=== PATIENT | male | born 1945 ===

== ENCOUNTER 2016-08-23 09:31 | Emergency (ER) | payer OTHER ==
[2016-08-23 09:39] VITALS: RESP 18; O2SAT 100
--- NOTE | 2016-08-23 10:08 | C.PDOC ---
History Of Present Illness Patient is a 71 y/o male, with PMHx of HTN, is accompanied by family to the ED for evaluation of left knee and leg pain for the last month. Patient reports uneasiness to walk on left side, he feels "knee is going to give out". Of note, patient walks with a cane. Additionally, patient reports intermittent dizziness for the past week, and states his BP was high in the "200s" when he checked. As per family, they recently moved here, and therefore, do not have a PMD yet, and was unable to fill patient's meds here. Patient ran out of his meds 2 months ago. Otherwise, patient denies headache, current dizziness, weakness, numbness, chest pain, palpitations, shortness of breath, abdominal pain, nausea, fever, chills, or any other associated symptoms at this time. Time Seen by Provider: 08/23/16 09:46 Chief Complaint (Nursing): Lower Extremity Problem/Injury History Per: Patient History/Exam Limitations: no limitations Onset/Duration Of Symptoms: Days (1 month) Current Symptoms Are (Timing): Still Present Recent travel outside of the [place]: No Additional History Per: Family Past Medical History Reviewed: Historical Data, Nursing Documentation, Vital Signs Vital Signs: Last Vital Signs Temp 98 F 08/23/16 11:43 Pulse 89 08/23/16 11:43 Resp 18 08/23/16 11:43 BP 158/80 H 08/23/16 11:43 Pulse Ox 100 08/23/16 11:43 - Medical History PMH: Atrial Fibrillation, HTN, Hyperlipidemia, Seizures Family History: States: Unknown Family Hx - Social History Hx Alcohol Use: No Hx Substance Use: No - Immunization History Hx Tetanus Toxoid Vaccination: No Hx Influenza Vaccination: No Hx Pneumococcal Vaccination: No Review Of Systems Except As Marked, All Systems Reviewed And Found Negative. Constitutional: Negative for: Fever, Chills Cardiovascular: Negative for: Chest Pain, Palpitations Respiratory: Negative for: Cough, Shortness of Breath Gastrointestinal: Negative for: Nausea, Vomiting, Abdominal Pain Musculoskeletal: Positive for: Leg Pain (left) Neurological: Positive for: Dizziness. Negative for: Weakness, Numbness, Headache Physical Exam - Physical Exam Appears: Non-toxic, No Acute Distress Skin: Normal Color, Warm, Dry Head: Atraumatic, Normacephalic Eye(s): bilateral: Normal Inspection, PERRL, EOMI Nose: Normal Oral Mucosa: Moist Neck: Normal ROM, Supple Chest: Symmetrical, No Deformity, No Tenderness Cardiovascular: Rhythm Regular, No Murmur Respiratory: Normal Breath Sounds, No Rales, No Rhonchi, No Wheezing Gastrointestinal/Abdominal: Soft, No Tenderness Extremity: Normal ROM (FROM to all extremities), No Tenderness (no left knee or leg tenderness), No Pedal Edema, No Calf Tenderness, Capillary Refill (< 2 sec.) , No Swelling Pulses: Left Dorsalis Pedis: Normal, Right Dorsalis Pedis: Normal Neurological/Psych: Oriented x3, Normal Speech, Normal Cognition, Normal Motor, Normal Sensation Gait: With Assistance ED Course And Treatment - Laboratory Results Result Diagrams: 08/23/16 10:43 08/23/16 10:43 Lab Interpretation: No Acute Changes ECG: Interpreted By Me, Viewed By Me (Dr Demarco) ECG Rhythm: Atrial Fibrillation, R BBB ECG Interpretation: No Acute Changes Interpretation Of ECG: Afib at 90 bpm with RBB and left anterior fascicular block. No old EKG available for comparison O2 Sat by Pulse Oximetry: 100 (on RA) Pulse Ox Interpretation: Normal - Other Rad Left knee X-Ray: Interpreted by Me, Viewed By Me Interpretation: no effusion, no fracture or other abnormality Progress Note: Labs, EKG, left knee x-ray ordered and reviewed. Labs reviewed showing hypokalemia and low phenytoin level. Patient further treated with KCL and phenytoin. All other labs WNL. EKG shows Afib, no priors available. Family reports he used to take warfarin now takes plavix. Patient reevalauted and is resting in no distress. He has no chest pain or SOB, no dizziness or other complaints. Patient is stable for discharge. Recommend analgesics for any leg pain. Family is requesting refill on all meds, Rx was given. Instruct patient and family important to follow up in the clinic. Disposition Counseled Patient/Family Regarding: Studies Performed, Diagnosis, Need For Followup, Rx Given - Disposition Referrals: [facility] at [facility] [Outside] Disposition: HOME/ ROUTINE Disposition Time: 11:19 Condition: STABLE Additional Instructions: Vaya a blakely mdico o la clnica en 2-5 barakat sin falta, para mas evaluacin. Dundarrach los medicamentos katy indicado. Volver a la kalie de emergencia en cualquier momento si los sntomas persisten o empeoran. Prescriptions: Losartan [Cozaar] 100 mg PO DAILY #30 tab Phenytoin, Extended [Dilantin Kapseals] 100 mg PO TID #60 cer Chlorthalidone [Hygroton] 25 mg PO DAILY #30 tab Atorvastatin [Lipitor] 20 mg PO DAILY #30 tab Metoprolol Tartrate [Lopressor] 25 mg PO DAILY #30 tab NIFEdipine ER [Nifedipine ER] 60 mg PO DAILY #30 ter Instructions: Medicine Refill (ED), Knee Pain (ED) Print Language: HEBREW - POA Present On Arrival: None - Clinical Impression Clinical Impression: Knee pain, left, Medicine refill - PA / RN CARDIOVASCULAR / Resident Statement MD/DO has reviewed & agrees with the documentation as recorded. - Scribe Statement The provider has reviewed the documentation as recorded by the Scribe Chacho Vines All medical record entries made by the Scribe were at my direction and personally dictated by me. I have reviewed the chart and agree that the record accurately reflects my personal performance of the history, physical exam, medical decision making, and the department course for this patient. I have also personally directed, reviewed, and agree with the discharge instructions and disposition.
[2016-08-23 10:51] LABS: RBC URINE 1 /hpf (0-3); URINE BILIRUBIN NEGATIVE (NEGATIVE); URINE BLOOD NEGATIVE (NEGATIVE); URINE COLOR Yellow (YELLOW); URINE GLUCOSE (UA) NORMAL (Normal); URINE KETONE NEGATIVE (NEGATIVE); URINE LEUKOCYTE ESTERASE NEG Leu/uL (Negative); URINE PROTEIN NEGATIVE (NEGATIVE); URINE UROBILINOGEN NORMAL mg/dL (0.2-1.0); WBC URINE < 1 /hpf (0-5)
[2016-08-23 10:53] LABS: BASO % 0.5 % (0.0-2.0); EOS # 0.1 K/uL (0.0-0.7); EOS % 1.6 % (0.0-4.0); LYMPH # 0.9 K/uL (1.0-4.3); LYMPH % 20.3 % (20.0-40.0); MEAN CELL VOLUME 78.8 fL (80.0-94.0); MEAN CORPUSCULAR HEMOGLOBIN 26.3 pg (27.0-31.0); MEAN CORPUSCULAR HGB CONC 33.4 g/dL (33.0-37.0); MEAN PLATELET VOLUME 8.9 fL (7.2-11.7); MONO # 0.4 K/uL (0.0-0.8); MONO % 9.7 % (0.0-10.0); NRBC % 0.1 % (0.0-2.0); RED CELL DISTRIBUTION WIDTH 14.3 % (11.5-14.5); WHITE BLOOD COUNT 4.6 K/uL (4.8-10.8)
[2016-08-23 10:58] LABS: CHLORIDE 99 mmol/L (98-107); INR 1.2; SODIUM 140 mmol/L (132-148)
[2016-08-23 10:59] LABS: POTASSIUM 3.1 mmol/L (3.6-5.2)
[2016-08-23 11:01] LABS: ALB/GLOB RATIO 1.3 (1.0-2.1); ALKALINE PHOSPHATASE 68 U/L (38-126); ALT/SGPT 27 U/L (21-72); AST/SGOT 28 U/L (17-59); BILIRUBIN,TOTAL 0.3 mg/dL (0.2-1.3); BLOOD UREA NITROGEN 15 mg/dL (9-20); CARBON DIOXIDE 26 mmol/L (22-30); GFR AFRICAN-AMERICAN > 60; GLUCOSE,RANDOM 61 mg/dL (75-110); TOTAL PROTEIN 6.7 g/dL (6.3-8.3)
[2016-08-23 11:02] LABS: CALCIUM 8.5 mg/dl (8.6-10.4)
[2016-08-23] MEDS ORDERED: Potassium Chloride 20 mEq ER Tab PO STA (11:03)
[2016-08-23] MEDS ORDERED: Potassium Chloride 20 mEq/15 ml LIQ UD ONE (11:34)
[2016-08-23 11:45] VITALS: BP 158/80; PULSE 89; TEMP 98
--- NOTE | 2016-08-23 15:33 | RAD ---
PROCEDURE: Left knee dated 08/23/2016 HISTORY: pain for 1 month COMPARISON: No prior study available for comparison TECHNIQUE: Three views of the left knee performed. FINDINGS: No evidence of acute displaced fracture nor dislocation. Osseous structures appear intact. Joint space preserved. Suspect trace joint effusion. IMPRESSION: No evidence of acute displaced fracture nor dislocation.
--- NOTE | 2016-08-24 22:20 | CARD ---
APPROVED REPORT EKG Measurement Heart [id number] <Conclusion> Atrial fibrillation Right bundle branch block Left anterior fascicular block Bifascicular block Voltage criteria for left ventricular hypertrophy Cannot rule out Inferior infarct, age undetermined T wave abnormality, consider lateral ischemia Abnormal ECG
== END 2016-08-23 11:46 | disposition home or self-care (01) ==
LOC: C.ER 09:31
DX: M25.562 Pain in left knee (principal); Z76.0 Encounter for issue of repeat prescription; E87.6 Hypokalemia

== ENCOUNTER 2016-10-07 10:03 | Emergency (ER) | payer OTHER ==
[2016-10-07 10:12] VITALS: TEMP 98.1
--- NOTE | 2016-10-07 10:30 | C.PDOC ---
History Of Present Illness A 71 year old male presents to the emergency room requesting medication (Plavix , Dilantin, & Losartan) refills again. [place] and ran out of medication a few days ago. Patient has not made an arrangement to see a physician yet, prompting this ER visit. Patient denies any active complaints at this time. Time Seen by Provider: 10/07/16 10:26 Chief Complaint (Nursing): Med Refill History Per: Patient History/Exam Limitations: no limitations Onset/Duration Of Symptoms: Unknown Current Symptoms Are (Timing): Gone Severity: None Recent travel outside of the [place]: No Past Medical History Reviewed: Historical Data, Nursing Documentation, Vital Signs Vital Signs: Last Vital Signs Temp 98.1 F 10/07/16 10:10 Pulse 72 10/07/16 11:14 Resp 18 10/07/16 11:14 BP 165/75 H 10/07/16 11:14 Pulse Ox 97 10/07/16 11:46 - Medical History PMH: Atrial Fibrillation, HTN, Hyperlipidemia, Seizures Family History: States: Unknown Family Hx - Social History Hx Alcohol Use: No Hx Substance Use: No - Immunization History Hx Tetanus Toxoid Vaccination: No Hx Influenza Vaccination: No Hx Pneumococcal Vaccination: No Review Of Systems Except As Marked, All Systems Reviewed And Found Negative. Physical Exam - Physical Exam Appears: Well, Non-toxic, No Acute Distress Skin: Normal Color, Warm, Dry, No Rash Neurological/Psych: Oriented x3, Normal Speech, Normal Cognition Gait: Steady ED Course And Treatment O2 Sat by Pulse Oximetry: 97 Progress Note: Patient given prescription for medications requested. Patient was seen by a patient field sales representative who facilitated the patient's first clinic appointment for ongoing Rx renewals. Disposition - Disposition Disposition: HOME/ ROUTINE Disposition Time: 10:53 Condition: GOOD Additional Instructions: Make an apt at the clinic for med refills Prescriptions: Clopidogrel [Plavix] 1 tab PO DAILY #30 tab Losartan Potassium 1 tab PO DAILY #30 tablet Phenytoin, Extended [Dilantin Kapseals] 1 cap PO TID #90 cer Forms: Gen Discharge Inst Stateless - Clinical Impression Clinical Impression: Medicine refill - Scribe Statement The provider has reviewed the documentation as recorded by the Scribe James Oates All medical record entries made by the Scribray were at my direction and personally dictated by me. I have reviewed the chart and agree that the record accurately reflects my personal performance of the history, physical exam, medical decision making, and the department course for this patient. I have also personally directed, reviewed, and agree with the discharge instructions and disposition.
[2016-10-07 11:15] VITALS: BP 165/75; PULSE 72; RESP 18
[2016-10-07 11:43] VITALS: O2SAT 97
== END 2016-10-07 11:16 | disposition home or self-care (01) ==
LOC: C.ER 10:03
DX: Z76.0 Encounter for issue of repeat prescription (principal)

== ENCOUNTER 2017-02-04 09:32 | Inpatient (IN) | payer MEDICAID, OTHER ==
[2017-02-04 10:37] LABS: RBC URINE 6 /hpf (0-3); URINE BILIRUBIN NEGATIVE (NEGATIVE); URINE COLOR Yellow (YELLOW); URINE GLUCOSE (UA) 1+ mg/dL (Normal); URINE KETONE NEGATIVE (NEGATIVE); URINE LEUKOCYTE ESTERASE NEG Leu/uL (Negative); URINE PROTEIN 2+ mg/dL (NEGATIVE); URINE UROBILINOGEN NORMAL mg/dL (0.2-1.0); WBC URINE 1 /hpf (0-5)
[2017-02-04 10:38] LABS: CHLORIDE 102 mmol/L (98-107); POTASSIUM 3.6 mmol/L (3.6-5.2); SODIUM 138 mmol/L (132-148)
[2017-02-04 10:40] LABS: BILIRUBIN,TOTAL 0.5 mg/dL (0.2-1.3); GFR AFRICAN-AMERICAN > 60; URINE BLOOD 1+ (NEGATIVE)
[2017-02-04 10:41] LABS: ALKALINE PHOSPHATASE 93 U/L (38-126); ALT/SGPT 68 U/L (21-72); AST/SGOT 68 U/L (17-59); BLOOD UREA NITROGEN 18 mg/dL (9-20); CALCIUM 8.3 mg/dl (8.6-10.4); CARBON DIOXIDE 21 mmol/L (22-30); GLUCOSE,RANDOM 160 mg/dL (75-110); TOTAL PROTEIN 6.5 g/dL (6.3-8.3)
[2017-02-04 10:51] LABS: BASO % 0.2 % (0.0-2.0); EOS % 0.4 % (0.0-4.0); HEMATOCRIT 43.7 % (35.0-51.0); LYMPH # 0.7 K/uL (1.0-4.3); LYMPH % 8.6 % (20.0-40.0); MEAN CELL VOLUME 78.3 fL (80.0-94.0); MEAN CORPUSCULAR HGB CONC 33.2 g/dL (33.0-37.0); MEAN PLATELET VOLUME 8.4 fL (7.2-11.7); MONO # 1.3 K/uL (0.0-0.8); PLATELET COUNT 155 K/uL (130-400); RED CELL DISTRIBUTION WIDTH 17.4 % (11.5-14.5); WHITE BLOOD COUNT 8.5 K/uL (4.8-10.8)
[2017-02-04 11:12] LABS: NEUTROPHIL 65 % (50-75); TOTAL CELLS COUNTED 100
[2017-02-04] MEDS ORDERED: Sodium Chloride 0.9% 1,000 ML IV ONE (12:09)
--- NOTE | 2017-02-04 12:44 | C.PDOC ---
History Of Present Illness 71 year old male presents to the ED with complaints of bodyaches, generalized weakness, decrease in appetite, and bilateral leg pain (left>right) for approximately five days. He denies chest pain, shortness of breath, abdominal pain, nausea, vomiting, diarrhea, or dysuria. Patent has not tried any pain medication at home. Time Seen by Provider: 02/04/17 09:54 Chief Complaint (Nursing): Lower Extremity Problem/Injury History Per: Patient History/Exam Limitations: no limitations Onset/Duration Of Symptoms: Days Current Symptoms Are (Timing): Still Present Severity: Moderate Past Medical History Reviewed: Historical Data, Nursing Documentation, Vital Signs Vital Signs: Last Vital Signs Temp 98.4 F 02/06/17 04:00 Pulse 94 H 02/06/17 11:51 Resp 13 02/06/17 11:51 BP 136/80 02/06/17 11:51 Pulse Ox 100 02/06/17 18:08 - Medical History PMH: Atrial Fibrillation, HTN, Hyperlipidemia, Seizures Family History: States: No Known Family Hx - Social History Hx Alcohol Use: No Hx Substance Use: No - Immunization History Hx Tetanus Toxoid Vaccination: No Hx Influenza Vaccination: No Hx Pneumococcal Vaccination: No Review Of Systems Except As Marked, All Systems Reviewed And Found Negative. Constitutional: Positive for: Weakness (generalized), Other ( body aches and decreased appetite). Negative for: Fever, Chills Cardiovascular: Negative for: Chest Pain, Palpitations Respiratory: Negative for: Cough, Shortness of Breath Gastrointestinal: Negative for: Nausea, Vomiting, Abdominal Pain Genitourinary: Negative for: Dysuria Musculoskeletal: Positive for: Leg Pain (bilateral leg pain, left greater than the right.) Skin: Negative for: Rash Physical Exam - Physical Exam Appears: Well, Non-toxic, No Acute Distress Skin: Warm, Dry Head: Normacephalic Eye(s): bilateral: Normal Inspection Oral Mucosa: Moist Neck: Supple Cardiovascular: Rhythm Regular Respiratory: Normal Breath Sounds, No Rales, No Rhonchi, No Wheezing Gastrointestinal/Abdominal: Normal Exam, Bowel Sounds, Soft, No Tenderness Extremity: Normal ROM, Calf Tenderness (bilateral calf tenderness L>R), Capillary Refill (< 2 sec all digits ), No Deformity, No Swelling, Other (no erythema ) Pulses: Left Dorsalis Pedis: Normal, Right Dorsalis Pedis: Normal Neurological/Psych: Oriented x3, Normal Motor, Normal Sensation ED Course And Treatment - Laboratory Results Result Diagrams: 02/06/17 05:36 02/06/17 05:36 ECG: Interpreted By Me, Viewed By Me (atrial fibrillation 94 bpm, left axis deviation, RBBB, LVH, no acute ST changes) ECG Interpretation: Abnormal O2 Sat by Pulse Oximetry: 100 (room air ) Pulse Ox Interpretation: Normal Progress Note: Blood work, venous doppler ordered and reviewed. Patient given IV NS bolus, IV toradol. As per instrumentation and control technician, Venous Doppler showed no DVT of the bilateral lower extremities and an incidental finding of left popliteal artery is occluded. Patient has pedal pulses B/L, will hold off on anticoagulation at this point until vascular consult/recommendation. - Physician Consult Information Physician Contacted: Alexandra Skinner Outcome Of Conversation: Discussed patient with Dr. Skinner, agrees with admission for elevated ck, rhabdomyolysis, occluded left popliteal artery. Dr. Kaur consulted. Disposition - Disposition Disposition: HOSPITALIZED Disposition Time: 12:46 Condition: STABLE - Clinical Impression Clinical Impression: Popliteal artery occlusion, left, Elevated CK, Rhabdomyolysis - Scribe Statement The provider has reviewed the documentation as recorded by the Scribe Jasmina Wall All medical record entries made by the Scribe were at my direction and personally dictated by me. I have reviewed the chart and agree that the record accurately reflects my personal performance of the history, physical exam, medical decision making, and the department course for this patient. I have also personally directed, reviewed, and agree with the discharge instructions and disposition. Decision To Admit - Pt Status Changed To: Hospital Disposition Of: Inpatient - Admit Certification Admit to Inpatient:: After my assessment, the patient will require hospitalization for at least two midnights. This is because of the severity of symptoms shown, intensity of services needed, and/or the medical risk in this patient being treated as an outpatient. - InPatient: Physician Admission Certification: I certify that this patient requires 2 or more midnights of care for the following reason:: see notes - . Bed Request Type: Regular Admitting Physician: Alexandra Skinner Patient Diagnosis: Popliteal artery occlusion, left, Elevated CK, Rhabdomyolysis
[2017-02-04 13:06] LABS: INR 1.3
[2017-02-04] MEDS ORDERED: Heparin25000 units/250ml 1/2NS 25,000 UNITS/250 ML BAG IV PRN ×2 (15:16→20:59)
--- NOTE | 2017-02-04 16:27 | CP.PCM.HP ---
<Luci FloydDaniel - Last Filed: 02/04/17 17:21> History of Present Illness - History of Present Illness History of Present Illness: HPI: Patient is a 71 year old male with a PMHx of atrial fibrillation, HTN, strokes and epilepsy who presents with left leg pain for 1 day. Pain started in his left calf and radiates up to his thigh. Ambulating makes the pain worse. Patient said he was in tears due to the pain. Patient describes the pain as a "cramping". Patient uses a cane to walk. Patient is not a reliable historian but mentioned that he lives with his daughter and she told him to come to the ER after a possible fall. Patient explains that he has had hypertension for a long time and used to measure his blood pressure at home but does not recently. He says his pressure has been up to 200 systolic in the past. Patient says his last seizure was one year ago. Patient denies headache, dizziness, lightheadedness, cough, abdominal pain, nausea, vomiting, recent illness, or recent travel. As per daughter Pura Arshad ([phone]): Patient has had pain since Thursday on the right leg radiating down. Patient tried taking tylenol, motrin and using warm compresses with no relief. Patient had no appetite Thursday and subjective fevers. Thursday night the pain was so bad that the daughter decided to bring him to the hospital. 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 Patient was on coumadin/ warfarin in the past but was stopped for unknown reason in 2013. PMD: [facility] PMHx: Atrial fibrillation, HTN, Epilepsy, strokes x 10 PSHx: possible Cardiac cath in 1998, patient does not remember the results FHx: Mother had COPD and from pneumonia, Father had SD at 60 years old Social: Denies tobacco and drug use. Patient used to drink socially. Patient lives at home with his and daughter. 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, says he breathed in a lot of smoke during his time working Home Meds: (as per clinic record) Chlorthalidone: 25 mg daily Cozaar: 100 mg daily Dilantin: 100 mg TID Nifedipine: 60 mg daily Lipitor: 20 mg daily Metoprolol tartrate: 25 mg BID Plavix: 75 mg daily Present on Admission - Present on Admission Any Indicators Present on Admission: No History of DVT/PE: No History of Uncontrolled Diabetes: No Urinary Catheter: No Decubitus Ulcer Present: No Review of Systems - Constitutional Constitutional: absent: Fever, Headache, Night Sweats - EENT Eyes: absent: Change in Vision, Diplopia Ears: absent: Decreased Hearing Nose/Mouth/Throat: absent: Nasal Congestion, Sore Throat - Cardiovascular Cardiovascular: Claudication. absent: Chest Pain, Diaphoresis, Leg Edema, Palpitations - Respiratory Respiratory: Cough. absent: Wheezing - Gastrointestinal Gastrointestinal: Diarrhea. absent: Abdominal Pain, Constipation Additional comments: Diarrhea occasionally after milk products - Genitourinary Genitourinary: absent: Difficulty Urinating, Dysuria, Hematuria - Musculoskeletal Musculoskeletal: Muscle Cramps, Myalgias - Integumentary Integumentary: Change in Pigmentation Additional comments: skin color changes on legs bilaterally - Neurological Neurological: absent: Dizziness, Headaches, Lack of Coordination - Endocrine Endocrine: absent: Fatigue, Palpitations Past Patient History - Infectious Disease Hx of Infectious Diseases: None - Past Social History Smoking Status: Never Smoked - CARDIAC Hx Atrial Fibrillation: Yes Hx Hypertension: Yes - NEUROLOGICAL Hx Seizures: Yes - PSYCHIATRIC Hx Substance Use: No - SURGICAL HISTORY Hx Surgeries: Yes Hx Cardiac Catheterization: Yes Meds Allergies/Adverse Reactions: Allergies Allergy/AdvReac Type Severity Reaction Status Date / Time No Known Allergies Allergy Verified 10/07/16 10:15 Physical Exam - Constitutional Appears: Non-toxic, No Acute Distress - Head Exam Head Exam: ATRAUMATIC, NORMAL INSPECTION, NORMOCEPHALIC - Eye Exam Eye Exam: EOMI, Normal appearance - ENT Exam ENT Exam: Mucous Membranes Moist - Neck Exam Neck exam: Positive for: Full Rom. Negative for: Lymphadenopathy - Respiratory Exam Respiratory Exam: Clear to Auscultation Bilateral, NORMAL BREATHING PATTERN. absent: Rales, Rhonchi, Wheezes, Respiratory Distress, Stridor - Cardiovascular Exam Cardiovascular Exam: REGULAR RHYTHM, RRR. absent: Gallop, Rubs, Systolic Murmur - GI/Abdominal Exam GI & Abdominal Exam: Normal Bowel Sounds, Soft. absent: Distended, Firm, Guarding, Tenderness - Extremities Exam Extremities exam: Positive for: calf tenderness, full ROM, tenderness. Negative for: pedal pulses present Additional comments: b/l feet cold to touch - Neurological Exam Neurological exam: Alert, Oriented x3 - Psychiatric Exam Psychiatric exam: Normal Affect, Normal Mood - Skin Skin Exam: Intact, Petechiae Results - Vital Signs Recent Vital Signs: Last Vital Signs Temp 97.8 F 02/04/17 14:59 Pulse 88 02/04/17 15:01 Resp 22 02/04/17 14:59 BP 150/80 02/04/17 14:59 Pulse Ox 99 02/04/17 13:19 - Labs Result Diagrams: 02/04/17 10:47 02/04/17 10:20 Labs: Laboratory Results - last 24 hr 02/04/17 02/04/17 12:52 12:52 PT 14.6 H INR 1.3 APTT 27 Phenytoin 3.6 L Assessment & Plan - Assessment and Plan (Free Text) Assessment: 1. B/L lower extremity pain venous doppler: no DVT, incidental finding of left popliteal artery occluded Vascular surgery, Dr. Kaur consulted, help appreciated CT b/l lower extremities as per Dr. Kaur 2. Uncontrolled HTN Hydralazine 10 mg IVP in ED Troponin:.0900 CK-MB :9.99 Creatinine Kinase: 2158 continue Chlorthalidone 25 mg daily continue Cozaar 100mg daily continue Nifedipine 60 mg daily f/u pro BNP f/u CK-MB f/u lipid profile f/u HgA1c f/u 2nd troponin 3. History of Afib continue Metoprolol Tartrate 25 mg BID cardiology consulted, Dr. Brown, help appreciated Echo on : LVEF- 59% 4. History of Seizure Disorder Continue home medication Dilantin [address] head w/o contrast due to possible fall seizure precautions 5. Prophylactic Measures Pepcid 20mg daily Start Heparin Drip after CT head comes back negative <Alexandra Skinner V - Last Filed: 02/04/17 21:27> Results - Vital Signs Recent Vital Signs: Last Vital Signs Temp 97.8 F 02/04/17 16:00 Pulse 108 H 02/04/17 16:00 Resp 20 02/04/17 16:00 BP 161/83 H 02/04/17 16:00 Pulse Ox 97 02/04/17 16:00 - Labs Result Diagrams: 02/04/17 10:47 08/30/17 10:20 Labs: Laboratory Results - last 24 hr 02/04/17 02/04/17 02/04/17 12:52 12:52 17:11 PT 14.6 H INR 1.3 APTT 27 CK-MB (Mass) 11.1 H Troponin I 0.1190 NT-Pro-B Natriuret Pep 1720 H Phenytoin 3.6 L Attending/Attestation - Attestation I have personally seen and examined this patient.: Yes I have fully participated in the care of the patient.: Yes I have reviewed all pertinent clinical information: Yes Notes (Text): Patient seen, examined and case discussed with day-time resident. Patient is primarily Bulgarian speaking reporting right leg pain and left leg pain which are bothering him. Unclear initially if patient fell at home. Patient does not know his history at time of initial exam. I spoke with his daughter Pura at around 4:30PM to further clarify his history and what brought him in the hospital; since Thursday patient reports prominent leg pains which interfere with ambulation. Family had attempted Tylenol/Motrin for pain relief but did not improve. Daughter had tried warm compresses over the right leg but did not improve. By Thursday, patient did not have much of appetite and daughter reports he had a fever at home. Daughter attributed the fever to the patient's leg and thought it was infected. Last night, she reports the pain was so bad that the patient was moaning in pain that she had to bring him to the hospital. Patient lives with daughter and in apartment, patient did not fall. Patient has hx of arrhythmia per daughter that at one point required Coumadin. She reports patient used to go get INR checks but Coumadin was stopped, but not by doctor in 2013. Patient has hx of multiple strokes, per daughter, 10; last stroke about 2 years ago, resulting in left sided paralysis/weakness per the daughter and patient suffered blindness for 3 months and improved with prescription glasses. Patient also had history of seizures, last seizure about 2 years ago. When I asked about aspirin use, patient's daughter denied patient taking aspirin but no allergy to aspirin. Patient's medication including: Plavix, Dilantin, Lipitor and some medications for blood pressure, which she reports he took today prior coming to hospital today. Patient's clinic EMR reviewed to get further history since patient initially poor historian. Assessment/Plan 1. B/L lower extremity pain * Etiology to consider: peripheral arterial disease; possible rhabdomyolysis * venous doppler: no DVT, incidental finding of left popliteal artery occluded * Vascular surgery, Dr. Kaur consulted, help appreciated * I discussed with vascular suite regarding results of arterial dopplers showing clotting in bilateral legs. Spoke with Dr. Kaur recommend CT of lower extremity (circulation) to further imaging patient's circulation. Discussed with Dr. Kaur later this evening regards results of f/u CT and had spoken with the family including daughter, patient will require surgical intervention (given clotting legs) for OR tomorrow. 2. Uncontrolled HTN * Cardiology consult: Dr. Brown * Likely influenced by pain; hx of hypertension; takes Metoprolol at home?. Per clinic EMR patient is also on Chlorthalidone 25mg daily, Cozaar 100mg PO daily, and Nifedipine 60mg Po daily 3. History of Atrial Fibrillation * cardiology consulted, Dr. Brown, help appreciated * continue Metoprolol Tartrate 25 mg BID * Echo on : LVEF- 59% * Ordered for repeat echocardiogram; patient denies chest pain, denies palpitations; Patient is not on anticoagulation for hx of atrial fibrillation * CHADS: 4: high risk of thromboembolic event; 8.5% risk of event per year if no coumadin * HASBLED: 2 (stroke; age; blood pressure is uncontrolled day but suspect due to pain after conversation with the daughter) * ordered for hgba1c, probnp 4. History of Seizure Disorder * Continue home medication Dilantin 100 mg TID * CT head w/o contrast due to questionable fall-->patient completed CT head * CT Head: no evidence of acute intracranial hemorrhage. Large foci of encephalomalcia in brain suggestive of old infarction. Largest encephalomalacia seen at the right temporal parietal frontal love. Moderate aatrophy and moderate to extensive white mater changes suggestive of chronic microvascular ischemic disease * seizure precautions 5. History of multiple strokes * CT Head: no evidence of acute intracranial hemorrhage. Large foci of encephalomalcia in brain suggestive of old infarction. Largest encephalomalacia seen at the right temporal parietal frontal love. Moderate aatrophy and moderate to extensive white mater changes suggestive of chronic microvascular ischemic disease * Patient per home meds: on statin (lipitor), plavix, and anti-hypertensives * Has residual left side weakness since last stroke 2 years ago where his vision was affected and improved with prescription glasses * Order for a1c, lipid panel, hypercoaguable workup 6. Prophylactic Measures * Pepcid 20mg daily for GI ppx * Start Heparin Drip for anticoagulation given patient has risk of stroke given his atrial fibrillation and patient has acutely clotted peripheral vasculture b/ l; Patient to be scheduled for OR tomorrow per vascular surgery. Patient cannot have thrombolysis given both lower extremities are affected per vascular surgery. * Awaiting official reports
--- NOTE | 2017-02-04 16:39 | CP.PCM.CON ---
History of Present Illness - History of Present Illness History of Present Illness: Patient is a 71 year old male with medical history of atrial fibrillation, HTN, presents to the ED with complaints of bilateral leg pain, right greater than leg , for 4 days. He reports nothing makes it better or worse. Patient currently has pain in his right calf. He denies having leg pains prior to this episode. In the ED, venous duplex was ordered and showed no DVTs and an incidental finding of an occluded left popliteal artery. Patient currently denies chest pain, abdominal pain, difficulty breathing, n/v/d/c, and headaches. PMHx: (as per previous medical records) atrial fibrillation, HTN, hypercholesterolemia, seizures SurgHx: cardiac catheterization, 1998 FamHx: Father- [place] SocHx: denies tobacco, alcohol, and drug use. Allergies: NKDA Medications: "takes medication for heart" does not know what his medications are for, gives them to him daily. Medication as per EMR: Lipitor, Hygroton, Plavix, Cozaar, Metoprolol tartrate, Nifedipine, Phenytoin, Warfarin Review of Systems - Constitutional Constitutional: absent: Fever, Headache - Cardiovascular Cardiovascular: absent: Chest Pain, Dyspnea - Respiratory Respiratory: Dyspnea on Exertion. absent: Dyspnea - Gastrointestinal Gastrointestinal: absent: Abdominal Pain, Constipation, Diarrhea, Nausea - Musculoskeletal Additional comments: leg pain, Right > left; right calf pain - Neurological Neurological: absent: Dizziness, Headaches Past Patient History - Infectious Disease Hx of Infectious Diseases: None - Past Social History Smoking Status: Never Smoked - CARDIAC Hx Atrial Fibrillation: Yes Hx Hypertension: Yes - NEUROLOGICAL Hx Seizures: Yes - PSYCHIATRIC Hx Substance Use: No - SURGICAL HISTORY Hx Surgeries: Yes Hx Cardiac Catheterization: Yes Meds Allergies/Adverse Reactions: Allergies Allergy/AdvReac Type Severity Reaction Status Date / Time No Known Allergies Allergy Verified 10/07/16 10:15 - Medications Medications: Current Medications Chlorthalidone (Hygroton) 25 mg PO DAILY EBONY Famotidine (Pepcid) 20 mg PO DAILY EBONY Losartan Potassium (Cozaar) 100 mg PO DAILY [facility] Metoprolol Tartrate (Lopressor) 25 mg PO DAILY [facility] Nifedipine (Procardia Xl) 60 mg PO DAILY EBONY Phenytoin Sodium (Dilantin) 100 mg PO TID EBONY Physical Exam - Head Exam Head Exam: ATRAUMATIC, NORMAL INSPECTION - Eye Exam Eye Exam: EOMI, Normal appearance - ENT Exam ENT Exam: Mucous Membranes Moist - Respiratory Exam Respiratory Exam: Decreased Breath Sounds, Clear to Auscultation Bilateral. absent: Rales, Rhonchi, Wheezes - Cardiovascular Exam Cardiovascular Exam: Irregular Rhythm, +S1, +S2. absent: REGULAR RHYTHM - GI/Abdominal Exam GI & Abdominal Exam: Normal Bowel Sounds. absent: Soft, Tenderness - Extremities Exam Extremities exam: Positive for: calf tenderness (right calf), pedal edema, pedal pulses present (diminished posterior tibialis and dorsalis pedis) - Neurological Exam Neurological exam: Alert, Oriented x3 - Psychiatric Exam Psychiatric exam: Normal Affect, Normal Mood - Skin Skin Exam: Dry, Intact, Normal Color, Warm Results - Vital Signs Recent Vital Signs: Last Vital Signs Temp 97.8 F 02/04/17 14:59 Pulse 88 02/04/17 15:01 Resp 22 02/04/17 14:59 BP 150/80 02/04/17 14:59 Pulse Ox 99 02/04/17 13:19 - Labs Result Diagrams: 02/04/17 10:47 02/04/17 10:20 Labs: Laboratory Results - last 24 hr 02/04/17 02/04/17 12:52 12:52 PT 14.6 H INR 1.3 APTT 27 Phenytoin 3.6 L Assessment & Plan - Assessment and Plan (Free Text) Assessment: 71 year old male with past medical history of afib, htn, is consulted for incidental finding of left occluded popliteal artery. - Venous duplex: No DVTs bilaterally; incidental finding of left occluded popliteal artery - f/u arterial duplex - f/u arterial PVR/SEG - f/u CTA of lower extremities - Continue medical management as per hospitalist team.
[2017-02-04] MEDS ORDERED: Iodixanol 320 mg/ml 150 ml Bottle IV ONE (16:58)
--- NOTE | 2017-02-04 17:49 | CT ---
PROCEDURE: CT HEAD WITHOUT CONTRAST. HISTORY: hx seizure, possible fall today COMPARISON: None available. TECHNIQUE: Axial computed tomography images were obtained through the head/brain without intravenous contrast. Radiation dose: Total exam DLP = 981.84 mGy-cm. This CT exam was performed using one or more of the following dose reduction techniques: Automated exposure control, adjustment of the mA and/or kV according to patient size, and/or use of iterative reconstruction technique. FINDINGS: HEMORRHAGE: No evidence of acute intracranial hemorrhage intracranial collection mass effect or midline shift. BRAIN: Large encephalomalacia at the left temporal frontal parietal lobe suggestive of old right MCA territory infarct. Focal encephalomalacia also noted at the left posterior parietal occipital lobe suggestive of old infarct. Moderate atrophy and extensive white matter changes suggestive of chronic microvascular ischemic disease. Small encephalomalacia is also noted at the right cerebellum suggestive of old infarction. VENTRICLES: The ventricles are dilated likely due to central atrophy. CALVARIUM: Unremarkable. PARANASAL SINUSES: Unremarkable as visualized. No significant inflammatory changes. MASTOID AIR CELLS: Unremarkable as visualized. No inflammatory changes. OTHER FINDINGS: None. IMPRESSION: No evidence of acute intracranial hemorrhage. Large foci of encephalomalacia in the brain suggestive of old infarction. The largest encephalomalacia seen at the right temporal parietal frontal lobe. Moderate atrophy and moderate to extensive white matter changes suggestive of chronic microvascular ischemic disease.
[2017-02-04 17:53] LABS: TROPONIN I 0.119 ng/mL (0.00-0.120)
--- NOTE | 2017-02-04 19:14 | CP.PCM.CON ---
History of Present Illness - History of Present Illness History of Present Illness: Consultatoin requested for evaluation of afib and HTN ( uncontrolled ) HPI: 71 year old male with past medical history significant for hypertension diabetes mellitus atrial fibrillation multiple recurrent TIA/CVA brought in by her daughter for complaints of right lower extremity pain and discomfort for the last 4 days. According to the daughter he had sustained a CVA with residual left-sided weakness and blindness for 3 months in 2009 he was also admitted to [place] for an episode of seizure and fall. He was apparently on anticoagulation back in 2013 at patient time he was also diagnosed with endocarditis and was maintained on IV antibiotics for 3 weeks. He now presents with bilateral lower extremity pain numbness and cold feet. He underwent a CTA showing CVA or bilateral infrageniculate disease. Dr. Kaur from vascular surgery is evaluating him to proceed to the operating room for possible thrombectomies. As per the ACC AHA guidelines he has very limited activity at baseline and will be scheduled for major vascular surgery for which she falls into high risk. He does have EKG changes with lateral wall T-wave inversions suggestive of ischemic heart disease. According to the daughter for the last 3 months his activity has been severely limited and specially in the last week since the onset of these symptoms he has been severely compromised in his inability to walk. Review of Systems - Review of Systems All systems: reviewed and no additional remarkable complaints except - Constitutional Constitutional: As Per HPI - EENT Eyes: As Per HPI Ears: As Per HPI Nose/Mouth/Throat: As Per HPI - Cardiovascular Cardiovascular: As Per HPI - Respiratory Respiratory: As Per HPI - Gastrointestinal Gastrointestinal: As Per HPI - Genitourinary Genitourinary: As Per HPI - Reproductive: Male Reproductive:Male: As Per HPI - Musculoskeletal Musculoskeletal: As Per HPI - Integumentary Integumentary: As Per HPI - Neurological Neurological: As Per HPI - Psychiatric Psychiatric: As Per HPI - Endocrine Endocrine: As Per HPI - Hematologic/Lymphatic Hematologic: As Per HPI Past Patient History - Infectious Disease Hx of Infectious Diseases: None - Past Medical History & Family History Past Medical History?: Yes Pertinent Family History: +ve for HTN and CVA - Past Social History Smoking Status: Never Smoked - CARDIAC Hx Atrial Fibrillation: Yes Hx Hypertension: Yes - PULMONARY Hx Respiratory Disorders: No - NEUROLOGICAL Hx Seizures: Yes - HEENT Hx HEENT Problems: Yes 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) - RENAL Hx Chronic Kidney Disease: No - ENDOCRINE/METABOLIC Hx Endocrine Disorders: No - HEMATOLOGICAL/ONCOLOGICAL Hx Blood Disorders: No - INTEGUMENTARY Hx Dermatological Problems: No - MUSCULOSKELETAL/RHEUMATOLOGICAL Hx Musculoskeletal Disorders: No Hx Falls: No - GASTROINTESTINAL Hx Gastrointestinal Disorders: No - GENITOURINARY/GYNECOLOGICAL Hx Genitourinary Disorders: No - PSYCHIATRIC Hx Substance Use: No - SURGICAL HISTORY Hx Surgeries: Yes Hx Cardiac Catheterization: Yes - ANESTHESIA Hx Anesthesia: Yes Hx Anesthesia Reactions: No Meds Allergies/Adverse Reactions: Allergies Allergy/AdvReac Type Severity Reaction Status Date / Time No Known Allergies Allergy Verified 10/07/16 10:15 - Medications Medications: Current Medications Chlorthalidone (Hygroton) 25 mg PO DAILY EBONY Famotidine (Pepcid) 20 mg PO DAILY EBONY Losartan Potassium (Cozaar) 100 mg PO DAILY [facility] Metoprolol Tartrate (Lopressor) 25 mg PO DAILY EBONY Nifedipine (Procardia Xl) 60 mg PO DAILY EBONY Phenytoin Sodium (Dilantin) 100 mg PO TID [facility] Last Admin: 02/04/17 17:54 Dose: 100 mg Pneumococcal Polyvalent Vaccine (Pneumovax 23 Vaccine) 0.5 ml IM .ONCE ONE Stop: 02/06/17 10:01 Physical Exam - Constitutional Appears: Well - Head Exam Head Exam: ATRAUMATIC, NORMAL INSPECTION, NORMOCEPHALIC - Eye Exam Eye Exam: EOMI, Normal appearance, PERRL Pupil Exam: NORMAL ACCOMODATION, PERRL - ENT Exam ENT Exam: Mucous Membranes Moist, Normal Exam - Neck Exam Neck exam: Positive for: Normal Inspection - Respiratory Exam Respiratory Exam: Clear to Auscultation Bilateral, NORMAL BREATHING PATTERN - Cardiovascular Exam Cardiovascular Exam: Irregular Rhythm, +S1, +S2, Systolic Murmur - GI/Abdominal Exam GI & Abdominal Exam: Normal Bowel Sounds, Soft. absent: Tenderness - Extremities Exam Extremities exam: Positive for: normal inspection, tenderness Additional comments: absent pulses, cool to touch - Back Exam Back exam: NORMAL INSPECTION - Neurological Exam Neurological exam: Alert, CN II-XII Intact, Oriented x3, Reflexes Normal - Psychiatric Exam Psychiatric exam: Flat Affect, Normal Mood - Skin Skin Exam: Dry, Intact, Mottled, Petechiae, Warm Results - Vital Signs Recent Vital Signs: Last Vital Signs Temp 97.8 F 02/04/17 16:00 Pulse 108 H 02/04/17 16:00 Resp 20 02/04/17 16:00 BP 161/83 H 02/04/17 16:00 Pulse Ox 97 02/04/17 16:00 - Labs Result Diagrams: 02/04/17 10:47 02/04/17 10:20 Labs: Laboratory Results - last 24 hr 02/04/17 02/04/17 02/04/17 12:52 12:52 17:11 PT 14.6 H INR 1.3 APTT 27 CK-MB (Mass) 11.1 H Troponin I 0.1190 NT-Pro-B Natriuret Pep 1720 H Phenytoin 3.6 L Assessment & Plan (1) Atrial fibrillation Assessment and Plan: Increased dose of metoprolol to 50 mg by mouth twice a day Keep patient on IV heparin drip and transitioned to by mouth Coumadin after surgery repeat transthoracic echocardiogram Status: Acute (2) HTN (hypertension), malignant Assessment and Plan: Continue chlorthalidone and losartan increase metoprolol to 50 mg by mouth twice a day continue nifedipine Status: Acute (3) Preop cardiovascular exam Assessment and Plan: As per ACC AHA guidelines he is at high risk for perioperative cardiovascular event secondary to severely limited functional activity and dynamic EKG changes. Status: Acute (4) Critical lower limb ischemia Assessment and Plan: Initiate patient on IV heparin and IV nitroglycerin drip plan for surgical intervention per Dr. Kaur Status: Acute
[2017-02-04] MEDS ORDERED: HYDROmorphone 1 mg/ml ISec IVP PRN (21:35)
--- NOTE | 2017-02-04 21:40 | CT ---
EXAM: CT Angiography Abdomen and Pelvis With Runoff to the Lower Extremities With Intravenous Contrast EXAM DATE/TIME: Exam ordered 02/04/2017 4:05 PM CLINICAL HISTORY: 71 years old, male; Condition or disease; Arterial embolism and thrombosis; Lower extremity; Additional info: Arterial occlusion in b/l lower extremities TECHNIQUE: Axial computed tomographic angiography images of the abdomen, pelvis and lower extremities with intravenous contrast using CT angiography protocol. All CT scans at this facility use one or more dose reduction techniques, viz.: automated exposure control; ma/kV adjustment per patient size (including targeted exams where dose is matched to indication; i.e. head); or iterative reconstruction technique. MIP reconstructed images were created and reviewed. Coronal and sagittal reformatted images were created and reviewed. CONTRAST: 150 mL of VISIPAQUE 320 administered intravenously. COMPARISON: No relevant prior studies available. FINDINGS: Lower thorax: Discoid atelectasis/scar is noted in the dependent portion of both lung bases. . There is a small hiatal hernia. VASCULATURE: Aorta: No acute findings. No abdominal aortic aneurysm. No dissection. Celiac trunk and mesenteric arteries: No acute findings. No occlusion or significant stenosis. Renal arteries: There are 2 left renal arteries. No occlusion or significant stenosis. Right iliac arteries: No acute findings. No occlusion or significant stenosis. Right femoral/popliteal arteries: There is occlusion noted of the right common femoral artery. There is occlusion of the superficial femoral artery and the popliteal artery.. The Arteries are densely calcified. Right calf/foot arteries: The trifurcation is occluded but there is reconstitution of flow in the peroneal artery via collaterals. There appears to be flow in the peroneal artery which continues to the level of the ankle. Left iliac arteries: No acute findings. No occlusion or significant stenosis. Left femoral/popliteal arteries: On the left there is atherosclerotic disease noted of the superficial femoral artery with occlusion noted at the level of the distal superficial femoral artery and popliteal artery. Left calf/foot arteries: There is a reconstitution of the tibioperoneal trunk and anterior tibial artery via collaterals below the trifurcation. The anterior tibial artery occludes in mid calf. The peroneal becomes threadlike and occludes intermittently moving distally towards the foot. There is runoff to the foot via the posterior tibial artery. ABDOMEN: Liver: 2 low density lesions are noted in the lateral segment of the left lobe of the liver measuring 1.3 CM and 0.5 CM respectively maximum diameter. It too small to characterize fully due to their small size. Gallbladder and bile ducts: Unremarkable. No calcified stones. No ductal dilation. Pancreas: Unremarkable. No ductal dilation. No mass. Spleen: Unremarkable. No splenomegaly. Adrenals: Unremarkable. No mass. Kidneys and ureters: There multiple areas of cortical thinning in the right kidney reflection of previous infection/infarction. Stomach and bowel: There is a focally abnormal loop of small bowel noted in the mid abdomen. The wall of the affected loop is mildly thickened and there are modesta-enteric inflammatory changes noted. Distally there are mildly distended small bowel loops.. Appendix: No findings to suggest acute appendicitis. PELVIS: Bladder: Unremarkable. No mass. Reproductive: Unremarkable as visualized. ABDOMEN, PELVIS and LOWER EXTREMITIES: Intraperitoneal space: Unremarkable. No significant fluid collection. No free air. Bones/joints: Degenerative changes are seen in the lumbar spine. . No dislocation. Soft tissues: Unremarkable. Lymph nodes: Unremarkable. No enlarged lymph nodes. IMPRESSION: 1. Occlusion of the right common femoral artery, superficial femoral artery, popliteal artery and popliteal trifurcation 2. Reconstitution of the right peroneal via collaterals with runoff to the foot. 3. Occlusion of the left distal superficial femoral artery and popliteal artery. Reconstitution of the left tibial peroneal trunk and anterior tibial artery via collaterals below the trifurcation. 4. Multifocal short segment disease within the anterior tibial artery and peroneal. There is one vessel runoff to the foot via the posterior tibial artery. 5. 2 low density lesions within the liver not fully characterized due to small size. 6. Focal areas of cortical atrophy in the right kidney reflecting previous infection/infarction. 7.. Focally abnormal loop of small bowel noted within the mid abdomen. The affected loop demonstrates mild wall thickening and perienteric inflammatory change. Differential diagnostic considerations include enteritis, ischemia. No focal mass is seen.
[2017-02-05] MEDS ORDERED: Heparin25000 units/250ml 1/2NS 25,000 UNITS/250 ML BAG IV PRN (01:35)
[2017-02-05] MEDS ORDERED: Nitroglycerin 50mg in D5W 50 MG/250 ML BOTTLE IV SCH (01:45)
[2017-02-05] MEDS ORDERED: Nitroglycerin 2% Ointment Foilpak UD TOP STA (02:16)
[2017-02-05 04:30] LABS: INR 1.2
[2017-02-05] MEDS: Heparin25000 units/250ml 1/2NS 25,000 UNITS/250 ML BAG IV PRN ×2 (04:58→14:01)
[2017-02-05] MEDS: Nitroglycerin 2% Ointment Foilpak UD TOP SCH ×3 (06:00→18:05)
--- NOTE | 2017-02-05 07:16 | CP.PCM.PN ---
Subjective - Date & Time of Evaluation Date of Evaluation: 02/05/17 Time of Evaluation: 07:14 - Subjective Subjective: plan to OR today on IV heparin drip for possible thromboembolism Objective - Vital Signs/Intake and Output Vital Signs (last 24 hours): Temp Pulse Resp BP Pulse Ox 98.7 F 96 H 20 144/81 97 02/05/17 06:00 02/05/17 06:00 02/05/17 06:00 02/05/17 06:00 02/05/17 06:00 Intake and Output: 02/05/17 02/05/17 06:59 18:59 Intake Total 440.2 Output Total 400 Balance 40.2 - Medications Medications: Current Medications Chlorthalidone (Hygroton) 25 mg PO DAILY [facility] Famotidine (Pepcid) 20 mg PO DAILY [facility] Hydromorphone HCl (Dilaudid) 1 mg IVP Q3H PRN PRN Reason: Pain, moderate (4-7) Last Admin: 02/04/17 21:53 Dose: 1 mg Heparin Sodium/Sodium Chloride (Heparin 58130 Units/250ml 1/2 Normal Saline) 25 ,000 units in 250 mls @ 12.701 mls/hr IV .[id number] PRN; Protocol; 14 UNITS/KG/HR PRN Reason: PROTOCOL Last Admin: 02/05/17 04:58 Dose: 14 units/kg/hr, 12.701 mls/hr Losartan Potassium (Cozaar) 100 mg PO DAILY [facility] Metoprolol Tartrate (Lopressor) 50 mg PO BIDBS [facility] Last Admin: 02/05/17 02:30 Dose: 50 mg Nifedipine (Procardia Xl) 60 mg PO DAILY [facility] Nitroglycerin (Nitro-Bid 2% Oint) 1 ea TOP Q6 [facility] Last Admin: 02/05/17 06:00 Dose: 1 ea Phenytoin Sodium (Dilantin) 100 mg PO TID [facility] Last Admin: 02/04/17 17:54 Dose: 100 mg Pneumococcal Polyvalent Vaccine (Pneumovax 23 Vaccine) 0.5 ml IM .ONCE ONE Stop: 02/06/17 10:01 - Labs Labs: PT 14.0 SECONDS (9.7-12.2) H 02/05/17 04:19 INR 1.2 02/05/17 04:19 APTT 39 SECONDS (21-34) H D 02/05/17 04:19 - Constitutional Appears: Well - Head Exam Head Exam: ATRAUMATIC, NORMAL INSPECTION, NORMOCEPHALIC - Eye Exam Eye Exam: EOMI, Normal appearance, PERRL Pupil Exam: NORMAL ACCOMODATION, PERRL - ENT Exam ENT Exam: Mucous Membranes Moist, Normal Exam - Neck Exam Neck Exam: Full ROM, Normal Inspection. absent: Lymphadenopathy - Respiratory Exam Respiratory Exam: Clear to Ausculation Bilateral, NORMAL BREATHING PATTERN - Cardiovascular Exam Cardiovascular Exam: Irregular Rhythm, RRR, +S1, +S2, Murmur - GI/Abdominal Exam GI & Abdominal Exam: Soft, Normal Bowel Sounds. absent: Tenderness - Extremities Exam Extremities Exam: Full ROM, Normal Capillary Refill, Normal Inspection, Tenderness. absent: Joint Swelling, Pedal Edema - Back Exam Back Exam: NORMAL INSPECTION - Neurological Exam Neurological Exam: Alert, Awake, CN II-XII Intact, Oriented x3 - Psychiatric Exam Psychiatric exam: Normal Affect, Normal Mood - Skin Skin Exam: Dry, Intact, Petechiae, Rash, Warm Assessment and Plan (1) Atrial fibrillation Assessment & Plan: rate controlled On metoprolol - dose increased on IV heparin Status: Acute (2) HTN (hypertension), malignant Assessment & Plan: BP stable cont with chlorthalidone, losaratan, nifedipine and metoprolol Status: Acute (3) Preop cardiovascular exam Assessment & Plan: pt high risk for perioperative cardiac event plan to OR today for thrombectomy Status: Acute (4) Critical lower limb ischemia Assessment & Plan: OR today with Status: Acute
[2017-02-05 08:00] LABS: BASO % 0.2 % (0.0-2.0); EOS # 0.1 K/uL (0.0-0.7); EOS % 1.5 % (0.0-4.0); HEMATOCRIT 41.5 % (35.0-51.0); LYMPH % 14.7 % (20.0-40.0); MEAN CELL VOLUME 78.2 fL (80.0-94.0); MEAN CORPUSCULAR HEMOGLOBIN 26.8 pg (27.0-31.0); MEAN CORPUSCULAR HGB CONC 34.2 g/dL (33.0-37.0); MEAN PLATELET VOLUME 8.7 fL (7.2-11.7); MONO % 14.8 % (0.0-10.0); RED CELL DISTRIBUTION WIDTH 17.4 % (11.5-14.5)
[2017-02-05 08:02] LABS: CHLORIDE 101 mmol/L (98-107)
[2017-02-05 08:03] LABS: SODIUM 138 mmol/L (132-148)
[2017-02-05 08:05] LABS: CHOLESTEROL 109 mg/dL (0-199)
[2017-02-05 08:06] LABS: ALB/GLOB RATIO 0.9 (1.0-2.1); ALKALINE PHOSPHATASE 89 U/L (38-126); ALT/SGPT 72 U/L (21-72); AST/SGOT 91 U/L (17-59); BILIRUBIN,TOTAL 0.5 mg/dL (0.2-1.3); BLOOD UREA NITROGEN 18 mg/dL (9-20); CARBON DIOXIDE 25 mmol/L (22-30); GFR AFRICAN-AMERICAN > 60; GLUCOSE,RANDOM 97 mg/dL (75-110)
[2017-02-05 08:07] LABS: CALCIUM 8.2 mg/dl (8.6-10.4); MAGNESIUM 2.4 mg/dL (1.6-2.3); PHOSPHOROUS 3.5 mg/dL (2.5-4.5)
[2017-02-05] MEDS: Sodium Chloride 0.9% 1,000 ML IV SCH ×2 (09:15→16:38)
--- NOTE | 2017-02-05 09:28 | CP.PCM.PN ---
<Eloisa Crowe - Last Filed: 02/05/17 18:36> Subjective - Date & Time of Evaluation Date of Evaluation: 02/05/17 Time of Evaluation: 09:25 - Subjective Subjective: Pt seen and examined at bedside with daughter at bedside to help with translation. Patient feeling much better today. Patient still having b/l leg pain more so on the right than the left. Patient says this has improved since yesterday. There was a question of fall before arrival to the hospital but pt says he has not had a seizure or fall since last year and this was confirmed with the daughter. Patient says he occasionally has diarrhea but only when he drinks milk. Patient denies CP/SOB/palpitations/AP/N/V/D/C/F/C. Objective - Vital Signs/Intake and Output Vital Signs (last 24 hours): Temp Pulse Resp BP Pulse Ox 97.8 F 68 20 141/76 96 02/05/17 08:00 02/05/17 08:00 02/05/17 08:00 02/05/17 08:00 02/05/17 08:00 Intake and Output: 02/05/17 02/05/17 06:59 18:59 Intake Total 440.2 Output Total 400 Balance 40.2 - Medications Medications: Current Medications Chlorthalidone (Hygroton) 25 mg PO DAILY [facility] Famotidine (Pepcid) 20 mg PO DAILY [facility] Hydromorphone HCl (Dilaudid) 1 mg IVP Q3H PRN PRN Reason: Pain, moderate (4-7) Last Admin: 02/04/17 21:53 Dose: 1 mg Heparin Sodium/Sodium Chloride (Heparin 81791 Units/250ml 1/2 Normal Saline) 25 ,000 units in 250 mls @ 12.701 mls/hr IV .[id number] PRN; Protocol; 14 UNITS/KG/HR PRN Reason: PROTOCOL Last Admin: 02/05/17 04:58 Dose: 14 units/kg/hr, 12.701 mls/hr Sodium Chloride (Sodium Chloride 0.9%) 1,000 mls @ 100 mls/hr IV .Q10H [facility] Losartan Potassium (Cozaar) 100 mg PO DAILY [facility] Metoprolol Tartrate (Lopressor) 50 mg PO BIDBS [facility] Last Admin: 02/05/17 02:30 Dose: 50 mg Nifedipine (Procardia Xl) 60 mg PO DAILY [facility] Nitroglycerin (Nitro-Bid 2% Oint) 1 ea TOP Q6 [facility] Last Admin: 02/05/17 06:00 Dose: 1 ea Phenytoin Sodium (Dilantin) 100 mg PO TID [facility] Last Admin: 02/04/17 17:54 Dose: 100 mg Pneumococcal Polyvalent Vaccine (Pneumovax 23 Vaccine) 0.5 ml IM .ONCE ONE Stop: 02/06/17 10:01 - Labs Labs: 02/05/17 07:35 02/05/17 07:35 PT 14.0 SECONDS (9.7-12.2) H 02/05/17 04:19 INR 1.2 02/05/17 04:19 APTT 39 SECONDS (21-34) H D 02/05/17 04:19 - Constitutional Appears: Non-toxic, No Acute Distress - Head Exam Head Exam: ATRAUMATIC - Eye Exam Eye Exam: EOMI - ENT Exam ENT Exam: Mucous Membranes Dry (NPO for Surgery today) - Respiratory Exam Respiratory Exam: Clear to Ausculation Bilateral, NORMAL BREATHING PATTERN - Cardiovascular Exam Cardiovascular Exam: REGULAR RHYTHM, +S1, +S2 - GI/Abdominal Exam GI & Abdominal Exam: Soft, Normal Bowel Sounds. absent: Distended, Tenderness - Extremities Exam Extremities Exam: Calf Tenderness. absent: Pedal Edema Additional comments: Cold LEs more so on the left than the right. Pedal pulses unable to be palpated b/l. - Neurological Exam Neurological Exam: Alert, Awake - Psychiatric Exam Psychiatric exam: Normal Affect, Normal Mood - Skin Skin Exam: Dry, Intact Assessment and Plan - Assessment and Plan (Free Text) Assessment: B/L lower extremity pain * venous doppler: no DVT, incidental finding of left popliteal artery occluded * Vascular surgery, Dr. Kaur consulte * Arterial dopplers showing clotting in bilateral legs. * Dr. Kaur recommend CT of lower extremity to further image patient's circulation. Patient required surgical intervention (given clotting legs) and went to OR 02/05. Uncontrolled HTN * Cardiology consult: Dr. Brown * Likely influenced by pain; hx of hypertension; takes Metoprolol at home?. Per clinic EMR patient is also on Chlorthalidone 25mg daily, Cozaar 100mg PO daily, and Nifedipine 60mg Po daily History of Atrial Fibrillation * cardiology consulted, Dr. Brown, help appreciated * continue Metoprolol Tartrate 25 mg BID * Echo on : LVEF- 59% * Ordered for repeat echocardiogram; patient denies chest pain, denies palpitations; Patient is not on anticoagulation for hx of atrial fibrillation * CHADS: 4: high risk of thromboembolic event; 8.5% risk of event per year if no coumadin * HASBLED: 2 (stroke; age; blood pressure is uncontrolled day but suspect due to pain after conversation with the daughter) * ordered for hgba1c, probnp History of Seizure Disorder * Continue home medication Dilantin 100 mg TID * CT Head: no evidence of acute intracranial hemorrhage. Large foci of encephalomalcia in brain suggestive of old infarction. Largest encephalomalacia seen at the right temporal parietal frontal love. Moderate atrophy and moderate to extensive white mater changes suggestive of chronic microvascular ischemic disease * seizure precautions History of multiple strokes * CT Head: no evidence of acute intracranial hemorrhage. Large foci of encephalomalcia in brain suggestive of old infarction. Largest encephalomalacia seen at the right temporal parietal frontal love. Moderate aatrophy and moderate to extensive white mater changes suggestive of chronic microvascular ischemic disease * Patient per home meds: on statin (lipitor), plavix, and anti-hypertensives * Has residual left side weakness since last stroke 2 years ago where his vision was affected and improved with prescription glasses * Order for a1c, lipid panel, hypercoaguable workup Prophylactic Measures * Pepcid 20mg daily for GI ppx * Start Heparin Drip for anticoagulation given patient has risk of stroke given his atrial fibrillation and patient has acutely clotted peripheral vasculture b/ l; Patient to be scheduled for OR tomorrow per vascular surgery. Patient cannot have thrombolysis given both lower extremities are affected per vascular surgery. * Awaiting official reports <Alexandra Skinner V - Last Filed: 02/07/17 08:18> Objective - Vital Signs/Intake and Output Vital Signs (last 24 hours): Temp Pulse Resp BP Pulse Ox 98.4 F 88 20 125/74 97 02/07/17 08:09 02/07/17 08:09 02/07/17 08:09 02/07/17 08:09 02/07/17 08:09 Intake and Output: 02/07/17 02/07/17 06:59 18:59 Intake Total 527 Output Total 1150 Balance -623 - Medications Medications: Current Medications Chlorthalidone (Hygroton) 25 mg PO DAILY [facility] Last Admin: 02/06/17 09:10 Dose: 25 mg Diltiazem HCl (Cardizem Cd) 180 mg PO DAILY [facility] Last Admin: 02/06/17 15:07 Dose: 180 mg Famotidine (Pepcid) 20 mg PO DAILY [facility] Last Admin: 02/06/17 09:10 Dose: 20 mg Hydromorphone HCl (Dilaudid) 0.5 mg IVP Q3H PRN PRN Reason: Pain, moderate (4-7) Last Admin: 02/06/17 02:41 Dose: 0.5 mg Sodium Chloride (Sodium Chloride 0.9%) 1,000 mls @ 100 mls/hr IV .Q10H [facility] Last Admin: 02/07/17 02:06 Dose: 100 mls/hr Heparin Sodium/Sodium Chloride (Heparin 50703 Units/250ml 1/2 Normal Saline) 25 ,000 units in 250 mls @ 14.515 mls/hr IV .[id number] PRN; Protocol; 16 UNITS/KG/HR PRN Reason: PROTOCOL Last Admin: 02/06/17 20:19 Dose: 16 units/kg/hr, 14.515 mls/hr Losartan Potassium (Cozaar) 100 mg PO DAILY [facility] Last Admin: 02/06/17 15:35 Dose: 100 mg Nifedipine (Procardia Xl) 60 mg PO DAILY [facility] Last Admin: 02/06/17 15:10 Dose: 60 mg Nitroglycerin (Nitro-Bid 2% Oint) 1 ea TOP Q6H PRN PRN Reason: Systolic Blood Pressure >180 Ondansetron HCl (Zofran Inj) 4 mg IVP Q6 PRN PRN Reason: Nausea/Vomiting Phenytoin Sodium (Dilantin) 100 mg PO TID [facility] Last Admin: 02/06/17 17:41 Dose: 100 mg Rosuvastatin Calcium (Crestor) 5 mg PO HS [facility] Last Admin: 02/06/17 22:19 Dose: 5 mg Simethicone (Mylicon Chew Tab) 80 mg PO QID [facility] - Labs Labs: 02/07/17 06:22 02/07/17 06:22 PT 13.8 SECONDS (9.7-12.2) H 02/07/17 02:41 INR 1.2 02/07/17 02:41 APTT 52 SECONDS (21-34) H D 02/07/17 02:41 Attending/Attestation - Attestation I have personally seen and examined this patient.: Yes I have fully participated in the care of the patient.: Yes I have reviewed all pertinent clinical information, including history, physical exam and plan: Yes Notes (Text): This is late computer entry for 02/05/17. Patient seen, examined, and case discussed with day-time resident, cardiology, and vascular surgery. Patient went to OR today for thrombectomy for right lower extremity. Per cardiology, patient is high risk for procedure. Patient seen post-operative in Bed 1 ICU. Discussed with vascular surgery, extensive clot removed from right lower extremity. Patient has co-comittant peripheral vascular disease which is chronic. Patient to continue Heparin drip. Patient was also placed on Cardizem drip for blood pressure control. Pending hypercoagability workup; but likely thromboembolism secondary to atrial fibrillation. 1. Peripheral Arterial Disease, Severe Critical Limb Ischemia * Vascular surgery, Dr. Kaur consulted, help appreciated * Cardiology, Dr. Brown, help appreciated * Venous doppler: no DVT, incidental finding of left popliteal artery occluded * Abdominal Angiography (02/04/17): occlusion of the right common femoral artery , superficial femoral artery, popliteal artery, and popliteal trifurcation. Reconstitution of the right peroneal via collaterals with runoff to the foot. Occlusion of the left distal superficial femoral artery and popliteral artery. Reconstitution of the left tibial peroneal trunk and anterior tibial artery via collaterals below the trifurcation. Multifocal short segment disease within the anterior tibial artery and peroneal. 2 low density lesions within the liver not fully characterized due to small size. Focal areas of cortical atrophy in the right kdiney reflecting previous infection/infarction. Focall abnormal loop of small bowel noted within the mid abdomen. Affected loop demonstrates mild wall thickening and perienteric inflammatory change. * 02/05 Operation: b/l femoral artery thrombectomy w/angiogram-->thrombus removed from right lower extremity * Patient is on heparin drip. 2. Malignant Hypertension * Cardiology consult: Dr. Brown, help appreciated * Patient is on Cardizem Drip in addition to PO medications below. Medications: * Chlorthalidone 25mg daily * Cozaar 100mg PO daily * Procardia XL 60mg PO daily * Nitro-Bid 2% ointment topical Q6HR PRN; The floor overnight unable to do Tridil drip. * Metoprolol 50mg PO BID 3. History of Atrial Fibrillation * Cardiology consulted, Dr. Brown, help appreciated * Echo on 11/13/16: LVEF- 59% * Awaiting repeat echocardiogram post-operative. * CHADS: 4: high risk of thromboembolic event; 8.5% risk of event per year if no coumadin * HASBLED: 2 (stroke; age; blood pressure is uncontrolled day but suspect due to pain after conversation with the daughter) * Heparin Drip * [id number] 5.5 4. History of Seizure Disorder * Continue home medication Dilantin 100 mg TID * CT head w/o contrast due to questionable fall-->patient did not have fall per daughter * CT Head: no evidence of acute intracranial hemorrhage. Large foci of encephalomalcia in brain suggestive of old infarction. Largest encephalomalacia seen at the right temporal parietal frontal love. Moderate aatrophy and moderate to extensive white mater changes suggestive of chronic microvascular ischemic disease * seizure precautions 5. History of multiple strokes * CT Head: no evidence of acute intracranial hemorrhage. Large foci of encephalomalcia in brain suggestive of old infarction. Largest encephalomalacia seen at the right temporal parietal frontal love. Moderate aatrophy and moderate to extensive white mater changes suggestive of chronic microvascular ischemic disease * Patient per home meds: on statin (lipitor), plavix, and anti-hypertensives * Has residual left side weakness since last stroke 2 years ago where his vision was affected and improved with prescription glasses * A1c: 5.5, Lipid Panel: HDL: 30, LDL:69 T Cholestrol:109 * Statin held on admission for consideration for statin induced myopathy prior to doppler results * Pending hypercoaguable workup; likely due to atrial fibrillation * Crestor 5mg POqHS 6. Prophylactic Measures * Pepcid 20mg daily for GI ppx * On Heparin Drip
[2017-02-05] MEDS ORDERED: Lidocaine 1% Inj (20ml) ONE (09:59)
[2017-02-05] MEDS ORDERED: Iodixanol 320 MG/ML 200 ML BOTTLE IV ONE (09:59)
[2017-02-05] MEDS ORDERED: Propofol 10 mg/ml Inj (20 ML) ONE (10:18)
[2017-02-05] MEDS ORDERED: Rocuronium 10 mg/ml (5 ml) ONE ×2 (10:18→12:41)
[2017-02-05] MEDS ORDERED: Nitroglycerin 50mg in D5W 0 MG/0 ML BOTTLE IV ONE (10:22)
[2017-02-05] MEDS ORDERED: Etomidate 20 mg/10ml Inj IV ONE (10:22)
[2017-02-05] MEDS ORDERED: HEPARIN-NS 5,000 UNITS/500 ML 5,000 UNIT/500 ML BAG IV ONE (10:33)
[2017-02-05] MEDS ORDERED: Esmolol 100 mg/10ml Inj IV ONE (10:36)
[2017-02-05] MEDS ORDERED: Lactated Ringer's 1,000 ML IV ONE ×3 (10:40→15:40)
[2017-02-05] MEDS: NIFEdipine 60 mg ER Tab PO SCH (10:50)
[2017-02-05] MEDS ORDERED: Midazolam 2 MG/2 ML VIAL ONE (10:56)
[2017-02-05] MEDS ORDERED: Sodium Chloride 0.9% 500 ML IV ONE ×3 (11:00→12:13)
[2017-02-05] MEDS ORDERED: ceFAZolin 1 gm FROZEN Premix 0 GM/0 ML ML IVPB ONE (11:14)
--- NOTE | 2017-02-05 11:42 | RAD ---
HISTORY: hx a fib, htn COMPARISON: No prior. TECHNIQUE: Chest PA and lateral FINDINGS: LUNGS: There is no acute infiltrate or pleural effusion identified. The costophrenic sulci are sharp. The hemidiaphragms appear somewhat flattened on the lateral view within increased anteroposterior chest diameter which could reflect an element of COPD. Clinically correlate. PLEURA: No significant pleural effusion identified. No pneumothorax apparent. CARDIOVASCULAR: Normal. OSSEOUS STRUCTURES: No significant abnormalities. VISUALIZED UPPER ABDOMEN: Normal. OTHER FINDINGS: None. IMPRESSION: Questionable COPD. No acute infiltrate or pleural effusion identified.
[2017-02-05] MEDS ORDERED: ceFAZolin IV 1 gm in Dextrose 2 GM/100 ML BAG IVPB ONE (11:46)
[2017-02-05] MEDS ORDERED: Neostigmine Methylsulfate 3mg/3ml Syringe IV ONE ×2 (13:00→13:31)
[2017-02-05] MEDS ORDERED: HYDROmorphone 0.5 mg/0.5 ml ISec IVP PRN (13:43)
--- NOTE | 2017-02-05 13:52 | PCM.SURG1 ---
Surgeon's Initial Post Op Note - Surgeon's Notes Surgeon: Dr. Kaur Chief [facility] Division: Dr. Weller PGY-2 Type of Anesthesia: General Endo Pre-Operative Diagnosis: Severe PAD Operative Findings: Left popliteal artery stenosis. Right SFA/profunda artery thrombus Post-Operative Diagnosis: see operative report Operation Performed: B/l femoral artery thrombectomy w/ angiogram Specimen/Specimens Removed: thrombus Estimated Blood Loss: EBL {In ML}: 250 Blood Products Given: N/A Drains Used: No Drains Post-Op Condition: Good Date of Surgery/Procedure: 02/05/17 Time of Surgery/Procedure: 13:52
[2017-02-05] MEDS ORDERED: Nitroglycerin 2% Ointment Foilpak UD TOP PRN (13:54)
--- NOTE | 2017-02-05 21:59 | CARD ---
APPROVED REPORT EKG Measurement Heart [id number] <Conclusion> Atrial fibrillation Left axis deviation Right bundle branch block Voltage criteria for left ventricular hypertrophy Possible Inferior infarct, age undetermined T wave abnormality, consider lateral ischemia Abnormal ECG
[2017-02-05] MEDS: HYDROmorphone 0.5 mg/0.5 ml ISec IVP PRN (23:08)
[2017-02-06] MEDS: Nitroglycerin 2% Ointment Foilpak UD TOP SCH ×3 (00:28→12:32)
[2017-02-06] MEDS: HYDROmorphone 0.5 mg/0.5 ml ISec IVP PRN (02:41)
[2017-02-06] MEDS: Sodium Chloride 0.9% 1,000 ML IV SCH ×3 (04:15→14:32)
[2017-02-06 05:43] LABS: BASO % 0.4 % (0.0-2.0); EOS # 0.1 K/uL (0.0-0.7); EOS % 0.8 % (0.0-4.0); HEMATOCRIT 35.6 % (35.0-51.0); LYMPH # 0.7 K/uL (1.0-4.3); MEAN CELL VOLUME 78.6 fL (80.0-94.0); MEAN CORPUSCULAR HEMOGLOBIN 26.2 pg (27.0-31.0); MEAN CORPUSCULAR HGB CONC 33.4 g/dL (33.0-37.0); MONO # 1.2 K/uL (0.0-0.8); MONO % 16.2 % (0.0-10.0); RED CELL DISTRIBUTION WIDTH 17.4 % (11.5-14.5); WHITE BLOOD COUNT 7.4 K/uL (4.8-10.8)
[2017-02-06 05:59] LABS: INR 1.3
[2017-02-06 06:07] LABS: CHLORIDE 104 mmol/L (98-107); POTASSIUM 4.1 mmol/L (3.6-5.2); SODIUM 138 mmol/L (132-148)
[2017-02-06 06:09] LABS: ALB/GLOB RATIO 0.8 (1.0-2.1); AST/SGOT 97 U/L (17-59); BILIRUBIN,TOTAL 0.4 mg/dL (0.2-1.3); CARBON DIOXIDE 22 mmol/L (22-30); GFR AFRICAN-AMERICAN > 60; TOTAL PROTEIN 5.3 g/dL (6.3-8.3)
[2017-02-06 06:10] LABS: ALKALINE PHOSPHATASE 72 U/L (38-126); ALT/SGPT 64 U/L (21-72); BLOOD UREA NITROGEN 17 mg/dL (9-20); CALCIUM 7.4 mg/dl (8.6-10.4); GLUCOSE,RANDOM 94 mg/dL (75-110); MAGNESIUM 2.1 mg/dL (1.6-2.3); PHOSPHOROUS 3.6 mg/dL (2.5-4.5)
--- NOTE | 2017-02-06 06:59 | CP.PCM.CON ---
History of Present Illness - History of Present Illness History of Present Illness: 71 m being observed in ICU post thrombectomy for acute ischemic leg on the right lower leg, patient had angiography, and exploration b/l. Patient presented with c/o pain in right leg for 4-5 days gradually worsening, inability to walk. W/u with abdominal/ext CTA showed b/l severe atherosclerotic disease, and obstructing clot in proximal femoral art. EBL about 250ml. No swelling or bleeding at groin. Post procedure right feet DP and PT only felt with doppler, on left not obtained with doppler due to severe atherosclerotic disease. PMD: [facility] PMHx: Atrial fibrillation, HTN, Epilepsy, strokes x 10 PSHx: possible Cardiac cath in 1998, patient does not remember the results FHx: Mother had COPD and from pneumonia, Father had NV at 60 years old Social: Denies tobacco and drug use. Patient used to drink socially. Patient lives at home with his and daughter. 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, says he breathed in a lot of smoke during his time working Review of Systems - Review of Systems All systems: reviewed and no additional remarkable complaints except (HPI) Past Patient History - Infectious Disease Hx of Infectious Diseases: None - Past Medical History & Family History Past Medical History?: Yes - Past Social History Smoking Status: Never Smoked Alcohol: None Home Situation {Lives}: With Family Domestic Violence: Negative - CARDIAC Hx Atrial Fibrillation: Yes Hx Hypertension: Yes - PULMONARY Hx Respiratory Disorders: No - NEUROLOGICAL Hx Seizures: Yes - HEENT Hx HEENT Problems: Yes 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) - RENAL Hx Chronic Kidney Disease: No - ENDOCRINE/METABOLIC Hx Endocrine Disorders: No - HEMATOLOGICAL/ONCOLOGICAL Hx Blood Disorders: No - INTEGUMENTARY Hx Dermatological Problems: No - MUSCULOSKELETAL/RHEUMATOLOGICAL Hx Musculoskeletal Disorders: No Hx Falls: No - GASTROINTESTINAL Hx Gastrointestinal Disorders: No - GENITOURINARY/GYNECOLOGICAL Hx Genitourinary Disorders: No - PSYCHIATRIC Hx Substance Use: No - SURGICAL HISTORY Hx Surgeries: Yes Hx Cardiac Catheterization: Yes - ANESTHESIA Hx Anesthesia: Yes Hx Anesthesia Reactions: No Meds Allergies/Adverse Reactions: Allergies Allergy/AdvReac Type Severity Reaction Status Date / Time No Known Allergies Allergy Verified 10/07/16 10:15 - Medications Medications: Current Medications Chlorthalidone (Hygroton) 25 mg PO DAILY [facility] Last Admin: 02/05/17 22:39 Dose: Not Given Famotidine (Pepcid) 20 mg PO DAILY [facility] Last Admin: 02/05/17 18:05 Dose: 20 mg Hydromorphone HCl (Dilaudid) 0.5 mg IVP Q3H PRN PRN Reason: Pain, moderate (4-7) Last Admin: 02/05/17 23:08 Dose: 0.5 mg Heparin Sodium/Sodium Chloride (Heparin 00378 Units/250ml 1/2 Normal Saline) 25 ,000 units in 250 mls @ 12.701 mls/hr IV .[id number] PRN; Protocol; 14 UNITS/KG/HR PRN Reason: PROTOCOL Last Titration: 02/05/17 16:44 Dose: 13.99 units/kg/hr, 12.7 mls/hr Sodium Chloride (Sodium Chloride 0.9%) 1,000 mls @ 100 mls/hr IV .Q10H [facility] Last Admin: 02/05/17 16:38 Dose: 100 mls/hr Diltiazem HCl 125 mg/ Sodium (Chloride) 125 mls @ 5 mls/hr IV .Q24H [facility]; 5 MG/ HR PRN Reason: Protocol Last Admin: 02/05/17 22:37 Dose: Not Given Losartan Potassium (Cozaar) 100 mg PO DAILY [facility] Last Admin: 02/05/17 09:56 Dose: Not Given Metoprolol Tartrate (Lopressor) 50 mg PO BIDBS [facility] Last Admin: 02/05/17 16:49 Dose: 50 mg Nifedipine (Procardia Xl) 60 mg PO DAILY [facility] Last Admin: 02/05/17 10:50 Dose: Not Given Nitroglycerin (Nitro-Bid 2% Oint) 1 ea TOP Q6 [facility] Last Admin: 02/06/17 00:28 Dose: 1 ea Nitroglycerin (Nitro-Bid 2% Oint) 1 ea TOP Q6H PRN PRN Reason: Systolic Blood Pressure >180 Ondansetron HCl (Zofran Inj) 4 mg IVP Q6 PRN PRN Reason: Nausea/Vomiting Phenytoin Sodium (Dilantin) 100 mg PO TID [facility] Last Admin: 02/05/17 18:06 Dose: 100 mg Pneumococcal Polyvalent Vaccine (Pneumovax 23 Vaccine) 0.5 ml IM .ONCE ONE Stop: 02/06/17 10:01 Physical Exam - Additional Findings Additional findings: * HEENT ZACH * Neck Supple * Chest Clear * CVS irregular, no gallop or rub * PA soft NT b/s present * Ext b/l groin dressing no swelling, oozing, right dp and pt observed with doppler, on left not felt with doppler * Skin normal turgor * OUTSOLE MOLDER awake oriented Results - Vital Signs Recent Vital Signs: Last Vital Signs Temp 98.0 F 02/05/17 21:00 Pulse 112 H 02/06/17 00:51 Resp 20 02/06/17 00:51 BP 149/89 02/06/17 00:51 Pulse Ox 100 02/06/17 00:51 - Labs Result Diagrams: 02/06/17 05:36 02/06/17 05:36 Labs: Laboratory Results - last 24 hr 02/05/17 02/05/17 02/05/17 04:19 07:35 07:35 WBC RBC Hgb Hct MCV MCH MCHC RDW Plt Count MPV Neut % (Auto) Lymph % (Auto) Calhoun % (Auto) Eos % (Auto) Baso % (Auto) Neut # Lymph # Calhoun # Eos # Baso # PT 14.0 H INR 1.2 APTT 39 H D Sodium 138 Potassium 4.0 Chloride 101 Carbon Dioxide 25 Anion Gap 16 BUN 18 Creatinine 1.2 Est GFR ( Amer) > 60 Est GFR (Non-Af Amer) 60 POC Glucose (mg/dL) Random Glucose 97 Hemoglobin A1c 5.5 Calcium 8.2 L Phosphorus 3.5 Magnesium 2.4 H Total Bilirubin 0.5 AST 91 H D ALT 72 Alkaline Phosphatase 89 Total Protein 6.0 L Albumin 2.9 L Globulin 3.1 Albumin/Globulin Ratio 0.9 L Triglycerides 67 Cholesterol 109 LDL Cholesterol Direct 69 HDL Cholesterol 30 Blood Type Blood Type Confirm Antibody Screen 02/05/17 02/05/17 02/05/17 07:35 08:01 10:06 WBC 7.0 RBC 5.30 Hgb 14.2 Hct 41.5 MCV 78.2 L MCH 26.8 L MCHC 34.2 RDW 17.4 H Plt Count 187 MPV 8.7 Neut % (Auto) 68.8 Lymph % (Auto) 14.7 L Calhoun % (Auto) 14.8 H Eos % (Auto) 1.5 Baso % (Auto) 0.2 Neut # 4.8 Lymph # 1.0 Calhoun # 1.0 H Eos # 0.1 Baso # 0.0 PT INR APTT 55 H D Sodium Potassium Chloride Carbon Dioxide Anion Gap BUN Creatinine Est GFR ( Amer) Est GFR (Non-Af Amer) POC Glucose (mg/dL) 77 Random Glucose Hemoglobin A1c Calcium Phosphorus Magnesium Total Bilirubin AST ALT Alkaline Phosphatase Total Protein Albumin Globulin Albumin/Globulin Ratio Triglycerides Cholesterol LDL Cholesterol Direct HDL Cholesterol Blood Type Blood Type Confirm Antibody Screen 02/05/17 02/05/17 02/05/17 11:11 16:52 21:09 WBC RBC Hgb Hct MCV MCH MCHC RDW Plt Count MPV Neut % (Auto) Lymph % (Auto) Calhoun % (Auto) Eos % (Auto) Baso % (Auto) Neut # Lymph # Calhoun # Eos # Baso # PT INR APTT Sodium Potassium Chloride Carbon Dioxide Anion Gap BUN Creatinine Est GFR ( Amer) Est GFR (Non-Af Amer) POC Glucose (mg/dL) 89 217 H Random Glucose Hemoglobin A1c Calcium Phosphorus Magnesium Total Bilirubin AST ALT Alkaline Phosphatase Total Protein Albumin Globulin Albumin/Globulin Ratio Triglycerides Cholesterol LDL Cholesterol Direct HDL Cholesterol Blood Type O POSITIVE Blood Type Confirm O POSITIVE Antibody Screen Negative Assessment & Plan - Assessment and Plan (Free Text) Assessment: * S/P b/l leg angiography with thrombecotomy on right, only doppler pulses on right, not on left * Afib controlled rhythm, with multiple CVA not on anticoagulation * Uncontrolled htn * Severe atherosclerosis Plan: * Therapeutic anticoagulation on lovenox * Afib rate control * Monitor BP, continue home meds * Monitor hgb * Monitor in ICU overnight unless complication. * GI prophylaxis
--- NOTE | 2017-02-06 08:45 | CP.PCM.PN ---
Subjective - Date & Time of Evaluation Date of Evaluation: 02/06/17 Time of Evaluation: 08:35 - Subjective Subjective: Patient was seen and examined at bedside. Patient reports his right leg pain has improved s/p operation. He states he tried using the incentive spirometer, but didn't know how to use it properly. 12-point ROS otherwise negative. Objective - Vital Signs/Intake and Output Vital Signs (last 24 hours): Temp Pulse Resp BP Pulse Ox 98.4 F 117 H 13 161/94 H 83 L 02/06/17 04:00 02/06/17 07:00 02/06/17 07:00 02/06/17 06:51 02/06/17 07:00 Intake and Output: 02/06/17 02/06/17 06:59 18:59 Intake Total 2452.4 267.7 Output Total 1025 150 Balance 1427.4 117.7 - Medications Medications: Current Medications Chlorthalidone (Hygroton) 25 mg PO DAILY [facility] Last Admin: 02/05/17 22:39 Dose: Not Given Famotidine (Pepcid) 20 mg PO DAILY [facility] Last Admin: 02/05/17 18:05 Dose: 20 mg Hydromorphone HCl (Dilaudid) 0.5 mg IVP Q3H PRN PRN Reason: Pain, moderate (4-7) Last Admin: 02/06/17 02:41 Dose: 0.5 mg Heparin Sodium/Sodium Chloride (Heparin 30721 Units/250ml 1/2 Normal Saline) 25 ,000 units in 250 mls @ 12.701 mls/hr IV .[id number] PRN; Protocol; 14 UNITS/KG/HR PRN Reason: PROTOCOL Last Titration: 02/05/17 16:44 Dose: 13.99 units/kg/hr, 12.7 mls/hr Sodium Chloride (Sodium Chloride 0.9%) 1,000 mls @ 100 mls/hr IV .Q10H [facility] Last Admin: 02/06/17 04:15 Dose: 100 mls/hr Diltiazem HCl 125 mg/ Sodium (Chloride) 125 mls @ 5 mls/hr IV .Q24H [facility]; 5 MG/ HR PRN Reason: Protocol Last Admin: 02/06/17 02:52 Dose: 5 mg/hr, 5 mls/hr Losartan Potassium (Cozaar) 100 mg PO DAILY [facility] Last Admin: 02/05/17 09:56 Dose: Not Given Metoprolol Tartrate (Lopressor) 50 mg PO BIDBS [facility] Last Admin: 02/06/17 07:36 Dose: 50 mg Nifedipine (Procardia Xl) 60 mg PO DAILY [facility] Last Admin: 02/05/17 10:50 Dose: Not Given Nitroglycerin (Nitro-Bid 2% Oint) 1 ea TOP Q6 [facility] Last Admin: 02/06/17 05:10 Dose: 1 ea Nitroglycerin (Nitro-Bid 2% Oint) 1 ea TOP Q6H PRN PRN Reason: Systolic Blood Pressure >180 Ondansetron HCl (Zofran Inj) 4 mg IVP Q6 PRN PRN Reason: Nausea/Vomiting Phenytoin Sodium (Dilantin) 100 mg PO TID [facility] Last Admin: 02/05/17 18:06 Dose: 100 mg Pneumococcal Polyvalent Vaccine (Pneumovax 23 Vaccine) 0.5 ml IM .ONCE ONE Stop: 02/06/17 10:01 - Labs Labs: 02/06/17 05:36 02/06/17 05:36 PT 14.2 SECONDS (9.7-12.2) H 02/06/17 05:36 INR 1.3 02/06/17 05:36 APTT 44 SECONDS (21-34) H D 02/06/17 05:36 - Constitutional Appears: Non-toxic, No Acute Distress - Head Exam Head Exam: ATRAUMATIC, NORMAL INSPECTION - Eye Exam Eye Exam: EOMI - ENT Exam ENT Exam: Mucous Membranes Moist - Respiratory Exam Respiratory Exam: NORMAL BREATHING PATTERN. absent: Respiratory Distress - Cardiovascular Exam Cardiovascular Exam: Tachycardia, +S1, +S2 - GI/Abdominal Exam GI & Abdominal Exam: Soft. 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 - Extremities Exam Additional comments: No pedal pulses present with doppler b/l. No pedal pulses felt on palpation b/l. LE warm to touch b/l. - Neurological Exam Neurological Exam: Alert, Awake - Psychiatric Exam Psychiatric exam: Normal Affect, Normal Mood - Skin Skin Exam: Intact, Normal Color, Warm Assessment and Plan - Assessment and Plan (Free Text) Assessment: 71 year old male POD#1 s/p b/l femoral artery angioplasty and thrombectomy on the right. - Continue pain management - Monitor BP - Continue vascular checks - Encourage IS use and ambulation - PT ordered
[2017-02-06] MEDS: NIFEdipine 60 mg ER Tab PO SCH ×2 (09:10→15:10)
[2017-02-06] MEDS ORDERED: Pneumococcal 23-Valent Vaccine IM ONE (10:00)
[2017-02-06] MEDS ORDERED: diltiaZEM 180 mg/24 Hours CD Cap PO SCH (14:00)
--- NOTE | 2017-02-06 14:32 | CP.PCM.PN ---
Subjective - Date & Time of Evaluation Date of Evaluation: 02/06/17 Time of Evaluation: 14:15 - Subjective Subjective: Medical Attending Note: Patient seen and examined. Patient reports little bit pain over the right leg. Patient denies headache, denies chest pain, denies cough, denies abdominal pain , denies nausea, denies vomitting, reports had a bowel movement. Objective - Vital Signs/Intake and Output Vital Signs (last 24 hours): Temp Pulse Resp BP Pulse Ox 98.4 F 94 H 13 136/80 99 02/06/17 04:00 02/06/17 11:51 02/06/17 11:51 02/06/17 11:51 02/06/17 11:51 Intake and Output: 02/06/17 02/06/17 06:59 18:59 Intake Total 2452.4 1203.5 Output Total 1025 950 Balance 1427.4 253.5 - Medications Medications: Current Medications Chlorthalidone (Hygroton) 25 mg PO DAILY [facility] Last Admin: 02/06/17 09:10 Dose: 25 mg Diltiazem HCl (Cardizem Cd) 180 mg PO DAILY [facility] Famotidine (Pepcid) 20 mg PO DAILY [facility] Last Admin: 02/06/17 09:10 Dose: 20 mg Hydromorphone HCl (Dilaudid) 0.5 mg IVP Q3H PRN PRN Reason: Pain, moderate (4-7) Last Admin: 02/06/17 02:41 Dose: 0.5 mg Heparin Sodium/Sodium Chloride (Heparin 18028 Units/250ml 1/2 Normal Saline) 25 ,000 units in 250 mls @ 12.701 mls/hr IV .[id number] PRN; Protocol; 14 UNITS/KG/HR PRN Reason: PROTOCOL Last Titration: 02/05/17 16:44 Dose: 13.99 units/kg/hr, 12.7 mls/hr Sodium Chloride (Sodium Chloride 0.9%) 1,000 mls @ 100 mls/hr IV .Q10H [facility] Last Admin: 02/06/17 04:15 Dose: 100 mls/hr Losartan Potassium (Cozaar) 100 mg PO DAILY [facility] Last Admin: 02/06/17 09:10 Dose: 100 mg Metoprolol Tartrate (Lopressor) 50 mg PO BIDBS [facility] Last Admin: 02/06/17 07:36 Dose: 50 mg Nifedipine (Procardia Xl) 60 mg PO DAILY [facility] Last Admin: 02/06/17 09:10 Dose: 60 mg Nitroglycerin (Nitro-Bid 2% Oint) 1 ea TOP Q6 [facility] Last Admin: 02/06/17 12:32 Dose: 1 ea Nitroglycerin (Nitro-Bid 2% Oint) 1 ea TOP Q6H PRN PRN Reason: Systolic Blood Pressure >180 Ondansetron HCl (Zofran Inj) 4 mg IVP Q6 PRN PRN Reason: Nausea/Vomiting Phenytoin Sodium (Dilantin) 100 mg PO TID [facility] Last Admin: 02/06/17 14:02 Dose: 100 mg - Labs Labs: 02/06/17 05:36 02/06/17 05:36 PT 14.2 SECONDS (9.7-12.2) H 02/06/17 05:36 INR 1.3 02/06/17 05:36 APTT 44 SECONDS (21-34) H D 02/06/17 05:36 - Constitutional Appears: Non-toxic, Older Than Stated Age, Chronically Ill - Head Exam Head Exam: NORMAL INSPECTION - Eye Exam Eye Exam: EOMI - ENT Exam ENT Exam: Mucous Membranes Dry - Respiratory Exam Respiratory Exam: Clear to Ausculation Bilateral, NORMAL BREATHING PATTERN - Cardiovascular Exam Cardiovascular Exam: Irregular Rhythm, +S1, +S2 - GI/Abdominal Exam GI & Abdominal Exam: Soft, Normal Bowel Sounds Additional comments: nontender, no guarding, no rebound, +distension - Extremities Exam Additional comments: Difficult to appreciate any DP or PT pulses over both lower extremities Temperature better compared to on admission pain on palpation over the right lowe extremity - Neurological Exam Neurological Exam: Alert, Awake, CN II-XII Intact, Oriented x3 Neuro motor strength exam: Left Upper Extremity: 4, Right Upper Extremity: 5, Left Lower Extremity: 4, Right Lower Extremity: 5 Assessment and Plan - Assessment and Plan (Free Text) Assessment: Assessment/Plan 1. Peripheral Arterial Disease, Severe Critical Limb Ischemia * Vascular surgery, Dr. Kaur consulted, help appreciated * Cardiology, Dr. Brown, help appreciated * Venous doppler: no DVT, incidental finding of left popliteal artery occluded * Abdominal Angiography (02/04/17): occlusion of the right common femoral artery , superficial femoral artery, popliteal artery, and popliteal trifurcation. Reconstitution of the right peroneal via collaterals with runoff to the foot. Occlusion of the left distal superficial femoral artery and popliteral artery. Reconstitution of the left tibial peroneal trunk and anterior tibial artery via collaterals below the trifurcation. Multifocal short segment disease within the anterior tibial artery and peroneal. 2 low density lesions within the liver not fully characterized due to small size. Focal areas of cortical atrophy in the right kdiney reflecting previous infection/infarction. Focall abnormal loop of small bowel noted within the mid abdomen. Affected loop demonstrates mild wall thickening and perienteric inflammatory change. * 02/05 Operation: b/l femoral artery thrombectomy w/angiogram-->thrombus removed * Unable to appreciate pulses by dopplers * Patient is on heparin drip. * Vascular surgery cleared for patient to be on Coumadin. Patient started on Coumadin tonight 02/06/17 2. Malignant Hypertension * Cardiology consult: Dr. Brown, help appreciated * Patient is on Cardizem Drip-=->converted to PO Cardizem CD 180mg 1x/day Medications: * Chlorthalidone 25mg daily * Cozaar 100mg PO daily * Procardia XL 60mg PO daily * Nitro-Bid 2% ointment topical Q6HR PRN * Metoprolol 50mg PO BID-->will discontinue since patient to Cardizem CD today * start Cardizem CD 180mg PO daily * will have holding parameters on medications 3. History of Atrial Fibrillation * Cardiology consulted, Dr. Brown, help appreciated * Echo on 11/13/16: LVEF- 59% * Awaiting repeat echocardiogram * CHADS: 4: high risk of thromboembolic event; 8.5% risk of event per year if no coumadin * HASBLED: 2 (stroke; age; blood pressure is uncontrolled day but suspect due to pain after conversation with the daughter) * Heparin Drip-->to start Coumadin today, monitor INR * [id number] 5.5 4. History of Seizure Disorder * Continue home medication Dilantin 100 mg TID * CT head w/o contrast due to questionable fall-->patient did not have fall per daughter * CT Head: no evidence of acute intracranial hemorrhage. Large foci of encephalomalcia in brain suggestive of old infarction. Largest encephalomalacia seen at the right temporal parietal frontal love. Moderate aatrophy and moderate to extensive white mater changes suggestive of chronic microvascular ischemic disease * seizure precautions 5. History of multiple strokes * CT Head: no evidence of acute intracranial hemorrhage. Large foci of encephalomalcia in brain suggestive of old infarction. Largest encephalomalacia seen at the right temporal parietal frontal love. Moderate aatrophy and moderate to extensive white mater changes suggestive of chronic microvascular ischemic disease * Patient per home meds: on statin (lipitor), plavix, and anti-hypertensives * Has residual left side weakness since last stroke 2 years ago where his vision was affected and improved with prescription glasses * A1c: 5.5, Lipid Panel: HDL: 30, LDL:69 T Cholestrol:109 * Pending hypercoaguable workup; likely due to atrial fibrillation * Crestor 5mg POqHS 6. Prophylactic Measures * Pepcid 20mg daily for GI ppx * Start Heparin Drip bridge to Coumadin * PT eval * OOB
--- NOTE | 2017-02-06 15:01 | VASCLAB ---
PROCEDURE: Lower Extremity Venous Duplex Exam. HISTORY: B/L CALF PAIN, R>L, R/O DVT PRIORS: None. TECHNIQUE: Bilateral common femoral, femoral, popliteal and posterior tibial, peroneal and great saphenous veins were evaluated. Flow was assessed with color Doppler, compressibility, assessment of phasic flow and augmentation response. Report prepared by GALINA Carr FINDINGS: RIGHT: 1. Common Femoral Vein: 1.1. Compressibility - Fully compressible: Thrombus - None : Flow - Phasic: Augmentation -Normal: Reflux - None. 2. Femoral Vein: 2.1. Compressibility - Fully compressible: Thrombus - None : Flow - Phasic: Augmentation -Normal: Reflux - None. 3. Popliteal Vein: 3.1. Compressibility - Fully compressible: Thrombus - None : Flow - Phasic: Augmentation -Normal: Reflux - None. 4. Posterior Tibial Vein: 4.1. Compressibility - Fully compressible: Thrombus - None: Flow - Phasic: Augmentation -Normal: Reflux - None. 5. Peroneal Vein: 5.1. Compressibility - Fully compressible: Thrombus - None: Flow - Phasic: Augmentation -Normal: Reflux - None. 6. Great Saphenous Vein: 6.1. Compressibility - Fully compressible: Thrombus - None: Flow - Phasic: Augmentation - Normal: Reflux - None. LEFT: 1. Common Femoral Vein: 1.1. Compressibility - Fully compressible: Thrombus - None: Flow - Phasic: Augmentation -Normal: Reflux - None. 2. Femoral Vein: 2.1. Compressibility - Fully compressible: Thrombus - None: Flow - Phasic: Augmentation -Normal: Reflux - None. 3. Popliteal Vein: 3.1. Compressibility - Fully compressible: Thrombus - None : Flow - Phasic: Augmentation -Normal: Reflux - None. 4. Posterior Tibial Vein: 4.1. Compressibility - Fully compressible: Thrombus - None: Flow - Phasic: Augmentation -Normal: Reflux - None. 5. Peroneal Vein: 5.1. Compressibility - Fully compressible: Thrombus - None: Flow - Phasic: Augmentation -Normal: Reflux - None. 6. Great Saphenous Vein: 6.1. Compressibility - Fully compressible: Thrombus - None: Flow - Phasic: Augmentation - Normal: Reflux - None. OTHER FINDINGS: Incidental finding: Occluded left popliteal artery. Findings were provided to Segundo Freedman scribe at 11:24 a.m. IMPRESSION: Right: No evidence of deep or superficial vein thrombosis of the right lower extremity. Normal valve function noted of the right side. Left: No evidence of deep or superficial vein thrombosis of the left lower extremity. Normal valve function noted of the left side.
--- NOTE | 2017-02-06 15:03 | VASCLAB ---
STUDY DESCRIPTION: HISTORY: LEFT POPLITEAL ARTERY OCCLUSION PRIORS: None. TECHNIQUE: Pulse volume recording waveforms and segmental pressures of bilateral lower extremities at multiple levels were obtained. Ankle Brachial Indices (ABIs) were calculated. Report prepared by FRANCISCO Jose, RVT RIGHT LOWER EXTREMITY: * Brachial artery: Pressure - 187 mmHg. * High thigh: Pressure - mmHg: Ratio - : PVR waveform - Reduced * Low thigh: Pressure - mmHg: Ratio - PVR waveform: None * Calf: Pressure - mmHg: Ratio - PVR waveform: None * Posterior tibial Artery: Pressure - mmHg: Ratio - PVR waveform: None * Dorsalis pedis Artery: Pressure - mmHg: Ratio - PVR waveform: None * Great toe: Pressure - mmHg: Ratio - PVR waveform: Ankle brachial index (ELIER): LEFT LOWER EXTREMITY: * Brachial artery: Pressure - 176 mmHg. * High thigh: Pressure - mmHg: Ratio - : PVR waveform - Reduced * Low thigh: Pressure - mmHg: Ratio - PVR waveform: Reduced * Calf: Pressure - mmHg: Ratio - PVR waveform: None * Posterior tibial Artery: Pressure - mmHg: Ratio - PVR waveform: None * Dorsalis pedis Artery: Pressure - mmHg: Ratio - PVR waveform: None * Great toe: Pressure - mmHg: Ratio - PVR waveform: Ankle brachial index (ELIER): OTHER FINDINGS: Dr. Skinner notified about the findings. IMPRESSION: This exam reveals undetectable perfusion of both lower extremities, noted at the superficial femoral, popliteal and tibial artery levels.
[2017-02-06] MEDS: diltiaZEM 180 mg/24 Hours CD Cap PO SCH (15:07)
--- NOTE | 2017-02-06 15:08 | VASCLAB ---
PROCEDURE: HISTORY: PAD COMPARISON: None available. TECHNIQUE: Grayscale and duplex Doppler evaluation of the bilateral common femoral, femoral, profunda femoral, popliteal, posterior tibial, anterior tibial and dorsalis pedis arteries was performed. Report prepared by FRANCISCO Jose, RVT FINDINGS: RIGHT LOWER EXTREMITY: * Common Femoral Artery: Peak Systolic Velocity - 53: Doppler Waveform: Triphasic: Plaque description - Homogeneous * Profunda Femoral Artery: Peak Systolic Velocity - 284: Doppler Waveform: Biphasic.: Plaque description - Homogeneous * Femoral Artery o Proximal Segment: Peak Systolic Velocity - 0: Doppler Waveform: Absent: Plaque description - Homogeneous o Middle Segment: Peak Systolic Velocity - 0: Doppler Waveform: Absent: Plaque description - Homogeneous o Distal Segment: Peak Systolic Velocity - 0: Doppler Waveform: Absent: Plaque description - Homogeneous * Popliteal Artery o Proximal Segment: Peak Systolic Velocity - 0: Doppler Waveform: Absent: Plaque description - Homogeneous o Middle Segment: Peak Systolic Velocity - 0: Doppler Waveform: Absent: Plaque description - Homogeneous o Distal Segment: Peak Systolic Velocity - 0: Doppler Waveform: Absent: Plaque description - Calcific * Posterior Tibial Artery: Peak Systolic Velocity - 0: Doppler Waveform: Absent: Plaque description - Calcific * Anterior Tibial Artery: Peak Systolic Velocity - 0: Doppler Waveform: Absent: Plaque description - Calcific * Dorsalis Pedis Artery: Peak Systolic Velocity - 0: Doppler Waveform: Absent: Plaque description - Calcific LEFT LOWER EXTREMITY: * Common Femoral Artery: Peak Systolic Velocity - 94: Doppler Waveform: Triphasic: Plaque description - Homogeneous * Profunda Femoral Artery: Peak Systolic Velocity - 106: Doppler Waveform: Biphasic: Plaque description - Homogeneous * Femoral Artery o Proximal Segment: Peak Systolic Velocity - 79: Doppler Waveform: Monophasic: Plaque description - Homogeneous o Middle Segment: Peak Systolic Velocity - 45: Doppler Waveform: Monophasic: Plaque description - Homogeneous o Distal Segment: Peak Systolic Velocity - 0: Doppler Waveform: Absent: Plaque description - Homogeneous * Popliteal Artery o Proximal Segment: Peak Systolic Velocity - 0: Doppler Waveform: Absent: Plaque description - Homogeneous o Middle Segment: Peak Systolic Velocity - 0: Doppler Waveform: Absent: Plaque description - Homogeneous o Distal Segment: Peak Systolic Velocity - 0: Doppler Waveform: Absent: Plaque description - Calcific * Posterior Tibial Artery: Peak Systolic Velocity - 0: Doppler Waveform: Absent: Plaque description - Calcific * Anterior Tibial Artery: Peak Systolic Velocity - 0: Doppler Waveform: Absent: Plaque description - Calcific * Dorsalis Pedis Artery: Peak Systolic Velocity - 0: Doppler Waveform: Absent: Plaque description - Calcific OTHER FINDINGS: Dr. Skinner notified about the findings. IMPRESSION: RIGHT: Occlusion of the right superficial femoral, popliteal, anterior tibial, posterior tibial and dorsalis pedis arteries. 30-49% stenosis of the right proximal profunda femoral artery. LEFT: Occlusion of the left distal superficial femoral, popliteal, anterior tibial, posterior tibial and dorsalis pedis arteries.
[2017-02-06] MEDS: Heparin25000 units/250ml 1/2NS 25,000 UNITS/250 ML BAG IV PRN (16:27)
--- NOTE | 2017-02-06 17:18 | RAD ---
PROCEDURE: Intraoperative fluoroscopy HISTORY: ISCHEMIA BOTH LEG COMPARISON: Not available TECHNIQUE: Intraoperative fluoroscopy was provided for bilateral lower extremity arteriography. Total time of fluoroscopy was 192.6 seconds. FINDINGS: Multiple fluoroscopic spot films are submitted and are on file for review. IMPRESSION: Fluoroscopy provided.
[2017-02-06] MEDS ORDERED: Simethicone 40 mg/0.6 ml Liquid (30 ml) PO SCH (18:00)
[2017-02-06] MEDS ORDERED: Heparin25000 units/250ml 1/2NS 25,000 UNITS/250 ML BAG IV PRN (20:15)
--- NOTE | 2017-02-07 01:40 | OP ---
PROCEDURE DATE: 02/05/2017 PREOPERATIVE DIAGNOSIS: Bilateral leg ischemia, possible bilateral emboli. PROCEDURE: Femoral embolectomy via groin incision, right and left with intraoperative angiograms. SURGEON: Dr. Kaur. COLOR SPECIALIST: Dr. Weller. ANESTHESIA ADMINISTERED BY: Dr. Osborne and Dr. Anthony. DESCRIPTION OF PROCEDURE: Patient is a 71-year-old man with a history of atrial fibrillation, off anticoagulation with also a history of multiple strokes in the past. Presented with history of severe leg pain, right worse than the left. Preoperative imaging showed that there was thrombosis, ? possible embolus in the right severe disease below the knee. It was difficult to say how much of this was chronic and how much of this was acute. Overall careful history from the patient appeared that he went from the right leg and a visible thrombus was an relatively acute event over the past few days while distally he had severe peripheral vascular disease. OPERATIVE FINDINGS: 1. Completion angiography failed to reveal evidence of any named vessels below the knee on both sides, nonetheless we removed approximately 25 cm long clot from the right common femoral and superficial femoral artery, with brisk restitution flow into the leg. Proximally we made multiple negative passes without retrieving any clot. 2. left side no clot was retrieved INDICATION: This is a 71-year-old man with a history extensive peripheral vascular disease who presented with increasing right leg pain. At that time, he underwent emergency bilateral exploration with retrieval of a great deal of clot from the right side, the common femoral, superficial femoral and on the left side, no clot. After closing the groins without these patches, we closed the wounds carefully in the groin and terminated the procedure. BLOOD LOSS: 250 plus mL. OPERATION CARRIED OUT: Bilateral femoral embolectomy by groin incision and angiography. Desmond Kaur Jr., MD [facility]
[2017-02-07] MEDS: Sodium Chloride 0.9% 1,000 ML IV SCH ×4 (02:05→21:36)
[2017-02-07 02:53] LABS: INR 1.2
[2017-02-07 06:31] LABS: BASO % 0.4 % (0.0-2.0); EOS # 0.1 K/uL (0.0-0.7); EOS % 1.2 % (0.0-4.0); HEMATOCRIT 35.9 % (35.0-51.0); LYMPH % 10.8 % (20.0-40.0); MEAN CELL VOLUME 78.4 fL (80.0-94.0); MEAN CORPUSCULAR HEMOGLOBIN 26.6 pg (27.0-31.0); MEAN CORPUSCULAR HGB CONC 33.9 g/dL (33.0-37.0); MEAN PLATELET VOLUME 8.7 fL (7.2-11.7); MONO % 10.6 % (0.0-10.0); NRBC % 0.1 % (0.0-2.0); RED CELL DISTRIBUTION WIDTH 16.9 % (11.5-14.5); WHITE BLOOD COUNT 9.5 K/uL (4.8-10.8)
[2017-02-07 07:06] LABS: ALB/GLOB RATIO 1.1 (1.0-2.1); ALKALINE PHOSPHATASE 74 U/L (38-126); ALT/SGPT 66 U/L (21-72); AST/SGOT 108 U/L (17-59); BILIRUBIN,TOTAL 0.3 mg/dL (0.2-1.3); BLOOD UREA NITROGEN 15 mg/dL (9-20); CALCIUM 7.9 mg/dl (8.6-10.4); CARBON DIOXIDE 21 mmol/L (22-30); CHLORIDE 102 mmol/L (98-107); GFR AFRICAN-AMERICAN > 60; GLUCOSE,RANDOM 99 mg/dL (75-110); POTASSIUM 3.7 mmol/L (3.6-5.2); SODIUM 134 mmol/L (132-148)
[2017-02-07] MEDS: NIFEdipine 60 mg ER Tab PO SCH (09:43)
[2017-02-07] MEDS: Simethicone 80 mg Chewtab PO SCH ×4 (09:44→21:53)
[2017-02-07] MEDS: diltiaZEM 180 mg/24 Hours CD Cap PO SCH (09:44)
--- NOTE | 2017-02-07 11:45 | CP.PCM.PN ---
Subjective - Date & Time of Evaluation Date of Evaluation: 02/07/17 Time of Evaluation: 06:30 - Subjective Subjective: Vascular Surgery- Dr. Kaur Pt S&E at bedside this AM. Is confused to time during encounter. Pt states pain in leg is significantly better. Dressing C/D/I Objective - Vital Signs/Intake and Output Vital Signs (last 24 hours): Temp Pulse Resp BP Pulse Ox 98.4 F 88 20 125/74 97 02/07/17 08:09 02/07/17 08:09 02/07/17 08:09 02/07/17 08:09 02/07/17 08:09 Intake and Output: 02/07/17 02/07/17 06:59 18:59 Intake Total 527 Output Total 1150 Balance -623 - Medications Medications: Current Medications Chlorthalidone (Hygroton) 25 mg PO DAILY [facility] Last Admin: 02/06/17 09:10 Dose: 25 mg Diltiazem HCl (Cardizem Cd) 180 mg PO DAILY [facility] Last Admin: 02/07/17 09:44 Dose: 180 mg Famotidine (Pepcid) 20 mg PO DAILY [facility] Last Admin: 02/07/17 09:44 Dose: 20 mg Hydromorphone HCl (Dilaudid) 0.5 mg IVP Q3H PRN PRN Reason: Pain, moderate (4-7) Last Admin: 02/06/17 02:41 Dose: 0.5 mg Sodium Chloride (Sodium Chloride 0.9%) 1,000 mls @ 100 mls/hr IV .Q10H [facility] Last Admin: 02/07/17 02:06 Dose: 100 mls/hr Heparin Sodium/Sodium Chloride (Heparin 58511 Units/250ml 1/2 Normal Saline) 25 ,000 units in 250 mls @ 14.515 mls/hr IV .[id number] PRN; Protocol; 16 UNITS/KG/HR PRN Reason: PROTOCOL Last Admin: 02/06/17 20:19 Dose: 16 units/kg/hr, 14.515 mls/hr Losartan Potassium (Cozaar) 100 mg PO DAILY [facility] Last Admin: 02/07/17 09:44 Dose: 100 mg Nifedipine (Procardia Xl) 60 mg PO DAILY [facility] Last Admin: 02/07/17 09:43 Dose: 60 mg Nitroglycerin (Nitro-Bid 2% Oint) 1 ea TOP Q6H PRN PRN Reason: Systolic Blood Pressure >180 Ondansetron HCl (Zofran Inj) 4 mg IVP Q6 PRN PRN Reason: Nausea/Vomiting Phenytoin Sodium (Dilantin) 100 mg PO TID [facility] Last Admin: 02/07/17 09:44 Dose: 100 mg Rosuvastatin Calcium (Crestor) 5 mg PO HS [facility] Last Admin: 02/06/17 22:19 Dose: 5 mg Simethicone (Mylicon Chew Tab) 80 mg PO QID [facility] Last Admin: 02/07/17 09:44 Dose: 80 mg - Labs Labs: 02/07/17 06:22 02/07/17 06:22 PT 13.8 SECONDS (9.7-12.2) H 02/07/17 02:41 INR 1.2 02/07/17 02:41 APTT 41 SECONDS (21-34) H D 02/07/17 11:05 - Constitutional Appears: No Acute Distress - Eye Exam Eye Exam: EOMI - ENT Exam ENT Exam: Mucous Membranes Moist - Respiratory Exam Respiratory Exam: NORMAL BREATHING PATTERN. absent: Accessory Muscle Use, Rales , Rhonchi - Cardiovascular Exam Cardiovascular Exam: +S1, +S2 Additional comments: non palpable non-dopplerable distal R LE pulses - GI/Abdominal Exam GI & Abdominal Exam: Soft, Normal Bowel Sounds. absent: Distended, Tenderness Additional comments: 71M s/p b/l femoral artery angioplasty and R [employer] thrombectomy POD # 2. - Continue pain management - Monitor BP - Continue vascular checks - Encourage IS use and ambulation - further recs per Dr. Vincent Issa PGY1 - Neurological Exam Neurological Exam: Alert, Awake, Oriented x3 - Psychiatric Exam Psychiatric exam: Normal Affect - Skin Skin Exam: Normal Color
--- NOTE | 2017-02-07 11:46 | CARD ---
APPROVED REPORT EXAM: Two-dimensional and M-mode echocardiogram with Doppler and color Doppler. Other Information Quality : Technically DifficultRhythm : Atrial Fibrillation RISK FACTORS Hypertension 2D DIMENSIONS IVSd1.6 (0.7-1.1cm)LVDd4.8 (3.9-5.9cm) LVOT Diameter2.3 (1.8-2.4cm)PWd1.3 (0.7-1.1cm) LVEF (%)60.0 (>50%) M-Mode DIMENSIONS Left Atrium (MM)3.99 (2.5-4.0cm)Aortic Root4.06 (2.2-3.7cm) Aortic Cusp Exc.2.40 (1.5-2.0cm) Aortic Valve AoV Peak Diavyxzw856.4cm/sAoV VTI37.2cmAO Peak GR.26mmHg LVOT Peak Smmzpdgw929.9cm/sLVOT VTI20.12cmAO Mean GR.15mmHg CANELO (VMAX)2.16kw4NFA (VTI)2.22cm2 Mitral Valve E/A ratio0.0 TDI E/Lateral E'0.0E/Medial E'0.0 Tricuspid Valve TR Peak Mzllivhg269gn/sTR Peak Gr.77ioBqHAAW41awHi LEFT VENTRICLE The left ventricle is normal size. There is mild concentric left ventricular hypertrophy. Left ventricle systolic function is normal. The Ejection Fraction is 55-60%. There is normal LV segmental wall motion. The left ventricular diastolic function is normal. No left ventricle thrombus noted on this study. RIGHT VENTRICLE The right ventricle is normal size. The right ventricular systolic function is normal. ATRIA The left atrium size is normal. The right atrium size is normal. AORTIC VALVE The aortic valve is moderately sclerotic. The aortic valve is trileaflet. There is moderate aortic regurgitation. There is no aortic valvular stenosis. There is no aortic valvular vegetation. TRICUSPID VALVE The tricuspid valve is normal in structure. There is trace to mild tricuspid regurgitation. Right ventricular systolic pressure is estimated at less than 30 mmHg. There is no pulmonary hypertension. There is no tricuspid valve prolapse or vegetation. There is no tricuspid valve stenosis. PULMONIC VALVE The pulmonic valve is not well visualized. GREAT VESSELS There is mild aortic root dilatation. The ascending aorta is Mildly dilated. The IVC is normal in size and collapses >50% with inspiration. PERICARDIAL EFFUSION There is no pericardial effusion. There is no pleural effusion. <Conclusion> Technically difficult study. There is mild concentric left ventricular hypertrophy. Left ventricle systolic function is normal. The Ejection Fraction is 55-60%. The left ventricular diastolic function is normal. The right ventricle is normal size. The right ventricular systolic function is normal. The left atrium size is normal. The right atrium size is normal. There is moderate aortic regurgitation. There is trace to mild tricuspid regurgitation. The aortic root and ascending aorta are mildly dilated.
[2017-02-07] MEDS: Heparin25000 units/250ml 1/2NS 25,000 UNITS/250 ML BAG IV PRN (13:10)
--- NOTE | 2017-02-07 15:57 | CP.PCM.PN ---
Subjective - Date & Time of Evaluation Date of Evaluation: 02/07/17 Time of Evaluation: 14:10 - Subjective Subjective: Medical Attending Note Patient seen, examined and case discussed with medicine day-time resident. Assistance with language translation, Elda, patient's nurse at bedside. Patient is awake, alert, oriented X3. patient is aware he in the hospital and awaiting his who is coming in later today. Patient reports he has had bowel movement and is urinating. Patient denies chest pain, denies palpitations, denies headache. Explained to the patient he has peripheral vascular disease, and extensive clot was removed from the right leg lower extremity. patient also understands will be on blood thinner for the rest of his life unless otherwise. Objective - Vital Signs/Intake and Output Vital Signs (last 24 hours): Temp Pulse Resp BP Pulse Ox 98.4 F 88 20 125/74 97 02/07/17 08:09 02/07/17 08:09 02/07/17 08:09 02/07/17 08:09 02/07/17 08:09 Intake and Output: 02/07/17 02/07/17 06:59 18:59 Intake Total 527 Output Total 1150 Balance -623 - Medications Medications: Current Medications Chlorthalidone (Hygroton) 25 mg PO DAILY [facility] Last Admin: 02/07/17 14:55 Dose: 25 mg Diltiazem HCl (Cardizem Cd) 180 mg PO DAILY [facility] Last Admin: 02/07/17 09:44 Dose: 180 mg Famotidine (Pepcid) 20 mg PO DAILY [facility] Last Admin: 02/07/17 09:44 Dose: 20 mg Hydromorphone HCl (Dilaudid) 0.5 mg IVP Q3H PRN PRN Reason: Pain, moderate (4-7) Last Admin: 02/06/17 02:41 Dose: 0.5 mg Sodium Chloride (Sodium Chloride 0.9%) 1,000 mls @ 100 mls/hr IV .Q10H [facility] Last Admin: 02/07/17 02:06 Dose: 100 mls/hr Heparin Sodium/Sodium Chloride (Heparin 48352 Units/250ml 1/2 Normal Saline) 25 ,000 units in 250 mls @ 16.329 mls/hr IV .[id number] PRN; Protocol; 18 UNITS/KG/HR PRN Reason: PROTOCOL Last Admin: 02/07/17 13:10 Dose: 18 units/kg/hr, 16.329 mls/hr Losartan Potassium (Cozaar) 100 mg PO DAILY [facility] Last Admin: 02/07/17 09:44 Dose: 100 mg Nifedipine (Procardia Xl) 60 mg PO DAILY [facility] Last Admin: 02/07/17 09:43 Dose: 60 mg Nitroglycerin (Nitro-Bid 2% Oint) 1 ea TOP Q6H PRN PRN Reason: Systolic Blood Pressure >180 Ondansetron HCl (Zofran Inj) 4 mg IVP Q6 PRN PRN Reason: Nausea/Vomiting Phenytoin Sodium (Dilantin) 100 mg PO TID [facility] Last Admin: 02/07/17 13:09 Dose: 100 mg Rosuvastatin Calcium (Crestor) 5 mg PO HS [facility] Last Admin: 02/06/17 22:19 Dose: 5 mg Simethicone (Mylicon Chew Tab) 80 mg PO QID [facility] Last Admin: 02/07/17 13:09 Dose: 80 mg - Labs Labs: 02/07/17 06:22 02/07/17 06:22 PT 13.8 SECONDS (9.7-12.2) H 02/07/17 02:41 INR 1.2 02/07/17 02:41 APTT 41 SECONDS (21-34) H D 02/07/17 11:05 - Constitutional Appears: Non-toxic, No Acute Distress - Head Exam Head Exam: NORMAL INSPECTION - Eye Exam Eye Exam: EOMI - ENT Exam ENT Exam: Mucous Membranes Moist - Respiratory Exam Respiratory Exam: Clear to Ausculation Bilateral, NORMAL BREATHING PATTERN. absent: Rales, Rhonchi, Wheezes - Cardiovascular Exam Cardiovascular Exam: Irregular Rhythm, +S1, +S2 - GI/Abdominal Exam GI & Abdominal Exam: Soft, Normal Bowel Sounds. absent: Distended (improved; less gasey), Firm, Guarding, Rigid, Tenderness, Rebound - Extremities Exam Extremities Exam: Pedal Edema (trace), Tenderness (right lower extremity) Additional comments: difficult to palpate any appreciate pulses leg appears warm - Neurological Exam Neurological Exam: Alert, Awake, Oriented x3 - Skin Skin Exam: Dry, Intact, Normal Color, Warm Assessment and Plan - Assessment and Plan (Free Text) Assessment: Assessment/Plan 1. Peripheral Arterial Disease, Severe Critical Limb Ischemia * Vascular surgery, Dr. Kaur consulted, help appreciated * Cardiology, Dr. Brown, help appreciated * Venous doppler: no DVT, incidental finding of left popliteal artery occluded * Abdominal Angiography (02/04/17): occlusion of the right common femoral artery , superficial femoral artery, popliteal artery, and popliteal trifurcation. Reconstitution of the right peroneal via collaterals with runoff to the foot. Occlusion of the left distal superficial femoral artery and popliteral artery. Reconstitution of the left tibial peroneal trunk and anterior tibial artery via collaterals below the trifurcation. Multifocal short segment disease within the anterior tibial artery and peroneal. 2 low density lesions within the liver not fully characterized due to small size. Focal areas of cortical atrophy in the right kdiney reflecting previous infection/infarction. Focall abnormal loop of small bowel noted within the mid abdomen. Affected loop demonstrates mild wall thickening and perienteric inflammatory change. * 02/05 Operation: b/l femoral artery thrombectomy w/angiogram-->thrombus removed * Unable to appreciate pulses by dopplers. Leg feels warm * Vascular surgery cleared for patient to be on Coumadin. * Heparin drip to be bridged to Coumadin. F/u INR; Patient to be given Coumadin 5mg PO tonight. 2. Malignant Hypertension * Cardiology consult: Dr. Brown, help appreciated * Patient was on Cardizem Drip-=->converted to PO Cardizem CD 180mg 1x/day * Blood pressure controlled on current regimen as below: Medications: * Chlorthalidone 25mg daily * Cozaar 100mg PO daily * Procardia XL 60mg PO daily * Cardizem CD 180mg PO daily * will have holding parameters on medications 3. History of Atrial Fibrillation * Cardiology consulted, Dr. Brown, help appreciated * Echo on 11/13/16: LVEF- 59% * Echocardiogram (completed post-operative): mild concentric left ventricular hypertrophy. Left ventricle systolic function is inormal. EF: 55-60%. left ventricular diastolic function is normal. Right ventricle is normal size. Right ventricular systolic function is normal. Left atrium size is normal. Right atrial size is normal. Moderate aortic regurgitation. Trace to mild tricuspid regurgitation. Aortic root and ascending aorta are mildly dilated * CHADS: 4: high risk of thromboembolic event; 8.5% risk of event per year if no coumadin * HASBLED: 2 (stroke; age; blood pressure is uncontrolled day but suspect due to pain after conversation with the daughter) * Heparin Drip-->to start Coumadin today, monitor INR * [id number] 5.5 4. History of Seizure Disorder * Continue home medication Dilantin 100 mg TID * CT head w/o contrast due to questionable fall-->patient did not have fall per daughter * CT Head: no evidence of acute intracranial hemorrhage. Large foci of encephalomalcia in brain suggestive of old infarction. Largest encephalomalacia seen at the right temporal parietal frontal love. Moderate aatrophy and moderate to extensive white mater changes suggestive of chronic microvascular ischemic disease * seizure precautions 5. History of multiple strokes * CT Head: no evidence of acute intracranial hemorrhage. Large foci of encephalomalcia in brain suggestive of old infarction. Largest encephalomalacia seen at the right temporal parietal frontal love. Moderate aatrophy and moderate to extensive white mater changes suggestive of chronic microvascular ischemic disease * Patient per home meds: on statin (lipitor), plavix, and anti-hypertensives * Has residual left side weakness since last stroke 2 years ago where his vision was affected and improved with prescription glasses * A1c: 5.5, Lipid Panel: HDL: 30, LDL:69 T Cholestrol:109 * Pending hypercoaguable workup; likely due to atrial fibrillation * Crestor 5mg POqHS * Will need to restart Plavix (after patient is bridged for stroke prophylaxis) 6. Prophylactic Measures * Pepcid 20mg daily for GI ppx * Start Heparin Drip bridge to Coumadin; f/u INR * PT eval * OOB * NS 100cc/hr per surgery
--- NOTE | 2017-02-07 20:26 | CP.PCM.PN ---
Subjective - Date & Time of Evaluation Date of Evaluation: 02/06/17 Time of Evaluation: 22:35 - Subjective Subjective: s/p thrombectomy poor infragenicular flow afib with VVR Objective - Vital Signs/Intake and Output Vital Signs (last 24 hours): Temp Pulse Resp BP Pulse Ox 98 F 92 H 20 125/68 98 02/07/17 15:00 02/07/17 15:00 02/07/17 15:00 02/07/17 15:00 02/07/17 15:00 - Medications Medications: Current Medications Chlorthalidone (Hygroton) 25 mg PO DAILY [facility] Last Admin: 02/07/17 14:55 Dose: 25 mg Diltiazem HCl (Cardizem Cd) 180 mg PO DAILY [facility] Last Admin: 02/07/17 09:44 Dose: 180 mg Famotidine (Pepcid) 20 mg PO DAILY [facility] Last Admin: 02/07/17 09:44 Dose: 20 mg Hydralazine HCl (Apresoline) 10 mg IVP Q6H PRN PRN Reason: Systolic Blood Pressure Hydromorphone HCl (Dilaudid) 0.5 mg IVP Q3H PRN PRN Reason: Pain, moderate (4-7) Last Admin: 02/06/17 02:41 Dose: 0.5 mg Sodium Chloride (Sodium Chloride 0.9%) 1,000 mls @ 100 mls/hr IV .Q10H [facility] Last Admin: 02/07/17 02:06 Dose: 100 mls/hr Heparin Sodium/Sodium Chloride (Heparin 81287 Units/250ml 1/2 Normal Saline) 25 ,000 units in 250 mls @ 16.329 mls/hr IV .[id number] PRN; Protocol; 18 UNITS/KG/HR PRN Reason: PROTOCOL Last Admin: 02/07/17 13:10 Dose: 18 units/kg/hr, 16.329 mls/hr Losartan Potassium (Cozaar) 100 mg PO DAILY [facility] Last Admin: 02/07/17 09:44 Dose: 100 mg Nifedipine (Procardia Xl) 60 mg PO DAILY [facility] Last Admin: 02/07/17 09:43 Dose: 60 mg Ondansetron HCl (Zofran Inj) 4 mg IVP Q6 PRN PRN Reason: Nausea/Vomiting Phenytoin Sodium (Dilantin) 100 mg PO TID [facility] Last Admin: 02/07/17 18:05 Dose: 100 mg Rosuvastatin Calcium (Crestor) 5 mg PO HS [facility] Last Admin: 02/06/17 22:19 Dose: 5 mg Simethicone (Mylicon Chew Tab) 80 mg PO QID [facility] Last Admin: 02/07/17 18:05 Dose: 80 mg - Labs Labs: 02/07/17 06:22 02/07/17 06:22 PT 13.8 SECONDS (9.7-12.2) H 02/07/17 02:41 INR 1.2 02/07/17 02:41 APTT 57 SECONDS (21-34) H D 02/07/17 19:55 - Constitutional Appears: Well - Head Exam Head Exam: ATRAUMATIC, NORMAL INSPECTION, NORMOCEPHALIC - Eye Exam Eye Exam: EOMI, Normal appearance, PERRL Pupil Exam: NORMAL ACCOMODATION, PERRL - ENT Exam ENT Exam: Mucous Membranes Moist, Normal Exam - Neck Exam Neck Exam: Full ROM, Normal Inspection. absent: Lymphadenopathy - Respiratory Exam Respiratory Exam: Clear to Ausculation Bilateral, NORMAL BREATHING PATTERN - Cardiovascular Exam Cardiovascular Exam: Irregular Rhythm, +S1, +S2, Murmur - GI/Abdominal Exam GI & Abdominal Exam: Soft, Normal Bowel Sounds. absent: Tenderness - Extremities Exam Extremities Exam: Full ROM, Normal Capillary Refill, Normal Inspection. absent : Joint Swelling, Pedal Edema - Back Exam Back Exam: NORMAL INSPECTION - Neurological Exam Neurological Exam: Alert, Awake, CN II-XII Intact, Oriented x3 - Psychiatric Exam Psychiatric exam: Normal Affect, Normal Mood - Skin Skin Exam: Dry, Intact, Normal Color, Warm Assessment and Plan (1) Atrial fibrillation Assessment & Plan: with VVR will adjust meds based on BP response on cardizem and heparin , will switch to OAC Status: Acute (2) HTN (hypertension), malignant Assessment & Plan: cont current meds Status: Acute (3) Preop cardiovascular exam Status: Acute (4) Critical lower limb ischemia Status: Acute
[2017-02-07] MEDS: HYDROmorphone 0.5 mg/0.5 ml ISec IVP PRN (21:53)
[2017-02-07] MEDS ORDERED: Oxycodone/Acetaminophen 5/325 mg Tab PO PRN (22:26)
[2017-02-08] MEDS: Heparin25000 units/250ml 1/2NS 25,000 UNITS/250 ML BAG IV PRN (04:52)
[2017-02-08 07:27] LABS: BASO % 0.3 % (0.0-2.0); EOS # 0.1 K/uL (0.0-0.7); EOS % 0.9 % (0.0-4.0); HEMATOCRIT 37.6 % (35.0-51.0); LYMPH % 8.4 % (20.0-40.0); MEAN CELL VOLUME 78.5 fL (80.0-94.0); MEAN CORPUSCULAR HEMOGLOBIN 26.2 pg (27.0-31.0); MEAN CORPUSCULAR HGB CONC 33.3 g/dL (33.0-37.0); MEAN PLATELET VOLUME 8.6 fL (7.2-11.7); MONO # 0.8 K/uL (0.0-0.8); MONO % 7.1 % (0.0-10.0); NRBC % 0.1 % (0.0-2.0); PLATELET COUNT 292 K/uL (130-400); RED CELL DISTRIBUTION WIDTH 16.7 % (11.5-14.5); WHITE BLOOD COUNT 11.7 K/uL (4.8-10.8)
[2017-02-08 07:36] LABS: ALKALINE PHOSPHATASE 88 U/L (38-126); ALT/SGPT 80 U/L (21-72); AST/SGOT 126 U/L (17-59); BILIRUBIN,TOTAL 0.4 mg/dL (0.2-1.3); BLOOD UREA NITROGEN 15 mg/dL (9-20); CALCIUM 8.4 mg/dl (8.6-10.4); CARBON DIOXIDE 22 mmol/L (22-30); CHLORIDE 100 mmol/L (98-107); GFR AFRICAN-AMERICAN > 60; GLUCOSE,RANDOM 95 mg/dL (75-110); POTASSIUM 3.6 mmol/L (3.6-5.2); SODIUM 134 mmol/L (132-148); TOTAL PROTEIN 5.8 g/dL (6.3-8.3)
[2017-02-08 07:37] LABS: INR 1.3
--- NOTE | 2017-02-08 08:55 | CP.PCM.PN ---
Subjective - Date & Time of Evaluation Date of Evaluation: 02/08/17 Time of Evaluation: 08:54 - Subjective Subjective: Vasc Sx: Dr Kaur Pt S&E. NAEO. Resting comfortably. Remains in house for coumadin bridging. Remains oriented today Objective - Vital Signs/Intake and Output Vital Signs (last 24 hours): Temp Pulse Resp BP Pulse Ox 98.0 F 98 H 20 142/85 96 02/08/17 08:44 02/08/17 08:44 02/08/17 08:44 02/08/17 08:44 02/08/17 08:44 Intake and Output: 02/08/17 02/08/17 06:59 18:59 Intake Total 1150 Output Total 300 Balance 850 - Medications Medications: Current Medications Chlorthalidone (Hygroton) 25 mg PO DAILY [facility] Last Admin: 02/07/17 14:55 Dose: 25 mg Diltiazem HCl (Cardizem Cd) 180 mg PO DAILY [facility] Last Admin: 02/07/17 09:44 Dose: 180 mg Enoxaparin Sodium (Lovenox) 90 mg SC Q12 [facility] Famotidine (Pepcid) 20 mg PO DAILY [facility] Last Admin: 02/07/17 09:44 Dose: 20 mg Hydralazine HCl (Apresoline) 10 mg IVP Q6H PRN PRN Reason: Systolic Blood Pressure Hydromorphone HCl (Dilaudid) 0.5 mg IVP Q3H PRN PRN Reason: Pain, severe (8-10) Losartan Potassium (Cozaar) 100 mg PO DAILY [facility] Last Admin: 02/07/17 09:44 Dose: 100 mg Ondansetron HCl (Zofran Inj) 4 mg IVP Q6 PRN PRN Reason: Nausea/Vomiting Oxycodone/Acetaminophen (Percocet 5/325 Mg Tab) 2 tab PO Q4H PRN PRN Reason: Pain, moderate (4-7) Stop: 02/10/17 22:27 Phenytoin Sodium (Dilantin) 100 mg PO TID [facility] Last Admin: 02/07/17 18:05 Dose: 100 mg Rosuvastatin Calcium (Crestor) 5 mg PO HS [facility] Last Admin: 02/07/17 21:53 Dose: 5 mg Simethicone (Mylicon Chew Tab) 80 mg PO QID [facility] Last Admin: 02/07/17 21:53 Dose: 80 mg - Labs Labs: 02/08/17 07:15 02/08/17 07:15 PT 14.8 SECONDS (9.7-12.2) H 02/08/17 07:15 INR 1.3 02/08/17 07:15 APTT 60 SECONDS (21-34) H D 02/08/17 07:15 - Constitutional Appears: Non-toxic, No Acute Distress - Respiratory Exam Respiratory Exam: absent: Respiratory Distress - Extremities Exam Additional comments: dressing c/d/i - Neurological Exam Neurological Exam: Alert, Awake, Oriented x3 - Psychiatric Exam Psychiatric exam: Normal Affect, Normal Mood Assessment and Plan - Assessment and Plan (Free Text) Assessment: 71M s/p b/l femoral artery angioplasty and R [employer] thrombectomy POD # 3 -Pt clear for D/C once INR therapeutic d/w Dr Vincent Bryson, PGY3
[2017-02-08] MEDS: diltiaZEM 180 mg/24 Hours CD Cap PO SCH (09:34)
[2017-02-08] MEDS: Enoxaparin 100 mg Syringe SC SCH ×2 (09:34→21:49)
[2017-02-08] MEDS: Simethicone 80 mg Chewtab PO SCH ×4 (09:34→21:48)
[2017-02-08 09:58] LABS: NEUTROPHIL 79 % (50-75); REACTIVE LYMPHOCYTES 1 % (0-0); TOTAL CELLS COUNTED 100
--- NOTE | 2017-02-08 11:08 | CP.PCM.PN ---
Subjective - Date & Time of Evaluation Date of Evaluation: 02/08/17 Time of Evaluation: 11:07 - Subjective Subjective: no better nor worse Objective - Vital Signs/Intake and Output Vital Signs (last 24 hours): Temp Pulse Resp BP Pulse Ox 98.0 F 98 H 20 142/85 96 02/08/17 08:44 02/08/17 08:44 02/08/17 08:44 02/08/17 08:44 02/08/17 08:44 Intake and Output: 02/08/17 02/08/17 06:59 18:59 Intake Total 1150 Output Total 300 Balance 850 - Medications Medications: Current Medications Chlorthalidone (Hygroton) 25 mg PO DAILY [facility] Last Admin: 02/08/17 09:34 Dose: 25 mg Diltiazem HCl (Cardizem Cd) 180 mg PO DAILY [facility] Last Admin: 02/08/17 09:34 Dose: 180 mg Enoxaparin Sodium (Lovenox) 90 mg SC Q12 [facility] Last Admin: 02/08/17 09:34 Dose: 90 mg Famotidine (Pepcid) 20 mg PO DAILY [facility] Last Admin: 02/08/17 09:34 Dose: 20 mg Hydralazine HCl (Apresoline) 10 mg IVP Q6H PRN PRN Reason: Systolic Blood Pressure Hydromorphone HCl (Dilaudid) 0.5 mg IVP Q3H PRN PRN Reason: Pain, severe (8-10) Losartan Potassium (Cozaar) 100 mg PO DAILY [facility] Last Admin: 02/08/17 09:34 Dose: 100 mg Ondansetron HCl (Zofran Inj) 4 mg IVP Q6 PRN PRN Reason: Nausea/Vomiting Oxycodone/Acetaminophen (Percocet 5/325 Mg Tab) 2 tab PO Q4H PRN PRN Reason: Pain, moderate (4-7) Stop: 02/10/17 22:27 Phenytoin Sodium (Dilantin) 100 mg PO TID [facility] Last Admin: 02/08/17 09:34 Dose: 100 mg Rosuvastatin Calcium (Crestor) 5 mg PO HS [facility] Last Admin: 02/07/17 21:53 Dose: 5 mg Simethicone (Mylicon Chew Tab) 80 mg PO QID [facility] Last Admin: 02/08/17 09:34 Dose: 80 mg - Labs Labs: 02/08/17 07:15 02/08/17 07:15 PT 14.8 SECONDS (9.7-12.2) H 02/08/17 07:15 INR 1.3 02/08/17 07:15 APTT 60 SECONDS (21-34) H D 02/08/17 07:15
--- NOTE | 2017-02-08 13:47 | CP.PCM.PN ---
Subjective - Date & Time of Evaluation Date of Evaluation: 02/08/17 Time of Evaluation: 11:25 - Subjective Subjective: Medical Attending Note: Patient seen, examined and case discussed with day-time resident. Patient seen with assistance in translation by both nurse, Elda and patient's daughter, Pura who came in shortly afterwards. Patient reports he is feeling good. Reports right leg pain. Patient is having regular bowel movements and urinating fine. Patient denies fever, denies chills, denies chest pain, denies cough, denies abdominal pain, denies nausea, denies constipation, reports right lower extremity leg pain at bedside. Explained with daughter assisting in translation, patient will need low salt diet to help with hypertension, compliance on anti-hypertensives, and anticoagulation (Coumadin) because the arrhtyhmia he has high risk for stroke, and given his recurrent stroke history, he will need to use Coumadin unless he has rectal bleeding, stool turns black or has a hemorrhagic stroke all of which he is advised he will need to be evaluated by a doctor immediately in those situations. Objective - Vital Signs/Intake and Output Vital Signs (last 24 hours): Temp Pulse Resp BP Pulse Ox 98.0 F 98 H 20 142/85 96 02/08/17 08:44 02/08/17 08:44 02/08/17 08:44 02/08/17 08:44 02/08/17 08:44 Intake and Output: 02/08/17 02/08/17 06:59 18:59 Intake Total 1150 Output Total 300 Balance 850 - Medications Medications: Current Medications Chlorthalidone (Hygroton) 25 mg PO DAILY [facility] Last Admin: 02/08/17 09:34 Dose: 25 mg Diltiazem HCl (Cardizem Cd) 180 mg PO DAILY [facility] Last Admin: 02/08/17 09:34 Dose: 180 mg Enoxaparin Sodium (Lovenox) 90 mg SC Q12 [facility] Last Admin: 02/08/17 09:34 Dose: 90 mg Famotidine (Pepcid) 20 mg PO DAILY [facility] Last Admin: 02/08/17 09:34 Dose: 20 mg Hydralazine HCl (Apresoline) 10 mg IVP Q6H PRN PRN Reason: Systolic Blood Pressure Hydromorphone HCl (Dilaudid) 0.5 mg IVP Q3H PRN PRN Reason: Pain, severe (8-10) Losartan Potassium (Cozaar) 100 mg PO DAILY [facility] Last Admin: 02/08/17 09:34 Dose: 100 mg Ondansetron HCl (Zofran Inj) 4 mg IVP Q6 PRN PRN Reason: Nausea/Vomiting Oxycodone/Acetaminophen (Percocet 5/325 Mg Tab) 2 tab PO Q4H PRN PRN Reason: Pain, moderate (4-7) Stop: 02/10/17 22:27 Phenytoin Sodium (Dilantin) 100 mg PO TID [facility] Last Admin: 02/08/17 13:29 Dose: 100 mg Rosuvastatin Calcium (Crestor) 5 mg PO HS [facility] Last Admin: 02/07/17 21:53 Dose: 5 mg Simethicone (Mylicon Chew Tab) 80 mg PO QID [facility] Last Admin: 02/08/17 13:26 Dose: 80 mg - Labs Labs: 02/08/17 07:15 02/08/17 07:15 PT 14.8 SECONDS (9.7-12.2) H 02/08/17 07:15 INR 1.3 02/08/17 07:15 APTT 60 SECONDS (21-34) H D 02/08/17 07:15 - Constitutional Appears: Non-toxic, No Acute Distress - Head Exam Head Exam: NORMAL INSPECTION - Eye Exam Eye Exam: EOMI - ENT Exam ENT Exam: Mucous Membranes Moist - Respiratory Exam Respiratory Exam: Clear to Ausculation Bilateral, NORMAL BREATHING PATTERN. absent: Rales, Rhonchi, Wheezes, Respiratory Distress - Cardiovascular Exam Cardiovascular Exam: Irregular Rhythm, +S1, +S2 - GI/Abdominal Exam GI & Abdominal Exam: Soft, Normal Bowel Sounds. absent: Distended, Firm, Guarding, Rigid, Tenderness, Rebound - Extremities Exam Extremities Exam: Pedal Edema Additional comments: difficult to palpable DP pulses warm foot - Back Exam Back Exam: absent: rash noted - Neurological Exam Neurological Exam: Alert, Awake, Oriented x3 Neuro motor strength exam: Left Upper Extremity: 4 (between 4/5), Right Upper Extremity: 5, Left Lower Extremity: 5, Right Lower Extremity: 5 - Skin Skin Exam: Dry, Normal Color, Warm Assessment and Plan - Assessment and Plan (Free Text) Assessment: 1. Peripheral Arterial Disease, Severe Critical Limb Ischemia * Vascular surgery, Dr. Kaur consulted, help appreciated * Cardiology, Dr. Brown, help appreciated * Venous doppler: no DVT, incidental finding of left popliteal artery occluded * Abdominal Angiography (02/04/17): occlusion of the right common femoral artery , superficial femoral artery, popliteal artery, and popliteal trifurcation. Reconstitution of the right peroneal via collaterals with runoff to the foot. Occlusion of the left distal superficial femoral artery and popliteral artery. Reconstitution of the left tibial peroneal trunk and anterior tibial artery via collaterals below the trifurcation. Multifocal short segment disease within the anterior tibial artery and peroneal. 2 low density lesions within the liver not fully characterized due to small size. Focal areas of cortical atrophy in the right kdiney reflecting previous infection/infarction. Focall abnormal loop of small bowel noted within the mid abdomen. Affected loop demonstrates mild wall thickening and perienteric inflammatory change. * 02/05 Operation: b/l femoral artery thrombectomy w/angiogram-->thrombus removed * Unable to appreciate pulses by dopplers. Leg feels warm * Vascular surgery cleared for patient to be on Coumadin. * Switched to therapuetic Lovenox bridge to Coumadin; ordered for Coumadin 5mg PO tonight-->f/u INR 2. Malignant Hypertension * Cardiology consult: Dr. Brown, help appreciated * Patient was on Cardizem Drip-=->converted to PO Cardizem CD 180mg 1x/day * Blood pressure controlled on current regimen as below: Medications: * Chlorthalidone 25mg daily * Cozaar 100mg PO daily * Cardizem CD 180mg PO daily--->will monitor blood pressure-->may need additional Cardizem today and increase CD dose of Cardizem * D/C Procardia in hopes to maximizing anti-hypertensives * Hydralazine 10mg IV Q6 H PRN SBP>160 * will have holding parameters on medications 3. History of Atrial Fibrillation * Cardiology consulted, Dr. Brown, help appreciated * Echo on 11/13/16: LVEF- 59% * Echocardiogram (completed post-operative): mild concentric left ventricular hypertrophy. Left ventricle systolic function is inormal. EF: 55-60%. left ventricular diastolic function is normal. Right ventricle is normal size. Right ventricular systolic function is normal. Left atrium size is normal. Right atrial size is normal. Moderate aortic regurgitation. Trace to mild tricuspid regurgitation. Aortic root and ascending aorta are mildly dilated * CHADS: 4: high risk of thromboembolic event; 8.5% risk of event per year if no coumadin * HASBLED: 2 (stroke; age; blood pressure is uncontrolled day but suspect due to pain after conversation with the daughter) * Theraputetic Lovenox bridge start Coumadin today, monitor INR * Bosn8aD 5.5 4. History of Seizure Disorder * Continue home medication Dilantin 100 mg TID * CT head w/o contrast due to questionable fall-->patient did not have fall per daughter * CT Head: no evidence of acute intracranial hemorrhage. Large foci of encephalomalcia in brain suggestive of old infarction. Largest encephalomalacia seen at the right temporal parietal frontal love. Moderate aatrophy and moderate to extensive white mater changes suggestive of chronic microvascular ischemic disease * seizure precautions 5. History of multiple strokes * CT Head: no evidence of acute intracranial hemorrhage. Large foci of encephalomalcia in brain suggestive of old infarction. Largest encephalomalacia seen at the right temporal parietal frontal love. 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 Prophylactic Measures * Pepcid 20mg daily for GI ppx * Therapuetic Lovenox bridge to Coumadin * PT eval: recommended for subacute rehab * OT eval: pending * OOB * Daughter: Pura Arshad ([phone]) Disposition: Patient is currently being bridge to therapuetic Lovenox to Coumadin. Patient cannot afford NOAC which is expensive. Awaiting patient to be at goal INR 2-3. Patient has hx of atrial fibrillation, not previously anti- coagulation, with hx of ten CVAs. Patient will need to be established in the clinic and will need follow-up for INR levels for atrial fibrillation. Per discussion with daughter, Pura, patient lives on the second floor. Patient will need to evaluated by physcial and occupational therapy. The daughter is also requesting for nursing services for her dad and reports she is willing to pay out of pocket for the nursing services.
[2017-02-08] MEDS: HYDROmorphone 0.5 mg/0.5 ml ISec IVP PRN (21:48)
--- NOTE | 2017-02-09 06:47 | CP.PCM.PN ---
Subjective - Date & Time of Evaluation Date of Evaluation: 02/09/17 Time of Evaluation: 06:46 - Subjective Subjective: Vasc Sx: Dr Kaur Pt S&E. NAEO. Resting comfortably. Pulses not palpable but reports less pain in foot. Being bridged to Coumadin. Yesterday INR 1.3 Objective - Vital Signs/Intake and Output Vital Signs (last 24 hours): Temp Pulse Resp BP Pulse Ox 98.5 F 118 H 20 146/78 97 02/09/17 04:18 02/09/17 04:18 02/09/17 04:18 02/09/17 04:18 02/08/17 23:20 Intake and Output: 02/08/17 02/09/17 18:59 06:59 Output Total 350 Balance -350 - Medications Medications: Current Medications Chlorthalidone (Hygroton) 25 mg PO DAILY [facility] Last Admin: 02/08/17 09:34 Dose: 25 mg Diltiazem HCl (Cardizem Cd) 180 mg PO DAILY [facility] Last Admin: 02/08/17 09:34 Dose: 180 mg Enoxaparin Sodium (Lovenox) 90 mg SC Q12 [facility] Last Admin: 02/08/17 21:49 Dose: 90 mg Famotidine (Pepcid) 20 mg PO DAILY [facility] Last Admin: 02/08/17 09:34 Dose: 20 mg Hydralazine HCl (Apresoline) 10 mg IVP Q6H PRN PRN Reason: Systolic Blood Pressure Hydromorphone HCl (Dilaudid) 0.5 mg IVP Q3H PRN PRN Reason: Pain, severe (8-10) Last Admin: 02/08/17 21:48 Dose: 0.5 mg Losartan Potassium (Cozaar) 100 mg PO DAILY [facility] Last Admin: 02/08/17 09:34 Dose: 100 mg Ondansetron HCl (Zofran Inj) 4 mg IVP Q6 PRN PRN Reason: Nausea/Vomiting Oxycodone/Acetaminophen (Percocet 5/325 Mg Tab) 2 tab PO Q4H PRN PRN Reason: Pain, moderate (4-7) Stop: 02/10/17 22:27 Phenytoin Sodium (Dilantin) 100 mg PO TID [facility] Last Admin: 02/08/17 18:35 Dose: 100 mg Rosuvastatin Calcium (Crestor) 5 mg PO HS [facility] Last Admin: 02/08/17 21:48 Dose: 5 mg Simethicone (Mylicon Chew Tab) 80 mg PO QID [facility] Last Admin: 02/08/17 21:48 Dose: 80 mg - Labs Labs: 02/08/17 07:15 02/08/17 07:15 PT 14.8 SECONDS (9.7-12.2) H 02/08/17 07:15 INR 1.3 02/08/17 07:15 APTT 60 SECONDS (21-34) H D 02/08/17 07:15 - Constitutional Appears: Non-toxic, No Acute Distress - Respiratory Exam Respiratory Exam: absent: Accessory Muscle Use, Respiratory Distress - GI/Abdominal Exam GI & Abdominal Exam: Soft. absent: Distended, Tenderness - Extremities Exam Additional comments: RLE bandage C/D/I Assessment and Plan - Assessment and Plan (Free Text) Assessment: 71M POD#4 s/p Right [employer]ANT thrombectomy Plan: clear for d/c once INR therapeutic d/w Dr Vincent Bryson, PGY3
[2017-02-09 07:30] LABS: BASO % 0.2 % (0.0-2.0); EOS # 0.1 K/uL (0.0-0.7); EOS % 0.9 % (0.0-4.0); HEMATOCRIT 39.3 % (35.0-51.0); INR 1.7; LYMPH # 0.9 K/uL (1.0-4.3); LYMPH % 7.9 % (20.0-40.0); MEAN CELL VOLUME 79.1 fL (80.0-94.0); MEAN CORPUSCULAR HEMOGLOBIN 26.3 pg (27.0-31.0); MEAN CORPUSCULAR HGB CONC 33.2 g/dL (33.0-37.0); MEAN PLATELET VOLUME 8.6 fL (7.2-11.7); MONO # 0.9 K/uL (0.0-0.8); MONO % 7.9 % (0.0-10.0); NRBC % 0.2 % (0.0-2.0); PLATELET COUNT 356 K/uL (130-400); RED CELL DISTRIBUTION WIDTH 16.9 % (11.5-14.5); WHITE BLOOD COUNT 11.9 K/uL (4.8-10.8)
[2017-02-09 07:39] LABS: ALB/GLOB RATIO 0.9 (1.0-2.1); ALKALINE PHOSPHATASE 100 U/L (38-126); ALT/SGPT 89 U/L (21-72); AST/SGOT 131 U/L (17-59); BILIRUBIN,TOTAL 0.4 mg/dL (0.2-1.3); BLOOD UREA NITROGEN 15 mg/dL (9-20); CALCIUM 8.6 mg/dl (8.6-10.4); CARBON DIOXIDE 27 mmol/L (22-30); CHLORIDE 97 mmol/L (98-107); GFR AFRICAN-AMERICAN > 60; GLUCOSE,RANDOM 102 mg/dL (75-110); POTASSIUM 3.7 mmol/L (3.6-5.2); SODIUM 137 mmol/L (132-148); TOTAL PROTEIN 6.2 g/dL (6.3-8.3)
[2017-02-09] MEDS: diltiaZEM 180 mg/24 Hours CD Cap PO SCH ×2 (08:38→10:00)
[2017-02-09 08:59] LABS: NEUTROPHIL 88 % (50-75); TOTAL CELLS COUNTED 100
[2017-02-09] MEDS: Enoxaparin 100 mg Syringe SC SCH ×2 (10:01→21:28)
[2017-02-09] MEDS: Simethicone 80 mg Chewtab PO SCH ×4 (10:01→21:28)
--- NOTE | 2017-02-09 10:09 | CP.PCM.PN ---
<Luci Floyd - Last Filed: 02/09/17 14:41> Subjective - Date & Time of Evaluation Date of Evaluation: 02/09/17 Time of Evaluation: 08:00 - Subjective Subjective: PGY1- Medicine Note- Dr. Vines's Service Patient seen and examined at bedside and in no acute distress. Patient denies any acute complaints today including no shortness of breath, chest pain, abdominal pain, n/v, d/c. Objective - Vital Signs/Intake and Output Vital Signs (last 24 hours): Temp Pulse Resp BP Pulse Ox 98.1 F 76 20 164/92 H 97 02/09/17 09:06 02/09/17 10:00 02/09/17 09:06 02/09/17 10:00 02/09/17 09:06 Intake and Output: 02/09/17 02/09/17 06:59 18:59 Output Total 350 Balance -350 - Medications Medications: Current Medications Chlorthalidone (Hygroton) 25 mg PO DAILY [facility] Last Admin: 02/09/17 10:01 Dose: 25 mg Diltiazem HCl (Cardizem Cd) 180 mg PO DAILY [facility] Last Admin: 02/09/17 10:00 Dose: Not Given Enoxaparin Sodium (Lovenox) 90 mg SC Q12 [facility] Last Admin: 02/09/17 10:01 Dose: 90 mg Famotidine (Pepcid) 20 mg PO DAILY [facility] Last Admin: 02/09/17 10:01 Dose: 20 mg Hydralazine HCl (Apresoline) 10 mg IVP Q6H PRN PRN Reason: Systolic Blood Pressure Hydromorphone HCl (Dilaudid) 0.5 mg IVP Q3H PRN PRN Reason: Pain, severe (8-10) Last Admin: 02/08/17 21:48 Dose: 0.5 mg Losartan Potassium (Cozaar) 100 mg PO DAILY [facility] Last Admin: 02/09/17 10:01 Dose: 100 mg Ondansetron HCl (Zofran Inj) 4 mg IVP Q6 PRN PRN Reason: Nausea/Vomiting Oxycodone/Acetaminophen (Percocet 5/325 Mg Tab) 2 tab PO Q4H PRN PRN Reason: Pain, moderate (4-7) Stop: 02/10/17 22:27 Phenytoin Sodium (Dilantin) 100 mg PO TID [facility] Last Admin: 02/09/17 10:01 Dose: 100 mg Rosuvastatin Calcium (Crestor) 5 mg PO HS [facility] Last Admin: 02/08/17 21:48 Dose: 5 mg Simethicone (Mylicon Chew Tab) 80 mg PO QID [facility] Last Admin: 02/09/17 10:01 Dose: 80 mg - Labs Labs: 02/09/17 07:17 02/09/17 07:17 PT 18.9 SECONDS (9.7-12.2) H 02/09/17 07:17 INR 1.7 02/09/17 07:17 APTT 60 SECONDS (21-34) H D 02/08/17 07:15 - Constitutional Appears: Non-toxic, No Acute Distress - Head Exam Head Exam: ATRAUMATIC, NORMAL INSPECTION, NORMOCEPHALIC - Eye Exam Eye Exam: EOMI, Normal appearance - ENT Exam ENT Exam: Mucous Membranes Moist - Neck Exam Neck Exam: Full ROM. absent: Lymphadenopathy - Respiratory Exam Respiratory Exam: Clear to Ausculation Bilateral, NORMAL BREATHING PATTERN - Cardiovascular Exam Cardiovascular Exam: Irregular Rhythm. absent: Murmur - GI/Abdominal Exam GI & Abdominal Exam: Soft, Normal Bowel Sounds. absent: Tenderness - Extremities Exam Extremities Exam: Pedal Edema - Neurological Exam Neurological Exam: Alert, Awake - Psychiatric Exam Psychiatric exam: Normal Affect, Normal Mood - Skin Skin Exam: Intact, Normal Color, Warm Assessment and Plan - Assessment and Plan (Free Text) Assessment: 1. Peripheral Arterial Disease, Severe Critical Limb Ischemia * 02/05: b/l femoral artery thrombectomy w/angiogram-->thrombus removed * Vascular surgery, Dr. Kaur consulted, help appreciated * Cardiology, Dr. Brown, help appreciated * Venous doppler: no DVT, incidental finding of left popliteal artery occluded * Abdominal Angiography (02/04/17): occlusion of the right common femoral artery , superficial femoral artery, popliteal artery, and popliteal trifurcation. Reconstitution of the right peroneal via collaterals with runoff to the foot. Occlusion of the left distal superficial femoral artery and popliteral artery. Reconstitution of the left tibial peroneal trunk and anterior tibial artery via collaterals below the trifurcation. Multifocal short segment disease within the anterior tibial artery and peroneal. 2 low density lesions within the liver not fully characterized due to small size. Focal areas of cortical atrophy in the right kdiney reflecting previous infection/infarction. Focall abnormal loop of small bowel noted within the mid abdomen. Affected loop demonstrates mild wall thickening and perienteric inflammatory change. * Unable to appreciate pulses by dopplers. Leg feels warm * Vascular surgery cleared for patient to be on Coumadin. * Switched to therapuetic Lovenox bridge to Coumadin; ordered for Coumadin 5mg PO tonight-->f/u INR * INR on 02/09:1.7 2. Malignant Hypertension * Cardiology consult: Dr. Brown, help appreciated * Patient was on Cardizem Drip-=->converted to PO Cardizem CD 180mg 1x/day, inceased to 240 mg daily on 02/09 * Blood pressure controlled on current regimen as below: Medications: * Chlorthalidone 25mg daily * Cozaar 100mg PO daily * Cardizem CD increased to 240 mg daily (from 180 mg on 02/09) * Hydralazine 10mg IV Q6 H PRN SBP>160 3. History of Atrial Fibrillation * Cardiology consulted, Dr. Brown, help appreciated * Echo on 11/13/16: LVEF- 59% * Echocardiogram (completed post-operative): mild concentric left ventricular hypertrophy. Left ventricle systolic function is inormal. EF: 55-60%. left ventricular diastolic function is normal. Right ventricle is normal size. Right ventricular systolic function is normal. Left atrium size is normal. Right atrial size is normal. Moderate aortic regurgitation. Trace to mild tricuspid regurgitation. Aortic root and ascending aorta are mildly dilated * CHADS: 4: high risk of thromboembolic event; 8.5% risk of event per year if no coumadin * HASBLED: 2 (stroke; age; blood pressure is uncontrolled day but suspect due to pain after conversation with the daughter) * Theraputetic Lovenox bridge started Coumadin on 02/06 , monitor INR * Nuil7pF 5.5 4. History of Seizure Disorder * Continue home medication Dilantin 100 mg TID * CT head w/o contrast due to questionable fall-->patient did not have fall per daughter * CT Head: no evidence of acute intracranial hemorrhage. Large foci of encephalomalcia in brain suggestive of old infarction. Largest encephalomalacia seen at the right temporal parietal frontal love. Moderate atrophy and moderate to extensive white mater changes suggestive of chronic microvascular ischemic disease * seizure precautions 5. History of multiple strokes * CT Head: no evidence of acute intracranial hemorrhage. Large foci of encephalomalcia in brain suggestive of old infarction. Largest encephalomalacia seen at the right temporal parietal frontal love. 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 Prophylactic Measures * Pepcid 20mg daily for GI ppx * Therapuetic Lovenox bridge to Coumadin * PT eval: recommended for subacute rehab * OT eval: pending * OOB * Daughter: Pura Arshad ([phone]) Disposition: Patient is currently being bridge to therapuetic Lovenox to Coumadin. Patient cannot afford NOAC which is expensive. Awaiting patient to be at goal INR 2-3. Patient has hx of atrial fibrillation, not previously anti- coagulation, with hx of ten CVAs. Patient will need to be established in the clinic and will need follow-up for INR levels for atrial fibrillation. Per discussion with daughter, Pura, patient lives on the second floor. Patient will need to evaluated by physcial and occupational therapy. The daughter is also requesting for nursing services for her dad and reports she is willing to pay out of pocket for the nursing services. <Unruly Vines - Last Filed: 02/09/17 15:17> Objective - Vital Signs/Intake and Output Vital Signs (last 24 hours): Temp Pulse Resp BP Pulse Ox 98.1 F 96 H 20 164/81 H 98 02/09/17 09:06 02/09/17 14:16 02/09/17 11:38 02/09/17 14:16 02/09/17 11:38 Intake and Output: 02/09/17 02/09/17 06:59 18:59 Output Total 350 Balance -350 - Medications Medications: Current Medications Chlorthalidone (Hygroton) 25 mg PO DAILY [facility] Last Admin: 02/09/17 10:01 Dose: 25 mg Diltiazem HCl (Cardizem Cd) 240 mg PO DAILY [facility] Enoxaparin Sodium (Lovenox) 90 mg SC Q12 [facility] Last Admin: 02/09/17 10:01 Dose: 90 mg Famotidine (Pepcid) 20 mg PO DAILY [facility] Last Admin: 02/09/17 10:01 Dose: 20 mg Hydralazine HCl (Apresoline) 10 mg IVP Q6H PRN PRN Reason: Systolic Blood Pressure Hydromorphone HCl (Dilaudid) 0.5 mg IVP Q3H PRN PRN Reason: Pain, severe (8-10) Last Admin: 02/09/17 14:17 Dose: 0.5 mg Losartan Potassium (Cozaar) 100 mg PO DAILY [facility] Last Admin: 02/09/17 10:01 Dose: 100 mg Ondansetron HCl (Zofran Inj) 4 mg IVP Q6 PRN PRN Reason: Nausea/Vomiting Oxycodone/Acetaminophen (Percocet 5/325 Mg Tab) 2 tab PO Q4H PRN PRN Reason: Pain, moderate (4-7) Stop: 02/10/17 22:27 Phenytoin Sodium (Dilantin) 100 mg PO TID [facility] Last Admin: 02/09/17 14:17 Dose: 100 mg Rosuvastatin Calcium (Crestor) 5 mg PO HS [facility] Last Admin: 02/08/17 21:48 Dose: 5 mg Simethicone (Mylicon Chew Tab) 80 mg PO QID [facility] Last Admin: 02/09/17 14:17 Dose: 80 mg Warfarin Sodium (Coumadin) 5 mg PO 1800 ONE Stop: 02/09/17 18:01 - Labs Labs: 02/09/17 07:17 02/09/17 07:17 PT 18.9 SECONDS (9.7-12.2) H 02/09/17 07:17 INR 1.7 02/09/17 07:17 APTT 60 SECONDS (21-34) H D 02/08/17 07:15 Attending/Attestation - Attestation I have personally seen and examined this patient.: Yes I have fully participated in the care of the patient.: Yes I have reviewed all pertinent clinical information, including history, physical exam and plan: Yes Notes (Text): 02/09/17 15:08 Hospitalist Progress Note Patient was seen and examined at 11:30 AM 02/09/17. 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 Currently upon FULL ROS: I have just had a bowel movement and need help getting cleaned up Right Foot foot pain that is minimal and comes and goes NO other complaints upon FULL ROS Exam: General: Awake and Alert, NAD HEENT: NCA, EOMI, PERRLA, NO lymphadenopathy, NO thyromegaly, NO pharyngeal erythema/exudate Cardio: NS1 and NS2, NO M/R/G Respiratory: CTA B/L, NO R/R/W GI: BSx4, Soft, Central Obesity therefore Liver and Spleen could not be adequately palpated, NO guarding/rebound tenderness Ext: Bilateral Pulses UE and LE are strong and equal, Capillary Refill is 2 seconds, NO edema Neuro: CN II through XII are grossly intact Assessments: 1). PAD: Coumadin 5 mg PO x 1 dose tonight, INR is 1.7, F/U INR 02/09/17 2). Malignant HTN: Chlorthalidone, Cozaar, Hydralazine PRN, and Cardizem CD increased to 240 mg (heart rate in the 120s during the night of 02/08/17 on Telemetry) 3). Hx Atrial Fibrillation 4). Hx Seizure Disorder: F/U Dilantin level 02/10/17 5). Hx Multiple CVAs: Crestor 6). Elevated LFTs: could be secondary to the Dilantin. Monitor 7). Prophylaxis: Pepcid, Dilaudid, Zofran, Percocet, Simethicone Medicine Team will speak with Licensed Investment Sales Assistant/Ruby On Rails Web Developer on 02/10/17 concerning setting up Home Visiting Nurse (Daughter is willing to pay out of pocket). Patient will also need to be seen by PT prior to discharge (he lives on the second floor). Unruly Vines D.O.
[2017-02-09] MEDS: HYDROmorphone 0.5 mg/0.5 ml ISec IVP PRN (14:17)
[2017-02-10 07:40] LABS: BASO % 0.2 % (0.0-2.0); EOS # 0.1 K/uL (0.0-0.7); EOS % 0.7 % (0.0-4.0); HEMATOCRIT 37.7 % (35.0-51.0); LYMPH % 7.4 % (20.0-40.0); MEAN CELL VOLUME 77.5 fL (80.0-94.0); MEAN CORPUSCULAR HEMOGLOBIN 26.3 pg (27.0-31.0); MEAN CORPUSCULAR HGB CONC 33.9 g/dL (33.0-37.0); MEAN PLATELET VOLUME 8.3 fL (7.2-11.7); MONO % 7.3 % (0.0-10.0); PLATELET COUNT 386 K/uL (130-400); RED CELL DISTRIBUTION WIDTH 16.7 % (11.5-14.5); WHITE BLOOD COUNT 13.8 K/uL (4.8-10.8)
[2017-02-10 07:42] LABS: INR 1.7
--- NOTE | 2017-02-10 07:56 | CP.PCM.PN ---
<Eloisa Crowe - Last Filed: 02/10/17 12:59> Subjective - Date & Time of Evaluation Date of Evaluation: 02/10/17 Time of Evaluation: 07:54 - Subjective Subjective: Patient seen and examined at bedside and in no acute distress. Patient denies any acute complaints today including no shortness of breath, chest pain, abdominal pain, n/v, d/c. Pt is still having some RLE pain. Pt HR ranging between 110-125 today. Pt also having cough productive of white sputum per nursing. Objective - Vital Signs/Intake and Output Vital Signs (last 24 hours): Temp Pulse Resp BP Pulse Ox 97.6 F 90 20 133/82 98 02/10/17 04:00 02/10/17 04:00 02/10/17 04:00 02/10/17 04:00 02/10/17 04:00 Intake and Output: 02/10/17 02/10/17 06:59 18:59 Output Total 300 Balance -300 - Medications Medications: Current Medications Chlorthalidone (Hygroton) 25 mg PO DAILY [facility] Last Admin: 02/09/17 10:01 Dose: 25 mg Diltiazem HCl (Cardizem Cd) 240 mg PO DAILY [facility] Enoxaparin Sodium (Lovenox) 90 mg SC Q12 [facility] Last Admin: 02/09/17 21:28 Dose: 90 mg Famotidine (Pepcid) 20 mg PO DAILY [facility] Last Admin: 02/09/17 10:01 Dose: 20 mg Hydralazine HCl (Apresoline) 10 mg IVP Q6H PRN PRN Reason: Systolic Blood Pressure Hydromorphone HCl (Dilaudid) 0.5 mg IVP Q3H PRN PRN Reason: Pain, severe (8-10) Last Admin: 02/09/17 14:17 Dose: 0.5 mg Losartan Potassium (Cozaar) 100 mg PO DAILY [facility] Last Admin: 02/09/17 10:01 Dose: 100 mg Ondansetron HCl (Zofran Inj) 4 mg IVP Q6 PRN PRN Reason: Nausea/Vomiting Oxycodone/Acetaminophen (Percocet 5/325 Mg Tab) 2 tab PO Q4H PRN PRN Reason: Pain, moderate (4-7) Stop: 02/10/17 22:27 Phenytoin Sodium (Dilantin) 100 mg PO TID [facility] Last Admin: 02/09/17 17:27 Dose: 100 mg Rosuvastatin Calcium (Crestor) 5 mg PO HS [facility] Last Admin: 02/09/17 21:28 Dose: 5 mg Simethicone (Mylicon Chew Tab) 80 mg PO QID [facility] Last Admin: 02/09/17 21:28 Dose: 80 mg - Labs Labs: 02/10/17 07:24 02/09/17 07:17 PT 19.1 SECONDS (9.7-12.2) H 02/10/17 07:24 INR 1.7 02/10/17 07:24 APTT 31 SECONDS (21-34) D 02/10/17 07:24 - Constitutional Appears: Non-toxic, No Acute Distress - Head Exam Head Exam: NORMAL INSPECTION - Eye Exam Eye Exam: EOMI - ENT Exam ENT Exam: Mucous Membranes Moist - Respiratory Exam Respiratory Exam: Clear to Ausculation Bilateral, NORMAL BREATHING PATTERN - Cardiovascular Exam Cardiovascular Exam: Tachycardia, Irregular Rhythm, +S1, +S2. absent: Bradycardia - GI/Abdominal Exam GI & Abdominal Exam: Soft, Normal Bowel Sounds. absent: Distended, Tenderness - Extremities Exam Extremities Exam: Pedal Edema, Tenderness (RLE medial thigh) Additional comments: Bandage on RLE c/d/i. No erythema or swelling of RLE. - Neurological Exam Neurological Exam: Alert, Awake - Psychiatric Exam Psychiatric exam: Normal Affect, Normal Mood - Skin Skin Exam: Dry, Intact, Warm Assessment and Plan - Assessment and Plan (Free Text) Assessment: Peripheral Arterial Disease, Severe Critical Limb Ischemia * 02/05: b/l femoral artery thrombectomy w/angiogram-->thrombus removed * Vascular surgery, Dr. Kaur consulted, help appreciated * Cardiology, Dr. Brown, help appreciated * Venous doppler: no DVT, incidental finding of left popliteal artery occluded * Abdominal Angiography (02/04/17): occlusion of the right common femoral artery , superficial femoral artery, popliteal artery, and popliteal trifurcation. Reconstitution of the right peroneal via collaterals with runoff to the foot. Occlusion of the left distal superficial femoral artery and popliteral artery. Reconstitution of the left tibial peroneal trunk and anterior tibial artery via collaterals below the trifurcation. Multifocal short segment disease within the anterior tibial artery and peroneal. 2 low density lesions within the liver not fully characterized due to small size. Focal areas of cortical atrophy in the right kdiney reflecting previous infection/infarction. Focall abnormal loop of small bowel noted within the mid abdomen. Affected loop demonstrates mild wall thickening and perienteric inflammatory change. * Unable to appreciate pulses by dopplers. Leg feels warm * Vascular surgery cleared for patient to be on Coumadin. * Switched to therapuetic Lovenox bridge to Coumadin; ordered for Coumadin 5mg PO tonight-->f/u INR * INR on 02/10: 1.7 Malignant Hypertension * Cardiology consult: Dr. Brown, help appreciated * Patient was on Cardizem Drip-=->converted to PO Cardizem CD 180mg 1x/day, inceased to 240 mg daily on 02/09 * Blood pressure controlled on current regimen as below: Medications: * Chlorthalidone 25mg daily * Cozaar 100mg PO daily * Cardizem CD increased to 240 mg daily (from 180 mg on 02/09) * Hydralazine 10mg IV Q6 H PRN SBP>160 History of Atrial Fibrillation * Cardiology consulted, Dr. Brown * Increased metoprolol to 50 mg PO BID * Echo on 11/13/16: LVEF- 59% * Echocardiogram (completed post-operative): mild concentric left ventricular hypertrophy. Left ventricle systolic function is inormal. EF: 55-60%. left ventricular diastolic function is normal. Right ventricle is normal size. Right ventricular systolic function is normal. Left atrium size is normal. Right atrial size is normal. Moderate aortic regurgitation. Trace to mild tricuspid regurgitation. Aortic root and ascending aorta are mildly dilated * CHADS: 4: high risk of thromboembolic event; 8.5% risk of event per year if no coumadin * HASBLED: 2 (stroke; age; blood pressure is uncontrolled day but suspect due to pain after conversation with the daughter) * Theraputetic Lovenox bridge started Coumadin on 02/06 , monitor INR * Fdfg9tD 5.5 * 02/10 HR ranging between 110-125 * Extra dose of cardizem given at 1320 * Cardizem increased to 360 mg for 02/11 * f/u BC and UC History of Seizure Disorder * Continue home medication Dilantin 100 mg TID * Phenytoin level = 3.4 * Neuro consult ([facility]) - recs appreciated for possible med switch * CT head w/o contrast due to questionable fall-->patient did not have fall per daughter * CT Head: no evidence of acute intracranial hemorrhage. Large foci of encephalomalcia in brain suggestive of old infarction. Largest encephalomalacia seen at the right temporal parietal frontal love. Moderate atrophy and moderate to extensive white mater changes suggestive of chronic microvascular ischemic disease * seizure precautions Elevated LFTs * AST 139 * ALT 105 History of multiple strokes * CT Head: no evidence of acute intracranial hemorrhage. Large foci of encephalomalcia in brain suggestive of old infarction. Largest encephalomalacia seen at the right temporal parietal frontal love. Moderate aatrophy and moderate to extensive white mater changes suggestive of chronic microvascular ischemic disease * Patient per home meds: on statin (lipitor), plavix, and anti-hypertensives * Has residual left side weakness since last stroke 2 years ago where his vision was affected and improved with prescription glasses * A1c: 5.5, Lipid Panel: HDL: 30, LDL:69 T Cholestrol:109 * Pending hypercoaguable workup; likely due to atrial fibrillation * Crestor 5mg POqHS * Will need to restart Plavix (after patient is bridged for stroke prophylaxis) for stroke prophylaxis Prophylactic Measures * Pepcid 20mg daily for GI ppx * Therapuetic Lovenox bridge to Coumadin * PT eval: recommended for subacute rehab * OT eval: pending * OOB * Daughter: Pura Arshad ([phone]) Disposition: Patient is currently being bridge to therapuetic Lovenox to Coumadin. Patient cannot afford NOAC which is expensive. Awaiting patient to be at goal INR 2-3. Patient has hx of atrial fibrillation, not previously anti- coagulation, with hx of ten CVAs. Patient will need to be established in the clinic and will need follow-up for INR levels for atrial fibrillation. Per discussion with daughter, Pura, patient lives on the second floor. Patient will need to evaluated by physcial and occupational therapy. The daughter is also requesting for nursing services for her dad and reports she is willing to pay out of pocket for the nursing services. <Unruly Vines - Last Filed: 02/10/17 17:30> Objective - Vital Signs/Intake and Output Vital Signs (last 24 hours): Temp Pulse Resp BP Pulse Ox 97.6 F 84 20 132/73 98 02/10/17 15:00 02/10/17 16:38 02/10/17 15:00 02/10/17 15:00 02/10/17 15:00 Intake and Output: 02/10/17 02/10/17 06:59 18:59 Intake Total 500 Output Total 300 Balance -300 500 - Medications Medications: Current Medications Chlorthalidone (Hygroton) 25 mg PO DAILY [facility] Last Admin: 02/10/17 09:24 Dose: 25 mg Diltiazem HCl (Cardizem Cd) 360 mg PO DAILY [facility] Enoxaparin Sodium (Lovenox) 90 mg SC Q12 [facility] Last Admin: 02/10/17 09:23 Dose: 90 mg Famotidine (Pepcid) 20 mg PO DAILY [facility] Last Admin: 02/10/17 09:24 Dose: 20 mg Hydralazine HCl (Apresoline) 10 mg IVP Q6H PRN PRN Reason: Systolic Blood Pressure Hydromorphone HCl (Dilaudid) 0.5 mg IVP Q3H PRN PRN Reason: Pain, severe (8-10) Last Admin: 02/10/17 13:44 Dose: 0.5 mg Losartan Potassium (Cozaar) 100 mg PO DAILY [facility] Last Admin: 02/10/17 09:23 Dose: 100 mg Metoprolol Tartrate (Lopressor) 50 mg PO Q12 [facility] Last Admin: 02/10/17 11:49 Dose: 50 mg Ondansetron HCl (Zofran Inj) 4 mg IVP Q6 PRN PRN Reason: Nausea/Vomiting Oxycodone/Acetaminophen (Percocet 5/325 Mg Tab) 1 tab PO Q6H PRN PRN Reason: Pain, moderate (4-7) Stop: 02/13/17 14:36 Last Admin: 02/10/17 16:35 Dose: 1 tab Phenytoin Sodium (Dilantin) 100 mg PO TID [facility] Last Admin: 02/10/17 13:37 Dose: 100 mg Simethicone (Mylicon Chew Tab) 80 mg PO QID [facility] Last Admin: 02/10/17 13:37 Dose: 80 mg Warfarin Sodium (Coumadin) 5 mg PO 1800 [facility] Stop: 02/10/17 18:01 - Labs Labs: 02/10/17 07:24 09/05/17 07:24 PT 19.1 SECONDS (9.7-12.2) H 02/10/17 07:24 INR 1.7 02/10/17 07:24 APTT 31 SECONDS (21-34) D 02/10/17 07:24 Attending/Attestation - Attestation I have personally seen and examined this patient.: Yes I have fully participated in the care of the patient.: Yes I have reviewed all pertinent clinical information, including history, physical exam and plan: Yes Notes (Text): 02/10/17 17:23 Hospitalist Progress Note Patient was seen and examined at 10:45 AM 02/10/17. 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 Currently upon FULL ROS: Right Foot foot pain that is minimal and comes and goes NO other complaints upon FULL ROS Exam: General: Awake and Alert, NAD HEENT: NCA, EOMI, PERRLA, NO lymphadenopathy, NO thyromegaly, NO pharyngeal erythema/exudate Cardio: NS1 and NS2, NO M/R/G Respiratory: CTA B/L, NO R/R/W GI: BSx4, Soft, Central Obesity therefore Liver and Spleen could not be adequately palpated, NO guarding/rebound tenderness Ext: Bilateral Pulses UE and LE are strong and equal, Capillary Refill is 2 seconds, NO edema Neuro: CN II through XII are grossly intact Assessments: 1). PAD: Coumadin 5 mg PO x 1 dose tonight, INR is 1.7, F/U INR 02/10/17. He is therapeutic Lovenox. 2). Malignant HTN: Chlorthalidone, Cozaar, Hydralazine PRN, and Cardizem CD increased to 360 mg (heart rate in the 120s during the night of 02/09/17 on Telemetry). I spoke with Interior Surface Insulation Worker Dr. Brown and he has also added Metoprolol [address] Angiogram of the Abdomen/Pelvis 02/04/17 did NOT show any evidence of Renal Artery Stenosis 3). Hx Atrial Fibrillation: Coumadin 5 mg PO x 1 dose tonight, INR is 1.7, F/ U INR 02/10/17 and he is on therapeutic Lovenox. Currently not rate controlled: Cardizem CD increased to 360 mg PO 1x/day and Metoprolol 50 mg PO Q12h has been added 4). Hx Seizure Disorder: F/U Dilantin level 02/10/17 5). Hx Multiple CVAs: Crestor is being held considering the elevated LFTs and that his Lipid Profile is currently WNL 6). Elevated LFTs: could be secondary to the Dilantin and the Crestor. The Crestor is being held. Medicine Team has ordered a Neurology Evaluation by Dr. Alondra Hogan to see if the Dilantin can be changed over to Keppra 7). Elevated WBC: there is NO fever and NO shift. F/U Blood and Urine Cultures ordered 02/10/17 8). Prophylaxis: Pepcid, Dilaudid, Zofran, Percocet, Simethicone Spoke with Job Recruiter Jermaine on 02/10/17 concerning setting up Home Visiting Nurse through [facility] and Daughter is willing to pay out of pocket. Patient will also need to be seen by PT prior to discharge (he lives on the second floor ). Unruly Vines D.O.
[2017-02-10 08:06] LABS: CHLORIDE 99 mmol/L (98-107); SODIUM 137 mmol/L (132-148)
[2017-02-10 08:07] LABS: POTASSIUM 3.8 mmol/L (3.6-5.2)
[2017-02-10 08:08] LABS: GFR AFRICAN-AMERICAN > 60
[2017-02-10 08:09] LABS: ALB/GLOB RATIO 0.9 (1.0-2.1); ALKALINE PHOSPHATASE 94 U/L (38-126); ALT/SGPT 105 U/L (21-72); AST/SGOT 139 U/L (17-59); BILIRUBIN,TOTAL 0.5 mg/dL (0.2-1.3); BLOOD UREA NITROGEN 20 mg/dL (9-20); CARBON DIOXIDE 24 mmol/L (22-30); GLUCOSE,RANDOM 97 mg/dL (75-110); TOTAL PROTEIN 6.1 g/dL (6.3-8.3)
[2017-02-10 08:10] LABS: CALCIUM 8.2 mg/dl (8.6-10.4)
[2017-02-10] MEDS: diltiaZEM 240 mg/24 Hours CD Cap PO SCH ×2 (08:23→09:01)
[2017-02-10 09:01] LABS: EOSINOPHIL 1 % (0-4); NEUTROPHIL 89 % (50-75); TOTAL CELLS COUNTED 100
[2017-02-10] MEDS: Enoxaparin 100 mg Syringe SC SCH ×2 (09:23→21:01)
[2017-02-10] MEDS: HYDROmorphone 0.5 mg/0.5 ml ISec IVP PRN ×3 (09:24→21:00)
[2017-02-10] MEDS: Simethicone 80 mg Chewtab PO SCH ×4 (09:24→21:00)
[2017-02-10] MEDS ORDERED: diltiaZEM 120 mg/24 Hours CD Cap PO ONE (10:30)
--- NOTE | 2017-02-10 10:39 | CP.PCM.PN ---
Subjective - Date & Time of Evaluation Date of Evaluation: 02/10/17 Time of Evaluation: 10:36 - Subjective Subjective: Vascular surgery - Dr. Kaur Pt S&E. ETHAN. Pt has mild discomfort at the incisions, otherwise no complaints. He states the pain in his R leg is somewhat improved. No F/C, SOb/ Cp. Objective - Vital Signs/Intake and Output Vital Signs (last 24 hours): Temp Pulse Resp BP Pulse Ox 98.7 F 123 H 20 142/93 H 100 02/10/17 07:25 02/10/17 09:22 02/10/17 07:25 02/10/17 09:22 02/10/17 07:25 Intake and Output: 02/10/17 02/10/17 06:59 18:59 Output Total 300 Balance -300 - Medications Medications: Current Medications Chlorthalidone (Hygroton) 25 mg PO DAILY [facility] Last Admin: 02/10/17 09:24 Dose: 25 mg Diltiazem HCl (Cardizem Cd) 360 mg PO DAILY [facility] Enoxaparin Sodium (Lovenox) 90 mg SC Q12 [facility] Last Admin: 02/10/17 09:23 Dose: 90 mg Famotidine (Pepcid) 20 mg PO DAILY [facility] Last Admin: 02/10/17 09:24 Dose: 20 mg Hydralazine HCl (Apresoline) 10 mg IVP Q6H PRN PRN Reason: Systolic Blood Pressure Hydromorphone HCl (Dilaudid) 0.5 mg IVP Q3H PRN PRN Reason: Pain, severe (8-10) Last Admin: 02/10/17 09:24 Dose: 0.5 mg Losartan Potassium (Cozaar) 100 mg PO DAILY [facility] Last Admin: 02/10/17 09:23 Dose: 100 mg Ondansetron HCl (Zofran Inj) 4 mg IVP Q6 PRN PRN Reason: Nausea/Vomiting Oxycodone/Acetaminophen (Percocet 5/325 Mg Tab) 2 tab PO Q4H PRN PRN Reason: Pain, moderate (4-7) Stop: 02/10/17 22:27 Phenytoin Sodium (Dilantin) 100 mg PO TID [facility] Last Admin: 02/10/17 09:23 Dose: 100 mg Rosuvastatin Calcium (Crestor) 5 mg PO HS [facility] Last Admin: 02/09/17 21:28 Dose: 5 mg Simethicone (Mylicon Chew Tab) 80 mg PO QID [facility] Last Admin: 02/10/17 09:24 Dose: 80 mg - Labs Labs: 02/10/17 07:24 02/10/17 07:24 PT 19.1 SECONDS (9.7-12.2) H 02/10/17 07:24 INR 1.7 02/10/17 07:24 APTT 31 SECONDS (21-34) D 02/10/17 07:24 - Constitutional Appears: No Acute Distress - Head Exam Head Exam: ATRAUMATIC, NORMAL INSPECTION, NORMOCEPHALIC - Eye Exam Eye Exam: EOMI, Normal appearance, PERRL Pupil Exam: NORMAL ACCOMODATION, PERRL - Respiratory Exam Respiratory Exam: NORMAL BREATHING PATTERN. 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 Kaur in office in [address] Vincent Pickens PGY3
--- NOTE | 2017-02-10 11:08 | CP.PCM.PN ---
Subjective - Date & Time of Evaluation Date of Evaluation: 02/10/17 Time of Evaluation: 11:08 - Subjective Subjective: HR uncontrolled afib with VVR Objective - Vital Signs/Intake and Output Vital Signs (last 24 hours): Temp Pulse Resp BP Pulse Ox 98.7 F 118 H 20 146/95 H 100 02/10/17 07:25 02/10/17 10:59 02/10/17 07:25 02/10/17 10:59 02/10/17 07:25 Intake and Output: 02/10/17 02/10/17 06:59 18:59 Output Total 300 Balance -300 - Medications Medications: Current Medications Chlorthalidone (Hygroton) 25 mg PO DAILY [facility] Last Admin: 02/10/17 09:24 Dose: 25 mg Diltiazem HCl (Cardizem Cd) 360 mg PO DAILY [facility] Enoxaparin Sodium (Lovenox) 90 mg SC Q12 [facility] Last Admin: 02/10/17 09:23 Dose: 90 mg Famotidine (Pepcid) 20 mg PO DAILY [facility] Last Admin: 02/10/17 09:24 Dose: 20 mg Hydralazine HCl (Apresoline) 10 mg IVP Q6H PRN PRN Reason: Systolic Blood Pressure Hydromorphone HCl (Dilaudid) 0.5 mg IVP Q3H PRN PRN Reason: Pain, severe (8-10) Last Admin: 02/10/17 09:24 Dose: 0.5 mg Losartan Potassium (Cozaar) 100 mg PO DAILY [facility] Last Admin: 02/10/17 09:23 Dose: 100 mg Ondansetron HCl (Zofran Inj) 4 mg IVP Q6 PRN PRN Reason: Nausea/Vomiting Oxycodone/Acetaminophen (Percocet 5/325 Mg Tab) 2 tab PO Q4H PRN PRN Reason: Pain, moderate (4-7) Stop: 02/10/17 22:27 Phenytoin Sodium (Dilantin) 100 mg PO TID [facility] Last Admin: 02/10/17 09:23 Dose: 100 mg Rosuvastatin Calcium (Crestor) 5 mg PO HS [facility] Last Admin: 02/09/17 21:28 Dose: 5 mg Simethicone (Mylicon Chew Tab) 80 mg PO QID [facility] Last Admin: 09/05/17 09:24 Dose: 80 mg Warfarin Sodium (Coumadin) 5 mg PO 1800 [facility] Stop: 02/10/17 18:01 - Labs Labs: 02/10/17 07:24 02/10/17 07:24 PT 19.1 SECONDS (9.7-12.2) H 02/10/17 07:24 INR 1.7 02/10/17 07:24 APTT 31 SECONDS (21-34) D 02/10/17 07:24 - Constitutional Appears: Well - Head Exam Head Exam: ATRAUMATIC, NORMAL INSPECTION, NORMOCEPHALIC - Eye Exam Eye Exam: EOMI, Normal appearance, PERRL Pupil Exam: NORMAL ACCOMODATION, PERRL - ENT Exam ENT Exam: Mucous Membranes Moist, Normal Exam - Neck Exam Neck Exam: Full ROM, Normal Inspection. absent: Lymphadenopathy - Respiratory Exam Respiratory Exam: Clear to Ausculation Bilateral, NORMAL BREATHING PATTERN - Cardiovascular Exam Cardiovascular Exam: Irregular Rhythm, +S1, +S2, Murmur - GI/Abdominal Exam GI & Abdominal Exam: Soft, Normal Bowel Sounds. absent: Tenderness - Extremities Exam Extremities Exam: Full ROM, Normal Capillary Refill, Normal Inspection. absent : Joint Swelling, Pedal Edema - Back Exam Back Exam: NORMAL INSPECTION - Neurological Exam Neurological Exam: Alert, Awake, CN II-XII Intact, Oriented x3 - Psychiatric Exam Psychiatric exam: Normal Affect, Normal Mood - Skin Skin Exam: Dry, Intact, Normal Color, Warm Assessment and Plan (1) Atrial fibrillation Assessment & Plan: Increase cardizem to 360mg po daily add metoprolol 50mg po bid lovenox/coumadin bridge - target INR 2.5-3.5 Status: Acute (2) HTN (hypertension), malignant Assessment & Plan: uncontrolled, resistant on 4 BP meds will titrate meds for rate control to target BP Status: Acute (3) Preop cardiovascular exam Status: Acute (4) Critical lower limb ischemia Status: Acute
[2017-02-10] MEDS ORDERED: Oxycodone/Acetaminophen 5/325 mg Tab PO PRN (14:35)
--- NOTE | 2017-02-11 01:49 | CON ---
DATE: NEUROLOGY CONSULTATION REASON FOR CONSULTATION: Change in antiepileptic medications. HISTORY OF PRESENT ILLNESS: The patient is a 71-year-old male with history of seizures. The consultation is called to see if Dilantin can be switched to some other medication as the patient's LFTs are elevated. The patient has history of seizures for longtime. His last seizures are about 2 years ago, did not had any further seizure. The seizures are all generalized. The patient has been taking Dilantin regularly according to the patient. The patient admitted to the hospital with peripheral artery disease. REVIEW OF SYSTEMS: Denies any headache, dizziness, chest pain, shortness of breath, abdominal pain, constipation, diarrhea, dysuria, cough, sputum production. PAST MEDICAL HISTORY: Includes atrial fibrillation, hypertension, epilepsy and stroke. MEDICATIONS: Includes Lipitor, metoprolol, Losartan, Plavix and Dilantin 100 mg t.i.d. ALLERGIES: NO KNOWN DRUG ALLERGIES. SOCIAL HISTORY: Denies smoking, alcohol or illicit drugs. FAMILY HISTORY: Reviewed and noncontributory. PHYSICAL EXAMINATION: GENERAL: The patient is an elderly male lying on the bed, in no acute distress. VITAL SIGNS: Blood pressure 132/73, heart rate is 84 per minute, breathing at the rate of 16, temperature is 97.6 degree Fahrenheit. HEENT: Head normocephalic and atraumatic. NECK: Supple. There are no carotid bruits. LUNGS: Clear to auscultation bilaterally. HEART: S1 and S2, audible. No murmurs. ABDOMEN: Soft and nontender. Bowel sounds present. NEUROLOGIC: MENTAL STATUS EXAM: Awake, alert and oriented to year, place and person. Speech fluent. Follows all simple commands. Cranial nerve exam: Pupils are 2 mm bilaterally reactive to light. Visual barcenas are full. Extraocular movements are intact. There is no facial asymmetry. He is moving all four extremities. Power appears to be 4/5. Reflexes 1+ and symmetrical, baseline is downgoing bilaterally. Cerebellar examination: [id number] shows dysmetria. Gait is deferred at the moment. LABORATORY DATA: Reviewed shows WBC 13.8, hemoglobin of 12.8, hematocrit of 37.7 and platelets of 386. INR is 1.7. Sodium is 137, potassium 3.8, chloride 99, carbon dioxide content 24, BUN of 20, creatinine of 1.1 and glucose of 97. His phenytoin level is 3.4. IMPRESSION: 1. Seizure disorder. 2. Elevated liver function test. RECOMMENDATIONS: 1. At present, the patient did not had any seizure for almost 2 years and he has been on Dilantin. Although, his Dilantin level is low. He is not having any recurrent seizures. As his liver function test is abnormal, we will consider switching his Dilantin to Keppra 500 mg twice a day. 2. Follow neurology on an as needed basis. Thank you for the opportunity to participate in the care of this patient. Robel Hogan MD
[2017-02-11 06:33] LABS: BASO # 0.1 K/uL (0.0-0.2); BASO % 0.4 % (0.0-2.0); EOS # 0.1 K/uL (0.0-0.7); EOS % 0.8 % (0.0-4.0); HEMATOCRIT 37.8 % (35.0-51.0); LYMPH # 1.2 K/uL (1.0-4.3); LYMPH % 9.1 % (20.0-40.0); MEAN CELL VOLUME 78.3 fL (80.0-94.0); MEAN CORPUSCULAR HEMOGLOBIN 26.6 pg (27.0-31.0); MEAN PLATELET VOLUME 8.3 fL (7.2-11.7); MONO # 0.7 K/uL (0.0-0.8); MONO % 5.3 % (0.0-10.0); NRBC % 0.1 % (0.0-2.0); PLATELET COUNT 428 K/uL (130-400); RED CELL DISTRIBUTION WIDTH 16.9 % (11.5-14.5); WHITE BLOOD COUNT 13.7 K/uL (4.8-10.8)
[2017-02-11 06:41] LABS: INR 1.7
[2017-02-11 07:50] LABS: CHLORIDE 97 mmol/L (98-107); SODIUM 133 mmol/L (132-148)
[2017-02-11 07:51] LABS: POTASSIUM 3.9 mmol/L (3.6-5.2)
[2017-02-11 07:52] LABS: GFR AFRICAN-AMERICAN > 60
[2017-02-11 07:53] LABS: ALKALINE PHOSPHATASE 89 U/L (38-126); ALT/SGPT 117 U/L (21-72); AST/SGOT 131 U/L (17-59); BILIRUBIN,TOTAL 0.4 mg/dL (0.2-1.3); BLOOD UREA NITROGEN 23 mg/dL (9-20); CALCIUM 7.9 mg/dl (8.6-10.4); CARBON DIOXIDE 25 mmol/L (22-30); GLUCOSE,RANDOM 93 mg/dL (75-110); TOTAL PROTEIN 6.2 g/dL (6.3-8.3)
[2017-02-11 07:54] LABS: MAGNESIUM 2.1 mg/dL (1.6-2.3)
--- NOTE | 2017-02-11 08:02 | CP.PCM.PN ---
<Eloisa Crowe - Last Filed: 02/11/17 16:52> Subjective - Date & Time of Evaluation Date of Evaluation: 02/11/17 Time of Evaluation: 07:59 - Subjective Subjective: Patient seen and examined at bedside and in no acute distress. Patient denies any new complaints today including no shortness of breath, chest pain, abdominal pain, n/v, d/c. Pt is still having some b/l LE pain. Pt HR in the 120s early this morning but currently ragning from 90-105. Pt still having cough productive of white sputum. Objective - Vital Signs/Intake and Output Vital Signs (last 24 hours): Temp Pulse Resp BP Pulse Ox 99.3 F 76 20 125/80 95 02/11/17 04:32 02/11/17 04:32 02/11/17 04:32 02/11/17 04:32 02/11/17 04:32 Intake and Output: 02/11/17 02/11/17 06:59 18:59 Output Total 400 Balance -400 - Medications Medications: Current Medications Chlorthalidone (Hygroton) 25 mg PO DAILY [facility] Last Admin: 02/10/17 09:24 Dose: 25 mg Diltiazem HCl (Cardizem Cd) 360 mg PO DAILY [facility] Enoxaparin Sodium (Lovenox) 90 mg SC Q12 [facility] Last Admin: 02/10/17 21:01 Dose: 90 mg Famotidine (Pepcid) 20 mg PO DAILY [facility] Last Admin: 02/10/17 09:24 Dose: 20 mg Hydralazine HCl (Apresoline) 10 mg IVP Q6H PRN PRN Reason: Systolic Blood Pressure Hydromorphone HCl (Dilaudid) 0.5 mg IVP Q3H PRN PRN Reason: Pain, severe (8-10) Last Admin: 02/10/17 21:00 Dose: 0.5 mg Levetiracetam (Keppra) 500 mg PO BID [facility] Last Admin: 02/10/17 21:00 Dose: 500 mg Losartan Potassium (Cozaar) 100 mg PO DAILY [facility] Last Admin: 02/10/17 09:23 Dose: 100 mg Metoprolol Tartrate (Lopressor) 50 mg PO Q12 [facility] Last Admin: 02/10/17 21:00 Dose: 50 mg Ondansetron HCl (Zofran Inj) 4 mg IVP Q6 PRN PRN Reason: Nausea/Vomiting Oxycodone/Acetaminophen (Percocet 5/325 Mg Tab) 1 tab PO Q6H PRN PRN Reason: Pain, moderate (4-7) Stop: 02/13/17 14:36 Last Admin: 02/10/17 16:35 Dose: 1 tab Simethicone (Mylicon Chew Tab) 80 mg PO QID [facility] Last Admin: 02/10/17 21:00 Dose: 80 mg - Labs Labs: 02/11/17 06:20 02/11/17 06:20 PT 20.0 SECONDS (9.7-12.2) H 02/11/17 06:20 INR 1.7 02/11/17 06:20 APTT 33 SECONDS (21-34) 02/11/17 06:20 - Constitutional Appears: Non-toxic, No Acute Distress - Head Exam Head Exam: NORMAL INSPECTION - Eye Exam Eye Exam: EOMI - ENT Exam ENT Exam: Mucous Membranes Moist - Respiratory Exam Respiratory Exam: Clear to Ausculation Bilateral, NORMAL BREATHING PATTERN - Cardiovascular Exam Cardiovascular Exam: Tachycardia, Irregular Rhythm, +S1, +S2 - GI/Abdominal Exam GI & Abdominal Exam: Soft, Normal Bowel Sounds. absent: Distended, Tenderness - Extremities Exam Extremities Exam: Pedal Edema, Tenderness (to light touch in b/l lower legs ) Additional comments: B/L LE cold to the touch - Neurological Exam Neurological Exam: Alert, Awake - Psychiatric Exam Psychiatric exam: Normal Affect, Normal Mood - Skin Skin Exam: Dry, Intact, Normal Color Assessment and Plan - Assessment and Plan (Free Text) Assessment: Peripheral Arterial Disease, Severe Critical Limb Ischemia * 02/05: b/l femoral artery thrombectomy w/angiogram-->thrombus removed * Vascular surgery, Dr. Kaur consulted, help appreciated * Cardiology, Dr. Brown, help appreciated * Venous doppler: no DVT, incidental finding of left popliteal artery occluded * Abdominal Angiography (02/04/17): occlusion of the right common femoral artery , superficial femoral artery, popliteal artery, and popliteal trifurcation. Reconstitution of the right peroneal via collaterals with runoff to the foot. Occlusion of the left distal superficial femoral artery and popliteral artery. Reconstitution of the left tibial peroneal trunk and anterior tibial artery via collaterals below the trifurcation. Multifocal short segment disease within the anterior tibial artery and peroneal. 2 low density lesions within the liver not fully characterized due to small size. Focal areas of cortical atrophy in the right kdiney reflecting previous infection/infarction. Focall abnormal loop of small bowel noted within the mid abdomen. Affected loop demonstrates mild wall thickening and perienteric inflammatory change. * Unable to appreciate pulses by dopplers. Leg feels warm * Vascular surgery cleared for patient to be on Coumadin. * Switched to therapuetic Lovenox bridge to Coumadin; ordered for Coumadin 7.5 mg PO tonight-->f/u INR * INR on 02/11: 1.7 Malignant Hypertension * Cardiology consult: Dr. Brown added metoprolol to regimen as discussed below * Patient was on Cardizem Drip-=->converted to PO Cardizem CD 180mg 1x/day, inceased to 240 mg daily on 02/09 * Blood pressure controlled on current regimen as below: Medications: * Chlorthalidone 25mg daily * Cozaar 100mg PO daily * Cardizem CD increased to 360 mg daily (from 240 mg on 02/11) * Hydralazine 10mg IV Q6 H PRN SBP>160 * Metoprolol 50 mg PO q12 (added 02/10) History of Atrial Fibrillation * Cardiology consulted, Dr. Brown * Increased metoprolol to 50 mg PO BID * Echo on 11/13/16: LVEF- 59% * Echocardiogram (completed post-operative): mild concentric left ventricular hypertrophy. Left ventricle systolic function is inormal. EF: 55-60%. left ventricular diastolic function is normal. Right ventricle is normal size. Right ventricular systolic function is normal. Left atrium size is normal. Right atrial size is normal. Moderate aortic regurgitation. Trace to mild tricuspid regurgitation. Aortic root and ascending aorta are mildly dilated * CHADS: 4: high risk of thromboembolic event; 8.5% risk of event per year if no coumadin * HASBLED: 2 (stroke; age; blood pressure is uncontrolled day but suspect due to pain after conversation with the daughter) * Theraputetic Lovenox bridge started Coumadin on 02/06 , monitor INR * Bchz2aI 5.5 * 02/10 HR ranging between 110-125 * Extra dose of cardizem given at 1320 * Cardizem increased to 360 mg for 02/11 * f/u BC and UC * Run of V Tach 02/11 - EKG ordered and unchanged from prior History of Seizure Disorder * Continue home medication Dilantin 100 mg TID * Phenytoin level = 3.4 * Neuro consult ([facility]) - recs appreciated for possible med switch * CT head w/o contrast due to questionable fall-->patient did not have fall per daughter * CT Head: no evidence of acute intracranial hemorrhage. Large foci of encephalomalcia in brain suggestive of old infarction. Largest encephalomalacia seen at the right temporal parietal frontal love. Moderate atrophy and moderate to extensive white mater changes suggestive of chronic microvascular ischemic disease * seizure precautions Elevated LFTs * AST 131 (02/11) * ALT 117 (02/11) * Neuro consult (Dr. Hogan): may consider Keppra 500 mg BID instead of Phenytoin History of multiple strokes * CT Head: no evidence of acute intracranial hemorrhage. Large foci of encephalomalcia in brain suggestive of old infarction. Largest encephalomalacia seen at the right temporal parietal frontal love. Moderate aatrophy and moderate to extensive white mater changes suggestive of chronic microvascular ischemic disease * Patient per home meds: on statin (lipitor), plavix, and anti-hypertensives * Has residual left side weakness since last stroke 2 years ago where his vision was affected and improved with prescription glasses * A1c: 5.5, Lipid Panel: HDL: 30, LDL:69 T Cholestrol:109 * Pending hypercoaguable workup; likely due to atrial fibrillation * Crestor 5mg POqHS * Will need to restart Plavix (after patient is bridged for stroke prophylaxis) for stroke prophylaxis Prophylactic Measures * Pepcid 20mg daily for GI ppx * Therapuetic Lovenox bridge to Coumadin * PT eval: recommended for subacute rehab * OT eval: pending * OOB * Daughter: Pura Arshad ([phone]) Disposition: Patient is currently being bridge to therapuetic Lovenox to Coumadin. Patient cannot afford NOAC which is expensive. Awaiting patient to be at goal INR 2-3. Patient has hx of atrial fibrillation, not previously anti- coagulation, with hx of ten CVAs. Patient will need to be established in the clinic and will need follow-up for INR levels for atrial fibrillation. Per discussion with daughter, Pura, patient lives on the second floor. Patient will need to evaluated by physcial and occupational therapy. The daughter is also requesting for nursing services for her dad and reports she is willing to pay out of pocket for the nursing services. Pt will also need f/u LFTs in 4 weeks and can restart statin once normal. <Unruly Vines - Last Filed: 02/11/17 17:11> Objective - Vital Signs/Intake and Output Vital Signs (last 24 hours): Temp Pulse Resp BP Pulse Ox 98.7 F 93 H 18 120/68 95 02/11/17 07:23 02/11/17 14:15 02/11/17 07:23 02/11/17 14:15 02/11/17 07:23 Intake and Output: 02/11/17 02/11/17 06:59 18:59 Intake Total 400 Output Total 400 300 Balance -400 100 - Medications Medications: Current Medications Chlorthalidone (Hygroton) 25 mg PO DAILY [facility] Last Admin: 02/11/17 09:39 Dose: 25 mg Diltiazem HCl (Cardizem Cd) 360 mg PO DAILY [facility] Last Admin: 02/11/17 09:40 Dose: 360 mg Enoxaparin Sodium (Lovenox) 90 mg SC Q12 [facility] Famotidine (Pepcid) 20 mg PO DAILY [facility] Last Admin: 02/11/17 09:40 Dose: 20 mg Hydralazine HCl (Apresoline) 10 mg IVP Q6H PRN PRN Reason: Systolic Blood Pressure Hydromorphone HCl (Dilaudid) 0.5 mg IVP Q3H PRN PRN Reason: Pain, severe (8-10) Last Admin: 02/11/17 14:21 Dose: 0.5 mg Levetiracetam (Keppra) 500 mg PO BID [facility] Last Admin: 02/11/17 09:40 Dose: 500 mg Losartan Potassium (Cozaar) 100 mg PO DAILY [facility] Last Admin: 02/11/17 09:40 Dose: 100 mg Metoprolol Tartrate (Lopressor) 50 mg PO Q12 [facility] Last Admin: 02/11/17 09:39 Dose: 50 mg Ondansetron HCl (Zofran Inj) 4 mg IVP Q6 PRN PRN Reason: Nausea/Vomiting Oxycodone/Acetaminophen (Percocet 5/325 Mg Tab) 1 tab PO Q6H PRN PRN Reason: Pain, moderate (4-7) Stop: 02/13/17 14:36 Last Admin: 02/10/17 16:35 Dose: 1 tab Simethicone (Mylicon Chew Tab) 80 mg PO QID [facility] Last Admin: 02/11/17 14:16 Dose: 80 mg Warfarin Sodium (Coumadin) 7.5 mg PO 1800 [facility] Stop: 02/11/17 18:01 - Labs Labs: 02/11/17 06:20 02/11/17 06:20 PT 20.0 SECONDS (9.7-12.2) H 02/11/17 06:20 INR 1.7 02/11/17 06:20 APTT 33 SECONDS (21-34) 02/11/17 06:20 Attending/Attestation - Attestation I have personally seen and examined this patient.: Yes I have fully participated in the care of the patient.: Yes I have reviewed all pertinent clinical information, including history, physical exam and plan: Yes Notes (Text): 02/11/17 17:04 Hospitalist Progress Note Patient was seen and examined at 1:50 PM 02/11/17. 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 Currently upon FULL ROS: Right Foot foot pain that is minimal and comes and goes NO other complaints upon FULL ROS Exam: General: Awake and Alert, NAD HEENT: NCA, EOMI, PERRLA, NO lymphadenopathy, NO thyromegaly, NO pharyngeal erythema/exudate Cardio: NS1 and NS2, NO M/R/G Respiratory: CTA B/L, NO R/R/W GI: BSx4, Soft, Central Obesity therefore Liver and Spleen could not be adequately palpated, NO guarding/rebound tenderness Ext: Bilateral Pulses UE and LE are strong and equal, Capillary Refill is 2 seconds, NO edema Neuro: CN II through XII are grossly intact Assessments: 1). PAD: Coumadin 7.5 mg PO x 1 dose tonight, INR is 1.7, F/U INR 02/11/17. He is on therapeutic Lovenox. 2). Malignant HTN: Chlorthalidone, Cozaar, Hydralazine PRN, and Cardizem CD increased to 360 mg (heart rate in the 120s during the night of 02/09/17 on Telemetry). I spoke with Master Electrician Dr. Brown 02/10/17 and he has also added Metoprolol [address] Angiogram of the Abdomen/Pelvis 02/04/17 did NOT show any evidence of Renal Artery Stenosis 3). Hx Atrial Fibrillation: Coumadin 5 mg PO x 1 dose tonight, INR is 1.7, F/ U INR 02/10/17 and he is on therapeutic Lovenox. Cardizem CD increased to 360 mg PO 1x/day and Metoprolol 50 mg PO Q12h was added on 02/10/17. His blood pressure and heart rate are better controlled 02/11/17 4). Hx Seizure Disorder: as his LFTs are elevated, Neurology Consult was ordered with Dr. Onesimo Hogan to see if patient could be switched over to Keppra. Dr. Hogan has placed patient on Keppra 500 mg PO 2x/day 5). Hx Multiple CVAs: Crestor is being held considering the elevated LFTs and that his Lipid Profile is currently WNL. His Lipid profile and LFTs will need to be monitored by his PMD upon discharge 6). Elevated LFTs: could be secondary to the Dilantin and the Crestor. The Crestor is being held and the Dilantin switched over to Keppra. The LFTs will need to be monitored by his PMD upon discharge. 7). Elevated WBC: there is NO fever and NO shift. Blood and Urine Culture are negative to date. 8). Prophylaxis: Pepcid, Dilaudid, Zofran, Percocet, Simethicone Spoke with Card Grader Mistyjohnson on 02/10/17 concerning setting up Home Visiting Nurse through [facility] and Daughter is willing to pay out of pocket. Unruly Vines D.O.
[2017-02-11 09:03] LABS: EOSINOPHIL 1 % (0-4); NEUTROPHIL 89 % (50-75); TOTAL CELLS COUNTED 100
[2017-02-11 09:05] LABS: GIANT PLATELETS PRESENT
[2017-02-11] MEDS: Enoxaparin 100 mg Syringe SC SCH ×2 (09:39→21:22)
[2017-02-11] MEDS: diltiaZEM 180 mg/24 Hours CD Cap PO SCH (09:40)
[2017-02-11] MEDS: Simethicone 80 mg Chewtab PO SCH ×4 (09:40→21:23)
[2017-02-11] MEDS: HYDROmorphone 0.5 mg/0.5 ml ISec IVP PRN (14:21)
--- NOTE | 2017-02-11 23:12 | CP.PCM.PN ---
Subjective - Date & Time of Evaluation Date of Evaluation: 02/11/17 Time of Evaluation: 14:30 - Subjective Subjective: mild leg discomfort HR high in am Objective - Vital Signs/Intake and Output Vital Signs (last 24 hours): Temp Pulse Resp BP Pulse Ox 99.6 F 88 20 124/77 99 02/11/17 15:00 02/11/17 17:04 02/11/17 15:00 02/11/17 15:00 02/11/17 15:00 Intake and Output: 02/11/17 02/12/17 18:59 06:59 Intake Total 400 Output Total 300 Balance 100 - Medications Medications: Current Medications Chlorthalidone (Hygroton) 25 mg PO DAILY [facility] Last Admin: 02/11/17 09:39 Dose: 25 mg Diltiazem HCl (Cardizem Cd) 360 mg PO DAILY [facility] Last Admin: 02/11/17 09:40 Dose: 360 mg Enoxaparin Sodium (Lovenox) 90 mg SC Q12 [facility] Last Admin: 02/11/17 21:22 Dose: 90 mg Famotidine (Pepcid) 20 mg PO DAILY [facility] Last Admin: 02/11/17 09:40 Dose: 20 mg Hydralazine HCl (Apresoline) 10 mg IVP Q6H PRN PRN Reason: Systolic Blood Pressure Levetiracetam (Keppra) 500 mg PO BID [facility] Last Admin: 02/11/17 18:01 Dose: 500 mg Losartan Potassium (Cozaar) 100 mg PO DAILY [facility] Last Admin: 02/11/17 09:40 Dose: 100 mg Metoprolol Tartrate (Lopressor) 50 mg PO Q12 [facility] Last Admin: 02/11/17 21:22 Dose: 50 mg Ondansetron HCl (Zofran Inj) 4 mg IVP Q6 PRN PRN Reason: Nausea/Vomiting Oxycodone/Acetaminophen (Percocet 5/325 Mg Tab) 1 tab PO Q6H PRN PRN Reason: Pain, moderate (4-7) Stop: 02/13/17 14:36 Last Admin: 02/10/17 16:35 Dose: 1 tab Simethicone (Mylicon Chew Tab) 80 mg PO QID [facility] Last Admin: 02/11/17 21:23 Dose: Not Given - Labs Labs: 02/11/17 06:20 02/11/17 06:20 PT 20.0 SECONDS (9.7-12.2) H 02/11/17 06:20 INR 1.7 02/11/17 06:20 APTT 33 SECONDS (21-34) 02/11/17 06:20 - Constitutional Appears: Well - Head Exam Head Exam: ATRAUMATIC, NORMAL INSPECTION, NORMOCEPHALIC - Eye Exam Eye Exam: EOMI, Normal appearance, PERRL Pupil Exam: NORMAL ACCOMODATION, PERRL - ENT Exam ENT Exam: Mucous Membranes Moist, Normal Exam - Neck Exam Neck Exam: Full ROM, Normal Inspection. absent: Lymphadenopathy - Respiratory Exam Respiratory Exam: Clear to Ausculation Bilateral, NORMAL BREATHING PATTERN - Cardiovascular Exam Cardiovascular Exam: Irregular Rhythm, +S1, +S2, Murmur - GI/Abdominal Exam GI & Abdominal Exam: Soft, Normal Bowel Sounds. absent: Tenderness - Extremities Exam Extremities Exam: Full ROM, Normal Capillary Refill, Normal Inspection. absent : Joint Swelling, Pedal Edema - Back Exam Back Exam: NORMAL INSPECTION - Neurological Exam Neurological Exam: Alert, Awake, CN II-XII Intact, Oriented x3 - Psychiatric Exam Psychiatric exam: Normal Affect, Normal Mood - Skin Skin Exam: Dry, Intact, Normal Color, Warm Assessment and Plan (1) Atrial fibrillation Assessment & Plan: increase metoprolol to 100mg bid cont cardizem cont lovenox/coumadin bridge with target INR 2.5-3.5 Status: Acute (2) HTN (hypertension), malignant Assessment & Plan: cont current meds Status: Acute (3) Preop cardiovascular exam Status: Acute (4) Critical lower limb ischemia Status: Acute
[2017-02-12 07:41] LABS: BASO % 0.3 % (0.0-2.0); EOS % 0.3 % (0.0-4.0); HEMATOCRIT 36.4 % (35.0-51.0); LYMPH % 7.4 % (20.0-40.0); MEAN CELL VOLUME 77.9 fL (80.0-94.0); MEAN CORPUSCULAR HEMOGLOBIN 27.1 pg (27.0-31.0); MEAN CORPUSCULAR HGB CONC 34.8 g/dL (33.0-37.0); MEAN PLATELET VOLUME 8.4 fL (7.2-11.7); MONO # 0.8 K/uL (0.0-0.8); MONO % 5.6 % (0.0-10.0); PLATELET COUNT 439 K/uL (130-400); RED CELL DISTRIBUTION WIDTH 16.6 % (11.5-14.5); WHITE BLOOD COUNT 13.9 K/uL (4.8-10.8)
[2017-02-12 07:57] LABS: INR 1.9
[2017-02-12 08:05] LABS: ALB/GLOB RATIO 0.8 (1.0-2.1); ALKALINE PHOSPHATASE 98 U/L (38-126); ALT/SGPT 123 U/L (21-72); AST/SGOT 137 U/L (17-59); BILIRUBIN,TOTAL 0.3 mg/dL (0.2-1.3); BLOOD UREA NITROGEN 27 mg/dL (9-20); CALCIUM 8.1 mg/dl (8.6-10.4); CARBON DIOXIDE 26 mmol/L (22-30); CHLORIDE 96 mmol/L (98-107); GFR AFRICAN-AMERICAN > 60; GLUCOSE,RANDOM 103 mg/dL (75-110); POTASSIUM 3.9 mmol/L (3.6-5.2); SODIUM 134 mmol/L (132-148); TOTAL PROTEIN 6.2 g/dL (6.3-8.3)
[2017-02-12] MEDS ORDERED: HYDROmorphone 0.5 mg/0.5 ml ISec IVP PRN (10:06)
[2017-02-12 10:18] LABS: NEUTROPHIL 85 % (50-75); TOTAL CELLS COUNTED 100
[2017-02-12] MEDS: Simethicone 80 mg Chewtab PO SCH ×4 (10:38→21:45)
[2017-02-12] MEDS: Enoxaparin 100 mg Syringe SC SCH ×2 (10:38→21:45)
[2017-02-12] MEDS: diltiaZEM 180 mg/24 Hours CD Cap PO SCH (10:38)
[2017-02-12] MEDS: HYDROmorphone 0.5 mg/0.5 ml ISec IVP PRN ×2 (10:39→21:45)
--- NOTE | 2017-02-12 17:12 | CP.PCM.PN ---
Subjective - Date & Time of Evaluation Date of Evaluation: 02/12/17 Time of Evaluation: 10:30 - Subjective Subjective: Hospitalist Progress Note Patient was seen and examined at 10:30 AM 02/12/17. 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 Currently upon FULL ROS: Patient complaining of significant pain in both lower legs that is 10/10 NO other complaints upon FULL ROS Exam: General: Awake and Alert, NAD HEENT: NCA, EOMI, PERRLA, NO lymphadenopathy, NO thyromegaly, NO pharyngeal erythema/exudate Cardio: NS1 and NS2, NO M/R/G Respiratory: CTA B/L, NO R/R/W GI: BSx4, Soft, Central Obesity therefore Liver and Spleen could not be adequately palpated, NO guarding/rebound tenderness Ext: Bilateral Pulses UE and LE are strong and equal, Capillary Refill is 2 seconds, NO edema, There was an area of hyeremia in the Anterior Left Lower Leg , both legs were extremely sensitive to light touch, there is NO discoloration of the toes however they are cooler to touch today. Neuro: CN II through XII are grossly intact Assessments: 1). PAD: Coumadin 7.5 mg PO x 1 dose tonight, INR is 1.9, F/U INR 02/12/17. I spoke with [employer] Installer Dr. Brown and the goal INR is 2.5. He is on therapeutic Lovenox. Extensive conversation with Daughter Pura [phone] who was at the bedside. Both Dr. Brown and Dr. Kaur along with myself explained that at this point the best option was to control the patient's pain as further surgical intervention (Femoral Bypass) was not an option as the distal arteries in the bilateral legs could not support this procedure. The subject of the possibility of amputation in the future was also discussed. The plan for now is to control patient's pain and get the INR therapeutic to at least 2.5 and then discharge patient to home. Pura expressed understanding. 2). Malignant HTN: Chlorthalidone, Cozaar, Hydralazine PRN, and Cardizem CD 360 mg 1x/day. G[employer] Navigation Installer Dr. Brown 02/12/17 and he has increased Metoprolol to [address] Angiogram of the Abdomen/Pelvis 02/04/17 did NOT show any evidence of Renal Artery Stenosis 3). Hx Atrial Fibrillation: Coumadin 7.5 mg PO x 1 dose tonight, INR is 1.9, F /U INR 02/12/17. I spoke with [employer] Navigation Installer Dr. Brown and the goal INR is 2.5. He is on therapeutic Lovenox. Cardizem CD 360 mg PO 1x/day and Metoprolol 100 mg PO Q12H. His blood pressure is better under control. 4). Hx Seizure Disorder: as his LFTs are elevated, Neurology Consult was ordered with Dr. Onesimo Hogan to see if patient could be switched over to Keppra. Dr. Hogan has placed patient on Keppra 500 mg PO 2x/day 5). Hx Multiple CVAs: Crestor is being held considering the elevated LFTs and that his Lipid Profile is currently WNL. His Lipid profile and LFTs will need to be monitored by his PMD upon discharge 6). Elevated LFTs: could be secondary to the Dilantin and the Crestor. The Crestor is being held and the Dilantin switched over to Keppra. The LFTs will need to be monitored by his PMD upon discharge. 7). Elevated WBC: there is NO fever and NO shift. Blood and Urine Culture are negative to date. 8). Prophylaxis: Pepcid, Dilaudid, Zofran, Percocet, Simethicone Objective - Vital Signs/Intake and Output Vital Signs (last 24 hours): Temp Pulse Resp BP Pulse Ox 98.1 F 93 H 20 128/80 98 02/12/17 16:39 02/12/17 16:39 02/12/17 16:39 02/12/17 16:39 02/12/17 16:39 Intake and Output: 02/12/17 02/12/17 06:59 18:59 Intake Total 300 Output Total 900 Balance -900 300 - Medications Medications: Current Medications Chlorthalidone (Hygroton) 25 mg PO DAILY [facility] Last Admin: 02/12/17 10:37 Dose: 25 mg Diltiazem HCl (Cardizem Cd) 360 mg PO DAILY [facility] Last Admin: 02/12/17 10:38 Dose: 360 mg Enoxaparin Sodium (Lovenox) 90 mg SC Q12 [facility] Last Admin: 02/12/17 10:38 Dose: 90 mg Famotidine (Pepcid) 20 mg PO DAILY [facility] Last Admin: 02/12/17 10:37 Dose: 20 mg Hydralazine HCl (Apresoline) 10 mg IVP Q6H PRN PRN Reason: Systolic Blood Pressure Hydromorphone HCl (Dilaudid) 0.5 mg IVP Q6H PRN PRN Reason: Pain, severe (8-10) Last Admin: 02/12/17 10:39 Dose: 0.5 mg Levetiracetam (Keppra) 500 mg PO BID [facility] Last Admin: 02/12/17 10:37 Dose: 500 mg Losartan Potassium (Cozaar) 100 mg PO DAILY [facility] Last Admin: 02/12/17 10:37 Dose: 100 mg Metoprolol Tartrate (Lopressor) 100 mg PO Q12 [facility] Last Admin: 02/12/17 10:37 Dose: 100 mg Ondansetron HCl (Zofran Inj) 4 mg IVP Q6 PRN PRN Reason: Nausea/Vomiting Oxycodone/Acetaminophen (Percocet 5/325 Mg Tab) 1 tab PO Q6H PRN PRN Reason: Pain, moderate (4-7) Stop: 02/13/17 14:36 Last Admin: 02/10/17 16:35 Dose: 1 tab Simethicone (Mylicon Chew Tab) 80 mg PO QID [facility] Last Admin: 02/12/17 13:43 Dose: 80 mg Warfarin Sodium (Coumadin) 7.5 mg PO 1800 [facility] Stop: 02/12/17 18:01 - Labs Labs: 02/12/17 07:36 02/12/17 07:36 PT 21.3 SECONDS (9.7-12.2) H 02/12/17 07:36 INR 1.9 02/12/17 07:36 APTT 35 SECONDS (21-34) H 02/12/17 07:36
--- NOTE | 2017-02-12 17:13 | CARD ---
APPROVED REPORT EKG Measurement Heart [id number] <Conclusion> Atrial fibrillation Left axis deviation Right bundle branch block Voltage criteria for left ventricular hypertrophy Inferior infarct, age undetermined T wave abnormality, consider lateral ischemia Abnormal ECG
--- NOTE | 2017-02-13 06:31 | CP.PCM.PN ---
Subjective - Date & Time of Evaluation Date of Evaluation: 02/12/17 Time of Evaluation: 14:00 - Subjective Subjective: c/o bilateral leg discomfort reactive hyperemia noted with cool extremties Objective - Vital Signs/Intake and Output Vital Signs (last 24 hours): Temp Pulse Resp BP Pulse Ox 98.0 F 88 20 117/71 98 02/13/17 04:37 02/13/17 04:37 02/13/17 04:37 02/13/17 04:37 02/13/17 04:37 Intake and Output: 02/12/17 02/13/17 18:59 06:59 Intake Total 300 Output Total 1200 Balance 300 -1200 - Medications Medications: Current Medications Chlorthalidone (Hygroton) 25 mg PO DAILY [facility] Last Admin: 02/12/17 10:37 Dose: 25 mg Diltiazem HCl (Cardizem Cd) 360 mg PO DAILY [facility] Last Admin: 02/12/17 10:38 Dose: 360 mg Enoxaparin Sodium (Lovenox) 90 mg SC Q12 [facility] Last Admin: 02/12/17 21:45 Dose: 90 mg Famotidine (Pepcid) 20 mg PO DAILY [facility] Last Admin: 02/12/17 10:37 Dose: 20 mg Hydralazine HCl (Apresoline) 10 mg IVP Q6H PRN PRN Reason: Systolic Blood Pressure Hydromorphone HCl (Dilaudid) 0.5 mg IVP Q6H PRN PRN Reason: Pain, severe (8-10) Last Admin: 02/12/17 21:45 Dose: 0.5 mg Levetiracetam (Keppra) 500 mg PO BID [facility] Last Admin: 02/12/17 18:07 Dose: 500 mg Losartan Potassium (Cozaar) 100 mg PO DAILY [facility] Last Admin: 02/12/17 10:37 Dose: 100 mg Metoprolol Tartrate (Lopressor) 100 mg PO Q12 [facility] Last Admin: 02/12/17 21:45 Dose: 100 mg Ondansetron HCl (Zofran Inj) 4 mg IVP Q6 PRN PRN Reason: Nausea/Vomiting Oxycodone/Acetaminophen (Percocet 5/325 Mg Tab) 1 tab PO Q6H PRN PRN Reason: Pain, moderate (4-7) Stop: 02/13/17 14:36 Last Admin: 02/10/17 16:35 Dose: 1 tab Simethicone (Mylicon Chew Tab) 80 mg PO QID [facility] Last Admin: 02/12/17 21:45 Dose: 80 mg - Labs Labs: 02/12/17 07:36 02/12/17 07:36 PT 21.3 SECONDS (9.7-12.2) H 02/12/17 07:36 INR 1.9 02/12/17 07:36 APTT 35 SECONDS (21-34) H 02/12/17 07:36 - Constitutional Appears: Well, In Acute Distress - Head Exam Head Exam: ATRAUMATIC, NORMAL INSPECTION, NORMOCEPHALIC - Eye Exam Eye Exam: EOMI, Normal appearance, PERRL Pupil Exam: NORMAL ACCOMODATION, PERRL - ENT Exam ENT Exam: Mucous Membranes Moist, Normal Exam - Neck Exam Neck Exam: Full ROM, Normal Inspection. absent: Lymphadenopathy - Respiratory Exam Respiratory Exam: Clear to Ausculation Bilateral, NORMAL BREATHING PATTERN - Cardiovascular Exam Cardiovascular Exam: Irregular Rhythm, +S1, +S2, Murmur - GI/Abdominal Exam GI & Abdominal Exam: Soft, Normal Bowel Sounds. absent: Tenderness - Extremities Exam Extremities Exam: Full ROM, Normal Capillary Refill, Normal Inspection, Tenderness. absent: Joint Swelling, Pedal Edema - Back Exam Back Exam: NORMAL INSPECTION - Neurological Exam Neurological Exam: Alert, Awake, CN II-XII Intact, Oriented x3 - Psychiatric Exam Psychiatric exam: Normal Affect, Normal Mood - Skin Skin Exam: Dry, Intact, Normal Color, Warm Assessment and Plan (1) Atrial fibrillation Assessment & Plan: fluctuant with pain level but overall better controlled on BB and CCB on OAC with coumadin target INR 2.5 Status: Acute (2) HTN (hypertension), malignant Assessment & Plan: BP stable cont current meds Status: Acute (3) Preop cardiovascular exam Status: Acute (4) Critical lower limb ischemia Assessment & Plan: s/p thrombectomy bilateral LE cool to touch and tender vascular sx following Status: Acute
[2017-02-13 07:19] LABS: BASO % 0.3 % (0.0-2.0); EOS # 0.1 K/uL (0.0-0.7); EOS % 0.4 % (0.0-4.0); HEMATOCRIT 37.2 % (35.0-51.0); LYMPH % 7.4 % (20.0-40.0); MEAN CELL VOLUME 79.1 fL (80.0-94.0); MEAN CORPUSCULAR HEMOGLOBIN 26.5 pg (27.0-31.0); MEAN CORPUSCULAR HGB CONC 33.5 g/dL (33.0-37.0); MEAN PLATELET VOLUME 8.4 fL (7.2-11.7); MONO # 0.8 K/uL (0.0-0.8); MONO % 6.3 % (0.0-10.0); PLATELET COUNT 444 K/uL (130-400); RED CELL DISTRIBUTION WIDTH 16.6 % (11.5-14.5); WHITE BLOOD COUNT 12.8 K/uL (4.8-10.8)
[2017-02-13 07:30] LABS: CHLORIDE 99 mmol/L (98-107)
[2017-02-13 07:31] LABS: POTASSIUM 4.1 mmol/L (3.6-5.2); SODIUM 133 mmol/L (132-148)
[2017-02-13 07:34] LABS: ALB/GLOB RATIO 0.9 (1.0-2.1); ALKALINE PHOSPHATASE 99 U/L (38-126); ALT/SGPT 134 U/L (21-72); AST/SGOT 145 U/L (17-59); BILIRUBIN,TOTAL 0.5 mg/dL (0.2-1.3); BLOOD UREA NITROGEN 28 mg/dL (9-20); CARBON DIOXIDE 23 mmol/L (22-30); GFR AFRICAN-AMERICAN > 60; GLUCOSE,RANDOM 97 mg/dL (75-110); TOTAL PROTEIN 6.4 g/dL (6.3-8.3)
[2017-02-13 07:37] LABS: INR 1.8
[2017-02-13 09:06] LABS: NEUTROPHIL 87 % (50-75); TOTAL CELLS COUNTED 100
[2017-02-13] MEDS: Enoxaparin 100 mg Syringe SC SCH ×2 (10:46→21:39)
[2017-02-13] MEDS: diltiaZEM 180 mg/24 Hours CD Cap PO SCH (10:48)
[2017-02-13] MEDS: Simethicone 80 mg Chewtab PO SCH ×4 (10:48→21:40)
[2017-02-13] MEDS: HYDROmorphone 0.5 mg/0.5 ml ISec IVP PRN (10:51)
--- NOTE | 2017-02-13 12:55 | CP.PCM.PN ---
<Edgar Rojas - Last Filed: 02/13/17 14:42> Subjective - Date & Time of Evaluation Date of Evaluation: 02/13/17 Time of Evaluation: 12:53 - Subjective Subjective: PGY1 Note for Dr. Vines HPI: Patient seen and examined at bedside. Complaining of pain in his L. Leg. Besides that has no complaints at this time. Looks comfortable laying in bed. Patient seems confused. Told me he had no children at first but then told us his daughter would visit him in the hospital. Denies N/V/D/C/CP/SOB Objective - Vital Signs/Intake and Output Vital Signs (last 24 hours): Temp Pulse Resp BP Pulse Ox 98.8 F 72 20 138/80 100 02/13/17 07:00 02/13/17 10:48 02/13/17 07:00 02/13/17 10:48 02/13/17 07:00 Intake and Output: 02/13/17 02/13/17 06:59 18:59 Output Total 1200 Balance -1200 - Medications Medications: Current Medications Chlorthalidone (Hygroton) 25 mg PO DAILY [facility] Last Admin: 02/13/17 10:48 Dose: 25 mg Diltiazem HCl (Cardizem Cd) 360 mg PO DAILY [facility] Last Admin: 02/13/17 10:48 Dose: 360 mg Enoxaparin Sodium (Lovenox) 90 mg SC Q12 [facility] Last Admin: 02/13/17 10:46 Dose: 90 mg Famotidine (Pepcid) 20 mg PO DAILY [facility] Last Admin: 02/13/17 10:48 Dose: 20 mg Hydralazine HCl (Apresoline) 10 mg IVP Q6H PRN PRN Reason: Systolic Blood Pressure Hydromorphone HCl (Dilaudid) 0.5 mg IVP Q6H PRN PRN Reason: Pain, severe (8-10) Last Admin: 02/13/17 10:51 Dose: 0.5 mg Levetiracetam (Keppra) 500 mg PO BID [facility] Last Admin: 02/13/17 10:48 Dose: 500 mg Losartan Potassium (Cozaar) 100 mg PO DAILY [facility] Last Admin: 02/13/17 10:48 Dose: 100 mg Metoprolol Tartrate (Lopressor) 100 mg PO Q12 [facility] Last Admin: 02/13/17 10:48 Dose: 100 mg Ondansetron HCl (Zofran Inj) 4 mg IVP Q6 PRN PRN Reason: Nausea/Vomiting Oxycodone/Acetaminophen (Percocet 5/325 Mg Tab) 1 tab PO Q6H PRN PRN Reason: Pain, moderate (4-7) Stop: 02/13/17 14:36 Last Admin: 02/10/17 16:35 Dose: 1 tab Simethicone (Mylicon Chew Tab) 80 mg PO QID [facility] Last Admin: 02/13/17 10:48 Dose: 80 mg - Labs Labs: 02/13/17 07:09 02/13/17 07:09 PT 20.1 SECONDS (9.7-12.2) H 02/13/17 07:09 INR 1.8 02/13/17 07:09 APTT 32 SECONDS (21-34) 02/13/17 07:09 - Constitutional Appears: Well, Non-toxic, No Acute Distress - Head Exam Head Exam: ATRAUMATIC, NORMAL INSPECTION, NORMOCEPHALIC - Eye Exam Eye Exam: EOMI - ENT Exam ENT Exam: Mucous Membranes Moist - Respiratory Exam Respiratory Exam: Clear to Ausculation Bilateral, NORMAL BREATHING PATTERN - Cardiovascular Exam Cardiovascular Exam: REGULAR RHYTHM - GI/Abdominal Exam GI & Abdominal Exam: Soft, Normal Bowel Sounds. absent: Distended, Tenderness - Extremities Exam Additional comments: legs are cool, pulses are audible by doppler - Neurological Exam Neurological Exam: Alert, Awake - Psychiatric Exam Psychiatric exam: Normal Affect - Skin Skin Exam: Dry, Intact, Normal Color, Warm Assessment and Plan - Assessment and Plan (Free Text) Assessment: PAD * Coumadin 7.5 mg PO x 1 dose * INR is 1.8 * Goal INR is 2.5. * Therapeutic Lovenox. Malignant HTN * Cards ([facility]) * Chlorthalidone, Cozaar, Hydralazine PRN * Cardizem CD 360 mg 1x/day. * Metoprolol to 100 mg PO Q12H * CT Angiogram of the Abdomen/Pelvis 02/04/17 did NOT show any evidence of Renal Artery Stenosis Hx Atrial Fibrillation * Coumadin 7.5 mg PO x 1 dose tonight * INR is 1.8 * goal INR is 2.5 * therapeutic Lovenox * Cardizem CD 360 mg PO 1x/day * Metoprolol 100 mg PO Q12H Hx Seizure Disorder * Neurology (Onesimo Hogan) * Keppra 500 mg PO 2x/day Hx Multiple CVAs * Crestor is being held considering the elevated LFTs Elevated LFTs * secondary to the Dilantin and Crestor - Held Elevated WBC * Blood and Urine Culture 02/10/17 are negative to date. Prophylaxis * Pepcid, Dilaudid, Zofran, Percocet, Simethicone <Unruly Vnies - Last Filed: 02/13/17 18:53> Objective - Vital Signs/Intake and Output Vital Signs (last 24 hours): Temp Pulse Resp BP Pulse Ox 98.1 F 78 20 120/65 96 02/13/17 16:00 02/13/17 16:00 02/13/17 16:00 02/13/17 16:00 02/13/17 16:00 Intake and Output: 02/13/17 02/13/17 06:59 18:59 Intake Total 500 Output Total 1200 400 Balance -1200 100 - Medications Medications: Current Medications Chlorthalidone (Hygroton) 25 mg PO DAILY [facility] Last Admin: 02/13/17 10:48 Dose: 25 mg Diltiazem HCl (Cardizem Cd) 360 mg PO DAILY [facility] Last Admin: 02/13/17 10:48 Dose: 360 mg Enoxaparin Sodium (Lovenox) 90 mg SC Q12 [facility] Last Admin: 02/13/17 10:46 Dose: 90 mg Famotidine (Pepcid) 20 mg PO DAILY [facility] Last Admin: 02/13/17 10:48 Dose: 20 mg Hydralazine HCl (Apresoline) 10 mg IVP Q6H PRN PRN Reason: Systolic Blood Pressure Hydromorphone HCl (Dilaudid) 0.5 mg IVP Q6H PRN PRN Reason: Pain, severe (8-10) Last Admin: 02/13/17 10:51 Dose: 0.5 mg Levetiracetam (Keppra) 500 mg PO BID [facility] Last Admin: 02/13/17 17:54 Dose: 500 mg Losartan Potassium (Cozaar) 100 mg PO DAILY [facility] Last Admin: 02/13/17 10:48 Dose: 100 mg Metoprolol Tartrate (Lopressor) 100 mg PO Q12 [facility] Last Admin: 02/13/17 10:48 Dose: 100 mg Ondansetron HCl (Zofran Inj) 4 mg IVP Q6 PRN PRN Reason: Nausea/Vomiting Simethicone (Mylicon Chew Tab) 80 mg PO QID [facility] Last Admin: 02/13/17 17:54 Dose: 80 mg - Labs Labs: 02/13/17 07:09 02/13/17 07:09 PT 20.1 SECONDS (9.7-12.2) H 02/13/17 07:09 INR 1.8 02/13/17 07:09 APTT 32 SECONDS (21-34) 02/13/17 07:09 Attending/Attestation - Attestation I have personally seen and examined this patient.: Yes I have fully participated in the care of the patient.: Yes I have reviewed all pertinent clinical information, including history, physical exam and plan: Yes Notes (Text): 02/13/17 18:40 Hospitalist Progress Note Patient was seen and examined at 2:00 PM 02/13/17. 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 Currently upon FULL ROS: Patient complaining of significant pain in both lower legs that is 10/10 NO other complaints upon FULL ROS Exam: General: Awake and Alert, NAD HEENT: NCA, EOMI, PERRLA, NO lymphadenopathy, NO thyromegaly, NO pharyngeal erythema/exudate Cardio: NS1 and NS2, NO M/R/G Respiratory: CTA B/L, NO R/R/W GI: BSx4, Soft, Central Obesity therefore Liver and Spleen could not be adequately palpated, NO guarding/rebound tenderness Ext: Bilateral Pulses UE and LE are strong and equal, Capillary Refill is 2 seconds, NO edema, There was an area of hyeremia in the Anterior Left Lower Leg , both legs were extremely sensitive to light touch, there is NO discoloration of the toes however they are cooler to touch today. Neuro: CN II through XII are grossly intact Assessments: 1). PAD: Coumadin 7.5 mg PO x 1 dose tonight, INR is 1.8, F/U INR 02/13/17. I spoke with Data Center Architect Dr. Brown and the goal INR is 2.5. He is on therapeutic Lovenox. Extensive conversation with Daughter Pura [phone] on 02/12/17. Both Dr. Brown and Dr. Kaur along with myself explained that at this point the best option was to control the patient's pain as further surgical intervention ( Femoral Bypass) was not an option as the distal arteries in the bilateral legs could not support this procedure. The subject of the possibility of amputation in the future was also discussed. The plan for now is to control patient's pain and get the INR therapeutic to at least 2.5 and then discharge patient to home. Pura expressed understanding. 2). Malignant HTN: Chlorthalidone, Cozaar, Hydralazine PRN, and Cardizem CD 360 mg 1x/day. Data Center Architect Dr. Brown 02/12/17 and he has increased Metoprolol to [address] Angiogram of the Abdomen/Pelvis 02/04/17 did NOT show any evidence of Renal Artery Stenosis 3). Hx Atrial Fibrillation: Coumadin 7.5 mg PO x 1 dose tonight, INR is 1.8, F /U INR 02/13/17. I spoke with Data Center Architect Dr. Brown and the goal INR is 2.5. He is on therapeutic Lovenox. Cardizem CD 360 mg PO 1x/day and Metoprolol 100 mg PO Q12H. His blood pressure is better under control. 4). Hx Seizure Disorder: as his LFTs are elevated, Neurology Consult was ordered with Dr. Onesimo Hogan to see if patient could be switched over to Keppra. Dr. Hogan has placed patient on Keppra 500 mg PO 2x/day 5). Hx Multiple CVAs: Crestor is being held considering the elevated LFTs and that his Lipid Profile is currently WNL. His Lipid profile and LFTs will need to be monitored by his PMD upon discharge 6). Elevated LFTs: could be secondary to the Dilantin and the Crestor. The Crestor is being held and the Dilantin switched over to Keppra. The LFTs will need to be monitored by his PMD upon discharge. 7). Elevated WBC: there is NO fever and NO shift. Blood and Urine Culture are negative to date. 8). Prophylaxis: Pepcid, Dilaudid, Zofran, Percocet, Simethicone Unruly Vines D.O.
--- NOTE | 2017-02-13 17:51 | CP.PCM.PN ---
Subjective - Date & Time of Evaluation Date of Evaluation: 02/13/17 Time of Evaluation: 17:47 - Subjective Subjective: HR controlled on bb and ccb INR 1.8 pain improving Objective - Vital Signs/Intake and Output Vital Signs (last 24 hours): Temp Pulse Resp BP Pulse Ox 98.1 F 78 20 120/65 96 02/13/17 16:00 02/13/17 16:00 02/13/17 16:00 02/13/17 16:00 02/13/17 16:00 Intake and Output: 02/13/17 02/13/17 06:59 18:59 Intake Total 500 Output Total 1200 400 Balance -1200 100 - Medications Medications: Current Medications Chlorthalidone (Hygroton) 25 mg PO DAILY [facility] Last Admin: 02/13/17 10:48 Dose: 25 mg Diltiazem HCl (Cardizem Cd) 360 mg PO DAILY [facility] Last Admin: 02/13/17 10:48 Dose: 360 mg Enoxaparin Sodium (Lovenox) 90 mg SC Q12 [facility] Last Admin: 02/13/17 10:46 Dose: 90 mg Famotidine (Pepcid) 20 mg PO DAILY [facility] Last Admin: 02/13/17 10:48 Dose: 20 mg Hydralazine HCl (Apresoline) 10 mg IVP Q6H PRN PRN Reason: Systolic Blood Pressure Hydromorphone HCl (Dilaudid) 0.5 mg IVP Q6H PRN PRN Reason: Pain, severe (8-10) Last Admin: 02/13/17 10:51 Dose: 0.5 mg Levetiracetam (Keppra) 500 mg PO BID [facility] Last Admin: 02/13/17 10:48 Dose: 500 mg Losartan Potassium (Cozaar) 100 mg PO DAILY [facility] Last Admin: 02/13/17 10:48 Dose: 100 mg Metoprolol Tartrate (Lopressor) 100 mg PO Q12 [facility] Last Admin: 02/13/17 10:48 Dose: 100 mg Ondansetron HCl (Zofran Inj) 4 mg IVP Q6 PRN PRN Reason: Nausea/Vomiting Simethicone (Mylicon Chew Tab) 80 mg PO QID [facility] Last Admin: 02/13/17 14:48 Dose: 80 mg Warfarin Sodium (Coumadin) 7.5 mg PO 1800 [facility] Stop: 02/13/17 18:01 - Labs Labs: 02/13/17 07:09 02/13/17 07:09 PT 20.1 SECONDS (9.7-12.2) H 02/13/17 07:09 INR 1.8 02/13/17 07:09 APTT 32 SECONDS (21-34) 02/13/17 07:09 - Constitutional Appears: Well - Head Exam Head Exam: ATRAUMATIC, NORMAL INSPECTION, NORMOCEPHALIC - Eye Exam Eye Exam: EOMI, Normal appearance, PERRL Pupil Exam: NORMAL ACCOMODATION, PERRL - ENT Exam ENT Exam: Mucous Membranes Moist, Normal Exam - Neck Exam Neck Exam: Full ROM, Normal Inspection. absent: Lymphadenopathy - Respiratory Exam Respiratory Exam: Clear to Ausculation Bilateral, NORMAL BREATHING PATTERN - Cardiovascular Exam Cardiovascular Exam: REGULAR RHYTHM, +S1, +S2, Murmur - GI/Abdominal Exam GI & Abdominal Exam: Soft, Normal Bowel Sounds. absent: Tenderness - Extremities Exam Extremities Exam: Full ROM, Normal Capillary Refill, Normal Inspection. absent : Joint Swelling, Pedal Edema - Neurological Exam Neurological Exam: Alert, Awake, CN II-XII Intact, Oriented x3 - Psychiatric Exam Psychiatric exam: Normal Affect, Normal Mood - Skin Skin Exam: Dry, Intact, Normal Color, Warm Assessment and Plan (1) Atrial fibrillation Assessment & Plan: rate controlled with bb and ccb on coumadin target INR 2.5 Status: Acute (2) HTN (hypertension), malignant Assessment & Plan: bp stable mild fluctutions due to pain Status: Acute (3) Critical lower limb ischemia Assessment & Plan: s/p thrombectomy following on coumadin Status: Acute
[2017-02-14 07:03] LABS: BASO % 0.1 % (0.0-2.0); EOS % 0.2 % (0.0-4.0); HEMATOCRIT 35.8 % (35.0-51.0); LYMPH % 6.8 % (20.0-40.0); MEAN CELL VOLUME 77.8 fL (80.0-94.0); MEAN CORPUSCULAR HEMOGLOBIN 26.2 pg (27.0-31.0); MEAN CORPUSCULAR HGB CONC 33.7 g/dL (33.0-37.0); MEAN PLATELET VOLUME 7.9 fL (7.2-11.7); MONO % 6.8 % (0.0-10.0); PLATELET COUNT 488 K/uL (130-400); RED CELL DISTRIBUTION WIDTH 16.7 % (11.5-14.5); WHITE BLOOD COUNT 14.6 K/uL (4.8-10.8)
[2017-02-14 07:06] LABS: INR 2.3
[2017-02-14 07:35] LABS: ALB/GLOB RATIO 0.8 (1.0-2.1); ALKALINE PHOSPHATASE 108 U/L (38-126); ALT/SGPT 141 U/L (21-72); AST/SGOT 139 U/L (17-59); BILIRUBIN,TOTAL 0.5 mg/dL (0.2-1.3); BLOOD UREA NITROGEN 27 mg/dL (9-20); CALCIUM 8.3 mg/dl (8.6-10.4); CARBON DIOXIDE 27 mmol/L (22-30); CHLORIDE 96 mmol/L (98-107); GFR AFRICAN-AMERICAN > 60; GLUCOSE,RANDOM 99 mg/dL (75-110); POTASSIUM 4.4 mmol/L (3.6-5.2); SODIUM 135 mmol/L (132-148); TOTAL PROTEIN 6.4 g/dL (6.3-8.3)
[2017-02-14 09:01] LABS: NEUTROPHIL 85 % (50-75); TOTAL CELLS COUNTED 100
[2017-02-14 09:02] LABS: LARGE PLATELETS PRESENT
--- NOTE | 2017-02-14 09:13 | CP.PCM.PN ---
Subjective - Date & Time of Evaluation Date of Evaluation: 02/14/17 Time of Evaluation: 09:00 - Subjective Subjective: Hospitalist Progress Note Patient was seen and examined at 9:00 AM 02/14/17. Admitted on 02/04/17 for evaluation of severe left calf pain. He underwent bilateral femoral artery thrombectomy on 02/05/17. Currently upon FULL ROS: Patient complaining of significant pain in both lower legs that is 10/10 if he tries to move it or if the lower legs/feet are palpated NO other complaints upon FULL ROS Exam: General: Awake and Alert, NAD HEENT: NCA, EOMI, PERRLA, NO lymphadenopathy, NO thyromegaly, NO pharyngeal erythema/exudate Cardio: NS1 and NS2, NO M/R/G Respiratory: CTA B/L, NO R/R/W GI: BSx4, Soft, Central Obesity therefore Liver and Spleen could not be adequately palpated, NO guarding/rebound tenderness Ext: Bilateral Pulses UE and LE are strong and equal, Capillary Refill is 2 seconds, NO edema, There was an area of hyeremia in the Anterior Left Lower Leg , both legs were extremely sensitive to light touch, there is NO discoloration of the toes however they are cooler to touch today. Neuro: CN II through XII are grossly intact Assessments: 1). PAD: Coumadin 7.5 mg PO x 1 dose tonight, INR is 2.3, F/U INR 02/14/17. I spoke with Scenic Designer Dr. Brown and the goal INR is 2.5. He is on therapeutic Lovenox. Extensive conversation with Daughter Pura [phone] on 02/12/17. Both Dr. Brown and Dr. Kaur along with myself explained that at this point the best option was to control the patient's pain as further surgical intervention ( Femoral Bypass) was not an option as the distal arteries in the bilateral legs could not support this procedure. The subject of the possibility of amputation in the future was also discussed. The plan for now is to control patient's pain and get the INR therapeutic to at least 2.5 and then discharge patient to home. Pura expressed understanding. 2). Malignant HTN: Chlorthalidone, Cozaar, Hydralazine PRN, and Cardizem CD 360 mg 1x/day. Scenic Designer Dr. Brown 02/12/17 and he has increased Metoprolol to [address] Angiogram of the Abdomen/Pelvis 02/04/17 did NOT show any evidence of Renal Artery Stenosis 3). Hx Atrial Fibrillation: Coumadin 7.5 mg PO x 1 dose tonight, INR is 2.3, F /U INR 02/13/17. I spoke with Scenic Designer Dr. Brown and the goal INR is 2.5. He is on therapeutic Lovenox. Cardizem CD 360 mg PO 1x/day and Metoprolol 100 mg PO Q12H. His blood pressure is better under control. 4). Hx Seizure Disorder: as his LFTs are elevated, Neurology Consult was ordered with Dr. Onesimo Hogan to see if patient could be switched over to Keppra. Dr. Hogan has placed patient on Keppra 500 mg PO 2x/day 5). Hx Multiple CVAs: Crestor is being held considering the elevated LFTs and that his Lipid Profile is currently WNL. His Lipid profile and LFTs will need to be monitored by his PMD upon discharge 6). Elevated LFTs: could be secondary to the Dilantin and the Crestor. The Crestor is being held and the Dilantin switched over to Keppra. The LFTs will need to be monitored by his PMD upon discharge. LFT elevation is currently stable 7). Elevated WBC: there is NO fever and NO shift. Blood and Urine Culture are negative to date. 8). Prophylaxis: Pepcid, Dilaudid, Zofran, Percocet, Simethicone Sonography Technician Leilani has already set up Home Visiting Nurse through [facility] for 6 visits (they will then determine if more is needed afterwards) which Daughter Pura will be paying out of pocket ($150 to $200 a visit). When INR is therapeutic (2.5), then patient can be discharged. Transportation voucher will need to be completed by Nurse. Unruly Vines D.O. Objective - Vital Signs/Intake and Output Vital Signs (last 24 hours): Temp Pulse Resp BP Pulse Ox 98.0 F 95 H 20 118/79 98 02/14/17 09:02 02/14/17 09:02 02/14/17 09:02 02/14/17 09:02 02/14/17 09:02 Intake and Output: 02/14/17 02/14/17 06:59 18:59 Intake Total 800 Output Total 600 Balance 200 - Medications Medications: Current Medications Chlorthalidone (Hygroton) 25 mg PO DAILY [facility] Last Admin: 02/13/17 10:48 Dose: 25 mg Diltiazem HCl (Cardizem Cd) 360 mg PO DAILY [facility] Last Admin: 02/13/17 10:48 Dose: 360 mg Enoxaparin Sodium (Lovenox) 90 mg SC Q12 [facility] Last Admin: 02/13/17 21:39 Dose: 90 mg Famotidine (Pepcid) 20 mg PO DAILY [facility] Last Admin: 02/13/17 10:48 Dose: 20 mg Hydralazine HCl (Apresoline) 10 mg IVP Q6H PRN PRN Reason: Systolic Blood Pressure Hydromorphone HCl (Dilaudid) 0.5 mg IVP Q6H PRN PRN Reason: Pain, severe (8-10) Last Admin: 02/13/17 10:51 Dose: 0.5 mg Levetiracetam (Keppra) 500 mg PO BID [facility] Last Admin: 02/13/17 17:54 Dose: 500 mg Losartan Potassium (Cozaar) 100 mg PO DAILY [facility] Last Admin: 02/13/17 10:48 Dose: 100 mg Metoprolol Tartrate (Lopressor) 100 mg PO Q12 [facility] Last Admin: 02/13/17 21:40 Dose: 100 mg Ondansetron HCl (Zofran Inj) 4 mg IVP Q6 PRN PRN Reason: Nausea/Vomiting Simethicone (Mylicon Chew Tab) 80 mg PO QID [facility] Last Admin: 02/13/17 21:40 Dose: 80 mg - Labs Labs: 02/14/17 06:55 02/14/17 06:55 PT 26.3 SECONDS (9.7-12.2) H D 02/14/17 06:55 INR 2.3 D 02/14/17 06:55 APTT 32 SECONDS (21-34) 02/13/17 07:09
[2017-02-14] MEDS: Simethicone 80 mg Chewtab PO SCH ×4 (10:05→22:41)
[2017-02-14] MEDS: diltiaZEM 180 mg/24 Hours CD Cap PO SCH (10:05)
[2017-02-14] MEDS: Enoxaparin 100 mg Syringe SC SCH ×2 (10:08→22:43)
[2017-02-14] MEDS: HYDROmorphone 0.5 mg/0.5 ml ISec IVP PRN (10:10)
[2017-02-15] MEDS: HYDROmorphone 0.5 mg/0.5 ml ISec IVP PRN ×2 (00:47→11:06)
[2017-02-15 08:15] LABS: BASO # 0.1 K/uL (0.0-0.2); BASO % 0.4 % (0.0-2.0); EOS % 0.3 % (0.0-4.0); HEMATOCRIT 35.2 % (35.0-51.0); LYMPH % 7.4 % (20.0-40.0); MEAN CELL VOLUME 77.7 fL (80.0-94.0); MEAN CORPUSCULAR HEMOGLOBIN 26.4 pg (27.0-31.0); MONO # 0.9 K/uL (0.0-0.8); MONO % 6.1 % (0.0-10.0); PLATELET COUNT 513 K/uL (130-400); RED CELL DISTRIBUTION WIDTH 16.1 % (11.5-14.5); WHITE BLOOD COUNT 14.2 K/uL (4.8-10.8)
[2017-02-15 08:23] LABS: INR 2.2
[2017-02-15 08:24] LABS: CHLORIDE 96 mmol/L (98-107); POTASSIUM 4.1 mmol/L (3.6-5.2); SODIUM 128 mmol/L (132-148)
[2017-02-15 08:26] LABS: BILIRUBIN,TOTAL 0.4 mg/dL (0.2-1.3); GFR AFRICAN-AMERICAN > 60
[2017-02-15 08:27] LABS: ALB/GLOB RATIO 0.9 (1.0-2.1); ALKALINE PHOSPHATASE 100 U/L (38-126); ALT/SGPT 145 U/L (21-72); AST/SGOT 118 U/L (17-59); BLOOD UREA NITROGEN 24 mg/dL (9-20); CALCIUM 8.2 mg/dl (8.6-10.4); CARBON DIOXIDE 23 mmol/L (22-30); GLUCOSE,RANDOM 104 mg/dL (75-110); PHOSPHOROUS 3.3 mg/dL (2.5-4.5); TOTAL PROTEIN 6.1 g/dL (6.3-8.3)
[2017-02-15 08:28] LABS: MAGNESIUM 2.4 mg/dL (1.6-2.3)
--- NOTE | 2017-02-15 08:37 | CP.PCM.PN ---
Subjective - Date & Time of Evaluation Date of Evaluation: 02/15/17 Time of Evaluation: 08:25 - Subjective Subjective: Hospitalist Progress Note Patient was seen and examined at 8:25 AM 02/15/17. Admitted on 02/04/17 for evaluation of severe left calf pain. He underwent bilateral femoral artery thrombectomy on 02/05/17. Currently upon FULL ROS: Patient complaining of significant pain in both lower legs that is 10/10 if he tries to move it or if the lower legs/feet are palpated NO other complaints upon FULL ROS Exam: General: Awake and Alert, NAD HEENT: NCA, EOMI, PERRLA, NO lymphadenopathy, NO thyromegaly, NO pharyngeal erythema/exudate Cardio: NS1 and NS2, NO M/R/G Respiratory: CTA B/L, NO R/R/W GI: BSx4, Soft, Central Obesity therefore Liver and Spleen could not be adequately palpated, NO guarding/rebound tenderness Ext: Bilateral Pulses UE and are strong and equal, Bilateral LE pulses are equal but weaker compared to the UE pulses, Capillary Refill is 2 seconds, NO edema, There was an area of hyperemia in the Anterior Left Lower Leg, both legs were extremely sensitive to light touch, there is NO discoloration of the toes however they are cooler to touch. Neuro: CN II through XII are grossly intact Groin: Right Groin Surgical Site with intact mehran and no dehiscence, no bleeding. Assessments: 1). PAD: Coumadin 7.5 mg PO x 1 dose tonight, INR is 2.2, F/U INR 02/16/17. I spoke with Naphthalene Operator Helper Dr. Brown and the goal INR is 2.5. He is on therapeutic Lovenox. Extensive conversation with Daughter Pura [phone] on 02/12/17. Both Dr. Brown and Dr. Kaur along with myself explained that at this point the best option was to control the patient's pain as further surgical intervention ( Femoral Bypass) was not an option as the distal arteries in the bilateral legs could not support this procedure. The subject of the possibility of amputation in the future was also discussed. The plan for now is to control patient's pain and get the INR therapeutic to at least 2.5 and then discharge patient to home. Pura expressed understanding. 2). Malignant HTN: Chlorthalidone, Cozaar, Hydralazine PRN, and Cardizem CD 360 mg 1x/day. Naphthalene Operator Helper Dr. Brown 02/12/17 and he has increased Metoprolol to [address] Angiogram of the Abdomen/Pelvis 02/04/17 did NOT show any evidence of Renal Artery Stenosis 3). Hx Atrial Fibrillation: Coumadin 7.5 mg PO x 1 dose tonight, INR is 2.2, F /U INR 02/15/17. I spoke with Naphthalene Operator Helper Dr. Brown and the goal INR is 2.5. He is on therapeutic Lovenox. Cardizem CD 360 mg PO 1x/day and Metoprolol 100 mg PO Q12H. His blood pressure is better under control. 4). Hx Seizure Disorder: as his LFTs are elevated, Neurology Consult was ordered with Dr. Onesimo Hogan to see if patient could be switched over to Keppra. Dr. Hogan has placed patient on Keppra 500 mg PO 2x/day 5). Hx Multiple CVAs: Crestor is being held considering the elevated LFTs and that his Lipid Profile is currently WNL. His Lipid profile and LFTs will need to be monitored by his PMD upon discharge 6). Elevated LFTs: could be secondary to the Dilantin and the Crestor. The Crestor is being held and the Dilantin switched over to Keppra. The LFTs will need to be monitored by his PMD upon discharge. LFT elevation is currently stable 7). Elevated WBC: there is NO fever and NO shift. Blood and Urine Culture are negative to date. 8). Prophylaxis: Pepcid, Dilaudid, Zofran, Percocet, Simethicone Thrasher Feeder Leilani has already set up Home Visiting Nurse through [facility] for 6 visits (they will then determine if more is needed afterwards) which Daughter Pura will be paying out of pocket ($150 to $200 a visit). When INR is therapeutic (2.5), then patient can be discharged. Transportation voucher will need to be completed by Nurse. Unruly Vines D.O. Objective - Vital Signs/Intake and Output Vital Signs (last 24 hours): Temp Pulse Resp BP Pulse Ox 97.9 F 63 20 124/70 100 09/09/17 23:25 02/14/17 23:25 02/14/17 23:25 02/14/17 23:25 02/14/17 23:25 - Medications Medications: Current Medications Chlorthalidone (Hygroton) 25 mg PO DAILY [facility] Last Admin: 02/14/17 10:05 Dose: 25 mg Diltiazem HCl (Cardizem Cd) 360 mg PO DAILY [facility] Last Admin: 02/14/17 10:05 Dose: 360 mg Enoxaparin Sodium (Lovenox) 90 mg SC Q12 [facility] Last Admin: 02/14/17 22:43 Dose: 90 mg Famotidine (Pepcid) 20 mg PO DAILY [facility] Last Admin: 02/14/17 10:05 Dose: 20 mg Hydralazine HCl (Apresoline) 10 mg IVP Q6H PRN PRN Reason: Systolic Blood Pressure Hydromorphone HCl (Dilaudid) 0.5 mg IVP Q6H PRN PRN Reason: Pain, severe (8-10) Last Admin: 02/15/17 00:47 Dose: 0.5 mg Levetiracetam (Keppra) 500 mg PO BID [facility] Last Admin: 02/14/17 18:11 Dose: 500 mg Losartan Potassium (Cozaar) 100 mg PO DAILY [facility] Last Admin: 02/14/17 10:05 Dose: 100 mg Metoprolol Tartrate (Lopressor) 100 mg PO Q12 [facility] Last Admin: 02/14/17 22:41 Dose: 100 mg Ondansetron HCl (Zofran Inj) 4 mg IVP Q6 PRN PRN Reason: Nausea/Vomiting Simethicone (Mylicon Chew Tab) 80 mg PO QID [facility] Last Admin: 02/14/17 22:41 Dose: 80 mg - Labs Labs: 02/15/17 08:10 02/15/17 08:10 PT 25.8 SECONDS (9.7-12.2) H 02/15/17 08:10 INR 2.2 02/15/17 08:10 APTT 33 SECONDS (21-34) 02/15/17 08:10
[2017-02-15 09:33] LABS: NEUTROPHIL 86 % (50-75); TOTAL CELLS COUNTED 100
[2017-02-15 09:35] LABS: LARGE PLATELETS PRESENT
[2017-02-15] MEDS: Enoxaparin 100 mg Syringe SC SCH ×2 (10:58→21:40)
[2017-02-15] MEDS: diltiaZEM 180 mg/24 Hours CD Cap PO SCH (10:59)
[2017-02-15] MEDS: Simethicone 80 mg Chewtab PO SCH ×4 (10:59→21:41)
[2017-02-16 08:23] LABS: BASO # 0.1 K/uL (0.0-0.2); BASO % 0.6 % (0.0-2.0); EOS # 0.1 K/uL (0.0-0.7); EOS % 0.4 % (0.0-4.0); HEMATOCRIT 34.7 % (35.0-51.0); LYMPH # 0.9 K/uL (1.0-4.3); LYMPH % 7.2 % (20.0-40.0); MEAN CELL VOLUME 78.8 fL (80.0-94.0); MEAN CORPUSCULAR HEMOGLOBIN 25.9 pg (27.0-31.0); MEAN CORPUSCULAR HGB CONC 32.9 g/dL (33.0-37.0); MEAN PLATELET VOLUME 8.2 fL (7.2-11.7); MONO # 0.9 K/uL (0.0-0.8); MONO % 6.8 % (0.0-10.0); PLATELET COUNT 498 K/uL (130-400); RED CELL DISTRIBUTION WIDTH 16.4 % (11.5-14.5); WHITE BLOOD COUNT 12.8 K/uL (4.8-10.8)
[2017-02-16 08:35] LABS: INR 2.2
[2017-02-16 08:39] LABS: ALB/GLOB RATIO 0.9 (1.0-2.1); ALKALINE PHOSPHATASE 95 U/L (38-126); ALT/SGPT 157 U/L (21-72); AST/SGOT 117 U/L (17-59); BILIRUBIN,TOTAL 0.4 mg/dL (0.2-1.3); BLOOD UREA NITROGEN 23 mg/dL (9-20); CALCIUM 8.3 mg/dl (8.6-10.4); CARBON DIOXIDE 26 mmol/L (22-30); CHLORIDE 95 mmol/L (98-107); GFR AFRICAN-AMERICAN > 60; GLUCOSE,RANDOM 95 mg/dL (75-110); MAGNESIUM 2.5 mg/dL (1.6-2.3); PHOSPHOROUS 3.6 mg/dL (2.5-4.5); SODIUM 133 mmol/L (132-148); TOTAL PROTEIN 6.4 g/dL (6.3-8.3)
[2017-02-16 09:07] LABS: NEUTROPHIL 86 % (50-75); TOTAL CELLS COUNTED 100
[2017-02-16] MEDS: diltiaZEM 180 mg/24 Hours CD Cap PO SCH (09:45)
[2017-02-16] MEDS: Simethicone 80 mg Chewtab PO SCH ×3 (09:46→21:49)
[2017-02-16] MEDS: Enoxaparin 100 mg Syringe SC SCH ×2 (09:52→21:56)
--- NOTE | 2017-02-16 09:59 | CP.PCM.PN ---
<Alexandra Skinner V - Last Filed: 02/16/17 18:05> Objective - Vital Signs/Intake and Output Vital Signs (last 24 hours): Temp Pulse Resp BP Pulse Ox 99.6 F 76 18 110/65 96 02/16/17 16:00 02/16/17 16:00 02/16/17 16:00 02/16/17 16:00 02/16/17 16:00 Intake and Output: 02/16/17 02/16/17 06:59 18:59 Intake Total 500 Balance 500 - Medications Medications: Current Medications Chlorthalidone (Hygroton) 25 mg PO DAILY [facility] Last Admin: 02/16/17 09:46 Dose: 25 mg Diltiazem HCl (Cardizem Cd) 360 mg PO DAILY [facility] Last Admin: 02/16/17 09:45 Dose: 360 mg Enoxaparin Sodium (Lovenox) 90 mg SC Q12 [facility] Last Admin: 02/16/17 09:52 Dose: 90 mg Famotidine (Pepcid) 20 mg PO DAILY [facility] Last Admin: 02/16/17 09:46 Dose: 20 mg Hydralazine HCl (Apresoline) 10 mg IVP Q6H PRN PRN Reason: Systolic Blood Pressure Hydromorphone HCl (Dilaudid) 0.5 mg IVP Q6H PRN PRN Reason: Pain, severe (8-10) Last Admin: 02/16/17 11:40 Dose: 0.5 mg Levetiracetam (Keppra) 500 mg PO BID [facility] Last Admin: 02/16/17 09:46 Dose: 500 mg Losartan Potassium (Cozaar) 100 mg PO DAILY [facility] Last Admin: 02/16/17 09:45 Dose: 100 mg Metoprolol Tartrate (Lopressor) 100 mg PO Q12 [facility] Last Admin: 02/16/17 09:46 Dose: 100 mg Ondansetron HCl (Zofran Inj) 4 mg IVP Q6 PRN PRN Reason: Nausea/Vomiting Simethicone (Mylicon Chew Tab) 80 mg PO QID [facility] Last Admin: 02/16/17 14:47 Dose: 80 mg - Labs Labs: 02/16/17 08:19 02/16/17 08:19 PT 26.3 SECONDS (9.7-12.2) H 02/16/17 08:19 INR 2.2 02/16/17 08:19 APTT 36 SECONDS (21-34) H 02/16/17 08:19 Attending/Attestation - Attestation I have personally seen and examined this patient.: Yes I have fully participated in the care of the patient.: Yes I have reviewed all pertinent clinical information, including history, physical exam and plan: Yes Notes (Text): Patient seen, examined and case discussed with day-time resident. Patient seen this morning during rounds. Patient recognizes me at bedside. Patient denies acute complaints except for leg pain. Patient's INR is subtherapeutic at 2.2; Will given dose of Coumadin 7.5mg PO X1 tonight and ensure diet is low in leafy greens. Patient's blood pressure is controlled. Assessment/Plan 1). PAD: Coumadin 7.5 mg PO x 1 dose tonight, INR is 2.2, F/U INR: 2.2 I spoke with Burning Plant Operator Dr. Brown and the goal INR is 2.5. He is on therapeutic Lovenox. My colleague Dr. Milton Vines had extensive conversation with Daughter Pura [phone] on 02/12/17. Both Dr. Brown and Dr. Kaur along with him explained that at this point the best option was to control the patient's pain as further surgical intervention (Femoral Bypass) was not an option as the distal arteries in the bilateral legs could not support this procedure. The subject of the possibility of amputation in the future was also discussed. The plan for now is to control patient's pain and get the INR therapeutic to at least 2.5 and then discharge patient to home. Pura expressed understanding. 2). Malignant HTN: Chlorthalidone 25mg PO daily, Cozaar 100mg PO daily, Hydralazine PRN, Cardizem CD 360 mg 1x/day, Metoprolol 100mg PO Q bid. Burning Plant Operator Dr. Brown 02/12/17 and he has increased Metoprolol to [address] Angiogram of the Abdomen/Pelvis 02/04/17 did NOT show any evidence of Renal Artery Stenosis 3). Hx Atrial Fibrillation: Coumadin 7.5 mg PO x 1 dose tonight, INR is 2.2, F /U INR 02/17/17. I spoke with Burning Plant Operator Dr. Brown and the goal INR is 2.5. He is on therapeutic Lovenox. Cardizem CD 360 mg PO 1x/day and Metoprolol 100 mg PO Q12H. His blood pressure is better under control. 4). Hx Seizure Disorder: as his LFTs are elevated, Neurology Consult was ordered with Dr. Onesimo Hogan to see if patient could be switched over to Keppra. Dr. Hogan has placed patient on Keppra 500 mg PO 2x/day 5). Hx Multiple CVAs: Crestor is being held considering the elevated LFTs and that his Lipid Profile is currently WNL. His Lipid profile and LFTs will need to be monitored by his PMD upon discharge 6). Elevated LFTs: could be secondary to the Dilantin and the Crestor. The Crestor is being held and the Dilantin switched over to Keppra. The LFTs will need to be monitored by his PMD upon discharge. LFT elevation is currently stable. Ordered for hepatitis panel. 7). Elevated WBC: there is NO fever and NO shift. Blood and Urine Culture are negative to date and final. White down trending. Afebrile. 8). Prophylaxis: Pepcid, Dilaudid, Zofran, Percocet, Simethicone Disposition: * Draw Fire Operator Leialni has already set up Home Visiting Nurse through [facility] for 6 visits (they will then determine if more is needed afterwards) which Daughter Pura will be paying out of pocket ($150 to $200 a visit). * Pending therapeutic INR prior to discharge. Patient will need to follow-up in the [facility] ([phone]) for INR check on to adjust Coumadin. * When INR is therapeutic (2.5), then patient can be discharged. Transportation voucher will need to be completed by Nurse. <Eloisa Crowe - Last Filed: 02/16/17 18:56> Subjective - Date & Time of Evaluation Date of Evaluation: 02/16/17 Time of Evaluation: 09:59 - Subjective Subjective: Patient S&E at bedside. Patient complaining of significant pain in both lower legs that is 10/10 if he tries to move it or if the lower legs/feet are palpated even with light touch. Pt denies CP/SOB, AP/N/V/D/C, F/C. Objective - Vital Signs/Intake and Output Vital Signs (last 24 hours): Temp Pulse Resp BP Pulse Ox 99.2 F 92 H 18 134/86 99 02/16/17 07:25 02/16/17 09:43 02/16/17 07:25 02/16/17 09:43 02/16/17 07:25 - Medications Medications: Current Medications Chlorthalidone (Hygroton) 25 mg PO DAILY [facility] Last Admin: 02/16/17 09:46 Dose: 25 mg Diltiazem HCl (Cardizem Cd) 360 mg PO DAILY [facility] Last Admin: 02/16/17 09:45 Dose: 360 mg Enoxaparin Sodium (Lovenox) 90 mg SC Q12 [facility] Last Admin: 02/16/17 09:52 Dose: 90 mg Famotidine (Pepcid) 20 mg PO DAILY [facility] Last Admin: 02/16/17 09:46 Dose: 20 mg Hydralazine HCl (Apresoline) 10 mg IVP Q6H PRN PRN Reason: Systolic Blood Pressure Hydromorphone HCl (Dilaudid) 0.5 mg IVP Q6H PRN PRN Reason: Pain, severe (8-10) Last Admin: 02/15/17 11:06 Dose: 0.5 mg Levetiracetam (Keppra) 500 mg PO BID [facility] Last Admin: 02/16/17 09:46 Dose: 500 mg Losartan Potassium (Cozaar) 100 mg PO DAILY [facility] Last Admin: 02/16/17 09:45 Dose: 100 mg Metoprolol Tartrate (Lopressor) 100 mg PO Q12 [facility] Last Admin: 02/16/17 09:46 Dose: 100 mg Ondansetron HCl (Zofran Inj) 4 mg IVP Q6 PRN PRN Reason: Nausea/Vomiting Simethicone (Mylicon Chew Tab) 80 mg PO QID [facility] Last Admin: 02/16/17 09:46 Dose: 80 mg - Labs Labs: 02/16/17 08:19 02/16/17 08:19 PT 26.3 SECONDS (9.7-12.2) H 02/16/17 08:19 INR 2.2 02/16/17 08:19 APTT 36 SECONDS (21-34) H 02/16/17 08:19 - Constitutional Appears: Non-toxic, No Acute Distress - Head Exam Head Exam: ATRAUMATIC, NORMAL INSPECTION, NORMOCEPHALIC - Eye Exam Eye Exam: EOMI - ENT Exam ENT Exam: Mucous Membranes Moist - Respiratory Exam Respiratory Exam: Clear to Ausculation Bilateral, NORMAL BREATHING PATTERN - Cardiovascular Exam Cardiovascular Exam: REGULAR RHYTHM, +S1, +S2 - GI/Abdominal Exam GI & Abdominal Exam: Soft, Normal Bowel Sounds. absent: Distended, Tenderness - Extremities Exam Extremities Exam: absent: Pedal Edema Additional comments: LEs cool to the touch. LEs exquisitely tender to slight touch b/l. No discoloration of toes noted. - Neurological Exam Neurological Exam: Alert, Awake - Psychiatric Exam Psychiatric exam: Normal Affect, Normal Mood - Skin Skin Exam: Dry, Intact, Normal Color Assessment and Plan - Assessment and Plan (Free Text) Assessment: 1). PAD: Coumadin 7.5 mg PO x 1 dose tonight, INR is 2.3, F/U INR 02/17/17. Goal INR is 2.5 as per Burning Plant Operator Dr. Brown. He is on therapeutic Lovenox. Daughter Pura [phone] is aware that further surgical intervention ( Femoral Bypass) was not an option as the distal arteries in the bilateral legs could not support this procedure and there is possibility of amputation in the future. The plan for now is to control patient's pain and get the INR therapeutic to at least 2.5 and then discharge patient to home. Instructed to decrease amount of green leafy veggies and vitamin K containing foods. 2). Malignant HTN: Chlorthalidone, Cozaar, Hydralazine PRN, and Cardizem CD 360 mg 1x/day. Burning Plant Operator Dr. Brown 02/12/17 and he has increased Metoprolol to [address] Angiogram of the Abdomen/Pelvis 02/04/17 did NOT show any evidence of Renal Artery Stenosis 3). Hx Atrial Fibrillation: Coumadin 7.5 mg PO x 1 dose tonight, INR is 2.3, F /U INR 02/13/17. I spoke with Burning Plant Operator Dr. Brown and the goal INR is 2.5. He is on therapeutic Lovenox. Cardizem CD 360 mg PO 1x/day and Metoprolol 100 mg PO Q12H. His blood pressure is better under control. 4). Hx Seizure Disorder: as his LFTs are elevated, Neurology Consult was ordered with Dr. Onesimo Hogan to see if patient could be switched over to Keppra. Dr. Hogan has placed patient on Keppra 500 mg PO 2x/day 5). Hx Multiple CVAs: Crestor is being held considering the elevated LFTs and that his Lipid Profile is currently WNL. His Lipid profile and LFTs will need to be monitored by his PMD upon discharge 6). Elevated LFTs: could be secondary to the Dilantin and the Crestor. The Crestor is being held and the Dilantin switched over to Keppra. The LFTs will need to be monitored by his PMD upon discharge. LFT elevation is currently stable 7). Elevated WBC: there is NO fever and NO shift. Blood and Urine Culture are negative to date. 8). Prophylaxis: Pepcid, Dilaudid, Zofran, Percocet, Simethicone Draw Fire Operator Leilani has already set up Home Visiting Nurse through [facility] for 6 visits (they will then determine if more is needed afterwards) which Daughter Pura will be paying out of pocket ($150 to $200 a visit). When INR is therapeutic (2.5), then patient can be discharged. Transportation voucher will need to be completed by Nurse.
[2017-02-16] MEDS: HYDROmorphone 0.5 mg/0.5 ml ISec IVP PRN ×2 (11:40→21:55)
[2017-02-17 06:56] LABS: BASO # 0.1 K/uL (0.0-0.2); BASO % 0.6 % (0.0-2.0); EOS % 0.4 % (0.0-4.0); HEMATOCRIT 33.6 % (35.0-51.0); LYMPH % 7.9 % (20.0-40.0); MEAN CELL VOLUME 78.2 fL (80.0-94.0); MEAN CORPUSCULAR HEMOGLOBIN 26.3 pg (27.0-31.0); MEAN CORPUSCULAR HGB CONC 33.7 g/dL (33.0-37.0); MEAN PLATELET VOLUME 8.1 fL (7.2-11.7); MONO # 0.8 K/uL (0.0-0.8); MONO % 6.3 % (0.0-10.0); PLATELET COUNT 524 K/uL (130-400); RED CELL DISTRIBUTION WIDTH 16.5 % (11.5-14.5); WHITE BLOOD COUNT 13.2 K/uL (4.8-10.8)
[2017-02-17 07:01] LABS: INR 2.2
[2017-02-17 07:31] LABS: CHLORIDE 98 mmol/L (98-107)
[2017-02-17 07:32] LABS: POTASSIUM 3.8 mmol/L (3.6-5.2); SODIUM 133 mmol/L (132-148)
[2017-02-17 07:34] LABS: ALB/GLOB RATIO 0.9 (1.0-2.1); ALKALINE PHOSPHATASE 99 U/L (38-126); ALT/SGPT 163 U/L (21-72); AST/SGOT 104 U/L (17-59); BILIRUBIN,TOTAL 0.5 mg/dL (0.2-1.3); BLOOD UREA NITROGEN 26 mg/dL (9-20); CARBON DIOXIDE 24 mmol/L (22-30); GFR AFRICAN-AMERICAN > 60; GLUCOSE,RANDOM 91 mg/dL (75-110); TOTAL PROTEIN 6.6 g/dL (6.3-8.3)
[2017-02-17 07:35] LABS: CALCIUM 8.1 mg/dl (8.6-10.4); MAGNESIUM 2.3 mg/dL (1.6-2.3); PHOSPHOROUS 3.9 mg/dL (2.5-4.5)
--- NOTE | 2017-02-17 07:54 | CP.PCM.PN ---
<Eloisa Crowe - Last Filed: 02/17/17 16:18> Subjective - Date & Time of Evaluation Date of Evaluation: 02/17/17 Time of Evaluation: 07:51 - Subjective Subjective: Pt seen and examined at bedside. resting comfortably in bed with no new complaints at this time. Patient still having significant pain in both lower legs when palpated even with light touch. Patient had a run of V Tach (5 beats) this morning at 7:46 per nursing. Pt denies CP/SOB, AP/N/V/D/C, F/C. Objective - Vital Signs/Intake and Output Vital Signs (last 24 hours): Temp Pulse Resp BP Pulse Ox 98.4 F 87 20 152/52 H 97 02/17/17 04:00 02/17/17 04:00 02/17/17 04:00 02/17/17 04:00 02/17/17 04:00 Intake and Output: 02/17/17 02/17/17 06:59 18:59 Output Total 100 Balance -100 - Medications Medications: Current Medications Chlorthalidone (Hygroton) 25 mg PO DAILY [facility] Last Admin: 02/16/17 09:46 Dose: 25 mg Diltiazem HCl (Cardizem Cd) 360 mg PO DAILY [facility] Last Admin: 02/16/17 09:45 Dose: 360 mg Enoxaparin Sodium (Lovenox) 90 mg SC Q12 [facility] Last Admin: 02/16/17 21:56 Dose: 90 mg Famotidine (Pepcid) 20 mg PO DAILY [facility] Last Admin: 02/16/17 09:46 Dose: 20 mg Hydralazine HCl (Apresoline) 10 mg IVP Q6H PRN PRN Reason: Systolic Blood Pressure Hydromorphone HCl (Dilaudid) 0.5 mg IVP Q6H PRN PRN Reason: Pain, severe (8-10) Last Admin: 02/16/17 21:55 Dose: 0.5 mg Levetiracetam (Keppra) 500 mg PO BID [facility] Last Admin: 02/16/17 19:41 Dose: 500 mg Losartan Potassium (Cozaar) 100 mg PO DAILY [facility] Last Admin: 02/16/17 09:45 Dose: 100 mg Metoprolol Tartrate (Lopressor) 100 mg PO Q12 [facility] Last Admin: 02/16/17 21:55 Dose: 100 mg Ondansetron HCl (Zofran Inj) 4 mg IVP Q6 PRN PRN Reason: Nausea/Vomiting Warfarin Sodium (Coumadin) 7.5 mg PO 1800 EBONY Stop: 02/17/17 18:01 - Labs Labs: 02/17/17 06:48 02/17/17 06:48 PT 25.9 SECONDS (9.7-12.2) H 02/17/17 04:00 INR 2.2 02/17/17 04:00 APTT 36 SECONDS (21-34) H 02/16/17 08:19 - Constitutional Appears: Non-toxic, No Acute Distress - Head Exam Head Exam: NORMAL INSPECTION - Eye Exam Eye Exam: EOMI - ENT Exam ENT Exam: Mucous Membranes Moist - Respiratory Exam Respiratory Exam: Clear to Ausculation Bilateral, NORMAL BREATHING PATTERN - Cardiovascular Exam Cardiovascular Exam: Irregular Rhythm, +S1, +S2. absent: Tachycardia, Murmur - GI/Abdominal Exam GI & Abdominal Exam: Soft, Normal Bowel Sounds. absent: Distended, Tenderness - Extremities Exam Extremities Exam: Tenderness Additional comments: LEs cool to the touch. LEs exquisitely tender to slight touch b/l. No discoloration of toes noted. - Neurological Exam Neurological Exam: Alert, Awake - Psychiatric Exam Psychiatric exam: Normal Affect, Normal Mood - Skin Skin Exam: Dry, Intact, Normal Color Assessment and Plan - Assessment and Plan (Free Text) Assessment: 1). PAD: Coumadin 7.5 mg PO x 1 dose tonight, INR is 2.3, F/U INR 02/17/17. Goal INR is 2.5 [address] B [address] Brown. He is on therapeutic Lovenox. Daughter Pura [phone] is aware that further surgical intervention ( Femoral Bypass) was not an option as the distal arteries in the bilateral legs could not support this procedure and there is possibility of amputation in the future. The plan for now is to control patient's pain and get the INR therapeutic to at least 2.5 and then discharge patient to home. Instructed to decrease amount of green leafy veggies and vitamin K containing foods. 02/17: patient had a run of V Tach (5 beats) at 7:46 am. I spoke with Dr. Brown regarding this and he suggested replacing postassium. 20 of K dur was given and will be reassessed tomorrow. Repeat EKG was ordered. We will continue to monitor patient overnight. 2). Malignant HTN: Chlorthalidone, Cozaar, Hydralazine PRN, and Cardizem CD 360 mg 1x/day. Emt B Dr. Brown 02/12/17 and he has increased Metoprolol to [address] Angiogram of the Abdomen/Pelvis 02/04/17 did NOT show any evidence of Renal Artery Stenosis 3). Hx Atrial Fibrillation: Coumadin 7.5 mg PO x 1 dose tonight, INR is 2.3, F /U INR 02/13/17. I spoke with Emt B Dr. Brown and the goal INR is 2.5. He is on therapeutic Lovenox. Cardizem CD 360 mg PO 1x/day and Metoprolol 100 mg PO Q12H. His blood pressure is better under control. 4). Hx Seizure Disorder: as his LFTs are elevated, Neurology Consult was ordered with Dr. Onesimo Hogan to see if patient could be switched over to Keppra. Dr. Hogan has placed patient on Keppra 500 mg PO 2x/day 5). Hx Multiple CVAs: Crestor is being held considering the elevated LFTs and that his Lipid Profile is currently WNL. His Lipid profile and LFTs will need to be monitored by his PMD upon discharge 6). Elevated LFTs: could be secondary to the Dilantin and the Crestor. The Crestor is being held and the Dilantin switched over to Keppra. The LFTs will need to be monitored by his PMD upon discharge. LFT elevation is currently stable 7). Elevated WBC: there is NO fever and NO shift. Blood and Urine Culture are negative to date. 8). Prophylaxis: Pepcid, Dilaudid, Zofran, Percocet, Simethicone Product Introduction Manager Leilani has already set up Home Visiting Nurse through [facility] for 6 visits (they will then determine if more is needed afterwards) which Daughter Pura will be paying out of pocket ($150 to $200 a visit). When INR is therapeutic (2.5), then patient can be discharged. Patient will need to follow-up in the [facility] ([phone]) for INR check on to adjust Coumadin. Transportation voucher will need to be completed by Nurse. <Alexandra Skinner V - Last Filed: 02/17/17 22:53> Objective - Vital Signs/Intake and Output Vital Signs (last 24 hours): Temp Pulse Resp BP Pulse Ox 98.7 F 75 20 112/77 99 02/17/17 15:00 02/17/17 16:00 02/17/17 15:00 02/17/17 15:00 02/17/17 15:00 Intake and Output: 02/17/17 02/18/17 18:59 06:59 Intake Total 400 Balance 400 - Medications Medications: Current Medications Chlorthalidone (Hygroton) 25 mg PO DAILY [facility] Last Admin: 02/17/17 10:21 Dose: 25 mg Diltiazem HCl (Cardizem Cd) 360 mg PO DAILY [facility] Last Admin: 02/17/17 10:21 Dose: 360 mg Enoxaparin Sodium (Lovenox) 90 mg SC Q12 [facility] Last Admin: 02/17/17 21:42 Dose: 90 mg Famotidine (Pepcid) 20 mg PO DAILY [facility] Last Admin: 02/17/17 10:21 Dose: 20 mg Hydralazine HCl (Apresoline) 10 mg IVP Q6H PRN PRN Reason: Systolic Blood Pressure Hydromorphone HCl (Dilaudid) 0.5 mg IVP Q6H PRN PRN Reason: Pain, severe (8-10) Last Admin: 02/16/17 21:55 Dose: 0.5 mg Levetiracetam (Keppra) 500 mg PO BID [facility] Last Admin: 02/17/17 18:42 Dose: 500 mg Losartan Potassium (Cozaar) 100 mg PO DAILY [facility] Last Admin: 02/17/17 10:21 Dose: 100 mg Metoprolol Tartrate (Lopressor) 100 mg PO Q12 [facility] Last Admin: 02/17/17 21:41 Dose: 100 mg Ondansetron HCl (Zofran Inj) 4 mg IVP Q6 PRN PRN Reason: Nausea/Vomiting - Labs Labs: 02/17/17 06:48 02/17/17 06:48 PT 25.9 SECONDS (9.7-12.2) H 02/17/17 04:00 INR 2.2 02/17/17 04:00 APTT 36 SECONDS (21-34) H 02/16/17 08:19 Attending/Attestation - Attestation I have personally seen and examined this patient.: Yes I have fully participated in the care of the patient.: Yes I have reviewed all pertinent clinical information, including history, physical exam and plan: Yes Notes (Text): Patient seen, examined and case discussed with day-time resident this afternoon. Discussed with resident and patient's nurse Diana, patient noted to have 5 beats of V-tach on the monitor. Patient asymptomatic per nurse. This appeared comparable to similar instance over the weekend; reviewed with nurse at bedside. Resident spoke with top flavor attendant on the case, will optimize K+ (4.0 range). Patient is awaiting therapeutic INR: 2.2; will given Coumadin 7.5mg PO tonight. Patient seen during rounds, at times forgetful, requesting for medication to sleep and advised it is too early (2pm) to get sleep medication and given his LFTs, will not give sleep aid. Hepatitis panel is negative. Abdominal US ordered r/o other causes to liver. Assessment/Plan 1). PAD: Coumadin 7.5 mg PO x 1 dose tonight, INR is 2.2, F/U INR: 2.[address] Brown on the case help appreciated Vascular surgery Dr Kaur on the case help appreciated and the goal INR is 2.5-3.5. He is on therapeutic Lovenox while being bridged. My colleague Dr. Milton Vines had extensive conversation with Daughter Pura on 02/12/17. Both Dr. Brown and Dr. Kaur along with him explained that at this point the best option was to control the patient's pain as further surgical intervention (Femoral Bypass) was not an option as the distal arteries in the bilateral legs could not support this procedure. The subject of the possibility of amputation in the future was also discussed. The plan for now is to control patient's pain and get the INR therapeutic to at least 2.5 and then discharge patient to home. Pura expressed understanding. 2). Malignant HTN: Chlorthalidone 25mg PO daily, Cozaar 100mg PO daily, Hydralazine PRN, Cardizem CD 360 mg 1x/day, Metoprolol 100mg PO Q bid. Emt B Dr. Brown 02/12/17 and he has increased Metoprolol to [address] Angiogram of the Abdomen/Pelvis 02/04/17 did NOT show any evidence of Renal Artery Stenosis 3). Hx Atrial Fibrillation: Coumadin 7.5 mg PO x 1 dose tonight, INR is 2.2, F /U INR 02/18/17. I spoke with Emt B Dr. Brown and the goal INR is 2.5. He is on therapeutic Lovenox. Cardizem CD 360 mg PO 1x/day and Metoprolol 100 mg PO Q12H. His blood pressure is better under control. 4). Hx Seizure Disorder: as his LFTs are elevated, Neurology Consult was ordered with Dr. Onesimo Hogan to see if patient could be switched over to Keppra. Dr. Hogan has placed patient on Keppra 500 mg PO 2x/day 5). Hx Multiple CVAs: Crestor is being held considering the elevated LFTs and that his Lipid Profile is currently WNL. His Lipid profile and LFTs will need to be monitored by his PMD upon discharge 6). Elevated LFTs: could be secondary to the Dilantin and the Crestor. The Crestor is being held and the Dilantin switched over to Keppra. The LFTs will need to be monitored by his PMD upon discharge. LFT elevation is currently stable. Ordered for hepatitis panel which is negative. Ordered for Abdominal US for tomorrow. 7). Elevated WBC: there is NO fever and NO shift. Blood and Urine Culture are negative to date and final. White count is mildly elevated. Afebrile. 8). Prophylaxis: Pepcid, Dilaudid, Zofran, Lovenox bridge to Coumadin Disposition: * Product Introduction Manager Leilani has already set up Home Visiting Nurse through [facility] for 6 visits (they will then determine if more is needed afterwards) which Daughter Pura will be paying out of pocket ($150 to $200 a visit). * Pending therapeutic INR prior to discharge. Patient will need to follow-up in the [facility] ([phone]) for INR check on to adjust Coumadin. * When INR is therapeutic (2.5), then patient can be discharged. Transportation voucher will need to be completed by Nurse.
[2017-02-17 09:07] LABS: BASOPHIL 1 % (0-2); EOSINOPHIL 1 % (0-4); NEUTROPHIL 85 % (50-75); TOTAL CELLS COUNTED 100
[2017-02-17] MEDS: diltiaZEM 180 mg/24 Hours CD Cap PO SCH (10:21)
[2017-02-17] MEDS: Enoxaparin 100 mg Syringe SC SCH ×2 (12:20→21:42)
[2017-02-17] MEDS ORDERED: Potassium Chloride 20 mEq ER Tab PO ONE (16:00)
--- NOTE | 2017-02-18 07:13 | CP.PCM.PN ---
Subjective - Date & Time of Evaluation Date of Evaluation: 02/18/17 Time of Evaluation: 07:08 Objective - Vital Signs/Intake and Output Vital Signs (last 24 hours): Temp Pulse Resp BP Pulse Ox 98.2 F 83 20 131/71 98 02/18/17 04:00 02/18/17 04:00 02/18/17 04:00 02/18/17 04:00 02/18/17 04:00 Intake and Output: 02/18/17 02/18/17 06:59 18:59 Output Total 2150 Balance -2150 - Medications Medications: Current Medications Chlorthalidone (Hygroton) 25 mg PO DAILY [facility] Last Admin: 02/17/17 10:21 Dose: 25 mg Diltiazem HCl (Cardizem Cd) 360 mg PO DAILY [facility] Last Admin: 02/17/17 10:21 Dose: 360 mg Enoxaparin Sodium (Lovenox) 90 mg SC Q12 [facility] Last Admin: 02/17/17 21:42 Dose: 90 mg Famotidine (Pepcid) 20 mg PO DAILY [facility] Last Admin: 02/17/17 10:21 Dose: 20 mg Hydralazine HCl (Apresoline) 10 mg IVP Q6H PRN PRN Reason: Systolic Blood Pressure Hydromorphone HCl (Dilaudid) 0.5 mg IVP Q6H PRN PRN Reason: Pain, severe (8-10) Last Admin: 02/16/17 21:55 Dose: 0.5 mg Levetiracetam (Keppra) 500 mg PO BID [facility] Last Admin: 02/17/17 18:42 Dose: 500 mg Losartan Potassium (Cozaar) 100 mg PO DAILY [facility] Last Admin: 02/17/17 10:21 Dose: 100 mg Metoprolol Tartrate (Lopressor) 100 mg PO Q12 [facility] Last Admin: 02/17/17 21:41 Dose: 100 mg Ondansetron HCl (Zofran Inj) 4 mg IVP Q6 PRN PRN Reason: Nausea/Vomiting - Labs Labs: 02/17/17 06:48 02/17/17 06:48 PT 25.9 SECONDS (9.7-12.2) H 02/17/17 04:00 INR 2.2 02/17/17 04:00 APTT 36 SECONDS (21-34) H 02/16/17 08:19 Assessment and Plan - Assessment and Plan (Free Text) Assessment: 1). PAD: Coumadin 7.5 mg PO x 1 dose tonight, INR is 2.3, F/U INR 02/17/17. Goal INR is 2.[address] Brown. He is on therapeutic Lovenox. Daughter Pura [phone] is aware that further surgical intervention ( Femoral Bypass) was not an option as the distal arteries in the bilateral legs could not support this procedure and there is possibility of amputation in the future. The plan for now is to control patient's pain and get the INR therapeutic to at least 2.5 and then discharge patient to home. Instructed to decrease amount of green leafy veggies and vitamin K containing foods. 2). Malignant HTN: Chlorthalidone, Cozaar, Hydralazine PRN, and Cardizem CD 360 mg 1x/day. Pallet Sorter Dr. Brown 02/12/17 and he has increased Metoprolol to [address] Angiogram of the Abdomen/Pelvis 02/04/17 did NOT show any evidence of Renal Artery Stenosis 3). Hx Atrial Fibrillation: Coumadin 7.5 mg PO x 1 dose tonight, INR is 2.3, F /U INR 02/13/17. I spoke with Pallet Sorter Dr. Brown and the goal INR is 2.5. He is on therapeutic Lovenox. Cardizem CD 360 mg PO 1x/day and Metoprolol 100 mg PO Q12H. His blood pressure is better under control. 02/17: patient had a run of V Tach (5 beats) at 7:46 am. I spoke with Dr. Brown regarding this and he suggested replacing postassium. 20 of K dur was given and will be reassessed tomorrow. Repeat EKG was ordered. We will continue to monitor patient overnight. 02/18: 4). Hx Seizure Disorder: as his LFTs are elevated, Neurology Consult was ordered with Dr. Onesimo Hogan to see if patient could be switched over to Keppra. Dr. Hogan has placed patient on Keppra 500 mg PO 2x/day 5). Hx Multiple CVAs: Crestor is being held considering the elevated LFTs and that his Lipid Profile is currently WNL. His Lipid profile and LFTs will need to be monitored by his PMD upon discharge 6). Elevated LFTs: could be secondary to the Dilantin and the Crestor. The Crestor is being held and the Dilantin switched over to Keppra. The LFTs will need to be monitored by his PMD upon discharge. LFT elevation is currently stable 02/17: Hep panel negative 02/18: Abd US: 7). Elevated WBC: there is NO fever and NO shift. Blood and Urine Culture are negative to date. 8). Prophylaxis: Pepcid, Dilaudid, Zofran, Percocet, Simethicone Organic Gardening Teacher Leilani has already set up Home Visiting Nurse through [facility] for 6 visits (they will then determine if more is needed afterwards) which Daughter Pura will be paying out of pocket ($150 to $200 a visit). When INR is therapeutic (2.5), then patient can be discharged. Patient will need to follow-up in the [facility] ([phone]) for INR check on to adjust Coumadin. Transportation voucher will need to be completed by Nurse.
[2017-02-18 07:34] LABS: BASO # 0.1 K/uL (0.0-0.2); BASO % 0.9 % (0.0-2.0); EOS % 0.2 % (0.0-4.0); HEMATOCRIT 34.8 % (35.0-51.0); LYMPH # 1.1 K/uL (1.0-4.3); LYMPH % 9.7 % (20.0-40.0); MEAN CORPUSCULAR HEMOGLOBIN 26.6 pg (27.0-31.0); MEAN CORPUSCULAR HGB CONC 34.1 g/dL (33.0-37.0); MEAN PLATELET VOLUME 8.1 fL (7.2-11.7); MONO # 0.8 K/uL (0.0-0.8); MONO % 6.9 % (0.0-10.0); NRBC % 0.1 % (0.0-2.0); PLATELET COUNT 526 K/uL (130-400); RED CELL DISTRIBUTION WIDTH 16.3 % (11.5-14.5); WHITE BLOOD COUNT 11.7 K/uL (4.8-10.8)
[2017-02-18 08:24] LABS: CHLORIDE 101 mmol/L (98-107); POTASSIUM 4.2 mmol/L (3.6-5.2); SODIUM 134 mmol/L (132-148)
[2017-02-18 08:26] LABS: ALB/GLOB RATIO 0.9 (1.0-2.1); ALKALINE PHOSPHATASE 128 U/L (38-126); AST/SGOT 92 U/L (17-59); BILIRUBIN,TOTAL 0.5 mg/dL (0.2-1.3); CARBON DIOXIDE 23 mmol/L (22-30); GFR AFRICAN-AMERICAN > 60; TOTAL PROTEIN 6.5 g/dL (6.3-8.3)
[2017-02-18 08:27] LABS: ALT/SGPT 142 U/L (21-72); BLOOD UREA NITROGEN 23 mg/dL (9-20); CALCIUM 8.4 mg/dl (8.6-10.4); GLUCOSE,RANDOM 98 mg/dL (75-110); MAGNESIUM 2.2 mg/dL (1.6-2.3); PHOSPHOROUS 3.5 mg/dL (2.5-4.5)
[2017-02-18 08:58] LABS: NEUTROPHIL 82 % (50-75); TOTAL CELLS COUNTED 100
[2017-02-18 08:59] LABS: LARGE PLATELETS PRESENT
[2017-02-18 10:31] LABS: INR 2.4
--- NOTE | 2017-02-18 10:36 | US ---
HISTORY: elevated LFTs COMPARISON: Abdomen and pelvis CT exam 02/04/2017. TECHNIQUE: Sonographic evaluation of the abdomen. FINDINGS: LIVER: Measures 15.8 cm. There is a small granuloma identified in the right lobe liver seen in prior CT angio of the abdomen pelvis from 02/04/2017, measuring 1.3 cm. Remainder of the hepatic parenchyma is otherwise unremarkable. No apparent intrahepatic bile duct dilatation. GALLBLADDER: Small echogenic foci are seen at the anterior wall gallbladder with dirty shadowing posteriorly and somewhat triangular fashion suggestive of adenomyosis. COMMON BILE DUCT: Measures 3.9 mm. No stones. No dilatation. PANCREAS: Unremarkable as visualized. No mass. No ductal dilatation. RIGHT KIDNEY: Measures 10.4cm. Poor corticomedullary differentiation. No calculus, mass, or hydronephrosis. LEFT KIDNEY: Measures 10.3cm. Poor corticomedullary differentiation. No calculus, mass, or hydronephrosis. SPLEEN: Normal in size and contour. Small hypoechoic focus is appreciated at the central spleen which is nonspecific but could reflect a benign hemangioma. Other etiologies are possible. Consider repeat abdomen CT with oral and intravenous contrast. AORTA: No aneurysmal dilatation. IVC: Unremarkable. OTHER FINDINGS: None. IMPRESSION: 1. Likely adenomyosis at the gallbladder. 2. No evidence to suggest biliary tree dilatation. 3. Hepatic granuloma right lobe liver. 4. Potential intrinsic medical renal disease given poor corticomedullary differentiation of both kidneys parenchyma. 5. Nonspecific small hypoechoic focus at the spleen measuring 3.8 x 3.0 cm potentially reflecting a benign hemangioma though other etiologies are possible. Follow-up CT with contrast is advised for better characterization.
[2017-02-18] MEDS: Enoxaparin 100 mg Syringe SC SCH (10:50)
[2017-02-18] MEDS: HYDROmorphone 0.5 mg/0.5 ml ISec IVP PRN (10:50)
[2017-02-18] MEDS: diltiaZEM 180 mg/24 Hours CD Cap PO SCH (10:50)
--- NOTE | 2017-02-18 13:22 | CARD ---
APPROVED REPORT EKG Measurement Heart [id number] <Conclusion> Atrial fibrillation with premature ventricular or aberrantly conducted complexes Right bundle branch block Left anterior fascicular block Bifascicular block Moderate voltage criteria for LVH, may be normal variant Cannot rule out Inferior infarct (masked by fascicular block?), age undetermined T wave abnormality, consider lateral ischemia Abnormal ECG
--- NOTE | 2017-02-18 19:04 | CP.PCM.PN ---
<Eloisa Crowe - Last Filed: 02/18/17 18:59> Subjective - Date & Time of Evaluation Date of Evaluation: 02/18/17 Time of Evaluation: 19:00 - Subjective Subjective: Pt seen and examined at bedside. resting comfortably in bed with no new complaints at this time. Patient still having significant pain in both lower legs when palpated even with light touch. Pt denies CP/SOB, AP/N/V/D/C, F/C. Objective - Vital Signs/Intake and Output Vital Signs (last 24 hours): Temp Pulse Resp BP Pulse Ox 98.5 F 82 20 144/63 99 02/18/17 15:00 02/18/17 16:30 02/18/17 15:00 02/18/17 15:00 02/18/17 15:00 Intake and Output: 02/18/17 02/19/17 18:59 06:59 Intake Total 400 Balance 400 - Medications Medications: Current Medications Chlorthalidone (Hygroton) 25 mg PO DAILY [facility] Last Admin: 02/18/17 10:50 Dose: 25 mg Diltiazem HCl (Cardizem Cd) 360 mg PO DAILY [facility] Last Admin: 02/18/17 10:50 Dose: 360 mg Famotidine (Pepcid) 20 mg PO DAILY [facility] Last Admin: 02/18/17 10:50 Dose: 20 mg Hydralazine HCl (Apresoline) 10 mg IVP Q6H PRN PRN Reason: Systolic Blood Pressure Hydromorphone HCl (Dilaudid) 0.5 mg IVP Q6H PRN PRN Reason: Pain, severe (8-10) Last Admin: 02/18/17 10:50 Dose: 0.5 mg Levetiracetam (Keppra) 500 mg PO BID [facility] Last Admin: 02/18/17 18:45 Dose: 500 mg Losartan Potassium (Cozaar) 100 mg PO DAILY [facility] Last Admin: 02/18/17 10:50 Dose: 100 mg Metoprolol Tartrate (Lopressor) 100 mg PO Q12 [facility] Last Admin: 02/18/17 10:50 Dose: 100 mg Ondansetron HCl (Zofran Inj) 4 mg IVP Q6 PRN PRN Reason: Nausea/Vomiting - Labs Labs: 02/18/17 07:26 02/18/17 07:26 PT 27.9 SECONDS (9.7-12.2) H 02/18/17 10:06 INR 2.4 02/18/17 10:06 APTT 36 SECONDS (21-34) H 02/16/17 08:19 - Constitutional Appears: Non-toxic, No Acute Distress - Head Exam Head Exam: NORMAL INSPECTION - Eye Exam Eye Exam: EOMI - ENT Exam ENT Exam: Mucous Membranes Moist - Respiratory Exam Respiratory Exam: Clear to Ausculation Bilateral, NORMAL BREATHING PATTERN - Cardiovascular Exam Cardiovascular Exam: Irregular Rhythm, +S1, +S2. absent: Tachycardia - GI/Abdominal Exam GI & Abdominal Exam: Soft, Normal Bowel Sounds. absent: Tenderness - Extremities Exam Extremities Exam: Tenderness (B/L LEs) Additional comments: 4cm x 3mc blister of left lower extremity on the wallace - Neurological Exam Neurological Exam: Alert, Awake - Psychiatric Exam Psychiatric exam: Normal Affect, Normal Mood - Skin Skin Exam: Dry, Intact, Warm Assessment and Plan - Assessment and Plan (Free Text) Assessment: 1). PAD: Coumadin 7.5 mg PO x 1 dose tonight, INR is 2.3, F/U INR 02/17/17. Goal INR is 2.5 as per Weapons Electrical Engineering Officer Dr. Brown. He is on therapeutic Lovenox. Daughter Pura [phone] is aware that further surgical intervention ( Femoral Bypass) was not an option as the distal arteries in the bilateral legs could not support this procedure and there is possibility of amputation in the future. The plan for now is to control patient's pain and get the INR therapeutic to at least 2.5 and then discharge patient to home. Instructed to decrease amount of green leafy veggies and vitamin K containing foods. 02/17: patient had a run of V Tach (5 beats) at 7:46 am. I spoke with Dr. Brown regarding this and he suggested replacing postassium. 20 of K dur was given and will be reassessed tomorrow. Repeat EKG was ordered. We will continue to monitor patient overnight. 2). Malignant HTN: Chlorthalidone, Cozaar, Hydralazine PRN, and Cardizem CD 360 mg 1x/day. Weapons Electrical Engineering Officer Dr. Brown 02/12/17 and he has increased Metoprolol to [address] Angiogram of the Abdomen/Pelvis 02/04/17 did NOT show any evidence of Renal Artery Stenosis 3). Hx Atrial Fibrillation: Coumadin 7.5 mg PO x 1 dose tonight, INR is 2.3, F /U INR 02/13/17. I spoke with Weapons Electrical Engineering Officer Dr. Brown and the goal INR is 2.5. He is on therapeutic Lovenox. Cardizem CD 360 mg PO 1x/day and Metoprolol 100 mg PO Q12H. His blood pressure is better under control. 4). Hx Seizure Disorder: as his LFTs are elevated, Neurology Consult was ordered with Dr. Onesimo Hogan to see if patient could be switched over to Keppra. Dr. Hogan has placed patient on Keppra 500 mg PO 2x/day 5). Hx Multiple CVAs: Crestor is being held considering the elevated LFTs and that his Lipid Profile is currently WNL. His Lipid profile and LFTs will need to be monitored by his PMD upon discharge 6). Elevated LFTs: could be secondary to the Dilantin and the Crestor. The Crestor is being held and the Dilantin switched over to Keppra. The LFTs will need to be monitored by his PMD upon discharge. LFT elevation is currently stable 7). Elevated WBC: there is NO fever and NO shift. Blood and Urine Culture are negative to date. 8). Prophylaxis: Pepcid, Dilaudid, Zofran, Percocet, Simethicone International Tax Manager Leilani has already set up Home Visiting Nurse through [facility] for 6 visits (they will then determine if more is needed afterwards) which Daughter Pura will be paying out of pocket ($150 to $200 a visit). When INR is therapeutic (2.5), then patient can be discharged. Patient will need to follow-up in the [facility] ([phone]) for INR check on to adjust Coumadin. Transportation voucher will need to be completed by Nurse. Disposition: Patient ready for discharge, however patient's family did not feel comfortable with the patient leaving 2/2 his leg pain. Paliative care consult arranged for Goals of care discussion. Patient will likely be discharged tomorrow (02/19). <Alexandra Skinner V - Last Filed: 02/18/17 22:23> Objective - Vital Signs/Intake and Output Vital Signs (last 24 hours): Temp Pulse Resp BP Pulse Ox 98.5 F 82 20 144/63 99 02/18/17 15:00 02/18/17 16:30 02/18/17 15:00 02/18/17 15:00 02/18/17 15:00 Intake and Output: 02/18/17 02/19/17 18:59 06:59 Intake Total 400 Balance 400 - Medications Medications: Current Medications Chlorthalidone (Hygroton) 25 mg PO DAILY [facility] Last Admin: 02/18/17 10:50 Dose: 25 mg Diltiazem HCl (Cardizem Cd) 360 mg PO DAILY [facility] Last Admin: 02/18/17 10:50 Dose: 360 mg Famotidine (Pepcid) 20 mg PO DAILY [facility] Last Admin: 02/18/17 10:50 Dose: 20 mg Hydralazine HCl (Apresoline) 10 mg IVP Q6H PRN PRN Reason: Systolic Blood Pressure Hydromorphone HCl (Dilaudid) 0.5 mg IVP Q6H PRN PRN Reason: Pain, severe (8-10) Last Admin: 02/18/17 10:50 Dose: 0.5 mg Levetiracetam (Keppra) 500 mg PO BID [facility] Last Admin: 02/18/17 18:45 Dose: 500 mg Losartan Potassium (Cozaar) 100 mg PO DAILY [facility] Last Admin: 02/18/17 10:50 Dose: 100 mg Metoprolol Tartrate (Lopressor) 100 mg PO Q12 [facility] Last Admin: 02/18/17 21:12 Dose: 100 mg Ondansetron HCl (Zofran Inj) 4 mg IVP Q6 PRN PRN Reason: Nausea/Vomiting - Labs Labs: 02/18/17 07:26 02/18/17 07:26 PT 27.9 SECONDS (9.7-12.2) H 02/18/17 10:06 INR 2.4 02/18/17 10:06 APTT 36 SECONDS (21-34) H 02/16/17 08:19 Attending/Attestation - Attestation I have personally seen and examined this patient.: Yes I have fully participated in the care of the patient.: Yes I have reviewed all pertinent clinical information, including history, physical exam and plan: Yes Notes (Text): Patient seen, examined and case discussed with day-time resident this morning with at bedside. Patient denies acute complaints. Patient has unopened blister over left lower extremity, mild ecchymoses in light of lovenox to Coumadin bridge to anticoagulate given atrial fibrillation makes him a high risk for further stroke. Patient was medically stable for discharge today. The resident had setup patient 's outpatient followup INR check and clinic appointment for the [facility] for discharge planning. However, later in the afternoon, discussed with nursing staff, patient's is shouting at nursing staff, yelling on the phone, yelling at myself that her cannot go home because he cannot walk, he does not have insurance, he lives on the third floor, and she feels afraid for him to go home. I spoke with patient's daughter Pura who is Armenian speaking over the phone, but she too had echoed her mom's fears while I had attempted to over go over patient's medical problems and how they have stabilized and controlled. I reviewed physical therapy notes who is seeing the patient and working with him in light of pain in their therapy sessions. Prior to this conversation today, patient's daughter had spoken with case management and understood will need outpatient physical therapy and out of pocket expenses for visiting home nurse. Patient has applied for red care. Case management willing to see if they can get authroization for ambuellete to help patient to their 3rd floor apartment when discharged from the hospital. Patient's daughter was also explained previously regarding patient's leg condition on 02/12/17 including possibility of amputation and focus pain control by both my colleague and vascular surgery. Discussed with case management, nursing rubber tire and tubes supervisor, and patient's primary care nurse, Malu, will consult palliative care regarding goals of care in light of patient peripheral vascular disease. Medically patient/patient's daughter has been explained to the extent of severity but I do not think family understand what that means regarding the future for this patient. In terms of patient's medications we have to attempted to keep his medications affordable upon discharge. Coumadin the best option and most affordable for the patient. I even communicate with the vascular surgeon to explain and the family can call him any time. Patient is to follow-up with the clinic, will need routine INR checks to optimize his Coumadin levels, and f/u cardiology and vascular surgery. Assessment/Plan 1). PAD: Coumadin 7.5 mg PO x 1 dose tonight, INR is 2.4, Weapons Electrical Engineering Officer Dr. Brown on the case help appreciated Vascular surgery Dr Kaur on the case help appreciated and the goal INR is 2.5-3.5. D/C therapeutic Lovenox My colleague Dr. Milton Vines had extensive conversation with Daughter Pura on 02/12/17. Both Dr. Brown and Dr. Kaur along with him explained that at this point the best option was to control the patient's pain as further surgical intervention (Femoral Bypass) was not an option as the distal arteries in the bilateral legs could not support this procedure. The subject of the possibility of amputation in the future was also discussed. The plan for now is to control patient's pain and get the INR therapeutic to at least 2.5 and then discharge patient to home. Pura expressed understanding. 2). Malignant HTN: Chlorthalidone 25mg PO daily, Cozaar 100mg PO daily, Hydralazine PRN, Cardizem CD 360 mg 1x/day, Metoprolol 100mg PO Q bid. Weapons Electrical Engineering Officer Dr. Brown 02/12/17 and he has increased Metoprolol to [address] Angiogram of the Abdomen/Pelvis 02/04/17 did NOT show any evidence of Renal Artery Stenosis 3). Hx Atrial Fibrillation: Coumadin 7.5 mg PO x 1 dose tonight, INR is 2.2, F /U INR 02/18/17. I spoke with Weapons Electrical Engineering Officer Dr. Brown and the goal INR is 2.5. He is on therapeutic Lovenox. Cardizem CD 360 mg PO 1x/day and Metoprolol 100 mg PO Q12H. His blood pressure is better under control. 4). Hx Seizure Disorder: as his LFTs are elevated but downtrending, Neurology Consult was ordered with Dr. Onesimo Hogan to see if patient could be switched over to Keppra. Dr. Hogan has placed patient on Keppra 500 mg PO 2x/day 5). Hx Multiple CVAs: Crestor is being held considering the elevated LFTs and that his Lipid Profile is currently WNL. His Lipid profile and LFTs will need to be monitored by his PMD upon discharge 6). Elevated LFTs: could be secondary to the Dilantin and the Crestor. The Crestor is being held and the Dilantin switched over to Keppra. The LFTs will need to be monitored by his PMD upon discharge. LFT elevation is currently stable. Ordered for hepatitis panel which is negative. Abdominal US: shows adenomyosis of gallblader and other findings; will need outpatient follow-up with GI. 7). Elevated WBC: there is NO fever and NO shift. Blood and Urine Culture are negative to date and final. White count is mildly elevated. Afebrile. 8). Prophylaxis: Pepcid, Dilaudid, Zofran, Coumadin Disposition: * International Tax Manager Leilani has already set up Home Visiting Nurse (they will then determine if more is needed afterwards) which Daughter Pura will be paying out of pocket ($150 to $200 a visit) prior to events noted above. This was clearly explained to the daughter prior to events noted above. * Therapeutic INR today, will maintain for tomorrow. Patient will need to follow -up in the [facility] ([phone]) for INR check to adjust the Coumadin and f/u with physician-->resident secured appointments for the patient to accomplish thsi. * The INR was therapeutic; the patient could have discharged which was today; however patient's family expressing fear with what will they do with the patient when he gets home. * We have tried the best of our ability to help this family given lack of insurance status in terms of visiting nursing options, outpatient physical therapy, and attempting to keep his medications affordable and family made aware of out patient/out of pocket costs during hospitalization. * Will consult palliative care to do a goals of care by the family. They have been explained that the severity of peripheral vascular disease and understand in the future amputation is an option. They also understand will need pain control. Patient is a high cardiac risk and would need to be followed by carry out clerk and shelf stocker for further workup as outpatient.
[2017-02-19 07:31] LABS: INR 2.8
[2017-02-19 07:35] LABS: BASO % 0.4 % (0.0-2.0); EOS % 0.1 % (0.0-4.0); LYMPH # 0.7 K/uL (1.0-4.3); LYMPH % 6.8 % (20.0-40.0); MEAN CELL VOLUME 78.2 fL (80.0-94.0); MEAN CORPUSCULAR HGB CONC 34.5 g/dL (33.0-37.0); MEAN PLATELET VOLUME 8.3 fL (7.2-11.7); MONO # 0.6 K/uL (0.0-0.8); MONO % 5.1 % (0.0-10.0); PLATELET COUNT 502 K/uL (130-400); RED CELL DISTRIBUTION WIDTH 15.6 % (11.5-14.5); WHITE BLOOD COUNT 10.9 K/uL (4.8-10.8)
[2017-02-19 07:38] LABS: CHLORIDE 99 mmol/L (98-107); POTASSIUM 3.8 mmol/L (3.6-5.2); SODIUM 131 mmol/L (132-148)
[2017-02-19 07:40] LABS: AST/SGOT 78 U/L (17-59); BILIRUBIN,TOTAL 0.5 mg/dL (0.2-1.3); CARBON DIOXIDE 22 mmol/L (22-30); GFR AFRICAN-AMERICAN > 60
[2017-02-19 07:41] LABS: ALB/GLOB RATIO 0.9 (1.0-2.1); ALKALINE PHOSPHATASE 103 U/L (38-126); ALT/SGPT 131 U/L (21-72); BLOOD UREA NITROGEN 25 mg/dL (9-20); GLUCOSE,RANDOM 135 mg/dL (75-110); TOTAL PROTEIN 6.8 g/dL (6.3-8.3)
[2017-02-19 07:42] LABS: CALCIUM 8.5 mg/dl (8.6-10.4); MAGNESIUM 2.1 mg/dL (1.6-2.3); PHOSPHOROUS 3.7 mg/dL (2.5-4.5)
[2017-02-19 09:09] LABS: BASOPHIL 1 % (0-2); NEUTROPHIL 86 % (50-75); TOTAL CELLS COUNTED 100
[2017-02-19] MEDS: HYDROmorphone 0.5 mg/0.5 ml ISec IVP PRN (10:16)
[2017-02-19] MEDS: diltiaZEM 180 mg/24 Hours CD Cap PO SCH (10:16)
--- NOTE | 2017-02-19 13:18 | CP.PCM.PN ---
Subjective - Date & Time of Evaluation Date of Evaluation: 02/19/17 Time of Evaluation: 13:13 - Subjective Subjective: still c/o b/l LE extremity discomfort INR therapeutic telemetry tachycardic with NSVT noted Objective - Vital Signs/Intake and Output Vital Signs (last 24 hours): Temp Pulse Resp BP Pulse Ox 97.3 F L 70 20 117/71 96 02/19/17 08:59 02/19/17 12:00 02/19/17 08:59 02/19/17 09:59 02/19/17 08:59 - Medications Medications: Current Medications Chlorthalidone (Hygroton) 25 mg PO DAILY [facility] Last Admin: 02/19/17 10:16 Dose: 25 mg Diltiazem HCl (Cardizem Cd) 360 mg PO DAILY [facility] Last Admin: 02/19/17 10:16 Dose: 360 mg Famotidine (Pepcid) 20 mg PO DAILY [facility] Last Admin: 02/19/17 10:16 Dose: 20 mg Hydralazine HCl (Apresoline) 10 mg IVP Q6H PRN PRN Reason: Systolic Blood Pressure Levetiracetam (Keppra) 500 mg PO BID [facility] Last Admin: 02/19/17 10:16 Dose: 500 mg Losartan Potassium (Cozaar) 100 mg PO DAILY [facility] Last Admin: 02/19/17 10:16 Dose: 100 mg Metoprolol Tartrate (Lopressor) 100 mg PO Q12 [facility] Last Admin: 02/19/17 10:16 Dose: 100 mg Ondansetron HCl (Zofran Inj) 4 mg IVP Q6 PRN PRN Reason: Nausea/Vomiting Oxycodone HCl (Oxycodone Immediate Release Tab) 5 mg PO Q6 PRN PRN Reason: Pain, severe (8-10) Warfarin Sodium (Coumadin) 5 mg PO 1800 [facility] Stop: 02/19/17 18:01 - Labs Labs: 02/19/17 07:18 02/19/17 07:18 PT 33.2 SECONDS (9.7-12.2) H* D 02/19/17 07:18 INR 2.8 02/19/17 07:18 APTT 36 SECONDS (21-34) H 02/16/17 08:19 - Constitutional Appears: Well, Non-toxic, In Acute Distress - Head Exam Head Exam: ATRAUMATIC, NORMAL INSPECTION, NORMOCEPHALIC - Eye Exam Eye Exam: EOMI, Normal appearance, PERRL Pupil Exam: NORMAL ACCOMODATION, PERRL - ENT Exam ENT Exam: Mucous Membranes Moist, Normal Exam - Neck Exam Neck Exam: Full ROM, Normal Inspection. absent: Lymphadenopathy - Respiratory Exam Respiratory Exam: Clear to Ausculation Bilateral, NORMAL BREATHING PATTERN - Cardiovascular Exam Cardiovascular Exam: Irregular Rhythm, +S1, +S2, Murmur - GI/Abdominal Exam GI & Abdominal Exam: Soft, Normal Bowel Sounds. absent: Tenderness - Extremities Exam Extremities Exam: Full ROM, Normal Capillary Refill, Normal Inspection. absent : Joint Swelling, Pedal Edema - Back Exam Back Exam: NORMAL INSPECTION - Neurological Exam Neurological Exam: Alert, Awake, CN II-XII Intact, Oriented x3 - Psychiatric Exam Psychiatric exam: Normal Affect, Normal Mood - Skin Skin Exam: Dry, Intact, Normal Color, Warm Assessment and Plan (1) Atrial fibrillation Assessment & Plan: HR variable on BB and CCB add amiodarone 400mg po bid x 7 days and then switch to 200mg po bid cont OAC INR therapeutic Status: Acute (2) HTN (hypertension), malignant Assessment & Plan: BP stable cont current meds Status: Acute (3) Critical lower limb ischemia Assessment & Plan: on OAC poor distal flow vascular sx ( ) following Status: Acute
--- NOTE | 2017-02-19 13:19 | CP.PCM.CON ---
History of Present Illness - History of Present Illness History of Present Illness: palliative consult Requested by Susanne CORADO Reason; Goals of care discussion Patient is a71 yo male admitted from home with B/L LEs pain X 5 days. Patient has not tried any pain meds at home. The arterial Doppler of LEs was significant for right and left femoral artery occlusion. Patient underwent Thrombectomy with angiogram by Doctor Josesito Barker. patient continued to have pain of LEs managed by Dilaudid IV. Patient's condition improved to the best possible level given all complex medical Hx and duration of symptoms. Home discharge was planned for yesterday when patient's daughter and radha concern about lack of support at home and insisted on discharge to [facility]. lack of insurance was discussed with patient's daughter and since day 1 of admission, according to case management report. Daughter and agreed to pay out of pocket all needed expenses for home care. Now, the daughter and changed their minds and are trying to get medical coverage for this patient prior to discharge. According to the daughter the Medicaid and Medicare applications were submitted on 02/05/2017. I was called to discuss goals of care with family and direct them during the discharge process. PMH: seizures, malignant HTN, A Fib, multiple CVA, severe PVD, Soc. Hx: , lives at home, unemployed, has been in [place] 5 years, it is not clear if documented Fam > Hx: father from CVA Review of Systems - Constitutional Constitutional: Malaise, Weakness - EENT Eyes: Change in Vision Ears: absent: As Per HPI, Decreased Hearing, Ear Discharge, Ear Pain, Tinnitus, Abnormal Hearing, Disequilibrium, Dizziness, Other Nose/Mouth/Throat: absent: As Per HPI, Epistaxis, Nasal Congestion, Nasal Discharge, Nasal Obstruction, Nasal Trauma, Nose Pain, Post Nasal Drip, Sinus Pain, Sinus Pressure, Bleeding Gums, Change in Voice, Dental Pain, Dry Mouth, Dysphagia, Halitosis, Hoarsness, Lip Swelling, Mouth Lesions, Mouth Pain, Odynophagia, Sore Throat, Throat Swelling, Tongue Swelling, Facial Pain, Neck Pain, Neck Mass, Other - Cardiovascular Cardiovascular: Irregular Heart Rhythm, Leg Edema - Respiratory Respiratory: absent: As Per HPI, Cough, Dyspnea, Hemoptysis, Dyspnea on Exertion , Wheezing, Snoring, Stridor, Pain on Inspiration, Chest Congestion, Excessive Mucous Production, Change in Mucous Color, Pain with Coughing, Other - Gastrointestinal Gastrointestinal: absent: As Per HPI, Abdominal Pain, Belching, Bloating, Change in Bowel Habits, Change in Stool Character, Coffee Ground Emesis, Constipation, Cramping, Diarrhea, Dyspepsia, Dysphagia, Early Satiety, Excessive Flatus, Fecal Incontinence, Heartburn, Hematemesis, Hematochezia, Loose Stools, Melena, Nausea, Odynophagia, Temesmus, Vomiting, Other - Genitourinary Genitourinary: absent: As Per HPI, Change in Urinary Stream, Difficulty Urinating, Dysuria, Flank Pain, Hematuria, Pyuria, Nocturia, Urinary Incontinence, Urinary Frequency, Urinary Hesitance, Urinary Urgency, Voiding Freq/Small Amts, Freq UTI, Hx Renal/Bladder Calculi, Hx /Renal Surgery, Bladder Distension, Other - Musculoskeletal Musculoskeletal: Muscle Weakness, Radiating Pain into Limb - Integumentary Integumentary: Swelling, Unusual Bruising - Neurological Neurological: Disequilibrium, Focal Weakness - Psychiatric Psychiatric: Anxiety - Endocrine Endocrine: absent: As Per HPI, Change in Body Appearance, Change in Libido, Cold Intolorance, Deepening of Voice, Excessive Sweating, Fatigue, Flushing, Heat Intolorance, Increase in Ring/Shoe/Hat Size, Palpitations, Polydipsia, Polyphagia, Polyuria, Other - Hematologic/Lymphatic Hematologic: Easy Bleeding 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) - RENAL Hx Chronic Kidney Disease: No - ENDOCRINE/METABOLIC Hx Endocrine Disorders: No - HEMATOLOGICAL/ONCOLOGICAL Hx Blood Disorders: No - INTEGUMENTARY Hx Dermatological Problems: No - MUSCULOSKELETAL/RHEUMATOLOGICAL Hx Musculoskeletal Disorders: No Hx Falls: No - GASTROINTESTINAL Hx Gastrointestinal Disorders: No - GENITOURINARY/GYNECOLOGICAL Hx Genitourinary Disorders: No - PSYCHIATRIC Hx Substance Use: No - SURGICAL HISTORY Hx Surgeries: Yes Hx Cardiac Catheterization: Yes - ANESTHESIA Hx Anesthesia: Yes Hx Anesthesia Reactions: No Meds Home Medications: Home Medication List Medication Instructions Recorded Confirmed Type Chlorthalidone [Hygroton] 25 mg PO DAILY tab 02/18/17 Rx Metoprolol Tartrate [Lopressor] 100 mg PO Q12 #60 tab 02/18/17 Rx Warfarin [Coumadin] 5 mg PO DAILY #30 tab 02/18/17 Rx diltiaZEM CD [Cardizem CD] 360 mg PO DAILY #30 cap 02/18/17 Rx levETIRAcetam [Keppra] 500 mg PO BID #60 tab 02/18/17 Rx Allergies/Adverse Reactions: Allergies Allergy/AdvReac Type Severity Reaction Status Date / Time No Known Allergies Allergy Verified 10/07/16 10:15 - Medications Medications: Current Medications Chlorthalidone (Hygroton) 25 mg PO DAILY [facility] Last Admin: 02/19/17 10:16 Dose: 25 mg Diltiazem HCl (Cardizem Cd) 360 mg PO DAILY [facility] Last Admin: 02/19/17 10:16 Dose: 360 mg Famotidine (Pepcid) 20 mg PO DAILY [facility] Last Admin: 02/19/17 10:16 Dose: 20 mg Hydralazine HCl (Apresoline) 10 mg IVP Q6H PRN PRN Reason: Systolic Blood Pressure Levetiracetam (Keppra) 500 mg PO BID [facility] Last Admin: 02/19/17 10:16 Dose: 500 mg Losartan Potassium (Cozaar) 100 mg PO DAILY [facility] Last Admin: 02/19/17 10:16 Dose: 100 mg Metoprolol Tartrate (Lopressor) 100 mg PO Q12 [facility] Last Admin: 02/19/17 10:16 Dose: 100 mg Ondansetron HCl (Zofran Inj) 4 mg IVP Q6 PRN PRN Reason: Nausea/Vomiting Oxycodone HCl (Oxycodone Immediate Release Tab) 5 mg PO Q6 PRN PRN Reason: Pain, severe (8-10) Warfarin Sodium (Coumadin) 5 mg PO 1800 [facility] Stop: 02/19/17 18:01 Physical Exam - Constitutional Appears: Chronically Ill - Head Exam Head Exam: ATRAUMATIC, NORMAL INSPECTION - Eye Exam Eye Exam: EOMI, Normal appearance Pupil Exam: NORMAL ACCOMODATION, PERRL - ENT Exam ENT Exam: Mucous Membranes Moist, Normal Exam - Neck Exam Neck exam: Positive for: Normal Inspection - Respiratory Exam Respiratory Exam: Decreased Breath Sounds, Clear to Auscultation Bilateral, NORMAL BREATHING PATTERN - Cardiovascular Exam Cardiovascular Exam: Tachycardia, Irregular Rhythm - GI/Abdominal Exam GI & Abdominal Exam: Normal Bowel Sounds, Soft - Rectal Exam Rectal Exam: Deferred - Exam Exam: NORMAL INSPECTION - Extremities Exam Extremities exam: Positive for: pedal edema, pedal pulses present Additional comments: Complains of severe pain upon slight touch - Back Exam Back exam: NORMAL INSPECTION - Neurological Exam Neurological exam: Alert - Psychiatric Exam Psychiatric exam: Flat Affect - Skin Skin Exam: Dry, Normal Color, Warm Results - Vital Signs Recent Vital Signs: Last Vital Signs Temp 97.3 F L 02/19/17 08:59 Pulse 100 H 02/19/17 09:59 Resp 20 02/19/17 08:59 BP 117/71 02/19/17 09:59 Pulse Ox 96 02/19/17 08:59 - Labs Result Diagrams: 02/19/17 07:18 02/19/17 07:18 Labs: Laboratory Results - last 24 hr 02/18/17 02/18/17 02/19/17 17:02 21:42 06:26 WBC RBC Hgb Hct MCV MCH MCHC RDW Plt Count MPV Neut % (Auto) Lymph % (Auto) Sabine % (Auto) Eos % (Auto) Baso % (Auto) Neut # Lymph # Sabine # Eos # Baso # Neutrophils % (Manual) Band Neutrophils % Lymphocytes % (Manual) Monocytes % (Manual) Basophils % (Manual) Platelet Estimate Ovalocytes PT INR Sodium Potassium Chloride Carbon Dioxide Anion Gap BUN Creatinine Est GFR ( Amer) Est GFR (Non-Af Amer) POC Glucose (mg/dL) 122 H 123 H 153 H Random Glucose Calcium Phosphorus Magnesium Total Bilirubin AST ALT Alkaline Phosphatase Total Protein Albumin Globulin Albumin/Globulin Ratio 02/19/17 02/19/17 02/19/17 07:18 07:18 07:18 WBC 10.9 H RBC 4.48 Hgb 12.1 Hct 35.0 MCV 78.2 L MCH 27.0 MCHC 34.5 RDW 15.6 H Plt Count 502 H MPV 8.3 Neut % (Auto) 87.6 H Lymph % (Auto) 6.8 L Sabine % (Auto) 5.1 Eos % (Auto) 0.1 Baso % (Auto) 0.4 Neut # 9.6 H Lymph # 0.7 L Sabine # 0.6 Eos # 0.0 Baso # 0.0 Neutrophils % (Manual) 86 H Band Neutrophils % 2 Lymphocytes % (Manual) 6 L Monocytes % (Manual) 5 Basophils % (Manual) 1 Platelet Estimate Increased H Ovalocytes Slight PT 33.2 H* D INR 2.8 Sodium 131 L Potassium 3.8 Chloride 99 Carbon Dioxide 22 Anion Gap 14 BUN 25 H Creatinine 1.2 Est GFR ( Amer) > 60 Est GFR (Non-Af Amer) 60 POC Glucose (mg/dL) Random Glucose 135 H Calcium 8.5 L Phosphorus 3.7 Magnesium 2.1 Total Bilirubin 0.5 AST 78 H ALT 131 H Alkaline Phosphatase 103 Total Protein 6.8 Albumin 3.1 L Globulin 3.6 Albumin/Globulin Ratio 0.9 L Assessment & Plan - Assessment and Plan (Free Text) Assessment: Palliative consult Code status Full Code, no advance directive on chart I reviewed medical records, all diagnostic studies, examined and interviewed patient in the bed. Patient is alert and awake, mostly Turkish speaking. patient was able to answer only simple questions and mostly was suggesting to a pain of LEs.Patient is in no in acute distress . Skin is intact with petechiae to LEs. Patient is on daily Coumadin, INR 2.9. Pedal pulses are palpable, toes mobile and warm to touch. Patient favors bending his legs at knee level. When asked to stretch out both legs, patient reacted in pain, unable to quantity it. Patient is also unable to walk due to pain and needs a lot of assistance with care and repositioning. BP 127/75, HR99, O2Sat 96 % RA, afebrile. WBC down to 10.9 from 140. Liver functions elevated. Dilantin changed to Kepra PO. Daughter Pura and Stephania at bed side. The daughter spoke for patient. Her concern is that due to lack of support at home she does not feel it was safe for father to return home. Daughter prefers her father goes to [facility], but lack of insurance is the problem. She claims the application to Medicaid and Medicare was submitted while ago, and she is convinced that all expenses for her father' s care would be covered. The lack of insurance was discussed as potential issue for further care, since the admission ,and employment evaluator/case manager worked hard to accommodate family with lowest possible [place] for [facility] services, as daughter agreed with all along. Now the plan resumed new directions.Doctor Susanne and Teresa from case management had attended the meeting in part, trying to assist with existing concerns. We agreed that patient remains at the hospital until daughter reaches out to SS office and tries to complete the status of health coverage application. Debora , the employment evaluator/case manager was to assist with it as well. Impression * This is chronically ill man with acute pain post angiogram and thrombectomy of LEs * Severe pain of LEs preventing patient from ambulation * Requires max assistance with ADLs * Family states lack of support at home * There is health insurance issue preventing patient from going to [facility] where family would want him to go Suggestion * Pain management * SS to fallow up on status of Medicaid application * Family meeting to fallow up on health coverage status and further goals of care. * I will try to further discuss with family the need of accepting some responsibilities in patient's care; this is chronically ill man whose care should be continued on outpatient basis Thank you very much for consulting Palliative Care
--- NOTE | 2017-02-19 17:21 | CP.PCM.PN ---
<Eloisa Crowe - Last Filed: 02/19/17 17:17> Subjective - Date & Time of Evaluation Date of Evaluation: 02/19/17 Time of Evaluation: 17:17 - Subjective Subjective: Patinet seen and examined at bedside. Patient doing well with no new complaints at this time. Patient still having leg pain. Denies F/C/CP/SOB/AP/N/V/D. Objective - Vital Signs/Intake and Output Vital Signs (last 24 hours): Temp Pulse Resp BP Pulse Ox 97.3 F L 75 20 119/74 96 02/19/17 08:59 02/19/17 14:43 02/19/17 08:59 02/19/17 14:43 02/19/17 08:59 Intake and Output: 02/19/17 02/19/17 06:59 18:59 Intake Total 400 Output Total 500 Balance -100 - Medications Medications: Current Medications Chlorthalidone (Hygroton) 25 mg PO DAILY COUNTS INCLUDE 234 BEDS AT THE [facility] Last Admin: 02/19/17 10:16 Dose: 25 mg Diltiazem HCl (Cardizem Cd) 360 mg PO DAILY COUNTS INCLUDE 234 BEDS AT THE [facility] Last Admin: 02/19/17 10:16 Dose: 360 mg Famotidine (Pepcid) 20 mg PO DAILY COUNTS INCLUDE 234 BEDS AT THE [facility] Last Admin: 02/19/17 10:16 Dose: 20 mg Hydralazine HCl (Apresoline) 10 mg IVP Q6H PRN PRN Reason: Systolic Blood Pressure Levetiracetam (Keppra) 500 mg PO BID COUNTS INCLUDE 234 BEDS AT THE [facility] Last Admin: 02/19/17 10:16 Dose: 500 mg Losartan Potassium (Cozaar) 100 mg PO DAILY COUNTS INCLUDE 234 BEDS AT THE [facility] Last Admin: 02/19/17 10:16 Dose: 100 mg Metoprolol Tartrate (Lopressor) 100 mg PO Q12 COUNTS INCLUDE 234 BEDS AT THE [facility] Last Admin: 02/19/17 10:16 Dose: 100 mg Ondansetron HCl (Zofran Inj) 4 mg IVP Q6 PRN PRN Reason: Nausea/Vomiting Oxycodone HCl (Oxycodone Immediate Release Tab) 5 mg PO Q6 PRN PRN Reason: Pain, severe (8-10) Warfarin Sodium (Coumadin) 5 mg PO 1800 COUNTS INCLUDE 234 BEDS AT THE [facility] Stop: 02/19/17 18:01 - Labs Labs: 02/19/17 07:18 02/19/17 07:18 PT 33.2 SECONDS (9.7-12.2) H* D 02/19/17 07:18 INR 2.8 02/19/17 07:18 APTT 36 SECONDS (21-34) H 02/16/17 08:19 - Constitutional Appears: Non-toxic, No Acute Distress - Head Exam Head Exam: NORMAL INSPECTION - Eye Exam Eye Exam: EOMI - ENT Exam ENT Exam: Mucous Membranes Moist - Respiratory Exam Respiratory Exam: Clear to Ausculation Bilateral, NORMAL BREATHING PATTERN - Cardiovascular Exam Cardiovascular Exam: Irregular Rhythm, +S1, +S2. absent: Tachycardia - GI/Abdominal Exam GI & Abdominal Exam: Soft, Normal Bowel Sounds. absent: Tenderness - Extremities Exam Extremities Exam: Tenderness Additional comments: 4cm x 3mc blister of left lower extremity on the wallace. Bandage to right groin C/ D/I. - Neurological Exam Neurological Exam: Alert, Awake - Psychiatric Exam Psychiatric exam: Normal Affect, Normal Mood - Skin Skin Exam: Dry, Intact, Warm Assessment and Plan - Assessment and Plan (Free Text) Assessment: 1). PAD: Coumadin 7.5 mg PO x 1 dose tonight, INR is 2.3, F/U INR 02/17/17. Goal INR is 2.[address] Brown. He is on therapeutic Lovenox. Daughter Pura [phone] is aware that further surgical intervention ( Femoral Bypass) was not an option as the distal arteries in the bilateral legs could not support this procedure and there is possibility of amputation in the future. The plan for now is to control patient's pain and get the INR therapeutic to at least 2.5 and then discharge patient to home. Instructed to decrease amount of green leafy veggies and vitamin K containing foods. Patient' s is still unhappy with patient leaving as the insurance arrangement is what she thought it was. 02/17: patient had a run of V Tach (5 beats) at 7:46 am. I spoke with Dr. Brown regarding this and he suggested replacing postassium. 20 of K dur was given and will be reassessed tomorrow. Repeat EKG was ordered. We will continue to monitor patient overnight. 2). Malignant HTN: Chlorthalidone, Cozaar, Hydralazine PRN, and Cardizem CD 360 mg 1x/day. Job Spotter Dr. Brown 02/12/17 and he has increased Metoprolol to [address] Angiogram of the Abdomen/Pelvis 02/04/17 did NOT show any evidence of Renal Artery Stenosis 3). Hx Atrial Fibrillation: Coumadin 7.5 mg PO x 1 dose tonight, INR is 2.3, F /U INR 02/13/17. I spoke with Job Spotter Dr. Brown and the goal INR is 2.5. He is on therapeutic Lovenox. Cardizem CD 360 mg PO 1x/day and Metoprolol 100 mg PO Q12H. His blood pressure is better under control. 4). Hx Seizure Disorder: as his LFTs are elevated, Neurology Consult was ordered with Dr. Onesimo Hogan to see if patient could be switched over to Keppra. Dr. Hogan has placed patient on Keppra 500 mg PO 2x/day 5). Hx Multiple CVAs: Crestor is being held considering the elevated LFTs and that his Lipid Profile is currently WNL. His Lipid profile and LFTs will need to be monitored by his PMD upon discharge 6). Elevated LFTs: could be secondary to the Dilantin and the Crestor. The Crestor is being held and the Dilantin switched over to Keppra. The LFTs will need to be monitored by his PMD upon discharge. LFT elevation is currently stable 7). Elevated WBC: there is NO fever and NO shift. Blood and Urine Culture are negative to date. 8). Prophylaxis: Pepcid, Dilaudid, Zofran, Percocet, Simethicone [employer] has already set up Home Visiting Nurse through [facility] for 6 visits (they will then determine if more is needed afterwards) which Daughter Pura will be paying out of pocket ($150 to $200 a visit). When INR is therapeutic (2.5), then patient can be discharged. Patient will need to follow-up in the [facility] ([phone]) for INR check on to adjust Coumadin. Transportation voucher will need to be completed by Nurse. Disposition: Patient ready for discharge, however patient's family did not feel comfortable with the patient leaving 2/2 his leg pain and problems with insurance. Patient will likely be discharged tomorrow (9/15). <Alexandra Skinner V - Last Filed: 02/19/17 23:46> Objective - Vital Signs/Intake and Output Vital Signs (last 24 hours): Temp Pulse Resp BP Pulse Ox 98 F 80 20 124/72 98 02/19/17 22:12 02/19/17 22:12 02/19/17 22:12 02/19/17 22:12 02/19/17 22:12 Intake and Output: 02/19/17 02/20/17 18:59 06:59 Intake Total 400 Output Total 500 Balance -100 - Medications Medications: Current Medications Chlorthalidone (Hygroton) 25 mg PO DAILY COUNTS INCLUDE 234 BEDS AT THE [facility] Last Admin: 02/19/17 10:16 Dose: 25 mg Diltiazem HCl (Cardizem Cd) 360 mg PO DAILY COUNTS INCLUDE 234 BEDS AT THE [facility] Last Admin: 02/19/17 10:16 Dose: 360 mg Famotidine (Pepcid) 20 mg PO DAILY COUNTS INCLUDE 234 BEDS AT THE [facility] Last Admin: 02/19/17 10:16 Dose: 20 mg Hydralazine HCl (Apresoline) 10 mg IVP Q6H PRN PRN Reason: Systolic Blood Pressure Levetiracetam (Keppra) 500 mg PO BID COUNTS INCLUDE 234 BEDS AT THE [facility] Last Admin: 02/19/17 18:51 Dose: 500 mg Losartan Potassium (Cozaar) 100 mg PO DAILY COUNTS INCLUDE 234 BEDS AT THE [facility] Last Admin: 02/19/17 10:16 Dose: 100 mg Metoprolol Tartrate (Lopressor) 100 mg PO Q12 COUNTS INCLUDE 234 BEDS AT THE [facility] Last Admin: 02/19/17 22:15 Dose: 100 mg Ondansetron HCl (Zofran Inj) 4 mg IVP Q6 PRN PRN Reason: Nausea/Vomiting Oxycodone HCl (Oxycodone Immediate Release Tab) 5 mg PO Q6 PRN PRN Reason: Pain, severe (8-10) - Labs Labs: 02/19/17 07:18 02/19/17 07:18 PT 33.2 SECONDS (9.7-12.2) H* D 02/19/17 07:18 INR 2.8 02/19/17 07:18 APTT 36 SECONDS (21-34) H 02/16/17 08:19 Attending/Attestation - Attestation I have personally seen and examined this patient.: Yes I have fully participated in the care of the patient.: Yes I have reviewed all pertinent clinical information, including history, physical exam and plan: Yes Notes (Text): Patient seen, examined and case discussed with day-time resident this morning with and patient's daughter at bedside. Patient denies acute complaints except for leg pain. Patient has unopened blister over left lower extremity, mild ecchymoses in light of lovenox to Coumadin bridge to anticoagulate given atrial fibrillation makes him a high risk for further stroke. I explained to the daughter regarding patient's blood pressure is controlled with medication, patient's arrhytmia is controlled with medication to slow the rate and on blood thinner but his particular arrthymia has high risk of him of stroke, which patient has suffered ten of them. Explained patient's on therapeutic dose of Coumadin which can cause slight bruising which is expected. Daughter translated this back the patient's at bedside. Daughter reports she took off today and will try to deal with patient's insurance through his 's plan. She was also spoken with the head of case management regarding discharge planning as well. Daughter was express understanding regarding patient's poor circulation and remarked that he is high risk for amputation which she is also aware. Patient started on small dose of Oxycodone 5mg PO Q 6 PRN pain given he cannot go home on IV dilaudid. Daughter reporting she needs some type of letter; was directed to go to social security to provide the necessary paper work regarding what she exactly needs to assist with father's insurance. Patient's reported to daughter that patient was bleeding from his old surgical site. I looked at the dressing today it is not soaked through nor any signs of blood. I asked the surgical residents to please check the surgical site and discuss with the family. Appreciate assistance from palliative care and case management. Per cardiology, patient started on Amiodarone given NSVT on the monitor today. Will attempt discharge planning again and see what paperwork will needed from our end to assist with the patient. However, it is also NECESSARY that patient follow up with outpatient doctor regular, vascular and cardiology, and routine INR checks because blood levels need to be therapeutic-->which was also expressed to the daughter, and patient. Assessment/Plan 1). PAD: Coumadin 5 mg PO x 1 dose tonight, INR is 2.8, Job Spotter Dr. Brown on the case help appreciated Vascular surgery Dr Kaur on the case help appreciated and the goal INR is 2.5-3.5. My colleague Dr. Milton Vines had extensive conversation with Daughter Pura [phone] on 02/12/17. Both Dr. Brown and Dr. Kaur along with him explained that at this point the best option was to control the patient's pain as further surgical intervention (Femoral Bypass) was not an option as the distal arteries in the bilateral legs could not support this procedure. The subject of the possibility of amputation in the future was also discussed. The plan for now is to control patient's pain and get the INR therapeutic to at least 2.5 and then discharge patient to home. Pura expressed understanding. 2). Malignant HTN: Chlorthalidone 25mg PO daily, Cozaar 100mg PO daily, Hydralazine PRN, Cardizem CD 360 mg 1x/day, Metoprolol 100mg PO Q bid. Job Spotter Dr. Brown 02/12/17 and he has increased Metoprolol to [address] Angiogram of the Abdomen/Pelvis 02/04/17 did NOT show any evidence of Renal Artery Stenosis 3). Hx Atrial Fibrillation: Coumadin 5 mg PO x 1 dose tonight, INR is 2.8, F/ U INR 02/19/17. I spoke with Job Spotter Dr. Brown and the goal INR is 2.5. Cardizem CD 360 mg PO 1x/day and Metoprolol 100 mg PO Q12H. His blood pressure is better under control. Patient started on anti-arrhythmic given NSVT on the monitor per cardiology. 4). Hx Seizure Disorder: as his LFTs are elevated but downtrending, Neurology Consult was ordered with Dr. Onesimo Hogan to see if patient could be switched over to Keppra. Dr. Hogan has placed patient on Keppra 500 mg PO 2x/day 5). Hx Multiple CVAs: Crestor is being held considering the elevated LFTs and that his Lipid Profile is currently WNL. His Lipid profile and LFTs will need to be monitored by his PMD upon discharge. 6). Elevated LFTs: could be secondary to the Dilantin and the Crestor. The Crestor is being held and the Dilantin switched over to Keppra. The LFTs will need to be monitored by his PMD upon discharge. LFT elevation is currently stable. Ordered for hepatitis panel which is negative. Abdominal US: shows adenomyosis of gallblader and other findings; will need outpatient follow-up with GI. 7). Elevated WBC: there is NO fever and NO shift. Blood and Urine Culture are negative to date and final. White count is mildly elevated. Afebrile. 8). Prophylaxis: Pepcid, Dilaudid, Zofran, Coumadin Disposition: * [employer] has already set up Home Visiting Nurse (they will then determine if more is needed afterwards) which Daughter Pura will be paying out of pocket ($150 to $200 a visit) prior to events noted above. This was clearly explained to the daughter prior to events noted above. * Therapeutic INR today, will maintain for tomorrow. Patient will need to follow -up in the [facility] ([phone]) for INR check to adjust the Coumadin and f/u with physician-->resident secured appointments for the patient to accomplish this. * The INR was therapeutic; the patient could have discharged yesterday, however patient's family expressing fear with what will they do with the patient when he gets home. * We have tried the best of our ability to help this family given lack of insurance status in terms of visiting nursing options, outpatient physical therapy, and attempting to keep his medications affordable and family made aware of out patient/out of pocket costs during hospitalization. * Will consult palliative care to do a goals of care by the family. They have been explained that the severity of peripheral vascular disease and understand in the future amputation is an option. They also understand will need pain control. Patient is a high cardiac risk and would need to be followed by graphic artist for further workup as outpatient. * Pain management with PO medications * Patient to follow-up with social work/case management/palliative care.
[2017-02-20 03:53] LABS: BASO % 0.3 % (0.0-2.0); EOS % 0.4 % (0.0-4.0); HEMATOCRIT 34.7 % (35.0-51.0); LYMPH % 9.3 % (20.0-40.0); MEAN CELL VOLUME 77.9 fL (80.0-94.0); MEAN CORPUSCULAR HEMOGLOBIN 27.2 pg (27.0-31.0); MEAN CORPUSCULAR HGB CONC 34.9 g/dL (33.0-37.0); MEAN PLATELET VOLUME 7.3 fL (7.2-11.7); MONO # 0.7 K/uL (0.0-0.8); MONO % 6.3 % (0.0-10.0); NRBC % 0.1 % (0.0-2.0); PLATELET COUNT 489 K/uL (130-400); WHITE BLOOD COUNT 10.5 K/uL (4.8-10.8)
[2017-02-20 03:59] LABS: CHLORIDE 95 mmol/L (98-107); INR 3.2
[2017-02-20 04:00] LABS: SODIUM 128 mmol/L (132-148)
[2017-02-20 04:02] LABS: ALB/GLOB RATIO 0.9 (1.0-2.1); ALKALINE PHOSPHATASE 96 U/L (38-126); AST/SGOT 75 U/L (17-59); BILIRUBIN,TOTAL 0.4 mg/dL (0.2-1.3); CARBON DIOXIDE 23 mmol/L (22-30); GFR AFRICAN-AMERICAN > 60; TOTAL PROTEIN 6.3 g/dL (6.3-8.3)
[2017-02-20 04:03] LABS: ALT/SGPT 116 U/L (21-72); BLOOD UREA NITROGEN 25 mg/dL (9-20); CALCIUM 8.5 mg/dl (8.6-10.4); GLUCOSE,RANDOM 102 mg/dL (75-110); MAGNESIUM 2.2 mg/dL (1.6-2.3)
[2017-02-20 04:05] LABS: POTASSIUM 4.1 mmol/L (3.6-5.2)
[2017-02-20 04:48] LABS: NEUTROPHIL 88 % (50-75); TOTAL CELLS COUNTED 100
[2017-02-20] MEDS: diltiaZEM 180 mg/24 Hours CD Cap PO SCH (10:43)
--- NOTE | 2017-02-20 15:55 | CP.PCM.PN ---
<Eloisa Crowe - Last Filed: 02/20/17 15:52> Subjective - Date & Time of Evaluation Date of Evaluation: 02/20/17 Time of Evaluation: 15:52 - Subjective Subjective: Patinet seen and examined at bedside. Patient doing well with no new complaints at this time. Patient still having leg pain but says it is getting better. Denies F/C/CP/SOB/AP/N/V/D. Objective - Vital Signs/Intake and Output Vital Signs (last 24 hours): Temp Pulse Resp BP Pulse Ox 97.9 F 81 20 134/70 99 02/20/17 09:14 02/20/17 12:00 02/20/17 09:14 02/20/17 10:43 02/20/17 09:14 Intake and Output: 02/20/17 02/20/17 06:59 18:59 Intake Total 580 400 Output Total 700 500 Balance -120 -100 - Medications Medications: Current Medications Chlorthalidone (Hygroton) 25 mg PO DAILY [facility] Last Admin: 02/20/17 10:43 Dose: 25 mg Diltiazem HCl (Cardizem Cd) 360 mg PO DAILY [facility] Last Admin: 02/20/17 10:43 Dose: 360 mg Famotidine (Pepcid) 20 mg PO DAILY [facility] Last Admin: 02/20/17 10:42 Dose: 20 mg Hydralazine HCl (Apresoline) 10 mg IVP Q6H PRN PRN Reason: Systolic Blood Pressure Levetiracetam (Keppra) 500 mg PO BID [facility] Last Admin: 02/20/17 10:42 Dose: 500 mg Losartan Potassium (Cozaar) 100 mg PO DAILY [facility] Last Admin: 02/20/17 10:42 Dose: 100 mg Metoprolol Tartrate (Lopressor) 100 mg PO Q12 [facility] Last Admin: 02/20/17 10:42 Dose: 100 mg Ondansetron HCl (Zofran Inj) 4 mg IVP Q6 PRN PRN Reason: Nausea/Vomiting Oxycodone HCl (Oxycodone Immediate Release Tab) 5 mg PO Q6 PRN PRN Reason: Pain, severe (8-10) - Labs Labs: 02/20/17 03:50 02/20/17 03:50 PT 37.7 SECONDS (9.7-12.2) H* 02/20/17 03:50 INR 3.2 02/20/17 03:50 APTT 36 SECONDS (21-34) H 02/16/17 08:19 - Constitutional Appears: Non-toxic, No Acute Distress - Head Exam Head Exam: NORMAL INSPECTION - Eye Exam Eye Exam: EOMI - ENT Exam ENT Exam: Mucous Membranes Moist - Respiratory Exam Respiratory Exam: Clear to Ausculation Bilateral, NORMAL BREATHING PATTERN - Cardiovascular Exam Cardiovascular Exam: Irregular Rhythm, +S1, +S2. absent: Tachycardia - GI/Abdominal Exam GI & Abdominal Exam: Soft, Normal Bowel Sounds. absent: Tenderness - Extremities Exam Extremities Exam: Tenderness. absent: Pedal Edema Additional comments: 4cm x 3mc blister of left lower extremity on the wallace. Bandage to right groin C/ D/I. - Neurological Exam Neurological Exam: Alert, Awake - Psychiatric Exam Psychiatric exam: Normal Affect, Normal Mood - Skin Skin Exam: Dry, Intact, Warm Assessment and Plan - Assessment and Plan (Free Text) Assessment: 1). PAD: Hold coumadin dose tonight, INR is 3.2, F/U INR. Goal INR is 2.5 as per Super[employer] Dr. Brown. He is on therapeutic Lovenox. Daughter Pura [phone] is aware that further surgical intervention ( Femoral Bypass) was not an option as the distal arteries in the bilateral legs could not support this procedure and there is possibility of amputation in the future. The plan for now is to control patient's pain and get the INR therapeutic to at least 2.5 and then discharge patient to home. 02/17: patient had a run of V Tach (5 beats) at 7:46 am. I spoke with Dr. Brown regarding this and he suggested replacing postassium. 20 of K dur was given and will be reassessed tomorrow. Repeat EKG was ordered. We will continue to monitor patient overnight. 2). Malignant HTN: Chlorthalidone, Cozaar, Hydralazine PRN, and Cardizem CD 360 mg 1x/day. [employer] Dr. Brown 02/12/17 and he has increased Metoprolol to [address] Angiogram of the Abdomen/Pelvis 02/04/17 did NOT show any evidence of Renal Artery Stenosis 3). Hx Atrial Fibrillation: Coumadin 7.5 mg PO x 1 dose tonight, INR is 2.3, F /U INR 02/13/17. I spoke with Supervisor [employer] Dr. Brown and the goal INR is 2.5. He is on therapeutic Lovenox. Cardizem CD 360 mg PO 1x/day and Metoprolol 100 mg PO Q12H. His blood pressure is better under control. 4). Hx Seizure Disorder: as his LFTs are elevated, Neurology Consult was ordered with Dr. Onesimo Hogan to see if patient could be switched over to Keppra. Dr. Hogan has placed patient on Keppra 500 mg PO 2x/day 5). Hx Multiple CVAs: Crestor is being held considering the elevated LFTs and that his Lipid Profile is currently WNL. His Lipid profile and LFTs will need to be monitored by his PMD upon discharge 6). Elevated LFTs: could be secondary to the Dilantin and the Crestor. The Crestor is being held and the Dilantin switched over to Keppra. The LFTs will need to be monitored by his PMD upon discharge. LFT elevation is currently stable 7). Elevated WBC: there is NO fever and NO shift. Blood and Urine Culture are negative to date. 8). Prophylaxis: Pepcid, Dilaudid, Zofran, Percocet, Simethicone Health Director Leilani has already set up Home Visiting Nurse through [facility] for 6 visits (they will then determine if more is needed afterwards) which Daughter Pura will be paying out of pocket ($150 to $200 a visit). When INR is therapeutic (2.5), then patient can be discharged. Patient will need to follow-up in the [facility] ([phone]) for INR check on to adjust Coumadin. Transportation voucher will need to be completed by Nurse. Disposition: * Health Director Leilani has already set up Home Visiting Nurse (they will then determine if more is needed afterwards) which Daughter Pura will be paying out of pocket ($150 to $200 a visit) prior to events noted above. This was clearly explained to the daughter prior to events noted above. * INR today 3.2, will maintain for tomorrow. Patient will need to follow-up in the [facility] ([phone]) for INR check to adjust the Coumadin and f/u with physician--> secured appointments for the patient to accomplish this. * The patient could have discharged yesterday, however patient's family expressing fear with what will they do with the patient when he gets home. * We have tried the best of our ability to help this family given lack of insurance status in terms of visiting nursing options, outpatient physical therapy, and attempting to keep his medications affordable and family made aware of out patient/out of pocket costs during hospitalization. * Family has been explained that the severity of peripheral vascular disease and understand in the future amputation is an option. They also understand will need pain control. Patient is a high cardiac risk and would need to be followed by roof mechanic for further workup as outpatient. * Pain management with PO medications * Patient to follow-up with social work/case management/palliative care. <Alexandra Skinner V - Last Filed: 02/21/17 14:21> Objective - Vital Signs/Intake and Output Vital Signs (last 24 hours): Temp Pulse Resp BP Pulse Ox 98 F 86 20 127/81 98 02/21/17 11:52 02/21/17 11:52 02/21/17 11:52 02/21/17 11:52 02/21/17 11:52 Intake and Output: 02/21/17 02/21/17 06:59 18:59 Intake Total 840 Output Total 600 Balance 240 - Medications Medications: Current Medications Chlorthalidone (Hygroton) 25 mg PO DAILY [facility] Last Admin: 02/21/17 09:42 Dose: 25 mg Diltiazem HCl (Cardizem Cd) 360 mg PO DAILY [facility] Last Admin: 02/21/17 09:42 Dose: 360 mg Famotidine (Pepcid) 20 mg PO DAILY [facility] Last Admin: 02/21/17 09:42 Dose: 20 mg Hydralazine HCl (Apresoline) 10 mg IVP Q6H PRN PRN Reason: Systolic Blood Pressure Sodium Chloride (Sodium Chloride 0.9%) 1,000 mls @ 50 mls/hr IV .Q20H [facility] Last Admin: 02/21/17 13:58 Dose: Not Given Levetiracetam (Keppra) 500 mg PO BID [facility] Last Admin: 02/21/17 09:42 Dose: 500 mg Losartan Potassium (Cozaar) 100 mg PO DAILY [facility] Last Admin: 02/21/17 09:42 Dose: 100 mg Metoprolol Tartrate (Lopressor) 100 mg PO Q12 [facility] Last Admin: 02/21/17 09:42 Dose: 100 mg Ondansetron HCl (Zofran Inj) 4 mg IVP Q6 PRN PRN Reason: Nausea/Vomiting Oxycodone HCl (Oxycodone Immediate Release Tab) 5 mg PO Q6 PRN PRN Reason: Pain, severe (8-10) Last Admin: 02/21/17 11:53 Dose: 5 mg Warfarin Sodium (Coumadin) 5 mg PO 1800 [facility] Stop: 02/21/17 18:01 - Labs Labs: 02/21/17 08:34 02/21/17 08:34 PT 30.4 SECONDS (9.7-12.2) H* D 02/21/17 12:19 INR 2.6 D 02/21/17 12:19 APTT 31 SECONDS (21-34) 02/21/17 12:19 Attending/Attestation - Attestation I have personally seen and examined this patient.: Yes I have fully participated in the care of the patient.: Yes I have reviewed all pertinent clinical information, including history, physical exam and plan: Yes Notes (Text): This is late computer entry for 02/20/17. Patient seen, examined and case discussed with day-time resident this morning. Patient denies acute complaints except for leg pain. Patient has unopened blister over left lower extremity, mild ecchymoses. Patient has therapuetic INR on Coumadin. Patient is receiving pain medication. Social security filled for the patient to attempt to get social security and copy of the filled paperwork is in the chart. Have discussed with case management and social work it is unlikely patient will get social security in a timely manner to receive rehab option that patient desires. Family has been instructed since day one that they would need to pay out of pocket expenses in terms of nursing and PT sessions. Family is afraid to take him home and afraid he will fall and will not take him. Case management is aware. Patient has elevated CPK, started on gentle IV hydration to prevent rhabdomyolosis. Noted in prior conversations, daughter was express understanding regarding patient's poor circulation and remarked that he is high risk for amputation which she is also aware (02/19). Patient started on small dose of Oxycodone 5mg PO Q 6 PRN pain given he cannot go home on IV dilaudid. Appreciate assistance from palliative care and case management. Assessment/Plan 1). PAD: Held dose of Coumadin since INR is 3.2, Supervisor [employer] Dr. Brown on the case help appreciated Vascular surgery Dr Kaur on the case help appreciated and the goal INR is 2.5-3.5. My colleague Dr. Milton Vines had extensive conversation with Daughter Pura on 02/12/17. Both Dr. Brown and Dr. Kaur along with him explained that at this point the best option was to control the patient's pain as further surgical intervention (Femoral Bypass) was not an option as the distal arteries in the bilateral legs could not support this procedure. The subject of the possibility of amputation in the future was also discussed. The plan for now is to control patient's pain and get the INR therapeutic to at least 2.5 and then discharge patient to home. Pura expressed understanding. This conversation was had again on 02/19/17 with the daughter, Pura by myself who translated to patient's who is resistant to taking the patient home. Family understands that patient may need amputation in the future and he is high risk for procedure. 2). Malignant HTN: Chlorthalidone 25mg PO daily, Cozaar 100mg PO daily, Hydralazine PRN, Cardizem CD 360 mg 1x/day, Metoprolol 100mg PO Q bid. Supervisor [employer] Dr. Brown 02/12/[address] Angiogram of the Abdomen/Pelvis did NOT show any evidence of Renal Artery Stenosis. Blood pressure is controlled 3). Hx Atrial Fibrillation: Held Coumadin tonight since INR is 3.2 Will follow- up INR tomorrow. Patient is rate controlled on Cardizem CD 360 mg PO 1x/day and Metoprolol 100 mg PO Q12H. l. Patient started on anti-arrhythmic given NSVT, Amiodarone and is controlled. 4). Hx Seizure Disorder: as his LFTs are elevated but downtrending, Neurology Consult was ordered with Dr. Onesimo Hogan to see if patient could be switched over to Keppra. Dr. Hogan has placed patient on Keppra 500 mg PO 2x/day 5). Hx Multiple CVAs: Crestor is being held considering the elevated LFTs and that his Lipid Profile is currently WNL. His Lipid profile and LFTs will need to be monitored by his PMD upon discharge. 6). Elevated LFTs: could be secondary to the Dilantin and the Crestor. The Crestor is being held and the Dilantin switched over to Keppra. The LFTs will need to be monitored by his PMD upon discharge. LFT elevation is currently stable. Ordered for hepatitis panel which is negative. Abdominal US: shows adenomyosis of gallbladder and other findings; will need outpatient follow-up with GI. 7). Elevated WBC: there is NO fever and NO shift. Blood and Urine Culture are negative to date and final. White count is mildly elevated. Afebrile. 8). Prophylaxis: Pepcid, Dilaudid, Zofran, Coumadin Disposition: * Health Director Leilani has already set up Home Visiting Nurse (they will then determine if more is needed afterwards) which Daughter Pura will be paying out of pocket ($150 to $200 a visit). This was clearly explained to the daughter last week. However, when patient was set to be discharge on 02/19-->patient's and daughter were upset and reported they felt afraid to take the patient home and refused to take patient home. Case management is aware. Palliative care on board. Attempt to try to get insurance for the patient which daughter is to bring form to social security form to this morning at 02/20 at 11am. Copy of the form is filled and placed in patient's chart. * Patient will need to follow-up in the [facility] ([phone] ) for INR check to adjust the Coumadin and f/u with physician-->resident secured appointments for the patient to accomplish this. * The INR is therapeutic; however patient's family expressing fear with what will they do with the patient when he gets home and refuse to take him home. We have tried the best of our ability to help this family given lack of insurance status in terms of visiting nursing options, outpatient physical therapy, and attempting to keep his medications affordable and family made aware of out patient/out of pocket costs throughout hospitalization. Daughter is attempting to get insurance for patient for rehab option as last minute option. * Family has been explained that the severity of peripheral vascular disease and understand in the future amputation is an option. They also understand will need pain control. Patient is a high cardiac risk and would need to be followed by roof mechanic for further workup as outpatient. * Pain management with PO medications * Patient to follow-up with case management and palliative care * Elevated CPK-->started on gentle IV hydration
[2017-02-20] MEDS: Sodium Chloride 0.9% 1,000 ML IV SCH (18:16)
--- NOTE | 2017-02-20 20:36 | CP.PCM.PN ---
Subjective - Date & Time of Evaluation Date of Evaluation: 02/20/17 Time of Evaluation: 14:00 - Subjective Subjective: still c/o discomfort and pain the both feet Objective - Vital Signs/Intake and Output Vital Signs (last 24 hours): Temp Pulse Resp BP Pulse Ox 98.0 F 79 20 114/67 99 02/20/17 15:00 02/20/17 20:11 02/20/17 15:00 02/20/17 15:00 02/20/17 15:00 Intake and Output: 02/20/17 02/21/17 18:59 06:59 Intake Total 400 Output Total 500 Balance -100 - Medications Medications: Current Medications Chlorthalidone (Hygroton) [address] [facility] Last Admin: 02/20/17 10:43 Dose: 25 mg Diltiazem HCl (Cardizem Cd) [address] [facility] Last Admin: 02/20/17 10:43 Dose: 360 mg Famotidine (Pepcid) [address] [facility] Last Admin: 02/20/17 10:42 Dose: 20 mg Hydralazine HCl (Apresoline) 10 mg IVP Q6H PRN PRN Reason: Systolic Blood Pressure Sodium Chloride (Sodium Chloride 0.9%) 1,000 mls @ 50 mls/hr IV .Q20H [facility] Last Admin: 02/20/17 18:16 Dose: 50 mls/hr Levetiracetam (Keppra) [address] [facility] Last Admin: 02/20/17 17:04 Dose: 500 mg Losartan Potassium (Cozaar) [address] [facility] Last Admin: 02/20/17 10:42 Dose: 100 mg Metoprolol Tartrate (Lopressor) [address] [facility] Last Admin: 02/20/17 10:42 Dose: 100 mg Ondansetron HCl (Zofran Inj) 4 mg IVP Q6 PRN PRN Reason: Nausea/Vomiting Oxycodone HCl (Oxycodone Immediate Release Tab) 5 mg PO Q6 PRN PRN Reason: Pain, severe (8-10) - Labs Labs: 02/20/17 03:50 02/20/17 03:50 PT 37.7 SECONDS (9.7-12.2) H* 02/20/17 03:50 INR 3.2 02/20/17 03:50 APTT 36 SECONDS (21-34) H 02/16/17 08:19 - Constitutional Appears: Well, Unkempt - Head Exam Head Exam: ATRAUMATIC, NORMAL INSPECTION, NORMOCEPHALIC - Eye Exam Eye Exam: EOMI, Normal appearance, PERRL Pupil Exam: NORMAL ACCOMODATION, PERRL - ENT Exam ENT Exam: Mucous Membranes Moist, Normal Exam - Neck Exam Neck Exam: Full ROM, Normal Inspection. absent: Lymphadenopathy - Respiratory Exam Respiratory Exam: Clear to Ausculation Bilateral, Rales, NORMAL BREATHING PATTERN - Cardiovascular Exam Cardiovascular Exam: REGULAR RHYTHM, +S1, +S2, Murmur - GI/Abdominal Exam GI & Abdominal Exam: Soft, Normal Bowel Sounds. absent: Tenderness - Extremities Exam Extremities Exam: Full ROM, Normal Capillary Refill, Normal Inspection. absent : Joint Swelling, Pedal Edema - Neurological Exam Neurological Exam: Alert, Awake, CN II-XII Intact, Oriented x3 - Psychiatric Exam Psychiatric exam: Normal Affect, Normal Mood - Skin Skin Exam: Dry, Intact, Normal Color, Warm Assessment and Plan (1) Atrial fibrillation Assessment & Plan: rate controlled with addition of amiodarone on BB and CCB on OAC INR therapeutic Status: Acute (2) HTN (hypertension), malignant Assessment & Plan: bp stable cont current meds Status: Acute (3) Critical lower limb ischemia Assessment & Plan: cool extremities possible amputation bka in the future overall poor prognosis vascular surgery following Status: Acute
[2017-02-21 03:15] LABS: RBC URINE 1 /hpf (0-3); URINE BACTERIA MANY (<OCC); URINE BILIRUBIN NEGATIVE (NEGATIVE); URINE BLOOD 1+ (NEGATIVE); URINE COLOR Yellow (YELLOW); URINE GLUCOSE (UA) NORMAL (Normal); URINE KETONE NEGATIVE (NEGATIVE); URINE LEUKOCYTE ESTERASE NEG Leu/uL (Negative); URINE PROTEIN NEGATIVE (NEGATIVE); URINE UROBILINOGEN NORMAL mg/dL (0.2-1.0); WBC URINE 8 /hpf (0-5)
[2017-02-21 08:54] LABS: CHLORIDE 98 mmol/L (98-107); POTASSIUM 3.6 mmol/L (3.6-5.2); SODIUM 134 mmol/L (132-148)
[2017-02-21 08:55] LABS: BASO % 0.4 % (0.0-2.0); EOS % 0.3 % (0.0-4.0); HEMATOCRIT 35.2 % (35.0-51.0); LYMPH % 10.5 % (20.0-40.0); MEAN CELL VOLUME 78.4 fL (80.0-94.0); MEAN CORPUSCULAR HEMOGLOBIN 26.9 pg (27.0-31.0); MEAN CORPUSCULAR HGB CONC 34.3 g/dL (33.0-37.0); MEAN PLATELET VOLUME 8.1 fL (7.2-11.7); MONO # 0.6 K/uL (0.0-0.8); MONO % 6.5 % (0.0-10.0); RED CELL DISTRIBUTION WIDTH 15.6 % (11.5-14.5); WHITE BLOOD COUNT 9.9 K/uL (4.8-10.8)
[2017-02-21 08:56] LABS: ALB/GLOB RATIO 0.8 (1.0-2.1); ALKALINE PHOSPHATASE 106 U/L (38-126); AST/SGOT 84 U/L (17-59); BILIRUBIN,TOTAL 0.5 mg/dL (0.2-1.3); BLOOD UREA NITROGEN 26 mg/dL (9-20); CARBON DIOXIDE 25 mmol/L (22-30); GFR AFRICAN-AMERICAN > 60; TOTAL PROTEIN 6.7 g/dL (6.3-8.3)
[2017-02-21 08:57] LABS: ALT/SGPT 130 U/L (21-72); CALCIUM 8.2 mg/dl (8.6-10.4); GLUCOSE,RANDOM 90 mg/dL (75-110)
[2017-02-21] MEDS: diltiaZEM 180 mg/24 Hours CD Cap PO SCH (09:42)
[2017-02-21] MEDS: oxyCODONE 5 mg Immediate Release Tab PO PRN ×2 (11:53→18:21)
[2017-02-21] MEDS: Sodium Chloride 0.9% 1,000 ML IV SCH ×2 (11:58→13:58)
[2017-02-21 12:32] LABS: INR 2.6
--- NOTE | 2017-02-21 14:22 | CP.PCM.PN ---
<Hilario Cruz - Last Filed: 02/21/17 14:23> Subjective - Date & Time of Evaluation Date of Evaluation: 02/21/17 Time of Evaluation: 14:20 - Subjective Subjective: Progress note. Attending: Dr. Skinner Pt seen and examined at bedside. No acute distress. No events overnight. No more v tach overnight. Denies fevers, chills, vomiting, diarrhea, cp. Trending LFTs and CPK. INR 2.6 today. Objective - Vital Signs/Intake and Output Vital Signs (last 24 hours): Temp Pulse Resp BP Pulse Ox 98 F 74 20 127/81 98 02/21/17 11:52 02/21/17 13:15 02/21/17 11:52 02/21/17 11:52 02/21/17 11:52 Intake and Output: 02/21/17 02/21/17 06:59 18:59 Intake Total 840 Output Total 600 Balance 240 - Medications Medications: Current Medications Chlorthalidone (Hygroton) 25 mg PO DAILY [facility] Last Admin: 02/21/17 09:42 Dose: 25 mg Diltiazem HCl (Cardizem Cd) 360 mg PO DAILY [facility] Last Admin: 02/21/17 09:42 Dose: 360 mg Famotidine (Pepcid) 20 mg PO DAILY [facility] Last Admin: 02/21/17 09:42 Dose: 20 mg Hydralazine HCl (Apresoline) 10 mg IVP Q6H PRN PRN Reason: Systolic Blood Pressure Sodium Chloride (Sodium Chloride 0.9%) 1,000 mls @ 50 mls/hr IV .Q20H [facility] Last Admin: 02/21/17 13:58 Dose: Not Given Levetiracetam (Keppra) 500 mg PO BID [facility] Last Admin: 02/21/17 09:42 Dose: 500 mg Losartan Potassium (Cozaar) 100 mg PO DAILY [facility] Last Admin: 02/21/17 09:42 Dose: 100 mg Metoprolol Tartrate (Lopressor) 100 mg PO Q12 [facility] Last Admin: 02/21/17 09:42 Dose: 100 mg Ondansetron HCl (Zofran Inj) 4 mg IVP Q6 PRN PRN Reason: Nausea/Vomiting Oxycodone HCl (Oxycodone Immediate Release Tab) 5 mg PO Q6 PRN PRN Reason: Pain, severe (8-10) Last Admin: 02/21/17 11:53 Dose: 5 mg Warfarin Sodium (Coumadin) 5 mg PO 1800 EBONY Stop: 02/21/17 18:01 - Labs Labs: 02/21/17 08:34 02/21/17 08:34 PT 30.4 SECONDS (9.7-12.2) H* D 02/21/17 12:19 INR 2.6 D 02/21/17 12:19 APTT 31 SECONDS (21-34) 02/21/17 12:19 - Constitutional Appears: Non-toxic, No Acute Distress - Head Exam Head Exam: ATRAUMATIC, NORMAL INSPECTION, NORMOCEPHALIC - Eye Exam Eye Exam: EOMI - ENT Exam ENT Exam: Mucous Membranes Moist - Neck Exam Neck Exam: Full ROM, Normal Inspection - Respiratory Exam Respiratory Exam: NORMAL BREATHING PATTERN. absent: Respiratory Distress - Cardiovascular Exam Cardiovascular Exam: Irregular Rhythm, +S1, +S2 - GI/Abdominal Exam GI & Abdominal Exam: Soft, Normal Bowel Sounds. absent: Tenderness - Extremities Exam Extremities Exam: absent: Normal Inspection Additional comments: Bandage to right groin - Neurological Exam Neurological Exam: Alert, Awake - Psychiatric Exam Psychiatric exam: Normal Affect, Normal Mood - Skin Skin Exam: Dry, Intact, Normal Color, Warm Assessment and Plan - Assessment and Plan (Free Text) Assessment: 1). PAD: F/U INR. Goal INR is 2.[address] Brown. warfarin to be given tonight. Daughter Pura [phone] is aware that further surgical intervention ( Femoral Bypass) was not an option as the distal arteries in the bilateral legs could not support this procedure and there is possibility of amputation in the future. The plan for now is to control patient's pain and get the INR therapeutic to at least 2.5 and then discharge patient to home. 02/17: patient had a run of V Tach (5 beats) at 7:[address] Brown regarding this and he suggested replacing postassium. 20 of K dur was given and will be reassessed tomorrow. Repeat EKG was ordered. We will continue to monitor patient overnight. 2). Malignant HTN: Chlorthalidone, Cozaar, Hydralazine PRN, and Cardizem CD 360 mg 1x/day. Elevators Inspector Dr. Brown 02/12/17 and he has increased Metoprolol to [address] Angiogram of the Abdomen/Pelvis 02/04/17 did NOT show any evidence of Renal Artery Stenosis 3). Hx Atrial Fibrillation: INR 2.6 today, warfarin to be given tonight, check INR tomorrow, also on cardizem 4). Hx Seizure Disorder: as his LFTs are elevated, Neurology Consult was ordered with Dr. Onesimo Hogan to see if patient could be switched over to Keppra. Dr. Hogan has placed patient on Keppra 500 mg PO 2x/day 5). Hx Multiple CVAs: Crestor is being held considering the elevated LFTs and that his Lipid Profile is currently WNL. His Lipid profile and LFTs will need to be monitored by his PMD upon discharge 6). Elevated LFTs: could be secondary to the Dilantin and the Crestor. The Crestor is being held and the Dilantin switched over to Keppra. The LFTs will need to be monitored by his PMD upon discharge. LFT elevation is currently stable. We will continue to trend the LFTs 7). Elevated WBC: there is NO fever and NO shift. Blood and Urine Culture are negative to date. 8). Prophylaxis: Pepcid, zofran, oxycodone PRN [employer] has already set up Home Visiting Nurse through [facility] for 6 visits (they will then determine if more is needed afterwards) which Daughter Pura will be paying out of pocket ($150 to $200 a visit). When INR is therapeutic (2.5), then patient can be discharged. Patient will need to follow-up in the [facility] ([phone]) for INR check on to adjust Coumadin. Transportation voucher will need to be completed by Nurse. Disposition: * [facility] [employer] has already set up Home Visiting Nurse (they will then determine if more is needed afterwards) which Daughter Pura will be paying out of pocket ($150 to $200 a visit) prior to events noted above. This was clearly explained to the daughter prior to events noted above. * Patient will need to follow-up in the [facility] ([phone] ) for INR check to adjust the Coumadin and f/u with physician--> secured appointments for the patient to accomplish this. * The patient could have discharged yesterday, however patient's family expressing fear with what will they do with the patient when he gets home. * We have tried the best of our ability to help this family given lack of insurance status in terms of visiting nursing options, outpatient physical therapy, and attempting to keep his medications affordable and family made aware of out patient/out of pocket costs during hospitalization. * Family has been explained that the severity of peripheral vascular disease and understand in the future amputation is an option. They also understand will need pain control. Patient is a high cardiac risk and would need to be followed by pattern shop supervisor for further workup as outpatient. * Pain management with PO medications * Patient to follow-up with social work/case management/palliative care. <Alexandra Skinner V - Last Filed: 02/22/17 08:09> Objective - Vital Signs/Intake and Output Vital Signs (last 24 hours): Temp Pulse Resp BP Pulse Ox 98.1 F 68 20 129/69 99 02/21/17 23:30 02/22/17 01:00 02/21/17 23:30 02/21/17 23:30 02/21/17 23:30 - Medications Medications: Current Medications Chlorthalidone (Hygroton) 25 mg PO DAILY [facility] Last Admin: 02/21/17 09:42 Dose: 25 mg Diltiazem HCl (Cardizem Cd) 360 mg PO DAILY [facility] Last Admin: 02/21/17 09:42 Dose: 360 mg Famotidine (Pepcid) 20 mg PO DAILY [facility] Last Admin: 02/21/17 09:42 Dose: 20 mg Hydralazine HCl (Apresoline) 10 mg IVP Q6H PRN PRN Reason: Systolic Blood Pressure Sodium Chloride (Sodium Chloride 0.9%) 1,000 mls @ 50 mls/hr IV .Q20H [facility] Last Admin: 02/21/17 13:58 Dose: Not Given Levetiracetam (Keppra) 500 mg PO BID [facility] Last Admin: 02/21/17 18:17 Dose: 500 mg Losartan Potassium (Cozaar) 100 mg PO DAILY [facility] Last Admin: 02/21/17 09:42 Dose: 100 mg Metoprolol Tartrate (Lopressor) 100 mg PO Q12 [facility] Last Admin: 02/21/17 21:15 Dose: 100 mg Ondansetron HCl (Zofran Inj) 4 mg IVP Q6 PRN PRN Reason: Nausea/Vomiting Oxycodone HCl (Oxycodone Immediate Release Tab) 5 mg PO Q6 PRN PRN Reason: Pain, severe (8-10) Last Admin: 02/21/17 18:21 Dose: 5 mg - Labs Labs: 02/21/17 08:34 02/21/17 08:34 PT 30.4 SECONDS (9.7-12.2) H* D 02/21/17 12:19 INR 2.6 D 02/21/17 12:19 APTT 31 SECONDS (21-34) 02/21/17 12:19 Attending/Attestation - Attestation I have personally seen and examined this patient.: Yes I have fully participated in the care of the patient.: Yes I have reviewed all pertinent clinical information, including history, physical exam and plan: Yes Notes (Text): Please disregard resident's note and refer to attending note for the same date thank you.
--- NOTE | 2017-02-21 14:25 | CP.PCM.PN ---
Subjective - Date & Time of Evaluation Date of Evaluation: 02/21/17 Time of Evaluation: 11:45 - Subjective Subjective: Medical Attending Note Patient seen, examined, and case discussed with day time resident. Patient's niece, Salma present with patient's 's sister at bedside. Patient denies acute complaints except for leg pain. Patient reports he is moving his bowels and urinating. Patient denies headache, denies chest pain, denies chills, denies palpitations, denies abdominal pain, denies nausea, denies vomitting, denies constipation, reports muscle aches. Objective - Vital Signs/Intake and Output Vital Signs (last 24 hours): Temp Pulse Resp BP Pulse Ox 98 F 74 20 127/81 98 02/21/17 11:52 02/21/17 13:15 02/21/17 11:52 02/21/17 11:52 02/21/17 11:52 Intake and Output: 02/21/17 02/21/17 06:59 18:59 Intake Total 840 Output Total 600 Balance 240 - Medications Medications: Current Medications Chlorthalidone (Hygroton) 25 mg PO DAILY [facility] Last Admin: 02/21/17 09:42 Dose: 25 mg Diltiazem HCl (Cardizem Cd) 360 mg PO DAILY [facility] Last Admin: 02/21/17 09:42 Dose: 360 mg Famotidine (Pepcid) 20 mg PO DAILY [facility] Last Admin: 02/21/17 09:42 Dose: 20 mg Hydralazine HCl (Apresoline) 10 mg IVP Q6H PRN PRN Reason: Systolic Blood Pressure Sodium Chloride (Sodium Chloride 0.9%) 1,000 mls @ 50 mls/hr IV .Q20H [facility] Last Admin: 02/21/17 13:58 Dose: Not Given Levetiracetam (Keppra) 500 mg PO BID [facility] Last Admin: 02/21/17 09:42 Dose: 500 mg Losartan Potassium (Cozaar) 100 mg PO DAILY [facility] Last Admin: 02/21/17 09:42 Dose: 100 mg Metoprolol Tartrate (Lopressor) 100 mg PO Q12 [facility] Last Admin: 02/21/17 09:42 Dose: 100 mg Ondansetron HCl (Zofran Inj) 4 mg IVP Q6 PRN PRN Reason: Nausea/Vomiting Oxycodone HCl (Oxycodone Immediate Release Tab) 5 mg PO Q6 PRN PRN Reason: Pain, severe (8-10) Last Admin: 02/21/17 11:53 Dose: 5 mg Warfarin Sodium (Coumadin) 5 mg PO 1800 EBONY Stop: 02/21/17 18:01 - Labs Labs: 02/21/17 08:34 02/21/17 08:34 PT 30.4 SECONDS (9.7-12.2) H* D 02/21/17 12:19 INR 2.6 D 02/21/17 12:19 APTT 31 SECONDS (21-34) 02/21/17 12:19 - Constitutional Appears: Non-toxic, No Acute Distress, Older Than Stated Age - Head Exam Head Exam: NORMAL INSPECTION - Eye Exam Eye Exam: EOMI - ENT Exam ENT Exam: Mucous Membranes Moist - Respiratory Exam Respiratory Exam: Clear to Ausculation Bilateral, NORMAL BREATHING PATTERN. absent: Rales, Rhonchi, Wheezes - Cardiovascular Exam Cardiovascular Exam: REGULAR RHYTHM, +S1, +S2. absent: JVD - GI/Abdominal Exam GI & Abdominal Exam: Soft, Normal Bowel Sounds. absent: Distended, Firm, Guarding, Rigid, Tenderness, Rebound - Extremities Exam Extremities Exam: Joint Swelling, Pedal Edema, Tenderness Additional comments: non-pitting edema bilateral lower extremities tender to palpation, tense calf muscle over right lower extremity ecchymoses noted (patient is on coumadin) nonopened blister on left lower extremity unable to appreciate discernable pulses. Prevalon boots b/l - Back Exam Back Exam: absent: CVA tenderness (L), CVA tenderness (R) - Neurological Exam Neurological Exam: Alert, Awake, Oriented x3 - Psychiatric Exam Psychiatric exam: Normal Affect, Normal Mood - Skin Skin Exam: Dry, Intact Additional comments: unopen blister over left lower extremity ecchymoses noted on left lower extremity Assessment and Plan - Assessment and Plan (Free Text) Assessment: Assessment/Plan 1). PAD: Patient's INR is 2.6, Ordered for Coumadin 5mg PO tonight. Monitor INR. Manager Alliance Dr. Brown on the case help appreciated Vascular surgery Dr Kaur on the case help appreciated and the goal INR is 2.5-3.5. My colleague Dr. Milton Vines had extensive conversation with Daughter Pura [phone] on 02/12/17. Both Dr. Brown and Dr. Kaur along with him explained that at this point the best option was to control the patient's pain as further surgical intervention (Femoral Bypass) was not an option as the distal arteries in the bilateral legs could not support this procedure. The subject of the possibility of amputation in the future was also discussed. The plan for now is to control patient's pain and get the INR therapeutic to at least 2.5 and then discharge patient to home. Pura expressed understanding. This conversation was had again on 02/19/17 with the daughter, Pura by myself who translated to patient's who is resistant to taking the patient home. Family understands that patient may need amputation in the future and he is high risk for procedure. 2). Malignant HTN-->controlled Chlorthalidone 25mg PO daily, Cozaar 100mg PO daily Hydralazine 10mg IV Q 6hour PRN Give above 160 SBP Cardizem CD 360 mg 1x/day Metoprolol 100mg PO Q bid. Manager Alliance Dr. Brown 02/12/[address] Angiogram of the Abdomen/Pelvis 02/04/17 did NOT show any evidence of Renal Artery Stenosis 3). Hx Atrial Fibrillation: INR: 2.6, Ordered for Coumadin 5mg PO tonight, f/u INR tomorrow. Cardizem CD 360 mg PO 1x/day and Metoprolol 100 mg PO Q12H Will clarify amiodarone with cardiology. No events overnight. 4). Hx Seizure Disorder: as his LFTs are elevated. Neurology Consult was ordered with Dr. Onesimo Hogan to see if patient could be switched over to Keppra. Dr. Hogan has placed patient on Keppra 500 mg PO 2x/day 5). Hx Multiple CVAs: Crestor is being held considering the elevated LFTs and that his Lipid Profile is currently WNL. His Lipid profile and LFTs will need to be monitored by his PMD upon discharge. 6). Elevated LFTs: could be secondary to the Dilantin and the Crestor. The Crestor is being held and the Dilantin switched over to Keppra. The LFTs will need to be monitored by his PMD upon discharge. LFT elevation is currently stable. Ordered for hepatitis panel which is negative. Abdominal US: shows adenomyosis of gallbladder and other findings; will need outpatient follow-up with GI. 7). Elevated WBC: there is NO fever and NO shift. Blood and Urine Culture are negative to date and final. White count is mildly elevated. Afebrile. 8) Elevated CPK: Gentle IV hydration. Nephrology consult r/o rhabdo 8). Prophylaxis: Pepcid, Dilaudid, Zofran, Coumadin Disposition: * [employer] [facility] has already set up Home Visiting Nurse (they will then determine if more is needed afterwards) which Daughter Pura will be paying out of pocket ($150 to $200 a visit). This was clearly explained to the daughter last week. However, when patient was set to be discharge on 02/19-->patient's and daughter were upset and reported they felt afraid to take the patient home and refused to take patient home. Case management is aware. Palliative care on board. Attempt to try to get insurance for the patient which daughter is to bring form to social security form to this morning at 02/20 at 11am. Copy of the form is filled and placed in patient's chart. * Patient will need to follow-up in the [facility] ([phone] ) for INR check to adjust the Coumadin and f/u with physician-->resident secured appointments for the patient to accomplish this. * The INR is therapeutic; however patient's family expressing fear with what will they do with the patient when he gets home and refuse to take him home. We have tried the best of our ability to help this family given lack of insurance status in terms of visiting nursing options, outpatient physical therapy, and attempting to keep his medications affordable and family made aware of out patient/out of pocket costs throughout hospitalization. Daughter is attempting to get insurance for patient for rehab option as last minute option. * Family has been explained that the severity of peripheral vascular disease and understand in the future amputation is an option. They also understand will need pain control. Patient is a high cardiac risk and would need to be followed by port warden for further workup as outpatient. * Pain management with PO medications * Patient to follow-up with case management and palliative care * Pastoral care consult * Elevated CPK-->started on gentle IV hydration
--- NOTE | 2017-02-21 23:53 | CP.PCM.CON ---
History of Present Illness - History of Present Illness History of Present Illness: 71 yo M w/ pmh of htn, afib, CKD, s/p CVA, epilepsy, initially presented with L leg pain that had been going on since about 1 month; patient was found to have severe PAD on imaging and subsequently underwent bilateral femoral artery thrombectomy; however, patient has continued to have bilateral lower leg pain; patient found to have CK levels consistently elevated since early admission, nephrology being consulted for possible rhabdomyolysis; Patient still reporting severe lower leg pain; has not been able to walk during this admission due to this pain; not on statin since early part of admission; Otherwise is urinating well; eating well; denies any other areas of pain; Review of Systems - Constitutional Constitutional: absent: Anorexia - EENT Eyes: absent: Change in Vision Nose/Mouth/Throat: absent: Nasal Discharge - Cardiovascular Cardiovascular: Rapid Heart Rate - Respiratory Respiratory: absent: Dyspnea - Gastrointestinal Gastrointestinal: absent: Nausea, Vomiting - Genitourinary Genitourinary: absent: Difficulty Urinating, Dysuria - Musculoskeletal Musculoskeletal: absent: Arthralgias, Back Pain - Integumentary Integumentary: absent: Pruritus - Neurological Neurological: absent: Sensory Deficit - Psychiatric Psychiatric: absent: Abnormal Sleep Pattern Past Patient History - Infectious Disease Hx of Infectious Diseases: None - Past Medical History & Family History Past Medical History?: Yes Pertinent Family History: Father - of heart attack [place] - of pneumonia; - Past Social History Smoking Status: Never Smoked Alcohol: None Home Situation {Lives}: With Family Domestic Violence: Negative - CARDIAC Hx Cardiac Disorders: Yes (A-fib) Hx Hypertension: Yes - PULMONARY Hx Respiratory Disorders: No - NEUROLOGICAL Hx Seizures: Yes - HEENT Hx HEENT Problems: Yes 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) - RENAL Hx Chronic Kidney Disease: No - ENDOCRINE/METABOLIC Hx Endocrine Disorders: No - HEMATOLOGICAL/ONCOLOGICAL Hx Blood Disorders: No - INTEGUMENTARY Hx Dermatological Problems: No - MUSCULOSKELETAL/RHEUMATOLOGICAL Hx Musculoskeletal Disorders: No Hx Falls: No - GASTROINTESTINAL Hx Gastrointestinal Disorders: No - GENITOURINARY/GYNECOLOGICAL Hx Genitourinary Disorders: No - PSYCHIATRIC Hx Substance Use: No - SURGICAL HISTORY Hx Surgeries: Yes Hx Cardiac Catheterization: Yes - ANESTHESIA Hx Anesthesia: Yes Hx Anesthesia Reactions: No Meds Home Medications: Home Medication List Medication Instructions Recorded Confirmed Type Chlorthalidone [Hygroton] 25 mg PO DAILY tab 02/18/17 Rx Metoprolol Tartrate [Lopressor] 100 mg PO Q12 #60 tab 02/18/17 Rx diltiaZEM CD [Cardizem CD] 360 mg PO DAILY #30 cap 02/18/17 Rx levETIRAcetam [Keppra] 500 mg PO BID #60 tab 02/18/17 Rx Warfarin [Coumadin] 5 mg PO 1800 #5 tab 02/20/17 Rx oxyCODONE [oxyCODONE Immediate 5 mg PO Q6 PRN #20 tab 02/20/17 Rx Release Tab] Allergies/Adverse Reactions: Allergies Allergy/AdvReac Type Severity Reaction Status Date / Time No Known Allergies Allergy Verified 10/07/16 10:15 - Medications Medications: Current Medications Chlorthalidone (Hygroton) 25 mg PO DAILY [facility] Last Admin: 02/21/17 09:42 Dose: 25 mg Diltiazem HCl (Cardizem Cd) 360 mg PO DAILY [facility] Last Admin: 02/21/17 09:42 Dose: 360 mg Famotidine (Pepcid) 20 mg PO DAILY [facility] Last Admin: 02/21/17 09:42 Dose: 20 mg Hydralazine HCl (Apresoline) 10 mg IVP Q6H PRN PRN Reason: Systolic Blood Pressure Sodium Chloride (Sodium Chloride 0.9%) 1,000 mls @ 50 mls/hr IV .Q20H [facility] Last Admin: 02/21/17 13:58 Dose: Not Given Levetiracetam (Keppra) 500 mg PO BID [facility] Last Admin: 02/21/17 18:17 Dose: 500 mg Losartan Potassium (Cozaar) 100 mg PO DAILY [facility] Last Admin: 02/21/17 09:42 Dose: 100 mg Metoprolol Tartrate (Lopressor) 100 mg PO Q12 [facility] Last Admin: 02/21/17 21:15 Dose: 100 mg Ondansetron HCl (Zofran Inj) 4 mg IVP Q6 PRN PRN Reason: Nausea/Vomiting Oxycodone HCl (Oxycodone Immediate Release Tab) 5 mg PO Q6 PRN PRN Reason: Pain, severe (8-10) Last Admin: 02/21/17 18:21 Dose: 5 mg Physical Exam - Constitutional Appears: Non-toxic, No Acute Distress - Head Exam Head Exam: NORMAL INSPECTION - Eye Exam Eye Exam: Normal appearance. absent: Scleral icterus - ENT Exam ENT Exam: Mucous Membranes Moist - Neck Exam Neck exam: Negative for: Lymphadenopathy - Respiratory Exam Respiratory Exam: Clear to Auscultation Bilateral, NORMAL BREATHING PATTERN. absent: Rales, Rhonchi, Wheezes, Respiratory Distress - Cardiovascular Exam Cardiovascular Exam: +S1, +S2 - GI/Abdominal Exam GI & Abdominal Exam: Soft. absent: Tenderness - Exam Exam: absent: Bladder Distension - Extremities Exam Additional comments: Bilateral lower leg tenderness; L lower leg with area of tenseness; - Neurological Exam Neurological exam: Alert - Psychiatric Exam Psychiatric exam: Normal Affect, Normal Mood - Skin Skin Exam: Normal Color, Warm Results - Vital Signs Recent Vital Signs: Last Vital Signs Temp 97.4 F L 02/21/17 16:00 Pulse 63 02/21/17 16:48 Resp 20 02/21/17 16:00 BP 136/72 02/21/17 16:00 Pulse Ox 96 02/21/17 16:00 - Labs Result Diagrams: 02/21/17 08:34 02/21/17 08:34 Labs: Laboratory Results - last 24 hr 02/21/17 02/21/17 02/21/17 03:07 06:20 08:34 WBC 9.9 RBC 4.49 Hgb 12.1 Hct 35.2 MCV 78.4 L MCH 26.9 L MCHC 34.3 RDW 15.6 H Plt Count 498 H MPV 8.1 Neut % (Auto) 82.3 H Lymph % (Auto) 10.5 L [place] % (Auto) 6.5 Eos % (Auto) 0.3 Baso % (Auto) 0.4 Neut # 8.1 H Lymph # 1.0 [place] # 0.6 Eos # 0.0 Baso # 0.0 PT INR APTT Sodium Potassium Chloride Carbon Dioxide Anion Gap BUN Creatinine Est GFR ( Amer) Est GFR (Non-Af Amer) POC Glucose (mg/dL) 100 Random Glucose Calcium Total Bilirubin AST ALT Alkaline Phosphatase Total Creatine Kinase Total Protein Albumin Globulin Albumin/Globulin Ratio Urine Color Yellow Urine Clarity Clear Urine pH 6.0 Ur Specific [place] 1.012 Urine Protein Negative Urine Glucose (UA) Normal Urine Ketones Negative Urine Blood 1+ H Urine Nitrate Negative Urine Bilirubin Negative Urine Urobilinogen Normal Ur Leukocyte Esterase Neg Urine WBC (Auto) 8 H Urine RBC (Auto) 1 Urine Bacteria Many H Ur Random Creatinine Urine Microalbumin 02/21/17 02/21/17 02/21/17 08:34 12:14 12:19 WBC RBC Hgb Hct MCV MCH MCHC RDW Plt Count MPV Neut % (Auto) Lymph % (Auto) [place] % (Auto) Eos % (Auto) Baso % (Auto) Neut # Lymph # [place] # Eos # Baso # PT 30.4 H* D INR 2.6 D APTT 31 Sodium 134 Potassium 3.6 Chloride 98 Carbon Dioxide 25 Anion Gap 14 BUN 26 H Creatinine 1.2 Est GFR ( Amer) > 60 Est GFR (Non-Af Amer) 60 POC Glucose (mg/dL) 157 H Random Glucose 90 Calcium 8.2 L Total Bilirubin 0.5 AST 84 H ALT 130 H Alkaline Phosphatase 106 Total Creatine Kinase 2216 H Total Protein 6.7 Albumin 3.0 L Globulin 3.6 Albumin/Globulin Ratio 0.8 L Urine Color Urine Clarity Urine pH Ur Specific [place] Urine Protein Urine Glucose (UA) Urine Ketones Urine Blood Urine Nitrate Urine Bilirubin Urine Urobilinogen Ur Leukocyte Esterase Urine WBC (Auto) Urine RBC (Auto) Urine Bacteria Ur Random Creatinine Urine Microalbumin 02/21/17 02/21/17 02/21/17 16:26 20:56 22:59 WBC RBC Hgb Hct MCV MCH MCHC RDW Plt Count MPV Neut % (Auto) Lymph % (Auto) [place] % (Auto) Eos % (Auto) Baso % (Auto) Neut # Lymph # [place] # Eos # Baso # PT INR APTT Sodium Potassium Chloride Carbon Dioxide Anion Gap BUN Creatinine Est GFR ( Amer) Est GFR (Non-Af Amer) POC Glucose (mg/dL) 130 H 129 H Random Glucose Calcium Total Bilirubin AST ALT Alkaline Phosphatase Total Creatine Kinase Total Protein Albumin Globulin Albumin/Globulin Ratio Urine Color Urine Clarity Urine pH Ur Specific [place] Urine Protein Urine Glucose (UA) Urine Ketones Urine Blood Urine Nitrate Urine Bilirubin Urine Urobilinogen Ur Leukocyte Esterase Urine WBC (Auto) Urine RBC (Auto) Urine Bacteria Ur Random Creatinine Urine Microalbumin 16.4 02/21/17 22:59 WBC RBC Hgb Hct MCV MCH MCHC RDW Plt Count MPV Neut % (Auto) Lymph % (Auto) [place] % (Auto) Eos % (Auto) Baso % (Auto) Neut # Lymph # [place] # Eos # Baso # PT INR APTT Sodium Potassium Chloride Carbon Dioxide Anion Gap BUN Creatinine Est GFR ( Amer) Est GFR (Non-Af Amer) POC Glucose (mg/dL) Random Glucose Calcium Total Bilirubin AST ALT Alkaline Phosphatase Total Creatine Kinase Total Protein Albumin Globulin Albumin/Globulin Ratio Urine Color Urine Clarity Urine pH Ur Specific [place] Urine Protein Urine Glucose (UA) Urine Ketones Urine Blood Urine Nitrate Urine Bilirubin Urine Urobilinogen Ur Leukocyte Esterase Urine WBC (Auto) Urine RBC (Auto) Urine Bacteria Ur Random Creatinine 51.3 Urine Microalbumin - Imaging and Cardiology US - abdomen Status: Image reviewed by me Additional comment: Kidneys with cortical echogenicity relatively preserved; Assessment & Plan (1) Elevated CK Assessment and Plan: Etiology unclear; no inciting med identified; possibility of myalgia/myositis due to an unknown condition; alternatively, patient's severe PAD may be causing some degree of muscle necrosis; no proximal muscle weakness identified; Otherwise, relatively low degree of CK elevation, should not result in any renal injury; -closely monitor meds that may further increase CK level -agree with IVF, should encourage patient to avoid dehydration -checking TSH and 25-OH vit D level (although these were both unremarkable 3 months ago) Status: Acute (2) HTN (hypertension) Assessment and Plan: BP controlled on 4 agents including a diuretic (metoprolol, cardizem, losartan and chlorthalidone); continue same; should check nhoemi/renin level to look for secondary cause of htn; Status: Chronic (3) CKD (chronic kidney disease) Assessment and Plan: Mild CKD with no significant albuminuria; serum creatinine relatively stable; -checking bladder US for post-void residual volume measurement for evidence of reflux nephropathy; Status: Chronic
[2017-02-22 09:42] LABS: BASO % 0.3 % (0.0-2.0); EOS % 0.4 % (0.0-4.0); HEMATOCRIT 35.5 % (35.0-51.0); LYMPH # 0.9 K/uL (1.0-4.3); LYMPH % 10.6 % (20.0-40.0); MEAN CELL VOLUME 78.1 fL (80.0-94.0); MEAN CORPUSCULAR HEMOGLOBIN 26.9 pg (27.0-31.0); MEAN CORPUSCULAR HGB CONC 34.5 g/dL (33.0-37.0); MEAN PLATELET VOLUME 7.6 fL (7.2-11.7); MONO # 0.5 K/uL (0.0-0.8); MONO % 6.3 % (0.0-10.0); RED CELL DISTRIBUTION WIDTH 15.6 % (11.5-14.5); WHITE BLOOD COUNT 8.5 K/uL (4.8-10.8)
[2017-02-22 10:00] LABS: CHLORIDE 99 mmol/L (98-107); POTASSIUM 3.7 mmol/L (3.6-5.2); SODIUM 133 mmol/L (132-148)
[2017-02-22 10:02] LABS: BILIRUBIN,TOTAL 0.5 mg/dL (0.2-1.3); GFR AFRICAN-AMERICAN > 60
[2017-02-22 10:03] LABS: ALB/GLOB RATIO 0.8 (1.0-2.1); ALKALINE PHOSPHATASE 106 U/L (38-126); ALT/SGPT 120 U/L (21-72); AST/SGOT 73 U/L (17-59); BLOOD UREA NITROGEN 21 mg/dL (9-20); CALCIUM 8.3 mg/dl (8.6-10.4); CARBON DIOXIDE 23 mmol/L (22-30); GLUCOSE,RANDOM 97 mg/dL (75-110); TOTAL PROTEIN 6.7 g/dL (6.3-8.3)
[2017-02-22] MEDS: diltiaZEM 180 mg/24 Hours CD Cap PO SCH (10:04)
--- NOTE | 2017-02-22 10:25 | CARD ---
APPROVED REPORT EKG Measurement Heart [id number] <Conclusion> Atrial fibrillation Left axis deviation Right bundle branch block Voltage criteria for left ventricular hypertrophy T wave abnormality, consider lateral ischemia Abnormal ECG
[2017-02-22 10:31] LABS: THYROID STIMULATING HORMONE 1.43 mIU/L (0.46-4.68)
--- NOTE | 2017-02-22 12:39 | CP.PCM.PN ---
<Alexandra Skinner V - Last Filed: 02/22/17 12:51> Objective - Vital Signs/Intake and Output Vital Signs (last 24 hours): Temp Pulse Resp BP Pulse Ox 97.7 F 86 20 147/74 96 02/22/17 09:35 02/22/17 09:35 02/22/17 09:35 02/22/17 09:35 02/22/17 09:35 - Medications Medications: Current Medications Amiodarone HCl (Cordarone) 400 mg PO BID [facility] Stop: 03/01/17 18:01 Chlorthalidone (Hygroton) 25 mg PO DAILY [facility] Last Admin: 02/22/17 10:04 Dose: 25 mg Diltiazem HCl (Cardizem Cd) 360 mg PO DAILY [facility] Last Admin: 02/22/17 10:04 Dose: 360 mg Famotidine (Pepcid) 20 mg PO DAILY [facility] Last Admin: 02/22/17 10:04 Dose: 20 mg Hydralazine HCl (Apresoline) 10 mg IVP Q6H PRN PRN Reason: Systolic Blood Pressure Sodium Chloride (Sodium Chloride 0.9%) 1,000 mls @ 50 mls/hr IV .Q20H [facility] Last Admin: 02/21/17 13:58 Dose: Not Given Levetiracetam (Keppra) 500 mg PO BID [facility] Last Admin: 02/22/17 10:04 Dose: 500 mg Losartan Potassium (Cozaar) 100 mg PO DAILY [facility] Last Admin: 02/22/17 10:04 Dose: 100 mg Metoprolol Tartrate (Lopressor) 100 mg PO Q12 [facility] Last Admin: 02/22/17 10:04 Dose: 100 mg Ondansetron HCl (Zofran Inj) 4 mg IVP Q6 PRN PRN Reason: Nausea/Vomiting Oxycodone HCl (Oxycodone Immediate Release Tab) 5 mg PO Q6 PRN PRN Reason: Pain, severe (8-10) Last Admin: 02/21/17 18:21 Dose: 5 mg Warfarin Sodium (Coumadin) 7.5 mg PO 1800 [facility] Stop: 02/22/17 18:01 - Labs Labs: 02/22/17 09:37 02/22/17 09:37 PT 23.8 SECONDS (9.7-12.2) H D 02/22/17 09:37 INR 2.0 D 02/22/17 09:37 APTT 31 SECONDS (21-34) 02/21/17 12:19 Attending/Attestation - Attestation I have personally seen and examined this patient.: Yes I have fully participated in the care of the patient.: Yes I have reviewed all pertinent clinical information, including history, physical exam and plan: Yes Notes (Text): Patient seen, examined, and case discussed with day-time resident. Patient seen during rounds. patient reports pain over right lower extremity. Denies other acute complaints. Discussed with nephrology, unlikely patient has rhabdomyolosis, c/w gentle IV hydration; recommend for bladder scan. Amiodarone taper builted in the the [employer]; advised by cardiology from note from 02/19/17-->amiodarone 400mg PO bid X 7days, and then Amiodarone 200mg PO bid there after. INR dropped to 2.0. patient to be given Coumadin 7.5mg PO tonight. No family at bedside. Assessment/Plan 1). severe PAD: Patient's INR is 2.6, Ordered for Coumadin 5mg PO tonight. Monitor INR. Fire[employer] Dr. Brown on the case help appreciated Vascular surgery Dr Kaur on the case help appreciated and the goal INR is 2.5-3.5. s/p 02/05/17 Femoral embolectomy via groin incision, right and left with intraoperative angiograms-->bilateral femoral embolectomy by groin incision and angiography-->clot removed by the right lower extremity; no clot from the left. My colleague Dr. Milton Vines had extensive conversation with Daughter Pura on 02/12/17. Both Dr. Brown and Dr. Kaur along with him explained that at this point the best option was to control the patient's pain as further surgical intervention (Femoral Bypass) was not an option as the distal arteries in the bilateral legs could not support this procedure. The subject of the possibility of amputation in the future was also discussed. The plan for now is to control patient's pain and get the INR therapeutic to at least 2.5 and then discharge patient to home. Pura expressed understanding. This conversation was had again on 02/19/17 with the daughter, Pura by myself who translated to patient's who is resistant to taking the patient home. Family understands that patient may need amputation in the future and he is high risk for procedure. PRN: Oxycodone 5mg PO 6 PRN severe pain 2). Malignant HTN-->controlled Chlorthalidone 25mg PO daily, Cozaar 100mg PO daily Hydralazine 10mg IV Q 6hour PRN Give above 160 SBP Cardizem CD 360 mg 1x/day Metoprolol 100mg PO Q bid. Fire[employer] Dr. Brown 02/12/[address] Angiogram of the Abdomen/Pelvis 02/04/17 did NOT show any evidence of Renal Artery Stenosis 3). Hx Atrial Fibrillation: INR: 2.0, Ordered for Coumadin 7.5mg PO tonight, f/u INR tomorrow Cardizem CD 360 mg PO 1x/day and Metoprolol 100 mg PO Q12H Amiodarone 400mg PO BID X 7days, Amiodarone 200mg PO BID thereafter 4). Hx Seizure Disorder: as his LFTs are elevated. Neurology Consult was ordered with Dr. Onesimo Hogan to see if patient could be switched over to Keppra. Dr. Hogan has placed patient on Keppra 500 mg PO 2x/day 5). Hx Multiple CVAs: Crestor is being held considering the elevated LFTs and that his Lipid Profile is currently WNL. His Lipid profile and LFTs will need to be monitored by his PMD upon discharge. 6). Elevated LFTs: could be secondary to the Dilantin and the Crestor. The Crestor is being held and the Dilantin switched over to Keppra. The LFTs will need to be monitored by his PMD upon discharge. LFT elevation is currently stable. Ordered for hepatitis panel which is negative. Abdominal US: shows adenomyosis of gallbladder and other findings; will need outpatient follow-up with GI. 7). Elevated WBC: there is NO fever and NO shift. Blood and Urine Culture are negative to date and final. White count is mildly elevated. Afebrile. 8) Elevated CPK: Gentle IV hydration. Nephrology consult r/o rhabdo 8). Prophylaxis: Pepcid, Dilaudid, Zofran, Coumadin Disposition: * [employer] has already set up Home Visiting Nurse (they will then determine if more is needed afterwards) which Daughter Pura will be paying out of pocket ($150 to $200 a visit). This was clearly explained to the daughter last week. However, when patient was set to be discharge on 02/19-->patient's and daughter were upset and reported they felt afraid to take the patient home and refused to take patient home. Case management is aware. Palliative care on board. Attempt to try to get insurance for the patient which daughter is to bring form to social security form to this morning at 02/20 at 11am. Copy of the form is filled and placed in patient's chart. * Patient will need to follow-up in the [facility] ([phone] ) for INR check to adjust the Coumadin and f/u with physician-->resident secured appointments for the patient to accomplish this. * The INR is therapeutic; however patient's family expressing fear with what will they do with the patient when he gets home and refuse to take him home. We have tried the best of our ability to help this family given lack of insurance status in terms of visiting nursing options, outpatient physical therapy, and attempting to keep his medications affordable and family made aware of out patient/out of pocket costs throughout hospitalization. Daughter is attempting to get insurance for patient for rehab option as last minute option. * Family has been explained that the severity of peripheral vascular disease and understand in the future amputation is an option. They also understand will need pain control. Patient is a high cardiac risk and would need to be followed by merchandise for resale purchasing agent for further workup as outpatient. * Pain management with PO medications * Patient to follow-up with case management and palliative care * Pastoral care consult * Elevated CPK-->started on gentle IV hydration <Hilario Cruz - Last Filed: 02/22/17 13:43> Subjective - Date & Time of Evaluation Date of Evaluation: 02/22/17 Time of Evaluation: 12:35 - Subjective Subjective: Progress note. Attending: Dr. Skinner. Pt seen and examined at bedside. No acute distress. No events overnight. INR 2.0 today, will resume warfarin at a dose of 7.5 mg. Nephro following for rhabo. No fevers, chills, vomiting, diarrhea, cp, sob. Objective - Vital Signs/Intake and Output Vital Signs (last 24 hours): Temp Pulse Resp BP Pulse Ox 97.7 F 86 20 147/74 96 02/22/17 09:35 02/22/17 09:35 02/22/17 09:35 02/22/17 09:35 02/22/17 09:35 - Medications Medications: Current Medications Chlorthalidone (Hygroton) 25 mg PO DAILY [facility] Last Admin: 02/22/17 10:04 Dose: 25 mg Diltiazem HCl (Cardizem Cd) 360 mg PO DAILY [facility] Last Admin: 02/22/17 10:04 Dose: 360 mg Famotidine (Pepcid) 20 mg PO DAILY [facility] Last Admin: 02/22/17 10:04 Dose: 20 mg Hydralazine HCl (Apresoline) 10 mg IVP Q6H PRN PRN Reason: Systolic Blood Pressure Sodium Chloride (Sodium Chloride 0.9%) 1,000 mls @ 50 mls/hr IV .Q20H [facility] Last Admin: 02/21/17 13:58 Dose: Not Given Levetiracetam (Keppra) 500 mg PO BID [facility] Last Admin: 02/22/17 10:04 Dose: 500 mg Losartan Potassium (Cozaar) 100 mg PO DAILY [facility] Last Admin: 02/22/17 10:04 Dose: 100 mg Metoprolol Tartrate (Lopressor) 100 mg PO Q12 [facility] Last Admin: 02/22/17 10:04 Dose: 100 mg Ondansetron HCl (Zofran Inj) 4 mg IVP Q6 PRN PRN Reason: Nausea/Vomiting Oxycodone HCl (Oxycodone Immediate Release Tab) 5 mg PO Q6 PRN PRN Reason: Pain, severe (8-10) Last Admin: 02/21/17 18:21 Dose: 5 mg Warfarin Sodium (Coumadin) 7.5 mg PO 1800 [facility] Stop: 02/22/17 18:01 - Labs Labs: 02/22/17 09:37 02/22/17 09:37 PT 23.8 SECONDS (9.7-12.2) H D 02/22/17 09:37 INR 2.0 D 02/22/17 09:37 APTT 31 SECONDS (21-34) 02/21/17 12:19 - Constitutional Appears: Non-toxic, No Acute Distress - Head Exam Head Exam: ATRAUMATIC, NORMAL INSPECTION, NORMOCEPHALIC - Eye Exam Eye Exam: EOMI - ENT Exam ENT Exam: Mucous Membranes Moist - Neck Exam Neck Exam: Full ROM, Normal Inspection - Respiratory Exam Respiratory Exam: NORMAL BREATHING PATTERN. absent: Respiratory Distress - Cardiovascular Exam Cardiovascular Exam: Irregular Rhythm, +S1, +S2 - GI/Abdominal Exam GI & Abdominal Exam: Soft, Normal Bowel Sounds. absent: Tenderness - Extremities Exam Extremities Exam: Full ROM, Normal Inspection - Back Exam Back Exam: NORMAL INSPECTION - Neurological Exam Neurological Exam: Alert, Awake, Oriented x3 - Psychiatric Exam Psychiatric exam: Normal Affect, Normal Mood - Skin Skin Exam: Dry, Intact, Normal Color, Warm Assessment and Plan - Assessment and Plan (Free Text) Assessment: 1. 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 Increased CK -nephrology consulted. recs appreciated -CPK trending down. -continue NS 50 cc/hr 3. Hx of HTN -continue chlorthalidone 25 mg po daily -continue hydralazine 10 IV q 6 prn -continue lopressor 100 q 12 hrs -continue losartan 100 mg daily 4. hx of CKD -avoid nephrotoxic agents -nephrology consulted. recs appreciated. 5. hx of atrial fibrillation -continue dilitiazem 300 daily -continue lopressor 100 q12 -will add amiodarone 400 po bid -inr 2.0 tonight -warfarin 7.5 mg po tonight -cardiology consulted. recs appreciated. 6. hx of CVA -continue to monitor 7. hx of epilepsy -continue keppra 500 BID 8. transaminitis -downtrending -continue to monitor 9. GI/DVT ppx -cont pepcid -continue zofran Dispo: pt is [facility]. awaiting placement discussed with Dr. Skinner.
[2017-02-23] MEDS: Sodium Chloride 0.9% 1,000 ML IV SCH (05:16)
[2017-02-23 06:43] LABS: BASO % 0.2 % (0.0-2.0); EOS % 0.5 % (0.0-4.0); HEMATOCRIT 32.8 % (35.0-51.0); LYMPH # 1.2 K/uL (1.0-4.3); MEAN CELL VOLUME 78.3 fL (80.0-94.0); MEAN CORPUSCULAR HEMOGLOBIN 26.9 pg (27.0-31.0); MEAN CORPUSCULAR HGB CONC 34.4 g/dL (33.0-37.0); MEAN PLATELET VOLUME 7.3 fL (7.2-11.7); MONO # 0.6 K/uL (0.0-0.8); MONO % 6.9 % (0.0-10.0); RED CELL DISTRIBUTION WIDTH 15.9 % (11.5-14.5); WHITE BLOOD COUNT 9.3 K/uL (4.8-10.8)
[2017-02-23 06:47] LABS: INR 2.3
[2017-02-23 07:39] LABS: ALB/GLOB RATIO 0.8 (1.0-2.1); ALKALINE PHOSPHATASE 103 U/L (38-126); ALT/SGPT 120 U/L (21-72); AST/SGOT 77 U/L (17-59); BILIRUBIN,TOTAL 0.3 mg/dL (0.2-1.3); BLOOD UREA NITROGEN 20 mg/dL (9-20); CALCIUM 8.5 mg/dl (8.6-10.4); CARBON DIOXIDE 28 mmol/L (22-30); CHLORIDE 97 mmol/L (98-107); GFR AFRICAN-AMERICAN > 60; GLUCOSE,RANDOM 99 mg/dL (75-110); POTASSIUM 4.4 mmol/L (3.6-5.2); SODIUM 134 mmol/L (132-148); TOTAL PROTEIN 6.2 g/dL (6.3-8.3)
[2017-02-23] MEDS: diltiaZEM 180 mg/24 Hours CD Cap PO SCH (10:55)
--- NOTE | 2017-02-23 12:21 | US ---
PROCEDURE: Ultrasound of the Bladder HISTORY: Please assess post-void residual volume COMPARISON: None available. TECHNIQUE: Sonographic evaluation of the bladder was performed. FINDINGS: Unremarkable without wall thickening or intraluminal debris. No calculus or gross mass lesion. No free fluid in pelvis. Prostate gland is enlarged 4.7 greatest dimension Prevoid Volume: 622 cc with a postvoid residual of 375 cc or 60 percent. IMPRESSION: 60 percent postvoid residual from 622 cc prevoid volume. Normal urinary bladder mural thickness without nodularity septation or urolithiasis associated. Mildly enlarged prostate gland.
--- NOTE | 2017-02-23 13:40 | CP.PCM.PN ---
<Eloisa Crowe - Last Filed: 02/23/17 18:46> Subjective - Date & Time of Evaluation Date of Evaluation: 02/23/17 Time of Evaluation: 13:39 - Subjective Subjective: Patient seen and examined at bedside. Patient resting comfortably in bed. Patient still complaining of tenderness in the LEs b/l. Patient denies any complaints at this time. Pt denies F/C, CP/SOB, AP/N/V/D/C. Objective - Vital Signs/Intake and Output Vital Signs (last 24 hours): Temp Pulse Resp BP Pulse Ox 99.2 F 106 H 20 129/68 97 02/23/17 09:30 02/23/17 10:54 02/23/17 09:30 02/23/17 10:54 02/23/17 09:30 Intake and Output: 02/23/17 02/23/17 06:59 18:59 Intake Total 400 Output Total 300 Balance 100 - Medications Medications: Current Medications Amiodarone HCl (Cordarone) 400 mg PO BID [facility] Stop: 03/01/17 18:01 Last Admin: 02/23/17 10:55 Dose: 400 mg Amiodarone HCl (Cordarone) 200 mg PO BID [facility] Chlorthalidone (Hygroton) 25 mg PO DAILY [facility] Last Admin: 02/23/17 10:55 Dose: 25 mg Diltiazem HCl (Cardizem Cd) 360 mg PO DAILY [facility] Last Admin: 02/23/17 10:55 Dose: 360 mg Famotidine (Pepcid) 20 mg PO DAILY [facility] Last Admin: 02/23/17 10:55 Dose: 20 mg Hydralazine HCl (Apresoline) 10 mg IVP Q6H PRN PRN Reason: Systolic Blood Pressure Sodium Chloride (Sodium Chloride 0.9%) 1,000 mls @ 50 mls/hr IV .Q20H [facility] Last Admin: 02/23/17 05:16 Dose: Not Given Levetiracetam (Keppra) 500 mg PO BID [facility] Last Admin: 02/23/17 10:55 Dose: 500 mg Losartan Potassium (Cozaar) 100 mg PO DAILY [facility] Last Admin: 02/23/17 10:55 Dose: 100 mg Metoprolol Tartrate (Lopressor) 100 mg PO Q12 [facility] Last Admin: 02/23/17 10:55 Dose: 100 mg Ondansetron HCl (Zofran Inj) 4 mg IVP Q6 PRN PRN Reason: Nausea/Vomiting Oxycodone HCl (Oxycodone Immediate Release Tab) 5 mg PO Q6 PRN PRN Reason: Pain, severe (8-10) Last Admin: 02/21/17 18:21 Dose: 5 mg Warfarin Sodium (Coumadin) 5 mg PO 1800 [facility] Stop: 02/23/17 18:01 - Labs Labs: 02/23/17 06:29 02/23/17 06:29 PT 26.4 SECONDS (9.7-12.2) H 02/23/17 06:29 INR 2.3 02/23/17 06:29 APTT 31 SECONDS (21-34) 02/21/17 12:19 - Constitutional Appears: Non-toxic, No Acute Distress - Head Exam Head Exam: NORMAL INSPECTION - Eye Exam Eye Exam: EOMI - ENT Exam ENT Exam: Mucous Membranes Moist - Respiratory Exam Respiratory Exam: Clear to Ausculation Bilateral, NORMAL BREATHING PATTERN - Cardiovascular Exam Cardiovascular Exam: Irregular Rhythm, +S1, +S2. absent: Bradycardia, Tachycardia - GI/Abdominal Exam GI & Abdominal Exam: Soft, Normal Bowel Sounds. absent: Distended, Tenderness - Extremities Exam Extremities Exam: Tenderness (b/l to minimal palpation ) - Neurological Exam Neurological Exam: Alert, Awake - Psychiatric Exam Psychiatric exam: Normal Affect, Normal Mood - Skin Skin Exam: Dry, Intact, Warm Additional comments: LEs cool to touch with some warmth b/l Assessment and Plan - Assessment and Plan (Free Text) Assessment: 1). PAD: Hold coumadin dose tonight, INR is 3.2, F/U INR. Goal INR is 2.[address] Brown. He is on therapeutic Lovenox. Daughter Pura [phone] is aware that further surgical intervention ( Femoral Bypass) was not an option as the distal arteries in the bilateral legs could not support this procedure and there is possibility of amputation in the future. The plan for now is to control patient's pain and get the INR therapeutic to at least 2.5 and then discharge patient to home. 02/17: patient had a run of V Tach (5 beats) at 7:46 am. I spoke with Dr. Brown regarding this and he suggested replacing postassium. 20 of K dur was given and will be reassessed tomorrow. Repeat EKG was ordered. We will continue to monitor patient overnight. 2). Malignant HTN: Chlorthalidone, Cozaar, Hydralazine PRN, and Cardizem CD 360 mg 1x/day. Market Editor Dr. Brown 02/12/17 and he has increased Metoprolol to [address] Angiogram of the Abdomen/Pelvis 02/04/17 did NOT show any evidence of Renal Artery Stenosis 3). Hx Atrial Fibrillation: Coumadin 7.5 mg PO x 1 dose tonight, INR is 2.3, F /U INR 02/13/17. I spoke with Market Editor Dr. Brown and the goal INR is 2.5. He is on therapeutic Lovenox. Cardizem CD 360 mg PO 1x/day and Metoprolol 100 mg PO Q12H. His blood pressure is better under control. 4). Hx Seizure Disorder: as his LFTs are elevated, Neurology Consult was ordered with Dr. Onesimo Hogan to see if patient could be switched over to Keppra. Dr. Hogan has placed patient on Keppra 500 mg PO 2x/day 5). Hx Multiple CVAs: Crestor is being held considering the elevated LFTs and that his Lipid Profile is currently WNL. His Lipid profile and LFTs will need to be monitored by his PMD upon discharge 6). Elevated LFTs: could be secondary to the Dilantin and the Crestor. The Crestor is being held and the Dilantin switched over to Keppra. The LFTs will need to be monitored by his PMD upon discharge. LFT elevation is currently stable 7). Elevated WBC: there is NO fever and NO shift. Blood and Urine Culture are negative to date. 8). Prophylaxis: Pepcid, Dilaudid, Zofran, Percocet, Simethicone Pharmacy Student Leilani has already set up Home Visiting Nurse through [facility] for 6 visits (they will then determine if more is needed afterwards) which Daughter Pura will be paying out of pocket ($150 to $200 a visit). When INR is therapeutic (2.5), then patient can be discharged. Patient will need to follow-up in the [place] ([phone]) for INR check on to adjust Coumadin. Transportation voucher will need to be completed by Nurse. Disposition: * Awaiting insurance - forms were filled out and put in chart Thursday (02/20) * Pharmacy Student Leilani has already set up Home Visiting Nurse (they will then determine if more is needed afterwards) which Daughter Pura will be paying out of pocket ($150 to $200 a visit) prior to events noted above. This was clearly explained to the daughter prior to events noted above. * INR today 2.3, will maintain for tomorrow with Coumadin 5 mg. Patient will need to follow-up in the [place] ([phone]) for INR check to adjust the Coumadin and f/u with physician--> secured appointments for the patient to accomplish this. * Patient's family expressing fear with what will they do with the patient when he gets home. * We have tried the best of our ability to help this family given lack of insurance status in terms of visiting nursing options, outpatient physical therapy, and attempting to keep his medications affordable and family made aware of out patient/out of pocket costs during hospitalization. * Family has been explained that the severity of peripheral vascular disease and understand in the future amputation is an option. They also understand will need pain control. Patient is a high cardiac risk and would need to be followed by store administrative assistant for further workup as outpatient. * Pain management with PO medications (oxycodone 5 mg Q6 PRN) * Will continue to communicate with social work/case management/palliative care. <Alexandra Skinner V - Last Filed: 02/24/17 11:31> Objective - Vital Signs/Intake and Output Vital Signs (last 24 hours): Temp Pulse Resp BP Pulse Ox 98.6 F 105 H 18 152/78 H 99 02/24/17 07:35 02/24/17 10:52 02/24/17 07:35 02/24/17 10:52 02/24/17 07:35 Intake and Output: 02/24/17 02/24/17 06:59 18:59 Intake Total 650 Balance 650 - Medications Medications: Current Medications Amiodarone HCl (Cordarone) 400 mg PO BID [facility] Stop: 03/01/17 18:01 Last Admin: 02/24/17 10:53 Dose: 400 mg Amiodarone HCl (Cordarone) 200 mg PO BID [facility] Chlorthalidone (Hygroton) 25 mg PO DAILY [facility] Last Admin: 02/24/17 10:53 Dose: 25 mg Diltiazem HCl (Cardizem Cd) 360 mg PO DAILY [facility] Last Admin: 02/24/17 10:53 Dose: 360 mg Famotidine (Pepcid) 20 mg PO DAILY [facility] Last Admin: 02/24/17 10:53 Dose: 20 mg Finasteride (Proscar) 5 mg PO DAILY [facility] Last Admin: 02/24/17 10:54 Dose: 5 mg Hydralazine HCl (Apresoline) 10 mg IVP Q6H PRN PRN Reason: Systolic Blood Pressure Sodium Chloride (Sodium Chloride 0.9%) 1,000 mls @ 50 mls/hr IV .Q20H [facility] Last Admin: 02/24/17 10:56 Dose: 50 mls/hr Levetiracetam (Keppra) 500 mg PO BID [facility] Last Admin: 02/24/17 10:53 Dose: 500 mg Losartan Potassium (Cozaar) 100 mg PO DAILY [facility] Last Admin: 02/24/17 10:54 Dose: 100 mg Metoprolol Tartrate (Lopressor) 100 mg PO Q12 [facility] Last Admin: 02/24/17 10:54 Dose: 100 mg Ondansetron HCl (Zofran Inj) 4 mg IVP Q6 PRN PRN Reason: Nausea/Vomiting Oxycodone HCl (Oxycodone Immediate Release Tab) 5 mg PO Q6 PRN PRN Reason: Pain, severe (8-10) Last Admin: 02/24/17 10:54 Dose: 5 mg Tamsulosin HCl (Flomax) 0.4 mg PO DAILY [facility] Last Admin: 02/24/17 10:54 Dose: 0.4 mg - Labs Labs: 02/23/17 06:29 02/23/17 06:29 PT 29.5 SECONDS (9.7-12.2) H* 02/24/17 07:48 INR 2.5 02/24/17 07:48 APTT 31 SECONDS (21-34) 02/21/17 12:19 Attending/Attestation - Attestation I have personally seen and examined this patient.: Yes I have fully participated in the care of the patient.: Yes I have reviewed all pertinent clinical information, including history, physical exam and plan: Yes Notes (Text): This is late computer entry for 02/23/17. Patient seen, examined, and case discussed with day-time resident. Patient seen during rounds. patient reports pain over right lower extremity. Denies other acute complaints. Physical therapy reconsulted given Discussed with nephrology, unlikely patient has rhabdomyolosis, c/w gentle IV hydration; recommend for bladder scan. Patient has enlarged prostate and high post-void residual. Nephrology has started patient on Flomax and Finasteride to help with urinary retention Amiodarone taper builted in the the [facility]; advised by cardiology from note from 02/19/17-->amiodarone 400mg PO bid X 7days, and then Amiodarone 200mg PO bid there after. INR improved to 2.3. Ordered for given Coumadin 5mg PO tonight. No family at bedside. Assessment/Plan 1). severe PAD: Patient's INR is 2.3, Ordered for Coumadin 5mg PO tonight. Monitor INR. Market Editor Dr. Brown on the case help appreciated Vascular surgery Dr Kaur on the case help appreciated and the goal INR is 2.5-3.5. s/p 02/05/17 Femoral embolectomy via groin incision, right and left with intraoperative angiograms-->bilateral femoral embolectomy by groin incision and angiography-->clot removed by the right lower extremity; no clot from the left. My colleague Dr. Milton Vines had extensive conversation with Daughter Pura on 02/12/17. Both Dr. Brown and Dr. Kaur along with him explained that at this point the best option was to control the patient's pain as further surgical intervention (Femoral Bypass) was not an option as the distal arteries in the bilateral legs could not support this procedure. The subject of the possibility of amputation in the future was also discussed. The plan for now is to control patient's pain and get the INR therapeutic to at least 2.5 and then discharge patient to home. Pura expressed understanding. This conversation was had again on 02/19/17 with the daughter, Pura by myself who translated to patient's who is resistant to taking the patient home. Family understands that patient may need amputation in the future and he is high risk for procedure. PRN: Oxycodone 5mg PO 6 PRN severe pain Physical therapy reconsulted since starting narcotic pain medication last week 2). Malignant HTN-->controlled Chlorthalidone 25mg PO daily, Cozaar 100mg PO daily Hydralazine 10mg IV Q 6hour PRN Give above 160 SBP Cardizem CD 360 mg 1x/day Metoprolol 100mg PO Q bid. Market Editor Dr. Brown 02/12/[address] Angiogram of the Abdomen/Pelvis 02/04/17 did NOT show any evidence of Renal Artery Stenosis 3). Hx Atrial Fibrillation: INR: 2.3, Ordered for Coumadin 5mg PO tonight, off therapeutic Lovenox, f/u INR tomorrow Cardizem CD 360 mg PO 1x/day and Metoprolol 100 mg PO Q12H start to Amiodarone 400mg PO BID X 7days, Amiodarone 200mg PO BID thereafter 4). Hx Seizure Disorder: as his LFTs are elevated. Neurology Consult was ordered with Dr. Onesimo Hogan to see if patient could be switched over to Keppra. Dr. Hogan has placed patient on Keppra 500 mg PO 2x/day 5). Hx Multiple CVAs: Crestor is being held considering the elevated LFTs and that his Lipid Profile is currently WNL. His Lipid profile and LFTs will need to be monitored by his PMD upon discharge. 6). Elevated LFTs: could be secondary to the Dilantin and the Crestor. The Crestor is being held and the Dilantin switched over to Keppra. The LFTs will need to be monitored by his PMD upon discharge. LFT elevation is currently stable. Ordered for hepatitis panel which is negative. Abdominal US: shows adenomyosis of gallbladder and other findings; will need outpatient follow-up with GI. 7). Elevated WBC: there is NO fever and NO shift. Blood and Urine Culture are negative to date and final. White count is mildly elevated. Afebrile. 8) Elevated CPK: Gentle IV hydration. Nephrology consult not rhabdo; likely due to severe perpherial artery disease 9) Enlarged prostate, Urinary Retention. Renal US: high postvoid residual and enlarged prostate. Nephrology started on Flomax 0.4mg PO daily and Proscar 5mg PO daily 10). Prophylaxis: Pepcid, Dilaudid, Zofran, Coumadin Disposition: * Pharmacy Student Leilani has already set up Home Visiting Nurse (they will then determine if more is needed afterwards) which Daughter Pura will be paying out of pocket ($150 to $200 a visit). This was clearly explained to the daughter last week. However, when patient was set to be discharge on 02/19-->patient's and daughter were upset and reported they felt afraid to take the patient home and refused to take patient home. Case management is aware. Palliative care on board. Attempt to try to get insurance for the patient which daughter is to bring form to social security form on 02/20. Copy of the form is filled and placed in patient's chart. * Patient will need to follow-up in the [place] ([phone] ) for INR check to adjust the Coumadin and f/u with physician-->resident secured appointments for the patient to accomplish this. * The INR is therapeutic; however patient's family expressing fear with what will they do with the patient when he gets home and refuse to take him home. We have tried the best of our ability to help this family given lack of insurance status in terms of visiting nursing options, outpatient physical therapy, and attempting to keep his medications affordable and family made aware of out patient/out of pocket costs throughout hospitalization. Daughter is attempting to get insurance for patient for rehab option as last minute option. * Family has been explained that the severity of peripheral vascular disease and understand in the future amputation is an option. They also understand will need pain control. Patient is a high cardiac risk and would need to be followed by store administrative assistant for further workup as outpatient. * Pain management with PO medications-->reconsult PT eval * Patient to follow-up with case management and palliative care * Pastoral care consult * Elevated CPK-->started on gentle IV hydration * Patient medically stable to discharge. Discharge delayed per social stressors.
[2017-02-24] MEDS: Sodium Chloride 0.9% 1,000 ML IV SCH ×3 (00:45→21:21)
[2017-02-24 08:11] LABS: INR 2.5
--- NOTE | 2017-02-24 10:42 | CP.PCM.PN ---
<Eloisa Crowe - Last Filed: 02/24/17 17:39> Subjective - Date & Time of Evaluation Date of Evaluation: 02/24/17 Time of Evaluation: 10:38 - Subjective Subjective: Patient seen and examined at bedside. Patient resting comfortably in bed. Patient still complaining of tenderness in the LEs b/l. Patient denies any complaints at this time. Pt denies F/C, CP/SOB, AP/N/V/D/C. Objective - Vital Signs/Intake and Output Vital Signs (last 24 hours): Temp Pulse Resp BP Pulse Ox 98.6 F 89 18 128/68 99 02/24/17 07:35 02/24/17 07:35 02/24/17 07:35 02/24/17 07:35 02/24/17 07:35 Intake and Output: 02/24/17 02/24/17 06:59 18:59 Intake Total 650 Balance 650 - Medications Medications: Current Medications Amiodarone HCl (Cordarone) 400 mg PO BID [facility] Stop: 03/01/17 18:01 Last Admin: 02/23/17 18:00 Dose: 400 mg Amiodarone HCl (Cordarone) 200 mg PO BID [facility] Chlorthalidone (Hygroton) 25 mg PO DAILY [facility] Last Admin: 02/23/17 10:55 Dose: 25 mg Diltiazem HCl (Cardizem Cd) 360 mg PO DAILY [facility] Last Admin: 02/23/17 10:55 Dose: 360 mg Famotidine (Pepcid) 20 mg PO DAILY [facility] Last Admin: 02/23/17 10:55 Dose: 20 mg Finasteride (Proscar) 5 mg PO DAILY [facility] Hydralazine HCl (Apresoline) 10 mg IVP Q6H PRN PRN Reason: Systolic Blood Pressure Sodium Chloride (Sodium Chloride 0.9%) 1,000 mls @ 50 mls/hr IV .Q20H [facility] Last Admin: 02/24/17 00:45 Dose: Not Given Levetiracetam (Keppra) 500 mg PO BID [facility] Last Admin: 02/23/17 23:02 Dose: 500 mg Losartan Potassium (Cozaar) 100 mg PO DAILY [facility] Last Admin: 02/23/17 10:55 Dose: 100 mg Metoprolol Tartrate (Lopressor) 100 mg PO Q12 [facility] Last Admin: 02/23/17 23:02 Dose: 100 mg Ondansetron HCl (Zofran Inj) 4 mg IVP Q6 PRN PRN Reason: Nausea/Vomiting Oxycodone HCl (Oxycodone Immediate Release Tab) 5 mg PO Q6 PRN PRN Reason: Pain, severe (8-10) Last Admin: 02/21/17 18:21 Dose: 5 mg Tamsulosin HCl (Flomax) 0.4 mg PO DAILY [facility] - Labs Labs: 02/23/17 06:29 02/23/17 06:29 PT 29.5 SECONDS (9.7-12.2) H* 02/24/17 07:48 INR 2.5 02/24/17 07:48 APTT 31 SECONDS (21-34) 02/21/17 12:19 - Constitutional Appears: Non-toxic, No Acute Distress - Head Exam Head Exam: NORMAL INSPECTION - Eye Exam Eye Exam: EOMI - ENT Exam ENT Exam: Mucous Membranes Moist - Respiratory Exam Respiratory Exam: Clear to Ausculation Bilateral, NORMAL BREATHING PATTERN - Cardiovascular Exam Cardiovascular Exam: Irregular Rhythm, +S1, +S2. absent: Bradycardia, Tachycardia - GI/Abdominal Exam GI & Abdominal Exam: Soft, Normal Bowel Sounds. absent: Distended, Tenderness - Extremities Exam Extremities Exam: Tenderness (severe to light palpation ) Additional comments: Pedal pulses unable to be palpated. - Neurological Exam Neurological Exam: Alert, Awake - Psychiatric Exam Psychiatric exam: Normal Affect, Normal Mood - Skin Skin Exam: Dry, Warm (LEs have slightly decreased warmth ) Additional comments: blister of left anterior LE on wallace as before, has not ruptured and does not appear to be infected. second ruptured bullae on LLE above malleolus Assessment and Plan - Assessment and Plan (Free Text) Assessment: 1). PAD: Coumadin 7.5 tonight, INR is 2.5, F/U INR. Goal INR is 2.[address]er [address] Brown. He is on therapeutic Lovenox. Daughter Pura [phone] is aware that further surgical intervention ( Femoral Bypass) was not an option as the distal arteries in the bilateral legs could not support this procedure and there is possibility of amputation in the future. The plan for now is to control patient's pain and get the INR therapeutic to at least 2.5 and then discharge patient to home. 02/17: patient had a run of V Tach (5 beats) at 7:46 am. I spoke with Dr. Brown regarding this and he suggested replacing postassium. 20 of K dur was given and will be reassessed tomorrow. Repeat EKG was ordered. We will continue to monitor patient overnight. 02/24: f/u CPK for possible rhabdomyolysis, Bacitracin ointment for ruptured bullae of LLE. 2). Malignant HTN: Chlorthalidone, Cozaar, Hydralazine PRN, and Cardizem CD 360 mg 1x/day. [facility]zzly Worker Dr. Brown 02/12/17 and he has increased Metoprolol to [address] Angiogram of the Abdomen/Pelvis 02/04/17 did NOT show any evidence of Renal Artery Stenosis 3). Hx Atrial Fibrillation: Coumadin 7.5 mg PO x 1 dose tonight, INR is 2.3, F /U INR 02/13/17. I spoke with Grizzly Worker Dr. Brown and the goal INR is 2.5. He is on therapeutic Lovenox. Cardizem CD 360 mg PO 1x/day and Metoprolol 100 mg PO Q12H. His blood pressure is better under control. 4). Hx Seizure Disorder: as his LFTs are elevated, Neurology Consult was ordered with Dr. Onesimo Hogan to see if patient could be switched over to Keppra. Dr. Hogan has placed patient on Keppra 500 mg PO 2x/day 5). Hx Multiple CVAs: Crestor is being held considering the elevated LFTs and that his Lipid Profile is currently WNL. His Lipid profile and LFTs will need to be monitored by his PMD upon discharge 6). Elevated LFTs: could be secondary to the Dilantin and the Crestor. The Crestor is being held and the Dilantin switched over to Keppra. The LFTs will need to be monitored by his PMD upon discharge. LFT elevation is currently stable 7). Elevated WBC: there is NO fever and NO shift. Blood and Urine Culture are negative to date. 8). Prophylaxis: Pepcid, Dilaudid, Zofran, Percocet, Simethicone Public Improvement Inspector Leilani has already set up Home Visiting Nurse through [facility] for 6 visits (they will then determine if more is needed afterwards) which Daughter Pura will be paying out of pocket ($150 to $200 a visit). When INR is therapeutic (2.5), then patient can be discharged. Patient will need to follow-up in the [facility] ([phone]) for INR check on to adjust Coumadin. Transportation voucher will need to be completed by Nurse. Disposition: * Awaiting insurance - forms were filled out and put in chart Thursday (02/20) * Public Improvement Inspector Leilani has already set up Home Visiting Nurse (they will then determine if more is needed afterwards) which Daughter Pura will be paying out of pocket ($150 to $200 a visit) prior to events noted above. This was clearly explained to the daughter prior to events noted above. * INR today 2.3, will maintain for tomorrow with Coumadin 5 mg. Patient will need to follow-up in the [facility] ([phone]) for INR check to adjust the Coumadin and f/u with physician--> secured appointments for the patient to accomplish this. * Patient's family expressing fear with what will they do with the patient when he gets home. * We have tried the best of our ability to help this family given lack of insurance status in terms of visiting nursing options, outpatient physical therapy, and attempting to keep his medications affordable and family made aware of out patient/out of pocket costs during hospitalization. * Family has been explained that the severity of peripheral vascular disease and understand in the future amputation is an option. They also understand will need pain control. Patient is a high cardiac risk and would need to be followed by park interpretive specialist for further workup as outpatient. * Pain management with PO medications (oxycodone 5 mg Q6 PRN) * Will continue to communicate with social work/case management/palliative care. * Patient will need outpatient follow up for repeat CT of abdomen and pelvis in 3 07/10 abnormal abdominal US findings. <Unruly Vines - Last Filed: 02/24/17 18:55> Objective - Vital Signs/Intake and Output Vital Signs (last 24 hours): Temp Pulse Resp BP Pulse Ox 98.0 F 79 20 102/54 L 97 02/24/17 15:05 02/24/17 16:32 02/24/17 15:05 02/24/17 15:05 02/24/17 15:05 Intake and Output: 02/24/17 02/24/17 06:59 18:59 Intake Total 650 1150 Output Total 450 Balance 650 700 - Medications Medications: Current Medications Amiodarone HCl (Cordarone) 400 mg PO BID [facility] Stop: 03/01/17 18:01 Last Admin: 02/24/17 18:28 Dose: 400 mg Amiodarone HCl (Cordarone) 200 mg PO BID [facility] Bacitracin (Bacitracin) 1 ea TOP BID [facility] Last Admin: 02/24/17 18:28 Dose: 1 ea Chlorthalidone (Hygroton) 25 mg PO DAILY [facility] Last Admin: 02/24/17 10:53 Dose: 25 mg Diltiazem HCl (Cardizem Cd) 360 mg PO DAILY [facility] Last Admin: 02/24/17 10:53 Dose: 360 mg Famotidine (Pepcid) 20 mg PO DAILY [facility] Last Admin: 02/24/17 10:53 Dose: 20 mg Finasteride (Proscar) 5 mg PO DAILY [facility] Last Admin: 02/24/17 10:54 Dose: 5 mg Hydralazine HCl (Apresoline) 10 mg IVP Q6H PRN PRN Reason: Systolic Blood Pressure Sodium Chloride (Sodium Chloride 0.9%) 1,000 mls @ 50 mls/hr IV .Q20H [facility] Last Admin: 02/24/17 10:56 Dose: 50 mls/hr Levetiracetam (Keppra) 500 mg PO BID [facility] Last Admin: 02/24/17 18:28 Dose: 500 mg Losartan Potassium (Cozaar) 100 mg PO DAILY [facility] Last Admin: 02/24/17 10:54 Dose: 100 mg Metoprolol Tartrate (Lopressor) 100 mg PO Q12 [facility] Last Admin: 02/24/17 10:54 Dose: 100 mg Ondansetron HCl (Zofran Inj) 4 mg IVP Q6 PRN PRN Reason: Nausea/Vomiting Oxycodone HCl (Oxycodone Immediate Release Tab) 5 mg PO Q6 PRN PRN Reason: Pain, severe (8-10) Last Admin: 02/24/17 10:54 Dose: 5 mg Tamsulosin HCl (Flomax) 0.4 mg PO DAILY [facility] Last Admin: 02/24/17 10:54 Dose: 0.4 mg - Labs Labs: 02/24/17 14:08 02/24/17 14:08 PT 29.5 SECONDS (9.7-12.2) H* 02/24/17 07:48 INR 2.5 02/24/17 07:48 APTT 31 SECONDS (21-34) 02/21/17 12:19 Attending/Attestation - Attestation I have personally seen and examined this patient.: Yes I have fully participated in the care of the patient.: Yes I have reviewed all pertinent clinical information, including history, physical exam and plan: Yes Notes (Text): 02/24/17 18:48 Patient was seen and examined at 11:15 AM Exam, Assessment and Plan were thoroughly gone over with the resident Please also note on exam: Bilateral groin surgical site (s/p femoral thrombectomies): no signs of cellulitis, no wound dehiscence, no exudate Bilateral lower legs dark small bullae I spoke with Vascular Dr. Kaur and he would like to keep in the surgical mehran for now. I spoke with Public Improvement Inspector Caridad: patient will be in-patient until his Medicaid application is approved and once it is, then he will be eligible for [facility]. Daughter Pura explains that she and her Mom will be dropping required paperwork at Medicaid office later today and if there is a delay in approval she states that she will be requesting assistance from [facility] I again explained to both Daughter Pura and of patient that rehab will not cure the patient's PAD and that the rehab may help him get stronger. However , the likelyhood that he would need amputations of both legs was very high. Daughter Pura stated that she was going to get a second opinion from a Vascular Holistic Physician that she found on the internet. Unruly Vines D.O.
[2017-02-24] MEDS: diltiaZEM 180 mg/24 Hours CD Cap PO SCH (10:53)
[2017-02-24] MEDS: oxyCODONE 5 mg Immediate Release Tab PO PRN ×2 (10:54→21:25)
[2017-02-24] MEDS: Bacitracin 500 Units/gm Oint Foilpak UD TOP SCH ×2 (12:30→18:28)
[2017-02-24 14:15] LABS: BASO % 0.2 % (0.0-2.0); EOS % 0.4 % (0.0-4.0); HEMATOCRIT 32.9 % (35.0-51.0); LYMPH # 0.9 K/uL (1.0-4.3); LYMPH % 10.3 % (20.0-40.0); MEAN CELL VOLUME 77.8 fL (80.0-94.0); MEAN CORPUSCULAR HEMOGLOBIN 26.8 pg (27.0-31.0); MEAN CORPUSCULAR HGB CONC 34.4 g/dL (33.0-37.0); MEAN PLATELET VOLUME 7.4 fL (7.2-11.7); MONO # 0.5 K/uL (0.0-0.8); MONO % 6.1 % (0.0-10.0); RED CELL DISTRIBUTION WIDTH 15.8 % (11.5-14.5); WHITE BLOOD COUNT 8.9 K/uL (4.8-10.8)
[2017-02-24 14:34] LABS: CHLORIDE 101 mmol/L (98-107)
[2017-02-24 14:35] LABS: SODIUM 132 mmol/L (132-148)
[2017-02-24 14:36] LABS: POTASSIUM 3.7 mmol/L (3.6-5.2)
[2017-02-24 14:38] LABS: ALB/GLOB RATIO 0.8 (1.0-2.1); ALKALINE PHOSPHATASE 98 U/L (38-126); ALT/SGPT 114 U/L (21-72); AST/SGOT 68 U/L (17-59); BILIRUBIN,TOTAL 0.4 mg/dL (0.2-1.3); BLOOD UREA NITROGEN 20 mg/dL (9-20); CARBON DIOXIDE 21 mmol/L (22-30); GFR AFRICAN-AMERICAN > 60; GLUCOSE,RANDOM 125 mg/dL (75-110); TOTAL PROTEIN 6.2 g/dL (6.3-8.3)
[2017-02-24 14:39] LABS: CALCIUM 7.8 mg/dl (8.6-10.4); MAGNESIUM 1.8 mg/dL (1.6-2.3); PHOSPHOROUS 3.1 mg/dL (2.5-4.5)
--- NOTE | 2017-02-24 14:51 | CP.PCM.PN ---
<Umer Turk - Last Filed: 02/24/17 16:46> Subjective - Date & Time of Evaluation Date of Evaluation: 02/24/17 Time of Evaluation: 14:47 - Subjective Subjective: PGY-[address] Dias's Nephrology Service: Pt seen and examined at bedside. Patient found lying in bed, in no acute distress. He c/o of bilateral pain in his lower extremities, that is "the same as yesterday." He denies additional site of muscular/joint pain. He reports increased urination today, but denies dysuria. Objective - Vital Signs/Intake and Output Vital Signs (last 24 hours): Temp Pulse Resp BP Pulse Ox 98.6 F 105 H 18 152/78 H 99 02/24/17 07:35 02/24/17 10:52 02/24/17 07:35 02/24/17 10:52 02/24/17 07:35 Intake and Output: 02/24/17 02/24/17 06:59 18:59 Intake Total 650 Balance 650 - Medications Medications: Current Medications Amiodarone HCl (Cordarone) 400 mg PO BID [facility] Stop: 03/01/17 18:01 Last Admin: 02/24/17 10:53 Dose: 400 mg Amiodarone HCl (Cordarone) 200 mg PO BID [facility] Bacitracin (Bacitracin) 1 ea TOP BID [facility] Last Admin: 02/24/17 12:30 Dose: 1 ea Chlorthalidone (Hygroton) 25 mg PO DAILY [facility] Last Admin: 02/24/17 10:53 Dose: 25 mg Diltiazem HCl (Cardizem Cd) 360 mg PO DAILY [facility] Last Admin: 02/24/17 10:53 Dose: 360 mg Famotidine (Pepcid) 20 mg PO DAILY [facility] Last Admin: 02/24/17 10:53 Dose: 20 mg Finasteride (Proscar) 5 mg PO DAILY [facility] Last Admin: 02/24/17 10:54 Dose: 5 mg Hydralazine HCl (Apresoline) 10 mg IVP Q6H PRN PRN Reason: Systolic Blood Pressure Sodium Chloride (Sodium Chloride 0.9%) 1,000 mls @ 50 mls/hr IV .Q20H [facility] Last Admin: 02/24/17 10:56 Dose: 50 mls/hr Levetiracetam (Keppra) 500 mg PO BID [facility] Last Admin: 02/24/17 10:53 Dose: 500 mg Losartan Potassium (Cozaar) 100 mg PO DAILY [facility] Last Admin: 02/24/17 10:54 Dose: 100 mg Metoprolol Tartrate (Lopressor) 100 mg PO Q12 [facility] Last Admin: 02/24/17 10:54 Dose: 100 mg Ondansetron HCl (Zofran Inj) 4 mg IVP Q6 PRN PRN Reason: Nausea/Vomiting Oxycodone HCl (Oxycodone Immediate Release Tab) 5 mg PO Q6 PRN PRN Reason: Pain, severe (8-10) Last Admin: 02/24/17 10:54 Dose: 5 mg Tamsulosin HCl (Flomax) 0.4 mg PO DAILY [facility] Last Admin: 02/24/17 10:54 Dose: 0.4 mg Warfarin Sodium (Coumadin) 7.5 mg PO 1800 [facility] Stop: 02/24/17 18:01 - Labs Labs: 02/24/17 14:08 02/24/17 14:08 PT 29.5 SECONDS (9.7-12.2) H* 02/24/17 07:48 INR 2.5 02/24/17 07:48 APTT 31 SECONDS (21-34) 02/21/17 12:19 - Additional Findings Additional findings: - Constitutional Appears: Non-toxic, No Acute Distress - Head Exam Head Exam: NORMAL INSPECTION - Eye Exam Eye Exam: Normal appearance. absent: Scleral icterus - ENT Exam ENT Exam: Mucous Membranes Moist - Neck Exam Neck exam: Negative for: Lymphadenopathy - Respiratory Exam Respiratory Exam: Clear to Auscultation Bilateral, NORMAL BREATHING PATTERN. absent: Rales, Rhonchi, Wheezes, Respiratory Distress - Cardiovascular Exam Cardiovascular Exam: +S1, +S2 - GI/Abdominal Exam GI & Abdominal Exam: Soft. absent: Tenderness - Exam Exam: absent: Bladder Distension - Extremities Exam Additional comments: Bilateral lower leg tenderness to palpation Chronic venous skin changes decreased DP/PT pulses bilaterally - Neurological Exam Neurological exam: Alert, Oriented - Psychiatric Exam Psychiatric exam: Normal Affect, Normal Mood - Skin Skin Exam: Normal Color, Warm Assessment and Plan - Assessment and Plan (Free Text) Plan: (1) Elevated CK Assessment and Plan: Etiology unclear; no inciting med identified; possibility of myalgia/myositis due to an unknown condition; alternatively, patient's severe PAD may be causing some degree of muscle necrosis; Otherwise, relatively low degree of CK elevation, should not result in any renal injury; -closely monitor meds that may further increase CK level -agree with IVF, should encourage patient to avoid dehydration -TSH/Free T4: WNL - 25-OH vit D level: 25 Status: Acute (2) HTN (hypertension) Assessment and Plan: BP controlled on 4 agents including a diuretic -metoprolol 100mg PO Q12H -cardizem 360 mg PO Daily -losartan 100mg PO daily -chlorthalidone 25mg PO Daily should check nohemi/renin level to look for secondary cause of htn NS @ 50cc/hr Status: Chronic (3) CKD (chronic kidney disease) Assessment and Plan: Mild CKD with no significant albuminuria -BUN/Cr 20/1.2, stable from admission -US Bladder: 60 % post-residual from 622 cc prevoid volume. Normal urinary bladder mural thickness w/o nodularity septation or urolithiasis associated. Mildly enlarged prostate gland. (see full report) Status: Chronic Discussed with Umer An PGY-1 <Luis Dias - Last Filed: 02/25/17 09:17> Objective - Vital Signs/Intake and Output Vital Signs (last 24 hours): Temp Pulse Resp BP Pulse Ox 98.0 F 96 H 20 105/67 96 02/25/17 08:55 02/25/17 08:55 02/25/17 08:55 02/25/17 08:55 02/25/17 08:55 Intake and Output: 02/25/17 02/25/17 06:59 18:59 Intake Total 400 Balance 400 - Medications Medications: Current Medications Amiodarone HCl (Cordarone) 400 mg PO BID [facility] Stop: 03/01/17 18:01 Last Admin: 02/24/17 18:28 Dose: 400 mg Amiodarone HCl (Cordarone) 200 mg PO BID [facility] Bacitracin (Bacitracin) 1 ea TOP BID [facility] Last Admin: 02/24/17 18:28 Dose: 1 ea Chlorthalidone (Hygroton) 25 mg PO DAILY [facility] Last Admin: 02/24/17 10:53 Dose: 25 mg Diltiazem HCl (Cardizem Cd) 360 mg PO DAILY [facility] Last Admin: 02/24/17 10:53 Dose: 360 mg Famotidine (Pepcid) 20 mg PO DAILY [facility] Last Admin: 02/24/17 10:53 Dose: 20 mg Finasteride (Proscar) 5 mg PO DAILY [facility] Last Admin: 02/24/17 10:54 Dose: 5 mg Hydralazine HCl (Apresoline) 10 mg IVP Q6H PRN PRN Reason: Systolic Blood Pressure Sodium Chloride (Sodium Chloride 0.9%) 1,000 mls @ 50 mls/hr IV .Q20H [facility] Last Admin: 02/25/17 06:07 Dose: 50 mls/hr Levetiracetam (Keppra) 500 mg PO BID [facility] Last Admin: 02/24/17 18:28 Dose: 500 mg Losartan Potassium (Cozaar) 100 mg PO DAILY [facility] Last Admin: 02/24/17 10:54 Dose: 100 mg Metoprolol Tartrate (Lopressor) 100 mg PO Q12 [facility] Last Admin: 02/24/17 21:20 Dose: 100 mg Ondansetron HCl (Zofran Inj) 4 mg IVP Q6 PRN PRN Reason: Nausea/Vomiting Oxycodone HCl (Oxycodone Immediate Release Tab) 5 mg PO Q6 PRN PRN Reason: Pain, severe (8-10) Last Admin: 02/24/17 21:25 Dose: 5 mg Tamsulosin HCl (Flomax) 0.4 mg PO DAILY [facility] Last Admin: 02/24/17 10:54 Dose: 0.4 mg Warfarin Sodium (Coumadin) 5 mg PO 1800 [facility] Stop: 02/25/17 18:01 - Labs Labs: 02/25/17 06:55 02/25/17 06:55 PT 33.8 SECONDS (9.7-12.2) H* 02/25/17 06:55 INR 2.9 02/25/17 06:55 APTT 31 SECONDS (21-34) 02/21/17 12:19 Assessment and Plan (1) Elevated CK Status: Acute (2) HTN (hypertension) Status: Chronic (3) CKD (chronic kidney disease) Status: Chronic Attending/Attestation - Attestation I have personally seen and examined this patient.: Yes I have fully participated in the care of the patient.: Yes I have reviewed all pertinent clinical information, including history, physical exam and plan: Yes Notes (Text): Patient seen and examined; I agree with the resident's note as above with the following additions/edits: Patient admitted with severe PAD affecting bilateral LE, not amenable to any intervention; nephrology following for CKD; Started on flomax and finasteride for marked post-void residual volume on bladder US, may be causing reflux nephropathy; HTN controlled; continue current meds; Continue gentle IVF for mildly elevated CK (improving);
--- NOTE | 2017-02-24 15:07 | CARD ---
APPROVED REPORT EKG Measurement Heart [id number] <Conclusion> Atrial fibrillation Right bundle branch block Left anterior fascicular block Bifascicular block Moderate voltage criteria for LVH, may be normal variant T wave abnormality, consider lateral ischemia Abnormal ECG
--- NOTE | 2017-02-24 19:13 | CP.PCM.PN ---
Subjective - Date & Time of Evaluation Date of Evaluation: 02/23/17 Time of Evaluation: 16:00 - Subjective Subjective: still has bilateral feet discomfort episode of NSVT noted Objective - Vital Signs/Intake and Output Vital Signs (last 24 hours): Temp Pulse Resp BP Pulse Ox 98.0 F 79 20 102/54 L 97 02/24/17 15:05 02/24/17 16:32 02/24/17 15:05 02/24/17 15:05 02/24/17 15:05 Intake and Output: 02/24/17 02/25/17 18:59 06:59 Intake Total 1150 Output Total 450 Balance 700 - Medications Medications: Current Medications Amiodarone HCl (Cordarone) 400 mg PO BID [facility] Stop: 03/01/17 18:01 Last Admin: 02/24/17 18:28 Dose: 400 mg Amiodarone HCl (Cordarone) 200 mg PO BID [facility] Bacitracin (Bacitracin) 1 ea TOP BID [facility] Last Admin: 02/24/17 18:28 Dose: 1 ea Chlorthalidone (Hygroton) 25 mg PO DAILY [facility] Last Admin: 02/24/17 10:53 Dose: 25 mg Diltiazem HCl (Cardizem Cd) 360 mg PO DAILY [facility] Last Admin: 02/24/17 10:53 Dose: 360 mg Famotidine (Pepcid) 20 mg PO DAILY [facility] Last Admin: 02/24/17 10:53 Dose: 20 mg Finasteride (Proscar) 5 mg PO DAILY [facility] Last Admin: 02/24/17 10:54 Dose: 5 mg Hydralazine HCl (Apresoline) 10 mg IVP Q6H PRN PRN Reason: Systolic Blood Pressure Sodium Chloride (Sodium Chloride 0.9%) 1,000 mls @ 50 mls/hr IV .Q20H [facility] Last Admin: 02/24/17 10:56 Dose: 50 mls/hr Levetiracetam (Keppra) 500 mg PO BID [facility] Last Admin: 02/24/17 18:28 Dose: 500 mg Losartan Potassium (Cozaar) 100 mg PO DAILY [facility] Last Admin: 02/24/17 10:54 Dose: 100 mg Metoprolol Tartrate (Lopressor) 100 mg PO Q12 [facility] Last Admin: 02/24/17 10:54 Dose: 100 mg Ondansetron HCl (Zofran Inj) 4 mg IVP Q6 PRN PRN Reason: Nausea/Vomiting Oxycodone HCl (Oxycodone Immediate Release Tab) 5 mg PO Q6 PRN PRN Reason: Pain, severe (8-10) Last Admin: 02/24/17 10:54 Dose: 5 mg Tamsulosin HCl (Flomax) 0.4 mg PO DAILY [facility] Last Admin: 02/24/17 10:54 Dose: 0.4 mg - Labs Labs: 02/24/17 14:08 02/24/17 14:08 PT 29.5 SECONDS (9.7-12.2) H* 02/24/17 07:48 INR 2.5 02/24/17 07:48 APTT 31 SECONDS (21-34) 02/21/17 12:19 - Constitutional Appears: Well - Head Exam Head Exam: ATRAUMATIC, NORMAL INSPECTION, NORMOCEPHALIC - Eye Exam Eye Exam: EOMI, Normal appearance, PERRL Pupil Exam: NORMAL ACCOMODATION, PERRL - ENT Exam ENT Exam: Mucous Membranes Moist, Normal Exam - Neck Exam Neck Exam: Full ROM, Normal Inspection. absent: Lymphadenopathy - Respiratory Exam Respiratory Exam: Clear to Ausculation Bilateral, NORMAL BREATHING PATTERN - Cardiovascular Exam Cardiovascular Exam: Irregular Rhythm, +S1, +S2, Murmur - GI/Abdominal Exam GI & Abdominal Exam: Soft, Normal Bowel Sounds. absent: Tenderness - Extremities Exam Extremities Exam: Full ROM, Normal Capillary Refill, Normal Inspection. absent : Joint Swelling, Pedal Edema - Back Exam Back Exam: NORMAL INSPECTION - Neurological Exam Neurological Exam: Alert, Awake, CN II-XII Intact, Oriented x3 - Psychiatric Exam Psychiatric exam: Normal Affect, Normal Mood - Skin Skin Exam: Dry, Intact, Normal Color, Warm Assessment and Plan (1) NSVT (nonsustained ventricular tachycardia) Assessment & Plan: monitor lytes will titrate BB up if recurrent episodes Status: Acute (2) Atrial fibrillation Assessment & Plan: rate controlled on amio, bb, ccb on OAC with therapeutic INR Status: Acute (3) HTN (hypertension), malignant Assessment & Plan: bp stable Status: Acute (4) Critical lower limb ischemia Status: Acute
--- NOTE | 2017-02-24 19:14 | CP.PCM.PN ---
Subjective - Date & Time of Evaluation Date of Evaluation: 02/24/17 Time of Evaluation: 19:14 - Subjective Subjective: c/o feet discomfort rhythm stable Objective - Vital Signs/Intake and Output Vital Signs (last 24 hours): Temp Pulse Resp BP Pulse Ox 98.0 F 79 20 102/54 L 97 02/24/17 15:05 02/24/17 16:32 02/24/17 15:05 02/24/17 15:05 02/24/17 15:05 Intake and Output: 02/24/17 02/25/17 18:59 06:59 Intake Total 1150 Output Total 450 Balance 700 - Medications Medications: Current Medications Amiodarone HCl (Cordarone) 400 mg PO BID [facility] Stop: 03/01/17 18:01 Last Admin: 02/24/17 18:28 Dose: 400 mg Amiodarone HCl (Cordarone) 200 mg PO BID [facility] Bacitracin (Bacitracin) 1 ea TOP BID [facility] Last Admin: 02/24/17 18:28 Dose: 1 ea Chlorthalidone (Hygroton) 25 mg PO DAILY [facility] Last Admin: 02/24/17 10:53 Dose: 25 mg Diltiazem HCl (Cardizem Cd) 360 mg PO DAILY [facility] Last Admin: 02/24/17 10:53 Dose: 360 mg Famotidine (Pepcid) 20 mg PO DAILY [facility] Last Admin: 02/24/17 10:53 Dose: 20 mg Finasteride (Proscar) 5 mg PO DAILY [facility] Last Admin: 02/24/17 10:54 Dose: 5 mg Hydralazine HCl (Apresoline) 10 mg IVP Q6H PRN PRN Reason: Systolic Blood Pressure Sodium Chloride (Sodium Chloride 0.9%) 1,000 mls @ 50 mls/hr IV .Q20H [facility] Last Admin: 02/24/17 10:56 Dose: 50 mls/hr Levetiracetam (Keppra) 500 mg PO BID [facility] Last Admin: 02/24/17 18:28 Dose: 500 mg Losartan Potassium (Cozaar) 100 mg PO DAILY [facility] Last Admin: 02/24/17 10:54 Dose: 100 mg Metoprolol Tartrate (Lopressor) 100 mg PO Q12 [facility] Last Admin: 02/24/17 10:54 Dose: 100 mg Ondansetron HCl (Zofran Inj) 4 mg IVP Q6 PRN PRN Reason: Nausea/Vomiting Oxycodone HCl (Oxycodone Immediate Release Tab) 5 mg PO Q6 PRN PRN Reason: Pain, severe (8-10) Last Admin: 02/24/17 10:54 Dose: 5 mg Tamsulosin HCl (Flomax) 0.4 mg PO DAILY [facility] Last Admin: 02/24/17 10:54 Dose: 0.4 mg - Labs Labs: 02/24/17 14:08 02/24/17 14:08 PT 29.5 SECONDS (9.7-12.2) H* 02/24/17 07:48 INR 2.5 02/24/17 07:48 APTT 31 SECONDS (21-34) 02/21/17 12:19 - Constitutional Appears: Well - Head Exam Head Exam: ATRAUMATIC, NORMAL INSPECTION, NORMOCEPHALIC - Eye Exam Eye Exam: EOMI, Normal appearance, PERRL Pupil Exam: NORMAL ACCOMODATION, PERRL - ENT Exam ENT Exam: Mucous Membranes Moist, Normal Exam - Neck Exam Neck Exam: Full ROM, Normal Inspection. absent: Lymphadenopathy - Respiratory Exam Respiratory Exam: Clear to Ausculation Bilateral, NORMAL BREATHING PATTERN - Cardiovascular Exam Cardiovascular Exam: Irregular Rhythm, +S1, +S2, Murmur - GI/Abdominal Exam GI & Abdominal Exam: Soft, Normal Bowel Sounds. absent: Tenderness - Extremities Exam Extremities Exam: Full ROM, Pedal Edema. absent: Joint Swelling Additional comments: cold feet - Back Exam Back Exam: NORMAL INSPECTION - Neurological Exam Neurological Exam: Alert, Awake, CN II-XII Intact, Oriented x3 - Psychiatric Exam Psychiatric exam: Normal Affect, Normal Mood - Skin Skin Exam: Dry, Intact, Normal Color, Warm Assessment and Plan (1) NSVT (nonsustained ventricular tachycardia) Assessment & Plan: rhythm stable on amiodarone monitor lytes K/Mg Status: Acute (2) Atrial fibrillation Assessment & Plan: rate controlled on BB, CCB and amiodarone cont OAC Status: Acute (3) HTN (hypertension), malignant Assessment & Plan: bp stable cont current meds for now Status: Acute (4) Critical lower limb ischemia Assessment & Plan: poor prognosis vascular surgery on board Status: Acute
[2017-02-25] MEDS: Sodium Chloride 0.9% 1,000 ML IV SCH (06:07)
--- NOTE | 2017-02-25 07:04 | CP.PCM.PN ---
<Eloisa Crowe - Last Filed: 02/25/17 18:25> Subjective - Date & Time of Evaluation Date of Evaluation: 02/25/17 Time of Evaluation: 07:04 - Subjective Subjective: Patient seen and examined at bedside. Patient resting comfortably in bed and sleeping. Patient still complaining of tenderness in the LEs b/l. Patient denies any complaints at this time. Pt denies F/C, CP/SOB, AP/N/V/D/C. Objective - Vital Signs/Intake and Output Vital Signs (last 24 hours): Temp Pulse Resp BP Pulse Ox 97.9 F 82 20 120/74 97 02/25/17 04:25 02/25/17 04:25 02/25/17 04:25 02/25/17 04:25 02/24/17 23:30 Intake and Output: 02/25/17 02/25/17 06:59 18:59 Intake Total 400 Balance 400 - Medications Medications: Current Medications Amiodarone HCl (Cordarone) 400 mg PO BID [facility] Stop: 03/01/17 18:01 Last Admin: 02/24/17 18:28 Dose: 400 mg Amiodarone HCl (Cordarone) 200 mg PO BID [facility] Bacitracin (Bacitracin) 1 ea TOP BID [facility] Last Admin: 02/24/17 18:28 Dose: 1 ea Chlorthalidone (Hygroton) 25 mg PO DAILY [facility] Last Admin: 02/24/17 10:53 Dose: 25 mg Diltiazem HCl (Cardizem Cd) 360 mg PO DAILY [facility] Last Admin: 02/24/17 10:53 Dose: 360 mg Famotidine (Pepcid) 20 mg PO DAILY [facility] Last Admin: 02/24/17 10:53 Dose: 20 mg Finasteride (Proscar) 5 mg PO DAILY [facility] Last Admin: 02/24/17 10:54 Dose: 5 mg Hydralazine HCl (Apresoline) 10 mg IVP Q6H PRN PRN Reason: Systolic Blood Pressure Sodium Chloride (Sodium Chloride 0.9%) 1,000 mls @ 50 mls/hr IV .Q20H [facility] Last Admin: 02/25/17 06:07 Dose: 50 mls/hr Levetiracetam (Keppra) 500 mg PO BID [facility] Last Admin: 02/24/17 18:28 Dose: 500 mg Losartan Potassium (Cozaar) 100 mg PO DAILY [facility] Last Admin: 02/24/17 10:54 Dose: 100 mg Metoprolol Tartrate (Lopressor) 100 mg PO Q12 [facility] Last Admin: 02/24/17 21:20 Dose: 100 mg Ondansetron HCl (Zofran Inj) 4 mg IVP Q6 PRN PRN Reason: Nausea/Vomiting Oxycodone HCl (Oxycodone Immediate Release Tab) 5 mg PO Q6 PRN PRN Reason: Pain, severe (8-10) Last Admin: 02/24/17 21:25 Dose: 5 mg Tamsulosin HCl (Flomax) 0.4 mg PO DAILY [facility] Last Admin: 02/24/17 10:54 Dose: 0.4 mg - Labs Labs: 02/24/17 14:08 02/24/17 14:08 PT 29.5 SECONDS (9.7-12.2) H* 02/24/17 07:48 INR 2.5 02/24/17 07:48 APTT 31 SECONDS (21-34) 02/21/17 12:19 - Constitutional Appears: Non-toxic, No Acute Distress - Head Exam Head Exam: NORMAL INSPECTION - Eye Exam Eye Exam: EOMI - ENT Exam ENT Exam: Mucous Membranes Moist - Respiratory Exam Respiratory Exam: Clear to Ausculation Bilateral, NORMAL BREATHING PATTERN - Cardiovascular Exam Cardiovascular Exam: Irregular Rhythm, +S1, +S2. absent: Bradycardia, Tachycardia - GI/Abdominal Exam GI & Abdominal Exam: Soft, Normal Bowel Sounds. absent: Tenderness - Extremities Exam Extremities Exam: Tenderness (b/l with light palpation ) Additional comments: Pedal pulses unable to be palpated Bullae of left anterior LE on wallace as before, has not ruptured and does not appear to be infected. second ruptured bullae on LLE above malleolus - Psychiatric Exam Psychiatric exam: Normal Affect, Normal Mood - Skin Skin Exam: Dry, Normal Color, Warm (LEs with slightly decreased warmth ) Assessment and Plan - Assessment and Plan (Free Text) Assessment: 1). PAD: Coumadin 5 tonight, INR is 2.9, F/U INR. Goal INR is 2.5 as per Digital Advertising Specialist Dr. Brown. He is on therapeutic Lovenox. Dr. Kaur would like to keep the mehran for now. Daughter Pura [phone] is aware that further surgical intervention ( Femoral Bypass) was not an option as the distal arteries in the bilateral legs could not support this procedure and there is possibility of amputation in the future. The plan for now is to control patient's pain and get the INR therapeutic to at least 2.5 and then discharge patient to home. 02/17: patient had a run of V Tach (5 beats) at 7:46 am. I spoke with Dr. Brown regarding this and he suggested replacing postassium. 20 of K dur was given and will be reassessed tomorrow. Repeat EKG was ordered. We will continue to monitor patient overnight. 02/24: elevated CPK, possible rhabdomyolysis, started gentle hydration. Bacitracin ointment and wound care consult for ruptured bullae of LLE. 2). Malignant HTN: Chlorthalidone, Cozaar, Hydralazine PRN, and Cardizem CD 360 mg 1x/day. Digital Advertising Specialist Dr. Brown 02/12/17 and he has increased Metoprolol to [address] Angiogram of the Abdomen/Pelvis 02/04/17 did NOT show any evidence of Renal Artery Stenosis 3). Hx Atrial Fibrillation: Coumadin 7.5 mg PO x 1 dose tonight, INR is 2.3, F /U INR 02/13/17. I spoke with Digital Advertising Specialist Dr. Brown and the goal INR is 2.5. He is on therapeutic Lovenox. Cardizem CD 360 mg PO 1x/day and Metoprolol 100 mg PO Q12H. His blood pressure is better under control. 4). Hx Seizure Disorder: as his LFTs are elevated, Neurology Consult was ordered with Dr. Onesimo Hogan to see if patient could be switched over to Keppra. Dr. Hogan has placed patient on Keppra 500 mg PO 2x/day 5). Hx Multiple CVAs: Crestor is being held considering the elevated LFTs and that his Lipid Profile is currently WNL. His Lipid profile and LFTs will need to be monitored by his PMD upon discharge 6). Elevated LFTs: could be secondary to the Dilantin and the Crestor. The Crestor is being held and the Dilantin switched over to Keppra. The LFTs will need to be monitored by his PMD upon discharge. LFT elevation is currently stable 7). Elevated WBC: there is NO fever and NO shift. Blood and Urine Culture are negative to date. 8.) Splenic hemangioma: as seen on US, will need follow up CT in 3 months. 9.) BPH 10.) Prophylaxis: Pepcid, Dilaudid, Zofran, Percocet, Simethicone Embossing Unit Operator Leilani has already set up Home Visiting Nurse through [facility] for 6 visits (they will then determine if more is needed afterwards) which Daughter Pura will be paying out of pocket ($150 to $200 a visit). When INR is therapeutic (2.5), then patient can be discharged. Patient will need to follow-up in the [facility] ([phone]) for INR check on to adjust Coumadin. Transportation voucher will need to be completed by Nurse. Disposition: * Awaiting insurance - forms were filled out and put in chart Thursday (02/20) * Embossing Unit Operator Leilani has already set up Home Visiting Nurse (they will then determine if more is needed afterwards) which Daughter Pura will be paying out of pocket ($150 to $200 a visit) prior to events noted above. This was clearly explained to the daughter prior to events noted above. * INR today 2.3, will maintain for tomorrow with Coumadin 5 mg. Patient will need to follow-up in the [facility] ([phone]) for INR check to adjust the Coumadin and f/u with physician--> secured appointments for the patient to accomplish this. * Patient's family expressing fear with what will they do with the patient when he gets home. * We have tried the best of our ability to help this family given lack of insurance status in terms of visiting nursing options, outpatient physical therapy, and attempting to keep his medications affordable and family made aware of out patient/out of pocket costs during hospitalization. * Family has been explained that the severity of peripheral vascular disease and understand in the future amputation is an option. They also understand will need pain control. Patient is a high cardiac risk and would need to be followed by cloth dyeing range tender for further workup as outpatient. * Pain management with PO medications (oxycodone 5 mg Q6 PRN) * Will continue to communicate with social work/case management/palliative care. * Patient will need outpatient follow up for repeat CT of abdomen and pelvis in 3 mon 07/10 abnormal abdominal US findings. <Unruly Vines - Last Filed: 02/25/17 20:03> Objective - Vital Signs/Intake and Output Vital Signs (last 24 hours): Temp Pulse Resp BP Pulse Ox 98.1 F 105 H 20 108/66 99 02/25/17 15:15 02/25/17 17:00 02/25/17 15:15 02/25/17 15:15 02/25/17 15:15 Intake and Output: 02/25/17 02/26/17 18:59 06:59 Intake Total 800 Balance 800 - Medications Medications: Current Medications Amiodarone HCl (Cordarone) 400 mg PO BID [facility] Stop: 03/01/17 18:01 Last Admin: 02/25/17 17:43 Dose: 400 mg Amiodarone HCl (Cordarone) 200 mg PO BID [facility] Bacitracin (Bacitracin) 1 ea TOP BID [facility] Last Admin: 02/25/17 17:43 Dose: 1 ea Chlorthalidone (Hygroton) 25 mg PO DAILY [facility] Last Admin: 02/25/17 10:52 Dose: 25 mg Diltiazem HCl (Cardizem Cd) 360 mg PO DAILY [facility] Last Admin: 02/25/17 10:52 Dose: 360 mg Famotidine (Pepcid) 20 mg PO DAILY [facility] Last Admin: 02/25/17 10:52 Dose: 20 mg Finasteride (Proscar) 5 mg PO DAILY [facility] Last Admin: 02/25/17 10:54 Dose: 5 mg Hydralazine HCl (Apresoline) 10 mg IVP Q6H PRN PRN Reason: Systolic Blood Pressure Sodium Chloride (Sodium Chloride 0.9%) 1,000 mls @ 50 mls/hr IV .Q20H [facility] Last Admin: 02/25/17 06:07 Dose: 50 mls/hr Levetiracetam (Keppra) 500 mg PO BID [facility] Last Admin: 02/25/17 17:43 Dose: 500 mg Losartan Potassium (Cozaar) 100 mg PO DAILY [facility] Last Admin: 02/25/17 10:54 Dose: 100 mg Metoprolol Tartrate (Lopressor) 100 mg PO Q12 [facility] Last Admin: 02/25/17 10:53 Dose: 100 mg Ondansetron HCl (Zofran Inj) 4 mg IVP Q6 PRN PRN Reason: Nausea/Vomiting Oxycodone HCl (Oxycodone Immediate Release Tab) 5 mg PO Q6 PRN PRN Reason: Pain, severe (8-10) Last Admin: 02/25/17 10:53 Dose: 5 mg Tamsulosin HCl (Flomax) 0.4 mg PO DAILY [facility] Last Admin: 02/25/17 10:53 Dose: 0.4 mg - Labs Labs: 02/25/17 06:55 02/25/17 06:55 PT 33.8 SECONDS (9.7-12.2) H* 02/25/17 06:55 INR 2.9 02/25/17 06:55 APTT 31 SECONDS (21-34) 02/21/17 12:19 Attending/Attestation - Attestation I have personally seen and examined this patient.: Yes I have fully participated in the care of the patient.: Yes I have reviewed all pertinent clinical information, including history, physical exam and plan: Yes Notes (Text): 02/25/17 20:02 Patient was seen and examined at 1:30 PM Exam, Assessment and Plan were thoroughly gone over with the resident. Awaiting Medicaid approval for transfer to [facility]. Unruly Vines D.O.
[2017-02-25 07:24] LABS: BASO % 0.2 % (0.0-2.0); EOS % 0.1 % (0.0-4.0); HEMATOCRIT 33.3 % (35.0-51.0); INR 2.9; LYMPH # 1.1 K/uL (1.0-4.3); LYMPH % 13.8 % (20.0-40.0); MEAN CELL VOLUME 78.4 fL (80.0-94.0); MEAN CORPUSCULAR HEMOGLOBIN 26.8 pg (27.0-31.0); MEAN CORPUSCULAR HGB CONC 34.1 g/dL (33.0-37.0); MONO # 0.5 K/uL (0.0-0.8); MONO % 6.5 % (0.0-10.0); RED CELL DISTRIBUTION WIDTH 15.6 % (11.5-14.5); WHITE BLOOD COUNT 8.2 K/uL (4.8-10.8)
[2017-02-25 07:33] LABS: CHLORIDE 99 mmol/L (98-107)
[2017-02-25 07:34] LABS: POTASSIUM 3.3 mmol/L (3.6-5.2); SODIUM 133 mmol/L (132-148)
[2017-02-25 07:36] LABS: ALB/GLOB RATIO 0.8 (1.0-2.1); ALKALINE PHOSPHATASE 106 U/L (38-126); ALT/SGPT 114 U/L (21-72); AST/SGOT 68 U/L (17-59); BILIRUBIN,TOTAL 0.5 mg/dL (0.2-1.3); BLOOD UREA NITROGEN 20 mg/dL (9-20); CARBON DIOXIDE 26 mmol/L (22-30); GFR AFRICAN-AMERICAN > 60; TOTAL PROTEIN 6.4 g/dL (6.3-8.3)
[2017-02-25 07:37] LABS: GLUCOSE,RANDOM 95 mg/dL (75-110); MAGNESIUM 1.9 mg/dL (1.6-2.3)
[2017-02-25] MEDS: diltiaZEM 180 mg/24 Hours CD Cap PO SCH (10:52)
[2017-02-25] MEDS: oxyCODONE 5 mg Immediate Release Tab PO PRN ×2 (10:53→21:03)
[2017-02-25] MEDS: Bacitracin 500 Units/gm Oint Foilpak UD TOP SCH ×2 (10:54→17:43)
[2017-02-25] MEDS ORDERED: Potassium Chloride 20 mEq ER Tab PO ONE (12:15)
--- NOTE | 2017-02-25 22:44 | CP.PCM.PN ---
Subjective - Date & Time of Evaluation Date of Evaluation: 02/25/17 Time of Evaluation: 14:40 - Subjective Subjective: status quo b/l LE discomfort vesicular eruptions noted HR stable BP stable Objective - Vital Signs/Intake and Output Vital Signs (last 24 hours): Temp Pulse Resp BP Pulse Ox 98.1 F 105 H 20 108/66 99 02/25/17 15:15 02/25/17 17:00 02/25/17 15:15 02/25/17 15:15 02/25/17 15:15 Intake and Output: 02/25/17 02/26/17 18:59 06:59 Intake Total 800 400 Balance 800 400 - Medications Medications: Current Medications Amiodarone HCl (Cordarone) 400 mg PO BID [facility] Stop: 03/01/17 18:01 Last Admin: 02/25/17 17:43 Dose: 400 mg Amiodarone HCl (Cordarone) 200 mg PO BID [facility] Bacitracin (Bacitracin) 1 ea TOP BID [facility] Last Admin: 02/25/17 17:43 Dose: 1 ea Chlorthalidone (Hygroton) 25 mg PO DAILY [facility] Last Admin: 02/25/17 10:52 Dose: 25 mg Diltiazem HCl (Cardizem Cd) 360 mg PO DAILY [facility] Last Admin: 02/25/17 10:52 Dose: 360 mg Famotidine (Pepcid) 20 mg PO DAILY [facility] Last Admin: 02/25/17 10:52 Dose: 20 mg Finasteride (Proscar) 5 mg PO DAILY [facility] Last Admin: 02/25/17 10:54 Dose: 5 mg Hydralazine HCl (Apresoline) 10 mg IVP Q6H PRN PRN Reason: Systolic Blood Pressure Sodium Chloride (Sodium Chloride 0.9%) 1,000 mls @ 50 mls/hr IV .Q20H [facility] Last Admin: 02/25/17 06:07 Dose: 50 mls/hr Levetiracetam (Keppra) 500 mg PO BID [facility] Last Admin: 02/25/17 17:43 Dose: 500 mg Losartan Potassium (Cozaar) 100 mg PO DAILY [facility] Last Admin: 02/25/17 10:54 Dose: 100 mg Metoprolol Tartrate (Lopressor) 100 mg PO Q12 [facility] Last Admin: 02/25/17 21:00 Dose: 100 mg Ondansetron HCl (Zofran Inj) 4 mg IVP Q6 PRN PRN Reason: Nausea/Vomiting Oxycodone HCl (Oxycodone Immediate Release Tab) 5 mg PO Q6 PRN PRN Reason: Pain, severe (8-10) Last Admin: 02/25/17 21:03 Dose: 5 mg Tamsulosin HCl (Flomax) 0.4 mg PO DAILY [facility] Last Admin: 02/25/17 10:53 Dose: 0.4 mg - Labs Labs: 02/25/17 06:55 02/25/17 06:55 PT 33.8 SECONDS (9.7-12.2) H* 02/25/17 06:55 INR 2.9 02/25/17 06:55 APTT 31 SECONDS (21-34) 02/21/17 12:19 - Constitutional Appears: Well, No Acute Distress - Head Exam Head Exam: ATRAUMATIC, NORMAL INSPECTION, NORMOCEPHALIC - Eye Exam Eye Exam: EOMI, Normal appearance, PERRL Pupil Exam: NORMAL ACCOMODATION, PERRL - ENT Exam ENT Exam: Mucous Membranes Moist, Normal Exam - Neck Exam Neck Exam: Full ROM, Normal Inspection. absent: Lymphadenopathy - Respiratory Exam Respiratory Exam: Clear to Ausculation Bilateral, NORMAL BREATHING PATTERN - Cardiovascular Exam Cardiovascular Exam: REGULAR RHYTHM, +S1, +S2, Murmur - GI/Abdominal Exam GI & Abdominal Exam: Soft, Normal Bowel Sounds. absent: Tenderness - Extremities Exam Extremities Exam: Full ROM, Normal Capillary Refill, Normal Inspection. absent : Joint Swelling, Pedal Edema - Back Exam Back Exam: NORMAL INSPECTION - Neurological Exam Neurological Exam: Alert, Awake, CN II-XII Intact, Oriented x3 - Psychiatric Exam Psychiatric exam: Normal Affect, Normal Mood - Skin Skin Exam: Dry, Intact, Normal Color, Warm Assessment and Plan (1) NSVT (nonsustained ventricular tachycardia) Assessment & Plan: stable on BB, amiodarone telemetry monitoring Status: Acute (2) Atrial fibrillation Assessment & Plan: rate controlled on bb, ccb INR 2.9 - coumadin Status: Acute (3) HTN (hypertension), malignant Assessment & Plan: BP stable cont current meds Status: Acute (4) Critical lower limb ischemia Assessment & Plan: poor prognosis vascular following Status: Acute
[2017-02-26 06:26] LABS: BASO % 0.3 % (0.0-2.0); EOS % 0.2 % (0.0-4.0); HEMATOCRIT 32.4 % (35.0-51.0); LYMPH # 1.2 K/uL (1.0-4.3); LYMPH % 14.2 % (20.0-40.0); MEAN CELL VOLUME 78.6 fL (80.0-94.0); MEAN CORPUSCULAR HEMOGLOBIN 26.9 pg (27.0-31.0); MEAN CORPUSCULAR HGB CONC 34.2 g/dL (33.0-37.0); MEAN PLATELET VOLUME 7.4 fL (7.2-11.7); MONO # 0.5 K/uL (0.0-0.8); MONO % 5.8 % (0.0-10.0); RED CELL DISTRIBUTION WIDTH 15.3 % (11.5-14.5); WHITE BLOOD COUNT 8.4 K/uL (4.8-10.8)
[2017-02-26 06:33] LABS: INR 3.2
[2017-02-26 06:42] LABS: ALB/GLOB RATIO 0.8 (1.0-2.1); ALKALINE PHOSPHATASE 108 U/L (38-126); ALT/SGPT 104 U/L (21-72); AST/SGOT 67 U/L (17-59); BILIRUBIN,TOTAL 0.4 mg/dL (0.2-1.3); BLOOD UREA NITROGEN 18 mg/dL (9-20); CALCIUM 8.5 mg/dl (8.6-10.4); CARBON DIOXIDE 27 mmol/L (22-30); CHLORIDE 96 mmol/L (98-107); GFR AFRICAN-AMERICAN > 60; GLUCOSE,RANDOM 96 mg/dL (75-110); MAGNESIUM 1.9 mg/dL (1.6-2.3); PHOSPHOROUS 3.3 mg/dL (2.5-4.5); POTASSIUM 3.9 mmol/L (3.6-5.2); SODIUM 133 mmol/L (132-148); TOTAL PROTEIN 6.1 g/dL (6.3-8.3)
--- NOTE | 2017-02-26 09:03 | CP.PCM.PN ---
<Umer Turk - Last Filed: 02/26/17 22:08> Subjective - Date & Time of Evaluation Date of Evaluation: 02/26/17 Time of Evaluation: 08:56 - Subjective Subjective: PGY-[address] Dias's Nephrology service: Pt seen and examined at bedside. Pt found sleeping comfortably in bed. He reports pain/numbness in his bilateral legs, which is worse on the right today. He reports increased urination today, but denies dysuria. Objective - Vital Signs/Intake and Output Vital Signs (last 24 hours): Temp Pulse Resp BP Pulse Ox 98.1 F 96 H 20 137/82 100 02/26/17 08:39 02/26/17 08:39 02/26/17 08:39 02/26/17 08:39 02/26/17 08:39 Intake and Output: 02/26/17 02/26/17 06:59 18:59 Intake Total 800 Balance 800 - Medications Medications: Current Medications Amiodarone HCl (Cordarone) 400 mg PO BID [facility] Stop: 03/01/17 18:01 Last Admin: 02/25/17 17:43 Dose: 400 mg Amiodarone HCl (Cordarone) 200 mg PO BID [facility] Bacitracin (Bacitracin) 1 ea TOP BID [facility] Last Admin: 02/25/17 17:43 Dose: 1 ea Chlorthalidone (Hygroton) 25 mg PO DAILY [facility] Last Admin: 02/25/17 10:52 Dose: 25 mg Diltiazem HCl (Cardizem Cd) 360 mg PO DAILY [facility] Last Admin: 02/25/17 10:52 Dose: 360 mg Famotidine (Pepcid) 20 mg PO DAILY [facility] Last Admin: 02/25/17 10:52 Dose: 20 mg Finasteride (Proscar) 5 mg PO DAILY [facility] Last Admin: 02/25/17 10:54 Dose: 5 mg Hydralazine HCl (Apresoline) 10 mg IVP Q6H PRN PRN Reason: Systolic Blood Pressure Sodium Chloride (Sodium Chloride 0.9%) 1,000 mls @ 50 mls/hr IV .Q20H [facility] Last Admin: 02/25/17 06:07 Dose: 50 mls/hr Levetiracetam (Keppra) 500 mg PO BID [facility] Last Admin: 02/25/17 17:43 Dose: 500 mg Losartan Potassium (Cozaar) 100 mg PO DAILY [facility] Last Admin: 02/25/17 10:54 Dose: 100 mg Metoprolol Tartrate (Lopressor) 100 mg PO Q12 [facility] Last Admin: 02/25/17 21:00 Dose: 100 mg Ondansetron HCl (Zofran Inj) 4 mg IVP Q6 PRN PRN Reason: Nausea/Vomiting Oxycodone HCl (Oxycodone Immediate Release Tab) 5 mg PO Q6 PRN PRN Reason: Pain, severe (8-10) Last Admin: 02/25/17 21:03 Dose: 5 mg Tamsulosin HCl (Flomax) 0.4 mg PO DAILY [facility] Last Admin: 02/25/17 10:53 Dose: 0.4 mg - Labs Labs: 02/26/17 06:15 02/26/17 06:15 PT 37.2 SECONDS (9.7-12.2) H* 02/26/17 06:15 INR 3.2 02/26/17 06:15 APTT 31 SECONDS (21-34) 02/21/17 12:19 - Additional Findings Additional findings: - Constitutional Appears: Non-toxic, No Acute Distress - Head Exam Head Exam: NORMAL INSPECTION - Eye Exam Eye Exam: Normal appearance. absent: Scleral icterus - ENT Exam ENT Exam: Mucous Membranes Moist - Neck Exam Neck exam: Negative for: Lymphadenopathy - Respiratory Exam Respiratory Exam: Clear to Auscultation Bilateral, NORMAL BREATHING PATTERN. absent: Rales, Rhonchi, Wheezes, Respiratory Distress - Cardiovascular Exam Cardiovascular Exam: +S1, +S2 - GI/Abdominal Exam GI & Abdominal Exam: Soft. absent: Tenderness - Exam Exam: absent: Bladder Distension - Extremities Exam Additional comments: Bilateral lower leg tenderness to palpation Chronic venous skin changes -tender bullae noted on left ankle/wallace decreased DP/PT pulses bilaterally Left LE cooler to touch than right - Neurological Exam Neurological exam: Alert, Oriented - Psychiatric Exam Psychiatric exam: Normal Affect, Normal Mood - Skin Skin Exam: Normal Color, Warm Assessment and Plan - Assessment and Plan (Free Text) Plan: (1) Elevated CK Assessment and Plan: Etiology unclear; no inciting med identified; possibility of myalgia/myositis due to an unknown condition; alternatively, patient's severe PAD may be causing some degree of muscle necrosis; Otherwise, relatively low degree of CK elevation, should not result in any renal injury; -agree with IVF, should encourage patient to avoid dehydration -TSH/Free T4: WNL Status: Acute (2) HTN (hypertension) Assessment and Plan: Well controlled BP controlled on 4 agents including a diuretic -metoprolol 100mg PO Q12H -cardizem 360 mg PO Daily -losartan 100mg PO daily -chlorthalidone 25mg PO Daily should check nohemi/renin level to look for secondary cause of htn NS @ 50cc/hr Status: Chronic (3) CKD (chronic kidney disease) Assessment and Plan: Mild CKD with no significant albuminuria -BUN/Cr 20/1.2, stable from admission -US Bladder: 60 % post-residual from 622 cc prevoid volume. Normal urinary bladder mural thickness w/o nodularity septation or urolithiasis associated. Mildly enlarged prostate gland. (see full report) -f/u urine total protein, creatinine, microalbumin Status: Chronic (4) Benign Prostatic Hypertrophy Flomax 0.4mg PO daily Finasteride 5mg PO Daily Discussed with Dr. Dias, Umer Turk PGY-1 <Luis Dias - Last Filed: 03/30/17 09:04> Objective - Vital Signs/Intake and Output Vital Signs (last 24 hours): Temp Pulse Resp BP Pulse Ox 98.0 F 64 20 152/73 H 98 03/30/17 07:54 03/30/17 07:54 03/30/17 07:54 03/30/17 07:54 03/30/17 07:54 Intake and Output: 03/30/17 03/30/17 06:59 18:59 Intake Total 0 Balance 0 - Medications Medications: Current Medications Amiodarone HCl (Cordarone) 200 mg PO BID [facility] Last Admin: 03/29/17 17:14 Dose: 200 mg Aspirin (Aspirin Chewable) 81 mg PO DAILY [facility] Last Admin: 03/29/17 09:30 Dose: 81 mg Diltiazem HCl (Cardizem Cd) 360 mg PO DAILY [facility] Last Admin: 03/29/17 09:31 Dose: 360 mg Docusate Sodium (Colace) 100 mg PO BID [facility] Last Admin: 03/29/17 17:14 Dose: 100 mg Famotidine (Pepcid) 20 mg PO DAILY [facility] Last Admin: 10/22/17 09:32 Dose: 20 mg Finasteride (Proscar) 5 mg PO DAILY [facility] Last Admin: 03/29/17 09:32 Dose: 5 mg Gabapentin (Neurontin) 300 mg PO TID [facility] Last Admin: 03/29/17 17:14 Dose: 300 mg Lactobacillus Acidophilus (Bacid Acidophilus) 1 cap PO BID [facility] Stop: 04/14/17 18:00 Last Admin: 03/29/17 17:14 Dose: 1 cap Levetiracetam (Keppra) 500 mg PO BID [facility] Last Admin: 03/29/17 17:14 Dose: 500 mg Losartan Potassium (Cozaar) 25 mg PO DAILY [facility] Last Admin: 03/29/17 10:00 Dose: 25 mg Morphine Sulfate (Morphine) 2 mg IVP Q4 PRN PRN Reason: Pain, severe (8-10) Last Admin: 03/29/17 13:49 Dose: 2 mg Ondansetron HCl (Zofran Inj) 4 mg IVP Q6 PRN PRN Reason: Nausea/Vomiting Promethazine HCl/Codeine (Phenergan/Codeine Oral Syrup) 5 ml PO Q4 PRN PRN Reason: Cough Rosuvastatin Calcium (Crestor) 5 mg PO HS [facility] Last Admin: 03/29/17 21:55 Dose: 5 mg Tamsulosin HCl (Flomax) 0.4 mg PO DAILY [facility] Last Admin: 03/29/17 09:32 Dose: 0.4 mg - Labs Labs: 03/30/17 08:20 03/27/17 11:19 PT 33.9 SECONDS (9.7-12.2) H* D 03/30/17 08:20 INR 2.9 D 03/30/17 08:20 APTT 33 SECONDS (21-34) 03/30/17 08:20 Assessment and Plan (1) Elevated CK Status: Acute (2) HTN (hypertension) Status: Chronic (3) CKD (chronic kidney disease) Status: Chronic Attending/Attestation - Attestation I have personally seen and examined this patient.: Yes I have fully participated in the care of the patient.: Yes I have reviewed all pertinent clinical information, including history, physical exam and plan: Yes
--- NOTE | 2017-02-26 09:45 | CARD ---
APPROVED REPORT EKG Measurement Heart [id number] <Conclusion> Atrial flutter Right bundle branch block Left anterior fascicular block Bifascicular block Voltage criteria for left ventricular hypertrophy Cannot rule out Inferior infarct, age undetermined T wave abnormality, consider lateral ischemia Abnormal ECG
[2017-02-26] MEDS: oxyCODONE 5 mg Immediate Release Tab PO PRN ×2 (10:34→21:33)
[2017-02-26] MEDS: Bacitracin 500 Units/gm Oint Foilpak UD TOP SCH ×2 (10:34→23:36)
[2017-02-26] MEDS: diltiaZEM 180 mg/24 Hours CD Cap PO SCH (10:34)
--- NOTE | 2017-02-26 11:53 | CP.PCM.PN ---
<Eloisa Crowe - Last Filed: 02/26/17 18:49> Subjective - Date & Time of Evaluation Date of Evaluation: 02/26/17 Time of Evaluation: 11:50 - Subjective Subjective: Patient seen and examined at bedside. Patient doing well at this time. Patient still having leg pain b/l but is otherwise feeling good. Patient denies chest pain, SOB, fever, chills, abdominal pain, nausea, vomiting, diarrhea, constipation. Objective - Vital Signs/Intake and Output Vital Signs (last 24 hours): Temp Pulse Resp BP Pulse Ox 98.1 F 95 H 20 125/70 100 02/26/17 08:39 02/26/17 10:33 02/26/17 08:39 02/26/17 10:33 02/26/17 08:39 Intake and Output: 02/26/17 02/26/17 06:59 18:59 Intake Total 800 Balance 800 - Medications Medications: Current Medications Amiodarone HCl (Cordarone) 400 mg PO BID [facility] Stop: 03/01/17 18:01 Last Admin: 02/26/17 10:34 Dose: 400 mg Amiodarone HCl (Cordarone) 200 mg PO BID [facility] Bacitracin (Bacitracin) 1 ea TOP BID [facility] Last Admin: 02/26/17 10:34 Dose: 1 ea Chlorthalidone (Hygroton) 25 mg PO DAILY [facility] Last Admin: 02/26/17 10:34 Dose: 25 mg Diltiazem HCl (Cardizem Cd) 360 mg PO DAILY [facility] Last Admin: 02/26/17 10:34 Dose: 360 mg Famotidine (Pepcid) 20 mg PO DAILY [facility] Last Admin: 02/26/17 10:34 Dose: 20 mg Finasteride (Proscar) 5 mg PO DAILY [facility] Last Admin: 02/26/17 10:34 Dose: 5 mg Hydralazine HCl (Apresoline) 10 mg IVP Q6H PRN PRN Reason: Systolic Blood Pressure Levetiracetam (Keppra) 500 mg PO BID [facility] Last Admin: 02/26/17 10:34 Dose: 500 mg Losartan Potassium (Cozaar) 100 mg PO DAILY [facility] Last Admin: 02/26/17 10:34 Dose: 100 mg Metoprolol Tartrate (Lopressor) 100 mg PO Q12 [facility] Last Admin: 02/26/17 10:34 Dose: 100 mg Ondansetron HCl (Zofran Inj) 4 mg IVP Q6 PRN PRN Reason: Nausea/Vomiting Oxycodone HCl (Oxycodone Immediate Release Tab) 5 mg PO Q6 PRN PRN Reason: Pain, severe (8-10) Last Admin: 02/26/17 10:34 Dose: 5 mg Tamsulosin HCl (Flomax) 0.4 mg PO DAILY [facility] Last Admin: 02/26/17 10:34 Dose: 0.4 mg - Labs Labs: 02/26/17 06:15 02/26/17 06:15 PT 37.2 SECONDS (9.7-12.2) H* 02/26/17 06:15 INR 3.2 02/26/17 06:15 APTT 31 SECONDS (21-34) 02/21/17 12:19 - Constitutional Appears: Non-toxic, No Acute Distress - Head Exam Head Exam: NORMAL INSPECTION - Eye Exam Eye Exam: EOMI, Normal appearance - ENT Exam ENT Exam: Mucous Membranes Moist - Respiratory Exam Respiratory Exam: Clear to Ausculation Bilateral, NORMAL BREATHING PATTERN. absent: Accessory Muscle Use, Rales, Rhonchi, Wheezes, Respiratory Distress - Cardiovascular Exam Cardiovascular Exam: Irregular Rhythm, +S1, +S2. absent: Bradycardia, Tachycardia, Murmur - GI/Abdominal Exam GI & Abdominal Exam: Soft, Normal Bowel Sounds. absent: Distended, Tenderness - Extremities Exam Extremities Exam: Tenderness (b/l LE). absent: Pedal Edema Additional comments: Large open bullae over right wallace and smaller open bullae over right lateral leg just proximal to the lateral malleolus. Red base and without drainage. Smaller intact bullae over left lateral wallace above open bullae. Surgical wound dehiscence of right groin. - Neurological Exam Neurological Exam: Alert, Awake - Psychiatric Exam Psychiatric exam: Normal Affect, Normal Mood - Skin Skin Exam: Dry, Warm Additional comments: scattered purpura and ecchymosis over lower extremities. As stated above, there is a large open bullae over right wallace and smaller open bullae over right lateral leg just proximal to the lateral malleolus. Red base and without drainage. Smaller intact bullae over left lateral wallace above open bullae. Surgical wound dehiscence of right groin. Assessment and Plan - Assessment and Plan (Free Text) Assessment: 1). PAD: Hold Coumadin tonight, INR is .3.2, F/U INR. Goal INR is 2.5 as per [employer] Dr. Brown. He is on therapeutic Lovenox. Dr. Kaur would like to keep the mehran for now. Daughter Pura [phone] is aware that further surgical intervention ( Femoral Bypass) was not an option as the distal arteries in the bilateral legs could not support this procedure and there is possibility of amputation in the future. The plan for now is to control patient's pain and get the INR therapeutic to at least 2.5 and then discharge patient to home. 02/17: patient had a run of V Tach (5 beats) at 7:46 am. I spoke with Dr. Brown regarding this and he suggested replacing postassium. 20 of K dur was given and will be reassessed tomorrow. Repeat EKG was ordered. We will continue to monitor patient overnight. 02/24: elevated CPK, possible rhabdomyolysis 2/2 immobility, started gentle hydration with NS @50/hr. Bacitracin ointment and wound care consult for ruptured bullae of LLE. 02/26: Xeroform to wounds on LEs 2). Malignant HTN: Chlorthalidone, Cozaar, Hydralazine PRN, and Cardizem CD 360 mg 1x/day. [employer] Dr. Brown 02/12/17 and he has increased Metoprolol to [address] Angiogram of the Abdomen/Pelvis 02/04/17 did NOT show any evidence of Renal Artery Stenosis. 3). Hx Atrial Fibrillation: Coumadin and INR followup as stated above. [employer] (Dr. Brown) says the goal INR is 2.5. Cardizem CD 360 mg PO 1x/day and Metoprolol 100 mg PO Q12H. His blood pressure is better under control. 4). Hx Seizure Disorder: as his LFTs are elevated, Neurology Consult was ordered with Dr. Onesimo Hogan to see if patient could be switched over to Keppra. Dr. Hogan has placed patient on Keppra 500 mg PO 2x/day 5). Hx Multiple CVAs: Crestor is being held considering the elevated LFTs and that his Lipid Profile is currently WNL. His Lipid profile and LFTs will need to be monitored by his PMD upon discharge 6). Elevated LFTs: could be secondary to the Dilantin and the Crestor. The Crestor is being held and the Dilantin switched over to Keppra. The LFTs will need to be monitored by his PMD upon discharge. LFT elevation is currently stable 7). Elevated WBC: there is NO fever and NO shift. Blood and Urine Culture are negative to date. 8.) Splenic hemangioma: as seen on US, will need follow up CT in 3 months. 9.) BPH: proscar 5 mg PO QD and flomax 0.4 mg QD 10.) Anemia of chronic disease: stable Prophylaxis: Pepcid, Dilaudid, Zofran, Percocet, Simethicone Senior Computer Specialist Leilani has already set up Home Visiting Nurse through [facility] for 6 visits (they will then determine if more is needed afterwards) which Daughter Pura will be paying out of pocket ($150 to $200 a visit). When INR is therapeutic (2.5), then patient can be discharged. Patient will need to follow-up in the [facility] ([phone]) for INR check on to adjust Coumadin. Transportation voucher will need to be completed by Nurse. Disposition: * Awaiting insurance - forms were filled out and put in chart Thursday (02/20) * Senior Computer Specialist Leilani has already set up Home Visiting Nurse (they will then determine if more is needed afterwards) which Daughter Pura will be paying out of pocket ($150 to $200 a visit) prior to events noted above. This was clearly explained to the daughter prior to events noted above. * INR today 2.3, will maintain for tomorrow with Coumadin 5 mg. Patient will need to follow-up in the [facility] ([phone]) for INR check to adjust the Coumadin and f/u with physician--> secured appointments for the patient to accomplish this. * Patient's family expressing fear with what will they do with the patient when he gets home. * We have tried the best of our ability to help this family given lack of insurance status in terms of visiting nursing options, outpatient physical therapy, and attempting to keep his medications affordable and family made aware of out patient/out of pocket costs during hospitalization. * Family has been explained that the severity of peripheral vascular disease and understand in the future amputation is an option. They also understand will need pain control. Patient is a high cardiac risk and would need to be followed by hose mender for further workup as outpatient. * Pain management with PO medications (oxycodone 5 mg Q6 PRN) * Will continue to communicate with social work/case management/palliative care. * Patient will need outpatient follow up for repeat CT of abdomen and pelvis in 3 mon 07/10 abnormal abdominal US findings. <Unruly Vines - Last Filed: 02/26/17 19:25> Objective - Vital Signs/Intake and Output Vital Signs (last 24 hours): Temp Pulse Resp BP Pulse Ox 97.7 F 75 16 106/61 98 02/26/17 16:00 02/26/17 16:00 02/26/17 16:00 02/26/17 16:00 02/26/17 16:00 Intake and Output: 02/26/17 02/27/17 18:59 06:59 Intake Total 800 Balance 800 - Medications Medications: Current Medications Amiodarone HCl (Cordarone) 400 mg PO BID [facility] Stop: 03/01/17 18:01 Last Admin: 02/26/17 18:24 Dose: 400 mg Amiodarone HCl (Cordarone) 200 mg PO BID [facility] Bacitracin (Bacitracin) 1 ea TOP BID [facility] Last Admin: 02/26/17 10:34 Dose: 1 ea Chlorthalidone (Hygroton) 25 mg PO DAILY [facility] Last Admin: 02/26/17 10:34 Dose: 25 mg Diltiazem HCl (Cardizem Cd) 360 mg PO DAILY [facility] Last Admin: 02/26/17 10:34 Dose: 360 mg Famotidine (Pepcid) 20 mg PO DAILY [facility] Last Admin: 02/26/17 10:34 Dose: 20 mg Finasteride (Proscar) 5 mg PO DAILY [facility] Last Admin: 02/26/17 10:34 Dose: 5 mg Hydralazine HCl (Apresoline) 10 mg IVP Q6H PRN PRN Reason: Systolic Blood Pressure Levetiracetam (Keppra) 500 mg PO BID [facility] Last Admin: 02/26/17 18:24 Dose: 500 mg Losartan Potassium (Cozaar) 100 mg PO DAILY [facility] Last Admin: 02/26/17 10:34 Dose: 100 mg Metoprolol Tartrate (Lopressor) 100 mg PO Q12 [facility] Last Admin: 02/26/17 10:34 Dose: 100 mg Ondansetron HCl (Zofran Inj) 4 mg IVP Q6 PRN PRN Reason: Nausea/Vomiting Oxycodone HCl (Oxycodone Immediate Release Tab) 5 mg PO Q6 PRN PRN Reason: Pain, severe (8-10) Last Admin: 02/26/17 10:34 Dose: 5 mg Tamsulosin HCl (Flomax) 0.4 mg PO DAILY [facility] Last Admin: 02/26/17 10:34 Dose: 0.4 mg - Labs Labs: 02/26/17 06:15 02/26/17 06:15 PT 37.2 SECONDS (9.7-12.2) H* 02/26/17 06:15 INR 3.2 02/26/17 06:15 APTT 31 SECONDS (21-34) 02/21/17 12:19 Attending/Attestation - Attestation I have personally seen and examined this patient.: Yes I have fully participated in the care of the patient.: Yes I have reviewed all pertinent clinical information, including history, physical exam and plan: Yes Notes (Text): 02/26/17 19:19 Patient was seen and examined at 8:45 AM 02/26/17 Exam, Assessment and Plan were thoroughly gone over with the resident. I spoke with Vascular Surgeon Dr. Kaur concerning the possible dehiscence of the Right Inguinal Surgical Site and Dr. Kaur evaluation revealed that the surgical site was ok. I also sought Dr. Kaur's opinion concerning the bilateral lower leg bullae and the sloughing of the bullae. This is likely secondary to the severe PAD. I spoke with Wound Care Nurse Choco Eisenberg, who I asked to evaluate the bullae and he has ordered Xeroform Dressing 1x/day to the Right and Left Lateral bullae that have sloughed off. I spoke with PT Meme. The patient is not able to participate in PT due to the severe pain in his legs when he bears weight secondary to the PAD. Because of this he is bed laying most of his time here. This is likely the cause of the continued rise in CPK. Continue NS at 50 ml per hour. Holding Coumadin tonight as INR is 3.2 Unruly J. Vines, D.O.
[2017-02-27 08:11] LABS: BASO % 0.5 % (0.0-2.0); EOS % 0.2 % (0.0-4.0); HEMATOCRIT 32.3 % (35.0-51.0); LYMPH # 1.2 K/uL (1.0-4.3); LYMPH % 14.6 % (20.0-40.0); MEAN CELL VOLUME 78.4 fL (80.0-94.0); MEAN CORPUSCULAR HEMOGLOBIN 26.9 pg (27.0-31.0); MEAN CORPUSCULAR HGB CONC 34.3 g/dL (33.0-37.0); MEAN PLATELET VOLUME 7.6 fL (7.2-11.7); MONO # 0.5 K/uL (0.0-0.8); MONO % 5.9 % (0.0-10.0); RED CELL DISTRIBUTION WIDTH 15.4 % (11.5-14.5); WHITE BLOOD COUNT 8.6 K/uL (4.8-10.8)
[2017-02-27 08:18] LABS: INR 2.4
[2017-02-27 08:20] LABS: CHLORIDE 96 mmol/L (98-107)
[2017-02-27 08:21] LABS: POTASSIUM 3.3 mmol/L (3.6-5.2); SODIUM 134 mmol/L (132-148)
[2017-02-27 08:23] LABS: ALB/GLOB RATIO 0.8 (1.0-2.1); AST/SGOT 61 U/L (17-59); BILIRUBIN,TOTAL 0.4 mg/dL (0.2-1.3); CARBON DIOXIDE 27 mmol/L (22-30); GFR AFRICAN-AMERICAN > 60; TOTAL PROTEIN 6.1 g/dL (6.3-8.3)
[2017-02-27 08:24] LABS: ALKALINE PHOSPHATASE 107 U/L (38-126); ALT/SGPT 96 U/L (21-72); BLOOD UREA NITROGEN 16 mg/dL (9-20); CALCIUM 8.3 mg/dl (8.6-10.4); GLUCOSE,RANDOM 84 mg/dL (75-110); MAGNESIUM 1.8 mg/dL (1.6-2.3)
[2017-02-27] MEDS: diltiaZEM 180 mg/24 Hours CD Cap PO SCH (09:54)
[2017-02-27] MEDS ORDERED: Potassium Chloride 20 mEq ER Tab PO ONE (10:00)
--- NOTE | 2017-02-27 10:30 | CP.PCM.PN ---
<Eloisa Crowe - Last Filed: 02/27/17 15:59> Subjective - Date & Time of Evaluation Date of Evaluation: 02/27/17 Time of Evaluation: 10:30 - Subjective Subjective: Patient seen and examined at bedside. Patient doing well at this time with no new complaints. Patient still having leg pain b/l but is otherwise feeling good. He appears to be somewhat confused as described by the translator and interpreter. Patient is asking for his prostate to be examined saying "no one has ever checked it before", however the patient has a known history of BPH and has had a prostate exam in the past. Patient denies chest pain, SOB, fever, chills, abdominal pain, nausea, vomiting, diarrhea, constipation. Objective - Vital Signs/Intake and Output Vital Signs (last 24 hours): Temp Pulse Resp BP Pulse Ox 98.7 F 91 H 20 137/73 96 02/27/17 08:13 02/27/17 09:50 02/27/17 08:13 02/27/17 09:50 02/27/17 08:13 Intake and Output: 02/27/17 02/27/17 06:59 18:59 Intake Total 400 Balance 400 - Medications Medications: Current Medications Amiodarone HCl (Cordarone) 400 mg PO BID [facility] Stop: 03/01/17 18:01 Last Admin: 02/27/17 09:54 Dose: 400 mg Amiodarone HCl (Cordarone) 200 mg PO BID [facility] Chlorthalidone (Hygroton) 25 mg PO DAILY [facility] Last Admin: 02/27/17 09:55 Dose: 25 mg Diltiazem HCl (Cardizem Cd) 360 mg PO DAILY [facility] Last Admin: 02/27/17 09:54 Dose: 360 mg Famotidine (Pepcid) 20 mg PO DAILY [facility] Last Admin: 02/27/17 09:55 Dose: 20 mg Finasteride (Proscar) 5 mg PO DAILY [facility] Last Admin: 02/27/17 09:59 Dose: 5 mg Hydralazine HCl (Apresoline) 10 mg IVP Q6H PRN PRN Reason: Systolic Blood Pressure Sodium Chloride (Sodium Chloride 0.9%) 1,000 mls @ 50 mls/hr IV .Q20H [facility] Levetiracetam (Keppra) 500 mg PO BID [facility] Last Admin: 02/27/17 09:54 Dose: 500 mg Losartan Potassium (Cozaar) 100 mg PO DAILY [facility] Last Admin: 02/27/17 09:54 Dose: 100 mg Metoprolol Tartrate (Lopressor) 100 mg PO Q12 [facility] Last Admin: 02/27/17 09:54 Dose: 100 mg Ondansetron HCl (Zofran Inj) 4 mg IVP Q6 PRN PRN Reason: Nausea/Vomiting Oxycodone HCl (Oxycodone Immediate Release Tab) 5 mg PO Q6 PRN PRN Reason: Pain, severe (8-10) Last Admin: 02/26/17 21:33 Dose: 5 mg Tamsulosin HCl (Flomax) 0.4 mg PO DAILY [facility] Last Admin: 02/27/17 09:55 Dose: 0.4 mg Warfarin Sodium (Coumadin) 5 mg PO 1800 [facility] Stop: 02/27/17 18:01 - Labs Labs: 02/27/17 08:00 02/27/17 08:00 PT 28.6 SECONDS (9.7-12.2) H D 02/27/17 08:00 INR 2.4 D 02/27/17 08:00 APTT 29 SECONDS (21-34) 02/27/17 08:00 - Additional Findings Additional findings: - Constitutional Appears: Non-toxic, No Acute Distress - Head Exam Head Exam: NORMAL INSPECTION - Eye Exam Eye Exam: EOMI, Normal appearance - ENT Exam ENT Exam: Mucous Membranes Moist - Respiratory Exam Respiratory Exam: Clear to Ausculation Bilateral, NORMAL BREATHING PATTERN. absent: Accessory Muscle Use, Rales, Rhonchi, Wheezes, Respiratory Distress - Cardiovascular Exam Cardiovascular Exam: Irregular Rhythm, +S1, +S2. absent: Bradycardia, Tachycardia, Murmur - GI/Abdominal Exam GI & Abdominal Exam: Soft, Normal Bowel Sounds. absent: Distended, Tenderness - Extremities Exam Extremities Exam: Tenderness (b/l LE). absent: Pedal Edema Additional comments: Large open bullae over right wallace and smaller open bullae over right lateral leg just proximal to the lateral malleolus. Red base and without drainage. Smaller intact bullae over left lateral wallace above open bullae. These are covered with xeroform and wrapped with dressings that appear to be C/D/I. Surgical wound dehiscence of right groin with mehran in place. - Neurological Exam Neurological Exam: Alert, Awake - Psychiatric Exam Psychiatric exam: Normal Affect, Normal Mood - Skin Skin Exam: Dry, Warm Additional comments: Scattered purpura and ecchymosis over lower extremities. As stated above, there is a large open bullae over right wallace and smaller open bullae over right lateral leg just proximal to the lateral malleolus. Red base and without drainage. Smaller intact bullae over left lateral wallace above open bullae. These are covered with xeroform and wrapped with dressings that appear to be C/D/I. Surgical wound dehiscence of right groin with mehran in place. Assessment and Plan - Assessment and Plan (Free Text) Assessment: 1). PAD: Coumadin 5 tonight, INR is 2.4, F/U INR. Goal INR is 2.[address]ainer [address] Brown. He is on therapeutic Lovenox. Dr. Kaur would like to keep the mehran for now. Daughter Pura [phone] is aware that further surgical intervention ( Femoral Bypass) was not an option as the distal arteries in the bilateral legs could not support this procedure and there is possibility of amputation in the future. The plan for now is to control patient's pain and get the INR therapeutic to at least 2.5 and then discharge patient to home. 02/17: patient had a run of V Tach (5 beats) at 7:46 am. I spoke with Dr. Brown regarding this and he suggested replacing postassium. 20 of K dur was given and will be reassessed tomorrow. Repeat EKG was ordered. We will continue to monitor patient overnight. 02/24: elevated CPK, possible rhabdomyolysis 2/2 immobility, started gentle hydration with NS @50/hr. Bacitracin ointment and wound care consult for ruptured bullae of LLE. 02/26: Xeroform and dressings to wounds on LEs 2). Malignant HTN: Chlorthalidone, Cozaar, Hydralazine PRN, and Cardizem CD 360 mg 1x/day. Cable Maintainer Dr. Brown 02/12/17 and he has increased Metoprolol to [address] Angiogram of the Abdomen/Pelvis 02/04/17 did NOT show any evidence of Renal Artery Stenosis. 3). Hx Atrial Fibrillation: Coumadin and INR followup as stated above. Cable Maintainer (Dr. Brown) says the goal INR is 2.5. Cardizem CD 360 mg PO 1x/day and Metoprolol 100 mg PO Q12H. His blood pressure is better under control. 4). Hx Seizure Disorder: as his LFTs are elevated, Neurology Consult was ordered with Dr. Onesimo Hogan to see if patient could be switched over to Keppra. Dr. Hogan has placed patient on Keppra 500 mg PO 2x/day 5). Hx Multiple CVAs: Crestor is being held considering the elevated LFTs and that his Lipid Profile is currently WNL. His Lipid profile and LFTs will need to be monitored by his PMD upon discharge 6). Elevated LFTs: could be secondary to the Dilantin and the Crestor. The Crestor is being held and the Dilantin switched over to Keppra. The LFTs will need to be monitored by his PMD upon discharge. LFT elevation is currently stable 7). Elevated WBC: there is NO fever and NO shift. Blood and Urine Culture are negative to date. 8.) Splenic hemangioma: as seen on US, will need follow up CT in 3 months. 9.) BPH: proscar 5 mg PO QD and flomax 0.4 mg QD 10.) Anemia of chronic disease: stable Prophylaxis: Pepcid, Dilaudid, Zofran, Percocet, Simethicone Dining Services Manager Leilani has already set up Home Visiting Nurse through [facility] for 6 visits (they will then determine if more is needed afterwards) which Daughter Pura will be paying out of pocket ($150 to $200 a visit). When INR is therapeutic (2.5), then patient can be discharged. Patient will need to follow-up in the [facility] ([phone]) for INR check on to adjust Coumadin. Transportation voucher will need to be completed by Nurse. Disposition: * Awaiting insurance - forms were filled out and put in chart Thursday (02/20) * Dining Services Manager Leilani has already set up Home Visiting Nurse (they will then determine if more is needed afterwards) which Daughter Pura will be paying out of pocket ($150 to $200 a visit) prior to events noted above. This was clearly explained to the daughter prior to events noted above. * INR today 2.3, will maintain for tomorrow with Coumadin 5 mg. Patient will need to follow-up in the [facility] ([phone]) for INR check to adjust the Coumadin and f/u with physician--> secured appointments for the patient to accomplish this. * Patient's family expressing fear with what will they do with the patient when he gets home. * We have tried the best of our ability to help this family given lack of insurance status in terms of visiting nursing options, outpatient physical therapy, and attempting to keep his medications affordable and family made aware of out patient/out of pocket costs during hospitalization. * Family has been explained that the severity of peripheral vascular disease and understand in the future amputation is an option. They also understand will need pain control. Patient is a high cardiac risk and would need to be followed by hazardous materials tanker driver for further workup as outpatient. * Pain management with PO medications (oxycodone 5 mg Q6 PRN) * Will continue to communicate with social work/case management/palliative care. * Patient will need outpatient follow up for repeat CT of abdomen and pelvis in 3 07/10 abnormal abdominal US findings. <Unruly Vines - Last Filed: 02/27/17 19:24> Objective - Vital Signs/Intake and Output Vital Signs (last 24 hours): Temp Pulse Resp BP Pulse Ox 98.3 F 64 20 103/52 L 100 02/27/17 15:04 02/27/17 15:04 02/27/17 15:04 02/27/17 15:04 02/27/17 15:04 Intake and Output: 02/27/17 02/28/17 18:59 06:59 Intake Total 800 Balance 800 - Medications Medications: Current Medications Amiodarone HCl (Cordarone) 400 mg PO BID [facility] Stop: 03/01/17 18:01 Last Admin: 02/27/17 17:13 Dose: 400 mg Amiodarone HCl (Cordarone) 200 mg PO BID [facility] Chlorthalidone (Hygroton) 25 mg PO DAILY [facility] Last Admin: 02/27/17 09:55 Dose: 25 mg Diltiazem HCl (Cardizem Cd) 360 mg PO DAILY [facility] Last Admin: 02/27/17 09:54 Dose: 360 mg Famotidine (Pepcid) 20 mg PO DAILY [facility] Last Admin: 02/27/17 09:55 Dose: 20 mg Finasteride (Proscar) 5 mg PO DAILY [facility] Last Admin: 02/27/17 09:59 Dose: 5 mg Hydralazine HCl (Apresoline) 10 mg IVP Q6H PRN PRN Reason: Systolic Blood Pressure Sodium Chloride (Sodium Chloride 0.9%) 1,000 mls @ 50 mls/hr IV .Q20H [facility] Last Admin: 02/27/17 17:18 Dose: Not Given Levetiracetam (Keppra) 500 mg PO BID [facility] Last Admin: 02/27/17 17:13 Dose: 500 mg Losartan Potassium (Cozaar) 100 mg PO DAILY [facility] Last Admin: 02/27/17 09:54 Dose: 100 mg Metoprolol Tartrate (Lopressor) 100 mg PO Q12 [facility] Last Admin: 02/27/17 09:54 Dose: 100 mg Ondansetron HCl (Zofran Inj) 4 mg IVP Q6 PRN PRN Reason: Nausea/Vomiting Oxycodone HCl (Oxycodone Immediate Release Tab) 5 mg PO Q6 PRN PRN Reason: Pain, severe (8-10) Last Admin: 02/26/17 21:33 Dose: 5 mg Tamsulosin HCl (Flomax) 0.4 mg PO DAILY [facility] Last Admin: 02/27/17 09:55 Dose: 0.4 mg - Labs Labs: 02/27/17 08:00 02/27/17 08:00 PT 28.6 SECONDS (9.7-12.2) H D 02/27/17 08:00 INR 2.4 D 02/27/17 08:00 APTT 29 SECONDS (21-34) 02/27/17 08:00 Attending/Attestation - Attestation I have personally seen and examined this patient.: Yes I have fully participated in the care of the patient.: Yes I have reviewed all pertinent clinical information, including history, physical exam and plan: Yes Notes (Text): 02/27/17 19:23 Patient was seen and examined at 9:15 AM 02/27/17. Exam, Assessment and Plan were thoroughly gone over with the resident. Unruly Vines D.O.
--- NOTE | 2017-02-27 11:08 | CP.PCM.PN ---
Subjective - Date & Time of Evaluation Date of Evaluation: 02/27/17 Time of Evaluation: 17:00 - Subjective Subjective: HR controlled wound care dsg on b/l LE Objective - Vital Signs/Intake and Output Vital Signs (last 24 hours): Temp Pulse Resp BP Pulse Ox 98.7 F 91 H 20 137/73 96 02/27/17 08:13 02/27/17 09:50 02/27/17 08:13 02/27/17 09:50 02/27/17 08:13 Intake and Output: 02/27/17 02/27/17 06:59 18:59 Intake Total 400 Balance 400 - Medications Medications: Current Medications Amiodarone HCl (Cordarone) 400 mg PO BID [facility] Stop: 03/01/17 18:01 Last Admin: 02/27/17 09:54 Dose: 400 mg Amiodarone HCl (Cordarone) 200 mg PO BID [facility] Chlorthalidone (Hygroton) 25 mg PO DAILY [facility] Last Admin: 02/27/17 09:55 Dose: 25 mg Diltiazem HCl (Cardizem Cd) 360 mg PO DAILY [facility] Last Admin: 02/27/17 09:54 Dose: 360 mg Famotidine (Pepcid) 20 mg PO DAILY [facility] Last Admin: 02/27/17 09:55 Dose: 20 mg Finasteride (Proscar) 5 mg PO DAILY [facility] Last Admin: 02/27/17 09:59 Dose: 5 mg Hydralazine HCl (Apresoline) 10 mg IVP Q6H PRN PRN Reason: Systolic Blood Pressure Sodium Chloride (Sodium Chloride 0.9%) 1,000 mls @ 50 mls/hr IV .Q20H [facility] Levetiracetam (Keppra) 500 mg PO BID [facility] Last Admin: 02/27/17 09:54 Dose: 500 mg Losartan Potassium (Cozaar) 100 mg PO DAILY [facility] Last Admin: 02/27/17 09:54 Dose: 100 mg Metoprolol Tartrate (Lopressor) 100 mg PO Q12 [facility] Last Admin: 02/27/17 09:54 Dose: 100 mg Ondansetron HCl (Zofran Inj) 4 mg IVP Q6 PRN PRN Reason: Nausea/Vomiting Oxycodone HCl (Oxycodone Immediate Release Tab) 5 mg PO Q6 PRN PRN Reason: Pain, severe (8-10) Last Admin: 02/26/17 21:33 Dose: 5 mg Tamsulosin HCl (Flomax) 0.4 mg PO DAILY [facility] Last Admin: 02/27/17 09:55 Dose: 0.4 mg Warfarin Sodium (Coumadin) 5 mg PO 1800 [facility] Stop: 02/27/17 18:01 - Labs Labs: 02/27/17 08:00 02/27/17 08:00 PT 28.6 SECONDS (9.7-12.2) H D 02/27/17 08:00 INR 2.4 D 02/27/17 08:00 APTT 29 SECONDS (21-34) 02/27/17 08:00 - Constitutional Appears: Well - Head Exam Head Exam: ATRAUMATIC, NORMAL INSPECTION, NORMOCEPHALIC - Eye Exam Eye Exam: EOMI, Normal appearance, PERRL Pupil Exam: NORMAL ACCOMODATION, PERRL - ENT Exam ENT Exam: Mucous Membranes Moist, Normal Exam - Neck Exam Neck Exam: Full ROM, Normal Inspection. absent: Lymphadenopathy - Respiratory Exam Respiratory Exam: Clear to Ausculation Bilateral, NORMAL BREATHING PATTERN - Cardiovascular Exam Cardiovascular Exam: REGULAR RHYTHM, +S1, +S2, Murmur - GI/Abdominal Exam GI & Abdominal Exam: Soft, Normal Bowel Sounds. absent: Tenderness - Extremities Exam Extremities Exam: Full ROM, Normal Capillary Refill, Normal Inspection. absent : Joint Swelling, Pedal Edema - Neurological Exam Neurological Exam: Alert, Awake, CN II-XII Intact, Oriented x3 - Psychiatric Exam Psychiatric exam: Normal Affect, Normal Mood - Skin Skin Exam: Dry, Intact, Normal Color, Warm Assessment and Plan (1) NSVT (nonsustained ventricular tachycardia) Assessment & Plan: stable Status: Acute (2) Atrial fibrillation Assessment & Plan: cont with bb, ccb cont with coumadin cont with amiodarone Status: Acute (3) HTN (hypertension), malignant Assessment & Plan: cont with current meds Status: Acute (4) Critical lower limb ischemia Status: Acute
--- NOTE | 2017-02-27 11:08 | CP.PCM.PN ---
Subjective - Date & Time of Evaluation Date of Evaluation: 02/26/17 Time of Evaluation: 15:00 - Subjective Subjective: still c/o LE discomfort new vesiclular eruption noted BP well controlled HR controlled Objective - Vital Signs/Intake and Output Vital Signs (last 24 hours): Temp Pulse Resp BP Pulse Ox 98.7 F 91 H 20 137/73 96 02/27/17 08:13 02/27/17 09:50 02/27/17 08:13 02/27/17 09:50 02/27/17 08:13 Intake and Output: 02/27/17 02/27/17 06:59 18:59 Intake Total 400 Balance 400 - Medications Medications: Current Medications Amiodarone HCl (Cordarone) 400 mg PO BID [facility] Stop: 03/01/17 18:01 Last Admin: 02/27/17 09:54 Dose: 400 mg Amiodarone HCl (Cordarone) 200 mg PO BID [facility] Chlorthalidone (Hygroton) 25 mg PO DAILY [facility] Last Admin: 02/27/17 09:55 Dose: 25 mg Diltiazem HCl (Cardizem Cd) 360 mg PO DAILY [facility] Last Admin: 02/27/17 09:54 Dose: 360 mg Famotidine (Pepcid) 20 mg PO DAILY [facility] Last Admin: 02/27/17 09:55 Dose: 20 mg Finasteride (Proscar) 5 mg PO DAILY [facility] Last Admin: 02/27/17 09:59 Dose: 5 mg Hydralazine HCl (Apresoline) 10 mg IVP Q6H PRN PRN Reason: Systolic Blood Pressure Sodium Chloride (Sodium Chloride 0.9%) 1,000 mls @ 50 mls/hr IV .Q20H [facility] Levetiracetam (Keppra) 500 mg PO BID [facility] Last Admin: 02/27/17 09:54 Dose: 500 mg Losartan Potassium (Cozaar) 100 mg PO DAILY [facility] Last Admin: 02/27/17 09:54 Dose: 100 mg Metoprolol Tartrate (Lopressor) 100 mg PO Q12 [facility] Last Admin: 02/27/17 09:54 Dose: 100 mg Ondansetron HCl (Zofran Inj) 4 mg IVP Q6 PRN PRN Reason: Nausea/Vomiting Oxycodone HCl (Oxycodone Immediate Release Tab) 5 mg PO Q6 PRN PRN Reason: Pain, severe (8-10) Last Admin: 02/26/17 21:33 Dose: 5 mg Tamsulosin HCl (Flomax) 0.4 mg PO DAILY [facility] Last Admin: 02/27/17 09:55 Dose: 0.4 mg Warfarin Sodium (Coumadin) 5 mg PO 1800 [facility] Stop: 02/27/17 18:01 - Labs Labs: 02/27/17 08:00 02/27/17 08:00 PT 28.6 SECONDS (9.7-12.2) H D 02/27/17 08:00 INR 2.4 D 02/27/17 08:00 APTT 29 SECONDS (21-34) 02/27/17 08:00 - Constitutional Appears: Well - Head Exam Head Exam: ATRAUMATIC, NORMAL INSPECTION, NORMOCEPHALIC - Eye Exam Eye Exam: EOMI, Normal appearance, PERRL Pupil Exam: NORMAL ACCOMODATION, PERRL - ENT Exam ENT Exam: Mucous Membranes Moist, Normal Exam - Neck Exam Neck Exam: Full ROM, Normal Inspection. absent: Lymphadenopathy - Respiratory Exam Respiratory Exam: Clear to Ausculation Bilateral, NORMAL BREATHING PATTERN - Cardiovascular Exam Cardiovascular Exam: Irregular Rhythm, +S1, +S2, Murmur - GI/Abdominal Exam GI & Abdominal Exam: Soft, Normal Bowel Sounds. absent: Tenderness - Extremities Exam Extremities Exam: Full ROM, Normal Capillary Refill, Pedal Edema, Tenderness. absent: Joint Swelling - Neurological Exam Neurological Exam: Alert, Awake, CN II-XII Intact, Oriented x3 - Psychiatric Exam Psychiatric exam: Flat Affect, Normal Mood - Skin Skin Exam: Dry, Intact, Normal Color, Petechiae, Vesicles, Warm Assessment and Plan (1) NSVT (nonsustained ventricular tachycardia) Assessment & Plan: stable Status: Acute (2) Atrial fibrillation Assessment & Plan: on bb, ccb amiodarone on OAC with coumadin INR therapeutic Status: Acute (3) HTN (hypertension), malignant Assessment & Plan: BP stable Status: Acute (4) Critical lower limb ischemia Assessment & Plan: poor prognosis Status: Acute
[2017-02-27] MEDS: Sodium Chloride 0.9% 1,000 ML IV SCH ×2 (17:17→17:18)
[2017-02-28 06:22] LABS: BASO % 0.1 % (0.0-2.0); EOS % 0.3 % (0.0-4.0); HEMATOCRIT 30.2 % (35.0-51.0); LYMPH # 1.5 K/uL (1.0-4.3); LYMPH % 12.9 % (20.0-40.0); MEAN CELL VOLUME 77.5 fL (80.0-94.0); MEAN CORPUSCULAR HGB CONC 34.8 g/dL (33.0-37.0); MEAN PLATELET VOLUME 7.2 fL (7.2-11.7); MONO # 0.5 K/uL (0.0-0.8); MONO % 4.6 % (0.0-10.0); RED CELL DISTRIBUTION WIDTH 15.4 % (11.5-14.5); WHITE BLOOD COUNT 11.4 K/uL (4.8-10.8)
[2017-02-28 06:23] LABS: INR 2.4
[2017-02-28 06:38] LABS: ALB/GLOB RATIO 0.8 (1.0-2.1); ALKALINE PHOSPHATASE 109 U/L (38-126); ALT/SGPT 94 U/L (21-72); AST/SGOT 55 U/L (17-59); BILIRUBIN,TOTAL 0.4 mg/dL (0.2-1.3); BLOOD UREA NITROGEN 17 mg/dL (9-20); CALCIUM 8.2 mg/dl (8.6-10.4); CARBON DIOXIDE 25 mmol/L (22-30); CHLORIDE 96 mmol/L (98-107); GFR AFRICAN-AMERICAN > 60; GLUCOSE,RANDOM 97 mg/dL (75-110); MAGNESIUM 1.7 mg/dL (1.6-2.3); PHOSPHOROUS 3.4 mg/dL (2.5-4.5); POTASSIUM 3.7 mmol/L (3.6-5.2); SODIUM 128 mmol/L (132-148); TOTAL PROTEIN 5.8 g/dL (6.3-8.3)
--- NOTE | 2017-02-28 09:00 | CP.PCM.PN ---
<Edgar Rojas - Last Filed: 02/28/17 08:57> Subjective - Date & Time of Evaluation Date of Evaluation: 02/28/17 Time of Evaluation: 08:57 - Subjective Subjective: PGY1 Note for Dr. Vines HPI: Patient jose luis nd examined at bedside. Doing well with no complaints at this time. States his legs are sore where the dressings are. No chest pain, SOB , N/V/D. Tolerating diet. Being fed by CP at bedside. Objective - Vital Signs/Intake and Output Vital Signs (last 24 hours): Temp Pulse Resp BP Pulse Ox 97.9 F 73 20 124/70 98 02/28/17 07:00 02/28/17 08:00 02/28/17 07:00 02/28/17 07:00 02/28/17 07:00 Intake and Output: 02/28/17 02/28/17 06:59 18:59 Intake Total 700 Balance 700 - Medications Medications: Current Medications Amiodarone HCl (Cordarone) 400 mg PO BID [facility] Stop: 03/01/17 18:01 Last Admin: 02/27/17 17:13 Dose: 400 mg Amiodarone HCl (Cordarone) 200 mg PO BID [facility] Chlorthalidone (Hygroton) 25 mg PO DAILY [facility] Last Admin: 02/27/17 09:55 Dose: 25 mg Diltiazem HCl (Cardizem Cd) 360 mg PO DAILY [facility] Last Admin: 02/27/17 09:54 Dose: 360 mg Famotidine (Pepcid) 20 mg PO DAILY [facility] Last Admin: 02/27/17 09:55 Dose: 20 mg Finasteride (Proscar) 5 mg PO DAILY [facility] Last Admin: 02/27/17 09:59 Dose: 5 mg Hydralazine HCl (Apresoline) 10 mg IVP Q6H PRN PRN Reason: Systolic Blood Pressure Sodium Chloride (Sodium Chloride 0.9%) 1,000 mls @ 50 mls/hr IV .Q20H [facility] Last Admin: 02/27/17 17:18 Dose: Not Given Levetiracetam (Keppra) 500 mg PO BID [facility] Last Admin: 02/27/17 17:13 Dose: 500 mg Losartan Potassium (Cozaar) 100 mg PO DAILY [facility] Last Admin: 02/27/17 09:54 Dose: 100 mg Metoprolol Tartrate (Lopressor) 100 mg PO Q12 [facility] Last Admin: 02/27/17 22:02 Dose: 100 mg Ondansetron HCl (Zofran Inj) 4 mg IVP Q6 PRN PRN Reason: Nausea/Vomiting Oxycodone HCl (Oxycodone Immediate Release Tab) 5 mg PO Q6 PRN PRN Reason: Pain, severe (8-10) Last Admin: 02/26/17 21:33 Dose: 5 mg Tamsulosin HCl (Flomax) 0.4 mg PO DAILY [facility] Last Admin: 02/27/17 09:55 Dose: 0.4 mg - Labs Labs: 02/28/17 06:10 02/28/17 06:10 PT 28.3 SECONDS (9.7-12.2) H 02/28/17 06:10 INR 2.4 02/28/17 06:10 APTT 29 SECONDS (21-34) 02/27/17 08:00 - Constitutional Appears: Chronically Ill - Head Exam Head Exam: ATRAUMATIC, NORMAL INSPECTION, NORMOCEPHALIC - Eye Exam Eye Exam: EOMI Pupil Exam: NORMAL ACCOMODATION - ENT Exam ENT Exam: Mucous Membranes Moist - Neck Exam Neck Exam: Full ROM - Respiratory Exam Respiratory Exam: Clear to Ausculation Bilateral, NORMAL BREATHING PATTERN - Cardiovascular Exam Cardiovascular Exam: REGULAR RHYTHM - GI/Abdominal Exam GI & Abdominal Exam: Soft, Normal Bowel Sounds. absent: Distended, Tenderness - Extremities Exam Extremities Exam: Full ROM, Tenderness (bilateral wounds, Dressing C/D/I) - Neurological Exam Neurological Exam: Altered, Awake - Psychiatric Exam Psychiatric exam: Normal Affect, Normal Mood - Skin Skin Exam: Dry, Intact, Normal Color, Warm Assessment and Plan - Assessment and Plan (Free Text) Assessment: 1). PAD: Coumadin 5 tonight, INR is 2.4, F/U INR. Goal INR is 2.5 as [address] Hoop Maker Dr. Brown. He is on therapeutic Lovenox. Dr. Kaur would like to keep the mehran for now. Daughter Pura [phone] is aware that further surgical intervention ( Femoral Bypass) was not an option as the distal arteries in the bilateral legs could not support this procedure and there is possibility of amputation in the future. The plan for now is to control patient's pain and get the INR therapeutic to at least 2.5 and then discharge patient to home. 02/17: patient had a run of V Tach (5 beats) at 7:46 am. I spoke with Dr. Brown regarding this and he suggested replacing postassium. 20 of K dur was given and will be reassessed tomorrow. Repeat EKG was ordered. We will continue to monitor patient overnight. 02/24: elevated CPK, possible rhabdomyolysis 2/2 immobility, started gentle hydration with NS @50/hr. Bacitracin ointment and wound care consult for ruptured bullae of LLE. 02/26: Xeroform and dressings to wounds on LEs 2). Malignant HTN: Chlorthalidone, Cozaar, Hydralazine PRN, and Cardizem CD 360 mg 1x/day. Machine Hoop Maker Dr. Brown 02/12/17 and he has increased Metoprolol to [address] Angiogram of the Abdomen/Pelvis 02/04/17 did NOT show any evidence of Renal Artery Stenosis. 3). Hx Atrial Fibrillation: Coumadin and INR followup as stated above. Machine Hoop Maker (Dr. Brown) says the goal INR is 2.5. Cardizem CD 360 mg PO 1x/day and Metoprolol 100 mg PO Q12H. His blood pressure is better under control. 4). Hx Seizure Disorder: as his LFTs are elevated, Neurology Consult was ordered with Dr. Onesimo Hogan to see if patient could be switched over to Keppra. Dr. Hogan has placed patient on Keppra 500 mg PO 2x/day 5). Hx Multiple CVAs: Crestor is being held considering the elevated LFTs and that his Lipid Profile is currently WNL. His Lipid profile and LFTs will need to be monitored by his PMD upon discharge 6). Elevated LFTs: could be secondary to the Dilantin and the Crestor. The Crestor is being held and the Dilantin switched over to Keppra. The LFTs will need to be monitored by his PMD upon discharge. LFT elevation is currently stable 7). Elevated WBC: there is NO fever and NO shift. Blood and Urine Culture are negative to date. 8.) Splenic hemangioma: as seen on US, will need follow up CT in 3 months. 9.) BPH: proscar 5 mg PO QD and flomax 0.4 mg QD 10.) Anemia of chronic disease: stable Prophylaxis: Pepcid, Dilaudid, Zofran, Percocet, Simethicone Needle Straightener Leilani has already set up Home Visiting Nurse through [facility] for 6 visits (they will then determine if more is needed afterwards) which Daughter Pura will be paying out of pocket ($150 to $200 a visit). When INR is therapeutic (2.5), then patient can be discharged. Patient will need to follow-up in the [facility] ([phone]) for INR check on to adjust Coumadin. Transportation voucher will need to be completed by Nurse. Disposition: * Awaiting insurance - forms were filled out and put in chart Thursday (02/20) * Needle Straightener Leilani has already set up Home Visiting Nurse (they will then determine if more is needed afterwards) which Daughter Pura will be paying out of pocket ($150 to $200 a visit) prior to events noted above. This was clearly explained to the daughter prior to events noted above. * INR today 2.3, will maintain for tomorrow with Coumadin 5 mg. Patient will need to follow-up in the [facility] ([phone]) for INR check to adjust the Coumadin and f/u with physician--> secured appointments for the patient to accomplish this. * Patient's family expressing fear with what will they do with the patient when he gets home. * We have tried the best of our ability to help this family given lack of insurance status in terms of visiting nursing options, outpatient physical therapy, and attempting to keep his medications affordable and family made aware of out patient/out of pocket costs during hospitalization. * Family has been explained that the severity of peripheral vascular disease and understand in the future amputation is an option. They also understand will need pain control. Patient is a high cardiac risk and would need to be followed by candle wrapping machine operator for further workup as outpatient. * Pain management with PO medications (oxycodone 5 mg Q6 PRN) * Will continue to communicate with social work/case management/palliative care. * Patient will need outpatient follow up for repeat CT of abdomen and pelvis in 3 mon 2/ abnormal abdominal US findings. <Unruly Vines - Last Filed: 02/28/17 19:19> Objective - Vital Signs/Intake and Output Vital Signs (last 24 hours): Temp Pulse Resp BP Pulse Ox 98.1 F 69 20 116/66 96 02/28/17 16:00 02/28/17 16:00 02/28/17 16:00 02/28/17 16:00 02/28/17 16:00 Intake and Output: 02/28/17 03/01/17 18:59 06:59 Intake Total 800 Balance 800 - Medications Medications: Current Medications Amiodarone HCl (Cordarone) 400 mg PO BID [facility] Stop: 03/01/17 18:01 Last Admin: 02/28/17 17:42 Dose: 400 mg Amiodarone HCl (Cordarone) 200 mg PO BID [facility] Chlorthalidone (Hygroton) 25 mg PO DAILY [facility] Last Admin: 02/28/17 09:40 Dose: 25 mg Diltiazem HCl (Cardizem Cd) 360 mg PO DAILY [facility] Last Admin: 02/28/17 09:40 Dose: 360 mg Famotidine (Pepcid) 20 mg PO DAILY [facility] Last Admin: 02/28/17 09:40 Dose: 20 mg Finasteride (Proscar) 5 mg PO DAILY [facility] Last Admin: 02/28/17 09:40 Dose: 5 mg Hydralazine HCl (Apresoline) 10 mg IVP Q6H PRN PRN Reason: Systolic Blood Pressure Sodium Chloride (Sodium Chloride 0.9%) 1,000 mls @ 50 mls/hr IV .Q20H [facility] Last Admin: 02/28/17 14:51 Dose: 50 mls/hr Levetiracetam (Keppra) 500 mg PO BID [facility] Last Admin: 02/28/17 17:42 Dose: 500 mg Losartan Potassium (Cozaar) 100 mg PO DAILY [facility] Last Admin: 02/28/17 09:40 Dose: 100 mg Metoprolol Tartrate (Lopressor) 100 mg PO Q12 [facility] Last Admin: 02/28/17 09:40 Dose: 100 mg Ondansetron HCl (Zofran Inj) 4 mg IVP Q6 PRN PRN Reason: Nausea/Vomiting Oxycodone HCl (Oxycodone Immediate Release Tab) 5 mg PO Q6 PRN PRN Reason: Pain, severe (8-10) Last Admin: 02/26/17 21:33 Dose: 5 mg Tamsulosin HCl (Flomax) 0.4 mg PO DAILY [facility] Last Admin: 02/28/17 09:40 Dose: 0.4 mg Trazodone HCl (Desyrel) 50 mg PO HS PRN PRN Reason: Sleep - Labs Labs: 02/28/17 06:10 02/28/17 06:10 PT 28.3 SECONDS (9.7-12.2) H 02/28/17 06:10 INR 2.4 02/28/17 06:10 APTT 29 SECONDS (21-34) 02/27/17 08:00 Attending/Attestation - Attestation I have personally seen and examined this patient.: Yes I have fully participated in the care of the patient.: Yes I have reviewed all pertinent clinical information, including history, physical exam and plan: Yes Notes (Text): 02/28/17 19:14 Patient was seen and examined at 1:45 PM 02/28/17. Exam, assessment and plan were thoroughly gone over with the resident. Extensive conversation (with assistance of Nurse Huertas who helped to translate) again with patient's who was at the bedside. Explained to her that I felt that the patient's legs were getting worse considering the bilateral bullae with sloughing of the skin, the cool to the touch skin of the toes and feet, slightly black discoloration of the left heal. Explained again what Vascular Surgeon Vincent had explained to Daughter that there was no area suitable for bypassing in the legs and that the next step would be amputation of both lower legs. Awaiting Medicaid to be approved. Paperwork has been completed by family. Once approved then SAR. Unruly Vines D.O.
[2017-02-28] MEDS: diltiaZEM 180 mg/24 Hours CD Cap PO SCH (09:40)
[2017-02-28] MEDS: Sodium Chloride 0.9% 1,000 ML IV SCH (14:51)
--- NOTE | 2017-03-01 00:11 | CP.PCM.PN ---
<Edgar Rojas - Last Filed: 03/01/17 00:09> Subjective - Date & Time of Evaluation Date of Evaluation: 03/01/17 Time of Evaluation: 00:09 - Subjective Subjective: PGY1 Note for Dr. Vines HPI: Patient seen and examined at bedside. History is difficult due to baseline confusion. Patient is tapping on his belly that is clearly distended. Denies chest pain or SOB. Objective - Vital Signs/Intake and Output Vital Signs (last 24 hours): Temp Pulse Resp BP Pulse Ox 98.1 F 69 20 116/66 96 02/28/17 16:00 02/28/17 16:00 02/28/17 16:00 02/28/17 16:00 02/28/17 16:00 Intake and Output: 02/28/17 03/01/17 18:59 06:59 Intake Total 800 Balance 800 - Medications Medications: Current Medications Amiodarone HCl (Cordarone) 400 mg PO BID [facility] Stop: 03/01/17 18:01 Last Admin: 02/28/17 17:42 Dose: 400 mg Amiodarone HCl (Cordarone) 200 mg PO BID [facility] Chlorthalidone (Hygroton) 25 mg PO DAILY [facility] Last Admin: 02/28/17 09:40 Dose: 25 mg Diltiazem HCl (Cardizem Cd) 360 mg PO DAILY [facility] Last Admin: 02/28/17 09:40 Dose: 360 mg Famotidine (Pepcid) 20 mg PO DAILY [facility] Last Admin: 02/28/17 09:40 Dose: 20 mg Finasteride (Proscar) 5 mg PO DAILY [facility] Last Admin: 02/28/17 09:40 Dose: 5 mg Hydralazine HCl (Apresoline) 10 mg IVP Q6H PRN PRN Reason: Systolic Blood Pressure Sodium Chloride (Sodium Chloride 0.9%) 1,000 mls @ 50 mls/hr IV .Q20H [facility] Last Admin: 02/28/17 14:51 Dose: 50 mls/hr Levetiracetam (Keppra) 500 mg PO BID [facility] Last Admin: 02/28/17 17:42 Dose: 500 mg Losartan Potassium (Cozaar) 100 mg PO DAILY [facility] Last Admin: 02/28/17 09:40 Dose: 100 mg Metoprolol Tartrate (Lopressor) 100 mg PO Q12 [facility] Last Admin: 02/28/17 21:40 Dose: 100 mg Ondansetron HCl (Zofran Inj) 4 mg IVP Q6 PRN PRN Reason: Nausea/Vomiting Oxycodone HCl (Oxycodone Immediate Release Tab) 5 mg PO Q6 PRN PRN Reason: Pain, severe (8-10) Last Admin: 02/26/17 21:33 Dose: 5 mg Tamsulosin HCl (Flomax) 0.4 mg PO DAILY [facility] Last Admin: 02/28/17 09:40 Dose: 0.4 mg Trazodone HCl (Desyrel) 50 mg PO HS PRN PRN Reason: Sleep - Labs Labs: 02/28/17 06:10 02/28/17 06:10 PT 28.3 SECONDS (9.7-12.2) H 02/28/17 06:10 INR 2.4 02/28/17 06:10 APTT 29 SECONDS (21-34) 02/27/17 08:00 - Constitutional Appears: Well, Non-toxic, No Acute Distress, Confused - Head Exam Head Exam: ATRAUMATIC, NORMAL INSPECTION, NORMOCEPHALIC - Eye Exam Eye Exam: EOMI Pupil Exam: NORMAL ACCOMODATION - ENT Exam ENT Exam: Mucous Membranes Moist - Respiratory Exam Respiratory Exam: Clear to Ausculation Bilateral - Cardiovascular Exam Cardiovascular Exam: REGULAR RHYTHM - GI/Abdominal Exam GI & Abdominal Exam: Distended, Soft, Normal Bowel Sounds. absent: Tenderness - Extremities Exam Extremities Exam: absent: Joint Swelling, Tenderness Additional comments: b/l dressing C/D/I - Back Exam Back Exam: absent: CVA tenderness (L), CVA tenderness (R) - Neurological Exam Neurological Exam: Alert, Awake - Psychiatric Exam Psychiatric exam: Normal Affect - Skin Skin Exam: Dry, Intact, Normal Color, Warm Assessment and Plan - Assessment and Plan (Free Text) Assessment: Patient had Abdominal distension, F/U abdominal films 1). PAD: Coumadin 5 tonight, INR is 2.4, F/U INR. Goal INR is 2.[address] Brown. He is on therapeutic Lovenox. Dr. Kaur would like to keep the mehran for now. Daughter Pura [phone] is aware that further surgical intervention ( Femoral Bypass) was not an option as the distal arteries in the bilateral legs could not support this procedure and there is possibility of amputation in the future. The plan for now is to control patient's pain and get the INR therapeutic to at least 2.5 and then discharge patient to home. 02/17: patient had a run of V Tach (5 beats) at 7:46 am. I spoke with Dr. Brown regarding this and he suggested replacing postassium. 20 of K dur was given and will be reassessed tomorrow. Repeat EKG was ordered. We will continue to monitor patient overnight. 02/24: elevated CPK, possible rhabdomyolysis 2/2 immobility, started gentle hydration with NS @50/hr. Bacitracin ointment and wound care consult for ruptured bullae of LLE. 02/26: Xeroform and dressings to wounds on LEs 2). Malignant HTN: Chlorthalidone, Cozaar, Hydralazine PRN, and Cardizem CD 360 mg 1x/day. Loan Representative Dr. Brown 02/12/17 and he has increased Metoprolol to [address] Angiogram of the Abdomen/Pelvis 02/04/17 did NOT show any evidence of Renal Artery Stenosis. 3). Hx Atrial Fibrillation: Coumadin and INR followup as stated above. Loan Representative (Dr. Brown) says the goal INR is 2.5. Cardizem CD 360 mg PO 1x/day and Metoprolol 100 mg PO Q12H. His blood pressure is better under control. 4). Hx Seizure Disorder: as his LFTs are elevated, Neurology Consult was ordered with Dr. Onesimo Hogan to see if patient could be switched over to Keppra. Dr. Hogan has placed patient on Keppra 500 mg PO 2x/day 5). Hx Multiple CVAs: Crestor is being held considering the elevated LFTs and that his Lipid Profile is currently WNL. His Lipid profile and LFTs will need to be monitored by his PMD upon discharge 6). Elevated LFTs: could be secondary to the Dilantin and the Crestor. The Crestor is being held and the Dilantin switched over to Keppra. The LFTs will need to be monitored by his PMD upon discharge. LFT elevation is currently stable 7). Elevated WBC: there is NO fever and NO shift. Blood and Urine Culture are negative to date. 8.) Splenic hemangioma: as seen on US, will need follow up CT in 3 months. 9.) BPH: proscar 5 mg PO QD and flomax 0.4 mg QD 10.) Anemia of chronic disease: stable Prophylaxis: Pepcid, Dilaudid, Zofran, Percocet, Simethicone Tobacco Classer Leilani has already set up Home Visiting Nurse through [facility] for 6 visits (they will then determine if more is needed afterwards) which Daughter Pura will be paying out of pocket ($150 to $200 a visit). When INR is therapeutic (2.5), then patient can be discharged. Patient will need to follow-up in the [facility] ([phone]) for INR check on to adjust Coumadin. Transportation voucher will need to be completed by Nurse. Disposition: * Awaiting insurance - forms were filled out and put in chart Thursday (02/20) * Tobacco Classer Leilani has already set up Home Visiting Nurse (they will then determine if more is needed afterwards) which Daughter Pura will be paying out of pocket ($150 to $200 a visit) prior to events noted above. This was clearly explained to the daughter prior to events noted above. * INR today 2.3, will maintain for tomorrow with Coumadin 5 mg. Patient will need to follow-up in the [facility] ([phone]) for INR check to adjust the Coumadin and f/u with physician--> secured appointments for the patient to accomplish this. * Patient's family expressing fear with what will they do with the patient when he gets home. * We have tried the best of our ability to help this family given lack of insurance status in terms of visiting nursing options, outpatient physical therapy, and attempting to keep his medications affordable and family made aware of out patient/out of pocket costs during hospitalization. * Family has been explained that the severity of peripheral vascular disease and understand in the future amputation is an option. They also understand will need pain control. Patient is a high cardiac risk and would need to be followed by meter repair shop supervisor for further workup as outpatient. * Pain management with PO medications (oxycodone 5 mg Q6 PRN) * Will continue to communicate with social work/case management/palliative care. * Patient will need outpatient follow up for repeat CT of abdomen and pelvis in 3 mon 07/10 abnormal abdominal US findings. <Unruly Vines - Last Filed: 03/01/17 19:53> Objective - Vital Signs/Intake and Output Vital Signs (last 24 hours): Temp Pulse Resp BP Pulse Ox 100.3 F H 67 20 144/67 96 03/01/17 18:00 03/01/17 16:21 03/01/17 16:21 03/01/17 16:21 03/01/17 16:21 - Medications Medications: Current Medications Amiodarone HCl (Cordarone) 200 mg PO BID [facility] Chlorthalidone (Hygroton) 25 mg PO DAILY [facility] Last Admin: 03/01/17 09:27 Dose: 25 mg Diltiazem HCl (Cardizem Cd) 360 mg PO DAILY [facility] Last Admin: 03/01/17 09:22 Dose: 360 mg Famotidine (Pepcid) 20 mg PO DAILY [facility] Last Admin: 03/01/17 09:22 Dose: 20 mg Finasteride (Proscar) 5 mg PO DAILY [facility] Last Admin: 03/01/17 09:22 Dose: 5 mg Hydralazine HCl (Apresoline) 10 mg IVP Q6H PRN PRN Reason: Systolic Blood Pressure Sodium Chloride (Sodium Chloride 0.9%) 1,000 mls @ 50 mls/hr IV .Q20H [facility] Last Admin: 03/01/17 09:23 Dose: 50 mls/hr Levetiracetam (Keppra) 500 mg PO BID [facility] Last Admin: 03/01/17 17:35 Dose: 500 mg Losartan Potassium (Cozaar) 100 mg PO DAILY [facility] Last Admin: 03/01/17 09:23 Dose: 100 mg Metoprolol Tartrate (Lopressor) 100 mg PO Q12 [facility] Last Admin: 03/01/17 09:23 Dose: 100 mg Ondansetron HCl (Zofran Inj) 4 mg IVP Q6 PRN PRN Reason: Nausea/Vomiting Oxycodone HCl (Oxycodone Immediate Release Tab) 5 mg PO Q6 PRN PRN Reason: Pain, severe (8-10) Last Admin: 02/26/17 21:33 Dose: 5 mg Tamsulosin HCl (Flomax) 0.4 mg PO DAILY [facility] Last Admin: 03/01/17 09:27 Dose: 0.4 mg Trazodone HCl (Desyrel) 50 mg PO HS PRN PRN Reason: Sleep - Labs Labs: 03/01/17 08:09 03/01/17 08:09 PT 29.1 SECONDS (9.7-12.2) H 03/01/17 08:09 INR 2.5 03/01/17 08:09 APTT 29 SECONDS (21-34) 02/27/17 08:00 Attending/Attestation - Attestation I have personally seen and examined this patient.: Yes I have fully participated in the care of the patient.: Yes I have reviewed all pertinent clinical information, including history, physical exam and plan: Yes Notes (Text): 03/01/17 19:50 Patient was seen and examined at 8:45 AM 03/01/17. Exam, assessment and plan were thoroughly gone over with the resident. The following was the conversation that I had with the patient's on 02/28/17 : Extensive conversation (with assistance of Nurse Huertas who helped to translate ) again with patient's who was at the bedside. Explained to her that I felt that the patient's legs were getting worse considering the bilateral bullae with sloughing of the skin, the cool to the touch skin of the toes and feet, slightly black discoloration of the left heal. Explained again what Vascular Surgeon Vincent had explained to Daughter that there was no area suitable for bypassing in the legs and that the next step would be amputation of both lower legs. I had the same conversation with the patient's Daughter Pura who had called to speak with patient. I explained to Pura that her father's feet and legs were likely becoming necrotic and that this would eventually lead to sepsis which would likely lead to . She expressed understanding and stated that she would be back from [place] later this week. I spoke with Dr. Kaur and explained my conversations with both the patient' s and daughter. Awaiting Medicaid to be approved. Paperwork has been completed by family. Once approved then SAR. Unruly Vines D.O.
[2017-03-01 08:26] LABS: BASO % 0.1 % (0.0-2.0); EOS % 0.1 % (0.0-4.0); HEMATOCRIT 30.7 % (35.0-51.0); INR 2.5; LYMPH # 1.1 K/uL (1.0-4.3); LYMPH % 11.5 % (20.0-40.0); MEAN CELL VOLUME 77.5 fL (80.0-94.0); MEAN CORPUSCULAR HGB CONC 34.8 g/dL (33.0-37.0); MEAN PLATELET VOLUME 7.3 fL (7.2-11.7); MONO # 0.6 K/uL (0.0-0.8); MONO % 6.1 % (0.0-10.0); WHITE BLOOD COUNT 9.7 K/uL (4.8-10.8)
[2017-03-01 08:48] LABS: CHLORIDE 95 mmol/L (98-107)
[2017-03-01 08:49] LABS: SODIUM 131 mmol/L (132-148)
--- NOTE | 2017-03-01 08:49 | RAD ---
Abdomen single frontal view History: Abdominal distention. Comparison: None available. Findings: Limited study as a portion of the right taniya abdomen is excluded. Surgical clips project over the pelvis. Moderate fecal retention in the colon. Distended/dilated loops of small bowel seen in the mid abdomen. Degenerative changes in the spine and shoulders. Impression: Nonspecific bowel gas pattern with distended/dilated loops of small bowel in the mid abdomen which may represent an ileus and/or partial obstruction. Moderate fecal retention throughout remainder of the colon.
[2017-03-01 08:52] LABS: ALB/GLOB RATIO 0.7 (1.0-2.1); ALKALINE PHOSPHATASE 107 U/L (38-126); ALT/SGPT 84 U/L (21-72); AST/SGOT 54 U/L (17-59); BILIRUBIN,TOTAL 0.4 mg/dL (0.2-1.3); BLOOD UREA NITROGEN 17 mg/dL (9-20); CARBON DIOXIDE 26 mmol/L (22-30); GFR AFRICAN-AMERICAN > 60; GLUCOSE,RANDOM 85 mg/dL (75-110); PHOSPHOROUS 3.4 mg/dL (2.5-4.5)
[2017-03-01 08:53] LABS: CALCIUM 8.3 mg/dl (8.6-10.4); MAGNESIUM 1.6 mg/dL (1.6-2.3)
[2017-03-01] MEDS: diltiaZEM 180 mg/24 Hours CD Cap PO SCH (09:22)
[2017-03-01] MEDS: Sodium Chloride 0.9% 1,000 ML IV SCH (09:23)
[2017-03-02 07:49] LABS: BASO % 0.2 % (0.0-2.0); HEMATOCRIT 28.5 % (35.0-51.0); LYMPH # 1.2 K/uL (1.0-4.3); MEAN CELL VOLUME 77.4 fL (80.0-94.0); MEAN CORPUSCULAR HEMOGLOBIN 26.3 pg (27.0-31.0); MEAN CORPUSCULAR HGB CONC 33.9 g/dL (33.0-37.0); MONO # 0.7 K/uL (0.0-0.8); MONO % 5.4 % (0.0-10.0); PLATELET COUNT 328 K/uL (130-400); RED CELL DISTRIBUTION WIDTH 15.3 % (11.5-14.5); WHITE BLOOD COUNT 13.4 K/uL (4.8-10.8)
[2017-03-02 07:53] LABS: INR 2.9
[2017-03-02 07:58] LABS: CHLORIDE 96 mmol/L (98-107)
[2017-03-02 07:59] LABS: POTASSIUM 3.1 mmol/L (3.6-5.2); SODIUM 131 mmol/L (132-148)
[2017-03-02 08:01] LABS: AST/SGOT 46 U/L (17-59); BILIRUBIN,TOTAL 0.5 mg/dL (0.2-1.3); BLOOD UREA NITROGEN 26 mg/dL (9-20); CARBON DIOXIDE 20 mmol/L (22-30); GFR AFRICAN-AMERICAN > 60; TOTAL PROTEIN 5.6 g/dL (6.3-8.3)
[2017-03-02 08:02] LABS: ALKALINE PHOSPHATASE 96 U/L (38-126); ALT/SGPT 71 U/L (21-72); CALCIUM 7.8 mg/dl (8.6-10.4); GLUCOSE,RANDOM 81 mg/dL (75-110); MAGNESIUM 1.7 mg/dL (1.6-2.3); PHOSPHOROUS 3.8 mg/dL (2.5-4.5)
[2017-03-02 08:04] LABS: ALB/GLOB RATIO 0.8 (1.0-2.1)
[2017-03-02 08:29] LABS: NEUTROPHIL 87 % (50-75); TOTAL CELLS COUNTED 100
--- NOTE | 2017-03-02 08:46 | CP.PCM.PN ---
Subjective - Date & Time of Evaluation Date of Evaluation: 03/02/17 Time of Evaluation: 08:46 - Subjective Subjective: pt confused in restraints HR stable Objective - Vital Signs/Intake and Output Vital Signs (last 24 hours): Temp Pulse Resp BP Pulse Ox 98.5 F 83 20 110/61 94 L 03/02/17 08:44 03/02/17 08:44 03/02/17 08:44 03/02/17 08:44 03/02/17 08:44 - Medications Medications: Current Medications Amiodarone HCl (Cordarone) 200 mg PO BID [facility] Chlorthalidone (Hygroton) 25 mg PO DAILY [facility] Last Admin: 03/01/17 09:27 Dose: 25 mg Diltiazem HCl (Cardizem Cd) 360 mg PO DAILY [facility] Last Admin: 03/01/17 09:22 Dose: 360 mg Famotidine (Pepcid) 20 mg PO DAILY [facility] Last Admin: 03/01/17 09:22 Dose: 20 mg Finasteride (Proscar) 5 mg PO DAILY [facility] Last Admin: 03/01/17 09:22 Dose: 5 mg Hydralazine HCl (Apresoline) 10 mg IVP Q6H PRN PRN Reason: Systolic Blood Pressure Sodium Chloride (Sodium Chloride 0.9%) 1,000 mls @ 50 mls/hr IV .Q20H [facility] Last Admin: 03/01/17 09:23 Dose: 50 mls/hr Levetiracetam (Keppra) 500 mg PO BID [facility] Last Admin: 03/01/17 17:35 Dose: 500 mg Losartan Potassium (Cozaar) 100 mg PO DAILY [facility] Last Admin: 03/01/17 09:23 Dose: 100 mg Metoprolol Tartrate (Lopressor) 100 mg PO Q12 [facility] Last Admin: 03/01/17 21:58 Dose: 100 mg Ondansetron HCl (Zofran Inj) 4 mg IVP Q6 PRN PRN Reason: Nausea/Vomiting Oxycodone HCl (Oxycodone Immediate Release Tab) 5 mg PO Q6 PRN PRN Reason: Pain, severe (8-10) Last Admin: 02/26/17 21:33 Dose: 5 mg Tamsulosin HCl (Flomax) 0.4 mg PO DAILY [facility] Last Admin: 03/01/17 09:27 Dose: 0.4 mg Trazodone HCl (Desyrel) 50 mg PO HS PRN PRN Reason: Sleep Last Admin: 03/01/17 21:58 Dose: 50 mg - Labs Labs: 03/02/17 07:42 03/02/17 07:42 PT 35.0 SECONDS (9.7-12.2) H* D 03/02/17 07:42 INR 2.9 03/02/17 07:42 APTT 29 SECONDS (21-34) 02/27/17 08:00 - Constitutional Appears: Well - Head Exam Head Exam: ATRAUMATIC, NORMAL INSPECTION, NORMOCEPHALIC - Eye Exam Eye Exam: EOMI, Normal appearance, PERRL Pupil Exam: NORMAL ACCOMODATION, PERRL - ENT Exam ENT Exam: Mucous Membranes Moist, Normal Exam - Neck Exam Neck Exam: Full ROM, Normal Inspection. absent: Lymphadenopathy - Respiratory Exam Respiratory Exam: Clear to Ausculation Bilateral, NORMAL BREATHING PATTERN - Cardiovascular Exam Cardiovascular Exam: Irregular Rhythm, +S1, +S2, Murmur - GI/Abdominal Exam GI & Abdominal Exam: Soft, Normal Bowel Sounds. absent: Tenderness - Extremities Exam Extremities Exam: Full ROM, Normal Capillary Refill, Normal Inspection. absent : Joint Swelling, Pedal Edema - Back Exam Back Exam: NORMAL INSPECTION - Neurological Exam Neurological Exam: Alert, Awake, CN II-XII Intact, Oriented x3 - Psychiatric Exam Psychiatric exam: Flat Affect - Skin Skin Exam: Dry, Intact, Normal Color, Vesicles, Warm Assessment and Plan (1) NSVT (nonsustained ventricular tachycardia) Assessment & Plan: stable no more episodes noted on amiodarone Status: Acute (2) Atrial fibrillation Assessment & Plan: HR controlled on BB and CCB cont coumadin and amiodarone Status: Acute (3) HTN (hypertension), malignant Assessment & Plan: cont current meds Status: Acute (4) Critical lower limb ischemia Assessment & Plan: poor prognosis vascular sx following Status: Acute
--- NOTE | 2017-03-02 08:57 | VASCLAB ---
PROCEDURE: Right Lower Extremity Venous Duplex Exam. HISTORY: + calf tenderness PRIORS: None. TECHNIQUE: Right common femoral, femoral, popliteal and posterior tibial, peroneal and great saphenous veins were evaluated. Flow was assessed with color Doppler, compressibility, assessment of phasic flow and augmentation response. Report prepared by FRANCISCO Jose, RVT FINDINGS: RIGHT: 1. Common Femoral Vein: 1.1. Compressibility - Fully compressible: Thrombus - None: Flow - Phasic: Augmentation -Normal: Reflux - None. 2. Femoral Vein: 2.1. Compressibility - Fully compressible: Thrombus - None: Flow - Phasic: Augmentation -Normal: Reflux - None. 3. Popliteal Vein: 3.1. Compressibility - Fully compressible: Thrombus - None: Flow - Phasic: Augmentation -Normal: Reflux - None. 4. Posterior Tibial Vein: 4.1. Compressibility - Fully compressible: Thrombus - None: Flow - Phasic: Augmentation -Normal: Reflux - None. 5. Peroneal Vein: 5.1. Compressibility - Fully compressible: Thrombus - None: Flow - Phasic: Augmentation -Normal: Reflux - None. 6. Great Saphenous Vein: 6.1. Compressibility - Partial: Thrombus -Chronic: Flow - Reduced : Augmentation - Reduced: Reflux - None. OTHER FINDINGS: VIRAL Ortiz notified about the findings. 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 No evidence of deep vein thrombosis of the right lower extremity with excellent venous flow. Normal valve function noted of the right side. Normal venous flow noted in the left common femoral vein.
[2017-03-02] MEDS ORDERED: Potassium Chloride 20 mEq ER Tab PO ONE (09:26)
--- NOTE | 2017-03-02 09:40 | CP.PCM.PN ---
Addendum entered and electronically signed by Radha Garcia DO 03/02/17 15:53: per nursing staff, patient has bullae on anterior tibial wounds. Wound care nursing on board to take care of wounds wound culture ordered coumadin, changed to 1mg for tonight, not held Physical exam: bilateral leg with peripheral vascular disease delayed capillary refill pitting edema of the left foot 2+ faintly palpable pulses of left foot. Addendum entered and electronically signed by Radha Garcia DO 03/02/17 15:47: Patient had a temperature overnight of 100.3, tylenol was administered per Night resident Original Note: <Radha Garcia - Last Filed: 03/02/17 15:44> Subjective - Date & Time of Evaluation Date of Evaluation: 03/02/17 Time of Evaluation: 09:37 - Subjective Subjective: Internal Medicine Progress note for Dr. Skinner Patient seen and examined at bedside. Patient states his leg hurts all of the time, but he feels better overall. Patient denies Fever, Chills, nausea, vomiting. chest pain, SOB Objective - Vital Signs/Intake and Output Vital Signs (last 24 hours): Temp Pulse Resp BP Pulse Ox 98.5 F 83 20 110/61 94 L 03/02/17 08:44 03/02/17 08:44 03/02/17 08:44 03/02/17 08:44 03/02/17 08:44 - Medications Medications: Current Medications Amiodarone HCl (Cordarone) 200 mg PO BID [facility] Chlorthalidone (Hygroton) 25 mg PO DAILY [facility] Last Admin: 03/01/17 09:27 Dose: 25 mg Diltiazem HCl (Cardizem Cd) 360 mg PO DAILY [facility] Last Admin: 03/01/17 09:22 Dose: 360 mg Famotidine (Pepcid) 20 mg PO DAILY [facility] Last Admin: 03/01/17 09:22 Dose: 20 mg Finasteride (Proscar) 5 mg PO DAILY [facility] Last Admin: 03/01/17 09:22 Dose: 5 mg Hydralazine HCl (Apresoline) 10 mg IVP Q6H PRN PRN Reason: Systolic Blood Pressure Sodium Chloride (Sodium Chloride 0.9%) 1,000 mls @ 50 mls/hr IV .Q20H [facility] Last Admin: 03/01/17 09:23 Dose: 50 mls/hr Levetiracetam (Keppra) 500 mg PO BID [facility] Last Admin: 03/01/17 17:35 Dose: 500 mg Losartan Potassium (Cozaar) 100 mg PO DAILY [facility] Last Admin: 03/01/17 09:23 Dose: 100 mg Metoprolol Tartrate (Lopressor) 100 mg PO Q12 [facility] Last Admin: 03/01/17 21:58 Dose: 100 mg Ondansetron HCl (Zofran Inj) 4 mg IVP Q6 PRN PRN Reason: Nausea/Vomiting Oxycodone HCl (Oxycodone Immediate Release Tab) 5 mg PO Q6 PRN PRN Reason: Pain, severe (8-10) Last Admin: 02/26/17 21:33 Dose: 5 mg Tamsulosin HCl (Flomax) 0.4 mg PO DAILY [facility] Last Admin: 03/01/17 09:27 Dose: 0.4 mg Trazodone HCl (Desyrel) 50 mg PO HS PRN PRN Reason: Sleep Last Admin: 03/01/17 21:58 Dose: 50 mg - Labs Labs: 03/02/17 07:42 03/02/17 07:42 PT 35.0 SECONDS (9.7-12.2) H* D 03/02/17 07:42 INR 2.9 03/02/17 07:42 APTT 29 SECONDS (21-34) 02/27/17 08:00 Assessment and Plan - Assessment and Plan (Free Text) Assessment: 1). PAD: INR 2.9 today, repeat INR 3.4 @ 13:59, coumadin held Goal INR is 2.5 per Cardiology Consult: Dr. Brown therapeutic Lovenox Surgery Consult: Dr. Kaur would like to keep the meharn for now. Daughter Pura [phone] is aware that further surgical intervention ( Femoral Bypass) was not an option as the distal arteries in the bilateral legs could not support this procedure and there is possibility of amputation in the future. The plan for now is to control patient's pain and get the INR therapeutic to at least 2.5 and then discharge patient to home. 02/17: patient had a run of V Tach (5 beats) at 7:46 am. I spoke with Dr. Brown regarding this and he suggested replacing postassium. 20 of K dur was given and will be reassessed tomorrow. Repeat EKG was ordered. We will continue to monitor patient overnight. 02/24: elevated CPK, possible rhabdomyolysis 2/2 immobility, started gentle hydration with NS @50/hr. Bacitracin ointment and wound care consult for ruptured bullae of LLE. 02/26: Xeroform and dressings to wounds on LEs 2). Malignant HTN: Chlorthalidone, Cozaar, Hydralazine PRN, and Cardizem CD 360 mg 1x/day 02/12/17 and he has increased Metoprolol to 100 mg PO Q12H by Cardiology 02/04: CT Angiogram of the Abdomen/Pelvis no evidence of Renal Artery Stenosis. 3). Hx Atrial Fibrillation Coumadin and INR Cardizem CD 360 mg PO 1x/day and Metoprolol 100 mg PO Q12H 4). Hx Seizure Disorder Neurology Consult: Dr. Onesimo Hogan for elevated LFTs, switch to Keppra Keppra 500 mg PO 2x/day 5). Hx Multiple CVAs Crestor held d/t LFTs Lipid Profile currently WNL Lipid profile and LFTs will need to be monitored by his PMD upon discharge 6). Elevated LFTs: could be secondary to the Dilantin and the Crestor, both held. f/u LFTs will need to be monitored by his PMD upon discharge LFT elevation is currently stable 7). Elevated WBC 02/10 Blood Cx Negative 02/10 Urine Cx Negative Ordered Blood cx, straight cath UA, straight cath Urine cx, CXR 8.) Splenic hemangioma Abdominal US f/u CT in 3 months. 9.) BPH Proscar 5 mg PO QD and flomax 0.4 mg QD 10.) Anemia of chronic disease: stable Prophylaxis: Pepcid, Dilaudid, Zofran, Percocet, Simethicone Application Architect Manager Leilani: Home Visiting Nurse through [facility] for 6 visits ( they will then determine if more is needed afterwards). Daughter Pura will be paying out of pocket ($150 to $200 a visit). When INR is therapeutic (2.5), then patient can be discharged. Patient will need to follow-up in the [facility] ([phone]) for INR check on to adjust Coumadin. Transportation voucher will need to be completed by Nurse. Disposition: * Awaiting insurance - forms were filled out and put in chart Thursday (02/20) * Application Architect Manager Leilani has already set up Home Visiting Nurse (they will then determine if more is needed afterwards) which Daughter Pura will be paying out of pocket ($150 to $200 a visit) prior to events noted above. This was clearly explained to the daughter prior to events noted above. * INR today 2.3, will maintain for tomorrow with Coumadin 5 mg. Patient will need to follow-up in the [facility] ([phone]) for INR check to adjust the Coumadin and f/u with physician--> secured appointments for the patient to accomplish this. * Patient's family expressing fear with what will they do with the patient when he gets home. * We have tried the best of our ability to help this family given lack of insurance status in terms of visiting nursing options, outpatient physical therapy, and attempting to keep his medications affordable and family made aware of out patient/out of pocket costs during hospitalization. * Family has been explained that the severity of peripheral vascular disease and understand in the future amputation is an option. They also understand will need pain control. Patient is a high cardiac risk and would need to be followed by tool crib clerk for further workup as outpatient. * Pain management with PO medications (oxycodone 5 mg Q6 PRN) * Will continue to communicate with social work/case management/palliative care. * Patient will need outpatient follow up for repeat CT of abdomen and pelvis in 3 mon 07/10 abnormal abdominal US findings. <Alexandra Skinner V - Last Filed: 03/16/17 19:31> Objective - Vital Signs/Intake and Output Vital Signs (last 24 hours): Temp Pulse Resp BP Pulse Ox 98.1 F 54 L 20 94/58 L 98 03/16/17 15:15 03/16/17 17:12 03/16/17 15:15 03/16/17 17:12 03/16/17 16:07 Intake and Output: 03/16/17 03/17/17 18:59 06:59 Intake Total 700 Output Total 600 Balance 100 - Medications Medications: Current Medications Amiodarone HCl (Cordarone) 200 mg PO BID [facility] Last Admin: 03/16/17 18:31 Dose: Not Given Aspirin (Aspirin Chewable) 81 mg PO DAILY [facility] Last Admin: 03/16/17 09:07 Dose: 81 mg Diltiazem HCl (Cardizem Cd) 360 mg PO DAILY [facility] Last Admin: 03/16/17 09:08 Dose: 360 mg Docusate Sodium (Colace) 100 mg PO BID [facility] Last Admin: 03/16/17 18:29 Dose: 100 mg Famotidine (Pepcid) 20 mg PO DAILY [facility] Last Admin: 03/16/17 09:11 Dose: 20 mg Finasteride (Proscar) 5 mg PO DAILY [facility] Last Admin: 03/16/17 09:11 Dose: 5 mg Gabapentin (Neurontin) 300 mg PO TID [facility] Last Admin: 03/16/17 18:30 Dose: 300 mg Lactobacillus Acidophilus (Bacid Acidophilus) 1 cap PO BID [facility] Stop: 04/14/17 18:00 Last Admin: 03/16/17 18:28 Dose: 1 cap Levetiracetam (Keppra) 500 mg PO BID [facility] Last Admin: 03/16/17 18:29 Dose: 500 mg Losartan Potassium (Cozaar) 25 mg PO DAILY [facility] Last Admin: 03/16/17 09:09 Dose: 25 mg Metoprolol Tartrate (Lopressor) 100 mg PO Q12 [facility] Last Admin: 03/16/17 09:10 Dose: 100 mg Morphine Sulfate (Morphine) 2 mg IVP Q4 PRN PRN Reason: Pain, severe (8-10) Last Admin: 03/16/17 10:16 Dose: 2 mg Ondansetron HCl (Zofran Inj) 4 mg IVP Q6 PRN PRN Reason: Nausea/Vomiting Tamsulosin HCl (Flomax) 0.4 mg PO DAILY [facility] Last Admin: 03/16/17 09:09 Dose: 0.4 mg - Labs Labs: 03/16/17 11:23 03/16/17 11:23 PT 26.3 SECONDS (9.7-12.2) H 03/16/17 06:53 INR 2.3 03/16/17 06:53 APTT 28 SECONDS (21-34) D 03/09/17 11:30 Attending/Attestation - Attestation I have personally seen and examined this patient.: Yes I have fully participated in the care of the patient.: Yes I have reviewed all pertinent clinical information, including history, physical exam and plan: Yes Notes (Text): This is late computer entry for 03/02/17. Patient seen, examined and case discussed with day-time resident. Patient spiked a fever overnight. Ordered for wound, blood and urine culture. Patient ordered for Coumadin 1mg PO tonight; f/u INR. Will need to monitor leg wounds currently covered in dressing. Assessment/Plan 1). severe PAD: * Printing Bindery Assistant Dr. Brown on the case help appreciated * Vascular surgery Dr Kaur on the case help appreciated * s/p 02/05/17 Femoral embolectomy via groin incision, right and left with intraoperative angiograms-->bilateral femoral embolectomy by groin incision and angiography-->clot removed by the right lower extremity; no clot from the left. * My colleague Dr. Milton Vines had extensive conversation with Daughter Pura on 02/12/17. Both Dr. Brown and Dr. Kaur along with him explained that at this point the best option was to control the patient's pain as further surgical intervention (Femoral Bypass) was not an option as the distal arteries in the bilateral legs could not support this procedure. The subject of the possibility of amputation in the future was also discussed. The plan for now is to control patient's pain and get the INR therapeutic to at least 2.5 and then discharge patient to home. Pura expressed understanding. * This conversation was had again on 02/19/17 with the daughter, Pura by myself who translated to patient's who is resistant to taking the patient home. Family understands that patient may need amputation in the future and he is high risk for procedure * My colleague has also spoken with on 02/28 and daughter over the weekend on 03/01 given the worsening condition of his legs 2). Malignant HTN Chlorthalidone 25mg PO daily, Cozaar 100mg PO daily Hydralazine 10mg IV Q 6hour PRN Give above 160 SBP Cardizem CD 360 mg 1x/day Metoprolol 100mg PO Q bid. Printing Bindery Assistant Dr. Brown 02/12/[address] Angiogram of the Abdomen/Pelvis 02/04/17 did NOT show any evidence of Renal Artery Stenosis 3). Hx Atrial Fibrillation: INR: 3.4--->to be reversed for b/l amputations tomorrow given sepsis picture. Discussed with cardiology, patient going for procedure in light of sepsis Cardizem CD 360 mg PO 1x/day and Metoprolol 100 mg PO Q12H start to Amiodarone 400mg PO BID X 7days, Amiodarone 200mg PO BID thereafter 4). Hx Seizure Disorder: as his LFTs are elevated. Neurology Consult was ordered with Dr. Onesimo Hogan to see if patient could be switched over to Keppra. Dr. Hogan has placed patient on Keppra 500 mg PO 2x/day 5). Hx Multiple CVAs: Crestor is being held considering the elevated LFTs and that his Lipid Profile is currently WNL. His Lipid profile and LFTs will need to be monitored by his PMD upon discharge. 6). Elevated LFTs: could be secondary to the Dilantin and the Crestor. The Crestor is being held and the Dilantin switched over to Keppra. The LFTs will need to be monitored by his PMD upon discharge. LFT elevation is currently stable. Ordered for hepatitis panel which is negative. Abdominal US: shows adenomyosis of gallbladder and other findings; will need outpatient follow-up with GI. 7). Elevated WBC: there is fever on 03/02/17 ordered for blood, wound, urine 8) Elevated CPK: Gentle IV hydration. Nephrology consult not rhabdo; likely due to severe perpherial artery disease 9) Enlarged prostate, Urinary Retention. Renal US: high postvoid residual and enlarged prostate. Nephrology started on Flomax 0.4mg PO daily and Proscar 5mg PO daily 10). Prophylaxis: Pepcid, Dilaudid, Zofran, Coumadin 1mg PO tonight Disposition: * Patient ordered for repeat blood, urine and leg cultures in light of fever spike.
[2017-03-02] MEDS: Sodium Chloride 0.9% 1,000 ML IV SCH (10:06)
[2017-03-02] MEDS: diltiaZEM 180 mg/24 Hours CD Cap PO SCH (10:57)
[2017-03-02 14:18] LABS: INR 3.4
--- NOTE | 2017-03-02 16:52 | CP.PCM.PN ---
Subjective - Date & Time of Evaluation Date of Evaluation: 03/02/17 Time of Evaluation: 10:00 - Subjective Subjective: Kolby Pearce DO PGY1 - Cardiology Progress Note for Dr. Brown Patient seen and examined at bedside. Patient has h/o of dementia and now appears somewhat confused, has glove restraints on because he is reportedly pulling lines out. He is awake, alert, obeying simple commands. Denies any CP, SOB, palpitations, CARREON. Continues to have b/l leg pain, but feels better overall. Patient seen, discussed, and reviewed with attending Objective - Vital Signs/Intake and Output Vital Signs (last 24 hours): Temp Pulse Resp BP Pulse Ox 98.5 F 83 20 110/61 94 L 03/02/17 08:44 03/02/17 08:44 03/02/17 08:44 03/02/17 08:44 03/02/17 08:44 Intake and Output: 03/02/17 03/02/17 06:59 18:59 Intake Total 350 Balance 350 - Medications Medications: Current Medications Amiodarone HCl (Cordarone) 200 mg PO BID [facility] Chlorthalidone (Hygroton) 25 mg PO DAILY [facility] Last Admin: 03/02/17 10:57 Dose: 25 mg Diltiazem HCl (Cardizem Cd) 360 mg PO DAILY [facility] Last Admin: 03/02/17 10:57 Dose: 360 mg Famotidine (Pepcid) 20 mg PO DAILY [facility] Last Admin: 03/02/17 10:57 Dose: 20 mg Finasteride (Proscar) 5 mg PO DAILY [facility] Last Admin: 03/02/17 10:57 Dose: 5 mg Hydralazine HCl (Apresoline) 10 mg IVP Q6H PRN PRN Reason: Systolic Blood Pressure Sodium Chloride (Sodium Chloride 0.9%) 1,000 mls @ 50 mls/hr IV .Q20H [facility] Last Admin: 03/02/17 10:06 Dose: Not Given Levetiracetam (Keppra) 500 mg PO BID [facility] Last Admin: 03/02/17 10:57 Dose: 500 mg Losartan Potassium (Cozaar) 100 mg PO DAILY [facility] Last Admin: 03/02/17 10:57 Dose: 100 mg Metoprolol Tartrate (Lopressor) 100 mg PO Q12 [facility] Last Admin: 03/02/17 10:57 Dose: 100 mg Ondansetron HCl (Zofran Inj) 4 mg IVP Q6 PRN PRN Reason: Nausea/Vomiting Oxycodone HCl (Oxycodone Immediate Release Tab) 5 mg PO Q6 PRN PRN Reason: Pain, severe (8-10) Last Admin: 02/26/17 21:33 Dose: 5 mg Tamsulosin HCl (Flomax) 0.4 mg PO DAILY [facility] Last Admin: 03/02/17 10:57 Dose: 0.4 mg Trazodone HCl (Desyrel) 50 mg PO HS PRN PRN Reason: Sleep Last Admin: 03/01/17 21:58 Dose: 50 mg Warfarin Sodium (Coumadin) 1 mg PO 1800 [facility] Stop: 03/02/17 18:01 - Labs Labs: 03/02/17 07:42 03/02/17 07:42 PT 39.4 SECONDS (9.7-12.2) H* 03/02/17 13:51 INR 3.4 03/02/17 13:51 APTT 29 SECONDS (21-34) 02/27/17 08:00 - Constitutional Appears: Non-toxic, No Acute Distress, Confused, Chronically Ill - Head Exam Head Exam: ATRAUMATIC, NORMOCEPHALIC - Eye Exam Eye Exam: EOMI, Normal appearance - ENT Exam ENT Exam: Mucous Membranes Moist - Neck Exam Neck Exam: Full ROM - Respiratory Exam Respiratory Exam: Clear to Ausculation Bilateral, NORMAL BREATHING PATTERN - Cardiovascular Exam Cardiovascular Exam: RRR, +S1, +S2 - GI/Abdominal Exam GI & Abdominal Exam: Soft. absent: Tenderness - Extremities Exam Additional comments: b/l 1-2+ nonpitting edema, cold skin, b/l wound care dressings in place - Neurological Exam Neurological Exam: Alert, Awake - Psychiatric Exam Psychiatric exam: Normal Affect, Normal Mood - Skin Skin Exam: Dry, Intact Assessment and Plan (1) NSVT (nonsustained ventricular tachycardia) Assessment & Plan: HR currently stable, with no events of VTach recorded on monitor in past 24 hrs Continue amiodarone Status: Acute (2) Atrial fibrillation Assessment & Plan: Rate controlled Continue CCB, BB Currently anticoagulated on coumadin 5mg daily, INR goal 2.5, currently supratherapeutic Reduce dose of coumadin and continue to monitor INR daily Status: Acute (3) Critical lower limb ischemia Assessment & Plan: Patient has history of PAD and initially presented with b/l lower limb ischemia L>R, now s/p thrombectomy Anticoagulated on coumadin, as above Wound care following Status: Acute (4) HTN (hypertension), malignant Assessment & Plan: BP currently stable Continue PO chlorthalidone, PO losartan, PO cardizem, PO metroprolol Continue PRN IV hydralazine, has not required it in over a week Status: Acute
[2017-03-02 20:48] LABS: RBC URINE < 1 /hpf (0-3); URINE BILIRUBIN NEGATIVE (NEGATIVE); URINE BLOOD 1+ (NEGATIVE); URINE COLOR Yellow (YELLOW); URINE GLUCOSE (UA) NORMAL (Normal); URINE KETONE NEGATIVE (NEGATIVE); URINE LEUKOCYTE ESTERASE NEG Leu/uL (Negative); URINE PROTEIN NEGATIVE (NEGATIVE); WBC URINE 2 /hpf (0-5)
--- NOTE | 2017-03-03 06:24 | CP.PCM.PN ---
<Radha Garcia - Last Filed: 03/03/17 12:03> Subjective - Date & Time of Evaluation Date of Evaluation: 03/03/17 Time of Evaluation: 06:23 - Subjective Subjective: Internal Medicine note for Dr. Skinner Patient seen and examined at bedside. Patient states he's feeling better, but has not been able to sleep. Patient has tremors and denies fevers. Nurse Diana states patient seems confused. Patient admits to pain in his feet and legs. Objective - Vital Signs/Intake and Output Vital Signs (last 24 hours): Temp Pulse Resp BP Pulse Ox 99.5 F 109 H 20 111/64 95 03/02/17 23:20 03/03/17 04:14 03/02/17 23:20 03/02/17 23:20 03/02/17 23:20 Intake and Output: 03/02/17 03/03/17 18:59 06:59 Intake Total 350 620 Balance 350 620 - Medications Medications: Current Medications Amiodarone HCl (Cordarone) 200 mg PO BID [facility] Last Admin: 03/02/17 19:00 Dose: 200 mg Chlorthalidone (Hygroton) 25 mg PO DAILY [facility] Last Admin: 03/02/17 10:57 Dose: 25 mg Diltiazem HCl (Cardizem Cd) 360 mg PO DAILY [facility] Last Admin: 03/02/17 10:57 Dose: 360 mg Famotidine (Pepcid) 20 mg PO DAILY [facility] Last Admin: 03/02/17 10:57 Dose: 20 mg Finasteride (Proscar) 5 mg PO DAILY [facility] Last Admin: 03/02/17 10:57 Dose: 5 mg Hydralazine HCl (Apresoline) 10 mg IVP Q6H PRN PRN Reason: Systolic Blood Pressure Levetiracetam (Keppra) 500 mg PO BID [facility] Last Admin: 03/02/17 19:00 Dose: 500 mg Losartan Potassium (Cozaar) 100 mg PO DAILY [facility] Last Admin: 03/02/17 10:57 Dose: 100 mg Metoprolol Tartrate (Lopressor) 100 mg PO Q12 [facility] Last Admin: 03/02/17 23:00 Dose: 100 mg Ondansetron HCl (Zofran Inj) 4 mg IVP Q6 PRN PRN Reason: Nausea/Vomiting Oxycodone HCl (Oxycodone Immediate Release Tab) 5 mg PO Q6 PRN PRN Reason: Pain, severe (8-10) Last Admin: 02/26/17 21:33 Dose: 5 mg Tamsulosin HCl (Flomax) 0.4 mg PO DAILY [facility] Last Admin: 03/02/17 10:57 Dose: 0.4 mg Trazodone HCl (Desyrel) 50 mg PO HS PRN PRN Reason: Sleep Last Admin: 03/01/17 21:58 Dose: 50 mg - Labs Labs: 03/02/17 07:42 03/02/17 07:42 PT 39.4 SECONDS (9.7-12.2) H* 03/02/17 13:51 INR 3.4 03/02/17 13:51 APTT 29 SECONDS (21-34) 02/27/17 08:00 - Constitutional Appears: Non-toxic, No Acute Distress - Head Exam Head Exam: NORMAL INSPECTION - Eye Exam Eye Exam: EOMI, Normal appearance - ENT Exam ENT Exam: Mucous Membranes Moist - Neck Exam Neck Exam: Full ROM - Respiratory Exam Respiratory Exam: NORMAL BREATHING PATTERN. absent: Accessory Muscle Use, Respiratory Distress - Cardiovascular Exam Cardiovascular Exam: Tachycardia, +S1, +S2 - GI/Abdominal Exam GI & Abdominal Exam: Soft, Normal Bowel Sounds. absent: Tenderness - Extremities Exam Extremities Exam: Tenderness. absent: Normal Inspection Additional comments: left anterior tibia and dorsal foot skin excoriation right anterior tibial skin excoriation. - Back Exam Additional comments: could not assess. patient is in a lot of pain. - Neurological Exam Neurological Exam: Awake. absent: Alert - Psychiatric Exam Psychiatric exam: Normal Affect, Normal Mood - Skin Skin Exam: Dry, Intact, Normal Color, Warm - Additional Findings Additional findings: Physical exam: bilateral leg with peripheral vascular disease delayed capillary refill pitting edema of the left foot 2+ faintly palpable pulses of left foot. Assessment and Plan - Assessment and Plan (Free Text) Assessment: 1). PAD: INR 2.9 today, repeat INR 3.4 @ 13:59, coumadin held Goal INR is 2.5 per Cardiology Consult: Dr. Brown therapeutic Lovenox Surgery Consult: Dr. Kaur would like to keep the mehran for now. Daughter Pura [phone] is aware that further surgical intervention ( Femoral Bypass) was not an option as the distal arteries in the bilateral legs could not support this procedure and there is possibility of amputation in the future. The plan for now is to control patient's pain and get the INR therapeutic to at least 2.5 and then discharge patient to home. 02/17: patient had a run of V Tach (5 beats) at 7:46 am. I spoke with Dr. Brown regarding this and he suggested replacing postassium. 20 of K dur was given and will be reassessed tomorrow. Repeat EKG was ordered. We will continue to monitor patient overnight. 02/24: elevated CPK, possible rhabdomyolysis 2/2 immobility, started gentle hydration with NS @50/hr. Bacitracin ointment and wound care consult for ruptured bullae of LLE. 02/26: Xeroform and dressings to wounds on LEs 2). Malignant HTN: Chlorthalidone, Cozaar, Hydralazine PRN, and Cardizem CD 360 mg 1x/day 02/12/17 and he has increased Metoprolol to 100 mg PO Q12H by Cardiology 02/04: CT Angiogram of the Abdomen/Pelvis no evidence of Renal Artery Stenosis. 3). Hx Atrial Fibrillation Coumadin and INR Cardizem CD 360 mg PO 1x/day and Metoprolol 100 mg PO Q12H 4). Hx Seizure Disorder Neurology Consult: Dr. Onesimo Hogan for elevated LFTs, switch to Keppra Keppra 500 mg PO 2x/day 5). Hx Multiple CVAs Crestor held d/t LFTs Lipid Profile currently WNL Lipid profile and LFTs will need to be monitored by his PMD upon discharge 6). Elevated LFTs: could be secondary to the Dilantin and the Crestor, both held. f/u LFTs will need to be monitored by his PMD upon discharge LFT elevation is currently stable 7). Elevated WBC 02/10 Blood Cx Negative 02/10 Urine Cx Negative Ordered Blood cx, straight cath UA, straight cath Urine cx, CXR c diff toxin, fecal leukocytes, stool culture. per nursing staff, patient has bullae on anterior tibial wounds. Wound care nursing on board to take care of wounds, nursing daily dressing changes IV vanco and zosyn coumadin, changed to 1mg for tonight, not held 8.) Splenic hemangioma Abdominal US f/u CT in 3 months. 9.) BPH Proscar 5 mg PO QD and flomax 0.4 mg QD 10.) Anemia of chronic disease: stable Prophylaxis: Pepcid, Dilaudid, Zofran, Percocet, Simethicone [employer]: Home Visiting Nurse through [facility] for 6 visits ( they will then determine if more is needed afterwards). Daughter Pura will be paying out of pocket ($150 to $200 a visit). When INR is therapeutic (2.5), then patient can be discharged. Patient will need to follow-up in the [facility] ([phone]) for INR check on to adjust Coumadin. Transportation voucher will need to be completed by Nurse. Disposition: * Awaiting insurance - forms were filled out and put in chart Thursday (02/20) * [employer] has already set up Home Visiting Nurse (they will then determine if more is needed afterwards) which Daughter Pura will be paying out of pocket ($150 to $200 a visit) prior to events noted above. This was clearly explained to the daughter prior to events noted above. * INR today 2.3, will maintain for tomorrow with Coumadin 5 mg. Patient will need to follow-up in the [facility] ([phone]) for INR check to adjust the Coumadin and f/u with physician--> secured appointments for the patient to accomplish this. * Patient's family expressing fear with what will they do with the patient when he gets home. * We have tried the best of our ability to help this family given lack of insurance status in terms of visiting nursing options, outpatient physical therapy, and attempting to keep his medications affordable and family made aware of out patient/out of pocket costs during hospitalization. * Family has been explained that the severity of peripheral vascular disease and understand in the future amputation is an option. They also understand will need pain control. Patient is a high cardiac risk and would need to be followed by lime mixer tender for further workup as outpatient. * Pain management with PO medications (oxycodone 5 mg Q6 PRN) * Will continue to communicate with social work/case management/palliative care. * Patient will need outpatient follow up for repeat CT of abdomen and pelvis in 3 mon 2/ abnormal abdominal US findings. <Alexandra Skinner V - Last Filed: 03/03/17 23:34> Objective - Vital Signs/Intake and Output Vital Signs (last 24 hours): Temp Pulse Resp BP Pulse Ox 100.6 F H 82 18 109/63 100 03/03/17 15:00 03/03/17 15:00 03/03/17 15:00 03/03/17 15:00 03/03/17 15:00 Intake and Output: 03/03/17 03/04/17 18:59 06:59 Intake Total 1600 Output Total 900 Balance 700 - Medications Medications: Current Medications Amiodarone HCl (Cordarone) 200 mg PO BID [facility] Last Admin: 03/03/17 19:24 Dose: 200 mg Chlorthalidone (Hygroton) 25 mg PO DAILY [facility] Last Admin: 03/03/17 09:54 Dose: 25 mg Diltiazem HCl (Cardizem Cd) 360 mg PO DAILY [facility] Last Admin: 03/03/17 09:55 Dose: 360 mg Famotidine (Pepcid) 20 mg PO DAILY [facility] Last Admin: 03/03/17 09:54 Dose: 20 mg Finasteride (Proscar) 5 mg PO DAILY [facility] Last Admin: 03/03/17 09:55 Dose: 5 mg Hydralazine HCl (Apresoline) 10 mg IVP Q6H PRN PRN Reason: Systolic Blood Pressure Piperacillin Sod/Tazobactam (Sod 3.375 gm/ Sodium Chloride) 100 mls @ 200 mls/ hr IVPB Q6H [facility] Last Admin: 03/03/17 18:18 Dose: 200 mls/hr Vancomycin/Sodium Chloride (Vancocin) 1 gm in 200 mls @ 166.7 mls/hr IVPB Q24H [facility] Stop: 03/08/17 14:01 Last Admin: 03/03/17 15:00 Dose: 166.7 mls/hr Sodium Chloride (Sodium Chloride 0.9%) 1,000 mls @ 100 mls/hr IV .Q10H [facility] Last Admin: 03/03/17 15:00 Dose: 100 mls/hr Levetiracetam (Keppra) 500 mg PO BID [facility] Last Admin: 03/03/17 19:28 Dose: 500 mg Losartan Potassium (Cozaar) 100 mg PO DAILY [facility] Last Admin: 03/03/17 11:17 Dose: 100 mg Metoprolol Tartrate (Lopressor) 100 mg PO Q12 [facility] Last Admin: 03/03/17 09:54 Dose: 100 mg Ondansetron HCl (Zofran Inj) 4 mg IVP Q6 PRN PRN Reason: Nausea/Vomiting Potassium Chloride (K-Dur 20 Meq Er Tab) 20 meq PO DAILY [facility] Last Admin: 03/03/17 09:54 Dose: 20 meq Tamsulosin HCl (Flomax) 0.4 mg PO DAILY [facility] Last Admin: 03/03/17 09:55 Dose: 0.4 mg - Labs Labs: 03/03/17 14:19 03/03/17 14:19 PT 40.6 SECONDS (9.7-12.2) H* 03/03/17 07:26 INR 3.4 03/03/17 07:26 APTT 29 SECONDS (21-34) 02/27/17 08:00 Attending/Attestation - Attestation I have personally seen and examined this patient.: Yes I have fully participated in the care of the patient.: Yes I have reviewed all pertinent clinical information, including history, physical exam and plan: Yes Notes (Text): Patient seen, examined, and case discussed with day-time resident-->multiple times during the day. * Patient seen this morning around 10:10AM with day time resident-->patient noted with tremors, nurse concern given patient appeared lethargic. Accompanied with cardiovascular surgical tech, Celio, Resident PGY-1 Eng, and myself we looked at the wounds over the bilateral anterior aspects of both skins-->patient has areas where it appears the skin is sloughing off, mild ecchymoses (patient is on therapuetic dose of Coumadin), but appears worse than previously noted. Patient's feet are cool to too touch. Patient screaming when we are checking his dressing. Patient initially on telemetry 128s' Afib RVR; had been given PO Lopressor that was due and f/u EKG 105 Afib RVR. * Patient's blood culture 03/02 positive for gram kenna and wound cultures from both legs: gram negative kenna and gram positive cocci * Patient's increased leukocytosis in light of positive blood culture--> infectious disease consult (Dr. Sarkar) recommended for empiric IV abc (Zosyn and Vancomycin) * Code sepsis called in afternoon when VBG w shock resulted-->criteria: leukocytosis, tachycardia, lactate: 2.2, source of infections multiple positive blood cultures and unhealing necrotic b/l lower extremities-->patient received 2nd Iv Abx: Vancomycin at code sepsis; repeated blood work and f/u vbg w lactate 3 hours per code sepsis; patient given 1 Liter fluid bolus and maintainence IV fluid * Discussed with patient's , Stephania Arshad with patient's nephew, 33 year old male regarding; patient's condition in regards to his legs are getting worse , given there is infection and patient appears more tired, possible amputation is needed sooner; patient's daughter not available Pura Arshad in [place] without internet per * Discussed with patient's again with Cielo, Clinical Partner, atka namibian speaker--> understands the legs will likely need amputations given risk of infection; vascular surgery will speak with Pura Arshad, daughter regarding surgery-->plan b/l amputations tomorrow; will coordinate using "whats ap" messaging service * At this time, given need for surgery, INR to be reversed-->per surgery ordered for Vitamin K and FFP-->f/u INR * CT head was ordered r/o bleed-->patient is therapuetic on Coumadin with prior hx of 10 cva-->no acute bleed on repeat CT; Asked night resident to ask radiology to compare ct head from 02/04 in regards to low density mentioned in report * Discussed with cardiology, in light of events above, patient is high risk for procedure. Plan per vascular surgery for b/l amputations tomorrow. Patient is now septic; suspecting from bacteremia and unhealing leg wounds. Assessment/Plan 1) Sepsis * Code sepsis 03/03 * criteria: leukocytosis, tachycardia, lactate: 2.2, source of infections multiple positive blood cultures and unhealing necrotic b/l lower extremities and mental status change * Given Zosyn and Vancomcyin * Given 1 Liter NS bolus * Repeat Blood work ordered * Repeat VBG w shock ordered 3 hours later * ID on board * Repeat blood cultures ordered * Chest xray from yesterday does not show infiltrate * Patient's blood culture 03/02 positive for gram kenna and wound cultures from both legs: gram negative kenna and gram positive cocci * Patient's increased leukocytosis in light of positive blood culture--> infectious disease consult (Dr. Sarkar) recommended for empiric IV abc (Zosyn and Vancomycin) * Surgery-->plan for b/l amputations tomorrow 03/04 * Will need to reverse INR prior to OR-->vitamin K and surgery has ordered for FFP * CT head ordered r/o bleed-->no acute hemorrhage 2). severe PAD: * Patient's INR is 3.4. Will need to reverse in light of emergent procedure given sepsis and worsening condition of b/l lower extremities * Grading Clerk Dr. Brown on the case help appreciated * Vascular surgery Dr Kaur on the case help appreciated-->assessed with resident at bedside this morning; skin is sloughing off the lower extremities * plan for b/l amputations tomorrow-->surgery attempt to call daughter * s/p 02/05/17 Femoral embolectomy via groin incision, right and left with intraoperative angiograms-->bilateral femoral embolectomy by groin incision and angiography-->clot removed by the right lower extremity; no clot from the left. * My colleague Dr. Milton Vines had extensive conversation with Daughter Pura [phone] on 02/12/17. Both Dr. Brown and Dr. Kaur along with him explained that at this point the best option was to control the patient's pain as further surgical intervention (Femoral Bypass) was not an option as the distal arteries in the bilateral legs could not support this procedure. The subject of the possibility of amputation in the future was also discussed. The plan for now is to control patient's pain and get the INR therapeutic to at least 2.5 and then discharge patient to home. Pura expressed understanding. * This conversation was had again on 02/19/17 with the daughter, Pura by myself who translated to patient's who is resistant to taking the patient home. Family understands that patient may need amputation in the future and he is high risk for procedure * My colleague has also spoken with on 02/28 and daughter over the weekend on 03/01 given the worsening condition of his legs * I spoke with patient's today given there is increased sloughing off over both lower extremities. Held narcotic medication given patient is lethargic 2). Malignant HTN Chlorthalidone 25mg PO daily, Cozaar 100mg PO daily Hydralazine 10mg IV Q 6hour PRN Give above 160 SBP Cardizem CD 360 mg 1x/day Metoprolol 100mg PO Q bid. Grading Clerk Dr. Brown 02/12/[address] Angiogram of the Abdomen/Pelvis 02/04/17 did NOT show any evidence of Renal Artery Stenosis 3). Hx Atrial Fibrillation: INR: 3.4--->to be reversed for b/l amputations tomorrow given sepsis picture. Discussed with cardiology, patient going for procedure in light of sepsis Cardizem CD 360 mg PO 1x/day and Metoprolol 100 mg PO Q12H start to Amiodarone 400mg PO BID X 7days, Amiodarone 200mg PO BID thereafter 4). Hx Seizure Disorder: as his LFTs are elevated. Neurology Consult was ordered with Dr. Onesimo Hogan to see if patient could be switched over to Keppra. Dr. Hogan has placed patient on Keppra 500 mg PO 2x/day 5). Hx Multiple CVAs: Crestor is being held considering the elevated LFTs and that his Lipid Profile is currently WNL. His Lipid profile and LFTs will need to be monitored by his PMD upon discharge. 6). Elevated LFTs: could be secondary to the Dilantin and the Crestor. The Crestor is being held and the Dilantin switched over to Keppra. The LFTs will need to be monitored by his PMD upon discharge. LFT elevation is currently stable. Ordered for hepatitis panel which is negative. Abdominal US: shows adenomyosis of gallbladder and other findings; will need outpatient follow-up with GI. 7). Elevated WBC: there is fever on 03/02/17 ordered for blood, wound, and chest xray; white count had increased 13; prior cultures were negative 8) Elevated CPK: Gentle IV hydration. Nephrology consult not rhabdo; likely due to severe perpherial artery disease 9) Enlarged prostate, Urinary Retention. Renal US: high postvoid residual and enlarged prostate. Nephrology started on Flomax 0.4mg PO daily and Proscar 5mg PO daily 10). Prophylaxis: Pepcid, held Dilaudid, Zofran, held Coumadin Disposition: * Patient is not medically stable. Patient meets sepsis criteria and legs are worsening in appearance-->surgery planning for b/l amputations for tomorrow. * Code sepsis called today.
[2017-03-03 07:34] LABS: BASO % 0.1 % (0.0-2.0); HEMATOCRIT 30.3 % (35.0-51.0); LYMPH # 0.6 K/uL (1.0-4.3); LYMPH % 4.8 % (20.0-40.0); MEAN CELL VOLUME 76.8 fL (80.0-94.0); MEAN CORPUSCULAR HEMOGLOBIN 26.4 pg (27.0-31.0); MEAN CORPUSCULAR HGB CONC 34.3 g/dL (33.0-37.0); MEAN PLATELET VOLUME 7.1 fL (7.2-11.7); MONO # 0.7 K/uL (0.0-0.8); MONO % 5.2 % (0.0-10.0); PLATELET COUNT 353 K/uL (130-400); RED CELL DISTRIBUTION WIDTH 15.1 % (11.5-14.5)
[2017-03-03 07:35] LABS: INR 3.4
[2017-03-03 07:49] LABS: CHLORIDE 100 mmol/L (98-107); POTASSIUM 3.2 mmol/L (3.6-5.2); SODIUM 134 mmol/L (132-148)
[2017-03-03 07:51] LABS: ALB/GLOB RATIO 0.8 (1.0-2.1); ALKALINE PHOSPHATASE 119 U/L (38-126); AST/SGOT 62 U/L (17-59); BILIRUBIN,TOTAL 0.7 mg/dL (0.2-1.3); BLOOD UREA NITROGEN 19 mg/dL (9-20); CARBON DIOXIDE 22 mmol/L (22-30); GFR AFRICAN-AMERICAN > 60; TOTAL PROTEIN 5.9 g/dL (6.3-8.3)
[2017-03-03 07:52] LABS: ALT/SGPT 85 U/L (21-72); GLUCOSE,RANDOM 116 mg/dL (75-110); MAGNESIUM 1.8 mg/dL (1.6-2.3); PHOSPHOROUS 2.5 mg/dL (2.5-4.5)
[2017-03-03] MEDS: Potassium Chloride 20 mEq ER Tab PO SCH (09:54)
[2017-03-03] MEDS: diltiaZEM 180 mg/24 Hours CD Cap PO SCH (09:55)
[2017-03-03 10:16] LABS: NEUTROPHIL 91 % (50-75); TOTAL CELLS COUNTED 100
[2017-03-03 10:17] LABS: LARGE PLATELETS PRESENT
--- NOTE | 2017-03-03 10:35 | CP.PCM.PN ---
Subjective - Date & Time of Evaluation Date of Evaluation: 03/03/17 Time of Evaluation: 10:35 - Subjective Subjective: pt not feeling well had episodes of chills, code sepsis activated plan for b/l BKA Objective - Vital Signs/Intake and Output Vital Signs (last 24 hours): Temp Pulse Resp BP Pulse Ox 99.2 F 116 H 20 112/70 98 03/03/17 09:52 03/03/17 09:52 03/03/17 09:52 03/03/17 09:52 03/03/17 09:52 Intake and Output: 03/03/17 03/03/17 06:59 18:59 Intake Total 770 Balance 770 - Medications Medications: Current Medications Amiodarone HCl (Cordarone) 200 mg PO BID [facility] Last Admin: 03/03/17 09:54 Dose: 200 mg Chlorthalidone (Hygroton) 25 mg PO DAILY [facility] Last Admin: 03/03/17 09:54 Dose: 25 mg Diltiazem HCl (Cardizem Cd) 360 mg PO DAILY [facility] Last Admin: 03/03/17 09:55 Dose: 360 mg Famotidine (Pepcid) 20 mg PO DAILY [facility] Last Admin: 03/03/17 09:54 Dose: 20 mg Finasteride (Proscar) 5 mg PO DAILY [facility] Last Admin: 03/03/17 09:55 Dose: 5 mg Hydralazine HCl (Apresoline) 10 mg IVP Q6H PRN PRN Reason: Systolic Blood Pressure Potassium Chloride (Potassium Chloride 20 Meq/100 Ml) 20 meq in 100 mls @ 50 mls/hr IVPB ONCE ONE Stop: 03/03/17 11:37 Levetiracetam (Keppra) 500 mg PO BID [facility] Last Admin: 03/03/17 09:54 Dose: 500 mg Losartan Potassium (Cozaar) 100 mg PO DAILY [facility] Last Admin: 03/02/17 10:57 Dose: 100 mg Metoprolol Tartrate (Lopressor) 100 mg PO Q12 [facility] Last Admin: 03/03/17 09:54 Dose: 100 mg Ondansetron HCl (Zofran Inj) 4 mg IVP Q6 PRN PRN Reason: Nausea/Vomiting Oxycodone HCl (Oxycodone Immediate Release Tab) 5 mg PO Q6 PRN PRN Reason: Pain, severe (8-10) Last Admin: 02/26/17 21:33 Dose: 5 mg Potassium Chloride (K-Dur 20 Meq Er Tab) 20 meq PO DAILY [facility] Last Admin: 03/03/17 09:54 Dose: 20 meq Tamsulosin HCl (Flomax) 0.4 mg PO DAILY [facility] Last Admin: 03/03/17 09:55 Dose: 0.4 mg Trazodone HCl (Desyrel) 50 mg PO HS PRN PRN Reason: Sleep Last Admin: 03/01/17 21:58 Dose: 50 mg - Labs Labs: 03/03/17 07:26 03/03/17 07:26 PT 40.6 SECONDS (9.7-12.2) H* 03/03/17 07:26 INR 3.4 03/03/17 07:26 APTT 29 SECONDS (21-34) 02/27/17 08:00 - Constitutional Appears: Toxic, Confused - Head Exam Head Exam: ATRAUMATIC, NORMAL INSPECTION, NORMOCEPHALIC - Eye Exam Eye Exam: EOMI, Normal appearance, PERRL Pupil Exam: NORMAL ACCOMODATION, PERRL - ENT Exam ENT Exam: Mucous Membranes Moist, Normal Exam - Neck Exam Neck Exam: Full ROM, Normal Inspection. absent: Lymphadenopathy - Respiratory Exam Respiratory Exam: Clear to Ausculation Bilateral, Rales, NORMAL BREATHING PATTERN - Cardiovascular Exam Cardiovascular Exam: Irregular Rhythm, +S1, +S2. absent: Murmur - GI/Abdominal Exam GI & Abdominal Exam: Soft, Normal Bowel Sounds. absent: Tenderness - Extremities Exam Extremities Exam: Full ROM, Normal Capillary Refill, Normal Inspection. absent : Joint Swelling, Pedal Edema - Back Exam Back Exam: NORMAL INSPECTION - Neurological Exam Neurological Exam: Altered, Awake, CN II-XII Intact, Oriented x3 - Psychiatric Exam Psychiatric exam: Flat Affect - Skin Skin Exam: Dry, Intact, Normal Color, Pallor, Rash, Vesicles Assessment and Plan (1) NSVT (nonsustained ventricular tachycardia) Status: Acute (2) Atrial fibrillation Status: Acute (3) HTN (hypertension), malignant Status: Acute (4) Critical lower limb ischemia Status: Acute
[2017-03-03 11:15] LABS: VENOUS BLOOD GAS BASE EXCESS 1.6 mmol/L (0.0-2.0); VENOUS BLOOD GAS PCO2 33 mmHg (40-60); VENOUS BLOOD PH 7.48 (7.32-7.43)
[2017-03-03] MEDS: Piperacillin/Tazobact 3.375 GM in Sodium Chloride 100 ML IVPB SCH ×3 (11:42→23:10)
[2017-03-03 11:50] LABS: ALB/GLOB RATIO 0.8 (1.0-2.1); ALKALINE PHOSPHATASE 120 U/L (38-126); ALT/SGPT 89 U/L (21-72); AST/SGOT 74 U/L (17-59); BILIRUBIN,TOTAL 0.6 mg/dL (0.2-1.3); BLOOD UREA NITROGEN 19 mg/dL (9-20); CALCIUM 8.2 mg/dl (8.6-10.4); CARBON DIOXIDE 21 mmol/L (22-30); CHLORIDE 100 mmol/L (98-107); GFR AFRICAN-AMERICAN > 60; GLUCOSE,RANDOM 108 mg/dL (75-110); MAGNESIUM 1.9 mg/dL (1.6-2.3); PHOSPHOROUS 2.4 mg/dL (2.5-4.5); POTASSIUM 3.3 mmol/L (3.6-5.2); SODIUM 132 mmol/L (132-148); TOTAL PROTEIN 5.8 g/dL (6.3-8.3)
--- NOTE | 2017-03-03 13:23 | RAD ---
HISTORY: r/o sepsis COMPARISON: 02/04/2017 FINDINGS: LUNGS: No active pulmonary disease. PLEURA: No significant pleural effusion identified, no pneumothorax apparent. CARDIOVASCULAR: Cardiomegaly OSSEOUS STRUCTURES: Thoracic spondylosis VISUALIZED UPPER ABDOMEN: Normal. OTHER FINDINGS: None. IMPRESSION: No active pulmonary disease. Cardiomegaly
[2017-03-03] MEDS ORDERED: Sodium Chloride 0.9% 1,000 ML IV ONE (13:51)
[2017-03-03 13:57] LABS: RBC URINE 83 /hpf (0-3); URINE BACTERIA RARE (<OCC); URINE BILIRUBIN NEGATIVE (NEGATIVE); URINE BLOOD 3+ (NEGATIVE); URINE COLOR Amber (YELLOW); URINE GLUCOSE (UA) NORMAL (Normal); URINE KETONE NEGATIVE (NEGATIVE); URINE LEUKOCYTE ESTERASE TRACE Leu/uL (Negative); URINE PROTEIN 1+ mg/dL (NEGATIVE); WBC URINE 7 /hpf (0-5)
[2017-03-03 14:12] LABS: VENOUS BLOOD GAS BASE EXCESS 1.1 mmol/L (0.0-2.0); VENOUS BLOOD GAS PCO2 30 mmHg (40-60)
[2017-03-03 14:23] LABS: BASO % 0.1 % (0.0-2.0); HEMATOCRIT 29.7 % (35.0-51.0); LYMPH # 0.8 K/uL (1.0-4.3); LYMPH % 5.1 % (20.0-40.0); MEAN CORPUSCULAR HGB CONC 33.7 g/dL (33.0-37.0); MEAN PLATELET VOLUME 7.2 fL (7.2-11.7); MONO # 0.8 K/uL (0.0-0.8); MONO % 5.2 % (0.0-10.0); PLATELET COUNT 324 K/uL (130-400); RED CELL DISTRIBUTION WIDTH 15.1 % (11.5-14.5); WHITE BLOOD COUNT 15.8 K/uL (4.8-10.8)
[2017-03-03 14:33] LABS: CHLORIDE 100 mmol/L (98-107); SODIUM 134 mmol/L (132-148)
[2017-03-03 14:34] LABS: POTASSIUM 3.9 mmol/L (3.6-5.2)
[2017-03-03 14:35] LABS: GFR AFRICAN-AMERICAN > 60
[2017-03-03 14:36] LABS: ALB/GLOB RATIO 0.7 (1.0-2.1); ALKALINE PHOSPHATASE 117 U/L (38-126); ALT/SGPT 91 U/L (21-72); AST/SGOT 88 U/L (17-59); BILIRUBIN,TOTAL 0.8 mg/dL (0.2-1.3); BLOOD UREA NITROGEN 21 mg/dL (9-20); CARBON DIOXIDE 22 mmol/L (22-30); GLUCOSE,RANDOM 119 mg/dL (75-110); PHOSPHOROUS 2.9 mg/dL (2.5-4.5); TOTAL PROTEIN 5.7 g/dL (6.3-8.3)
[2017-03-03 14:37] LABS: CALCIUM 7.6 mg/dl (8.6-10.4); MAGNESIUM 1.9 mg/dL (1.6-2.3)
[2017-03-03 14:55] LABS: NEUTROPHIL 90 % (50-75); REACTIVE LYMPHOCYTES 1 % (0-0); TOTAL CELLS COUNTED 100
[2017-03-03] MEDS: Sodium Chloride 0.9% 1,000 ML IV SCH (15:00)
[2017-03-03] MEDS: Vancomycin 1 gm/NS 200 ml 1 GM/200 ML BAG IVPB SCH (15:00)
[2017-03-03 15:15] LABS: ABG ALLEN TEST POS; ARTERIAL BLOOD HGB O2 SAT 96.3 % (95.0-98.0); CARBOXYHEMOGLOBIN 1.7 % (0.5-1.5); DRAW SITE RRA; HHB 0.5 % (0.0-5.0); METHEMOGLOBIN 1.6 % (0.0-3.0)
[2017-03-03] MEDS ORDERED: Phytonadione 1 mg/0.5 ml Inj (Neonatal) IM ONE (15:21)
[2017-03-03 15:32] LABS: ERYTHROCYTE SEDIMENTATION RATE 88 mm/hr (0-15)
[2017-03-03 17:16] LABS: VENOUS BLOOD GAS BASE EXCESS -0.3 mmol/L (0.0-2.0); VENOUS BLOOD GAS PCO2 30 mmHg (40-60); VENOUS BLOOD PH 7.48 (7.32-7.43)
--- NOTE | 2017-03-03 18:33 | PCM.SEPTIC ---
<Radha Garcia - Last Filed: 03/03/17 18:31> Sepsis Progress Note - Reassessment Type Date of Evaluation: 03/03/17 Time of Evaluation: 17:31 Reassessment Type: Non-invasive reassessment - Non Invasive Reassessment Were the most recent vital sign reviewed: Yes Vital Sign (Latest): Temp Pulse Resp BP Pulse Ox 100.6 F H 82 18 109/63 100 03/03/17 15:00 03/03/17 15:00 03/03/17 15:00 03/03/17 15:00 03/03/17 15:00 Cardiovascular: No: Bradycardia Respiratory: Yes: Normal Breath Sounds. No: Accessory Muscle Use Capillary Refill: Delayed Pulses: Normal Radial, Absent Dorsalis Pedis, Absent Posterior Tibialis Skin: Warm, Dry, Other (patient has anterior tibial wounds with skin excoriations) - Invasive Reassessment (complete 2 of 4) Was a Central Venous Pressure Measurement obtained within 6 Hours after the presentation of septic shock: No Was a passive leg raise performed or was a fluid challenge performed within 6 hrs of the initial fluid bolus: No Passive Leg Raise Result: Not Applicable Assessment & Plan - Assessment and Plan (Free Text) Assessment: urine 1+ protein RBC 83 in urine ABG: lactate 1.0 2.2 on VBG at time of code sepsis Patient mentation is better, continue to monitor for signs of altered mental status. tremors are still present temperature 100.6 orally 109/63 blood pressure [id number] 100% on ventimask FiO2 50% Radha Garcia DO PGY1 - Date & Time Date: 03/03/17 Time: 17:30 <Alexandra Skinner V - Last Filed: 03/03/17 23:37> Sepsis Progress Note - Non Invasive Reassessment Vital Sign (Latest): Temp Pulse Resp BP Pulse Ox 100.6 F H 82 18 109/63 100 03/03/17 15:00 03/03/17 15:00 03/03/17 15:00 03/03/17 15:00 03/03/17 15:00 Respiratory: Yes: Accessory Muscle Use Attending/Attestation - Attestation I have personally seen and examined this patient.: Yes I have fully participated in the care of the patient.: Yes I have reviewed all pertinent clinical information, including history, physical exam and plan: Yes Notes (Text): * Patient seen this morning around 10:10AM with day time resident-->patient noted with tremors, nurse concern given patient appeared lethargic. Accompanied with certified residential medication aide, Celio, Resident PGY-1 Eng, and myself we looked at the wounds over the bilateral anterior aspects of both skins-->patient has areas where it appears the skin is sloughing off, mild ecchymoses (patient is on therapuetic dose of Coumadin), but appears worse than previously noted. Patient's feet are cool to too touch. Patient screaming when we are checking his dressing. Patient initially on telemetry 128s' Afib RVR; had been given PO Lopressor that was due and f/u EKG 105 Afib RVR. * Patient's blood culture 03/02 positive for gram kenna and wound cultures from both legs: gram negative kenna and gram positive cocci * Patient's increased leukocytosis in light of positive blood culture--> infectious disease consult (Dr. Sarkar) recommended for empiric IV abc (Zosyn and Vancomycin) * Code sepsis called in afternoon when VBG w shock resulted-->criteria: leukocytosis, tachycardia, lactate: 2.2, source of infections multiple positive blood cultures and unhealing necrotic b/l lower extremities-->patient received 2nd Iv Abx: Vancomycin at code sepsis; repeated blood work and f/u vbg w lactate 3 hours per code sepsis; patient given 1 Liter fluid bolus and maintainence IV fluid * held off tylenol in light mild transaminits; recommended patient hypothermic blanket to help reduce fever
[2017-03-03] MEDS ORDERED: Phytonadione 1 mg/0.5 ml Inj (Neonatal) SC ONE (20:15)
--- NOTE | 2017-03-03 21:16 | CT ---
EXAM: CT Head Without Intravenous Contrast EXAM DATE/TIME: Exam ordered 03/03/2017 2:38 PM CLINICAL HISTORY: 71 years old, male; Signs and symptoms; Altered mental status/memory loss; Confusion or disorientation; Additional info: AMS - R/O hemorrhage due to anticoag TECHNIQUE: Axial computed tomography images of the head/brain without intravenous contrast. All CT scans at this facility use one or more dose reduction techniques, viz.: automated exposure control; ma/kV adjustment per patient size (including targeted exams where dose is matched to indication; i.e. head); or iterative reconstruction technique. Coronal and sagittal reformatted images were created and reviewed. COMPARISON: No relevant prior studies available. FINDINGS: Brain: 2 low density areas are noted within the right cerebellar hemisphere measuring 1.2 and 1.4 respectively in transverse diameter. There is cystic encephalomalacia in the right posterior parietal lobe, the right frontotemporal region and the left posterior parieto-occipital lobe Low density is noted within the periventricular white matter extending into the sanchez radiata and centrum semiovale bilaterally. 11 cm area of low density is noted in the left centrum semiovale. There is mild generalized cortical atrophy. No hemorrhage. No edema. Ventricles: Unremarkable. No ventriculomegaly. Bones/joints: Unremarkable. No acute fracture. Soft tissues: Unremarkable. Sinuses: Unremarkable as visualized. No acute sinusitis. Mastoid air cells: Unremarkable as visualized. No mastoid effusion. IMPRESSION: 1. No acute hemorrhage 2. 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 3. Two focal infarcts in the right cerebellar hemisphere. 4. Moderate chronic microvascular ischemic change in the deep white matter. 5. Mild generalized cortical atrophy
--- NOTE | 2017-03-03 22:18 | CP.PCM.PN ---
<CHRISSY PEARCE - Last Filed: 03/03/17 22:13> Subjective - Date & Time of Evaluation Date of Evaluation: 03/03/17 Time of Evaluation: 14:20 - Subjective Subjective: Chrissy Pearce DO PGY1 - Cardiology Progress Note for Dr. Brown Patient seen and examined at bedside. Patient has h/o of dementia and now appears somewhat confused, no longer requiring restraints though. He is awake, alert, obeying simple commands. Denies any CP, SOB, palpitations, CARREON. Continues to have b/l leg pain. Code sepsis called today reflexively, though management unchanged. Patient is for b/l AKA tomorrow Patient seen, discussed, and reviewed with attending Objective - Vital Signs/Intake and Output Vital Signs (last 24 hours): Temp Pulse Resp BP Pulse Ox 100.6 F H 82 18 109/63 100 03/03/17 15:00 03/03/17 15:00 03/03/17 15:00 03/03/17 15:00 03/03/17 15:00 Intake and Output: 03/03/17 03/04/17 18:59 06:59 Intake Total 1600 Output Total 900 Balance 700 - Medications Medications: Current Medications Amiodarone HCl (Cordarone) 200 mg PO BID [facility] Last Admin: 03/03/17 19:24 Dose: 200 mg Chlorthalidone (Hygroton) 25 mg PO DAILY [facility] Last Admin: 03/03/17 09:54 Dose: 25 mg Diltiazem HCl (Cardizem Cd) 360 mg PO DAILY [facility] Last Admin: 03/03/17 09:55 Dose: 360 mg Famotidine (Pepcid) 20 mg PO DAILY [facility] Last Admin: 03/03/17 09:54 Dose: 20 mg Finasteride (Proscar) 5 mg PO DAILY [facility] Last Admin: 03/03/17 09:55 Dose: 5 mg Hydralazine HCl (Apresoline) 10 mg IVP Q6H PRN PRN Reason: Systolic Blood Pressure Piperacillin Sod/Tazobactam (Sod 3.375 gm/ Sodium Chloride) 100 mls @ 200 mls/ hr IVPB Q6H [facility] Last Admin: 03/03/17 18:18 Dose: 200 mls/hr Vancomycin/Sodium Chloride (Vancocin) 1 gm in 200 mls @ 166.7 mls/hr IVPB Q24H [facility] Stop: 03/08/17 14:01 Last Admin: 03/03/17 15:00 Dose: 166.7 mls/hr Sodium Chloride (Sodium Chloride 0.9%) 1,000 mls @ 100 mls/hr IV .Q10H [facility] Last Admin: 03/03/17 15:00 Dose: 100 mls/hr Levetiracetam (Keppra) 500 mg PO BID [facility] Last Admin: 03/03/17 19:28 Dose: 500 mg Losartan Potassium (Cozaar) 100 mg PO DAILY [facility] Last Admin: 03/03/17 11:17 Dose: 100 mg Metoprolol Tartrate (Lopressor) 100 mg PO Q12 [facility] Last Admin: 03/03/17 09:54 Dose: 100 mg Ondansetron HCl (Zofran Inj) 4 mg IVP Q6 PRN PRN Reason: Nausea/Vomiting Potassium Chloride (K-Dur 20 Meq Er Tab) 20 meq PO DAILY [facility] Last Admin: 03/03/17 09:54 Dose: 20 meq Tamsulosin HCl (Flomax) 0.4 mg PO DAILY [facility] Last Admin: 03/03/17 09:55 Dose: 0.4 mg Trazodone HCl (Desyrel) 50 mg PO HS PRN PRN Reason: Sleep Last Admin: 03/01/17 21:58 Dose: 50 mg - Labs Labs: 03/03/17 14:19 03/03/17 14:19 PT 40.6 SECONDS (9.7-12.2) H* 03/03/17 07:26 INR 3.4 03/03/17 07:26 APTT 29 SECONDS (21-34) 02/27/17 08:00 - Constitutional Appears: Non-toxic, No Acute Distress, Confused, Chronically Ill - Head Exam Head Exam: ATRAUMATIC, NORMOCEPHALIC - Eye Exam Eye Exam: EOMI, Normal appearance - ENT Exam ENT Exam: Mucous Membranes Moist - Neck Exam Neck Exam: Full ROM - Respiratory Exam Respiratory Exam: Clear to Ausculation Bilateral, Respiratory Distress - Cardiovascular Exam Cardiovascular Exam: RRR, +S1, +S2 - GI/Abdominal Exam GI & Abdominal Exam: Soft. absent: Tenderness - Extremities Exam Additional comments: b/l 1-2+ nonpitting edema, cold skin, b/l wound care dressings in place - Neurological Exam Neurological Exam: Alert, Awake. absent: Oriented x3 - Skin Skin Exam: Dry, Intact Additional comments: ...except as noted in extremities exam Assessment and Plan (1) NSVT (nonsustained ventricular tachycardia) Assessment & Plan: HR currently stable, with no events of VTach recorded on monitor in past 24 hrs Continue amiodarone Status: Acute (2) Atrial fibrillation Assessment & Plan: Patient reportedly had an episode of afib RVR, and received Lopressor 5mg IV which abated it, but on review of facilities assistant recordings, event appears more likely to have been artifact, misinterpreted as RVR Rate controlled Continue CCB, BB Currently anticoagulated on coumadin 5mg daily, INR goal 2.5, currently supratherapeutic; Received 1 dose of vit K per primary team, in preparation for surgery tomorrow. Reduce dose of coumadin and continue to monitor INR daily Status: Acute (3) Critical lower limb ischemia Assessment & Plan: Patient has history of PAD and initially presented with b/l lower limb ischemia L>R, now s/p thrombectomy Anticoagulated on coumadin, as above Wound care following B/L LE remain cold, poorly perfused Patient is for b/l AKA tomorrow Status: Acute (4) HTN (hypertension), malignant Assessment & Plan: BP currently stable Continue PO chlorthalidone, PO losartan, PO cardizem, PO metroprolol Continue PRN IV hydralazine, has not required it in over a week Status: Acute <Luis Brown - Last Filed: 03/05/17 00:25> Objective - Vital Signs/Intake and Output Vital Signs (last 24 hours): Temp Pulse Resp BP Pulse Ox 98.2 F 81 14 122/64 100 03/04/17 23:30 03/04/17 23:30 03/04/17 23:30 03/04/17 23:30 03/04/17 23:30 Intake and Output: 03/04/17 03/05/17 18:59 06:59 Intake Total 1400 325 Balance 1400 325 - Medications Medications: Current Medications Amiodarone HCl (Cordarone) 200 mg PO BID [facility] Last Admin: 03/04/17 11:55 Dose: 200 mg Chlorthalidone (Hygroton) 25 mg PO DAILY [facility] Last Admin: 09/27/17 11:55 Dose: 25 mg Diltiazem HCl (Cardizem Cd) 360 mg PO DAILY [facility] Last Admin: 03/04/17 11:55 Dose: 360 mg Famotidine (Pepcid) 20 mg PO DAILY [facility] Last Admin: 03/04/17 11:54 Dose: 20 mg Finasteride (Proscar) 5 mg PO DAILY [facility] Last Admin: 03/04/17 11:55 Dose: 5 mg Hydralazine HCl (Apresoline) 10 mg IVP Q6H PRN PRN Reason: Systolic Blood Pressure Hydromorphone HCl (Dilaudid) 1 mg IVP Q4H PRN PRN Reason: Pain, severe (8-10) Piperacillin Sod/Tazobactam (Sod 3.375 gm/ Sodium Chloride) 100 mls @ 200 mls/ hr IVPB Q6H [facility] Last Admin: 03/04/17 22:45 Dose: 100 mls Vancomycin/Sodium Chloride (Vancocin) 1 gm in 200 mls @ 166.7 mls/hr IVPB Q24H [facility] Stop: 03/08/17 14:01 Last Admin: 03/04/17 14:32 Dose: 166.7 mls/hr Sodium Chloride (Sodium Chloride 0.9%) 1,000 mls @ 100 mls/hr IV .Q10H [facility] Last Admin: 03/04/17 11:59 Dose: Not Given Ketorolac Tromethamine (Toradol) 30 mg IVP Q6 PRN PRN Reason: Pain, moderate (4-7) Levetiracetam (Keppra) 500 mg PO BID [facility] Last Admin: 03/04/17 11:55 Dose: 500 mg Losartan Potassium (Cozaar) 100 mg PO DAILY [facility] Last Admin: 03/04/17 11:55 Dose: 100 mg Metoprolol Tartrate (Lopressor) 100 mg PO Q12 [facility] Last Admin: 03/04/17 11:54 Dose: 100 mg Morphine Sulfate (Morphine) 1 mg IVP Q10M PRN PRN Reason: Pain, severe (8-10) Stop: 03/05/17 00:41 Ondansetron HCl (Zofran Inj) 4 mg IVP Q6 PRN PRN Reason: Nausea/Vomiting Ondansetron HCl (Zofran Inj) 4 mg IVP ONCE PRN PRN Reason: Nausea/Vomiting Stop: 03/05/17 00:41 Oxycodone/Acetaminophen (Percocet 5/325 Mg Tab) 2 tab PO Q4H PRN PRN Reason: Pain, Mild (1-3) Stop: 03/07/17 22:36 Potassium Chloride (K-Dur 20 Meq Er Tab) 20 meq PO DAILY [facility] Last Admin: 03/04/17 11:59 Dose: Not Given Tamsulosin HCl (Flomax) 0.4 mg PO DAILY [facility] Last Admin: 03/04/17 11:55 Dose: 0.4 mg - Labs Labs: 03/04/17 11:14 03/04/17 11:14 PT 22.5 SECONDS (9.7-12.2) H D 03/04/17 16:21 INR 2.0 D 03/04/17 16:21 APTT 29 SECONDS (21-34) 02/27/17 08:00 Assessment and Plan (1) NSVT (nonsustained ventricular tachycardia) Status: Acute (2) Atrial fibrillation Status: Acute (3) HTN (hypertension), malignant Status: Acute (4) Critical lower limb ischemia Status: Acute Attending/Attestation - Attestation I have personally seen and examined this patient.: Yes I have fully participated in the care of the patient.: Yes I have reviewed all pertinent clinical information, including history, physical exam and plan: Yes
[2017-03-04] MEDS: Sodium Chloride 0.9% 1,000 ML IV SCH ×2 (00:42→11:59)
[2017-03-04] MEDS: Piperacillin/Tazobact 3.375 GM in Sodium Chloride 100 ML IVPB SCH ×3 (04:01→22:45)
--- NOTE | 2017-03-04 07:15 | CP.PCM.PN ---
<Radha Garcia - Last Filed: 03/04/17 14:21> Subjective - Date & Time of Evaluation Date of Evaluation: 03/04/17 Time of Evaluation: 07:14 - Subjective Subjective: Internal Medicine Progress note for Dr. Skinner Patient seen and examined at bedside. Tmax 101.1 overnight. Patient's current temperature is 99.7. Patient is to go to the OR today for bilateral AKA. Patient was given Vitamin K and surgery team has ordered blood products for the procedure. INR 2.9 today. Patient will have FFPs administered today. OPERATOR MAINTAINER was called today for no response to painful stimuli. Patient is still on Ventimask FiO2 50%. Patient is doing better Objective - Vital Signs/Intake and Output Vital Signs (last 24 hours): Temp Pulse Resp BP Pulse Ox 99.7 F H 72 20 142/65 100 03/04/17 04:12 03/04/17 04:12 03/04/17 04:12 03/04/17 04:12 03/04/17 04:12 Intake and Output: 03/04/17 03/04/17 06:59 18:59 Intake Total 1050 Balance 1050 - Medications Medications: Current Medications Amiodarone HCl (Cordarone) 200 mg PO BID [facility] Last Admin: 03/03/17 19:24 Dose: 200 mg Chlorthalidone (Hygroton) 25 mg PO DAILY [facility] Last Admin: 03/03/17 09:54 Dose: 25 mg Diltiazem HCl (Cardizem Cd) 360 mg PO DAILY [facility] Last Admin: 03/03/17 09:55 Dose: 360 mg Famotidine (Pepcid) 20 mg PO DAILY [facility] Last Admin: 03/03/17 09:54 Dose: 20 mg Finasteride (Proscar) 5 mg PO DAILY [facility] Last Admin: 03/03/17 09:55 Dose: 5 mg Hydralazine HCl (Apresoline) 10 mg IVP Q6H PRN PRN Reason: Systolic Blood Pressure Piperacillin Sod/Tazobactam (Sod 3.375 gm/ Sodium Chloride) 100 mls @ 200 mls/ hr IVPB Q6H [facility] Last Admin: 03/04/17 04:01 Dose: 200 mls/hr Vancomycin/Sodium Chloride (Vancocin) 1 gm in 200 mls @ 166.7 mls/hr IVPB Q24H [facility] Stop: 03/08/17 14:01 Last Admin: 03/03/17 15:00 Dose: 166.7 mls/hr Sodium Chloride (Sodium Chloride 0.9%) 1,000 mls @ 100 mls/hr IV .Q10H [facility] Last Admin: 03/04/17 00:42 Dose: Not Given Levetiracetam (Keppra) 500 mg PO BID [facility] Last Admin: 03/03/17 19:28 Dose: 500 mg Losartan Potassium (Cozaar) 100 mg PO DAILY [facility] Last Admin: 03/03/17 11:17 Dose: 100 mg Metoprolol Tartrate (Lopressor) 100 mg PO Q12 [facility] Last Admin: 03/03/17 23:08 Dose: 100 mg Ondansetron HCl (Zofran Inj) 4 mg IVP Q6 PRN PRN Reason: Nausea/Vomiting Potassium Chloride (K-Dur 20 Meq Er Tab) 20 meq PO DAILY [facility] Last Admin: 03/03/17 09:54 Dose: 20 meq Tamsulosin HCl (Flomax) 0.4 mg PO DAILY [facility] Last Admin: 03/03/17 09:55 Dose: 0.4 mg - Labs Labs: 03/03/17 14:19 03/03/17 14:19 PT 40.6 SECONDS (9.7-12.2) H* 03/03/17 07:26 INR 3.4 03/03/17 07:26 APTT 29 SECONDS (21-34) 02/27/17 08:00 - Constitutional Appears: Non-toxic, No Acute Distress - Head Exam Head Exam: NORMAL INSPECTION - Eye Exam Eye Exam: EOMI, Normal appearance - Neck Exam Neck Exam: Full ROM - Respiratory Exam Respiratory Exam: Clear to Ausculation Bilateral, NORMAL BREATHING PATTERN. absent: Accessory Muscle Use, Respiratory Distress - Cardiovascular Exam Cardiovascular Exam: REGULAR RHYTHM, +S1, +S2. absent: Bradycardia, Tachycardia - GI/Abdominal Exam GI & Abdominal Exam: Soft. absent: Tenderness - Extremities Exam Extremities Exam: Tenderness Additional comments: bilateral leg wounds, wrapped in dressing. bilateral foot edema cool to touch - Neurological Exam Neurological Exam: Alert, Awake, Oriented x3 - Psychiatric Exam Psychiatric exam: Normal Affect, Normal Mood - Skin Skin Exam: Dry, Normal Color Assessment and Plan - Assessment and Plan (Free Text) Assessment: 1) Sepsis * Code sepsis 03/03 * criteria: leukocytosis, tachycardia, lactate: 2.2, source of infections multiple positive blood cultures and unhealing necrotic b/l lower extremities and mental status change * Given Zosyn and Vancomcyin * Given 1 Liter NS bolus * Repeat Blood work ordered * Repeat VBG w shock ordered 3 hours later * ID on board * Repeat blood cultures ordered * Chest xray from yesterday does not show infiltrate * Patient's blood culture 03/02 positive for gram kenna and wound cultures from both legs: gram negative kenna and gram positive cocci * Patient's increased leukocytosis in light of positive blood culture * ID Consult Dr. Sarkar recommended IV Vancomycin and Zosyn * Surgery-->plan for b/l amputations tomorrow 03/04 * Will need to reverse INR prior to OR-->vitamin K and surgery has ordered for FFP, INR scheduled for 16:00 * CT head ordered r/o bleed-->no acute hemorrhage * Vitals Q4H 2). severe PAD: * Patient's INR is 2.9. 5 units FFP ordered for transfusion * [employer] Consult Dr. Brown * Vascular surgery Dr Kaur * skin excoriations of Bilateral lower extremities * plan for b/l amputations tomorrow, phone consent by Dr. Kaur and daughter * s/p 02/05/17 Femoral embolectomy via groin incision, right and left with intraoperative angiograms-->bilateral femoral embolectomy by groin incision and angiography-->clot removed by the right lower extremity; no clot from the left. * Dr. Milton Vines had extensive conversation with Daughter Pura on 02/12/17. Best option was to control the patient's pain as further surgical intervention (Femoral Bypass) was not an option as the distal arteries in the bilateral legs could not support this procedure. Consider amputation in the future. * 02/19 conversation with daughter, Pura who translated to patient's who is resistant to taking the patient home. Family understands that patient may need amputation in the future and he is high risk for procedure * My colleague has also spoken with on 02/28 and daughter over the weekend on 03/01 given the worsening condition of his legs * 03/04 I spoke with patient's today given there is increased sloughing off over both lower extremities. Held narcotic medication given patient is lethargic 2). Malignant HTN Chlorthalidone 25mg PO daily, Cozaar 100mg PO daily Hydralazine 10mg IV Q 6hour PRN Give above 160 SBP Cardizem CD 360 mg 1x/day Metoprolol 100mg PO Q bid. [employer] Dr. Brown 02/12/[address] Angiogram of the Abdomen/Pelvis 02/04/17 did NOT show any evidence of Renal Artery Stenosis 3). Hx Atrial Fibrillation: INR 2.9, to be reversed for bilateral AKA given sepsis picture. Discussed with cardiology, patient going for procedure in light of sepsis Cardizem CD 360 mg PO 1x/day and Metoprolol 100 mg PO Q12H start to Amiodarone 400mg PO BID X 7days, Amiodarone 200mg PO BID thereafter 4). Hx Seizure Disorder: as his LFTs are elevated. Neurology Consult was ordered with Dr. Onesimo Hogan to see if patient could be switched over to Keppra. Dr. Hogan has placed patient on Keppra 500 mg PO 2x/day 5). Hx Multiple CVAs: Crestor is being held considering the elevated LFTs and that his Lipid Profile is currently WNL. His Lipid profile and LFTs will need to be monitored by his PMD upon discharge. 6). Elevated LFTs: could be secondary to the Dilantin and the Crestor. The Crestor is being held and the Dilantin switched over to Keppra. The LFTs will need to be monitored by his PMD upon discharge. LFT elevation is currently stable. Ordered for hepatitis panel which is negative. Abdominal US: shows adenomyosis of gallbladder and other findings; will need outpatient follow-up with GI. 7). Elevated WBC: there is fever on 03/02/17 ordered for blood, wound, and chest xray; white count had increased 13; prior cultures were negative 8) Elevated CPK: Gentle IV hydration. Nephrology consult not rhabdo; likely due to severe perpherial artery disease 9) Enlarged prostate, Urinary Retention. Renal US: high postvoid residual and enlarged prostate. Nephrology started on Flomax 0.4mg PO daily and Proscar 5mg PO daily 10). Prophylaxis: Pepcid, held Dilaudid, Zofran, held Coumadin Disposition: * Bilateral AKA scheduled for today * OPERATOR MAINTAINER was called today for no response to painful stimuli * patient is doing better, f/u INR after FFP transfusion. OR in the afternoon per surgery team <Alexandra Skinner V - Last Filed: 03/16/17 19:38> Objective - Vital Signs/Intake and Output Vital Signs (last 24 hours): Temp Pulse Resp BP Pulse Ox 98.2 F 81 14 97/53 L 97 03/04/17 23:30 03/05/17 02:00 03/05/17 02:00 03/05/17 01:32 03/05/17 02:00 Intake and Output: 03/05/17 03/05/17 06:59 18:59 Intake Total 625 Balance 625 - Medications Medications: Current Medications Amiodarone HCl (Cordarone) 200 mg PO BID [facility] Last Admin: 03/04/17 11:55 Dose: 200 mg Chlorthalidone (Hygroton) 25 mg PO DAILY [facility] Last Admin: 03/04/17 11:55 Dose: 25 mg Diltiazem HCl (Cardizem Cd) 360 mg PO DAILY [facility] Last Admin: 03/04/17 11:55 Dose: 360 mg Famotidine (Pepcid) 20 mg PO DAILY [facility] Last Admin: 03/04/17 11:54 Dose: 20 mg Finasteride (Proscar) 5 mg PO DAILY [facility] Last Admin: 03/04/17 11:55 Dose: 5 mg Hydralazine HCl (Apresoline) 10 mg IVP Q6H PRN PRN Reason: Systolic Blood Pressure Hydromorphone HCl (Dilaudid) 1 mg IVP Q4H PRN PRN Reason: Pain, severe (8-10) Last Admin: 03/05/17 06:10 Dose: 1 mg Piperacillin Sod/Tazobactam (Sod 3.375 gm/ Sodium Chloride) 100 mls @ 200 mls/ hr IVPB Q6H [facility] Last Admin: 03/05/17 04:50 Dose: 200 mls/hr Vancomycin/Sodium Chloride (Vancocin) 1 gm in 200 mls @ 166.7 mls/hr IVPB Q24H [facility] Stop: 03/08/17 14:01 Last Admin: 03/04/17 14:32 Dose: 166.7 mls/hr Sodium Chloride (Sodium Chloride 0.9%) 1,000 mls @ 100 mls/hr IV .Q10H [facility] Last Admin: 03/05/17 06:51 Dose: Not Given Ketorolac Tromethamine (Toradol) 30 mg IVP Q6 PRN PRN Reason: Pain, moderate (4-7) Levetiracetam (Keppra) 500 mg PO BID [facility] Last Admin: 03/04/17 11:55 Dose: 500 mg Losartan Potassium (Cozaar) 100 mg PO DAILY [facility] Last Admin: 03/04/17 11:55 Dose: 100 mg Metoprolol Tartrate (Lopressor) 100 mg PO Q12 [facility] Last Admin: 03/04/17 11:54 Dose: 100 mg Ondansetron HCl (Zofran Inj) 4 mg IVP Q6 PRN PRN Reason: Nausea/Vomiting Oxycodone/Acetaminophen (Percocet 5/325 Mg Tab) 2 tab PO Q4H PRN PRN Reason: Pain, Mild (1-3) Stop: 03/07/17 22:36 Potassium Chloride (K-Dur 20 Meq Er Tab) 20 meq PO DAILY [facility] Last Admin: 03/04/17 11:59 Dose: Not Given Tamsulosin HCl (Flomax) 0.4 mg PO DAILY [facility] Last Admin: 03/04/17 11:55 Dose: 0.4 mg - Labs Labs: 03/05/17 06:32 03/05/17 06:32 PT 19.6 SECONDS (9.7-12.2) H 03/05/17 06:32 INR 1.7 03/05/17 06:32 APTT 29 SECONDS (21-34) 02/27/17 08:00 Attending/Attestation - Attestation I have personally seen and examined this patient.: Yes I have fully participated in the care of the patient.: Yes I have reviewed all pertinent clinical information, including history, physical exam and plan: Yes Notes (Text): This is late computer entry for 03/04/17. Patient seen, examined, and case discussed with day-time resident-->multiple times during the day. * Patient seen this morning at OPERATOR MAINTAINER for "unresponsiveness" which when he was awoken by touching his legs. He was responsive, awake, alert, vitals were stable. Patient's INR 2.9; received total 3 FFPs and Vitamin K prior to going to OR. Patient's INR: 2.0 after receiving 2 FFP and Vitamin K. Patient seen post -OR in ICU Bed 8 and spoke with briefly post OR. * Patient's white count uptrending likely secondary to necrotic b/l lower extremities. Patient went to the OR b/l AKA in the evening. Patient tolerated procedure per discussion with surgery resident, Naty, PGY-1. Spoke with throughout during the day. Patient initially evaluated by ICU in the morning, but not ICU candidate per discussion with Dr. Michael. Patient status post OR was transferred to the ICU. * Will need to follow-up with infectious disease when wound and blood cultures finalized to see if antibiotic therapy needs to be amended. * CT Head (03/03): no acute hemorrhage, focal infarcts, encephalomalcia (but not compared to 02/04/17) per review of report-->will follow-up with radiology regarding comparison. Assessment/Plan 1) Sepsis * Code sepsis 03/03 * criteria: leukocytosis, tachycardia, lactate: 2.2, source of infections multiple positive blood cultures and unhealing necrotic b/l lower extremities and mental status change * Given Zosyn and Vancomcyin at code sepsis * Given 1 Liter NS bolus at code sepsis * ID on board * Repeat blood cultures (03/03) * Chest xray from yesterday does not show infiltrate * Patient's blood culture 03/02 positive for gram kenna and wound cultures from both legs: gram negative kenna and gram positive cocci * Patient's increased leukocytosis in light of positive blood culture--> infectious disease consult (Dr. Sarkar) recommended for empiric IV abc (Zosyn and Vancomycin) * Surgery-->plan for b/l amputation today 03/04 * Given FFP and Vitamin K to reverse INR prior to OR * CT head (03/03) no acute hemorrhage, focal infarcts, encephalomalcia (but not compared to 02/04/17) per review of report-->will follow-up with radiology regarding comparison. * 2). severe PAD: * [employer] Dr. Brown on the case help appreciated * Vascular surgery Dr Kaur on the case help appreciated-->assessed with resident at bedside this morning; skin is sloughing off the lower extremities * plan for b/l amputations tomorrow-->surgery attempt to call daughter * s/p 02/05/17 Femoral embolectomy via groin incision, right and left with intraoperative angiograms-->bilateral femoral embolectomy by groin incision and angiography-->clot removed by the right lower extremity; no clot from the left. * My colleague Dr. Milton Vines had extensive conversation with Daughter Pura on 02/12/17. Both Dr. Brown and Dr. Kaur along with him explained that at this point the best option was to control the patient's pain as further surgical intervention (Femoral Bypass) was not an option as the distal arteries in the bilateral legs could not support this procedure. The subject of the possibility of amputation in the future was also discussed. The plan for now is to control patient's pain and get the INR therapeutic to at least 2.5 and then discharge patient to home. Pura expressed understanding. * This conversation was had again on 02/19/17 with the daughter, Pura by myself who translated to patient's who is resistant to taking the patient home. Family understands that patient may need amputation in the future and he is high risk for procedure * My colleague has also spoken with on 02/28 and daughter over the weekend on 03/01 given the worsening condition of his legs * I spoke with patient's 03/03 given there is increased sloughing off over both lower extremities. Held narcotic medication given patient is lethargic * Given FFP and Vitamin K to reverse INR prior to OR (INR: 2.9-->2.0) 3). Malignant HTN Chlorthalidone 25mg PO daily, Cozaar 100mg PO daily Hydralazine 10mg IV Q 6hour PRN Give above 160 SBP Cardizem CD 360 mg 1x/day Metoprolol 100mg PO Q bid. [employer] Dr. Brown 02/12/[address] Angiogram of the Abdomen/Pelvis 02/04/17 did NOT show any evidence of Renal Artery Stenosis 4). Hx Atrial Fibrillation: INR: 3.9-->2.0 reversed for b/l amputations prior to OR Discussed with cardiology, patient going for procedure in light of sepsis Cardizem CD 360 mg PO 1x/day and Metoprolol 100 mg PO Q12H start to Amiodarone 400mg PO BID X 7days, Amiodarone 200mg PO BID thereafter 5). Hx Seizure Disorder: as his LFTs are elevated. Neurology Consult was ordered with Dr. Onesimo Hogan to see if patient could be switched over to Keppra. Dr. Hogan has placed patient on Keppra 500 mg PO 2x/day 6). Hx Multiple CVAs: Crestor is being held considering the elevated LFTs and that his Lipid Profile is currently WNL. His Lipid profile and LFTs will need to be monitored by his PMD upon discharge. 7). Elevated LFTs: could be secondary to the Dilantin and the Crestor. The Crestor is being held and the Dilantin switched over to Keppra. The LFTs will need to be monitored by his PMD upon discharge. LFT elevation is currently stable. Ordered for hepatitis panel which is negative. Abdominal US: shows adenomyosis of gallbladder and other findings; will need outpatient follow-up with GI. 8). Elevated WBC: there is fever on 03/02/17 ordered for blood, wound, and chest xray; white count had increased 13; prior cultures were negative; increasing; went to OR today for necrotic leg wounds 9) Elevated CPK: Gentle IV hydration. Nephrology consult not rhabdo; likely due to severe perpherial artery disease 10) Enlarged prostate, Urinary Retention. Renal US: high postvoid residual and enlarged prostate. Nephrology started on Flomax 0.4mg PO daily and Proscar 5mg PO daily 11). Prophylaxis: Pepcid, held Dilaudid, Zofran, held Coumadin Disposition: * Patient meets sepsis criteria and legs are worsening in appearance-->surgery planning for b/l amputations for today. INR reversed prior to OR.
[2017-03-04 07:42] LABS: INR 2.9
--- NOTE | 2017-03-04 07:51 | PCM.RRT ---
<Rafael Jack - Last Filed: 03/04/17 07:49> BOAT REPAIRER Nurses Assessment - Situation Date: 03/04/17 Time BOAT REPAIRER was called: 07:37 BOAT REPAIRER Responder Arrival Time:: 07:37 BOAT REPAIRER Location:: Med/Surg BOAT REPAIRER Reason for Call: Change in Mental Status, Looks Sicker BOAT REPAIRER Called By: Physician (rafael jack, DO PGY1) - IV IV Inserted during BOAT REPAIRER?: No New IV Insertion Tolerance: Excellent - Respiratory Received Nebulizer Treatments: No Was the Patient Ventilated with Bag/Mask 100% O2?: No (patient is already on Venti mask 50%) Secretions Suctioned?: No Was the Patient Intubated?: No Was the Patient Placed on a Ventilator?: No - Ventilator Settings SAO2 %: 98 - Diagnostic Test Ordered EKG: No Chest X-Ray: Yes (wheezing) CT Scan: No CPR started during BOAT REPAIRER?: No - Vital Signs Vital Signs: 122/64 80 bpm 99.3F - Recommendations 5) BOAT REPAIRER Level of Care Recommendations: Remain in current setting Notifications: Attending Physician I.Reason for BOAT REPAIRER - A) Acute Change in Patient: (Select all that apply): Acute change in mental status Subjective: Patient found unresponsive to painful stimuli. BOAT REPAIRER was called at 0737, patient responded to movement of right lower extremity. Patient was able to orient back to baseline. - Neurological Status (Select all that apply): Confused, Lethargic - Respiratory Oxygen Delivery Method: Venturi Mask @% - Respiratory Exam Respiratory Exam: Accessory Muscle Use, Wheezes. absent: NORMAL BREATHING PATTERN - Cardiovascular Exam Cardiovascular Exam: +S1, +S2. absent: Bradycardia, Tachycardia - Neurological Exam Neurological Exam: absent: Oriented x3 - Extremities Exam Extremities Exam: Tenderness. absent: Pedal Edema Additional comments: Lower extremities have wounds Plan - Assessment of Findings&Treatment Plan f/u CXR monitor vitals <Alexandra Skinner V - Last Filed: 03/05/17 07:22> BOAT REPAIRER Nurses Assessment - Vital Signs Vital Signs: Rapid Response Vital Sign Blood Pressure 122/64 Pulse Rate 80 Respiratory Rate 16 Temperature 99.3 F Oxygen Saturation 95 Attending/Attestation - Attestation I have personally seen and examined this patient.: Yes I have fully participated in the care of the patient.: Yes I have reviewed all pertinent clinical information, including history, physical exam and plan: Yes Notes (Text): This is late computer entry for 03/04/17. Brief Hospitalist Note: Responded to BOAT REPAIRER, for "unresponsiveness". Patient awoken when legs were touched. Vitals were stable.
[2017-03-04 07:56] LABS: PHOSPHOROUS 4.4 mg/dL (2.5-4.5)
[2017-03-04] MEDS ORDERED: Phytonadione 10 mg/ml Inj (Adult) SC ONE (09:00)
--- NOTE | 2017-03-04 09:43 | RAD ---
PROCEDURE: Radiographs of the bilateral Tibiae and Fibula. HISTORY: leg wound, concern for osteomyelitis COMPARISON: None available. TECHNIQUE: Frontal and lateral views obtained. FINDINGS: BONES: RIGHT TIBIA: No fracture or destructive lesion. LEFT TIBIA: No fracture or destructive lesion. JOINT SPACES: RIGHT TIBIA: Normal. LEFT TIBIA: Normal. SOFT TISSUES: RIGHT TIBIA: Soft tissue calcifications seen. LEFT TIBIA: Normal. OTHER FINDINGS: None. IMPRESSION: No evidence of acute pathology at the bilateral tibia and fibula. Soft tissue calcifications suggestive of calcified vessels and diffuse atherosclerotic disease.
[2017-03-04 11:32] LABS: BASO % 0.1 % (0.0-2.0); HEMATOCRIT 30.9 % (35.0-51.0); LYMPH % 4.8 % (20.0-40.0); MEAN CELL VOLUME 78.6 fL (80.0-94.0); MEAN CORPUSCULAR HEMOGLOBIN 26.3 pg (27.0-31.0); MEAN CORPUSCULAR HGB CONC 33.4 g/dL (33.0-37.0); MONO % 4.9 % (0.0-10.0); PLATELET COUNT 281 K/uL (130-400); RED CELL DISTRIBUTION WIDTH 15.3 % (11.5-14.5); WHITE BLOOD COUNT 20.9 K/uL (4.8-10.8)
[2017-03-04 11:36] LABS: CHLORIDE 103 mmol/L (98-107); POTASSIUM 3.6 mmol/L (3.6-5.2); SODIUM 139 mmol/L (132-148)
[2017-03-04 11:38] LABS: GFR AFRICAN-AMERICAN > 60
[2017-03-04 11:39] LABS: ALB/GLOB RATIO 0.8 (1.0-2.1); ALKALINE PHOSPHATASE 132 U/L (38-126); ALT/SGPT 100 U/L (21-72); AST/SGOT 101 U/L (17-59); BILIRUBIN,TOTAL 0.8 mg/dL (0.2-1.3); BLOOD UREA NITROGEN 24 mg/dL (9-20); CALCIUM 7.7 mg/dl (8.6-10.4); CARBON DIOXIDE 20 mmol/L (22-30); GLUCOSE,RANDOM 91 mg/dL (75-110)
[2017-03-04 11:40] LABS: MAGNESIUM 2.2 mg/dL (1.6-2.3)
[2017-03-04] MEDS: diltiaZEM 180 mg/24 Hours CD Cap PO SCH (11:55)
[2017-03-04] MEDS: Potassium Chloride 20 mEq ER Tab PO SCH (11:59)
--- NOTE | 2017-03-04 12:11 | RAD ---
HISTORY: JACK OF ALL TRADES, wheezing COMPARISON: Comparison is made to 03/03/2017 FINDINGS: LUNGS: No active pulmonary disease. PLEURA: No significant pleural effusion identified, no pneumothorax apparent. CARDIOVASCULAR: Normal. OSSEOUS STRUCTURES: No significant abnormalities. VISUALIZED UPPER ABDOMEN: Normal. OTHER FINDINGS: None. IMPRESSION: No active disease.
[2017-03-04 12:14] LABS: NEUTROPHIL 92 % (50-75); TOTAL CELLS COUNTED 100
[2017-03-04] MEDS: Vancomycin 1 gm/NS 200 ml 1 GM/200 ML BAG IVPB SCH (14:32)
--- NOTE | 2017-03-04 15:02 | CP.PCM.CON ---
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) - RENAL Hx Chronic Kidney Disease: No - ENDOCRINE/METABOLIC Hx Endocrine Disorders: No - HEMATOLOGICAL/ONCOLOGICAL Hx Blood Disorders: No - INTEGUMENTARY Hx Dermatological Problems: No - MUSCULOSKELETAL/RHEUMATOLOGICAL Hx Musculoskeletal Disorders: No Hx Falls: No - GASTROINTESTINAL Hx Gastrointestinal Disorders: No - GENITOURINARY/GYNECOLOGICAL Hx Genitourinary Disorders: No - PSYCHIATRIC Hx Substance Use: No - SURGICAL HISTORY Hx Surgeries: Yes Hx Cardiac Catheterization: Yes - ANESTHESIA Hx Anesthesia: Yes Hx Anesthesia Reactions: No Meds Home Medications: Home Medication List Medication Instructions Recorded Confirmed Type Chlorthalidone [Hygroton] 25 mg PO DAILY tab 02/18/17 Rx Metoprolol Tartrate [Lopressor] 100 mg PO Q12 #60 tab 02/18/17 Rx diltiaZEM CD [Cardizem CD] 360 mg PO DAILY #30 cap 02/18/17 Rx levETIRAcetam [Keppra] 500 mg PO BID #60 tab 02/18/17 Rx Warfarin [Coumadin] 5 mg PO 1800 #5 tab 02/20/17 Rx oxyCODONE [oxyCODONE Immediate 5 mg PO Q6 PRN #20 tab 02/20/17 Rx Release Tab] Allergies/Adverse Reactions: Allergies Allergy/AdvReac Type Severity Reaction Status Date / Time banana Allergy SWELLING Verified 02/27/17 15:42 pineapple Allergy SWELLING Verified 02/27/17 15:42 - Medications Medications: Current Medications Amiodarone HCl (Cordarone) 200 mg PO BID [facility] Last Admin: 03/04/17 11:55 Dose: 200 mg Chlorthalidone (Hygroton) 25 mg PO DAILY [facility] Last Admin: 03/04/17 11:55 Dose: 25 mg Diltiazem HCl (Cardizem Cd) 360 mg PO DAILY [facility] Last Admin: 03/04/17 11:55 Dose: 360 mg Famotidine (Pepcid) 20 mg PO DAILY [facility] Last Admin: 03/04/17 11:54 Dose: 20 mg Finasteride (Proscar) 5 mg PO DAILY [facility] Last Admin: 03/04/17 11:55 Dose: 5 mg Hydralazine HCl (Apresoline) 10 mg IVP Q6H PRN PRN Reason: Systolic Blood Pressure Piperacillin Sod/Tazobactam (Sod 3.375 gm/ Sodium Chloride) 100 mls @ 200 mls/ hr IVPB Q6H [facility] Last Admin: 03/04/17 11:45 Dose: 200 mls/hr Vancomycin/Sodium Chloride (Vancocin) 1 gm in 200 mls @ 166.7 mls/hr IVPB Q24H [facility] Stop: 03/08/17 14:01 Last Admin: 03/04/17 14:32 Dose: 166.7 mls/hr Sodium Chloride (Sodium Chloride 0.9%) 1,000 mls @ 100 mls/hr IV .Q10H [facility] Last Admin: 03/04/17 11:59 Dose: Not Given Levetiracetam (Keppra) 500 mg PO BID [facility] Last Admin: 03/04/17 11:55 Dose: 500 mg Losartan Potassium (Cozaar) 100 mg PO DAILY [facility] Last Admin: 03/04/17 11:55 Dose: 100 mg Metoprolol Tartrate (Lopressor) 100 mg PO Q12 [facility] Last Admin: 03/04/17 11:54 Dose: 100 mg Ondansetron HCl (Zofran Inj) 4 mg IVP Q6 PRN PRN Reason: Nausea/Vomiting Potassium Chloride (K-Dur 20 Meq Er Tab) 20 meq PO DAILY [facility] Last Admin: 03/04/17 11:59 Dose: Not Given Tamsulosin HCl (Flomax) 0.4 mg PO DAILY [facility] Last Admin: 03/04/17 11:55 Dose: 0.4 mg Results - Vital Signs Recent Vital Signs: Last Vital Signs Temp 97.9 F 03/04/17 12:10 Pulse 84 03/04/17 12:10 Resp 20 03/04/17 12:10 BP 136/84 03/04/17 12:10 Pulse Ox 100 03/04/17 08:45 - Labs Result Diagrams: 03/04/17 11:14 03/04/17 11:14 Labs: Laboratory Results - last 24 hr 03/03/17 03/03/17 03/03/17 12:00 12:00 14:19 WBC RBC Hgb Hct MCV MCH MCHC RDW Plt Count MPV Neut % (Auto) Lymph % (Auto) [place] % (Auto) Eos % (Auto) Baso % (Auto) Neut # Lymph # [place] # Eos # Baso # Neutrophils % (Manual) Band Neutrophils % Lymphocytes % (Manual) Monocytes % (Manual) Platelet Estimate Hypochromasia (manual) Poikilocytosis (manual Anisocytosis (manual) Tear Drop Cells Ovalocytes ESR 88 H PT INR Puncture Site pCO2 pO2 HCO3 ABG pH ABG Total CO2 ABG O2 Saturation ABG Base Excess ABG Hemoglobin ABG Carboxyhemoglobin POC ABG HHb (Measured) ABG Methemoglobin Adryan Test VBG pH VBG pCO2 VBG HCO3 VBG Total CO2 VBG O2 Sat (Calc) VBG Base Excess VBG Potassium A-a O2 Difference Respiratory Index Hgb O2 Saturation Sodium Chloride Glucose Lactate Liter Flow FiO2 Potassium Carbon Dioxide Anion Gap BUN Creatinine Est GFR ( Amer) Est GFR (Non-Af Amer) POC Glucose (mg/dL) Random Glucose Calcium Phosphorus Magnesium Total Bilirubin AST ALT Alkaline Phosphatase Total Protein Albumin Globulin Albumin/Globulin Ratio Procalcitonin Venous Blood Potassium Stool Leukocytes, Qual Negative C. difficile Ag & Toxin Negative Blood Type Antibody Screen Antibody Identification 03/03/17 03/03/17 03/03/17 15:12 16:29 17:14 WBC RBC Hgb Hct MCV MCH MCHC RDW Plt Count MPV Neut % (Auto) Lymph % (Auto) [place] % (Auto) Eos % (Auto) Baso % (Auto) Neut # Lymph # [place] # Eos # Baso # Neutrophils % (Manual) Band Neutrophils % Lymphocytes % (Manual) Monocytes % (Manual) Platelet Estimate Hypochromasia (manual) Poikilocytosis (manual Anisocytosis (manual) Tear Drop Cells Ovalocytes ESR PT INR Puncture Site Rra pCO2 24 L pO2 145 H 86 H HCO3 22.3 ABG pH 7.50 H ABG Total CO2 19.4 L ABG O2 Saturation 99.5 H ABG Base Excess -3.4 L ABG Hemoglobin 9.7 L ABG Carboxyhemoglobin 1.7 H POC ABG HHb (Measured) 0.5 ABG Methemoglobin 1.6 Adryan Test Pos VBG pH 7.48 H VBG pCO2 30 L VBG HCO3 24.7 VBG Total CO2 23.2 VBG O2 Sat (Calc) 98.5 H VBG Base Excess -0.3 L VBG Potassium 3.5 L A-a O2 Difference 18.0 Respiratory Index 0.1 Hgb O2 Saturation 96.3 Sodium 133.0 Chloride 108.0 H Glucose 117 H Lactate 1.0 Liter Flow 2.0 FiO2 27.0 Potassium Carbon Dioxide Anion Gap BUN Creatinine Est GFR ( Amer) Est GFR (Non-Af Amer) POC Glucose (mg/dL) 185 H Random Glucose Calcium Phosphorus Magnesium Total Bilirubin AST ALT Alkaline Phosphatase Total Protein Albumin Globulin Albumin/Globulin Ratio Procalcitonin Venous Blood Potassium 3.5 L Stool Leukocytes, Qual C. difficile Ag & Toxin Blood Type Antibody Screen Antibody Identification 03/03/17 03/03/17 03/04/17 17:19 21:13 06:39 WBC RBC Hgb Hct MCV MCH MCHC RDW Plt Count MPV Neut % (Auto) Lymph % (Auto) [place] % (Auto) Eos % (Auto) Baso % (Auto) Neut # Lymph # [place] # Eos # Baso # Neutrophils % (Manual) Band Neutrophils % Lymphocytes % (Manual) Monocytes % (Manual) Platelet Estimate Hypochromasia (manual) Poikilocytosis (manual Anisocytosis (manual) Tear Drop Cells Ovalocytes ESR PT INR Puncture Site pCO2 pO2 HCO3 ABG pH ABG Total CO2 ABG O2 Saturation ABG Base Excess ABG Hemoglobin ABG Carboxyhemoglobin POC ABG HHb (Measured) ABG Methemoglobin Adryan Test VBG pH VBG pCO2 VBG HCO3 VBG Total CO2 VBG O2 Sat (Calc) VBG Base Excess VBG Potassium A-a O2 Difference Respiratory Index Hgb O2 Saturation Sodium Chloride Glucose Lactate Liter Flow FiO2 Potassium Carbon Dioxide Anion Gap BUN Creatinine Est GFR ( Amer) Est GFR (Non-Af Amer) POC Glucose (mg/dL) 125 H 102 Random Glucose Calcium Phosphorus Magnesium Total Bilirubin AST ALT Alkaline Phosphatase Total Protein Albumin Globulin Albumin/Globulin Ratio Procalcitonin 0.47 Venous Blood Potassium Stool Leukocytes, Qual C. difficile Ag & Toxin Blood Type Antibody Screen Antibody Identification 03/04/17 03/04/17 03/04/17 07:07 07:12 07:33 WBC RBC Hgb Hct MCV MCH MCHC RDW Plt Count MPV Neut % (Auto) Lymph % (Auto) [place] % (Auto) Eos % (Auto) Baso % (Auto) Neut # Lymph # [place] # Eos # Baso # Neutrophils % (Manual) Band Neutrophils % Lymphocytes % (Manual) Monocytes % (Manual) Platelet Estimate Hypochromasia (manual) Poikilocytosis (manual Anisocytosis (manual) Tear Drop Cells Ovalocytes ESR PT 33.4 H* D INR 2.9 D Puncture Site pCO2 pO2 HCO3 ABG pH ABG Total CO2 ABG O2 Saturation ABG Base Excess ABG Hemoglobin ABG Carboxyhemoglobin POC ABG HHb (Measured) ABG Methemoglobin Adryan Test VBG pH VBG pCO2 VBG HCO3 VBG Total CO2 VBG O2 Sat (Calc) VBG Base Excess VBG Potassium A-a O2 Difference Respiratory Index Hgb O2 Saturation Sodium Chloride Glucose Lactate Liter Flow FiO2 Potassium Carbon Dioxide Anion Gap BUN Creatinine Est GFR ( Amer) Est GFR (Non-Af Amer) POC Glucose (mg/dL) Random Glucose Calcium Phosphorus 4.4 Magnesium 2.0 Total Bilirubin AST ALT Alkaline Phosphatase Total Protein Albumin Globulin Albumin/Globulin Ratio Procalcitonin Venous Blood Potassium Stool Leukocytes, Qual C. difficile Ag & Toxin Blood Type O POSITIVE Antibody Screen Positive Antibody Identification Non Specific Antibody 03/04/17 03/04/17 03/04/17 11:14 11:14 12:26 WBC 20.9 H RBC 3.92 L Hgb 10.3 L Hct 30.9 L MCV 78.6 L MCH 26.3 L MCHC 33.4 RDW 15.3 H Plt Count 281 MPV 8.0 Neut % (Auto) 90.2 H Lymph % (Auto) 4.8 L [place] % (Auto) 4.9 Eos % (Auto) 0.0 Baso % (Auto) 0.1 Neut # 18.9 H Lymph # 1.0 [place] # 1.0 H Eos # 0.0 Baso # 0.0 Neutrophils % (Manual) 92 H Band Neutrophils % 2 Lymphocytes % (Manual) 3 L Monocytes % (Manual) 3 Platelet Estimate Normal Hypochromasia (manual) Slight Poikilocytosis (manual Slight Anisocytosis (manual) Slight Tear Drop Cells Slight Ovalocytes Slight ESR PT INR Puncture Site pCO2 pO2 HCO3 ABG pH ABG Total CO2 ABG O2 Saturation ABG Base Excess ABG Hemoglobin ABG Carboxyhemoglobin POC ABG HHb (Measured) ABG Methemoglobin Adryan Test VBG pH VBG pCO2 VBG HCO3 VBG Total CO2 VBG O2 Sat (Calc) VBG Base Excess VBG Potassium A-a O2 Difference Respiratory Index Hgb O2 Saturation Sodium 139 Chloride 103 Glucose Lactate Liter Flow FiO2 Potassium 3.6 Carbon Dioxide 20 L Anion Gap 20 BUN 24 H Creatinine 1.3 Est GFR ( Amer) > 60 Est GFR (Non-Af Amer) 55 POC Glucose (mg/dL) 123 H Random Glucose 91 Calcium 7.7 L Phosphorus Magnesium 2.2 Total Bilirubin 0.8 AST 101 H ALT 100 H Alkaline Phosphatase 132 H Total Protein 6.0 L Albumin 2.7 L Globulin 3.4 Albumin/Globulin Ratio 0.8 L Procalcitonin Venous Blood Potassium Stool Leukocytes, Qual C. difficile Ag & Toxin Blood Type Antibody Screen Antibody Identification
--- NOTE | 2017-03-04 15:46 | CP.PCM.PN ---
<CHRISSY PEARCE - Last Filed: 03/04/17 15:41> Subjective - Date & Time of Evaluation Date of Evaluation: 03/04/17 Time of Evaluation: 09:00 - Subjective Subjective: Chrissy Pearce DO PGY1 - Cardiology Progress Note for Dr. Brown Patient seen and examined at bedside. Patient was breathing slightly better on exam today, was receiving breathing treatment on ventimast. He is sleepy and lethargic, but responding to verbal stimuli. Denies any CP, but ROS limited by mental status Continues to have b/l leg pain. Patient is for b/l AKA today, coumadin held, Vit K given, and FFP ordered in anticipation for procedure Patient seen, discussed, and reviewed with attending Objective - Vital Signs/Intake and Output Vital Signs (last 24 hours): Temp Pulse Resp BP Pulse Ox 97.9 F 84 20 136/84 100 03/04/17 12:10 03/04/17 12:10 03/04/17 12:10 03/04/17 12:10 03/04/17 08:45 Intake and Output: 03/04/17 03/04/17 06:59 18:59 Intake Total 1850 Balance 1850 - Medications Medications: Current Medications Amiodarone HCl (Cordarone) 200 mg PO BID [facility] Last Admin: 03/04/17 11:55 Dose: 200 mg Chlorthalidone (Hygroton) 25 mg PO DAILY [facility] Last Admin: 03/04/17 11:55 Dose: 25 mg Diltiazem HCl (Cardizem Cd) 360 mg PO DAILY [facility] Last Admin: 03/04/17 11:55 Dose: 360 mg Famotidine (Pepcid) 20 mg PO DAILY [facility] Last Admin: 03/04/17 11:54 Dose: 20 mg Finasteride (Proscar) 5 mg PO DAILY [facility] Last Admin: 03/04/17 11:55 Dose: 5 mg Hydralazine HCl (Apresoline) 10 mg IVP Q6H PRN PRN Reason: Systolic Blood Pressure Piperacillin Sod/Tazobactam (Sod 3.375 gm/ Sodium Chloride) 100 mls @ 200 mls/ hr IVPB Q6H [facility] Last Admin: 03/04/17 11:45 Dose: 200 mls/hr Vancomycin/Sodium Chloride (Vancocin) 1 gm in 200 mls @ 166.7 mls/hr IVPB Q24H [facility] Stop: 03/08/17 14:01 Last Admin: 03/04/17 14:32 Dose: 166.7 mls/hr Sodium Chloride (Sodium Chloride 0.9%) 1,000 mls @ 100 mls/hr IV .Q10H [facility] Last Admin: 03/04/17 11:59 Dose: Not Given Levetiracetam (Keppra) 500 mg PO BID [facility] Last Admin: 03/04/17 11:55 Dose: 500 mg Losartan Potassium (Cozaar) 100 mg PO DAILY [facility] Last Admin: 03/04/17 11:55 Dose: 100 mg Metoprolol Tartrate (Lopressor) 100 mg PO Q12 [facility] Last Admin: 03/04/17 11:54 Dose: 100 mg Ondansetron HCl (Zofran Inj) 4 mg IVP Q6 PRN PRN Reason: Nausea/Vomiting Potassium Chloride (K-Dur 20 Meq Er Tab) 20 meq PO DAILY [facility] Last Admin: 03/04/17 11:59 Dose: Not Given Tamsulosin HCl (Flomax) 0.4 mg PO DAILY [facility] Last Admin: 03/04/17 11:55 Dose: 0.4 mg - Labs Labs: 03/04/17 11:14 03/04/17 11:14 PT 33.4 SECONDS (9.7-12.2) H* D 03/04/17 07:33 INR 2.9 D 03/04/17 07:33 APTT 29 SECONDS (21-34) 02/27/17 08:00 - Constitutional Appears: Toxic, No Acute Distress, Confused, Chronically Ill - Head Exam Head Exam: ATRAUMATIC, NORMOCEPHALIC - Eye Exam Eye Exam: EOMI, Normal appearance - Neck Exam Neck Exam: Normal Inspection - Respiratory Exam Respiratory Exam: Clear to Ausculation Bilateral. absent: Rales, Rhonchi, Wheezes - Cardiovascular Exam Cardiovascular Exam: RRR, +S1, +S2 - GI/Abdominal Exam GI & Abdominal Exam: Soft. absent: Tenderness - Extremities Exam Additional comments: b/l 1-2+ nonpitting edema, cold skin, b/l wound care dressings in place - Neurological Exam Additional comments: Lethargic, responds to verbal stimuli, but not answering questions appropriately - Skin Skin Exam: Dry, Intact, Normal Color Assessment and Plan (1) NSVT (nonsustained ventricular tachycardia) Assessment & Plan: HR currently stable, with no events of VTach recorded on monitor in past 24 hrs Continue amiodarone Status: Acute (2) Atrial fibrillation Assessment & Plan: Rate controlled Continue CCB, BB Currently anticoagulated on coumadin 5mg daily, INR goal 2.5; was supratherapeutic yesterday, but 2.4 today; Coumadin held, received 1 dose of vit K per primary team yesterday, and FFP ordered by surgery, in preparation for surgery today. Resume coumadin after surgery per their recs Status: Acute (3) Critical lower limb ischemia Assessment & Plan: Patient has history of PAD and initially presented with b/l lower limb ischemia L>R, now s/p thrombectomy Anticoagulated on coumadin, as above; now held pending surgery Wound care following B/L LE remain cold, poorly perfused Patient is for b/l AKA today Status: Acute (4) HTN (hypertension), malignant Assessment & Plan: BP currently stable Continue PO chlorthalidone, PO losartan, PO cardizem, PO metroprolol Continue PRN IV hydralazine, has not required it in over a week Status: Acute <Luis Brown - Last Filed: 03/05/17 00:26> Objective - Vital Signs/Intake and Output Vital Signs (last 24 hours): Temp Pulse Resp BP Pulse Ox 98.2 F 81 14 122/64 100 03/04/17 23:30 03/04/17 23:30 03/04/17 23:30 03/04/17 23:30 03/04/17 23:30 Intake and Output: 03/04/17 03/05/17 18:59 06:59 Intake Total 1400 325 Balance 1400 325 - Medications Medications: Current Medications Amiodarone HCl (Cordarone) 200 mg PO BID [facility] Last Admin: 03/04/17 11:55 Dose: 200 mg Chlorthalidone (Hygroton) 25 mg PO DAILY [facility] Last Admin: 03/04/17 11:55 Dose: 25 mg Diltiazem HCl (Cardizem Cd) 360 mg PO DAILY [facility] Last Admin: 03/04/17 11:55 Dose: 360 mg Famotidine (Pepcid) 20 mg PO DAILY [facility] Last Admin: 03/04/17 11:54 Dose: 20 mg Finasteride (Proscar) 5 mg PO DAILY [facility] Last Admin: 03/04/17 11:55 Dose: 5 mg Hydralazine HCl (Apresoline) 10 mg IVP Q6H PRN PRN Reason: Systolic Blood Pressure Hydromorphone HCl (Dilaudid) 1 mg IVP Q4H PRN PRN Reason: Pain, severe (8-10) Piperacillin Sod/Tazobactam (Sod 3.375 gm/ Sodium Chloride) 100 mls @ 200 mls/ hr IVPB Q6H [facility] Last Admin: 03/04/17 22:45 Dose: 100 mls Vancomycin/Sodium Chloride (Vancocin) 1 gm in 200 mls @ 166.7 mls/hr IVPB Q24H [facility] Stop: 03/08/17 14:01 Last Admin: 03/04/17 14:32 Dose: 166.7 mls/hr Sodium Chloride (Sodium Chloride 0.9%) 1,000 mls @ 100 mls/hr IV .Q10H [facility] Last Admin: 03/04/17 11:59 Dose: Not Given Ketorolac Tromethamine (Toradol) 30 mg IVP Q6 PRN PRN Reason: Pain, moderate (4-7) Levetiracetam (Keppra) 500 mg PO BID [facility] Last Admin: 03/04/17 11:55 Dose: 500 mg Losartan Potassium (Cozaar) 100 mg PO DAILY [facility] Last Admin: 03/04/17 11:55 Dose: 100 mg Metoprolol Tartrate (Lopressor) 100 mg PO Q12 [facility] Last Admin: 03/04/17 11:54 Dose: 100 mg Morphine Sulfate (Morphine) 1 mg IVP Q10M PRN PRN Reason: Pain, severe (8-10) Stop: 03/05/17 00:41 Ondansetron HCl (Zofran Inj) 4 mg IVP Q6 PRN PRN Reason: Nausea/Vomiting Ondansetron HCl (Zofran Inj) 4 mg IVP ONCE PRN PRN Reason: Nausea/Vomiting Stop: 03/05/17 00:41 Oxycodone/Acetaminophen (Percocet 5/325 Mg Tab) 2 tab PO Q4H PRN PRN Reason: Pain, Mild (1-3) Stop: 03/07/17 22:36 Potassium Chloride (K-Dur 20 Meq Er Tab) 20 meq PO DAILY [facility] Last Admin: 03/04/17 11:59 Dose: Not Given Tamsulosin HCl (Flomax) 0.4 mg PO DAILY [facility] Last Admin: 03/04/17 11:55 Dose: 0.4 mg - Labs Labs: 03/04/17 11:14 03/04/17 11:14 PT 22.5 SECONDS (9.7-12.2) H D 03/04/17 16:21 INR 2.0 D 03/04/17 16:21 APTT 29 SECONDS (21-34) 02/27/17 08:00 Assessment and Plan (1) NSVT (nonsustained ventricular tachycardia) Status: Acute (2) Atrial fibrillation Status: Acute (3) HTN (hypertension), malignant Status: Acute (4) Critical lower limb ischemia Status: Acute Attending/Attestation - Attestation I have personally seen and examined this patient.: Yes I have fully participated in the care of the patient.: Yes I have reviewed all pertinent clinical information, including history, physical exam and plan: Yes Notes (Text): 03/05/17 00:25 plan for b/l BKA coumadin held , vitamin K and FFP given high risk for perioperative cardiac event but surgery necessary cont periop BB
--- NOTE | 2017-03-04 16:36 | CP.PCM.CON ---
History of Present Illness - History of Present Illness History of Present Illness: 71 yo male with severe PVD became septic going to OR cultures sent for bilat WILLI Review of Systems - Review of Systems All systems: reviewed and no additional remarkable complaints except 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) - RENAL Hx Chronic Kidney Disease: No - ENDOCRINE/METABOLIC Hx Endocrine Disorders: No - HEMATOLOGICAL/ONCOLOGICAL Hx Blood Disorders: No - INTEGUMENTARY Hx Dermatological Problems: No - MUSCULOSKELETAL/RHEUMATOLOGICAL Hx Musculoskeletal Disorders: No Hx Falls: No - GASTROINTESTINAL Hx Gastrointestinal Disorders: No - GENITOURINARY/GYNECOLOGICAL Hx Genitourinary Disorders: No - PSYCHIATRIC Hx Substance Use: No - SURGICAL HISTORY Hx Surgeries: Yes Hx Cardiac Catheterization: Yes - ANESTHESIA Hx Anesthesia: Yes Hx Anesthesia Reactions: No Meds Home Medications: Home Medication List Medication Instructions Recorded Confirmed Type Chlorthalidone [Hygroton] 25 mg PO DAILY tab 02/18/17 Rx Metoprolol Tartrate [Lopressor] 100 mg PO Q12 #60 tab 02/18/17 Rx diltiaZEM CD [Cardizem CD] 360 mg PO DAILY #30 cap 02/18/17 Rx levETIRAcetam [Keppra] 500 mg PO BID #60 tab 02/18/17 Rx Warfarin [Coumadin] 5 mg PO 1800 #5 tab 02/20/17 Rx oxyCODONE [oxyCODONE Immediate 5 mg PO Q6 PRN #20 tab 02/20/17 Rx Release Tab] Allergies/Adverse Reactions: Allergies Allergy/AdvReac Type Severity Reaction Status Date / Time banana Allergy SWELLING Verified 02/27/17 15:42 pineapple Allergy SWELLING Verified 02/27/17 15:42 - Medications Medications: Current Medications Amiodarone HCl (Cordarone) 200 mg PO BID [facility] Last Admin: 03/04/17 11:55 Dose: 200 mg Chlorthalidone (Hygroton) 25 mg PO DAILY [facility] Last Admin: 03/04/17 11:55 Dose: 25 mg Diltiazem HCl (Cardizem Cd) 360 mg PO DAILY [facility] Last Admin: 03/04/17 11:55 Dose: 360 mg Famotidine (Pepcid) 20 mg PO DAILY [facility] Last Admin: 03/04/17 11:54 Dose: 20 mg Finasteride (Proscar) 5 mg PO DAILY [facility] Last Admin: 03/04/17 11:55 Dose: 5 mg Hydralazine HCl (Apresoline) 10 mg IVP Q6H PRN PRN Reason: Systolic Blood Pressure Piperacillin Sod/Tazobactam (Sod 3.375 gm/ Sodium Chloride) 100 mls @ 200 mls/ hr IVPB Q6H [facility] Last Admin: 03/04/17 11:45 Dose: 200 mls/hr Vancomycin/Sodium Chloride (Vancocin) 1 gm in 200 mls @ 166.7 mls/hr IVPB Q24H [facility] Stop: 03/08/17 14:01 Last Admin: 03/04/17 14:32 Dose: 166.7 mls/hr Sodium Chloride (Sodium Chloride 0.9%) 1,000 mls @ 100 mls/hr IV .Q10H [facility] Last Admin: 03/04/17 11:59 Dose: Not Given Levetiracetam (Keppra) 500 mg PO BID [facility] Last Admin: 03/04/17 11:55 Dose: 500 mg Losartan Potassium (Cozaar) 100 mg PO DAILY [facility] Last Admin: 03/04/17 11:55 Dose: 100 mg Metoprolol Tartrate (Lopressor) 100 mg PO Q12 [facility] Last Admin: 03/04/17 11:54 Dose: 100 mg Ondansetron HCl (Zofran Inj) 4 mg IVP Q6 PRN PRN Reason: Nausea/Vomiting Potassium Chloride (K-Dur 20 Meq Er Tab) 20 meq PO DAILY [facility] Last Admin: 03/04/17 11:59 Dose: Not Given Tamsulosin HCl (Flomax) 0.4 mg PO DAILY [facility] Last Admin: 03/04/17 11:55 Dose: 0.4 mg Physical Exam - Constitutional Appears: Confused, Chronically Ill - Head Exam Head Exam: ATRAUMATIC, NORMOCEPHALIC - Eye Exam Eye Exam: PERRL. absent: Scleral icterus - ENT Exam ENT Exam: Mucous Membranes Dry - Neck Exam Neck exam: Negative for: Lymphadenopathy - Respiratory Exam Respiratory Exam: Decreased Breath Sounds - Cardiovascular Exam Cardiovascular Exam: REGULAR RHYTHM - GI/Abdominal Exam GI & Abdominal Exam: Diminished Bowel Sounds - Rectal Exam Rectal Exam: Deferred - Exam Exam: NORMAL INSPECTION - Extremities Exam Extremities exam: Positive for: calf tenderness, tenderness. Negative for: pedal pulses present - Back Exam Back exam: absent: CVA tenderness (L), CVA tenderness (R) - Neurological Exam Neurological exam: Alert, CN II-XII Intact - Psychiatric Exam Psychiatric exam: Normal Mood - Skin Skin Exam: Dry Results - Vital Signs Recent Vital Signs: Last Vital Signs Temp 97.9 F 03/04/17 12:10 Pulse 81 03/04/17 12:30 Resp 20 03/04/17 12:10 BP 136/84 03/04/17 12:10 Pulse Ox 100 03/04/17 08:45 - Labs Result Diagrams: 03/04/17 11:14 03/04/17 11:14 Labs: Laboratory Results - last 24 hr 03/03/17 03/03/17 03/03/17 12:00 12:00 16:29 WBC RBC Hgb Hct MCV MCH MCHC RDW Plt Count MPV Neut % (Auto) Lymph % (Auto) [place] % (Auto) Eos % (Auto) Baso % (Auto) Neut # Lymph # [place] # Eos # Baso # Neutrophils % (Manual) Band Neutrophils % Lymphocytes % (Manual) Monocytes % (Manual) Platelet Estimate Hypochromasia (manual) Poikilocytosis (manual Anisocytosis (manual) Tear Drop Cells Ovalocytes PT INR pO2 VBG pH VBG pCO2 VBG HCO3 VBG Total CO2 VBG O2 Sat (Calc) VBG Base Excess VBG Potassium Sodium Chloride Glucose Lactate Potassium Carbon Dioxide Anion Gap BUN Creatinine Est GFR ( Amer) Est GFR (Non-Af Amer) POC Glucose (mg/dL) 185 H Random Glucose Calcium Phosphorus Magnesium Total Bilirubin AST ALT Alkaline Phosphatase Total Protein Albumin Globulin Albumin/Globulin Ratio Procalcitonin Venous Blood Potassium Stool Leukocytes, Qual Negative C. difficile Ag & Toxin Negative Blood Type Antibody Screen Antibody Identification 03/03/17 03/03/17 03/03/17 17:14 17:19 21:13 WBC RBC Hgb Hct MCV MCH MCHC RDW Plt Count MPV Neut % (Auto) Lymph % (Auto) [place] % (Auto) Eos % (Auto) Baso % (Auto) Neut # Lymph # [place] # Eos # Baso # Neutrophils % (Manual) Band Neutrophils % Lymphocytes % (Manual) Monocytes % (Manual) Platelet Estimate Hypochromasia (manual) Poikilocytosis (manual Anisocytosis (manual) Tear Drop Cells Ovalocytes PT INR pO2 86 H VBG pH 7.48 H VBG pCO2 30 L VBG HCO3 24.7 VBG Total CO2 23.2 VBG O2 Sat (Calc) 98.5 H VBG Base Excess -0.3 L VBG Potassium 3.5 L Sodium 133.0 Chloride 108.0 H Glucose 117 H Lactate 1.0 Potassium Carbon Dioxide Anion Gap BUN Creatinine Est GFR ( Amer) Est GFR (Non-Af Amer) POC Glucose (mg/dL) 125 H Random Glucose Calcium Phosphorus Magnesium Total Bilirubin AST ALT Alkaline Phosphatase Total Protein Albumin Globulin Albumin/Globulin Ratio Procalcitonin 0.47 Venous Blood Potassium 3.5 L Stool Leukocytes, Qual C. difficile Ag & Toxin Blood Type Antibody Screen Antibody Identification 03/04/17 03/04/17 03/04/17 06:39 07:07 07:12 WBC RBC Hgb Hct MCV MCH MCHC RDW Plt Count MPV Neut % (Auto) Lymph % (Auto) [place] % (Auto) Eos % (Auto) Baso % (Auto) Neut # Lymph # [place] # Eos # Baso # Neutrophils % (Manual) Band Neutrophils % Lymphocytes % (Manual) Monocytes % (Manual) Platelet Estimate Hypochromasia (manual) Poikilocytosis (manual Anisocytosis (manual) Tear Drop Cells Ovalocytes PT INR pO2 VBG pH VBG pCO2 VBG HCO3 VBG Total CO2 VBG O2 Sat (Calc) VBG Base Excess VBG Potassium Sodium Chloride Glucose Lactate Potassium Carbon Dioxide Anion Gap BUN Creatinine Est GFR ( Amer) Est GFR (Non-Af Amer) POC Glucose (mg/dL) 102 Random Glucose Calcium Phosphorus 4.4 Magnesium 2.0 Total Bilirubin AST ALT Alkaline Phosphatase Total Protein Albumin Globulin Albumin/Globulin Ratio Procalcitonin Venous Blood Potassium Stool Leukocytes, Qual C. difficile Ag & Toxin Blood Type O POSITIVE Antibody Screen Positive Antibody Identification Non Specific Antibody 03/04/17 03/04/17 03/04/17 07:33 11:14 11:14 WBC 20.9 H RBC 3.92 L Hgb 10.3 L Hct 30.9 L MCV 78.6 L MCH 26.3 L MCHC 33.4 RDW 15.3 H Plt Count 281 MPV 8.0 Neut % (Auto) 90.2 H Lymph % (Auto) 4.8 L [place] % (Auto) 4.9 Eos % (Auto) 0.0 Baso % (Auto) 0.1 Neut # 18.9 H Lymph # 1.0 [place] # 1.0 H Eos # 0.0 Baso # 0.0 Neutrophils % (Manual) 92 H Band Neutrophils % 2 Lymphocytes % (Manual) 3 L Monocytes % (Manual) 3 Platelet Estimate Normal Hypochromasia (manual) Slight Poikilocytosis (manual Slight Anisocytosis (manual) Slight Tear Drop Cells Slight Ovalocytes Slight PT 33.4 H* D INR 2.9 D pO2 VBG pH VBG pCO2 VBG HCO3 VBG Total CO2 VBG O2 Sat (Calc) VBG Base Excess VBG Potassium Sodium 139 Chloride 103 Glucose Lactate Potassium 3.6 Carbon Dioxide 20 L Anion Gap 20 BUN 24 H Creatinine 1.3 Est GFR ( Amer) > 60 Est GFR (Non-Af Amer) 55 POC Glucose (mg/dL) Random Glucose 91 Calcium 7.7 L Phosphorus Magnesium 2.2 Total Bilirubin 0.8 AST 101 H ALT 100 H Alkaline Phosphatase 132 H Total Protein 6.0 L Albumin 2.7 L Globulin 3.4 Albumin/Globulin Ratio 0.8 L Procalcitonin Venous Blood Potassium Stool Leukocytes, Qual C. difficile Ag & Toxin Blood Type Antibody Screen Antibody Identification 03/04/17 12:26 WBC RBC Hgb Hct MCV MCH MCHC RDW Plt Count MPV Neut % (Auto) Lymph % (Auto) [place] % (Auto) Eos % (Auto) Baso % (Auto) Neut # Lymph # [place] # Eos # Baso # Neutrophils % (Manual) Band Neutrophils % Lymphocytes % (Manual) Monocytes % (Manual) Platelet Estimate Hypochromasia (manual) Poikilocytosis (manual Anisocytosis (manual) Tear Drop Cells Ovalocytes PT INR pO2 VBG pH VBG pCO2 VBG HCO3 VBG Total CO2 VBG O2 Sat (Calc) VBG Base Excess VBG Potassium Sodium Chloride Glucose Lactate Potassium Carbon Dioxide Anion Gap BUN Creatinine Est GFR ( Amer) Est GFR (Non-Af Amer) POC Glucose (mg/dL) 123 H Random Glucose Calcium Phosphorus Magnesium Total Bilirubin AST ALT Alkaline Phosphatase Total Protein Albumin Globulin Albumin/Globulin Ratio Procalcitonin Venous Blood Potassium Stool Leukocytes, Qual C. difficile Ag & Toxin Blood Type Antibody Screen Antibody Identification Assessment & Plan (1) Critical lower limb ischemia Status: Acute - Assessment and Plan (Free Text) Assessment: cont iv antibiotics
[2017-03-04] MEDS ORDERED: Propofol 10 mg/ml Inj (20 ML) ONE (19:52)
[2017-03-04] MEDS ORDERED: Etomidate 20 mg/10ml Inj IV ONE (20:33)
[2017-03-04] MEDS ORDERED: Lactated Ringer's 1,000 ML IV ONE ×2 (20:35)
[2017-03-04] MEDS ORDERED: Sodium Chloride 0.9% 500 ML IV ONE ×2 (20:35)
[2017-03-04] MEDS ORDERED: Rocuronium 10 mg/ml (5 ml) ONE (21:15)
[2017-03-04] MEDS ORDERED: HYDROmorphone 1 mg/ml ISec IVP PRN (22:33)
[2017-03-04] MEDS ORDERED: Oxycodone/Acetaminophen 5/325 mg Tab PO PRN (22:35)
--- NOTE | 2017-03-04 22:38 | PCM.SURG1 ---
Surgeon's Initial Post Op Note - Surgeon's Notes Surgeon: Dr. Medel Waiter/Waitress Third Class: Amara Long PGY2, Naty PGY1 Type of Anesthesia: General Endo Pre-Operative Diagnosis: b/l limb ischemia Operative Findings: limb ischemia Post-Operative Diagnosis: Same Operation Performed: b/l AKA Specimen/Specimens Removed: b/l lower limbs Estimated Blood Loss: EBL {In ML}: 400 Blood Products Given: PRBC Drains Used: No Drains Post-Op Condition: Good Date of Surgery/Procedure: 03/04/17 Time of Surgery/Procedure: 22:38
--- NOTE | 2017-03-05 03:51 | OP ---
PROCEDURE DATE: 03/04/2017 PREOPERATIVE DIAGNOSIS: Gangrene of both feet, sepsis. PROCEDURE CARRIED OUT: Bilateral above-knee amputation. SURGEON: Desmond Kaur Jr., MD PARBOILER: Dr. Velasquez and . INDICATIONS: The patient is an older man with history of strokes, atrial fibrillation, had an embolic event to the right leg and had ischemia of both legs. Progressively, this has failed to improve. He has developed gangrene of the feet and now requires amputation. Intraoperative imaging in his previous admission did not reveal any named vessels in the foot and to which a bypass could have been done. After completion of the operation, which had a blood loss of approximately 400 mL, the wounds were closed with Monocryl and Vicryl sutures, and the skin was closed with skin clips. Standard above-knee amputation with a fish-mouth flap was carried out on both sides. Both superficial femoral arteries were occluded. Desmond Kaur Jr., MD
[2017-03-05] MEDS: Piperacillin/Tazobact 3.375 GM in Sodium Chloride 100 ML IVPB SCH ×4 (04:50→22:02)
[2017-03-05 06:44] LABS: BASO % 0.1 % (0.0-2.0); EOS % 0.1 % (0.0-4.0); HEMATOCRIT 28.9 % (35.0-51.0); LYMPH # 1.4 K/uL (1.0-4.3); LYMPH % 11.2 % (20.0-40.0); MEAN CELL VOLUME 79.3 fL (80.0-94.0); MEAN CORPUSCULAR HEMOGLOBIN 26.9 pg (27.0-31.0); MEAN CORPUSCULAR HGB CONC 33.9 g/dL (33.0-37.0); MEAN PLATELET VOLUME 7.3 fL (7.2-11.7); MONO # 0.4 K/uL (0.0-0.8); MONO % 3.6 % (0.0-10.0); RED CELL DISTRIBUTION WIDTH 15.8 % (11.5-14.5); WHITE BLOOD COUNT 12.3 K/uL (4.8-10.8)
[2017-03-05 06:47] LABS: INR 1.7
[2017-03-05] MEDS: Sodium Chloride 0.9% 1,000 ML IV SCH ×2 (06:51→21:38)
[2017-03-05 07:01] LABS: ALB/GLOB RATIO 0.9 (1.0-2.1); ALKALINE PHOSPHATASE 94 U/L (38-126); ALT/SGPT 77 U/L (21-72); AST/SGOT 58 U/L (17-59); BILIRUBIN,TOTAL 0.9 mg/dL (0.2-1.3); BLOOD UREA NITROGEN 21 mg/dL (9-20); CARBON DIOXIDE 23 mmol/L (22-30); CHLORIDE 106 mmol/L (98-107); GFR AFRICAN-AMERICAN > 60; GLUCOSE,RANDOM 97 mg/dL (75-110); MAGNESIUM 2.2 mg/dL (1.6-2.3); PHOSPHOROUS 3.4 mg/dL (2.5-4.5); POTASSIUM 3.2 mmol/L (3.6-5.2); SODIUM 142 mmol/L (132-148); TOTAL PROTEIN 5.6 g/dL (6.3-8.3)
[2017-03-05] MEDS ORDERED: Potassium Chloride 20 mEq ER Tab PO ONE (09:15)
--- NOTE | 2017-03-05 09:43 | CP.PCM.PN ---
Subjective - Date & Time of Evaluation Date of Evaluation: 03/05/17 Time of Evaluation: 09:30 - Subjective Subjective: Medical Attending Note: Patient seen, examined at bedside. Patient's family not present. Patient worried and wants to know where his is. I explained to the patient he had emergent surgery for bilateral AKAs. Patient reports pain upon bilateral more right AKA compared to the left. Patient denies headache, denies chest pain, denies palpitations, denies shortness of breathe, denies abdominal pain, but exquisite pain by attempting to move the blanket over the right AKA. Objective - Vital Signs/Intake and Output Vital Signs (last 24 hours): Temp Pulse Resp BP Pulse Ox 98.6 F 94 H 19 126/67 100 03/05/17 04:00 03/05/17 07:32 03/05/17 07:32 03/05/17 07:32 03/05/17 07:32 Intake and Output: 03/05/17 03/05/17 06:59 18:59 Intake Total 1025 100 Balance 1025 100 - Medications Medications: Current Medications Amiodarone HCl (Cordarone) 200 mg PO BID [facility] Last Admin: 03/04/17 11:55 Dose: 200 mg Chlorthalidone (Hygroton) 25 mg PO DAILY [facility] Last Admin: 03/04/17 11:55 Dose: 25 mg Diltiazem HCl (Cardizem Cd) 360 mg PO DAILY [facility] Last Admin: 03/04/17 11:55 Dose: 360 mg Famotidine (Pepcid) 20 mg PO DAILY [facility] Last Admin: 03/04/17 11:54 Dose: 20 mg Finasteride (Proscar) 5 mg PO DAILY [facility] Last Admin: 03/04/17 11:55 Dose: 5 mg Hydralazine HCl (Apresoline) 10 mg IVP Q6H PRN PRN Reason: Systolic Blood Pressure Hydromorphone HCl (Dilaudid) 1 mg IVP Q4H PRN PRN Reason: Pain, severe (8-10) Last Admin: 03/05/17 06:10 Dose: 1 mg Piperacillin Sod/Tazobactam (Sod 3.375 gm/ Sodium Chloride) 100 mls @ 200 mls/ hr IVPB Q6H [facility] Last Admin: 03/05/17 04:50 Dose: 200 mls/hr Vancomycin/Sodium Chloride (Vancocin) 1 gm in 200 mls @ 166.7 mls/hr IVPB Q24H [facility] Stop: 03/08/17 14:01 Last Admin: 03/04/17 14:32 Dose: 166.7 mls/hr Sodium Chloride (Sodium Chloride 0.9%) 1,000 mls @ 100 mls/hr IV .Q10H [facility] Last Admin: 03/05/17 06:51 Dose: Not Given Ketorolac Tromethamine (Toradol) 30 mg IVP Q6 PRN PRN Reason: Pain, moderate (4-7) Levetiracetam (Keppra) 500 mg PO BID [facility] Last Admin: 03/04/17 11:55 Dose: 500 mg Losartan Potassium (Cozaar) 100 mg PO DAILY [facility] Last Admin: 03/04/17 11:55 Dose: 100 mg Metoprolol Tartrate (Lopressor) 100 mg PO Q12 [facility] Last Admin: 03/04/17 11:54 Dose: 100 mg Ondansetron HCl (Zofran Inj) 4 mg IVP Q6 PRN PRN Reason: Nausea/Vomiting Oxycodone/Acetaminophen (Percocet 5/325 Mg Tab) 2 tab PO Q4H PRN PRN Reason: Pain, Mild (1-3) Stop: 03/07/17 22:36 Potassium Chloride (K-Dur 20 Meq Er Tab) 20 meq PO DAILY [facility] Last Admin: 03/04/17 11:59 Dose: Not Given Tamsulosin HCl (Flomax) 0.4 mg PO DAILY [facility] Last Admin: 03/04/17 11:55 Dose: 0.4 mg - Labs Labs: 03/05/17 06:32 03/05/17 06:32 PT 19.6 SECONDS (9.7-12.2) H 03/05/17 06:32 INR 1.7 03/05/17 06:32 APTT 29 SECONDS (21-34) 02/27/17 08:00 - Constitutional Appears: Non-toxic, No Acute Distress - Head Exam Head Exam: NORMAL INSPECTION - Eye Exam Eye Exam: EOMI - ENT Exam ENT Exam: Mucous Membranes Dry - Respiratory Exam Respiratory Exam: NORMAL BREATHING PATTERN. absent: Rhonchi, Wheezes - Cardiovascular Exam Cardiovascular Exam: Irregular Rhythm, +S1, +S2 - GI/Abdominal Exam GI & Abdominal Exam: Soft, Normal Bowel Sounds. absent: Distended, Firm, Guarding, Rigid, Tenderness, Rebound - Extremities Exam Additional comments: b/l AKAs clean/dry/intact (with covering) - Back Exam Back Exam: absent: CVA tenderness (L), CVA tenderness (R) - Neurological Exam Neurological Exam: Alert, Awake, Oriented x3 - Psychiatric Exam Psychiatric exam: Normal Affect, Normal Mood - Skin Skin Exam: Dry, Normal Color, Warm Attending/Attestation - Attestation I have personally seen and examined this patient.: Yes I have fully participated in the care of the patient.: Yes I have reviewed all pertinent clinical information, including history, physical exam and plan: Yes Notes (Text): Assessment/Plan 1) Sepsis * Infectious Disease (Dr. Sarkar) on the case-->help appreciated * Will need to f/u with ID regarding Abx coverage for Serratia * Vascular surgery (Dr. Kaur) on the case--->help appreciated * Code sepsis 03/03 * 03/04: C/w IV abx; Patient awaiting surgery with Dr. Kaur later today; Reverse INR with FFP X3 units prior to OR * 03/05: White count improved. * IV abx: Zosyn 3.375 IVQ 6H (active since 03/03/17), Vancomycin 1gram IVPB Q 24H (active since 03/03/17) * s/p b/l AKA 03/04 * Cultures: * Urine Culture (03/03/17): Enterococcus Faecalis-->sensitive to Vancomycin and PCN * Blood cultures (03/03/17): No growth after 24 hours X2 * Urine culture (03/02/17): gram positive cocci * Blood culture (03/02/17): Bacillus species * Blood Culture (03/02/17): no growth after 48 hours * Leg Right and Left (03/02/17): Serratia Marcescens and Enterococcus Faecalis 2). Severe PAD; Critical Limb Ischemia s/p b/l AKA POD 1 * Vascular surgery (Dr. Kaur) on the case-->help appreciated * Will need to f/u surgery to determine when anticoagulation can be restarted * Cardiology (Dr. Brown) on the case-->help appreciated * Will need to f/u anticoagulation with surgery * Family has been routinely updated regarding the progression and necrosis of the legs; and ultimately decided on 03/03/17 for surgery * s/p 02/05/17 Femoral embolectomy via groin incision, right and left with intraoperative angiograms-->bilateral femoral embolectomy by groin incision and angiography-->clot removed by the right lower extremity; no clot from the left. * s/p 03/04/17 b/l AKA 3). Malignant Hypertension * Sheriff Dr. Brown 02/12/17 on board-->help appreciated * Blood pressure controlled * Chlorthalidone 25mg PO daily * Cozaar 100mg PO daily * Hydralazine 10mg IV Q 6hour PRN Give above 160 SBP * Cardizem CD 360 mg 1x/day * Metoprolol 100mg PO Q bid. * CT Angiogram of the Abdomen/Pelvis 02/04/17 did NOT show any evidence of Renal Artery Stenosis 4). Hx Atrial Fibrillation * Cardiology (Dr. Brown) on the case-->help appreciated * Will f/u with surgery to determine to when to restart anticoagulation * INR was reversed with 3 units of FFP and vitamin K prior to patient going for emergent surgery 03/04/17 * Cardizem CD 360 mg PO 1x/day * Metoprolol 100 mg PO Q12H * Amiodarone 200mg PO BID thereafter 5). Hx Seizure Disorder: * Neurology Consult was ordered with Dr. Onesimo Hogan to see if patient could be switched over to Keppra. * Dr. Hogan has placed patient on Keppra 500 mg PO 2x/day * Patient's prior CT scans showing encephalomacia given history of multiple strokes in the past 6). Hx Multiple CVAs: * Downtrending * Crestor is being held considering the elevated LFTs and that his Lipid Profile is currently WNL. * His Lipid profile and LFTs will need to be monitored by his PMD upon discharge. 7). Elevated LFTs: * Abdominal US: shows adenomyosis of gallbladder and other findings; will need outpatient follow-up with GI. * Downtrending 8) Enlarged prostate, Urinary Retention. * Renal US: high postvoid residual and enlarged prostate. Nephrology started on Flomax 0.4mg PO daily and Proscar 5mg PO daily * Will need to monitor urinary output 9). Prophylaxis: * Pepcid 20mg PO daily * Zofran 4mg IVP Q 6H PRN nausea * Will need to f/u with surgery regarding when to restart anticoagulation for atrial fibrillation
--- NOTE | 2017-03-05 09:52 | CP.PCM.PN ---
<CHRISSY PEARCE - Last Filed: 03/05/17 10:55> Subjective - Date & Time of Evaluation Date of Evaluation: 03/05/17 Time of Evaluation: 08:00 - Subjective Subjective: Chrissy Pearce DO PGY1 - Cardiology Progress Note for Dr. Brown Patient seen and examined at bedside. Patient is s/p b/l AKA POD 1. He is much more awake and alert today, asking to speak to his . He denies any CP, SOB, palpitations, dizziness, CARREON. He has some pain at both stumps, R>L. Objective - Vital Signs/Intake and Output Vital Signs (last 24 hours): Temp Pulse Resp BP Pulse Ox 98.6 F 94 H 19 126/67 100 03/05/17 04:00 03/05/17 07:32 03/05/17 07:32 03/05/17 07:32 03/05/17 07:32 Intake and Output: 03/05/17 03/05/17 06:59 18:59 Intake Total 1025 100 Balance 1025 100 - Medications Medications: Current Medications Amiodarone HCl (Cordarone) 200 mg PO BID [facility] Last Admin: 03/04/17 11:55 Dose: 200 mg Chlorthalidone (Hygroton) 25 mg PO DAILY [facility] Last Admin: 03/04/17 11:55 Dose: 25 mg Diltiazem HCl (Cardizem Cd) 360 mg PO DAILY [facility] Last Admin: 03/04/17 11:55 Dose: 360 mg Famotidine (Pepcid) 20 mg PO DAILY [facility] Last Admin: 03/04/17 11:54 Dose: 20 mg Finasteride (Proscar) 5 mg PO DAILY [facility] Last Admin: 03/04/17 11:55 Dose: 5 mg Hydralazine HCl (Apresoline) 10 mg IVP Q6H PRN PRN Reason: Systolic Blood Pressure Hydromorphone HCl (Dilaudid) 1 mg IVP Q4H PRN PRN Reason: Pain, severe (8-10) Last Admin: 03/05/17 06:10 Dose: 1 mg Piperacillin Sod/Tazobactam (Sod 3.375 gm/ Sodium Chloride) 100 mls @ 200 mls/ hr IVPB Q6H [facility] Last Admin: 03/05/17 04:50 Dose: 200 mls/hr Vancomycin/Sodium Chloride (Vancocin) 1 gm in 200 mls @ 166.7 mls/hr IVPB Q24H [facility] Stop: 03/08/17 14:01 Last Admin: 03/04/17 14:32 Dose: 166.7 mls/hr Sodium Chloride (Sodium Chloride 0.9%) 1,000 mls @ 100 mls/hr IV .Q10H [facility] Last Admin: 03/05/17 06:51 Dose: Not Given Ketorolac Tromethamine (Toradol) 30 mg IVP Q6 PRN PRN Reason: Pain, moderate (4-7) Levetiracetam (Keppra) 500 mg PO BID [facility] Last Admin: 03/04/17 11:55 Dose: 500 mg Losartan Potassium (Cozaar) 100 mg PO DAILY [facility] Last Admin: 03/04/17 11:55 Dose: 100 mg Metoprolol Tartrate (Lopressor) 100 mg PO Q12 [facility] Last Admin: 03/04/17 11:54 Dose: 100 mg Ondansetron HCl (Zofran Inj) 4 mg IVP Q6 PRN PRN Reason: Nausea/Vomiting Oxycodone/Acetaminophen (Percocet 5/325 Mg Tab) 2 tab PO Q4H PRN PRN Reason: Pain, Mild (1-3) Stop: 03/07/17 22:36 Potassium Chloride (K-Dur 20 Meq Er Tab) 20 meq PO DAILY [facility] Last Admin: 03/04/17 11:59 Dose: Not Given Tamsulosin HCl (Flomax) 0.4 mg PO DAILY [facility] Last Admin: 03/04/17 11:55 Dose: 0.4 mg - Labs Labs: 03/05/17 06:32 03/05/17 06:32 PT 19.6 SECONDS (9.7-12.2) H 03/05/17 06:32 INR 1.7 03/05/17 06:32 APTT 29 SECONDS (21-34) 02/27/17 08:00 - Constitutional Appears: Non-toxic, No Acute Distress - Head Exam Head Exam: ATRAUMATIC, NORMOCEPHALIC - Eye Exam Eye Exam: EOMI, Normal appearance - ENT Exam ENT Exam: Mucous Membranes Moist - Neck Exam Neck Exam: Normal Inspection - Respiratory Exam Respiratory Exam: Clear to Ausculation Bilateral. absent: Rales, Rhonchi, Wheezes - Cardiovascular Exam Cardiovascular Exam: RRR, +S1, +S2. absent: Tachycardia - GI/Abdominal Exam GI & Abdominal Exam: Soft. absent: Tenderness - Extremities Exam Additional comments: b/l AKA, mild tenderness left stump, extreme tenderness R stump; did not even tolerate us moving the blanket to examine - Neurological Exam Neurological Exam: Alert, Awake - Psychiatric Exam Psychiatric exam: Normal Affect, Normal Mood - Skin Skin Exam: Dry, Intact Assessment and Plan (1) NSVT (nonsustained ventricular tachycardia) Assessment & Plan: HR currently stable, with no events of VTach recorded on monitor in past 24 hrs Continue amiodarone Status: Acute (2) Atrial fibrillation Assessment & Plan: Rate controlled Continue CCB, BB Previously anticoagulated on coumadin 5mg daily, INR goal 2.5; was supratherapeutic 3 days ago, but now subtherapeutic at 1.7; Coumadin was held preoperative and was given vitamin K and FFP in anticipation of the surgery Pending surgical recommendations to resume coumadin Status: Acute (3) Critical lower limb ischemia Assessment & Plan: Patient is POD 1 s/p b/l AKA Patient has history of PAD and initially presented with b/l lower limb ischemia L>R, s/p thrombectomy Anticoagulated on coumadin, as above; now held perioperatively Wound care following Status: Acute (4) HTN (hypertension), malignant Assessment & Plan: BP currently stable, though low compared to his baseline after the surgery Stop chlothalidone; hold PRN hydralazine Decrease losartan dose Continue PO losartan, PO cardizem, PO metroprolol Continue to monitor BP and titrate as needed Status: Acute <Luis Brown - Last Filed: 03/05/17 19:04> Objective - Vital Signs/Intake and Output Vital Signs (last 24 hours): Temp Pulse Resp BP Pulse Ox 98.9 F 64 14 100/67 97 03/05/17 16:00 03/05/17 18:00 03/05/17 18:00 03/05/17 17:31 03/05/17 18:00 Intake and Output: 03/05/17 03/06/17 18:59 06:59 Intake Total 800 Balance 800 - Medications Medications: Current Medications Amiodarone HCl (Cordarone) 200 mg PO BID [facility] Last Admin: 03/05/17 17:58 Dose: 200 mg Diltiazem HCl (Cardizem Cd) 360 mg PO DAILY [facility] Last Admin: 03/05/17 10:18 Dose: 360 mg Famotidine (Pepcid) 20 mg PO DAILY [facility] Last Admin: 03/05/17 10:17 Dose: 20 mg Finasteride (Proscar) 5 mg PO DAILY [facility] Last Admin: 03/05/17 10:17 Dose: 5 mg Hydralazine HCl (Apresoline) 10 mg IVP Q6H PRN PRN Reason: Systolic Blood Pressure Hydromorphone HCl (Dilaudid) 1 mg IVP Q3 PRN PRN Reason: Pain, severe (8-10) Last Admin: 03/05/17 15:47 Dose: 1 mg Piperacillin Sod/Tazobactam (Sod 3.375 gm/ Sodium Chloride) 100 mls @ 200 mls/ hr IVPB Q6H [facility] Last Admin: 03/05/17 15:53 Dose: 200 mls/hr Vancomycin/Sodium Chloride (Vancocin) 1 gm in 200 mls @ 166.7 mls/hr IVPB Q24H [facility] Stop: 03/08/17 14:01 Last Admin: 03/05/17 13:51 Dose: 166.7 mls/hr Sodium Chloride (Sodium Chloride 0.9%) 1,000 mls @ 100 mls/hr IV .Q10H [facility] Last Admin: 03/05/17 06:51 Dose: Not Given Heparin Sodium/Sodium Chloride (Heparin 54375 Units/250ml 1/2 Normal Saline) 25 ,000 units in 250 mls @ 10.886 mls/hr IV .[id number] PRN; Protocol; 12 UNITS/KG/HR PRN Reason: PROTOCOL Last Admin: 03/05/17 16:53 Dose: 12 units/kg/hr, 10.886 mls/hr Levetiracetam (Keppra) 500 mg PO BID [facility] Last Admin: 03/05/17 17:59 Dose: 500 mg Losartan Potassium (Cozaar) 25 mg PO DAILY [facility] Metoprolol Tartrate (Lopressor) 100 mg PO Q12 [facility] Last Admin: 03/05/17 10:24 Dose: 100 mg Ondansetron HCl (Zofran Inj) 4 mg IVP Q6 PRN PRN Reason: Nausea/Vomiting Oxycodone/Acetaminophen (Percocet 5/325 Mg Tab) 2 tab PO Q6 [facility] Stop: 03/08/17 12:01 Last Admin: 03/05/17 13:00 Dose: 2 tab Potassium Chloride (K-Dur 20 Meq Er Tab) 20 meq PO DAILY [facility] Last Admin: 03/05/17 10:19 Dose: 20 meq Tamsulosin HCl (Flomax) 0.4 mg PO DAILY [facility] Last Admin: 03/05/17 10:18 Dose: 0.4 mg - Labs Labs: 03/05/17 06:32 03/05/17 06:32 PT 19.6 SECONDS (9.7-12.2) H 03/05/17 06:32 INR 1.7 03/05/17 06:32 APTT 29 SECONDS (21-34) 02/27/17 08:00 Assessment and Plan (1) NSVT (nonsustained ventricular tachycardia) Status: Acute (2) Atrial fibrillation Status: Acute (3) HTN (hypertension), malignant Status: Acute (4) Critical lower limb ischemia Status: Acute Attending/Attestation - Attestation I have personally seen and examined this patient.: Yes I have fully participated in the care of the patient.: Yes I have reviewed all pertinent clinical information, including history, physical exam and plan: Yes Notes (Text): 03/05/17 19:04 Post bilateral AKA mildly delerious HR and BP stable resume coumadin dosing
[2017-03-05] MEDS: diltiaZEM 180 mg/24 Hours CD Cap PO SCH (10:18)
[2017-03-05] MEDS: Potassium Chloride 20 mEq ER Tab PO SCH (10:19)
--- NOTE | 2017-03-05 11:20 | CP.PCM.PN ---
Subjective - Date & Time of Evaluation Date of Evaluation: 03/05/17 Time of Evaluation: 11:20 - Subjective Subjective: Vascular Surgery Progress Note for Dr. Kaur Patient seen and examined at bedside. Patient is s/p bilateral aka POD #1. Patient is lying in bed complaining of pain in his legs. He is tolerating diet. No fever/chills, cp, sob, abd pain, n/v/d. Objective - Vital Signs/Intake and Output Vital Signs (last 24 hours): Temp Pulse Resp BP Pulse Ox 98.6 F 94 H 19 126/67 100 03/05/17 04:00 03/05/17 07:32 03/05/17 07:32 03/05/17 07:32 03/05/17 07:32 Intake and Output: 03/05/17 03/05/17 06:59 18:59 Intake Total 1025 100 Balance 1025 100 - Medications Medications: Current Medications Amiodarone HCl (Cordarone) 200 mg PO BID [facility] Last Admin: 03/05/17 10:24 Dose: 200 mg Diltiazem HCl (Cardizem Cd) 360 mg PO DAILY [facility] Last Admin: 03/05/17 10:18 Dose: 360 mg Famotidine (Pepcid) 20 mg PO DAILY [facility] Last Admin: 03/05/17 10:17 Dose: 20 mg Finasteride (Proscar) 5 mg PO DAILY [facility] Last Admin: 03/05/17 10:17 Dose: 5 mg Hydralazine HCl (Apresoline) 10 mg IVP Q6H PRN PRN Reason: Systolic Blood Pressure Hydromorphone HCl (Dilaudid) 1 mg IVP Q3 PRN PRN Reason: Pain, severe (8-10) Piperacillin Sod/Tazobactam (Sod 3.375 gm/ Sodium Chloride) 100 mls @ 200 mls/ hr IVPB Q6H [facility] Last Admin: 03/05/17 04:50 Dose: 200 mls/hr Vancomycin/Sodium Chloride (Vancocin) 1 gm in 200 mls @ 166.7 mls/hr IVPB Q24H [facility] Stop: 03/08/17 14:01 Last Admin: 03/04/17 14:32 Dose: 166.7 mls/hr Sodium Chloride (Sodium Chloride 0.9%) 1,000 mls @ 100 mls/hr IV .Q10H [facility] Last Admin: 03/05/17 06:51 Dose: Not Given Levetiracetam (Keppra) 500 mg PO BID [facility] Last Admin: 03/05/17 10:24 Dose: 500 mg Losartan Potassium (Cozaar) 25 mg PO DAILY [facility] Metoprolol Tartrate (Lopressor) 100 mg PO Q12 [facility] Last Admin: 03/05/17 10:24 Dose: 100 mg Ondansetron HCl (Zofran Inj) 4 mg IVP Q6 PRN PRN Reason: Nausea/Vomiting Oxycodone/Acetaminophen (Percocet 5/325 Mg Tab) 2 tab PO Q6 [facility] Stop: 03/08/17 12:01 Potassium Chloride (K-Dur 20 Meq Er Tab) 20 meq PO DAILY [facility] Last Admin: 03/05/17 10:19 Dose: 20 meq Tamsulosin HCl (Flomax) 0.4 mg PO DAILY [facility] Last Admin: 03/05/17 10:18 Dose: 0.4 mg - Labs Labs: 03/05/17 06:32 03/05/17 06:32 PT 19.6 SECONDS (9.7-12.2) H 03/05/17 06:32 INR 1.7 03/05/17 06:32 APTT 29 SECONDS (21-34) 02/27/17 08:00 - Constitutional Appears: No Acute Distress, Chronically Ill - Head Exam Head Exam: ATRAUMATIC, NORMOCEPHALIC - Eye Exam Eye Exam: Normal appearance - Respiratory Exam Respiratory Exam: NORMAL BREATHING PATTERN - Cardiovascular Exam Cardiovascular Exam: REGULAR RHYTHM - GI/Abdominal Exam GI & Abdominal Exam: Soft. absent: Tenderness - Extremities Exam Extremities Exam: Tenderness Additional comments: s/p bilateral aka - Neurological Exam Neurological Exam: Alert, Awake - Skin Skin Exam: Dry, Intact, Warm Assessment and Plan - Assessment and Plan (Free Text) Plan: 71 M with bacteremia is s/p bilateral aka POD #1 -Restart anticoagulation -Continue IV ABX -Urine cx (03/03) + E faecalis and Blood cx (03/02) +Bacillus -Pain control -Continue Management as per primary -Will RUBY Alfonso PGY1
[2017-03-05] MEDS: Oxycodone/Acetaminophen 5/325 mg Tab PO SCH ×3 (13:00→23:12)
[2017-03-05] MEDS: Vancomycin 1 gm/NS 200 ml 1 GM/200 ML BAG IVPB SCH (13:51)
[2017-03-05] MEDS: HYDROmorphone 0.5 mg/0.5 ml ISec IVP PRN (15:47)
[2017-03-05] MEDS: Heparin25000 units/250ml 1/2NS 25,000 UNITS/250 ML BAG IV PRN (16:53)
--- NOTE | 2017-03-05 17:59 | CP.CCUPN ---
<Haris Bruce E - Last Filed: 03/05/17 18:17> CCU Subjective - Physician Review Subjective (Free Text): Patient was seen and examined at bedside. Patient complains of b/l leg pain, which is appropriate as patient is s/p bilateral aka POD #1. Patient is tolerating diet and denies fever, chills, nausea, vomiting, chest pain and sob CCU Objective - Vital Signs / Intake & Output Vital Signs (Last 4 hours): Vital Signs Temp Pulse Resp BP Pulse Ox 03/05/17 16:00 98.9 F 81 16 97 03/05/17 15:32 79 22 112/67 100 03/05/17 15:00 87 25 H 99 03/05/17 14:31 84 25 H 126/73 99 03/05/17 14:00 82 16 100 Intake and Output (Last 8hrs): Intake & Output 03/05/17 03/05/17 03/05/17 06:59 14:59 22:59 Intake Total 700 600 200 Balance 700 600 200 Intake: Intake, IV Amount 700 600 200 Left Hand 2 700 600 200 Other: # Voids Urine, Voided 0 0 # Bowel Movements 0 0 - Physical Exam Head: Negative for: Atraumatic, Normocephalic Extroacular Muscles: Positive for: EOMI Mouth: Positive for: Moist Mucous Membranes Respiratory/Chest: Positive for: Decreased Breath Sounds Cardiovascular: Positive for: Muffled Abdomen: Positive for: Distention, Normal Bowel Sounds. Negative for: Tenderness Upper Extremity: Positive for: Edema Lower Extremity: Positive for: Other (s/p B/L AKA ) Neurological: Positive for: GCS=15 Skin: Positive for: Warm, Normal Color Psychiatric: Positive for: Alert - Medications Active Medications: Active Medications Generic Name Dose Route Start Last Admin Trade Name Freq PRN Reason Stop Dose Admin Amiodarone HCl 200 mg 03/02/17 18:00 03/05/17 10:24 Cordarone PO 200 mg BID EBONY Administration Diltiazem HCl 360 mg 02/11/17 10:00 03/05/17 10:18 Cardizem Cd PO 360 mg DAILY EBONY Administration Famotidine 20 mg 02/05/17 10:00 03/05/17 10:17 Pepcid PO 20 mg DAILY EBONY Administration Finasteride 5 mg 02/24/17 10:00 03/05/17 10:17 Proscar PO 5 mg DAILY EBONY Administration Hydralazine HCl 10 mg 02/07/17 18:07 Apresoline IVP Q6H PRN Systolic Blood Pressure Hydromorphone HCl 1 mg 03/05/17 11:09 03/05/17 15:47 Dilaudid IVP 1 mg Q3 PRN Administration Pain, severe (8-10) Piperacillin Sod/Tazobactam 100 mls @ 200 mls/hr 03/03/17 10:45 03/05/17 15: 53 Sod 3.375 gm/ Sodium Chloride IVPB 200 mls/hr Q6H EBONY Administration Vancomycin/Sodium Chloride 1 gm in 200 mls @ 166.7 mls/hr 03/03/17 14:00 13:51 Vancocin IVPB 03/08/17 14:01 166.7 mls/hr Q24H EBONY Administration Sodium Chloride 1,000 mls @ 100 mls/hr 03/03/17 14:00 03/05/17 06:51 Sodium Chloride 0.9% IV Not Given .Q10H EBONY Heparin Sodium/Sodium Chloride 25,000 units in 250 mls @ 10.886 mls/hr 16:02 03/05/17 16:53 Heparin 53948 Units/250ml 1/2 Normal Saline IV 12 units/kg/hr .[id number] PRN 10.886 mls/hr PROTOCOL Administration Protocol 12 UNITS/KG/HR Levetiracetam 500 mg 02/10/17 19:15 03/05/17 10:24 Keppra PO 500 mg BID EBONY Administration Losartan Potassium 25 mg 03/05/17 10:23 Cozaar PO DAILY EBONY Metoprolol Tartrate 100 mg 02/12/17 10:00 03/05/17 10:24 Lopressor PO 100 mg Q12 EBONY Administration Ondansetron HCl 4 mg 02/05/17 14:15 Zofran Inj IVP Q6 PRN Nausea/Vomiting Oxycodone/Acetaminophen 2 tab 03/05/17 12:00 03/05/17 13:00 Percocet 5/325 Mg Tab PO 03/08/17 12:01 2 tab Q6 EBONY Administration Potassium Chloride 20 meq 03/03/17 10:00 03/05/17 10:19 K-Dur 20 Meq Er Tab PO 20 meq DAILY EBONY Administration Tamsulosin HCl 0.4 mg 02/24/17 10:00 03/05/17 10:18 Flomax PO 0.4 mg DAILY EBONY Administration Warfarin Sodium 5 mg 03/05/17 18:00 Coumadin PO 03/05/17 18:01 1800 EBONY - Patient Studies Lab Studies: Microbiology Studies 03/02/17 14:00 Blood Culture - Preliminary Blood NO GROWTH AFTER 3 DAYS 03/03/17 12:00 Stool Culture - Final Stool NO SALMONELLA, SHIGELLA OR CAMPYLOBACTER ISOLATED. 03/03/17 11:00 Blood Culture - Preliminary Blood NO GROWTH AFTER 48 HOURS 03/03/17 11:15 Blood Culture - Preliminary Blood NO GROWTH AFTER 48 HOURS 03/02/17 20:58 Urine Culture - Final Urine,Catheterized Enterococcus Faecalis 03/03/17 Unknown Urine Culture - Final Urine,Catheterized Enterococcus Faecalis Lab Studies 03/05/17 03/05/17 03/05/17 Range/Units 11:44 08:21 06:32 WBC (4.8-10.8) K/uL RBC (4.40-5.90) Mil/uL Hgb (12.0-18.0) g/dL Hct (35.0-51.0) % MCV (80.0-94.0) fL MCH (27.0-31.0) pg MCHC (33.0-37.0) g/dL RDW (11.5-14.5) % Plt Count (130-400) K/uL MPV (7.2-11.7) fL Neut % (Auto) (50.0-75.0) % Lymph % (Auto) (20.0-40.0) % [place] % (Auto) (0.0-10.0) % Eos % (Auto) (0.0-4.0) % Baso % (Auto) (0.0-2.0) % Neut # (1.8-7.0) K/uL Lymph # (1.0-4.3) K/uL [place] # (0.0-0.8) K/uL Eos # (0.0-0.7) K/uL Baso # (0.0-0.2) K/uL PT 19.6 H (9.7-12.2) SECONDS INR 1.7 Sodium (132-148) mmol/L Potassium (3.6-5.2) mmol/L Chloride (98-107) mmol/L Carbon Dioxide (22-30) mmol/L Anion Gap (10-20) BUN (9-20) mg/dL Creatinine (0.8-1.5) MG/DL Est GFR ( Amer) Est GFR (Non-Af Amer) POC Glucose (mg/dL) 133 H 110 (65-110) mg/dL Random Glucose (75-110) mg/dL Calcium (8.6-10.4) mg/dl Phosphorus (2.5-4.5) mg/dL Magnesium (1.6-2.3) mg/dL Total Bilirubin (0.2-1.3) mg/dL AST (17-59) U/L ALT (21-72) U/L Alkaline Phosphatase (38-126) U/L Total Protein (6.3-8.3) g/dL Albumin (3.5-5.0) g/dL Globulin (2.2-3.9) gm/dL Albumin/Globulin Ratio (1.0-2.1) Blood Type Antibody Screen Antibody Identification 03/05/17 03/05/17 03/04/17 Range/Units 06:32 06:32 07:07 WBC 12.3 H (4.8-10.8) K/uL RBC 3.65 L (4.40-5.90) Mil/uL Hgb 9.8 L (12.0-18.0) g/dL Hct 28.9 L (35.0-51.0) % MCV 79.3 L (80.0-94.0) fL MCH 26.9 L (27.0-31.0) pg MCHC 33.9 (33.0-37.0) g/dL RDW 15.8 H (11.5-14.5) % Plt Count 279 (130-400) K/uL MPV 7.3 (7.2-11.7) fL Neut % (Auto) 85.0 H (50.0-75.0) % Lymph % (Auto) 11.2 L (20.0-40.0) % [place] % (Auto) 3.6 (0.0-10.0) % Eos % (Auto) 0.1 (0.0-4.0) % Baso % (Auto) 0.1 (0.0-2.0) % Neut # 10.4 H (1.8-7.0) K/uL Lymph # 1.4 (1.0-4.3) K/uL [place] # 0.4 (0.0-0.8) K/uL Eos # 0.0 (0.0-0.7) K/uL Baso # 0.0 (0.0-0.2) K/uL PT (9.7-12.2) SECONDS INR Sodium 142 (132-148) mmol/L Potassium 3.2 L (3.6-5.2) mmol/L Chloride 106 (98-107) mmol/L Carbon Dioxide 23 (22-30) mmol/L Anion Gap 16 (10-20) BUN 21 H (9-20) mg/dL Creatinine 1.1 (0.8-1.5) MG/DL Est GFR ( Amer) > 60 Est GFR (Non-Af Amer) > 60 POC Glucose (mg/dL) (65-110) mg/dL Random Glucose 97 (75-110) mg/dL Calcium 8.0 L (8.6-10.4) mg/dl Phosphorus 3.4 (2.5-4.5) mg/dL Magnesium 2.2 (1.6-2.3) mg/dL Total Bilirubin 0.9 (0.2-1.3) mg/dL AST 58 (17-59) U/L ALT 77 H D (21-72) U/L Alkaline Phosphatase 94 (38-126) U/L Total Protein 5.6 L (6.3-8.3) g/dL Albumin 2.6 L (3.5-5.0) g/dL Globulin 3.0 (2.2-3.9) gm/dL Albumin/Globulin Ratio 0.9 L (1.0-2.1) Blood Type O POSITIVE Antibody Screen Positive Antibody Identification Non Specific Antibody Laboratory Results - last 24 hr 03/04/17 03/05/17 03/05/17 07:07 06:32 06:32 WBC 12.3 H RBC 3.65 L Hgb 9.8 L Hct 28.9 L MCV 79.3 L MCH 26.9 L MCHC 33.9 RDW 15.8 H Plt Count 279 MPV 7.3 Neut % (Auto) 85.0 H Lymph % (Auto) 11.2 L [place] % (Auto) 3.6 Eos % (Auto) 0.1 Baso % (Auto) 0.1 Neut # 10.4 H Lymph # 1.4 [place] # 0.4 Eos # 0.0 Baso # 0.0 PT INR Sodium 142 Potassium 3.2 L Chloride 106 Carbon Dioxide 23 Anion Gap 16 BUN 21 H Creatinine 1.1 Est GFR ( Amer) > 60 Est GFR (Non-Af Amer) > 60 POC Glucose (mg/dL) Random Glucose 97 Calcium 8.0 L Phosphorus 3.4 Magnesium 2.2 Total Bilirubin 0.9 AST 58 ALT 77 H D Alkaline Phosphatase 94 Total Protein 5.6 L Albumin 2.6 L Globulin 3.0 Albumin/Globulin Ratio 0.9 L Blood Type O POSITIVE Antibody Screen Positive Antibody Identification Non Specific Antibody 03/05/17 03/05/17 03/05/17 06:32 08:21 11:44 WBC RBC Hgb Hct MCV MCH MCHC RDW Plt Count MPV Neut % (Auto) Lymph % (Auto) [place] % (Auto) Eos % (Auto) Baso % (Auto) Neut # Lymph # [place] # Eos # Baso # PT 19.6 H INR 1.7 Sodium Potassium Chloride Carbon Dioxide Anion Gap BUN Creatinine Est GFR ( Amer) Est GFR (Non-Af Amer) POC Glucose (mg/dL) 110 133 H Random Glucose Calcium Phosphorus Magnesium Total Bilirubin AST ALT Alkaline Phosphatase Total Protein Albumin Globulin Albumin/Globulin Ratio Blood Type Antibody Screen Antibody Identification Fingerstick Blood Sugar Results: 123 Review of Systems - Constitutional Constitutional: absent: Fever, Chills - EENT Ears: absent: Dizziness - Cardiovascular Cardiovascular: absent: Chest Pain, Chest Pain at Rest, Dyspnea - Respiratory Respiratory: absent: Dyspnea - Gastrointestinal Gastrointestinal: absent: Abdominal Pain, Diarrhea - Psychiatric Psychiatric: absent: Change in Appetite Critical Care Progress Note - Nutrition Nutrition: Nutrition Category Date Time Status Heart Healthy Diet [DIET] Diets 03/04/17 Dinner Active Assessment/Plan - Assessment and Plan (Free Text) Assessment: 71 M with bacteremia and severe PAD is s/p bilateral above the knee amputation POD #1 Plan: Neuro: Hx of seizure Dr. Hogan on board * Keppra 500mg PO BID Cardio: Hx of atrial fibrillation and HTN * Amiodarone 200mg PO BID and Cardizem 360mg PO daily * Cozaar 25mg PO daily and Hydralazine 10mg IVP Q6H PRN * Lopressor 100mg po q12h : History of BPH, urinary retention * Tamsulosin 0.4mg PO daily * Finastride 5mg PO daily ID: Code sepsis Blood culture (03/02/17): Bacillus species and repeat BC (03/03/17): No growth and urine culture (03/03/17): Entero. Faecalis * Zosyn 3.375gm IVPB Q6H ( Started on 03/03/17) * Vanco 1gm IV q24H ( Started on 03/03/17) Vascular : Hx of PAD S/p bilateral above the knee amputation Pain control: dilaudid 1mg IVP Q3 PRN and percocet 2 tabs PO q6h Prophylaxis: DVT: Heparin 25,000 units drip, SCDs contraindication GI: Pepcid 20mg PO daily <Nitesh Lynn - Last Filed: 03/05/17 18:56> CCU Objective - Vital Signs / Intake & Output Vital Signs (Last 4 hours): Vital Signs Temp Pulse Resp BP Pulse Ox 03/05/17 18:00 64 14 97 03/05/17 17:31 80 17 100/67 98 03/05/17 17:00 80 14 98 03/05/17 16:31 88 20 122/67 97 03/05/17 16:00 98.9 F 81 16 97 03/05/17 15:32 79 22 112/67 100 03/05/17 15:00 87 25 H 99 Intake and Output (Last 8hrs): Intake & Output 03/05/17 03/05/17 03/05/17 06:59 14:59 22:59 Intake Total 700 600 200 Balance 700 600 200 Intake: Intake, IV Amount 700 600 200 Left Hand 2 700 600 200 Other: # Voids Urine, Voided 0 0 # Bowel Movements 0 0 - Medications Active Medications: Active Medications Generic Name Dose Route Start Last Admin Trade Name Freq PRN Reason Stop Dose Admin Amiodarone HCl 200 mg 03/02/17 18:00 03/05/17 17:58 Cordarone PO 200 mg BID EBONY Administration Diltiazem HCl 360 mg 02/11/17 10:00 03/05/17 10:18 Cardizem Cd PO 360 mg DAILY EBONY Administration Famotidine 20 mg 02/05/17 10:00 03/05/17 10:17 Pepcid PO 20 mg DAILY EBONY Administration Finasteride 5 mg 02/24/17 10:00 03/05/17 10:17 Proscar PO 5 mg DAILY EBONY Administration Hydralazine HCl 10 mg 02/07/17 18:07 Apresoline IVP Q6H PRN Systolic Blood Pressure Hydromorphone HCl 1 mg 03/05/17 11:09 03/05/17 15:47 Dilaudid IVP 1 mg Q3 PRN Administration Pain, severe (8-10) Piperacillin Sod/Tazobactam 100 mls @ 200 mls/hr 03/03/17 10:45 03/05/17 15: 53 Sod 3.375 gm/ Sodium Chloride IVPB 200 mls/hr Q6H EBONY Administration Vancomycin/Sodium Chloride 1 gm in 200 mls @ 166.7 mls/hr 03/03/17 14:00 13:51 Vancocin IVPB 03/08/17 14:01 166.7 mls/hr Q24H EBONY Administration Sodium Chloride 1,000 mls @ 100 mls/hr 03/03/17 14:00 03/05/17 06:51 Sodium Chloride 0.9% IV Not Given .Q10H EBONY Heparin Sodium/Sodium Chloride 25,000 units in 250 mls @ 10.886 mls/hr 16:02 03/05/17 16:53 Heparin 77784 Units/250ml 1/2 Normal Saline IV 12 units/kg/hr .[id number] PRN 10.886 mls/hr PROTOCOL Administration Protocol 12 UNITS/KG/HR Levetiracetam 500 mg 02/10/17 19:15 03/05/17 17:59 Keppra PO 500 mg BID EBONY Administration Losartan Potassium 25 mg 03/05/17 10:23 Cozaar PO DAILY EBONY Metoprolol Tartrate 100 mg 02/12/17 10:00 03/05/17 10:24 Lopressor PO 100 mg Q12 EBONY Administration Ondansetron HCl 4 mg 02/05/17 14:15 Zofran Inj IVP Q6 PRN Nausea/Vomiting Oxycodone/Acetaminophen 2 tab 03/05/17 12:00 03/05/17 13:00 Percocet 5/325 Mg Tab PO 03/08/17 12:01 2 tab Q6 EBONY Administration Potassium Chloride 20 meq 03/03/17 10:00 03/05/17 10:19 K-Dur 20 Meq Er Tab PO 20 meq DAILY EBONY Administration Tamsulosin HCl 0.4 mg 02/24/17 10:00 03/05/17 10:18 Flomax PO 0.4 mg DAILY EBONY Administration - Patient Studies Lab Studies: Microbiology Studies 03/02/17 14:00 Blood Culture - Preliminary Blood NO GROWTH AFTER 3 DAYS 03/03/17 12:00 Stool Culture - Final Stool NO SALMONELLA, SHIGELLA OR CAMPYLOBACTER ISOLATED. 03/03/17 11:00 Blood Culture - Preliminary Blood NO GROWTH AFTER 48 HOURS 03/03/17 11:15 Blood Culture - Preliminary Blood NO GROWTH AFTER 48 HOURS 03/02/17 20:58 Urine Culture - Final Urine,Catheterized Enterococcus Faecalis 03/03/17 Unknown Urine Culture - Final Urine,Catheterized Enterococcus Faecalis Lab Studies 03/05/17 03/05/17 03/05/17 Range/Units 11:44 08:21 06:32 WBC (4.8-10.8) K/uL RBC (4.40-5.90) Mil/uL Hgb (12.0-18.0) g/dL Hct (35.0-51.0) % MCV (80.0-94.0) fL MCH (27.0-31.0) pg MCHC (33.0-37.0) g/dL RDW (11.5-14.5) % Plt Count (130-400) K/uL MPV (7.2-11.7) fL Neut % (Auto) (50.0-75.0) % Lymph % (Auto) (20.0-40.0) % [place] % (Auto) (0.0-10.0) % Eos % (Auto) (0.0-4.0) % Baso % (Auto) (0.0-2.0) % Neut # (1.8-7.0) K/uL Lymph # (1.0-4.3) K/uL [place] # (0.0-0.8) K/uL Eos # (0.0-0.7) K/uL Baso # (0.0-0.2) K/uL PT 19.6 H (9.7-12.2) SECONDS INR 1.7 Sodium (132-148) mmol/L Potassium (3.6-5.2) mmol/L Chloride (98-107) mmol/L Carbon Dioxide (22-30) mmol/L Anion Gap (10-20) BUN (9-20) mg/dL Creatinine (0.8-1.5) MG/DL Est GFR ( Amer) Est GFR (Non-Af Amer) POC Glucose (mg/dL) 133 H 110 (65-110) mg/dL Random Glucose (75-110) mg/dL Calcium (8.6-10.4) mg/dl Phosphorus (2.5-4.5) mg/dL Magnesium (1.6-2.3) mg/dL Total Bilirubin (0.2-1.3) mg/dL AST (17-59) U/L ALT (21-72) U/L Alkaline Phosphatase (38-126) U/L Total Protein (6.3-8.3) g/dL Albumin (3.5-5.0) g/dL Globulin (2.2-3.9) gm/dL Albumin/Globulin Ratio (1.0-2.1) Blood Type Antibody Screen Antibody Identification 03/05/17 03/05/17 03/04/17 Range/Units 06:32 06:32 07:07 WBC 12.3 H (4.8-10.8) K/uL RBC 3.65 L (4.40-5.90) Mil/uL Hgb 9.8 L (12.0-18.0) g/dL Hct 28.9 L (35.0-51.0) % MCV 79.3 L (80.0-94.0) fL MCH 26.9 L (27.0-31.0) pg MCHC 33.9 (33.0-37.0) g/dL RDW 15.8 H (11.5-14.5) % Plt Count 279 (130-400) K/uL MPV 7.3 (7.2-11.7) fL Neut % (Auto) 85.0 H (50.0-75.0) % Lymph % (Auto) 11.2 L (20.0-40.0) % [place] % (Auto) 3.6 (0.0-10.0) % Eos % (Auto) 0.1 (0.0-4.0) % Baso % (Auto) 0.1 (0.0-2.0) % Neut # 10.4 H (1.8-7.0) K/uL Lymph # 1.4 (1.0-4.3) K/uL [place] # 0.4 (0.0-0.8) K/uL Eos # 0.0 (0.0-0.7) K/uL Baso # 0.0 (0.0-0.2) K/uL PT (9.7-12.2) SECONDS INR Sodium 142 (132-148) mmol/L Potassium 3.2 L (3.6-5.2) mmol/L Chloride 106 (98-107) mmol/L Carbon Dioxide 23 (22-30) mmol/L Anion Gap 16 (10-20) BUN 21 H (9-20) mg/dL Creatinine 1.1 (0.8-1.5) MG/DL Est GFR ( Amer) > 60 Est GFR (Non-Af Amer) > 60 POC Glucose (mg/dL) (65-110) mg/dL Random Glucose 97 (75-110) mg/dL Calcium 8.0 L (8.6-10.4) mg/dl Phosphorus 3.4 (2.5-4.5) mg/dL Magnesium 2.2 (1.6-2.3) mg/dL Total Bilirubin 0.9 (0.2-1.3) mg/dL AST 58 (17-59) U/L ALT 77 H D (21-72) U/L Alkaline Phosphatase 94 (38-126) U/L Total Protein 5.6 L (6.3-8.3) g/dL Albumin 2.6 L (3.5-5.0) g/dL Globulin 3.0 (2.2-3.9) gm/dL Albumin/Globulin Ratio 0.9 L (1.0-2.1) Blood Type O POSITIVE Antibody Screen Positive Antibody Identification Non Specific Antibody Laboratory Results - last 24 hr 03/04/17 03/05/17 03/05/17 07:07 06:32 06:32 WBC 12.3 H RBC 3.65 L Hgb 9.8 L Hct 28.9 L MCV 79.3 L MCH 26.9 L MCHC 33.9 RDW 15.8 H Plt Count 279 MPV 7.3 Neut % (Auto) 85.0 H Lymph % (Auto) 11.2 L [place] % (Auto) 3.6 Eos % (Auto) 0.1 Baso % (Auto) 0.1 Neut # 10.4 H Lymph # 1.4 [place] # 0.4 Eos # 0.0 Baso # 0.0 PT INR Sodium 142 Potassium 3.2 L Chloride 106 Carbon Dioxide 23 Anion Gap 16 BUN 21 H Creatinine 1.1 Est GFR ( Amer) > 60 Est GFR (Non-Af Amer) > 60 POC Glucose (mg/dL) Random Glucose 97 Calcium 8.0 L Phosphorus 3.4 Magnesium 2.2 Total Bilirubin 0.9 AST 58 ALT 77 H D Alkaline Phosphatase 94 Total Protein 5.6 L Albumin 2.6 L Globulin 3.0 Albumin/Globulin Ratio 0.9 L Blood Type O POSITIVE Antibody Screen Positive Antibody Identification Non Specific Antibody 03/05/17 03/05/17 03/05/17 06:32 08:21 11:44 WBC RBC Hgb Hct MCV MCH MCHC RDW Plt Count MPV Neut % (Auto) Lymph % (Auto) [place] % (Auto) Eos % (Auto) Baso % (Auto) Neut # Lymph # [place] # Eos # Baso # PT 19.6 H INR 1.7 Sodium Potassium Chloride Carbon Dioxide Anion Gap BUN Creatinine Est GFR ( Amer) Est GFR (Non-Af Amer) POC Glucose (mg/dL) 110 133 H Random Glucose Calcium Phosphorus Magnesium Total Bilirubin AST ALT Alkaline Phosphatase Total Protein Albumin Globulin Albumin/Globulin Ratio Blood Type Antibody Screen Antibody Identification Critical Care Progress Note - Nutrition Nutrition: Nutrition Category Date Time Status Heart Healthy Diet [DIET] Diets 03/04/17 Dinner Active Attending/Attestation - Attestation I have personally seen and examined this patient.: Yes I have fully participated in the care of the patient.: Yes I have reviewed all pertinent clinical information: Yes Notes (Text): 03/05/17 18:54 I have seen and examined the patient. Medical records, lab studies, and imaging were reviewed by me and a management plan was formulated on multidisciplinary rounds with resident Dr. Bruce. I agree with their above documented assessment and plan. Patient is s/p bilateral AKA. pain well controlled now. Bridging patient with heparin drip, while restarting on coumadin. Critical Care Time 35 minutes. Multi-disciplinary rounds were performed with house staff, nursing, speech therapy, respiratory therapy, pharmacy and nutrition with integrated input from the primary team/attending and other consulting services. The documented time is cumulative and includes review of patient data/exams/labs/chart review and examination of the patient on rounds and throughout the day; time is exclusive of any procedures or teaching time. 03/05/17 18:55
--- NOTE | 2017-03-05 18:56 | CP.PCM.PN ---
Subjective - Date & Time of Evaluation Date of Evaluation: 03/05/17 Time of Evaluation: 10:00 - Subjective Subjective: S/P EMERGENT SURGERY CULTURES NOTED Objective - Vital Signs/Intake and Output Vital Signs (last 24 hours): Temp Pulse Resp BP Pulse Ox 98.9 F 64 14 100/67 97 03/05/17 16:00 03/05/17 18:00 03/05/17 18:00 03/05/17 17:31 03/05/17 18:00 Intake and Output: 03/05/17 03/05/17 06:59 18:59 Intake Total 1025 800 Balance 1025 800 - Medications Medications: Current Medications Amiodarone HCl (Cordarone) 200 mg PO BID [facility] Last Admin: 03/05/17 17:58 Dose: 200 mg Diltiazem HCl (Cardizem Cd) 360 mg PO DAILY [facility] Last Admin: 03/05/17 10:18 Dose: 360 mg Famotidine (Pepcid) 20 mg PO DAILY [facility] Last Admin: 03/05/17 10:17 Dose: 20 mg Finasteride (Proscar) 5 mg PO DAILY [facility] Last Admin: 03/05/17 10:17 Dose: 5 mg Hydralazine HCl (Apresoline) 10 mg IVP Q6H PRN PRN Reason: Systolic Blood Pressure Hydromorphone HCl (Dilaudid) 1 mg IVP Q3 PRN PRN Reason: Pain, severe (8-10) Last Admin: 03/05/17 15:47 Dose: 1 mg Piperacillin Sod/Tazobactam (Sod 3.375 gm/ Sodium Chloride) 100 mls @ 200 mls/ hr IVPB Q6H [facility] Last Admin: 03/05/17 15:53 Dose: 200 mls/hr Vancomycin/Sodium Chloride (Vancocin) 1 gm in 200 mls @ 166.7 mls/hr IVPB Q24H [facility] Stop: 03/08/17 14:01 Last Admin: 03/05/17 13:51 Dose: 166.7 mls/hr Sodium Chloride (Sodium Chloride 0.9%) 1,000 mls @ 100 mls/hr IV .Q10H [facility] Last Admin: 03/05/17 06:51 Dose: Not Given Heparin Sodium/Sodium Chloride (Heparin 77862 Units/250ml 1/2 Normal Saline) 25 ,000 units in 250 mls @ 10.886 mls/hr IV .[id number] PRN; Protocol; 12 UNITS/KG/HR PRN Reason: PROTOCOL Last Admin: 03/05/17 16:53 Dose: 12 units/kg/hr, 10.886 mls/hr Levetiracetam (Keppra) 500 mg PO BID [facility] Last Admin: 03/05/17 17:59 Dose: 500 mg Losartan Potassium (Cozaar) 25 mg PO DAILY [facility] Metoprolol Tartrate (Lopressor) 100 mg PO Q12 [facility] Last Admin: 03/05/17 10:24 Dose: 100 mg Ondansetron HCl (Zofran Inj) 4 mg IVP Q6 PRN PRN Reason: Nausea/Vomiting Oxycodone/Acetaminophen (Percocet 5/325 Mg Tab) 2 tab PO Q6 [facility] Stop: 03/08/17 12:01 Last Admin: 03/05/17 13:00 Dose: 2 tab Potassium Chloride (K-Dur 20 Meq Er Tab) 20 meq PO DAILY [facility] Last Admin: 03/05/17 10:19 Dose: 20 meq Tamsulosin HCl (Flomax) 0.4 mg PO DAILY [facility] Last Admin: 03/05/17 10:18 Dose: 0.4 mg - Labs Labs: 03/05/17 06:32 03/05/17 06:32 PT 19.6 SECONDS (9.7-12.2) H 03/05/17 06:32 INR 1.7 03/05/17 06:32 APTT 29 SECONDS (21-34) 02/27/17 08:00 - Constitutional Appears: Non-toxic, Chronically Ill - Head Exam Head Exam: NORMOCEPHALIC - Eye Exam Eye Exam: PERRL - ENT Exam ENT Exam: Mucous Membranes Dry - Neck Exam Neck Exam: absent: Lymphadenopathy - Respiratory Exam Respiratory Exam: Decreased Breath Sounds, Clear to Ausculation Bilateral - Cardiovascular Exam Cardiovascular Exam: REGULAR RHYTHM, +S1, +S2 - GI/Abdominal Exam GI & Abdominal Exam: Distended Assessment and Plan (1) Critical lower limb ischemia Status: Acute - Assessment and Plan (Free Text) Assessment: CONT IV ANTIBIOTICS / WOUND CARE
[2017-03-06] MEDS: Sodium Chloride 0.9% 1,000 ML IV SCH ×2 (02:21→13:04)
[2017-03-06] MEDS: Piperacillin/Tazobact 3.375 GM in Sodium Chloride 100 ML IVPB SCH ×2 (04:50→11:13)
[2017-03-06] MEDS: HYDROmorphone 0.5 mg/0.5 ml ISec IVP PRN ×2 (04:55→08:01)
[2017-03-06 06:17] LABS: BASO % 0.3 % (0.0-2.0); EOS % 0.2 % (0.0-4.0); HEMATOCRIT 27.6 % (35.0-51.0); LYMPH % 16.1 % (20.0-40.0); MEAN CELL VOLUME 81.2 fL (80.0-94.0); MEAN CORPUSCULAR HEMOGLOBIN 27.4 pg (27.0-31.0); MEAN CORPUSCULAR HGB CONC 33.7 g/dL (33.0-37.0); MONO # 0.5 K/uL (0.0-0.8); MONO % 4.2 % (0.0-10.0); RED CELL DISTRIBUTION WIDTH 16.2 % (11.5-14.5); WHITE BLOOD COUNT 12.2 K/uL (4.8-10.8)
[2017-03-06] MEDS: Oxycodone/Acetaminophen 5/325 mg Tab PO SCH ×3 (06:17→18:13)
[2017-03-06 06:34] LABS: CHLORIDE 107 mmol/L (98-107)
[2017-03-06 06:35] LABS: POTASSIUM 3.6 mmol/L (3.6-5.2); SODIUM 139 mmol/L (132-148)
[2017-03-06 06:37] LABS: ALB/GLOB RATIO 0.8 (1.0-2.1); AST/SGOT 66 U/L (17-59); BILIRUBIN,TOTAL 0.8 mg/dL (0.2-1.3); CARBON DIOXIDE 21 mmol/L (22-30); GFR AFRICAN-AMERICAN > 60; TOTAL PROTEIN 5.6 g/dL (6.3-8.3)
[2017-03-06 06:38] LABS: ALKALINE PHOSPHATASE 82 U/L (38-126); ALT/SGPT 64 U/L (21-72); BLOOD UREA NITROGEN 25 mg/dL (9-20); CALCIUM 7.6 mg/dl (8.6-10.4); GLUCOSE,RANDOM 71 mg/dL (75-110); MAGNESIUM 2.2 mg/dL (1.6-2.3); PHOSPHOROUS 3.5 mg/dL (2.5-4.5)
--- NOTE | 2017-03-06 07:57 | CP.PCM.PN ---
Subjective - Date & Time of Evaluation Date of Evaluation: 03/06/17 Time of Evaluation: 07:00 - Subjective Subjective: Vascular Surgery Progress Note for Dr. Kaur Patient seen and examined at bedside. Patient is s/p bilateral aka POD #2. Patient is lying in bed complaining of pain in his legs. He is tolerating diet. No fever/chills, cp, sob, abd pain, n/v/d. Objective - Vital Signs/Intake and Output Vital Signs (last 24 hours): Temp Pulse Resp BP Pulse Ox 97.9 F 82 12 125/74 100 03/06/17 04:00 03/06/17 07:00 03/06/17 07:00 03/06/17 06:31 03/06/17 07:00 Intake and Output: 03/06/17 03/06/17 06:59 18:59 Intake Total 1597.20 174.4 Output Total 400 Balance 1197.20 174.4 - Medications Medications: Current Medications Amiodarone HCl (Cordarone) 200 mg PO BID [facility] Last Admin: 03/05/17 17:58 Dose: 200 mg Diltiazem HCl (Cardizem Cd) 360 mg PO DAILY [facility] Last Admin: 03/05/17 10:18 Dose: 360 mg Famotidine (Pepcid) 20 mg PO DAILY [facility] Last Admin: 03/05/17 10:17 Dose: 20 mg Finasteride (Proscar) 5 mg PO DAILY [facility] Last Admin: 03/05/17 10:17 Dose: 5 mg Hydralazine HCl (Apresoline) 10 mg IVP Q6H PRN PRN Reason: Systolic Blood Pressure Hydromorphone HCl (Dilaudid) 1 mg IVP Q3 PRN PRN Reason: Pain, severe (8-10) Last Admin: 03/06/17 04:55 Dose: 1 mg Piperacillin Sod/Tazobactam (Sod 3.375 gm/ Sodium Chloride) 100 mls @ 200 mls/ hr IVPB Q6H [facility] Last Admin: 03/06/17 04:50 Dose: 200 mls/hr Vancomycin/Sodium Chloride (Vancocin) 1 gm in 200 mls @ 166.7 mls/hr IVPB Q24H [facility] Stop: 03/08/17 14:01 Last Admin: 03/05/17 13:51 Dose: 166.7 mls/hr Sodium Chloride (Sodium Chloride 0.9%) 1,000 mls @ 100 mls/hr IV .Q10H [facility] Last Admin: 03/06/17 02:21 Dose: 100 mls/hr Heparin Sodium/Sodium Chloride (Heparin 66133 Units/250ml 1/2 Normal Saline) 25 ,000 units in 250 mls @ 10.886 mls/hr IV .[id number] PRN; Protocol; 12 UNITS/KG/HR PRN Reason: PROTOCOL Last Titration: 03/06/17 01:38 Dose: 14 units/kg/hr, 12.701 mls/hr Levetiracetam (Keppra) 500 mg PO BID [facility] Last Admin: 03/05/17 17:59 Dose: 500 mg Losartan Potassium (Cozaar) 25 mg PO DAILY [facility] Metoprolol Tartrate (Lopressor) 100 mg PO Q12 [facility] Last Admin: 03/05/17 23:15 Dose: Not Given Ondansetron HCl (Zofran Inj) 4 mg IVP Q6 PRN PRN Reason: Nausea/Vomiting Oxycodone/Acetaminophen (Percocet 5/325 Mg Tab) 2 tab PO Q6 [facility] Stop: 03/08/17 12:01 Last Admin: 03/06/17 06:17 Dose: 2 tab Potassium Chloride (K-Dur 20 Meq Er Tab) 20 meq PO DAILY [facility] Last Admin: 03/05/17 10:19 Dose: 20 meq Tamsulosin HCl (Flomax) 0.4 mg PO DAILY [facility] Last Admin: 03/05/17 10:18 Dose: 0.4 mg - Labs Labs: 03/06/17 06:11 03/06/17 06:22 PT 19.6 SECONDS (9.7-12.2) H 03/05/17 06:32 INR 1.7 03/05/17 06:32 APTT 32 SECONDS (21-34) 03/05/17 23:54 - Constitutional Appears: Non-toxic, No Acute Distress, Chronically Ill - Head Exam Head Exam: ATRAUMATIC, NORMAL INSPECTION, NORMOCEPHALIC - Eye Exam Eye Exam: EOMI, Normal appearance - ENT Exam ENT Exam: Mucous Membranes Moist - Respiratory Exam Respiratory Exam: NORMAL BREATHING PATTERN. absent: Accessory Muscle Use, Respiratory Distress - Cardiovascular Exam Cardiovascular Exam: REGULAR RHYTHM - GI/Abdominal Exam GI & Abdominal Exam: Soft. absent: Tenderness - Extremities Exam Extremities Exam: Tenderness Additional comments: s/p b/l AKA - Neurological Exam Neurological Exam: Alert, Awake - Skin Skin Exam: Normal Color, Warm Assessment and Plan - Assessment and Plan (Free Text) Assessment: 71 M with bacteremia is s/p bilateral aka POD #2 Plan: -Heparin drip -Continue IV ABX -Urine cx (03/03) + E faecalis and Blood cx (03/02) +Bacillus -Pain control -Continue Management as per primary Will D/W Dr. Kaur
[2017-03-06 08:54] LABS: INR 1.6
[2017-03-06] MEDS: Potassium Chloride 20 mEq ER Tab PO SCH (09:40)
[2017-03-06] MEDS: diltiaZEM 180 mg/24 Hours CD Cap PO SCH (09:44)
--- NOTE | 2017-03-06 12:29 | CP.PCM.PN ---
<CHRISSY PEARCE - Last Filed: 03/06/17 12:26> Subjective - Date & Time of Evaluation Date of Evaluation: 03/06/17 Time of Evaluation: 07:45 - Subjective Subjective: Chrissy Pearce DO PGY1 - Cardiology Progress Note for Dr. Brown Patient seen and examined at bedside. Patient is s/p b/l AKA POD 2. Patient is awake and alert, responding to questions appropriately, though mildly delirious. He denies any CP, SOB, palpitations, dizziness, CARRE[place]. He continues to have some pain at both stumps, R>L. Objective - Vital Signs/Intake and Output Vital Signs (last 24 hours): Temp Pulse Resp BP Pulse Ox 97.9 F 82 12 125/74 100 03/06/17 04:00 03/06/17 07:00 03/06/17 07:00 03/06/17 06:31 03/06/17 07:00 Intake and Output: 03/06/17 03/06/17 06:59 18:59 Intake Total 1597.20 174.4 Output Total 400 Balance 1197.20 174.4 - Medications Medications: Current Medications Amiodarone HCl (Cordarone) 200 mg PO BID [facility] Last Admin: 03/06/17 09:40 Dose: 200 mg Diltiazem HCl (Cardizem Cd) 360 mg PO DAILY [facility] Last Admin: 03/06/17 09:44 Dose: 360 mg Famotidine (Pepcid) 20 mg PO DAILY [facility] Last Admin: 03/06/17 09:41 Dose: 20 mg Finasteride (Proscar) 5 mg PO DAILY [facility] Last Admin: 03/06/17 09:40 Dose: 5 mg Hydralazine HCl (Apresoline) 10 mg IVP Q6H PRN PRN Reason: Systolic Blood Pressure Hydromorphone HCl (Dilaudid) 1 mg IVP Q3 PRN PRN Reason: Pain, severe (8-10) Last Admin: 03/06/17 08:01 Dose: 1 mg Piperacillin Sod/Tazobactam (Sod 3.375 gm/ Sodium Chloride) 100 mls @ 200 mls/ hr IVPB Q6H [facility] Last Admin: 03/06/17 11:13 Dose: 200 mls/hr Vancomycin/Sodium Chloride (Vancocin) 1 gm in 200 mls @ 166.7 mls/hr IVPB Q24H [facility] Stop: 03/08/17 14:01 Last Admin: 03/05/17 13:51 Dose: 166.7 mls/hr Sodium Chloride (Sodium Chloride 0.9%) 1,000 mls @ 100 mls/hr IV .Q10H [facility] Last Admin: 03/06/17 02:21 Dose: 100 mls/hr Heparin Sodium/Sodium Chloride (Heparin 57807 Units/250ml 1/2 Normal Saline) 25 ,000 units in 250 mls @ 10.886 mls/hr IV .[id number] PRN; Protocol; 12 UNITS/KG/HR PRN Reason: PROTOCOL Last Titration: 03/06/17 01:38 Dose: 14 units/kg/hr, 12.701 mls/hr Levetiracetam (Keppra) 500 mg PO BID [facility] Last Admin: 03/06/17 09:40 Dose: 500 mg Losartan Potassium (Cozaar) 25 mg PO DAILY [facility] Last Admin: 03/06/17 09:41 Dose: 25 mg Metoprolol Tartrate (Lopressor) 100 mg PO Q12 [facility] Last Admin: 03/06/17 09:44 Dose: 100 mg Ondansetron HCl (Zofran Inj) 4 mg IVP Q6 PRN PRN Reason: Nausea/Vomiting Oxycodone/Acetaminophen (Percocet 5/325 Mg Tab) 2 tab PO Q6 [facility] Stop: 03/08/17 12:01 Last Admin: 03/06/17 06:17 Dose: 2 tab Potassium Chloride (K-Dur 20 Meq Er Tab) 20 meq PO DAILY [facility] Last Admin: 03/06/17 09:40 Dose: 20 meq Tamsulosin HCl (Flomax) 0.4 mg PO DAILY [facility] Last Admin: 03/06/17 09:40 Dose: 0.4 mg Warfarin Sodium (Coumadin) 5 mg PO DAILY [facility] - Labs Labs: 03/06/17 06:11 03/06/17 06:22 PT 19.1 SECONDS (9.7-12.2) H 03/06/17 08:40 INR 1.6 03/06/17 08:40 APTT 49 SECONDS (21-34) H D 03/06/17 08:40 - Constitutional Appears: Non-toxic, No Acute Distress, Confused, Chronically Ill - Head Exam Head Exam: ATRAUMATIC, NORMOCEPHALIC - Eye Exam Eye Exam: EOMI, Normal appearance - ENT Exam ENT Exam: Mucous Membranes Moist - Neck Exam Neck Exam: Full ROM, Normal Inspection - Respiratory Exam Respiratory Exam: Clear to Ausculation Bilateral. absent: Rales, Rhonchi, Wheezes - Cardiovascular Exam Cardiovascular Exam: RRR, +S1, +S2 - GI/Abdominal Exam GI & Abdominal Exam: Soft. absent: Tenderness - Extremities Exam Additional comments: b/l AKA, mild tenderness left stump, extreme tenderness R stump; patient actively gaurding right stump, keeping it elevated off bed - Neurological Exam Neurological Exam: Alert, Awake Assessment and Plan (1) NSVT (nonsustained ventricular tachycardia) Assessment & Plan: HR currently stable, with no events of VTach recorded on monitor in past 24 hrs Continue amiodarone, BB Status: Acute (2) Atrial fibrillation Assessment & Plan: Rate controlled Continue CCB, BB Previously anticoagulated on coumadin 5mg daily, INR goal 2.5; was supratherapeutic 3 days ago, but now subtherapeutic at 1.6; Coumadin was held preoperative and was given vitamin K and FFP in anticipation of the surgery After discussing with surgery, resumed coumadin yesterday, 5mg daily Heparin GTT for bridging until therapeutic on coumadin Status: Acute (3) Critical lower limb ischemia Assessment & Plan: Patient is POD 2 s/p b/l AKA Patient has history of PAD and initially presented with b/l lower limb ischemia L>R, s/p thrombectomy Anticoagulated on coumadin, as above; bridging with heparin Wound care following Status: Acute (4) HTN (hypertension), malignant Assessment & Plan: BP remains stable after medication changes yesterday Continue PO losartan, PO cardizem, PO metroprolol Continue to monitor BP and titrate as needed Status: Acute <Luis Brown - Last Filed: 03/06/17 15:45> Objective - Vital Signs/Intake and Output Vital Signs (last 24 hours): Temp Pulse Resp BP Pulse Ox 97.9 F 82 12 126/72 100 03/06/17 04:00 03/06/17 07:00 03/06/17 07:00 03/06/17 14:20 03/06/17 07:00 Intake and Output: 03/06/17 03/06/17 06:59 18:59 Intake Total 1597.20 348.2 Output Total 400 Balance 1197.20 348.2 - Medications Medications: Current Medications Amiodarone HCl (Cordarone) 200 mg PO BID [facility] Last Admin: 03/06/17 09:40 Dose: 200 mg Diltiazem HCl (Cardizem Cd) 360 mg PO DAILY [facility] Last Admin: 03/06/17 09:44 Dose: 360 mg Docusate Sodium (Colace) 100 mg PO BID [facility] Famotidine (Pepcid) 20 mg PO DAILY [facility] Last Admin: 03/06/17 09:41 Dose: 20 mg Finasteride (Proscar) 5 mg PO DAILY [facility] Last Admin: 03/06/17 09:40 Dose: 5 mg Hydromorphone HCl (Dilaudid) 1 mg IVP Q3 PRN PRN Reason: Pain, severe (8-10) Last Admin: 03/06/17 08:01 Dose: 1 mg Sodium Chloride (Sodium Chloride 0.9%) 1,000 mls @ 100 mls/hr IV .Q10H [facility] Last Admin: 03/06/17 13:04 Dose: 100 mls/hr Heparin Sodium/Sodium Chloride (Heparin 71957 Units/250ml 1/2 Normal Saline) 25 ,000 units in 250 mls @ 10.886 mls/hr IV .[id number] PRN; Protocol; 12 UNITS/KG/HR PRN Reason: PROTOCOL Last Admin: 03/06/17 13:06 Dose: 16 units/kg/hr, 14.515 mls/hr Ampicillin 2 gm/ Sodium (Chloride) 100 mls @ 50 mls/hr IVPB Q6H [facility] Last Admin: 03/06/17 14:13 Dose: 50 mls/hr Ceftriaxone Sodium 1 gm/ (Sodium Chloride) 100 mls @ 100 mls/hr IVPB DAILY@ 1500 [facility] Last Admin: 03/06/17 14:13 Dose: 100 mls/hr Levetiracetam (Keppra) 500 mg PO BID [facility] Last Admin: 03/06/17 09:40 Dose: 500 mg Losartan Potassium (Cozaar) 25 mg PO DAILY [facility] Last Admin: 03/06/17 09:41 Dose: 25 mg Metoprolol Tartrate (Lopressor) 100 mg PO Q12 [facility] Last Admin: 03/06/17 09:44 Dose: 100 mg Ondansetron HCl (Zofran Inj) 4 mg IVP Q6 PRN PRN Reason: Nausea/Vomiting Oxycodone/Acetaminophen (Percocet 5/325 Mg Tab) 2 tab PO Q6 [facility] Stop: 03/08/17 12:01 Last Admin: 03/06/17 12:59 Dose: 2 tab Saccharomyces Boulardii (Florastor) 250 mg PO BID [facility] Tamsulosin HCl (Flomax) 0.4 mg PO DAILY [facility] Last Admin: 03/06/17 09:40 Dose: 0.4 mg Warfarin Sodium (Coumadin) 5 mg PO 1800 [facility] Stop: 03/06/17 18:01 - Labs Labs: 03/06/17 06:11 03/06/17 06:22 PT 18.7 SECONDS (9.7-12.2) H 03/06/17 14:20 INR 1.6 03/06/17 14:20 APTT 54 SECONDS (21-34) H D 03/06/17 14:20 Assessment and Plan (1) NSVT (nonsustained ventricular tachycardia) Status: Acute (2) Atrial fibrillation Status: Acute (3) HTN (hypertension), malignant Status: Acute (4) Critical lower limb ischemia Status: Acute Attending/Attestation - Attestation I have personally seen and examined this patient.: Yes I have fully participated in the care of the patient.: Yes I have reviewed all pertinent clinical information, including history, physical exam and plan: Yes Notes (Text): 03/06/17 15:44 BP running low normal chlorthalidone was dced and losartan was decreased will dc losartan cont metoprolol and cardizem for now Heparin bridge to coumadin until INR therapeutic
--- NOTE | 2017-03-06 12:55 | CP.PCM.PN ---
Subjective - Date & Time of Evaluation Date of Evaluation: 03/06/17 Time of Evaluation: 09:00 - Subjective Subjective: lethargic/ arousable nad iv rx in progress Objective - Vital Signs/Intake and Output Vital Signs (last 24 hours): Temp Pulse Resp BP Pulse Ox 97.9 F 82 12 125/74 100 03/06/17 04:00 03/06/17 07:00 03/06/17 07:00 03/06/17 06:31 03/06/17 07:00 Intake and Output: 03/06/17 03/06/17 06:59 18:59 Intake Total 1597.20 174.4 Output Total 400 Balance 1197.20 174.4 - Medications Medications: Current Medications Amiodarone HCl (Cordarone) 200 mg PO BID [facility] Last Admin: 03/06/17 09:40 Dose: 200 mg Diltiazem HCl (Cardizem Cd) 360 mg PO DAILY [facility] Last Admin: 03/06/17 09:44 Dose: 360 mg Famotidine (Pepcid) 20 mg PO DAILY [facility] Last Admin: 03/06/17 09:41 Dose: 20 mg Finasteride (Proscar) 5 mg PO DAILY [facility] Last Admin: 03/06/17 09:40 Dose: 5 mg Hydralazine HCl (Apresoline) 10 mg IVP Q6H PRN PRN Reason: Systolic Blood Pressure Hydromorphone HCl (Dilaudid) 1 mg IVP Q3 PRN PRN Reason: Pain, severe (8-10) Last Admin: 03/06/17 08:01 Dose: 1 mg Piperacillin Sod/Tazobactam (Sod 3.375 gm/ Sodium Chloride) 100 mls @ 200 mls/ hr IVPB Q6H [facility] Last Admin: 03/06/17 11:13 Dose: 200 mls/hr Vancomycin/Sodium Chloride (Vancocin) 1 gm in 200 mls @ 166.7 mls/hr IVPB Q24H [facility] Stop: 03/08/17 14:01 Last Admin: 03/05/17 13:51 Dose: 166.7 mls/hr Sodium Chloride (Sodium Chloride 0.9%) 1,000 mls @ 100 mls/hr IV .Q10H [facility] Last Admin: 03/06/17 02:21 Dose: 100 mls/hr Heparin Sodium/Sodium Chloride (Heparin 17878 Units/250ml 1/2 Normal Saline) 25 ,000 units in 250 mls @ 10.886 mls/hr IV .[id number] PRN; Protocol; 12 UNITS/KG/HR PRN Reason: PROTOCOL Last Titration: 03/06/17 01:38 Dose: 14 units/kg/hr, 12.701 mls/hr Levetiracetam (Keppra) 500 mg PO BID [facility] Last Admin: 03/06/17 09:40 Dose: 500 mg Losartan Potassium (Cozaar) 25 mg PO DAILY [facility] Last Admin: 03/06/17 09:41 Dose: 25 mg Metoprolol Tartrate (Lopressor) 100 mg PO Q12 [facility] Last Admin: 03/06/17 09:44 Dose: 100 mg Ondansetron HCl (Zofran Inj) 4 mg IVP Q6 PRN PRN Reason: Nausea/Vomiting Oxycodone/Acetaminophen (Percocet 5/325 Mg Tab) 2 tab PO Q6 [facility] Stop: 03/08/17 12:01 Last Admin: 03/06/17 06:17 Dose: 2 tab Potassium Chloride (K-Dur 20 Meq Er Tab) 20 meq PO DAILY [facility] Last Admin: 03/06/17 09:40 Dose: 20 meq Tamsulosin HCl (Flomax) 0.4 mg PO DAILY [facility] Last Admin: 03/06/17 09:40 Dose: 0.4 mg Warfarin Sodium (Coumadin) 5 mg PO 1800 [facility] Stop: 03/06/17 18:01 - Labs Labs: 03/06/17 06:11 03/06/17 06:22 PT 19.1 SECONDS (9.7-12.2) H 03/06/17 08:40 INR 1.6 03/06/17 08:40 APTT 49 SECONDS (21-34) H D 03/06/17 08:40 - Constitutional Appears: Non-toxic, Chronically Ill - Head Exam Head Exam: NORMOCEPHALIC - Eye Exam Eye Exam: PERRL - ENT Exam ENT Exam: Mucous Membranes Dry - Neck Exam Neck Exam: absent: Lymphadenopathy - Respiratory Exam Respiratory Exam: Decreased Breath Sounds - Cardiovascular Exam Cardiovascular Exam: REGULAR RHYTHM - GI/Abdominal Exam GI & Abdominal Exam: Distended, Soft - Rectal Exam Rectal Exam: Deferred - Exam Exam: NORMAL INSPECTION - Extremities Exam Extremities Exam: absent: Pedal Edema Additional comments: s/p bilat amp - Back Exam Back Exam: absent: CVA tenderness (L), CVA tenderness (R) - Neurological Exam Neurological Exam: Alert, Awake, Oriented x3 - Psychiatric Exam Psychiatric exam: Depressed - Skin Skin Exam: Dry Assessment and Plan (1) Critical lower limb ischemia Status: Acute
[2017-03-06] MEDS: Heparin25000 units/250ml 1/2NS 25,000 UNITS/250 ML BAG IV PRN (13:06)
--- NOTE | 2017-03-06 13:38 | CP.PCM.PN ---
Subjective - Date & Time of Evaluation Date of Evaluation: 03/06/17 Time of Evaluation: 13:35 - Subjective Subjective: Medical Attending Note: Patient seen, examined, and case discussed with ICU. Patient is stable for transfer. Patient is awake, alert, oriented X2. Patient denies chest pain, denies palpitations, denies cough, denies abdominal pain. Patient has not had a bowel movement. Patient has [place] catherter but when nurse checked scan urinary retention about 400ml. Patient is asking for his , explained to the patient she was here last night but he had received dilaudid earlier. Objective - Vital Signs/Intake and Output Vital Signs (last 24 hours): Temp Pulse Resp BP Pulse Ox 97.9 F 82 12 125/74 100 03/06/17 04:00 03/06/17 07:00 03/06/17 07:00 03/06/17 06:31 03/06/17 07:00 Intake and Output: 03/06/17 03/06/17 06:59 18:59 Intake Total 1597.20 348.2 Output Total 400 Balance 1197.20 348.2 - Medications Medications: Current Medications Amiodarone HCl (Cordarone) 200 mg PO BID [facility] Last Admin: 03/06/17 09:40 Dose: 200 mg Diltiazem HCl (Cardizem Cd) 360 mg PO DAILY [facility] Last Admin: 03/06/17 09:44 Dose: 360 mg Famotidine (Pepcid) 20 mg PO DAILY [facility] Last Admin: 03/06/17 09:41 Dose: 20 mg Finasteride (Proscar) 5 mg PO DAILY [facility] Last Admin: 03/06/17 09:40 Dose: 5 mg Hydralazine HCl (Apresoline) 10 mg IVP Q6H PRN PRN Reason: Systolic Blood Pressure Hydromorphone HCl (Dilaudid) 1 mg IVP Q3 PRN PRN Reason: Pain, severe (8-10) Last Admin: 03/06/17 08:01 Dose: 1 mg Sodium Chloride (Sodium Chloride 0.9%) 1,000 mls @ 100 mls/hr IV .Q10H [facility] Last Admin: 03/06/17 13:04 Dose: 100 mls/hr Heparin Sodium/Sodium Chloride (Heparin 51629 Units/250ml 1/2 Normal Saline) 25 ,000 units in 250 mls @ 10.886 mls/hr IV .[id number] PRN; Protocol; 12 UNITS/KG/HR PRN Reason: PROTOCOL Last Admin: 03/06/17 13:06 Dose: 16 units/kg/hr, 14.515 mls/hr Ampicillin 2 gm/ Sodium (Chloride) 100 mls @ 50 mls/hr IVPB Q6H [facility] Ceftriaxone Sodium 1 gm/ (Sodium Chloride) 100 mls @ 100 mls/hr IVPB DAILY@ 1500 [facility] Levetiracetam (Keppra) 500 mg PO BID [facility] Last Admin: 03/06/17 09:40 Dose: 500 mg Losartan Potassium (Cozaar) 25 mg PO DAILY [facility] Last Admin: 03/06/17 09:41 Dose: 25 mg Metoprolol Tartrate (Lopressor) 100 mg PO Q12 [facility] Last Admin: 03/06/17 09:44 Dose: 100 mg Ondansetron HCl (Zofran Inj) 4 mg IVP Q6 PRN PRN Reason: Nausea/Vomiting Oxycodone/Acetaminophen (Percocet 5/325 Mg Tab) 2 tab PO Q6 [facility] Stop: 03/08/17 12:01 Last Admin: 03/06/17 12:59 Dose: 2 tab Potassium Chloride (K-Dur 20 Meq Er Tab) 20 meq PO DAILY [facility] Last Admin: 03/06/17 09:40 Dose: 20 meq Tamsulosin HCl (Flomax) 0.4 mg PO DAILY [facility] Last Admin: 03/06/17 09:40 Dose: 0.4 mg Warfarin Sodium (Coumadin) 5 mg PO 1800 [facility] Stop: 03/06/17 18:01 - Labs Labs: 03/06/17 06:11 03/06/17 06:22 PT 19.1 SECONDS (9.7-12.2) H 03/06/17 08:40 INR 1.6 03/06/17 08:40 APTT 49 SECONDS (21-34) H D 03/06/17 08:40 - Constitutional Appears: Non-toxic, No Acute Distress - Head Exam Head Exam: NORMAL INSPECTION - Eye Exam Eye Exam: EOMI - ENT Exam ENT Exam: Mucous Membranes Moist - Respiratory Exam Respiratory Exam: Clear to Ausculation Bilateral, NORMAL BREATHING PATTERN. absent: Rales, Rhonchi, Wheezes - Cardiovascular Exam Cardiovascular Exam: Irregular Rhythm, +S1, +S2 - GI/Abdominal Exam GI & Abdominal Exam: Distended, Soft, Normal Bowel Sounds. absent: Guarding, Rigid, Tenderness, Rebound - Extremities Exam Additional comments: b/l AKAs With coverings over both AKAs patient is very sensitive lifts both stumps will not allow us to look at the surgical site from earlier the admission - Neurological Exam Neurological Exam: Alert, Awake - Psychiatric Exam Psychiatric exam: Normal Affect, Normal Mood - Skin Skin Exam: Dry, Normal Color, Warm Assessment and Plan - Assessment and Plan (Free Text) Assessment: Assessment/Plan 1) Sepsis * Infectious Disease (Dr. Sarkar) on the case-->help appreciated * Vascular surgery (Dr. Kaur) on the case--->help appreciated * Code sepsis 03/03 * 03/04: C/w IV abx; Patient awaiting surgery with Dr. Kaur later today; Reverse INR with FFP X3 units prior to OR * 03/05: White count improved. * 03/06: White count stable. patient started on 2 new IV abx * IV abx: Zosyn 3.375 IVQ 6H (active since 03/03-), Vancomycin 1gram IVPB Q 24H (active since 03/03-) * Start Ampicillin 2mgram IVPB Q 6 (active since 03/06/17) and Rocephin 1 gram IVPB daily (active since 03/06/17) * s/p b/l AKA 03/04 * Cultures: * Urine Culture (03/03/17): Enterococcus Faecalis-->sensitive to Vancomycin and PCN * Blood cultures (03/03/17): No growth after 24 hours X2 * Urine culture (03/02/17): Enterococcus Faecalis * Blood culture (03/02/17): Bacillus species * Blood Culture (03/02/17): no growth after 3 days * Leg Right and Left (03/02/17): Serratia Marcescens and Enterococcus Faecalis * Blood cultures (03/07): pending 2). Severe PAD; Critical Limb Ischemia s/p b/l AKA POD 2 * Vascular surgery (Dr. Kaur) on the case-->help appreciated * Patient may restart Coumadin * pain: oxycodone/tylenol 2 tab PO Q 6H prn * Dilaudid mg IVP Q 3 PRN pain * Cardiology (Dr. Brown) on the case-->help appreciated * Family has been routinely updated regarding the progression and necrosis of the legs; and ultimately decided on 03/03/17 for surgery * s/p 02/05/17 Femoral embolectomy via groin incision, right and left with intraoperative angiograms-->bilateral femoral embolectomy by groin incision and angiography-->clot removed by the right lower extremity; no clot from the left. * s/p 03/04/17 b/l AKA * Patient started on Heparin drip-->Bridge to Coumadin * F/u INR 3). Malignant Hypertension * [employer] Dr. Brown 02/12/17 on board-->help appreciated * Blood pressure controlled * Chlorthalidone 25mg PO daily * Cozaar 100mg PO daily * Cardizem CD 360 mg 1x/day * Metoprolol 100mg PO Q bid * CT Angiogram of the Abdomen/Pelvis 02/04/17 did NOT show any evidence of Renal Artery Stenosis 4). Hx Atrial Fibrillation * Cardiology (Dr. Brown) on the case-->help appreciated * INR was reversed with 3 units of FFP and vitamin K prior to patient going for emergent surgery 03/04/17 * Start Heparin drip bridge to Coumadin * f/u INR * Cardizem CD 360 mg PO 1x/day * Metoprolol 100 mg PO Q12H * Amiodarone 200mg PO BID 5). Hx Seizure Disorder: * Neurology Consult was ordered with Dr. Onesimo Hogan to see if patient could be switched over to Keppra. * Dr. Hogan has placed patient on Keppra 500 mg PO 2x/day * Patient's prior CT scans showing encephalomacia given history of multiple strokes in the past 6). Hx Multiple CVAs: * Downtrending * Crestor is being held considering the elevated LFTs and that his Lipid Profile is currently WNL. * His Lipid profile and LFTs will need to be monitored by his PMD upon discharge. 7). Elevated LFTs: * Abdominal US: shows adenomyosis of gallbladder and other findings; will need outpatient follow-up with GI. * Downtrending 8) Enlarged prostate, Urinary Retention. * Renal US: high postvoid residual and enlarged prostate. Nephrology started on Flomax 0.4mg PO daily and Proscar 5mg PO daily * 03/05: has urinary retention today; advised patient to straight cath; Lasix 20mg IV X1 * Will need to monitor urinary output 9). Prophylaxis: * Pepcid 20mg PO daily * Zofran 4mg IVP Q 6H PRN nausea * Heparin drip-->Coumadin; f/u INR * NS 100cc.hr * Colace 100mg PO BID * Florastor 250mg PO BID
[2017-03-06 14:33] LABS: INR 1.6
[2017-03-06] MEDS: Saccharomyces Boulardi 250 mg Cap PO SCH (18:14)
[2017-03-07] MEDS: Oxycodone/Acetaminophen 5/325 mg Tab PO SCH ×3 (00:20→14:07)
[2017-03-07] MEDS: Sodium Chloride 0.9% 1,000 ML IV SCH ×4 (05:12→21:40)
[2017-03-07 06:53] LABS: INR 1.8
[2017-03-07 06:54] LABS: BASO % 0.2 % (0.0-2.0); EOS # 0.1 K/uL (0.0-0.7); EOS % 0.8 % (0.0-4.0); HEMATOCRIT 27.5 % (35.0-51.0); LYMPH # 2.6 K/uL (1.0-4.3); LYMPH % 27.4 % (20.0-40.0); MEAN CELL VOLUME 82.6 fL (80.0-94.0); MEAN CORPUSCULAR HEMOGLOBIN 28.2 pg (27.0-31.0); MEAN CORPUSCULAR HGB CONC 34.2 g/dL (33.0-37.0); MEAN PLATELET VOLUME 7.7 fL (7.2-11.7); MONO # 0.4 K/uL (0.0-0.8); MONO % 4.3 % (0.0-10.0); NRBC % 0.1 % (0.0-2.0); RED CELL DISTRIBUTION WIDTH 16.3 % (11.5-14.5); WHITE BLOOD COUNT 9.4 K/uL (4.8-10.8)
[2017-03-07 07:03] LABS: CHLORIDE 104 mmol/L (98-107)
[2017-03-07 07:04] LABS: POTASSIUM 3.5 mmol/L (3.6-5.2); SODIUM 140 mmol/L (132-148)
[2017-03-07 07:06] LABS: ALB/GLOB RATIO 0.8 (1.0-2.1); AST/SGOT 47 U/L (17-59); BILIRUBIN,TOTAL 0.6 mg/dL (0.2-1.3); BLOOD UREA NITROGEN 24 mg/dL (9-20); CARBON DIOXIDE 22 mmol/L (22-30); GFR AFRICAN-AMERICAN > 60; MAGNESIUM 2.1 mg/dL (1.6-2.3); PHOSPHOROUS 2.9 mg/dL (2.5-4.5)
[2017-03-07 07:07] LABS: ALKALINE PHOSPHATASE 86 U/L (38-126); ALT/SGPT 64 U/L (21-72); CALCIUM 7.8 mg/dl (8.6-10.4); GLUCOSE,RANDOM 87 mg/dL (75-110)
[2017-03-07] MEDS: Heparin25000 units/250ml 1/2NS 25,000 UNITS/250 ML BAG IV PRN (07:12)
--- NOTE | 2017-03-07 07:33 | CP.PCM.PN ---
Subjective - Date & Time of Evaluation Date of Evaluation: 03/07/17 Time of Evaluation: 07:23 - Subjective Subjective: Vasx Sx: Dr Kaur Pt S&E. ETHAN. Resting in ICU. Complains of pain at b/l AKA sites. Otherwise no complaints. Denies n/v/f/c/sob Objective - Vital Signs/Intake and Output Vital Signs (last 24 hours): Temp Pulse Resp BP Pulse Ox 98.5 F 63 14 127/73 97 03/07/17 00:00 03/07/17 03:00 03/07/17 03:00 03/07/17 02:32 03/07/17 03:00 Intake and Output: 03/07/17 03/07/17 06:59 18:59 Intake Total 1279.6 Output Total 200 Balance 1079.6 - Medications Medications: Current Medications Amiodarone HCl (Cordarone) 200 mg PO BID [facility] Last Admin: 03/06/17 18:14 Dose: 200 mg Diltiazem HCl (Cardizem Cd) 360 mg PO DAILY [facility] Last Admin: 03/06/17 09:44 Dose: 360 mg Docusate Sodium (Colace) 100 mg PO BID [facility] Last Admin: 03/06/17 18:14 Dose: 100 mg Famotidine (Pepcid) 20 mg PO DAILY [facility] Last Admin: 03/06/17 09:41 Dose: 20 mg Finasteride (Proscar) 5 mg PO DAILY [facility] Last Admin: 03/06/17 09:40 Dose: 5 mg Hydromorphone HCl (Dilaudid) 1 mg IVP Q3 PRN PRN Reason: Pain, severe (8-10) Last Admin: 03/06/17 08:01 Dose: 1 mg Sodium Chloride (Sodium Chloride 0.9%) 1,000 mls @ 100 mls/hr IV .Q10H [facility] Last Admin: 03/07/17 05:13 Dose: 100 mls/hr Heparin Sodium/Sodium Chloride (Heparin 62188 Units/250ml 1/2 Normal Saline) 25 ,000 units in 250 mls @ 10.886 mls/hr IV .[id number] PRN; Protocol; 12 UNITS/KG/HR PRN Reason: PROTOCOL Last Admin: 03/07/17 07:12 Dose: 16 units/kg/hr, 14.515 mls/hr Ampicillin 2 gm/ Sodium (Chloride) 100 mls @ 50 mls/hr IVPB Q6H [facility] Last Admin: 03/07/17 06:42 Dose: 50 mls/hr Ceftriaxone Sodium 1 gm/ (Sodium Chloride) 100 mls @ 100 mls/hr IVPB DAILY@ 1500 [facility] Last Admin: 03/06/17 14:13 Dose: 100 mls/hr Levetiracetam (Keppra) 500 mg PO BID [facility] Last Admin: 03/06/17 18:14 Dose: 500 mg Losartan Potassium (Cozaar) 25 mg PO DAILY [facility] Last Admin: 03/06/17 09:41 Dose: 25 mg Metoprolol Tartrate (Lopressor) 100 mg PO Q12 [facility] Last Admin: 03/06/17 22:38 Dose: 100 mg Ondansetron HCl (Zofran Inj) 4 mg IVP Q6 PRN PRN Reason: Nausea/Vomiting Oxycodone/Acetaminophen (Percocet 5/325 Mg Tab) 2 tab PO Q6 [facility] Stop: 03/08/17 12:01 Last Admin: 03/07/17 06:44 Dose: 2 tab Saccharomyces Boulardii (Florastor) 250 mg PO BID [facility] Last Admin: 03/06/17 18:14 Dose: 250 mg Tamsulosin HCl (Flomax) 0.4 mg PO DAILY [facility] Last Admin: 03/06/17 09:40 Dose: 0.4 mg - Labs Labs: 03/07/17 06:43 03/07/17 06:43 PT 20.2 SECONDS (9.7-12.2) H 03/07/17 06:43 INR 1.8 03/07/17 06:43 APTT 54 SECONDS (21-34) H D 03/06/17 14:20 - Constitutional Appears: Non-toxic, No Acute Distress - Respiratory Exam Respiratory Exam: absent: Accessory Muscle Use, Respiratory Distress - Cardiovascular Exam Cardiovascular Exam: absent: Tachycardia - Extremities Exam Additional comments: b/l AKA dressings c/d/i, extremely TTP - Neurological Exam Neurological Exam: Alert, Awake Assessment and Plan - Assessment and Plan (Free Text) Assessment: 71 M s/p bilateral AKA POD #3 Plan: -Heparin drip - bridging to coumadin -Continue IV ABX -Pain control -Continue Management as per primary Will D/W Dr. Vincent Bryson, PGY3
--- NOTE | 2017-03-07 09:15 | CP.PCM.PN ---
Objective - Vital Signs/Intake and Output Vital Signs (last 24 hours): Temp Pulse Resp BP Pulse Ox 98 F 86 13 142/80 100 03/07/17 08:00 03/07/17 08:00 03/07/17 08:00 03/07/17 08:00 03/07/17 08:00 Intake and Output: 03/07/17 03/07/17 06:59 18:59 Intake Total 1622.8 Output Total 200 Balance 1422.8 - Medications Medications: Current Medications Amiodarone HCl (Cordarone) 200 mg PO BID [facility] Last Admin: 03/06/17 18:14 Dose: 200 mg Diltiazem HCl (Cardizem Cd) 360 mg PO DAILY [facility] Last Admin: 03/06/17 09:44 Dose: 360 mg Docusate Sodium (Colace) 100 mg PO BID [facility] Last Admin: 03/06/17 18:14 Dose: 100 mg Famotidine (Pepcid) 20 mg PO DAILY [facility] Last Admin: 03/06/17 09:41 Dose: 20 mg Finasteride (Proscar) 5 mg PO DAILY [facility] Last Admin: 03/06/17 09:40 Dose: 5 mg Hydromorphone HCl (Dilaudid) 1 mg IVP Q3 PRN PRN Reason: Pain, severe (8-10) Last Admin: 03/06/17 08:01 Dose: 1 mg Sodium Chloride (Sodium Chloride 0.9%) 1,000 mls @ 100 mls/hr IV .Q10H [facility] Last Admin: 03/07/17 05:13 Dose: 100 mls/hr Heparin Sodium/Sodium Chloride (Heparin 17836 Units/250ml 1/2 Normal Saline) 25 ,000 units in 250 mls @ 10.886 mls/hr IV .[id number] PRN; Protocol; 12 UNITS/KG/HR PRN Reason: PROTOCOL Last Admin: 03/07/17 07:12 Dose: 16 units/kg/hr, 14.515 mls/hr Ampicillin 2 gm/ Sodium (Chloride) 100 mls @ 50 mls/hr IVPB Q6H [facility] Last Admin: 03/07/17 06:42 Dose: 50 mls/hr Ceftriaxone Sodium 1 gm/ (Sodium Chloride) 100 mls @ 100 mls/hr IVPB DAILY@ 1500 [facility] Last Admin: 03/06/17 14:13 Dose: 100 mls/hr Levetiracetam (Keppra) 500 mg PO BID [facility] Last Admin: 03/06/17 18:14 Dose: 500 mg Losartan Potassium (Cozaar) 25 mg PO DAILY [facility] Last Admin: 03/06/17 09:41 Dose: 25 mg Metoprolol Tartrate (Lopressor) 100 mg PO Q12 [facility] Last Admin: 03/06/17 22:38 Dose: 100 mg Ondansetron HCl (Zofran Inj) 4 mg IVP Q6 PRN PRN Reason: Nausea/Vomiting Oxycodone/Acetaminophen (Percocet 5/325 Mg Tab) 2 tab PO Q6 [facility] Stop: 03/08/17 12:01 Last Admin: 03/07/17 06:44 Dose: 2 tab Saccharomyces Boulardii (Florastor) 250 mg PO BID [facility] Last Admin: 03/06/17 18:14 Dose: 250 mg Tamsulosin HCl (Flomax) 0.4 mg PO DAILY [facility] Last Admin: 03/06/17 09:40 Dose: 0.4 mg - Labs Labs: 03/07/17 06:43 03/07/17 06:43 PT 20.2 SECONDS (9.7-12.2) H 03/07/17 06:43 INR 1.8 03/07/17 06:43 APTT 54 SECONDS (21-34) H D 03/06/17 14:20
[2017-03-07] MEDS ORDERED: Potassium Chloride 20 mEq ER Tab PO ONE (10:00)
[2017-03-07] MEDS: Saccharomyces Boulardi 250 mg Cap PO SCH (10:03)
[2017-03-07] MEDS: diltiaZEM 180 mg/24 Hours CD Cap PO SCH (11:18)
--- NOTE | 2017-03-07 13:45 | CP.PCM.PN ---
<Alexandra Skinner V - Last Filed: 03/07/17 14:54> Objective - Vital Signs/Intake and Output Vital Signs (last 24 hours): Temp Pulse Resp BP Pulse Ox 98 F 86 13 142/80 100 03/07/17 08:00 03/07/17 08:00 03/07/17 08:00 03/07/17 08:00 03/07/17 08:00 Intake and Output: 03/07/17 03/07/17 06:59 18:59 Intake Total 1622.8 Output Total 200 Balance 1422.8 - Medications Medications: Current Medications Amiodarone HCl (Cordarone) 200 mg PO BID [facility] Last Admin: 03/07/17 10:02 Dose: 200 mg Diltiazem HCl (Cardizem Cd) 360 mg PO DAILY [facility] Last Admin: 03/07/17 11:18 Dose: 360 mg Docusate Sodium (Colace) 100 mg PO BID [facility] Last Admin: 03/07/17 09:56 Dose: Not Given Famotidine (Pepcid) 20 mg PO DAILY [facility] Last Admin: 03/07/17 10:02 Dose: 20 mg Finasteride (Proscar) 5 mg PO DAILY [facility] Last Admin: 03/07/17 10:02 Dose: 5 mg Hydromorphone HCl (Dilaudid) 1 mg IVP Q3 PRN PRN Reason: Pain, severe (8-10) Last Admin: 03/06/17 08:01 Dose: 1 mg Sodium Chloride (Sodium Chloride 0.9%) 1,000 mls @ 100 mls/hr IV .Q10H [facility] Last Admin: 03/07/17 12:22 Dose: Not Given Heparin Sodium/Sodium Chloride (Heparin 27114 Units/250ml 1/2 Normal Saline) 25 ,000 units in 250 mls @ 10.886 mls/hr IV .[id number] PRN; Protocol; 12 UNITS/KG/HR PRN Reason: PROTOCOL Last Admin: 03/07/17 07:12 Dose: 16 units/kg/hr, 14.515 mls/hr Ampicillin 2 gm/ Sodium (Chloride) 100 mls @ 50 mls/hr IVPB Q6H [facility] Last Admin: 03/07/17 14:24 Dose: 50 mls/hr Ceftriaxone Sodium 1 gm/ (Sodium Chloride) 100 mls @ 100 mls/hr IVPB DAILY@ 1500 [facility] Last Admin: 03/07/17 14:25 Dose: 100 mls/hr Levetiracetam (Keppra) 500 mg PO BID [facility] Last Admin: 03/07/17 10:03 Dose: 500 mg Losartan Potassium (Cozaar) 25 mg PO DAILY [facility] Last Admin: 03/07/17 10:04 Dose: 25 mg Metoprolol Tartrate (Lopressor) 100 mg PO Q12 [facility] Last Admin: 03/07/17 10:04 Dose: 100 mg Ondansetron HCl (Zofran Inj) 4 mg IVP Q6 PRN PRN Reason: Nausea/Vomiting Oxycodone/Acetaminophen (Percocet 5/325 Mg Tab) 2 tab PO Q6 [facility] Stop: 03/08/17 12:01 Last Admin: 03/07/17 14:07 Dose: Not Given Saccharomyces Boulardii (Florastor) 250 mg PO BID [facility] Last Admin: 03/07/17 10:03 Dose: 250 mg Tamsulosin HCl (Flomax) 0.4 mg PO DAILY [facility] Last Admin: 03/07/17 10:03 Dose: 0.4 mg - Labs Labs: 03/07/17 06:43 03/07/17 06:43 PT 20.2 SECONDS (9.7-12.2) H 03/07/17 06:43 INR 1.8 03/07/17 06:43 APTT 54 SECONDS (21-34) H D 03/06/17 14:20 Attending/Attestation - Attestation I have personally seen and examined this patient.: Yes I have fully participated in the care of the patient.: Yes I have reviewed all pertinent clinical information, including history, physical exam and plan: Yes Notes (Text): Patient seen, examined, and case discussed with day-time resident. Patient seen at bedside about 2:55PM. Patient reports he is feeling better. Patient reports pain over right AKA site. Patient seen by physical therapist prior but won't allow him to work with him much. Afebrile. white count has normal. Patient is on heparin drip being bridge to Coumadin. Patient's INR is 1.8. Will give Coumadin 5mg PO once. F/u INR. Patient is currently on IV abx for wound cultures and blood culture. 1) Sepsis * Infectious Disease (Dr. Sarkar) on the case-->help appreciated * Vascular surgery (Dr. Kaur) on the case--->help appreciated * Code sepsis 03/03 * 03/04: C/w IV abx; Patient awaiting surgery with Dr. Kaur later today; Reverse INR with FFP X3 units prior to OR * 03/05: White count improved. * 03/06: White count stable. patient started on 2 new IV abx * IV abx: Zosyn 3.375 IVQ 6H (active since 03/03-), Vancomycin 1gram IVPB Q 24H (active since 03/03-) * Start Ampicillin 2mgram IVPB Q 6 (active since 03/06/17) and Rocephin 1 gram IVPB daily (active since 03/06/17) * s/p b/l AKA 03/04 * Cultures: * Urine Culture (03/03/17): Enterococcus Faecalis-->sensitive to Vancomycin and PCN * Blood cultures (03/03/17): No growth after 4 days X2 * Urine culture (03/02/17): Enterococcus Faecalis * Blood culture (03/02/17): Bacillus species * Blood Culture (03/02/17): no growth after 5 days * Leg Right and Left (03/02/17): Serratia Marcescens and Enterococcus Faecalis * Blood cultures (03/07): pending 2). 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 Kaur) on the case-->help appreciated * Patient may restart Coumadin * pain: oxycodone/tylenol 2 tab PO Q 6H prn * Dilaudid mg IVP Q 3 PRN pain * Cardiology (Dr. Brown) on the case-->help appreciated * Family has been routinely updated regarding the progression and necrosis of the legs; and ultimately decided on 03/03/17 for surgery * s/p 02/05/17 Femoral embolectomy via groin incision, right and left with intraoperative angiograms-->bilateral femoral embolectomy by groin incision and angiography-->clot removed by the right lower extremity; no clot from the left. * s/p 03/04/17 b/l AKA * Patient started on Heparin drip-->Bridge to Coumadin * F/u INR * Patient has mild surgical deshcience from 02/05/17 surgery-->mehran removed, and sutures-->Discussed with dr Kaur 03/07 3). Malignant Hypertension * Furnace Clerk Dr. Brown 02/12/17 on board-->help appreciated * Cozaar 25mg PO daily * Cardizem CD 360 mg 1x/day * Metoprolol 100mg PO Q bid * CT Angiogram of the Abdomen/Pelvis 02/04/17 did NOT show any evidence of Renal Artery Stenosis 4). Hx Atrial Fibrillation * Cardiology (Dr. Brown) on the case-->help appreciated * INR was reversed with 3 units of FFP and vitamin K prior to patient going for emergent surgery 03/04/17 * Start Heparin drip bridge to Coumadin * f/u INR * Cardizem CD 360 mg PO 1x/day * Metoprolol 100 mg PO Q12H * Amiodarone 200mg PO BID 5). Hx Seizure Disorder: * Neurology Consult was ordered with Dr. Onesimo Hogan to see if patient could be switched over to Keppra. * Dr. Hogan has placed patient on Keppra 500 mg PO 2x/day * Patient's prior CT scans showing encephalomacia given history of multiple strokes in the past 6). Hx Multiple CVAs * On Heparin drip being bridged to Coumadin * f/u INR * On seizure prophylaxis * On statin, aspirin, blood pressure to control 7). Elevated LFTs:-->normalized * Crestor is being held considering the elevated LFTs and that his Lipid Profile is currently WNL. * His Lipid profile and LFTs will need to be monitored by his PMD upon discharge. * Abdominal US: shows adenomyosis of gallbladder and other findings; will need outpatient follow-up with GI. * Downtrending 8) Enlarged prostate, Urinary Retention. * Renal US: high postvoid residual and enlarged prostate. Nephrology started on Flomax 0.4mg PO daily and Proscar 5mg PO daily * 03/05: has urinary retention today; advised patient to straight cath; Lasix 20mg IV X1 * Will need to monitor urinary output 9). Prophylaxis: * Pepcid 20mg PO daily * Zofran 4mg IVP Q 6H PRN nausea * Heparin drip-->Coumadin; f/u INR * NS 100cc.hr * Colace 100mg PO BID * Florastor 250mg PO BID * PT/OT eval * f.u case management-->will need rehabilitation <Palak Espinosa - Last Filed: 03/07/17 15:31> Subjective - Date & Time of Evaluation Date of Evaluation: 03/07/17 Time of Evaluation: 11:00 - Subjective Subjective: Medicine Note for Dr. Skinner Patient was seen and examined at bedside. Patient reports pain over B/L BKA sites. Denied fever, chills, headache, chest pain, abdominal pain, n/v/d/c, or urinary symptoms. Objective - Vital Signs/Intake and Output Vital Signs (last 24 hours): Temp Pulse Resp BP Pulse Ox 98 F 86 13 142/80 100 03/07/17 08:00 03/07/17 08:00 03/07/17 08:00 03/07/17 08:00 03/07/17 08:00 Intake and Output: 03/07/17 03/07/17 06:59 18:59 Intake Total 1622.8 Output Total 200 Balance 1422.8 - Medications Medications: Current Medications Amiodarone HCl (Cordarone) 200 mg PO BID [facility] Last Admin: 03/07/17 10:02 Dose: 200 mg Diltiazem HCl (Cardizem Cd) 360 mg PO DAILY [facility] Last Admin: 03/07/17 11:18 Dose: 360 mg Docusate Sodium (Colace) 100 mg PO BID [facility] Last Admin: 03/07/17 09:56 Dose: Not Given Famotidine (Pepcid) 20 mg PO DAILY [facility] Last Admin: 03/07/17 10:02 Dose: 20 mg Finasteride (Proscar) 5 mg PO DAILY [facility] Last Admin: 03/07/17 10:02 Dose: 5 mg Hydromorphone HCl (Dilaudid) 1 mg IVP Q3 PRN PRN Reason: Pain, severe (8-10) Last Admin: 03/06/17 08:01 Dose: 1 mg Sodium Chloride (Sodium Chloride 0.9%) 1,000 mls @ 100 mls/hr IV .Q10H [facility] Last Admin: 03/07/17 12:22 Dose: Not Given Heparin Sodium/Sodium Chloride (Heparin 33431 Units/250ml 1/2 Normal Saline) 25 ,000 units in 250 mls @ 10.886 mls/hr IV .[id number] PRN; Protocol; 12 UNITS/KG/HR PRN Reason: PROTOCOL Last Admin: 03/07/17 07:12 Dose: 16 units/kg/hr, 14.515 mls/hr Ampicillin 2 gm/ Sodium (Chloride) 100 mls @ 50 mls/hr IVPB Q6H [facility] Last Admin: 03/07/17 06:42 Dose: 50 mls/hr Ceftriaxone Sodium 1 gm/ (Sodium Chloride) 100 mls @ 100 mls/hr IVPB DAILY@ 1500 [facility] Last Admin: 03/06/17 14:13 Dose: 100 mls/hr Levetiracetam (Keppra) 500 mg PO BID [facility] Last Admin: 03/07/17 10:03 Dose: 500 mg Losartan Potassium (Cozaar) 25 mg PO DAILY [facility] Last Admin: 03/07/17 10:04 Dose: 25 mg Metoprolol Tartrate (Lopressor) 100 mg PO Q12 [facility] Last Admin: 03/07/17 10:04 Dose: 100 mg Ondansetron HCl (Zofran Inj) 4 mg IVP Q6 PRN PRN Reason: Nausea/Vomiting Oxycodone/Acetaminophen (Percocet 5/325 Mg Tab) 2 tab PO Q6 [facility] Stop: 03/08/17 12:01 Last Admin: 03/07/17 06:44 Dose: 2 tab Saccharomyces Boulardii (Florastor) 250 mg PO BID [facility] Last Admin: 03/07/17 10:03 Dose: 250 mg Tamsulosin HCl (Flomax) 0.4 mg PO DAILY [facility] Last Admin: 03/07/17 10:03 Dose: 0.4 mg - Labs Labs: 03/07/17 06:43 03/07/17 06:43 PT 20.2 SECONDS (9.7-12.2) H 03/07/17 06:43 INR 1.8 03/07/17 06:43 APTT 54 SECONDS (21-34) H D 03/06/17 14:20 - Additional Findings Additional findings: - Constitutional Appears: Non-toxic, No Acute Distress - Head Exam Head Exam: NORMAL INSPECTION - Eye Exam Eye Exam: EOMI - ENT Exam ENT Exam: Mucous Membranes Moist - Respiratory Exam Respiratory Exam: Clear to Ausculation Bilateral, NORMAL BREATHING PATTERN. absent: Rales, Rhonchi, Wheezes - Cardiovascular Exam Cardiovascular Exam: Irregular Rhythm, +S1, +S2 - GI/Abdominal Exam GI & Abdominal Exam: Distended, Soft, Normal Bowel Sounds. absent: Guarding, Rigid, Tenderness, Rebound - Extremities Exam Additional comments: b/l AKAs With coverings over both AKAs patient is very sensitive lifts both stumps will not allow us to look at the surgical site from earlier the admission - Neurological Exam Neurological Exam: Alert, Awake - Psychiatric Exam Psychiatric exam: Normal Affect, Normal Mood - Skin Skin Exam: Dry, Normal Color, Warm Assessment and Plan - Assessment and Plan (Free Text) Plan: 1) Sepsis * Infectious Disease (Dr. Sarkar) on the case-->help appreciated * Vascular surgery (Dr. Kaur) on the case--->help appreciated * Code sepsis 03/03 * 03/04: C/w IV abx; Patient awaiting surgery with Dr. Kaur later today; Reverse INR with FFP X3 units prior to OR * 03/05: White count improved. * 03/06: White count stable. patient started on 2 new IV abx * IV abx: Zosyn 3.375 IVQ 6H (active since 03/03-), Vancomycin 1gram IVPB Q 24H (active since 03/03-) * Start Ampicillin 2mgram IVPB Q 6 (active since 03/06/17) and Rocephin 1 gram IVPB daily (active since 03/06/17) * s/p b/l AKA 03/04 * Cultures: * Urine Culture (03/03/17): Enterococcus Faecalis-->sensitive to Vancomycin and PCN * Blood cultures (03/03/17): No growth after 24 hours X2 * Urine culture (03/02/17): Enterococcus Faecalis * Blood culture (03/02/17): Bacillus species * Blood Culture (03/02/17): no growth after 3 days * Leg Right and Left (03/02/17): Serratia Marcescens and Enterococcus Faecalis * Blood cultures (03/07): pending 2). Severe PAD; Critical Limb Ischemia s/p b/l AKA POD 2 * Vascular surgery (Dr. Kaur) on the case-->help appreciated * Patient may restart Coumadin * pain: oxycodone/tylenol 2 tab PO Q 6H prn * Dilaudid mg IVP Q 3 PRN pain * Cardiology (Dr. Brown) on the case-->help appreciated * Family has been routinely updated regarding the progression and necrosis of the legs; and ultimately decided on 03/03/17 for surgery * s/p 02/05/17 Femoral embolectomy via groin incision, right and left with intraoperative angiograms-->bilateral femoral embolectomy by groin incision and angiography-->clot removed by the right lower extremity; no clot from the left. * s/p 03/04/17 b/l AKA * Patient started on Heparin drip-->Bridge to Coumadin * F/u INR 3). Malignant Hypertension * Furnace Clerk Dr. Brown 02/12/17 on board-->help appreciated * Blood pressure controlled * Chlorthalidone 25mg PO daily * Cozaar 100mg PO daily * Cardizem CD 360 mg 1x/day * Metoprolol 100mg PO Q bid * CT Angiogram of the Abdomen/Pelvis 02/04/17 did NOT show any evidence of Renal Artery Stenosis 4). Hx Atrial Fibrillation * Cardiology (Dr. Brown) on the case-->help appreciated * INR was reversed with 3 units of FFP and vitamin K prior to patient going for emergent surgery 03/04/17 * Start Heparin drip bridge to Coumadin * f/u INR * Cardizem CD 360 mg PO 1x/day * Metoprolol 100 mg PO Q12H * Amiodarone 200mg PO BID 5). Hx Seizure Disorder: * Neurology Consult was ordered with Dr. Onesimo Hogan to see if patient could be switched over to Keppra. * Dr. Hogan has placed patient on Keppra 500 mg PO 2x/day * Patient's prior CT scans showing encephalomacia given history of multiple strokes in the past 6). Hx Multiple CVAs: * Downtrending * Crestor is being held considering the elevated LFTs and that his Lipid Profile is currently WNL. * His Lipid profile and LFTs will need to be monitored by his PMD upon discharge. 7). Elevated LFTs: * Abdominal US: shows adenomyosis of gallbladder and other findings; will need outpatient follow-up with GI. * Downtrending 8) Enlarged prostate, Urinary Retention. * Renal US: high postvoid residual and enlarged prostate. Nephrology started on Flomax 0.4mg PO daily and Proscar 5mg PO daily * 03/05: has urinary retention today; advised patient to straight cath; Lasix 20mg IV X1 * Will need to monitor urinary output 9). Prophylaxis: * Pepcid 20mg PO daily * Zofran 4mg IVP Q 6H PRN nausea * Heparin drip-->Coumadin; f/u INR * NS 100cc.hr * Colace 100mg PO BID * Florastor 250mg PO BID DW Francisca Deras DO, PGY-1
[2017-03-07] MEDS: Lactobacillus Acidophilus 500 MU Cap PO SCH (19:04)
[2017-03-07] MEDS: Oxycodone/Acetaminophen 5/325 mg Tab PO PRN (21:36)
[2017-03-08] MEDS: Sodium Chloride 0.9% 1,000 ML IV SCH ×3 (00:44→15:00)
[2017-03-08] MEDS: Heparin25000 units/250ml 1/2NS 25,000 UNITS/250 ML BAG IV PRN (01:46)
[2017-03-08] MEDS: HYDROmorphone 0.5 mg/0.5 ml ISec IVP PRN ×3 (05:55→18:26)
[2017-03-08 08:27] LABS: CHLORIDE 101 mmol/L (98-107)
[2017-03-08 08:28] LABS: POTASSIUM 3.8 mmol/L (3.6-5.2); SODIUM 136 mmol/L (132-148)
[2017-03-08 08:30] LABS: ALB/GLOB RATIO 0.8 (1.0-2.1); ALKALINE PHOSPHATASE 96 U/L (38-126); ALT/SGPT 52 U/L (21-72); AST/SGOT 49 U/L (17-59); BILIRUBIN,TOTAL 0.6 mg/dL (0.2-1.3); BLOOD UREA NITROGEN 12 mg/dL (9-20); CARBON DIOXIDE 23 mmol/L (22-30); GFR AFRICAN-AMERICAN > 60; GLUCOSE,RANDOM 91 mg/dL (75-110)
[2017-03-08 08:31] LABS: MAGNESIUM 1.7 mg/dL (1.6-2.3)
--- NOTE | 2017-03-08 09:07 | CP.PCM.PN ---
Subjective - Date & Time of Evaluation Date of Evaluation: 03/08/17 Time of Evaluation: 09:00 - Subjective Subjective: Medical Attending Note: Patient seen, examined. Patient is awaiting transfer to telemetry bed. Per nursing, patient did have bowel movement this morning. Patient denies headache, denies chills, denies chest pain, reports he is breathing good, would like to eat something. patient has pain over the AKA sites b/l. Per nursing patient's dressing was changed this morning by surgery. Objective - Vital Signs/Intake and Output Vital Signs (last 24 hours): Temp Pulse Resp BP Pulse Ox 98.5 F 78 19 151/70 H 98 03/08/17 04:00 03/08/17 04:00 03/08/17 04:00 03/08/17 00:00 03/08/17 04:00 Intake and Output: 03/08/17 03/08/17 06:59 18:59 Intake Total 1558.4 Output Total 2600 Balance -1041.6 - Medications Medications: Current Medications Amiodarone HCl (Cordarone) 200 mg PO BID [facility] Last Admin: 03/07/17 17:30 Dose: 200 mg Diltiazem HCl (Cardizem Cd) 360 mg PO DAILY [facility] Last Admin: 03/07/17 11:18 Dose: 360 mg Docusate Sodium (Colace) 100 mg PO BID [facility] Last Admin: 03/07/17 17:19 Dose: Not Given Famotidine (Pepcid) 20 mg PO DAILY [facility] Last Admin: 03/07/17 10:02 Dose: 20 mg Finasteride (Proscar) 5 mg PO DAILY [facility] Last Admin: 03/07/17 10:02 Dose: 5 mg Hydromorphone HCl (Dilaudid) 1 mg IVP Q3 PRN PRN Reason: Pain, severe (8-10) Last Admin: 03/08/17 05:55 Dose: 1 mg Sodium Chloride (Sodium Chloride 0.9%) 1,000 mls @ 100 mls/hr IV .Q10H [facility] Last Admin: 03/08/17 04:00 Dose: Not Given Heparin Sodium/Sodium Chloride (Heparin 10122 Units/250ml 1/2 Normal Saline) 25 ,000 units in 250 mls @ 10.886 mls/hr IV .[id number] PRN; Protocol; 12 UNITS/KG/HR PRN Reason: PROTOCOL Last Admin: 03/08/17 01:46 Dose: 16 units/kg/hr, 14.515 mls/hr Ampicillin 2 gm/ Sodium (Chloride) 100 mls @ 50 mls/hr IVPB Q6H [facility] Last Admin: 03/08/17 07:00 Dose: 50 mls/hr Ceftriaxone Sodium 1 gm/ (Sodium Chloride) 100 mls @ 100 mls/hr IVPB DAILY@ 1500 [facility] Last Admin: 03/07/17 14:25 Dose: 100 mls/hr Lactobacillus Acidophilus (Bacid Acidophilus) 1 cap PO BID [facility] Last Admin: 03/07/17 19:04 Dose: 1 cap Levetiracetam (Keppra) 500 mg PO BID [facility] Last Admin: 03/07/17 17:31 Dose: 500 mg Losartan Potassium (Cozaar) 25 mg PO DAILY [facility] Last Admin: 03/07/17 10:04 Dose: 25 mg Metoprolol Tartrate (Lopressor) 100 mg PO Q12 [facility] Last Admin: 03/07/17 22:00 Dose: 100 mg Ondansetron HCl (Zofran Inj) 4 mg IVP Q6 PRN PRN Reason: Nausea/Vomiting Oxycodone/Acetaminophen (Percocet 5/325 Mg Tab) 2 tab PO Q6 PRN PRN Reason: Pain, moderate (4-7) Stop: 03/08/17 12:01 Last Admin: 03/07/17 21:36 Dose: 2 tab Tamsulosin HCl (Flomax) 0.4 mg PO DAILY [facility] Last Admin: 03/07/17 10:03 Dose: 0.4 mg - Labs Labs: 03/07/17 06:43 03/08/17 07:38 PT 20.2 SECONDS (9.7-12.2) H 03/07/17 06:43 INR 1.8 03/07/17 06:43 APTT 57 SECONDS (21-34) H D 03/08/17 07:38 - Constitutional Appears: Non-toxic, No Acute Distress - Head Exam Head Exam: NORMAL INSPECTION - Eye Exam Eye Exam: EOMI - ENT Exam ENT Exam: Mucous Membranes Moist - Respiratory Exam Respiratory Exam: Clear to Ausculation Bilateral, NORMAL BREATHING PATTERN. absent: Rales, Rhonchi, Wheezes, Respiratory Distress - Cardiovascular Exam Cardiovascular Exam: REGULAR RHYTHM, +S1, +S2 - GI/Abdominal Exam GI & Abdominal Exam: Soft, Normal Bowel Sounds. absent: Distended, Firm, Guarding, Rigid, Tenderness, Rebound - Extremities Exam Additional comments: b/l AKA dressing b/l - Back Exam Back Exam: absent: CVA tenderness (L), CVA tenderness (R) - Neurological Exam Neurological Exam: Alert, Awake, Oriented x3 - Psychiatric Exam Psychiatric exam: Normal Affect, Normal Mood - Skin Skin Exam: Dry, Normal Color, Warm Assessment and Plan - Assessment and Plan (Free Text) Assessment: 1) Sepsis * Infectious Disease (Dr. Sarkar) on the case-->help appreciated * Vascular surgery (Dr. Kaur) on the case--->help appreciated * Code sepsis 03/03 * 03/04: C/w IV abx; Patient awaiting surgery with Dr. Kaur later today; Reverse INR with FFP X3 units prior to OR * 03/05: White count improved. * 03/06: White count stable. patient started on 2 new IV abx * IV abx: Zosyn 3.375 IVQ 6H (active since 03/03-), Vancomycin 1gram IVPB Q 24H (active since 03/03-) * Start Ampicillin 2mgram IVPB Q 6 (active since 03/06/17) and Rocephin 1 gram IVPB daily (active since 03/06/17) * s/p b/l AKA 03/04 * Cultures: * Urine Culture (03/03/17): Enterococcus Faecalis-->sensitive to Vancomycin and PCN * Blood cultures (03/03/17): No growth after 4 days X2 * Urine culture (03/02/17): Enterococcus Faecalis * Blood culture (03/02/17): Bacillus species * Blood Culture (03/02/17): no growth after 5 days * Leg Right and Left (03/02/17): Serratia Marcescens and Enterococcus Faecalis * Blood cultures (03/07): no growth after 24 hours 2). 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 Kaur) on the case-->help appreciated * Patient may restart Coumadin * pain: oxycodone/tylenol 2 tab PO Q 6H prn * Dilaudid mg IVP Q 3 PRN pain * Cardiology (Dr. Brown) on the case-->help appreciated * Family has been routinely updated regarding the progression and necrosis of the legs; and ultimately decided on 03/03/17 for surgery * s/p 02/05/17 Femoral embolectomy via groin incision, right and left with intraoperative angiograms-->bilateral femoral embolectomy by groin incision and angiography-->clot removed by the right lower extremity; no clot from the left. * s/p 03/04/17 b/l AKA * Patient started on Heparin drip-->Bridge to Coumadin * F/u INR * Patient has mild surgical deshcience from 02/05/17 surgery-->mehran removed, and sutures-->Discussed with dr Kaur 03/07 3). Malignant Hypertension * Hand Washer Dr. Brown 02/12/17 on board-->help appreciated * Cozaar 25mg PO daily * Cardizem CD 360 mg 1x/day * Metoprolol 100mg PO Q bid * CT Angiogram of the Abdomen/Pelvis 02/04/17 did NOT show any evidence of Renal Artery Stenosis 4). Hx Atrial Fibrillation * Cardiology (Dr. Brown) on the case-->help appreciated * INR was reversed with 3 units of FFP and vitamin K prior to patient going for emergent surgery 03/04/17 * Start Heparin drip bridge to Coumadin * f/u INR * Cardizem CD 360 mg PO 1x/day * Metoprolol 100 mg PO Q12H * Amiodarone 200mg PO BID 5). Hx Seizure Disorder: * Neurology Consult was ordered with Dr. Onesimo Hogan to see if patient could be switched over to Keppra. * Dr. Hogan has placed patient on Keppra 500 mg PO 2x/day * Patient's prior CT scans showing encephalomacia given history of multiple strokes in the past 6). Hx Multiple CVAs * On Heparin drip being bridged to Coumadin * f/u INR * On seizure prophylaxis * On statin, aspirin, blood pressure to control 7). Elevated LFTs:-->normalized * Crestor is being held considering the elevated LFTs and that his Lipid Profile is currently WNL. * His Lipid profile and LFTs will need to be monitored by his PMD upon discharge. * Abdominal US: shows adenomyosis of gallbladder and other findings; will need outpatient follow-up with GI. * Downtrending 8) Enlarged prostate, Urinary Retention. * Renal US: high postvoid residual and enlarged prostate. Nephrology started on Flomax 0.4mg PO daily and Proscar 5mg PO daily * 03/05: has urinary retention today; advised patient to straight cath; Lasix 20mg IV X1 * Will need to monitor urinary output 9). Prophylaxis: * Pepcid 20mg PO daily * Zofran 4mg IVP Q 6H PRN nausea * Heparin drip-->Coumadin; f/u INR * NS 100cc.hr * Colace 100mg PO BID * Florastor 250mg PO BID * PT/OT eval * f.u case management-->will need rehabilitation
[2017-03-08] MEDS: diltiaZEM 180 mg/24 Hours CD Cap PO SCH (10:45)
[2017-03-08] MEDS: Oxycodone/Acetaminophen 5/325 mg Tab PO PRN (11:11)
[2017-03-08] MEDS: Lactobacillus Acidophilus 500 MU Cap PO SCH ×2 (11:12→18:19)
--- NOTE | 2017-03-08 13:31 | CP.PCM.PN ---
Subjective - Date & Time of Evaluation Date of Evaluation: 03/08/17 Time of Evaluation: 08:40 - Subjective Subjective: Vascular Surgery Pt S&E, NAEO. Pt c/o pain at amputation sites. dressings pulled out of place. + BM Objective - Vital Signs/Intake and Output Vital Signs (last 24 hours): Temp Pulse Resp BP Pulse Ox 99 F 80 15 135/75 100 03/08/17 08:00 03/08/17 08:00 03/08/17 08:00 03/08/17 08:00 03/08/17 08:00 Intake and Output: 03/08/17 03/08/17 06:59 18:59 Intake Total 1558.4 Output Total 2600 Balance -1041.6 - Medications Medications: Current Medications Amiodarone HCl (Cordarone) 200 mg PO BID [facility] Last Admin: 03/08/17 11:10 Dose: 200 mg Diltiazem HCl (Cardizem Cd) 360 mg PO DAILY [facility] Last Admin: 03/08/17 10:45 Dose: 360 mg Docusate Sodium (Colace) 100 mg PO BID [facility] Last Admin: 03/08/17 11:12 Dose: 100 mg Famotidine (Pepcid) 20 mg PO DAILY [facility] Last Admin: 03/08/17 11:09 Dose: 20 mg Finasteride (Proscar) 5 mg PO DAILY [facility] Last Admin: 03/08/17 11:12 Dose: 5 mg Hydromorphone HCl (Dilaudid) 1 mg IVP Q3 PRN PRN Reason: Pain, severe (8-10) Last Admin: 03/08/17 11:43 Dose: 1 mg Sodium Chloride (Sodium Chloride 0.9%) 1,000 mls @ 100 mls/hr IV .Q10H [facility] Last Admin: 03/08/17 04:00 Dose: Not Given Heparin Sodium/Sodium Chloride (Heparin 84686 Units/250ml 1/2 Normal Saline) 25 ,000 units in 250 mls @ 10.886 mls/hr IV .[id number] PRN; Protocol; 12 UNITS/KG/HR PRN Reason: PROTOCOL Last Admin: 03/08/17 01:46 Dose: 16 units/kg/hr, 14.515 mls/hr Ampicillin 2 gm/ Sodium (Chloride) 100 mls @ 50 mls/hr IVPB Q6H [facility] Last Admin: 03/08/17 07:00 Dose: 50 mls/hr Ceftriaxone Sodium 1 gm/ (Sodium Chloride) 100 mls @ 100 mls/hr IVPB DAILY@ 1500 [facility] Last Admin: 03/07/17 14:25 Dose: 100 mls/hr Lactobacillus Acidophilus (Bacid Acidophilus) 1 cap PO BID [facility] Last Admin: 03/08/17 11:12 Dose: 1 cap Levetiracetam (Keppra) 500 mg PO BID [facility] Last Admin: 03/08/17 11:12 Dose: 500 mg Losartan Potassium (Cozaar) 25 mg PO DAILY [facility] Last Admin: 03/08/17 11:12 Dose: 25 mg Metoprolol Tartrate (Lopressor) 100 mg PO Q12 [facility] Last Admin: 03/08/17 11:12 Dose: 100 mg Ondansetron HCl (Zofran Inj) 4 mg IVP Q6 PRN PRN Reason: Nausea/Vomiting Tamsulosin HCl (Flomax) 0.4 mg PO DAILY [facility] Last Admin: 03/08/17 11:13 Dose: 0.4 mg - Labs Labs: 03/07/17 06:43 03/08/17 07:38 PT 20.2 SECONDS (9.7-12.2) H 03/07/17 06:43 INR 1.8 03/07/17 06:43 APTT 57 SECONDS (21-34) H D 03/08/17 07:38 - Constitutional Appears: Non-toxic, No Acute Distress - Head Exam Head Exam: ATRAUMATIC, NORMOCEPHALIC - Eye Exam Eye Exam: EOMI. absent: Scleral icterus - Respiratory Exam Respiratory Exam: NORMAL BREATHING PATTERN. absent: Respiratory Distress - GI/Abdominal Exam GI & Abdominal Exam: Soft. absent: Distended, Tenderness - Extremities Exam Additional comments: B/L AKA, dressings out of place, Incisions healing well - Neurological Exam Neurological Exam: Alert, Awake - Skin Skin Exam: Dry, Warm Assessment and Plan - Assessment and Plan (Free Text) Assessment: 71 M s/p bilateral AKA POD#4 Plan: -Bridging to coumadin -Continue IV ABX -Pain control -Dressings changed this AM since they were out of place. D/W Dr. Vincent Douglas PGY4
--- NOTE | 2017-03-08 14:35 | CP.PCM.PN ---
Subjective - Date & Time of Evaluation Date of Evaluation: 03/08/17 Time of Evaluation: 08:00 - Subjective Subjective: B/L AKA, dressings out of place, Incisions healing well Objective - Vital Signs/Intake and Output Vital Signs (last 24 hours): Temp Pulse Resp BP Pulse Ox 98 F 80 15 135/75 100 03/08/17 12:00 03/08/17 08:00 03/08/17 08:00 03/08/17 08:00 03/08/17 08:00 Intake and Output: 03/08/17 03/08/17 06:59 18:59 Intake Total 1558.4 229 Output Total 2600 400 Balance -1041.6 -171 - Medications Medications: Current Medications Amiodarone HCl (Cordarone) 200 mg PO BID [facility] Last Admin: 03/08/17 11:10 Dose: 200 mg Diltiazem HCl (Cardizem Cd) 360 mg PO DAILY [facility] Last Admin: 03/08/17 10:45 Dose: 360 mg Docusate Sodium (Colace) 100 mg PO BID [facility] Last Admin: 03/08/17 11:12 Dose: 100 mg Famotidine (Pepcid) 20 mg PO DAILY [facility] Last Admin: 03/08/17 11:09 Dose: 20 mg Finasteride (Proscar) 5 mg PO DAILY [facility] Last Admin: 03/08/17 11:12 Dose: 5 mg Hydromorphone HCl (Dilaudid) 1 mg IVP Q3 PRN PRN Reason: Pain, severe (8-10) Last Admin: 03/08/17 11:43 Dose: 1 mg Sodium Chloride (Sodium Chloride 0.9%) 1,000 mls @ 100 mls/hr IV .Q10H [facility] Last Admin: 03/08/17 04:00 Dose: Not Given Heparin Sodium/Sodium Chloride (Heparin 95555 Units/250ml 1/2 Normal Saline) 25 ,000 units in 250 mls @ 10.886 mls/hr IV .[id number] PRN; Protocol; 12 UNITS/KG/HR PRN Reason: PROTOCOL Last Admin: 03/08/17 01:46 Dose: 16 units/kg/hr, 14.515 mls/hr Ampicillin 2 gm/ Sodium (Chloride) 100 mls @ 50 mls/hr IVPB Q6H [facility] Last Admin: 03/08/17 14:00 Dose: 50 mls/hr Ceftriaxone Sodium 1 gm/ (Sodium Chloride) 100 mls @ 100 mls/hr IVPB DAILY@ 1500 [facility] Last Admin: 03/07/17 14:25 Dose: 100 mls/hr Lactobacillus Acidophilus (Bacid Acidophilus) 1 cap PO BID [facility] Last Admin: 03/08/17 11:12 Dose: 1 cap Levetiracetam (Keppra) 500 mg PO BID [facility] Last Admin: 03/08/17 11:12 Dose: 500 mg Losartan Potassium (Cozaar) 25 mg PO DAILY [facility] Last Admin: 03/08/17 11:12 Dose: 25 mg Metoprolol Tartrate (Lopressor) 100 mg PO Q12 [facility] Last Admin: 03/08/17 11:12 Dose: 100 mg Ondansetron HCl (Zofran Inj) 4 mg IVP Q6 PRN PRN Reason: Nausea/Vomiting Tamsulosin HCl (Flomax) 0.4 mg PO DAILY [facility] Last Admin: 03/08/17 11:13 Dose: 0.4 mg - Labs Labs: 03/07/17 06:43 03/08/17 07:38 PT 20.2 SECONDS (9.7-12.2) H 03/07/17 06:43 INR 1.8 03/07/17 06:43 APTT 57 SECONDS (21-34) H D 03/08/17 07:38 - Constitutional Appears: Non-toxic, Chronically Ill - Head Exam Head Exam: NORMOCEPHALIC - Eye Exam Eye Exam: PERRL - ENT Exam ENT Exam: Mucous Membranes Dry, Normal External Ear Exam - Neck Exam Neck Exam: absent: Lymphadenopathy - Respiratory Exam Respiratory Exam: Decreased Breath Sounds, Clear to Ausculation Bilateral - Cardiovascular Exam Cardiovascular Exam: REGULAR RHYTHM, +S1, +S2 - GI/Abdominal Exam GI & Abdominal Exam: Distended. absent: Tenderness - Rectal Exam Rectal Exam: Deferred - Exam Exam: NORMAL INSPECTION - Extremities Exam Extremities Exam: absent: Pedal Edema - Back Exam Back Exam: absent: CVA tenderness (L), CVA tenderness (R) - Neurological Exam Neurological Exam: Alert, Awake, Oriented x3 - Psychiatric Exam Psychiatric exam: Depressed - Skin Skin Exam: Dry Additional comments: B/L AKA, dressings out of place, Incisions healing well Assessment and Plan (1) Critical lower limb ischemia Status: Acute - Assessment and Plan (Free Text) Assessment: cont iv antibiotics for 7 days post op
[2017-03-08 16:52] LABS: INR 1.9
[2017-03-09] MEDS: HYDROmorphone 0.5 mg/0.5 ml ISec IVP PRN ×2 (01:46→10:00)
--- NOTE | 2017-03-09 08:14 | CP.PCM.PN ---
Subjective - Date & Time of Evaluation Date of Evaluation: 03/09/17 Time of Evaluation: 07:00 - Subjective Subjective: Vascular Surgery Dr. Kaur Pt S&E @bedside. Pt Armenian-speaking, altered @baseline. pain controlled. Objective - Vital Signs/Intake and Output Vital Signs (last 24 hours): Temp Pulse Resp BP Pulse Ox 98.9 F 100 H 20 139/77 98 03/09/17 02:20 03/09/17 02:20 03/09/17 02:20 03/09/17 02:20 03/09/17 02:20 Intake and Output: 03/09/17 03/09/17 06:59 18:59 Intake Total 1386 Output Total 500 Balance 886 - Medications Medications: Current Medications Amiodarone HCl (Cordarone) 200 mg PO BID [facility] Last Admin: 03/08/17 18:19 Dose: 200 mg Diltiazem HCl (Cardizem Cd) 360 mg PO DAILY [facility] Last Admin: 03/08/17 10:45 Dose: 360 mg Docusate Sodium (Colace) 100 mg PO BID [facility] Last Admin: 03/08/17 18:19 Dose: 100 mg Famotidine (Pepcid) 20 mg PO DAILY [facility] Last Admin: 03/08/17 11:09 Dose: 20 mg Finasteride (Proscar) 5 mg PO DAILY [facility] Last Admin: 03/08/17 11:12 Dose: 5 mg Hydromorphone HCl (Dilaudid) 1 mg IVP Q3 PRN PRN Reason: Pain, severe (8-10) Last Admin: 03/09/17 01:46 Dose: 1 mg Ampicillin 2 gm/ Sodium (Chloride) 100 mls @ 50 mls/hr IVPB Q6H [facility] Last Admin: 03/09/17 06:00 Dose: 50 mls/hr Ceftriaxone Sodium 1 gm/ (Sodium Chloride) 100 mls @ 100 mls/hr IVPB DAILY@ 1500 [facility] Last Admin: 03/08/17 18:46 Dose: 100 mls/hr Lactobacillus Acidophilus (Bacid Acidophilus) 1 cap PO BID [facility] Last Admin: 03/08/17 18:19 Dose: 1 cap Levetiracetam (Keppra) 500 mg PO BID [facility] Last Admin: 03/08/17 18:19 Dose: 500 mg Losartan Potassium (Cozaar) 25 mg PO DAILY [facility] Last Admin: 03/08/17 11:12 Dose: 25 mg Metoprolol Tartrate (Lopressor) 100 mg PO Q12 [facility] Last Admin: 03/08/17 21:58 Dose: Not Given Ondansetron HCl (Zofran Inj) 4 mg IVP Q6 PRN PRN Reason: Nausea/Vomiting Tamsulosin HCl (Flomax) 0.4 mg PO DAILY [facility] Last Admin: 03/08/17 11:13 Dose: 0.4 mg - Labs Labs: 03/07/17 06:43 03/08/17 07:38 PT 22.2 SECONDS (9.7-12.2) H 03/08/17 16:41 INR 1.9 03/08/17 16:41 APTT 57 SECONDS (21-34) H D 03/08/17 07:38 - Constitutional Appears: Non-toxic, No Acute Distress - Head Exam Head Exam: NORMAL INSPECTION - Eye Exam Eye Exam: Normal appearance - ENT Exam ENT Exam: Mucous Membranes Moist - Respiratory Exam Respiratory Exam: NORMAL BREATHING PATTERN. absent: Accessory Muscle Use, Respiratory Distress - GI/Abdominal Exam GI & Abdominal Exam: Soft. absent: Distended, Tenderness - Extremities Exam Additional comments: B/L AKA, dressings c/d/i - Neurological Exam Neurological Exam: Alert, Awake - Psychiatric Exam Psychiatric exam: Agitated - Skin Skin Exam: Dry, Normal Color, Warm Assessment and Plan - Assessment and Plan (Free Text) Assessment: 71 y/o M POD#5 s/p B/L AKA - bridge to coumadin - monitor PTT/INR - cont Abx per ID - cont pain management Pt seen and discussed w/ Dr. Vincent Olvera DO PGY2
[2017-03-09] MEDS ORDERED: Heparin25000 units/250ml 1/2NS 25,000 UNITS/250 ML BAG IV PRN (08:24)
--- NOTE | 2017-03-09 08:56 | CP.PCM.PN ---
<Palak Espinosa - Last Filed: 03/09/17 15:48> Subjective - Date & Time of Evaluation Date of Evaluation: 03/09/17 Time of Evaluation: 08:00 - Subjective Subjective: Medicine Note for Dr. Yara Vines Patient was seen and examined at bedside. Patient is not oriented to person, place, or time. Spoke with Daughter at bedside. He is unaware of his B/L AKA. ROS unattainable. Objective - Vital Signs/Intake and Output Vital Signs (last 24 hours): Temp Pulse Resp BP Pulse Ox 98.3 F 99 H 20 138/84 96 03/09/17 08:43 03/09/17 08:43 03/09/17 08:43 03/09/17 08:43 03/09/17 08:43 Intake and Output: 03/09/17 03/09/17 06:59 18:59 Intake Total 1386 Output Total 500 Balance 886 - Medications Medications: Current Medications Amiodarone HCl (Cordarone) 200 mg PO BID [facility] Last Admin: 03/08/17 18:19 Dose: 200 mg Diltiazem HCl (Cardizem Cd) 360 mg PO DAILY [facility] Last Admin: 03/08/17 10:45 Dose: 360 mg Docusate Sodium (Colace) 100 mg PO BID [facility] Last Admin: 03/08/17 18:19 Dose: 100 mg Famotidine (Pepcid) 20 mg PO DAILY [facility] Last Admin: 03/08/17 11:09 Dose: 20 mg Finasteride (Proscar) 5 mg PO DAILY [facility] Last Admin: 03/08/17 11:12 Dose: 5 mg Hydromorphone HCl (Dilaudid) 1 mg IVP Q3 PRN PRN Reason: Pain, severe (8-10) Last Admin: 03/09/17 01:46 Dose: 1 mg Ampicillin 2 gm/ Sodium (Chloride) 100 mls @ 50 mls/hr IVPB Q6H [facility] Last Admin: 03/09/17 06:00 Dose: 50 mls/hr Ceftriaxone Sodium 1 gm/ (Sodium Chloride) 100 mls @ 100 mls/hr IVPB DAILY@ 1500 [facility] Last Admin: 03/08/17 18:46 Dose: 100 mls/hr Heparin Sodium/Sodium Chloride (Heparin 23636 Units/250ml 1/2 Normal Saline) 25 ,000 units in 250 mls @ 9.199 mls/hr IV .Q24H PRN; Protocol; 12 UNITS/KG/HR PRN Reason: PROTOCOL Lactobacillus Acidophilus (Bacid Acidophilus) 1 cap PO BID [facility] Last Admin: 03/08/17 18:19 Dose: 1 cap Levetiracetam (Keppra) 500 mg PO BID [facility] Last Admin: 03/08/17 18:19 Dose: 500 mg Losartan Potassium (Cozaar) 25 mg PO DAILY [facility] Last Admin: 03/08/17 11:12 Dose: 25 mg Metoprolol Tartrate (Lopressor) 100 mg PO Q12 [facility] Last Admin: 03/08/17 21:58 Dose: Not Given Ondansetron HCl (Zofran Inj) 4 mg IVP Q6 PRN PRN Reason: Nausea/Vomiting Tamsulosin HCl (Flomax) 0.4 mg PO DAILY [facility] Last Admin: 03/08/17 11:13 Dose: 0.4 mg Warfarin Sodium (Coumadin) 5 mg PO 1800 [facility] Stop: 03/09/17 18:01 - Labs Labs: 03/07/17 06:43 03/08/17 07:38 PT 22.2 SECONDS (9.7-12.2) H 03/08/17 16:41 INR 1.9 03/08/17 16:41 APTT 57 SECONDS (21-34) H D 03/08/17 07:38 - Additional Findings Additional findings: - Constitutional Appears: Non-toxic, No Acute Distress - Head Exam Head Exam: NORMAL INSPECTION - Eye Exam Eye Exam: EOMI - ENT Exam ENT Exam: Mucous Membranes Moist - Respiratory Exam Respiratory Exam: Clear to Ausculation Bilateral, NORMAL BREATHING PATTERN. absent: Rales, Rhonchi, Wheezes, Respiratory Distress - Cardiovascular Exam Cardiovascular Exam: REGULAR RHYTHM, +S1, +S2 - GI/Abdominal Exam GI & Abdominal Exam: Soft, Normal Bowel Sounds. 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 Kaur) on the case-->help appreciated * Patient may restart Coumadin * pain: oxycodone/tylenol 2 tab PO Q 6H prn * Dilaudid mg IVP Q 3 PRN pain * Cardiology (Dr. Brown) on the case-->help appreciated * Family has been routinely updated regarding the progression and necrosis of the legs; and ultimately decided on 03/03/17 for surgery * s/p 02/05/17 Femoral embolectomy via groin incision, right and left with intraoperative angiograms-->bilateral femoral embolectomy by groin incision and angiography-->clot removed by the right lower extremity; no clot from the left. * s/p 03/04/17 b/l AKA * Bridged to Coumadin target INR 2.5 ( this goal was prior to B/L AKA) * INR: 1.9 today * Continue to monitor INR with goal between 2-3 * Patient has mild surgical deshcience from 02/05/17 surgery--> mehran removed, and sutures--> Discussed with Dr Kaur 03/07 Hx Atrial Fibrillation * Cardiology (Dr. Brown) on the case-->help appreciated * INR was reversed with 3 units of FFP and vitamin K prior to patient going for emergent surgery 03/04/17 * Currently on Coumadin 5mg PO QHS - MONITOR INR * Cardizem CD 360 mg PO 1x/day * Metoprolol 100 mg PO Q12H * Amiodarone 200mg PO BID Hx Seizure Disorder * Neurology Consult was ordered with Dr. Onesimo Hogan to see if patient could be switched over to Keppra. * Dr. Hogan has placed patient on Keppra 500 mg PO 2x/day * Patient's prior CT scans showing encephalomacia given history of multiple strokes in the past Hx Multiple CVAs * On Heparin drip being bridged to Coumadin * On seizure prophylaxis * On statin, aspirin, blood pressure to control Enlarged prostate, Urinary Retention * Renal US: high postvoid residual and enlarged prostate. Nephrology started on Flomax 0.4mg PO daily and Proscar 5mg PO daily * 03/05: has urinary retention today; advised patient to straight cath; Lasix 20mg IV X1 * Will need to monitor urinary output Sepsis --> --> resolved * Infectious Disease (Dr. Sarkar) on the case-->help appreciated * Vascular surgery (Dr. Kaur) on the case--->help appreciated * Code sepsis 03/03 * 03/04: C/w IV abx; Patient awaiting surgery with Dr. Kaur later today; Reverse INR with FFP X3 units prior to OR * 03/05: White count improved. * 03/06: White count stable. patient started on 2 new IV abx * IV abx: Zosyn 3.375 IVQ 6H (active since 03/03-), Vancomycin 1gram IVPB Q 24H (active since 03/03-) * Start Ampicillin 2mgram IVPB Q 6 (active since 03/06/17) and Rocephin 1 gram IVPB daily (active since 03/06/17) ---> monitor LFTs * s/p b/l AKA 03/04 * Cultures: * Urine Culture (03/03/17): Enterococcus Faecalis-->sensitive to Vancomycin and PCN * Blood cultures (03/03/17): No growth after 4 days X2 * Urine culture (03/02/17): Enterococcus Faecalis * Blood culture (03/02/17): Bacillus species * Blood Culture (03/02/17): no growth after 5 days * Leg Right and Left (03/02/17): Serratia Marcescens and Enterococcus Faecalis * Blood cultures (03/07): no growth after 24 hours Malignant Hypertension --> resolved * Body Rolling Machine Tender Dr. Brown 02/12/17 on board-->help appreciated * ASA 81mg PO daily * Cozaar 25mg PO daily * Cardizem CD 360 mg 1x/day * Metoprolol 100mg PO Q bid * CT Angiogram of the Abdomen/Pelvis 02/04/17 did NOT show any evidence of Renal Artery Stenosis Elevated LFTs-->normalized * Crestor is being held considering the elevated LFTs and that his Lipid Profile is currently WNL. * His Lipid profile and LFTs will need to be monitored by his PMD upon discharge. * Abdominal US: shows adenomyosis of gallbladder and other findings; will need outpatient follow-up with GI. * Downtrending Prophylaxis * Pepcid 20mg PO daily * Zofran 4mg IVP Q 6H PRN nausea * Heparin drip-->Coumadin; f/u INR * NS 100cc.hr * Colace 100mg PO BID * Florastor 250mg PO BID * PT/OT eval - TRENT - pending retrieval of insurance DW Francisca Parra DO PGY-1 <Unruly Vines - Last Filed: 03/09/17 19:10> Objective - Vital Signs/Intake and Output Vital Signs (last 24 hours): Temp Pulse Resp BP Pulse Ox 98.3 F 68 20 132/76 97 03/09/17 15:20 03/09/17 15:20 03/09/17 15:20 03/09/17 15:20 03/09/17 15:20 Intake and Output: 03/09/17 03/10/17 18:59 06:59 Intake Total 1430 Balance 1430 - Medications Medications: Current Medications Amiodarone HCl (Cordarone) 200 mg PO BID [facility] Last Admin: 03/09/17 18:27 Dose: 200 mg Aspirin (Aspirin Chewable) 81 mg PO DAILY [facility] Diltiazem HCl (Cardizem Cd) 360 mg PO DAILY [facility] Last Admin: 03/09/17 09:51 Dose: 360 mg Docusate Sodium (Colace) 100 mg PO BID [facility] Last Admin: 03/09/17 18:27 Dose: 100 mg Famotidine (Pepcid) 20 mg PO DAILY [facility] Last Admin: 03/09/17 09:52 Dose: 20 mg Finasteride (Proscar) 5 mg PO DAILY [facility] Last Admin: 03/09/17 09:52 Dose: 5 mg Ampicillin 2 gm/ Sodium (Chloride) 100 mls @ 50 mls/hr IVPB Q6H [facility] Last Admin: 03/09/17 18:46 Dose: 50 mls/hr Ceftriaxone Sodium 1 gm/ (Sodium Chloride) 100 mls @ 100 mls/hr IVPB DAILY@ 1500 [facility] Last Admin: 03/09/17 15:07 Dose: 100 mls/hr Lactobacillus Acidophilus (Bacid Acidophilus) 1 cap PO BID [facility] Last Admin: 03/09/17 18:43 Dose: 1 cap Levetiracetam (Keppra) 500 mg PO BID [facility] Last Admin: 03/09/17 18:27 Dose: 500 mg Losartan Potassium (Cozaar) 25 mg PO DAILY [facility] Last Admin: 03/09/17 09:52 Dose: 25 mg Metoprolol Tartrate (Lopressor) 100 mg PO Q12 [facility] Last Admin: 03/09/17 09:52 Dose: 100 mg Ondansetron HCl (Zofran Inj) 4 mg IVP Q6 PRN PRN Reason: Nausea/Vomiting Tamsulosin HCl (Flomax) 0.4 mg PO DAILY [facility] Last Admin: 03/09/17 09:52 Dose: 0.4 mg - Labs Labs: 03/09/17 11:30 03/09/17 11:30 PT 25.4 SECONDS (9.7-12.2) H 03/09/17 11:30 INR 2.2 03/09/17 11:30 APTT 28 SECONDS (21-34) D 03/09/17 11:30 Attending/Attestation - Attestation I have personally seen and examined this patient.: Yes I have fully participated in the care of the patient.: Yes I have reviewed all pertinent clinical information, including history, physical exam and plan: Yes Notes (Text): 03/09/17 19:04 Patient was seen and examined shortly after resident 03/09/17 Exam, assessment and plan were gone over with the resident. Also on EXAM: Bilateral Groin surgical site (from bilateral thrombectomies): mehran removed by Vascular Surgery and placed sutures. NO wound dehiscence Bilateral AKA surgical site: surgical mehran are in place, NO wound dehiscence Skin: no sacral ulcers and no ulcers noted on any of the indigo prominences Also on Assessment and Plan: Hx Multiple CVAs: ASA restarted, holding statin secondary to history of elevated LFTs Hx Elevated LFTs: secondary to Dilantin (which was changed to Keppra) ? secondary to Statin (which is being held) ? secondary to Rocephin which he is currently on (along with ampicillin) for treatment of left leg wound + culture and urine culture + 03/02/17 and 03/03/17 and Blood Culture + 03/02/17. Please note that INR is 2.2 today. Coumadin 5 mg PO x 1 dose tonight. Heparin Drip was discontinued F/U repeat Urine Culture 03/09/17
--- NOTE | 2017-03-09 09:49 | CP.PCM.PN ---
<CHRISSY PEARCE - Last Filed: 03/09/17 15:44> Subjective - Date & Time of Evaluation Date of Evaluation: 03/09/17 Time of Evaluation: 09:00 - Subjective Subjective: Chrissy Pearce DO PGY1 - Cardiology Progress Note for Dr. Brown Patient seen and examined at bedside. Patient is s/p b/l AKA POD 5. Patient is awake and alert, responding to questions appropriately, though has AMS; altered at baseline. Daughter was at bedside, acting as commercial helicopter pilot, and all questions were answered to her satisfaction. He denies any CP, SOB, palpitations, dizziness, CARREON. He denies pain at rest in his legs, but does have tenderness at both stumps, R>L. Objective - Vital Signs/Intake and Output Vital Signs (last 24 hours): Temp Pulse Resp BP Pulse Ox 98.3 F 99 H 20 138/84 96 03/09/17 08:43 03/09/17 08:43 03/09/17 08:43 03/09/17 08:43 03/09/17 08:43 Intake and Output: 03/09/17 03/09/17 06:59 18:59 Intake Total 1386 Output Total 500 Balance 886 - Medications Medications: Current Medications Amiodarone HCl (Cordarone) 200 mg PO BID [facility] Last Admin: 03/08/17 18:19 Dose: 200 mg Diltiazem HCl (Cardizem Cd) 360 mg PO DAILY [facility] Last Admin: 03/08/17 10:45 Dose: 360 mg Docusate Sodium (Colace) 100 mg PO BID [facility] Last Admin: 03/08/17 18:19 Dose: 100 mg Famotidine (Pepcid) 20 mg PO DAILY [facility] Last Admin: 03/08/17 11:09 Dose: 20 mg Finasteride (Proscar) 5 mg PO DAILY [facility] Last Admin: 03/08/17 11:12 Dose: 5 mg Hydromorphone HCl (Dilaudid) 1 mg IVP Q3 PRN PRN Reason: Pain, severe (8-10) Last Admin: 03/09/17 01:46 Dose: 1 mg Ampicillin 2 gm/ Sodium (Chloride) 100 mls @ 50 mls/hr IVPB Q6H [facility] Last Admin: 03/09/17 06:00 Dose: 50 mls/hr Ceftriaxone Sodium 1 gm/ (Sodium Chloride) 100 mls @ 100 mls/hr IVPB DAILY@ 1500 [facility] Last Admin: 03/08/17 18:46 Dose: 100 mls/hr Heparin Sodium/Sodium Chloride (Heparin 98122 Units/250ml 1/2 Normal Saline) 25 ,000 units in 250 mls @ 9.199 mls/hr IV .Q24H PRN; Protocol; 12 UNITS/KG/HR PRN Reason: PROTOCOL Lactobacillus Acidophilus (Bacid Acidophilus) 1 cap PO BID [facility] Last Admin: 03/08/17 18:19 Dose: 1 cap Levetiracetam (Keppra) 500 mg PO BID [facility] Last Admin: 03/08/17 18:19 Dose: 500 mg Losartan Potassium (Cozaar) 25 mg PO DAILY [facility] Last Admin: 03/08/17 11:12 Dose: 25 mg Metoprolol Tartrate (Lopressor) 100 mg PO Q12 [facility] Last Admin: 03/08/17 21:58 Dose: Not Given Ondansetron HCl (Zofran Inj) 4 mg IVP Q6 PRN PRN Reason: Nausea/Vomiting Tamsulosin HCl (Flomax) 0.4 mg PO DAILY [facility] Last Admin: 03/08/17 11:13 Dose: 0.4 mg Warfarin Sodium (Coumadin) 5 mg PO 1800 [facility] Stop: 03/09/17 18:01 - Labs Labs: 03/07/17 06:43 03/08/17 07:38 PT 22.2 SECONDS (9.7-12.2) H 03/08/17 16:41 INR 1.9 03/08/17 16:41 APTT 57 SECONDS (21-34) H D 03/08/17 07:38 - Constitutional Appears: Non-toxic, No Acute Distress, Confused, Chronically Ill - Head Exam Head Exam: ATRAUMATIC, NORMOCEPHALIC - Eye Exam Eye Exam: EOMI, Normal appearance - ENT Exam ENT Exam: Mucous Membranes Moist - Neck Exam Neck Exam: Full ROM, Normal Inspection - Respiratory Exam Respiratory Exam: Clear to Ausculation Bilateral. absent: Rales, Rhonchi, Wheezes - Cardiovascular Exam Cardiovascular Exam: Irregular Rhythm, +S1, +S2 - GI/Abdominal Exam GI & Abdominal Exam: Soft. absent: Tenderness - Extremities Exam Additional comments: b/l AKA, mild tenderness left stump, severe tenderness R stump; patient no longer actively gaurding right stump as in prior exams - Neurological Exam Neurological Exam: Alert, Awake Additional comments: Oriented x1 - Psychiatric Exam Psychiatric exam: Normal Affect, Normal Mood - Skin Skin Exam: Dry, Intact Assessment and Plan (1) NSVT (nonsustained ventricular tachycardia) Assessment & Plan: HR currently stable, with no events of VTach recorded on monitor in past 24 hrs Continue amiodarone, BB Status: Acute (2) Atrial fibrillation Assessment & Plan: Rate controlled Continue CCB, BB Previously anticoagulated on coumadin 5mg daily, INR goal 2.5; was supratherapeutic preoperatively, but now subtherapeutic at 1.9 (yesterday - INR today ordered, pending); Coumadin was held preoperative and was given vitamin K and FFP in anticipation of the surgery Continue coumadin 5mg daily; Daily PT/INR Heparin GTT for bridging until therapeutic on coumadin Status: Acute (3) Critical lower limb ischemia Assessment & Plan: Patient is POD 5 s/p b/l AKA Patient has history of PAD and initially presented with b/l lower limb ischemia L>R, s/p thrombectomy Anticoagulated on coumadin, as above; bridging with heparin Wound care following Status: Acute (4) HTN (hypertension), malignant Assessment & Plan: BP remains stable after medication changes Off chlorthalidone and PO losartan Continue PO cardizem, PO metroprolol Continue to monitor BP and titrate as needed Status: Acute <Luis Brown - Last Filed: 04/09/17 14:56> Objective - Vital Signs/Intake and Output Vital Signs (last 24 hours): Temp Pulse Resp BP Pulse Ox 98.5 F 60 20 150/68 97 04/09/17 08:00 04/09/17 08:00 04/09/17 08:00 04/09/17 08:00 04/09/17 08:00 Intake and Output: 04/09/17 04/09/17 06:59 18:59 Intake Total 240 Output Total 300 800 Balance -60 -800 - Medications Medications: Current Medications Amiodarone HCl (Cordarone) 200 mg PO BID [facility] Last Admin: 04/09/17 09:34 Dose: 200 mg Aspirin (Ecotrin) 81 mg PO DAILY [facility] Last Admin: 04/09/17 09:34 Dose: 81 mg Bacitracin (Bacitracin) 0 gm TOP DAILY [facility] Last Admin: 04/09/17 09:46 Dose: 1 applic Diltiazem HCl (Cardizem Cd) 360 mg PO DAILY [facility] Last Admin: 04/09/17 09:35 Dose: 360 mg Docusate Sodium (Colace) 100 mg PO BID [facility] Last Admin: 04/09/17 09:34 Dose: 100 mg Famotidine (Pepcid) 20 mg PO DAILY [facility] Last Admin: 04/09/17 09:43 Dose: 20 mg Finasteride (Proscar) 5 mg PO DAILY [facility] Last Admin: 04/09/17 09:34 Dose: 5 mg Gabapentin (Neurontin) 300 mg PO TID [facility] Last Admin: 04/09/17 09:34 Dose: 300 mg Lactobacillus Acidophilus (Bacid Acidophilus) 1 cap PO BID [facility] Stop: 04/14/17 18:00 Last Admin: 04/09/17 09:35 Dose: 1 cap Levetiracetam (Keppra) 500 mg PO BID [facility] Last Admin: 04/09/17 09:34 Dose: 500 mg Losartan Potassium (Cozaar) 25 mg PO DAILY [facility] Last Admin: 04/09/17 09:34 Dose: 25 mg Rosuvastatin Calcium (Crestor) 5 mg PO HS [facility] Last Admin: 04/08/17 21:29 Dose: 5 mg Tamsulosin HCl (Flomax) 0.4 mg PO DAILY [facility] Last Admin: 04/09/17 09:34 Dose: 0.4 mg Vitamin A (Vitamin A & D Oint Ud Foilpak) 1 ea TOP BID [facility] Last Admin: 04/09/17 09:35 Dose: 1 ea Warfarin Sodium (Coumadin) 3 mg PO 1800 [facility] Stop: 04/09/17 18:01 - Labs Labs: 04/09/17 08:21 04/09/17 08:21 PT 28.6 SECONDS (9.7-12.2) H D 04/09/17 13:56 INR 2.4 D 04/09/17 13:56 APTT 38 SECONDS (21-34) H D 04/07/17 07:08 Assessment and Plan (1) NSVT (nonsustained ventricular tachycardia) Status: Acute (2) Atrial fibrillation Status: Acute (3) HTN (hypertension), malignant Status: Acute (4) Critical lower limb ischemia Status: Acute Attending/Attestation - Attestation I have personally seen and examined this patient.: Yes I have fully participated in the care of the patient.: Yes I have reviewed all pertinent clinical information, including history, physical exam and plan: Yes
[2017-03-09] MEDS: diltiaZEM 180 mg/24 Hours CD Cap PO SCH (09:51)
[2017-03-09] MEDS: Lactobacillus Acidophilus 500 MU Cap PO SCH ×2 (09:51→18:43)
[2017-03-09 11:51] LABS: INR 2.2
[2017-03-09 11:59] LABS: BASO % 0.2 % (0.0-2.0); EOS % 0.4 % (0.0-4.0); HEMATOCRIT 29.4 % (35.0-51.0); LYMPH # 0.9 K/uL (1.0-4.3); LYMPH % 14.3 % (20.0-40.0); MEAN CELL VOLUME 80.9 fL (80.0-94.0); MEAN CORPUSCULAR HEMOGLOBIN 27.2 pg (27.0-31.0); MEAN CORPUSCULAR HGB CONC 33.7 g/dL (33.0-37.0); MEAN PLATELET VOLUME 7.7 fL (7.2-11.7); MONO # 0.3 K/uL (0.0-0.8); MONO % 4.3 % (0.0-10.0); NRBC % 0.1 % (0.0-2.0); RED CELL DISTRIBUTION WIDTH 15.9 % (11.5-14.5); WHITE BLOOD COUNT 6.5 K/uL (4.8-10.8)
[2017-03-09 12:01] LABS: CHLORIDE 98 mmol/L (98-107); SODIUM 135 mmol/L (132-148)
[2017-03-09 12:02] LABS: POTASSIUM 3.5 mmol/L (3.6-5.2)
[2017-03-09 12:03] LABS: GFR AFRICAN-AMERICAN > 60
[2017-03-09 12:04] LABS: ALB/GLOB RATIO 0.8 (1.0-2.1); ALKALINE PHOSPHATASE 91 U/L (38-126); ALT/SGPT 87 U/L (21-72); AST/SGOT 66 U/L (17-59); BILIRUBIN,TOTAL 0.5 mg/dL (0.2-1.3); BLOOD UREA NITROGEN 10 mg/dL (9-20); CARBON DIOXIDE 26 mmol/L (22-30); GLUCOSE,RANDOM 111 mg/dL (75-110); TOTAL PROTEIN 5.8 g/dL (6.3-8.3)
[2017-03-09] MEDS ORDERED: Potassium Chloride 20 mEq/15 ml LIQ UD PO ONE (13:30)
--- NOTE | 2017-03-10 07:55 | CP.PCM.PN ---
<LobitoPalak lawrence - Last Filed: 03/10/17 13:38> Subjective - Date & Time of Evaluation Date of Evaluation: 03/10/17 Time of Evaluation: 07:00 - Subjective Subjective: Medicine Note for Dr. Yara Vines Patient was seen and examined at bedside. Patient is not oriented to person, place, or time. Spoke with Daughter at bedside. He is unaware of his B/L AKA. ROS unattainable. Objective - Vital Signs/Intake and Output Vital Signs (last 24 hours): Temp Pulse Resp BP Pulse Ox 97.8 F 80 20 149/83 94 L 03/10/17 00:00 03/10/17 00:00 03/10/17 00:00 03/10/17 00:00 03/10/17 00:00 Intake and Output: 03/10/17 03/10/17 06:59 18:59 Intake Total 850 Balance 850 - Medications Medications: Current Medications Amiodarone HCl (Cordarone) 200 mg PO BID [facility] Last Admin: 03/09/17 18:27 Dose: 200 mg Aspirin (Aspirin Chewable) 81 mg PO DAILY [facility] Diltiazem HCl (Cardizem Cd) 360 mg PO DAILY [facility] Last Admin: 03/09/17 09:51 Dose: 360 mg Docusate Sodium (Colace) 100 mg PO BID [facility] Last Admin: 03/09/17 18:27 Dose: 100 mg Famotidine (Pepcid) 20 mg PO DAILY [facility] Last Admin: 03/09/17 09:52 Dose: 20 mg Finasteride (Proscar) 5 mg PO DAILY [facility] Last Admin: 03/09/17 09:52 Dose: 5 mg Ampicillin 2 gm/ Sodium (Chloride) 100 mls @ 50 mls/hr IVPB Q6H [facility] Last Admin: 03/10/17 06:00 Dose: 50 mls/hr Ceftriaxone Sodium 1 gm/ (Sodium Chloride) 100 mls @ 100 mls/hr IVPB DAILY@ 1500 [facility] Last Admin: 03/09/17 15:07 Dose: 100 mls/hr Lactobacillus Acidophilus (Bacid Acidophilus) 1 cap PO BID [facility] Last Admin: 03/09/17 18:43 Dose: 1 cap Levetiracetam (Keppra) 500 mg PO BID [facility] Last Admin: 03/09/17 18:27 Dose: 500 mg Losartan Potassium (Cozaar) 25 mg PO DAILY [facility] Last Admin: 03/09/17 09:52 Dose: 25 mg Metoprolol Tartrate (Lopressor) 100 mg PO Q12 [facility] Last Admin: 03/09/17 21:44 Dose: 100 mg Ondansetron HCl (Zofran Inj) 4 mg IVP Q6 PRN PRN Reason: Nausea/Vomiting Tamsulosin HCl (Flomax) 0.4 mg PO DAILY [facility] Last Admin: 03/09/17 09:52 Dose: 0.4 mg Warfarin Sodium (Coumadin) 5 mg PO 1800 [facility] Stop: 03/10/17 18:01 - Labs Labs: 03/09/17 11:30 03/09/17 11:30 PT 25.4 SECONDS (9.7-12.2) H 03/09/17 11:30 INR 2.2 03/09/17 11:30 APTT 28 SECONDS (21-34) D 03/09/17 11:30 - Additional Findings Additional findings: - Constitutional Appears: Non-toxic, No Acute Distress - Head Exam Head Exam: NORMAL INSPECTION - Eye Exam Eye Exam: EOMI - ENT Exam ENT Exam: Mucous Membranes Moist - Respiratory Exam Respiratory Exam: Clear to Ausculation Bilateral, NORMAL BREATHING PATTERN. absent: Rales, Rhonchi, Wheezes, Respiratory Distress - Cardiovascular Exam Cardiovascular Exam: REGULAR RHYTHM, +S1, +S2 - GI/Abdominal Exam GI & Abdominal Exam: Soft, Normal Bowel Sounds. 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 Kaur) on the case-->help appreciated * Patient may restart Coumadin * pain: oxycodone/tylenol 2 tab PO Q 6H prn * Dilaudid mg IVP Q 3 PRN pain * Cardiology (Dr. Brown) on the case-->help appreciated * Family has been routinely updated regarding the progression and necrosis of the legs; and ultimately decided on 03/03/17 for surgery * s/p 02/05/17 Femoral embolectomy via groin incision, right and left with intraoperative angiograms-->bilateral femoral embolectomy by groin incision and angiography-->clot removed by the right lower extremity; no clot from the left. * s/p b/l AKA 03/04 * Pain medications: Morphine, percocet PRN * Bridged to Coumadin target INR 2.5 ( this goal was prior to B/L AKA) * INR: 2.2 yesterday, today INR is: 2.6 * Continue to monitor INR with goal between 2-3 * Patient has mild surgical deshcience from 02/05/17 surgery--> mehran removed, and sutures--> Discussed with Dr Kaur 03/07 * Cultures: * Leg Right and Left (03/02/17): Serratia Marcescens and Enterococcus Faecalis * Blood cultures (03/07): no growth after 24 hours * Start Ampicillin 2mgram IVPB Q 6 (active since 03/06/17) and Rocephin 1 gram IVPB daily (active since 03/06/17) ---> monitor LFTs Hx Atrial Fibrillation * Cardiology (Dr. Brown) on the case-->help appreciated * INR was reversed with 3 units of FFP and vitamin K prior to patient going for emergent surgery 03/04/17 * Currently on Coumadin 5mg PO QHS - MONITOR INR * Cardizem CD 360 mg PO 1x/day * Metoprolol 100 mg PO Q12H * Amiodarone 200mg PO BID Hx Seizure Disorder * Neurology Consult was ordered with Dr. Onesimo Hogan to see if patient could be switched over to Keppra. * Dr. Hogan has placed patient on Keppra 500 mg PO 2x/day * Patient's prior CT scans showing encephalomacia given history of multiple strokes in the past Hx Multiple CVAs * On Heparin drip being bridged to Coumadin * On seizure prophylaxis * On statin, aspirin, blood pressure to control Enlarged prostate, Urinary Retention * Renal US: high postvoid residual and enlarged prostate. Nephrology started on Flomax 0.4mg PO daily and Proscar 5mg PO daily * 03/05: has urinary retention today; advised patient to straight cath; Lasix 20mg IV X1 * Will need to monitor urinary output Sepsis --> --> resolved * Infectious Disease (Dr. Sarkar) on the case-->help appreciated * Vascular surgery (Dr. Kaur) on the case--->help appreciated * Code sepsis 03/03 * 03/04: C/w IV abx; Patient awaiting surgery with Dr. Kaur later today; Reverse INR with FFP X3 units prior to OR * 03/05: White count improved. * 03/06: White count stable. patient started on 2 new IV abx * IV abx: Zosyn 3.375 IVQ 6H (active since 03/03-), Vancomycin 1gram IVPB Q 24H (active since 03/03-) * Start Ampicillin 2mgram IVPB Q 6 (active since 03/06/17) and Rocephin 1 gram IVPB daily (active since 03/06/17) ---> monitor LFTs * Cultures: * Urine Culture (03/03/17): Enterococcus Faecalis-->sensitive to Vancomycin and PCN * Blood cultures (03/03/17): No growth after 4 days X2 * Urine culture (03/02/17): Enterococcus Faecalis * Blood culture (03/02/17): Bacillus species * Blood Culture (03/02/17): no growth after 5 days * Leg Right and Left (03/02/17): Serratia Marcescens and Enterococcus Faecalis * Blood cultures (03/07): no growth after 24 hours Malignant Hypertension --> resolved * Fleet Maintenance Manager Dr. Brown 02/12/17 on board-->help appreciated * ASA 81mg PO daily * Cozaar 25mg PO daily * Cardizem CD 360 mg 1x/day * Metoprolol 100mg PO Q bid * CT Angiogram of the Abdomen/Pelvis 02/04/17 did NOT show any evidence of Renal Artery Stenosis Elevated LFTs-->normalized * Crestor is being held considering the elevated LFTs and that his Lipid Profile is currently WNL. * His Lipid profile and LFTs will need to be monitored by his PMD upon discharge. * Abdominal US: shows adenomyosis of gallbladder and other findings; will need outpatient follow-up with GI. * Downtrending Prophylaxis * Pepcid 20mg PO daily * Zofran 4mg IVP Q 6H PRN nausea * Heparin drip-->Coumadin; f/u INR * NS 100cc.hr * Colace 100mg PO BID * Florastor 250mg PO BID * PT/OT eval - TRENT - pending retrieval of insurance DW Francisca Parra DO PGY-1 <Unruly Vines - Last Filed: 03/10/17 19:00> Objective - Vital Signs/Intake and Output Vital Signs (last 24 hours): Temp Pulse Resp BP Pulse Ox 97.7 F 54 L 20 108/61 99 03/10/17 15:00 03/10/17 15:00 03/10/17 15:00 03/10/17 15:00 03/10/17 15:00 Intake and Output: 03/10/17 03/10/17 06:59 18:59 Intake Total 850 700 Balance 850 700 - Medications Medications: Current Medications Amiodarone HCl (Cordarone) 200 mg PO BID [facility] Last Admin: 03/10/17 17:41 Dose: 200 mg Aspirin (Aspirin Chewable) 81 mg PO DAILY [facility] Last Admin: 03/10/17 09:47 Dose: 81 mg Diltiazem HCl (Cardizem Cd) 360 mg PO DAILY [facility] Last Admin: 03/10/17 09:47 Dose: 360 mg Docusate Sodium (Colace) 100 mg PO BID [facility] Last Admin: 03/10/17 17:41 Dose: 100 mg Famotidine (Pepcid) 20 mg PO DAILY [facility] Last Admin: 03/10/17 09:48 Dose: 20 mg Finasteride (Proscar) 5 mg PO DAILY [facility] Last Admin: 03/10/17 09:48 Dose: 5 mg Gabapentin (Neurontin) 100 mg PO TID [facility] Last Admin: 03/10/17 17:42 Dose: 100 mg Ampicillin 2 gm/ Sodium (Chloride) 100 mls @ 50 mls/hr IVPB Q6H [facility] Last Admin: 03/10/17 12:37 Dose: 50 mls/hr Ceftriaxone Sodium 1 gm/ (Sodium Chloride) 100 mls @ 100 mls/hr IVPB DAILY@ 1500 [facility] Last Admin: 03/10/17 14:48 Dose: 100 mls/hr Lactobacillus Acidophilus (Bacid Acidophilus) 1 cap PO BID [facility] Last Admin: 03/10/17 09:47 Dose: 1 cap Levetiracetam (Keppra) 500 mg PO BID [facility] Last Admin: 03/10/17 17:45 Dose: 500 mg Losartan Potassium (Cozaar) 25 mg PO DAILY [facility] Last Admin: 03/10/17 09:48 Dose: 25 mg Metoprolol Tartrate (Lopressor) 100 mg PO Q12 [facility] Last Admin: 03/10/17 09:48 Dose: 100 mg Morphine Sulfate (Morphine) 2 mg IVP Q4 PRN PRN Reason: Pain, severe (8-10) Last Admin: 03/10/17 09:49 Dose: 2 mg Ondansetron HCl (Zofran Inj) 4 mg IVP Q6 PRN PRN Reason: Nausea/Vomiting Oxycodone/Acetaminophen (Percocet 5/325 Mg Tab) 2 tab PO Q6H PRN PRN Reason: Pain, moderate (4-7) Stop: 03/13/17 09:07 Tamsulosin HCl (Flomax) 0.4 mg PO DAILY [facility] Last Admin: 03/10/17 09:48 Dose: 0.4 mg - Labs Labs: 03/10/17 08:27 03/10/17 08:27 PT 29.8 SECONDS (9.7-12.2) H* 03/10/17 08:27 INR 2.6 03/10/17 08:27 APTT 28 SECONDS (21-34) D 03/09/17 11:30 Attending/Attestation - Attestation I have personally seen and examined this patient.: Yes I have fully participated in the care of the patient.: Yes I have reviewed all pertinent clinical information, including history, physical exam and plan: Yes Notes (Text): 03/10/17 18:52 Patient was seen and examined at 1:30 PM 03/11/17. Exam, assessment and plan were gone over with the resident. Also on EXAM: Bilateral Groin surgical site (from bilateral thrombectomies): mehran removed by Vascular Surgery and placed sutures. NO wound dehiscence Bilateral AKA surgical site: surgical mehran are in place, NO wound dehiscence Skin: no sacral ulcers and no ulcers noted on any of the indigo prominences Also on Assessment and Plan: Hx Multiple CVAs: ASA restarted, holding statin secondary to history of elevated LFTs Hx Elevated LFTs: secondary to Dilantin (which was changed to Keppra) ? secondary to Statin (which is being held) ? secondary to Rocephin which he is currently on (along with ampicillin) for treatment of left leg wound + culture and urine culture + 03/02/17 and 03/03/17 and Blood Culture + 03/02/17. Consider discontinuing both Ampicillin and Rocephin and changing this over to Ciprofloxacin as the Cipro will cover both the Serratia and Enteroccus found on the Left Leg Wound Culture and the Enteroccus found in the Urine Culture. Repeat Urine Culture ordered for 03/09/17 was never collected. Nursing Order placed today to straight catheterize the patient. INR at 2.6 today. Coumadin 5 mg PO x 1 dose for this evening. Awaiting Medicaid coverage for transfer to [facility]. Unruly Vines D.O.
[2017-03-10 08:37] LABS: INR 2.6
[2017-03-10 08:45] LABS: BASO % 0.2 % (0.0-2.0); EOS % 0.5 % (0.0-4.0); LYMPH # 1.3 K/uL (1.0-4.3); LYMPH % 16.3 % (20.0-40.0); MEAN CORPUSCULAR HGB CONC 34.2 g/dL (33.0-37.0); MONO # 0.4 K/uL (0.0-0.8); MONO % 4.6 % (0.0-10.0); RED CELL DISTRIBUTION WIDTH 16.2 % (11.5-14.5); WHITE BLOOD COUNT 7.7 K/uL (4.8-10.8)
[2017-03-10 08:50] LABS: CHLORIDE 99 mmol/L (98-107); POTASSIUM 3.6 mmol/L (3.6-5.2); SODIUM 136 mmol/L (132-148)
[2017-03-10 08:52] LABS: GFR AFRICAN-AMERICAN > 60
[2017-03-10 08:53] LABS: ALB/GLOB RATIO 0.6 (1.0-2.1); ALKALINE PHOSPHATASE 103 U/L (38-126); ALT/SGPT 104 U/L (21-72); AST/SGOT 76 U/L (17-59); BILIRUBIN,TOTAL 0.5 mg/dL (0.2-1.3); BLOOD UREA NITROGEN 11 mg/dL (9-20); CALCIUM 8.7 mg/dl (8.6-10.4); CARBON DIOXIDE 27 mmol/L (22-30); GLUCOSE,RANDOM 89 mg/dL (75-110); TOTAL PROTEIN 6.9 g/dL (6.3-8.3)
[2017-03-10] MEDS ORDERED: Oxycodone/Acetaminophen 5/325 mg Tab PO PRN (09:06)
--- NOTE | 2017-03-10 09:24 | CP.PCM.PN ---
Subjective - Date & Time of Evaluation Date of Evaluation: 03/10/17 Time of Evaluation: 07:00 - Subjective Subjective: Vascular Surgery Dr. Kaur Pt S&E @bedside. ETHAN. Pt altered at baseline, incomprehensible. tolerating diet. Objective - Vital Signs/Intake and Output Vital Signs (last 24 hours): Temp Pulse Resp BP Pulse Ox 98.3 F 76 20 145/79 95 03/10/17 07:51 03/10/17 07:51 03/10/17 07:51 03/10/17 07:51 03/10/17 07:51 Intake and Output: 03/10/17 03/10/17 06:59 18:59 Intake Total 850 Balance 850 - Medications Medications: Current Medications Amiodarone HCl (Cordarone) 200 mg PO BID [facility] Last Admin: 03/09/17 18:27 Dose: 200 mg Aspirin (Aspirin Chewable) 81 mg PO DAILY [facility] Diltiazem HCl (Cardizem Cd) 360 mg PO DAILY [facility] Last Admin: 03/09/17 09:51 Dose: 360 mg Docusate Sodium (Colace) 100 mg PO BID [facility] Last Admin: 03/09/17 18:27 Dose: 100 mg Famotidine (Pepcid) 20 mg PO DAILY [facility] Last Admin: 03/09/17 09:52 Dose: 20 mg Finasteride (Proscar) 5 mg PO DAILY [facility] Last Admin: 03/09/17 09:52 Dose: 5 mg Ampicillin 2 gm/ Sodium (Chloride) 100 mls @ 50 mls/hr IVPB Q6H [facility] Last Admin: 03/10/17 06:00 Dose: 50 mls/hr Ceftriaxone Sodium 1 gm/ (Sodium Chloride) 100 mls @ 100 mls/hr IVPB DAILY@ 1500 [facility] Last Admin: 03/09/17 15:07 Dose: 100 mls/hr Lactobacillus Acidophilus (Bacid Acidophilus) 1 cap PO BID [facility] Last Admin: 03/09/17 18:43 Dose: 1 cap Levetiracetam (Keppra) 500 mg PO BID [facility] Last Admin: 03/09/17 18:27 Dose: 500 mg Losartan Potassium (Cozaar) 25 mg PO DAILY [facility] Last Admin: 03/09/17 09:52 Dose: 25 mg Metoprolol Tartrate (Lopressor) 100 mg PO Q12 [facility] Last Admin: 03/09/17 21:44 Dose: 100 mg Morphine Sulfate (Morphine) 2 mg IVP Q4 PRN PRN Reason: Pain, severe (8-10) Ondansetron HCl (Zofran Inj) 4 mg IVP Q6 PRN PRN Reason: Nausea/Vomiting Oxycodone/Acetaminophen (Percocet 5/325 Mg Tab) 2 tab PO Q6H PRN PRN Reason: Pain, moderate (4-7) Stop: 03/13/17 09:07 Tamsulosin HCl (Flomax) 0.4 mg PO DAILY [facility] Last Admin: 03/09/17 09:52 Dose: 0.4 mg Warfarin Sodium (Coumadin) 5 mg PO 1800 [facility] Stop: 03/10/17 18:01 - Labs Labs: 03/10/17 08:27 03/10/17 08:27 PT 29.8 SECONDS (9.7-12.2) H* 03/10/17 08:27 INR 2.6 03/10/17 08:27 APTT 28 SECONDS (21-34) D 03/09/17 11:30 - Constitutional Appears: Non-toxic, No Acute Distress - Head Exam Head Exam: NORMAL INSPECTION - Eye Exam Eye Exam: Normal appearance - ENT Exam ENT Exam: Mucous Membranes Moist - Respiratory Exam Respiratory Exam: NORMAL BREATHING PATTERN. absent: Accessory Muscle Use, Respiratory Distress - GI/Abdominal Exam GI & Abdominal Exam: Soft. absent: Distended - Extremities Exam Additional comments: B/L AKA. dressings in place pt refusing examination - combative - Neurological Exam Neurological Exam: Alert, Altered, Awake - Psychiatric Exam Psychiatric exam: Agitated - Skin Skin Exam: Dry, Normal Color, Warm Assessment and Plan - Assessment and Plan (Free Text) Assessment: 71 y/o M POD#6 s/p B/L AKA - cont pain management - bridge to coumadin per primary - monitor PTT/INR - cont Abx per ID - will continue to follow peripherally Pt discussed w/ Dr. Vincent Olvera DO PGY2
[2017-03-10] MEDS: Lactobacillus Acidophilus 500 MU Cap PO SCH ×2 (09:47→18:00)
[2017-03-10] MEDS: diltiaZEM 180 mg/24 Hours CD Cap PO SCH (09:47)
--- NOTE | 2017-03-10 13:02 | CP.PCM.PN ---
<CHRISSY PEARCE - Last Filed: 03/10/17 12:59> Subjective - Date & Time of Evaluation Date of Evaluation: 03/10/17 Time of Evaluation: 07:15 - Subjective Subjective: Chrissy Pearce DO PGY1 - Cardiology Progress Note for Dr. Brown Patient seen and examined at bedside. Patient is s/p b/l AKA. Patient is awake and alert, responding to questions appropriately, though has AMS; altered at baseline. Daughter was again at bedside, acting as research phlebotomist, and all questions were again answered to her satisfaction. He denies any CP, SOB, palpitations, dizziness, CARREON. He denies pain at rest in his legs, but does have tenderness at both stumps, R>L. Patient is fearful, and does not understand all the people who come to see him, and in particular, doesn't understand what is happening when the phlobotomists come for daily labs. Daughter was able to explain what is happening, and the necessity of the tests. Objective - Vital Signs/Intake and Output Vital Signs (last 24 hours): Temp Pulse Resp BP Pulse Ox 98.3 F 76 20 145/79 95 03/10/17 07:51 03/10/17 07:51 03/10/17 07:51 03/10/17 07:51 03/10/17 07:51 Intake and Output: 03/10/17 03/10/17 06:59 18:59 Intake Total 850 Balance 850 - Medications Medications: Current Medications Amiodarone HCl (Cordarone) 200 mg PO BID [facility] Last Admin: 03/10/17 09:48 Dose: 200 mg Aspirin (Aspirin Chewable) 81 mg PO DAILY [facility] Last Admin: 03/10/17 09:47 Dose: 81 mg Diltiazem HCl (Cardizem Cd) 360 mg PO DAILY [facility] Last Admin: 03/10/17 09:47 Dose: 360 mg Docusate Sodium (Colace) 100 mg PO BID [facility] Last Admin: 03/10/17 09:47 Dose: 100 mg Famotidine (Pepcid) 20 mg PO DAILY [facility] Last Admin: 03/10/17 09:48 Dose: 20 mg Finasteride (Proscar) 5 mg PO DAILY [facility] Last Admin: 03/10/17 09:48 Dose: 5 mg Ampicillin 2 gm/ Sodium (Chloride) 100 mls @ 50 mls/hr IVPB Q6H [facility] Last Admin: 03/10/17 12:37 Dose: 50 mls/hr Ceftriaxone Sodium 1 gm/ (Sodium Chloride) 100 mls @ 100 mls/hr IVPB DAILY@ 1500 [facility] Last Admin: 03/09/17 15:07 Dose: 100 mls/hr Lactobacillus Acidophilus (Bacid Acidophilus) 1 cap PO BID [facility] Last Admin: 03/10/17 09:47 Dose: 1 cap Levetiracetam (Keppra) 500 mg PO BID [facility] Last Admin: 03/10/17 09:48 Dose: 500 mg Losartan Potassium (Cozaar) 25 mg PO DAILY [facility] Last Admin: 03/10/17 09:48 Dose: 25 mg Metoprolol Tartrate (Lopressor) 100 mg PO Q12 [facility] Last Admin: 03/10/17 09:48 Dose: 100 mg Morphine Sulfate (Morphine) 2 mg IVP Q4 PRN PRN Reason: Pain, severe (8-10) Last Admin: 03/10/17 09:49 Dose: 2 mg Ondansetron HCl (Zofran Inj) 4 mg IVP Q6 PRN PRN Reason: Nausea/Vomiting Oxycodone/Acetaminophen (Percocet 5/325 Mg Tab) 2 tab PO Q6H PRN PRN Reason: Pain, moderate (4-7) Stop: 03/13/17 09:07 Tamsulosin HCl (Flomax) 0.4 mg PO DAILY [facility] Last Admin: 03/10/17 09:48 Dose: 0.4 mg Warfarin Sodium (Coumadin) 5 mg PO 1800 [facility] Stop: 03/10/17 18:01 - Labs Labs: 03/10/17 08:27 03/10/17 08:27 PT 29.8 SECONDS (9.7-12.2) H* 03/10/17 08:27 INR 2.6 03/10/17 08:27 APTT 28 SECONDS (21-34) D 03/09/17 11:30 - Constitutional Appears: Non-toxic, No Acute Distress, Confused, Chronically Ill - Head Exam Head Exam: ATRAUMATIC, NORMOCEPHALIC - Eye Exam Eye Exam: EOMI, Normal appearance - ENT Exam ENT Exam: Mucous Membranes Moist - Neck Exam Neck Exam: Full ROM, Normal Inspection - Respiratory Exam Respiratory Exam: Clear to Ausculation Bilateral. absent: Rales, Rhonchi, Wheezes - Cardiovascular Exam Cardiovascular Exam: RRR, +S1, +S2 - GI/Abdominal Exam GI & Abdominal Exam: Soft. absent: Tenderness - Extremities Exam Additional comments: b/l AKA, mild tenderness left stump, severe tenderness R stump; patient no longer actively gaurding right stump as in prior exams - Neurological Exam Neurological Exam: Alert, Awake Additional comments: Oriented x1 - Psychiatric Exam Psychiatric exam: Anxious, Normal Affect - Skin Skin Exam: Dry, Intact Assessment and Plan (1) NSVT (nonsustained ventricular tachycardia) Assessment & Plan: HR currently stable, with no tachycardia noted in past 24 hours Continue amiodarone, BB Status: Acute (2) Atrial fibrillation Assessment & Plan: Rate controlled Continue CCB, BB Previously anticoagulated on coumadin 5mg daily, INR goal 2.5; was supratherapeutic preoperatively; Coumadin was held preoperative and was given vitamin K and FFP in anticipation of the surgery Now therapeutic on coumadin (INR 2.6); d/c heparin GTT Continue coumadin 5mg daily; Daily PT/INR Status: Acute (3) Critical lower limb ischemia Assessment & Plan: Patient is s/p b/l AKA Patient has history of PAD and initially presented with b/l lower limb ischemia L>R, s/p thrombectomy Anticoagulated on coumadin, as above Wound care following Status: Acute (4) HTN (hypertension), malignant Assessment & Plan: BP currently stable Continue PO cardizem, PO metroprolol Continue to monitor BP and titrate as needed Status: Acute <Luis Brown - Last Filed: 04/09/17 14:57> Objective - Vital Signs/Intake and Output Vital Signs (last 24 hours): Temp Pulse Resp BP Pulse Ox 98.5 F 60 20 150/68 97 04/09/17 08:00 04/09/17 08:00 04/09/17 08:00 04/09/17 08:00 04/09/17 08:00 Intake and Output: 04/09/17 04/09/17 06:59 18:59 Intake Total 240 Output Total 300 800 Balance -60 -800 - Medications Medications: Current Medications Amiodarone HCl (Cordarone) 200 mg PO BID [facility] Last Admin: 04/09/17 09:34 Dose: 200 mg Aspirin (Ecotrin) 81 mg PO DAILY [facility] Last Admin: 04/09/17 09:34 Dose: 81 mg Bacitracin (Bacitracin) 0 gm TOP DAILY [facility] Last Admin: 04/09/17 09:46 Dose: 1 applic Diltiazem HCl (Cardizem Cd) 360 mg PO DAILY [facility] Last Admin: 04/09/17 09:35 Dose: 360 mg Docusate Sodium (Colace) 100 mg PO BID [facility] Last Admin: 04/09/17 09:34 Dose: 100 mg Famotidine (Pepcid) 20 mg PO DAILY [facility] Last Admin: 04/09/17 09:43 Dose: 20 mg Finasteride (Proscar) 5 mg PO DAILY [facility] Last Admin: 04/09/17 09:34 Dose: 5 mg Gabapentin (Neurontin) 300 mg PO TID [facility] Last Admin: 04/09/17 09:34 Dose: 300 mg Lactobacillus Acidophilus (Bacid Acidophilus) 1 cap PO BID [facility] Stop: 04/14/17 18:00 Last Admin: 04/09/17 09:35 Dose: 1 cap Levetiracetam (Keppra) 500 mg PO BID [facility] Last Admin: 04/09/17 09:34 Dose: 500 mg Losartan Potassium (Cozaar) 25 mg PO DAILY [facility] Last Admin: 04/09/17 09:34 Dose: 25 mg Rosuvastatin Calcium (Crestor) 5 mg PO HS [facility] Last Admin: 04/08/17 21:29 Dose: 5 mg Tamsulosin HCl (Flomax) 0.4 mg PO DAILY [facility] Last Admin: 04/09/17 09:34 Dose: 0.4 mg Vitamin A (Vitamin A & D Oint Ud Foilpak) 1 ea TOP BID [facility] Last Admin: 04/09/17 09:35 Dose: 1 ea Warfarin Sodium (Coumadin) 3 mg PO 1800 [facility] Stop: 04/09/17 18:01 - Labs Labs: 04/09/17 08:21 04/09/17 08:21 PT 28.6 SECONDS (9.7-12.2) H D 04/09/17 13:56 INR 2.4 D 04/09/17 13:56 APTT 38 SECONDS (21-34) H D 04/07/17 07:08 Assessment and Plan (1) NSVT (nonsustained ventricular tachycardia) Status: Acute (2) Atrial fibrillation Status: Acute (3) HTN (hypertension), malignant Status: Acute (4) Critical lower limb ischemia Status: Acute Attending/Attestation - Attestation I have personally seen and examined this patient.: Yes I have fully participated in the care of the patient.: Yes I have reviewed all pertinent clinical information, including history, physical exam and plan: Yes
--- NOTE | 2017-03-10 13:20 | CARD ---
APPROVED REPORT EKG Measurement Heart [id number] <Conclusion> Atrial fibrillation with rapid ventricular response Right bundle branch block Left anterior fascicular block Bifascicular block Voltage criteria for left ventricular hypertrophy T wave abnormality, consider lateral ischemia Abnormal ECG
--- NOTE | 2017-03-11 07:25 | CP.PCM.PN ---
Addendum entered and electronically signed by Palak Espinosa DO 03/11/17 08:26 : Changes in ABX: Due to the elevated LFTs, both ampicillin and rocephin are DC. Amipillin lowers the seizure threshold and considering this patient has a history of seizures, currently on keppra, this abx will be DC. After speaking with ID, patient will be switched to Cipro 400mg IVP Q12H which covers the enterococcous that grew both in the wound culture and urine culture. Continue to monitor LFTs, INR. Original Note: <Palak Espinosa - Last Filed: 03/11/17 08:07> Subjective - Date & Time of Evaluation Date of Evaluation: 03/11/17 Time of Evaluation: 06:00 - Subjective Subjective: Medicine Note for Dr. Yara Vines Patient was seen and examined at bedside. Patient denies any complaints. Denied fever, chills, headache, SOB, chest pain, abdominal pain, n/v/d/c, or urinary symptoms. Objective - Vital Signs/Intake and Output Vital Signs (last 24 hours): Temp Pulse Resp BP Pulse Ox 97.3 F L 67 20 138/57 L 100 03/11/17 00:00 03/11/17 00:00 03/11/17 00:00 03/11/17 00:00 03/11/17 00:00 Intake and Output: 03/11/17 03/11/17 06:59 18:59 Intake Total 680 Balance 680 - Medications Medications: Current Medications Amiodarone HCl (Cordarone) 200 mg PO BID [facility] Last Admin: 03/10/17 17:41 Dose: 200 mg Aspirin (Aspirin Chewable) 81 mg PO DAILY [facility] Last Admin: 03/10/17 09:47 Dose: 81 mg Diltiazem HCl (Cardizem Cd) 360 mg PO DAILY [facility] Last Admin: 03/10/17 09:47 Dose: 360 mg Docusate Sodium (Colace) 100 mg PO BID [facility] Last Admin: 03/10/17 17:41 Dose: 100 mg Famotidine (Pepcid) 20 mg PO DAILY [facility] Last Admin: 03/10/17 09:48 Dose: 20 mg Finasteride (Proscar) 5 mg PO DAILY [facility] Last Admin: 03/10/17 09:48 Dose: 5 mg Gabapentin (Neurontin) 100 mg PO TID [facility] Last Admin: 03/10/17 17:42 Dose: 100 mg Ampicillin 2 gm/ Sodium (Chloride) 100 mls @ 50 mls/hr IVPB Q6H [facility] Last Admin: 03/11/17 06:00 Dose: 50 mls/hr Ceftriaxone Sodium 1 gm/ (Sodium Chloride) 100 mls @ 100 mls/hr IVPB DAILY@ 1500 [facility] Last Admin: 03/10/17 14:48 Dose: 100 mls/hr Lactobacillus Acidophilus (Bacid Acidophilus) 1 cap PO BID [facility] Last Admin: 03/10/17 18:00 Dose: 1 cap Levetiracetam (Keppra) 500 mg PO BID [facility] Last Admin: 03/10/17 17:45 Dose: 500 mg Losartan Potassium (Cozaar) 25 mg PO DAILY [facility] Last Admin: 03/10/17 09:48 Dose: 25 mg Metoprolol Tartrate (Lopressor) 100 mg PO Q12 [facility] Last Admin: 03/10/17 21:30 Dose: 100 mg Morphine Sulfate (Morphine) 2 mg IVP Q4 PRN PRN Reason: Pain, severe (8-10) Last Admin: 03/11/17 00:21 Dose: 2 mg Ondansetron HCl (Zofran Inj) 4 mg IVP Q6 PRN PRN Reason: Nausea/Vomiting Oxycodone/Acetaminophen (Percocet 5/325 Mg Tab) 2 tab PO Q6H PRN PRN Reason: Pain, moderate (4-7) Stop: 03/13/17 09:07 Tamsulosin HCl (Flomax) 0.4 mg PO DAILY [facility] Last Admin: 03/10/17 09:48 Dose: 0.4 mg - Labs Labs: 03/10/17 08:27 03/10/17 08:27 PT 29.8 SECONDS (9.7-12.2) H* 03/10/17 08:27 INR 2.6 03/10/17 08:27 APTT 28 SECONDS (21-34) D 03/09/17 11:30 - Constitutional Appears: No Acute Distress - Head Exam Head Exam: NORMAL INSPECTION, NORMOCEPHALIC - Eye Exam Eye Exam: EOMI, Normal appearance, PERRL Pupil Exam: NORMAL ACCOMODATION - ENT Exam ENT Exam: Mucous Membranes Moist, Normal Exam - Respiratory Exam Respiratory Exam: Clear to Ausculation Bilateral, NORMAL BREATHING PATTERN. absent: Decreased Breath Sounds, Wheezes - Cardiovascular Exam Cardiovascular Exam: REGULAR RHYTHM, RRR, +S1, +S2 - GI/Abdominal Exam GI & Abdominal Exam: Soft, Normal Bowel Sounds. absent: Distended, Tenderness Additional comments: Bilateral Groin surgical site (from bilateral thrombectomies): mehran removed by Vascular Surgery and placed sutures. 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 Kaur) on the case-->help appreciated * Patient may restart Coumadin * pain: oxycodone/tylenol 2 tab PO Q 6H prn * Dilaudid mg IVP Q 3 PRN pain * Cardiology (Dr. Brown) on the case-->help appreciated * Family has been routinely updated regarding the progression and necrosis of the legs; and ultimately decided on 03/03/17 for surgery * s/p 02/05/17 Femoral embolectomy via groin incision, right and left with intraoperative angiograms-->bilateral femoral embolectomy by groin incision and angiography-->clot removed by the right lower extremity; no clot from the left. * S/P B/L AKA (03/04/17) * Pain medications: Morphine, percocet PRN * Bridged to Coumadin target INR 2.5 ( this goal was prior to B/L AKA) * INR: 2.6 yesterday, today INR is: 3.0. Coumadin will be held tonight, resume coumadin 3mg PO QHS night. * Continue to monitor INR with goal between 2-3 * Patient has mild surgical deshcience from 02/05/17 surgery--> mehran removed, and sutures--> Discussed with Dr Kaur 03/07 * Cultures: * Leg Right and Left (03/02/17): Serratia Marcescens and Enterococcus Faecalis * Blood cultures (03/07): no growth after 24 hours * Start Ampicillin 2mgram IVPB Q 6 (active since 03/06/17) and Rocephin 1 gram IVPB daily (active since 03/06/17) ---> monitor LFTs Transaminitis * Secondary to Dilantin (which was changed to Keppra) ? secondary to Statin ( which is being held) ? secondary to Rocephin which he is currently on (along with ampicillin) for treatment of left leg wound + culture 03/02/17 and urine culture + 03/02/17 and 03/03/17 and Blood Culture + 03/02/17. * Crestor is being held considering the elevated LFTs and that his Lipid Profile is currently WNL. * Abdominal US: shows adenomyosis of gallbladder and other findings; will need outpatient follow-up with GI. * His Lipid profile and LFTs will need to be monitored by his PMD upon discharge. * Will touch base with Dr. Sarkar about possible ABX change, possibly Cipro to cover findings on both BC and UC Sepsis --> --> resolved * Infectious Disease (Dr. Sarkar) on the case-->help appreciated * Vascular surgery (Dr. Kaur) on the case--->help appreciated * Code sepsis 03/03 * 03/04: C/w IV abx; Patient awaiting surgery with Dr. Kaur later today; Reverse INR with FFP X3 units prior to OR * 03/05: White count improved. * 03/06: White count stable. patient started on 2 new IV abx * IV abx: Zosyn 3.375 IVQ 6H (active since 03/03-), Vancomycin 1gram IVPB Q 24H (active since 03/03-) * Start Ampicillin 2gram IVPB Q 6 (active since 03/06/17) and Rocephin 1 gram IVPB daily (active since 03/06/17) ---> monitor LFTs * Cultures: * Urine Culture (03/03/17): Enterococcus Faecalis-->sensitive to Vancomycin and PCN * Blood cultures (03/03/17): No growth after 4 days X2 * Urine culture (03/02/17): Enterococcus Faecalis * Blood culture (03/02/17): Bacillus species * Blood Culture (03/02/17): no growth after 5 days * Leg Right and Left (03/02/17): Serratia Marcescens and Enterococcus Faecalis * Blood cultures (03/07): no growth after 24 hours * F/U repeat UC - patient will need to be straight cath Hx Atrial Fibrillation * Cardiology (Dr. Brown) on the case-->help appreciated * INR was reversed with 3 units of FFP and vitamin K prior to patient going for emergent surgery 03/04/17 * Currently on Coumadin 5mg PO QHS * Cardizem CD 360 mg PO 1x/day * Metoprolol 100 mg PO Q12H * Amiodarone 200mg PO BID Hx Seizure Disorder * Neurology Consult was ordered with Dr. Onesimo Hogan to see if patient could be switched over to Keppra. * Dr. Hogan has placed patient on Keppra 500 mg PO 2x/day * Patient's prior CT scans showing encephalomacia given history of multiple strokes in the past Hx Multiple CVAs * On Heparin drip being bridged to Coumadin * On seizure prophylaxis * On statin, aspirin, blood pressure to control - statin is placed on hold 2/2 transaminitis Enlarged prostate, Urinary Retention * Renal US: high postvoid residual and enlarged prostate. Nephrology started on Flomax 0.4mg PO daily and Proscar 5mg PO daily * 03/05: has urinary retention today; advised patient to straight cath; Lasix 20mg IV X1 * Will need to monitor urinary output Malignant Hypertension --> resolved * Baker Chef Dr. Brown 02/12/17 on board-->help appreciated * ASA 81mg PO daily * Cozaar 25mg PO daily * Cardizem CD 360 mg 1x/day * Metoprolol 100mg PO Q bid * CT Angiogram of the Abdomen/Pelvis 02/04/17 did NOT show any evidence of Renal Artery Stenosis Prophylaxis * Pepcid 20mg PO daily * Zofran 4mg IVP Q 6H PRN nausea * Heparin drip-->Coumadin; f/u INR * NS 100cc.hr * Colace 100mg PO BID * Florastor 250mg PO BID * PT/OT eval - TRENT - pending retrieval of insurance DW Francisca Parra DO PGY-1 <Unruly Vines - Last Filed: 03/11/17 18:24> Objective - Vital Signs/Intake and Output Vital Signs (last 24 hours): Temp Pulse Resp BP Pulse Ox 97.5 F L 64 20 103/65 98 03/11/17 15:00 03/11/17 15:00 03/11/17 15:00 03/11/17 15:00 03/11/17 15:00 Intake and Output: 03/11/17 03/11/17 06:59 18:59 Intake Total 680 800 Output Total 1400 Balance 680 -600 - Medications Medications: Current Medications Amiodarone HCl (Cordarone) 200 mg PO BID [facility] Last Admin: 03/11/17 17:46 Dose: 200 mg Aspirin (Aspirin Chewable) 81 mg PO DAILY [facility] Last Admin: 03/11/17 10:34 Dose: 81 mg Diltiazem HCl (Cardizem Cd) 360 mg PO DAILY [facility] Last Admin: 03/11/17 10:34 Dose: 360 mg Docusate Sodium (Colace) 100 mg PO BID [facility] Last Admin: 03/11/17 17:44 Dose: 100 mg Famotidine (Pepcid) 20 mg PO DAILY [facility] Last Admin: 03/11/17 10:41 Dose: 20 mg Finasteride (Proscar) 5 mg PO DAILY [facility] Last Admin: 03/11/17 10:36 Dose: 5 mg Gabapentin (Neurontin) 100 mg PO TID [facility] Last Admin: 03/11/17 17:45 Dose: 100 mg Ciprofloxacin (Cipro 400mg/200ml Dsw) 400 mg in 200 mls @ 133 mls/hr IVPB Q12H [facility] Last Admin: 03/11/17 08:39 Dose: 133 mls/hr Lactobacillus Acidophilus (Bacid Acidophilus) 1 cap PO BID [facility] Last Admin: 03/11/17 17:44 Dose: 1 cap Levetiracetam (Keppra) 500 mg PO BID [facility] Last Admin: 03/11/17 17:44 Dose: 500 mg Losartan Potassium (Cozaar) 25 mg PO DAILY [facility] Last Admin: 03/11/17 10:35 Dose: 25 mg Metoprolol Tartrate (Lopressor) 100 mg PO Q12 [facility] Last Admin: 03/11/17 10:36 Dose: 100 mg Morphine Sulfate (Morphine) 2 mg IVP Q4 PRN PRN Reason: Pain, severe (8-10) Last Admin: 03/11/17 10:45 Dose: 2 mg Ondansetron HCl (Zofran Inj) 4 mg IVP Q6 PRN PRN Reason: Nausea/Vomiting Oxycodone/Acetaminophen (Percocet 5/325 Mg Tab) 2 tab PO Q6H PRN PRN Reason: Pain, moderate (4-7) Stop: 03/13/17 09:07 Tamsulosin HCl (Flomax) 0.4 mg PO DAILY [facility] Last Admin: 03/11/17 10:35 Dose: 0.4 mg - Labs Labs: 03/11/17 07:34 03/11/17 07:34 PT 35.1 SECONDS (9.7-12.2) H* D 03/11/17 07:34 INR 3.0 03/11/17 07:34 APTT 28 SECONDS (21-34) D 03/09/17 11:30 Attending/Attestation - Attestation I have personally seen and examined this patient.: Yes I have fully participated in the care of the patient.: Yes I have reviewed all pertinent clinical information, including history, physical exam and plan: Yes Notes (Text): 03/11/17 18:12 Patient was seen and examined shortly after resident 03/11/17. Exam, assessment and plan were gone over with the resident. INR to day is 3.0. Confirmed with Baker Chef Dr. Brown that he still wants INR between 2.5 and 3.5. Coumadin 3 mg PO x 1 dose was ordered for tonight. F/U repeat Urine Culture Catheterized I spoke with patient Daughter Pura who was present at the time of my exam and she would like patient to go to [facility] when Medicaid is approved. I will speak with [employer]. Awaiting Medicaid coverage for transfer to [facility]. 03/11/17 18:14
[2017-03-11 07:43] LABS: BASO % 0.2 % (0.0-2.0); EOS # 0.1 K/uL (0.0-0.7); EOS % 1.2 % (0.0-4.0); HEMATOCRIT 31.8 % (35.0-51.0); LYMPH # 1.6 K/uL (1.0-4.3); LYMPH % 21.9 % (20.0-40.0); MEAN CELL VOLUME 79.1 fL (80.0-94.0); MEAN CORPUSCULAR HEMOGLOBIN 27.4 pg (27.0-31.0); MEAN CORPUSCULAR HGB CONC 34.6 g/dL (33.0-37.0); MEAN PLATELET VOLUME 8.1 fL (7.2-11.7); MONO # 0.4 K/uL (0.0-0.8); MONO % 4.9 % (0.0-10.0); RED CELL DISTRIBUTION WIDTH 16.3 % (11.5-14.5); WHITE BLOOD COUNT 7.5 K/uL (4.8-10.8)
[2017-03-11 08:08] LABS: CHLORIDE 101 mmol/L (98-107); SODIUM 136 mmol/L (132-148)
[2017-03-11 08:11] LABS: ALB/GLOB RATIO 0.7 (1.0-2.1); ALKALINE PHOSPHATASE 92 U/L (38-126); ALT/SGPT 95 U/L (21-72); AST/SGOT 61 U/L (17-59); BILIRUBIN,TOTAL 0.4 mg/dL (0.2-1.3); BLOOD UREA NITROGEN 14 mg/dL (9-20); CARBON DIOXIDE 26 mmol/L (22-30); GFR AFRICAN-AMERICAN > 60; TOTAL PROTEIN 6.6 g/dL (6.3-8.3)
[2017-03-11 08:12] LABS: GLUCOSE,RANDOM 83 mg/dL (75-110)
[2017-03-11 08:13] LABS: CALCIUM 8.5 mg/dl (8.6-10.4)
[2017-03-11] MEDS: Ciprofloxacin 400mg/200ml D5W 400 MG/200 ML BAG IVPB SCH ×2 (08:39→20:41)
[2017-03-11] MEDS: Lactobacillus Acidophilus 500 MU Cap PO SCH ×2 (10:34→17:44)
[2017-03-11] MEDS: diltiaZEM 180 mg/24 Hours CD Cap PO SCH (10:34)
--- NOTE | 2017-03-11 17:16 | CP.PCM.PN ---
<CHRISSY PEARCE - Last Filed: 03/11/17 17:13> Subjective - Date & Time of Evaluation Date of Evaluation: 03/11/17 Time of Evaluation: 11:30 - Subjective Subjective: Chrissy Pearce DO PGY1 - Cardiology Progress Note for Dr. Brown Patient seen and examined at bedside. Patient is s/p b/l AKA. Patient is awake and alert, responding to questions appropriately, though has AMS; altered at baseline. He denies any CP, SOB, palpitations, dizziness, CARREON. He denies pain at rest in his legs, but does have tenderness at both stumps, R>L. Patient has a much more pleasant demeanor today, appears less anxious. Objective - Vital Signs/Intake and Output Vital Signs (last 24 hours): Temp Pulse Resp BP Pulse Ox 97.5 F L 64 20 103/65 98 03/11/17 15:00 03/11/17 15:00 03/11/17 15:00 03/11/17 15:00 03/11/17 15:00 Intake and Output: 03/11/17 03/11/17 06:59 18:59 Intake Total 680 800 Output Total 1400 Balance 680 -600 - Medications Medications: Current Medications Amiodarone HCl (Cordarone) 200 mg PO BID [facility] Last Admin: 03/11/17 10:35 Dose: 200 mg Aspirin (Aspirin Chewable) 81 mg PO DAILY [facility] Last Admin: 03/11/17 10:34 Dose: 81 mg Diltiazem HCl (Cardizem Cd) 360 mg PO DAILY [facility] Last Admin: 03/11/17 10:34 Dose: 360 mg Docusate Sodium (Colace) 100 mg PO BID [facility] Last Admin: 03/11/17 10:35 Dose: 100 mg Famotidine (Pepcid) 20 mg PO DAILY [facility] Last Admin: 03/11/17 10:41 Dose: 20 mg Finasteride (Proscar) 5 mg PO DAILY [facility] Last Admin: 03/11/17 10:36 Dose: 5 mg Gabapentin (Neurontin) 100 mg PO TID [facility] Last Admin: 03/11/17 10:36 Dose: 100 mg Ciprofloxacin (Cipro 400mg/200ml Dsw) 400 mg in 200 mls @ 133 mls/hr IVPB Q12H [facility] Last Admin: 03/11/17 08:39 Dose: 133 mls/hr Lactobacillus Acidophilus (Bacid Acidophilus) 1 cap PO BID [facility] Last Admin: 03/11/17 10:34 Dose: 1 cap Levetiracetam (Keppra) 500 mg PO BID [facility] Last Admin: 03/11/17 10:36 Dose: 500 mg Losartan Potassium (Cozaar) 25 mg PO DAILY [facility] Last Admin: 03/11/17 10:35 Dose: 25 mg Metoprolol Tartrate (Lopressor) 100 mg PO Q12 [facility] Last Admin: 03/11/17 10:36 Dose: 100 mg Morphine Sulfate (Morphine) 2 mg IVP Q4 PRN PRN Reason: Pain, severe (8-10) Last Admin: 03/11/17 10:45 Dose: 2 mg Ondansetron HCl (Zofran Inj) 4 mg IVP Q6 PRN PRN Reason: Nausea/Vomiting Oxycodone/Acetaminophen (Percocet 5/325 Mg Tab) 2 tab PO Q6H PRN PRN Reason: Pain, moderate (4-7) Stop: 03/13/17 09:07 Tamsulosin HCl (Flomax) 0.4 mg PO DAILY [facility] Last Admin: 03/11/17 10:35 Dose: 0.4 mg Warfarin Sodium (Coumadin) 3 mg PO 1800 [facility] Stop: 03/11/17 18:01 - Labs Labs: 03/11/17 07:34 03/11/17 07:34 PT 35.1 SECONDS (9.7-12.2) H* D 03/11/17 07:34 INR 3.0 03/11/17 07:34 APTT 28 SECONDS (21-34) D 03/09/17 11:30 - Constitutional Appears: Non-toxic, No Acute Distress, Confused - Head Exam Head Exam: ATRAUMATIC, NORMOCEPHALIC - Eye Exam Eye Exam: EOMI, Normal appearance - ENT Exam ENT Exam: Mucous Membranes Moist - Neck Exam Neck Exam: Full ROM, Normal Inspection - Respiratory Exam Respiratory Exam: Clear to Ausculation Bilateral. absent: Rales, Rhonchi, Wheezes - Cardiovascular Exam Cardiovascular Exam: RRR, +S1, +S2 - GI/Abdominal Exam GI & Abdominal Exam: Soft. absent: Tenderness - Extremities Exam Additional comments: s/p b/l AKA. Stump wounds CDI. No dressings. - Neurological Exam Neurological Exam: Alert, Awake - Psychiatric Exam Psychiatric exam: Normal Affect, Normal Mood - Skin Skin Exam: Dry, Intact Assessment and Plan (1) NSVT (nonsustained ventricular tachycardia) Assessment & Plan: HR currently stable, with no tachycardia noted in past 24 hours Continue amiodarone, BB Status: Acute (2) Atrial fibrillation Assessment & Plan: Rate controlled Continue CCB, BB Currently therapeutic on coumadin 5mg daily; INR 3.0 today Decrease coumadin to 3.5mg for today; Daily PT/INR Status: Acute (3) Critical lower limb ischemia Assessment & Plan: Patient is s/p b/l AKA Patient has history of PAD and initially presented with b/l lower limb ischemia L>R, s/p thrombectomy Anticoagulated on coumadin, as above Wound care following Status: Acute (4) HTN (hypertension), malignant Assessment & Plan: BP currently stable Continue PO cardizem, PO metroprolol Continue to monitor BP and titrate as needed Status: Acute <Luis Brown - Last Filed: 04/09/17 14:57> Objective - Vital Signs/Intake and Output Vital Signs (last 24 hours): Temp Pulse Resp BP Pulse Ox 98.5 F 60 20 150/68 97 04/09/17 08:00 04/09/17 08:00 04/09/17 08:00 04/09/17 08:00 04/09/17 08:00 Intake and Output: 04/09/17 04/09/17 06:59 18:59 Intake Total 240 Output Total 300 800 Balance -60 -800 - Medications Medications: Current Medications Amiodarone HCl (Cordarone) 200 mg PO BID [facility] Last Admin: 04/09/17 09:34 Dose: 200 mg Aspirin (Ecotrin) 81 mg PO DAILY [facility] Last Admin: 04/09/17 09:34 Dose: 81 mg Bacitracin (Bacitracin) 0 gm TOP DAILY [facility] Last Admin: 04/09/17 09:46 Dose: 1 applic Diltiazem HCl (Cardizem Cd) 360 mg PO DAILY [facility] Last Admin: 04/09/17 09:35 Dose: 360 mg Docusate Sodium (Colace) 100 mg PO BID [facility] Last Admin: 04/09/17 09:34 Dose: 100 mg Famotidine (Pepcid) 20 mg PO DAILY [facility] Last Admin: 04/09/17 09:43 Dose: 20 mg Finasteride (Proscar) 5 mg PO DAILY [facility] Last Admin: 04/09/17 09:34 Dose: 5 mg Gabapentin (Neurontin) 300 mg PO TID [facility] Last Admin: 04/09/17 09:34 Dose: 300 mg Lactobacillus Acidophilus (Bacid Acidophilus) 1 cap PO BID [facility] Stop: 04/14/17 18:00 Last Admin: 04/09/17 09:35 Dose: 1 cap Levetiracetam (Keppra) 500 mg PO BID [facility] Last Admin: 04/09/17 09:34 Dose: 500 mg Losartan Potassium (Cozaar) 25 mg PO DAILY [facility] Last Admin: 04/09/17 09:34 Dose: 25 mg Rosuvastatin Calcium (Crestor) 5 mg PO HS [facility] Last Admin: 04/08/17 21:29 Dose: 5 mg Tamsulosin HCl (Flomax) 0.4 mg PO DAILY [facility] Last Admin: 04/09/17 09:34 Dose: 0.4 mg Vitamin A (Vitamin A & D Oint Ud Foilpak) 1 ea TOP BID [facility] Last Admin: 04/09/17 09:35 Dose: 1 ea Warfarin Sodium (Coumadin) 3 mg PO 1800 [facility] Stop: 04/09/17 18:01 - Labs Labs: 04/09/17 08:21 04/09/17 08:21 PT 28.6 SECONDS (9.7-12.2) H D 04/09/17 13:56 INR 2.4 D 04/09/17 13:56 APTT 38 SECONDS (21-34) H D 04/07/17 07:08 Assessment and Plan (1) NSVT (nonsustained ventricular tachycardia) Status: Acute (2) Atrial fibrillation Status: Acute (3) HTN (hypertension), malignant Status: Acute (4) Critical lower limb ischemia Status: Acute Attending/Attestation - Attestation I have personally seen and examined this patient.: Yes I have fully participated in the care of the patient.: Yes I have reviewed all pertinent clinical information, including history, physical exam and plan: Yes
--- NOTE | 2017-03-12 07:20 | CP.PCM.PN ---
<LobitohowardPalak - Last Filed: 03/12/17 07:13> Subjective - Date & Time of Evaluation Date of Evaluation: 03/12/17 Time of Evaluation: 07:00 - Subjective Subjective: Medicine Note for Dr. Yara Vines Patient was seen and examined at bedside. Patient denies any complaints. Denied fever, chills, headache, SOB, chest pain, abdominal pain, n/v/d/c, or urinary symptoms. Objective - Vital Signs/Intake and Output Vital Signs (last 24 hours): Temp Pulse Resp BP Pulse Ox 98.6 F 60 20 104/57 L 98 03/12/17 00:00 03/12/17 00:00 03/12/17 00:00 03/12/17 00:00 03/12/17 00:00 Intake and Output: 03/12/17 03/12/17 06:59 18:59 Intake Total 600 200 Output Total 750 Balance -150 200 - Medications Medications: Current Medications Amiodarone HCl (Cordarone) 200 mg PO BID [facility] Last Admin: 03/11/17 17:46 Dose: 200 mg Aspirin (Aspirin Chewable) 81 mg PO DAILY [facility] Last Admin: 03/11/17 10:34 Dose: 81 mg Diltiazem HCl (Cardizem Cd) 360 mg PO DAILY [facility] Last Admin: 03/11/17 10:34 Dose: 360 mg Docusate Sodium (Colace) 100 mg PO BID [facility] Last Admin: 03/11/17 17:44 Dose: 100 mg Famotidine (Pepcid) 20 mg PO DAILY [facility] Last Admin: 03/11/17 10:41 Dose: 20 mg Finasteride (Proscar) 5 mg PO DAILY [facility] Last Admin: 03/11/17 10:36 Dose: 5 mg Gabapentin (Neurontin) 100 mg PO TID [facility] Last Admin: 03/11/17 17:45 Dose: 100 mg Ciprofloxacin (Cipro 400mg/200ml Dsw) 400 mg in 200 mls @ 133 mls/hr IVPB Q12H [facility] Last Admin: 03/11/17 20:41 Dose: 133 mls/hr Lactobacillus Acidophilus (Bacid Acidophilus) 1 cap PO BID [facility] Last Admin: 03/11/17 17:44 Dose: 1 cap Levetiracetam (Keppra) 500 mg PO BID [facility] Last Admin: 03/11/17 17:44 Dose: 500 mg Losartan Potassium (Cozaar) 25 mg PO DAILY [facility] Last Admin: 03/11/17 10:35 Dose: 25 mg Metoprolol Tartrate (Lopressor) 100 mg PO Q12 [facility] Last Admin: 03/11/17 21:30 Dose: 100 mg Morphine Sulfate (Morphine) 2 mg IVP Q4 PRN PRN Reason: Pain, severe (8-10) Last Admin: 03/11/17 10:45 Dose: 2 mg Ondansetron HCl (Zofran Inj) 4 mg IVP Q6 PRN PRN Reason: Nausea/Vomiting Oxycodone/Acetaminophen (Percocet 5/325 Mg Tab) 2 tab PO Q6H PRN PRN Reason: Pain, moderate (4-7) Stop: 03/13/17 09:07 Last Admin: 03/11/17 21:40 Dose: 2 tab Tamsulosin HCl (Flomax) 0.4 mg PO DAILY [facility] Last Admin: 03/11/17 10:35 Dose: 0.4 mg - Labs Labs: 03/11/17 07:34 03/11/17 07:34 PT 35.1 SECONDS (9.7-12.2) H* D 03/11/17 07:34 INR 3.0 03/11/17 07:34 APTT 28 SECONDS (21-34) D 03/09/17 11:30 - Additional Findings Additional findings: - Constitutional Appears: No Acute Distress - Head Exam Head Exam: NORMAL INSPECTION, NORMOCEPHALIC - Eye Exam Eye Exam: EOMI, Normal appearance, PERRL Pupil Exam: NORMAL ACCOMODATION - ENT Exam ENT Exam: Mucous Membranes Moist, Normal Exam - Respiratory Exam Respiratory Exam: Clear to Ausculation Bilateral, NORMAL BREATHING PATTERN. absent: Decreased Breath Sounds, Wheezes - Cardiovascular Exam Cardiovascular Exam: REGULAR RHYTHM, RRR, +S1, +S2 - GI/Abdominal Exam GI & Abdominal Exam: Soft, Normal Bowel Sounds. absent: Distended, Tenderness Additional comments: Bilateral Groin surgical site (from bilateral thrombectomies): mehran removed by Vascular Surgery and placed sutures. 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 Kaur) on the case-->help appreciated * Patient may restart Coumadin * pain: oxycodone/tylenol 2 tab PO Q 6H prn * Dilaudid mg IVP Q 3 PRN pain * Cardiology (Dr. Brown) on the case--> help appreciated * Family has been routinely updated regarding the progression and necrosis of the legs; and ultimately decided on 03/03/17 for surgery * s/p 02/05/17 Femoral embolectomy via groin incision, right and left with intraoperative angiograms-->bilateral femoral embolectomy by groin incision and angiography-->clot removed by the right lower extremity; no clot from the left. * S/P B/L AKA (03/04/17) * Pain medications: Morphine, percocet PRN * Bridged to Coumadin target INR 2.5- 3.5 * Coumadin 3mg PO QHS * Patient has mild surgical deshcience from 02/05/17 surgery--> mehran removed, and sutures--> Discussed with Dr Kaur 03/07 * Cultures: * Leg Right and Left (03/02/17): Serratia Marcescens and Enterococcus Faecalis * Blood cultures (03/07): no growth after 24 hours * Ampicillin 2gram IVPB Q 6 (active since 03/06/17) and Rocephin 1 gram IVPB daily (active since 03/06/17) ---> both DC on 03/11/17 and switched to Cipro. Due to the elevated LFTs, both ampicillin and rocephin are DC. Amipillin lowers the seizure threshold and considering this patient has a history of seizures, currently on keppra, this abx will be DC. * Started on Cipro 400mg IVP Q12H (03/11/17) Transaminitis * Secondary to Dilantin (which was changed to Keppra) ? secondary to Statin ( which is being held) ? secondary to Rocephin which he is currently on (along with ampicillin) for treatment of left leg wound + culture 03/02/17 and urine culture + 03/02/17 and 03/03/17 and Blood Culture + 03/02/17. * Crestor is being held considering the elevated LFTs and that his Lipid Profile is currently WNL. * Abdominal US: shows adenomyosis of gallbladder and other findings; will need outpatient follow-up with GI. * His Lipid profile and LFTs will need to be monitored by his PMD upon discharge. * Continuing to downtrend now that Crestor, Ampicillin and Rocephin were DC Sepsis --> --> resolved * Infectious Disease (Dr. Sarkar) on the case-->help appreciated * Vascular surgery (Dr. Kaur) on the case--->help appreciated * Code sepsis 03/03 * 03/04: C/w IV abx; Patient awaiting surgery with Dr. Kaur later today; Reverse INR with FFP X3 units prior to OR * SEPSIS RESOLVED * Started on Cipro 400mg IVP Q12H (03/11/17) * Cultures: * Urine Culture (03/03/17): Enterococcus Faecalis-->sensitive to Vancomycin and PCN * Blood cultures (03/03/17): No growth after 4 days X2 * Urine culture (03/02/17): Enterococcus Faecalis * Blood culture (03/02/17): Bacillus species * Blood Culture (03/02/17): no growth after 5 days * Leg Right and Left (03/02/17): Serratia Marcescens and Enterococcus Faecalis * Blood cultures (03/07): no growth after 24 hours * F/U repeat UC - patient will need to be straight cath Hx Atrial Fibrillation * Cardiology (Dr. Brown) on the case-->help appreciated * INR was reversed with 3 units of FFP and vitamin K prior to patient going for emergent surgery 03/04/17 * Currently on Coumadin 5mg PO QHS * Cardizem CD 360 mg PO 1x/day * Metoprolol 100 mg PO Q12H * Amiodarone 200mg PO BID Hx Seizure Disorder * Neurology Consult was ordered with Dr. Onesimo Hogan to see if patient could be switched over to Keppra. * Dr. Hogan has placed patient on Keppra 500 mg PO 2x/day * Patient's prior CT scans showing encephalomacia given history of multiple strokes in the past Hx Multiple CVAs * On Heparin drip being bridged to Coumadin * On seizure prophylaxis * On statin, aspirin, blood pressure to control - statin is placed on hold 2/2 transaminitis Enlarged prostate, Urinary Retention * Renal US: high postvoid residual and enlarged prostate. Nephrology started on Flomax 0.4mg PO daily and Proscar 5mg PO daily * 03/05: has urinary retention today; advised patient to straight cath; Lasix 20mg IV X1 * Will need to monitor urinary output Malignant Hypertension --> resolved * Log Buyer Dr. Brown 02/12/17 on board-->help appreciated * ASA 81mg PO daily * Cozaar 25mg PO daily * Cardizem CD 360 mg 1x/day * Metoprolol 100mg PO Q bid * CT Angiogram of the Abdomen/Pelvis 02/04/17 did NOT show any evidence of Renal Artery Stenosis Prophylaxis * Pepcid 20mg PO daily * Zofran 4mg IVP Q 6H PRN nausea * Heparin drip-->Coumadin; f/u INR * NS 100cc.hr * Colace 100mg PO BID * Florastor 250mg PO BID * PT/OT eval - [facility] - Daughter Pura would like patient to go to [facility] when Medicaid is approved. Awaiting Medicaid coverage for transfer to [facility]. Disposition: Daughter Pura would like patient to go to [facility] when Medicaid is approved. Awaiting Medicaid coverage for transfer to [facility]. Francisca Pimentel Dr. DO PGY-1 <Unruly Vines - Last Filed: 03/12/17 16:28> Objective - Vital Signs/Intake and Output Vital Signs (last 24 hours): Temp Pulse Resp BP Pulse Ox 97.8 F 67 20 112/68 100 03/12/17 15:00 03/12/17 15:00 03/12/17 15:00 03/12/17 15:00 03/12/17 15:00 Intake and Output: 03/12/17 03/12/17 06:59 18:59 Intake Total 600 1000 Output Total 750 Balance -150 1000 - Medications Medications: Current Medications Amiodarone HCl (Cordarone) 200 mg PO BID [facility] Last Admin: 03/12/17 10:17 Dose: 200 mg Aspirin (Aspirin Chewable) 81 mg PO DAILY [facility] Last Admin: 03/12/17 10:13 Dose: 81 mg Diltiazem HCl (Cardizem Cd) 360 mg PO DAILY [facility] Last Admin: 03/12/17 10:14 Dose: Not Given Docusate Sodium (Colace) 100 mg PO BID [facility] Last Admin: 03/12/17 10:15 Dose: 100 mg Famotidine (Pepcid) 20 mg PO DAILY [facility] Last Admin: 03/12/17 10:14 Dose: 20 mg Finasteride (Proscar) 5 mg PO DAILY [facility] Last Admin: 03/12/17 10:14 Dose: 5 mg Gabapentin (Neurontin) 200 mg PO TID [facility] Ciprofloxacin (Cipro 400mg/200ml Dsw) 400 mg in 200 mls @ 133 mls/hr IVPB Q12H [facility] Last Admin: 03/12/17 08:24 Dose: 133 mls/hr Lactobacillus Acidophilus (Bacid Acidophilus) 1 cap PO BID [facility] Last Admin: 03/12/17 10:14 Dose: 1 cap Levetiracetam (Keppra) 500 mg PO BID [facility] Last Admin: 03/12/17 10:14 Dose: 500 mg Losartan Potassium (Cozaar) 25 mg PO DAILY [facility] Last Admin: 03/12/17 10:14 Dose: 25 mg Metoprolol Tartrate (Lopressor) 100 mg PO Q12 [facility] Last Admin: 03/12/17 10:16 Dose: 100 mg Morphine Sulfate (Morphine) 2 mg IVP Q4 PRN PRN Reason: Pain, severe (8-10) Last Admin: 03/12/17 11:09 Dose: 2 mg Ondansetron HCl (Zofran Inj) 4 mg IVP Q6 PRN PRN Reason: Nausea/Vomiting Oxycodone/Acetaminophen (Percocet 5/325 Mg Tab) 2 tab PO Q6H PRN PRN Reason: Pain, moderate (4-7) Stop: 03/13/17 09:07 Last Admin: 03/11/17 21:40 Dose: 2 tab Tamsulosin HCl (Flomax) 0.4 mg PO DAILY [facility] Last Admin: 03/12/17 10:15 Dose: 0.4 mg - Labs Labs: 03/12/17 07:10 03/12/17 07:10 PT 41.9 SECONDS (9.7-12.2) H* D 03/12/17 07:10 INR 3.6 03/12/17 07:10 APTT 28 SECONDS (21-34) D 03/09/17 11:30 Attending/Attestation - Attestation I have personally seen and examined this patient.: Yes I have fully participated in the care of the patient.: Yes I have reviewed all pertinent clinical information, including history, physical exam and plan: Yes Notes (Text): 03/12/17 16:24 Patient was seen and examined at 11:45 AM 03/12/17. Exam, assessment and plan were thoroughly gone over with the resident. INR at 3.6 today and Coumadin was held for tonight. Will give 2.5 mg on evening 03/13/17. Unruly Vines D.O.
[2017-03-12 07:31] LABS: BASO % 0.2 % (0.0-2.0); EOS # 0.1 K/uL (0.0-0.7); EOS % 1.1 % (0.0-4.0); INR 3.6; LYMPH # 1.7 K/uL (1.0-4.3); LYMPH % 22.4 % (20.0-40.0); MEAN CORPUSCULAR HEMOGLOBIN 27.3 pg (27.0-31.0); MEAN CORPUSCULAR HGB CONC 34.1 g/dL (33.0-37.0); MEAN PLATELET VOLUME 8.2 fL (7.2-11.7); MONO # 0.5 K/uL (0.0-0.8); MONO % 6.1 % (0.0-10.0); NRBC % 0.2 % (0.0-2.0); RED CELL DISTRIBUTION WIDTH 16.8 % (11.5-14.5); WHITE BLOOD COUNT 7.4 K/uL (4.8-10.8)
[2017-03-12 08:12] LABS: CHLORIDE 98 mmol/L (98-107); POTASSIUM 3.9 mmol/L (3.6-5.2); SODIUM 131 mmol/L (132-148)
[2017-03-12 08:14] LABS: ALB/GLOB RATIO 0.7 (1.0-2.1); AST/SGOT 44 U/L (17-59); BILIRUBIN,TOTAL 0.4 mg/dL (0.2-1.3); BLOOD UREA NITROGEN 20 mg/dL (9-20); CARBON DIOXIDE 26 mmol/L (22-30); GFR AFRICAN-AMERICAN > 60; TOTAL PROTEIN 5.9 g/dL (6.3-8.3)
[2017-03-12 08:15] LABS: ALKALINE PHOSPHATASE 81 U/L (38-126); ALT/SGPT 74 U/L (21-72); CALCIUM 7.9 mg/dl (8.6-10.4); GLUCOSE,RANDOM 81 mg/dL (75-110)
[2017-03-12] MEDS: Ciprofloxacin 400mg/200ml D5W 400 MG/200 ML BAG IVPB SCH ×2 (08:24→19:57)
[2017-03-12] MEDS: diltiaZEM 180 mg/24 Hours CD Cap PO SCH (10:14)
[2017-03-12] MEDS: Lactobacillus Acidophilus 500 MU Cap PO SCH ×2 (10:14→17:50)
--- NOTE | 2017-03-12 11:45 | CP.PCM.PN ---
<CHRISSY PEARCE - Last Filed: 03/12/17 12:28> Subjective - Date & Time of Evaluation Date of Evaluation: 03/12/17 Time of Evaluation: 07:30 - Subjective Subjective: Chrissy Pearce DO PGY1 - Cardiology Progress Note for Dr. Brown Patient seen and examined at bedside. Patient is s/p b/l AKA. Patient is awake and alert, responding to questions appropriately. He denies any CP, SOB, palpitations. Appears comfortable. Objective - Vital Signs/Intake and Output Vital Signs (last 24 hours): Temp Pulse Resp BP Pulse Ox 98.4 F 67 20 116/68 97 03/12/17 07:32 03/12/17 10:15 03/12/17 10:15 03/12/17 10:15 03/12/17 07:32 Intake and Output: 03/12/17 03/12/17 06:59 18:59 Intake Total 600 200 Output Total 750 Balance -150 200 - Medications Medications: Current Medications Amiodarone HCl (Cordarone) 200 mg PO BID [facility] Last Admin: 03/12/17 10:17 Dose: 200 mg Aspirin (Aspirin Chewable) 81 mg PO DAILY [facility] Last Admin: 03/12/17 10:13 Dose: 81 mg Diltiazem HCl (Cardizem Cd) 360 mg PO DAILY [facility] Last Admin: 03/12/17 10:14 Dose: Not Given Docusate Sodium (Colace) 100 mg PO BID [facility] Last Admin: 03/12/17 10:15 Dose: 100 mg Famotidine (Pepcid) 20 mg PO DAILY [facility] Last Admin: 03/12/17 10:14 Dose: 20 mg Finasteride (Proscar) 5 mg PO DAILY [facility] Last Admin: 03/12/17 10:14 Dose: 5 mg Gabapentin (Neurontin) 100 mg PO TID [facility] Last Admin: 03/12/17 10:12 Dose: 100 mg Ciprofloxacin (Cipro 400mg/200ml Dsw) 400 mg in 200 mls @ 133 mls/hr IVPB Q12H [facility] Last Admin: 03/12/17 08:24 Dose: 133 mls/hr Lactobacillus Acidophilus (Bacid Acidophilus) 1 cap PO BID [facility] Last Admin: 03/12/17 10:14 Dose: 1 cap Levetiracetam (Keppra) 500 mg PO BID [facility] Last Admin: 03/12/17 10:14 Dose: 500 mg Losartan Potassium (Cozaar) 25 mg PO DAILY [facility] Last Admin: 03/12/17 10:14 Dose: 25 mg Metoprolol Tartrate (Lopressor) 100 mg PO Q12 [facility] Last Admin: 03/12/17 10:16 Dose: 100 mg Morphine Sulfate (Morphine) 2 mg IVP Q4 PRN PRN Reason: Pain, severe (8-10) Last Admin: 03/12/17 11:09 Dose: 2 mg Ondansetron HCl (Zofran Inj) 4 mg IVP Q6 PRN PRN Reason: Nausea/Vomiting Oxycodone/Acetaminophen (Percocet 5/325 Mg Tab) 2 tab PO Q6H PRN PRN Reason: Pain, moderate (4-7) Stop: 03/13/17 09:07 Last Admin: 03/11/17 21:40 Dose: 2 tab Tamsulosin HCl (Flomax) 0.4 mg PO DAILY [facility] Last Admin: 03/12/17 10:15 Dose: 0.4 mg - Labs Labs: 03/12/17 07:10 03/12/17 07:10 PT 41.9 SECONDS (9.7-12.2) H* D 03/12/17 07:10 INR 3.6 03/12/17 07:10 APTT 28 SECONDS (21-34) D 03/09/17 11:30 - Constitutional Appears: Non-toxic, No Acute Distress - Head Exam Head Exam: ATRAUMATIC, NORMOCEPHALIC - Eye Exam Eye Exam: EOMI, Normal appearance - ENT Exam ENT Exam: Mucous Membranes Moist - Neck Exam Neck Exam: Full ROM, Normal Inspection - Respiratory Exam Respiratory Exam: Clear to Ausculation Bilateral. absent: Rales, Rhonchi, Wheezes - Cardiovascular Exam Cardiovascular Exam: RRR, +S1, +S2 - GI/Abdominal Exam GI & Abdominal Exam: Soft. absent: Tenderness - Extremities Exam Additional comments: s/p b/l AKA - Neurological Exam Neurological Exam: Alert, Awake - Psychiatric Exam Psychiatric exam: Normal Affect, Normal Mood - Skin Skin Exam: Dry, Intact Assessment and Plan (1) NSVT (nonsustained ventricular tachycardia) Assessment & Plan: HR currently stable, with no tachycardia noted in past 24 hours Continue amiodarone, BB Status: Acute (2) Atrial fibrillation Assessment & Plan: Rate controlled Continue CCB, BB Currently slightly supratherapeutic on coumadin, received 3.5 mg yesterday; INR 3.6 today (Goal 2.5-3.5) Decrease coumadin to 3mg for today; Daily PT/INR Status: Acute (3) Critical lower limb ischemia Assessment & Plan: Patient is s/p b/l AKA Patient has history of PAD and initially presented with b/l lower limb ischemia L>R, s/p thrombectomy Anticoagulated on coumadin, as above Wound care following Status: Acute (4) HTN (hypertension), malignant Assessment & Plan: BP currently stable Continue PO cardizem, PO metroprolol Continue to monitor BP and titrate as needed Status: Acute - Assessment and Plan (Free Text) Plan: All cardiac issues addressed, and remain stable on current regimen Will sign off on this patient. If clinical status changes, please reconsult <Luis Brown - Last Filed: 04/09/17 14:57> Objective - Vital Signs/Intake and Output Vital Signs (last 24 hours): Temp Pulse Resp BP Pulse Ox 98.5 F 60 20 150/68 97 04/09/17 08:00 04/09/17 08:00 04/09/17 08:00 04/09/17 08:00 04/09/17 08:00 Intake and Output: 04/09/17 04/09/17 06:59 18:59 Intake Total 240 Output Total 300 800 Balance -60 -800 - Medications Medications: Current Medications Amiodarone HCl (Cordarone) 200 mg PO BID [facility] Last Admin: 04/09/17 09:34 Dose: 200 mg Aspirin (Ecotrin) 81 mg PO DAILY [facility] Last Admin: 04/09/17 09:34 Dose: 81 mg Bacitracin (Bacitracin) 0 gm TOP DAILY [facility] Last Admin: 04/09/17 09:46 Dose: 1 applic Diltiazem HCl (Cardizem Cd) 360 mg PO DAILY [facility] Last Admin: 04/09/17 09:35 Dose: 360 mg Docusate Sodium (Colace) 100 mg PO BID [facility] Last Admin: 04/09/17 09:34 Dose: 100 mg Famotidine (Pepcid) 20 mg PO DAILY [facility] Last Admin: 04/09/17 09:43 Dose: 20 mg Finasteride (Proscar) 5 mg PO DAILY [facility] Last Admin: 04/09/17 09:34 Dose: 5 mg Gabapentin (Neurontin) 300 mg PO TID [facility] Last Admin: 04/09/17 09:34 Dose: 300 mg Lactobacillus Acidophilus (Bacid Acidophilus) 1 cap PO BID [facility] Stop: 04/14/17 18:00 Last Admin: 04/09/17 09:35 Dose: 1 cap Levetiracetam (Keppra) 500 mg PO BID [facility] Last Admin: 04/09/17 09:34 Dose: 500 mg Losartan Potassium (Cozaar) 25 mg PO DAILY [facility] Last Admin: 04/09/17 09:34 Dose: 25 mg Rosuvastatin Calcium (Crestor) 5 mg PO HS [facility] Last Admin: 04/08/17 21:29 Dose: 5 mg Tamsulosin HCl (Flomax) 0.4 mg PO DAILY [facility] Last Admin: 04/09/17 09:34 Dose: 0.4 mg Vitamin A (Vitamin A & D Oint Ud Foilpak) 1 ea TOP BID [facility] Last Admin: 04/09/17 09:35 Dose: 1 ea Warfarin Sodium (Coumadin) 3 mg PO 1800 [facility] Stop: 04/09/17 18:01 - Labs Labs: 04/09/17 08:21 04/09/17 08:21 PT 28.6 SECONDS (9.7-12.2) H D 04/09/17 13:56 INR 2.4 D 04/09/17 13:56 APTT 38 SECONDS (21-34) H D 04/07/17 07:08 Assessment and Plan (1) NSVT (nonsustained ventricular tachycardia) Status: Acute (2) Atrial fibrillation Status: Acute (3) HTN (hypertension), malignant Status: Acute (4) Critical lower limb ischemia Status: Acute Attending/Attestation - Attestation I have personally seen and examined this patient.: Yes I have fully participated in the care of the patient.: Yes I have reviewed all pertinent clinical information, including history, physical exam and plan: Yes
--- NOTE | 2017-03-13 07:21 | CP.PCM.PN ---
<Gunnar Espinosaa - Last Filed: 03/13/17 09:09> Subjective - Date & Time of Evaluation Date of Evaluation: 03/13/17 Time of Evaluation: 07:00 - Subjective Subjective: Medicine Note for Dr. Yara Vines Patient was seen and examined at bedside. Patient reports he is in pain. Denied fever, chills, headache, SOB, chest pain, abdominal pain, n/v/d/c, or urinary symptoms. Objective - Vital Signs/Intake and Output Vital Signs (last 24 hours): Temp Pulse Resp BP Pulse Ox 98.4 F 66 20 110/71 98 03/13/17 00:00 03/13/17 00:00 03/13/17 00:00 03/13/17 00:00 03/13/17 00:00 Intake and Output: 03/13/17 03/13/17 06:59 18:59 Intake Total 600 Balance 600 - Medications Medications: Current Medications Amiodarone HCl (Cordarone) 200 mg PO BID [facility] Last Admin: 03/12/17 17:50 Dose: 200 mg Aspirin (Aspirin Chewable) 81 mg PO DAILY [facility] Last Admin: 03/12/17 10:13 Dose: 81 mg Diltiazem HCl (Cardizem Cd) 360 mg PO DAILY [facility] Last Admin: 03/12/17 10:14 Dose: Not Given Docusate Sodium (Colace) 100 mg PO BID [facility] Last Admin: 03/12/17 17:50 Dose: 100 mg Famotidine (Pepcid) 20 mg PO DAILY [facility] Last Admin: 03/12/17 10:14 Dose: 20 mg Finasteride (Proscar) 5 mg PO DAILY [facility] Last Admin: 03/12/17 10:14 Dose: 5 mg Gabapentin (Neurontin) 200 mg PO TID [facility] Last Admin: 03/12/17 17:50 Dose: 200 mg Ciprofloxacin (Cipro 400mg/200ml Dsw) 400 mg in 200 mls @ 133 mls/hr IVPB Q12H [facility] Last Admin: 03/12/17 19:57 Dose: 133 mls/hr Lactobacillus Acidophilus (Bacid Acidophilus) 1 cap PO BID [facility] Last Admin: 03/12/17 17:50 Dose: 1 cap Levetiracetam (Keppra) 500 mg PO BID [facility] Last Admin: 03/12/17 17:50 Dose: 500 mg Losartan Potassium (Cozaar) 25 mg PO DAILY [facility] Last Admin: 03/12/17 10:14 Dose: 25 mg Metoprolol Tartrate (Lopressor) 100 mg PO Q12 [facility] Last Admin: 03/12/17 21:23 Dose: Not Given Morphine Sulfate (Morphine) 2 mg IVP Q4 PRN PRN Reason: Pain, severe (8-10) Last Admin: 03/12/17 11:09 Dose: 2 mg Ondansetron HCl (Zofran Inj) 4 mg IVP Q6 PRN PRN Reason: Nausea/Vomiting Oxycodone/Acetaminophen (Percocet 5/325 Mg Tab) 2 tab PO Q6H PRN PRN Reason: Pain, moderate (4-7) Stop: 03/13/17 09:07 Last Admin: 03/11/17 21:40 Dose: 2 tab Tamsulosin HCl (Flomax) 0.4 mg PO DAILY [facility] Last Admin: 03/12/17 10:15 Dose: 0.4 mg - Labs Labs: 03/12/17 07:10 03/12/17 07:10 PT 41.9 SECONDS (9.7-12.2) H* D 03/12/17 07:10 INR 3.6 03/12/17 07:10 APTT 28 SECONDS (21-34) D 03/09/17 11:30 - Additional Findings Additional findings: - Constitutional Appears: No Acute Distress - Head Exam Head Exam: NORMAL INSPECTION, NORMOCEPHALIC - Eye Exam Eye Exam: EOMI, Normal appearance, PERRL Pupil Exam: NORMAL ACCOMODATION - ENT Exam ENT Exam: Mucous Membranes Moist, Normal Exam - Respiratory Exam Respiratory Exam: Clear to Ausculation Bilateral, NORMAL BREATHING PATTERN. absent: Decreased Breath Sounds, Wheezes - Cardiovascular Exam Cardiovascular Exam: REGULAR RHYTHM, RRR, +S1, +S2 - GI/Abdominal Exam GI & Abdominal Exam: Soft, Normal Bowel Sounds. absent: Distended, Tenderness Additional comments: Bilateral Groin surgical site (from bilateral thrombectomies): mehran removed by Vascular Surgery and placed sutures. 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 Kaur) on the case-->help appreciated * Patient may restart Coumadin * pain: oxycodone/tylenol 2 tab PO Q 6H prn * Dilaudid mg IVP Q 3 PRN pain * Cardiology (Dr. Brown) on the case--> help appreciated * Family has been routinely updated regarding the progression and necrosis of the legs; and ultimately decided on 03/03/17 for surgery * s/p 02/05/17 Femoral embolectomy via groin incision, right and left with intraoperative angiograms-->bilateral femoral embolectomy by groin incision and angiography-->clot removed by the right lower extremity; no clot from the left. * S/P B/L AKA (03/04/17) * Pain medications: Morphine, percocet PRN * Bridged to Coumadin target INR 2.5- 3.5 * Coumadin was held last night due to INR of 3.6, today INR is 2.8, COUMADIN 2.5mg PO QHS will be given tonight * Patient has mild surgical deshcience from 02/05/17 surgery--> mehran removed, and sutures--> Discussed with Dr Kaur 03/07 * Cultures: * Leg Right and Left (03/02/17): Serratia Marcescens and Enterococcus Faecalis * Blood cultures (03/07): no growth after 24 hours * Ampicillin 2gram IVPB Q 6 (active since 03/06/17) and Rocephin 1 gram IVPB daily (active since 03/06/17) ---> both DC on 03/11/17 and switched to Cipro. Due to the elevated LFTs, both ampicillin and rocephin are DC. Amipillin lowers the seizure threshold and considering this patient has a history of seizures, currently on keppra, this abx will be DC. * Started on Cipro 400mg IVP Q12H (03/11/17), as per ID recommended total course for ?? days. Last dose will be tonight 03/13/17 * Gabapentin 200mg PO TID, goal of 300mg PO TID for his neuropathy Transaminitis * Secondary to Dilantin (which was changed to Keppra) ? secondary to Statin ( which is being held) ? secondary to Rocephin which he is currently on (along with ampicillin) for treatment of left leg wound + culture 03/02/17 and urine culture + 03/02/17 and 03/03/17 and Blood Culture + 03/02/17. * Crestor is being held considering the elevated LFTs and that his Lipid Profile is currently WNL. * Abdominal US: shows adenomyosis of gallbladder and other findings; will need outpatient follow-up with GI. * His Lipid profile and LFTs will need to be monitored by his PMD upon discharge. * Continuing to downtrend now that Crestor, Ampicillin and Rocephin were DC Sepsis --> --> resolved * Infectious Disease (Dr. Sarkar) on the case-->help appreciated * Vascular surgery (Dr. Kaur) on the case--->help appreciated * Code sepsis 03/03 * 03/04: C/w IV abx; Patient awaiting surgery with Dr. Kaur later today; Reverse INR with FFP X3 units prior to OR * SEPSIS RESOLVED * Started on Cipro 400mg IVP Q12H (03/11/17) * Cultures: * Urine Culture (03/03/17): Enterococcus Faecalis-->sensitive to Vancomycin and PCN * Blood cultures (03/03/17): No growth after 4 days X2 * Urine culture (03/02/17): Enterococcus Faecalis * Blood culture (03/02/17): Bacillus species * Blood Culture (03/02/17): no growth after 5 days * Leg Right and Left (03/02/17): Serratia Marcescens and Enterococcus Faecalis * Blood cultures (03/07): no growth after 24 hours * Repeat UC - no growth Hx Atrial Fibrillation * Cardiology (Dr. Brown) on the case-->help appreciated * INR was reversed with 3 units of FFP and vitamin K prior to patient going for emergent surgery 03/04/17 * Currently on Coumadin 5mg PO QHS * Cardizem CD 360 mg PO 1x/day * Metoprolol 100 mg PO Q12H * Amiodarone 200mg PO BID Hx Seizure Disorder * Neurology Consult was ordered with Dr. Onesimo Hogan to see if patient could be switched over to Keppra. * Dr. Hogan has placed patient on Keppra 500 mg PO 2x/day * Patient's prior CT scans showing encephalomacia given history of multiple strokes in the past Hx Multiple CVAs * On Heparin drip being bridged to Coumadin * On seizure prophylaxis * On statin, aspirin, blood pressure to control - statin is placed on hold 2/2 transaminitis Enlarged prostate, Urinary Retention * Renal US: high postvoid residual and enlarged prostate. Nephrology started on Flomax 0.4mg PO daily and Proscar 5mg PO daily * 03/05: has urinary retention today; advised patient to straight cath; Lasix 20mg IV X1 * Will need to monitor urinary output Malignant Hypertension --> resolved * [employer] Dr. Brown 02/12/17 on board-->help appreciated * ASA 81mg PO daily * Cozaar 25mg PO daily * Cardizem CD 360 mg 1x/day * Metoprolol 100mg PO Q bid * CT Angiogram of the Abdomen/Pelvis 02/04/17 did NOT show any evidence of Renal Artery Stenosis Prophylaxis * Pepcid 20mg PO daily * Zofran 4mg IVP Q 6H PRN nausea * Heparin drip-->Coumadin; f/u INR * NS 100cc.hr * Colace 100mg PO BID * Florastor 250mg PO BID * PT/OT eval - [facility] - [facility]. Awaiting Medicaid coverage for transfer to [facility]. Disposition: [facility] would [facility] Medicaid is approved. Awaiting Medicaid coverage for transfer to [facility]. Francisca Pimentel Dr. DO PGY-1 <Unruly Vines - Last Filed: 03/13/17 17:08> Objective - Vital Signs/Intake and Output Vital Signs (last 24 hours): Temp Pulse Resp BP Pulse Ox 98.1 F 66 20 102/60 96 03/13/17 16:19 03/13/17 16:19 03/13/17 16:19 03/13/17 16:19 03/13/17 16:19 Intake and Output: 03/13/17 03/13/17 06:59 18:59 Intake Total 600 860 Balance 600 860 - Medications Medications: Current Medications Amiodarone HCl (Cordarone) 200 mg PO BID [facility] Last Admin: 03/13/17 09:53 Dose: 200 mg Aspirin (Aspirin Chewable) 81 mg PO DAILY [facility] Last Admin: 03/13/17 09:53 Dose: 81 mg Diltiazem HCl (Cardizem Cd) 360 mg PO DAILY [facility] Last Admin: 03/13/17 09:54 Dose: 360 mg Docusate Sodium (Colace) 100 mg PO BID [facility] Last Admin: 03/13/17 09:53 Dose: 100 mg Famotidine (Pepcid) 20 mg PO DAILY [facility] Last Admin: 03/13/17 09:53 Dose: 20 mg Finasteride (Proscar) 5 mg PO DAILY [facility] Last Admin: 03/13/17 09:54 Dose: 5 mg Gabapentin (Neurontin) 200 mg PO TID [facility] Last Admin: 03/13/17 13:53 Dose: 200 mg Ciprofloxacin (Cipro 400mg/200ml Dsw) 400 mg in 200 mls @ 133 mls/hr IVPB Q12H [facility] Stop: 03/13/17 23:00 Last Admin: 03/13/17 08:13 Dose: 133 mls/hr Lactobacillus Acidophilus (Bacid Acidophilus) 1 cap PO BID [facility] Last Admin: 03/13/17 09:54 Dose: 1 cap Levetiracetam (Keppra) 500 mg PO BID [facility] Last Admin: 03/13/17 09:53 Dose: 500 mg Losartan Potassium (Cozaar) 25 mg PO DAILY [facility] Last Admin: 03/13/17 09:54 Dose: 25 mg Metoprolol Tartrate (Lopressor) 100 mg PO Q12 [facility] Last Admin: 03/13/17 09:53 Dose: 100 mg Morphine Sulfate (Morphine) 2 mg IVP Q4 PRN PRN Reason: Pain, severe (8-10) Last Admin: 03/13/17 09:58 Dose: 2 mg Ondansetron HCl (Zofran Inj) 4 mg IVP Q6 PRN PRN Reason: Nausea/Vomiting Oxycodone/Acetaminophen (Percocet 5/325 Mg Tab) 2 tab PO Q6H PRN PRN Reason: Pain, moderate (4-7) Stop: 03/16/17 08:45 Tamsulosin HCl (Flomax) 0.4 mg PO DAILY [facility] Last Admin: 03/13/17 09:53 Dose: 0.4 mg Warfarin Sodium (Coumadin) 2.5 mg PO 1800 [facility] Stop: 03/13/17 18:01 - Labs Labs: 03/13/17 11:29 03/13/17 11:29 PT 32.5 SECONDS (9.7-12.2) H* D 03/13/17 07:01 INR 2.8 D 03/13/17 07:01 APTT 28 SECONDS (21-34) D 03/09/17 11:30 Attending/Attestation - Attestation I have personally seen and examined this patient.: Yes I have fully participated in the care of the patient.: Yes I have reviewed all pertinent clinical information, including history, physical exam and plan: Yes Notes (Text): 03/13/17 17:06 Patient was seen and examined at 8 AM 03/13/17. Exam, assessment and plan were thoroughly gone over with the resident. INR is 2.8. Coumadin 2.5 mg PO x 1 dose tonight. Unruly Vines D.O.
[2017-03-13 07:29] LABS: INR 2.8
[2017-03-13] MEDS: Ciprofloxacin 400mg/200ml D5W 400 MG/200 ML BAG IVPB SCH ×2 (08:13→21:00)
[2017-03-13] MEDS ORDERED: Oxycodone/Acetaminophen 5/325 mg Tab PO PRN (08:44)
[2017-03-13] MEDS: diltiaZEM 180 mg/24 Hours CD Cap PO SCH (09:54)
[2017-03-13] MEDS: Lactobacillus Acidophilus 500 MU Cap PO SCH ×2 (09:54→18:21)
[2017-03-13 11:37] LABS: BASO % 0.2 % (0.0-2.0); EOS % 0.5 % (0.0-4.0); HEMATOCRIT 31.8 % (35.0-51.0); LYMPH # 1.4 K/uL (1.0-4.3); LYMPH % 19.4 % (20.0-40.0); MEAN CELL VOLUME 79.7 fL (80.0-94.0); MEAN CORPUSCULAR HEMOGLOBIN 27.1 pg (27.0-31.0); MEAN CORPUSCULAR HGB CONC 34.1 g/dL (33.0-37.0); MEAN PLATELET VOLUME 8.1 fL (7.2-11.7); MONO # 0.4 K/uL (0.0-0.8); MONO % 5.4 % (0.0-10.0); RED CELL DISTRIBUTION WIDTH 17.2 % (11.5-14.5); WHITE BLOOD COUNT 7.4 K/uL (4.8-10.8)
[2017-03-13 12:01] LABS: CHLORIDE 100 mmol/L (98-107); SODIUM 132 mmol/L (132-148)
[2017-03-13 12:03] LABS: AST/SGOT 31 U/L (17-59); BILIRUBIN,TOTAL 0.4 mg/dL (0.2-1.3); CARBON DIOXIDE 24 mmol/L (22-30); GFR AFRICAN-AMERICAN > 60
[2017-03-13 12:04] LABS: ALB/GLOB RATIO 0.8 (1.0-2.1); ALKALINE PHOSPHATASE 82 U/L (38-126); ALT/SGPT 69 U/L (21-72); BLOOD UREA NITROGEN 17 mg/dL (9-20); CALCIUM 8.1 mg/dl (8.6-10.4); GLUCOSE,RANDOM 86 mg/dL (75-110); PHOSPHOROUS 3.1 mg/dL (2.5-4.5)
[2017-03-13 12:05] LABS: MAGNESIUM 1.9 mg/dL (1.6-2.3)
--- NOTE | 2017-03-13 18:09 | CP.PCM.PN ---
Subjective - Date & Time of Evaluation Date of Evaluation: 03/13/17 Time of Evaluation: 08:00 - Subjective Subjective: events noted wounds healing discussed on rounds Objective - Vital Signs/Intake and Output Vital Signs (last 24 hours): Temp Pulse Resp BP Pulse Ox 98.1 F 66 20 102/60 96 03/13/17 16:19 03/13/17 16:19 03/13/17 16:19 03/13/17 16:19 03/13/17 16:19 Intake and Output: 03/13/17 03/13/17 06:59 18:59 Intake Total 600 860 Balance 600 860 - Medications Medications: Current Medications Amiodarone HCl (Cordarone) 200 mg PO BID [facility] Last Admin: 03/13/17 09:53 Dose: 200 mg Aspirin (Aspirin Chewable) 81 mg PO DAILY [facility] Last Admin: 03/13/17 09:53 Dose: 81 mg Diltiazem HCl (Cardizem Cd) 360 mg PO DAILY [facility] Last Admin: 03/13/17 09:54 Dose: 360 mg Docusate Sodium (Colace) 100 mg PO BID [facility] Last Admin: 03/13/17 09:53 Dose: 100 mg Famotidine (Pepcid) 20 mg PO DAILY [facility] Last Admin: 03/13/17 09:53 Dose: 20 mg Finasteride (Proscar) 5 mg PO DAILY [facility] Last Admin: 03/13/17 09:54 Dose: 5 mg Gabapentin (Neurontin) 200 mg PO TID [facility] Last Admin: 03/13/17 13:53 Dose: 200 mg Ciprofloxacin (Cipro 400mg/200ml Dsw) 400 mg in 200 mls @ 133 mls/hr IVPB Q12H [facility] Stop: 03/13/17 23:00 Last Admin: 03/13/17 08:13 Dose: 133 mls/hr Lactobacillus Acidophilus (Bacid Acidophilus) 1 cap PO BID [facility] Last Admin: 03/13/17 09:54 Dose: 1 cap Levetiracetam (Keppra) 500 mg PO BID [facility] Last Admin: 03/13/17 09:53 Dose: 500 mg Losartan Potassium (Cozaar) 25 mg PO DAILY [facility] Last Admin: 03/13/17 09:54 Dose: 25 mg Metoprolol Tartrate (Lopressor) 100 mg PO Q12 [facility] Last Admin: 03/13/17 09:53 Dose: 100 mg Morphine Sulfate (Morphine) 2 mg IVP Q4 PRN PRN Reason: Pain, severe (8-10) Last Admin: 03/13/17 09:58 Dose: 2 mg Ondansetron HCl (Zofran Inj) 4 mg IVP Q6 PRN PRN Reason: Nausea/Vomiting Oxycodone/Acetaminophen (Percocet 5/325 Mg Tab) 2 tab PO Q6H PRN PRN Reason: Pain, moderate (4-7) Stop: 03/16/17 08:45 Tamsulosin HCl (Flomax) 0.4 mg PO DAILY [facility] Last Admin: 03/13/17 09:53 Dose: 0.4 mg - Labs Labs: 03/13/17 11:29 03/13/17 11:29 PT 32.5 SECONDS (9.7-12.2) H* D 03/13/17 07:01 INR 2.8 D 03/13/17 07:01 APTT 28 SECONDS (21-34) D 03/09/17 11:30 - Constitutional Appears: Non-toxic, Chronically Ill - Head Exam Head Exam: NORMOCEPHALIC - Eye Exam Eye Exam: PERRL. absent: Scleral icterus - ENT Exam ENT Exam: Mucous Membranes Dry - Neck Exam Neck Exam: absent: Lymphadenopathy - Respiratory Exam Respiratory Exam: Decreased Breath Sounds - Cardiovascular Exam Cardiovascular Exam: REGULAR RHYTHM - GI/Abdominal Exam GI & Abdominal Exam: Distended - Rectal Exam Rectal Exam: Deferred Assessment and Plan (1) Critical lower limb ischemia Status: Acute - Assessment and Plan (Free Text) Assessment: ok to d/c antibiotics cont wound care
[2017-03-14 06:41] LABS: INR 2.1
[2017-03-14] MEDS: Lactobacillus Acidophilus 500 MU Cap PO SCH ×2 (09:18→17:58)
[2017-03-14] MEDS: diltiaZEM 180 mg/24 Hours CD Cap PO SCH (09:19)
--- NOTE | 2017-03-14 11:15 | CP.PCM.PN ---
Subjective - Date & Time of Evaluation Date of Evaluation: 03/14/17 Time of Evaluation: 11:00 - Subjective Subjective: Hospitalist Progress Note Patient was seen and examined at 11:00 AM 02/12/17. 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 He underwent bilateral thrombectomy on 02/05/17. The status of his bilateral lower legs worsened subsequently ( formation of bullae and sloughing of skin and these extremities cool to the touch and intense pain with minor palpation). Cultures from the bilateral lower legs revealed Serratia marcescens and Enterococcus faecalis. Blood Culture was positive for Bacillus species and Urine Cultures positive for Enterococcus faecalis. Because of the likelihood of sepsis, family decided on amputation. 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 Family has completed Medicaid Application and awaiting approval for [facility] placement. Currently upon FULL ROS: Patient states that he gets a dry cough every now and then NO other complaints upon FULL ROS Exam: General: Awake and Alert, NAD HEENT: NCA, EOMI, PERRLA, NO lymphadenopathy, NO thyromegaly, NO pharyngeal erythema/exudate Cardio: NS1 and NS2, NO M/R/G Respiratory: CTA B/L, NO R/R/W GI: BSx4, Soft, Central Obesity therefore Liver and Spleen could not be adequately palpated, NO guarding/rebound tenderness Ext: Bilateral Pulses UE are strong and equal, Capillary Refill is 2 seconds in the bilateral UE Bilateral AKA surgical site: surgical neo are in place, NO wound dehiscence Skin: no sacral ulcers and no ulcers noted on any of the indigo prominences, Bilateral Groin surgical site (from bilateral thrombectomies): neo removed by Vascular Surgery and placed sutures that will be removed by them in 3 weeks from today. NO wound dehiscence Neuro: CN II through XII are grossly intact Assessments and Plan: 1). PAD S/P Bilateral AKA 03/04/17 Coumadin 4 mg PO x 1 dose tonight 03/14/17 as INR is 2.1 Goal INR is 2.5 to 3.[address] Brown Neo to Surgical Site to removed when Ok with Vascular Surgery Dr. Kaur Morphine 1 mg IV Q4H PRN Moderate Pain Morphine 2 mg IV Q4H PRN Severe Pain Gabapentin 200 mg PO 3x/day Medicine Team please make sure to keep in touch with Vascular Surgery concerning removal of sutures from the bilateral groin area in 3 weeks 2). Hx Malignant HTN Metoprolol 100 mg PO Q12H Cardizem 360 mg PO 1x/day Cozaar 25 mg PO 1x/day 3). Hx Sepsis * Urine Culture (03/03/17): Enterococcus Faecalis-->sensitive to Vancomycin and PCN * Blood cultures (03/03/17): No growth at 5 days * Urine culture (03/02/17): Enterococcus Faecalis * Blood culture (03/02/17): Bacillus species * Blood Culture (03/02/17): no growth after 5 days * Leg Right and Left (03/02/17): Serratia Marcescens and Enterococcus Faecalis * Repeat Blood Culture (03/07): Negative at 5 days * Repeat Urine Culture (04/06): NO growth Patient was treated with Ampicillin and Rocephin through 03/11/17. He was switched to Ciprofloxicin on 03/11/17 and this was discontinued by ID on 03/13/17. 4). Hx Atrial Fibrillation Amiodarone 200 mg PO 2x/day Metoprolol 100 mg PO Q12H Cardizem 360 mg PO 1x/day 5). Hx Seizure Disorder Because of Elevated LFTs his Dilantin was discontinued and Neurology Dr. Onesimo Hogan started him on Keppra 500 mg PO 2x/day 6). Hx Multiple CVAs Crestor is being held considering the elevated LFTs and that his Lipid Profile is currently WNL. Repeat Lipid Panel in 1 month to see where we are with this. ASA 81 mg PO 1x/day Keep the blood pressure under control 7). Hx Elevated LFTs Could have been secondary to the Dilantin and the Crestor. The Crestor is being held and the Dilantin was switched over to Keppra. The LFTs have normalized as of 03/14/17 8). Hx Elevated WBC Normalized Likely secondary to the Sepsis as mentioned above NO fevers Vitals are stable 9). Hx Enlarged Prostate and Urinary Retention Proscar 5 mg PO 1x/day Flomax 0.4 mg PO 1x/day 10). Anemia Likely Secondary to Chronic Disease HgB/Hct are stable 11). Prophylaxis Colace 100 mg PO 2x/day Pepcid 20 mg PO 1x/day Bacid 1 cap PO 2x/day with STOP on 04/14/17 Zofran 4 mg IV Q6H PRN N/V DVT Prophylaxis: he is on coumadin Daughter Pura would like patient to go to [facility] for [facility] once Medicaid is approved. She will also have to follow up with [facility] concerning possible prosthesis for the lower legs. Unruly Vines D.O. Objective - Vital Signs/Intake and Output Vital Signs (last 24 hours): Temp Pulse Resp BP Pulse Ox 98.3 F 66 20 128/69 98 03/14/17 08:05 03/14/17 08:05 03/14/17 08:05 03/14/17 08:05 03/14/17 08:05 Intake and Output: 03/14/17 03/14/17 06:59 18:59 Intake Total 650 Output Total 300 Balance 350 - Medications Medications: Current Medications Amiodarone HCl (Cordarone) 200 mg PO BID [facility] Last Admin: 03/14/17 09:19 Dose: 200 mg Aspirin (Aspirin Chewable) 81 mg PO DAILY [facility] Last Admin: 03/14/17 09:18 Dose: 81 mg Diltiazem HCl (Cardizem Cd) 360 mg PO DAILY [facility] Last Admin: 03/14/17 09:19 Dose: 360 mg Docusate Sodium (Colace) 100 mg PO BID [facility] Last Admin: 03/14/17 09:19 Dose: 100 mg Famotidine (Pepcid) 20 mg PO DAILY [facility] Last Admin: 03/14/17 09:21 Dose: 20 mg Finasteride (Proscar) 5 mg PO DAILY [facility] Last Admin: 03/14/17 09:21 Dose: 5 mg Gabapentin (Neurontin) 200 mg PO TID [facility] Last Admin: 03/14/17 09:20 Dose: 200 mg Lactobacillus Acidophilus (Bacid Acidophilus) 1 cap PO BID [facility] Last Admin: 03/14/17 09:18 Dose: 1 cap Levetiracetam (Keppra) 500 mg PO BID [facility] Last Admin: 03/14/17 09:20 Dose: 500 mg Losartan Potassium (Cozaar) 25 mg PO DAILY [facility] Last Admin: 03/14/17 09:19 Dose: 25 mg Metoprolol Tartrate (Lopressor) 100 mg PO Q12 [facility] Last Admin: 03/14/17 09:20 Dose: 100 mg Morphine Sulfate (Morphine) 2 mg IVP Q4 PRN PRN Reason: Pain, severe (8-10) Last Admin: 03/14/17 09:42 Dose: 2 mg Ondansetron HCl (Zofran Inj) 4 mg IVP Q6 PRN PRN Reason: Nausea/Vomiting Oxycodone/Acetaminophen (Percocet 5/325 Mg Tab) 2 tab PO Q6H PRN PRN Reason: Pain, moderate (4-7) Stop: 03/16/17 08:45 Tamsulosin HCl (Flomax) 0.4 mg PO DAILY [facility] Last Admin: 03/14/17 09:20 Dose: 0.4 mg Warfarin Sodium (Coumadin) 4 mg PO 1800 [facility] Stop: 03/14/17 18:01 - Labs Labs: 03/13/17 11:29 03/13/17 11:29 PT 24.0 SECONDS (9.7-12.2) H D 03/14/17 06:25 INR 2.1 D 03/14/17 06:25 APTT 28 SECONDS (21-34) D 03/09/17 11:30
[2017-03-15 07:14] LABS: INR 1.9
--- NOTE | 2017-03-15 08:53 | CP.PCM.PN ---
Subjective - Date & Time of Evaluation Date of Evaluation: 03/15/17 Time of Evaluation: 08:40 - Subjective Subjective: Hospitalist Progress Note Patient was seen and examined at 8:40 AM 03/15/17. 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 He underwent bilateral thrombectomy on 02/05/17. The status of his bilateral lower legs worsened subsequently ( formation of bullae and sloughing of skin and these extremities cool to the touch and intense pain with minor palpation). Cultures from the bilateral lower legs revealed Serratia marcescens and Enterococcus faecalis. Blood Culture was positive for Bacillus species and Urine Cultures positive for Enterococcus faecalis. Because of the likelihood of sepsis, family decided on amputation. 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 Family has completed Medicaid Application and awaiting approval for [facility] placement. Currently upon FULL ROS: Patient states that he gets a dry cough every now and then NO other complaints upon FULL ROS Exam: General: Awake and Alert, NAD HEENT: NCA, EOMI, PERRLA, NO lymphadenopathy, NO thyromegaly, NO pharyngeal erythema/exudate Cardio: NS1 and NS2, NO M/R/G Respiratory: CTA B/L, NO R/R/W GI: BSx4, Soft, Central Obesity therefore Liver and Spleen could not be adequately palpated, NO guarding/rebound tenderness Ext: Bilateral Pulses UE are strong and equal, Capillary Refill is 2 seconds in the bilateral UE Bilateral AKA surgical site: surgical neo are in place, NO wound dehiscence Skin: no sacral ulcers and no ulcers noted on any of the indigo prominences, Bilateral Groin surgical site (from bilateral thrombectomies): neo removed by Vascular Surgery and placed sutures that will be removed by them in 3 weeks from today. NO wound dehiscence Neuro: CN II through XII are grossly intact Assessments and Plan: 1). PAD S/P Bilateral AKA 03/04/17 Coumadin 5 mg PO x 1 dose tonight 03/15/17 as INR is 1.9 Goal INR is 2.5 to 3.[address] Brown Neo to Surgical Site to removed when Ok with Vascular Surgery Dr. Kaur Morphine 1 mg IV Q4H PRN Moderate Pain Morphine 2 mg IV Q4H PRN Severe Pain Gabapentin 200 mg PO 3x/day Medicine Team please make sure to keep in touch with Vascular Surgery concerning removal of sutures from the bilateral groin area in 3 weeks 2). Hx Malignant HTN B/P running on the low end, continue to monitor. Patient is asymptomatic Metoprolol 100 mg PO Q12H Cardizem 360 mg PO 1x/day Cozaar 25 mg PO 1x/day 3). Hx Sepsis * Urine Culture (03/03/17): Enterococcus Faecalis-->sensitive to Vancomycin and PCN * Blood cultures (03/03/17): No growth at 5 days * Urine culture (03/02/17): Enterococcus Faecalis * Blood culture (03/02/17): Bacillus species * Blood Culture (03/02/17): no growth after 5 days * Leg Right and Left (03/02/17): Serratia Marcescens and Enterococcus Faecalis * Repeat Blood Culture (03/07): Negative at 5 days * Repeat Urine Culture (04/06): NO growth Patient was treated with Ampicillin and Rocephin through 03/11/17. He was switched to Ciprofloxicin on 03/11/17 and this was discontinued by ID on 03/13/17. 4). Hx Atrial Fibrillation Amiodarone 200 mg PO 2x/day Metoprolol 100 mg PO Q12H Cardizem 360 mg PO 1x/day 5). Hx Seizure Disorder Because of Elevated LFTs his Dilantin was discontinued and Neurology Dr. Onesimo Hogan started him on Keppra 500 mg PO 2x/day 6). Hx Multiple CVAs Crestor is being held considering the elevated LFTs and that his Lipid Profile is currently WNL. Repeat Lipid Panel in 1 month to see where we are with this. ASA 81 mg PO 1x/day Keep the blood pressure under control 7). Hx Elevated LFTs Could have been secondary to the Dilantin and the Crestor. The Crestor is being held and the Dilantin was switched over to Keppra. The LFTs have normalized as of 03/14/17 8). Hx Elevated WBC Normalized Likely secondary to the Sepsis as mentioned above NO fevers Vitals are stable 9). Hx Enlarged Prostate and Urinary Retention Proscar 5 mg PO 1x/day Flomax 0.4 mg PO 1x/day 10). Anemia Likely Secondary to Chronic Disease HgB/Hct are stable 11). Prophylaxis Colace 100 mg PO 2x/day Pepcid 20 mg PO 1x/day Bacid 1 cap PO 2x/day with STOP on 04/14/17 Zofran 4 mg IV Q6H PRN N/V DVT Prophylaxis: he is on coumadin Daughter Pura would like patient to go to [facility] for [facility] once Medicaid is approved. She will also have to follow up with [facility] concerning possible prosthesis for the lower legs. Unruly Vines D.O. Objective - Vital Signs/Intake and Output Vital Signs (last 24 hours): Temp Pulse Resp BP Pulse Ox 98.4 F 52 L 20 94/53 L 97 03/15/17 00:24 03/15/17 00:24 03/15/17 00:24 03/15/17 00:24 03/15/17 00:24 Intake and Output: 03/15/17 03/15/17 06:59 18:59 Intake Total 480 Balance 480 - Medications Medications: Current Medications Amiodarone HCl (Cordarone) 200 mg PO BID [facility] Last Admin: 03/14/17 18:09 Dose: 200 mg Aspirin (Aspirin Chewable) 81 mg PO DAILY [facility] Last Admin: 03/14/17 09:18 Dose: 81 mg Diltiazem HCl (Cardizem Cd) 360 mg PO DAILY [facility] Last Admin: 03/14/17 09:19 Dose: 360 mg Docusate Sodium (Colace) 100 mg PO BID [facility] Last Admin: 03/14/17 17:58 Dose: 100 mg Famotidine (Pepcid) 20 mg PO DAILY [facility] Last Admin: 03/14/17 09:21 Dose: 20 mg Finasteride (Proscar) 5 mg PO DAILY [facility] Last Admin: 03/14/17 09:21 Dose: 5 mg Gabapentin (Neurontin) 200 mg PO TID [facility] Last Admin: 03/14/17 17:58 Dose: 200 mg Lactobacillus Acidophilus (Bacid Acidophilus) 1 cap PO BID [facility] Stop: 04/14/17 18:00 Last Admin: 03/14/17 17:58 Dose: 1 cap Levetiracetam (Keppra) 500 mg PO BID [facility] Last Admin: 03/14/17 17:59 Dose: 500 mg Losartan Potassium (Cozaar) 25 mg PO DAILY [facility] Last Admin: 03/14/17 09:19 Dose: 25 mg Metoprolol Tartrate (Lopressor) 100 mg PO Q12 [facility] Last Admin: 03/14/17 22:16 Dose: Not Given Morphine Sulfate (Morphine) 2 mg IVP Q4 PRN PRN Reason: Pain, severe (8-10) Last Admin: 03/15/17 05:30 Dose: 2 mg Morphine Sulfate (Morphine) 1 mg IVP Q4 PRN PRN Reason: Pain, moderate (4-7) Ondansetron HCl (Zofran Inj) 4 mg IVP Q6 PRN PRN Reason: Nausea/Vomiting Oxycodone/Acetaminophen (Percocet 5/325 Mg Tab) 2 tab PO Q6H PRN PRN Reason: Pain, moderate (4-7) Stop: 03/16/17 08:45 Tamsulosin HCl (Flomax) 0.4 mg PO DAILY [facility] Last Admin: 03/14/17 09:20 Dose: 0.4 mg - Labs Labs: 03/13/17 11:29 03/13/17 11:29 PT 22.1 SECONDS (9.7-12.2) H 03/15/17 07:01 INR 1.9 03/15/17 07:01 APTT 28 SECONDS (21-34) D 03/09/17 11:30
[2017-03-15] MEDS: diltiaZEM 180 mg/24 Hours CD Cap PO SCH (09:28)
[2017-03-15] MEDS: Lactobacillus Acidophilus 500 MU Cap PO SCH ×2 (09:28→17:49)
[2017-03-16 07:08] LABS: INR 2.3
--- NOTE | 2017-03-16 07:42 | CP.PCM.PN ---
<Gunnar Espinosaa - Last Filed: 03/16/17 07:33> Subjective - Date & Time of Evaluation Date of Evaluation: 03/16/17 Time of Evaluation: 07:00 - Subjective Subjective: Medicine Note for Dr. Skinner Patient was seen and examined at bedside. Patient reports he is in pain. Denied fever, chills, headache, SOB, chest pain, abdominal pain, n/v/d/c, or urinary symptoms. Objective - Vital Signs/Intake and Output Vital Signs (last 24 hours): Temp Pulse Resp BP Pulse Ox 98.2 F 62 20 106/62 99 03/16/17 00:00 03/16/17 00:00 03/16/17 00:00 03/16/17 00:00 03/16/17 00:00 Intake and Output: 03/16/17 03/16/17 06:59 18:59 Intake Total 300 Balance 300 - Medications Medications: Current Medications Amiodarone HCl (Cordarone) 200 mg PO BID [facility] Last Admin: 03/15/17 18:00 Dose: Not Given Aspirin (Aspirin Chewable) 81 mg PO DAILY [facility] Last Admin: 03/15/17 09:28 Dose: 81 mg Diltiazem HCl (Cardizem Cd) 360 mg PO DAILY [facility] Last Admin: 03/15/17 09:28 Dose: 360 mg Docusate Sodium (Colace) 100 mg PO BID [facility] Last Admin: 03/15/17 17:50 Dose: 100 mg Famotidine (Pepcid) 20 mg PO DAILY [facility] Last Admin: 03/15/17 09:30 Dose: 20 mg Finasteride (Proscar) 5 mg PO DAILY [facility] Last Admin: 03/15/17 09:30 Dose: 5 mg Gabapentin (Neurontin) 300 mg PO TID [facility] Lactobacillus Acidophilus (Bacid Acidophilus) 1 cap PO BID [facility] Stop: 04/14/17 18:00 Last Admin: 03/15/17 17:49 Dose: 1 cap Levetiracetam (Keppra) 500 mg PO BID [facility] Last Admin: 03/15/17 17:50 Dose: 500 mg Losartan Potassium (Cozaar) 25 mg PO DAILY [facility] Last Admin: 03/15/17 09:29 Dose: 25 mg Metoprolol Tartrate (Lopressor) 100 mg PO Q12 [facility] Last Admin: 03/15/17 21:09 Dose: 100 mg Morphine Sulfate (Morphine) 2 mg IVP Q4 PRN PRN Reason: Pain, severe (8-10) Last Admin: 03/15/17 22:26 Dose: 2 mg Morphine Sulfate (Morphine) 1 mg IVP Q4 PRN PRN Reason: Pain, moderate (4-7) Ondansetron HCl (Zofran Inj) 4 mg IVP Q6 PRN PRN Reason: Nausea/Vomiting Oxycodone/Acetaminophen (Percocet 5/325 Mg Tab) 2 tab PO Q6H PRN PRN Reason: Pain, moderate (4-7) Stop: 03/16/17 08:45 Tamsulosin HCl (Flomax) 0.4 mg PO DAILY [facility] Last Admin: 03/15/17 09:29 Dose: 0.4 mg - Labs Labs: 03/13/17 11:29 03/13/17 11:29 PT 26.3 SECONDS (9.7-12.2) H 03/16/17 06:53 INR 2.3 03/16/17 06:53 APTT 28 SECONDS (21-34) D 03/09/17 11:30 - Additional Findings Additional findings: - Constitutional Appears: No Acute Distress - Head Exam Head Exam: NORMAL INSPECTION, NORMOCEPHALIC - Eye Exam Eye Exam: EOMI, Normal appearance, PERRL Pupil Exam: NORMAL ACCOMODATION - ENT Exam ENT Exam: Mucous Membranes Moist, Normal Exam - Respiratory Exam Respiratory Exam: Clear to Ausculation Bilateral, NORMAL BREATHING PATTERN. absent: Decreased Breath Sounds, Wheezes - Cardiovascular Exam Cardiovascular Exam: REGULAR RHYTHM, RRR, +S1, +S2 - GI/Abdominal Exam GI & Abdominal Exam: Soft, Normal Bowel Sounds. absent: Distended, Tenderness Additional comments: Bilateral Groin surgical site (from bilateral thrombectomies): neo removed by Vascular Surgery and placed sutures. 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 He underwent bilateral thrombectomy on 02/05/17. The status of his bilateral lower legs worsened subsequently ( formation of bullae and sloughing of skin and these extremities cool to the touch and intense pain with minor palpation). Cultures from the bilateral lower legs revealed Serratia marcescens and Enterococcus faecalis. Blood Culture was positive for Bacillus species and Urine Cultures positive for Enterococcus faecalis. Because of the likelihood of sepsis, family decided on amputation. 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 Family has completed Medicaid Application and awaiting approval for [facility] placement. Plan: Severe PAD; Critical Limb Ischemia s/p b/l AKA on 03/04/17 * Vascular surgery (Dr. Kaur) on the case-->help appreciated * Patient may restart Coumadin * pain: oxycodone/tylenol 2 tab PO Q 6H prn * Dilaudid mg IVP Q 3 PRN pain * Cardiology (Dr. Brown) on the case--> help appreciated * Family has been routinely updated regarding the progression and necrosis of the legs; and ultimately decided on 03/03/17 for surgery * s/p 02/05/17 Femoral embolectomy via groin incision, right and left with intraoperative angiograms--> bilateral femoral embolectomy by groin incision and angiography-->clot removed by the right lower extremity; no clot from the left. * S/P B/L AKA (03/04/17) * Pain medications: Morphine, percocet PRN * Bridged to Coumadin target INR 2.5- 3.5 * INR 2.3 today we will continue Coumadin 5mg PO QHS * Patient has mild surgical deshcience from 02/05/17 surgery--> neo removed, and sutures--> Discussed with Dr Kaur 03/07 * Cultures: * Leg Right and Left (03/02/17): Serratia Marcescens and Enterococcus Faecalis * Blood cultures (03/07): no growth after 24 hours * Ampicillin 2gram IVPB Q 6 (active since 03/06/17) and Rocephin 1 gram IVPB daily (active since 03/06/17) ---> both DC on 03/11/17 and switched to Cipro. Due to the elevated LFTs, both ampicillin and rocephin are DC. Amipillin lowers the seizure threshold and considering this patient has a history of seizures, currently on keppra, this abx will be DC. * Started on Cipro 400mg IVP Q12H (03/11/17), as per ID recommended Last dose was on 03/13/17. * Gabapentin 200mg PO TID, goal of 300mg PO TID for his neuropathy Transaminitis * Secondary to Dilantin (which was changed to Keppra) ? secondary to Statin ( which is being held) ? secondary to Rocephin which he is currently on (along with ampicillin) for treatment of left leg wound + culture 03/02/17 and urine culture + 03/02/17 and 03/03/17 and Blood Culture + 03/02/17. * Crestor is being held considering the elevated LFTs and that his Lipid Profile is currently WNL. * Abdominal US: shows adenomyosis of gallbladder and other findings; will need outpatient follow-up with GI. * His Lipid profile and LFTs will need to be monitored by his PMD upon discharge. * Continuing to downtrend now that Crestor, Ampicillin and Rocephin were DC Hx Atrial Fibrillation * Cardiology (Dr. Brown) on the case-->help appreciated * INR was reversed with 3 units of FFP and vitamin K prior to patient going for emergent surgery 03/04/17 * Currently on Coumadin 5mg PO QHS * Cardizem CD 360 mg PO 1x/day * Metoprolol 100 mg PO Q12H * Amiodarone 200mg PO BID Hx Seizure Disorder * Neurology Consult was ordered with Dr. Onesimo Hogan to see if patient could be switched over to Keppra. * Dr. Hogan has placed patient on Keppra 500 mg PO 2x/day * Patient's prior CT scans showing encephalomacia given history of multiple strokes in the past Hx Multiple CVAs * On Heparin drip being bridged to Coumadin * On seizure prophylaxis * On statin, aspirin, blood pressure to control - statin is placed on hold 2/2 transaminitis Enlarged prostate, Urinary Retention * Renal US: high postvoid residual and enlarged prostate. Nephrology started on Flomax 0.4mg PO daily and Proscar 5mg PO daily * 03/05: has urinary retention today; advised patient to straight cath; Lasix 20mg IV X1 * Will need to monitor urinary output Anemia Likely Secondary to Chronic Disease HgB/Hct are stable Sepsis --> --> resolved * Infectious Disease (Dr. Sarkar) on the case-->help appreciated * Vascular surgery (Dr. Kaur) on the case--->help appreciated * Code sepsis 03/03 * 03/04: C/w IV abx; Patient awaiting surgery with Dr. Kaur later today; Reverse INR with FFP X3 units prior to OR * SEPSIS RESOLVED * Started on Cipro 400mg IVP Q12H (03/11/17) * Cultures: * Urine Culture (03/03/17): Enterococcus Faecalis-->sensitive to Vancomycin and PCN * Blood cultures (03/03/17): No growth after 4 days X2 * Urine culture (03/02/17): Enterococcus Faecalis * Blood culture (03/02/17): Bacillus species * Blood Culture (03/02/17): no growth after 5 days * Leg Right and Left (03/02/17): Serratia Marcescens and Enterococcus Faecalis * Blood cultures (03/07): no growth after 24 hours * Repeat UC - no growth Malignant Hypertension --> resolved * [employer] Dr. Brown 02/12/17 on board-->help appreciated * ASA 81mg PO daily * Cozaar 25mg PO daily * Cardizem CD 360 mg 1x/day * Metoprolol 100mg PO Q bid * CT Angiogram of the Abdomen/Pelvis 02/04/17 did NOT show any evidence of Renal Artery Stenosis Prophylaxis * Pepcid 20mg PO daily * Zofran 4mg IVP Q 6H PRN nausea * Heparin drip-->Coumadin; f/u INR * NS 100cc.hr * Colace 100mg PO BID * Florastor 250mg PO BID * PT/OT eval - [facility] - Daughter Pura would like patient to go to [facility] when Medicaid is approved. Awaiting Medicaid coverage for transfer to [facility]. Disposition: Daughter Pura would like patient to go to [facility] when Medicaid is approved. Awaiting Medicaid coverage for transfer to [facility]. She will also have to follow up with [facility] concerning possible prosthesis for the lower legs. DW Francisca Deras DO PGY-1 <Alexandra Skinner V - Last Filed: 03/16/17 18:04> Objective - Vital Signs/Intake and Output Vital Signs (last 24 hours): Temp Pulse Resp BP Pulse Ox 97.5 F L 63 20 124/73 98 03/16/17 09:00 03/16/17 09:00 03/16/17 09:00 03/16/17 09:00 03/16/17 09:00 Intake and Output: 03/16/17 03/16/17 06:59 18:59 Intake Total 300 700 Output Total 600 Balance 300 100 - Medications Medications: Current Medications Amiodarone HCl (Cordarone) 200 mg PO BID [facility] Last Admin: 03/16/17 09:09 Dose: 200 mg Aspirin (Aspirin Chewable) 81 mg PO DAILY [facility] Last Admin: 03/16/17 09:07 Dose: 81 mg Diltiazem HCl (Cardizem Cd) 360 mg PO DAILY [facility] Last Admin: 03/16/17 09:08 Dose: 360 mg Docusate Sodium (Colace) 100 mg PO BID [facility] Last Admin: 03/16/17 09:08 Dose: 100 mg Famotidine (Pepcid) 20 mg PO DAILY [facility] Last Admin: 03/16/17 09:11 Dose: 20 mg Finasteride (Proscar) 5 mg PO DAILY [facility] Last Admin: 03/16/17 09:11 Dose: 5 mg Gabapentin (Neurontin) 300 mg PO TID [facility] Last Admin: 03/16/17 13:48 Dose: 300 mg Lactobacillus Acidophilus (Bacid Acidophilus) 1 cap PO BID [facility] Stop: 04/14/17 18:00 Last Admin: 03/16/17 09:07 Dose: 1 cap Levetiracetam (Keppra) 500 mg PO BID [facility] Last Admin: 03/16/17 09:10 Dose: 500 mg Losartan Potassium (Cozaar) 25 mg PO DAILY [facility] Last Admin: 03/16/17 09:09 Dose: 25 mg Metoprolol Tartrate (Lopressor) 100 mg PO Q12 [facility] Last Admin: 03/16/17 09:10 Dose: 100 mg Morphine Sulfate (Morphine) 2 mg IVP Q4 PRN PRN Reason: Pain, severe (8-10) Last Admin: 03/16/17 10:16 Dose: 2 mg Morphine Sulfate (Morphine) 1 mg IVP Q4 PRN PRN Reason: Pain, moderate (4-7) Last Admin: 03/16/17 13:55 Dose: 1 mg Ondansetron HCl (Zofran Inj) 4 mg IVP Q6 PRN PRN Reason: Nausea/Vomiting Tamsulosin HCl (Flomax) 0.4 mg PO DAILY [facility] Last Admin: 03/16/17 09:09 Dose: 0.4 mg Warfarin Sodium (Coumadin) 5 mg PO 1800 [facility] Stop: 03/16/17 18:01 - Labs Labs: 03/16/17 11:23 03/16/17 11:23 PT 26.3 SECONDS (9.7-12.2) H 03/16/17 06:53 INR 2.3 03/16/17 06:53 APTT 28 SECONDS (21-34) D 03/09/17 11:30 Attending/Attestation - Attestation I have personally seen and examined this patient.: Yes I have fully participated in the care of the patient.: Yes I have reviewed all pertinent clinical information, including history, physical exam and plan: Yes Notes (Text): patient seen, examined, and case discussed with day-time resident. Patient seen this afternoon. No family at bedside. Patient denies acute complaints. Patient's b/l AKA: clean/dry/intact; [place] present in both stumps Patient's INR at 2.3, to be given coumadin tonight, f/u INR in AM. Assessment/ Plan 1). PAD S/P Bilateral AKA 03/04/17 * Vascular Surgery (Dr. Kaur) on the case help appreciated * Cardiology (Dr. Brown) on the case help appreciated * Coumadin 5 mg PO x 1 dose tonight, INR: 2.3 * Goal INR is 2.5 to 3.[address] Brown * Neo to Surgical Site to removed when Ok with Vascular Surgery Dr. Kaur * Morphine 2 mg IV Q4H PRN Severe Pain * Gabapentin 300 mg PO 3x/day 2). Hx Malignant HTN * B/P running on the low end, continue to monitor. Patient is asymptomatic * Metoprolol 100 mg PO Q12H * Cardizem 360 mg PO 1x/day * Cozaar 25 mg PO 1x/day 3). Hx Sepsis * Secondary to gangrenous bilateral legs, +blood culture * Urine Culture (03/03/17): Enterococcus Faecalis-->sensitive to Vancomycin and PCN * Blood cultures (03/03/17): No growth at 5 days * Urine culture (03/02/17): Enterococcus Faecalis * Blood culture (03/02/17): Bacillus species * Blood Culture (03/02/17): no growth after 5 days * Leg Right and Left (03/02/17): Serratia Marcescens and Enterococcus Faecalis * Repeat Blood Culture (03/07): Negative at 5 days * Repeat Urine Culture (04/06): NO growth * Patient was treated with Ampicillin and Rocephin through 03/11/17. He was switched to Ciprofloxicin on 03/11/17 and this was discontinued by ID on 03/13/17. 4). Hx Atrial Fibrillation * Amiodarone 200 mg PO 2x/day * Metoprolol 100 mg PO Q12H * Cardizem 360 mg PO 1x/day * Coumadin 5 mg PO x 1 dose tonight, INR: 2.3 5). Hx Seizure Disorder * Because of Elevated LFTs his Dilantin was discontinued and Neurology Dr. Onesimo Hogan started him on Keppra 500 mg PO 2x/day 6). Hx Multiple CVAs * Crestor is being held considering the elevated LFTs and that his Lipid Profile is currently WNL. * Repeat Lipid Panel in 1 month to see where we are with this. * ASA 81 mg PO 1x/day * Keep the blood pressure under control 7). Hx Elevated LFTs * Could have been secondary to the Dilantin and the Crestor. The Crestor is being held and the Dilantin was switched over to Keppra. * The LFTs have normalized as of 03/14/17 8). Hx Elevated WBC * Normalized * Likely secondary to the Sepsis as mentioned above * NO fevers * Vitals are stable 9). Hx Enlarged Prostate and Urinary Retention * Proscar 5 mg PO 1x/day * Flomax 0.4 mg PO 1x/day 10). Anemia Likely Secondary to Chronic Disease * HgB/Hct are stable 11). Prophylaxis * Colace 100 mg PO 2x/day * Pepcid 20 mg PO 1x/day * Bacid 1 cap PO 2x/day with STOP on 04/14/17 * Zofran 4 mg IV Q6H PRN N/V * DVT Prophylaxis: he is on coumadin Disposition: Patient is pending [employer] approval. Daughter requests for [facility] for [facility].
[2017-03-16] MEDS: Lactobacillus Acidophilus 500 MU Cap PO SCH ×2 (09:07→18:28)
[2017-03-16] MEDS: diltiaZEM 180 mg/24 Hours CD Cap PO SCH (09:08)
[2017-03-16 11:32] LABS: BASO % 0.4 % (0.0-2.0); EOS % 0.6 % (0.0-4.0); HEMATOCRIT 32.7 % (35.0-51.0); LYMPH # 1.6 K/uL (1.0-4.3); LYMPH % 24.6 % (20.0-40.0); MEAN CELL VOLUME 80.9 fL (80.0-94.0); MEAN CORPUSCULAR HEMOGLOBIN 27.4 pg (27.0-31.0); MEAN CORPUSCULAR HGB CONC 33.9 g/dL (33.0-37.0); MEAN PLATELET VOLUME 7.6 fL (7.2-11.7); MONO # 0.2 K/uL (0.0-0.8); MONO % 3.5 % (0.0-10.0); NRBC % 0.1 % (0.0-2.0); WHITE BLOOD COUNT 6.6 K/uL (4.8-10.8)
[2017-03-16 11:47] LABS: CHLORIDE 102 mmol/L (98-107)
[2017-03-16 11:48] LABS: POTASSIUM 3.8 mmol/L (3.6-5.2); SODIUM 133 mmol/L (132-148)
[2017-03-16 11:50] LABS: ALB/GLOB RATIO 0.7 (1.0-2.1); ALKALINE PHOSPHATASE 84 U/L (38-126); AST/SGOT 21 U/L (17-59); BILIRUBIN,TOTAL 0.3 mg/dL (0.2-1.3); CARBON DIOXIDE 22 mmol/L (22-30); GFR AFRICAN-AMERICAN > 60; TOTAL PROTEIN 6.2 g/dL (6.3-8.3)
[2017-03-16 11:51] LABS: ALT/SGPT 49 U/L (21-72); BLOOD UREA NITROGEN 18 mg/dL (9-20); CALCIUM 8.3 mg/dl (8.6-10.4); GLUCOSE,RANDOM 126 mg/dL (75-110); MAGNESIUM 1.9 mg/dL (1.6-2.3); PHOSPHOROUS 3.3 mg/dL (2.5-4.5)
[2017-03-16] MEDS ORDERED: Sodium Chloride 0.9% 1,000 ML IV ONE (22:16)
[2017-03-17 06:36] LABS: INR 2.8
[2017-03-17] MEDS: Lactobacillus Acidophilus 500 MU Cap PO SCH ×2 (10:04→17:25)
[2017-03-17] MEDS: diltiaZEM 180 mg/24 Hours CD Cap PO SCH (10:04)
--- NOTE | 2017-03-17 14:40 | CP.PCM.PN ---
<Palak Espinosa - Last Filed: 03/17/17 14:36> Subjective - Date & Time of Evaluation Date of Evaluation: 03/17/17 Time of Evaluation: 09:00 - Subjective Subjective: Medicine Note for Dr. Skinner Patient was seen and examined at bedside. Patient reports he is in pain. Denied fever, chills, headache, SOB, chest pain, abdominal pain, n/v/d/c, or urinary symptoms. Objective - Vital Signs/Intake and Output Vital Signs (last 24 hours): Temp Pulse Resp BP Pulse Ox 98.5 F 78 20 123/72 97 03/17/17 08:00 03/17/17 08:00 03/17/17 08:00 03/17/17 08:00 03/17/17 08:00 Intake and Output: 03/17/17 03/17/17 06:59 18:59 Intake Total 1200 Output Total 200 400 Balance 1000 -400 - Medications Medications: Current Medications Amiodarone HCl (Cordarone) 200 mg PO BID [facility] Last Admin: 03/17/17 09:59 Dose: 200 mg Aspirin (Aspirin Chewable) 81 mg PO DAILY [facility] Last Admin: 03/17/17 09:58 Dose: 81 mg Diltiazem HCl (Cardizem Cd) 360 mg PO DAILY [facility] Last Admin: 03/17/17 10:04 Dose: 360 mg Docusate Sodium (Colace) 100 mg PO BID [facility] Last Admin: 03/17/17 09:58 Dose: 100 mg Famotidine (Pepcid) 20 mg PO DAILY [facility] Last Admin: 03/17/17 09:59 Dose: 20 mg Finasteride (Proscar) 5 mg PO DAILY [facility] Last Admin: 03/17/17 10:04 Dose: 5 mg Gabapentin (Neurontin) 300 mg PO TID [facility] Last Admin: 03/17/17 14:01 Dose: 300 mg Lactobacillus Acidophilus (Bacid Acidophilus) 1 cap PO BID [facility] Stop: 04/14/17 18:00 Last Admin: 03/17/17 10:04 Dose: 1 cap Levetiracetam (Keppra) 500 mg PO BID [facility] Last Admin: 03/17/17 09:59 Dose: 500 mg Losartan Potassium (Cozaar) 25 mg PO DAILY [facility] Last Admin: 03/17/17 09:59 Dose: 25 mg Metoprolol Tartrate (Lopressor) 100 mg PO Q12 [facility] Last Admin: 03/17/17 09:59 Dose: 100 mg Morphine Sulfate (Morphine) 2 mg IVP Q4 PRN PRN Reason: Pain, severe (8-10) Last Admin: 03/16/17 10:16 Dose: 2 mg Ondansetron HCl (Zofran Inj) 4 mg IVP Q6 PRN PRN Reason: Nausea/Vomiting Tamsulosin HCl (Flomax) 0.4 mg PO DAILY [facility] Last Admin: 03/17/17 09:58 Dose: 0.4 mg Warfarin Sodium (Coumadin) 5 mg PO 1800 [facility] Stop: 03/17/17 18:01 - Labs Labs: 03/16/17 11:23 03/16/17 11:23 PT 33.0 SECONDS (9.7-12.2) H* D 03/17/17 06:25 INR 2.8 D 03/17/17 06:25 APTT 28 SECONDS (21-34) D 03/09/17 11:30 - Additional Findings Additional findings: - Constitutional Appears: No Acute Distress - Head Exam Head Exam: NORMAL INSPECTION, NORMOCEPHALIC - Eye Exam Eye Exam: EOMI, Normal appearance, PERRL Pupil Exam: NORMAL ACCOMODATION - ENT Exam ENT Exam: Mucous Membranes Moist, Normal Exam - Respiratory Exam Respiratory Exam: Clear to Ausculation Bilateral, NORMAL BREATHING PATTERN. absent: Decreased Breath Sounds, Wheezes - Cardiovascular Exam Cardiovascular Exam: REGULAR RHYTHM, RRR, +S1, +S2 - GI/Abdominal Exam GI & Abdominal Exam: Soft, Normal Bowel Sounds. absent: Distended, Tenderness Additional comments: Bilateral Groin surgical site (from bilateral thrombectomies): neo removed by Vascular Surgery and placed sutures. 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 He underwent bilateral thrombectomy on 02/05/17. The status of his bilateral lower legs worsened subsequently ( formation of bullae and sloughing of skin and these extremities cool to the touch and intense pain with minor palpation). Cultures from the bilateral lower legs revealed Serratia marcescens and Enterococcus faecalis. Blood Culture was positive for Bacillus species and Urine Cultures positive for Enterococcus faecalis. Because of the likelihood of sepsis, family decided on amputation. 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 Family has completed Medicaid Application and awaiting approval for [facility] placement. Plan: Severe PAD; Critical Limb Ischemia Vascular surgery (Dr. Kaur) on the case-->help appreciated * Patient may restart Coumadin * pain: oxycodone/tylenol 2 tab PO Q 6H prn * Dilaudid mg IVP Q 3 PRN pain * Cardiology (Dr. Brown) on the case--> help appreciated * Family has been routinely updated regarding the progression and necrosis of the legs; and ultimately decided on 03/03/17 for surgery * s/p 02/05/17 Femoral embolectomy via groin incision, right and left with intraoperative angiograms--> bilateral femoral embolectomy by groin incision and angiography-->clot removed by the right lower extremity; no clot from the left. S/P B/L AKA (03/04/17) * Patient has mild surgical deshcience from 02/05/17 surgery--> neo removed, and sutures--> Discussed with Dr Kaur 03/07 * Bridged to Coumadin target INR 2.5- 3.5 * INR 2.3 today we will continue Coumadin 5mg PO QHS * Gabapentin 300mg PO TID for his neuropathy * Pain medications: Morphine, percocet PRN Anemia Likely Secondary to Chronic Disease HgB/Hct are stable Enlarged prostate, Urinary Retention * Renal US: high postvoid residual and enlarged prostate. Nephrology started on Flomax 0.4mg PO daily and Proscar 5mg PO daily * 03/05: has urinary retention today; advised patient to straight cath; Lasix 20mg IV X1 * Will need to monitor urinary output Hx Atrial Fibrillation * Cardiology (Dr. Brown) on the case-->help appreciated * INR was reversed with 3 units of FFP and vitamin K prior to patient going for emergent surgery 03/04/17 * Currently on Coumadin 5mg PO QHS * Cardizem CD 360 mg PO 1x/day * Metoprolol 100 mg PO Q12H * Amiodarone 200mg PO BID Hx Seizure Disorder * Neurology Consult was ordered with Dr. Onesimo Hogan to see if patient could be switched over to Keppra. * Dr. Hogan has placed patient on Keppra 500 mg PO 2x/day * Patient's prior CT scans showing encephalomacia given history of multiple strokes in the past Hx Multiple CVAs * On Heparin drip being bridged to Coumadin * On seizure prophylaxis * On statin, aspirin, blood pressure to control - statin is placed on hold 2/2 transaminitis Hx of Sepsis during this Admission --> resolved * Infectious Disease (Dr. Sarkar) on the case-->help appreciated * Vascular surgery (Dr. Kaur) on the case--->help appreciated * Code sepsis 03/03 * 03/04: C/w IV abx; Patient awaiting surgery with Dr. Kaur later today; Reverse INR with FFP X3 units prior to OR * Started on Cipro 400mg IVP Q12H (03/11/17) * Cultures: * Leg Right and Left (03/02/17): Serratia Marcescens and Enterococcus Faecalis * Ampicillin 2gram IVPB Q 6 (active since 03/06/17) and Rocephin 1 gram IVPB daily (active since 03/06/17) ---> both DC on 03/11/17 and switched to Cipro. Due to the elevated LFTs, both ampicillin and rocephin are DC. Amipillin lowers the seizure threshold and considering this patient has a history of seizures, currently on keppra, this abx will be DC. * Started on Cipro 400mg IVP Q12H (03/11/17), as per ID recommended Last dose was on 03/13/17. * Blood cultures (03/07): no growth after 24 hours * Repeat UC 03/10/17 - no growth Malignant Hypertension --> resolved * Straightening Machine Operator Dr. Brown 02/12/17 on board-->help appreciated * ASA 81mg PO daily * Cozaar 25mg PO daily * Cardizem CD 360 mg 1x/day * Metoprolol 100mg PO Q bid * CT Angiogram of the Abdomen/Pelvis 02/04/17 did NOT show any evidence of Renal Artery Stenosis Prophylaxis * Pepcid 20mg PO daily * Zofran 4mg IVP Q 6H PRN nausea * Heparin drip--> Coumadin; f/u INR * Colace 100mg PO BID * Florastor 250mg PO BID * PT/OT eval Disposition: Daughter Pura would like patient to go to [facility] when Medicaid is approved. Awaiting Medicaid coverage for transfer to [facility]. She will also have to follow up with [facility] concerning possible prosthesis for the lower legs. DW Francisca Deras DO PGY-1 <Alexandra Skinner V - Last Filed: 03/18/17 01:12> Objective - Vital Signs/Intake and Output Vital Signs (last 24 hours): Temp Pulse Resp BP Pulse Ox 97 F L 72 20 131/71 97 03/17/17 15:00 03/17/17 21:45 03/17/17 15:00 03/17/17 21:45 03/17/17 16:17 Intake and Output: 03/17/17 03/18/17 18:59 06:59 Intake Total 480 1200 Output Total 400 Balance 80 1200 - Medications Medications: Current Medications Amiodarone HCl (Cordarone) 200 mg PO BID [facility] Last Admin: 03/17/17 17:27 Dose: Not Given Aspirin (Aspirin Chewable) 81 mg PO DAILY [facility] Last Admin: 03/17/17 09:58 Dose: 81 mg Diltiazem HCl (Cardizem Cd) 360 mg PO DAILY [facility] Last Admin: 03/17/17 10:04 Dose: 360 mg Docusate Sodium (Colace) 100 mg PO BID [facility] Last Admin: 03/17/17 17:24 Dose: 100 mg Famotidine (Pepcid) 20 mg PO DAILY [facility] Last Admin: 03/17/17 09:59 Dose: 20 mg Finasteride (Proscar) 5 mg PO DAILY [facility] Last Admin: 03/17/17 10:04 Dose: 5 mg Gabapentin (Neurontin) 300 mg PO TID [facility] Last Admin: 03/17/17 17:24 Dose: 300 mg Lactobacillus Acidophilus (Bacid Acidophilus) 1 cap PO BID [facility] Stop: 04/14/17 18:00 Last Admin: 03/17/17 17:25 Dose: 1 cap Levetiracetam (Keppra) 500 mg PO BID [facility] Last Admin: 03/17/17 17:25 Dose: 500 mg Losartan Potassium (Cozaar) 25 mg PO DAILY [facility] Last Admin: 03/17/17 09:59 Dose: 25 mg Morphine Sulfate (Morphine) 2 mg IVP Q4 PRN PRN Reason: Pain, severe (8-10) Last Admin: 03/16/17 10:16 Dose: 2 mg Ondansetron HCl (Zofran Inj) 4 mg IVP Q6 PRN PRN Reason: Nausea/Vomiting Tamsulosin HCl (Flomax) 0.4 mg PO DAILY [facility] Last Admin: 03/17/17 09:58 Dose: 0.4 mg - Labs Labs: 03/16/17 11:23 03/16/17 11:23 PT 33.0 SECONDS (9.7-12.2) H* D 03/17/17 06:25 INR 2.8 D 03/17/17 06:25 APTT 28 SECONDS (21-34) D 03/09/17 11:30 Attending/Attestation - Attestation I have personally seen and examined this patient.: Yes I have fully participated in the care of the patient.: Yes I have reviewed all pertinent clinical information, including history, physical exam and plan: Yes Notes (Text): This is late computer entry for 03/17/2017 patient seen, examined, and case discussed with day-time resident. Patient seen this afternoon. Patient's at bedside. Patient denies acute complaints. Patient's b/l AKA: clean/dry/intact; Neo present in both stumps Patient's INR at 2.8, to be given coumadin tonight, f/u INR in AM. In the afternoon, patient's blood pressure noted to hypotensive; asymptomatic; given fluid bolus; and held Lopressor 100mg PO Q12. Will need to monitor blood pressure Assessment/ Plan 1). PAD S/P Bilateral AKA 03/04/17 * Vascular Surgery (Dr. Kaur) on the case help appreciated * Cardiology (Dr. Brown) on the case help appreciated * Coumadin tonight, INR: 2.8 * Goal INR is 2.5 to 3.[address] Brown * Neo to Surgical Site to removed when Ok with Vascular Surgery Dr. Kaur * Morphine 2 mg IV Q4H PRN Severe Pain * Gabapentin 300 mg PO 3x/day 2). Hx Malignant HTN * B/P running on the low end, continue to monitor. Patient is asymptomatic * Held Metoprolol 100 mg PO Q12H in light of hypotension; given fluid bolus on 03/17 * Cardizem 360 mg PO 1x/day * Cozaar 25 mg PO 1x/day 3). Hx Sepsis * Secondary to gangrenous bilateral legs, +blood culture code sepsis called on * Urine Culture (03/03/17): Enterococcus Faecalis-->sensitive to Vancomycin and PCN * Blood cultures (03/03/17): No growth at 5 days * Urine culture (03/02/17): Enterococcus Faecalis * Blood culture (03/02/17): Bacillus species * Blood Culture (03/02/17): no growth after 5 days * Leg Right and Left (03/02/17): Serratia Marcescens and Enterococcus Faecalis * Repeat Blood Culture (03/07): Negative at 5 days * Repeat Urine Culture (04/06): NO growth * Patient was treated with Ampicillin and Rocephin through 03/11/17. He was switched to Ciprofloxicin on 03/11/17 and this was discontinued by ID on 03/13/17. 4). Hx Atrial Fibrillation * Amiodarone 200 mg PO 2x/day * held Metoprolol 100 mg PO Q12H secondary to hypotension * Cardizem 360 mg PO 1x/day * Coumadin 5 mg PO x 1 dose tonight, INR: 2.8 5). Hx Seizure Disorder * Because of Elevated LFTs his Dilantin was discontinued and Neurology Dr. Onesimo Hogan started him on Keppra 500 mg PO 2x/day 6). Hx Multiple CVAs * Crestor is being held considering the elevated LFTs and that his Lipid Profile is currently WNL. * Repeat Lipid Panel in 1 month to see where we are with this. * ASA 81 mg PO 1x/day * Keep the blood pressure under control 7). Hx Elevated LFTs * Could have been secondary to the Dilantin and the Crestor. The Crestor is being held and the Dilantin was switched over to Keppra. * The LFTs have normalized as of 03/14/17 8). Hx Elevated WBC * Normalized * Likely secondary to the Sepsis as mentioned above * NO fevers * Vitals are stable 9). Hx Enlarged Prostate and Urinary Retention * Proscar 5 mg PO 1x/day * Flomax 0.4 mg PO 1x/day 10). Anemia Likely Secondary to Chronic Disease * HgB/Hct are stable 11). Prophylaxis * Colace 100 mg PO 2x/day * Pepcid 20 mg PO 1x/day * Bacid 1 cap PO 2x/day with STOP on 04/14/17 * Zofran 4 mg IV Q6H PRN N/V * DVT Prophylaxis: he is on coumadin Disposition: Patient is pending [employer] approval. Daughter requests for [facility] for [facility].
[2017-03-17] MEDS ORDERED: Sodium Chloride 0.9% 1,000 ML IV ONE ×2 (18:10→18:12)
--- NOTE | 2017-03-18 06:11 | CP.PCM.PN ---
<Palak Espinosa - Last Filed: 03/18/17 11:44> Subjective - Date & Time of Evaluation Date of Evaluation: 03/18/17 Time of Evaluation: 09:00 - Subjective Subjective: Medicine Note for Dr. Skinner Patient was seen and examined at bedside. No acute complaints. Denied fever, chills, headache, SOB, chest pain, abdominal pain, n/v/d/c, or urinary symptoms. Objective - Vital Signs/Intake and Output Vital Signs (last 24 hours): Temp Pulse Resp BP Pulse Ox 98.6 F 64 20 111/65 100 03/18/17 00:00 03/18/17 00:00 03/18/17 00:00 03/18/17 00:00 03/18/17 00:00 Intake and Output: 03/17/17 03/18/17 18:59 06:59 Intake Total 480 1200 Output Total 400 Balance 80 1200 - Medications Medications: Current Medications Amiodarone HCl (Cordarone) 200 mg PO BID [facility] Last Admin: 03/17/17 17:27 Dose: Not Given Aspirin (Aspirin Chewable) 81 mg PO DAILY [facility] Last Admin: 03/17/17 09:58 Dose: 81 mg Diltiazem HCl (Cardizem Cd) 360 mg PO DAILY [facility] Last Admin: 03/17/17 10:04 Dose: 360 mg Docusate Sodium (Colace) 100 mg PO BID [facility] Last Admin: 03/17/17 17:24 Dose: 100 mg Famotidine (Pepcid) 20 mg PO DAILY [facility] Last Admin: 03/17/17 09:59 Dose: 20 mg Finasteride (Proscar) 5 mg PO DAILY [facility] Last Admin: 03/17/17 10:04 Dose: 5 mg Gabapentin (Neurontin) 300 mg PO TID [facility] Last Admin: 03/17/17 17:24 Dose: 300 mg Lactobacillus Acidophilus (Bacid Acidophilus) 1 cap PO BID [facility] Stop: 04/14/17 18:00 Last Admin: 03/17/17 17:25 Dose: 1 cap Levetiracetam (Keppra) 500 mg PO BID [facility] Last Admin: 03/17/17 17:25 Dose: 500 mg Losartan Potassium (Cozaar) 25 mg PO DAILY [facility] Last Admin: 03/17/17 09:59 Dose: 25 mg Morphine Sulfate (Morphine) 2 mg IVP Q4 PRN PRN Reason: Pain, severe (8-10) Last Admin: 03/16/17 10:16 Dose: 2 mg Ondansetron HCl (Zofran Inj) 4 mg IVP Q6 PRN PRN Reason: Nausea/Vomiting Tamsulosin HCl (Flomax) 0.4 mg PO DAILY [facility] Last Admin: 03/17/17 09:58 Dose: 0.4 mg - Labs Labs: 03/16/17 11:23 03/16/17 11:23 PT 33.0 SECONDS (9.7-12.2) H* D 03/17/17 06:25 INR 2.8 D 03/17/17 06:25 APTT 28 SECONDS (21-34) D 03/09/17 11:30 - Additional Findings Additional findings: - Constitutional Appears: No Acute Distress - Head Exam Head Exam: NORMAL INSPECTION, NORMOCEPHALIC - Eye Exam Eye Exam: EOMI, Normal appearance, PERRL Pupil Exam: NORMAL ACCOMODATION - ENT Exam ENT Exam: Mucous Membranes Moist, Normal Exam - Respiratory Exam Respiratory Exam: Clear to Ausculation Bilateral, NORMAL BREATHING PATTERN. absent: Decreased Breath Sounds, Wheezes - Cardiovascular Exam Cardiovascular Exam: REGULAR RHYTHM, RRR, +S1, +S2 - GI/Abdominal Exam GI & Abdominal Exam: Soft, Normal Bowel Sounds. absent: Distended, Tenderness Additional comments: Bilateral Groin surgical site (from bilateral thrombectomies): neo removed by Vascular Surgery and placed sutures. 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 He underwent bilateral thrombectomy on 02/05/17. The status of his bilateral lower legs worsened subsequently ( formation of bullae and sloughing of skin and these extremities cool to the touch and intense pain with minor palpation). Cultures from the bilateral lower legs revealed Serratia marcescens and Enterococcus faecalis. Blood Culture was positive for Bacillus species and Urine Cultures positive for Enterococcus faecalis. Because of the likelihood of sepsis, family decided on amputation. 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 Family has completed Medicaid Application and awaiting approval for [facility] placement. Plan: Severe PAD; Critical Limb Ischemia Vascular surgery (Dr. Kaur) on the case-->help appreciated * Patient may restart Coumadin * pain: oxycodone/tylenol 2 tab PO Q 6H prn * Dilaudid mg IVP Q 3 PRN pain * Cardiology (Dr. Brown) on the case--> help appreciated * Family has been routinely updated regarding the progression and necrosis of the legs; and ultimately decided on 03/03/17 for surgery * s/p 02/05/17 Femoral embolectomy via groin incision, right and left with intraoperative angiograms--> bilateral femoral embolectomy by groin incision and angiography-->clot removed by the right lower extremity; no clot from the left. S/P B/L AKA (03/04/17) * Patient has mild surgical deshcience from 02/05/17 surgery--> neo removed, and sutures--> Discussed with Dr Kaur 03/07 * Bridged to Coumadin target INR 2.5- 3.5 * INR 3.6 today we will continue Coumadin 2 mg PO QHS * Gabapentin 300mg PO TID for his neuropathy * Pain medications: Morphine, percocet PRN Anemia Likely Secondary to Chronic Disease HgB/Hct are stable Enlarged prostate, Urinary Retention * Renal US: high postvoid residual and enlarged prostate. Nephrology started on Flomax 0.4mg PO daily and Proscar 5mg PO daily * 03/05: has urinary retention today; advised patient to straight cath; Lasix 20mg IV X1 * Will need to monitor urinary output Hx Atrial Fibrillation * Cardiology (Dr. Brown) on the case-->help appreciated * INR was reversed with 3 units of FFP and vitamin K prior to patient going for emergent surgery 03/04/17 * Currently on Coumadin 5mg PO QHS * Cardizem CD 360 mg PO 1x/day * Metoprolol 100 mg PO Q12H * Amiodarone 200mg PO BID Hx Seizure Disorder * Neurology Consult was ordered with Dr. Onesimo Hogan to see if patient could be switched over to Keppra. * Dr. Hogan has placed patient on Keppra 500 mg PO 2x/day * Patient's prior CT scans showing encephalomacia given history of multiple strokes in the past Hx Multiple CVAs * On Heparin drip being bridged to Coumadin * On seizure prophylaxis * On statin, aspirin, blood pressure to control - statin is placed on hold 2/2 transaminitis Hx of Sepsis during this Admission --> resolved * Infectious Disease (Dr. Sarkar) on the case-->help appreciated * Vascular surgery (Dr. Kaur) on the case--->help appreciated * Code sepsis 03/03 * 03/04: C/w IV abx; Patient awaiting surgery with Dr. Kaur later today; Reverse INR with FFP X3 units prior to OR * Started on Cipro 400mg IVP Q12H (03/11/17) * Cultures: * Leg Right and Left (03/02/17): Serratia Marcescens and Enterococcus Faecalis * Ampicillin 2gram IVPB Q 6 (active since 03/06/17) and Rocephin 1 gram IVPB daily (active since 03/06/17) ---> both DC on 03/11/17 and switched to Cipro. Due to the elevated LFTs, both ampicillin and rocephin are DC. Amipillin lowers the seizure threshold and considering this patient has a history of seizures, currently on keppra, this abx will be DC. * Started on Cipro 400mg IVP Q12H (03/11/17), as per ID recommended Last dose was on 03/13/17. * Blood cultures (03/07): no growth after 24 hours * Repeat UC 03/10/17 - no growth Malignant Hypertension --> resolved * Application Support Analyst Dr. Brown 02/12/17 on board-->help appreciated * ASA 81mg PO daily * Cozaar 25mg PO daily * Cardizem CD 360 mg 1x/day * Metoprolol 100mg PO Q12 - currently being held due to an episode of hypotension * CT Angiogram of the Abdomen/Pelvis 02/04/17 did NOT show any evidence of Renal Artery Stenosis Prophylaxis * Pepcid 20mg PO daily * Zofran 4mg IVP Q 6H PRN nausea * Heparin drip--> Coumadin; f/u INR * Colace 100mg PO BID * Florastor 250mg PO BID * PT/OT eval Disposition: Daughter Pura would like patient to go to [facility] when Medicaid is approved. Awaiting Medicaid coverage for transfer to [facility]. She will also have to follow up with [facility] concerning possible prosthesis for the lower legs. DW Francisca Deras DO PGY-1 <Alexandra Skinner V - Last Filed: 03/18/17 17:58> Objective - Vital Signs/Intake and Output Vital Signs (last 24 hours): Temp Pulse Resp BP Pulse Ox 97.7 F 59 L 20 98/59 L 96 03/18/17 15:00 03/18/17 15:00 03/18/17 15:00 03/18/17 15:00 03/18/17 15:00 Intake and Output: 03/18/17 03/18/17 06:59 18:59 Intake Total 2150 240 Output Total 300 Balance 1850 240 - Medications Medications: Current Medications Amiodarone HCl (Cordarone) 200 mg PO BID [facility] Last Admin: 03/18/17 17:31 Dose: Not Given Aspirin (Aspirin Chewable) 81 mg PO DAILY [facility] Last Admin: 03/18/17 09:29 Dose: 81 mg Diltiazem HCl (Cardizem Cd) 360 mg PO DAILY [facility] Last Admin: 03/18/17 09:30 Dose: 360 mg Docusate Sodium (Colace) 100 mg PO BID [facility] Last Admin: 03/18/17 17:30 Dose: 100 mg Famotidine (Pepcid) 20 mg PO DAILY [facility] Last Admin: 03/18/17 09:29 Dose: 20 mg Finasteride (Proscar) 5 mg PO DAILY [facility] Last Admin: 03/18/17 09:30 Dose: 5 mg Gabapentin (Neurontin) 300 mg PO TID [facility] Last Admin: 03/18/17 17:29 Dose: 300 mg Lactobacillus Acidophilus (Bacid Acidophilus) 1 cap PO BID [facility] Stop: 04/14/17 18:00 Last Admin: 03/18/17 17:30 Dose: 1 cap Levetiracetam (Keppra) 500 mg PO BID [facility] Last Admin: 03/18/17 17:29 Dose: 500 mg Losartan Potassium (Cozaar) 25 mg PO DAILY [facility] Last Admin: 03/18/17 09:29 Dose: 25 mg Morphine Sulfate (Morphine) 2 mg IVP Q4 PRN PRN Reason: Pain, severe (8-10) Last Admin: 03/16/17 10:16 Dose: 2 mg Ondansetron HCl (Zofran Inj) 4 mg IVP Q6 PRN PRN Reason: Nausea/Vomiting Tamsulosin HCl (Flomax) 0.4 mg PO DAILY [facility] Last Admin: 03/18/17 09:29 Dose: 0.4 mg Warfarin Sodium (Coumadin) 2 mg PO DAILY@1800 ONE Stop: 03/18/17 18:01 Last Admin: 03/18/17 17:31 Dose: 2 mg - Labs Labs: 03/18/17 11:11 03/18/17 11:11 PT 41.9 SECONDS (9.7-12.2) H* D 03/18/17 06:19 INR 3.6 03/18/17 06:19 APTT 28 SECONDS (21-34) D 03/09/17 11:30 Attending/Attestation - Attestation I have personally seen and examined this patient.: Yes I have fully participated in the care of the patient.: Yes I have reviewed all pertinent clinical information, including history, physical exam and plan: Yes Notes (Text): Patient seen, examined, and case discussed with day-time resident. Patient seen this afternoon. Patient's at bedside. Patient tolerating diet at bedside. Patient denies acute complaints. Patient's b/l AKA: clean/dry/intact; Neo present in both stumps Patient's INR at 3.86, to be given coumadin 1mg tonight, f/u INR in AM. Patient's blood pressure remains stable off beta ester, will continue to monitor blood pressure. Will need to follow-up with social and case management in regards to patient's medicaid status. Assessment/ Plan 1). PAD S/P Bilateral AKA 03/04/17 * Vascular Surgery (Dr. Kaur) on the case help appreciated * Cardiology (Dr. Brown) on the case help appreciated * Coumadin tonight, INR: 3.6 * Goal INR is 2.5 to 3.[address] rBown * Neo to Surgical Site to removed when Ok with Vascular Surgery Dr. Kaur * Morphine 2 mg IV Q4H PRN Severe Pain * Gabapentin 300 mg PO 3x/day 2). Hx Malignant HTN * B/P running on the low end, continue to monitor. Patient is asymptomatic * Held Metoprolol 100 mg PO Q12H in light of hypotension on 03/17; given fluid bolus on 03/17 * Cardizem 360 mg PO 1x/day * Cozaar 25 mg PO 1x/day 3). Hx Sepsis * Secondary to gangrenous bilateral legs, +blood culture code sepsis called on * Urine Culture (03/03/17): Enterococcus Faecalis-->sensitive to Vancomycin and PCN * Blood cultures (03/03/17): No growth at 5 days * Urine culture (03/02/17): Enterococcus Faecalis * Blood culture (03/02/17): Bacillus species * Blood Culture (03/02/17): no growth after 5 days * Leg Right and Left (03/02/17): Serratia Marcescens and Enterococcus Faecalis * Repeat Blood Culture (03/07): Negative at 5 days * Repeat Urine Culture (04/06): NO growth * Patient was treated with Ampicillin and Rocephin through 03/11/17. He was switched to Ciprofloxicin on 03/11/17 and this was discontinued by ID on 03/13/17. 4). Hx Atrial Fibrillation * Amiodarone 200 mg PO 2x/day * held Metoprolol 100 mg PO Q12H secondary to hypotension * Cardizem 360 mg PO 1x/day * Coumadin 5 mg PO x 1 dose tonight, INR: 2.8 5). Hx Seizure Disorder * Because of Elevated LFTs his Dilantin was discontinued and Neurology Dr. Onesimo Hogan started him on Keppra 500 mg PO 2x/day 6). Hx Multiple CVAs * Crestor is being held considering the elevated LFTs and that his Lipid Profile is currently WNL. * Repeat Lipid Panel in 1 month to see where we are with this. * ASA 81 mg PO 1x/day * Keep the blood pressure under control 7). Hx Elevated LFTs * Could have been secondary to the Dilantin and the Crestor. The Crestor is being held and the Dilantin was switched over to Keppra. * The LFTs have normalized as of 03/14/17 8). Hx Elevated WBC * Normalized * Likely secondary to the Sepsis as mentioned above * NO fevers * Vitals are stable 9). Hx Enlarged Prostate and Urinary Retention * Proscar 5 mg PO 1x/day * Flomax 0.4 mg PO 1x/day 10). Anemia Likely Secondary to Chronic Disease * HgB/Hct are stable 11). Prophylaxis * Colace 100 mg PO 2x/day * Pepcid 20 mg PO 1x/day * Bacid 1 cap PO 2x/day with STOP on 04/14/17 * Zofran 4 mg IV Q6H PRN N/V * DVT Prophylaxis: he is on coumadin Disposition: Patient is pending [employer] approval. Daughter requests for [facility] for [facility].
[2017-03-18 06:46] LABS: INR 3.6
[2017-03-18] MEDS: Lactobacillus Acidophilus 500 MU Cap PO SCH ×2 (09:30→17:30)
[2017-03-18] MEDS: diltiaZEM 180 mg/24 Hours CD Cap PO SCH (09:30)
[2017-03-18 11:21] LABS: BASO % 0.4 % (0.0-2.0); EOS % 0.7 % (0.0-4.0); HEMATOCRIT 32.9 % (35.0-51.0); LYMPH # 2.1 K/uL (1.0-4.3); LYMPH % 31.8 % (20.0-40.0); MEAN CELL VOLUME 81.7 fL (80.0-94.0); MEAN CORPUSCULAR HEMOGLOBIN 27.5 pg (27.0-31.0); MEAN CORPUSCULAR HGB CONC 33.7 g/dL (33.0-37.0); MEAN PLATELET VOLUME 7.3 fL (7.2-11.7); MONO # 0.3 K/uL (0.0-0.8); MONO % 5.2 % (0.0-10.0); RED CELL DISTRIBUTION WIDTH 17.8 % (11.5-14.5); WHITE BLOOD COUNT 6.5 K/uL (4.8-10.8)
[2017-03-18 11:32] LABS: CHLORIDE 101 mmol/L (98-107)
[2017-03-18 11:33] LABS: SODIUM 135 mmol/L (132-148)
[2017-03-18 11:35] LABS: AST/SGOT 23 U/L (17-59); BILIRUBIN,TOTAL 0.4 mg/dL (0.2-1.3); CARBON DIOXIDE 25 mmol/L (22-30); GFR AFRICAN-AMERICAN > 60
[2017-03-18 11:36] LABS: ALB/GLOB RATIO 0.8 (1.0-2.1); ALKALINE PHOSPHATASE 103 U/L (38-126); ALT/SGPT 39 U/L (21-72); BLOOD UREA NITROGEN 18 mg/dL (9-20); CALCIUM 8.2 mg/dl (8.6-10.4); GLUCOSE,RANDOM 76 mg/dL (75-110); MAGNESIUM 1.9 mg/dL (1.6-2.3); PHOSPHOROUS 3.1 mg/dL (2.5-4.5); TOTAL PROTEIN 6.2 g/dL (6.3-8.3)
[2017-03-19 06:39] LABS: INR 3.4
[2017-03-19] MEDS: Lactobacillus Acidophilus 500 MU Cap PO SCH ×2 (10:51→18:50)
[2017-03-19] MEDS: diltiaZEM 180 mg/24 Hours CD Cap PO SCH (10:53)
--- NOTE | 2017-03-19 12:48 | CP.PCM.PN ---
<Radha Garcia - Last Filed: 03/19/17 17:23> Subjective - Date & Time of Evaluation Date of Evaluation: 03/19/17 Time of Evaluation: 12:47 - Subjective Subjective: Internal Medicine Progress note Patient states he is feeling better and his lower extremity limb pain. Patient tolerating diet well. Patient had soft stool. Patient denies, fever, chills, nausea, vomiting. Patient requests for physical therapy. Objective - Vital Signs/Intake and Output Vital Signs (last 24 hours): Temp Pulse Resp BP Pulse Ox 98.1 F 74 20 138/74 100 03/19/17 07:49 03/19/17 07:49 03/19/17 07:49 03/19/17 07:49 03/19/17 07:49 Intake and Output: 03/19/17 03/19/17 06:59 18:59 Intake Total 600 Balance 600 - Medications Medications: Current Medications Amiodarone HCl (Cordarone) 200 mg PO BID [facility] Last Admin: 03/19/17 10:52 Dose: 200 mg Aspirin (Aspirin Chewable) 81 mg PO DAILY [facility] Last Admin: 03/19/17 10:51 Dose: 81 mg Diltiazem HCl (Cardizem Cd) 360 mg PO DAILY [facility] Last Admin: 03/19/17 10:53 Dose: 360 mg Docusate Sodium (Colace) 100 mg PO BID [facility] Last Admin: 03/19/17 10:53 Dose: Not Given Famotidine (Pepcid) 20 mg PO DAILY [facility] Last Admin: 03/19/17 10:51 Dose: 20 mg Finasteride (Proscar) 5 mg PO DAILY [facility] Last Admin: 03/19/17 10:50 Dose: 5 mg Gabapentin (Neurontin) 300 mg PO TID [facility] Last Admin: 03/19/17 10:50 Dose: 300 mg Lactobacillus Acidophilus (Bacid Acidophilus) 1 cap PO BID [facility] Stop: 04/14/17 18:00 Last Admin: 03/19/17 10:51 Dose: 1 cap Levetiracetam (Keppra) 500 mg PO BID [facility] Last Admin: 03/19/17 10:52 Dose: 500 mg Losartan Potassium (Cozaar) 25 mg PO DAILY [facility] Last Admin: 03/19/17 10:50 Dose: 25 mg Morphine Sulfate (Morphine) 2 mg IVP Q4 PRN PRN Reason: Pain, severe (8-10) Last Admin: 03/16/17 10:16 Dose: 2 mg Ondansetron HCl (Zofran Inj) 4 mg IVP Q6 PRN PRN Reason: Nausea/Vomiting Tamsulosin HCl (Flomax) 0.4 mg PO DAILY [facility] Last Admin: 03/19/17 10:51 Dose: 0.4 mg - Labs Labs: 03/18/17 11:11 03/18/17 11:11 PT 40.3 SECONDS (9.7-12.2) H* 03/19/17 06:23 INR 3.4 03/19/17 06:23 APTT 28 SECONDS (21-34) D 03/09/17 11:30 Assessment and Plan - Assessment and Plan (Free Text) Assessment: Admitted on 02/04/17 for evaluation of severe left calf pain and 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 He underwent bilateral thrombectomy on 02/05/17. The status of his bilateral lower legs worsened subsequently ( formation of bullae and sloughing of skin and these extremities cool to the touch and intense pain with minor palpation). Cultures from the bilateral lower legs revealed Serratia marcescens and Enterococcus faecalis. Blood Culture was positive for Bacillus species and Urine Cultures positive for Enterococcus faecalis. Because of the likelihood of sepsis, family decided on amputation. 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 Family has completed Medicaid Application and awaiting approval for [facility] placement. Plan: Severe PAD; Critical Limb Ischemia Vascular surgery (Dr. Kaur) on the case-->help appreciated * Patient may restart Coumadin * pain: oxycodone/tylenol 2 tab PO Q 6H prn * Dilaudid mg IVP Q 3 PRN pain * Cardiology (Dr. Brown) on the case--> help appreciated * Family has been routinely updated regarding the progression and necrosis of the legs; and ultimately decided on 03/03/17 for surgery * s/p 02/05/17 Femoral embolectomy via groin incision, right and left with intraoperative angiograms--> bilateral femoral embolectomy by groin incision and angiography-->clot removed by the right lower extremity; no clot from the left. S/P B/L AKA (03/04/17) * Patient has mild surgical deshcience from 02/05/17 surgery--> neo removed, and sutures--> Discussed with Dr Kaur 03/07 * Bridged to Coumadin target INR 2.5- 3.5 * INR 3.4 today we will continue Coumadin 2 mg PO QHS * Gabapentin 300mg PO TID for his neuropathy * Pain medications: Morphine, percocet PRN Anemia Likely Secondary to Chronic Disease HgB/Hct are stable Enlarged prostate, Urinary Retention * Renal US: high postvoid residual and enlarged prostate. Nephrology started on Flomax 0.4mg PO daily and Proscar 5mg PO daily * 03/05: has urinary retention today; advised patient to straight cath; Lasix 20mg IV X1 * Will need to monitor urinary output Hx Atrial Fibrillation * Cardiology (Dr. Brown) on the case-->help appreciated * INR was reversed with 3 units of FFP and vitamin K prior to patient going for emergent surgery 03/04/17 * Currently on Coumadin 5mg PO QHS * Cardizem CD 360 mg PO 1x/day * Metoprolol 100 mg PO Q12H * Amiodarone 200mg PO BID Hx Seizure Disorder * Neurology Consult was ordered with Dr. Onesimo Hogan to see if patient could be switched over to Keppra. * Dr. Hogan has placed patient on Keppra 500 mg PO 2x/day * Patient's prior CT scans showing encephalomacia given history of multiple strokes in the past Hx Multiple CVAs * On Heparin drip being bridged to Coumadin * On seizure prophylaxis * On statin, aspirin, blood pressure to control - statin is placed on hold 2/2 transaminitis Hx of Sepsis during this Admission --> resolved * Infectious Disease (Dr. Sarkar) on the case-->help appreciated * Vascular surgery (Dr. Kaur) on the case--->help appreciated * Code sepsis 03/03 * 03/04: C/w IV abx; Patient awaiting surgery with Dr. Kaur later today; Reverse INR with FFP X3 units prior to OR * Started on Cipro 400mg IVP Q12H (03/11/17) * Cultures: * Leg Right and Left (03/02/17): Serratia Marcescens and Enterococcus Faecalis * Ampicillin 2gram IVPB Q 6 (active since 03/06/17) and Rocephin 1 gram IVPB daily (active since 03/06/17) ---> both DC on 03/11/17 and switched to Cipro. Due to the elevated LFTs, both ampicillin and rocephin are DC. Amipillin lowers the seizure threshold and considering this patient has a history of seizures, currently on keppra, this abx will be DC. * Started on Cipro 400mg IVP Q12H (03/11/17), as per ID recommended Last dose was on 03/13/17. * Blood cultures (03/07): no growth after 24 hours * Repeat UC 03/10/17 - no growth Malignant Hypertension --> resolved * Handbag Operator Dr. Brown 02/12/17 on board-->help appreciated * ASA 81mg PO daily * Cozaar 25mg PO daily * Cardizem CD 360 mg 1x/day * Metoprolol 100mg PO Q12 - currently being held due to an episode of hypotension * CT Angiogram of the Abdomen/Pelvis 02/04/17 did NOT show any evidence of Renal Artery Stenosis Prophylaxis * Pepcid 20mg PO daily * Zofran 4mg IVP Q 6H PRN nausea * Heparin drip--> Coumadin; f/u INR * Colace 100mg PO BID * Florastor 250mg PO BID * PT/OT eval and treatment Disposition: Daughter Pura would like patient to go to [facility] when Medicaid is approved. Awaiting Medicaid coverage for transfer to [facility]. She will also have to follow up with [facility] concerning possible prosthesis for the lower legs. Discussed Dr. Susanne Garcia DO PGY1 <Alexandra Skinner V - Last Filed: 03/19/17 22:40> Objective - Vital Signs/Intake and Output Vital Signs (last 24 hours): Temp Pulse Resp BP Pulse Ox 97.6 F 87 20 108/69 100 03/19/17 15:00 03/19/17 18:51 03/19/17 15:00 03/19/17 18:51 03/19/17 15:00 Intake and Output: 03/19/17 03/20/17 18:59 06:59 Intake Total 480 Balance 480 - Medications Medications: Current Medications Amiodarone HCl (Cordarone) 200 mg PO BID [facility] Last Admin: 03/19/17 18:51 Dose: 200 mg Aspirin (Aspirin Chewable) 81 mg PO DAILY [facility] Last Admin: 03/19/17 10:51 Dose: 81 mg Diltiazem HCl (Cardizem Cd) 360 mg PO DAILY [facility] Last Admin: 03/19/17 10:53 Dose: 360 mg Docusate Sodium (Colace) 100 mg PO BID [facility] Last Admin: 03/19/17 18:50 Dose: 100 mg Famotidine (Pepcid) 20 mg PO DAILY [facility] Last Admin: 03/19/17 10:51 Dose: 20 mg Finasteride (Proscar) 5 mg PO DAILY [facility] Last Admin: 03/19/17 10:50 Dose: 5 mg Gabapentin (Neurontin) 300 mg PO TID [facility] Last Admin: 03/19/17 18:50 Dose: 300 mg Lactobacillus Acidophilus (Bacid Acidophilus) 1 cap PO BID [facility] Stop: 04/14/17 18:00 Last Admin: 03/19/17 18:50 Dose: 1 cap Levetiracetam (Keppra) 500 mg PO BID [facility] Last Admin: 03/19/17 18:50 Dose: 500 mg Losartan Potassium (Cozaar) 25 mg PO DAILY [facility] Last Admin: 03/19/17 10:50 Dose: 25 mg Morphine Sulfate (Morphine) 2 mg IVP Q4 PRN PRN Reason: Pain, severe (8-10) Last Admin: 03/16/17 10:16 Dose: 2 mg Ondansetron HCl (Zofran Inj) 4 mg IVP Q6 PRN PRN Reason: Nausea/Vomiting Tamsulosin HCl (Flomax) 0.4 mg PO DAILY [facility] Last Admin: 03/19/17 10:51 Dose: 0.4 mg - Labs Labs: 03/18/17 11:11 03/18/17 11:11 PT 40.3 SECONDS (9.7-12.2) H* 03/19/17 06:23 INR 3.4 03/19/17 06:23 APTT 28 SECONDS (21-34) D 03/09/17 11:30 Attending/Attestation - Attestation I have personally seen and examined this patient.: Yes I have fully participated in the care of the patient.: Yes I have reviewed all pertinent clinical information, including history, physical exam and plan: Yes Notes (Text): Patient seen, examined, and case discussed with day-time resident. Patient seen this morning. Patient tolerating diet at bedside. Patient denies acute complaints. Eager to continue physical therapy Patient's b/l AKA: clean/dry/intact; Neo present in both stumps. Per discussion with Dr. Kaur, staplers to be removed in a month from surgery () Patient's INR at 3.4, to be given coumadin 2mg tonight, f/u INR in AM. Patient's blood pressure remains stable off beta ester, will continue to monitor blood pressure. Will need to follow-up with social and case management in regards to patient's medicaid status. Assessment/ Plan 1). PAD S/P Bilateral AKA 03/04/17 * Vascular Surgery (Dr. Kaur) on the case help appreciated * Cardiology (Dr. Brown) on the case help appreciated * Coumadin 2mg PO tonight, INR: 3.4 * Goal INR is 2.5 to 3.[address] Brown * Dixon to Surgical Site to removed when Ok with Vascular Surgery Dr. Kaur * Morphine 2 mg IV Q4H PRN Severe Pain * Gabapentin 300 mg PO 3x/day 2). Hx Malignant HTN * B/P running on the low end, continue to monitor. Patient is asymptomatic * Held Metoprolol 100 mg PO Q12H in light of hypotension on 03/17; given fluid bolus on 03/17 * Cardizem 360 mg PO 1x/day * Cozaar 25 mg PO 1x/day 3). Hx Sepsis * Secondary to gangrenous bilateral legs, +blood culture code sepsis called on * Urine Culture (03/03/17): Enterococcus Faecalis-->sensitive to Vancomycin and PCN * Blood cultures (03/03/17): No growth at 5 days * Urine culture (03/02/17): Enterococcus Faecalis * Blood culture (03/02/17): Bacillus species * Blood Culture (03/02/17): no growth after 5 days * Leg Right and Left (03/02/17): Serratia Marcescens and Enterococcus Faecalis * Repeat Blood Culture (03/07): Negative at 5 days * Repeat Urine Culture (04/06): NO growth * Patient was treated with Ampicillin and Rocephin through 03/11/17. He was switched to Ciprofloxicin on 03/11/17 and this was discontinued by ID on 03/13/17. 4). Hx Atrial Fibrillation * Amiodarone 200 mg PO 2x/day * held Metoprolol 100 mg PO Q12H secondary to hypotension * Cardizem 360 mg PO 1x/day * Coumadin 5 mg PO x 1 dose tonight, INR: 2.8 5). Hx Seizure Disorder * Because of Elevated LFTs his Dilantin was discontinued and Neurology Dr. Onesimo Hogan started him on Keppra 500 mg PO 2x/day 6). Hx Multiple CVAs * Crestor is being held considering the elevated LFTs and that his Lipid Profile is currently WNL. * Repeat Lipid Panel in 1 month to see where we are with this. * ASA 81 mg PO 1x/day * Keep the blood pressure under control 7). Hx Elevated LFTs * Could have been secondary to the Dilantin and the Crestor. The Crestor is being held and the Dilantin was switched over to Keppra. * The LFTs have normalized as of 03/14/17 8). Hx Elevated WBC * Normalized * Likely secondary to the Sepsis as mentioned above * NO fevers * Vitals are stable 9). Hx Enlarged Prostate and Urinary Retention * Proscar 5 mg PO 1x/day * Flomax 0.4 mg PO 1x/day 10). Anemia Likely Secondary to Chronic Disease * HgB/Hct are stable 11). Prophylaxis * Colace 100 mg PO 2x/day * Pepcid 20 mg PO 1x/day * Bacid 1 cap PO 2x/day with STOP on 04/14/17 * Zofran 4 mg IV Q6H PRN N/V * DVT Prophylaxis: he is on coumadin Disposition: Patient is pending [employer] approval. Daughter requests for [facility] for [facility].
--- NOTE | 2017-03-20 07:47 | CP.PCM.PN ---
Addendum entered and electronically signed by Emilie Hwang 03/20/17 14:00 : Patient has history of enlarge prostate and urinary retentions. Although patient reports normal bowel movement and no problems with urination, patient is mildly distended. Ordered bladder scan and lactulose. Original Note: <Emilie Hwang - Last Filed: 03/20/17 13:48> Subjective - Date & Time of Evaluation Date of Evaluation: 03/20/17 Time of Evaluation: 07:47 - Subjective Subjective: Medicine Progress note for Dr. Skinner Patient was seen and examined at bedside in no acute distress. Patient feels well today and has no new complaints. He reports still having pain on his lower extremities s/p bilateral AKA. Patient reports he has had normal bowel movements and denies dysuria. Patient denies having chest pain, shortness of breath, abdominal pain, nausea, vomiting, and fevers. Objective - Vital Signs/Intake and Output Vital Signs (last 24 hours): Temp Pulse Resp BP Pulse Ox 98.8 F 81 16 110/76 98 03/19/17 23:13 03/19/17 23:13 03/19/17 23:13 03/19/17 23:13 03/19/17 23:13 Intake and Output: 03/20/17 03/20/17 06:59 18:59 Intake Total 860 Balance 860 - Medications Medications: Current Medications Amiodarone HCl (Cordarone) 200 mg PO BID [facility] Last Admin: 03/19/17 18:51 Dose: 200 mg Aspirin (Aspirin Chewable) 81 mg PO DAILY [facility] Last Admin: 03/19/17 10:51 Dose: 81 mg Diltiazem HCl (Cardizem Cd) 360 mg PO DAILY [facility] Last Admin: 03/19/17 10:53 Dose: 360 mg Docusate Sodium (Colace) 100 mg PO BID [facility] Last Admin: 03/19/17 18:50 Dose: 100 mg Famotidine (Pepcid) 20 mg PO DAILY [facility] Last Admin: 03/19/17 10:51 Dose: 20 mg Finasteride (Proscar) 5 mg PO DAILY [facility] Last Admin: 03/19/17 10:50 Dose: 5 mg Gabapentin (Neurontin) 300 mg PO TID [facility] Last Admin: 03/19/17 18:50 Dose: 300 mg Lactobacillus Acidophilus (Bacid Acidophilus) 1 cap PO BID [facility] Stop: 04/14/17 18:00 Last Admin: 03/19/17 18:50 Dose: 1 cap Levetiracetam (Keppra) 500 mg PO BID [facility] Last Admin: 03/19/17 18:50 Dose: 500 mg Losartan Potassium (Cozaar) 25 mg PO DAILY [facility] Last Admin: 03/19/17 10:50 Dose: 25 mg Morphine Sulfate (Morphine) 2 mg IVP Q4 PRN PRN Reason: Pain, severe (8-10) Last Admin: 03/16/17 10:16 Dose: 2 mg Ondansetron HCl (Zofran Inj) 4 mg IVP Q6 PRN PRN Reason: Nausea/Vomiting Tamsulosin HCl (Flomax) 0.4 mg PO DAILY [facility] Last Admin: 03/19/17 10:51 Dose: 0.4 mg - Labs Labs: 03/18/17 11:11 03/18/17 11:11 PT 40.3 SECONDS (9.7-12.2) H* 03/19/17 06:23 INR 3.4 03/19/17 06:23 APTT 28 SECONDS (21-34) D 03/09/17 11:30 - Constitutional Appears: No Acute Distress - Head Exam Head Exam: ATRAUMATIC, NORMAL INSPECTION - Eye Exam Additional comments: Patient reports he cannot see. - ENT Exam ENT Exam: Mucous Membranes Moist - Respiratory Exam Respiratory Exam: Decreased Breath Sounds, Clear to Ausculation Bilateral, NORMAL BREATHING PATTERN. absent: Rhonchi, Wheezes, Respiratory Distress - Cardiovascular Exam Cardiovascular Exam: +S1, +S2. absent: Bradycardia, Tachycardia, Murmur - GI/Abdominal Exam GI & Abdominal Exam: Distended, Soft, Normal Bowel Sounds. 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 He underwent bilateral thrombectomy on 02/05/17. The status of his bilateral lower legs worsened subsequently ( formation of bullae and sloughing of skin and these extremities cool to the touch and intense pain with minor palpation). Cultures from the bilateral lower legs revealed Serratia marcescens and Enterococcus faecalis. Blood Culture was positive for Bacillus species and Urine Cultures positive for Enterococcus faecalis. Because of the likelihood of sepsis, family decided on amputation. 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 Family has completed Medicaid Application and awaiting approval for [facility] placement. Plan: Severe PAD; Critical Limb Ischemia Vascular surgery (Dr. Kaur) on the case-->help appreciated * Patient may restart Coumadin * pain: oxycodone/tylenol 2 tab PO Q 6H prn * Dilaudid mg IVP Q 3 PRN pain * Cardiology (Dr. Brown) on the case--> help appreciated * Family has been routinely updated regarding the progression and necrosis of the legs; and ultimately decided on 03/03/17 for surgery * s/p 02/05/17 Femoral embolectomy via groin incision, right and left with intraoperative angiograms--> bilateral femoral embolectomy by groin incision and angiography-->clot removed by the right lower extremity; no clot from the left. S/P B/L AKA (03/04/17) * Patient has mild surgical deshcience from 02/05/17 surgery--> neo removed, and sutures--> Discussed with Dr Kaur 03/07 * Bridged to Coumadin target INR 2.5- 3.5 * INR 2.7 today will increased Coumadin to 4 mg PO QHS ; F/U INR tomorrow * Gabapentin 300mg PO TID for his neuropathy * Pain medications: Morphine, percocet PRN Anemia Likely Secondary to Chronic Disease HgB/Hct are stable Enlarged prostate, Urinary Retention * Renal US: high postvoid residual and enlarged prostate. Nephrology started on Flomax 0.4mg PO daily and Proscar 5mg PO daily * 03/05: has urinary retention today; advised patient to straight cath; Lasix 20mg IV X1 * Will need to monitor urinary output Hx Atrial Fibrillation * Cardiology (Dr. Brown) on the case-->help appreciated * INR was reversed with 3 units of FFP and vitamin K prior to patient going for emergent surgery 03/04/17 * Currently on Coumadin 5mg PO QHS * Cardizem CD 360 mg PO 1x/day * Metoprolol 100 mg PO Q12H--: Held due to episode of hypotension; Blood pressure has been stable. * Amiodarone 200mg PO BID Hx Seizure Disorder * Neurology Consult was ordered with Dr. Onesimo Hogan to see if patient could be switched over to Keppra. * Dr. Hogan has placed patient on Keppra 500 mg PO 2x/day * Patient's prior CT scans showing encephalomacia given history of multiple strokes in the past Hx Multiple CVAs * On Heparin drip being bridged to Coumadin * On seizure prophylaxis * On statin, aspirin, blood pressure to control - statin is placed on hold 2/2 transaminitis Hx of Sepsis during this Admission --> resolved * Infectious Disease (Dr. Sarkar) on the case-->help appreciated * Vascular surgery (Dr. Kaur) on the case--->help appreciated * Code sepsis 03/03 * 03/04: C/w IV abx; Patient awaiting surgery with Dr. Kaur later today; Reverse INR with FFP X3 units prior to OR * Started on Cipro 400mg IVP Q12H (03/11/17) * Cultures: * Leg Right and Left (03/02/17): Serratia Marcescens and Enterococcus Faecalis * Ampicillin 2gram IVPB Q 6 (active since 03/06/17) and Rocephin 1 gram IVPB daily (active since 03/06/17) ---> both DC on 03/11/17 and switched to Cipro. Due to the elevated LFTs, both ampicillin and rocephin are DC. Amipillin lowers the seizure threshold and considering this patient has a history of seizures, currently on keppra, this abx will be DC. * Started on Cipro 400mg IVP Q12H (03/11/17), as per ID recommended Last dose was on 03/13/17. * Blood cultures (03/07): no growth * Repeat UC 03/10/17 - no growth Malignant Hypertension --> resolved * [employer] Dr. Brown 02/12/17 on board-->help appreciated * ASA 81mg PO daily * Cozaar 25mg PO daily * Cardizem CD 360 mg 1x/day * Metoprolol 100mg PO Q12 - currently being held due to an episode of hypotension; Blood pressure is stable. * CT Angiogram of the Abdomen/Pelvis 02/04/17 did NOT show any evidence of Renal Artery Stenosis Prophylaxis * Pepcid 20mg PO daily * Zofran 4mg IVP Q 6H PRN nausea * Heparin drip--> Coumadin; f/u INR * Colace 100mg PO BID * Florastor 250mg PO BID * PT/OT eval and treatment Disposition: Daughter Pura would like patient to go to [facility] when Medicaid is approved. Awaiting Medicaid coverage for transfer to [facility]. She will also have to follow up with [facility] concerning possible prosthesis for the lower legs. <Alexandra Skinner V - Last Filed: 03/20/17 22:59> Objective - Vital Signs/Intake and Output Vital Signs (last 24 hours): Temp Pulse Resp BP Pulse Ox 97.4 F L 79 20 105/66 99 03/20/17 15:00 03/20/17 18:05 03/20/17 15:00 03/20/17 18:05 03/20/17 15:00 Intake and Output: 03/20/17 03/21/17 18:59 06:59 Intake Total 500 400 Balance 500 400 - Medications Medications: Current Medications Amiodarone HCl (Cordarone) 200 mg PO BID [facility] Last Admin: 03/20/17 18:01 Dose: 200 mg Aspirin (Aspirin Chewable) 81 mg PO DAILY [facility] Last Admin: 03/20/17 10:17 Dose: 81 mg Diltiazem HCl (Cardizem Cd) 360 mg PO DAILY [facility] Last Admin: 03/20/17 10:17 Dose: 360 mg Docusate Sodium (Colace) 100 mg PO BID [facility] Last Admin: 03/20/17 18:01 Dose: 100 mg Famotidine (Pepcid) 20 mg PO DAILY [facility] Last Admin: 03/20/17 10:17 Dose: 20 mg Finasteride (Proscar) 5 mg PO DAILY [facility] Last Admin: 03/20/17 10:17 Dose: 5 mg Gabapentin (Neurontin) 300 mg PO TID [facility] Last Admin: 03/20/17 18:01 Dose: 300 mg Lactobacillus Acidophilus (Bacid Acidophilus) 1 cap PO BID [facility] Stop: 04/14/17 18:00 Last Admin: 03/20/17 18:01 Dose: 1 cap Levetiracetam (Keppra) 500 mg PO BID [facility] Last Admin: 03/20/17 18:01 Dose: 500 mg Losartan Potassium (Cozaar) 25 mg PO DAILY [facility] Last Admin: 03/20/17 10:18 Dose: 25 mg Morphine Sulfate (Morphine) 2 mg IVP Q4 PRN PRN Reason: Pain, severe (8-10) Last Admin: 03/16/17 10:16 Dose: 2 mg Ondansetron HCl (Zofran Inj) 4 mg IVP Q6 PRN PRN Reason: Nausea/Vomiting Tamsulosin HCl (Flomax) 0.4 mg PO DAILY [facility] Last Admin: 03/20/17 10:18 Dose: 0.4 mg - Labs Labs: 03/20/17 08:29 03/20/17 08:29 PT 32.5 SECONDS (9.7-12.2) H* D 03/20/17 08:29 INR 2.7 D 03/20/17 08:29 APTT 28 SECONDS (21-34) D 03/09/17 11:30 Attending/Attestation - Attestation I have personally seen and examined this patient.: Yes I have fully participated in the care of the patient.: Yes I have reviewed all pertinent clinical information, including history, physical exam and plan: Yes Notes (Text): Patient seen, examined, and case discussed with day-time resident. Patient seen this morning. Patient tolerating diet at bedside. Patient appears distended in the abdomen. Ordered for dose of Lactulose X1 and ordered for bladder scan. Per discussion with nurse Abby patient has 750cc urinary retention, and advised for urine straight catherization. Patient's b/l AKA: clean/dry/intact; [place] present in both stumps. Per discussion with Dr. Kaur, neo to be removed in a month from surgery () Patient's INR at 2.7, to be given coumadin 4mg tonight, f/u INR in AM. Patient's blood pressure remains stable off beta ester, will continue to monitor blood pressure. Will need to follow-up with social and case management in regards to patient's medicaid status. Discussed with head of case management, Teresa Sepulveda, will follow-up with medicaid status and if approved, patient eligible for acute rehab. Assessment/ Plan 1). PAD S/P Bilateral AKA 03/04/17 * Vascular Surgery (Dr. Kaur) on the case help appreciated * Cardiology (Dr. Brown) on the case help appreciated * Coumadin 4mg PO tonight, INR: 2.7 * Goal INR is 2.5 to 3.[address] Brown * Neo to Surgical Site to removed when Ok with Vascular Surgery Dr. Kaur -->neo to be removed in a month from surgery (04/03/17) * Morphine 2 mg IV Q4H PRN Severe Pain * Gabapentin 300 mg PO 3x/day 2). Hx Malignant HTN * B/P running on the low end, continue to monitor. Patient is asymptomatic * Held Metoprolol 100 mg PO Q12H in light of hypotension on 03/17; given fluid bolus on 03/17 * Cardizem 360 mg PO 1x/day * Cozaar 25 mg PO 1x/day 3). Hx Sepsis * Secondary to gangrenous bilateral legs, +blood culture code sepsis called on * Urine Culture (03/03/17): Enterococcus Faecalis-->sensitive to Vancomycin and PCN * Blood cultures (03/03/17): No growth at 5 days * Urine culture (03/02/17): Enterococcus Faecalis * Blood culture (03/02/17): Bacillus species * Blood Culture (03/02/17): no growth after 5 days * Leg Right and Left (03/02/17): Serratia Marcescens and Enterococcus Faecalis * Repeat Blood Culture (03/07): Negative at 5 days * Repeat Urine Culture (04/06): NO growth * Patient was treated with Ampicillin and Rocephin through 03/11/17. He was switched to Ciprofloxicin on 03/11/17 and this was discontinued by ID on 03/13/17. 4). Hx Atrial Fibrillation * Amiodarone 200 mg PO 2x/day * held Metoprolol 100 mg PO Q12H secondary to hypotension * Cardizem 360 mg PO 1x/day * Coumadin 4 mg PO x 1 dose tonight, INR: 2.7 5). Hx Seizure Disorder * Because of Elevated LFTs his Dilantin was discontinued and Neurology Dr. Onesimo Hogan started him on Keppra 500 mg PO 2x/day 6). Hx Multiple CVAs * Crestor is being held considering the elevated LFTs and that his Lipid Profile is currently WNL. * Repeat Lipid Panel in 1 month to see where we are with this. * ASA 81 mg PO 1x/day * Keep the blood pressure under control 7). Hx Elevated LFTs * Could have been secondary to the Dilantin and the Crestor. The Crestor is being held and the Dilantin was switched over to Keppra. * The LFTs have normalized as of 03/14/17 8). Hx Elevated WBC * Normalized * Likely secondary to the Sepsis as mentioned above * NO fevers * Vitals are stable 9). Hx Enlarged Prostate and Urinary Retention * Proscar 5 mg PO 1x/day * Flomax 0.4 mg PO 1x/day * Patient had urinary retention on 03/20-->patient had urinary straight cath 10). Anemia Likely Secondary to Chronic Disease * HgB/Hct are stable 11). Prophylaxis * Colace 100 mg PO 2x/day * Pepcid 20 mg PO 1x/day * Bacid 1 cap PO 2x/day with STOP on 04/14/17 * Zofran 4 mg IV Q6H PRN N/V * DVT Prophylaxis: he is on coumadin Disposition: Patient is pending [employer] approval. Daughter requests for [facility] for [facility].
[2017-03-20 08:36] LABS: BASO % 0.3 % (0.0-2.0); EOS # 0.1 K/uL (0.0-0.7); EOS % 0.7 % (0.0-4.0); LYMPH # 2.1 K/uL (1.0-4.3); LYMPH % 27.5 % (20.0-40.0); MEAN CELL VOLUME 81.2 fL (80.0-94.0); MEAN CORPUSCULAR HEMOGLOBIN 26.8 pg (27.0-31.0); MEAN PLATELET VOLUME 7.3 fL (7.2-11.7); MONO # 0.3 K/uL (0.0-0.8); MONO % 4.1 % (0.0-10.0); RED CELL DISTRIBUTION WIDTH 17.8 % (11.5-14.5); WHITE BLOOD COUNT 7.5 K/uL (4.8-10.8)
[2017-03-20 08:43] LABS: INR 2.7
[2017-03-20 08:51] LABS: CHLORIDE 102 mmol/L (98-107)
[2017-03-20 08:52] LABS: POTASSIUM 3.9 mmol/L (3.6-5.2); SODIUM 134 mmol/L (132-148)
[2017-03-20 08:54] LABS: AST/SGOT 17 U/L (17-59); BILIRUBIN,TOTAL 0.4 mg/dL (0.2-1.3); CARBON DIOXIDE 24 mmol/L (22-30); GFR AFRICAN-AMERICAN > 60
[2017-03-20 08:55] LABS: ALB/GLOB RATIO 0.7 (1.0-2.1); ALKALINE PHOSPHATASE 116 U/L (38-126); ALT/SGPT 39 U/L (21-72); BLOOD UREA NITROGEN 15 mg/dL (9-20); CALCIUM 8.1 mg/dl (8.6-10.4); GLUCOSE,RANDOM 96 mg/dL (75-110); MAGNESIUM 1.8 mg/dL (1.6-2.3); PHOSPHOROUS 3.6 mg/dL (2.5-4.5); TOTAL PROTEIN 6.1 g/dL (6.3-8.3)
[2017-03-20] MEDS: Lactobacillus Acidophilus 500 MU Cap PO SCH ×2 (10:17→18:01)
[2017-03-20] MEDS: diltiaZEM 180 mg/24 Hours CD Cap PO SCH (10:17)
--- NOTE | 2017-03-21 00:55 | CP.PCM.PN ---
<Palak Espinosa - Last Filed: 03/21/17 00:53> Subjective - Date & Time of Evaluation Date of Evaluation: 03/21/17 Time of Evaluation: 00:53 - Subjective Subjective: Medicine Note for Dr. Skinner Patient seen and examined at bedside. Patient resting comfortably in bed. No acute complaints. Denied fever, chills, headache, chest pain, SOB, abdominal pain, n/v/d/c, or urinary symptoms. Objective - Vital Signs/Intake and Output Vital Signs (last 24 hours): Temp Pulse Resp BP Pulse Ox 97.6 F 66 20 103/61 98 03/21/17 00:00 03/21/17 00:00 03/21/17 00:00 03/21/17 00:00 03/21/17 00:00 Intake and Output: 03/20/17 03/21/17 18:59 06:59 Intake Total 500 400 Balance 500 400 - Medications Medications: Current Medications Amiodarone HCl (Cordarone) 200 mg PO BID [facility] Last Admin: 03/20/17 18:01 Dose: 200 mg Aspirin (Aspirin Chewable) 81 mg PO DAILY [facility] Last Admin: 03/20/17 10:17 Dose: 81 mg Diltiazem HCl (Cardizem Cd) 360 mg PO DAILY [facility] Last Admin: 03/20/17 10:17 Dose: 360 mg Docusate Sodium (Colace) 100 mg PO BID [facility] Last Admin: 03/20/17 18:01 Dose: 100 mg Famotidine (Pepcid) 20 mg PO DAILY [facility] Last Admin: 03/20/17 10:17 Dose: 20 mg Finasteride (Proscar) 5 mg PO DAILY [facility] Last Admin: 03/20/17 10:17 Dose: 5 mg Gabapentin (Neurontin) 300 mg PO TID [facility] Last Admin: 03/20/17 18:01 Dose: 300 mg Lactobacillus Acidophilus (Bacid Acidophilus) 1 cap PO BID [facility] Stop: 04/14/17 18:00 Last Admin: 03/20/17 18:01 Dose: 1 cap Levetiracetam (Keppra) 500 mg PO BID [facility] Last Admin: 03/20/17 18:01 Dose: 500 mg Losartan Potassium (Cozaar) 25 mg PO DAILY [facility] Last Admin: 03/20/17 10:18 Dose: 25 mg Morphine Sulfate (Morphine) 2 mg IVP Q4 PRN PRN Reason: Pain, severe (8-10) Last Admin: 03/16/17 10:16 Dose: 2 mg Ondansetron HCl (Zofran Inj) 4 mg IVP Q6 PRN PRN Reason: Nausea/Vomiting Tamsulosin HCl (Flomax) 0.4 mg PO DAILY [facility] Last Admin: 03/20/17 10:18 Dose: 0.4 mg - Labs Labs: 03/20/17 08:29 03/20/17 08:29 PT 32.5 SECONDS (9.7-12.2) H* D 03/20/17 08:29 INR 2.7 D 03/20/17 08:29 APTT 28 SECONDS (21-34) D 03/09/17 11:30 - Additional Findings Additional findings: - Constitutional Appears: No Acute Distress - Head Exam Head Exam: NORMAL INSPECTION, NORMOCEPHALIC - Eye Exam Eye Exam: EOMI, Normal appearance, PERRL Pupil Exam: NORMAL ACCOMODATION - ENT Exam ENT Exam: Mucous Membranes Moist, Normal Exam - Respiratory Exam Respiratory Exam: Clear to Ausculation Bilateral, NORMAL BREATHING PATTERN. absent: Decreased Breath Sounds, Wheezes - Cardiovascular Exam Cardiovascular Exam: REGULAR RHYTHM, RRR, +S1, +S2 - GI/Abdominal Exam GI & Abdominal Exam: Soft, Normal Bowel Sounds. absent: Distended, Tenderness Additional comments: Bilateral Groin surgical site (from bilateral thrombectomies): neo removed by Vascular Surgery and placed sutures. NO wound dehiscence - Rectal Exam Rectal Exam: Deferred - Extremities Exam Additional comments: Bilateral AKA surgical site: surgical neo are in place, NO wound dehiscence - Neurological Exam Neurological Exam: Alert, Awake, Oriented x3 - Psychiatric Exam Psychiatric exam: Normal Affect, Normal Mood - Skin Skin Exam: Dry, Intact, Normal Color, Warm Additional comments: Skin: no sacral ulcers and no ulcers noted on any of the indigo prominences Assessment and Plan - Assessment and Plan (Free Text) Plan: 1). PAD S/P Bilateral AKA 03/04/17 * Vascular Surgery (Dr. Kaur) on the case help appreciated * Cardiology (Dr. Brown) on the case help appreciated * Coumadin daily, will need to monitor INR * Goal INR is 2.5 to 3.[address] Brown * Neo to Surgical Site to removed when Ok with Vascular Surgery Dr. Kaur -->neo to be removed in a month from surgery (04/03/17) * Morphine 2 mg IV Q4H PRN Severe Pain * Gabapentin 300 mg PO 3x/day 2). Hx Malignant HTN * B/P running on the low end, continue to monitor. Patient is asymptomatic * Held Metoprolol 100 mg PO Q12H in light of hypotension on 03/17; given fluid bolus on 03/17 * Cardizem 360 mg PO 1x/day * Cozaar 25 mg PO 1x/day 3). Hx Sepsis * Secondary to gangrenous bilateral legs, +blood culture code sepsis called on * Urine Culture (03/03/17): Enterococcus Faecalis-->sensitive to Vancomycin and PCN * Blood cultures (03/03/17): No growth at 5 days * Urine culture (03/02/17): Enterococcus Faecalis * Blood culture (03/02/17): Bacillus species * Blood Culture (03/02/17): no growth after 5 days * Leg Right and Left (03/02/17): Serratia Marcescens and Enterococcus Faecalis * Repeat Blood Culture (03/07): Negative at 5 days * Repeat Urine Culture (04/06): NO growth * Patient was treated with Ampicillin and Rocephin through 03/11/17. He was switched to Ciprofloxicin on 03/11/17 and this was discontinued by ID on 03/13/17. 4). Hx Atrial Fibrillation * Amiodarone 200 mg PO 2x/day * held Metoprolol 100 mg PO Q12H secondary to hypotension * Cardizem 360 mg PO 1x/day * Coumadin 4 mg PO x 1 dose tonight, INR: 2.7 5). Hx Seizure Disorder * Because of Elevated LFTs his Dilantin was discontinued and Neurology Dr. Onesimo Hogan started him on Keppra 500 mg PO 2x/day 6). Hx Multiple CVAs * Crestor is being held considering the elevated LFTs and that his Lipid Profile is currently WNL. * Repeat Lipid Panel in 1 month to see where we are with this. * ASA 81 mg PO 1x/day * Keep the blood pressure under control 7). Hx Elevated LFTs * Could have been secondary to the Dilantin and the Crestor. The Crestor is being held and the Dilantin was switched over to Keppra. * The LFTs have normalized as of 03/14/17 8). Hx Elevated WBC * Normalized * Likely secondary to the Sepsis as mentioned above * NO fevers * Vitals are stable 9). Hx Enlarged Prostate and Urinary Retention * Proscar 5 mg PO 1x/day * Flomax 0.4 mg PO 1x/day * Patient had urinary retention on 03/20-->patient had urinary straight cath 10). Anemia Likely Secondary to Chronic Disease * HgB/Hct are stable 11). Prophylaxis * Colace 100 mg PO 2x/day * Pepcid 20 mg PO 1x/day * Bacid 1 cap PO 2x/day with STOP on 04/14/17 * Zofran 4 mg IV Q6H PRN N/V * DVT Prophylaxis: he is on coumadin Disposition: Patient is pending [employer] approval. [facility]. DW Francisca Deras DO, PGY1 <Alexandra Skinner V - Last Filed: 03/21/17 13:01> Objective - Vital Signs/Intake and Output Vital Signs (last 24 hours): Temp Pulse Resp BP Pulse Ox 98.3 F 99 H 20 115/72 95 03/21/17 08:14 03/21/17 08:14 03/21/17 08:14 03/21/17 08:14 03/21/17 08:14 Intake and Output: 03/21/17 03/21/17 06:59 18:59 Intake Total 400 350 Output Total 300 Balance 400 50 - Medications Medications: Current Medications Amiodarone HCl (Cordarone) 200 mg PO BID [facility] Last Admin: 03/21/17 10:11 Dose: 200 mg Aspirin (Aspirin Chewable) 81 mg PO DAILY [facility] Last Admin: 03/21/17 10:12 Dose: 81 mg Diltiazem HCl (Cardizem Cd) 360 mg PO DAILY [facility] Last Admin: 03/21/17 10:12 Dose: 360 mg Docusate Sodium (Colace) 100 mg PO BID [facility] Last Admin: 03/21/17 10:11 Dose: 100 mg Famotidine (Pepcid) 20 mg PO DAILY [facility] Last Admin: 03/21/17 10:12 Dose: 20 mg Finasteride (Proscar) 5 mg PO DAILY [facility] Last Admin: 10/14/17 10:12 Dose: 5 mg Gabapentin (Neurontin) 300 mg PO TID [facility] Last Admin: 03/21/17 10:12 Dose: 300 mg Lactobacillus Acidophilus (Bacid Acidophilus) 1 cap PO BID [facility] Stop: 04/14/17 18:00 Last Admin: 03/21/17 10:12 Dose: 1 cap Levetiracetam (Keppra) 500 mg PO BID [facility] Last Admin: 03/21/17 10:12 Dose: 500 mg Losartan Potassium (Cozaar) 25 mg PO DAILY [facility] Last Admin: 03/21/17 10:12 Dose: 25 mg Morphine Sulfate (Morphine) 2 mg IVP Q4 PRN PRN Reason: Pain, severe (8-10) Last Admin: 03/16/17 10:16 Dose: 2 mg Ondansetron HCl (Zofran Inj) 4 mg IVP Q6 PRN PRN Reason: Nausea/Vomiting Tamsulosin HCl (Flomax) 0.4 mg PO DAILY [facility] Last Admin: 03/21/17 10:11 Dose: 0.4 mg Warfarin Sodium (Coumadin) 2 mg PO 1800 [facility] Stop: 03/21/17 18:01 - Labs Labs: 03/20/17 08:29 03/20/17 08:29 PT 36.2 SECONDS (9.7-12.2) H* 03/21/17 06:55 INR 3.1 03/21/17 06:55 APTT 28 SECONDS (21-34) D 03/09/17 11:30 Attending/Attestation - Attestation I have personally seen and examined this patient.: Yes I have fully participated in the care of the patient.: Yes I have reviewed all pertinent clinical information, including history, physical exam and plan: Yes Notes (Text): Patient seen, examined, and case discussed with day-time resident. Patient seen this morning. Patient tolerating diet at bedside. Patient had a bowel movement this morning. Spoke with daughter, Pura who was at bedside today. She reports her mother went to [facility] and she herself when to the Medicaid office this past week, she reports she will be approved but is pending. I have discussed with her that I recently spoke with Teresa, head of case management, and pending approval will try to get her father to acute rehab. Daughter also has questions about prosthetics but is out of the scope of my field, advised her to speak perhaps with surgery or with the rehab facility. Patient's b/l AKA: clean/dry/intact; Neo present in both stumps. Per discussion with Dr. Kaur, neo to be removed in a month from surgery () Patient's INR at 3.1, to be given coumadin 2mg tonight, f/u INR in AM. Patient's blood pressure remains stable off beta ester, will continue to monitor blood pressure. Will need to follow-up with social and case management in regards to patient's medicaid status. Assessment/ Plan 1). PAD S/P Bilateral AKA 03/04/17 * Vascular Surgery (Dr. Kaur) on the case help appreciated * Cardiology (Dr. Brown) on the case help appreciated * Coumadin 2mg PO tonight, INR: 3.1 * Goal INR is 2.5 to 3.[address] Brown * [place] to Surgical Site to removed when Ok with Vascular Surgery Dr. Kaur -->neo to be removed in a month from surgery (04/03/17) * Morphine 2 mg IV Q4H PRN Severe Pain * Gabapentin 300 mg PO 3x/day 2). Hx Malignant HTN * B/P running on the low end, continue to monitor. Patient is asymptomatic * Held Metoprolol 100 mg PO Q12H in light of hypotension on 03/17; given fluid bolus on 03/17 * Cardizem 360 mg PO 1x/day * Cozaar 25 mg PO 1x/day 3). Hx Sepsis * Secondary to gangrenous bilateral legs, +blood culture code sepsis called on * Urine Culture (03/03/17): Enterococcus Faecalis-->sensitive to Vancomycin and PCN * Blood cultures (03/03/17): No growth at 5 days * Urine culture (03/02/17): Enterococcus Faecalis * Blood culture (03/02/17): Bacillus species * Blood Culture (03/02/17): no growth after 5 days * Leg Right and Left (03/02/17): Serratia Marcescens and Enterococcus Faecalis * Repeat Blood Culture (03/07): Negative at 5 days * Repeat Urine Culture (04/06): NO growth * Patient was treated with Ampicillin and Rocephin through 03/11/17. He was switched to Ciprofloxicin on 03/11/17 and this was discontinued by ID on 03/13/17. 4). Hx Atrial Fibrillation * Amiodarone 200 mg PO 2x/day * held Metoprolol 100 mg PO Q12H secondary to hypotension * Cardizem 360 mg PO 1x/day * Coumadin 4 mg PO x 1 dose tonight, INR: 2.7 5). Hx Seizure Disorder * Because of Elevated LFTs his Dilantin was discontinued and Neurology Dr. Onesimo Hogan started him on Keppra 500 mg PO 2x/day 6). Hx Multiple CVAs * Crestor is being held considering the elevated LFTs and that his Lipid Profile is currently WNL. * Repeat Lipid Panel in 1 month to see where we are with this. * ASA 81 mg PO 1x/day * Keep the blood pressure under control 7). Hx Elevated LFTs * Could have been secondary to the Dilantin and the Crestor. The Crestor is being held and the Dilantin was switched over to Keppra. * The LFTs have normalized as of 03/14/17 8). Hx Elevated WBC * Normalized * Likely secondary to the Sepsis as mentioned above * NO fevers * Vitals are stable 9). Hx Enlarged Prostate and Urinary Retention * Proscar 5 mg PO 1x/day * Flomax 0.4 mg PO 1x/day * Patient had urinary retention on 03/20-->patient had urinary straight cath 10). Anemia Likely Secondary to Chronic Disease * HgB/Hct are stable 11). Prophylaxis * Colace 100 mg PO 2x/day * Pepcid 20 mg PO 1x/day * Bacid 1 cap PO 2x/day with STOP on 04/14/17 * Zofran 4 mg IV Q6H PRN N/V * DVT Prophylaxis: he is on coumadin Disposition: Patient is pending [employer] approval. Daughter requests for [facility] for for TRENT/Acute Rehab.
[2017-03-21 07:11] LABS: INR 3.1
[2017-03-21] MEDS: Lactobacillus Acidophilus 500 MU Cap PO SCH ×2 (10:12→17:38)
[2017-03-21] MEDS: diltiaZEM 180 mg/24 Hours CD Cap PO SCH (10:12)
--- NOTE | 2017-03-21 23:17 | CP.PCM.PN ---
<Palak Espinosa - Last Filed: 03/22/17 00:52> Subjective - Date & Time of Evaluation Date of Evaluation: 03/22/17 Time of Evaluation: 00:30 - Subjective Subjective: Medicine Note for Dr. Skinner Patient seen and examined at bedside. Patient resting comfortably in bed. No acute complaints. Denied fever, chills, headache, chest pain, SOB, abdominal pain, n/v/d/c, or urinary symptoms. Objective - Vital Signs/Intake and Output Vital Signs (last 24 hours): Temp Pulse Resp BP Pulse Ox 98 F 74 20 106/67 99 03/21/17 16:00 03/21/17 16:00 03/21/17 16:00 03/21/17 16:00 03/21/17 16:00 Intake and Output: 03/21/17 03/22/17 18:59 06:59 Intake Total 900 300 Output Total 302 Balance 598 300 - Medications Medications: Current Medications Amiodarone HCl (Cordarone) 200 mg PO BID [facility] Last Admin: 03/21/17 17:39 Dose: 200 mg Aspirin (Aspirin Chewable) 81 mg PO DAILY [facility] Last Admin: 03/21/17 10:12 Dose: 81 mg Diltiazem HCl (Cardizem Cd) 360 mg PO DAILY [facility] Last Admin: 03/21/17 10:12 Dose: 360 mg Docusate Sodium (Colace) 100 mg PO BID [facility] Last Admin: 03/21/17 17:38 Dose: 100 mg Famotidine (Pepcid) 20 mg PO DAILY [facility] Last Admin: 03/21/17 10:12 Dose: 20 mg Finasteride (Proscar) 5 mg PO DAILY [facility] Last Admin: 03/21/17 10:12 Dose: 5 mg Gabapentin (Neurontin) 300 mg PO TID [facility] Last Admin: 03/21/17 17:38 Dose: 300 mg Lactobacillus Acidophilus (Bacid Acidophilus) 1 cap PO BID [facility] Stop: 04/14/17 18:00 Last Admin: 03/21/17 17:38 Dose: 1 cap Levetiracetam (Keppra) 500 mg PO BID [facility] Last Admin: 03/21/17 17:39 Dose: 500 mg Losartan Potassium (Cozaar) 25 mg PO DAILY [facility] Last Admin: 03/21/17 10:12 Dose: 25 mg Morphine Sulfate (Morphine) 2 mg IVP Q4 PRN PRN Reason: Pain, severe (8-10) Last Admin: 03/16/17 10:16 Dose: 2 mg Ondansetron HCl (Zofran Inj) 4 mg IVP Q6 PRN PRN Reason: Nausea/Vomiting Tamsulosin HCl (Flomax) 0.4 mg PO DAILY [facility] Last Admin: 03/21/17 10:11 Dose: 0.4 mg - Labs Labs: 03/20/17 08:29 03/20/17 08:29 PT 36.2 SECONDS (9.7-12.2) H* 03/21/17 06:55 INR 3.1 03/21/17 06:55 APTT 28 SECONDS (21-34) D 03/09/17 11:30 - Additional Findings Additional findings: - Constitutional Appears: No Acute Distress - Head Exam Head Exam: NORMAL INSPECTION, NORMOCEPHALIC - Eye Exam Eye Exam: EOMI, Normal appearance, PERRL Pupil Exam: NORMAL ACCOMODATION - ENT Exam ENT Exam: Mucous Membranes Moist, Normal Exam - Respiratory Exam Respiratory Exam: Clear to Ausculation Bilateral, NORMAL BREATHING PATTERN. absent: Decreased Breath Sounds, Wheezes - Cardiovascular Exam Cardiovascular Exam: REGULAR RHYTHM, RRR, +S1, +S2 - GI/Abdominal Exam GI & Abdominal Exam: Soft, Normal Bowel Sounds. absent: Distended, Tenderness Additional comments: Bilateral Groin surgical site (from bilateral thrombectomies): neo removed by Vascular Surgery and placed sutures. NO wound dehiscence - Rectal Exam Rectal Exam: Deferred - Extremities Exam Additional comments: Bilateral AKA surgical site: surgical neo are in place, NO wound dehiscence - Neurological Exam Neurological Exam: Alert, Awake, Oriented x3 - Psychiatric Exam Psychiatric exam: Normal Affect, Normal Mood - Skin Skin Exam: Dry, Intact, Normal Color, Warm Additional comments: Skin: no sacral ulcers and no ulcers noted on any of the indigo prominences Assessment and Plan - Assessment and Plan (Free Text) Plan: 1). PAD S/P Bilateral AKA 03/04/17 * Vascular Surgery (Dr. Kaur) on the case help appreciated * Cardiology (Dr. Brown) on the case help appreciated * Coumadin 2mg PO tonight, INR: 3.1 * Goal INR is 2.5 to 3.[address] Brown * Neo to Surgical Site to removed when Ok with Vascular Surgery Dr. Kaur -->neo to be removed in a month from surgery (04/03/17) * Morphine 2 mg IV Q4H PRN Severe Pain * Gabapentin 300 mg PO 3x/day 2). Hx Malignant HTN * B/P running on the low end, continue to monitor. Patient is asymptomatic * Held Metoprolol 100 mg PO Q12H in light of hypotension on 03/17; given fluid bolus on 03/17 * Cardizem 360 mg PO 1x/day * Cozaar 25 mg PO 1x/day 3). Hx Sepsis * Secondary to gangrenous bilateral legs, +blood culture code sepsis called on * Urine Culture (03/03/17): Enterococcus Faecalis-->sensitive to Vancomycin and PCN * Blood cultures (03/03/17): No growth at 5 days * Urine culture (03/02/17): Enterococcus Faecalis * Blood culture (03/02/17): Bacillus species * Blood Culture (03/02/17): no growth after 5 days * Leg Right and Left (03/02/17): Serratia Marcescens and Enterococcus Faecalis * Repeat Blood Culture (03/07): Negative at 5 days * Repeat Urine Culture (04/06): NO growth * Patient was treated with Ampicillin and Rocephin through 03/11/17. He was switched to Ciprofloxicin on 03/11/17 and this was discontinued by ID on 03/13/17. 4). Hx Atrial Fibrillation * Amiodarone 200 mg PO 2x/day * held Metoprolol 100 mg PO Q12H secondary to hypotension * Cardizem 360 mg PO 1x/day * Coumadin 4 mg PO x 1 dose tonight, INR: 2.7 5). Hx Seizure Disorder * Because of Elevated LFTs his Dilantin was discontinued and Neurology Dr. Onesimo Hogan started him on Keppra 500 mg PO 2x/day 6). Hx Multiple CVAs * Crestor is being held considering the elevated LFTs and that his Lipid Profile is currently WNL. * Repeat Lipid Panel in 1 month to see where we are with this. * ASA 81 mg PO 1x/day * Keep the blood pressure under control 7). Hx Elevated LFTs * Could have been secondary to the Dilantin and the Crestor. The Crestor is being held and the Dilantin was switched over to Keppra. * The LFTs have normalized as of 03/14/17 8). Hx Elevated WBC * Normalized * Likely secondary to the Sepsis as mentioned above * NO fevers * Vitals are stable 9). Hx Enlarged Prostate and Urinary Retention * Proscar 5 mg PO 1x/day * Flomax 0.4 mg PO 1x/day * Patient had urinary retention on 03/20-->patient had urinary straight cath 10). Anemia Likely Secondary to Chronic Disease * HgB/Hct are stable 11). Prophylaxis * Colace 100 mg PO 2x/day * Pepcid 20 mg PO 1x/day * Bacid 1 cap PO 2x/day with STOP on 04/14/17 * Zofran 4 mg IV Q6H PRN N/V * DVT Prophylaxis: he is on coumadin Disposition: Patient is pending [employer] approval. Daughter requests for [facility] for for TRENT/Acute Rehab. DW Francisca Deras DO, PGY-1 <Alexandra Skinner V - Last Filed: 03/22/17 09:41> Objective - Vital Signs/Intake and Output Vital Signs (last 24 hours): Temp Pulse Resp BP Pulse Ox 97.9 F 80 20 120/79 98 03/22/17 07:41 03/22/17 07:41 03/22/17 07:41 03/22/17 07:41 03/22/17 07:41 Intake and Output: 03/22/17 03/22/17 06:59 18:59 Intake Total 300 300 Balance 300 300 - Medications Medications: Current Medications Amiodarone HCl (Cordarone) 200 mg PO BID [facility] Last Admin: 03/21/17 17:39 Dose: 200 mg Aspirin (Aspirin Chewable) 81 mg PO DAILY [facility] Last Admin: 03/21/17 10:12 Dose: 81 mg Diltiazem HCl (Cardizem Cd) 360 mg PO DAILY [facility] Last Admin: 03/21/17 10:12 Dose: 360 mg Docusate Sodium (Colace) 100 mg PO BID [facility] Last Admin: 03/21/17 17:38 Dose: 100 mg Famotidine (Pepcid) 20 mg PO DAILY [facility] Last Admin: 03/21/17 10:12 Dose: 20 mg Finasteride (Proscar) 5 mg PO DAILY [facility] Last Admin: 03/21/17 10:12 Dose: 5 mg Gabapentin (Neurontin) 300 mg PO TID [facility] Last Admin: 03/21/17 17:38 Dose: 300 mg Lactobacillus Acidophilus (Bacid Acidophilus) 1 cap PO BID [facility] Stop: 04/14/17 18:00 Last Admin: 03/21/17 17:38 Dose: 1 cap Levetiracetam (Keppra) 500 mg PO BID [facility] Last Admin: 03/21/17 17:39 Dose: 500 mg Losartan Potassium (Cozaar) 25 mg PO DAILY [facility] Last Admin: 03/21/17 10:12 Dose: 25 mg Morphine Sulfate (Morphine) 2 mg IVP Q4 PRN PRN Reason: Pain, severe (8-10) Last Admin: 03/16/17 10:16 Dose: 2 mg Ondansetron HCl (Zofran Inj) 4 mg IVP Q6 PRN PRN Reason: Nausea/Vomiting Tamsulosin HCl (Flomax) 0.4 mg PO DAILY [facility] Last Admin: 03/21/17 10:11 Dose: 0.4 mg - Labs Labs: 03/20/17 08:29 03/20/17 08:29 PT 36.2 SECONDS (9.7-12.2) H* 03/21/17 06:55 INR 3.1 03/21/17 06:55 APTT 28 SECONDS (21-34) D 03/09/17 11:30 Attending/Attestation - Attestation I have personally seen and examined this patient.: Yes I have fully participated in the care of the patient.: Yes I have reviewed all pertinent clinical information, including history, physical exam and plan: Yes Notes (Text): Patient seen, examined, and case discussed with day-time resident. Patient reports he has a small cold and with dry cough. Patient asking for a sleeping pill; reports he is not sleeping well at night. Will order Chest Xray portable given URI. Will given promethazine w codeine 5ml PO Q 4H prn cough. Patient had bowel movement this morning. No rashes. No signs of bleeding. Pending INR for Coumadin dose tonight. Will restart low dose statin tonight, monitor LFTs Assessment/Plan 1). PAD S/P Bilateral AKA 03/04/17 * Vascular Surgery (Dr. Kaur) on the case help appreciated * Cardiology (Dr. Brown) on the case help appreciated * Coumadin 2mg PO tonight, INR: 3.1 * Goal INR is 2.5 to 3.[address] Brown * [place] to Surgical Site to removed when Ok with Vascular Surgery Dr. Kaur -->neo to be removed in a month from surgery (04/03/17) * Morphine 2 mg IV Q4H PRN Severe Pain * Gabapentin 300 mg PO 3x/day 2). Hx Malignant HTN * B/P running on the low end, continue to monitor. Patient is asymptomatic * Held Metoprolol 100 mg PO Q12H in light of hypotension on 03/17; given fluid bolus on 03/17 * Cardizem 360 mg PO 1x/day * Cozaar 25 mg PO 1x/day 3). Hx Sepsis--Resolved * Secondary to gangrenous bilateral legs, +blood culture code sepsis called on * Urine Culture (03/03/17): Enterococcus Faecalis-->sensitive to Vancomycin and PCN * Blood cultures (03/03/17): No growth at 5 days * Urine culture (03/02/17): Enterococcus Faecalis * Blood culture (03/02/17): Bacillus species * Blood Culture (03/02/17): no growth after 5 days * Leg Right and Left (03/02/17): Serratia Marcescens and Enterococcus Faecalis * Repeat Blood Culture (03/07): Negative at 5 days * Repeat Urine Culture (04/06): NO growth * Patient was treated with Ampicillin and Rocephin through 03/11/17. He was switched to Ciprofloxicin on 03/11/17 and this was discontinued by ID on 03/13/17. 4). Hx Atrial Fibrillation * Amiodarone 200 mg PO 2x/day * held Metoprolol 100 mg PO Q12H secondary to hypotension * Cardizem 360 mg PO 1x/day * Pending INR for Coumadin tonight 5). Hx Seizure Disorder * Because of Elevated LFTs his Dilantin was discontinued and Neurology Dr. Onesimo Hogan started him on Keppra 500 mg PO 2x/day 6). Hx Multiple CVAs * Crestor is being held considering the elevated LFTs and that his Lipid Profile is currently WNL. * Repeat Lipid Panel in 1 month to see where we are with this. * ASA 81 mg PO 1x/day * Keep the blood pressure under control 7). Hx Elevated LFTs-->resolved * Could have been secondary to the Dilantin and the Crestor. The Crestor is being held and the Dilantin was switched over to Keppra. * The LFTs have normalized as of 03/14/17 8). Hx Elevated WBC-->resolved * Normalized * Likely secondary to the Sepsis as mentioned above * NO fevers * Vitals are stable 9). Hx Enlarged Prostate and Urinary Retention * Proscar 5 mg PO 1x/day * Flomax 0.4 mg PO 1x/day * Patient had urinary retention on 03/20-->patient had urinary straight cath 10). Anemia Likely Secondary to Chronic Disease * HgB/Hct are stable 11). Prophylaxis * Colace 100 mg PO 2x/day * Pepcid 20 mg PO 1x/day * Bacid 1 cap PO 2x/day with STOP on 04/14/17 * Zofran 4 mg IV Q6H PRN N/V * DVT Prophylaxis: he is on coumadin Disposition: Patient is pending [employer] approval. Daughter requests for [facility] for for TRENT/Acute Rehab.1
[2017-03-22] MEDS ORDERED: Promethazine/Cod 6.25mg-10mg/5ml Syr UD PO PRN (09:39)
[2017-03-22] MEDS: Lactobacillus Acidophilus 500 MU Cap PO SCH ×2 (09:59→18:12)
[2017-03-22] MEDS: diltiaZEM 180 mg/24 Hours CD Cap PO SCH (10:00)
[2017-03-22 12:05] LABS: INR 2.5
--- NOTE | 2017-03-22 14:49 | RAD ---
HISTORY: cough COMPARISON: Comparison is made to 03/04/2027 FINDINGS: LUNGS: Interval appearance of hazy opacity at the right lung base may represent a pneumonia or atelectasis. PLEURA: Blunting of the right costophrenic angle is noted CARDIOVASCULAR: Normal. OSSEOUS STRUCTURES: No significant abnormalities. VISUALIZED UPPER ABDOMEN: Normal. OTHER FINDINGS: None. IMPRESSION: Interval appearance of heterogeneous opacity at the right lung base may represent pneumonia or atelectasis. Otherwise no interval change.
[2017-03-23 07:45] LABS: BASO % 0.3 % (0.0-2.0); EOS # 0.1 K/uL (0.0-0.7); EOS % 1.1 % (0.0-4.0); HEMATOCRIT 34.5 % (35.0-51.0); LYMPH # 1.8 K/uL (1.0-4.3); LYMPH % 27.8 % (20.0-40.0); MEAN CELL VOLUME 81.3 fL (80.0-94.0); MEAN CORPUSCULAR HEMOGLOBIN 27.2 pg (27.0-31.0); MEAN CORPUSCULAR HGB CONC 33.4 g/dL (33.0-37.0); MEAN PLATELET VOLUME 7.5 fL (7.2-11.7); MONO # 0.3 K/uL (0.0-0.8); MONO % 4.8 % (0.0-10.0); RED CELL DISTRIBUTION WIDTH 17.3 % (11.5-14.5); WHITE BLOOD COUNT 6.5 K/uL (4.8-10.8)
--- NOTE | 2017-03-23 08:06 | CP.PCM.PN ---
<Palak Espinosa - Last Filed: 03/23/17 13:04> Subjective - Date & Time of Evaluation Date of Evaluation: 03/23/17 Time of Evaluation: 07:00 - Subjective Subjective: Medicine Note for Dr. Soriano Patient was seen and examined at bedside. No acute complaints. Denied fever, chills, headache, SOB, chest pain, abdominal pain, n/v/d/c, or urinary symptoms. Objective - Vital Signs/Intake and Output Vital Signs (last 24 hours): Temp Pulse Resp BP Pulse Ox 97.8 F 75 20 118/75 98 03/22/17 23:24 03/22/17 23:24 03/22/17 23:24 03/22/17 23:24 03/22/17 23:24 Intake and Output: 03/23/17 03/23/17 06:59 18:59 Intake Total 700 Balance 700 - Medications Medications: Current Medications Amiodarone HCl (Cordarone) 200 mg PO BID [facility] Last Admin: 03/22/17 18:10 Dose: 200 mg Aspirin (Aspirin Chewable) 81 mg PO DAILY [facility] Last Admin: 03/22/17 09:59 Dose: 81 mg Diltiazem HCl (Cardizem Cd) 360 mg PO DAILY [facility] Last Admin: 03/22/17 10:00 Dose: 360 mg Docusate Sodium (Colace) 100 mg PO BID [facility] Last Admin: 03/22/17 18:10 Dose: 100 mg Famotidine (Pepcid) 20 mg PO DAILY [facility] Last Admin: 03/22/17 09:59 Dose: 20 mg Finasteride (Proscar) 5 mg PO DAILY [facility] Last Admin: 03/22/17 09:59 Dose: 5 mg Gabapentin (Neurontin) 300 mg PO TID [facility] Last Admin: 03/22/17 18:10 Dose: 300 mg Lactobacillus Acidophilus (Bacid Acidophilus) 1 cap PO BID [facility] Stop: 04/14/17 18:00 Last Admin: 03/22/17 18:12 Dose: 1 cap Levetiracetam (Keppra) 500 mg PO BID [facility] Last Admin: 03/22/17 18:10 Dose: 500 mg Losartan Potassium (Cozaar) 25 mg PO DAILY [facility] Last Admin: 03/22/17 09:59 Dose: 25 mg Morphine Sulfate (Morphine) 2 mg IVP Q4 PRN PRN Reason: Pain, severe (8-10) Last Admin: 03/16/17 10:16 Dose: 2 mg Ondansetron HCl (Zofran Inj) 4 mg IVP Q6 PRN PRN Reason: Nausea/Vomiting Promethazine HCl/Codeine (Phenergan/Codeine Oral Syrup) 5 ml PO Q4 PRN PRN Reason: Cough Rosuvastatin Calcium (Crestor) 5 mg PO HS [facility] Tamsulosin HCl (Flomax) 0.4 mg PO DAILY [facility] Last Admin: 03/22/17 09:59 Dose: 0.4 mg - Labs Labs: 03/23/17 07:36 03/20/17 08:29 PT 29.5 SECONDS (9.7-12.2) H* D 03/22/17 11:27 INR 2.5 D 03/22/17 11:27 APTT 28 SECONDS (21-34) D 03/09/17 11:30 - Additional Findings Additional findings: - Constitutional Appears: No Acute Distress - Head Exam Head Exam: NORMAL INSPECTION, NORMOCEPHALIC - Eye Exam Eye Exam: EOMI, Normal appearance, PERRL Pupil Exam: NORMAL ACCOMODATION - ENT Exam ENT Exam: Mucous Membranes Moist, Normal Exam - Respiratory Exam Respiratory Exam: Clear to Ausculation Bilateral, NORMAL BREATHING PATTERN. absent: Decreased Breath Sounds, Wheezes - Cardiovascular Exam Cardiovascular Exam: REGULAR RHYTHM, RRR, +S1, +S2 - GI/Abdominal Exam GI & Abdominal Exam: Soft, Normal Bowel Sounds. absent: Distended, Tenderness Additional comments: Bilateral Groin surgical site (from bilateral thrombectomies): mehran removed by Vascular Surgery and placed sutures. 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 He underwent bilateral thrombectomy on 02/05/17. The status of his bilateral lower legs worsened subsequently ( formation of bullae and sloughing of skin and these extremities cool to the touch and intense pain with minor palpation). Cultures from the bilateral lower legs revealed Serratia marcescens and Enterococcus faecalis. Blood Culture was positive for Bacillus species and Urine Cultures positive for Enterococcus faecalis. Because of the likelihood of sepsis, family decided on amputation. 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 Family has completed Medicaid Application and awaiting approval for TRENT placement. Plan: PAD S/P Bilateral AKA 03/04/17 * Vascular Surgery (Dr. Kaur) on the case help appreciated * Cardiology (Dr. Brown) on the case help appreciated * Daily Coumadin * Goal INR is 2.5 to 3.[address] Brown * [place] to Surgical Site to removed when Ok with Vascular Surgery Dr. Kaur -->mehran to be removed in a month from surgery (04/03/17) * Morphine 2 mg IV Q4H PRN Severe Pain * Gabapentin 300 mg PO 3x/day Cough * CXR 03/22/17: Interval appearance of heterogeneous opacity at the right lung base may represent pneumonia or atelectasis. Otherwise no interval change. * Increase opacity noted when comparted to 02/20/17 CXR * Promethazine PRN Hx Malignant HTN * B/P running on the low end, continue to monitor. Patient is asymptomatic * Held Metoprolol 100 mg PO Q12H in light of hypotension on 03/17; given fluid bolus on 03/17 * Cardizem 360 mg PO 1x/day * Cozaar 25 mg PO 1x/day Hx Sepsis--Resolved * Secondary to gangrenous bilateral legs, +blood culture code sepsis called on * Urine Culture (03/03/17): Enterococcus Faecalis-->sensitive to Vancomycin and PCN * Blood cultures (03/03/17): No growth at 5 days * Urine culture (03/02/17): Enterococcus Faecalis * Blood culture (03/02/17): Bacillus species * Blood Culture (03/02/17): no growth after 5 days * Leg Right and Left (03/02/17): Serratia Marcescens and Enterococcus Faecalis * Repeat Blood Culture (03/07): Negative at 5 days * Repeat Urine Culture (04/06): NO growth * Patient was treated with Ampicillin and Rocephin through 03/11/17. He was switched to Ciprofloxicin on 03/11/17 and this was discontinued by ID on 03/13/17. Hx Atrial Fibrillation * Amiodarone 200 mg PO 2x/day * held Metoprolol 100 mg PO Q12H secondary to hypotension * Cardizem 360 mg PO 1x/day * Pending INR for Coumadin tonight Hx Seizure Disorder * Because of Elevated LFTs his Dilantin was discontinued and Neurology Dr. Onesimo Hogan started him on Keppra 500 mg PO 2x/day Hx Multiple CVAs * Crestor is being held considering the elevated LFTs and that his Lipid Profile is currently WNL. * Repeat Lipid Panel in 1 month to see where we are with this. * ASA 81 mg PO 1x/day * Keep the blood pressure under control Hx Elevated LFTs-->resolved * Could have been secondary to the Dilantin and the Crestor. The Crestor is being held and the Dilantin was switched over to Keppra. * The LFTs have normalized as of 03/14/17 Hx Elevated WBC-->resolved * Normalized * Likely secondary to the Sepsis as mentioned above * NO fevers * Vitals are stable Hx Enlarged Prostate and Urinary Retention * Proscar 5 mg PO 1x/day * Flomax 0.4 mg PO 1x/day * Patient had urinary retention on 03/20-->patient had urinary straight cath Anemia Likely Secondary to Chronic Disease * HgB/Hct are stable Prophylaxis * Colace 100 mg PO 2x/day * Pepcid 20 mg PO 1x/day * Bacid 1 cap PO 2x/day with STOP on 04/14/17 * Zofran 4 mg IV Q6H PRN N/V * DVT Prophylaxis: he is on coumadin Disposition: Patient is pending [employer] approval. Daughter requests for [facility] for for TRENT/Acute Rehab. DW Francisca Esteban DO, PGY-1 <Brandon Soriano - Last Filed: 04/02/17 17:40> Objective - Vital Signs/Intake and Output Vital Signs (last 24 hours): Temp Pulse Resp BP Pulse Ox 97.4 F L 59 L 20 113/64 98 04/02/17 15:00 04/02/17 15:00 04/02/17 15:00 04/02/17 15:00 04/02/17 15:00 Intake and Output: 04/02/17 04/02/17 06:59 18:59 Intake Total 240 240 Output Total 300 400 Balance -60 -160 - Medications Medications: Current Medications Amiodarone HCl (Cordarone) 200 mg PO BID [facility] Last Admin: 04/02/17 11:09 Dose: 200 mg Aspirin (Aspirin Chewable) 81 mg PO DAILY [facility] Last Admin: 04/02/17 11:09 Dose: 81 mg Diltiazem HCl (Cardizem Cd) 360 mg PO DAILY [facility] Last Admin: 04/02/17 11:10 Dose: 360 mg Docusate Sodium (Colace) 100 mg PO BID [facility] Last Admin: 04/02/17 11:09 Dose: 100 mg Famotidine (Pepcid) 20 mg PO DAILY [facility] Last Admin: 04/02/17 11:10 Dose: 20 mg Finasteride (Proscar) 5 mg PO DAILY [facility] Last Admin: 04/02/17 11:09 Dose: 5 mg Gabapentin (Neurontin) 300 mg PO TID [facility] Last Admin: 04/02/17 14:41 Dose: 300 mg Lactobacillus Acidophilus (Bacid Acidophilus) 1 cap PO BID [facility] Stop: 04/14/17 18:00 Last Admin: 04/02/17 11:10 Dose: 1 cap Levetiracetam (Keppra) 500 mg PO BID [facility] Last Admin: 04/02/17 11:09 Dose: 500 mg Ondansetron HCl (Zofran Inj) 4 mg IVP Q6 PRN PRN Reason: Nausea/Vomiting Promethazine HCl/Codeine (Phenergan/Codeine Oral Syrup) 5 ml PO Q4 PRN PRN Reason: Cough Rosuvastatin Calcium (Crestor) 5 mg PO HS [facility] Last Admin: 04/01/17 21:29 Dose: 5 mg Tamsulosin HCl (Flomax) 0.4 mg PO DAILY [facility] Last Admin: 04/02/17 11:10 Dose: 0.4 mg Warfarin Sodium (Coumadin) 1 mg PO 1800 [facility] Stop: 04/02/17 19:10 Warfarin Sodium (Coumadin) 3 mg PO 1800 [facility] Stop: 04/02/17 18:01 - Labs Labs: 04/01/17 11:19 04/01/17 11:19 PT 31.1 SECONDS (9.7-12.2) H* D 04/02/17 08:09 INR 2.7 D 04/02/17 08:09 APTT 35 SECONDS (21-34) H 04/02/17 08:09 Attending/Attestation - Attestation I have personally seen and examined this patient.: Yes I have fully participated in the care of the patient.: Yes I have reviewed all pertinent clinical information, including history, physical exam and plan: Yes Notes (Text): PAD S/P Bilateral AKA on 03/04/17 Cough Hx Malignant HTN awaiting TRENT
[2017-03-23 08:24] LABS: CHLORIDE 101 mmol/L (98-107); POTASSIUM 3.8 mmol/L (3.6-5.2); SODIUM 133 mmol/L (132-148)
[2017-03-23 08:26] LABS: BILIRUBIN,TOTAL 0.5 mg/dL (0.2-1.3); CARBON DIOXIDE 24 mmol/L (22-30); GFR AFRICAN-AMERICAN > 60
[2017-03-23 08:27] LABS: ALB/GLOB RATIO 0.8 (1.0-2.1); ALKALINE PHOSPHATASE 136 U/L (38-126); ALT/SGPT 33 U/L (21-72); AST/SGOT 23 U/L (17-59); BLOOD UREA NITROGEN 16 mg/dL (9-20); CALCIUM 7.9 mg/dl (8.6-10.4); GLUCOSE,RANDOM 81 mg/dL (75-110); PHOSPHOROUS 3.3 mg/dL (2.5-4.5); TOTAL PROTEIN 5.9 g/dL (6.3-8.3)
[2017-03-23 08:28] LABS: MAGNESIUM 1.8 mg/dL (1.6-2.3)
[2017-03-23] MEDS: Lactobacillus Acidophilus 500 MU Cap PO SCH ×2 (09:31→17:25)
[2017-03-23] MEDS: diltiaZEM 180 mg/24 Hours CD Cap PO SCH (09:32)
[2017-03-24 06:27] LABS: INR 3.2
--- NOTE | 2017-03-24 07:15 | CP.PCM.PN ---
<Palak Espinosa - Last Filed: 03/24/17 11:25> Subjective - Date & Time of Evaluation Date of Evaluation: 03/24/17 Time of Evaluation: 07:00 - Subjective Subjective: Medicine Note for Dr. Yara Vines Patient was seen and examined at bedside. Patient reports increased parasthesias around the mehran. Denied any pain at the incision site. Denied fever, chills, headache, SOB, chest pain, abdominal pain, n/v/d/c, or urinary symptoms. Objective - Vital Signs/Intake and Output Vital Signs (last 24 hours): Temp Pulse Resp BP Pulse Ox 97.6 F 69 20 116/65 98 03/23/17 23:29 03/23/17 23:29 03/23/17 23:29 03/23/17 23:29 03/23/17 23:29 Intake and Output: 03/24/17 03/24/17 06:59 18:59 Intake Total 540 Balance 540 - Medications Medications: Current Medications Amiodarone HCl (Cordarone) 200 mg PO BID [facility] Last Admin: 03/23/17 17:25 Dose: 200 mg Aspirin (Aspirin Chewable) 81 mg PO DAILY [facility] Last Admin: 03/23/17 09:31 Dose: 81 mg Diltiazem HCl (Cardizem Cd) 360 mg PO DAILY [facility] Last Admin: 03/23/17 09:32 Dose: 360 mg Docusate Sodium (Colace) 100 mg PO BID [facility] Last Admin: 03/23/17 17:25 Dose: 100 mg Famotidine (Pepcid) 20 mg PO DAILY [facility] Last Admin: 03/23/17 09:33 Dose: 20 mg Finasteride (Proscar) 5 mg PO DAILY [facility] Last Admin: 03/23/17 09:33 Dose: 5 mg Gabapentin (Neurontin) 300 mg PO TID [facility] Last Admin: 03/23/17 17:25 Dose: 300 mg Lactobacillus Acidophilus (Bacid Acidophilus) 1 cap PO BID [facility] Stop: 04/14/17 18:00 Last Admin: 03/23/17 17:25 Dose: 1 cap Levetiracetam (Keppra) 500 mg PO BID [facility] Last Admin: 03/23/17 17:25 Dose: 500 mg Losartan Potassium (Cozaar) 25 mg PO DAILY [facility] Last Admin: 03/23/17 09:32 Dose: 25 mg Morphine Sulfate (Morphine) 2 mg IVP Q4 PRN PRN Reason: Pain, severe (8-10) Last Admin: 03/23/17 21:59 Dose: 2 mg Ondansetron HCl (Zofran Inj) 4 mg IVP Q6 PRN PRN Reason: Nausea/Vomiting Promethazine HCl/Codeine (Phenergan/Codeine Oral Syrup) 5 ml PO Q4 PRN PRN Reason: Cough Rosuvastatin Calcium (Crestor) 5 mg PO HS [facility] Last Admin: 03/23/17 21:31 Dose: 5 mg Tamsulosin HCl (Flomax) 0.4 mg PO DAILY [facility] Last Admin: 03/23/17 09:32 Dose: 0.4 mg Warfarin Sodium (Coumadin) 3 mg PO 1800 [facility] Stop: 03/24/17 18:01 - Labs Labs: 03/23/17 07:36 03/23/17 07:36 PT 37.6 SECONDS (9.7-12.2) H* D 03/24/17 06:07 INR 3.2 03/24/17 06:07 APTT 28 SECONDS (21-34) D 03/09/17 11:30 - Additional Findings Additional findings: - Constitutional Appears: No Acute Distress - Head Exam Head Exam: NORMAL INSPECTION, NORMOCEPHALIC - Eye Exam Eye Exam: EOMI, Normal appearance, PERRL Pupil Exam: NORMAL ACCOMODATION - ENT Exam ENT Exam: Mucous Membranes Moist, Normal Exam - Respiratory Exam Respiratory Exam: Clear to Ausculation Bilateral, NORMAL BREATHING PATTERN. absent: Decreased Breath Sounds, Wheezes - Cardiovascular Exam Cardiovascular Exam: REGULAR RHYTHM, RRR, +S1, +S2 - GI/Abdominal Exam GI & Abdominal Exam: Soft, Normal Bowel Sounds. absent: Distended, Tenderness Additional comments: Bilateral Groin surgical site (from bilateral thrombectomies): mehran removed by Vascular Surgery and placed sutures. 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 He underwent bilateral thrombectomy on 02/05/17. The status of his bilateral lower legs worsened subsequently ( formation of bullae and sloughing of skin and these extremities cool to the touch and intense pain with minor palpation). Cultures from the bilateral lower legs revealed Serratia marcescens and Enterococcus faecalis. Blood Culture was positive for Bacillus species and Urine Cultures positive for Enterococcus faecalis. Because of the likelihood of sepsis, family decided on amputation. 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 Family has completed Medicaid Application and awaiting approval for TRENT placement. Plan: PAD S/P Bilateral AKA 03/04/17 * Vascular Surgery (Dr. Kaur) on the case help appreciated * Cardiology (Dr. Brown) on the case help appreciated * Daily Coumadin * Goal INR is 2.5 to 3.[address] Brown * [place] to Surgical Site to removed when Ok with Vascular Surgery Dr. Kaur -->mehran to be removed in a month from surgery (04/03/17) * Morphine 2 mg IV Q4H PRN Severe Pain * Gabapentin 300 mg PO 3x/day Cough * CXR 03/22/17: Interval appearance of heterogeneous opacity at the right lung base may represent pneumonia or atelectasis. Otherwise no interval change. * Increase opacity noted when comparted to 02/20/17 CXR * Promethazine PRN Hx Malignant HTN * B/P running on the low end, continue to monitor. Patient is asymptomatic * Held Metoprolol 100 mg PO Q12H in light of hypotension on 03/17; given fluid bolus on 03/17 * Cardizem 360 mg PO 1x/day * Cozaar 25 mg PO 1x/day Hx Sepsis--Resolved * Secondary to gangrenous bilateral legs, +blood culture code sepsis called on * Urine Culture (03/03/17): Enterococcus Faecalis-->sensitive to Vancomycin and PCN * Blood cultures (03/03/17): No growth at 5 days * Urine culture (03/02/17): Enterococcus Faecalis * Blood culture (03/02/17): Bacillus species * Blood Culture (03/02/17): no growth after 5 days * Leg Right and Left (03/02/17): Serratia Marcescens and Enterococcus Faecalis * Repeat Blood Culture (03/07): Negative at 5 days * Repeat Urine Culture (04/06): NO growth * Patient was treated with Ampicillin and Rocephin through 03/11/17. He was switched to Ciprofloxicin on 03/11/17 and this was discontinued by ID on 03/13/17. Hx Atrial Fibrillation * Amiodarone 200 mg PO 2x/day * held Metoprolol 100 mg PO Q12H secondary to hypotension * Cardizem 360 mg PO 1x/day * Pending INR for Coumadin tonight Hx Seizure Disorder * Because of Elevated LFTs his Dilantin was discontinued and Neurology Dr. Onesimo Hogan started him on Keppra 500 mg PO 2x/day Hx Multiple CVAs * Crestor is being held considering the elevated LFTs and that his Lipid Profile is currently WNL. * Repeat Lipid Panel in 1 month to see where we are with this. * ASA 81 mg PO 1x/day * Keep the blood pressure under control Hx Elevated LFTs-->resolved * Could have been secondary to the Dilantin and the Crestor. The Crestor is being held and the Dilantin was switched over to Keppra. * The LFTs have normalized as of 03/14/17 Hx Elevated WBC-->resolved * Normalized * Likely secondary to the Sepsis as mentioned above * NO fevers * Vitals are stable Hx Enlarged Prostate and Urinary Retention * Proscar 5 mg PO 1x/day * Flomax 0.4 mg PO 1x/day * Patient had urinary retention on 03/20-->patient had urinary straight cath Anemia Likely Secondary to Chronic Disease * HgB/Hct are stable Prophylaxis * Colace 100 mg PO 2x/day * Pepcid 20 mg PO 1x/day * Bacid 1 cap PO 2x/day with STOP on 04/14/17 * Zofran 4 mg IV Q6H PRN N/V * DVT Prophylaxis: he is on coumadin Disposition: Patient is pending [employer] approval. Daughter requests for [facility] for for TRENT/Acute Rehab. DW Francisca Parra DO, PGY-1 <Unruly Vines - Last Filed: 03/24/17 19:45> Objective - Vital Signs/Intake and Output Vital Signs (last 24 hours): Temp Pulse Resp BP Pulse Ox 97.5 F L 83 20 112/63 98 03/24/17 15:28 03/24/17 15:28 03/24/17 15:28 03/24/17 15:28 03/24/17 15:28 - Medications Medications: Current Medications Amiodarone HCl (Cordarone) 200 mg PO BID [facility] Last Admin: 03/24/17 17:41 Dose: 200 mg Aspirin (Aspirin Chewable) 81 mg PO DAILY [facility] Last Admin: 03/24/17 09:54 Dose: 81 mg Diltiazem HCl (Cardizem Cd) 360 mg PO DAILY [facility] Last Admin: 03/24/17 09:54 Dose: 360 mg Docusate Sodium (Colace) 100 mg PO BID [facility] Last Admin: 03/24/17 17:40 Dose: 100 mg Famotidine (Pepcid) 20 mg PO DAILY [facility] Last Admin: 03/24/17 09:54 Dose: 20 mg Finasteride (Proscar) 5 mg PO DAILY [facility] Last Admin: 03/24/17 09:54 Dose: 5 mg Gabapentin (Neurontin) 300 mg PO TID [facility] Last Admin: 03/24/17 17:41 Dose: 300 mg Lactobacillus Acidophilus (Bacid Acidophilus) 1 cap PO BID [facility] Stop: 04/14/17 18:00 Last Admin: 03/24/17 17:40 Dose: 1 cap Levetiracetam (Keppra) 500 mg PO BID [facility] Last Admin: 03/24/17 17:42 Dose: 500 mg Losartan Potassium (Cozaar) 25 mg PO DAILY [facility] Last Admin: 03/24/17 09:54 Dose: 25 mg Morphine Sulfate (Morphine) 2 mg IVP Q4 PRN PRN Reason: Pain, severe (8-10) Last Admin: 03/23/17 21:59 Dose: 2 mg Ondansetron HCl (Zofran Inj) 4 mg IVP Q6 PRN PRN Reason: Nausea/Vomiting Promethazine HCl/Codeine (Phenergan/Codeine Oral Syrup) 5 ml PO Q4 PRN PRN Reason: Cough Rosuvastatin Calcium (Crestor) 5 mg PO HS [facility] Last Admin: 03/23/17 21:31 Dose: 5 mg Tamsulosin HCl (Flomax) 0.4 mg PO DAILY [facility] Last Admin: 03/24/17 09:54 Dose: 0.4 mg - Labs Labs: 03/23/17 07:36 03/23/17 07:36 PT 37.6 SECONDS (9.7-12.2) H* D 03/24/17 06:07 INR 3.2 03/24/17 06:07 APTT 28 SECONDS (21-34) D 03/09/17 11:30 Attending/Attestation - Attestation I have personally seen and examined this patient.: Yes I have fully participated in the care of the patient.: Yes I have reviewed all pertinent clinical information, including history, physical exam and plan: Yes Notes (Text): 03/24/17 19:44 Patient was seen and examined shortly after resident. Exam, Assesment and Plan were thoroughly gone over with the resident. Unruly Vines D.O.
[2017-03-24] MEDS: Lactobacillus Acidophilus 500 MU Cap PO SCH ×2 (09:54→17:40)
[2017-03-24] MEDS: diltiaZEM 180 mg/24 Hours CD Cap PO SCH (09:54)
--- NOTE | 2017-03-25 06:21 | CP.PCM.PN ---
<LobitoPalak lawrence - Last Filed: 03/25/17 09:47> Subjective - Date & Time of Evaluation Date of Evaluation: 03/25/17 Time of Evaluation: 07:00 - Subjective Subjective: Medicine Note for Dr. Yara Vines Patient was seen and examined at bedside. Patient reports he is doing well. Denied any pain at the incision site. Denied fever, chills, headache, SOB, chest pain, abdominal pain, n/v/d/c, or urinary symptoms. Objective - Vital Signs/Intake and Output Vital Signs (last 24 hours): Temp Pulse Resp BP Pulse Ox 98.1 F 79 20 121/79 98 03/25/17 00:01 03/25/17 00:01 03/25/17 00:01 03/25/17 00:01 03/25/17 00:01 Intake and Output: 03/24/17 03/25/17 18:59 06:59 Intake Total 340 Balance 340 - Medications Medications: Current Medications Amiodarone HCl (Cordarone) 200 mg PO BID [facility] Last Admin: 03/24/17 17:41 Dose: 200 mg Aspirin (Aspirin Chewable) 81 mg PO DAILY [facility] Last Admin: 03/24/17 09:54 Dose: 81 mg Diltiazem HCl (Cardizem Cd) 360 mg PO DAILY [facility] Last Admin: 03/24/17 09:54 Dose: 360 mg Docusate Sodium (Colace) 100 mg PO BID [facility] Last Admin: 03/24/17 17:40 Dose: 100 mg Famotidine (Pepcid) 20 mg PO DAILY [facility] Last Admin: 03/24/17 09:54 Dose: 20 mg Finasteride (Proscar) 5 mg PO DAILY [facility] Last Admin: 03/24/17 09:54 Dose: 5 mg Gabapentin (Neurontin) 300 mg PO TID [facility] Last Admin: 03/24/17 17:41 Dose: 300 mg Lactobacillus Acidophilus (Bacid Acidophilus) 1 cap PO BID [facility] Stop: 04/14/17 18:00 Last Admin: 03/24/17 17:40 Dose: 1 cap Levetiracetam (Keppra) 500 mg PO BID [facility] Last Admin: 03/24/17 17:42 Dose: 500 mg Losartan Potassium (Cozaar) 25 mg PO DAILY [facility] Last Admin: 03/24/17 09:54 Dose: 25 mg Morphine Sulfate (Morphine) 2 mg IVP Q4 PRN PRN Reason: Pain, severe (8-10) Last Admin: 03/23/17 21:59 Dose: 2 mg Ondansetron HCl (Zofran Inj) 4 mg IVP Q6 PRN PRN Reason: Nausea/Vomiting Promethazine HCl/Codeine (Phenergan/Codeine Oral Syrup) 5 ml PO Q4 PRN PRN Reason: Cough Rosuvastatin Calcium (Crestor) 5 mg PO HS [facility] Last Admin: 03/24/17 21:40 Dose: 5 mg Tamsulosin HCl (Flomax) 0.4 mg PO DAILY [facility] Last Admin: 03/24/17 09:54 Dose: 0.4 mg - Labs Labs: 03/23/17 07:36 03/23/17 07:36 PT 37.6 SECONDS (9.7-12.2) H* D 03/24/17 06:07 INR 3.2 03/24/17 06:07 APTT 28 SECONDS (21-34) D 03/09/17 11:30 - Additional Findings Additional findings: - Constitutional Appears: No Acute Distress - Head Exam Head Exam: NORMAL INSPECTION, NORMOCEPHALIC - Eye Exam Eye Exam: EOMI, Normal appearance, PERRL Pupil Exam: NORMAL ACCOMODATION - ENT Exam ENT Exam: Mucous Membranes Moist, Normal Exam - Respiratory Exam Respiratory Exam: Clear to Ausculation Bilateral, NORMAL BREATHING PATTERN. absent: Decreased Breath Sounds, Wheezes - Cardiovascular Exam Cardiovascular Exam: REGULAR RHYTHM, RRR, +S1, +S2 - GI/Abdominal Exam GI & Abdominal Exam: Soft, Normal Bowel Sounds. absent: Distended, Tenderness Additional comments: Bilateral Groin surgical site (from bilateral thrombectomies): mehran removed by Vascular Surgery and placed sutures. 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 He underwent bilateral thrombectomy on 02/05/17. The status of his bilateral lower legs worsened subsequently ( formation of bullae and sloughing of skin and these extremities cool to the touch and intense pain with minor palpation). Cultures from the bilateral lower legs revealed Serratia marcescens and Enterococcus faecalis. Blood Culture was positive for Bacillus species and Urine Cultures positive for Enterococcus faecalis. Because of the likelihood of sepsis, family decided on amputation. 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 Family has completed Medicaid Application and awaiting approval for TRENT placement. Plan: PAD S/P Bilateral AKA 03/04/17 * Vascular Surgery (Dr. Kaur) on the case help appreciated * Cardiology (Dr. Brown) on the case help appreciated * Daily Coumadin * Goal INR is 2.5 to 3.[address] Brown * [place] to Surgical Site to removed when Ok with Vascular Surgery Dr. Kaur -->mehran to be removed in a month from surgery (04/03/17) * Morphine 2 mg IV Q4H PRN Severe Pain * Gabapentin 300 mg PO 3x/day Cough * CXR 03/22/17: Interval appearance of heterogeneous opacity at the right lung base may represent pneumonia or atelectasis. Otherwise no interval change. * Increase opacity noted when comparted to 02/20/17 CXR * Promethazine PRN Hx Malignant HTN * B/P running on the low end, continue to monitor. Patient is asymptomatic * Held Metoprolol 100 mg PO Q12H in light of hypotension on 03/17; given fluid bolus on 03/17 * Cardizem 360 mg PO 1x/day * Cozaar 25 mg PO 1x/day Hx Sepsis--Resolved * Secondary to gangrenous bilateral legs, +blood culture code sepsis called on * Urine Culture (03/03/17): Enterococcus Faecalis-->sensitive to Vancomycin and PCN * Blood cultures (03/03/17): No growth at 5 days * Urine culture (03/02/17): Enterococcus Faecalis * Blood culture (03/02/17): Bacillus species * Blood Culture (03/02/17): no growth after 5 days * Leg Right and Left (03/02/17): Serratia Marcescens and Enterococcus Faecalis * Repeat Blood Culture (03/07): Negative at 5 days * Repeat Urine Culture (04/06): NO growth * Patient was treated with Ampicillin and Rocephin through 03/11/17. He was switched to Ciprofloxicin on 03/11/17 and this was discontinued by ID on 03/13/17. Hx Atrial Fibrillation * Amiodarone 200 mg PO 2x/day * held Metoprolol 100 mg PO Q12H secondary to hypotension * Cardizem 360 mg PO 1x/day * Pending INR for Coumadin tonight Hx Seizure Disorder * Because of Elevated LFTs his Dilantin was discontinued and Neurology Dr. Onesimo Hogan started him on Keppra 500 mg PO 2x/day Hx Multiple CVAs * Crestor is being held considering the elevated LFTs and that his Lipid Profile is currently WNL. * Repeat Lipid Panel in 1 month to see where we are with this. * ASA 81 mg PO 1x/day * Keep the blood pressure under control Hx Elevated LFTs-->resolved * Could have been secondary to the Dilantin and the Crestor. The Crestor is being held and the Dilantin was switched over to Keppra. * The LFTs have normalized as of 03/14/17 Hx Elevated WBC-->resolved * Normalized * Likely secondary to the Sepsis as mentioned above * NO fevers * Vitals are stable Hx Enlarged Prostate and Urinary Retention * Proscar 5 mg PO 1x/day * Flomax 0.4 mg PO 1x/day * Patient had urinary retention on 03/20-->patient had urinary straight cath Anemia Likely Secondary to Chronic Disease * HgB/Hct are stable Prophylaxis * Colace 100 mg PO 2x/day * Pepcid 20 mg PO 1x/day * Bacid 1 cap PO 2x/day with STOP on 04/14/17 * Zofran 4 mg IV Q6H PRN N/V * DVT Prophylaxis: he is on coumadin Disposition: Patient is pending [employer] approval. Daughter requests for [facility] for for TRENT/Acute Rehab. DW Francisca Parra DO, PGY-1 <Unruly Vines - Last Filed: 03/25/17 19:11> Objective - Vital Signs/Intake and Output Vital Signs (last 24 hours): Temp Pulse Resp BP Pulse Ox 98.3 F 70 20 110/63 100 03/25/17 16:47 03/25/17 16:47 03/25/17 16:47 03/25/17 16:47 03/25/17 16:47 Intake and Output: 03/25/17 03/26/17 18:59 06:59 Intake Total 780 Output Total 600 Balance 180 - Medications Medications: Current Medications Amiodarone HCl (Cordarone) 200 mg PO BID [facility] Last Admin: 03/25/17 17:37 Dose: 200 mg Aspirin (Aspirin Chewable) 81 mg PO DAILY [facility] Last Admin: 03/25/17 09:26 Dose: 81 mg Diltiazem HCl (Cardizem Cd) 360 mg PO DAILY [facility] Last Admin: 03/25/17 09:26 Dose: 360 mg Docusate Sodium (Colace) 100 mg PO BID [facility] Last Admin: 03/25/17 17:36 Dose: 100 mg Famotidine (Pepcid) 20 mg PO DAILY [facility] Last Admin: 03/25/17 09:27 Dose: 20 mg Finasteride (Proscar) 5 mg PO DAILY [facility] Last Admin: 03/25/17 09:27 Dose: 5 mg Gabapentin (Neurontin) 300 mg PO TID [facility] Last Admin: 03/25/17 17:36 Dose: 300 mg Lactobacillus Acidophilus (Bacid Acidophilus) 1 cap PO BID [facility] Stop: 04/14/17 18:00 Last Admin: 03/25/17 17:40 Dose: 1 cap Levetiracetam (Keppra) 500 mg PO BID [facility] Last Admin: 03/25/17 17:36 Dose: 500 mg Losartan Potassium (Cozaar) 25 mg PO DAILY [facility] Last Admin: 03/25/17 09:27 Dose: 25 mg Morphine Sulfate (Morphine) 2 mg IVP Q4 PRN PRN Reason: Pain, severe (8-10) Last Admin: 03/23/17 21:59 Dose: 2 mg Ondansetron HCl (Zofran Inj) 4 mg IVP Q6 PRN PRN Reason: Nausea/Vomiting Promethazine HCl/Codeine (Phenergan/Codeine Oral Syrup) 5 ml PO Q4 PRN PRN Reason: Cough Rosuvastatin Calcium (Crestor) [address] [facility] Last Admin: 03/24/17 21:40 Dose: 5 mg Tamsulosin HCl (Flomax) 0.4 mg PO DAILY [facility] Last Admin: 03/25/17 09:27 Dose: 0.4 mg - Labs Labs: 03/25/17 07:07 03/25/17 07:07 PT 27.5 SECONDS (9.7-12.2) H D 03/25/17 07:07 INR 2.4 D 03/25/17 07:07 APTT 28 SECONDS (21-34) D 03/09/17 11:30 Attending/Attestation - Attestation I have personally seen and examined this patient.: Yes I have fully participated in the care of the patient.: Yes I have reviewed all pertinent clinical information, including history, physical exam and plan: Yes Notes (Text): 03/25/17 19:11 Patient was seen and examined shortly after resident. Exam, Assesment and Plan were thoroughly gone over with the resident. Unruly Vines D.O.
[2017-03-25 07:21] LABS: BASO % 0.5 % (0.0-2.0); EOS # 0.1 K/uL (0.0-0.7); EOS % 1.5 % (0.0-4.0); HEMATOCRIT 32.3 % (35.0-51.0); LYMPH % 35.1 % (20.0-40.0); MEAN CELL VOLUME 80.9 fL (80.0-94.0); MEAN CORPUSCULAR HEMOGLOBIN 27.1 pg (27.0-31.0); MEAN CORPUSCULAR HGB CONC 33.5 g/dL (33.0-37.0); MEAN PLATELET VOLUME 7.5 fL (7.2-11.7); MONO # 0.3 K/uL (0.0-0.8); MONO % 5.6 % (0.0-10.0); NRBC % 0.1 % (0.0-2.0); RED CELL DISTRIBUTION WIDTH 17.5 % (11.5-14.5); WHITE BLOOD COUNT 5.8 K/uL (4.8-10.8)
[2017-03-25 07:30] LABS: INR 2.4
[2017-03-25 07:32] LABS: CHLORIDE 102 mmol/L (98-107); POTASSIUM 3.7 mmol/L (3.6-5.2); SODIUM 134 mmol/L (132-148)
[2017-03-25 07:34] LABS: BILIRUBIN,TOTAL 0.4 mg/dL (0.2-1.3); GFR AFRICAN-AMERICAN > 60
[2017-03-25 07:35] LABS: ALB/GLOB RATIO 0.9 (1.0-2.1); ALKALINE PHOSPHATASE 127 U/L (38-126); ALT/SGPT 29 U/L (21-72); AST/SGOT 18 U/L (17-59); BLOOD UREA NITROGEN 17 mg/dL (9-20); CARBON DIOXIDE 25 mmol/L (22-30); GLUCOSE,RANDOM 80 mg/dL (75-110); PHOSPHOROUS 3.5 mg/dL (2.5-4.5); TOTAL PROTEIN 5.5 g/dL (6.3-8.3)
[2017-03-25 07:36] LABS: CALCIUM 7.7 mg/dl (8.6-10.4); MAGNESIUM 1.7 mg/dL (1.6-2.3)
[2017-03-25] MEDS: diltiaZEM 180 mg/24 Hours CD Cap PO SCH (09:26)
[2017-03-25] MEDS: Lactobacillus Acidophilus 500 MU Cap PO SCH ×2 (09:26→17:40)
[2017-03-25] MEDS ORDERED: Bisacodyl 5mg EC Tab PO ONE ×2 (10:00→16:01)
--- NOTE | 2017-03-26 07:26 | CP.PCM.PN ---
<Gunnar Espinosaa - Last Filed: 03/26/17 07:25> Subjective - Date & Time of Evaluation Date of Evaluation: 03/26/17 Time of Evaluation: 07:00 - Subjective Subjective: Medicine Note for Dr. Yara Vines Patient was seen and examined at bedside. No acute complaints. Denied any pain at the incision site. Denied fever, chills, headache, SOB, chest pain, abdominal pain, n/v/d/c, or urinary symptoms. Objective - Vital Signs/Intake and Output Vital Signs (last 24 hours): Temp Pulse Resp BP Pulse Ox 98.1 F 79 20 116/72 98 03/25/17 23:26 03/25/17 23:26 03/25/17 23:26 03/25/17 23:26 03/25/17 23:26 Intake and Output: 03/26/17 03/26/17 06:59 18:59 Intake Total 200 Output Total 450 Balance -250 - Medications Medications: Current Medications Amiodarone HCl (Cordarone) 200 mg PO BID [facility] Last Admin: 03/25/17 17:37 Dose: 200 mg Aspirin (Aspirin Chewable) 81 mg PO DAILY [facility] Last Admin: 03/25/17 09:26 Dose: 81 mg Diltiazem HCl (Cardizem Cd) 360 mg PO DAILY [facility] Last Admin: 03/25/17 09:26 Dose: 360 mg Docusate Sodium (Colace) 100 mg PO BID [facility] Last Admin: 03/25/17 17:36 Dose: 100 mg Famotidine (Pepcid) 20 mg PO DAILY [facility] Last Admin: 03/25/17 09:27 Dose: 20 mg Finasteride (Proscar) 5 mg PO DAILY [facility] Last Admin: 03/25/17 09:27 Dose: 5 mg Gabapentin (Neurontin) 300 mg PO TID [facility] Last Admin: 03/25/17 17:36 Dose: 300 mg Lactobacillus Acidophilus (Bacid Acidophilus) 1 cap PO BID [facility] Stop: 04/14/17 18:00 Last Admin: 03/25/17 17:40 Dose: 1 cap Levetiracetam (Keppra) 500 mg PO BID [facility] Last Admin: 03/25/17 17:36 Dose: 500 mg Losartan Potassium (Cozaar) 25 mg PO DAILY [facility] Last Admin: 03/25/17 09:27 Dose: 25 mg Morphine Sulfate (Morphine) 2 mg IVP Q4 PRN PRN Reason: Pain, severe (8-10) Last Admin: 03/23/17 21:59 Dose: 2 mg Ondansetron HCl (Zofran Inj) 4 mg IVP Q6 PRN PRN Reason: Nausea/Vomiting Promethazine HCl/Codeine (Phenergan/Codeine Oral Syrup) 5 ml PO Q4 PRN PRN Reason: Cough Rosuvastatin Calcium (Crestor) 5 mg PO HS [facility] Last Admin: 03/25/17 21:42 Dose: 5 mg Tamsulosin HCl (Flomax) 0.4 mg PO DAILY [facility] Last Admin: 03/25/17 09:27 Dose: 0.4 mg - Labs Labs: 03/25/17 07:07 03/25/17 07:07 PT 27.5 SECONDS (9.7-12.2) H D 03/25/17 07:07 INR 2.4 D 03/25/17 07:07 APTT 28 SECONDS (21-34) D 03/09/17 11:30 - Additional Findings Additional findings: - Constitutional Appears: No Acute Distress - Head Exam Head Exam: NORMAL INSPECTION, NORMOCEPHALIC - Eye Exam Eye Exam: EOMI, Normal appearance, PERRL Pupil Exam: NORMAL ACCOMODATION - ENT Exam ENT Exam: Mucous Membranes Moist, Normal Exam - Respiratory Exam Respiratory Exam: Clear to Ausculation Bilateral, NORMAL BREATHING PATTERN. absent: Decreased Breath Sounds, Wheezes - Cardiovascular Exam Cardiovascular Exam: REGULAR RHYTHM, RRR, +S1, +S2 - GI/Abdominal Exam GI & Abdominal Exam: Soft, Normal Bowel Sounds. absent: Distended, Tenderness Additional comments: Bilateral Groin surgical site (from bilateral thrombectomies): mehran removed by Vascular Surgery and placed sutures. 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 He underwent bilateral thrombectomy on 02/05/17. The status of his bilateral lower legs worsened subsequently ( formation of bullae and sloughing of skin and these extremities cool to the touch and intense pain with minor palpation). Cultures from the bilateral lower legs revealed Serratia marcescens and Enterococcus faecalis. Blood Culture was positive for Bacillus species and Urine Cultures positive for Enterococcus faecalis. Because of the likelihood of sepsis, family decided on amputation. 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 Family has completed Medicaid Application and awaiting approval for TRENT placement. Plan: PAD S/P Bilateral AKA 03/04/17 * Vascular Surgery (Dr. Kaur) on the case help appreciated * Cardiology (Dr. Brown) on the case help appreciated * Daily Coumadin * Goal INR is 2.5 to 3.[address] Brown * Clarence to Surgical Site to removed when Ok with Vascular Surgery Dr. Kaur -->mehran to be removed in a month from surgery (04/03/17) * Morphine 2 mg IV Q4H PRN Severe Pain * Gabapentin 300 mg PO 3x/day Cough * CXR 03/22/17: Interval appearance of heterogeneous opacity at the right lung base may represent pneumonia or atelectasis. Otherwise no interval change. * Increase opacity noted when comparted to 02/20/17 CXR * Promethazine PRN Hx Malignant HTN * B/P running on the low end, continue to monitor. Patient is asymptomatic * Held Metoprolol 100 mg PO Q12H in light of hypotension on 03/17; given fluid bolus on 03/17 * Cardizem 360 mg PO 1x/day * Cozaar 25 mg PO 1x/day Hx Sepsis--Resolved * Secondary to gangrenous bilateral legs, +blood culture code sepsis called on * Urine Culture (03/03/17): Enterococcus Faecalis-->sensitive to Vancomycin and PCN * Blood cultures (03/03/17): No growth at 5 days * Urine culture (03/02/17): Enterococcus Faecalis * Blood culture (03/02/17): Bacillus species * Blood Culture (03/02/17): no growth after 5 days * Leg Right and Left (03/02/17): Serratia Marcescens and Enterococcus Faecalis * Repeat Blood Culture (03/07): Negative at 5 days * Repeat Urine Culture (04/06): NO growth * Patient was treated with Ampicillin and Rocephin through 03/11/17. He was switched to Ciprofloxicin on 03/11/17 and this was discontinued by ID on 03/13/17. Hx Atrial Fibrillation * Amiodarone 200 mg PO 2x/day * held Metoprolol 100 mg PO Q12H secondary to hypotension * Cardizem 360 mg PO 1x/day * Pending INR for Coumadin tonight Hx Seizure Disorder * Because of Elevated LFTs his Dilantin was discontinued and Neurology Dr. Onesimo Hogan started him on Keppra 500 mg PO 2x/day Hx Multiple CVAs * Crestor is being held considering the elevated LFTs and that his Lipid Profile is currently WNL. * Repeat Lipid Panel in 1 month to see where we are with this. * ASA 81 mg PO 1x/day * Keep the blood pressure under control Hx Elevated LFTs-->resolved * Could have been secondary to the Dilantin and the Crestor. The Crestor is being held and the Dilantin was switched over to Keppra. * The LFTs have normalized as of 03/14/17 Hx Elevated WBC-->resolved * Normalized * Likely secondary to the Sepsis as mentioned above * NO fevers * Vitals are stable Hx Enlarged Prostate and Urinary Retention * Proscar 5 mg PO 1x/day * Flomax 0.4 mg PO 1x/day * Patient had urinary retention on 03/20-->patient had urinary straight cath Anemia Likely Secondary to Chronic Disease * HgB/Hct are stable Prophylaxis * Colace 100 mg PO 2x/day * Pepcid 20 mg PO 1x/day * Bacid 1 cap PO 2x/day with STOP on 04/14/17 * Zofran 4 mg IV Q6H PRN N/V * DVT Prophylaxis: he is on coumadin Disposition: Patient is pending [employer] approval. Daughter requests for [facility] for for TRENT/Acute Rehab. DW Francisca Parra DO, PGY-1 <Unruly Vines - Last Filed: 03/26/17 18:49> Objective - Vital Signs/Intake and Output Vital Signs (last 24 hours): Temp Pulse Resp BP Pulse Ox 97.4 F L 68 20 120/62 99 03/26/17 16:11 03/26/17 16:11 03/26/17 16:11 03/26/17 16:11 03/26/17 16:11 Intake and Output: 03/26/17 03/26/17 06:59 18:59 Intake Total 980 Output Total 450 Balance 530 - Medications Medications: Current Medications Amiodarone HCl (Cordarone) 200 mg PO BID [facility] Last Admin: 03/26/17 17:00 Dose: 200 mg Aspirin (Aspirin Chewable) 81 mg PO DAILY [facility] Last Admin: 03/26/17 09:19 Dose: 81 mg Diltiazem HCl (Cardizem Cd) 360 mg PO DAILY [facility] Last Admin: 03/26/17 09:19 Dose: 360 mg Docusate Sodium (Colace) 100 mg PO BID [facility] Last Admin: 03/26/17 17:00 Dose: 100 mg Famotidine (Pepcid) 20 mg PO DAILY [facility] Last Admin: 03/26/17 09:20 Dose: 20 mg Finasteride (Proscar) 5 mg PO DAILY [facility] Last Admin: 03/26/17 09:20 Dose: 5 mg Gabapentin (Neurontin) 300 mg PO TID [facility] Last Admin: 03/26/17 17:00 Dose: 300 mg Lactobacillus Acidophilus (Bacid Acidophilus) 1 cap PO BID [facility] Stop: 04/14/17 18:00 Last Admin: 03/26/17 17:00 Dose: 1 cap Levetiracetam (Keppra) 500 mg PO BID [facility] Last Admin: 03/26/17 17:00 Dose: 500 mg Losartan Potassium (Cozaar) 25 mg PO DAILY [facility] Last Admin: 03/26/17 09:20 Dose: 25 mg Morphine Sulfate (Morphine) 2 mg IVP Q4 PRN PRN Reason: Pain, severe (8-10) Last Admin: 03/23/17 21:59 Dose: 2 mg Ondansetron HCl (Zofran Inj) 4 mg IVP Q6 PRN PRN Reason: Nausea/Vomiting Promethazine HCl/Codeine (Phenergan/Codeine Oral Syrup) 5 ml PO Q4 PRN PRN Reason: Cough Rosuvastatin Calcium (Crestor) 5 mg PO [facility] Last Admin: 03/25/17 21:42 Dose: 5 mg Tamsulosin HCl (Flomax) 0.4 mg PO DAILY [facility] Last Admin: 03/26/17 09:20 Dose: 0.4 mg - Labs Labs: 03/25/17 07:07 03/25/17 07:07 PT 23.2 SECONDS (9.7-12.2) H 03/26/17 07:43 INR 2.0 03/26/17 07:43 APTT 28 SECONDS (21-34) D 03/09/17 11:30 Attending/Attestation - Attestation I have personally seen and examined this patient.: Yes I have fully participated in the care of the patient.: Yes I have reviewed all pertinent clinical information, including history, physical exam and plan: Yes Notes (Text): 03/26/17 18:48 Patient was seen and examined shortly after resident. Exam, Assesment and Plan were thoroughly gone over with the resident. Coumadin 3 mg x 1 dose tonight Nursding and Dietary order placed to make sure Low Vitamin K diet. Unruly Vines D.O.
[2017-03-26] MEDS: diltiaZEM 180 mg/24 Hours CD Cap PO SCH (09:19)
[2017-03-26] MEDS: Lactobacillus Acidophilus 500 MU Cap PO SCH ×2 (09:19→17:00)
[2017-03-27 07:52] LABS: INR 1.7
[2017-03-27] MEDS: Lactobacillus Acidophilus 500 MU Cap PO SCH ×2 (09:36→17:16)
[2017-03-27] MEDS: diltiaZEM 180 mg/24 Hours CD Cap PO SCH (09:37)
[2017-03-27 11:33] LABS: BASO % 0.3 % (0.0-2.0); EOS # 0.1 K/uL (0.0-0.7); EOS % 1.7 % (0.0-4.0); HEMATOCRIT 35.3 % (35.0-51.0); LYMPH # 1.4 K/uL (1.0-4.3); LYMPH % 27.7 % (20.0-40.0); MEAN CELL VOLUME 81.1 fL (80.0-94.0); MEAN CORPUSCULAR HEMOGLOBIN 26.7 pg (27.0-31.0); MEAN CORPUSCULAR HGB CONC 32.9 g/dL (33.0-37.0); MEAN PLATELET VOLUME 7.1 fL (7.2-11.7); MONO # 0.3 K/uL (0.0-0.8); MONO % 5.8 % (0.0-10.0); RED CELL DISTRIBUTION WIDTH 16.9 % (11.5-14.5)
[2017-03-27 11:46] LABS: CHLORIDE 100 mmol/L (98-107)
[2017-03-27 11:47] LABS: POTASSIUM 3.9 mmol/L (3.6-5.2); SODIUM 134 mmol/L (132-148)
[2017-03-27 11:49] LABS: ALB/GLOB RATIO 0.8 (1.0-2.1); ALKALINE PHOSPHATASE 137 U/L (38-126); AST/SGOT 21 U/L (17-59); BILIRUBIN,TOTAL 0.5 mg/dL (0.2-1.3); BLOOD UREA NITROGEN 14 mg/dL (9-20); CARBON DIOXIDE 28 mmol/L (22-30); GFR AFRICAN-AMERICAN > 60; GLUCOSE,RANDOM 120 mg/dL (75-110); TOTAL PROTEIN 6.4 g/dL (6.3-8.3)
[2017-03-27 11:50] LABS: ALT/SGPT 32 U/L (21-72); CALCIUM 8.5 mg/dl (8.6-10.4); MAGNESIUM 1.7 mg/dL (1.6-2.3); PHOSPHOROUS 3.3 mg/dL (2.5-4.5)
--- NOTE | 2017-03-27 14:18 | CP.PCM.PN ---
<Gunnar Espinosaa - Last Filed: 03/27/17 14:16> Subjective - Date & Time of Evaluation Date of Evaluation: 03/27/17 Time of Evaluation: 09:00 - Subjective Subjective: Medicine Note for Dr. Yara Vines Patient was seen and examined at bedside. No acute complaints. Denied any pain at the incision site. Denied fever, chills, headache, SOB, chest pain, abdominal pain, n/v/d/c, or urinary symptoms. Objective - Vital Signs/Intake and Output Vital Signs (last 24 hours): Temp Pulse Resp BP Pulse Ox 98.7 F 69 20 140/78 100 03/27/17 07:28 03/27/17 07:28 03/27/17 07:28 03/27/17 07:28 03/27/17 07:28 Intake and Output: 03/27/17 03/27/17 06:59 18:59 Intake Total 790 Balance 790 - Medications Medications: Current Medications Amiodarone HCl (Cordarone) 200 mg PO BID [facility] Last Admin: 03/27/17 09:36 Dose: 200 mg Aspirin (Aspirin Chewable) 81 mg PO DAILY [facility] Last Admin: 03/27/17 09:37 Dose: 81 mg Diltiazem HCl (Cardizem Cd) 360 mg PO DAILY [facility] Last Admin: 03/27/17 09:37 Dose: 360 mg Docusate Sodium (Colace) 100 mg PO BID [facility] Last Admin: 03/27/17 09:36 Dose: 100 mg Famotidine (Pepcid) 20 mg PO DAILY [facility] Last Admin: 03/27/17 09:37 Dose: 20 mg Finasteride (Proscar) 5 mg PO DAILY [facility] Last Admin: 03/27/17 09:37 Dose: 5 mg Gabapentin (Neurontin) 300 mg PO TID [facility] Last Admin: 03/27/17 13:29 Dose: 300 mg Lactobacillus Acidophilus (Bacid Acidophilus) 1 cap PO BID [facility] Stop: 04/14/17 18:00 Last Admin: 03/27/17 09:36 Dose: 1 cap Levetiracetam (Keppra) 500 mg PO BID [facility] Last Admin: 03/27/17 09:37 Dose: 500 mg Losartan Potassium (Cozaar) 25 mg PO DAILY [facility] Last Admin: 03/27/17 09:37 Dose: 25 mg Morphine Sulfate (Morphine) 2 mg IVP Q4 PRN PRN Reason: Pain, severe (8-10) Last Admin: 03/23/17 21:59 Dose: 2 mg Ondansetron HCl (Zofran Inj) 4 mg IVP Q6 PRN PRN Reason: Nausea/Vomiting Promethazine HCl/Codeine (Phenergan/Codeine Oral Syrup) 5 ml PO Q4 PRN PRN Reason: Cough Rosuvastatin Calcium (Crestor) 5 mg PO HS [facility] Last Admin: 03/26/17 21:41 Dose: 5 mg Tamsulosin HCl (Flomax) 0.4 mg PO DAILY [facility] Last Admin: 03/27/17 09:37 Dose: 0.4 mg Warfarin Sodium (Coumadin) 5 mg PO 1800 [facility] Stop: 03/27/17 18:01 - Labs Labs: 03/27/17 11:19 03/27/17 11:19 PT 18.9 SECONDS (9.7-12.2) H 03/27/17 07:41 INR 1.7 03/27/17 07:41 APTT 28 SECONDS (21-34) D 03/09/17 11:30 - Additional Findings Additional findings: - Constitutional Appears: No Acute Distress - Head Exam Head Exam: NORMAL INSPECTION, NORMOCEPHALIC - Eye Exam Eye Exam: EOMI, Normal appearance, PERRL Pupil Exam: NORMAL ACCOMODATION - ENT Exam ENT Exam: Mucous Membranes Moist, Normal Exam - Respiratory Exam Respiratory Exam: Clear to Ausculation Bilateral, NORMAL BREATHING PATTERN. absent: Decreased Breath Sounds, Wheezes - Cardiovascular Exam Cardiovascular Exam: REGULAR RHYTHM, RRR, +S1, +S2 - GI/Abdominal Exam GI & Abdominal Exam: Soft, Normal Bowel Sounds. absent: Distended, Tenderness Additional comments: Bilateral Groin surgical site (from bilateral thrombectomies): neo removed by Vascular Surgery and placed sutures. 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 He underwent bilateral thrombectomy on 02/05/17. The status of his bilateral lower legs worsened subsequently ( formation of bullae and sloughing of skin and these extremities cool to the touch and intense pain with minor palpation). Cultures from the bilateral lower legs revealed Serratia marcescens and Enterococcus faecalis. Blood Culture was positive for Bacillus species and Urine Cultures positive for Enterococcus faecalis. Because of the likelihood of sepsis, family decided on amputation. 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 Family has completed Medicaid Application and awaiting approval for TRENT placement. Plan: PAD S/P Bilateral AKA 03/04/17 * Vascular Surgery (Dr. Kaur) on the case help appreciated * Cardiology (Dr. Brown) on the case help appreciated * Daily Coumadin * Goal INR is 2.5 to 3.[address] Brown * Advised dietary and nurse patient will need to be on a vitamin K free- dark leafy greens free diet * Neo to Surgical Site to removed when Ok with Vascular Surgery Dr. Kaur -->neo to be removed in a month from surgery (04/03/17) * Morphine 2 mg IV Q4H PRN Severe Pain * Gabapentin 300 mg PO 3x/day Cough * CXR 03/22/17: Interval appearance of heterogeneous opacity at the right lung base may represent pneumonia or atelectasis. Otherwise no interval change. * Increase opacity noted when comparted to 02/20/17 CXR * Promethazine PRN Hx Malignant HTN * B/P running on the low end, continue to monitor. Patient is asymptomatic * Held Metoprolol 100 mg PO Q12H in light of hypotension on 03/17; given fluid bolus on 03/17 * Cardizem 360 mg PO 1x/day * Cozaar 25 mg PO 1x/day Hx Sepsis--Resolved * Secondary to gangrenous bilateral legs, +blood culture code sepsis called on * Urine Culture (03/03/17): Enterococcus Faecalis-->sensitive to Vancomycin and PCN * Blood cultures (03/03/17): No growth at 5 days * Urine culture (03/02/17): Enterococcus Faecalis * Blood culture (03/02/17): Bacillus species * Blood Culture (03/02/17): no growth after 5 days * Leg Right and Left (03/02/17): Serratia Marcescens and Enterococcus Faecalis * Repeat Blood Culture (03/07): Negative at 5 days * Repeat Urine Culture (04/06): NO growth * Patient was treated with Ampicillin and Rocephin through 03/11/17. He was switched to Ciprofloxicin on 03/11/17 and this was discontinued by ID on 03/13/17. Hx Atrial Fibrillation * Amiodarone 200 mg PO 2x/day * held Metoprolol 100 mg PO Q12H secondary to hypotension * Cardizem 360 mg PO 1x/day * Pending INR for Coumadin tonight Hx Seizure Disorder * Because of Elevated LFTs his Dilantin was discontinued and Neurology Dr. Onesimo Hogan started him on Keppra 500 mg PO 2x/day Hx Multiple CVAs * Crestor is being held considering the elevated LFTs and that his Lipid Profile is currently WNL. * Repeat Lipid Panel in 1 month to see where we are with this. * ASA 81 mg PO 1x/day * Keep the blood pressure under control Hx Elevated LFTs-->resolved * Could have been secondary to the Dilantin and the Crestor. The Crestor is being held and the Dilantin was switched over to Keppra. * The LFTs have normalized as of 03/14/17 Hx Elevated WBC-->resolved * Normalized * Likely secondary to the Sepsis as mentioned above * NO fevers * Vitals are stable Hx Enlarged Prostate and Urinary Retention * Proscar 5 mg PO 1x/day * Flomax 0.4 mg PO 1x/day * Patient had urinary retention on 03/20-->patient had urinary straight cath Anemia Likely Secondary to Chronic Disease * HgB/Hct are stable Prophylaxis * Colace 100 mg PO 2x/day * Pepcid 20 mg PO 1x/day * Bacid 1 cap PO 2x/day with STOP on 04/14/17 * Zofran 4 mg IV Q6H PRN N/V * DVT Prophylaxis: he is on coumadin Disposition: Patient is pending [employer] approval. Daughter requests for [facility] for for TRENT/Acute Rehab. DW Dr. Yara Vines, Francisca GORDON, PGY-1 <Unruly Vines - Last Filed: 03/27/17 19:07> Objective - Vital Signs/Intake and Output Vital Signs (last 24 hours): Temp Pulse Resp BP Pulse Ox 97.2 F L 65 20 102/61 100 03/27/17 17:06 03/27/17 17:06 03/27/17 17:06 03/27/17 17:06 03/27/17 17:06 Intake and Output: 03/27/17 03/28/17 18:59 06:59 Intake Total 450 Balance 450 - Medications Medications: Current Medications Amiodarone HCl (Cordarone) 200 mg PO BID [facility] Last Admin: 03/27/17 17:18 Dose: 200 mg Aspirin (Aspirin Chewable) 81 mg PO DAILY [facility] Last Admin: 03/27/17 09:37 Dose: 81 mg Diltiazem HCl (Cardizem Cd) 360 mg PO DAILY [facility] Last Admin: 03/27/17 09:37 Dose: 360 mg Docusate Sodium (Colace) 100 mg PO BID [facility] Last Admin: 03/27/17 17:17 Dose: 100 mg Famotidine (Pepcid) 20 mg PO DAILY [facility] Last Admin: 03/27/17 09:37 Dose: 20 mg Finasteride (Proscar) 5 mg PO DAILY [facility] Last Admin: 03/27/17 09:37 Dose: 5 mg Gabapentin (Neurontin) 300 mg PO TID [facility] Last Admin: 03/27/17 17:17 Dose: 300 mg Lactobacillus Acidophilus (Bacid Acidophilus) 1 cap PO BID [facility] Stop: 04/14/17 18:00 Last Admin: 03/27/17 17:16 Dose: 1 cap Levetiracetam (Keppra) 500 mg PO BID [facility] Last Admin: 03/27/17 17:17 Dose: 500 mg Losartan Potassium (Cozaar) 25 mg PO DAILY [facility] Last Admin: 03/27/17 09:37 Dose: 25 mg Morphine Sulfate (Morphine) 2 mg IVP Q4 PRN PRN Reason: Pain, severe (8-10) Last Admin: 03/23/17 21:59 Dose: 2 mg Ondansetron HCl (Zofran Inj) 4 mg IVP Q6 PRN PRN Reason: Nausea/Vomiting Promethazine HCl/Codeine (Phenergan/Codeine Oral Syrup) 5 ml PO Q4 PRN PRN Reason: Cough Rosuvastatin Calcium (Crestor) 5 mg PO HS [facility] Last Admin: 03/26/17 21:41 Dose: 5 mg Tamsulosin HCl (Flomax) 0.4 mg PO DAILY [facility] Last Admin: 03/27/17 09:37 Dose: 0.4 mg - Labs Labs: 03/27/17 11:19 03/27/17 11:19 PT 18.9 SECONDS (9.7-12.2) H 03/27/17 07:41 INR 1.7 03/27/17 07:41 APTT 28 SECONDS (21-34) D 03/09/17 11:30 Attending/Attestation - Attestation I have personally seen and examined this patient.: Yes I have fully participated in the care of the patient.: Yes I have reviewed all pertinent clinical information, including history, physical exam and plan: Yes Notes (Text): 03/27/17 19:06 Patient was seen and examined shortly after resident. Exam, assessment and plan were thoroughly gone over with the resident. Coumadin 5 mg PO x 1 dose ann Vines D.O.
--- NOTE | 2017-03-28 07:33 | CP.PCM.PN ---
<Radha Garcia - Last Filed: 03/28/17 07:31> Subjective - Date & Time of Evaluation Date of Evaluation: 03/28/17 Time of Evaluation: 07:32 - Subjective Subjective: Progress Note for Dr. Vines Patient seen and examined at bedside. No acute events overnight. Patient denies Nausea, vomiting, diarrhea, constipation, chest pain, shortness of breath. Objective - Vital Signs/Intake and Output Vital Signs (last 24 hours): Temp Pulse Resp BP Pulse Ox 97.8 F 65 21 125/67 99 03/28/17 07:25 03/28/17 07:25 03/28/17 07:25 03/28/17 07:25 03/28/17 07:25 Intake and Output: 03/28/17 03/28/17 06:59 18:59 Intake Total 450 Balance 450 - Medications Medications: Current Medications Amiodarone HCl (Cordarone) 200 mg PO BID [facility] Last Admin: 03/27/17 17:18 Dose: 200 mg Aspirin (Aspirin Chewable) 81 mg PO DAILY [facility] Last Admin: 03/27/17 09:37 Dose: 81 mg Diltiazem HCl (Cardizem Cd) 360 mg PO DAILY [facility] Last Admin: 03/27/17 09:37 Dose: 360 mg Docusate Sodium (Colace) 100 mg PO BID [facility] Last Admin: 03/27/17 17:17 Dose: 100 mg Famotidine (Pepcid) 20 mg PO DAILY [facility] Last Admin: 03/27/17 09:37 Dose: 20 mg Finasteride (Proscar) 5 mg PO DAILY [facility] Last Admin: 03/27/17 09:37 Dose: 5 mg Gabapentin (Neurontin) 300 mg PO TID [facility] Last Admin: 03/27/17 17:17 Dose: 300 mg Lactobacillus Acidophilus (Bacid Acidophilus) 1 cap PO BID [facility] Stop: 04/14/17 18:00 Last Admin: 03/27/17 17:16 Dose: 1 cap Levetiracetam (Keppra) 500 mg PO BID [facility] Last Admin: 03/27/17 17:17 Dose: 500 mg Losartan Potassium (Cozaar) 25 mg PO DAILY [facility] Last Admin: 03/27/17 09:37 Dose: 25 mg Morphine Sulfate (Morphine) 2 mg IVP Q4 PRN PRN Reason: Pain, severe (8-10) Last Admin: 03/23/17 21:59 Dose: 2 mg Ondansetron HCl (Zofran Inj) 4 mg IVP Q6 PRN PRN Reason: Nausea/Vomiting Promethazine HCl/Codeine (Phenergan/Codeine Oral Syrup) 5 ml PO Q4 PRN PRN Reason: Cough Rosuvastatin Calcium (Crestor) 5 mg PO HS [facility] Last Admin: 03/27/17 22:16 Dose: 5 mg Tamsulosin HCl (Flomax) 0.4 mg PO DAILY [facility] Last Admin: 03/27/17 09:37 Dose: 0.4 mg - Labs Labs: 03/27/17 11:19 03/27/17 11:19 PT 18.9 SECONDS (9.7-12.2) H 03/27/17 07:41 INR 1.7 03/27/17 07:41 APTT 28 SECONDS (21-34) D 03/09/17 11:30 - Constitutional Appears: Non-toxic - Head Exam Head Exam: NORMAL INSPECTION - Eye Exam Eye Exam: EOMI, Normal appearance - ENT Exam ENT Exam: Mucous Membranes Moist - Neck Exam Neck Exam: Full ROM - Respiratory Exam Respiratory Exam: NORMAL BREATHING PATTERN. absent: Accessory Muscle Use, Respiratory Distress - Cardiovascular Exam Cardiovascular Exam: REGULAR RHYTHM, +S1, +S2 - GI/Abdominal Exam GI & Abdominal Exam: Soft. 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 He underwent bilateral thrombectomy on 02/05/17. The status of his bilateral lower legs worsened subsequently ( formation of bullae and sloughing of skin and these extremities cool to the touch and intense pain with minor palpation). Cultures from the bilateral lower legs revealed Serratia marcescens and Enterococcus faecalis. Blood Culture was positive for Bacillus species and Urine Cultures positive for Enterococcus faecalis. Because of the likelihood of sepsis, family decided on amputation. 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 Family has completed Medicaid Application and awaiting approval for TRENT placement. Plan: PAD S/P Bilateral AKA 03/04/17 * Vascular Surgery (Dr. Kaur) on the case help appreciated * Cardiology (Dr. Brown) on the case help appreciated * Daily Coumadin * Goal INR is 2.5 to 3.[address] Brown * Advised dietary and nurse patient will need to be on a vitamin K free- dark leafy greens free diet * Neo to Surgical Site to removed when Ok with Vascular Surgery Dr. Kaur -->neo to be removed in a month from surgery (04/03/17) * Morphine 2 mg IV Q4H PRN Severe Pain * Gabapentin 300 mg PO 3x/day Cough * CXR 03/22/17: Interval appearance of heterogeneous opacity at the right lung base may represent pneumonia or atelectasis. Otherwise no interval change. * Increase opacity noted when comparted to 02/20/17 CXR * Promethazine PRN Hx Malignant HTN * B/P running on the low end, continue to monitor. Patient is asymptomatic * Held Metoprolol 100 mg PO Q12H in light of hypotension on 03/17; given fluid bolus on 03/17 * Cardizem 360 mg PO 1x/day * Cozaar 25 mg PO 1x/day Hx Sepsis--Resolved * Secondary to gangrenous bilateral legs, +blood culture code sepsis called on * Urine Culture (03/03/17): Enterococcus Faecalis-->sensitive to Vancomycin and PCN * Blood cultures (03/03/17): No growth at 5 days * Urine culture (03/02/17): Enterococcus Faecalis * Blood culture (03/02/17): Bacillus species * Blood Culture (03/02/17): no growth after 5 days * Leg Right and Left (03/02/17): Serratia Marcescens and Enterococcus Faecalis * Repeat Blood Culture (03/07): Negative at 5 days * Repeat Urine Culture (04/06): NO growth * Patient was treated with Ampicillin and Rocephin through 03/11/17. He was switched to Ciprofloxicin on 03/11/17 and this was discontinued by ID on 03/13/17. Hx Atrial Fibrillation * Amiodarone 200 mg PO 2x/day * held Metoprolol 100 mg PO Q12H secondary to hypotension * Cardizem 360 mg PO 1x/day * Pending INR for Coumadin tonight Hx Seizure Disorder * Because of Elevated LFTs his Dilantin was discontinued and Neurology Dr. Onesimo Hogan started him on Keppra 500 mg PO 2x/day Hx Multiple CVAs * Crestor is being held considering the elevated LFTs and that his Lipid Profile is currently WNL. * Repeat Lipid Panel in 1 month to see where we are with this. * ASA 81 mg PO 1x/day * Keep the blood pressure under control Hx Elevated LFTs-->resolved * Could have been secondary to the Dilantin and the Crestor. The Crestor is being held and the Dilantin was switched over to Keppra. * The LFTs have normalized as of 03/14/17 Hx Elevated WBC-->resolved * Normalized * Likely secondary to the Sepsis as mentioned above * NO fevers * Vitals are stable Hx Enlarged Prostate and Urinary Retention * Proscar 5 mg PO 1x/day * Flomax 0.4 mg PO 1x/day * Patient had urinary retention on 03/20-->patient had urinary straight cath Anemia Likely Secondary to Chronic Disease * HgB/Hct are stable Prophylaxis * Colace 100 mg PO 2x/day * Pepcid 20 mg PO 1x/day * Bacid 1 cap PO 2x/day with STOP on 04/14/17 * Zofran 4 mg IV Q6H PRN N/V * DVT Prophylaxis: he is on coumadin Disposition: Patient is pending [employer] approval. Daughter requests for [facility] for for TRENT/Acute Rehab. Discussed with Dr. Yara Vines, Radha Garcia DO PGY1 <Unruly Vines - Last Filed: 03/28/17 18:19> Objective - Vital Signs/Intake and Output Vital Signs (last 24 hours): Temp Pulse Resp BP Pulse Ox 98.5 F 59 L 20 151/65 H 99 03/28/17 15:00 03/28/17 15:00 03/28/17 15:00 03/28/17 15:00 03/28/17 15:00 Intake and Output: 03/28/17 03/28/17 06:59 18:59 Intake Total 450 800 Output Total 500 Balance 450 300 - Medications Medications: Current Medications Amiodarone HCl (Cordarone) 200 mg PO BID [facility] Last Admin: 03/28/17 09:28 Dose: 200 mg Aspirin (Aspirin Chewable) 81 mg PO DAILY [facility] Last Admin: 03/28/17 09:28 Dose: 81 mg Diltiazem HCl (Cardizem Cd) 360 mg PO DAILY [facility] Last Admin: 03/28/17 09:28 Dose: 360 mg Docusate Sodium (Colace) 100 mg PO BID [facility] Last Admin: 03/28/17 09:28 Dose: 100 mg Famotidine (Pepcid) 20 mg PO DAILY [facility] Last Admin: 03/28/17 09:29 Dose: 20 mg Finasteride (Proscar) 5 mg PO DAILY [facility] Last Admin: 03/28/17 09:29 Dose: 5 mg Gabapentin (Neurontin) 300 mg PO TID [facility] Last Admin: 03/28/17 13:46 Dose: 300 mg Lactobacillus Acidophilus (Bacid Acidophilus) 1 cap PO BID [facility] Stop: 04/14/17 18:00 Last Admin: 03/28/17 18:15 Dose: 1 cap Levetiracetam (Keppra) 500 mg PO BID [facility] Last Admin: 03/28/17 09:29 Dose: 500 mg Losartan Potassium (Cozaar) 25 mg PO DAILY [facility] Last Admin: 03/28/17 09:29 Dose: 25 mg Morphine Sulfate (Morphine) 2 mg IVP Q4 PRN PRN Reason: Pain, severe (8-10) Last Admin: 03/23/17 21:59 Dose: 2 mg Ondansetron HCl (Zofran Inj) 4 mg IVP Q6 PRN PRN Reason: Nausea/Vomiting Promethazine HCl/Codeine (Phenergan/Codeine Oral Syrup) 5 ml PO Q4 PRN PRN Reason: Cough Rosuvastatin Calcium (Crestor) 5 mg PO HS [facility] Last Admin: 03/27/17 22:16 Dose: 5 mg Tamsulosin HCl (Flomax) 0.4 mg PO DAILY [facility] Last Admin: 03/28/17 09:29 Dose: 0.4 mg - Labs Labs: 03/27/17 11:19 03/27/17 11:19 PT 19.9 SECONDS (9.7-12.2) H 03/28/17 08:15 INR 1.7 03/28/17 08:15 APTT 28 SECONDS (21-34) D 03/09/17 11:30 Attending/Attestation - Attestation I have personally seen and examined this patient.: Yes I have fully participated in the care of the patient.: Yes I have reviewed all pertinent clinical information, including history, physical exam and plan: Yes Notes (Text): 03/28/17 18:18 Patient was seen and examined at 3 PM 03/28/17 358 A Exam, assessment and plan were thoroughly gone over with the resident. Also on ROS: Did have normal bowel movement today as per my conversation with the CORE EXTRUDER Also on Exam: Bilateral AKA amputation surgical site with intact neo and NO wound dehiscence INR at 1.7 today (with goal of 2.5 to 3.5) Coumadin 5 mg PO x 1 dose tonight. Unruly Vines D.O.
[2017-03-28 08:33] LABS: INR 1.7
[2017-03-28] MEDS: diltiaZEM 180 mg/24 Hours CD Cap PO SCH (09:28)
[2017-03-28] MEDS: Lactobacillus Acidophilus 500 MU Cap PO SCH ×2 (09:28→18:15)
--- NOTE | 2017-03-29 00:23 | CP.PCM.PN ---
<Radha Garcia - Last Filed: 03/29/17 06:49> Subjective - Date & Time of Evaluation Date of Evaluation: 03/29/17 Time of Evaluation: 06:15 - Subjective Subjective: Progress note for Dr. Unruly Vines Patient seen and examined at bedside. No acute events overnight. Patient denies any complaints. Patient states he is tolerating pain well as does not have issues with Bowel movements. Objective - Vital Signs/Intake and Output Vital Signs (last 24 hours): Temp Pulse Resp BP Pulse Ox 97.6 F 58 L 20 112/58 L 97 03/28/17 23:00 03/28/17 23:00 03/28/17 23:00 03/28/17 23:00 03/28/17 23:00 Intake and Output: 03/28/17 03/29/17 18:59 06:59 Intake Total 800 Output Total 500 Balance 300 - Medications Medications: Current Medications Amiodarone HCl (Cordarone) 200 mg PO BID [facility] Last Admin: 03/28/17 18:29 Dose: 200 mg Aspirin (Aspirin Chewable) 81 mg PO DAILY [facility] Last Admin: 03/28/17 09:28 Dose: 81 mg Diltiazem HCl (Cardizem Cd) 360 mg PO DAILY [facility] Last Admin: 03/28/17 09:28 Dose: 360 mg Docusate Sodium (Colace) 100 mg PO BID [facility] Last Admin: 03/28/17 18:29 Dose: 100 mg Famotidine (Pepcid) 20 mg PO DAILY [facility] Last Admin: 03/28/17 09:29 Dose: 20 mg Finasteride (Proscar) 5 mg PO DAILY [facility] Last Admin: 03/28/17 09:29 Dose: 5 mg Gabapentin (Neurontin) 300 mg PO TID [facility] Last Admin: 03/28/17 18:29 Dose: 300 mg Lactobacillus Acidophilus (Bacid Acidophilus) 1 cap PO BID [facility] Stop: 04/14/17 18:00 Last Admin: 03/28/17 18:15 Dose: 1 cap Levetiracetam (Keppra) 500 mg PO BID [facility] Last Admin: 03/28/17 18:29 Dose: 500 mg Losartan Potassium (Cozaar) 25 mg PO DAILY [facility] Last Admin: 03/28/17 09:29 Dose: 25 mg Morphine Sulfate (Morphine) 2 mg IVP Q4 PRN PRN Reason: Pain, severe (8-10) Last Admin: 03/28/17 21:28 Dose: 2 mg Ondansetron HCl (Zofran Inj) 4 mg IVP Q6 PRN PRN Reason: Nausea/Vomiting Promethazine HCl/Codeine (Phenergan/Codeine Oral Syrup) 5 ml PO Q4 PRN PRN Reason: Cough Rosuvastatin Calcium (Crestor) 5 mg PO HS [facility] Last Admin: 03/28/17 21:30 Dose: 5 mg Tamsulosin HCl (Flomax) 0.4 mg PO DAILY [facility] Last Admin: 03/28/17 09:29 Dose: 0.4 mg - Labs Labs: 03/27/17 11:19 03/27/17 11:19 PT 19.9 SECONDS (9.7-12.2) H 03/28/17 08:15 INR 1.7 03/28/17 08:15 APTT 28 SECONDS (21-34) D 03/09/17 11:30 - Constitutional Appears: No Acute Distress - Head Exam Head Exam: NORMAL INSPECTION - Eye Exam Eye Exam: EOMI, Normal appearance - ENT Exam ENT Exam: Mucous Membranes Moist - Neck Exam Neck Exam: Full ROM - Cardiovascular Exam Cardiovascular Exam: REGULAR RHYTHM, +S1, +S2. absent: Bradycardia, Tachycardia - GI/Abdominal Exam GI & Abdominal Exam: Soft. absent: Tenderness - Extremities Exam Additional comments: bilateral AKA, mehran in place. 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 He underwent bilateral thrombectomy on 02/05/17. The status of his bilateral lower legs worsened subsequently ( formation of bullae and sloughing of skin and these extremities cool to the touch and intense pain with minor palpation). Cultures from the bilateral lower legs revealed Serratia marcescens and Enterococcus faecalis. Blood Culture was positive for Bacillus species and Urine Cultures positive for Enterococcus faecalis. Because of the likelihood of sepsis, family decided on amputation. 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 Family has completed Medicaid Application and awaiting approval for TRENT placement. Plan: PAD S/P Bilateral AKA 03/04/17 * Vascular Surgery (Dr. Kaur) on the case help appreciated * Cardiology (Dr. Brown) on the case help appreciated * Daily Coumadin * Goal INR is 2.5 to 3.[address] Brown * Advised dietary and nurse patient will need to be on a vitamin K free- dark leafy greens free diet * Brunson to Surgical Site to removed when Ok with Vascular Surgery Dr. Kaur -->mehran to be removed in a month from surgery (04/03/17) * Morphine 2 mg IV Q4H PRN Severe Pain * Gabapentin 300 mg PO 3x/day Cough * CXR 03/22/17: Interval appearance of heterogeneous opacity at the right lung base may represent pneumonia or atelectasis. Otherwise no interval change. * Increase opacity noted when comparted to 02/20/17 CXR * Promethazine PRN Hx Malignant HTN * B/P running on the low end, continue to monitor. Patient is asymptomatic * Held Metoprolol 100 mg PO Q12H in light of hypotension on 03/17; given fluid bolus on 03/17 * Cardizem 360 mg PO 1x/day * Cozaar 25 mg PO 1x/day Hx Sepsis--Resolved * Secondary to gangrenous bilateral legs, +blood culture code sepsis called on * Urine Culture (03/03/17): Enterococcus Faecalis-->sensitive to Vancomycin and PCN * Blood cultures (03/03/17): No growth at 5 days * Urine culture (03/02/17): Enterococcus Faecalis * Blood culture (03/02/17): Bacillus species * Blood Culture (03/02/17): no growth after 5 days * Leg Right and Left (03/02/17): Serratia Marcescens and Enterococcus Faecalis * Repeat Blood Culture (03/07): Negative at 5 days * Repeat Urine Culture (04/06): NO growth * Patient was treated with Ampicillin and Rocephin through 03/11/17. He was switched to Ciprofloxicin on 03/11/17 and this was discontinued by ID on 03/13/17. Hx Atrial Fibrillation * Amiodarone 200 mg PO 2x/day * held Metoprolol 100 mg PO Q12H secondary to hypotension * Cardizem 360 mg PO 1x/day * 03/28 INR 1.7, 5mg Coumadin overnight * Pending INR for Coumadin tonight Hx Seizure Disorder * Because of Elevated LFTs his Dilantin was discontinued and Neurology Dr. Onesimo Hogan started him on Keppra 500 mg PO 2x/day Hx Multiple CVAs * Crestor is being held considering the elevated LFTs and that his Lipid Profile is currently WNL. * Repeat Lipid Panel in 1 month to see where we are with this. * ASA 81 mg PO 1x/day * Keep the blood pressure under control Hx Elevated LFTs-->resolved * Could have been secondary to the Dilantin and the Crestor. The Crestor is being held and the Dilantin was switched over to Keppra. * The LFTs have normalized as of 03/14/17 Hx Elevated WBC-->resolved * Normalized * Likely secondary to the Sepsis as mentioned above * NO fevers * Vitals are stable Hx Enlarged Prostate and Urinary Retention * Proscar 5 mg PO 1x/day * Flomax 0.4 mg PO 1x/day * Patient had urinary retention on 03/20-->patient had urinary straight cath Anemia Likely Secondary to Chronic Disease * HgB/Hct are stable Prophylaxis * Colace 100 mg PO 2x/day * Pepcid 20 mg PO 1x/day * Bacid 1 cap PO 2x/day with STOP on 04/14/17 * Zofran 4 mg IV Q6H PRN N/V * DVT Prophylaxis: he is on coumadin Disposition: Patient is pending [employer] approval. Daughter requests for [facility] for for TR[facility]/Acute Rehab. Discussed with Dr. Yara Vines, Radha Garcia DO PGY1 <Unruly Vines - Last Filed: 03/29/17 18:58> Objective - Vital Signs/Intake and Output Vital Signs (last 24 hours): Temp Pulse Resp BP Pulse Ox 97.3 F L 61 20 122/57 L 97 03/29/17 15:15 03/29/17 15:15 03/29/17 15:15 03/29/17 15:15 03/29/17 15:15 Intake and Output: 03/29/17 03/29/17 06:59 18:59 Intake Total 400 900 Balance 400 900 - Medications Medications: Current Medications Amiodarone HCl (Cordarone) 200 mg PO BID [facility] Last Admin: 03/29/17 17:14 Dose: 200 mg Aspirin (Aspirin Chewable) 81 mg PO DAILY [facility] Last Admin: 03/29/17 09:30 Dose: 81 mg Diltiazem HCl (Cardizem Cd) 360 mg PO DAILY [facility] Last Admin: 03/29/17 09:31 Dose: 360 mg Docusate Sodium (Colace) 100 mg PO BID [facility] Last Admin: 03/29/17 17:14 Dose: 100 mg Famotidine (Pepcid) 20 mg PO DAILY [facility] Last Admin: 03/29/17 09:32 Dose: 20 mg Finasteride (Proscar) 5 mg PO DAILY [facility] Last Admin: 03/29/17 09:32 Dose: 5 mg Gabapentin (Neurontin) 300 mg PO TID [facility] Last Admin: 03/29/17 17:14 Dose: 300 mg Lactobacillus Acidophilus (Bacid Acidophilus) 1 cap PO BID [facility] Stop: 04/14/17 18:00 Last Admin: 03/29/17 17:14 Dose: 1 cap Levetiracetam (Keppra) 500 mg PO BID [facility] Last Admin: 03/29/17 17:14 Dose: 500 mg Losartan Potassium (Cozaar) 25 mg PO DAILY [facility] Last Admin: 03/29/17 10:00 Dose: 25 mg Morphine Sulfate (Morphine) 2 mg IVP Q4 PRN PRN Reason: Pain, severe (8-10) Last Admin: 03/29/17 13:49 Dose: 2 mg Ondansetron HCl (Zofran Inj) 4 mg IVP Q6 PRN PRN Reason: Nausea/Vomiting Promethazine HCl/Codeine (Phenergan/Codeine Oral Syrup) 5 ml PO Q4 PRN PRN Reason: Cough Rosuvastatin Calcium (Crestor) 5 mg PO HS [facility] Last Admin: 03/28/17 21:30 Dose: 5 mg Tamsulosin HCl (Flomax) 0.4 mg PO DAILY [facility] Last Admin: 03/29/17 09:32 Dose: 0.4 mg - Labs Labs: 03/27/17 11:19 03/27/17 11:19 PT 26.7 SECONDS (9.7-12.2) H D 03/29/17 09:08 INR 2.3 D 03/29/17 09:08 APTT 31 SECONDS (21-34) 03/29/17 09:08 Attending/Attestation - Attestation I have personally seen and examined this patient.: Yes I have fully participated in the care of the patient.: Yes I have reviewed all pertinent clinical information, including history, physical exam and plan: Yes Notes (Text): 03/29/17 18:57 Patient was seen and examined at 11:45 AM 03/29/17 358 A Exam, assessment and plan were thoroughly gone over with the resident. Also on ROS: Did have normal bowel movement today as per my conversation with the PIPEFITTER Also on Exam: Bilateral AKA amputation surgical site with intact mehran and NO wound dehiscence Bilateral Inguinal Surgical Sites are clean without wound dehiscence INR at 2.3 today (with goal of 2.5 to 3.5) Coumadin 4 mg PO x 1 dose tonight. Unruly Vines D.O.
[2017-03-29 09:22] LABS: INR 2.3
[2017-03-29] MEDS: Lactobacillus Acidophilus 500 MU Cap PO SCH ×2 (09:31→17:14)
[2017-03-29] MEDS: diltiaZEM 180 mg/24 Hours CD Cap PO SCH (09:31)
[2017-03-30 08:45] LABS: BASO % 0.2 % (0.0-2.0); EOS # 0.1 K/uL (0.0-0.7); EOS % 1.9 % (0.0-4.0); HEMATOCRIT 33.5 % (35.0-51.0); LYMPH # 1.7 K/uL (1.0-4.3); LYMPH % 24.2 % (20.0-40.0); MEAN CELL VOLUME 80.2 fL (80.0-94.0); MEAN CORPUSCULAR HGB CONC 33.6 g/dL (33.0-37.0); MEAN PLATELET VOLUME 7.8 fL (7.2-11.7); MONO # 0.4 K/uL (0.0-0.8); RED CELL DISTRIBUTION WIDTH 16.9 % (11.5-14.5); WHITE BLOOD COUNT 6.8 K/uL (4.8-10.8)
[2017-03-30 08:49] LABS: INR 2.9
[2017-03-30 08:56] LABS: CHLORIDE 99 mmol/L (98-107)
[2017-03-30 08:57] LABS: SODIUM 133 mmol/L (132-148)
[2017-03-30 08:59] LABS: ALKALINE PHOSPHATASE 130 U/L (38-126); ALT/SGPT 29 U/L (21-72); AST/SGOT 19 U/L (17-59); BILIRUBIN,TOTAL 0.5 mg/dL (0.2-1.3); BLOOD UREA NITROGEN 17 mg/dL (9-20); CARBON DIOXIDE 26 mmol/L (22-30); GFR AFRICAN-AMERICAN > 60; GLUCOSE,RANDOM 74 mg/dL (75-110); TOTAL PROTEIN 5.4 g/dL (6.3-8.3)
[2017-03-30 09:00] LABS: CALCIUM 8.2 mg/dl (8.6-10.4); MAGNESIUM 1.7 mg/dL (1.6-2.3); PHOSPHOROUS 3.7 mg/dL (2.5-4.5)
[2017-03-30 09:05] LABS: ALB/GLOB RATIO 1.2 (1.0-2.1)
[2017-03-30] MEDS: diltiaZEM 180 mg/24 Hours CD Cap PO SCH (09:21)
[2017-03-30] MEDS: Lactobacillus Acidophilus 500 MU Cap PO SCH ×2 (09:22→18:39)
--- NOTE | 2017-03-30 11:30 | CP.PCM.PN ---
<Kat Qureshi - Last Filed: 03/30/17 18:11> Subjective - Date & Time of Evaluation Date of Evaluation: 03/30/17 Time of Evaluation: 11:32 - Subjective Subjective: Patient has been seen and examined. No overnight events reported. Patient reports mild pain at amputation site. Denies any fever, chest pain, SOB, changes in bowel habits or urinary symptoms. He stated he would like to get the flu vaccine. Objective - Vital Signs/Intake and Output Vital Signs (last 24 hours): Temp Pulse Resp BP Pulse Ox 98.0 F 64 20 152/73 H 98 03/30/17 07:54 03/30/17 07:54 03/30/17 07:54 03/30/17 07:54 03/30/17 07:54 Intake and Output: 03/30/17 03/30/17 06:59 18:59 Intake Total 0 Balance 0 - Medications Medications: Current Medications Amiodarone HCl (Cordarone) 200 mg PO BID [facility] Last Admin: 03/30/17 09:20 Dose: 200 mg Aspirin (Aspirin Chewable) 81 mg PO DAILY [facility] Last Admin: 03/30/17 09:19 Dose: 81 mg Diltiazem HCl (Cardizem Cd) 360 mg PO DAILY [facility] Last Admin: 03/30/17 09:21 Dose: 360 mg Docusate Sodium (Colace) 100 mg PO BID [facility] Last Admin: 03/30/17 09:19 Dose: 100 mg Famotidine (Pepcid) 20 mg PO DAILY [facility] Last Admin: 03/30/17 09:20 Dose: 20 mg Finasteride (Proscar) 5 mg PO DAILY [facility] Last Admin: 03/30/17 09:21 Dose: 5 mg Gabapentin (Neurontin) 300 mg PO TID [facility] Last Admin: 03/30/17 09:19 Dose: 300 mg Lactobacillus Acidophilus (Bacid Acidophilus) 1 cap PO BID [facility] Stop: 04/14/17 18:00 Last Admin: 03/30/17 09:22 Dose: 1 cap Levetiracetam (Keppra) 500 mg PO BID [facility] Last Admin: 03/30/17 09:19 Dose: 500 mg Losartan Potassium (Cozaar) 25 mg PO DAILY [facility] Last Admin: 03/30/17 09:20 Dose: 25 mg Morphine Sulfate (Morphine) 2 mg IVP Q4 PRN PRN Reason: Pain, severe (8-10) Last Admin: 03/29/17 13:49 Dose: 2 mg Ondansetron HCl (Zofran Inj) 4 mg IVP Q6 PRN PRN Reason: Nausea/Vomiting Promethazine HCl/Codeine (Phenergan/Codeine Oral Syrup) 5 ml PO Q4 PRN PRN Reason: Cough Rosuvastatin Calcium (Crestor) 5 mg PO HS [facility] Last Admin: 03/29/17 21:55 Dose: 5 mg Tamsulosin HCl (Flomax) 0.4 mg PO DAILY [facility] Last Admin: 03/30/17 09:19 Dose: 0.4 mg - Labs Labs: 03/30/17 08:20 03/30/17 08:20 PT 33.9 SECONDS (9.7-12.2) H* D 03/30/17 08:20 INR 2.9 D 03/30/17 08:20 APTT 33 SECONDS (21-34) 03/30/17 08:20 - Constitutional Appears: Well, Non-toxic, No Acute Distress - Head Exam Head Exam: ATRAUMATIC, NORMOCEPHALIC - Eye Exam Eye Exam: Normal appearance - Respiratory Exam Respiratory Exam: Clear to Ausculation Bilateral, NORMAL BREATHING PATTERN. absent: Accessory Muscle Use - Cardiovascular Exam Cardiovascular Exam: RRR, +S1, +S2. absent: Rubs, Murmur - GI/Abdominal Exam GI & Abdominal Exam: Soft. absent: Tenderness - Extremities Exam Additional comments: B/L AKA. Surgical Site clean and dry w/o erythema. 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 He underwent bilateral thrombectomy on 02/05/17. The status of his bilateral lower legs worsened subsequently ( formation of bullae and sloughing of skin and these extremities cool to the touch and intense pain with minor palpation). Cultures from the bilateral lower legs revealed Serratia marcescens and Enterococcus faecalis. Blood Culture was positive for Bacillus species and Urine Cultures positive for Enterococcus faecalis. Because of the likelihood of sepsis, family decided on amputation. 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 Family has completed Medicaid Application and awaiting approval for [facility] placement. Plan: PAD S/P Bilateral AKA 03/04/17 Vascular Surgery (Dr. Kaur) on the case help appreciated Cardiology (Dr. Brown) on the case help appreciated Daily Coumadin Goal INR is 2.5 to 3.[address] Brown Advised dietary and nurse patient will need to be on a vitamin K free- dark leafy greens free diet Neo to Surgical Site to removed when Ok with Vascular Surgery Dr. Kaur-->neo to be removed in a month from surgery (04/03/17) Morphine 2 mg IV Q4H PRN Severe Pain Gabapentin 300 mg PO 3x/day Cough CXR 03/22/17: Interval appearance of heterogeneous opacity at the right lung base may represent pneumonia or atelectasis. Otherwise no interval change. Increase opacity noted when compared to 02/20/17 CXR Promethazine PRN Hx Malignant HTN (Stable) B/P running on the low end, continue to monitor. Patient is asymptomatic Held Metoprolol 100 mg PO Q12H in light of hypotension on 03/17; given fluid bolus on 03/17 Cardizem 360 mg PO 1x/day Cozaar 25 mg PO 1x/day Hx Sepsis--Resolved Secondary to gangrenous bilateral legs, +blood culture code sepsis called on 03/03 Urine Culture (03/03/17): Enterococcus Faecalis-->sensitive to Vancomycin and PCN Blood cultures (03/03/17): No growth at 5 days Urine culture (03/02/17): Enterococcus Faecalis Blood culture (03/02/17): Bacillus species Blood Culture (03/02/17): no growth after 5 days Leg Right and Left (03/02/17): Serratia Marcescens and Enterococcus Faecalis Repeat Blood Culture (03/07): Negative at 5 days Repeat Urine Culture (04/06): NO growth Patient was treated with Ampicillin and Rocephin through 03/11/17. He was switched to Ciprofloxicin on 03/11/17 and this was discontinued by ID on 03/13/17. Hx Atrial Fibrillation (Stable) Amiodarone 200 mg PO 2x/day held Metoprolol 100 mg PO Q12H secondary to hypotension Cardizem 360 mg PO 1x/day 03/28 INR 1.7, 5mg Coumadin overnight INR 2.9 today. Coumadin 4 tonight Hx Seizure Disorder Because of Elevated LFTs his Dilantin was discontinued and Neurology Dr. Onesimo Hgoan started him on Keppra 500 mg PO 2x/day Hx Multiple CVAs Crestor is being held considering the elevated LFTs and that his Lipid Profile is currently WNL. Repeat Lipid Panel in 1 month (Mid April) to see where we are with this. ASA 81 mg PO 1x/day Keep the blood pressure under control Hx Elevated LFTs-->resolved Could have been secondary to the Dilantin and the Crestor. The Crestor is being held and the Dilantin was switched over to Keppra. The LFTs have normalized as of 03/14/17 Hx Elevated WBC-->resolved Normalized Likely secondary to the Sepsis as mentioned above NO fevers Vitals are stable Hx Enlarged Prostate and Urinary Retention Proscar 5 mg PO 1x/day Flomax 0.4 mg PO 1x/day Patient had urinary retention on 03/20-->patient had urinary straight cath Anemia Likely Secondary to Chronic Disease HgB/Hct are stable Prophylaxis Colace 100 mg PO 2x/day Pepcid 20 mg PO 1x/day Bacid 1 cap PO 2x/day with STOP on 04/14/17 Zofran 4 mg IV Q6H PRN N/V DVT Prophylaxis: he is on coumadin Disposition: Patient is pending [employer] approval. Daughter requests for [facility] for for [facility]/Acute Rehab. Patient seen, discussed, and reviewed with Attending (Dr. Vines) Kat Qureshi, PGY-1 <Unruly Vines - Last Filed: 03/30/17 22:18> Objective - Vital Signs/Intake and Output Vital Signs (last 24 hours): Temp Pulse Resp BP Pulse Ox 98.5 F 54 L 20 93/57 L 99 03/30/17 15:00 03/30/17 15:00 03/30/17 15:00 03/30/17 15:00 03/30/17 15:00 Intake and Output: 03/30/17 03/31/17 18:59 06:59 Intake Total 360 Balance 360 - Medications Medications: Current Medications Amiodarone HCl (Cordarone) 200 mg PO BID [facility] Last Admin: 03/30/17 18:40 Dose: Not Given Aspirin (Aspirin Chewable) 81 mg PO DAILY [facility] Last Admin: 03/30/17 09:19 Dose: 81 mg Diltiazem HCl (Cardizem Cd) 360 mg PO DAILY [facility] Last Admin: 03/30/17 09:21 Dose: 360 mg Docusate Sodium (Colace) 100 mg PO BID [facility] Last Admin: 03/30/17 18:38 Dose: 100 mg Famotidine (Pepcid) 20 mg PO DAILY [facility] Last Admin: 03/30/17 09:20 Dose: 20 mg Finasteride (Proscar) 5 mg PO DAILY [facility] Last Admin: 03/30/17 09:21 Dose: 5 mg Gabapentin (Neurontin) 300 mg PO TID [facility] Last Admin: 03/30/17 18:38 Dose: 300 mg Lactobacillus Acidophilus (Bacid Acidophilus) 1 cap PO BID [facility] Stop: 04/14/17 18:00 Last Admin: 03/30/17 18:39 Dose: 1 cap Levetiracetam (Keppra) 500 mg PO BID [facility] Last Admin: 03/30/17 18:38 Dose: 500 mg Losartan Potassium (Cozaar) 25 mg PO DAILY [facility] Last Admin: 03/30/17 09:20 Dose: 25 mg Morphine Sulfate (Morphine) 2 mg IVP Q4 PRN PRN Reason: Pain, severe (8-10) Last Admin: 03/30/17 21:38 Dose: 2 mg Ondansetron HCl (Zofran Inj) 4 mg IVP Q6 PRN PRN Reason: Nausea/Vomiting Promethazine HCl/Codeine (Phenergan/Codeine Oral Syrup) 5 ml PO Q4 PRN PRN Reason: Cough Rosuvastatin Calcium (Crestor) 5 mg PO HS [facility] Last Admin: 03/30/17 21:38 Dose: 5 mg Tamsulosin HCl (Flomax) 0.4 mg PO DAILY [facility] Last Admin: 03/30/17 09:19 Dose: 0.4 mg - Labs Labs: 03/30/17 08:20 03/30/17 08:20 PT 33.9 SECONDS (9.7-12.2) H* D 03/30/17 08:20 INR 2.9 D 03/30/17 08:20 APTT 33 SECONDS (21-34) 03/30/17 08:20 Attending/Attestation - Attestation I have personally seen and examined this patient.: Yes I have fully participated in the care of the patient.: Yes I have reviewed all pertinent clinical information, including history, physical exam and plan: Yes Notes (Text): 03/30/17 22:17 Patient was seen and examined at 7 PM 03/30/17 358 A Exam, assessment and plan were thoroughly gone over with the resident. Also on ROS: Did have normal bowel movement today as per my conversation with the [employer] Also on Exam: Bilateral AKA amputation surgical site with intact neo and NO wound dehiscence Bilateral Inguinal Surgical Sites are clean without wound dehiscence INR at 2.9 today (with goal of 2.5 to 3.5) Coumadin 4 mg PO x 1 dose tonight. Unruly Vines D.O.
[2017-03-31 07:44] LABS: INR 3.8
[2017-03-31] MEDS: diltiaZEM 180 mg/24 Hours CD Cap PO SCH (11:23)
[2017-03-31] MEDS: Lactobacillus Acidophilus 500 MU Cap PO SCH ×2 (11:24→18:48)
[2017-03-31] MEDS ORDERED: Influenza Vaccine 60 mcg/0.5 mL SYR (4YR UP) IM ONE (15:57)
--- NOTE | 2017-03-31 16:02 | CP.PCM.PN ---
<Kat Qureshi - Last Filed: 03/31/17 16:03> Subjective - Date & Time of Evaluation Date of Evaluation: 03/31/17 Time of Evaluation: 16:01 - Subjective Subjective: Patient has been seen and examined. No overnight events reported. Patient reports mild pain at amputation site. Denies any fever, chest pain, SOB, changes in bowel habits or urinary symptoms. Asked when mehran/sutures would be taken out and when he would be fitted for prosthetics. Objective - Vital Signs/Intake and Output Vital Signs (last 24 hours): Temp Pulse Resp BP Pulse Ox 97.4 F L 65 20 161/72 H 97 03/31/17 08:22 03/31/17 12:52 03/31/17 08:22 03/31/17 08:22 03/31/17 12:52 Intake and Output: 03/31/17 03/31/17 06:59 18:59 Intake Total 910 Output Total 400 600 Balance 510 -600 - Medications Medications: Current Medications Amiodarone HCl (Cordarone) 200 mg PO BID [facility] Last Admin: 03/31/17 11:22 Dose: 200 mg Aspirin (Aspirin Chewable) 81 mg PO DAILY [facility] Last Admin: 03/31/17 11:22 Dose: 81 mg Diltiazem HCl (Cardizem Cd) 360 mg PO DAILY [facility] Last Admin: 03/31/17 11:23 Dose: 360 mg Docusate Sodium (Colace) 100 mg PO BID [facility] Last Admin: 03/31/17 11:22 Dose: 100 mg Famotidine (Pepcid) 20 mg PO DAILY [facility] Last Admin: 03/31/17 11:22 Dose: 20 mg Finasteride (Proscar) 5 mg PO DAILY [facility] Last Admin: 03/31/17 12:03 Dose: 5 mg Gabapentin (Neurontin) 300 mg PO TID [facility] Last Admin: 03/31/17 13:29 Dose: 300 mg Lactobacillus Acidophilus (Bacid Acidophilus) 1 cap PO BID [facility] Stop: 04/14/17 18:00 Last Admin: 03/31/17 11:24 Dose: 1 cap Levetiracetam (Keppra) 500 mg PO BID [facility] Last Admin: 03/31/17 11:22 Dose: 500 mg Losartan Potassium (Cozaar) 25 mg PO DAILY [facility] Last Admin: 03/31/17 11:22 Dose: 25 mg Ondansetron HCl (Zofran Inj) 4 mg IVP Q6 PRN PRN Reason: Nausea/Vomiting Promethazine HCl/Codeine (Phenergan/Codeine Oral Syrup) 5 ml PO Q4 PRN PRN Reason: Cough Rosuvastatin Calcium (Crestor) 5 mg PO HS [facility] Last Admin: 03/30/17 21:38 Dose: 5 mg Tamsulosin HCl (Flomax) 0.4 mg PO DAILY [facility] Last Admin: 03/31/17 11:21 Dose: 0.4 mg - Labs Labs: 03/30/17 08:20 03/30/17 08:20 PT 44.9 SECONDS (9.7-12.2) H* D 03/31/17 07:01 INR 3.8 03/31/17 07:01 APTT 34 SECONDS (21-34) 03/31/17 07:01 - Neck Exam Additional comments: - Constitutional Appears: Well, Non-toxic, No Acute Distress - Head Exam Head Exam: ATRAUMATIC, NORMOCEPHALIC - Eye Exam Eye Exam: Normal appearance - Respiratory Exam Respiratory Exam: Clear to Ausculation Bilateral, NORMAL BREATHING PATTERN. absent: Accessory Muscle Use - Cardiovascular Exam Cardiovascular Exam: RRR, +S1, +S2. absent: Rubs, Murmur - GI/Abdominal Exam GI & Abdominal Exam: Soft. absent: Tenderness. Surgical site wound in right inguinal region. Clean, dry, no dehiscence. - Extremities Exam Additional comments: B/L AKA. Surgical Site clean and dry w/o erythema. 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 He underwent bilateral thrombectomy on 02/05/17. The status of his bilateral lower legs worsened subsequently ( formation of bullae and sloughing of skin and these extremities cool to the touch and intense pain with minor palpation). Cultures from the bilateral lower legs revealed Serratia marcescens and Enterococcus faecalis. Blood Culture was positive for Bacillus species and Urine Cultures positive for Enterococcus faecalis. Because of the likelihood of sepsis, family decided on amputation. 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 Family has completed Medicaid Application and awaiting approval for [facility] placement. Plan: PAD S/P Bilateral AKA 03/04/17 Vascular Surgery (Dr. Kaur) on the case help appreciated Cardiology (Dr. Brown) on the case help appreciated Daily Coumadin Goal INR is 2.5 to 3.[address] Brown Advised dietary and nurse patient will need to be on a vitamin K free- dark leafy greens free diet Locke to be removed today per surgery. Morphine 2 mg IV Q4H PRN Severe Pain Gabapentin 300 mg PO 3x/day Cough CXR 03/22/17: Interval appearance of heterogeneous opacity at the right lung base may represent pneumonia or atelectasis. Otherwise no interval change. Increase opacity noted when compared to 02/20/17 CXR Promethazine PRN Hx Malignant HTN (Stable) B/P running on the low end, continue to monitor. Patient is asymptomatic Held Metoprolol 100 mg PO Q12H in light of hypotension on 03/17; given fluid bolus on 03/17 Cardizem 360 mg PO 1x/day Cozaar 25 mg PO 1x/day Hx Sepsis--Resolved Secondary to gangrenous bilateral legs, +blood culture code sepsis called on 03/03 Urine Culture (03/03/17): Enterococcus Faecalis-->sensitive to Vancomycin and PCN Blood cultures (03/03/17): No growth at 5 days Urine culture (03/02/17): Enterococcus Faecalis Blood culture (03/02/17): Bacillus species Blood Culture (03/02/17): no growth after 5 days Leg Right and Left (03/02/17): Serratia Marcescens and Enterococcus Faecalis Repeat Blood Culture (03/07): Negative at 5 days Repeat Urine Culture (04/06): NO growth Patient was treated with Ampicillin and Rocephin through 03/11/17. He was switched to Ciprofloxicin on 03/11/17 and this was discontinued by ID on 03/13/17. Hx Atrial Fibrillation (Stable) Amiodarone 200 mg PO 2x/day held Metoprolol 100 mg PO Q12H secondary to hypotension Cardizem 360 mg PO 1x/day 03/28 INR 1.7, 5mg Coumadin overnight INR 3.9 today. Coumadin held today. Hx Seizure Disorder Because of Elevated LFTs his Dilantin was discontinued and Neurology Dr. Onesimo Hogan started him on Keppra 500 mg PO 2x/day Hx Multiple CVAs Crestor is being held considering the elevated LFTs and that his Lipid Profile is currently WNL. Repeat Lipid Panel in 1 month (Mid April) to see where we are with this. ASA 81 mg PO 1x/day Keep the blood pressure under control Hx Elevated LFTs-->resolved Could have been secondary to the Dilantin and the Crestor. The Crestor is being held and the Dilantin was switched over to Keppra. The LFTs have normalized as of 03/14/17 Hx Elevated WBC-->resolved Normalized Likely secondary to the Sepsis as mentioned above NO fevers Vitals are stable Hx Enlarged Prostate and Urinary Retention Proscar 5 mg PO 1x/day Flomax 0.4 mg PO 1x/day Patient had urinary retention on 03/20-->patient had urinary straight cath Anemia Likely Secondary to Chronic Disease HgB/Hct are stable Prophylaxis Colace 100 mg PO 2x/day Pepcid 20 mg PO 1x/day Bacid 1 cap PO 2x/day with STOP on 04/14/17 Zofran 4 mg IV Q6H PRN N/V DVT Prophylaxis: he is on coumadin (held today) Disposition: Patient is pending [employer] approval. Daughter requests for [facility] for for [facility]/Acute Rehab. Patient seen, discussed, and reviewed with Attending (Dr. Vines) Kat Qureshi, PGY-1 <Alexandra Skinner V - Last Filed: 03/31/17 23:10> Objective - Vital Signs/Intake and Output Vital Signs (last 24 hours): Temp Pulse Resp BP Pulse Ox 97.6 F 64 20 109/62 97 03/31/17 15:00 03/31/17 15:00 03/31/17 15:00 03/31/17 15:00 03/31/17 15:00 Intake and Output: 03/31/17 04/01/17 18:59 06:59 Intake Total 480 Output Total 600 Balance -120 - Medications Medications: Current Medications Amiodarone HCl (Cordarone) 200 mg PO BID [facility] Last Admin: 03/31/17 18:49 Dose: 200 mg Aspirin (Aspirin Chewable) 81 mg PO DAILY [facility] Last Admin: 03/31/17 11:22 Dose: 81 mg Diltiazem HCl (Cardizem Cd) 360 mg PO DAILY [facility] Last Admin: 03/31/17 11:23 Dose: 360 mg Docusate Sodium (Colace) 100 mg PO BID [facility] Last Admin: 03/31/17 18:48 Dose: 100 mg Famotidine (Pepcid) 20 mg PO DAILY [facility] Last Admin: 03/31/17 11:22 Dose: 20 mg Finasteride (Proscar) 5 mg PO DAILY [facility] Last Admin: 03/31/17 12:03 Dose: 5 mg Gabapentin (Neurontin) 300 mg PO TID [facility] Last Admin: 03/31/17 18:49 Dose: 300 mg Lactobacillus Acidophilus (Bacid Acidophilus) 1 cap PO BID [facility] Stop: 04/14/17 18:00 Last Admin: 03/31/17 18:48 Dose: 1 cap Levetiracetam (Keppra) 500 mg PO BID [facility] Last Admin: 03/31/17 18:49 Dose: 500 mg Losartan Potassium (Cozaar) 25 mg PO DAILY [facility] Last Admin: 03/31/17 11:22 Dose: 25 mg Ondansetron HCl (Zofran Inj) 4 mg IVP Q6 PRN PRN Reason: Nausea/Vomiting Promethazine HCl/Codeine (Phenergan/Codeine Oral Syrup) 5 ml PO Q4 PRN PRN Reason: Cough Rosuvastatin Calcium (Crestor) 5 mg PO HS [facility] Last Admin: 03/31/17 22:16 Dose: 5 mg Tamsulosin HCl (Flomax) 0.4 mg PO DAILY [facility] Last Admin: 03/31/17 11:21 Dose: 0.4 mg - Labs Labs: 03/30/17 08:20 03/30/17 08:20 PT 44.9 SECONDS (9.7-12.2) H* D 03/31/17 07:01 INR 3.8 03/31/17 07:01 APTT 34 SECONDS (21-34) 03/31/17 07:01 Attending/Attestation - Attestation I have personally seen and examined this patient.: Yes I have fully participated in the care of the patient.: Yes I have reviewed all pertinent clinical information, including history, physical exam and plan: Yes Notes (Text): Patient seen, examined, and case discussed with day-time resident. Patient seen during morning rounds. Patient denies acute complaints. Patient inquiring for when his mehran will come out and for his prosthesis. Will need to f/u with surgery given he is due for staple removal this week. INR was elevated. will skip tonight's Coumadin dose, and monitor INR tomorrow Spoke with case management, will look into status of patient's medicaid [place]. Patient seen, examined, and case discussed with day-time resident. Patient reports he has a small cold and with dry cough. Patient asking for a sleeping pill; reports he is not sleeping well at night. Will order Chest Xray portable given URI. Will given promethazine w codeine 5ml PO Q 4H prn cough. Patient had bowel movement this morning. No rashes. No signs of bleeding. Pending INR for Coumadin dose tonight. Will restart low dose statin tonight, monitor LFTs Assessment/Plan 1). PAD S/P Bilateral AKA 03/04/17 * Vascular Surgery (Dr. Kaur) on the case help appreciated * Cardiology (Dr. Brown) on the case help appreciated * Skipped Coumadin dose tonight, INR: 3.8 * Goal INR is 2.5 to 3.[address] Brown * Locke to Surgical Site to removed when Ok with Vascular Surgery Dr. Kaur -->mehran to be removed in a month from surgery (04/03/17 * Gabapentin 300 mg PO 3x/day 2). Hx Malignant HTN * B/P running on the low end, continue to monitor. Patient is asymptomatic * Held Metoprolol 100 mg PO Q12H in light of hypotension on 03/17; given fluid bolus on 03/17 * Cardizem 360 mg PO 1x/day * Cozaar 25 mg PO 1x/day 3). Hx Sepsis--Resolved * Secondary to gangrenous bilateral legs, +blood culture code sepsis called on * Urine Culture (03/03/17): Enterococcus Faecalis-->sensitive to Vancomycin and PCN * Blood cultures (03/03/17): No growth at 5 days * Urine culture (03/02/17): Enterococcus Faecalis * Blood culture (03/02/17): Bacillus species * Blood Culture (03/02/17): no growth after 5 days * Leg Right and Left (03/02/17): Serratia Marcescens and Enterococcus Faecalis * Repeat Blood Culture (03/07): Negative at 5 days * Repeat Urine Culture (04/06): NO growth * Patient was treated with Ampicillin and Rocephin through 03/11/17. He was switched to Ciprofloxicin on 03/11/17 and this was discontinued by ID on 03/13/17. 4). Hx Atrial Fibrillation * Amiodarone 200 mg PO 2x/day * held Metoprolol 100 mg PO Q12H secondary to hypotension * Cardizem 360 mg PO 1x/day * therapuetic 5). Hx Seizure Disorder * Because of Elevated LFTs his Dilantin was discontinued and Neurology Dr. Onesimo Hogan started him on Keppra 500 mg PO 2x/day 6). Hx Multiple CVAs * Crestor is being held considering the elevated LFTs and that his Lipid Profile is currently WNL. * Repeat Lipid Panel in 1 month to see where we are with this. * ASA 81 mg PO 1x/day * Keep the blood pressure under control 7). Hx Elevated LFTs-->resolved * Could have been secondary to the Dilantin and the Crestor. The Crestor is being held and the Dilantin was switched over to Keppra. * The LFTs have normalized as of 03/14/17 8). Hx Elevated WBC-->resolved * Normalized * Likely secondary to the Sepsis as mentioned above * NO fevers * Vitals are stable 9). Hx Enlarged Prostate and Urinary Retention * Proscar 5 mg PO 1x/day * Flomax 0.4 mg PO 1x/day * Patient had urinary retention on 03/20-->patient had urinary straight cath 10). Anemia Likely Secondary to Chronic Disease * HgB/Hct are stable 11). Prophylaxis * Colace 100 mg PO 2x/day * Pepcid 20 mg PO 1x/day * Zofran 4 mg IV Q6H PRN N/V * DVT Prophylaxis: he is on coumadin Disposition: Patient is pending [employer] approval. Daughter requests for [facility] for for [facility]/Acute Rehab.
[2017-04-01 07:33] LABS: INR 3.4
[2017-04-01] MEDS: Lactobacillus Acidophilus 500 MU Cap PO SCH ×2 (10:02→19:00)
[2017-04-01] MEDS: diltiaZEM 180 mg/24 Hours CD Cap PO SCH (10:03)
[2017-04-01 12:16] LABS: CHLORIDE 101 mmol/L (98-107)
[2017-04-01 12:17] LABS: SODIUM 133 mmol/L (132-148)
[2017-04-01 12:19] LABS: ALB/GLOB RATIO 0.8 (1.0-2.1); AST/SGOT 19 U/L (17-59); BILIRUBIN,TOTAL 0.3 mg/dL (0.2-1.3); CARBON DIOXIDE 26 mmol/L (22-30); GFR AFRICAN-AMERICAN > 60; TOTAL PROTEIN 6.1 g/dL (6.3-8.3)
[2017-04-01 12:20] LABS: ALKALINE PHOSPHATASE 114 U/L (38-126); ALT/SGPT 29 U/L (21-72); BLOOD UREA NITROGEN 17 mg/dL (9-20); CALCIUM 8.3 mg/dl (8.6-10.4); GLUCOSE,RANDOM 77 mg/dL (75-110); MAGNESIUM 1.8 mg/dL (1.6-2.3); PHOSPHOROUS 3.5 mg/dL (2.5-4.5)
[2017-04-01 14:16] LABS: BASO % 0.1 % (0.0-2.0); EOS # 0.1 K/uL (0.0-0.7); EOS % 1.5 % (0.0-4.0); LYMPH # 1.9 K/uL (1.0-4.3); LYMPH % 25.4 % (20.0-40.0); MEAN CELL VOLUME 80.1 fL (80.0-94.0); MEAN CORPUSCULAR HEMOGLOBIN 26.3 pg (27.0-31.0); MEAN CORPUSCULAR HGB CONC 32.8 g/dL (33.0-37.0); MEAN PLATELET VOLUME 7.8 fL (7.2-11.7); MONO # 0.4 K/uL (0.0-0.8); MONO % 6.1 % (0.0-10.0); RED CELL DISTRIBUTION WIDTH 16.6 % (11.5-14.5); WHITE BLOOD COUNT 7.4 K/uL (4.8-10.8)
--- NOTE | 2017-04-01 17:51 | CP.PCM.PN ---
<Kat Qureshi - Last Filed: 04/01/17 17:47> Subjective - Date & Time of Evaluation Date of Evaluation: 04/01/17 Time of Evaluation: 10:00 - Subjective Subjective: Patient has been seen and examined. No overnight events reported. Denies fever , chills, cp, sob, n/v/d, constipaton, abdominal pain, or pain at surgical site. Objective - Vital Signs/Intake and Output Vital Signs (last 24 hours): Temp Pulse Resp BP Pulse Ox 97.9 F 55 L 20 113/53 L 96 04/01/17 15:00 04/01/17 15:00 04/01/17 15:00 04/01/17 15:00 04/01/17 15:00 Intake and Output: 04/01/17 04/01/17 06:59 18:59 Intake Total 360 240 Output Total 300 500 Balance 60 -260 - Medications Medications: Current Medications Amiodarone HCl (Cordarone) 200 mg PO BID [facility] Last Admin: 04/01/17 17:46 Dose: 200 mg Aspirin (Aspirin Chewable) 81 mg PO DAILY [facility] Last Admin: 04/01/17 10:01 Dose: 81 mg Diltiazem HCl (Cardizem Cd) 360 mg PO DAILY [facility] Last Admin: 04/01/17 10:03 Dose: 360 mg Docusate Sodium (Colace) 100 mg PO BID [facility] Last Admin: 04/01/17 17:45 Dose: 100 mg Famotidine (Pepcid) 20 mg PO DAILY [facility] Last Admin: 04/01/17 10:01 Dose: 20 mg Finasteride (Proscar) 5 mg PO DAILY [facility] Last Admin: 04/01/17 10:01 Dose: 5 mg Gabapentin (Neurontin) 300 mg PO TID [facility] Last Admin: 04/01/17 17:45 Dose: 300 mg Lactobacillus Acidophilus (Bacid Acidophilus) 1 cap PO BID [facility] Stop: 04/14/17 18:00 Last Admin: 04/01/17 10:02 Dose: 1 cap Levetiracetam (Keppra) 500 mg PO BID [facility] Last Admin: 04/01/17 17:46 Dose: 500 mg Losartan Potassium (Cozaar) 25 mg PO DAILY [facility] Last Admin: 04/01/17 10:04 Dose: 25 mg Ondansetron HCl (Zofran Inj) 4 mg IVP Q6 PRN PRN Reason: Nausea/Vomiting Promethazine HCl/Codeine (Phenergan/Codeine Oral Syrup) 5 ml PO Q4 PRN PRN Reason: Cough Rosuvastatin Calcium (Crestor) 5 mg PO HS [facility] Last Admin: 03/31/17 22:16 Dose: 5 mg Tamsulosin HCl (Flomax) 0.4 mg PO DAILY [facility] Last Admin: 04/01/17 10:01 Dose: 0.4 mg - Labs Labs: 04/01/17 11:19 04/01/17 11:19 PT 39.9 SECONDS (9.7-12.2) H* D 04/01/17 07:06 INR 3.4 04/01/17 07:06 APTT 38 SECONDS (21-34) H 04/01/17 07:06 - Additional Findings Additional findings: - Constitutional Appears: Well, Non-toxic, No Acute Distress - Head Exam Head Exam: ATRAUMATIC, NORMOCEPHALIC - Eye Exam Eye Exam: Normal appearance - Respiratory Exam Respiratory Exam: Clear to Ausculation Bilateral, NORMAL BREATHING PATTERN. absent: Accessory Muscle Use - Cardiovascular Exam Cardiovascular Exam: RRR, +S1, +S2. absent: Rubs, Murmur - GI/Abdominal Exam GI & Abdominal Exam: Soft. absent: Tenderness. Surgical site wound in right inguinal region. Clean, dry, no dehiscence. - Extremities Exam Additional comments: B/L AKA. Surgical Site clean and dry w/o erythema. 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 He underwent bilateral thrombectomy on 02/05/17. The status of his bilateral lower legs worsened subsequently ( formation of bullae and sloughing of skin and these extremities cool to the touch and intense pain with minor palpation). Cultures from the bilateral lower legs revealed Serratia marcescens and Enterococcus faecalis. Blood Culture was positive for Bacillus species and Urine Cultures positive for Enterococcus faecalis. Because of the likelihood of sepsis, family decided on amputation. 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 Family has completed Medicaid Application and awaiting approval for TRENT placement. Plan: PAD S/P Bilateral AKA 03/04/17 Vascular Surgery (Dr. Kaur) on the case help appreciated Cardiology (Dr. Brown) on the case help appreciated Daily Coumadin Goal INR is 2.5 to 3.[address] Brown Advised dietary and nurse patient will need to be on a vitamin K free- dark leafy greens free diet Malone removed yesterday Morphine 2 mg IV Q4H PRN Severe Pain Gabapentin 300 mg PO 3x/day PT recommends no OOB to chair yet due to core instability. Cough CXR 03/22/17: Interval appearance of heterogeneous opacity at the right lung base may represent pneumonia or atelectasis. Otherwise no interval change. Increase opacity noted when compared to 02/20/17 CXR Promethazine PRN Hx Malignant HTN (Stable) B/P running on the low end, continue to monitor. Patient is asymptomatic Held Metoprolol 100 mg PO Q12H in light of hypotension on 03/17; given fluid bolus on 03/17 Cardizem 360 mg PO 1x/day Cozaar 25 mg PO 1x/day Hx Sepsis--Resolved Secondary to gangrenous bilateral legs, +blood culture code sepsis called on 03/03 Urine Culture (03/03/17): Enterococcus Faecalis-->sensitive to Vancomycin and PCN Blood cultures (03/03/17): No growth at 5 days Urine culture (03/02/17): Enterococcus Faecalis Blood culture (03/02/17): Bacillus species Blood Culture (03/02/17): no growth after 5 days Leg Right and Left (03/02/17): Serratia Marcescens and Enterococcus Faecalis Repeat Blood Culture (03/07): Negative at 5 days Repeat Urine Culture (04/06): NO growth Patient was treated with Ampicillin and Rocephin through 03/11/17. He was switched to Ciprofloxicin on 03/11/17 and this was discontinued by ID on 03/13/17. Hx Atrial Fibrillation (Stable) Amiodarone 200 mg PO 2x/day held Metoprolol 100 mg PO Q12H secondary to hypotension Cardizem 360 mg PO 1x/day 03/28 INR 1.7, 5mg Coumadin overnight INR 3.9 today. Coumadin held today. Hx Seizure Disorder Because of Elevated LFTs his Dilantin was discontinued and Neurology Dr. Onesimo Hogan started him on Keppra 500 mg PO 2x/day Hx Multiple CVAs Crestor is being held considering the elevated LFTs and that his Lipid Profile is currently WNL. Repeat Lipid Panel in 1 month (Mid April) to see where we are with this. ASA 81 mg PO 1x/day Keep the blood pressure under control Hx Elevated LFTs-->resolved Could have been secondary to the Dilantin and the Crestor. The Crestor is being held and the Dilantin was switched over to Keppra. The LFTs have normalized as of 03/14/17 Hx Elevated WBC-->resolved Normalized Likely secondary to the Sepsis as mentioned above NO fevers Vitals are stable Hx Enlarged Prostate and Urinary Retention Proscar 5 mg PO 1x/day Flomax 0.4 mg PO 1x/day Patient had urinary retention on 03/20-->patient had urinary straight cath Anemia Likely Secondary to Chronic Disease HgB/Hct are stable Prophylaxis Colace 100 mg PO 2x/day Pepcid 20 mg PO 1x/day Bacid 1 cap PO 2x/day with STOP on 04/14/17 Zofran 4 mg IV Q6H PRN N/V DVT Prophylaxis: he is on coumadin (held today) Disposition: Patient is pending [employer] approval. Daughter requests for [facility] for for TRENT/Acute Rehab. She has been presented with several options by major case detective, Patient seen, discussed, and reviewed with Attending (Dr. Skinner) Kat Qureshi, PGY-1 <Alexandra Skinner V - Last Filed: 04/01/17 21:15> Objective - Vital Signs/Intake and Output Vital Signs (last 24 hours): Temp Pulse Resp BP Pulse Ox 97.9 F 55 L 20 113/53 L 96 04/01/17 15:00 04/01/17 15:00 04/01/17 15:00 04/01/17 15:00 04/01/17 15:00 Intake and Output: 04/01/17 04/02/17 18:59 06:59 Intake Total 240 Output Total 500 Balance -260 - Medications Medications: Current Medications Amiodarone HCl (Cordarone) 200 mg PO BID [facility] Last Admin: 04/01/17 17:46 Dose: 200 mg Aspirin (Aspirin Chewable) 81 mg PO DAILY [facility] Last Admin: 04/01/17 10:01 Dose: 81 mg Diltiazem HCl (Cardizem Cd) 360 mg PO DAILY [facility] Last Admin: 04/01/17 10:03 Dose: 360 mg Docusate Sodium (Colace) 100 mg PO BID [facility] Last Admin: 04/01/17 17:45 Dose: 100 mg Famotidine (Pepcid) 20 mg PO DAILY [facility] Last Admin: 04/01/17 10:01 Dose: 20 mg Finasteride (Proscar) 5 mg PO DAILY [facility] Last Admin: 04/01/17 10:01 Dose: 5 mg Gabapentin (Neurontin) 300 mg PO TID [facility] Last Admin: 04/01/17 17:45 Dose: 300 mg Lactobacillus Acidophilus (Bacid Acidophilus) 1 cap PO BID [facility] Stop: 04/14/17 18:00 Last Admin: 04/01/17 19:00 Dose: 1 cap Levetiracetam (Keppra) 500 mg PO BID [facility] Last Admin: 04/01/17 17:46 Dose: 500 mg Losartan Potassium (Cozaar) 25 mg PO DAILY [facility] Last Admin: 04/01/17 10:04 Dose: 25 mg Ondansetron HCl (Zofran Inj) 4 mg IVP Q6 PRN PRN Reason: Nausea/Vomiting Promethazine HCl/Codeine (Phenergan/Codeine Oral Syrup) 5 ml PO Q4 PRN PRN Reason: Cough Rosuvastatin Calcium (Crestor) 5 mg PO HS [facility] Last Admin: 03/31/17 22:16 Dose: 5 mg Tamsulosin HCl (Flomax) 0.4 mg PO DAILY [facility] Last Admin: 04/01/17 10:01 Dose: 0.4 mg Warfarin Sodium (Coumadin) 1 mg PO 1800 [facility] Stop: 04/02/17 19:10 - Labs Labs: 04/01/17 11:19 04/01/17 11:19 PT 39.9 SECONDS (9.7-12.2) H* D 04/01/17 07:06 INR 3.4 04/01/17 07:06 APTT 38 SECONDS (21-34) H 04/01/17 07:06 Attending/Attestation - Attestation I have personally seen and examined this patient.: Yes I have fully participated in the care of the patient.: Yes I have reviewed all pertinent clinical information, including history, physical exam and plan: Yes Notes (Text): Patient seen, examined, and case discussed with day-time resident. Patient seen during morning rounds. Patient denies acute complaints. Patient had mehran removed from AKA sites 03/31 by vascular surgery. INR: 3.4; ordered for Coumadin 1mg PO tonight; f/u INR in AM. Spoke with case management, will look into status of patient's medicaid [place]. patient had bowel movement today. Assessment/Plan 1). PAD S/P Bilateral AKA 03/04/17 * Vascular Surgery (Dr. Kaur) on the case help appreciated * Cardiology (Dr. Brown) on the case help appreciated * Coumadin 1mg PO tonight, INR: 3.4 * Goal INR is 2.5 to 3.[address] Brown * Malone to Surgical Site to removed when Ok with Vascular Surgery Dr. Kaur -->mehran removed 03/31/17 * Gabapentin 300 mg PO 3x/day 2). Hx Malignant HTN * B/P running on the low end, continue to monitor. Patient is asymptomatic * Held Metoprolol 100 mg PO Q12H in light of hypotension on 03/17; given fluid bolus on 03/17 * Cardizem 360 mg PO 1x/day * Cozaar 25 mg PO 1x/day 3). Hx Sepsis--Resolved * Secondary to gangrenous bilateral legs, +blood culture code sepsis called on * Urine Culture (03/03/17): Enterococcus Faecalis-->sensitive to Vancomycin and PCN * Blood cultures (03/03/17): No growth at 5 days * Urine culture (03/02/17): Enterococcus Faecalis * Blood culture (03/02/17): Bacillus species * Blood Culture (03/02/17): no growth after 5 days * Leg Right and Left (03/02/17): Serratia Marcescens and Enterococcus Faecalis * Repeat Blood Culture (03/07): Negative at 5 days * Repeat Urine Culture (04/06): NO growth * Patient was treated with Ampicillin and Rocephin through 03/11/17. He was switched to Ciprofloxicin on 03/11/17 and this was discontinued by ID on 03/13/17. 4). Hx Atrial Fibrillation * Amiodarone 200 mg PO 2x/day * held Metoprolol 100 mg PO Q12H secondary to hypotension * Cardizem 360 mg PO 1x/day * therapuetic 5). Hx Seizure Disorder * Because of Elevated LFTs his Dilantin was discontinued and Neurology Dr. Onesimo Hogan started him on Keppra 500 mg PO 2x/day 6). Hx Multiple CVAs * Crestor is being held considering the elevated LFTs and that his Lipid Profile is currently WNL. * Repeat Lipid Panel in 1 month to see where we are with this. * ASA 81 mg PO 1x/day * Keep the blood pressure under control 7). Hx Elevated LFTs-->resolved * Could have been secondary to the Dilantin and the Crestor. The Crestor is being held and the Dilantin was switched over to Keppra. * The LFTs have normalized as of 03/14/17 8). Hx Elevated WBC-->resolved * Normalized * Likely secondary to the Sepsis as mentioned above * NO fevers * Vitals are stable 9). Hx Enlarged Prostate and Urinary Retention * Proscar 5 mg PO 1x/day * Flomax 0.4 mg PO 1x/day * Patient had urinary retention on 03/20-->patient had urinary straight cath 10). Anemia Likely Secondary to Chronic Disease * HgB/Hct are stable 11). Prophylaxis * Colace 100 mg PO 2x/day * Pepcid 20 mg PO 1x/day * Zofran 4 mg IV Q6H PRN N/V * DVT Prophylaxis: he is on coumadin Disposition: Patient is pending [employer] approval. Daughter requests for [facility] for for TRENT/Acute Rehab.
[2017-04-02 08:27] LABS: INR 2.7
[2017-04-02] MEDS: diltiaZEM 180 mg/24 Hours CD Cap PO SCH (11:10)
[2017-04-02] MEDS: Lactobacillus Acidophilus 500 MU Cap PO SCH ×2 (11:10→18:06)
--- NOTE | 2017-04-02 13:35 | CP.PCM.PN ---
<Kat Qureshi - Last Filed: 04/02/17 13:32> Subjective - Date & Time of Evaluation Date of Evaluation: 04/02/17 Time of Evaluation: 13:32 - Subjective Subjective: Patient has been seen and examined. No overnight events reported. Denies fever , chills, cp, sob, n/v/d, constipaton, abdominal pain. Complains of slight pain on right lower extremity surgical site. Objective - Vital Signs/Intake and Output Vital Signs (last 24 hours): Temp Pulse Resp BP Pulse Ox 98.3 F 64 20 136/65 96 04/02/17 08:10 04/02/17 08:10 04/02/17 08:10 04/02/17 08:10 04/02/17 08:10 Intake and Output: 04/02/17 04/02/17 06:59 18:59 Intake Total 240 Output Total 300 Balance -60 - Medications Medications: Current Medications Amiodarone HCl (Cordarone) 200 mg PO BID [facility] Last Admin: 04/02/17 11:09 Dose: 200 mg Aspirin (Aspirin Chewable) 81 mg PO DAILY [facility] Last Admin: 04/02/17 11:09 Dose: 81 mg Diltiazem HCl (Cardizem Cd) 360 mg PO DAILY [facility] Last Admin: 04/02/17 11:10 Dose: 360 mg Docusate Sodium (Colace) 100 mg PO BID [facility] Last Admin: 04/02/17 11:09 Dose: 100 mg Famotidine (Pepcid) 20 mg PO DAILY [facility] Last Admin: 04/02/17 11:10 Dose: 20 mg Finasteride (Proscar) 5 mg PO DAILY [facility] Last Admin: 04/02/17 11:09 Dose: 5 mg Gabapentin (Neurontin) 300 mg PO TID [facility] Last Admin: 04/02/17 11:09 Dose: 300 mg Lactobacillus Acidophilus (Bacid Acidophilus) 1 cap PO BID [facility] Stop: 04/14/17 18:00 Last Admin: 04/02/17 11:10 Dose: 1 cap Levetiracetam (Keppra) 500 mg PO BID [facility] Last Admin: 04/02/17 11:09 Dose: 500 mg Ondansetron HCl (Zofran Inj) 4 mg IVP Q6 PRN PRN Reason: Nausea/Vomiting Promethazine HCl/Codeine (Phenergan/Codeine Oral Syrup) 5 ml PO Q4 PRN PRN Reason: Cough Rosuvastatin Calcium (Crestor) 5 mg PO HS [facility] Last Admin: 04/01/17 21:29 Dose: 5 mg Tamsulosin HCl (Flomax) 0.4 mg PO DAILY [facility] Last Admin: 04/02/17 11:10 Dose: 0.4 mg Warfarin Sodium (Coumadin) 1 mg PO 1800 [facility] Stop: 04/02/17 19:10 Warfarin Sodium (Coumadin) 3 mg PO 1800 [facility] Stop: 04/02/17 18:01 - Labs Labs: 04/01/17 11:19 04/01/17 11:19 PT 31.1 SECONDS (9.7-12.2) H* D 04/02/17 08:09 INR 2.7 D 04/02/17 08:09 APTT 35 SECONDS (21-34) H 04/02/17 08:09 - Additional Findings Additional findings: - Constitutional Appears: Well, Non-toxic, No Acute Distress - Head Exam Head Exam: ATRAUMATIC, NORMOCEPHALIC - Eye Exam Eye Exam: Normal appearance - Respiratory Exam Respiratory Exam: Clear to Ausculation Bilateral, NORMAL BREATHING PATTERN. absent: Accessory Muscle Use - Cardiovascular Exam Cardiovascular Exam: RRR, +S1, +S2. absent: Rubs, Murmur - GI/Abdominal Exam GI & Abdominal Exam: Soft. absent: Tenderness. Surgical site wound in right inguinal region. Clean, dry, no dehiscence. - Extremities Exam Additional comments: B/L AKA. Surgical Site clean and dry w/o erythema. 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 He underwent bilateral thrombectomy on 02/05/17. The status of his bilateral lower legs worsened subsequently ( formation of bullae and sloughing of skin and these extremities cool to the touch and intense pain with minor palpation). Cultures from the bilateral lower legs revealed Serratia marcescens and Enterococcus faecalis. Blood Culture was positive for Bacillus species and Urine Cultures positive for Enterococcus faecalis. Because of the likelihood of sepsis, family decided on amputation. 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 Family has completed Medicaid Application and awaiting approval for TRENT placement. Plan: PAD S/P Bilateral AKA 03/04/17 Vascular Surgery (Dr. Kaur) on the case help appreciated Cardiology (Dr. Brown) on the case help appreciated Daily Coumadin Goal INR is 2.5 to 3.[address] Brown Advised dietary and nurse patient will need to be on a vitamin K free- dark leafy greens free diet [place] removed yesterday Morphine 2 mg IV Q4H PRN Severe Pain Gabapentin 300 mg PO 3x/day PT recommends no OOB to chair yet due to core instability. Cough CXR 03/22/17: Interval appearance of heterogeneous opacity at the right lung base may represent pneumonia or atelectasis. Otherwise no interval change. Increase opacity noted when compared to 02/20/17 CXR Promethazine PRN Hx Malignant HTN (Stable) B/P running on the low end, continue to monitor. Patient is asymptomatic Held Metoprolol 100 mg PO Q12H in light of hypotension on 03/17; given fluid bolus on 03/17 Cardizem 360 mg PO 1x/day Cozaar 25 mg PO 1x/day Hx Sepsis--Resolved Secondary to gangrenous bilateral legs, +blood culture code sepsis called on 03/03 Urine Culture (03/03/17): Enterococcus Faecalis-->sensitive to Vancomycin and PCN Blood cultures (03/03/17): No growth at 5 days Urine culture (03/02/17): Enterococcus Faecalis Blood culture (03/02/17): Bacillus species Blood Culture (03/02/17): no growth after 5 days Leg Right and Left (03/02/17): Serratia Marcescens and Enterococcus Faecalis Repeat Blood Culture (03/07): Negative at 5 days Repeat Urine Culture (04/06): NO growth Patient was treated with Ampicillin and Rocephin through 03/11/17. He was switched to Ciprofloxicin on 03/11/17 and this was discontinued by ID on 03/13/17. Hx Atrial Fibrillation (Stable) Amiodarone 200 mg PO 2x/day held Metoprolol 100 mg PO Q12H secondary to hypotension Cardizem 360 mg PO 1x/day 03/28 INR 1.7, 5mg Coumadin overnight INR 2.7 today. Coumadin today at 6:00 pm Hx Seizure Disorder Because of Elevated LFTs his Dilantin was discontinued and Neurology Dr. Onesimo Hogan started him on Keppra 500 mg PO 2x/day Hx Multiple CVAs Crestor is being held considering the elevated LFTs and that his Lipid Profile is currently WNL. Repeat Lipid Panel in 1 month (Mid April) to see where we are with this. ASA 81 mg PO 1x/day Keep the blood pressure under control Hx Elevated LFTs-->resolved Could have been secondary to the Dilantin and the Crestor. The Crestor is being held and the Dilantin was switched over to Keppra. The LFTs have normalized as of 03/14/17 Hx Elevated WBC-->resolved Normalized Likely secondary to the Sepsis as mentioned above NO fevers Vitals are stable Hx Enlarged Prostate and Urinary Retention Proscar 5 mg PO 1x/day Flomax 0.4 mg PO 1x/day Patient had urinary retention on 03/20-->patient had urinary straight cath Anemia Likely Secondary to Chronic Disease HgB/Hct are stable Prophylaxis Colace 100 mg PO 2x/day Pepcid 20 mg PO 1x/day Bacid 1 cap PO 2x/day with STOP on 04/14/17 Zofran 4 mg IV Q6H PRN N/V DVT Prophylaxis: he is on coumadin (held today) Disposition: Patient is pending [employer] approval. Daughter requests for [facility] for for TRENT/Acute Rehab. She has been presented with several options by machine adjuster leader case trim, Patient seen, discussed, and reviewed with Attending (Dr. Skinner) Kat Qureshi, PGY-1 <Alexandra Skinner V - Last Filed: 04/04/17 23:05> Objective - Vital Signs/Intake and Output Vital Signs (last 24 hours): Temp Pulse Resp BP Pulse Ox 98 F 64 20 122/72 98 04/04/17 15:00 04/04/17 15:00 04/04/17 15:00 04/04/17 15:00 04/04/17 15:00 Intake and Output: 04/04/17 04/05/17 18:59 06:59 Intake Total 480 300 Output Total 800 Balance -320 300 - Medications Medications: Current Medications Amiodarone HCl (Cordarone) 200 mg PO BID [facility] Last Admin: 04/04/17 18:04 Dose: 200 mg Aspirin (Aspirin Chewable) 81 mg PO DAILY [facility] Last Admin: 04/04/17 11:12 Dose: 81 mg Bacitracin (Bacitracin) 0 gm TOP DAILY [facility] Diltiazem HCl (Cardizem Cd) 360 mg PO DAILY [facility] Last Admin: 04/04/17 11:13 Dose: 360 mg Docusate Sodium (Colace) 100 mg PO BID [facility] Last Admin: 04/04/17 18:05 Dose: 100 mg Finasteride (Proscar) 5 mg PO DAILY [facility] Last Admin: 04/04/17 11:13 Dose: 5 mg Gabapentin (Neurontin) 300 mg PO TID [facility] Last Admin: 04/04/17 18:03 Dose: 300 mg Lactobacillus Acidophilus (Bacid Acidophilus) 1 cap PO BID [facility] Stop: 04/14/17 18:00 Last Admin: 04/04/17 18:05 Dose: 1 cap Levetiracetam (Keppra) 500 mg PO BID [facility] Last Admin: 04/04/17 18:04 Dose: 500 mg Promethazine HCl/Codeine (Phenergan/Codeine Oral Syrup) 5 ml PO Q4 PRN PRN Reason: Cough Rosuvastatin Calcium (Crestor) 5 mg PO HS [facility] Last Admin: 04/04/17 21:45 Dose: 5 mg Tamsulosin HCl (Flomax) 0.4 mg PO DAILY [facility] Last Admin: 04/04/17 11:12 Dose: 0.4 mg Vitamin A (Vitamin A & D Oint Ud Foilpak) 1 ea TOP BID [facility] Last Admin: 04/04/17 18:04 Dose: 1 ea - Labs Labs: 04/03/17 07:03 04/03/17 07:03 PT 21.2 SECONDS (9.7-12.2) H 04/04/17 09:31 INR 1.8 04/04/17 09:31 APTT 32 SECONDS (21-34) 04/04/17 09:31 Attending/Attestation - Attestation I have personally seen and examined this patient.: Yes I have fully participated in the care of the patient.: Yes I have reviewed all pertinent clinical information, including history, physical exam and plan: Yes Notes (Text): This is late computer entry for 04/02/17. Patient seen, examined, and case discussed with day-time resident. Patient seen during morning rounds. Patient denies acute complaints. Patient had neo removed from AKA sites 03/31 by vascular surgery. Monitor INR and give Coumadin accordingly Assessment/Plan 1). PAD S/P Bilateral AKA 03/04/17 * Vascular Surgery (Dr. Kaur) on the case help appreciated * Cardiology (Dr. Brown) on the case help appreciated * Coumadin 1mg PO tonight, INR: 3.4 * Goal INR is 2.5 to 3.[address] Brown * Neo to Surgical Site to removed when Ok with Vascular Surgery Dr. Kaur -->neo removed 03/31/17 * Gabapentin 300 mg PO 3x/day 2). Hx Malignant HTN * B/P running on the low end, continue to monitor. Patient is asymptomatic * Held Metoprolol 100 mg PO Q12H in light of hypotension on 03/17; given fluid bolus on 03/17 * Cardizem 360 mg PO 1x/day * Cozaar 25 mg PO 1x/day 3). Hx Sepsis--Resolved * Secondary to gangrenous bilateral legs, +blood culture code sepsis called on * Urine Culture (03/03/17): Enterococcus Faecalis-->sensitive to Vancomycin and PCN * Blood cultures (03/03/17): No growth at 5 days * Urine culture (03/02/17): Enterococcus Faecalis * Blood culture (03/02/17): Bacillus species * Blood Culture (03/02/17): no growth after 5 days * Leg Right and Left (03/02/17): Serratia Marcescens and Enterococcus Faecalis * Repeat Blood Culture (03/07): Negative at 5 days * Repeat Urine Culture (04/06): NO growth * Patient was treated with Ampicillin and Rocephin through 03/11/17. He was switched to Ciprofloxicin on 03/11/17 and this was discontinued by ID on 03/13/17. 4). Hx Atrial Fibrillation * Amiodarone 200 mg PO 2x/day * held Metoprolol 100 mg PO Q12H secondary to hypotension * Cardizem 360 mg PO 1x/day * Monitor for therapuetic INR 5). Hx Seizure Disorder * Because of Elevated LFTs his Dilantin was discontinued and Neurology Dr. Onesimo Hogan started him on Keppra 500 mg PO 2x/day 6). Hx Multiple CVAs * Crestor is being held considering the elevated LFTs and that his Lipid Profile is currently WNL. * Repeat Lipid Panel in 1 month to see where we are with this. * ASA 81 mg PO 1x/day * Keep the blood pressure under control 7). Hx Elevated LFTs-->resolved * Could have been secondary to the Dilantin and the Crestor. The Crestor is being held and the Dilantin was switched over to Keppra. * The LFTs have normalized as of 03/14/17 8). Hx Elevated WBC-->resolved * Normalized * Likely secondary to the Sepsis as mentioned above * NO fevers * Vitals are stable 9). Hx Enlarged Prostate and Urinary Retention * Proscar 5 mg PO 1x/day * Flomax 0.4 mg PO 1x/day * Patient had urinary retention on 03/20-->patient had urinary straight cath 10). Anemia Likely Secondary to Chronic Disease * HgB/Hct are stable 11). Prophylaxis * Colace 100 mg PO 2x/day * Pepcid 20 mg PO 1x/day * Zofran 4 mg IV Q6H PRN N/V * DVT Prophylaxis: he is on coumadin Disposition: Patient is pending [employer] approval. Daughter requests for [facility] for for [facility]/Acute Rehab.
[2017-04-03 07:39] LABS: BASO % 0.3 % (0.0-2.0); EOS # 0.2 K/uL (0.0-0.7); EOS % 2.6 % (0.0-4.0); HEMATOCRIT 33.5 % (35.0-51.0); LYMPH # 1.7 K/uL (1.0-4.3); MEAN CELL VOLUME 79.5 fL (80.0-94.0); MEAN CORPUSCULAR HEMOGLOBIN 26.8 pg (27.0-31.0); MEAN CORPUSCULAR HGB CONC 33.6 g/dL (33.0-37.0); MEAN PLATELET VOLUME 7.7 fL (7.2-11.7); MONO # 0.4 K/uL (0.0-0.8); MONO % 6.5 % (0.0-10.0); NRBC % 0.1 % (0.0-2.0); RED CELL DISTRIBUTION WIDTH 16.3 % (11.5-14.5); WHITE BLOOD COUNT 6.1 K/uL (4.8-10.8)
[2017-04-03 08:07] LABS: CHLORIDE 101 mmol/L (98-107); SODIUM 133 mmol/L (132-148)
[2017-04-03 08:08] LABS: POTASSIUM 3.6 mmol/L (3.6-5.2)
[2017-04-03 08:10] LABS: ALB/GLOB RATIO 1.1 (1.0-2.1); ALKALINE PHOSPHATASE 115 U/L (38-126); ALT/SGPT 29 U/L (21-72); AST/SGOT 17 U/L (17-59); BILIRUBIN,TOTAL 0.6 mg/dL (0.2-1.3); BLOOD UREA NITROGEN 12 mg/dL (9-20); CARBON DIOXIDE 25 mmol/L (22-30); GFR AFRICAN-AMERICAN > 60; GLUCOSE,RANDOM 79 mg/dL (75-110); PHOSPHOROUS 3.9 mg/dL (2.5-4.5); TOTAL PROTEIN 5.2 g/dL (6.3-8.3)
[2017-04-03 08:11] LABS: CALCIUM 8.1 mg/dl (8.6-10.4); MAGNESIUM 1.7 mg/dL (1.6-2.3)
[2017-04-03] MEDS: Lactobacillus Acidophilus 500 MU Cap PO SCH ×2 (11:08→17:17)
[2017-04-03] MEDS: diltiaZEM 180 mg/24 Hours CD Cap PO SCH (11:08)
--- NOTE | 2017-04-03 22:11 | CP.PCM.PN ---
<Kat Qureshi - Last Filed: 04/03/17 22:07> Subjective - Date & Time of Evaluation Date of Evaluation: 04/03/17 Time of Evaluation: 10:45 - Subjective Subjective: Patient has been seen and examined. No overnight events reported. He reports slight right neck pain (behind the ear). He denies, fever, chills, SOB, chest pain, abdominal pain, pain at surgical site, changes in bowel habits, or urinary symptoms. Patient did not get his ordered coumadin dose last night. Night resident gave him Coumadin 1. Objective - Vital Signs/Intake and Output Vital Signs (last 24 hours): Temp Pulse Resp BP Pulse Ox 98 F 60 20 155/66 H 99 04/03/17 16:00 04/03/17 16:45 04/03/17 16:00 04/03/17 16:45 04/03/17 16:45 Intake and Output: 04/03/17 04/04/17 18:59 06:59 Intake Total 500 Balance 500 - Medications Medications: Current Medications Amiodarone HCl (Cordarone) 200 mg PO BID [facility] Last Admin: 04/03/17 17:18 Dose: 200 mg Aspirin (Aspirin Chewable) 81 mg PO DAILY [facility] Last Admin: 04/03/17 11:06 Dose: 81 mg Diltiazem HCl (Cardizem Cd) 360 mg PO DAILY [facility] Last Admin: 04/03/17 11:08 Dose: 360 mg Docusate Sodium (Colace) 100 mg PO BID [facility] Last Admin: 04/03/17 17:18 Dose: 100 mg Finasteride (Proscar) 5 mg PO DAILY [facility] Last Admin: 04/03/17 11:07 Dose: 5 mg Gabapentin (Neurontin) 300 mg PO TID [facility] Last Admin: 04/03/17 17:18 Dose: 300 mg Lactobacillus Acidophilus (Bacid Acidophilus) 1 cap PO BID [facility] Stop: 04/14/17 18:00 Last Admin: 04/03/17 17:17 Dose: 1 cap Levetiracetam (Keppra) 500 mg PO BID [facility] Last Admin: 04/03/17 17:18 Dose: 500 mg Promethazine HCl/Codeine (Phenergan/Codeine Oral Syrup) 5 ml PO Q4 PRN PRN Reason: Cough Rosuvastatin Calcium (Crestor) 5 mg PO HS [facility] Last Admin: 04/03/17 21:38 Dose: 5 mg Tamsulosin HCl (Flomax) 0.4 mg PO DAILY [facility] Last Admin: 04/03/17 11:06 Dose: 0.4 mg - Labs Labs: 04/03/17 07:03 04/03/17 07:03 PT 22.9 SECONDS (9.7-12.2) H D 04/03/17 07:03 INR 2.0 D 04/03/17 07:03 APTT 32 SECONDS (21-34) 04/03/17 07:03 - Additional Findings Additional findings: - Constitutional Appears: Well, Non-toxic, No Acute Distress - Head Exam Head Exam: ATRAUMATIC, NORMOCEPHALIC, Proximal Sternocleidomastoid muscle tender to palpation. - Eye Exam Eye Exam: Normal appearance - Respiratory Exam Respiratory Exam: Clear to Ausculation Bilateral, NORMAL BREATHING PATTERN. absent: Accessory Muscle Use - Cardiovascular Exam Cardiovascular Exam: RRR, +S1, +S2. absent: Rubs, Murmur - GI/Abdominal Exam GI & Abdominal Exam: Soft. absent: Tenderness. Surgical site wound in right inguinal region. Clean, dry, no dehiscence. - Extremities Exam Additional comments: B/L AKA. Surgical Site clean and dry w/o erythema. 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 He underwent bilateral thrombectomy on 02/05/17. The status of his bilateral lower legs worsened subsequently ( formation of bullae and sloughing of skin and these extremities cool to the touch and intense pain with minor palpation). Cultures from the bilateral lower legs revealed Serratia marcescens and Enterococcus faecalis. Blood Culture was positive for Bacillus species and Urine Cultures positive for Enterococcus faecalis. Because of the likelihood of sepsis, family decided on amputation. 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 Family has completed Medicaid Application and awaiting approval for TRENT placement. Plan: PAD S/P Bilateral AKA 03/04/17 Vascular Surgery (Dr. Kaur) on the case help appreciated Cardiology (Dr. Brown) on the case help appreciated Daily Coumadin Goal INR is 2.5 to 3.[address] Brown Advised dietary and nurse patient will need to be on a vitamin K free- dark leafy greens free diet Neo removed Morphine 2 mg IV Q4H PRN Severe Pain Gabapentin 300 mg PO 3x/day PT recommends no OOB to chair yet due to core instability. Cough CXR 03/22/17: Interval appearance of heterogeneous opacity at the right lung base may represent pneumonia or atelectasis. Otherwise no interval change. Increase opacity noted when compared to 02/20/17 CXR Promethazine PRN Hx Malignant HTN (Stable) B/P running on the low end, continue to monitor. Patient is asymptomatic Held Metoprolol 100 mg PO Q12H in light of hypotension on 03/17; given fluid bolus on 03/17 Cardizem 360 mg PO 1x/day Cozaar 25 mg PO 1x/day Hx Sepsis--Resolved Secondary to gangrenous bilateral legs, +blood culture code sepsis called on 03/03 Urine Culture (03/03/17): Enterococcus Faecalis-->sensitive to Vancomycin and PCN Blood cultures (03/03/17): No growth at 5 days Urine culture (03/02/17): Enterococcus Faecalis Blood culture (03/02/17): Bacillus species Blood Culture (03/02/17): no growth after 5 days Leg Right and Left (03/02/17): Serratia Marcescens and Enterococcus Faecalis Repeat Blood Culture (03/07): Negative at 5 days Repeat Urine Culture (04/06): NO growth Patient was treated with Ampicillin and Rocephin through 03/11/17. He was switched to Ciprofloxicin on 03/11/17 and this was discontinued by ID on 03/13/17. Hx Atrial Fibrillation (Stable) Amiodarone 200 mg PO 2x/day held Metoprolol 100 mg PO Q12H secondary to hypotension Cardizem 360 mg PO 1x/day 03/28 INR 1.7, 5mg Coumadin overnight INR 2.0 today. Coumadin 5 today at 6:00 pm Hx Seizure Disorder Because of Elevated LFTs his Dilantin was discontinued and Neurology Dr. Onesimo Hogan started him on Keppra 500 mg PO 2x/day Hx Multiple CVAs Crestor is being held considering the elevated LFTs and that his Lipid Profile is currently WNL. Repeat Lipid Panel in 1 month (Mid April) to see where we are with this. ASA 81 mg PO 1x/day Keep the blood pressure under control Hx Elevated LFTs-->resolved Could have been secondary to the Dilantin and the Crestor. The Crestor is being held and the Dilantin was switched over to Keppra. The LFTs have normalized as of 03/14/17 Hx Elevated WBC-->resolved Normalized Likely secondary to the Sepsis as mentioned above NO fevers Vitals are stable Hx Enlarged Prostate and Urinary Retention Proscar 5 mg PO 1x/day Flomax 0.4 mg PO 1x/day Patient had urinary retention on 03/20-->patient had urinary straight cath Anemia Likely Secondary to Chronic Disease HgB/Hct are stable Prophylaxis Colace 100 mg PO 2x/day Pepcid 20 mg PO 1x/day Bacid 1 cap PO 2x/day with STOP on 04/14/17 Zofran 4 mg IV Q6H PRN N/V DVT Prophylaxis: he is on coumadin (held today) Disposition: Patient is pending [employer] approval. Daughter requests for [facility] for [facility]/Acute Rehab. She has been presented with several options by continuous pillowcase cutter, Patient seen, discussed, and reviewed with Attending (Dr. Skinner) Kat Qureshi, PGY-1 <Alexandra Skinner V - Last Filed: 04/04/17 23:07> Objective - Vital Signs/Intake and Output Vital Signs (last 24 hours): Temp Pulse Resp BP Pulse Ox 98 F 64 20 122/72 98 04/04/17 15:00 04/04/17 15:00 04/04/17 15:00 04/04/17 15:00 04/04/17 15:00 Intake and Output: 04/04/17 04/05/17 18:59 06:59 Intake Total 480 300 Output Total 800 Balance -320 300 - Medications Medications: Current Medications Amiodarone HCl (Cordarone) 200 mg PO BID [facility] Last Admin: 04/04/17 18:04 Dose: 200 mg Aspirin (Aspirin Chewable) 81 mg PO DAILY [facility] Last Admin: 04/04/17 11:12 Dose: 81 mg Bacitracin (Bacitracin) 0 gm TOP DAILY [facility] Diltiazem HCl (Cardizem Cd) 360 mg PO DAILY [facility] Last Admin: 04/04/17 11:13 Dose: 360 mg Docusate Sodium (Colace) 100 mg PO BID [facility] Last Admin: 04/04/17 18:05 Dose: 100 mg Finasteride (Proscar) 5 mg PO DAILY [facility] Last Admin: 04/04/17 11:13 Dose: 5 mg Gabapentin (Neurontin) 300 mg PO TID [facility] Last Admin: 04/04/17 18:03 Dose: 300 mg Lactobacillus Acidophilus (Bacid Acidophilus) 1 cap PO BID [facility] Stop: 04/14/17 18:00 Last Admin: 04/04/17 18:05 Dose: 1 cap Levetiracetam (Keppra) 500 mg PO BID [facility] Last Admin: 04/04/17 18:04 Dose: 500 mg Promethazine HCl/Codeine (Phenergan/Codeine Oral Syrup) 5 ml PO Q4 PRN PRN Reason: Cough Rosuvastatin Calcium (Crestor) 5 mg PO HS [facility] Last Admin: 04/04/17 21:45 Dose: 5 mg Tamsulosin HCl (Flomax) 0.4 mg PO DAILY [facility] Last Admin: 04/04/17 11:12 Dose: 0.4 mg Vitamin A (Vitamin A & D Oint Ud Foilpak) 1 ea TOP BID [facility] Last Admin: 04/04/17 18:04 Dose: 1 ea - Labs Labs: 04/03/17 07:03 04/03/17 07:03 PT 21.2 SECONDS (9.7-12.2) H 04/04/17 09:31 INR 1.8 04/04/17 09:31 APTT 32 SECONDS (21-34) 04/04/17 09:31 Attending/Attestation - Attestation I have personally seen and examined this patient.: Yes I have fully participated in the care of the patient.: Yes I have reviewed all pertinent clinical information, including history, physical exam and plan: Yes Notes (Text): This is late computer entry for 04/03/17. Patient seen, examined, and case discussed with day-time resident. Patient seen during morning rounds. Patient denies acute complaints. Patient did not receive Coumadin the night prior. Patient ordered for Coumadin 5mg PO X1. INR goal: 2.5 to 3.5 Assessment/Plan 1). PAD S/P Bilateral AKA 03/04/17 * Vascular Surgery (Dr. Kaur) on the case help appreciated * Cardiology (Dr. Brown) on the case help appreciated * Goal INR is 2.5 to 3.[address] Brown * Odd to Surgical Site to removed when Ok with Vascular Surgery Dr. Kaur -->neo removed 03/31/17 * Gabapentin 300 mg PO 3x/day 2). Hx Malignant HTN * B/P running on the low end, continue to monitor. Patient is asymptomatic * Held Metoprolol 100 mg PO Q12H in light of hypotension on 03/17; given fluid bolus on 03/17 * Cardizem 360 mg PO 1x/day * Cozaar 25 mg PO 1x/day 3). Hx Sepsis--Resolved * Secondary to gangrenous bilateral legs, +blood culture code sepsis called on * Urine Culture (03/03/17): Enterococcus Faecalis-->sensitive to Vancomycin and PCN * Blood cultures (03/03/17): No growth at 5 days * Urine culture (03/02/17): Enterococcus Faecalis * Blood culture (03/02/17): Bacillus species * Blood Culture (03/02/17): no growth after 5 days * Leg Right and Left (03/02/17): Serratia Marcescens and Enterococcus Faecalis * Repeat Blood Culture (03/07): Negative at 5 days * Repeat Urine Culture (04/06): NO growth * Patient was treated with Ampicillin and Rocephin through 03/11/17. He was switched to Ciprofloxicin on 03/11/17 and this was discontinued by ID on 03/13/17. 4). Hx Atrial Fibrillation * Amiodarone 200 mg PO 2x/day * held Metoprolol 100 mg PO Q12H secondary to hypotension * Cardizem 360 mg PO 1x/day * Monitor for therapuetic INR 5). Hx Seizure Disorder * Because of Elevated LFTs his Dilantin was discontinued and Neurology Dr. Onesimo Hogan started him on Keppra 500 mg PO 2x/day 6). Hx Multiple CVAs * Crestor is being held considering the elevated LFTs and that his Lipid Profile is currently WNL. * Repeat Lipid Panel in 1 month to see where we are with this. * ASA 81 mg PO 1x/day * Keep the blood pressure under control 7). Hx Elevated LFTs-->resolved * Could have been secondary to the Dilantin and the Crestor. The Crestor is being held and the Dilantin was switched over to Keppra. * The LFTs have normalized as of 03/14/17 8). Hx Elevated WBC-->resolved * Normalized * Likely secondary to the Sepsis as mentioned above * NO fevers * Vitals are stable 9). Hx Enlarged Prostate and Urinary Retention * Proscar 5 mg PO 1x/day * Flomax 0.4 mg PO 1x/day * Patient had urinary retention on 03/20-->patient had urinary straight cath 10). Anemia Likely Secondary to Chronic Disease * HgB/Hct are stable 11). Prophylaxis * Colace 100 mg PO 2x/day * Pepcid 20 mg PO 1x/day * Zofran 4 mg IV Q6H PRN N/V * DVT Prophylaxis: he is on coumadin Disposition: Patient is pending [employer] approval. Daughter requests for [facility] for for TRENT/Acute Rehab.
--- NOTE | 2017-04-04 02:41 | CP.PCM.PN ---
<Edgar Rojas - Last Filed: 04/04/17 02:39> Subjective - Date & Time of Evaluation Date of Evaluation: 04/04/17 Time of Evaluation: 02:39 - Subjective Subjective: Medicine Progress Note HPI: Patient has been seen and examined. No overnight events reported. He denies, fever, chills, SOB, chest pain, abdominal pain, pain at surgical site, changes in bowel habits, or urinary symptoms. Objective - Vital Signs/Intake and Output Vital Signs (last 24 hours): Temp Pulse Resp BP Pulse Ox 98.5 F 59 L 20 132/60 100 04/04/17 00:00 04/04/17 00:00 04/04/17 00:00 04/04/17 00:00 04/04/17 00:00 Intake and Output: 04/03/17 04/04/17 18:59 06:59 Intake Total 500 Balance 500 - Medications Medications: Current Medications Amiodarone HCl (Cordarone) 200 mg PO BID [facility] Last Admin: 04/03/17 17:18 Dose: 200 mg Aspirin (Aspirin Chewable) 81 mg PO DAILY [facility] Last Admin: 04/03/17 11:06 Dose: 81 mg Diltiazem HCl (Cardizem Cd) 360 mg PO DAILY [facility] Last Admin: 04/03/17 11:08 Dose: 360 mg Docusate Sodium (Colace) 100 mg PO BID [facility] Last Admin: 04/03/17 17:18 Dose: 100 mg Finasteride (Proscar) 5 mg PO DAILY [facility] Last Admin: 04/03/17 11:07 Dose: 5 mg Gabapentin (Neurontin) 300 mg PO TID [facility] Last Admin: 04/03/17 17:18 Dose: 300 mg Lactobacillus Acidophilus (Bacid Acidophilus) 1 cap PO BID [facility] Stop: 04/14/17 18:00 Last Admin: 04/03/17 17:17 Dose: 1 cap Levetiracetam (Keppra) 500 mg PO BID [facility] Last Admin: 04/03/17 17:18 Dose: 500 mg Promethazine HCl/Codeine (Phenergan/Codeine Oral Syrup) 5 ml PO Q4 PRN PRN Reason: Cough Rosuvastatin Calcium (Crestor) 5 mg PO HS [facility] Last Admin: 04/03/17 21:38 Dose: 5 mg Tamsulosin HCl (Flomax) 0.4 mg PO DAILY [facility] Last Admin: 04/03/17 11:06 Dose: 0.4 mg - Labs Labs: 04/03/17 07:03 04/03/17 07:03 PT 22.9 SECONDS (9.7-12.2) H D 04/03/17 07:03 INR 2.0 D 04/03/17 07:03 APTT 32 SECONDS (21-34) 04/03/17 07:03 - Additional Findings Additional findings: Appears: Well, Non-toxic, No Acute Distress - Head Exam Head Exam: ATRAUMATIC, NORMOCEPHALIC, Proximal Sternocleidomastoid muscle tender to palpation. - Eye Exam Eye Exam: Normal appearance - Respiratory Exam Respiratory Exam: Clear to Ausculation Bilateral, NORMAL BREATHING PATTERN. absent: Accessory Muscle Use - Cardiovascular Exam Cardiovascular Exam: RRR, +S1, +S2. absent: Rubs, Murmur - GI/Abdominal Exam GI & Abdominal Exam: Soft. absent: Tenderness. Surgical site wound in right inguinal region. Clean, dry, no dehiscence. - Extremities Exam Additional comments: B/L AKA. Surgical Site clean and dry w/o erythema. - Neurological Exam Neurological Exam: Alert, Awake, Oriented x3 - Psychiatric Exam Psychiatric exam: Normal Affect, Normal Mood Assessment and Plan - Assessment and Plan (Free Text) Assessment: PAD S/P Bilateral AKA 03/04/17 Vascular Surgery (Dr. Kaur) on the case help appreciated Cardiology (Dr. Brown) on the case help appreciated Daily Coumadin Goal INR is 2.5 to 3.[address] Brown Advised dietary and nurse patient will need to be on a vitamin K free- dark leafy greens free diet Neo removed Morphine 2 mg IV Q4H PRN Severe Pain Gabapentin 300 mg PO 3x/day PT recommends no OOB to chair yet due to core instability. Cough CXR 03/22/17: Interval appearance of heterogeneous opacity at the right lung base may represent pneumonia or atelectasis. Otherwise no interval change. Increase opacity noted when compared to 02/20/17 CXR Promethazine PRN Hx Malignant HTN (Stable) B/P running on the low end, continue to monitor. Patient is asymptomatic Held Metoprolol 100 mg PO Q12H in light of hypotension on 03/17; given fluid bolus on 03/17 Cardizem 360 mg PO 1x/day Cozaar 25 mg PO 1x/day Hx Sepsis--Resolved Secondary to gangrenous bilateral legs, +blood culture code sepsis called on 03/03 Urine Culture (03/03/17): Enterococcus Faecalis-->sensitive to Vancomycin and PCN Blood cultures (03/03/17): No growth at 5 days Urine culture (03/02/17): Enterococcus Faecalis Blood culture (03/02/17): Bacillus species Blood Culture (03/02/17): no growth after 5 days Leg Right and Left (03/02/17): Serratia Marcescens and Enterococcus Faecalis Repeat Blood Culture (03/07): Negative at 5 days Repeat Urine Culture (04/06): NO growth Patient was treated with Ampicillin and Rocephin through 03/11/17. He was switched to Ciprofloxicin on 03/11/17 and this was discontinued by ID on 03/13/17. Hx Atrial Fibrillation (Stable) Amiodarone 200 mg PO 2x/day held Metoprolol 100 mg PO Q12H secondary to hypotension Cardizem 360 mg PO 1x/day 03/28 INR 1.7, 5mg Coumadin overnight INR 2.0 today. Coumadin 5 today at 6:00 pm Hx Seizure Disorder Because of Elevated LFTs his Dilantin was discontinued and Neurology Dr. Onesimo Hogan started him on Keppra 500 mg PO 2x/day Hx Multiple CVAs Crestor is being held considering the elevated LFTs and that his Lipid Profile is currently WNL. Repeat Lipid Panel in 1 month (Mid April) to see where we are with this. ASA 81 mg PO 1x/day Keep the blood pressure under control Hx Elevated LFTs-->resolved Could have been secondary to the Dilantin and the Crestor. The Crestor is being held and the Dilantin was switched over to Keppra. The LFTs have normalized as of 03/14/17 Hx Elevated WBC-->resolved Normalized Likely secondary to the Sepsis as mentioned above NO fevers Vitals are stable Hx Enlarged Prostate and Urinary Retention Proscar 5 mg PO 1x/day Flomax 0.4 mg PO 1x/day Patient had urinary retention on 03/20-->patient had urinary straight cath Anemia Likely Secondary to Chronic Disease HgB/Hct are stable Prophylaxis Colace 100 mg PO 2x/day Pepcid 20 mg PO 1x/day Bacid 1 cap PO 2x/day with STOP on 04/14/17 Zofran 4 mg IV Q6H PRN N/V DVT Prophylaxis: he is on coumadin (held today) Disposition: Patient is pending [employer] approval. Daughter requests for [facility] for for [facility]/Acute Rehab. She has been presented with several options by nurse outreach case manager, <Brandon Soriano - Last Filed: 04/08/17 15:09> Objective - Vital Signs/Intake and Output Vital Signs (last 24 hours): Temp Pulse Resp BP Pulse Ox 98.1 F 64 20 151/80 H 96 04/08/17 08:07 04/08/17 08:07 04/08/17 08:07 04/08/17 08:07 04/08/17 08:07 - Medications Medications: Current Medications Amiodarone HCl (Cordarone) 200 mg PO BID [facility] Last Admin: 04/08/17 10:06 Dose: 200 mg Aspirin (Ecotrin) 81 mg PO DAILY [facility] Bacitracin (Bacitracin) 0 gm TOP DAILY [facility] Last Admin: 04/08/17 10:07 Dose: 1 applic Diltiazem HCl (Cardizem Cd) 360 mg PO DAILY [facility] Docusate Sodium (Colace) 100 mg PO BID [facility] Last Admin: 04/08/17 10:06 Dose: 100 mg Famotidine (Pepcid) 20 mg PO DAILY [facility] Finasteride (Proscar) 5 mg PO DAILY [facility] Gabapentin (Neurontin) 300 mg PO TID [facility] Last Admin: 04/08/17 14:05 Dose: 300 mg Lactobacillus Acidophilus (Bacid Acidophilus) 1 cap PO BID [facility] Stop: 04/14/17 18:00 Last Admin: 04/08/17 10:21 Dose: 1 cap Levetiracetam (Keppra) 500 mg PO BID [facility] Last Admin: 04/08/17 10:06 Dose: 500 mg Losartan Potassium (Cozaar) 25 mg PO DAILY [facility] Rosuvastatin Calcium (Crestor) 5 mg PO HS [facility] Last Admin: 04/07/17 22:00 Dose: 5 mg Tamsulosin HCl (Flomax) 0.4 mg PO DAILY [facility] Vitamin A (Vitamin A & D Oint Ud Foilpak) 1 ea TOP BID [facility] Last Admin: 04/08/17 10:06 Dose: 1 ea - Labs Labs: 04/08/17 11:44 04/08/17 11:44 PT 40.0 SECONDS (9.7-12.2) H* D 04/08/17 14:02 INR 3.4 04/08/17 14:02 APTT 38 SECONDS (21-34) H D 04/07/17 07:08 Attending/Attestation - Attestation I have personally seen and examined this patient.: Yes I have fully participated in the care of the patient.: Yes I have reviewed all pertinent clinical information, including history, physical exam and plan: Yes Notes (Text): PAD S/P Bilateral AKA 03/04/17 cont post op care per surgery Plan for TRENT
[2017-04-04 09:45] LABS: INR 1.8
[2017-04-04] MEDS: Lactobacillus Acidophilus 500 MU Cap PO SCH ×2 (11:12→18:05)
[2017-04-04] MEDS: diltiaZEM 180 mg/24 Hours CD Cap PO SCH (11:13)
[2017-04-04] MEDS: Vitamins A & D Oint UD Foilpak TOP SCH (18:04)
--- NOTE | 2017-04-05 02:35 | CP.PCM.PN ---
<Edgar Rojas - Last Filed: 04/05/17 02:32> Subjective - Date & Time of Evaluation Date of Evaluation: 04/05/17 Time of Evaluation: 02:32 - Subjective Subjective: Medicine Progress Note HPI: Patient has been seen and examined. No overnight events reported. He denies, fever, chills, SOB, chest pain, abdominal pain, pain at surgical site, changes in bowel habits, or urinary symptoms. Complaining of pain on the R. leg near the most lateral portion of the scar Objective - Vital Signs/Intake and Output Vital Signs (last 24 hours): Temp Pulse Resp BP Pulse Ox 98.2 F 59 L 20 149/64 97 04/05/17 00:00 04/05/17 00:00 04/05/17 00:00 04/05/17 00:00 04/05/17 00:00 Intake and Output: 04/04/17 04/05/17 18:59 06:59 Intake Total 480 300 Output Total 800 Balance -320 300 - Medications Medications: Current Medications Amiodarone HCl (Cordarone) 200 mg PO BID [facility] Last Admin: 04/04/17 18:04 Dose: 200 mg Aspirin (Aspirin Chewable) 81 mg PO DAILY [facility] Last Admin: 04/04/17 11:12 Dose: 81 mg Bacitracin (Bacitracin) 0 gm TOP DAILY [facility] Diltiazem HCl (Cardizem Cd) 360 mg PO DAILY [facility] Last Admin: 04/04/17 11:13 Dose: 360 mg Docusate Sodium (Colace) 100 mg PO BID [facility] Last Admin: 04/04/17 18:05 Dose: 100 mg Finasteride (Proscar) 5 mg PO DAILY [facility] Last Admin: 04/04/17 11:13 Dose: 5 mg Gabapentin (Neurontin) 300 mg PO TID [facility] Last Admin: 04/04/17 18:03 Dose: 300 mg Lactobacillus Acidophilus (Bacid Acidophilus) 1 cap PO BID [facility] Stop: 04/14/17 18:00 Last Admin: 04/04/17 18:05 Dose: 1 cap Levetiracetam (Keppra) 500 mg PO BID [facility] Last Admin: 04/04/17 18:04 Dose: 500 mg Promethazine HCl/Codeine (Phenergan/Codeine Oral Syrup) 5 ml PO Q4 PRN PRN Reason: Cough Rosuvastatin Calcium (Crestor) 5 mg PO HS [facility] Last Admin: 04/04/17 21:45 Dose: 5 mg Tamsulosin HCl (Flomax) 0.4 mg PO DAILY [facility] Last Admin: 04/04/17 11:12 Dose: 0.4 mg Vitamin A (Vitamin A & D Oint Ud Foilpak) 1 ea TOP BID [facility] Last Admin: 04/04/17 18:04 Dose: 1 ea - Labs Labs: 04/03/17 07:03 04/03/17 07:03 PT 21.2 SECONDS (9.7-12.2) H 04/04/17 09:31 INR 1.8 04/04/17 09:31 APTT 32 SECONDS (21-34) 04/04/17 09:31 - Additional Findings Additional findings: Appears: Well, Non-toxic, No Acute Distress - Head Exam Head Exam: ATRAUMATIC, NORMOCEPHALIC, Proximal Sternocleidomastoid muscle tender to palpation. - Eye Exam Eye Exam: Normal appearance - Respiratory Exam Respiratory Exam: Clear to Ausculation Bilateral, NORMAL BREATHING PATTERN. absent: Accessory Muscle Use - Cardiovascular Exam Cardiovascular Exam: RRR, +S1, +S2. absent: Rubs, Murmur - GI/Abdominal Exam GI & Abdominal Exam: Soft. absent: Tenderness. Surgical site wound in right inguinal region. Clean, dry, no dehiscence. - Extremities Exam Additional comments: B/L AKA. Surgical Site clean and dry w/o erythema. - Neurological Exam Neurological Exam: Alert, Awake, Oriented x3 - Psychiatric Exam Psychiatric exam: Normal Affect, Normal Mood Assessment and Plan - Assessment and Plan (Free Text) Assessment: PAD S/P Bilateral AKA 03/04/17 Vascular Surgery (Dr. Kaur) on the case help appreciated Cardiology (Dr. Brown) on the case help appreciated Daily Coumadin Goal INR is 2.5 to 3.[address] Brown Advised dietary and nurse patient will need to be on a vitamin K free- dark leafy greens free diet Ladd removed Morphine 2 mg IV Q4H PRN Severe Pain Gabapentin 300 mg PO 3x/day PT recommends no OOB to chair yet due to core instability. Cough CXR 03/22/17: Interval appearance of heterogeneous opacity at the right lung base may represent pneumonia or atelectasis. Otherwise no interval change. Increase opacity noted when compared to 02/20/17 CXR Promethazine PRN Hx Malignant HTN (Stable) B/P running on the low end, continue to monitor. Patient is asymptomatic Held Metoprolol 100 mg PO Q12H in light of hypotension on 03/17; given fluid bolus on 03/17 Cardizem 360 mg PO 1x/day Cozaar 25 mg PO 1x/day Hx Sepsis--Resolved Secondary to gangrenous bilateral legs, +blood culture code sepsis called on 03/03 Urine Culture (03/03/17): Enterococcus Faecalis-->sensitive to Vancomycin and PCN Blood cultures (03/03/17): No growth at 5 days Urine culture (03/02/17): Enterococcus Faecalis Blood culture (03/02/17): Bacillus species Blood Culture (03/02/17): no growth after 5 days Leg Right and Left (03/02/17): Serratia Marcescens and Enterococcus Faecalis Repeat Blood Culture (03/07): Negative at 5 days Repeat Urine Culture (04/06): NO growth Patient was treated with Ampicillin and Rocephin through 03/11/17. He was switched to Ciprofloxicin on 03/11/17 and this was discontinued by ID on 03/13/17. Hx Atrial Fibrillation (Stable) Amiodarone 200 mg PO 2x/day held Metoprolol 100 mg PO Q12H secondary to hypotension Cardizem 360 mg PO 1x/day 03/28 INR 1.7, 5mg Coumadin overnight INR 2.0 today. Coumadin 5 today at 6:00 pm Hx Seizure Disorder Because of Elevated LFTs his Dilantin was discontinued and Neurology Dr. Onesimo Hogan started him on Keppra 500 mg PO 2x/day Hx Multiple CVAs Crestor is being held considering the elevated LFTs and that his Lipid Profile is currently WNL. Repeat Lipid Panel in 1 month (Mid April) to see where we are with this. ASA 81 mg PO 1x/day Keep the blood pressure under control Hx Elevated LFTs-->resolved Could have been secondary to the Dilantin and the Crestor. The Crestor is being held and the Dilantin was switched over to Keppra. The LFTs have normalized as of 03/14/17 Hx Elevated WBC-->resolved Normalized Likely secondary to the Sepsis as mentioned above NO fevers Vitals are stable Hx Enlarged Prostate and Urinary Retention Proscar 5 mg PO 1x/day Flomax 0.4 mg PO 1x/day Patient had urinary retention on 03/20-->patient had urinary straight cath Anemia Likely Secondary to Chronic Disease HgB/Hct are stable Prophylaxis Colace 100 mg PO 2x/day Pepcid 20 mg PO 1x/day Bacid 1 cap PO 2x/day with STOP on 04/14/17 Zofran 4 mg IV Q6H PRN N/V DVT Prophylaxis: he is on coumadin (held today) Disposition: Patient is pending MEDCA[employer] approval. Daughter requests for [facility] for for TRENT/Acute Rehab. She has been presented with several options by case resource manager, <Alexandra Skinner V - Last Filed: 04/05/17 18:24> Objective - Vital Signs/Intake and Output Vital Signs (last 24 hours): Temp Pulse Resp BP Pulse Ox 98.3 F 54 L 20 114/61 97 04/05/17 15:00 04/05/17 15:00 04/05/17 15:00 04/05/17 15:00 04/05/17 15:00 Intake and Output: 04/05/17 04/05/17 06:59 18:59 Intake Total 300 360 Balance 300 360 - Medications Medications: Current Medications Amiodarone HCl (Cordarone) 200 mg PO BID [facility] Last Admin: 04/05/17 10:46 Dose: 200 mg Aspirin (Aspirin Chewable) 81 mg PO DAILY [facility] Last Admin: 04/05/17 10:46 Dose: 81 mg Bacitracin (Bacitracin) 0 gm TOP DAILY [facility] Last Admin: 04/05/17 10:47 Dose: 1 applic Diltiazem HCl (Cardizem Cd) 360 mg PO DAILY [facility] Last Admin: 04/05/17 10:46 Dose: 360 mg Docusate Sodium (Colace) 100 mg PO BID [facility] Last Admin: 04/05/17 10:46 Dose: 100 mg Finasteride (Proscar) 5 mg PO DAILY [facility] Last Admin: 04/05/17 10:46 Dose: 5 mg Gabapentin (Neurontin) 300 mg PO TID [facility] Last Admin: 04/05/17 14:23 Dose: 300 mg Lactobacillus Acidophilus (Bacid Acidophilus) 1 cap PO BID [facility] Stop: 04/14/17 18:00 Last Admin: 04/05/17 10:46 Dose: 1 cap Levetiracetam (Keppra) 500 mg PO BID [facility] Last Admin: 04/05/17 10:45 Dose: 500 mg Promethazine HCl/Codeine (Phenergan/Codeine Oral Syrup) 5 ml PO Q4 PRN PRN Reason: Cough Rosuvastatin Calcium (Crestor) 5 mg PO HS [facility] Last Admin: 04/04/17 21:45 Dose: 5 mg Tamsulosin HCl (Flomax) 0.4 mg PO DAILY [facility] Last Admin: 04/05/17 10:46 Dose: 0.4 mg Vitamin A (Vitamin A & D Oint Ud Foilpak) 1 ea TOP BID [facility] Last Admin: 04/05/17 10:46 Dose: 1 ea Warfarin Sodium (Coumadin) 5 mg PO 1800 [facility] Stop: 04/06/17 18:20 - Labs Labs: 04/03/17 07:03 04/03/17 07:03 PT 27.0 SECONDS (9.7-12.2) H D 04/05/17 07:30 INR 2.3 D 04/05/17 07:30 APTT 32 SECONDS (21-34) 04/04/17 09:31 Attending/Attestation - Attestation I have personally seen and examined this patient.: Yes I have fully participated in the care of the patient.: Yes I have reviewed all pertinent clinical information, including history, physical exam and plan: Yes Notes (Text): Patient seen, examined, and case discussed with day-time resident. Patient seen this afternoon Patient denies acute complaints. Patient ordered for Coumadin 5mg PO X1 tonight. INR goal: 2.5 to 3.5 Groin site healed; 1 or 2 sutures left over--.f/u surgery when to remove sutures Assessment/Plan 1). PAD S/P Bilateral AKA 03/04/17 * Vascular Surgery (Dr. Kaur) on the case help appreciated * Cardiology (Dr. Brown) on the case help appreciated * Goal INR is 2.5 to 3.[address] Brown * Neo to Surgical Site to removed when Ok with Vascular Surgery Dr. Kaur -->neo removed 03/31/17 * Gabapentin 300 mg PO 3x/day * Groin site healed; 1 or 2 sutures left over--.f/u surgery when to remove * 2). Hx Malignant HTN * B/P running on the low end, continue to monitor. Patient is asymptomatic * Held Metoprolol 100 mg PO Q12H in light of hypotension on 03/17; given fluid bolus on 03/17 * Cardizem 360 mg PO 1x/day * Cozaar 25 mg PO 1x/day 3). Hx Sepsis--Resolved * Secondary to gangrenous bilateral legs, +blood culture code sepsis called on * Urine Culture (03/03/17): Enterococcus Faecalis-->sensitive to Vancomycin and PCN * Blood cultures (03/03/17): No growth at 5 days * Urine culture (03/02/17): Enterococcus Faecalis * Blood culture (03/02/17): Bacillus species * Blood Culture (03/02/17): no growth after 5 days * Leg Right and Left (03/02/17): Serratia Marcescens and Enterococcus Faecalis * Repeat Blood Culture (03/07): Negative at 5 days * Repeat Urine Culture (04/06): NO growth * Patient was treated with Ampicillin and Rocephin through 03/11/17. He was switched to Ciprofloxicin on 03/11/17 and this was discontinued by ID on 03/13/17. 4). Hx Atrial Fibrillation * Amiodarone 200 mg PO 2x/day * held Metoprolol 100 mg PO Q12H secondary to hypotension * Cardizem 360 mg PO 1x/day * Monitor for therapuetic INR 5). Hx Seizure Disorder * Because of Elevated LFTs his Dilantin was discontinued and Neurology Dr. Onesimo Hogan started him on Keppra 500 mg PO 2x/day 6). Hx Multiple CVAs * Crestor is being held considering the elevated LFTs and that his Lipid Profile is currently WNL. * Repeat Lipid Panel in 1 month to see where we are with this. * ASA 81 mg PO 1x/day * Keep the blood pressure under control 7). Hx Elevated LFTs-->resolved * Could have been secondary to the Dilantin and the Crestor. The Crestor is being held and the Dilantin was switched over to Keppra. * The LFTs have normalized as of 03/14/17 8). Hx Elevated WBC-->resolved * Normalized * Likely secondary to the Sepsis as mentioned above * NO fevers * Vitals are stable 9). Hx Enlarged Prostate and Urinary Retention * Proscar 5 mg PO 1x/day * Flomax 0.4 mg PO 1x/day * Patient had urinary retention on 03/20-->patient had urinary straight cath 10). Anemia Likely Secondary to Chronic Disease * HgB/Hct are stable 11). Prophylaxis * Colace 100 mg PO 2x/day * Pepcid 20 mg PO 1x/day * Zofran 4 mg IV Q6H PRN N/V * DVT Prophylaxis: he is on coumadin Disposition: Patient is pending MED[employer] approval. Daughter requests for [facility] for for TRENT/Acute Rehab.
[2017-04-05 07:48] LABS: INR 2.3
[2017-04-05] MEDS: diltiaZEM 180 mg/24 Hours CD Cap PO SCH (10:46)
[2017-04-05] MEDS: Vitamins A & D Oint UD Foilpak TOP SCH ×2 (10:46→18:41)
[2017-04-05] MEDS: Lactobacillus Acidophilus 500 MU Cap PO SCH ×2 (10:46→18:40)
[2017-04-05] MEDS: Bacitracin Ointment 30 GM TUBE TOP SCH (10:47)
[2017-04-06 08:27] LABS: INR 2.5
[2017-04-06] MEDS: Vitamins A & D Oint UD Foilpak TOP SCH ×2 (09:26→17:55)
--- NOTE | 2017-04-06 10:16 | CP.PCM.PN ---
<Kat Qureshi - Last Filed: 04/06/17 18:12> Subjective - Date & Time of Evaluation Date of Evaluation: 04/06/17 Time of Evaluation: 10:12 - Subjective Subjective: Patient has been seen and examined. No overnight events reported. He denies, fever, chills, SOB, chest pain, abdominal pain, changes in bowel habits, or urinary symptoms. Patient is complaining of pain at the right lower ext. surgical site. Objective - Vital Signs/Intake and Output Vital Signs (last 24 hours): Temp Pulse Resp BP Pulse Ox 97.3 F L 60 21 146/57 L 98 04/06/17 08:54 04/06/17 08:54 04/06/17 08:54 04/06/17 08:54 04/06/17 08:54 Intake and Output: 04/06/17 04/06/17 06:59 18:59 Intake Total 420 Output Total 400 Balance 20 - Medications Medications: Current Medications Amiodarone HCl (Cordarone) 200 mg PO BID [facility] Last Admin: 04/06/17 09:26 Dose: 200 mg Aspirin (Aspirin Chewable) 81 mg PO DAILY [facility] Last Admin: 04/06/17 09:26 Dose: 81 mg Bacitracin (Bacitracin) 0 gm TOP DAILY [facility] Last Admin: 04/05/17 10:47 Dose: 1 applic Diltiazem HCl (Cardizem Cd) 360 mg PO DAILY [facility] Last Admin: 04/05/17 10:46 Dose: 360 mg Docusate Sodium (Colace) 100 mg PO BID [facility] Last Admin: 04/06/17 09:26 Dose: 100 mg Finasteride (Proscar) 5 mg PO DAILY [facility] Last Admin: 04/05/17 10:46 Dose: 5 mg Gabapentin (Neurontin) 300 mg PO TID [facility] Last Admin: 04/06/17 09:27 Dose: 300 mg Lactobacillus Acidophilus (Bacid Acidophilus) 1 cap PO BID [facility] Stop: 04/14/17 18:00 Last Admin: 04/05/17 18:40 Dose: 1 cap Levetiracetam (Keppra) 500 mg PO BID [facility] Last Admin: 04/06/17 09:27 Dose: 500 mg Rosuvastatin Calcium (Crestor) 5 mg PO HS [facility] Last Admin: 04/05/17 21:43 Dose: 5 mg Tamsulosin HCl (Flomax) 0.4 mg PO DAILY [facility] Last Admin: 04/06/17 09:27 Dose: 0.4 mg Vitamin A (Vitamin A & D Oint Ud Foilpak) 1 ea TOP BID [facility] Last Admin: 04/06/17 09:26 Dose: 1 ea - Labs Labs: 04/03/17 07:03 04/03/17 07:03 PT 29.3 SECONDS (9.7-12.2) H 04/06/17 08:18 INR 2.5 04/06/17 08:18 APTT 32 SECONDS (21-34) 04/04/17 09:31 - Constitutional Appears: Well, Non-toxic - Head Exam Head Exam: ATRAUMATIC, NORMAL INSPECTION, NORMOCEPHALIC - Eye Exam Eye Exam: EOMI, Normal appearance - ENT Exam ENT Exam: Mucous Membranes Moist - Neck Exam Neck Exam: absent: Lymphadenopathy - Respiratory Exam Respiratory Exam: Clear to Ausculation Bilateral, NORMAL BREATHING PATTERN. absent: Accessory Muscle Use - Cardiovascular Exam Cardiovascular Exam: +S1, +S2 - GI/Abdominal Exam GI & Abdominal Exam: Soft, Normal Bowel Sounds. absent: Tenderness, Organomegaly Additional comments: Surgical site wound in right inguinal region. Clean, dry, no dehiscence. - Extremities Exam Additional comments: B/L AKA. Surgical Site clean and dry w/o erythema. Small fluid collection and slightly tender to palpation. 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 He underwent bilateral thrombectomy on 02/05/17. The status of his bilateral lower legs worsened subsequently ( formation of bullae and sloughing of skin and these extremities cool to the touch and intense pain with minor palpation). Cultures from the bilateral lower legs revealed Serratia marcescens and Enterococcus faecalis. Blood Culture was positive for Bacillus species and Urine Cultures positive for Enterococcus faecalis. Because of the likelihood of sepsis, family decided on amputation. 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 Family has completed Medicaid Application and awaiting approval for TRENT placement. Plan: PAD S/P Bilateral AKA 03/04/17 Vascular Surgery (Dr. Kaur) on the case help appreciated Cardiology (Dr. Brown) on the case help appreciated Daily Coumadin (5 Given today) Goal INR is 2.5 to 3.[address] Brown Advised dietary and nurse patient will need to be on a vitamin K free- dark leafy greens free diet [place] removed Gabapentin 300 mg PO 3x/day PT recommends no OOB to chair yet due to core instability. (04/06): Slight fluid collection at surgical site. consider reconsulting surgery. Cough CXR 03/22/17: Interval appearance of heterogeneous opacity at the right lung base may represent pneumonia or atelectasis. Otherwise no interval change. Increase opacity noted when compared to 02/20/17 CXR Promethazine PRN Hx Malignant HTN (Stable) B/P running on the low end, continue to monitor. Patient is asymptomatic Held Metoprolol 100 mg PO Q12H in light of hypotension on 03/17; given fluid bolus on 03/17 Cardizem 360 mg PO 1x/day Cozaar 25 mg PO 1x/day Hx Sepsis--Resolved Secondary to gangrenous bilateral legs, +blood culture code sepsis called on 03/03 Urine Culture (03/03/17): Enterococcus Faecalis-->sensitive to Vancomycin and PCN Blood cultures (03/03/17): No growth at 5 days Urine culture (03/02/17): Enterococcus Faecalis Blood culture (03/02/17): Bacillus species Blood Culture (03/02/17): no growth after 5 days Leg Right and Left (03/02/17): Serratia Marcescens and Enterococcus Faecalis Repeat Blood Culture (03/07): Negative at 5 days Repeat Urine Culture (04/06): NO growth Patient was treated with Ampicillin and Rocephin through 03/11/17. He was switched to Ciprofloxicin on 03/11/17 and this was discontinued by ID on 03/13/17. Hx Atrial Fibrillation (Stable) Amiodarone 200 mg PO 2x/day held Metoprolol 100 mg PO Q12H secondary to hypotension Cardizem 360 mg PO 1x/day 03/28 INR 1.7, 5mg Coumadin overnight INR 2.0 today. Coumadin 5 today at 6:00 pm Hx Seizure Disorder Because of Elevated LFTs his Dilantin was discontinued and Neurology Dr. Onesimo Hogan started him on Keppra 500 mg PO 2x/day Hx Multiple CVAs Crestor is being held considering the elevated LFTs and that his Lipid Profile is currently WNL. Repeat Lipid Panel in 1 month (Mid April) to see where we are with this. ASA 81 mg PO 1x/day Keep the blood pressure under control Hx Elevated LFTs-->resolved Could have been secondary to the Dilantin and the Crestor. The Crestor is being held and the Dilantin was switched over to Keppra. The LFTs have normalized as of 03/14/17 Hx Elevated WBC-->resolved Normalized Likely secondary to the Sepsis as mentioned above NO fevers Vitals are stable Hx Enlarged Prostate and Urinary Retention Proscar 5 mg PO 1x/day Flomax 0.4 mg PO 1x/day Patient had urinary retention on 03/20-->patient had urinary straight cath Anemia Likely Secondary to Chronic Disease HgB/Hct are stable Prophylaxis Colace 100 mg PO 2x/day Pepcid 20 mg PO 1x/day Bacid 1 cap PO 2x/day with STOP on 04/14/17 Zofran 4 mg IV Q6H PRN N/V DVT Prophylaxis: he is on coumadin (held today) Disposition: Patient is pending MEDCA[employer] approval. Daughter requests for [facility] for for TRENT/Acute Rehab. She has been presented with several options by nurse outreach case manager. Patient discussed with Attending Kat Qureshi - PGY-1 <Unruly Vines - Last Filed: 04/06/17 21:22> Objective - Vital Signs/Intake and Output Vital Signs (last 24 hours): Temp Pulse Resp BP Pulse Ox 97.3 F L 60 21 146/57 L 98 04/06/17 08:54 04/06/17 15:44 04/06/17 08:54 04/06/17 15:44 04/06/17 15:44 - Medications Medications: Current Medications Amiodarone HCl (Cordarone) 200 mg PO BID [facility] Last Admin: 04/06/17 17:52 Dose: 200 mg Aspirin (Aspirin Chewable) 81 mg PO DAILY [facility] Last Admin: 04/06/17 09:26 Dose: 81 mg Bacitracin (Bacitracin) 0 gm TOP DAILY [facility] Last Admin: 04/06/17 10:50 Dose: 1 applic Diltiazem HCl (Cardizem Cd) 360 mg PO DAILY [facility] Last Admin: 04/06/17 10:45 Dose: 360 mg Docusate Sodium (Colace) 100 mg PO BID [facility] Last Admin: 04/06/17 17:52 Dose: 100 mg Finasteride (Proscar) 5 mg PO DAILY [facility] Last Admin: 04/06/17 10:45 Dose: 5 mg Gabapentin (Neurontin) 300 mg PO TID [facility] Last Admin: 04/06/17 17:53 Dose: 300 mg Lactobacillus Acidophilus (Bacid Acidophilus) 1 cap PO BID [facility] Stop: 04/14/17 18:00 Last Admin: 04/06/17 17:53 Dose: 1 cap Levetiracetam (Keppra) 500 mg PO BID [facility] Last Admin: 04/06/17 17:55 Dose: 500 mg Rosuvastatin Calcium (Crestor) 5 mg PO HS [facility] Last Admin: 04/05/17 21:43 Dose: 5 mg Tamsulosin HCl (Flomax) 0.4 mg PO DAILY [facility] Last Admin: 04/06/17 09:27 Dose: 0.4 mg Vitamin A (Vitamin A & D Oint Ud Foilpak) 1 ea TOP BID [facility] Last Admin: 04/06/17 17:55 Dose: 1 ea - Labs Labs: 04/06/17 12:15 04/06/17 12:15 PT 29.3 SECONDS (9.7-12.2) H 04/06/17 08:18 INR 2.5 04/06/17 08:18 APTT 32 SECONDS (21-34) 04/04/17 09:31 Attending/Attestation - Attestation I have personally seen and examined this patient.: Yes I have fully participated in the care of the patient.: Yes I have reviewed all pertinent clinical information, including history, physical exam and plan: Yes Notes (Text): 04/06/17 21:20 Patient was seen and examined at 10:45 AM 04/06/17 355A Exam, assessment and plan were thoroughly gone over with the resident. Also on Exam: LE Surgical Sites were examined with Vascular Surgeon Dr. Kaur and no further intervention at this time. Dr. Kaur to have his team remove sutures from Bilateral Groin Surgical Sites. Coumadin 5 mg PO x 1 dose tonight and F/U INR in the morning. Unruly Vines D.O.
[2017-04-06] MEDS: diltiaZEM 180 mg/24 Hours CD Cap PO SCH (10:45)
[2017-04-06] MEDS: Lactobacillus Acidophilus 500 MU Cap PO SCH ×2 (10:45→17:53)
[2017-04-06] MEDS: Bacitracin Ointment 30 GM TUBE TOP SCH (10:50)
[2017-04-06 12:30] LABS: BASO % 0.2 % (0.0-2.0); EOS # 0.1 K/uL (0.0-0.7); EOS % 1.6 % (0.0-4.0); HEMATOCRIT 34.5 % (35.0-51.0); LYMPH # 2.1 K/uL (1.0-4.3); LYMPH % 28.6 % (20.0-40.0); MEAN CELL VOLUME 79.5 fL (80.0-94.0); MEAN CORPUSCULAR HEMOGLOBIN 26.7 pg (27.0-31.0); MEAN CORPUSCULAR HGB CONC 33.5 g/dL (33.0-37.0); MEAN PLATELET VOLUME 7.6 fL (7.2-11.7); MONO # 0.4 K/uL (0.0-0.8); RED CELL DISTRIBUTION WIDTH 16.2 % (11.5-14.5); WHITE BLOOD COUNT 7.2 K/uL (4.8-10.8)
[2017-04-06 12:41] LABS: CHLORIDE 98 mmol/L (98-107); SODIUM 133 mmol/L (132-148)
[2017-04-06 12:42] LABS: POTASSIUM 3.8 mmol/L (3.6-5.2)
[2017-04-06 12:43] LABS: BILIRUBIN,TOTAL 0.6 mg/dL (0.2-1.3); GFR AFRICAN-AMERICAN > 60
[2017-04-06 12:44] LABS: ALB/GLOB RATIO 1.2 (1.0-2.1); ALKALINE PHOSPHATASE 114 U/L (38-126); ALT/SGPT 33 U/L (21-72); AST/SGOT 19 U/L (17-59); BLOOD UREA NITROGEN 14 mg/dL (9-20); CARBON DIOXIDE 26 mmol/L (22-30); GLUCOSE,RANDOM 74 mg/dL (75-110); PHOSPHOROUS 4.1 mg/dL (2.5-4.5); TOTAL PROTEIN 5.8 g/dL (6.3-8.3)
[2017-04-06 12:45] LABS: CALCIUM 8.4 mg/dl (8.6-10.4); MAGNESIUM 1.7 mg/dL (1.6-2.3)
[2017-04-07] MEDS: Lactobacillus Acidophilus 500 MU Cap PO SCH ×2 (09:34→17:57)
[2017-04-07] MEDS: Bacitracin Ointment 30 GM TUBE TOP SCH (09:35)
[2017-04-07] MEDS: Vitamins A & D Oint UD Foilpak TOP SCH ×2 (09:35→17:59)
[2017-04-07 14:06] LABS: INR 4.1
--- NOTE | 2017-04-07 17:18 | CP.PCM.PN ---
<NiranjanrayDonovanroxie - Last Filed: 04/07/17 17:15> Subjective - Date & Time of Evaluation Date of Evaluation: 04/07/17 Time of Evaluation: 10:30 - Subjective Subjective: Patient has been seen and examined. No overnight events reported. He denies, fever, chills, SOB, chest pain, abdominal pain, changes in bowel habits, or urinary symptoms. Patient is no longer complaining of pain at the right lower ext. surgical site. Objective - Vital Signs/Intake and Output Vital Signs (last 24 hours): Temp Pulse Resp BP Pulse Ox 97.3 F L 66 20 149/74 98 04/07/17 15:15 04/07/17 16:50 04/07/17 15:15 04/07/17 16:50 04/07/17 16:50 Intake and Output: 04/07/17 04/07/17 06:59 18:59 Intake Total 360 Output Total 350 Balance 10 - Medications Medications: Current Medications Amiodarone HCl (Cordarone) 200 mg PO BID [facility] Last Admin: 04/07/17 09:33 Dose: 200 mg Bacitracin (Bacitracin) 0 gm TOP DAILY [facility] Last Admin: 04/07/17 09:35 Dose: 1 applic Docusate Sodium (Colace) 100 mg PO BID [facility] Last Admin: 04/07/17 09:33 Dose: 100 mg Gabapentin (Neurontin) 300 mg PO TID [facility] Last Admin: 04/07/17 14:12 Dose: 300 mg Lactobacillus Acidophilus (Bacid Acidophilus) 1 cap PO BID [facility] Stop: 04/14/17 18:00 Last Admin: 04/07/17 09:34 Dose: 1 cap Levetiracetam (Keppra) 500 mg PO BID [facility] Rosuvastatin Calcium (Crestor) 5 mg PO HS [facility] Vitamin A (Vitamin A & D Oint Ud Foilpak) 1 ea TOP BID [facility] Last Admin: 04/07/17 09:35 Dose: 1 ea - Labs Labs: 04/06/17 12:15 04/06/17 12:15 PT 49.1 SECONDS (9.7-12.2) H* 04/07/17 13:36 INR 4.1 04/07/17 13:36 APTT 38 SECONDS (21-34) H D 04/07/17 07:08 - Additional Findings Additional findings: - Constitutional Appears: Well, Non-toxic - Head Exam Head Exam: ATRAUMATIC, NORMAL INSPECTION, NORMOCEPHALIC - Eye Exam Eye Exam: EOMI, Normal appearance - ENT Exam ENT Exam: Mucous Membranes Moist - Neck Exam Neck Exam: absent: Lymphadenopathy - Respiratory Exam Respiratory Exam: Clear to Ausculation Bilateral, NORMAL BREATHING PATTERN. absent: Accessory Muscle Use - Cardiovascular Exam Cardiovascular Exam: +S1, +S2 - GI/Abdominal Exam GI & Abdominal Exam: Soft, Normal Bowel Sounds. absent: Tenderness, Organomegaly Additional comments: Surgical site wound in right inguinal region. Clean, dry, no dehiscence. - Extremities Exam Additional comments: B/L AKA. Surgical Site clean and dry w/o erythema. Small fluid collection and slightly tender to palpation. 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 He underwent bilateral thrombectomy on 02/05/17. The status of his bilateral lower legs worsened subsequently ( formation of bullae and sloughing of skin and these extremities cool to the touch and intense pain with minor palpation). Cultures from the bilateral lower legs revealed Serratia marcescens and Enterococcus faecalis. Blood Culture was positive for Bacillus species and Urine Cultures positive for Enterococcus faecalis. Because of the likelihood of sepsis, family decided on amputation. 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 Family has completed Medicaid Application and awaiting approval for TRENT placement. Plan: PAD S/P Bilateral AKA 03/04/17 Vascular Surgery (Dr. Kaur) on the case help appreciated Cardiology (Dr. Brown) on the case help appreciated Daily Coumadin (5 Given today) Goal INR is 2.5 to 3.[address] Brown Advised dietary and nurse patient will need to be on a vitamin K free- dark leafy greens free diet [place] removed Gabapentin 300 mg PO 3x/day PT recommends no OOB to chair yet due to core instability. Cough CXR 03/22/17: Interval appearance of heterogeneous opacity at the right lung base may represent pneumonia or atelectasis. Otherwise no interval change. Increase opacity noted when compared to 02/20/17 CXR Promethazine PRN Hx Malignant HTN (Stable) B/P running on the low end, continue to monitor. Patient is asymptomatic Held Metoprolol 100 mg PO Q12H in light of hypotension on 03/17; given fluid bolus on 03/17 Cardizem 360 mg PO 1x/day Cozaar 25 mg PO 1x/day Hx Sepsis--Resolved Secondary to gangrenous bilateral legs, +blood culture code sepsis called on 03/03 Urine Culture (03/03/17): Enterococcus Faecalis-->sensitive to Vancomycin and PCN Blood cultures (03/03/17): No growth at 5 days Urine culture (03/02/17): Enterococcus Faecalis Blood culture (03/02/17): Bacillus species Blood Culture (03/02/17): no growth after 5 days Leg Right and Left (03/02/17): Serratia Marcescens and Enterococcus Faecalis Repeat Blood Culture (03/07): Negative at 5 days Repeat Urine Culture (04/06): NO growth Patient was treated with Ampicillin and Rocephin through 03/11/17. He was switched to Ciprofloxicin on 03/11/17 and this was discontinued by ID on 03/13/17. Hx Atrial Fibrillation (Stable) Amiodarone 200 mg PO 2x/day held Metoprolol 100 mg PO Q12H secondary to hypotension Cardizem 360 mg PO 1x/day 03/28 INR 1.7, 5mg Coumadin overnight INR 4.0 today. Coumadin held today. Hx Seizure Disorder Because of Elevated LFTs his Dilantin was discontinued and Neurology Dr. Onesimo Hogan started him on Keppra 500 mg PO 2x/day Hx Multiple CVAs Crestor is being held considering the elevated LFTs and that his Lipid Profile is currently WNL. Repeat Lipid Panel in 1 month (Mid April) to see where we are with this. ASA 81 mg PO 1x/day Keep the blood pressure under control Hx Elevated LFTs-->resolved Could have been secondary to the Dilantin and the Crestor. The Crestor is being held and the Dilantin was switched over to Keppra. The LFTs have normalized as of 03/14/17 Hx Elevated WBC-->resolved Normalized Likely secondary to the Sepsis as mentioned above NO fevers Vitals are stable Hx Enlarged Prostate and Urinary Retention Proscar 5 mg PO 1x/day Flomax 0.4 mg PO 1x/day Patient had urinary retention on 03/20-->patient had urinary straight cath Anemia Likely Secondary to Chronic Disease HgB/Hct are stable Prophylaxis Colace 100 mg PO 2x/day Pepcid 20 mg PO 1x/day Bacid 1 cap PO 2x/day with STOP on 04/14/17 Zofran 4 mg IV Q6H PRN N/V DVT Prophylaxis: he is on coumadin (held today) Disposition: Patient is pending MEDCA[employer] approval. Daughter requests for [facility] for for [facility]/Acute Rehab. She has been presented with several options by home health care case manager. Patient discussed with Attending Kat Qureshi - PGY-1 <Unruly Vines - Last Filed: 04/07/17 20:57> Objective - Vital Signs/Intake and Output Vital Signs (last 24 hours): Temp Pulse Resp BP Pulse Ox 97.3 F L 66 20 149/74 98 04/07/17 15:15 04/07/17 16:50 04/07/17 15:15 04/07/17 16:50 04/07/17 16:50 Intake and Output: 04/07/17 04/08/17 18:59 06:59 Intake Total 360 Output Total 350 Balance 10 - Medications Medications: Current Medications Amiodarone HCl (Cordarone) 200 mg PO BID [facility] Last Admin: 04/07/17 17:58 Dose: 200 mg Bacitracin (Bacitracin) 0 gm TOP DAILY [facility] Last Admin: 04/07/17 09:35 Dose: 1 applic Docusate Sodium (Colace) 100 mg PO BID [facility] Last Admin: 04/07/17 17:58 Dose: 100 mg Gabapentin (Neurontin) 300 mg PO TID [facility] Last Admin: 04/07/17 17:59 Dose: 300 mg Lactobacillus Acidophilus (Bacid Acidophilus) 1 cap PO BID [facility] Stop: 04/14/17 18:00 Last Admin: 04/07/17 17:57 Dose: 1 cap Levetiracetam (Keppra) 500 mg PO BID [facility] Last Admin: 04/07/17 17:58 Dose: 500 mg Rosuvastatin Calcium (Crestor) 5 mg PO HS [facility] Vitamin A (Vitamin A & D Oint Ud Foilpak) 1 ea TOP BID [facility] Last Admin: 04/07/17 17:59 Dose: 1 ea - Labs Labs: 04/06/17 12:15 04/06/17 12:15 PT 49.1 SECONDS (9.7-12.2) H* 04/07/17 13:36 INR 4.1 04/07/17 13:36 APTT 38 SECONDS (21-34) H D 04/07/17 07:08 Attending/Attestation - Attestation I have personally seen and examined this patient.: Yes I have fully participated in the care of the patient.: Yes I have reviewed all pertinent clinical information, including history, physical exam and plan: Yes Notes (Text): 04/07/17 20:55 Patient was seen and examined at 1:45 PM 04/07/17 355A Exam, assessment and plan were thoroughly gone over with the resident. Also on ROS: Had bowel movement yesterday 04/06/17. Also on Exam: LE Surgical Sites were clean with no signs of cellulitis HOLD Coumadin tonight at INR supratherapeutic. Patient will likely need 3 to 4 mg daily. Repeat Full Blood Work on Mondays and and daily INR until stable. Unruly Vines D.O.
[2017-04-08] MEDS: Vitamins A & D Oint UD Foilpak TOP SCH ×2 (10:06→17:49)
[2017-04-08] MEDS: Bacitracin Ointment 30 GM TUBE TOP SCH (10:07)
[2017-04-08] MEDS: Lactobacillus Acidophilus 500 MU Cap PO SCH ×2 (10:21→18:00)
[2017-04-08 11:49] LABS: BASO % 0.4 % (0.0-2.0); EOS # 0.1 K/uL (0.0-0.7); EOS % 1.9 % (0.0-4.0); HEMATOCRIT 34.2 % (35.0-51.0); LYMPH % 27.1 % (20.0-40.0); MEAN CELL VOLUME 79.4 fL (80.0-94.0); MEAN CORPUSCULAR HEMOGLOBIN 25.8 pg (27.0-31.0); MEAN CORPUSCULAR HGB CONC 32.5 g/dL (33.0-37.0); MEAN PLATELET VOLUME 8.2 fL (7.2-11.7); MONO # 0.5 K/uL (0.0-0.8); MONO % 6.3 % (0.0-10.0); RED CELL DISTRIBUTION WIDTH 16.5 % (11.5-14.5); WHITE BLOOD COUNT 7.3 K/uL (4.8-10.8)
[2017-04-08 12:13] LABS: CHLORIDE 102 mmol/L (98-107); POTASSIUM 3.7 mmol/L (3.6-5.2); SODIUM 134 mmol/L (132-148)
[2017-04-08 12:15] LABS: GFR AFRICAN-AMERICAN > 60
[2017-04-08 12:16] LABS: ALB/GLOB RATIO 0.8 (1.0-2.1); ALKALINE PHOSPHATASE 102 U/L (38-126); ALT/SGPT 38 U/L (21-72); AST/SGOT 22 U/L (17-59); BILIRUBIN,TOTAL 0.3 mg/dL (0.2-1.3); BLOOD UREA NITROGEN 14 mg/dL (9-20); CARBON DIOXIDE 24 mmol/L (22-30); GLUCOSE,RANDOM 85 mg/dL (75-110); TOTAL PROTEIN 6.4 g/dL (6.3-8.3)
[2017-04-08 12:17] LABS: CALCIUM 8.2 mg/dl (8.6-10.4)
--- NOTE | 2017-04-08 14:13 | CP.PCM.PN ---
<NiranjanrayDonovanroxie - Last Filed: 04/08/17 14:10> Subjective - Date & Time of Evaluation Date of Evaluation: 04/08/17 Time of Evaluation: 08:15 - Subjective Subjective: Patient has been seen and examined. No overnight events reported. He denies, fever, chills, SOB, chest pain, abdominal pain, changes in bowel habits, or urinary symptoms. Patient states a very small amount of pain on the right leg surgical site. He is asking about when he will get his prosthetic legs. Objective - Vital Signs/Intake and Output Vital Signs (last 24 hours): Temp Pulse Resp BP Pulse Ox 98.1 F 64 20 151/80 H 96 04/08/17 08:07 04/08/17 08:07 04/08/17 08:07 04/08/17 08:07 04/08/17 08:07 - Medications Medications: Current Medications Amiodarone HCl (Cordarone) 200 mg PO BID [facility] Last Admin: 04/08/17 10:06 Dose: 200 mg Bacitracin (Bacitracin) 0 gm TOP DAILY [facility] Last Admin: 04/08/17 10:07 Dose: 1 applic Docusate Sodium (Colace) 100 mg PO BID [facility] Last Admin: 04/08/17 10:06 Dose: 100 mg Gabapentin (Neurontin) 300 mg PO TID [facility] Last Admin: 04/08/17 14:05 Dose: 300 mg Lactobacillus Acidophilus (Bacid Acidophilus) 1 cap PO BID [facility] Stop: 04/14/17 18:00 Last Admin: 04/08/17 10:21 Dose: 1 cap Levetiracetam (Keppra) 500 mg PO BID [facility] Last Admin: 04/08/17 10:06 Dose: 500 mg Rosuvastatin Calcium (Crestor) 5 mg PO HS [facility] Last Admin: 04/07/17 22:00 Dose: 5 mg Vitamin A (Vitamin A & D Oint Ud Foilpak) 1 ea TOP BID [facility] Last Admin: 04/08/17 10:06 Dose: 1 ea - Labs Labs: 04/08/17 11:44 04/08/17 11:44 PT 47.0 SECONDS (9.7-12.2) H* 04/08/17 06:24 INR 4.0 04/08/17 06:24 APTT 38 SECONDS (21-34) H D 04/07/17 07:08 - Additional Findings Additional findings: - Constitutional Appears: Well, Non-toxic - Head Exam Head Exam: ATRAUMATIC, NORMAL INSPECTION, NORMOCEPHALIC - Eye Exam Eye Exam: EOMI, Normal appearance - ENT Exam ENT Exam: Mucous Membranes Moist - Neck Exam Neck Exam: absent: Lymphadenopathy - Respiratory Exam Respiratory Exam: Clear to Ausculation Bilateral, NORMAL BREATHING PATTERN. absent: Accessory Muscle Use - Cardiovascular Exam Cardiovascular Exam: +S1, +S2 - GI/Abdominal Exam GI & Abdominal Exam: Soft, Normal Bowel Sounds. absent: Tenderness, Organomegaly Additional comments: Surgical site wound in right inguinal region. Clean, dry, no dehiscence. - Extremities Exam Additional comments: B/L AKA. Surgical Site clean and dry w/o erythema. Small fluid collection and slightly tender to palpation. 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 He underwent bilateral thrombectomy on 02/05/17. The status of his bilateral lower legs worsened subsequently ( formation of bullae and sloughing of skin and these extremities cool to the touch and intense pain with minor palpation). Cultures from the bilateral lower legs revealed Serratia marcescens and Enterococcus faecalis. Blood Culture was positive for Bacillus species and Urine Cultures positive for Enterococcus faecalis. Because of the likelihood of sepsis, family decided on amputation. 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 Family has completed Medicaid Application and awaiting approval for TRENT placement. Plan: PAD S/P Bilateral AKA 03/04/17 Vascular Surgery (Dr. Kaur) on the case help appreciated Cardiology (Dr. Brown) on the case help appreciated Daily Coumadin (5 Given today) Goal INR is 2.5 to 3.[address] Brown Advised dietary and nurse patient will need to be on a vitamin K free- dark leafy greens free diet [place] removed Gabapentin 300 mg PO 3x/day PT recommends no OOB to chair yet due to core instability. Cough CXR 03/22/17: Interval appearance of heterogeneous opacity at the right lung base may represent pneumonia or atelectasis. Otherwise no interval change. Increase opacity noted when compared to 02/20/17 CXR Promethazine PRN Hx Malignant HTN (Stable) B/P running on the low end, continue to monitor. Patient is asymptomatic Held Metoprolol 100 mg PO Q12H in light of hypotension on 03/17; given fluid bolus on 03/17 Cardizem 360 mg PO 1x/day Cozaar 25 mg PO 1x/day Hx Sepsis--Resolved Secondary to gangrenous bilateral legs, +blood culture code sepsis called on 03/03 Urine Culture (03/03/17): Enterococcus Faecalis-->sensitive to Vancomycin and PCN Blood cultures (03/03/17): No growth at 5 days Urine culture (03/02/17): Enterococcus Faecalis Blood culture (03/02/17): Bacillus species Blood Culture (03/02/17): no growth after 5 days Leg Right and Left (03/02/17): Serratia Marcescens and Enterococcus Faecalis Repeat Blood Culture (03/07): Negative at 5 days Repeat Urine Culture (04/06): NO growth Patient was treated with Ampicillin and Rocephin through 03/11/17. He was switched to Ciprofloxicin on 03/11/17 and this was discontinued by ID on 03/13/17. Hx Atrial Fibrillation (Stable) Amiodarone 200 mg PO 2x/day held Metoprolol 100 mg PO Q12H secondary to hypotension Cardizem 360 mg PO 1x/day INR 4.0 today. Coumadin held today. INR elevates to much on 5mg. Patient should only get 3-4mg of Coumadin . Hx Seizure Disorder Because of Elevated LFTs his Dilantin was discontinued and Neurology Dr. Onesimo Hogan started him on Keppra 500 mg PO 2x/day Hx Multiple CVAs Crestor is being held considering the elevated LFTs and that his Lipid Profile is currently WNL. Repeat Lipid Panel in 1 month (Mid April) to see where we are with this. ASA 81 mg PO 1x/day Keep the blood pressure under control Hx Elevated LFTs-->resolved Could have been secondary to the Dilantin and the Crestor. The Crestor is being held and the Dilantin was switched over to Keppra. The LFTs have normalized as of 03/14/17 Hx Elevated WBC-->resolved Normalized Likely secondary to the Sepsis as mentioned above NO fevers Vitals are stable Hx Enlarged Prostate and Urinary Retention Proscar 5 mg PO 1x/day Flomax 0.4 mg PO 1x/day Patient had urinary retention on 03/20-->patient had urinary straight cath Anemia Likely Secondary to Chronic Disease HgB/Hct are stable Prophylaxis Colace 100 mg PO 2x/day Pepcid 20 mg PO 1x/day Bacid 1 cap PO 2x/day with STOP on 04/14/17 Zofran 4 mg IV Q6H PRN N/V DVT Prophylaxis: he is on coumadin (held today) Disposition: Patient is pending MED[employer] approval. Daughter requests for [facility] for for [facility]/Acute Rehab. She has been presented with several options by counter caser. Patient discussed with Attending Kat Qureshi - PGY-1 <Unruly Vines - Last Filed: 04/08/17 20:57> Objective - Vital Signs/Intake and Output Vital Signs (last 24 hours): Temp Pulse Resp BP Pulse Ox 98.1 F 64 20 154/79 H 98 04/08/17 15:00 04/08/17 15:00 04/08/17 15:00 04/08/17 15:00 04/08/17 15:00 - Medications Medications: Current Medications Amiodarone HCl (Cordarone) 200 mg PO BID [facility] Last Admin: 04/08/17 17:49 Dose: 200 mg Aspirin (Ecotrin) 81 mg PO DAILY [facility] Bacitracin (Bacitracin) 0 gm TOP DAILY [facility] Last Admin: 04/08/17 10:07 Dose: 1 applic Diltiazem HCl (Cardizem Cd) 360 mg PO DAILY [facility] Last Admin: 04/08/17 15:00 Dose: 360 mg Docusate Sodium (Colace) 100 mg PO BID [facility] Last Admin: 04/08/17 17:49 Dose: 100 mg Famotidine (Pepcid) 20 mg PO DAILY [facility] Last Admin: 04/08/17 14:23 Dose: 20 mg Finasteride (Proscar) 5 mg PO DAILY [facility] Last Admin: 04/08/17 14:23 Dose: 5 mg Gabapentin (Neurontin) 300 mg PO TID [facility] Last Admin: 04/08/17 17:48 Dose: 300 mg Lactobacillus Acidophilus (Bacid Acidophilus) 1 cap PO BID [facility] Stop: 04/14/17 18:00 Last Admin: 04/08/17 18:00 Dose: 1 cap Levetiracetam (Keppra) 500 mg PO BID [facility] Last Admin: 04/08/17 17:48 Dose: 500 mg Losartan Potassium (Cozaar) 25 mg PO DAILY [facility] Last Admin: 04/08/17 14:24 Dose: 25 mg Rosuvastatin Calcium (Crestor) 5 mg PO HS [facility] Last Admin: 04/07/17 22:00 Dose: 5 mg Tamsulosin HCl (Flomax) 0.4 mg PO DAILY [facility] Last Admin: 04/08/17 14:22 Dose: 0.4 mg Vitamin A (Vitamin A & D Oint Ud Foilpak) 1 ea TOP BID [facility] Last Admin: 04/08/17 17:49 Dose: 1 ea - Labs Labs: 04/08/17 11:44 04/08/17 11:44 PT 40.0 SECONDS (9.7-12.2) H* D 04/08/17 14:02 INR 3.4 04/08/17 14:02 APTT 38 SECONDS (21-34) H D 04/07/17 07:08 Attending/Attestation - Attestation I have personally seen and examined this patient.: Yes I have fully participated in the care of the patient.: Yes I have reviewed all pertinent clinical information, including history, physical exam and plan: Yes Notes (Text): 04/08/17 20:50 Patient was seen and examined at 2:45 PM 04/08/17 358 A Exam, assessment and plan were thoroughly gone over with the resident. Assessments and Plan: 1). PAD S/P Bilateral AKA 03/04/17 Holding Coumadin tonight as supratherapuetic and will need to be kept between 2.5 and 3.5 ASA 81 mg PO 1x/day Crestor 5 mg PO HS 2). Hx Malignant HTN Cardizem 360 mg PO 1x/day Cozaar 25 mg PO 1x/day Will add back Metoprolol 100 mg PO Q12H should the blood pressure not be under control 3). Hx Sepsis * Urine Culture (03/03/17): Enterococcus Faecalis-->sensitive to Vancomycin and PCN * Blood cultures (03/03/17): No growth at 5 days * Urine culture (03/02/17): Enterococcus Faecalis * Blood culture (03/02/17): Bacillus species * Blood Culture (03/02/17): no growth after 5 days * Leg Right and Left (03/02/17): Serratia Marcescens and Enterococcus Faecalis * Repeat Blood Culture (03/07): Negative at 5 days * Repeat Urine Culture (04/06): NO growth Patient was treated with Ampicillin and Rocephin through 03/11/17. He was switched to Ciprofloxicin on 03/11/17 and this was discontinued by ID on 03/13/17. 4). Hx Atrial Fibrillation Amiodarone 200 mg PO 2x/day Cardizem 360 mg PO 1x/day Heart rate is under control and will add back Metoprolol 100 mg PO Q12H should it start to rise again 5). Hx Seizure Disorder Because of Elevated LFTs his Dilantin was discontinued and Neurology Dr. Onesimo Hogan started him on Keppra 500 mg PO 2x/day 6). Hx Multiple CVAs Crestor 5 mg PO HS ASA 81 mg PO 1x/day Keep the blood pressure under control 7). Hx Elevated LFTs Could have been secondary to the Dilantin and the Crestor. Dilantin was switched to Keppra and the Crestor was held for a time but then restarted. The LFTs have remained normal. Monitor 8). Hx Elevated WBC Normalized Likely secondary to the Sepsis as mentioned above NO fevers Vitals are stable 9). Hx Enlarged Prostate and Urinary Retention Proscar 5 mg PO 1x/day Flomax 0.4 mg PO 1x/day 10). Anemia Likely Secondary to Chronic Disease HgB/Hct are stable 11). Prophylaxis Colace 100 mg PO 2x/day Pepcid 20 mg PO 1x/day Bacid 1 cap PO 2x/day with STOP on 04/14/17 DVT Prophylaxis: he is on coumadin Bacitracin to the Right AKA lateral surgical site (which currently does not show any evidence of cellulitis or drainage. Unruly Vines D.O.
[2017-04-08 14:36] LABS: INR 3.4
[2017-04-08] MEDS: diltiaZEM 180 mg/24 Hours CD Cap PO SCH (15:00)
[2017-04-09 08:36] LABS: BASO % 0.6 % (0.0-2.0); EOS # 0.2 K/uL (0.0-0.7); EOS % 2.3 % (0.0-4.0); HEMATOCRIT 34.7 % (35.0-51.0); LYMPH # 1.8 K/uL (1.0-4.3); MEAN CELL VOLUME 78.2 fL (80.0-94.0); MEAN CORPUSCULAR HEMOGLOBIN 26.4 pg (27.0-31.0); MEAN CORPUSCULAR HGB CONC 33.8 g/dL (33.0-37.0); MEAN PLATELET VOLUME 7.8 fL (7.2-11.7); MONO # 0.3 K/uL (0.0-0.8); MONO % 5.1 % (0.0-10.0); RED CELL DISTRIBUTION WIDTH 15.6 % (11.5-14.5); WHITE BLOOD COUNT 6.7 K/uL (4.8-10.8)
[2017-04-09 09:05] LABS: CHLORIDE 102 mmol/L (98-107); POTASSIUM 3.7 mmol/L (3.6-5.2); SODIUM 135 mmol/L (132-148)
[2017-04-09 09:07] LABS: BILIRUBIN,TOTAL 0.4 mg/dL (0.2-1.3); GFR AFRICAN-AMERICAN > 60
[2017-04-09 09:08] LABS: ALB/GLOB RATIO 0.8 (1.0-2.1); ALKALINE PHOSPHATASE 113 U/L (38-126); ALT/SGPT 27 U/L (21-72); AST/SGOT 20 U/L (17-59); BLOOD UREA NITROGEN 11 mg/dL (9-20); CALCIUM 8.6 mg/dl (8.6-10.4); CARBON DIOXIDE 26 mmol/L (22-30); GLUCOSE,RANDOM 72 mg/dL (75-110); TOTAL PROTEIN 6.6 g/dL (6.3-8.3)
[2017-04-09] MEDS: diltiaZEM 180 mg/24 Hours CD Cap PO SCH (09:35)
[2017-04-09] MEDS: Lactobacillus Acidophilus 500 MU Cap PO SCH ×2 (09:35→18:00)
[2017-04-09] MEDS: Vitamins A & D Oint UD Foilpak TOP SCH ×2 (09:35→17:37)
[2017-04-09] MEDS: Bacitracin Ointment 30 GM TUBE TOP SCH (09:46)
--- NOTE | 2017-04-09 10:32 | CP.PCM.PN ---
<Kat Qureshi - Last Filed: 04/09/17 11:18> Subjective - Date & Time of Evaluation Date of Evaluation: 04/09/17 Time of Evaluation: 10:27 - Subjective Subjective: Patient has been seen and examined. No overnight events reported. He denies, fever, chills, SOB, chest pain, abdominal pain, changes in bowel habits, or urinary symptoms. Patient states a very small amount of pain on the right leg surgical site. He is asking about when he will get his prosthetic legs. Objective - Vital Signs/Intake and Output Vital Signs (last 24 hours): Temp Pulse Resp BP Pulse Ox 98.5 F 60 20 150/68 97 04/09/17 08:00 04/09/17 08:00 04/09/17 08:00 04/09/17 08:00 04/09/17 08:00 Intake and Output: 04/09/17 04/09/17 06:59 18:59 Intake Total 240 Output Total 300 Balance -60 - Medications Medications: Current Medications Amiodarone HCl (Cordarone) 200 mg PO BID [facility] Last Admin: 04/09/17 09:34 Dose: 200 mg Aspirin (Ecotrin) 81 mg PO DAILY [facility] Last Admin: 04/09/17 09:34 Dose: 81 mg Bacitracin (Bacitracin) 0 gm TOP DAILY [facility] Last Admin: 04/09/17 09:46 Dose: 1 applic Diltiazem HCl (Cardizem Cd) 360 mg PO DAILY [facility] Last Admin: 04/09/17 09:35 Dose: 360 mg Docusate Sodium (Colace) 100 mg PO BID [facility] Last Admin: 04/09/17 09:34 Dose: 100 mg Famotidine (Pepcid) 20 mg PO DAILY [facility] Last Admin: 04/09/17 09:43 Dose: 20 mg Finasteride (Proscar) 5 mg PO DAILY [facility] Last Admin: 04/09/17 09:34 Dose: 5 mg Gabapentin (Neurontin) 300 mg PO TID [facility] Last Admin: 04/09/17 09:34 Dose: 300 mg Lactobacillus Acidophilus (Bacid Acidophilus) 1 cap PO BID [facility] Stop: 04/14/17 18:00 Last Admin: 04/09/17 09:35 Dose: 1 cap Levetiracetam (Keppra) 500 mg PO BID [facility] Last Admin: 04/09/17 09:34 Dose: 500 mg Losartan Potassium (Cozaar) 25 mg PO DAILY [facility] Last Admin: 04/09/17 09:34 Dose: 25 mg Rosuvastatin Calcium (Crestor) 5 mg PO HS [facility] Last Admin: 04/08/17 21:29 Dose: 5 mg Tamsulosin HCl (Flomax) 0.4 mg PO DAILY [facility] Last Admin: 04/09/17 09:34 Dose: 0.4 mg Vitamin A (Vitamin A & D Oint Ud Foilpak) 1 ea TOP BID [facility] Last Admin: 04/09/17 09:35 Dose: 1 ea - Labs Labs: 04/09/17 08:21 04/09/17 08:21 PT 40.0 SECONDS (9.7-12.2) H* D 04/08/17 14:02 INR 3.4 04/08/17 14:02 APTT 38 SECONDS (21-34) H D 04/07/17 07:08 Assessment and Plan - Assessment and Plan (Free Text) Assessment: Admitted on 02/04/17 for evaluation of severe left calf pain and 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 He underwent bilateral thrombectomy on 02/05/17. The status of his bilateral lower legs worsened subsequently ( formation of bullae and sloughing of skin and these extremities cool to the touch and intense pain with minor palpation). Cultures from the bilateral lower legs revealed Serratia marcescens and Enterococcus faecalis. Blood Culture was positive for Bacillus species and Urine Cultures positive for Enterococcus faecalis. Because of the likelihood of sepsis, family decided on amputation. 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 Family has completed Medicaid Application and awaiting approval for TRENT placement. Plan: PAD S/P Bilateral AKA 03/04/17 Vascular Surgery (Dr. Kaur) on the case help appreciated Cardiology (Dr. Brown) on the case help appreciated Daily Coumadin Goal INR is 2.5 to 3.[address] Brown Advised dietary and nurse patient will need to be on a vitamin K free- dark leafy greens free diet Gabapentin 300 mg PO 3x/day 04/07 PT states improvement of UE strenght. Core strength is unstable but he is able to use wheelchair. They recomend Continue PT and Acute Rehab Cough CXR 03/22/17: Interval appearance of heterogeneous opacity at the right lung base may represent pneumonia or atelectasis. Otherwise no interval change. Increase opacity noted when compared to 02/20/17 CXR Promethazine PRN Hx Malignant HTN (Stable) B/P running on the low end, continue to monitor. Patient is asymptomatic Held Metoprolol 100 mg PO Q12H in light of hypotension on 03/17; given fluid bolus on 03/17 Cardizem 360 mg PO 1x/day Cozaar 25 mg PO 1x/day Hx Sepsis--Resolved Secondary to gangrenous bilateral legs, +blood culture code sepsis called on 03/03 Urine Culture (03/03/17): Enterococcus Faecalis-->sensitive to Vancomycin and PCN Blood cultures (03/03/17): No growth at 5 days Urine culture (03/02/17): Enterococcus Faecalis Blood culture (03/02/17): Bacillus species Blood Culture (03/02/17): no growth after 5 days Leg Right and Left (03/02/17): Serratia Marcescens and Enterococcus Faecalis Repeat Blood Culture (03/07): Negative at 5 days Repeat Urine Culture (04/06): NO growth Patient was treated with Ampicillin and Rocephin through 03/11/17. He was switched to Ciprofloxicin on 03/11/17 and this was discontinued by ID on 03/13/17. Hx Atrial Fibrillation (Stable) Amiodarone 200 mg PO 2x/day held Metoprolol 100 mg PO Q12H secondary to hypotension Cardizem 360 mg PO 1x/day INR 3.4 today. Coumadin 3 Today. Hx Seizure Disorder Because of Elevated LFTs his Dilantin was discontinued and Neurology Dr. Onesimo Hogan started him on Keppra 500 mg PO 2x/day Hx Multiple CVAs Crestor is being held considering the elevated LFTs and that his Lipid Profile is currently WNL. Repeat Lipid Panel in 1 month (Mid April) to see where we are with this. ASA 81 mg PO 1x/day Keep the blood pressure under control Hx Elevated LFTs-->resolved Could have been secondary to the Dilantin and the Crestor. The Crestor is being held and the Dilantin was switched over to Keppra. The LFTs have normalized as of 03/14/17 Hx Elevated WBC-->resolved Normalized Likely secondary to the Sepsis as mentioned above NO fevers Vitals are stable Hx Enlarged Prostate and Urinary Retention Proscar 5 mg PO 1x/day Flomax 0.4 mg PO 1x/day Patient had urinary retention on 03/20-->patient had urinary straight cath Anemia Likely Secondary to Chronic Disease HgB/Hct are stable Prophylaxis Colace 100 mg PO 2x/day Pepcid 20 mg PO 1x/day Bacid 1 cap PO 2x/day with STOP on 04/14/17 Zofran 4 mg IV Q6H PRN N/V DVT Prophylaxis: Coumadin 3 toay. Disposition: Patient is pending [employer] approval. Daughter requests for [facility] for for TR[facility]/Acute Rehab. She has been presented with several options by telephonic case manager. Patient discussed with Attending Kat Qureshi - PGY-1 <Unruly Vinse - Last Filed: 04/09/17 20:29> Objective - Vital Signs/Intake and Output Vital Signs (last 24 hours): Temp Pulse Resp BP Pulse Ox 97.5 F L 51 L 20 121/68 98 04/09/17 15:00 04/09/17 15:00 04/09/17 15:00 04/09/17 15:00 04/09/17 15:00 Intake and Output: 04/09/17 04/10/17 18:59 06:59 Intake Total 300 Output Total 800 Balance -500 - Medications Medications: Current Medications Amiodarone HCl (Cordarone) 200 mg PO BID [facility] Last Admin: 04/09/17 17:35 Dose: 200 mg Aspirin (Ecotrin) 81 mg PO DAILY [facility] Last Admin: 04/09/17 09:34 Dose: 81 mg Bacitracin (Bacitracin) 0 gm TOP DAILY [facility] Last Admin: 04/09/17 09:46 Dose: 1 applic Diltiazem HCl (Cardizem Cd) 360 mg PO DAILY [facility] Last Admin: 04/09/17 09:35 Dose: 360 mg Docusate Sodium (Colace) 100 mg PO BID [facility] Last Admin: 04/09/17 17:35 Dose: 100 mg Famotidine (Pepcid) 20 mg PO DAILY [facility] Last Admin: 04/09/17 09:43 Dose: 20 mg Finasteride (Proscar) 5 mg PO DAILY [facility] Last Admin: 04/09/17 09:34 Dose: 5 mg Gabapentin (Neurontin) 300 mg PO TID [facility] Last Admin: 04/09/17 17:36 Dose: 300 mg Lactobacillus Acidophilus (Bacid Acidophilus) 1 cap PO BID [facility] Stop: 04/14/17 18:00 Last Admin: 04/09/17 09:35 Dose: 1 cap Levetiracetam (Keppra) 500 mg PO BID [facility] Last Admin: 04/09/17 17:35 Dose: 500 mg Losartan Potassium (Cozaar) 25 mg PO DAILY [facility] Last Admin: 04/09/17 09:34 Dose: 25 mg Rosuvastatin Calcium (Crestor) 5 mg PO HS [facility] Last Admin: 04/08/17 21:29 Dose: 5 mg Tamsulosin HCl (Flomax) 0.4 mg PO DAILY [facility] Last Admin: 04/09/17 09:34 Dose: 0.4 mg Vitamin A (Vitamin A & D Oint Ud Foilpak) 1 ea TOP BID [facility] Last Admin: 04/09/17 17:37 Dose: 1 ea - Labs Labs: 04/09/17 08:21 04/09/17 08:21 PT 28.6 SECONDS (9.7-12.2) H D 04/09/17 13:56 INR 2.4 D 04/09/17 13:56 APTT 38 SECONDS (21-34) H D 04/07/17 07:08 Attending/Attestation - Attestation I have personally seen and examined this patient.: Yes I have fully participated in the care of the patient.: Yes I have reviewed all pertinent clinical information, including history, physical exam and plan: Yes Notes (Text): 04/09/17 20:26 Patient was seen and examined at 10:15 AM 04/09/17 358 A Exam, assessment and plan were thoroughly gone over with the resident. Also Exam: NO signs of cellulitis/dehiscence in the bilateral AKA surgical sites and Bilateral Groin surgical sites Assessments and Plan: 1). PAD S/P Bilateral AKA 03/04/17 Coumadin 3 mg PO x 1 dose tonight INR will need to be kept between 2.5 and 3.5 ASA 81 mg PO 1x/day Crestor 5 mg PO HS 2). Hx Malignant HTN Cardizem 360 mg PO 1x/day Cozaar 25 mg PO 1x/day Will add back Metoprolol 100 mg PO Q12H should the blood pressure not be under control 3). Hx Sepsis * Urine Culture (03/03/17): Enterococcus Faecalis-->sensitive to Vancomycin and PCN * Blood cultures (03/03/17): No growth at 5 days * Urine culture (03/02/17): Enterococcus Faecalis * Blood culture (03/02/17): Bacillus species * Blood Culture (03/02/17): no growth after 5 days * Leg Right and Left (03/02/17): Serratia Marcescens and Enterococcus Faecalis * Repeat Blood Culture (03/07): Negative at 5 days * Repeat Urine Culture (04/06): NO growth Patient was treated with Ampicillin and Rocephin through 03/11/17. He was switched to Ciprofloxicin on 03/11/17 and this was discontinued by ID on 03/13/17. 4). Hx Atrial Fibrillation Amiodarone 200 mg PO 2x/day Cardizem 360 mg PO 1x/day Heart rate is under control and will add back Metoprolol 100 mg PO Q12H should it start to rise again 5). Hx Seizure Disorder Because of Elevated LFTs his Dilantin was discontinued and Neurology Dr. Onesimo Hogan started him on Keppra 500 mg PO 2x/day 6). Hx Multiple CVAs Crestor 5 mg PO HS ASA 81 mg PO 1x/day Keep the blood pressure under control 7). Hx Elevated LFTs Could have been secondary to the Dilantin and the Crestor. Dilantin was switched to Keppra and the Crestor was held for a time but then restarted. The LFTs have remained normal. Monitor 8). Hx Elevated WBC Normalized Likely secondary to the Sepsis as mentioned above NO fevers Vitals are stable 9). Hx Enlarged Prostate and Urinary Retention Proscar 5 mg PO 1x/day Flomax 0.4 mg PO 1x/day 10). Anemia Likely Secondary to Chronic Disease HgB/Hct are stable 11). Prophylaxis Colace 100 mg PO 2x/day Pepcid 20 mg PO 1x/day Bacid 1 cap PO 2x/day with STOP on 04/14/17 DVT Prophylaxis: he is on coumadin Bacitracin to the Right AKA lateral surgical site (which currently does not show any evidence of cellulitis or drainage) Unruly Vines D.O.
[2017-04-09 14:08] LABS: INR 2.4
[2017-04-10] MEDS: Vitamins A & D Oint UD Foilpak TOP SCH ×2 (11:06→18:00)
[2017-04-10] MEDS: Lactobacillus Acidophilus 500 MU Cap PO SCH ×2 (11:07→17:25)
[2017-04-10] MEDS: diltiaZEM 180 mg/24 Hours CD Cap PO SCH (11:07)
[2017-04-10] MEDS: Bacitracin Ointment 30 GM TUBE TOP SCH (11:08)
--- NOTE | 2017-04-10 11:35 | CP.PCM.PN ---
<Kat Qureshi - Last Filed: 04/10/17 16:41> Subjective - Date & Time of Evaluation Date of Evaluation: 04/10/17 Time of Evaluation: 11:33 - Subjective Subjective: Patient has been seen and examined. No overnight events reported. He denies, fever, chills, SOB, chest pain, abdominal pain, changes in bowel habits, or urinary symptoms. Patient states a very small amount of pain on the right leg surgical site. He is asking about when he will get his prosthetic legs. Objective - Vital Signs/Intake and Output Vital Signs (last 24 hours): Temp Pulse Resp BP Pulse Ox 99 F 64 20 132/69 98 04/10/17 07:35 04/10/17 07:35 04/10/17 07:35 04/10/17 07:35 04/10/17 07:35 Intake and Output: 04/10/17 04/10/17 06:59 18:59 Intake Total 580 Output Total 400 Balance 180 - Medications Medications: Current Medications Amiodarone HCl (Cordarone) 200 mg PO BID [facility] Last Admin: 04/10/17 11:06 Dose: 200 mg Aspirin (Ecotrin) 81 mg PO DAILY [facility] Last Admin: 04/10/17 11:05 Dose: 81 mg Bacitracin (Bacitracin) 0 gm TOP DAILY [facility] Last Admin: 04/10/17 11:08 Dose: 1 applic Diltiazem HCl (Cardizem Cd) 360 mg PO DAILY [facility] Last Admin: 04/10/17 11:07 Dose: 360 mg Docusate Sodium (Colace) 100 mg PO BID [facility] Last Admin: 04/10/17 11:06 Dose: 100 mg Famotidine (Pepcid) 20 mg PO DAILY [facility] Last Admin: 04/10/17 11:05 Dose: 20 mg Finasteride (Proscar) 5 mg PO DAILY [facility] Last Admin: 04/10/17 11:07 Dose: 5 mg Gabapentin (Neurontin) 300 mg PO TID [facility] Last Admin: 04/10/17 11:06 Dose: 300 mg Lactobacillus Acidophilus (Bacid Acidophilus) 1 cap PO BID [facility] Stop: 04/14/17 18:00 Last Admin: 04/10/17 11:07 Dose: 1 cap Levetiracetam (Keppra) 500 mg PO BID [facility] Last Admin: 04/10/17 11:06 Dose: 500 mg Losartan Potassium (Cozaar) 25 mg PO DAILY [facility] Last Admin: 04/10/17 11:06 Dose: 25 mg Rosuvastatin Calcium (Crestor) 5 mg PO HS [facility] Last Admin: 04/09/17 21:47 Dose: 5 mg Tamsulosin HCl (Flomax) 0.4 mg PO DAILY [facility] Last Admin: 04/10/17 11:05 Dose: 0.4 mg Vitamin A (Vitamin A & D Oint Ud Foilpak) 1 ea TOP BID [facility] Last Admin: 04/10/17 11:06 Dose: 1 ea - Labs Labs: 04/09/17 08:21 04/09/17 08:21 PT 28.6 SECONDS (9.7-12.2) H D 04/09/17 13:56 INR 2.4 D 04/09/17 13:56 APTT 38 SECONDS (21-34) H D 04/07/17 07:08 - Additional Findings Additional findings: - Constitutional Appears: Well, Non-toxic - Head Exam Head Exam: ATRAUMATIC, NORMAL INSPECTION, NORMOCEPHALIC - Eye Exam Eye Exam: EOMI, Normal appearance - ENT Exam ENT Exam: Mucous Membranes Moist - Neck Exam Neck Exam: absent: Lymphadenopathy - Respiratory Exam Respiratory Exam: Clear to Ausculation Bilateral, NORMAL BREATHING PATTERN. absent: Accessory Muscle Use - Cardiovascular Exam Cardiovascular Exam: +S1, +S2 - GI/Abdominal Exam GI & Abdominal Exam: Soft, Normal Bowel Sounds. absent: Tenderness, Organomegaly Additional comments: Surgical site wound in right inguinal region. Clean, dry, no dehiscence. - Extremities Exam Additional comments: B/L AKA. Surgical Site clean and dry w/o erythema. Small fluid collection and slightly tender to palpation. Right Stump w/ wound dressing. 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 He underwent bilateral thrombectomy on 02/05/17. The status of his bilateral lower legs worsened subsequently ( formation of bullae and sloughing of skin and these extremities cool to the touch and intense pain with minor palpation). Cultures from the bilateral lower legs revealed Serratia marcescens and Enterococcus faecalis. Blood Culture was positive for Bacillus species and Urine Cultures positive for Enterococcus faecalis. Because of the likelihood of sepsis, family decided on amputation. 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 Family has completed Medicaid Application and awaiting approval for TRENT placement. Plan: PAD S/P Bilateral AKA 03/04/17 Vascular Surgery (Dr. Kaur) on the case help appreciated Cardiology (Dr. Brown) on the case help appreciated Daily Coumadin Goal INR is 2.5 to 3.[address] Brown Advised dietary and nurse patient will need to be on a vitamin K free- dark leafy greens free diet Gabapentin 300 mg PO 3x/day 04/07 PT states improvement of UE strenght. Core strength is unstable but he is able to use wheelchair. They recomend Continue PT and Acute Rehab Cough CXR 03/22/17: Interval appearance of heterogeneous opacity at the right lung base may represent pneumonia or atelectasis. Otherwise no interval change. Increase opacity noted when compared to 02/20/17 CXR Promethazine PRN Hx Malignant HTN (Stable) B/P running on the low end, continue to monitor. Patient is asymptomatic Held Metoprolol 100 mg PO Q12H in light of hypotension on 03/17; given fluid bolus on 03/17 Cardizem 360 mg PO 1x/day Cozaar 25 mg PO 1x/day Hx Sepsis--Resolved Secondary to gangrenous bilateral legs, +blood culture code sepsis called on 03/03 Urine Culture (03/03/17): Enterococcus Faecalis-->sensitive to Vancomycin and PCN Blood cultures (03/03/17): No growth at 5 days Urine culture (03/02/17): Enterococcus Faecalis Blood culture (03/02/17): Bacillus species Blood Culture (03/02/17): no growth after 5 days Leg Right and Left (03/02/17): Serratia Marcescens and Enterococcus Faecalis Repeat Blood Culture (03/07): Negative at 5 days Repeat Urine Culture (04/06): NO growth Patient was treated with Ampicillin and Rocephin through 03/11/17. He was switched to Ciprofloxicin on 03/11/17 and this was discontinued by ID on 03/13/17. Hx Atrial Fibrillation (Stable) Amiodarone 200 mg PO 2x/day held Metoprolol 100 mg PO Q12H secondary to hypotension Cardizem 360 mg PO 1x/day INR 2.5 yesterday . Coumadin 3 Today. Hx Seizure Disorder Because of Elevated LFTs his Dilantin was discontinued and Neurology Dr. Onesimo oHgan started him on Keppra 500 mg PO 2x/day Hx Multiple CVAs Crestor is being held considering the elevated LFTs and that his Lipid Profile is currently WNL. Repeat Lipid Panel in 1 month (Mid April) to see where we are with this. ASA 81 mg PO 1x/day Keep the blood pressure under control Hx Elevated LFTs-->resolved Could have been secondary to the Dilantin and the Crestor. The Crestor is being held and the Dilantin was switched over to Keppra. The LFTs have normalized as of 03/14/17 Hx Elevated WBC-->resolved Normalized Likely secondary to the Sepsis as mentioned above NO fevers Vitals are stable Hx Enlarged Prostate and Urinary Retention Proscar 5 mg PO 1x/day Flomax 0.4 mg PO 1x/day Patient had urinary retention on 03/20-->patient had urinary straight cath Anemia Likely Secondary to Chronic Disease HgB/Hct are stable Prophylaxis Colace 100 mg PO 2x/day Pepcid 20 mg PO 1x/day Bacid 1 cap PO 2x/day with STOP on 04/14/17 Zofran 4 mg IV Q6H PRN N/V DVT Prophylaxis: Coumadin Daily Disposition: Patient is pending [employer] approval. Daughter requests for [facility] for for TR[facility]/Acute Rehab. She has been presented with several options by transplant case manager. Patient should only get Thursday and bloodwork for now on. Patient discussed with Attending Kat Qureshi - PGY-1 <Unruly Vines - Last Filed: 04/10/17 17:13> Objective - Vital Signs/Intake and Output Vital Signs (last 24 hours): Temp Pulse Resp BP Pulse Ox 98.5 F 52 L 20 109/64 98 04/10/17 15:00 04/10/17 15:00 04/10/17 15:00 04/10/17 15:00 04/10/17 15:00 Intake and Output: 04/10/17 04/10/17 06:59 18:59 Intake Total 580 Output Total 400 Balance 180 - Medications Medications: Current Medications Amiodarone HCl (Cordarone) 200 mg PO BID [facility] Last Admin: 04/10/17 11:06 Dose: 200 mg Aspirin (Ecotrin) 81 mg PO DAILY [facility] Last Admin: 04/10/17 11:05 Dose: 81 mg Bacitracin (Bacitracin) 0 gm TOP DAILY [facility] Last Admin: 04/10/17 11:08 Dose: 1 applic Diltiazem HCl (Cardizem Cd) 360 mg PO DAILY [facility] Last Admin: 04/10/17 11:07 Dose: 360 mg Docusate Sodium (Colace) 100 mg PO BID [facility] Last Admin: 04/10/17 11:06 Dose: 100 mg Famotidine (Pepcid) 20 mg PO DAILY [facility] Last Admin: 04/10/17 11:05 Dose: 20 mg Finasteride (Proscar) 5 mg PO DAILY [facility] Last Admin: 04/10/17 11:07 Dose: 5 mg Gabapentin (Neurontin) 300 mg PO TID [facility] Last Admin: 04/10/17 14:01 Dose: 300 mg Lactobacillus Acidophilus (Bacid Acidophilus) 1 cap PO BID [facility] Stop: 04/14/17 18:00 Last Admin: 04/10/17 11:07 Dose: 1 cap Levetiracetam (Keppra) 500 mg PO BID [facility] Last Admin: 04/10/17 11:06 Dose: 500 mg Losartan Potassium (Cozaar) 25 mg PO DAILY [facility] Last Admin: 04/10/17 11:06 Dose: 25 mg Rosuvastatin Calcium (Crestor) 5 mg PO HS [facility] Last Admin: 04/09/17 21:47 Dose: 5 mg Tamsulosin HCl (Flomax) 0.4 mg PO DAILY [facility] Last Admin: 04/10/17 11:05 Dose: 0.4 mg Vitamin A (Vitamin A & D Oint Ud Foilpak) 1 ea TOP BID [facility] Last Admin: 04/10/17 11:06 Dose: 1 ea Warfarin Sodium (Coumadin) 3 mg PO 1800 [facility] Stop: 04/10/17 18:01 Zolpidem Tartrate (Ambien) 5 mg PO HS PRN PRN Reason: Insomnia - Labs Labs: 04/10/17 12:47 04/10/17 12:47 PT 27.6 SECONDS (9.7-12.2) H 04/10/17 12:47 INR 2.4 04/10/17 12:47 APTT 38 SECONDS (21-34) H D 04/07/17 07:08 Attending/Attestation - Attestation I have personally seen and examined this patient.: Yes I have fully participated in the care of the patient.: Yes I have reviewed all pertinent clinical information, including history, physical exam and plan: Yes Notes (Text): 04/10/17 17:09 Patient was seen and examined at 1:15 PM 04/10/17 358 A Exam, assessment and plan were thoroughly gone over with the resident. Also Exam: NO signs of cellulitis/dehiscence in the bilateral AKA surgical sites and Bilateral Groin surgical sites Assessments and Plan: 1). PAD S/P Bilateral AKA 03/04/17 Coumadin 3 mg PO x 1 dose tonight INR will need to be kept between 2.5 and 3.5 ASA 81 mg PO 1x/day Crestor 5 mg PO HS 2). Hx Malignant HTN Cardizem 360 mg PO 1x/day Cozaar 25 mg PO 1x/day Will add back Metoprolol 100 mg PO Q12H should the blood pressure not be under control 3). Hx Sepsis * Urine Culture (03/03/17): Enterococcus Faecalis-->sensitive to Vancomycin and PCN * Blood cultures (03/03/17): No growth at 5 days * Urine culture (03/02/17): Enterococcus Faecalis * Blood culture (03/02/17): Bacillus species * Blood Culture (03/02/17): no growth after 5 days * Leg Right and Left (03/02/17): Serratia Marcescens and Enterococcus Faecalis * Repeat Blood Culture (03/07): Negative at 5 days * Repeat Urine Culture (04/06): NO growth Patient was treated with Ampicillin and Rocephin through 03/11/17. He was switched to Ciprofloxicin on 03/11/17 and this was discontinued by ID on 03/13/17. 4). Hx Atrial Fibrillation Amiodarone 200 mg PO 2x/day Cardizem 360 mg PO 1x/day Heart rate is under control and will add back Metoprolol 100 mg PO Q12H should it start to rise again 5). Hx Seizure Disorder Because of Elevated LFTs his Dilantin was discontinued and Neurology Dr. Onesimo Hogan started him on Keppra 500 mg PO 2x/day 6). Hx Multiple CVAs Crestor 5 mg PO HS ASA 81 mg PO 1x/day Keep the blood pressure under control 7). Hx Elevated LFTs Could have been secondary to the Dilantin and the Crestor. Dilantin was switched to Keppra and the Crestor was held for a time but then restarted. The LFTs have remained normal. Monitor 8). Hx Elevated WBC Normalized Likely secondary to the Sepsis as mentioned above NO fevers Vitals are stable 9). Hx Enlarged Prostate and Urinary Retention Proscar 5 mg PO 1x/day Flomax 0.4 mg PO 1x/day 10). Anemia Likely Secondary to Chronic Disease HgB/Hct are stable 11). Prophylaxis Colace 100 mg PO 2x/day Pepcid 20 mg PO 1x/day Bacid 1 cap PO 2x/day with STOP on 04/14/17 DVT Prophylaxis: he is on coumadin Bacitracin to the Right AKA lateral surgical site (which currently does not show any evidence of cellulitis or drainage) Ambien 5 mg PO x 1 dose tonight 04/10/17 to see how patient does with sleep as he stated that he was not sleeping well. Order placed to bath patient as the patient requested this It is recommended that the Medicine Team only perform blood work on Mondays and and INRs daily until stable between 2.5 and 3.5. I spoke with Life Skills Consultant Nico and was informed that patient's Medicaid was approved. However Medicaid dose not cover TRENT but does cover Care Home Placment which Daughter Pura does not want for patient. Life Skills Consultant Nico is working towards placing patient in [facility] with the option for family to take patient home should they change their minds. Unurly Vines D.O.
[2017-04-10 11:57] LABS: BASO % 0.1 % (0.0-2.0); EOS # 0.1 K/uL (0.0-0.7); EOS % 0.7 % (0.0-4.0); HEMATOCRIT 33.5 % (35.0-51.0); LYMPH # 1.8 K/uL (1.0-4.3); LYMPH % 16.5 % (20.0-40.0); MEAN CELL VOLUME 78.1 fL (80.0-94.0); MEAN CORPUSCULAR HEMOGLOBIN 26.4 pg (27.0-31.0); MEAN CORPUSCULAR HGB CONC 33.7 g/dL (33.0-37.0); MEAN PLATELET VOLUME 7.7 fL (7.2-11.7); MONO # 0.5 K/uL (0.0-0.8); MONO % 4.8 % (0.0-10.0); RED CELL DISTRIBUTION WIDTH 15.6 % (11.5-14.5); WHITE BLOOD COUNT 10.9 K/uL (4.8-10.8)
[2017-04-10 12:03] LABS: INR 2.5
[2017-04-10 12:18] LABS: CHLORIDE 100 mmol/L (98-107); POTASSIUM 3.6 mmol/L (3.6-5.2); SODIUM 132 mmol/L (132-148)
[2017-04-10 12:20] LABS: ALB/GLOB RATIO 1.1 (1.0-2.1); ALKALINE PHOSPHATASE 92 U/L (38-126); ALT/SGPT 32 U/L (21-72); AST/SGOT 17 U/L (17-59); BILIRUBIN,TOTAL 0.5 mg/dL (0.2-1.3); BLOOD UREA NITROGEN 13 mg/dL (9-20); CARBON DIOXIDE 24 mmol/L (22-30); GFR AFRICAN-AMERICAN > 60; TOTAL PROTEIN 5.1 g/dL (6.3-8.3)
[2017-04-10 12:21] LABS: CALCIUM 7.7 mg/dl (8.6-10.4); GLUCOSE,RANDOM 110 mg/dL (75-110)
[2017-04-10 12:54] LABS: BASO % 0.2 % (0.0-2.0); EOS # 0.1 K/uL (0.0-0.7); EOS % 0.9 % (0.0-4.0); HEMATOCRIT 34.1 % (35.0-51.0); LYMPH % 19.4 % (20.0-40.0); MEAN CELL VOLUME 79.2 fL (80.0-94.0); MEAN CORPUSCULAR HEMOGLOBIN 26.1 pg (27.0-31.0); MEAN CORPUSCULAR HGB CONC 32.9 g/dL (33.0-37.0); MEAN PLATELET VOLUME 7.4 fL (7.2-11.7); MONO # 0.6 K/uL (0.0-0.8); MONO % 5.7 % (0.0-10.0); NRBC % 0.1 % (0.0-2.0); RED CELL DISTRIBUTION WIDTH 16.2 % (11.5-14.5); WHITE BLOOD COUNT 10.3 K/uL (4.8-10.8)
[2017-04-10 13:00] LABS: CHLORIDE 101 mmol/L (98-107)
[2017-04-10 13:01] LABS: SODIUM 131 mmol/L (132-148)
[2017-04-10 13:02] LABS: POTASSIUM 3.7 mmol/L (3.6-5.2)
[2017-04-10 13:03] LABS: ALB/GLOB RATIO 1.1 (1.0-2.1); AST/SGOT 21 U/L (17-59); BILIRUBIN,TOTAL 0.6 mg/dL (0.2-1.3); BLOOD UREA NITROGEN 13 mg/dL (9-20); CARBON DIOXIDE 22 mmol/L (22-30); GFR AFRICAN-AMERICAN > 60; TOTAL PROTEIN 5.1 g/dL (6.3-8.3)
[2017-04-10 13:04] LABS: ALKALINE PHOSPHATASE 95 U/L (38-126); ALT/SGPT 32 U/L (21-72); CALCIUM 7.6 mg/dl (8.6-10.4); GLUCOSE,RANDOM 90 mg/dL (75-110)
[2017-04-10 13:08] LABS: INR 2.4
[2017-04-11] MEDS: Bacitracin Ointment 30 GM TUBE TOP SCH (10:32)
[2017-04-11] MEDS: diltiaZEM 180 mg/24 Hours CD Cap PO SCH (10:33)
[2017-04-11] MEDS: Vitamins A & D Oint UD Foilpak TOP SCH ×2 (10:36→18:40)
[2017-04-11 14:38] LABS: INR 2.1
[2017-04-11] MEDS: Lactobacillus Acidophilus 500 MU Cap PO SCH ×2 (15:33→21:26)
--- NOTE | 2017-04-11 15:34 | CP.PCM.PN ---
<Kat Qureshi - Last Filed: 04/11/17 15:31> Subjective - Date & Time of Evaluation Date of Evaluation: 04/11/17 Time of Evaluation: 11:00 - Subjective Subjective: Patient has been seen and examined. No overnight events reported. He denies, fever, chills, SOB, chest pain, abdominal pain, changes in bowel habits, or urinary symptoms. Patient states a very small amount of pain on the right leg surgical site. Patient did say he feels a little bit congested and thinks that he is getting the flu. He also wanted to make sure his daughter is updated on his progress. Objective - Vital Signs/Intake and Output Vital Signs (last 24 hours): Temp Pulse Resp BP Pulse Ox 98.9 F 60 20 136/65 97 04/11/17 07:18 04/11/17 07:18 04/11/17 07:18 04/11/17 07:18 04/11/17 07:18 Intake and Output: 04/11/17 04/11/17 06:59 18:59 Intake Total 240 Output Total 300 Balance -60 - Medications Medications: Current Medications Amiodarone HCl (Cordarone) 200 mg PO BID [facility] Last Admin: 04/10/17 17:27 Dose: 200 mg Aspirin (Ecotrin) 81 mg PO DAILY [facility] Last Admin: 04/10/17 11:05 Dose: 81 mg Bacitracin (Bacitracin) 0 gm TOP DAILY [facility] Last Admin: 04/10/17 11:08 Dose: 1 applic Diltiazem HCl (Cardizem Cd) 360 mg PO DAILY [facility] Last Admin: 04/10/17 11:07 Dose: 360 mg Docusate Sodium (Colace) 100 mg PO BID [facility] Last Admin: 04/10/17 17:27 Dose: 100 mg Famotidine (Pepcid) 20 mg PO DAILY [facility] Last Admin: 04/10/17 11:05 Dose: 20 mg Finasteride (Proscar) 5 mg PO DAILY [facility] Last Admin: 04/10/17 11:07 Dose: 5 mg Gabapentin (Neurontin) 300 mg PO TID [facility] Last Admin: 04/10/17 17:24 Dose: 300 mg Lactobacillus Acidophilus (Bacid Acidophilus) 1 cap PO BID [facility] Stop: 04/14/17 18:00 Last Admin: 04/10/17 17:25 Dose: 1 cap Levetiracetam (Keppra) 500 mg PO BID [facility] Last Admin: 04/10/17 17:25 Dose: 500 mg Losartan Potassium (Cozaar) 25 mg PO DAILY [facility] Last Admin: 04/10/17 11:06 Dose: 25 mg Rosuvastatin Calcium (Crestor) 5 mg PO HS [facility] Last Admin: 04/10/17 21:10 Dose: 5 mg Tamsulosin HCl (Flomax) 0.4 mg PO DAILY [facility] Last Admin: 04/10/17 11:05 Dose: 0.4 mg Vitamin A (Vitamin A & D Oint Ud Foilpak) 1 ea TOP BID [facility] Last Admin: 04/10/17 18:00 Dose: 1 ea Warfarin Sodium (Coumadin) 3 mg PO 1800 [facility] Stop: 04/11/17 18:01 Zolpidem Tartrate (Ambien) 5 mg PO HS [facility] - Labs Labs: 04/10/17 12:47 04/10/17 12:47 PT 23.6 SECONDS (9.7-12.2) H 04/11/17 14:23 INR 2.1 04/11/17 14:23 APTT 38 SECONDS (21-34) H D 04/07/17 07:08 - Additional Findings Additional findings: - Constitutional Appears: Well, Non-toxic - Head Exam Head Exam: ATRAUMATIC, NORMAL INSPECTION, NORMOCEPHALIC - Eye Exam Eye Exam: EOMI, Normal appearance - ENT Exam ENT Exam: Mucous Membranes Moist - Neck Exam Neck Exam: absent: Lymphadenopathy - Respiratory Exam Respiratory Exam: Clear to Ausculation Bilateral, NORMAL BREATHING PATTERN. absent: Accessory Muscle Use - Cardiovascular Exam Cardiovascular Exam: +S1, +S2 - GI/Abdominal Exam GI & Abdominal Exam: Soft, Normal Bowel Sounds. absent: Tenderness, Organomegaly Additional comments: Surgical site wound in right inguinal region. Clean, dry, no dehiscence. - Extremities Exam Additional comments: B/L AKA. Surgical Site clean and dry w/o erythema. Small fluid collection and slightly tender to palpation. Right Stump w/ wound dressing. 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 He underwent bilateral thrombectomy on 02/05/17. The status of his bilateral lower legs worsened subsequently ( formation of bullae and sloughing of skin and these extremities cool to the touch and intense pain with minor palpation). Cultures from the bilateral lower legs revealed Serratia marcescens and Enterococcus faecalis. Blood Culture was positive for Bacillus species and Urine Cultures positive for Enterococcus faecalis. Because of the likelihood of sepsis, family decided on amputation. 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 Family has completed Medicaid Application and awaiting approval for [facility]ENT placement. Plan: PAD S/P Bilateral AKA 03/04/17 Vascular Surgery (Dr. Kaur) on the case help appreciated Cardiology (Dr. Brown) on the case help appreciated Daily Coumadin Goal INR is 2.5 to 3.[address] Brown Advised dietary and nurse patient will need to be on a vitamin K free- dark leafy greens free diet Gabapentin 300 mg PO 3x/day 04/07 PT states improvement of UE strenght. Core strength is unstable but he is able to use wheelchair. They recomend Continue PT and Acute Rehab Insomnia Ambien 5 HS Cough CXR 03/22/17: Interval appearance of heterogeneous opacity at the right lung base may represent pneumonia or atelectasis. Otherwise no interval change. Increase opacity noted when compared to 02/20/17 CXR Promethazine PRN Hx Malignant HTN (Stable) B/P running on the low end, continue to monitor. Patient is asymptomatic Held Metoprolol 100 mg PO Q12H in light of hypotension on 03/17; given fluid bolus on 03/17 Cardizem 360 mg PO 1x/day Cozaar 25 mg PO 1x/day Hx Sepsis--Resolved Secondary to gangrenous bilateral legs, +blood culture code sepsis called on 03/03 Urine Culture (03/03/17): Enterococcus Faecalis-->sensitive to Vancomycin and PCN Blood cultures (03/03/17): No growth at 5 days Urine culture (03/02/17): Enterococcus Faecalis Blood culture (03/02/17): Bacillus species Blood Culture (03/02/17): no growth after 5 days Leg Right and Left (03/02/17): Serratia Marcescens and Enterococcus Faecalis Repeat Blood Culture (03/07): Negative at 5 days Repeat Urine Culture (04/06): NO growth Patient was treated with Ampicillin and Rocephin through 03/11/17. He was switched to Ciprofloxicin on 03/11/17 and this was discontinued by ID on 03/13/17. Hx Atrial Fibrillation (Stable) Amiodarone 200 mg PO 2x/day held Metoprolol 100 mg PO Q12H secondary to hypotension Cardizem 360 mg PO 1x/day INR 2.1 today . Coumadin 3 Today. Hx Seizure Disorder Because of Elevated LFTs his Dilantin was discontinued and Neurology Dr. Onesimo Hogan started him on Keppra 500 mg PO 2x/day Hx Multiple CVAs Crestor is being held considering the elevated LFTs and that his Lipid Profile is currently WNL. Repeat Lipid Panel in 1 month (Mid April) to see where we are with this. ASA 81 mg PO 1x/day Keep the blood pressure under control Hx Elevated LFTs-->resolved Could have been secondary to the Dilantin and the Crestor. The Crestor is being held and the Dilantin was switched over to Keppra. The LFTs have normalized as of 03/14/17 Hx Elevated WBC-->resolved Normalized Likely secondary to the Sepsis as mentioned above NO fevers Vitals are stable Hx Enlarged Prostate and Urinary Retention Proscar 5 mg PO 1x/day Flomax 0.4 mg PO 1x/day Patient had urinary retention on 03/20-->patient had urinary straight cath Anemia Likely Secondary to Chronic Disease HgB/Hct are stable Prophylaxis Colace 100 mg PO 2x/day Pepcid 20 mg PO 1x/day Bacid 1 cap PO 2x/day with STOP on 04/14/17 Zofran 4 mg IV Q6H PRN N/V DVT Prophylaxis: Coumadin Daily Disposition: Medicaid has been approved. [facility]. She has been presented with several options by high risk case manager. Patient should only get Thursday and bloodwork for now on. Patient discussed with Attending Kat Qureshi - PGY-1 <Unruly Vines - Last Filed: 04/11/17 18:59> Objective - Vital Signs/Intake and Output Vital Signs (last 24 hours): Temp Pulse Resp BP Pulse Ox 98.4 F 60 20 163/71 H 63 L 04/11/17 16:00 04/11/17 16:00 04/11/17 16:00 04/11/17 17:54 04/11/17 17:54 Intake and Output: 04/11/17 04/11/17 06:59 18:59 Intake Total 240 Output Total 300 Balance -60 - Medications Medications: Current Medications Amiodarone HCl (Cordarone) 200 mg PO BID [facility] Last Admin: 04/11/17 15:33 Dose: 200 mg Aspirin (Ecotrin) 81 mg PO DAILY [facility] Last Admin: 04/11/17 15:34 Dose: 81 mg Bacitracin (Bacitracin) 0 gm TOP DAILY [facility] Last Admin: 04/11/17 10:32 Dose: 1 applic Diltiazem HCl (Cardizem Cd) 360 mg PO DAILY [facility] Last Admin: 04/11/17 10:33 Dose: 360 mg Docusate Sodium (Colace) 100 mg PO BID [facility] Last Admin: 04/11/17 18:40 Dose: 100 mg Famotidine (Pepcid) 20 mg PO DAILY [facility] Last Admin: 04/11/17 10:35 Dose: 20 mg Finasteride (Proscar) 5 mg PO DAILY [facility] Last Admin: 04/11/17 10:36 Dose: 5 mg Gabapentin (Neurontin) 300 mg PO TID [facility] Last Admin: 04/11/17 18:40 Dose: 300 mg Lactobacillus Acidophilus (Bacid Acidophilus) 1 cap PO BID [facility] Stop: 04/14/17 18:00 Last Admin: 04/11/17 15:33 Dose: 1 cap Levetiracetam (Keppra) 500 mg PO BID [facility] Last Admin: 04/11/17 15:34 Dose: 500 mg Losartan Potassium (Cozaar) 25 mg PO DAILY [facility] Last Admin: 04/11/17 10:33 Dose: 25 mg Rosuvastatin Calcium (Crestor) 5 mg PO HS [facility] Last Admin: 04/10/17 21:10 Dose: 5 mg Tamsulosin HCl (Flomax) 0.4 mg PO DAILY [facility] Last Admin: 04/11/17 10:34 Dose: 0.4 mg Vitamin A (Vitamin A & D Oint Ud Foilpak) 1 ea TOP BID [facility] Last Admin: 04/11/17 18:40 Dose: 1 ea Zolpidem Tartrate (Ambien) 5 mg PO HS [facility] - Labs Labs: 04/10/17 12:47 04/10/17 12:47 PT 23.6 SECONDS (9.7-12.2) H 04/11/17 14:23 INR 2.1 04/11/17 14:23 APTT 38 SECONDS (21-34) H D 04/07/17 07:08 Attending/Attestation - Attestation I have personally seen and examined this patient.: Yes I have fully participated in the care of the patient.: Yes I have reviewed all pertinent clinical information, including history, physical exam and plan: Yes Notes (Text): 04/11/17 18:55 Patient was seen and examined at 1:45 PM 04/11/17 358 A with Daughter Pura present Exam, assessment and plan were thoroughly gone over with the resident. Upon FULL ROS: Having trouble sleeping Also on Exam: NO signs of cellulitis/dehiscence in the bilateral AKA surgical sites and Bilateral Groin surgical sites HEENT, Cardio, Respiratory, GI, Neuro exams were unremarkable Assessments and Plan: 1). PAD S/P Bilateral AKA 03/04/17 Coumadin 3 mg PO x 1 dose tonight INR will need to be kept between 2.5 and 3.5 ASA 81 mg PO 1x/day Crestor 5 mg PO HS 2). Hx Malignant HTN Cardizem 360 mg PO 1x/day Cozaar 25 mg PO 1x/day Will add back Metoprolol 100 mg PO Q12H should the blood pressure not be under control 3). Hx Sepsis * Urine Culture (03/03/17): Enterococcus Faecalis-->sensitive to Vancomycin and PCN * Blood cultures (03/03/17): No growth at 5 days * Urine culture (03/02/17): Enterococcus Faecalis * Blood culture (03/02/17): Bacillus species * Blood Culture (03/02/17): no growth after 5 days * Leg Right and Left (03/02/17): Serratia Marcescens and Enterococcus Faecalis * Repeat Blood Culture (03/07): Negative at 5 days * Repeat Urine Culture (04/06): NO growth Patient was treated with Ampicillin and Rocephin through 03/11/17. He was switched to Ciprofloxicin on 03/11/17 and this was discontinued by ID on 03/13/17. 4). Hx Atrial Fibrillation Amiodarone 200 mg PO 2x/day Cardizem 360 mg PO 1x/day Heart rate is under control and will add back Metoprolol 100 mg PO Q12H should it start to rise again 5). Hx Seizure Disorder Because of Elevated LFTs his Dilantin was discontinued and Neurology Dr. Onesimo Hogan started him on Keppra 500 mg PO 2x/day 6). Hx Multiple CVAs Crestor 5 mg PO HS ASA 81 mg PO 1x/day Keep the blood pressure under control 7). Hx Elevated LFTs Could have been secondary to the Dilantin and the Crestor. Dilantin was switched to Keppra and the Crestor was held for a time but then restarted. The LFTs have remained normal. Monitor 8). Hx Elevated WBC Normalized Likely secondary to the Sepsis as mentioned above NO fevers Vitals are stable 9). Hx Enlarged Prostate and Urinary Retention Proscar 5 mg PO 1x/day Flomax 0.4 mg PO 1x/day 10). Anemia Likely Secondary to Chronic Disease HgB/Hct are stable 11). Prophylaxis Colace 100 mg PO 2x/day Pepcid 20 mg PO 1x/day Bacid 1 cap PO 2x/day with STOP on 04/14/17 DVT Prophylaxis: he is on coumadin Bacitracin to the Right AKA lateral surgical site (which currently does not show any evidence of cellulitis or drainage) Ambien 5 mg PO x 1 dose tonight 04/10/17 to see how patient does with sleep as he stated that he was not sleeping well. Order placed to bath patient as the patient requested this It is recommended that the Medicine Team only perform blood work on Mondays and and INRs daily until stable between 2.5 and 3.5. I spoke with [facility] Intern Nico and was informed that patient's Medicaid was approved. However Medicaid dose not cover TRENT but does cover English Teacher Placement which Daughter Pura has been resistent to. I spoke with Pura and she is agreeable for [facility] after she visited this facility on 04/10/17 and after learning that they offered help with Prosthesis for the legs. Qa Intern Andrea is working towards placing patient in [facility] English Teacher [facility] with the option for family to take patient home should they change their minds. Unruly Vines D.O.
--- NOTE | 2017-04-12 02:04 | CP.PCM.PN ---
<Eloisa Crowe - Last Filed: 04/12/17 01:59 EST> Subjective - Date & Time of Evaluation Date of Evaluation: 04/12/17 Time of Evaluation: 01:59 - Subjective Subjective: Medicine note for Dr. Vines Patient seen and examined at bedside. Patient resting comfortably in bed with no new complaints at this time. Patient is having some mild pain in his right leg but otherwise denies fever, chills, SOB, chest pain, abdominal pain, changes in bowel habits, or urinary symptoms. Objective - Vital Signs/Intake and Output Vital Signs (last 24 hours): Temp Pulse Resp BP Pulse Ox 97.4 F L 63 20 160/80 H 98 04/11/17 23:43 04/11/17 23:43 04/11/17 23:43 04/11/17 23:43 04/11/17 23:43 Intake and Output: 04/11/17 04/12/17 18:59 05:59 Intake Total 500 Balance 500 - Medications Medications: Current Medications Amiodarone HCl (Cordarone) 200 mg PO BID [facility] Last Admin: 04/11/17 21:26 Dose: 200 mg Aspirin (Ecotrin) 81 mg PO DAILY [facility] Last Admin: 04/11/17 15:34 Dose: 81 mg Bacitracin (Bacitracin) 0 gm TOP DAILY [facility] Last Admin: 04/11/17 10:32 Dose: 1 applic Diltiazem HCl (Cardizem Cd) 360 mg PO DAILY [facility] Last Admin: 04/11/17 10:33 Dose: 360 mg Docusate Sodium (Colace) 100 mg PO BID [facility] Last Admin: 04/11/17 18:40 Dose: 100 mg Famotidine (Pepcid) 20 mg PO DAILY [facility] Last Admin: 04/11/17 10:35 Dose: 20 mg Finasteride (Proscar) 5 mg PO DAILY [facility] Last Admin: 04/11/17 10:36 Dose: 5 mg Gabapentin (Neurontin) 300 mg PO TID [facility] Last Admin: 04/11/17 18:40 Dose: 300 mg Lactobacillus Acidophilus (Bacid Acidophilus) 1 cap PO BID [facility] Stop: 04/14/17 18:00 Last Admin: 04/11/17 21:26 Dose: 1 cap Levetiracetam (Keppra) 500 mg PO BID [facility] Last Admin: 04/11/17 21:26 Dose: 500 mg Losartan Potassium (Cozaar) 25 mg PO DAILY [facility] Last Admin: 04/11/17 10:33 Dose: 25 mg Rosuvastatin Calcium (Crestor) 5 mg PO HS [facility] Last Admin: 04/11/17 21:26 Dose: 5 mg Tamsulosin HCl (Flomax) 0.4 mg PO DAILY [facility] Last Admin: 04/11/17 10:34 Dose: 0.4 mg Vitamin A (Vitamin A & D Oint Ud Foilpak) 1 ea TOP BID [facility] Last Admin: 04/11/17 18:40 Dose: 1 ea Zolpidem Tartrate (Ambien) 5 mg PO HS [facility] Last Admin: 04/11/17 21:26 Dose: 5 mg - Labs Labs: 04/10/17 12:47 04/10/17 12:47 PT 23.6 SECONDS (9.7-12.2) H 04/11/17 14:23 INR 2.1 04/11/17 14:23 APTT 38 SECONDS (21-34) H D 04/07/17 07:08 - Additional Findings Additional findings: - Constitutional Appears: Well, Non-toxic - Head Exam Head Exam: ATRAUMATIC, NORMAL INSPECTION, NORMOCEPHALIC - Eye Exam Eye Exam: EOMI, Normal appearance - ENT Exam ENT Exam: Mucous Membranes Moist - Neck Exam Neck Exam: absent: Lymphadenopathy - Respiratory Exam Respiratory Exam: Clear to Ausculation Bilateral, NORMAL BREATHING PATTERN. absent: Accessory Muscle Use - Cardiovascular Exam Cardiovascular Exam: +S1, +S2 - GI/Abdominal Exam GI & Abdominal Exam: Soft, Normal Bowel Sounds. absent: Tenderness, Organomegaly Additional comments: Surgical site wound in right inguinal region. Clean, dry, no dehiscence. - Extremities Exam Additional comments: B/L AKA. Surgical Site clean and dry w/o erythema. Small fluid collection and slightly tender to palpation. Right Stump w/ wound dressing. 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 He underwent bilateral thrombectomy on 02/05/17. The status of his bilateral lower legs worsened subsequently ( formation of bullae and sloughing of skin and these extremities cool to the touch and intense pain with minor palpation). Cultures from the bilateral lower legs revealed Serratia marcescens and Enterococcus faecalis. Blood Culture was positive for Bacillus species and Urine Cultures positive for Enterococcus faecalis. Because of the likelihood of sepsis, family decided on amputation. 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 Family has completed Medicaid Application and awaiting approval for [facility] placement. Plan: PAD S/P Bilateral AKA 03/04/17 Vascular Surgery (Dr. Kaur) on the case help appreciated Cardiology (Dr. Brown) on the case help appreciated Daily Coumadin Goal INR is 2.5 to 3.[address] Brown Advised dietary and nurse patient will need to be on a vitamin K free- dark leafy greens free diet Gabapentin 300 mg PO 3x/day 04/07 PT states improvement of UE strenght. Core strength is unstable but he is able to use wheelchair. They recomend Continue PT and Acute Rehab Insomnia Ambien 5 HS Cough CXR 03/22/17: Interval appearance of heterogeneous opacity at the right lung base may represent pneumonia or atelectasis. Otherwise no interval change. Increase opacity noted when compared to 02/20/17 CXR Promethazine PRN Hx Malignant HTN (Stable) B/P running on the low end, continue to monitor. Patient is asymptomatic Held Metoprolol 100 mg PO Q12H in light of hypotension on 03/17; given fluid bolus on 03/17 Cardizem 360 mg PO 1x/day Cozaar 25 mg PO 1x/day Hx Sepsis--Resolved Secondary to gangrenous bilateral legs, +blood culture code sepsis called on 03/03 Urine Culture (03/03/17): Enterococcus Faecalis-->sensitive to Vancomycin and PCN Blood cultures (03/03/17): No growth at 5 days Urine culture (03/02/17): Enterococcus Faecalis Blood culture (03/02/17): Bacillus species Blood Culture (03/02/17): no growth after 5 days Leg Right and Left (03/02/17): Serratia Marcescens and Enterococcus Faecalis Repeat Blood Culture (03/07): Negative at 5 days Repeat Urine Culture (04/06): NO growth Patient was treated with Ampicillin and Rocephin through 03/11/17. He was switched to Ciprofloxicin on 03/11/17 and this was discontinued by ID on 03/13/17. Hx Atrial Fibrillation (Stable) Amiodarone 200 mg PO 2x/day held Metoprolol 100 mg PO Q12H secondary to hypotension Cardizem 360 mg PO 1x/day INR 2.1 today . Coumadin 3 Today. Hx Seizure Disorder Because of Elevated LFTs his Dilantin was discontinued and Neurology Dr. Onesimo Hogan started him on Keppra 500 mg PO 2x/day Hx Multiple CVAs Crestor is being held considering the elevated LFTs and that his Lipid Profile is currently WNL. Repeat Lipid Panel in 1 month (Mid April) to see where we are with this. ASA 81 mg PO 1x/day Keep the blood pressure under control Hx Elevated LFTs-->resolved Could have been secondary to the Dilantin and the Crestor. The Crestor is being held and the Dilantin was switched over to Keppra. The LFTs have normalized as of 03/14/17 Hx Elevated WBC-->resolved Normalized Likely secondary to the Sepsis as mentioned above NO fevers Vitals are stable Hx Enlarged Prostate and Urinary Retention Proscar 5 mg PO 1x/day Flomax 0.4 mg PO 1x/day Patient had urinary retention on 03/20-->patient had urinary straight cath Anemia Likely Secondary to Chronic Disease HgB/Hct are stable Prophylaxis Colace 100 mg PO 2x/day Pepcid 20 mg PO 1x/day Bacid 1 cap PO 2x/day with STOP on 04/14/17 Zofran 4 mg IV Q6H PRN N/V DVT Prophylaxis: Coumadin Daily Disposition: Medicaid has been approved. Daughter requests for [facility] for for TR[facility]/Acute Rehab. She has been presented with several options by major case detective. Patient should only get Thursday and bloodwork for now on. <Unruly Vines - Last Filed: 04/12/17 21:09> Objective - Vital Signs/Intake and Output Vital Signs (last 24 hours): Temp Pulse Resp BP Pulse Ox 97.5 F L 59 L 20 114/65 97 04/12/17 15:00 04/12/17 18:08 04/12/17 15:00 04/12/17 18:08 04/12/17 15:00 Intake and Output: 04/12/17 04/13/17 18:59 06:59 Intake Total 500 Balance 500 - Medications Medications: Current Medications Amiodarone HCl (Cordarone) 200 mg PO BID [facility] Last Admin: 04/12/17 18:08 Dose: Not Given Aspirin (Ecotrin) 81 mg PO DAILY [facility] Last Admin: 04/12/17 10:07 Dose: 81 mg Bacitracin (Bacitracin) 0 gm TOP DAILY [facility] Last Admin: 04/12/17 10:09 Dose: 1 applic Diltiazem HCl (Cardizem Cd) 360 mg PO DAILY [facility] Last Admin: 04/12/17 10:08 Dose: 360 mg Docusate Sodium (Colace) 100 mg PO BID [facility] Last Admin: 04/12/17 18:10 Dose: 100 mg Famotidine (Pepcid) 20 mg PO DAILY [facility] Last Admin: 04/12/17 10:07 Dose: 20 mg Finasteride (Proscar) 5 mg PO DAILY [facility] Last Admin: 04/12/17 10:08 Dose: 5 mg Gabapentin (Neurontin) 300 mg PO TID [facility] Last Admin: 04/12/17 18:10 Dose: 300 mg Lactobacillus Acidophilus (Bacid Acidophilus) 1 cap PO BID [facility] Stop: 04/14/17 18:00 Last Admin: 04/12/17 18:10 Dose: 1 cap Levetiracetam (Keppra) 500 mg PO BID [facility] Last Admin: 04/12/17 18:10 Dose: 500 mg Losartan Potassium (Cozaar) 25 mg PO DAILY [facility] Last Admin: 04/12/17 10:07 Dose: 25 mg Rosuvastatin Calcium (Crestor) 5 mg PO [facility] Last Admin: 04/11/17 21:26 Dose: 5 mg Tamsulosin HCl (Flomax) 0.4 mg PO DAILY [facility] Last Admin: 04/12/17 10:07 Dose: 0.4 mg Vitamin A (Vitamin A & D Oint Ud Foilpak) 1 ea TOP BID [facility] Last Admin: 04/12/17 18:10 Dose: 1 ea Zolpidem Tartrate (Ambien) 5 mg PO HS [facility] Last Admin: 04/11/17 21:26 Dose: 5 mg - Labs Labs: 04/10/17 12:47 04/10/17 12:47 PT 23.9 SECONDS (9.7-12.2) H 04/12/17 13:56 INR 2.1 04/12/17 13:56 APTT 38 SECONDS (21-34) H D 04/07/17 07:08 Attending/Attestation - Attestation I have personally seen and examined this patient.: Yes I have fully participated in the care of the patient.: Yes I have reviewed all pertinent clinical information, including history, physical exam and plan: Yes Notes (Text): 04/12/17 21:07 Patient was seen and examined at 9:45 AM 04/12/17 358 A Exam, assessment and plan were thoroughly gone over with the resident. Upon FULL ROS: Slept better during the night with the addition of Ambien 04/11/17 Also on Exam: NO signs of cellulitis/dehiscence in the bilateral AKA surgical sites and Bilateral Groin surgical sites HEENT, Cardio, Respiratory, GI, Neuro exams were unremarkable Assessments and Plan: 1). PAD S/P Bilateral AKA 03/04/17 Coumadin 3 mg PO x 1 dose tonight INR will need to be kept between 2.5 and 3.5 ASA 81 mg PO 1x/day Crestor 5 mg PO HS 2). Hx Malignant HTN Cardizem 360 mg PO 1x/day Cozaar 25 mg PO 1x/day Will add back Metoprolol 100 mg PO Q12H should the blood pressure not be under control 3). Hx Sepsis * Urine Culture (03/03/17): Enterococcus Faecalis-->sensitive to Vancomycin and PCN * Blood cultures (03/03/17): No growth at 5 days * Urine culture (03/02/17): Enterococcus Faecalis * Blood culture (03/02/17): Bacillus species * Blood Culture (03/02/17): no growth after 5 days * Leg Right and Left (03/02/17): Serratia Marcescens and Enterococcus Faecalis * Repeat Blood Culture (03/07): Negative at 5 days * Repeat Urine Culture (04/06): NO growth Patient was treated with Ampicillin and Rocephin through 03/11/17. He was switched to Ciprofloxicin on 03/11/17 and this was discontinued by ID on 03/13/17. 4). Hx Atrial Fibrillation Amiodarone 200 mg PO 2x/day Cardizem 360 mg PO 1x/day Heart rate is under control and will add back Metoprolol 100 mg PO Q12H should it start to rise again 5). Hx Seizure Disorder Because of Elevated LFTs his Dilantin was discontinued and Neurology Dr. Onesimo Hogan started him on Keppra 500 mg PO 2x/day 6). Hx Multiple CVAs Crestor 5 mg PO HS ASA 81 mg PO 1x/day Keep the blood pressure under control 7). Hx Elevated LFTs Could have been secondary to the Dilantin and the Crestor. Dilantin was switched to Keppra and the Crestor was held for a time but then restarted. The LFTs have remained normal. Monitor 8). Hx Elevated WBC Normalized Likely secondary to the Sepsis as mentioned above NO fevers Vitals are stable 9). Hx Enlarged Prostate and Urinary Retention Proscar 5 mg PO 1x/day Flomax 0.4 mg PO 1x/day 10). Anemia Likely Secondary to Chronic Disease HgB/Hct are stable 11). Prophylaxis Colace 100 mg PO 2x/day Pepcid 20 mg PO 1x/day Bacid 1 cap PO 2x/day with STOP on 04/14/17 DVT Prophylaxis: he is on coumadin Bacitracin to the Right AKA lateral surgical site (which currently does not show any evidence of cellulitis or drainage) Ambien 5 mg PO HS It is recommended that the Medicine Team only perform blood work on Mondays and and INRs daily until stable between 2.5 and 3.5. I spoke with Space Control Supervisor Nico and was informed that patient's Medicaid was approved. However Medicaid does not cover TRENT but does cover [employer] [facility]acement which Daughter Pura has been resistent to. I spoke with Pura and she is agreeable for [facility] after she visited this facility on 04/10/17 and after learning that they offered help with Prosthesis for the legs. Space Control Supervisor Nico is working towards placing patient in [facility] with the option for family to take patient home should they change their minds. Unruly Vines D.O.
[2017-04-12] MEDS: Vitamins A & D Oint UD Foilpak TOP SCH ×2 (10:06→18:10)
[2017-04-12] MEDS: diltiaZEM 180 mg/24 Hours CD Cap PO SCH (10:08)
[2017-04-12] MEDS: Lactobacillus Acidophilus 500 MU Cap PO SCH ×2 (10:08→18:10)
[2017-04-12] MEDS: Bacitracin Ointment 30 GM TUBE TOP SCH (10:09)
[2017-04-12 14:07] LABS: INR 2.1
[2017-04-13 07:26] LABS: INR 2.1
[2017-04-13 07:37] LABS: BASO % 0.3 % (0.0-2.0); EOS # 0.1 K/uL (0.0-0.7); EOS % 1.5 % (0.0-4.0); HEMATOCRIT 33.2 % (35.0-51.0); LYMPH % 25.1 % (20.0-40.0); MEAN CELL VOLUME 78.1 fL (80.0-94.0); MEAN CORPUSCULAR HEMOGLOBIN 25.9 pg (27.0-31.0); MEAN CORPUSCULAR HGB CONC 33.2 g/dL (33.0-37.0); MONO # 0.4 K/uL (0.0-0.8); MONO % 5.5 % (0.0-10.0); NRBC % 0.1 % (0.0-2.0); RED CELL DISTRIBUTION WIDTH 16.4 % (11.5-14.5)
[2017-04-13 07:42] LABS: CHLORIDE 102 mmol/L (98-107)
[2017-04-13 07:43] LABS: POTASSIUM 3.7 mmol/L (3.6-5.2); SODIUM 133 mmol/L (132-148)
[2017-04-13 07:46] LABS: ALB/GLOB RATIO 1.1 (1.0-2.1); ALKALINE PHOSPHATASE 93 U/L (38-126); ALT/SGPT 28 U/L (21-72); AST/SGOT 16 U/L (17-59); BILIRUBIN,TOTAL 0.5 mg/dL (0.2-1.3); BLOOD UREA NITROGEN 18 mg/dL (9-20); CALCIUM 7.8 mg/dl (8.6-10.4); CARBON DIOXIDE 26 mmol/L (22-30); GFR AFRICAN-AMERICAN > 60; GLUCOSE,RANDOM 79 mg/dL (75-110); TOTAL PROTEIN 5.3 g/dL (6.3-8.3)
[2017-04-13] MEDS: diltiaZEM 180 mg/24 Hours CD Cap PO SCH (09:04)
[2017-04-13] MEDS: Lactobacillus Acidophilus 500 MU Cap PO SCH ×2 (09:05→17:43)
[2017-04-13] MEDS: Bacitracin Ointment 30 GM TUBE TOP SCH (09:05)
[2017-04-13] MEDS: Vitamins A & D Oint UD Foilpak TOP SCH ×2 (10:24→17:42)
--- NOTE | 2017-04-13 14:02 | CP.PCM.PN ---
<Kat Qureshi - Last Filed: 04/13/17 14:00> Subjective - Date & Time of Evaluation Date of Evaluation: 04/13/17 Time of Evaluation: 14:00 - Subjective Subjective: Patient has been seen and examined. No overnight reported. He does report feeling a little distended. He denies fever, chills, cp, sob, abdominal pain, urinary symptoms, and changes in bowel habits. Objective - Vital Signs/Intake and Output Vital Signs (last 24 hours): Temp Pulse Resp BP Pulse Ox 98.2 F 53 L 20 148/70 97 04/13/17 08:33 04/13/17 08:33 04/13/17 08:33 04/13/17 08:33 04/13/17 08:33 Intake and Output: 04/13/17 04/13/17 06:59 18:59 Intake Total 800 600 Balance 800 600 - Medications Medications: Current Medications Amiodarone HCl (Cordarone) 200 mg PO BID [facility] Last Admin: 04/13/17 09:03 Dose: 200 mg Aspirin (Ecotrin) 81 mg PO DAILY [facility] Last Admin: 04/13/17 09:03 Dose: 81 mg Bacitracin (Bacitracin) 0 gm TOP DAILY [facility] Last Admin: 04/13/17 09:05 Dose: 1 applic Diltiazem HCl (Cardizem Cd) 360 mg PO DAILY [facility] Last Admin: 04/13/17 09:04 Dose: 360 mg Docusate Sodium (Colace) 100 mg PO BID [facility] Last Admin: 04/13/17 09:03 Dose: 100 mg Famotidine (Pepcid) 20 mg PO DAILY [facility] Last Admin: 04/13/17 09:03 Dose: 20 mg Finasteride (Proscar) 5 mg PO DAILY [facility] Last Admin: 04/13/17 09:04 Dose: 5 mg Gabapentin (Neurontin) 300 mg PO TID [facility] Last Admin: 04/13/17 13:24 Dose: 300 mg Lactobacillus Acidophilus (Bacid Acidophilus) 1 cap PO BID [facility] Stop: 04/14/17 18:00 Last Admin: 04/13/17 09:05 Dose: 1 cap Levetiracetam (Keppra) 500 mg PO BID [facility] Last Admin: 04/13/17 09:03 Dose: 500 mg Losartan Potassium (Cozaar) 25 mg PO DAILY [facility] Last Admin: 04/13/17 09:03 Dose: 25 mg Rosuvastatin Calcium (Crestor) 5 mg PO HS [facility] Last Admin: 04/12/17 21:50 Dose: 5 mg Tamsulosin HCl (Flomax) 0.4 mg PO DAILY [facility] Last Admin: 04/13/17 09:03 Dose: 0.4 mg Vitamin A (Vitamin A & D Oint Ud Foilpak) 1 ea TOP BID [facility] Last Admin: 04/13/17 10:24 Dose: 1 ea Warfarin Sodium (Coumadin) 3 mg PO 1800 [facility] Stop: 04/13/17 18:01 Zolpidem Tartrate (Ambien) 5 mg PO HS [facility] Last Admin: 04/12/17 21:50 Dose: 5 mg - Labs Labs: 04/13/17 07:11 04/13/17 07:11 PT 24.4 SECONDS (9.7-12.2) H 04/13/17 07:11 INR 2.1 04/13/17 07:11 APTT 38 SECONDS (21-34) H D 04/07/17 07:08 - Additional Findings Additional findings: - Constitutional Appears: Well, Non-toxic - Head Exam Head Exam: ATRAUMATIC, NORMAL INSPECTION, NORMOCEPHALIC - Eye Exam Eye Exam: EOMI, Normal appearance - ENT Exam ENT Exam: Mucous Membranes Moist - Neck Exam Neck Exam: absent: Lymphadenopathy - Respiratory Exam Respiratory Exam: Clear to Ausculation Bilateral, NORMAL BREATHING PATTERN. absent: Accessory Muscle Use - Cardiovascular Exam Cardiovascular Exam: +S1, +S2 - GI/Abdominal Exam GI & Abdominal Exam: Soft, Normal Bowel Sounds. absent: Tenderness, Organomegaly Additional comments: Surgical site wound in right inguinal region. Clean, dry, no dehiscence. - Extremities Exam Additional comments: B/L AKA. Surgical Site clean and dry w/o erythema. Small fluid collection and slightly tender to palpation. Right Stump w/ wound dressing. 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 He underwent bilateral thrombectomy on 02/05/17. The status of his bilateral lower legs worsened subsequently ( formation of bullae and sloughing of skin and these extremities cool to the touch and intense pain with minor palpation). Cultures from the bilateral lower legs revealed Serratia marcescens and Enterococcus faecalis. Blood Culture was positive for Bacillus species and Urine Cultures positive for Enterococcus faecalis. Because of the likelihood of sepsis, family decided on amputation. 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 Family has completed Medicaid Application and awaiting approval for TRENT vs Longterm Facility placement. Plan: Plan: PAD S/P Bilateral AKA 03/04/17 Vascular Surgery (Dr. Kaur) on the case help appreciated Cardiology (Dr. Brown) on the case help appreciated Daily Coumadin Goal INR is 2.5 to 3.[address] Brown Advised dietary and nurse patient will need to be on a vitamin K free- dark leafy greens free diet Gabapentin 300 mg PO 3x/day 04/07 PT states improvement of UE strenght. Core strength is unstable but he is able to use wheelchair. They recommend Continue PT and Acute Rehab Insomnia Ambien 5 HS Cough CXR 03/22/17: Interval appearance of heterogeneous opacity at the right lung base may represent pneumonia or atelectasis. Otherwise no interval change. Increase opacity noted when compared to 02/20/17 CXR Promethazine PRN Hx Malignant HTN (Stable) B/P running on the low end, continue to monitor. Patient is asymptomatic Held Metoprolol 100 mg PO Q12H in light of hypotension on 03/17; given fluid bolus on 03/17 Cardizem 360 mg PO 1x/day Cozaar 25 mg PO 1x/day Hx Sepsis--Resolved Secondary to gangrenous bilateral legs, +blood culture code sepsis called on 03/03 Urine Culture (03/03/17): Enterococcus Faecalis-->sensitive to Vancomycin and PCN Blood cultures (03/03/17): No growth at 5 days Urine culture (03/02/17): Enterococcus Faecalis Blood culture (03/02/17): Bacillus species Blood Culture (03/02/17): no growth after 5 days Leg Right and Left (03/02/17): Serratia Marcescens and Enterococcus Faecalis Repeat Blood Culture (03/07): Negative at 5 days Repeat Urine Culture (04/06): NO growth Patient was treated with Ampicillin and Rocephin through 03/11/17. He was switched to Ciprofloxacin on 03/11/17 and this was discontinued by ID on 03/13/17. Hx Atrial Fibrillation (Stable) Amiodarone 200 mg PO 2x/day held Metoprolol 100 mg PO Q12H secondary to hypotension Cardizem 360 mg PO 1x/day INR 2.1 today . Coumadin 3 Today. Hx Seizure Disorder Because of Elevated LFTs his Dilantin was discontinued and Neurology Dr. Onesimo Hogan started him on Keppra 500 mg PO 2x/day Hx Multiple CVAs Crestor is being held considering the elevated LFTs and that his Lipid Profile is currently WNL. Repeat Lipid Panel in 1 month (Mid April) to see where we are with this. ASA 81 mg PO 1x/day Keep the blood pressure under control Hx Elevated LFTs-->resolved Could have been secondary to the Dilantin and the Crestor. The Crestor is being held and the Dilantin was switched over to Keppra. The LFTs have normalized as of 03/14/17 Hx Elevated WBC-->resolved Normalized Likely secondary to the Sepsis as mentioned above NO fevers Vitals are stable Hx Enlarged Prostate and Urinary Retention Proscar 5 mg PO 1x/day Flomax 0.4 mg PO 1x/day Patient had urinary retention on 03/20 Bladder Scan today. Anemia Likely Secondary to Chronic Disease HgB/Hct are stable Prophylaxis Colace 100 mg PO 2x/day Pepcid 20 mg PO 1x/day Bacid 1 cap PO 2x/day with STOP on 04/14/17 Zofran 4 mg IV Q6H PRN N/V DVT Prophylaxis: Coumadin Daily Disposition: Medicaid has been approved. Daughter requests for [facility] for for TRENT/Acute Rehab. She has been presented with several options by case mgr. Patient should only get Thursday and bloodwork for now on. Patient discussed with Attending Kat Qureshi - PGY-1 <Alexandra Skinner V - Last Filed: 04/13/17 18:06> Objective - Vital Signs/Intake and Output Vital Signs (last 24 hours): Temp Pulse Resp BP Pulse Ox 98.2 F 52 L 20 121/68 96 04/13/17 15:00 04/13/17 15:00 04/13/17 15:00 04/13/17 15:00 04/13/17 15:00 Intake and Output: 04/13/17 04/13/17 06:59 18:59 Intake Total 800 600 Balance 800 600 - Medications Medications: Current Medications Amiodarone HCl (Cordarone) 200 mg PO BID [facility] Last Admin: 04/13/17 09:03 Dose: 200 mg Aspirin (Ecotrin) 81 mg PO DAILY [facility] Last Admin: 04/13/17 09:03 Dose: 81 mg Bacitracin (Bacitracin) 0 gm TOP DAILY [facility] Last Admin: 04/13/17 09:05 Dose: 1 applic Diltiazem HCl (Cardizem Cd) 360 mg PO DAILY [facility] Last Admin: 04/13/17 09:04 Dose: 360 mg Docusate Sodium (Colace) 100 mg PO BID [facility] Last Admin: 04/13/17 17:42 Dose: 100 mg Famotidine (Pepcid) 20 mg PO DAILY [facility] Last Admin: 04/13/17 09:03 Dose: 20 mg Finasteride (Proscar) 5 mg PO DAILY [facility] Last Admin: 04/13/17 09:04 Dose: 5 mg Gabapentin (Neurontin) 300 mg PO TID [facility] Last Admin: 04/13/17 17:42 Dose: 300 mg Lactobacillus Acidophilus (Bacid Acidophilus) 1 cap PO BID [facility] Stop: 04/14/17 18:00 Last Admin: 04/13/17 17:43 Dose: 1 cap Levetiracetam (Keppra) 500 mg PO BID [facility] Last Admin: 04/13/17 17:42 Dose: 500 mg Losartan Potassium (Cozaar) 25 mg PO DAILY [facility] Last Admin: 04/13/17 09:03 Dose: 25 mg Rosuvastatin Calcium (Crestor) 5 mg PO HS [facility] Last Admin: 04/12/17 21:50 Dose: 5 mg Tamsulosin HCl (Flomax) 0.4 mg PO DAILY [facility] Last Admin: 04/13/17 09:03 Dose: 0.4 mg Vitamin A (Vitamin A & D Oint Ud Foilpak) 1 ea TOP BID [facility] Last Admin: 04/13/17 17:42 Dose: 1 ea Warfarin Sodium (Coumadin) 3 mg PO 1800 [facility] Stop: 04/13/17 18:01 Last Admin: 04/13/17 17:42 Dose: 3 mg Zolpidem Tartrate (Ambien) 5 mg PO HS [facility] Last Admin: 04/12/17 21:50 Dose: 5 mg - Labs Labs: 04/13/17 07:11 04/13/17 07:11 PT 24.4 SECONDS (9.7-12.2) H 04/13/17 07:11 INR 2.1 04/13/17 07:11 APTT 38 SECONDS (21-34) H D 04/07/17 07:08 Attending/Attestation - Attestation I have personally seen and examined this patient.: Yes I have fully participated in the care of the patient.: Yes I have reviewed all pertinent clinical information, including history, physical exam and plan: Yes Notes (Text): Patient seen, examined, and case discussed with day-time resident. Patient seen this afternoon Patient denies acute complaints. Patient seen eating lunch at bedside. Patient ordered for Coumadin 3mg PO X1 tonight. INR: 2.1 INR goal: 2.5 to 3.5 Discussed with physical therapy, to continue physical therapy. Patient appear distended during my exam today; order for pelvis US (meant for bladder scan) but shortly voided prior to scan. Assessment/Plan 1). PAD S/P Bilateral AKA 03/04/17 * Vascular Surgery (Dr. Kaur) on the case help appreciated * Cardiology (Dr. Brown) on the case help appreciated * Goal INR is 2.5 to 3.[address] Brown * [place] to Surgical Site to removed when Ok with Vascular Surgery Dr. Kaur -->[place] removed 03/31/17 * Gabapentin 300 mg PO 3x/day 2). Hx Malignant HTN * B/P running on the low end, continue to monitor. Patient is asymptomatic * Held Metoprolol 100 mg PO Q12H in light of hypotension on 03/17; given fluid bolus on 03/17 * Cardizem 360 mg PO 1x/day * Cozaar 25 mg PO 1x/day 3). Hx Sepsis--Resolved * Secondary to gangrenous bilateral legs, +blood culture code sepsis called on * Urine Culture (03/03/17): Enterococcus Faecalis-->sensitive to Vancomycin and PCN * Blood cultures (03/03/17): No growth at 5 days * Urine culture (03/02/17): Enterococcus Faecalis * Blood culture (03/02/17): Bacillus species * Blood Culture (03/02/17): no growth after 5 days * Leg Right and Left (03/02/17): Serratia Marcescens and Enterococcus Faecalis * Repeat Blood Culture (03/07): Negative at 5 days * Repeat Urine Culture (04/06): NO growth * Patient was treated with Ampicillin and Rocephin through 03/11/17. He was switched to Ciprofloxicin on 03/11/17 and this was discontinued by ID on 03/13/17. 4). Hx Atrial Fibrillation * Amiodarone 200 mg PO 2x/day * held Metoprolol 100 mg PO Q12H secondary to hypotension * Cardizem 360 mg PO 1x/day * Monitor for therapuetic INR 5). Hx Seizure Disorder * Because of Elevated LFTs his Dilantin was discontinued and Neurology Dr. Onesimo Hogan started him on Keppra 500 mg PO 2x/day 6). Hx Multiple CVAs * Crestor is being held considering the elevated LFTs and that his Lipid Profile is currently WNL. * Repeat Lipid Panel in 1 month to see where we are with this. * ASA 81 mg PO 1x/day * Keep the blood pressure under control 7). Hx Elevated LFTs-->resolved * Could have been secondary to the Dilantin and the Crestor. The Crestor is being held and the Dilantin was switched over to Keppra. * The LFTs have normalized as of 03/14/17 8). Hx Elevated WBC-->resolved * Normalized * Likely secondary to the Sepsis as mentioned above * NO fevers * Vitals are stable 9). Hx Enlarged Prostate and Urinary Retention * Proscar 5 mg PO 1x/day * Flomax 0.4 mg PO 1x/day * Patient had urinary retention on 03/20-->patient had urinary straight cath * Pelvix US (04/13/17): no retention noted 10). Anemia Likely Secondary to Chronic Disease * HgB/Hct are stable 11). Prophylaxis * Colace 100 mg PO 2x/day * Pepcid 20 mg PO 1x/day * Zofran 4 mg IV Q6H PRN N/V * DVT Prophylaxis: he is on coumadin Disposition: Patient is pending [employer] approval; pending terminal carman care placement. Patient does not qualify for acute rehab per discussion with case management. Family is aware.
--- NOTE | 2017-04-13 17:12 | US ---
Indication: Rule out urinary retention Comparison: Urinary bladder ultrasound performed 02/23/17 Findings: Please note, patient voided 1 hour prior to examination. Prevoid urinary bladder volume 61.3 cc. Postvoid urinary bladder volume 5.38. No evidence of urinary bladder wall thickening. Bilateral ureteral jets were not identified. Impression: Please note, patient voided 1 hour prior to examination. Prevoid urinary bladder volume 61.3 cc. Postvoid urinary bladder volume 5.38. Bilateral ureteral jets were not identified.
[2017-04-14 08:19] LABS: INR 2.2
[2017-04-14] MEDS: diltiaZEM 180 mg/24 Hours CD Cap PO SCH (09:24)
[2017-04-14] MEDS: Vitamins A & D Oint UD Foilpak TOP SCH ×2 (09:24→18:00)
[2017-04-14] MEDS: Lactobacillus Acidophilus 500 MU Cap PO SCH ×2 (09:25→18:00)
[2017-04-14] MEDS: Bacitracin Ointment 30 GM TUBE TOP SCH (09:25)
--- NOTE | 2017-04-14 14:02 | CP.PCM.PN ---
<Kat Qureshi - Last Filed: 04/14/17 13:58> Subjective - Date & Time of Evaluation Date of Evaluation: 04/14/17 Time of Evaluation: 07:30 - Subjective Subjective: Patient has been seen and examined. No overnight events reported. No new complaints at this time. Denies fever, chills, chest pain, or SOB. Objective - Vital Signs/Intake and Output Vital Signs (last 24 hours): Temp Pulse Resp BP Pulse Ox 97.8 F 62 20 131/70 97 04/14/17 07:00 04/14/17 07:00 04/14/17 07:00 04/14/17 07:00 04/14/17 07:00 Intake and Output: 04/14/17 04/14/17 06:59 18:59 Intake Total 540 Balance 540 - Medications Medications: Current Medications Amiodarone HCl (Cordarone) 200 mg PO BID [facility] Last Admin: 04/14/17 09:24 Dose: 200 mg Aspirin (Ecotrin) 81 mg PO DAILY [facility] Last Admin: 04/14/17 09:24 Dose: 81 mg Bacitracin (Bacitracin) 0 gm TOP DAILY [facility] Last Admin: 04/14/17 09:25 Dose: 1 applic Diltiazem HCl (Cardizem Cd) 360 mg PO DAILY [facility] Last Admin: 04/14/17 09:24 Dose: 360 mg Docusate Sodium (Colace) 100 mg PO BID [facility] Last Admin: 04/14/17 09:23 Dose: 100 mg Famotidine (Pepcid) 20 mg PO DAILY [facility] Last Admin: 04/14/17 09:24 Dose: 20 mg Finasteride (Proscar) 5 mg PO DAILY [facility] Last Admin: 04/14/17 09:24 Dose: 5 mg Gabapentin (Neurontin) 300 mg PO TID [facility] Last Admin: 04/14/17 13:27 Dose: 300 mg Lactobacillus Acidophilus (Bacid Acidophilus) 1 cap PO BID [facility] Stop: 04/14/17 18:00 Last Admin: 04/14/17 09:25 Dose: 1 cap Levetiracetam (Keppra) 500 mg PO BID [facility] Last Admin: 04/14/17 09:24 Dose: 500 mg Losartan Potassium (Cozaar) 25 mg PO DAILY [facility] Last Admin: 04/14/17 09:24 Dose: 25 mg Rosuvastatin Calcium (Crestor) 5 mg PO HS [facility] Last Admin: 04/13/17 22:14 Dose: 5 mg Tamsulosin HCl (Flomax) 0.4 mg PO DAILY [facility] Last Admin: 04/14/17 09:24 Dose: 0.4 mg Vitamin A (Vitamin A & D Oint Ud Foilpak) 1 ea TOP BID [facility] Last Admin: 04/14/17 09:24 Dose: 1 ea Warfarin Sodium (Coumadin) 4 mg PO 1800 [facility] Stop: 04/14/17 18:01 Zolpidem Tartrate (Ambien) 5 mg PO HS [facility] Last Admin: 04/13/17 22:14 Dose: 5 mg - Labs Labs: 04/13/17 07:11 04/13/17 07:11 PT 25.4 SECONDS (9.7-12.2) H 04/14/17 08:00 INR 2.2 04/14/17 08:00 APTT 38 SECONDS (21-34) H D 04/07/17 07:08 - Additional Findings Additional findings: - Constitutional Appears: Well, Non-toxic - Head Exam Head Exam: ATRAUMATIC, NORMAL INSPECTION, NORMOCEPHALIC - Eye Exam Eye Exam: EOMI, Normal appearance - ENT Exam ENT Exam: Mucous Membranes Moist - Neck Exam Neck Exam: absent: Lymphadenopathy - Respiratory Exam Respiratory Exam: Clear to Ausculation Bilateral, NORMAL BREATHING PATTERN. absent: Accessory Muscle Use - Cardiovascular Exam Cardiovascular Exam: +S1, +S2 - GI/Abdominal Exam GI & Abdominal Exam: Soft, Normal Bowel Sounds. absent: Tenderness, Organomegaly Additional comments: Surgical site wound in right inguinal region. Clean, dry, no dehiscence. - Extremities Exam Additional comments: B/L AKA. Surgical Site clean and dry w/o erythema. Small fluid collection and slightly tender to palpation. Right Stump w/ wound dressing. 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 He underwent bilateral thrombectomy on 02/05/17. The status of his bilateral lower legs worsened subsequently ( formation of bullae and sloughing of skin and these extremities cool to the touch and intense pain with minor palpation). Cultures from the bilateral lower legs revealed Serratia marcescens and Enterococcus faecalis. Blood Culture was positive for Bacillus species and Urine Cultures positive for Enterococcus faecalis. Because of the likelihood of sepsis, family decided on amputation. 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 Family has completed Medicaid Application and awaiting approval for [facility] placement. Plan: PAD S/P Bilateral AKA 03/04/17 Vascular Surgery (Dr. Kaur) on the case help appreciated Cardiology (Dr. Brown) on the case help appreciated Daily Coumadin Goal INR is 2.5 to 3.[address] Brown Advised dietary and nurse patient will need to be on a vitamin K free- dark leafy greens free diet Gabapentin 300 mg PO 3x/day 04/07 PT states improvement of UE strenght. Core strength is unstable but he is able to use wheelchair. They recommend Continue PT and Acute Rehab Insomnia Ambien 5 HS Cough CXR 03/22/17: Interval appearance of heterogeneous opacity at the right lung base may represent pneumonia or atelectasis. Otherwise no interval change. Increase opacity noted when compared to 02/20/17 CXR Promethazine PRN Hx Malignant HTN (Stable) B/P running on the low end, continue to monitor. Patient is asymptomatic Held Metoprolol 100 mg PO Q12H in light of hypotension on 03/17; given fluid bolus on 03/17 Cardizem 360 mg PO 1x/day Cozaar 25 mg PO 1x/day Hx Sepsis--Resolved Secondary to gangrenous bilateral legs, +blood culture code sepsis called on 03/03 Urine Culture (03/03/17): Enterococcus Faecalis-->sensitive to Vancomycin and PCN Blood cultures (03/03/17): No growth at 5 days Urine culture (03/02/17): Enterococcus Faecalis Blood culture (03/02/17): Bacillus species Blood Culture (03/02/17): no growth after 5 days Leg Right and Left (03/02/17): Serratia Marcescens and Enterococcus Faecalis Repeat Blood Culture (03/07): Negative at 5 days Repeat Urine Culture (04/06): NO growth Patient was treated with Ampicillin and Rocephin through 03/11/17. He was switched to Ciprofloxacin on 03/11/17 and this was discontinued by ID on 03/13/17. Hx Atrial Fibrillation (Stable) Amiodarone 200 mg PO 2x/day held Metoprolol 100 mg PO Q12H secondary to hypotension Cardizem 360 mg PO 1x/day INR 2.2 today . Coumadin 4 Today. Hx Seizure Disorder Because of Elevated LFTs his Dilantin was discontinued and Neurology Dr. Onesimo Hogan started him on Keppra 500 mg PO 2x/day Hx Multiple CVAs Crestor is being held considering the elevated LFTs and that his Lipid Profile is currently WNL. Repeat Lipid Panel in 1 month (Mid April) to see where we are with this. ASA 81 mg PO 1x/day Keep the blood pressure under control Hx Elevated LFTs-->resolved Could have been secondary to the Dilantin and the Crestor. The Crestor is being held and the Dilantin was switched over to Keppra. The LFTs have normalized as of 03/14/17 Hx Elevated WBC-->resolved Normalized Likely secondary to the Sepsis as mentioned above NO fevers Vitals are stable Hx Enlarged Prostate and Urinary Retention Proscar 5 mg PO 1x/day Flomax 0.4 mg PO 1x/day Patient had urinary retention on 03/20 Anemia Likely Secondary to Chronic Disease HgB/Hct are stable Prophylaxis Colace 100 mg PO 2x/day Pepcid 20 mg PO 1x/day Bacid 1 cap PO 2x/day with STOP on 04/14/17 Zofran 4 mg IV Q6H PRN N/V DVT Prophylaxis: Coumadin Daily Disposition: Medicaid has been approved. Daughter requests for [facility] for for [facility]/Acute Rehab. She has been presented with several options by vocational case manager. Patient should only get Thursday and bloodwork for now on. Patient discussed with Attending Kat Qureshi - PGY-1 <Alexandra Skinner V - Last Filed: 04/14/17 18:39> Objective - Vital Signs/Intake and Output Vital Signs (last 24 hours): Temp Pulse Resp BP Pulse Ox 98.1 F 73 20 116/64 98 04/14/17 15:00 04/14/17 15:00 04/14/17 15:00 04/14/17 15:00 04/14/17 15:00 Intake and Output: 04/14/17 04/14/17 06:59 18:59 Intake Total 540 300 Balance 540 300 - Medications Medications: Current Medications Amiodarone HCl (Cordarone) 200 mg PO BID [facility] Last Admin: 04/14/17 18:00 Dose: 200 mg Aspirin (Ecotrin) 81 mg PO DAILY [facility] Last Admin: 04/14/17 09:24 Dose: 81 mg Bacitracin (Bacitracin) 0 gm TOP DAILY [facility] Last Admin: 04/14/17 09:25 Dose: 1 applic Diltiazem HCl (Cardizem Cd) 360 mg PO DAILY [facility] Last Admin: 04/14/17 09:24 Dose: 360 mg Docusate Sodium (Colace) 100 mg PO BID [facility] Last Admin: 04/14/17 17:59 Dose: 100 mg Famotidine (Pepcid) 20 mg PO DAILY [facility] Last Admin: 04/14/17 09:24 Dose: 20 mg Finasteride (Proscar) 5 mg PO DAILY [facility] Last Admin: 04/14/17 09:24 Dose: 5 mg Gabapentin (Neurontin) 300 mg PO TID [facility] Last Admin: 04/14/17 18:00 Dose: 300 mg Levetiracetam (Keppra) 500 mg PO BID [facility] Last Admin: 04/14/17 17:59 Dose: 500 mg Losartan Potassium (Cozaar) 25 mg PO DAILY [facility] Last Admin: 04/14/17 09:24 Dose: 25 mg Rosuvastatin Calcium (Crestor) 5 mg PO HS [facility] Last Admin: 04/13/17 22:14 Dose: 5 mg Tamsulosin HCl (Flomax) 0.4 mg PO DAILY [facility] Last Admin: 04/14/17 09:24 Dose: 0.4 mg Vitamin A (Vitamin A & D Oint Ud Foilpak) 1 ea TOP BID [facility] Last Admin: 04/14/17 18:00 Dose: 1 ea Zolpidem Tartrate (Ambien) 5 mg PO HS [facility] Last Admin: 04/13/17 22:14 Dose: 5 mg - Labs Labs: 04/13/17 07:11 04/13/17 07:11 PT 25.4 SECONDS (9.7-12.2) H 04/14/17 08:00 INR 2.2 04/14/17 08:00 APTT 38 SECONDS (21-34) H D 04/07/17 07:08 Attending/Attestation - Attestation I have personally seen and examined this patient.: Yes I have fully participated in the care of the patient.: Yes I have reviewed all pertinent clinical information, including history, physical exam and plan: Yes Notes (Text): Patient seen, examined, and case discussed with day-time resident. Patient seen this afternoon Patient denies acute complaints. Patient seen eating lunch at bedside. Patient ordered for Coumadin 4mg PO X1 tonight. INR: 2.2 INR goal: 2.5 to 3.5 Discussed with physical therapy, to continue physical therapy. Case management and social work to keep ongoing talks about potential discharge with patient's daughter; please review extensive case management note from . Assessment/Plan 1). PAD S/P Bilateral AKA 03/04/17 * Vascular Surgery (Dr. Kaur) on the case help appreciated * Cardiology (Dr. Brown) on the case help appreciated * Goal INR is 2.5 to 3.[address] Brown * Neo to Surgical Site to removed when Ok with Vascular Surgery Dr. Kaur -->neo removed 03/31/17 * Gabapentin 300 mg PO 3x/day * Coumadin 4mg PO tonight; f/u inr tomorrow 2). Hx Malignant HTN * B/P running on the low end, continue to monitor. Patient is asymptomatic * Held Metoprolol 100 mg PO Q12H in light of hypotension on 03/17; given fluid bolus on 03/17 * Cardizem 360 mg PO 1x/day * Cozaar 25 mg PO 1x/day 3). Hx Sepsis--Resolved * Secondary to gangrenous bilateral legs, +blood culture code sepsis called on * Urine Culture (03/03/17): Enterococcus Faecalis-->sensitive to Vancomycin and PCN * Blood cultures (03/03/17): No growth at 5 days * Urine culture (03/02/17): Enterococcus Faecalis * Blood culture (03/02/17): Bacillus species * Blood Culture (03/02/17): no growth after 5 days * Leg Right and Left (03/02/17): Serratia Marcescens and Enterococcus Faecalis * Repeat Blood Culture (03/07): Negative at 5 days * Repeat Urine Culture (04/06): NO growth * Patient was treated with Ampicillin and Rocephin through 03/11/17. He was switched to Ciprofloxicin on 03/11/17 and this was discontinued by ID on 03/13/17. 4). Hx Atrial Fibrillation * Amiodarone 200 mg PO 2x/day * held Metoprolol 100 mg PO Q12H secondary to hypotension * Cardizem 360 mg PO 1x/day * Monitor for therapuetic INR 5). Hx Seizure Disorder * Because of Elevated LFTs his Dilantin was discontinued and Neurology Dr. Onesimo Hogan started him on Keppra 500 mg PO 2x/day 6). Hx Multiple CVAs * Crestor is being held considering the elevated LFTs and that his Lipid Profile is currently WNL. * Repeat Lipid Panel in 1 month to see where we are with this. * ASA 81 mg PO 1x/day * Keep the blood pressure under control 7). Hx Elevated LFTs-->resolved * Could have been secondary to the Dilantin and the Crestor. The Crestor is being held and the Dilantin was switched over to Keppra. * The LFTs have normalized as of 03/14/17 8). Hx Elevated WBC-->resolved * Normalized * Likely secondary to the Sepsis as mentioned above * NO fevers * Vitals are stable 9). Hx Enlarged Prostate and Urinary Retention * Proscar 5 mg PO 1x/day * Flomax 0.4 mg PO 1x/day * Patient had urinary retention on 03/20-->patient had urinary straight cath * Pelvix US (04/13/17): no retention noted 10). Anemia Likely Secondary to Chronic Disease * HgB/Hct are stable 11). Prophylaxis * Colace 100 mg PO 2x/day * Pepcid 20 mg PO 1x/day * Zofran 4 mg IV Q6H PRN N/V * DVT Prophylaxis: he is on coumadin Disposition: Patient is pending [employer] approval; pending [facility] care placement. Patient does not qualify for acute rehab per discussion with case management. Case management and social work have had ongoing talks with the patient's daughter regarding what are available options and noting most recent note (04/10); daughter has refused many options that have been offered in light of receiving Medicaid number.
[2017-04-14] MEDS ORDERED: Lactobacillus Acidophilus 500 MU Cap PO SCH (18:00)
[2017-04-15 08:33] LABS: INR 2.4
[2017-04-15] MEDS: Vitamins A & D Oint UD Foilpak TOP SCH ×2 (09:11→18:04)
[2017-04-15] MEDS: diltiaZEM 180 mg/24 Hours CD Cap PO SCH (10:14)
[2017-04-15] MEDS: Bacitracin Ointment 30 GM TUBE TOP SCH (11:10)
--- NOTE | 2017-04-15 14:00 | CP.PCM.PN ---
<Kat Qureshi - Last Filed: 04/15/17 13:57> Subjective - Date & Time of Evaluation Date of Evaluation: 04/15/17 Time of Evaluation: 13:58 - Subjective Subjective: Patient has been seen and examined. No overnight events reported. No new complaints at this time. Denies fever, chills, chest pain, or SOB. Objective - Vital Signs/Intake and Output Vital Signs (last 24 hours): Temp Pulse Resp BP Pulse Ox 98.3 F 77 20 119/69 98 04/15/17 08:12 04/15/17 08:12 04/15/17 08:12 04/15/17 08:12 04/15/17 08:12 Intake and Output: 04/15/17 04/15/17 06:59 18:59 Intake Total 300 240 Balance 300 240 - Medications Medications: Current Medications Amiodarone HCl (Cordarone) 200 mg PO BID [facility] Last Admin: 04/15/17 09:10 Dose: 200 mg Aspirin (Ecotrin) 81 mg PO DAILY [facility] Last Admin: 04/15/17 09:10 Dose: 81 mg Bacitracin (Bacitracin) 0 gm TOP DAILY [facility] Last Admin: 04/15/17 11:10 Dose: 1 applic Diltiazem HCl (Cardizem Cd) 360 mg PO DAILY [facility] Last Admin: 04/15/17 10:14 Dose: 360 mg Docusate Sodium (Colace) 100 mg PO BID [facility] Last Admin: 04/15/17 10:18 Dose: 100 mg Famotidine (Pepcid) 20 mg PO DAILY [facility] Last Admin: 04/15/17 09:10 Dose: 20 mg Finasteride (Proscar) 5 mg PO DAILY [facility] Last Admin: 04/15/17 10:19 Dose: 5 mg Gabapentin (Neurontin) 300 mg PO TID [facility] Last Admin: 04/15/17 13:41 Dose: 300 mg Levetiracetam (Keppra) 500 mg PO BID [facility] Last Admin: 04/15/17 09:16 Dose: 500 mg Losartan Potassium (Cozaar) 25 mg PO DAILY [facility] Last Admin: 04/15/17 09:10 Dose: 25 mg Rosuvastatin Calcium (Crestor) 5 mg PO HS [facility] Last Admin: 04/14/17 22:07 Dose: 5 mg Tamsulosin HCl (Flomax) 0.4 mg PO DAILY [facility] Last Admin: 04/15/17 09:10 Dose: 0.4 mg Vitamin A (Vitamin A & D Oint Ud Foilpak) 1 ea TOP BID [facility] Last Admin: 04/15/17 09:11 Dose: 1 ea Warfarin Sodium (Coumadin) 4 mg PO 1800 [facility] Stop: 04/15/17 18:01 Zolpidem Tartrate (Ambien) 5 mg PO HS [facility] Last Admin: 04/14/17 22:07 Dose: 5 mg - Labs Labs: 04/13/17 07:11 04/13/17 07:11 PT 27.6 SECONDS (9.7-12.2) H 04/15/17 08:22 INR 2.4 04/15/17 08:22 APTT 38 SECONDS (21-34) H D 04/07/17 07:08 - Additional Findings Additional findings: - Constitutional Appears: Well, Non-toxic - Head Exam Head Exam: ATRAUMATIC, NORMAL INSPECTION, NORMOCEPHALIC - Eye Exam Eye Exam: EOMI, Normal appearance - ENT Exam ENT Exam: Mucous Membranes Moist - Neck Exam Neck Exam: absent: Lymphadenopathy - Respiratory Exam Respiratory Exam: Clear to Ausculation Bilateral, NORMAL BREATHING PATTERN. absent: Accessory Muscle Use - Cardiovascular Exam Cardiovascular Exam: +S1, +S2 - GI/Abdominal Exam GI & Abdominal Exam: Soft, Normal Bowel Sounds. absent: Tenderness, Organomegaly Additional comments: Surgical site wound in right inguinal region. Clean, dry, no dehiscence. - Extremities Exam Additional comments: B/L AKA. Surgical Site clean and dry w/o erythema. Small fluid collection and slightly tender to palpation. Right Stump w/ wound dressing. 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 He underwent bilateral thrombectomy on 02/05/17. The status of his bilateral lower legs worsened subsequently ( formation of bullae and sloughing of skin and these extremities cool to the touch and intense pain with minor palpation). Cultures from the bilateral lower legs revealed Serratia marcescens and Enterococcus faecalis. Blood Culture was positive for Bacillus species and Urine Cultures positive for Enterococcus faecalis. Because of the likelihood of sepsis, family decided on amputation. 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 Family has completed Medicaid Application and awaiting approval for [facility] vs [facility] placement. Plan: PAD S/P Bilateral AKA 03/04/17 Vascular Surgery (Dr. Kaur) on the case help appreciated Cardiology (Dr. Brown) on the case help appreciated Daily Coumadin Goal INR is 2.5 to 3.[address] Brown Advised dietary and nurse patient will need to be on a vitamin K free- dark leafy greens free diet Gabapentin 300 mg PO 3x/day 04/07 PT states improvement of UE strenght. Core strength is unstable but he is able to use wheelchair. They recommend Continue PT and Acute Rehab Insomnia Ambien 5 HS Cough CXR 03/22/17: Interval appearance of heterogeneous opacity at the right lung base may represent pneumonia or atelectasis. Otherwise no interval change. Increase opacity noted when compared to 02/20/17 CXR Promethazine PRN Hx Malignant HTN (Stable) B/P running on the low end, continue to monitor. Patient is asymptomatic Held Metoprolol 100 mg PO Q12H in light of hypotension on 03/17; given fluid bolus on 03/17 Cardizem 360 mg PO 1x/day Cozaar 25 mg PO 1x/day Hx Sepsis--Resolved Secondary to gangrenous bilateral legs, +blood culture code sepsis called on 03/03 Urine Culture (03/03/17): Enterococcus Faecalis-->sensitive to Vancomycin and PCN Blood cultures (03/03/17): No growth at 5 days Urine culture (03/02/17): Enterococcus Faecalis Blood culture (03/02/17): Bacillus species Blood Culture (03/02/17): no growth after 5 days Leg Right and Left (03/02/17): Serratia Marcescens and Enterococcus Faecalis Repeat Blood Culture (03/07): Negative at 5 days Repeat Urine Culture (04/06): NO growth Patient was treated with Ampicillin and Rocephin through 03/11/17. He was switched to Ciprofloxacin on 03/11/17 and this was discontinued by ID on 03/13/17. Hx Atrial Fibrillation (Stable) Amiodarone 200 mg PO 2x/day held Metoprolol 100 mg PO Q12H secondary to hypotension Cardizem 360 mg PO 1x/day INR 2.4 today . Coumadin 4 Today. Hx Seizure Disorder Because of Elevated LFTs his Dilantin was discontinued and Neurology Dr. Onesimo Hogan started him on Keppra 500 mg PO 2x/day Hx Multiple CVAs Crestor is being held considering the elevated LFTs and that his Lipid Profile is currently WNL. Repeat Lipid Panel in 1 month (Mid April) to see where we are with this. ASA 81 mg PO 1x/day Keep the blood pressure under control Hx Elevated LFTs-->resolved Could have been secondary to the Dilantin and the Crestor. The Crestor is being held and the Dilantin was switched over to Keppra. The LFTs have normalized as of 03/14/17 Hx Elevated WBC-->resolved Normalized Likely secondary to the Sepsis as mentioned above NO fevers Vitals are stable Hx Enlarged Prostate and Urinary Retention Proscar 5 mg PO 1x/day Flomax 0.4 mg PO 1x/day Patient had urinary retention on 03/20 Anemia Likely Secondary to Chronic Disease HgB/Hct are stable Prophylaxis Colace 100 mg PO 2x/day Pepcid 20 mg PO 1x/day Bacid 1 cap PO 2x/day with STOP on 04/14/17 Zofran 4 mg IV Q6H PRN N/V DVT Prophylaxis: Coumadin Daily Disposition: Medicaid has been approved. Daughter requests for [facility] for for [facility]Acute Rehab. She has been presented with several options by returned case inspector. Patient should only get Thursday and bloodwork for now on. Patient discussed with Attending Kat Qureshi - PGY-1 <Alexandra Skinner V - Last Filed: 04/16/17 11:51> Objective - Vital Signs/Intake and Output Vital Signs (last 24 hours): Temp Pulse Resp BP Pulse Ox 98.5 F 71 20 129/62 98 04/16/17 00:03 04/16/17 00:03 04/16/17 00:03 04/16/17 00:03 04/16/17 00:03 Intake and Output: 04/16/17 04/16/17 06:59 18:59 Intake Total 640 Balance 640 - Medications Medications: Current Medications Amiodarone HCl (Cordarone) 200 mg PO BID [facility] Last Admin: 04/16/17 09:49 Dose: 200 mg Aspirin (Ecotrin) 81 mg PO DAILY [facility] Last Admin: 04/16/17 09:48 Dose: 81 mg Bacitracin (Bacitracin) 0 gm TOP DAILY [facility] Last Admin: 04/15/17 11:10 Dose: 1 applic Diltiazem HCl (Cardizem Cd) 360 mg PO DAILY [facility] Last Admin: 04/16/17 09:50 Dose: 360 mg Docusate Sodium (Colace) 100 mg PO BID [facility] Last Admin: 04/16/17 09:48 Dose: 100 mg Famotidine (Pepcid) 20 mg PO DAILY [facility] Last Admin: 04/16/17 09:49 Dose: 20 mg Finasteride (Proscar) 5 mg PO DAILY [facility] Last Admin: 04/16/17 09:51 Dose: 5 mg Gabapentin (Neurontin) 300 mg PO TID [facility] Last Admin: 04/16/17 09:49 Dose: 300 mg Levetiracetam (Keppra) 500 mg PO BID [facility] Last Admin: 04/16/17 09:48 Dose: 500 mg Losartan Potassium (Cozaar) 25 mg PO DAILY [facility] Last Admin: 04/16/17 09:49 Dose: 25 mg Rosuvastatin Calcium (Crestor) 5 mg PO HS [facility] Last Admin: 04/15/17 22:16 Dose: 5 mg Tamsulosin HCl (Flomax) 0.4 mg PO DAILY [facility] Last Admin: 04/16/17 09:48 Dose: 0.4 mg Vitamin A (Vitamin A & D Oint Ud Foilpak) 1 ea TOP BID [facility] Last Admin: 04/16/17 09:49 Dose: 1 ea Warfarin Sodium (Coumadin) 3 mg PO 1800 [facility] Stop: 04/16/17 18:01 Zolpidem Tartrate (Ambien) 5 mg PO HS [facility] Last Admin: 04/15/17 22:16 Dose: 5 mg - Labs Labs: 04/16/17 07:43 04/16/17 07:43 PT 36.0 SECONDS (9.7-12.2) H* D 04/16/17 04:00 INR 3.1 04/16/17 04:00 APTT 38 SECONDS (21-34) H D 04/07/17 07:08 - Constitutional Appears: Non-toxic, No Acute Distress - Head Exam Head Exam: NORMAL INSPECTION - Eye Exam Eye Exam: EOMI - ENT Exam ENT Exam: Mucous Membranes Moist - Respiratory Exam Respiratory Exam: Clear to Ausculation Bilateral Attending/Attestation - Attestation I have personally seen and examined this patient.: Yes I have fully participated in the care of the patient.: Yes I have reviewed all pertinent clinical information, including history, physical exam and plan: Yes Notes (Text): This is late computer entry for 04/15/17. Patient seen, examined, and case discussed with day-time resident. Patient seen this afternoon Patient denies acute complaints. Patient seen eating lunch at bedside. Patient ordered for Coumadin 4mg PO X1 tonight. INR: 2.4 INR goal: 2.5 to 3.5 Case management and social work to keep ongoing talks about potential discharge with patient's daughter; please review last extensive case management note from 04/10/17. Assessment/Plan 1). PAD S/P Bilateral AKA 03/04/17 * Vascular Surgery (Dr. Kaur) on the case help appreciated * Cardiology (Dr. Brown) on the case help appreciated * Goal INR is 2.5 to 3.[address] Brown * Phyllis to Surgical Site to removed when Ok with Vascular Surgery Dr. Kaur -->mehran removed 03/31/17 * Gabapentin 300 mg PO 3x/day * Coumadin 4mg PO tonight; f/u inr tomorrow 2). Hx Malignant HTN-->Controlled * B/P running on the low end, continue to monitor. Patient is asymptomatic * Held Metoprolol 100 mg PO Q12H in light of hypotension on 03/17; given fluid bolus on 03/17 * Cardizem 360 mg PO 1x/day * Cozaar 25 mg PO 1x/day 3). Hx Sepsis--Resolved * Secondary to gangrenous bilateral legs, +blood culture code sepsis called on * Urine Culture (03/03/17): Enterococcus Faecalis-->sensitive to Vancomycin and PCN * Blood cultures (03/03/17): No growth at 5 days * Urine culture (03/02/17): Enterococcus Faecalis * Blood culture (03/02/17): Bacillus species * Blood Culture (03/02/17): no growth after 5 days * Leg Right and Left (03/02/17): Serratia Marcescens and Enterococcus Faecalis * Repeat Blood Culture (03/07): Negative at 5 days * Repeat Urine Culture (04/06): NO growth * Patient was treated with Ampicillin and Rocephin through 03/11/17. He was switched to Ciprofloxicin on 03/11/17 and this was discontinued by ID on 03/13/17. 4). Hx Atrial Fibrillation * Amiodarone 200 mg PO 2x/day * held Metoprolol 100 mg PO Q12H secondary to hypotension * Cardizem 360 mg PO 1x/day * Monitor for therapuetic INR * Goal INR is 2.5 to 3.[address] Brown 5). Hx Seizure Disorder * Because of Elevated LFTs his Dilantin was discontinued and Neurology Dr. Onesimo Hogan started him on Keppra 500 mg PO 2x/day 6). Hx Multiple CVAs * Crestor is being held considering the elevated LFTs and that his Lipid Profile is currently WNL. * Repeat Lipid Panel in 1 month to see where we are with this. * ASA 81 mg PO 1x/day * Keep the blood pressure under control 7). Hx Elevated LFTs-->resolved * Could have been secondary to the Dilantin and the Crestor. The Crestor is being held and the Dilantin was switched over to Keppra. * The LFTs have normalized as of 03/14/17 8). Hx Elevated WBC-->resolved * Normalized * Likely secondary to the Sepsis as mentioned above * NO fevers * Vitals are stable 9). Hx Enlarged Prostate and Urinary Retention * Proscar 5 mg PO 1x/day * Flomax 0.4 mg PO 1x/day * Patient had urinary retention on 03/20-->patient had urinary straight cath * Pelvix US (04/13/17): no retention noted 10). Anemia Likely Secondary to Chronic Disease * HgB/Hct are stable 11). 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 Patient does not qualify for acute rehab per discussion with case management. Case management and social work have had ongoing talks with the patient's daughter regarding what are available options and noting most recent note (04/10); daughter has refused many options that have been offered in light of receiving Medicaid number.
[2017-04-16 07:58] LABS: INR 3.1
[2017-04-16 08:04] LABS: BASO % 0.5 % (0.0-2.0); EOS # 0.1 K/uL (0.0-0.7); EOS % 1.9 % (0.0-4.0); HEMATOCRIT 35.7 % (35.0-51.0); LYMPH # 1.7 K/uL (1.0-4.3); LYMPH % 28.6 % (20.0-40.0); MEAN CELL VOLUME 77.5 fL (80.0-94.0); MEAN CORPUSCULAR HEMOGLOBIN 25.9 pg (27.0-31.0); MEAN CORPUSCULAR HGB CONC 33.4 g/dL (33.0-37.0); MONO # 0.3 K/uL (0.0-0.8); MONO % 5.2 % (0.0-10.0); RED CELL DISTRIBUTION WIDTH 15.9 % (11.5-14.5)
[2017-04-16 08:18] LABS: CHLORIDE 102 mmol/L (98-107); SODIUM 136 mmol/L (132-148)
[2017-04-16 08:21] LABS: ALB/GLOB RATIO 1.1 (1.0-2.1); ALKALINE PHOSPHATASE 108 U/L (38-126); ALT/SGPT 30 U/L (21-72); AST/SGOT 32 U/L (17-59); BILIRUBIN,TOTAL 0.5 mg/dL (0.2-1.3); BLOOD UREA NITROGEN 9 mg/dL (9-20); CARBON DIOXIDE 24 mmol/L (22-30); GFR AFRICAN-AMERICAN > 60; GLUCOSE,RANDOM 81 mg/dL (75-110); TOTAL PROTEIN 5.8 g/dL (6.3-8.3)
[2017-04-16 08:22] LABS: CALCIUM 8.2 mg/dl (8.6-10.4)
[2017-04-16] MEDS: Vitamins A & D Oint UD Foilpak TOP SCH ×2 (09:49→18:18)
[2017-04-16] MEDS: diltiaZEM 180 mg/24 Hours CD Cap PO SCH (09:50)
[2017-04-16] MEDS: Bacitracin Ointment 30 GM TUBE TOP SCH (10:35)
--- NOTE | 2017-04-16 11:53 | CP.PCM.PN ---
Subjective - Date & Time of Evaluation Date of Evaluation: 04/16/17 Time of Evaluation: 09:25 - Subjective Subjective: Patient has been seen and examined. No overnight events reported. No new complaints at this time. Denies fever, chills, chest pain, or SOB. Objective - Vital Signs/Intake and Output Vital Signs (last 24 hours): Temp Pulse Resp BP Pulse Ox 98.5 F 71 20 129/62 98 04/16/17 00:03 04/16/17 00:03 04/16/17 00:03 04/16/17 00:03 04/16/17 00:03 Intake and Output: 04/16/17 04/16/17 06:59 18:59 Intake Total 640 Balance 640 - Medications Medications: Current Medications Amiodarone HCl (Cordarone) 200 mg PO BID [facility] Last Admin: 04/16/17 09:49 Dose: 200 mg Aspirin (Ecotrin) 81 mg PO DAILY [facility] Last Admin: 04/16/17 09:48 Dose: 81 mg Bacitracin (Bacitracin) 0 gm TOP DAILY [facility] Last Admin: 04/15/17 11:10 Dose: 1 applic Diltiazem HCl (Cardizem Cd) 360 mg PO DAILY [facility] Last Admin: 04/16/17 09:50 Dose: 360 mg Docusate Sodium (Colace) 100 mg PO BID [facility] Last Admin: 04/16/17 09:48 Dose: 100 mg Famotidine (Pepcid) 20 mg PO DAILY [facility] Last Admin: 04/16/17 09:49 Dose: 20 mg Finasteride (Proscar) 5 mg PO DAILY [facility] Last Admin: 04/16/17 09:51 Dose: 5 mg Gabapentin (Neurontin) 300 mg PO TID [facility] Last Admin: 04/16/17 09:49 Dose: 300 mg Levetiracetam (Keppra) 500 mg PO BID [facility] Last Admin: 04/16/17 09:48 Dose: 500 mg Losartan Potassium (Cozaar) 25 mg PO DAILY [facility] Last Admin: 04/16/17 09:49 Dose: 25 mg Rosuvastatin Calcium (Crestor) 5 mg PO HS [facility] Last Admin: 04/15/17 22:16 Dose: 5 mg Tamsulosin HCl (Flomax) 0.4 mg PO DAILY [facility] Last Admin: 04/16/17 09:48 Dose: 0.4 mg Vitamin A (Vitamin A & D Oint Ud Foilpak) 1 ea TOP BID [facility] Last Admin: 04/16/17 09:49 Dose: 1 ea Warfarin Sodium (Coumadin) 3 mg PO 1800 [facility] Stop: 04/16/17 18:01 Zolpidem Tartrate (Ambien) 5 mg PO HS [facility] Last Admin: 04/15/17 22:16 Dose: 5 mg - Labs Labs: 04/16/17 07:43 04/16/17 07:43 PT 36.0 SECONDS (9.7-12.2) H* D 04/16/17 04:00 INR 3.1 04/16/17 04:00 APTT 38 SECONDS (21-34) H D 04/07/17 07:08 - Additional Findings Additional findings: - Constitutional Appears: Well, Non-toxic - Head Exam Head Exam: ATRAUMATIC, NORMAL INSPECTION, NORMOCEPHALIC - Eye Exam Eye Exam: EOMI, Normal appearance - ENT Exam ENT Exam: Mucous Membranes Moist - Neck Exam Neck Exam: absent: Lymphadenopathy - Respiratory Exam Respiratory Exam: Clear to Ausculation Bilateral, NORMAL BREATHING PATTERN. absent: Accessory Muscle Use - Cardiovascular Exam Cardiovascular Exam: +S1, +S2 - GI/Abdominal Exam GI & Abdominal Exam: Soft, Normal Bowel Sounds. absent: Tenderness, Organomegaly Additional comments: Surgical site wound in right inguinal region. Clean, dry, no dehiscence. - Extremities Exam Additional comments: B/L AKA. Surgical Site clean and dry w/o erythema. Small fluid collection and slightly tender to palpation. Right Stump w/ wound dressing. 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 He underwent bilateral thrombectomy on 02/05/17. The status of his bilateral lower legs worsened subsequently ( formation of bullae and sloughing of skin and these extremities cool to the touch and intense pain with minor palpation). Cultures from the bilateral lower legs revealed Serratia marcescens and Enterococcus faecalis. Blood Culture was positive for Bacillus species and Urine Cultures positive for Enterococcus faecalis. Because of the likelihood of sepsis, family decided on amputation. 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 Family has completed Medicaid Application and awaiting approval for [facility] vs [facility] placement. Plan: PAD S/P Bilateral AKA 03/04/17 Vascular Surgery (Dr. Kaur) on the case help appreciated Cardiology (Dr. Brown) on the case help appreciated Daily Coumadin n Goal INR is 2.5 to 3.[address] Brown Advised dietary and nurse patient will need to be on a vitamin K free- dark leafy greens free diet Gabapentin 300 mg PO 3x/day 04/07 PT states improvement of UE strenght. Core strength is unstable but he is able to use wheelchair. They recommend Continue PT and Acute Rehab Patient recieved no physical therapy today due to elevated PT. Will ask physical therapist to continue with therapy despite elevated PT. Insomnia Ambien 5 HS Cough CXR 03/22/17: Interval appearance of heterogeneous opacity at the right lung base may represent pneumonia or atelectasis. Otherwise no interval change. Increase opacity noted when compared to 02/20/17 CXR Promethazine PRN Hx Malignant HTN (Stable) B/P running on the low end, continue to monitor. Patient is asymptomatic Held Metoprolol 100 mg PO Q12H in light of hypotension on 03/17; given fluid bolus on 03/17 Cardizem 360 mg PO 1x/day Cozaar 25 mg PO 1x/day Hx Sepsis--Resolved Secondary to gangrenous bilateral legs, +blood culture code sepsis called on 03/03 Urine Culture (03/03/17): Enterococcus Faecalis-->sensitive to Vancomycin and PCN Blood cultures (03/03/17): No growth at 5 days Urine culture (03/02/17): Enterococcus Faecalis Blood culture (03/02/17): Bacillus species Blood Culture (03/02/17): no growth after 5 days Leg Right and Left (03/02/17): Serratia Marcescens and Enterococcus Faecalis Repeat Blood Culture (03/07): Negative at 5 days Repeat Urine Culture (04/06): NO growth Patient was treated with Ampicillin and Rocephin through 03/11/17. He was switched to Ciprofloxacin on 03/11/17 and this was discontinued by ID on 03/13/17. Hx Atrial Fibrillation (Stable) Amiodarone 200 mg PO 2x/day held Metoprolol 100 mg PO Q12H secondary to hypotension Cardizem 360 mg PO 1x/day INR 3.1 today . Coumadin 3 Today. Hx Seizure Disorder Because of Elevated LFTs his Dilantin was discontinued and Neurology Dr. Onesimo Hogan started him on Keppra 500 mg PO 2x/day Hx Multiple CVAs Crestor is being held considering the elevated LFTs and that his Lipid Profile is currently WNL. Repeat Lipid Panel in 1 month (Mid April) to see where we are with this. ASA 81 mg PO 1x/day Keep the blood pressure under control Hx Elevated LFTs-->resolved Could have been secondary to the Dilantin and the Crestor. The Crestor is being held and the Dilantin was switched over to Keppra. The LFTs have normalized as of 03/14/17 Hx Elevated WBC-->resolved Normalized Likely secondary to the Sepsis as mentioned above NO fevers Vitals are stable Hx Enlarged Prostate and Urinary Retention Proscar 5 mg PO 1x/day Flomax 0.4 mg PO 1x/day Patient had urinary retention on 03/20 Anemia Likely Secondary to Chronic Disease HgB/Hct are stable Prophylaxis Colace 100 mg PO 2x/day Pepcid 20 mg PO 1x/day Bacid 1 cap PO 2x/day with STOP on 04/14/17 Zofran 4 mg IV Q6H PRN N/V DVT Prophylaxis: Coumadin Daily Disposition: Medicaid has been approved. Daughter requests for [facility] for for [facility]/Acute Rehab. She has been presented with several options by director of casework. Patient should only get Thursday and bloodwork for now on. Patient discussed with Attending Kat Qureshi - PGY-1
[2017-04-17 06:44] LABS: INR 3.5
[2017-04-17] MEDS: diltiaZEM 180 mg/24 Hours CD Cap PO SCH (09:38)
[2017-04-17] MEDS: Vitamins A & D Oint UD Foilpak TOP SCH ×2 (09:39→17:35)
[2017-04-17] MEDS: Bacitracin Ointment 30 GM TUBE TOP SCH (10:38)
--- NOTE | 2017-04-17 15:01 | CP.PCM.PN ---
Subjective - Date & Time of Evaluation Date of Evaluation: 04/17/17 Time of Evaluation: 14:59 - Subjective Subjective: Patient has been seen and examined. No overnight events reported. No new complaints at this time. Denies fever, chills, chest pain, or SOB. Objective - Vital Signs/Intake and Output Vital Signs (last 24 hours): Temp Pulse Resp BP Pulse Ox 97.9 F 60 20 125/73 98 04/17/17 09:03 04/17/17 09:03 04/17/17 09:03 04/17/17 09:03 04/17/17 09:03 Intake and Output: 04/17/17 04/17/17 06:59 18:59 Intake Total 240 600 Output Total 500 Balance 240 100 - Medications Medications: Current Medications Amiodarone HCl (Cordarone) 200 mg PO BID [facility] Last Admin: 04/17/17 09:36 Dose: 200 mg Aspirin (Ecotrin) 81 mg PO DAILY [facility] Last Admin: 04/17/17 09:36 Dose: 81 mg Bacitracin (Bacitracin) 0 gm TOP DAILY [facility] Last Admin: 04/17/17 10:38 Dose: 1 applic Diltiazem HCl (Cardizem Cd) 360 mg PO DAILY [facility] Last Admin: 04/17/17 09:38 Dose: 360 mg Docusate Sodium (Colace) 100 mg PO BID [facility] Last Admin: 04/17/17 09:36 Dose: 100 mg Famotidine (Pepcid) 20 mg PO DAILY [facility] Last Admin: 04/17/17 09:35 Dose: 20 mg Finasteride (Proscar) 5 mg PO DAILY [facility] Last Admin: 04/17/17 09:38 Dose: 5 mg Gabapentin (Neurontin) 300 mg PO TID [facility] Last Admin: 04/17/17 13:00 Dose: 300 mg Levetiracetam (Keppra) 500 mg PO BID [facility] Last Admin: 04/17/17 09:35 Dose: 500 mg Losartan Potassium (Cozaar) 25 mg PO DAILY [facility] Last Admin: 04/17/17 09:35 Dose: 25 mg Rosuvastatin Calcium (Crestor) 5 mg PO HS [facility] Last Admin: 04/16/17 21:33 Dose: 5 mg Tamsulosin HCl (Flomax) 0.4 mg PO DAILY [facility] Last Admin: 04/17/17 09:36 Dose: 0.4 mg Vitamin A (Vitamin A & D Oint Ud Foilpak) 1 ea TOP BID [facility] Last Admin: 04/17/17 09:39 Dose: 1 ea Warfarin Sodium (Coumadin) 3 mg PO 1800 [facility] Stop: 04/17/17 18:01 Zolpidem Tartrate (Ambien) 5 mg PO HS [facility] Last Admin: 04/16/17 21:33 Dose: 5 mg - Labs Labs: 04/16/17 07:43 04/16/17 07:43 PT 40.7 SECONDS (9.7-12.2) H* 04/17/17 06:31 INR 3.5 04/17/17 06:31 APTT 38 SECONDS (21-34) H D 04/07/17 07:08 - Additional Findings Additional findings: - Constitutional Appears: Well, Non-toxic - Head Exam Head Exam: ATRAUMATIC, NORMAL INSPECTION, NORMOCEPHALIC - Eye Exam Eye Exam: EOMI, Normal appearance - ENT Exam ENT Exam: Mucous Membranes Moist - Neck Exam Neck Exam: absent: Lymphadenopathy - Respiratory Exam Respiratory Exam: Clear to Ausculation Bilateral, NORMAL BREATHING PATTERN. absent: Accessory Muscle Use - Cardiovascular Exam Cardiovascular Exam: +S1, +S2 - GI/Abdominal Exam GI & Abdominal Exam: Soft, Normal Bowel Sounds. absent: Tenderness, Organomegaly Additional comments: Surgical site wound in right inguinal region. Clean, dry, no dehiscence. - Extremities Exam Additional comments: B/L AKA. Surgical Site clean and dry w/o erythema. Small fluid collection and slightly tender to palpation. Right Stump w/ wound dressing. 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 He underwent bilateral thrombectomy on 02/05/17. The status of his bilateral lower legs worsened subsequently ( formation of bullae and sloughing of skin and these extremities cool to the touch and intense pain with minor palpation). Cultures from the bilateral lower legs revealed Serratia marcescens and Enterococcus faecalis. Blood Culture was positive for Bacillus species and Urine Cultures positive for Enterococcus faecalis. Because of the likelihood of sepsis, family decided on amputation. 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 Family has completed Medicaid Application and awaiting approval for [facility] vs [facility] placement. Plan: PAD S/P Bilateral AKA 03/04/17 Vascular Surgery (Dr. Kaur) on the case help appreciated Cardiology (Dr. Brown) on the case help appreciated Daily Coumadin Goal INR is 2.5 to 3.[address] Brown Advised dietary and nurse patient will need to be on a vitamin K free- dark leafy greens free diet Gabapentin 300 mg PO 3x/day 04/07 PT states improvement of UE strenght. Core strength is unstable but he is able to use wheelchair. They recommend Continue PT and Acute Rehab Patient recieved no physical therapy today due to elevated PT. Will ask physical therapist to continue with therapy despite elevated PT. Insomnia Ambien 5 HS Cough CXR 03/22/17: Interval appearance of heterogeneous opacity at the right lung base may represent pneumonia or atelectasis. Otherwise no interval change. Increase opacity noted when compared to 02/20/17 CXR Promethazine PRN Hx Malignant HTN (Stable) B/P running on the low end, continue to monitor. Patient is asymptomatic Held Metoprolol 100 mg PO Q12H in light of hypotension on 03/17; given fluid bolus on 03/17 Cardizem 360 mg PO 1x/day Cozaar 25 mg PO 1x/day Hx Sepsis--Resolved Secondary to gangrenous bilateral legs, +blood culture code sepsis called on 03/03 Urine Culture (03/03/17): Enterococcus Faecalis-->sensitive to Vancomycin and PCN Blood cultures (03/03/17): No growth at 5 days Urine culture (03/02/17): Enterococcus Faecalis Blood culture (03/02/17): Bacillus species Blood Culture (03/02/17): no growth after 5 days Leg Right and Left (03/02/17): Serratia Marcescens and Enterococcus Faecalis Repeat Blood Culture (03/07): Negative at 5 days Repeat Urine Culture (04/06): NO growth Patient was treated with Ampicillin and Rocephin through 03/11/17. He was switched to Ciprofloxacin on 03/11/17 and this was discontinued by ID on 03/13/17. Hx Atrial Fibrillation (Stable) Amiodarone 200 mg PO 2x/day held Metoprolol 100 mg PO Q12H secondary to hypotension Cardizem 360 mg PO 1x/day INR 3.5 today . Coumadin 3 Today. Hx Seizure Disorder Because of Elevated LFTs his Dilantin was discontinued and Neurology Dr. Onesimo Hogan started him on Keppra 500 mg PO 2x/day Hx Multiple CVAs Crestor is being held considering the elevated LFTs and that his Lipid Profile is currently WNL. Repeat Lipid Panel in 1 month (Mid April) to see where we are with this. ASA 81 mg PO 1x/day Keep the blood pressure under control Hx Elevated LFTs-->resolved Could have been secondary to the Dilantin and the Crestor. The Crestor is being held and the Dilantin was switched over to Keppra. The LFTs have normalized as of 03/14/17 Hx Elevated WBC-->resolved Normalized Likely secondary to the Sepsis as mentioned above NO fevers Vitals are stable Hx Enlarged Prostate and Urinary Retention Proscar 5 mg PO 1x/day Flomax 0.4 mg PO 1x/day Patient had urinary retention on 03/20 Anemia Likely Secondary to Chronic Disease HgB/Hct are stable Prophylaxis Colace 100 mg PO 2x/day Pepcid 20 mg PO 1x/day Bacid 1 cap PO 2x/day with STOP on 04/14/17 Zofran 4 mg IV Q6H PRN N/V DVT Prophylaxis: Coumadin Daily Disposition: Medicaid has been approved. [facility]. She has been presented with several options by case investigator. Patient should only get Thursday and bloodwork for now on. Patient discussed with Attending Kat Qureshi - PGY-1
[2017-04-18] MEDS: diltiaZEM 180 mg/24 Hours CD Cap PO SCH (10:34)
[2017-04-18] MEDS: Vitamins A & D Oint UD Foilpak TOP SCH ×2 (11:14→18:18)
[2017-04-18] MEDS: Bacitracin Ointment 30 GM TUBE TOP SCH (11:27)
--- NOTE | 2017-04-18 12:49 | CP.PCM.PN ---
Subjective - Date & Time of Evaluation Date of Evaluation: 04/18/17 Time of Evaluation: 12:46 - Subjective Subjective: Patient has been seen and examined. No overnight events reported. No new complaints at this time. Denies fever, chills, chest pain, or SOB. Objective - Vital Signs/Intake and Output Vital Signs (last 24 hours): Temp Pulse Resp BP Pulse Ox 98.3 F 68 20 155/62 H 97 04/18/17 08:00 04/18/17 08:00 04/18/17 08:00 04/18/17 08:00 04/18/17 08:00 Intake and Output: 04/18/17 04/18/17 06:59 18:59 Intake Total 200 Balance 200 - Medications Medications: Current Medications Amiodarone HCl (Cordarone) 200 mg PO BID [facility] Last Admin: 04/18/17 10:35 Dose: 200 mg Aspirin (Ecotrin) 81 mg PO DAILY [facility] Last Admin: 04/18/17 10:34 Dose: 81 mg Bacitracin (Bacitracin) 0 gm TOP DAILY [facility] Last Admin: 04/18/17 11:27 Dose: 1 applic Diltiazem HCl (Cardizem Cd) 360 mg PO DAILY [facility] Last Admin: 04/18/17 10:34 Dose: 360 mg Famotidine (Pepcid) 20 mg PO DAILY [facility] Last Admin: 04/18/17 10:35 Dose: 20 mg Finasteride (Proscar) 5 mg PO DAILY [facility] Last Admin: 04/18/17 10:35 Dose: 5 mg Gabapentin (Neurontin) 300 mg PO TID [facility] Last Admin: 04/18/17 11:10 Dose: 300 mg Levetiracetam (Keppra) 500 mg PO BID [facility] Last Admin: 04/18/17 10:35 Dose: 500 mg Losartan Potassium (Cozaar) 25 mg PO DAILY [facility] Last Admin: 04/18/17 10:35 Dose: 25 mg Rosuvastatin Calcium (Crestor) 5 mg PO HS [facility] Last Admin: 04/17/17 21:06 Dose: 5 mg Tamsulosin HCl (Flomax) 0.4 mg PO DAILY [facility] Last Admin: 04/18/17 10:35 Dose: 0.4 mg Vitamin A (Vitamin A & D Oint Ud Foilpak) 1 ea TOP BID [facility] Last Admin: 04/18/17 11:14 Dose: 1 ea Warfarin Sodium (Coumadin) 4 mg PO 1800 [facility] Stop: 04/18/17 18:01 Zolpidem Tartrate (Ambien) 5 mg PO HS [facility] Last Admin: 04/17/17 21:06 Dose: 5 mg - Labs Labs: 04/16/17 07:43 04/16/17 07:43 PT 35.3 SECONDS (9.7-12.2) H* D 04/18/17 07:14 INR 3.0 04/18/17 07:14 APTT 38 SECONDS (21-34) H D 04/07/17 07:08 - Additional Findings Additional findings: - Constitutional Appears: Well, Non-toxic - Head Exam Head Exam: ATRAUMATIC, NORMAL INSPECTION, NORMOCEPHALIC - Eye Exam Eye Exam: EOMI, Normal appearance - ENT Exam ENT Exam: Mucous Membranes Moist - Neck Exam Neck Exam: absent: Lymphadenopathy - Respiratory Exam Respiratory Exam: Clear to Ausculation Bilateral, NORMAL BREATHING PATTERN. absent: Accessory Muscle Use - Cardiovascular Exam Cardiovascular Exam: +S1, +S2 - GI/Abdominal Exam GI & Abdominal Exam: Soft, Normal Bowel Sounds. absent: Tenderness, Organomegaly Additional comments: Surgical site wound in right inguinal region. Clean, dry, no dehiscence. - Extremities Exam Additional comments: B/L AKA. Surgical Site clean and dry w/o erythema. Small fluid collection and slightly tender to palpation. Right Stump w/ wound dressing. - Neurological Exam Neurological Exam: Alert, Awake, Oriented x3 - Psychiatric Exam Psychiatric exam: Normal Affect, Normal Mood Assessment and Plan - Assessment and Plan (Free Text) Assessment: PAD S/P Bilateral AKA 03/04/17 Vascular Surgery (Dr. Kaur) on the case help appreciated Cardiology (Dr. Brown) on the case help appreciated Daily Coumadin Goal INR is 2.5 to 3.[address] Brown Advised dietary and nurse patient will need to be on a vitamin K free- dark leafy greens free diet Gabapentin 300 mg PO 3x/day 04/07 PT states improvement of UE strenght. Core strength is unstable but he is able to use wheelchair. They recommend Continue PT and Acute Rehab Patient recieved no physical therapy today due to elevated PT. Will ask physical therapist to continue with therapy despite elevated PT. Insomnia Ambien 5 HS Cough CXR 03/22/17: Interval appearance of heterogeneous opacity at the right lung base may represent pneumonia or atelectasis. Otherwise no interval change. Increase opacity noted when compared to 02/20/17 CXR Promethazine PRN Hx Malignant HTN (Stable) B/P running on the low end, continue to monitor. Patient is asymptomatic Held Metoprolol 100 mg PO Q12H in light of hypotension on 03/17; given fluid bolus on 03/17 Cardizem 360 mg PO 1x/day Cozaar 25 mg PO 1x/day Hx Sepsis--Resolved Secondary to gangrenous bilateral legs, +blood culture code sepsis called on 03/03 Urine Culture (03/03/17): Enterococcus Faecalis-->sensitive to Vancomycin and PCN Blood cultures (03/03/17): No growth at 5 days Urine culture (03/02/17): Enterococcus Faecalis Blood culture (03/02/17): Bacillus species Blood Culture (03/02/17): no growth after 5 days Leg Right and Left (03/02/17): Serratia Marcescens and Enterococcus Faecalis Repeat Blood Culture (03/07): Negative at 5 days Repeat Urine Culture (04/06): NO growth Patient was treated with Ampicillin and Rocephin through 03/11/17. He was switched to Ciprofloxacin on 03/11/17 and this was discontinued by ID on 03/13/17. Hx Atrial Fibrillation (Stable) Amiodarone 200 mg PO 2x/day held Metoprolol 100 mg PO Q12H secondary to hypotension Cardizem 360 mg PO 1x/day INR 3 today . Coumadin 4 Today. Hx Seizure Disorder Because of Elevated LFTs his Dilantin was discontinued and Neurology Dr. Onesimo Hogan started him on Keppra 500 mg PO 2x/day Hx Multiple CVAs Crestor is being held considering the elevated LFTs and that his Lipid Profile is currently WNL. Repeat Lipid Panel in 1 month (Mid April) to see where we are with this. ASA 81 mg PO 1x/day Keep the blood pressure under control Hx Elevated LFTs-->resolved Could have been secondary to the Dilantin and the Crestor. The Crestor is being held and the Dilantin was switched over to Keppra. The LFTs have normalized as of 03/14/17 Hx Elevated WBC-->resolved Normalized Likely secondary to the Sepsis as mentioned above NO fevers Vitals are stable Hx Enlarged Prostate and Urinary Retention Proscar 5 mg PO 1x/day Flomax 0.4 mg PO 1x/day Patient had urinary retention on 03/20 Anemia Likely Secondary to Chronic Disease HgB/Hct are stable Prophylaxis Colace 100 mg PO 2x/day Pepcid 20 mg PO 1x/day Bacid 1 cap PO 2x/day with STOP on 04/14/17 Zofran 4 mg IV Q6H PRN N/V DVT Prophylaxis: Coumadin Daily Disposition: Medicaid has been approved. Daughter requests for [facility] for for TRENT/Acute Rehab. She has been presented with several options by spring encaser. Patient should only get Thursday and bloodwork for now on.
[2017-04-19] MEDS: diltiaZEM 180 mg/24 Hours CD Cap PO SCH (09:23)
[2017-04-19] MEDS: Vitamins A & D Oint UD Foilpak TOP SCH (09:23)
[2017-04-19] MEDS: Bacitracin Ointment 30 GM TUBE TOP SCH (09:25)
[2017-04-19 09:32] LABS: INR 2.5
--- NOTE | 2017-04-19 09:37 | CP.PCM.PN ---
<Edgar Rojsa - Last Filed: 04/19/17 09:58> Subjective - Date & Time of Evaluation Date of Evaluation: 04/19/17 Time of Evaluation: 09:58 - Subjective Subjective: Patient has been seen and examined. No overnight events reported. No new complaints at this time. Denies fever, chills, chest pain, or SOB. Objective - Vital Signs/Intake and Output Vital Signs (last 24 hours): Temp Pulse Resp BP Pulse Ox 98.3 F 60 20 152/79 H 99 04/19/17 07:41 04/19/17 07:41 04/19/17 07:41 04/19/17 07:41 04/19/17 07:41 Intake and Output: 04/19/17 04/19/17 06:59 18:59 Intake Total 540 Balance 540 - Medications Medications: Current Medications Amiodarone HCl (Cordarone) 200 mg PO BID [facility] Last Admin: 04/18/17 18:17 Dose: 200 mg Aspirin (Ecotrin) 81 mg PO DAILY [facility] Last Admin: 04/18/17 10:34 Dose: 81 mg Bacitracin (Bacitracin) 0 gm TOP DAILY [facility] Last Admin: 04/18/17 11:27 Dose: 1 applic Diltiazem HCl (Cardizem Cd) 360 mg PO DAILY [facility] Last Admin: 04/18/17 10:34 Dose: 360 mg Famotidine (Pepcid) 20 mg PO DAILY [facility] Last Admin: 04/18/17 10:35 Dose: 20 mg Finasteride (Proscar) 5 mg PO DAILY [facility] Last Admin: 04/18/17 10:35 Dose: 5 mg Gabapentin (Neurontin) 300 mg PO TID [facility] Last Admin: 04/18/17 18:21 Dose: 300 mg Levetiracetam (Keppra) 500 mg PO BID [facility] Last Admin: 04/18/17 18:17 Dose: 500 mg Losartan Potassium (Cozaar) 25 mg PO DAILY [facility] Last Admin: 04/18/17 10:35 Dose: 25 mg Rosuvastatin Calcium (Crestor) 5 mg PO HS [facility] Last Admin: 04/18/17 21:49 Dose: 5 mg Tamsulosin HCl (Flomax) 0.4 mg PO DAILY [facility] Last Admin: 04/18/17 10:35 Dose: 0.4 mg Vitamin A (Vitamin A & D Oint Ud Foilpak) 1 ea TOP BID [facility] Last Admin: 04/18/17 18:18 Dose: 1 ea Zolpidem Tartrate (Ambien) 5 mg PO HS [facility] Last Admin: 04/18/17 21:49 Dose: 5 mg - Labs Labs: 04/16/17 07:43 04/16/17 07:43 PT 35.3 SECONDS (9.7-12.2) H* D 04/18/17 07:14 INR 3.0 04/18/17 07:14 APTT 38 SECONDS (21-34) H D 04/07/17 07:08 - Additional Findings Additional findings: - Constitutional Appears: Well, Non-toxic - Head Exam Head Exam: ATRAUMATIC, NORMAL INSPECTION, NORMOCEPHALIC - Eye Exam Eye Exam: EOMI, Normal appearance - ENT Exam ENT Exam: Mucous Membranes Moist - Neck Exam Neck Exam: absent: Lymphadenopathy - Respiratory Exam Respiratory Exam: Clear to Ausculation Bilateral, NORMAL BREATHING PATTERN. absent: Accessory Muscle Use - Cardiovascular Exam Cardiovascular Exam: +S1, +S2 - GI/Abdominal Exam GI & Abdominal Exam: Soft, Normal Bowel Sounds. absent: Tenderness, Organomegaly Additional comments: Surgical site wound in right inguinal region. Clean, dry, no dehiscence. - Extremities Exam Additional comments: B/L AKA. Surgical Site clean and dry w/o erythema. Small fluid collection and slightly tender to palpation. Right Stump w/ wound dressing. - Neurological Exam Neurological Exam: Alert, Awake, Oriented x3 - Psychiatric Exam Assessment and Plan - Assessment and Plan (Free Text) Assessment: PAD S/P Bilateral AKA 03/04/17 Vascular Surgery (Dr. Kaur) on the case help appreciated Cardiology (Dr. Brown) on the case help appreciated Daily Coumadin Goal INR is 2.5 to 3.[address] Brown Advised dietary and nurse patient will need to be on a vitamin K free- dark leafy greens free diet Gabapentin 300 mg PO 3x/day 04/07 PT states improvement of UE strenght. Core strength is unstable but he is able to use wheelchair. They recommend Continue PT and Acute Rehab Patient recieved no physical therapy today due to elevated PT. Will ask physical therapist to continue with therapy despite elevated PT. Insomnia Ambien 5 HS Cough CXR 03/22/17: Interval appearance of heterogeneous opacity at the right lung base may represent pneumonia or atelectasis. Otherwise no interval change. Increase opacity noted when compared to 02/20/17 CXR Promethazine PRN Hx Malignant HTN (Stable) B/P running on the low end, continue to monitor. Patient is asymptomatic Held Metoprolol 100 mg PO Q12H in light of hypotension on 03/17; given fluid bolus on 03/17 Cardizem 360 mg PO 1x/day Cozaar 25 mg PO 1x/day Hx Sepsis--Resolved Secondary to gangrenous bilateral legs, +blood culture code sepsis called on 03/03 Urine Culture (03/03/17): Enterococcus Faecalis-->sensitive to Vancomycin and PCN Blood cultures (03/03/17): No growth at 5 days Urine culture (03/02/17): Enterococcus Faecalis Blood culture (03/02/17): Bacillus species Blood Culture (03/02/17): no growth after 5 days Leg Right and Left (03/02/17): Serratia Marcescens and Enterococcus Faecalis Repeat Blood Culture (03/07): Negative at 5 days Repeat Urine Culture (04/06): NO growth Patient was treated with Ampicillin and Rocephin through 03/11/17. He was switched to Ciprofloxacin on 03/11/17 and this was discontinued by ID on 03/13/17. Hx Atrial Fibrillation (Stable) Amiodarone 200 mg PO 2x/day held Metoprolol 100 mg PO Q12H secondary to hypotension Cardizem 360 mg PO 1x/day INR 3 today . Coumadin 4 Today. Hx Seizure Disorder Because of Elevated LFTs his Dilantin was discontinued and Neurology Dr. Onesimo Hogan started him on Keppra 500 mg PO 2x/day Hx Multiple CVAs Crestor is being held considering the elevated LFTs and that his Lipid Profile is currently WNL. Repeat Lipid Panel in 1 month (Mid April) to see where we are with this. ASA 81 mg PO 1x/day Keep the blood pressure under control Hx Elevated LFTs-->resolved Could have been secondary to the Dilantin and the Crestor. The Crestor is being held and the Dilantin was switched over to Keppra. The LFTs have normalized as of 03/14/17 Hx Elevated WBC-->resolved Normalized Likely secondary to the Sepsis as mentioned above NO fevers Vitals are stable Hx Enlarged Prostate and Urinary Retention Proscar 5 mg PO 1x/day Flomax 0.4 mg PO 1x/day Patient had urinary retention on 03/20 Anemia Likely Secondary to Chronic Disease HgB/Hct are stable Prophylaxis Colace 100 mg PO 2x/day Pepcid 20 mg PO 1x/day Bacid 1 cap PO 2x/day with STOP on 04/14/17 Zofran 4 mg IV Q6H PRN N/V DVT Prophylaxis: Coumadin Daily Disposition: Medicaid has been approved. [facility] for [facility]/Acute Rehab. She has been presented with several options by child support case officer. Patient should only get Thursday and bloodwork for now on. <Ignacio Hernandez H - Last Filed: 04/19/17 11:42> Objective - Vital Signs/Intake and Output Vital Signs (last 24 hours): Temp Pulse Resp BP Pulse Ox 98.3 F 60 20 152/79 H 99 04/19/17 07:41 04/19/17 07:41 04/19/17 07:41 04/19/17 07:41 04/19/17 07:41 Intake and Output: 04/19/17 04/19/17 06:59 18:59 Intake Total 540 Balance 540 - Medications Medications: Current Medications Amiodarone HCl (Cordarone) 200 mg PO BID [facility] Last Admin: 04/19/17 09:23 Dose: 200 mg Aspirin (Ecotrin) 81 mg PO DAILY [facility] Last Admin: 04/19/17 09:23 Dose: 81 mg Bacitracin (Bacitracin) 0 gm TOP DAILY [facility] Last Admin: 04/19/17 09:25 Dose: 1 applic Diltiazem HCl (Cardizem Cd) 360 mg PO DAILY [facility] Last Admin: 04/19/17 09:23 Dose: 360 mg Famotidine (Pepcid) 20 mg PO DAILY [facility] Last Admin: 04/19/17 09:23 Dose: 20 mg Finasteride (Proscar) 5 mg PO DAILY [facility] Last Admin: 04/19/17 09:23 Dose: 5 mg Gabapentin (Neurontin) 300 mg PO TID [facility] Last Admin: 04/19/17 09:22 Dose: 300 mg Levetiracetam (Keppra) 500 mg PO BID [facility] Last Admin: 04/19/17 09:23 Dose: 500 mg Losartan Potassium (Cozaar) 25 mg PO DAILY [facility] Last Admin: 04/19/17 09:23 Dose: 25 mg Rosuvastatin Calcium (Crestor) 5 mg PO HS [facility] Last Admin: 04/18/17 21:49 Dose: 5 mg Tamsulosin HCl (Flomax) 0.4 mg PO DAILY [facility] Last Admin: 04/19/17 09:23 Dose: 0.4 mg Vitamin A (Vitamin A & D Oint Ud Foilpak) 1 ea TOP BID [facility] Last Admin: 04/19/17 09:23 Dose: 1 ea Zolpidem Tartrate (Ambien) 5 mg PO HS [facility] Last Admin: 04/18/17 21:49 Dose: 5 mg - Labs Labs: 04/16/17 07:43 04/16/17 07:43 PT 29.6 SECONDS (9.7-12.2) H* D 04/19/17 09:18 INR 2.5 D 04/19/17 09:18 APTT 38 SECONDS (21-34) H D 04/07/17 07:08 Attending/Attestation - Attestation I have personally seen and examined this patient.: Yes I have fully participated in the care of the patient.: Yes I have reviewed all pertinent clinical information, including history, physical exam and plan: Yes Notes (Text): Medical Attending: Patient was seen and examined by me. Agree with the above note by the resident I will not be writing an extensive note. The patient has been here since 2016. Please see the above by resident He has had an bilateral AKA on 03/04 and when I saw him reported no pain at the sights of the stump His blood pressure is also ok at this time He previously had a lot of sepsis and infection complications and this has resolved. He denied fevers and chills. Only lab work every couple of days now. There is a history of atrial fibrillation and he's on coumadin, recent INR 2.5 Also a history of multple CVAs and so needs to be on BP meds, statin, ASA It looks like he has Medicad now, at some point hopefully can go to [facility]. thank you Ignacio Hernandez
[2017-04-20 08:32] LABS: BASO % 0.3 % (0.0-2.0); EOS # 0.1 K/uL (0.0-0.7); EOS % 1.7 % (0.0-4.0); MEAN CELL VOLUME 76.7 fL (80.0-94.0); MEAN CORPUSCULAR HEMOGLOBIN 25.6 pg (27.0-31.0); MEAN CORPUSCULAR HGB CONC 33.4 g/dL (33.0-37.0); MEAN PLATELET VOLUME 8.1 fL (7.2-11.7); MONO # 0.4 K/uL (0.0-0.8); MONO % 6.3 % (0.0-10.0); RED CELL DISTRIBUTION WIDTH 15.8 % (11.5-14.5); WHITE BLOOD COUNT 6.1 K/uL (4.8-10.8)
[2017-04-20 08:38] LABS: CHLORIDE 102 mmol/L (98-107); SODIUM 133 mmol/L (132-148)
[2017-04-20 08:39] LABS: POTASSIUM 3.6 mmol/L (3.6-5.2)
[2017-04-20 08:41] LABS: ALB/GLOB RATIO 1.1 (1.0-2.1); ALKALINE PHOSPHATASE 89 U/L (38-126); AST/SGOT 20 U/L (17-59); BILIRUBIN,TOTAL 0.5 mg/dL (0.2-1.3); CARBON DIOXIDE 25 mmol/L (22-30); GFR AFRICAN-AMERICAN > 60; TOTAL PROTEIN 5.5 g/dL (6.3-8.3)
[2017-04-20 08:42] LABS: ALT/SGPT 34 U/L (21-72); BLOOD UREA NITROGEN 13 mg/dL (9-20); CALCIUM 7.9 mg/dl (8.6-10.4); GLUCOSE,RANDOM 83 mg/dL (75-110)
[2017-04-20] MEDS ORDERED: diltiaZEM 180 mg/24 Hours CD Cap PO SCH (10:00)
[2017-04-20] MEDS: Vitamins A & D Oint UD Foilpak TOP SCH ×2 (10:54→18:55)
[2017-04-20] MEDS: Bacitracin Ointment 30 GM TUBE TOP SCH (10:54)
[2017-04-20 11:50] LABS: INR 2.4
[2017-04-20 17:10] VITALS: BP 119/60; PULSE 50; RESP 20; TEMP 97.2; O2SAT 98
--- NOTE | 2017-04-20 19:37 | CP.PCM.DIS ---
Provider - Provider Date of Admission: 02/04/17 12:46 Attending physician: Alexandra Skinner DO Hospital Course - Lab Results Lab Results: Micro Results 03/10/17 22:13 Urine Urine Culture - Final No Growth (<1,000 CFU/ML) 03/07/17 06:00 Blood Blood Culture - Final NO GROWTH AFTER 5 DAYS 03/07/17 06:00 Blood Gram Stain - Final TEST NOT PERFORMED 03/07/17 05:30 Blood Blood Culture - Final NO GROWTH AFTER 5 DAYS 03/07/17 05:30 Blood Gram Stain - Final TEST NOT PERFORMED 03/09/17 01:10 Nose MRSA Culture - Final MRSA NOT DETECTED 03/03/17 11:00 Blood Blood Culture - Final NO GROWTH AFTER 5 DAYS 03/03/17 11:00 Blood Gram Stain - Final TEST NOT PERFORMED 03/03/17 11:15 Blood Blood Culture - Final NO GROWTH AFTER 5 DAYS 03/03/17 11:15 Blood Gram Stain - Final TEST NOT PERFORMED 03/02/17 14:00 Blood Blood Culture - Final NO GROWTH AFTER 5 DAYS 03/02/17 14:00 Blood Gram Stain - Final TEST NOT PERFORMED 03/05/17 06:38 Naris MRSA Culture (Admit) - Final MRSA NOT DETECTED 03/03/17 12:00 Stool Stool Culture - Final NO SALMONELLA, SHIGELLA OR CAMPYLOBACTER ISOLATED. 03/02/17 20:58 Urine,Catheterized Urine Culture - Final Enterococcus Faecalis 03/03/17 Unknown Urine,Catheterized Urine Culture - Final Enterococcus Faecalis 03/02/17 15:30 Leg - Left Gram Stain - Final 03/02/17 15:30 Leg - Left Wound Culture - Final Serratia Marcescens Enterococcus Faecalis 03/02/17 15:30 Leg - Right Gram Stain - Final 03/02/17 15:30 Leg - Right Wound Culture - Final Serratia Marcescens Enterococcus Faecalis 03/02/17 19:00 Blood Blood Culture - Final Bacillus Species 03/02/17 19:00 Blood Gram Stain - Final 02/10/17 12:20 Blood-Venous Blood Culture - Final NO GROWTH AFTER 5 DAYS 02/10/17 12:20 Blood-Venous Gram Stain - Final TEST NOT PERFORMED 02/10/17 11:19 Blood-Venous Blood Culture - Final NO GROWTH AFTER 5 DAYS 02/10/17 11:19 Blood-Venous Gram Stain - Final TEST NOT PERFORMED 02/10/17 14:20 Urine,Catheterized Urine Culture - Final No Growth (<1,000 CFU/ML) 02/06/17 19:00 Naris MRSA Culture - Final MRSA NOT DETECTED 02/05/17 15:51 Naris MRSA Culture (Admit) - Final MRSA NOT DETECTED 02/04/17 10:50 Urine Urine Culture - Final No Growth (<1,000 CFU/ML) Most Recent Lab Values WBC 6.1 K/uL (4.8-10.8) 04/20/17 07:57 RBC 4.30 Mil/uL (4.40-5.90) L 04/20/17 07:57 Hgb 11.0 g/dL (12.0-18.0) L 04/20/17 07:57 Hct 33.0 % (35.0-51.0) L 04/20/17 07:57 MCV 76.7 fL (80.0-94.0) L 04/20/17 07:57 MCH 25.6 pg (27.0-31.0) L 04/20/17 07:57 MCHC 33.4 g/dL (33.0-37.0) 04/20/17 07:57 RDW 15.8 % (11.5-14.5) H 04/20/17 07:57 Plt Count 276 K/uL (130-400) 04/20/17 07:57 MPV 8.1 fL (7.2-11.7) 04/20/17 07:57 Neut % (Auto) 59.7 % (50.0-75.0) 04/20/17 07:57 Lymph % (Auto) 32.0 % (20.0-40.0) 04/20/17 07:57 [place] % (Auto) 6.3 % (0.0-10.0) 04/20/17 07:57 Eos % (Auto) 1.7 % (0.0-4.0) 04/20/17 07:57 Baso % (Auto) 0.3 % (0.0-2.0) 04/20/17 07:57 Neut # 3.7 K/uL (1.8-7.0) 04/20/17 07:57 Lymph # 2.0 K/uL (1.0-4.3) 04/20/17 07:57 [place] # 0.4 K/uL (0.0-0.8) 04/20/17 07:57 Eos # 0.1 K/uL (0.0-0.7) 04/20/17 07:57 Baso # 0.0 K/uL (0.0-0.2) 04/20/17 07:57 Neutrophils % (Manual) 92 % (50-75) H 03/04/17 11:14 Band Neutrophils % 2 % (0-2) 03/04/17 11:14 Lymphocytes % (Manual) 3 % (20-40) L 03/04/17 11:14 Reactive Lymphs % 1 % (0-0) H 03/03/17 14:19 Monocytes % (Manual) 3 % (0-10) 03/04/17 11:14 Eosinophils % (Manual) 1 % (0-4) 02/17/17 06:48 Basophils % (Manual) 1 % (0-2) 02/19/17 07:18 Toxic Granulation Present 02/20/17 03:50 Platelet Estimate Normal (NORMAL) 03/04/17 11:14 Large Platelets Present 03/03/17 07:26 Giant Platelets Present 02/11/17 06:20 RBC Morphology Normal 02/12/17 07:36 Polychromasia Slight 02/15/17 08:10 Hypochromasia (manual) Slight 03/04/17 11:14 Poikilocytosis (manual Slight 03/04/17 11:14 Anisocytosis (manual) Slight 03/04/17 11:14 Microcytosis (manual) Moderate 02/20/17 03:50 Tear Drop Cells Slight 03/04/17 11:14 Ovalocytes Slight 03/04/17 11:14 [place] Cells Slight 02/11/17 06:20 ESR 88 mm/hr (0-15) H 03/03/17 14:19 PT 28.8 SECONDS (9.7-12.2) H 04/20/17 11:37 INR 2.4 04/20/17 11:37 APTT 38 SECONDS (21-34) H D 04/07/17 07:08 Protein C Antigen 75 % (70-140) 02/05/17 07:35 Protein C Activity 76 % (70-180) 02/05/17 07:35 Protein S Activity 73 % (70-150) 02/05/17 07:35 Protein S Antigen 108 % (70-140) 02/05/17 07:35 Antithrombin III Activ 93 % activity (80-120) 02/05/17 07:35 Factor V see note 02/05/17 07:35 Puncture Site Rra 03/03/17 15:12 pCO2 24 mm/Hg (35-45) L 03/03/17 15:12 pO2 86 mm/Hg (30-55) H 03/03/17 17:14 HCO3 22.3 mmol/L (21-28) 03/03/17 15:12 ABG pH 7.50 (7.35-7.45) H 03/03/17 15:12 ABG Total CO2 19.4 mmol/L (22-28) L 03/03/17 15:12 ABG O2 Saturation 99.5 % (95-98) H 03/03/17 15:12 ABG Base Excess -3.4 mmol/L (-2.0-3.0) L 03/03/17 15:12 ABG Hemoglobin 9.7 g/dL (11.7-17.4) L 03/03/17 15:12 ABG Carboxyhemoglobin 1.7 % (0.5-1.5) H 03/03/17 15:12 POC ABG HHb (Measured) 0.5 % (0.0-5.0) 03/03/17 15:12 ABG Methemoglobin 1.6 % (0.0-3.0) 03/03/17 15:12 Adryan Test Pos 03/03/17 15:12 VBG pH 7.48 (7.32-7.43) H 03/03/17 17:14 VBG pCO2 30 mmHg (40-60) L 03/03/17 17:14 VBG HCO3 24.7 mmol/L 03/03/17 17:14 VBG Total CO2 23.2 mmol/L (22-28) 03/03/17 17:14 VBG O2 Sat (Calc) 98.5 % (40-65) H 03/03/17 17:14 VBG Base Excess -0.3 mmol/L (0.0-2.0) L 03/03/17 17:14 VBG Potassium 3.5 mmol/L (3.6-5.2) L 03/03/17 17:14 A-a O2 Difference 18.0 mm/Hg 03/03/17 15:12 Respiratory Index 0.1 03/03/17 15:12 Hgb O2 Saturation 96.3 % (95.0-98.0) 03/03/17 15:12 Sodium 133.0 mmol/l (132-148) 03/03/17 17:14 Chloride 108.0 mmol/L (98-107) H 03/03/17 17:14 Glucose 117 mg/dl (75-110) H 03/03/17 17:14 Lactate 1.0 mmol/L (0.7-2.1) 03/03/17 17:14 Liter Flow 2.0 03/03/17 15:12 FiO2 27.0 % 03/03/17 15:12 Sodium 133 mmol/L (132-148) 04/20/17 07:57 Potassium 3.6 mmol/L (3.6-5.2) 04/20/17 07:57 Chloride 102 mmol/L (98-107) 04/20/17 07:57 Carbon Dioxide 25 mmol/L (22-30) 04/20/17 07:57 Anion Gap 10 (10-20) 04/20/17 07:57 BUN 13 mg/dL (9-20) 04/20/17 07:57 Creatinine 1.1 mg/dL (0.8-1.5) 04/20/17 07:57 Est GFR ( Amer) > 60 04/20/17 07:57 Est GFR (Non-Af Amer) > 60 04/20/17 07:57 POC Glucose (mg/dL) 133 mg/dL (65-110) H 03/08/17 11:09 Random Glucose 83 mg/dL (75-110) 04/20/17 07:57 Hemoglobin A1c 5.5 % (4.2-6.5) 02/05/17 07:35 Calcium 7.9 mg/dl (8.6-10.4) L 04/20/17 07:57 Phosphorus 4.1 mg/dL (2.5-4.5) 04/06/17 12:15 Magnesium 1.7 mg/dL (1.6-2.3) 04/06/17 12:15 Total Bilirubin 0.5 mg/dL (0.2-1.3) 04/20/17 07:57 AST 20 U/L (17-59) 04/20/17 07:57 ALT 34 U/L (21-72) 04/20/17 07:57 Alkaline Phosphatase 89 U/L (38-126) 04/20/17 07:57 Total Creatine Kinase 880 U/L (55-170) H 03/02/17 07:42 CK-MB (Mass) 5.19 ng/mL (0.0-3.38) H 02/22/17 22:46 Troponin I 0.1190 ng/mL (0.00-0.120) 02/04/17 17:11 Troponin I, Quant 0.0330 ng/mL (0.00-0.120) 02/22/17 22:46 NT-Pro-B Natriuret Pep 1720 pg/mL (0-900) H 02/04/17 17:11 Total Protein 5.5 g/dL (6.3-8.3) L 04/20/17 07:57 Albumin 2.9 g/dL (3.5-5.0) L 04/20/17 07:57 Globulin 2.6 gm/dL (2.2-3.9) 04/20/17 07:57 Albumin/Globulin Ratio 1.1 (1.0-2.1) 04/20/17 07:57 Triglycerides 67 mg/dL (0-149) 02/05/17 07:35 Cholesterol 109 mg/dL (0-199) 02/05/17 07:35 LDL Cholesterol Direct 69 mg/dL (0-129) 02/05/17 07:35 HDL Cholesterol 30 mg/dL (30-70) 02/05/17 07:35 Aldolase 9.1 U/L (<=8.1) H 02/22/17 09:37 25-OH Vitamin D Total 25.0 NG/ML (30.0-100.0) L 02/22/17 09:37 Procalcitonin 0.47 NG/ML (0.19-0.49) 03/03/17 17:19 Free T4 1.63 ng/dL (0.78-2.19) 02/22/17 09:37 TSH 3rd Generation 1.43 mIU/L (0.46-4.68) 02/22/17 09:37 Venous Blood Potassium 3.5 mmol/L (3.6-5.2) L 03/03/17 17:14 Urine Color Dimple (YELLOW) 03/03/17 13:37 Urine Clarity Clear (Clear) 03/03/17 13:37 Urine pH 6.0 (5.0-8.0) 03/03/17 13:37 Ur Specific [place] 1.014 (1.003-1.030) 03/03/17 13:37 Urine Protein 1+ mg/dL (NEGATIVE) H 03/03/17 13:37 Urine Glucose (UA) Normal mg/dL (Normal) 03/03/17 13:37 Urine Ketones Negative mg/dL (NEGATIVE) 03/03/17 13:37 Urine Blood 3+ (NEGATIVE) H 03/03/17 13:37 Urine Nitrate Negative (NEGATIVE) 03/03/17 13:37 Urine Bilirubin Negative (NEGATIVE) 03/03/17 13:37 Urine Urobilinogen 4.0 mg/dL (0.2-1.0) 03/03/17 13:37 Ur Leukocyte Esterase Trace [place]/uL (Negative) 03/03/17 13:37 Urine WBC (Auto) 7 /hpf (0-5) H 03/03/17 13:37 Urine RBC (Auto) 83 /hpf (0-3) H 03/03/17 13:37 Ur Squamous Epith Cells < 1 /hpf (0-5) 03/03/17 13:37 Urine Bacteria Rare (<OCC) 03/03/17 13:37 Urine Myoglobin TNP 02/21/17 09:25 Ur Random Creatinine 51.3 mg/dL 02/21/17 22:59 U Random Total Protein 22.0 mg/dL (0.0-12.0) H 02/21/17 23:57 Urine Microalbumin 16.4 mg/L (0.0-16.6) 02/21/17 22:59 Stool Leukocytes, Qual Negative (NEGATIVE) 03/03/17 12:00 Phenytoin 3.4 ug/mL (10-20) L 02/10/17 07:24 C. difficile Ag & Toxin Negative (NEGATIVE) 03/03/17 12:00 Hepatitis A IgM Ab Negative (NEGATIVE) 02/16/17 20:02 Hep Bs Antigen Negative (NEGATIVE) 02/16/17 20:02 Hep B Core IgM Ab Negative (NEGATIVE) 02/16/17 20:02 Hepatitis C Antibody Negative (NEGATIVE) 02/16/17 20:02 Influenza Typ A,B (EIA) Negative for flu a/b (NEGATIVE) 04/11/17 20:19 Blood Type O POSITIVE 03/04/17 07:07 Blood Type Confirm O POSITIVE 02/05/17 11:11 Antibody Screen Positive 03/04/17 07:07 Antibody Identification Non Specific Antibody 03/04/17 07:07 Discharge Exam - Head Exam Head Exam: NORMAL INSPECTION Discharge Plan - Discharge Medications Prescriptions: diltiaZEM CD [Cardizem CD] 360 mg PO DAILY #30 cap levETIRAcetam [Keppra] 500 mg PO BID #60 tab oxyCODONE [oxyCODONE Immediate Release Tab] 5 mg PO Q6 PRN #20 tab PRN Reason: Pain, Severe (8-10) - Follow Up Plan Condition: STABLE Disposition: HOME/ ROUTINE Instructions: Diltiazem (By mouth), Oxycodone, Rapid Release (By mouth), Levetiracetam (By mouth), Atrial Fibrillation (DC), Heart Healthy Diet (DC), Remote Superficial Femoral Artery Endarterectomy (DC), Chronic Hypertension (DC) , Low Sodium Diet (DC) Additional Instructions: Patient is to f/u with the [facility] to have his INR checked after he is discharge from [id number]. Patient will need to f/u with Dr Brown (junior net developer) regarding his A Fib Please take all medications on the list as instructed. Please alternate between Coumadin 3mg and Coumadin 4mg Daily. El paciente debe ir a la [facility] para que se le revise el INR despus de que se le d de flavia en un centro de rehabilitacin subagudo. El paciente tendr que f / u con el Dr. Brown (cardilogo) con respecto a blakely A Fib Por favor, tome todos los medicamentos en la lista segn las instrucciones. Por favor alternar entre Coumadin 3mg y Coumadin 4mg Daily. Referrals: [facility] at [facility] [Outside] Luis Brown MD [Staff Provider] - Desmond Kaur Jr., MD [Staff Provider] -
== END 2017-04-20 21:31 | DRG 549 ==
LOC: C.ER 09:32 → C.9E 12:46 → C.3T 13:14 → C.9I 02-05 15:38 → C.6T 02-06 20:46 → C.9I 03-04 23:57 → C.3T 03-09 01:06
PROVIDERS: ADMIT Hospitalist; ATTEND Hospitalist
PROC: 04CK0ZZ Extirpation of Matter from Right Femoral Artery, Open Approach (ICD-10-PCS; 2017-02-05)
PROC: 04CL0ZZ Extirpation of Matter from Left Femoral Artery, Open Approach (ICD-10-PCS; 2017-02-05)
PROC: B40GYZZ Plain Radiography of Left Lower Extremity Arteries using Other Contrast (ICD-10-PCS; 2017-02-05)
PROC: B40FYZZ Plain Radiography of Right Lower Extremity Arteries using Other Contrast (ICD-10-PCS; 2017-02-05)
PROC: 0Y6D0Z3 Detachment at Left Upper Leg, Low, Open Approach (ICD-10-PCS; 2017-03-04)
PROC: 0Y6C0Z3 Detachment at Right Upper Leg, Low, Open Approach (ICD-10-PCS; principal; 2017-03-04 20:00)
DX: E11.52 Type 2 diabetes mellitus with diabetic peripheral angiopathy with gangrene (principal); A41.9 Sepsis, unspecified organism; I47.2 Ventricular tachycardia; I70.263 Atherosclerosis of native arteries of extremities with gangrene, bilateral legs; M62.82 Rhabdomyolysis; E11.22 Type 2 diabetes mellitus with diabetic chronic kidney disease; G40.909 Epilepsy, unspecified, not intractable, without status epilepticus; I48.91 Unspecified atrial fibrillation; G93.89 Other specified disorders of brain; F03.90 Unspecified dementia, unspecified severity, without behavioral disturbance, psychotic disturbance, mood disturbance, and anxiety; I12.9 Hypertensive chronic kidney disease with stage 1 through stage 4 chronic kidney disease, or unspecified chronic kidney disease; L97.829 Non-pressure chronic ulcer of other part of left lower leg with unspecified severity; N18.2 Chronic kidney disease, stage 2 (mild); L97.819 Non-pressure chronic ulcer of other part of right lower leg with unspecified severity; L97.929 Non-pressure chronic ulcer of unspecified part of left lower leg with unspecified severity; I74.3 Embolism and thrombosis of arteries of the lower extremities; I82.812 Embolism and thrombosis of superficial veins of left lower extremity; I69.354 Hemiplegia and hemiparesis following cerebral infarction affecting left non-dominant side; D18.03 Hemangioma of intra-abdominal structures; D63.8 Anemia in other chronic diseases classified elsewhere; E78.00 Pure hypercholesterolemia, unspecified; E78.5 Hyperlipidemia, unspecified; G47.00 Insomnia, unspecified; H54.7 Unspecified visual loss; N20.9 Urinary calculus, unspecified; N40.1 Benign prostatic hyperplasia with lower urinary tract symptoms; R33.8 Other retention of urine; R79.1 Abnormal coagulation profile; Z78.1 Physical restraint status; Z79.01 Long term (current) use of anticoagulants; Z79.02 Long term (current) use of antithrombotics/antiplatelets; Z79.82 Long term (current) use of aspirin; Z79.899 Other long term (current) drug therapy; E11.622 Type 2 diabetes mellitus with other skin ulcer; L98.499 Non-pressure chronic ulcer of skin of other sites with unspecified severity

== ENCOUNTER 2017-04-24 00:36 | Inpatient (IN) | payer MEDICAID, OTHER ==
--- NOTE | 2017-04-24 00:52 | C.PDOC ---
History Of Present Illness 71 y/o male brought to ED by BLS for evaluation on slurred speech and facial drooping since earlier today. As per family who is at bedside patient was called at 2pm and was fine. Patient was contacted around 9:30pm and could not be understand, upon arrival of family to patient's home facial drooping was noted. Unknown start time of episode. No other complaints at this time. Time Seen by Provider: 04/24/17 00:51 Chief Complaint (Nursing): Altered Mental Status History Per: Patient, Family History/Exam Limitations: None Onset/Duration Of Symptoms: Hrs Current Symptoms Are (Timing): Still Present Usual Baseline: Alert Oriented Exacerbating Factor(s): Unknown Use Of Anticoag/Antiplatelets: Unknown Character Of Deficits: Face: Weakness (right) Speech Is: Slurred Severity: Moderate Pain Scale Rating Of: 4 Recent travel outside of the [place]: No Additional History Per: Family Associated Symptoms: denies: Fever Past Medical History Reviewed: Historical Data, Nursing Documentation, Vital Signs Vital Signs: Last Vital Signs Temp 97.6 F 04/24/17 00:40 Pulse 58 L 04/24/17 02:41 Resp 20 04/24/17 02:41 BP 125/55 L 04/24/17 02:41 Pulse Ox 98 04/24/17 02:41 - Medical History PMH: Atrial Fibrillation, HTN, Hyperlipidemia, Seizures Surgical History: No Surg Hx - [facility] Procedures DETACHMENT AT LEFT UPPER LEG, LOW, OPEN APPROACH (02/04/17) DETACHMENT AT RIGHT UPPER LEG, LOW, OPEN APPROACH (02/04/17) EXTIRPATION OF MATTER FROM L FEM ART, OPEN APPROACH (02/04/17) EXTIRPATION OF MATTER FROM R FEM ART, OPEN APPROACH (02/04/17) PLAIN RADIOGRAPHY OF L LOW EXTREM ART USING OTH CONTRAST (02/04/17) PLAIN RADIOGRAPHY OF R LOW EXTREM ART USING OTH CONTRAST (02/04/17) Family History: States: No Known Family Hx - Social History Hx Alcohol Use: No Hx Substance Use: No - Immunization History Hx Tetanus Toxoid Vaccination: No Hx Influenza Vaccination: No Hx Pneumococcal Vaccination: No Review Of Systems Constitutional: Negative for: Fever, Chills Eyes: Negative for: Vision Change ENT: Negative for: Throat Pain Cardiovascular: Negative for: Chest Pain Respiratory: Negative for: Shortness of Breath Gastrointestinal: Negative for: Nausea, Vomiting Genitourinary: Negative for: Dysuria Musculoskeletal: Negative for: Back Pain Skin: Negative for: Rash Neurological: Positive for: Change in Speech. Negative for: Weakness, Numbness Psych: Negative for: Anxiety Physical Exam - Physical Exam Appears: Non-toxic Skin: Warm, Dry Head: Normacephalic Eye(s): bilateral: Normal Inspection Oral Mucosa: Moist Lips: Normal Appearing Neck: Trachea Midline, Supple Chest: Symmetrical Cardiovascular: Rhythm Regular Respiratory: No Rales, Rhonchi (scattered), No Wheezing Gastrointestinal/Abdominal: Soft, No Tenderness, No Guarding, No Rebound Back: Normal Inspection Extremity: Other (Bilateral AKA ) Extremity: Bilateral: Other (b/l aka) Neurological/Psych: Oriented x3, Dysarthria, Other ((+)Right Facial droop ) Gait: Unable To Assess ED Course And Treatment - Laboratory Results Result Diagrams: 04/24/17 01:23 04/24/17 01:23 ECG: Interpreted By Me, Viewed By Me ECG Rhythm: Sinus Rhythm (56), 1st Degree HB, R BBB, Nonspecific Changes (lahb) O2 Sat by Pulse Oximetry: 99 (RA) Pulse Ox Interpretation: Normal - Radiology CXR: Interpreted by Me, Viewed By Me CXR Interpretation: No: Infiltrates, Fracture, Pnemothorax Critical Care Time - Critical Care Note Total Time (in mins): 30 Documented critical care: time excludes all time spent performing seperately billable procedures. NIHSS Stroke Scale - Date/Time Evaluation Performed Date Performed: 04/24/17 Time Performed: 00:38 When Was NIHSS Performed: Baseline - How Severe is the Stoke Level of Consciousness: 0=Alert LOC to Questions: 0=Both comments correct LOC to commands: 0=Obeys both correctly Best Gaze: 0=Normal Visual: 0=No visual loss Facial: 1=Minor asymmetry Motor Arm - Left: 0=No drift Motor Arm - Right: 0=No drift Motor Leg - Left: NA - Amputation, joint fusion Motor Leg - Right: NA - Amputation, joint fusion Limb Ataxia: 0=Absent Sensory: 0=Normal Best Language: 1=Mild to moderate aphasia Dysarthia: 1=Mild to moderate slurring Extinction & Inattention (Neglect): 0=Normal, no object Score: 3 Severity Of Stroke: 1-4= Minor Stroke rTPA Inclusion/Exclusion - Refusal of Treatment Patient Refused Treatment: No - Inclusion Criteria for Altepase Patient is 18 years or Older: Yes Clinical DX Ischemic Stroke Cause Neurological Deficit: Yes Time of Onset Established Less Than 270 Mins Before TX Begin: No Risk/Benefit Discussed With Patient/Family Member Present: Yes - Exclusion Criteria for Altepase Uncontrolled Hypertension at Time of TX (SBP>185 or DBP>110): No Active Internal Bleeding: No Known Bleeding Diathesis: No Evidence of an Intracranial Hemorrhage: No Evidence Major Acute Infarct w/ Signs Greater Than 1/3 MCA: No Suspicion of Subarachnoid Bleed on PreTX Eval(CT: neg bleed): No - Warning to TPA With Conditions Additional Condition (For 3-4.5 Hour Window): Prior Stroke and Diabetes ( unknown starting time, - anytime between 2 pm and 9 PM) Disposition Discussed With DrDaniel: Janet Vines Comment: accepted the pt on his service and took over the care at 2:30 AM Doctor Will See Patient In The: Hospital Counseled Patient/Family Regarding: Studies Performed, Diagnosis - Disposition Disposition: HOSPITALIZED Disposition Time: 00:52 Condition: FAIR Forms: Web International English Connect (Namibian) - POA Present On Arrival: None - Clinical Impression Clinical Impression: TIA (transient ischemic attack) - Scribe Statement The provider has reviewed the documentation as recorded by the Scribray Hughes All medical record entries made by the Saulibray were at my direction and personally dictated by me. I have reviewed the chart and agree that the record accurately reflects my personal performance of the history, physical exam, medical decision making, and the department course for this patient. I have also personally directed, reviewed, and agree with the discharge instructions and disposition.
--- NOTE | 2017-04-24 01:10 | CT ---
EXAM: CT Head Without Intravenous Contrast CLINICAL HISTORY: 71 years old, male; Pain; Other: Confused; Patient HX: 03-03-17; Additional info: Code stroke TECHNIQUE: Axial computed tomography images of the head/brain without intravenous contrast. All CT scans at this facility use one or more dose reduction techniques, viz.: automated exposure control; ma/kV adjustment per patient size (including targeted exams where dose is matched to indication; i.e. head); or iterative reconstruction technique. Coronal and sagittal reformatted images were created and reviewed. COMPARISON: No relevant prior imaging available for direct comparison. Reference is made to report from a CT examination of the head performed 03/03/2017. FINDINGS: Brain: No acute intracranial hemorrhage. Again identified are 2 rounded areas of decreased attenuation within the right cerebellum, unchanged As described on prior examination. Encephalomalacia and gliosis is identified within the right posterior parietal lobe, right frontal lobe, and left posterior parieto-occipital lobe (also unchanged). Otherwise age-advanced periventricular white matter disease. No edema. Ventricles: Age-appropriate ventriculomegaly. Bones: No acute displaced fracture. Sinuses: Unremarkable as visualized. No acute sinusitis. Mastoid air cells: Opacification of the left mastoid air cells are identified not described on earlier examination. IMPRESSION: No acute intracranial hemorrhage, or suspicious mass effect. Stable atrophy and encephalomalacia as detailed above. Opacification of the left mastoid air cells.
[2017-04-24 01:22] LABS: INR 1.6
[2017-04-24 01:29] LABS: BASO % 0.3 % (0.0-2.0); EOS # 0.1 K/uL (0.0-0.7); EOS % 1.7 % (0.0-4.0); HEMATOCRIT 34.9 % (35.0-51.0); LYMPH # 2.3 K/uL (1.0-4.3); LYMPH % 32.7 % (20.0-40.0); MEAN CELL VOLUME 76.8 fL (80.0-94.0); MEAN CORPUSCULAR HEMOGLOBIN 25.3 pg (27.0-31.0); MEAN CORPUSCULAR HGB CONC 32.9 g/dL (33.0-37.0); MEAN PLATELET VOLUME 7.8 fL (7.2-11.7); MONO # 0.4 K/uL (0.0-0.8); MONO % 5.7 % (0.0-10.0); RED CELL DISTRIBUTION WIDTH 16.3 % (11.5-14.5); WHITE BLOOD COUNT 6.9 K/uL (4.8-10.8)
[2017-04-24 01:34] LABS: ALKALINE PHOSPHATASE 87 U/L (38-126); ALT/SGPT 34 U/L (21-72); AST/SGOT 17 U/L (17-59); BILIRUBIN,TOTAL 0.6 mg/dL (0.2-1.3); BLOOD UREA NITROGEN 21 mg/dL (9-20); CALCIUM 7.9 mg/dl (8.6-10.4); CARBON DIOXIDE 23 mmol/L (22-30); CHLORIDE 103 mmol/L (98-107); CHOLESTEROL 99 mg/dL (0-199); GFR AFRICAN-AMERICAN > 60; GLUCOSE,RANDOM 88 mg/dL (75-110); POTASSIUM 3.5 mmol/L (3.6-5.2); SODIUM 136 mmol/L (132-148); TOTAL PROTEIN 5.9 g/dL (6.3-8.3)
[2017-04-24 01:49] LABS: ALB/GLOB RATIO 1.2 (1.0-2.1)
--- NOTE | 2017-04-24 07:21 | CP.PCM.CON ---
History of Present Illness - History of Present Illness History of Present Illness: CONSULT DICTATED REC TIAs Vs STROKE OR SEIZURES ONE ANTIPLATELET AND KEEP COUMADIN WITH INR 2-2.5 PT CHECK EEG Past Patient History - Infectious Disease Hx of Infectious Diseases: None - Past Medical History & Family History Past Medical History?: Yes - Past Social History Smoking Status: Never Smoked - CARDIAC Hx Cardiac Disorders: Yes Hx Atrial Fibrillation: Yes Hx Hypertension: Yes - PULMONARY Hx Respiratory Disorders: No - NEUROLOGICAL Hx Neurological Disorder: Yes HX Cerebrovascular Accident: Yes (x10 as per family) Hx Seizures: Yes - HEENT Hx HEENT Problems: Yes 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) - RENAL Hx Chronic Kidney Disease: No - ENDOCRINE/METABOLIC Hx Endocrine Disorders: No - HEMATOLOGICAL/ONCOLOGICAL Hx Blood Disorders: No - INTEGUMENTARY Hx Dermatological Problems: No - MUSCULOSKELETAL/RHEUMATOLOGICAL Hx Musculoskeletal Disorders: No Hx Falls: No - GASTROINTESTINAL Hx Gastrointestinal Disorders: No - GENITOURINARY/GYNECOLOGICAL Hx Genitourinary Disorders: No - PSYCHIATRIC Hx Psychophysiologic Disorder: No Hx Substance Use: No - SURGICAL HISTORY Hx Surgeries: Yes Hx Cardiac Catheterization: Yes Hx Musculoskeletal Surgery: Yes (Bilateral AKA) - ANESTHESIA Hx Anesthesia: Yes Hx Anesthesia Reactions: No Hx Malignant Hyperthermia: No Meds Allergies/Adverse Reactions: Allergies Allergy/AdvReac Type Severity Reaction Status Date / Time banana Allergy SWELLING Verified 04/24/17 00:44 pineapple Allergy SWELLING Verified 04/24/17 00:44 Results - Vital Signs Recent Vital Signs: Last Vital Signs Temp 97.4 F L 04/24/17 03:43 Pulse 62 04/24/17 03:43 Resp 20 04/24/17 03:43 BP 122/62 04/24/17 03:43 Pulse Ox 100 04/24/17 03:43 - Labs Result Diagrams: 04/24/17 01:23 04/24/17 01:23 Labs: Laboratory Results - last 24 hr 04/24/17 04/24/17 04/24/17 01:23 01:23 01:23 WBC 6.9 RBC 4.54 Hgb 11.5 L Hct 34.9 L MCV 76.8 L MCH 25.3 L MCHC 32.9 L RDW 16.3 H Plt Count 282 MPV 7.8 Neut % (Auto) 59.6 Lymph % (Auto) 32.7 [place] % (Auto) 5.7 Eos % (Auto) 1.7 Baso % (Auto) 0.3 Neut # 4.1 Lymph # 2.3 [place] # 0.4 Eos # 0.1 Baso # 0.0 PT 18.7 H INR 1.6 APTT 28 Sodium 136 Potassium 3.5 L Chloride 103 Carbon Dioxide 23 Anion Gap 14 BUN 21 H Creatinine 1.1 Est GFR ( Amer) > 60 Est GFR (Non-Af Amer) > 60 Random Glucose 88 Hemoglobin A1c Calcium 7.9 L Total Bilirubin 0.6 AST 17 ALT 34 Alkaline Phosphatase 87 Troponin I 0.0330 Total Protein 5.9 L Albumin 3.2 L Globulin 2.7 Albumin/Globulin Ratio 1.2 Triglycerides 49 D Cholesterol 99 LDL Cholesterol Direct 52 HDL Cholesterol 38 Blood Type Antibody Screen 04/24/17 04/24/17 01:23 02:18 WBC RBC Hgb Hct MCV MCH MCHC RDW Plt Count MPV Neut % (Auto) Lymph % (Auto) [place] % (Auto) Eos % (Auto) Baso % (Auto) Neut # Lymph # [place] # Eos # Baso # PT INR APTT Sodium Potassium Chloride Carbon Dioxide Anion Gap BUN Creatinine Est GFR ( Amer) Est GFR (Non-Af Amer) Random Glucose Hemoglobin A1c 4.9 Calcium Total Bilirubin AST ALT Alkaline Phosphatase Troponin I Total Protein Albumin Globulin Albumin/Globulin Ratio Triglycerides Cholesterol LDL Cholesterol Direct HDL Cholesterol Blood Type O POSITIVE Antibody Screen Negative
[2017-04-24 08:05] LABS: FREE T4 1.53 ng/dL (0.78-2.19)
[2017-04-24 08:19] LABS: THYROID STIMULATING HORMONE 1.87 mIU/L (0.46-4.68)
--- NOTE | 2017-04-24 08:39 | RAD ---
HISTORY: tia COMPARISON: Portable chest 03/22/2017. FINDINGS: LUNGS: No active pulmonary disease. Apparent resolution of prior right basilar airspace disease. PLEURA: No significant pleural effusion identified, no pneumothorax apparent. CARDIOVASCULAR: Normal. OSSEOUS STRUCTURES: No significant abnormalities. VISUALIZED UPPER ABDOMEN: Normal. OTHER FINDINGS: None. IMPRESSION: No interval acute cardiopulmonary disease appreciated. Prior right basilar limited airspace disease appears to have resolved.
[2017-04-24 08:55] LABS: FOLATE 12.6 ng/mL
[2017-04-24] MEDS ORDERED: oxyCODONE 5 mg Immediate Release Tab PO PRN (09:13)
[2017-04-24 09:53] LABS: HOMOCYSTEINE 12.9 umol/L (6.6-14.8)
[2017-04-24 10:35] LABS: ALKALINE PHOSPHATASE 85 U/L (38-126); ALT/SGPT 29 U/L (21-72); AST/SGOT 19 U/L (17-59); BILIRUBIN,TOTAL 0.4 mg/dL (0.2-1.3); BLOOD UREA NITROGEN 19 mg/dL (9-20); CARBON DIOXIDE 24 mmol/L (22-30); CHLORIDE 105 mmol/L (98-107); GFR AFRICAN-AMERICAN > 60; GLUCOSE,RANDOM 76 mg/dL (75-110); MAGNESIUM 1.9 mg/dL (1.6-2.3); PHOSPHOROUS 4.4 mg/dL (2.5-4.5); POTASSIUM 3.2 mmol/L (3.6-5.2); SODIUM 138 mmol/L (132-148); TOTAL PROTEIN 6.6 g/dL (6.3-8.3)
[2017-04-24 10:49] LABS: ALB/GLOB RATIO 0.8 (1.0-2.1)
[2017-04-24] MEDS: Vitamins A & D Oint UD Foilpak TOP SCH ×2 (10:50→18:50)
[2017-04-24] MEDS: diltiaZEM 180 mg/24 Hours CD Cap PO SCH (10:52)
[2017-04-24 12:42] LABS: BASO % 0.2 % (0.0-2.0); EOS # 0.1 K/uL (0.0-0.7); EOS % 1.8 % (0.0-4.0); HEMATOCRIT 33.3 % (35.0-51.0); LYMPH # 1.7 K/uL (1.0-4.3); LYMPH % 28.9 % (20.0-40.0); MEAN CELL VOLUME 75.5 fL (80.0-94.0); MEAN CORPUSCULAR HEMOGLOBIN 25.2 pg (27.0-31.0); MEAN CORPUSCULAR HGB CONC 33.3 g/dL (33.0-37.0); MEAN PLATELET VOLUME 8.2 fL (7.2-11.7); MONO # 0.3 K/uL (0.0-0.8); MONO % 5.5 % (0.0-10.0); RED CELL DISTRIBUTION WIDTH 16.3 % (11.5-14.5)
--- NOTE | 2017-04-24 14:19 | CP.PCM.PN ---
<Hilario Cruz - Last Filed: 04/24/17 14:28> Subjective - Date & Time of Evaluation Date of Evaluation: 04/24/17 Time of Evaluation: 14:15 - Subjective Subjective: Progress note. Attending: Dr. Vines. Pt seen and examined at bedside. No acute distress. Came in overnight. No current complaints. No fevers, chills, vomiting, diarrhea. Objective - Vital Signs/Intake and Output Vital Signs (last 24 hours): Temp Pulse Resp BP Pulse Ox 98.1 F 51 L 20 109/62 100 04/24/17 08:18 04/24/17 08:18 04/24/17 08:18 04/24/17 08:18 04/24/17 08:18 Intake and Output: 04/24/17 04/24/17 06:59 18:59 Intake Total 0 Output Total 400 Balance -400 - Medications Medications: Current Medications Aspirin (Ecotrin) 81 mg PO DAILY [facility] Last Admin: 04/24/17 10:52 Dose: 81 mg Chlorthalidone (Hygroton) 25 mg PO DAILY [facility] Last Admin: 04/24/17 11:02 Dose: 25 mg Clopidogrel Bisulfate (Plavix) 75 mg PO DAILY [facility] Last Admin: 04/24/17 10:49 Dose: 75 mg Diltiazem HCl (Cardizem Cd) 360 mg PO DAILY [facility] Last Admin: 04/24/17 10:52 Dose: 360 mg Finasteride (Proscar) 5 mg PO DAILY [facility] Last Admin: 04/24/17 11:02 Dose: 5 mg Gabapentin (Neurontin) 300 mg PO TID [facility] Last Admin: 04/24/17 10:51 Dose: 300 mg Levetiracetam (Keppra) 500 mg PO BID [facility] Last Admin: 04/24/17 10:50 Dose: 500 mg Losartan Potassium (Cozaar) 25 mg PO DAILY [facility] Last Admin: 04/24/17 10:49 Dose: 25 mg Oxycodone HCl (Oxycodone Immediate Release Tab) 5 mg PO Q6 PRN PRN Reason: Pain, severe (8-10) Rosuvastatin Calcium (Crestor) 10 mg PO HS [facility] Tamsulosin HCl (Flomax) 0.4 mg PO DAILY [facility] Last Admin: 04/24/17 10:52 Dose: 0.4 mg Vitamin A (Vitamin A & D Oint Ud Foilpak) 1 ea TOP BID [facility] Last Admin: 04/24/17 10:50 Dose: 1 ea Zolpidem Tartrate (Ambien) 5 mg PO HS [facility] - Labs Labs: 04/24/17 07:23 04/24/17 07:23 PT 18.7 SECONDS (9.7-12.2) H 04/24/17 01:23 INR 1.6 04/24/17 01:23 APTT 28 SECONDS (21-34) 04/24/17 01:23 - Constitutional Appears: Non-toxic, No Acute Distress - Head Exam Head Exam: ATRAUMATIC, NORMAL INSPECTION, NORMOCEPHALIC - Eye Exam Eye Exam: EOMI - ENT Exam ENT Exam: Mucous Membranes Moist - Neck Exam Neck Exam: Full ROM, Normal Inspection - Respiratory Exam Respiratory Exam: NORMAL BREATHING PATTERN. absent: Respiratory Distress - Cardiovascular Exam Cardiovascular Exam: +S1, +S2 - GI/Abdominal Exam GI & Abdominal Exam: Soft, Normal Bowel Sounds. absent: Tenderness - Extremities Exam Extremities Exam: Full ROM, Normal Inspection - Back Exam Back Exam: NORMAL INSPECTION - Neurological Exam Neurological Exam: Alert, Awake, Oriented x3 - Psychiatric Exam Psychiatric exam: Normal Affect, Normal Mood - Skin Skin Exam: Dry, Intact, Normal Color, Warm Assessment and Plan - Assessment and Plan (Free Text) Assessment: This is a 71 yo male, double amputee, with 1. TIA vs. stroke -IV hydration -am labs -head ct pending -carotid dopplers pending -EEG pending -neurology consult. Dr. Fitch. recs appreciated. -cardio consult. Dr. Feng. recs appreciated. -asa 81 mg po daily -plavix 75 mg daily -NPO for now -swallow eval pending -PT/OT ordered -oxycodone for pain prn severe pain 2. hx of HTN -continue losartan daily -continue chlorthalidone daily -continue cardizem daily 3. Insomnia -continue ambien daily PO HS 2. GI/DVT -protonix daily -SCDs discussed with Dr. Vines. <Janet Vines - Last Filed: 05/04/17 11:31> Objective - Vital Signs/Intake and Output Vital Signs (last 24 hours): Temp Pulse Resp BP Pulse Ox 98.4 F 54 L 18 126/67 100 05/04/17 07:50 05/04/17 07:50 05/04/17 07:50 05/04/17 07:50 05/04/17 07:50 Intake and Output: 05/04/17 05/04/17 06:59 18:59 Intake Total 320 Output Total 1000 Balance -680 - Medications Medications: Current Medications Amiodarone HCl (Cordarone) 200 mg PO DAILY [facility] Last Admin: 05/04/17 09:27 Dose: 200 mg Aspirin (Ecotrin) 81 mg PO DAILY [facility] Last Admin: 05/03/17 09:12 Dose: 81 mg Chlorthalidone (Hygroton) 25 mg PO DAILY [facility] Last Admin: 05/04/17 09:27 Dose: 25 mg Clopidogrel Bisulfate (Plavix) 75 mg PO DAILY [facility] Last Admin: 05/03/17 09:11 Dose: 75 mg Diltiazem HCl (Cardizem Cd) 120 mg PO DAILY [facility] Last Admin: 05/04/17 09:27 Dose: 120 mg Enoxaparin Sodium (Lovenox) 70 mg SC Q12H [facility] Last Admin: 05/03/17 21:17 Dose: 70 mg Finasteride (Proscar) 5 mg PO DAILY [facility] Last Admin: 05/04/17 09:27 Dose: 5 mg Gabapentin (Neurontin) 300 mg PO TID [facility] Last Admin: 05/04/17 09:27 Dose: 300 mg Levetiracetam (Keppra) 500 mg PO BID [facility] Last Admin: 05/04/17 09:27 Dose: 500 mg Losartan Potassium (Cozaar) 25 mg PO DAILY [facility] Last Admin: 05/04/17 09:27 Dose: 25 mg Pantoprazole Sodium (Protonix Inj) 40 mg IVP Q12H [facility] Last Admin: 05/04/17 08:42 Dose: 40 mg Potassium Chloride (Klor-Con 10) 10 meq PO DAILY [facility] Last Admin: 05/04/17 09:27 Dose: 10 meq Potassium Chloride (Klor-Con 10) 10 meq PO BRK [facility] Last Admin: 05/04/17 08:42 Dose: 10 meq Rosuvastatin Calcium (Crestor) 10 mg PO HS [facility] Last Admin: 05/02/17 21:12 Dose: 10 mg Tamsulosin HCl (Flomax) 0.4 mg PO DAILY [facility] Last Admin: 05/04/17 09:27 Dose: 0.4 mg Vitamin A (Vitamin A & D Oint Ud Foilpak) 1 ea TOP BID [facility] Last Admin: 05/04/17 09:27 Dose: 1 ea Zolpidem Tartrate (Ambien) 5 mg PO HS [facility] Last Admin: 05/03/17 21:17 Dose: 5 mg - Labs Labs: 05/04/17 00:57 05/04/17 07:41 PT 16.7 SECONDS (9.7-12.2) H 05/04/17 07:02 INR 1.5 05/04/17 07:02 APTT 34 SECONDS (21-34) 05/04/17 07:02 Attending/Attestation - Attestation I have personally seen and examined this patient.: Yes I have fully participated in the care of the patient.: Yes I have reviewed all pertinent clinical information, including history, physical exam and plan: Yes Notes (Text): Patient examined. Patient in no acute distress. Continue aspirin and clopidogrel. Continue antihypertensive medications. Continue supportive care.
[2017-04-24] MEDS: Dextrose 5%/0.45% NS 1,000 ML IV SCH (15:01)
--- NOTE | 2017-04-24 15:18 | CON ---
DATE: REASON FOR CONSULTATION: New stroke. CHIEF COMPLAINT: The patient was brought in to [facility] by the family members with a history of new facial weakness. From neurological point of view, I was called in to evaluate him for further management. HISTORY OF PRESENT ILLNESS: Mr. Eduardo Collins is a 71-year-old right-handed male, being admitted many times in the hospital with a history of multiple strokes in the past, who was recently discharged from the hospital as per the nurse and brought in to [facility] again with a history of new facial weakness. Family contacted, they came around 2:00 yesterday afternoon. At that time, he was good. Around 9:30, they called him, his speech was slurred, and speech is not understandable. Family noticed his right-sided facial weakness, which is new. No other documented signs including seizures, involuntary movements, fall, head injuries, or bowel or bladder incontinence. PAST MEDICAL HISTORY: Atrial fibrillation, hypertension, dyslipidemia, seizures. PAST SURGICAL HISTORY: [id number] amputation. PERSONAL HISTORY: Denies smoking or alcohol use. REVIEW OF SYSTEMS: Twelve-point systems had been reviewed. From neuro, new facial weakness and slurred speech. MEDICATIONS: At home, Flomax, Cozaar, Neurontin, Proscar, Plavix, Hygroton, Lipitor, Ecotrin, Cordarone, oxycodone, Keppra, Coumadin, vitamin D. PHYSICAL EXAMINATION: VITAL SIGNS: Blood pressure 122/62, mean arterial pressure of 82, respiratory rate is 16, and temperature afebrile. NECK: Supple. No carotid bruit. HEART: Sounds are regular. Mild systolic murmur heard. EXTREMITIES: Both [id number] amputation. NEUROLOGICAL: Mental status examination: He is arousable calling his name. He states his name. Speech is dysarthric and slurred. Cranial nerve examination: Responds to visual threat. Pupils are reactive to light. Extraocular movements are decreased in all directions. No facial sensory deficit. Mild facial asymmetry manifesting as a flattening of the right nasolabial fold. Hearing is normal. Tongue is midline. Good gag. Motor examination: Outstretched hand with eyes closed, no drift noted. Power is symmetric on either side. Deep tendon reflexes, biceps, brachialis, and triceps are trace on both upper extremities. Both lower extremities with [id number]-[id number] amputation. Sensory examination: Responds to pain symmetrically on both sides. Coordination: Geelib-[id number]-ghumdq test is intact. LABORATORY DATA: CT of the head reviewed by me showed significant atrophy with periventricular ischemic changes, and there is old right MCA infarct and a possible left parietal lobe lucency consistent with old infarct as well. Blood workup: WBC 6.9, hemoglobin 11.5, hematocrit 34.9, and platelets 282. PT 18.7, INR 1.6, PTT 28. Sodium 136, potassium 3.5, chloride 103, bicarbonate 23, BUN 21, and creatinine 1.1. Triglycerides 49, cholesterol 99, LDL 52, and HDL 38. CONCLUSION: Mr. Eduardo Collins has been presenting with mild facial asymmetry on his right side, which probably is new versus old. However, the patient's family members are concerned about his new symptoms as this could be probably a new event consistent with left subcortical dysfunction. The patient does have atrial fibrillation, been on anticoagulation with Coumadin, including two anti-platelets. I doubt that the patient may not need all three drugs. However, the patient's Coumadin is not at therapeutic level. RECOMMENDATION: The patient should be placed on one anti-platelet - either aspirin or Plavix, and keep the Coumadin at therapeutic range with INR of 2 to 2.5. The patient should be kept on DVT prophylaxis and physical therapy. No history of seizures. The patient should have electroencephalogram to rule out any seizure activities because he has been on Keppra. The patient will be followed closely with you. Clark Fitch MD
[2017-04-24] MEDS ORDERED: Potassium Chloride 20 mEq ER Tab PO STA (15:38)
--- NOTE | 2017-04-24 18:05 | MRI ---
PROCEDURE: MRI BRAIN WITHOUT CONTRAST HISTORY: stroke COMPARISON: Comparison is made to the previous CT dated 04/24/2017 TECHNIQUE: Multiplanar, multisequence MR images of the brain were obtained without intravenous contrast enhancement. FINDINGS: HEMORRHAGE: None DWI: There is focal diffusion restriction at the posterior aspect of the left coronal radiata. BRAIN PARENCHYMA: Encephalomalacia and gliosis is noted at the right posterior parietal occipital lobe suggestive of old infarct. There is also focal encephalomalacia at the right frontal perisylvian suggestive of old infarct. Moderate atrophy and moderate chronic microvascular white matter ischemic changes are noted. Focal encephalomalacia is also noted at the posterior left parietal lobe also suggestive of old infarct. VENTRICLES: Unremarkable. No hydrocephalus. CRANIUM: Unremarkable. ORBITS: Grossly unremarkable. PARANASAL SINUSES/MASTOIDS: Clear VASCULAR SYSTEM: Skull base flow voids intact. OTHER FINDINGS: None. IMPRESSION: Focal acute infarct at the posterior aspect of the left coronal radiata. Foci of encephalomalacia at the right brain suggestive of old infarct. Moderate atrophy and white matter chronic microvascular ischemic changes. Preliminary report was submitted by [facility].
--- NOTE | 2017-04-24 18:17 | VASCLAB ---
PROCEDURE: HISTORY: assess stenosis COMPARISON: None available. TECHNIQUE: Grayscale and duplex Doppler evaluation of the cervical carotid and vertebral arteries were performed. The common carotid, carotid bifurcations and cervical Internal Carotid Artery (ICA) and proximal External Carotid Artery (ECA) were evaluated. The vertebral arteries were evaluated for gross patency and flow direction. Report prepared by Black Fermin, BS, RVT FINDINGS: RIGHT CAROTID ARTERIES: 1. Common Carotid Artery: No significant focal plaque formation of the right common carotid artery. Maximum Peak Systolic velocity: 111 cm/sec: End-diastolic velocity 15 cm/sec. 2. Carotid Bifurcation: plaque formation. Maximum Peak Systolic velocity: 115 cm/sec: End-diastolic velocity 7 cm/sec. 3. Internal Carotid Artery: Plaque description: 3.1. Proximal Segment: Peak systolic velocity 90 cm/sec: End-diastolic velocity 12 cm/sec - % stenosis 0-15% 3.2. Middle Segment: Peak systolic velocity 88 cm/sec: End-diastolic velocity 14 cm/sec - % stenosis 0-15% 3.3. Distal Segment: Peak systolic velocity 62 cm/sec: End-diastolic velocity 10 cm/sec - % stenosis 0-15% 4. External Carotid Artery: No significant focal plaque formation. Peak systolic velocity 155 cm/sec 5. ICA/CCA Ratio: 1.0 LEFT CAROTID ARTERIES: 1. Common Carotid Artery: No significant focal plaque formation of the left common carotid artery. Maximum Peak Systolic velocity: 133 cm/sec: End-diastolic velocity 0 cm/sec. 2. Carotid Bifurcation: plaque formation. Maximum Peak Systolic velocity: 166 cm/sec: End-diastolic velocity 0 cm/sec. 3. Internal Carotid Artery: Plaque description: 3.1. Proximal Segment: Peak systolic velocity 93 cm/sec: End-diastolic velocity 12 cm/sec - % stenosis 0-15% 3.2. Middle Segment: Peak systolic velocity 80 cm/sec: End-diastolic velocity 10 cm/sec - % stenosis 0-15% 3.3. Distal Segment: Peak systolic velocity 84 cm/sec: End-diastolic velocity 12 cm/sec - % stenosis 0-15% 4. External Carotid Artery: No significant focal plaque formation. Peak systolic velocity 166 cm/sec 5. ICA/CCA Ratio: 0.7 VERTEBRAL ARTERIES: 1. Right Vertebral Artery: The right vertebral artery flow direction is antegrade. 2. Left Vertebral Artery: The left vertebral artery flow direction is antegrade. OTHER FINDINGS: 1. Right Brachial Blood pressure: 110 mmHg. 2. Left Brachial Blood pressure: 116 mmHg. IMPRESSION: RIGHT: Duplex scan does not suggest hemodynamically significant stenosis of the right extracranial carotid arteries. LEFT: Duplex scan does not suggest hemodynamically significant stenosis of the left extracranial carotid arteries.
--- NOTE | 2017-04-24 18:52 | CP.PCM.CON ---
<Lev Gu Jo - Last Filed: 04/24/17 22:04> History of Present Illness - History of Present Illness History of Present Illness: Cardiology consult note for Dr. Kevin Morales DO, PGY-2 Reason For Consult: TIA with Hx of HTN, HLD HPI: 71 M w/ pertinent medical history of HTN, HLD, multiple CVAs, and recent AKA b/ l 2/2 PAD, presents with stroke like symptoms. Per patient's daughter, patient was in a rehab facility after his recent hospitalization, where she believes he was not given his coumadin regularly. She got a phone call from her brother earlier today, who stated that their father was not able to express himself, was stuttering, and was not communicating effectively. He further stated that their father was making strange faces, and was contorting his arms in a strange fashion. When pt's daughter herself spoke to the patient, he was stuttering and, in her own words, "was talking jibberish." The [facility] then called 911 and patient was taken to [facility]. 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 All: Banana, pineapple SocHx: +Social etoh; Denies Tobacco/Illicits Hosp: Mar 2017 for LE occlusions, b/l AKA FamHx: COPD, [facility] Meds: Chlorthalidone, Cozaar, Dilantin, Nifedipine, Lipitor, Metoprolol Tartrate, Plavix ROS: limited 2/2 patient's mental status at present Past Patient History - Infectious Disease Hx of Infectious Diseases: None - Past Medical History & Family History Past Medical History?: Yes - Past Social History Smoking Status: Never Smoked - CARDIAC Hx Hypertension: Yes - PULMONARY Hx Respiratory Disorders: No - NEUROLOGICAL HX Cerebrovascular Accident: Yes - HEENT Hx HEENT Problems: Yes 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) - RENAL Hx Chronic Kidney Disease: No - ENDOCRINE/METABOLIC Hx Endocrine Disorders: No - HEMATOLOGICAL/ONCOLOGICAL Hx Blood Disorders: No - INTEGUMENTARY Hx Dermatological Problems: No - MUSCULOSKELETAL/RHEUMATOLOGICAL Hx Musculoskeletal Disorders: No Hx Falls: No - GASTROINTESTINAL Hx Gastrointestinal Disorders: No - GENITOURINARY/GYNECOLOGICAL Hx Genitourinary Disorders: No - PSYCHIATRIC Hx Psychophysiologic Disorder: No Hx Substance Use: No - SURGICAL HISTORY Hx Surgeries: Yes Hx Cardiac Catheterization: Yes Hx Musculoskeletal Surgery: Yes (Bilateral AKA) - ANESTHESIA Hx Anesthesia: Yes Hx Anesthesia Reactions: No Hx Malignant Hyperthermia: No Meds Allergies/Adverse Reactions: Allergies Allergy/AdvReac Type Severity Reaction Status Date / Time banana Allergy SWELLING Verified 04/24/17 00:44 pineapple Allergy SWELLING Verified 04/24/17 00:44 - Medications Medications: Current Medications Aspirin (Ecotrin) 81 mg PO DAILY [facility] Last Admin: 04/24/17 10:52 Dose: 81 mg Chlorthalidone (Hygroton) 25 mg PO DAILY [facility] Last Admin: 04/24/17 11:02 Dose: 25 mg Clopidogrel Bisulfate (Plavix) 75 mg PO DAILY [facility] Last Admin: 04/24/17 10:49 Dose: 75 mg Diltiazem HCl (Cardizem Cd) 360 mg PO DAILY [facility] Last Admin: 04/24/17 10:52 Dose: 360 mg Finasteride (Proscar) 5 mg PO DAILY [facility] Last Admin: 04/24/17 11:02 Dose: 5 mg Gabapentin (Neurontin) 300 mg PO TID [facility] Last Admin: 04/24/17 18:50 Dose: 300 mg Dextrose/Sodium Chloride (Dextrose 5%/0.45% Ns 1000 Ml) 1,000 mls @ 70 mls/hr IV .[id number] [facility] Last Admin: 04/24/17 15:01 Dose: 70 mls/hr Levetiracetam (Keppra) 500 mg PO BID [facility] Last Admin: 04/24/17 18:49 Dose: 500 mg Losartan Potassium (Cozaar) 25 mg PO DAILY [facility] Last Admin: 04/24/17 10:49 Dose: 25 mg Oxycodone HCl (Oxycodone Immediate Release Tab) 5 mg PO Q6 PRN PRN Reason: Pain, severe (8-10) Rosuvastatin Calcium (Crestor) 10 mg PO HS [facility] Tamsulosin HCl (Flomax) 0.4 mg PO DAILY [facility] Last Admin: 04/24/17 10:52 Dose: 0.4 mg Vitamin A (Vitamin A & D Oint Ud Foilpak) 1 ea TOP BID [facility] Last Admin: 04/24/17 18:50 Dose: 1 ea Zolpidem Tartrate (Ambien) 5 mg PO HS EBONY Physical Exam - Additional Findings Additional findings: Phys Exam: VS as below Const'l: Unable to assess pt's mental status at current Head/Neck: neck supple, no jvd, trachea midline, carotid midline, no cervical /head mass Eyes: abdi, nonicteric sclera, eom intact ENT: auditory acuity grossly intact, throat not congested, no nasal deformity Cardio: rrr, no m/r/g, no carotid bruit, nml s1, s2 Pulm: Decreased breath sounds; no accessory muscle use, ctab Abd: s/nt/nd, nbs x 4 q, no palpable masses Derm: no rashes, no ulcers, no lesions Extr: B/L AKA. Surgical Site clean and dry w/o erythema; no edema, no cyanosis, no calf tenderness, no lesions, no varicosities Neuro: cn II-XII grossly intact, ue and le 5/5 muscle strength bilaterally, no los ue, le bilaterally and core Results - Vital Signs Recent Vital Signs: Last Vital Signs Temp 98.4 F 04/24/17 15:33 Pulse 50 L 04/24/17 15:33 Resp 20 04/24/17 15:33 BP 107/58 L 04/24/17 15:33 Pulse Ox 99 04/24/17 15:33 - Labs Result Diagrams: 04/24/17 07:23 04/24/17 07:23 Labs: Laboratory Results - last 24 hr 04/24/17 04/24/17 04/24/17 01:23 01:23 01:23 WBC 6.9 RBC 4.54 Hgb 11.5 L Hct 34.9 L MCV 76.8 L MCH 25.3 L MCHC 32.9 L RDW 16.3 H Plt Count 282 MPV 7.8 Neut % (Auto) 59.6 Lymph % (Auto) 32.7 [place] % (Auto) 5.7 Eos % (Auto) 1.7 Baso % (Auto) 0.3 Neut # 4.1 Lymph # 2.3 [place] # 0.4 Eos # 0.1 Baso # 0.0 ESR PT 18.7 H INR 1.6 APTT 28 Sodium 136 Potassium 3.5 L Chloride 103 Carbon Dioxide 23 Anion Gap 14 BUN 21 H Creatinine 1.1 Est GFR ( Amer) > 60 Est GFR (Non-Af Amer) > 60 Random Glucose 88 Hemoglobin A1c Calcium 7.9 L Phosphorus Magnesium Total Bilirubin 0.6 AST 17 ALT 34 Alkaline Phosphatase 87 Troponin I 0.0330 C-React Prot High Sens Total Protein 5.9 L Albumin 3.2 L Globulin 2.7 Albumin/Globulin Ratio 1.2 Triglycerides 49 D Cholesterol 99 LDL Cholesterol Direct 52 HDL Cholesterol 38 Folate Homocysteine Free T4 TSH 3rd Generation Blood Type Antibody Screen 04/24/17 04/24/17 04/24/17 01:23 02:18 07:23 WBC 6.0 RBC 4.41 Hgb 11.1 L Hct 33.3 L MCV 75.5 L MCH 25.2 L MCHC 33.3 RDW 16.3 H Plt Count 288 MPV 8.2 Neut % (Auto) 63.6 Lymph % (Auto) 28.9 [place] % (Auto) 5.5 Eos % (Auto) 1.8 Baso % (Auto) 0.2 Neut # 3.8 Lymph # 1.7 [place] # 0.3 Eos # 0.1 Baso # 0.0 ESR 14 PT INR APTT Sodium Potassium Chloride Carbon Dioxide Anion Gap BUN Creatinine Est GFR ( Amer) Est GFR (Non-Af Amer) Random Glucose Hemoglobin A1c 4.9 Calcium Phosphorus Magnesium Total Bilirubin AST ALT Alkaline Phosphatase Troponin I C-React Prot High Sens Total Protein Albumin Globulin Albumin/Globulin Ratio Triglycerides Cholesterol LDL Cholesterol Direct HDL Cholesterol Folate Homocysteine Free T4 TSH 3rd Generation Blood Type O POSITIVE Antibody Screen Negative 04/24/17 04/24/17 07:23 07:23 WBC RBC Hgb Hct MCV MCH MCHC RDW Plt Count MPV Neut % (Auto) Lymph % (Auto) [place] % (Auto) Eos % (Auto) Baso % (Auto) Neut # Lymph # [place] # Eos # Baso # ESR PT INR APTT Sodium 138 Potassium 3.2 L Chloride 105 Carbon Dioxide 24 Anion Gap 13 BUN 19 Creatinine 1.1 Est GFR ( Amer) > 60 Est GFR (Non-Af Amer) > 60 Random Glucose 76 Hemoglobin A1c Calcium 8.0 L Phosphorus 4.4 Magnesium 1.9 Total Bilirubin 0.4 AST 19 ALT 29 Alkaline Phosphatase 85 Troponin I C-React Prot High Sens 0.37 L Total Protein 6.6 Albumin 3.0 L Globulin 3.7 Albumin/Globulin Ratio 0.8 L Triglycerides Cholesterol LDL Cholesterol Direct HDL Cholesterol Folate 12.6 Homocysteine 12.9 Free T4 1.53 TSH 3rd Generation 1.87 Blood Type Antibody Screen Assessment & Plan - Assessment and Plan (Free Text) Assessment: A/P 71 M with PMHx of HTN, A-Fib, CVA, PAD presenting with stroke-like symptoms. Pt 's mental status difficult to assess at current time. Hx obtained from daughter. CVA, possibly 2/2 not receiving medications - Lipitor - ASA 81 mg PO 1x/day - Manage BP - Neurology c/s PAD S/P Bilateral AKA - Daily Coumadin - Goal INR is 2.5 to 3.5 - Gabapentin 300 mg PO 3x/day Hx Malignant HTN - Metoprolol 100 mg PO Q12H - Cozaar 25 mg PO 1x/day - Chlorthalidone Hx Atrial Fibrillation (Stable) - Amiodarone 200 mg PO 2x/day - Metoprolol Tartrate - Cardizem 360 mg PO 1x/day Thank you for this interesting consult Lev Morales DO PGY - 1, d/w Dr. Brown <Luis Brown - Last Filed: 04/25/17 22:35> Meds - Medications Medications: Current Medications Amiodarone HCl (Cordarone) 200 mg PO BID [facility] Last Admin: 04/25/17 17:21 Dose: Not Given Aspirin (Ecotrin) 81 mg PO DAILY [facility] Last Admin: 04/25/17 10:07 Dose: 81 mg Chlorthalidone (Hygroton) 25 mg PO DAILY [facility] Last Admin: 04/25/17 10:08 Dose: 25 mg Clopidogrel Bisulfate (Plavix) 75 mg PO DAILY [facility] Last Admin: 04/25/17 10:08 Dose: 75 mg Diltiazem HCl (Cardizem Cd) 360 mg PO DAILY [facility] Last Admin: 04/25/17 10:08 Dose: 360 mg Finasteride (Proscar) 5 mg PO DAILY [facility] Last Admin: 04/25/17 10:12 Dose: 5 mg Gabapentin (Neurontin) 300 mg PO TID [facility] Last Admin: 04/25/17 17:17 Dose: 300 mg Dextrose/Sodium Chloride (Dextrose 5%/0.45% Ns 1000 Ml) 1,000 mls @ 70 mls/hr IV .[id number] [facility] Last Admin: 04/25/17 19:31 Dose: Not Given Levetiracetam (Keppra) 500 mg PO BID [facility] Last Admin: 04/25/17 17:17 Dose: 500 mg Losartan Potassium (Cozaar) 25 mg PO DAILY [facility] Last Admin: 04/25/17 10:07 Dose: 25 mg Oxycodone HCl (Oxycodone Immediate Release Tab) 5 mg PO Q6 PRN PRN Reason: Pain, severe (8-10) Rosuvastatin Calcium (Crestor) 10 mg PO HS [facility] Last Admin: 04/25/17 21:01 Dose: 10 mg Tamsulosin HCl (Flomax) 0.4 mg PO DAILY [facility] Last Admin: 04/25/17 10:07 Dose: 0.4 mg Vitamin A (Vitamin A & D Oint Ud Foilpak) 1 ea TOP BID [facility] Last Admin: 04/25/17 17:20 Dose: 1 ea Warfarin Sodium (Coumadin) 4 mg PO 1800 [facility] Last Admin: 04/25/17 17:17 Dose: 4 mg Zolpidem Tartrate (Ambien) 5 mg PO HS [facility] Last Admin: 04/25/17 21:01 Dose: 5 mg Results - Vital Signs Recent Vital Signs: Last Vital Signs Temp 98.1 F 04/25/17 15:39 Pulse 51 L 04/25/17 16:00 Resp 20 04/25/17 15:39 BP 112/60 04/25/17 15:39 Pulse Ox 98 04/25/17 15:39 - Labs Result Diagrams: 04/25/17 06:32 04/25/17 06:32 Labs: Laboratory Results - last 24 hr 04/24/17 04/25/17 04/25/17 23:27 06:32 06:32 WBC 5.9 RBC 4.27 L Hgb 10.8 L Hct 32.6 L MCV 76.2 L MCH 25.4 L MCHC 33.3 RDW 16.4 H Plt Count 273 MPV 7.8 Neut % (Auto) 53.5 Lymph % (Auto) 37.2 [place] % (Auto) 6.1 Eos % (Auto) 3.0 Baso % (Auto) 0.2 Neut # 3.1 Lymph # 2.2 [place] # 0.4 Eos # 0.2 Baso # 0.0 PT INR Sodium 136 Potassium 3.7 Chloride 103 Carbon Dioxide 25 Anion Gap 12 BUN 19 Creatinine 1.1 Est GFR ( Amer) > 60 Est GFR (Non-Af Amer) > 60 Random Glucose 84 Calcium 7.9 L Phosphorus 4.0 Magnesium 1.8 Total Bilirubin 0.6 AST 20 ALT 33 Alkaline Phosphatase 76 Total Protein 5.5 L Albumin 2.9 L Globulin 2.6 Albumin/Globulin Ratio 1.1 Vitamin B12 464 Stool Occult Blood Negative 04/25/17 06:32 WBC RBC Hgb Hct MCV MCH MCHC RDW Plt Count MPV Neut % (Auto) Lymph % (Auto) [place] % (Auto) Eos % (Auto) Baso % (Auto) Neut # Lymph # [place] # Eos # Baso # PT 21.2 H INR 1.9 Sodium Potassium Chloride Carbon Dioxide Anion Gap BUN Creatinine Est GFR ( Amer) Est GFR (Non-Af Amer) Random Glucose Calcium Phosphorus Magnesium Total Bilirubin AST ALT Alkaline Phosphatase Total Protein Albumin Globulin Albumin/Globulin Ratio Vitamin B12 Stool Occult Blood Assessment & Plan (1) TIA (transient ischemic attack) Status: Acute (2) Atrial fibrillation Status: Acute (3) NSVT (nonsustained ventricular tachycardia) Status: Acute (4) HTN (hypertension) Status: Chronic (5) Peripheral arterial occlusive disease Status: Resolved Attending/Attestation - Attestation I have personally seen and examined this patient.: Yes I have fully participated in the care of the patient.: Yes I have reviewed all pertinent clinical information: Yes Notes (Text): 04/25/17 22:35 acute CVA on coumadin and plavix will need [facility]VES to r/o thromboembolic event plan for [facility] on thursday
--- NOTE | 2017-04-24 19:53 | CP.PCM.HP ---
History of Present Illness - History of Present Illness History of Present Illness: 71-year-old female with PMHatrial fibrillation, HTN, hyperlipidemia and seizure disorder presents to the ER with C/Oslurring of speech and facial droop. C/Oslurring of speech for 2-3 hours. C/Ofacial droop for 2-3 hours. No C/Oweakness of any extremities, confusion, headache, vomiting, fever, tingling and numbness sensation, vertigo, ringing in the ears. 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) - RENAL Hx Chronic Kidney Disease: No - ENDOCRINE/METABOLIC Hx Endocrine Disorders: No - HEMATOLOGICAL/ONCOLOGICAL Hx Blood Disorders: No - INTEGUMENTARY Hx Dermatological Problems: No - MUSCULOSKELETAL/RHEUMATOLOGICAL Hx Musculoskeletal Disorders: No Hx Falls: No - GASTROINTESTINAL Hx Gastrointestinal Disorders: No - GENITOURINARY/GYNECOLOGICAL Hx Genitourinary Disorders: No - PSYCHIATRIC Hx Psychophysiologic Disorder: No Hx Substance Use: No - SURGICAL HISTORY Hx Surgeries: Yes Hx Cardiac Catheterization: Yes Hx Musculoskeletal Surgery: Yes (Bilateral AKA) - ANESTHESIA Hx Anesthesia: Yes Hx Anesthesia Reactions: No Hx Malignant Hyperthermia: No Meds Home Medications: Home Medication List Medication Instructions Recorded Confirmed Type Amiodarone [Cordarone] 200 mg PO DAILY tab 05/01/17 Rx [id number] CD [Cardizem CD] 120 mg PO DAILY cap 05/01/17 Rx Allergies/Adverse Reactions: Allergies Allergy/AdvReac Type Severity Reaction Status Date / Time banana Allergy SWELLING Verified 04/24/17 00:44 pineapple Allergy SWELLING Verified 04/24/17 00:44 Physical Exam - Constitutional Appears: Well - Head Exam Head Exam: ATRAUMATIC, NORMAL INSPECTION, NORMOCEPHALIC - Eye Exam Eye Exam: EOMI, Normal appearance, PERRL Pupil Exam: NORMAL ACCOMODATION, PERRL - ENT Exam ENT Exam: Mucous Membranes Moist, Normal Exam - Neck Exam Neck exam: Positive for: Normal Inspection - Respiratory Exam Respiratory Exam: Decreased Breath Sounds - Cardiovascular Exam Cardiovascular Exam: REGULAR RHYTHM, +S1, +S2 - GI/Abdominal Exam GI & Abdominal Exam: Diminished Bowel Sounds, Soft - Rectal Exam Rectal Exam: Deferred Results - Vital Signs Recent Vital Signs: Last Vital Signs Temp 98.4 F 04/24/17 15:33 Pulse 50 L 04/24/17 15:33 Resp 20 04/24/17 15:33 BP 107/58 L 04/24/17 15:33 Pulse Ox 99 04/24/17 15:33 - Labs Result Diagrams: 05/04/17 00:57 05/04/17 07:41 Labs: Laboratory Results - last 24 hr 04/24/17 04/24/17 04/24/17 01:23 01:23 01:23 WBC 6.9 RBC 4.54 Hgb 11.5 L Hct 34.9 L MCV 76.8 L MCH 25.3 L MCHC 32.9 L RDW 16.3 H Plt Count 282 MPV 7.8 Neut % (Auto) 59.6 Lymph % (Auto) 32.7 [place] % (Auto) 5.7 Eos % (Auto) 1.7 Baso % (Auto) 0.3 Neut # 4.1 Lymph # 2.3 [place] # 0.4 Eos # 0.1 Baso # 0.0 ESR PT 18.7 H INR 1.6 APTT 28 Sodium 136 Potassium 3.5 L Chloride 103 Carbon Dioxide 23 Anion Gap 14 BUN 21 H Creatinine 1.1 Est GFR ( Amer) > 60 Est GFR (Non-Af Amer) > 60 Random Glucose 88 Hemoglobin A1c Calcium 7.9 L Phosphorus Magnesium Total Bilirubin 0.6 AST 17 ALT 34 Alkaline Phosphatase 87 Troponin I 0.0330 C-React Prot High Sens Total Protein 5.9 L Albumin 3.2 L Globulin 2.7 Albumin/Globulin Ratio 1.2 Triglycerides 49 D Cholesterol 99 LDL Cholesterol Direct 52 HDL Cholesterol 38 Folate Homocysteine Free T4 TSH 3rd Generation Blood Type Antibody Screen 04/24/17 04/24/17 04/24/17 01:23 02:18 07:23 WBC 6.0 RBC 4.41 Hgb 11.1 L Hct 33.3 L MCV 75.5 L MCH 25.2 L MCHC 33.3 RDW 16.3 H Plt Count 288 MPV 8.2 Neut % (Auto) 63.6 Lymph % (Auto) 28.9 [place] % (Auto) 5.5 Eos % (Auto) 1.8 Baso % (Auto) 0.2 Neut # 3.8 Lymph # 1.7 [place] # 0.3 Eos # 0.1 Baso # 0.0 ESR 14 PT INR APTT Sodium Potassium Chloride Carbon Dioxide Anion Gap BUN Creatinine Est GFR ( Amer) Est GFR (Non-Af Amer) Random Glucose Hemoglobin A1c 4.9 Calcium Phosphorus Magnesium Total Bilirubin AST ALT Alkaline Phosphatase Troponin I C-React Prot High Sens Total Protein Albumin Globulin Albumin/Globulin Ratio Triglycerides Cholesterol LDL Cholesterol Direct HDL Cholesterol Folate Homocysteine Free T4 TSH 3rd Generation Blood Type O POSITIVE Antibody Screen Negative 04/24/17 04/24/17 07:23 07:23 WBC RBC Hgb Hct MCV MCH MCHC RDW Plt Count MPV Neut % (Auto) Lymph % (Auto) [place] % (Auto) Eos % (Auto) Baso % (Auto) Neut # Lymph # [place] # Eos # Baso # ESR PT INR APTT Sodium 138 Potassium 3.2 L Chloride 105 Carbon Dioxide 24 Anion Gap 13 BUN 19 Creatinine 1.1 Est GFR ( Amer) > 60 Est GFR (Non-Af Amer) > 60 Random Glucose 76 Hemoglobin A1c Calcium 8.0 L Phosphorus 4.4 Magnesium 1.9 Total Bilirubin 0.4 AST 19 ALT 29 Alkaline Phosphatase 85 Troponin I C-React Prot High Sens 0.37 L Total Protein 6.6 Albumin 3.0 L Globulin 3.7 Albumin/Globulin Ratio 0.8 L Triglycerides Cholesterol LDL Cholesterol Direct HDL Cholesterol Folate 12.6 Homocysteine 12.9 Free T4 1.53 TSH 3rd Generation 1.87 Blood Type Antibody Screen
[2017-04-25] MEDS: Dextrose 5%/0.45% NS 1,000 ML IV SCH ×3 (05:08→19:31)
[2017-04-25 06:42] LABS: BASO % 0.2 % (0.0-2.0); EOS # 0.2 K/uL (0.0-0.7); HEMATOCRIT 32.6 % (35.0-51.0); LYMPH # 2.2 K/uL (1.0-4.3); LYMPH % 37.2 % (20.0-40.0); MEAN CELL VOLUME 76.2 fL (80.0-94.0); MEAN CORPUSCULAR HEMOGLOBIN 25.4 pg (27.0-31.0); MEAN CORPUSCULAR HGB CONC 33.3 g/dL (33.0-37.0); MEAN PLATELET VOLUME 7.8 fL (7.2-11.7); MONO # 0.4 K/uL (0.0-0.8); MONO % 6.1 % (0.0-10.0); NRBC % 0.1 % (0.0-2.0); RED CELL DISTRIBUTION WIDTH 16.4 % (11.5-14.5); WHITE BLOOD COUNT 5.9 K/uL (4.8-10.8)
[2017-04-25 06:46] LABS: INR 1.9
[2017-04-25 06:52] LABS: ALKALINE PHOSPHATASE 76 U/L (38-126); ALT/SGPT 33 U/L (21-72); AST/SGOT 20 U/L (17-59); BILIRUBIN,TOTAL 0.6 mg/dL (0.2-1.3); BLOOD UREA NITROGEN 19 mg/dL (9-20); CALCIUM 7.9 mg/dl (8.6-10.4); CARBON DIOXIDE 25 mmol/L (22-30); CHLORIDE 103 mmol/L (98-107); GFR AFRICAN-AMERICAN > 60; GLUCOSE,RANDOM 84 mg/dL (75-110); MAGNESIUM 1.8 mg/dL (1.6-2.3); POTASSIUM 3.7 mmol/L (3.6-5.2); SODIUM 136 mmol/L (132-148); TOTAL PROTEIN 5.5 g/dL (6.3-8.3)
[2017-04-25 08:31] LABS: ALB/GLOB RATIO 1.1 (1.0-2.1)
[2017-04-25] MEDS: Vitamins A & D Oint UD Foilpak TOP SCH ×2 (10:08→17:20)
[2017-04-25] MEDS: diltiaZEM 180 mg/24 Hours CD Cap PO SCH (10:08)
--- NOTE | 2017-04-25 16:07 | CP.PCM.PN ---
Subjective - Date & Time of Evaluation Date of Evaluation: 04/25/17 Time of Evaluation: 11:20 - Subjective Subjective: clinically same Objective - Vital Signs/Intake and Output Vital Signs (last 24 hours): Temp Pulse Resp BP Pulse Ox 98.1 F 60 18 151/67 H 98 04/25/17 07:45 04/25/17 07:45 04/25/17 07:45 04/25/17 07:45 04/25/17 07:45 Intake and Output: 04/25/17 04/25/17 06:59 18:59 Intake Total 1440 Output Total 475 Balance 965 - Medications Medications: Current Medications Amiodarone HCl (Cordarone) 200 mg PO BID [facility] Last Admin: 04/25/17 10:08 Dose: 200 mg Aspirin (Ecotrin) 81 mg PO DAILY [facility] Last Admin: 04/25/17 10:07 Dose: 81 mg Chlorthalidone (Hygroton) 25 mg PO DAILY [facility] Last Admin: 04/25/17 10:08 Dose: 25 mg Clopidogrel Bisulfate (Plavix) 75 mg PO DAILY [facility] Last Admin: 04/25/17 10:08 Dose: 75 mg Diltiazem HCl (Cardizem Cd) 360 mg PO DAILY [facility] Last Admin: 04/25/17 10:08 Dose: 360 mg Finasteride (Proscar) 5 mg PO DAILY [facility] Last Admin: 04/25/17 10:12 Dose: 5 mg Gabapentin (Neurontin) 300 mg PO TID [facility] Last Admin: 04/25/17 14:12 Dose: 300 mg Dextrose/Sodium Chloride (Dextrose 5%/0.45% Ns 1000 Ml) 1,000 mls @ 70 mls/hr IV .[id number] [facility] Last Admin: 04/25/17 10:09 Dose: 70 mls/hr Levetiracetam (Keppra) 500 mg PO BID [facility] Last Admin: 04/25/17 10:08 Dose: 500 mg Losartan Potassium (Cozaar) 25 mg PO DAILY [facility] Last Admin: 04/25/17 10:07 Dose: 25 mg Oxycodone HCl (Oxycodone Immediate Release Tab) 5 mg PO Q6 PRN PRN Reason: Pain, severe (8-10) Rosuvastatin Calcium (Crestor) 10 mg PO HS [facility] Last Admin: 04/24/17 21:41 Dose: 10 mg Tamsulosin HCl (Flomax) 0.4 mg PO DAILY [facility] Last Admin: 04/25/17 10:07 Dose: 0.4 mg Vitamin A (Vitamin A & D Oint Ud Foilpak) 1 ea TOP BID [facility] Last Admin: 04/25/17 10:08 Dose: 1 ea Warfarin Sodium (Coumadin) 3 mg PO 1800 EBONY Zolpidem Tartrate (Ambien) 5 mg PO HS [facility] Last Admin: 04/24/17 21:42 Dose: Not Given - Labs Labs: 04/25/17 06:32 04/25/17 06:32 PT 21.2 SECONDS (9.7-12.2) H 04/25/17 06:32 INR 1.9 04/25/17 06:32 APTT 28 SECONDS (21-34) 04/24/17 01:23 - Constitutional Appears: Well - Head Exam Head Exam: ATRAUMATIC, NORMAL INSPECTION, NORMOCEPHALIC - Eye Exam Eye Exam: EOMI, Normal appearance, PERRL Pupil Exam: NORMAL ACCOMODATION, PERRL - ENT Exam ENT Exam: Mucous Membranes Moist, Normal Exam - Neck Exam Neck Exam: Full ROM, Normal Inspection. absent: Lymphadenopathy - Respiratory Exam Respiratory Exam: Decreased Breath Sounds - Cardiovascular Exam Cardiovascular Exam: REGULAR RHYTHM, +S1, +S2 - GI/Abdominal Exam GI & Abdominal Exam: Soft, Diminished Bowel Sounds - Rectal Exam Rectal Exam: Deferred Assessment and Plan (1) Bradycardia Status: Acute (2) CVA (cerebral vascular accident) Status: Acute (3) TIA (transient ischemic attack) Status: Acute (4) Atrial fibrillation Status: Acute (5) Elevated CK Status: Acute (6) Knee pain, left Status: Acute (7) Medicine refill Status: Acute (8) NSVT (nonsustained ventricular tachycardia) Status: Acute (9) Preop cardiovascular exam Status: Acute (10) Rhabdomyolysis Status: Acute (11) CKD (chronic kidney disease) Status: Chronic (12) HTN (hypertension) Status: Chronic (13) HTN (hypertension), malignant Status: Chronic (14) Critical lower limb ischemia Status: Resolved (15) Peripheral arterial occlusive disease Status: Resolved (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 Patient better. CT head not suggestive of any acute intracranial hemorrhage. EKG suggestive of bifascicular block. Carotid Doppler study not suggestive of significant stenosis. EEG normal. MRI brain suggestive of focal acute infarct at the posterior aspect of the left sanchez radiata. Foci of encephalomalacia at the right brain.
--- NOTE | 2017-04-25 22:38 | CP.PCM.PN ---
Subjective - Date & Time of Evaluation Date of Evaluation: 04/25/17 Time of Evaluation: 22:36 - Subjective Subjective: bradycardia noted on tele Pm dose of amiodarone held MRI - CVA Objective - Vital Signs/Intake and Output Vital Signs (last 24 hours): Temp Pulse Resp BP Pulse Ox 98.1 F 51 L 20 112/60 98 04/25/17 15:39 04/25/17 16:00 04/25/17 15:39 04/25/17 15:39 04/25/17 15:39 - Medications Medications: Current Medications Amiodarone HCl (Cordarone) 200 mg PO BID [facility] Last Admin: 04/25/17 17:21 Dose: Not Given Aspirin (Ecotrin) 81 mg PO DAILY [facility] Last Admin: 04/25/17 10:07 Dose: 81 mg Chlorthalidone (Hygroton) 25 mg PO DAILY [facility] Last Admin: 04/25/17 10:08 Dose: 25 mg Clopidogrel Bisulfate (Plavix) 75 mg PO DAILY [facility] Last Admin: 04/25/17 10:08 Dose: 75 mg Diltiazem HCl (Cardizem Cd) 360 mg PO DAILY [facility] Last Admin: 04/25/17 10:08 Dose: 360 mg Finasteride (Proscar) 5 mg PO DAILY [facility] Last Admin: 04/25/17 10:12 Dose: 5 mg Gabapentin (Neurontin) 300 mg PO TID [facility] Last Admin: 04/25/17 17:17 Dose: 300 mg Dextrose/Sodium Chloride (Dextrose 5%/0.45% Ns 1000 Ml) 1,000 mls @ 70 mls/hr IV .[id number] [facility] Last Admin: 04/25/17 19:31 Dose: Not Given Levetiracetam (Keppra) 500 mg PO BID [facility] Last Admin: 04/25/17 17:17 Dose: 500 mg Losartan Potassium (Cozaar) 25 mg PO DAILY [facility] Last Admin: 04/25/17 10:07 Dose: 25 mg Oxycodone HCl (Oxycodone Immediate Release Tab) 5 mg PO Q6 PRN PRN Reason: Pain, severe (8-10) Rosuvastatin Calcium (Crestor) 10 mg PO HS [facility] Last Admin: 04/25/17 21:01 Dose: 10 mg Tamsulosin HCl (Flomax) 0.4 mg PO DAILY [facility] Last Admin: 04/25/17 10:07 Dose: 0.4 mg Vitamin A (Vitamin A & D Oint Ud Foilpak) 1 ea TOP BID [facility] Last Admin: 04/25/17 17:20 Dose: 1 ea Warfarin Sodium (Coumadin) 4 mg PO 1800 [facility] Last Admin: 04/25/17 17:17 Dose: 4 mg Zolpidem Tartrate (Ambien) 5 mg PO HS [facility] Last Admin: 04/25/17 21:01 Dose: 5 mg - Labs Labs: 04/25/17 06:32 04/25/17 06:32 PT 21.2 SECONDS (9.7-12.2) H 04/25/17 06:32 INR 1.9 04/25/17 06:32 APTT 28 SECONDS (21-34) 04/24/17 01:23 - Constitutional Appears: Well - Head Exam Head Exam: ATRAUMATIC, NORMAL INSPECTION, NORMOCEPHALIC - Eye Exam Eye Exam: EOMI, Normal appearance, PERRL Pupil Exam: NORMAL ACCOMODATION, PERRL - ENT Exam ENT Exam: Mucous Membranes Moist, Normal Exam - Neck Exam Neck Exam: Full ROM, Normal Inspection. absent: Lymphadenopathy - Respiratory Exam Respiratory Exam: Clear to Ausculation Bilateral, Rales, NORMAL BREATHING PATTERN - Cardiovascular Exam Cardiovascular Exam: Irregular Rhythm, +S1, +S2, Murmur - GI/Abdominal Exam GI & Abdominal Exam: Soft, Normal Bowel Sounds. absent: Tenderness - Exam Bimanual exam: NORMAL BIMANUAL EXAM - Extremities Exam Extremities Exam: Full ROM, Normal Capillary Refill, Normal Inspection. absent : Joint Swelling, Pedal Edema Additional comments: AKA - Back Exam Back Exam: NORMAL INSPECTION - Neurological Exam Neurological Exam: Altered, Awake - Psychiatric Exam Psychiatric exam: Agitated, Normal Affect - Skin Skin Exam: Dry, Intact, Normal Color, Warm Assessment and Plan (1) TIA (transient ischemic attack) Assessment & Plan: plan for YVES on thursday cont OAC and plavix Status: Acute (2) Atrial fibrillation Assessment & Plan: in NSR will decrease dose of amiodarone to 200mg daily Status: Acute (3) NSVT (nonsustained ventricular tachycardia) Status: Acute (4) HTN (hypertension) Status: Chronic (5) Peripheral arterial occlusive disease Status: Resolved
[2017-04-26] MEDS: Dextrose 5%/0.45% NS 1,000 ML IV SCH ×3 (00:22→17:50)
[2017-04-26] MEDS ORDERED: Influenza Vaccine 60 mcg/0.5 mL SYR (4YR UP) IM ONE (10:00)
[2017-04-26] MEDS: diltiaZEM 180 mg/24 Hours CD Cap PO SCH (10:43)
[2017-04-26] MEDS: Vitamins A & D Oint UD Foilpak TOP SCH ×2 (10:43→17:51)
--- NOTE | 2017-04-26 12:38 | CP.PCM.PN ---
Subjective - Date & Time of Evaluation Date of Evaluation: 04/26/17 Time of Evaluation: 11:20 - Subjective Subjective: clinically same Objective - Vital Signs/Intake and Output Vital Signs (last 24 hours): Temp Pulse Resp BP Pulse Ox 98.2 F 52 L 18 143/74 96 04/26/17 07:45 04/26/17 07:45 04/26/17 07:45 04/25/17 23:25 04/26/17 07:45 Intake and Output: 04/26/17 04/26/17 06:59 18:59 Intake Total 560 Output Total 1300 Balance -740 - Medications Medications: Current Medications Amiodarone HCl (Cordarone) 200 mg PO BID [facility] Last Admin: 04/26/17 10:43 Dose: 200 mg Aspirin (Ecotrin) 81 mg PO DAILY [facility] Last Admin: 04/26/17 10:43 Dose: 81 mg Chlorthalidone (Hygroton) 25 mg PO DAILY [facility] Last Admin: 04/26/17 10:43 Dose: 25 mg Clopidogrel Bisulfate (Plavix) 75 mg PO DAILY [facility] Last Admin: 04/26/17 10:43 Dose: 75 mg Diltiazem HCl (Cardizem Cd) 360 mg PO DAILY [facility] Last Admin: 04/26/17 10:43 Dose: 360 mg Finasteride (Proscar) 5 mg PO DAILY [facility] Last Admin: 04/26/17 10:46 Dose: 5 mg Gabapentin (Neurontin) 300 mg PO TID [facility] Last Admin: 04/26/17 10:46 Dose: 300 mg Dextrose/Sodium Chloride (Dextrose 5%/0.45% Ns 1000 Ml) 1,000 mls @ 70 mls/hr IV .[id number] [facility] Last Admin: 04/26/17 09:37 Dose: Not Given Levetiracetam (Keppra) 500 mg PO BID [facility] Last Admin: 04/26/17 10:43 Dose: 500 mg Losartan Potassium (Cozaar) 25 mg PO DAILY [facility] Last Admin: 04/26/17 10:44 Dose: 25 mg Oxycodone HCl (Oxycodone Immediate Release Tab) 5 mg PO Q6 PRN PRN Reason: Pain, severe (8-10) Rosuvastatin Calcium (Crestor) 10 mg PO HS [facility] Last Admin: 04/25/17 21:01 Dose: 10 mg Tamsulosin HCl (Flomax) 0.4 mg PO DAILY [facility] Last Admin: 04/26/17 10:43 Dose: 0.4 mg Vitamin A (Vitamin A & D Oint Ud Foilpak) 1 ea TOP BID [facility] Last Admin: 04/26/17 10:43 Dose: 1 ea Warfarin Sodium (Coumadin) 4 mg PO 1800 [facility] Last Admin: 04/25/17 17:17 Dose: 4 mg Zolpidem Tartrate (Ambien) 5 mg PO HS [facility] Last Admin: 04/25/17 21:01 Dose: 5 mg - Labs Labs: 04/25/17 06:32 04/25/17 06:32 PT 21.2 SECONDS (9.7-12.2) H 04/25/17 06:32 INR 1.9 04/25/17 06:32 APTT 28 SECONDS (21-34) 04/24/17 01:23 - Constitutional Appears: Well - Head Exam Head Exam: ATRAUMATIC, NORMAL INSPECTION, NORMOCEPHALIC - Eye Exam Eye Exam: EOMI, Normal appearance, PERRL Pupil Exam: NORMAL ACCOMODATION, PERRL - ENT Exam ENT Exam: Mucous Membranes Moist, Normal Exam - Neck Exam Neck Exam: Full ROM, Normal Inspection. absent: Lymphadenopathy - Respiratory Exam Respiratory Exam: Clear to Ausculation Bilateral, NORMAL BREATHING PATTERN - Cardiovascular Exam Cardiovascular Exam: REGULAR RHYTHM, +S1, +S2. absent: Murmur - GI/Abdominal Exam GI & Abdominal Exam: Soft, Normal Bowel Sounds. absent: Tenderness - Rectal Exam Rectal Exam: Deferred - Extremities Exam Extremities Exam: Full ROM, Normal Capillary Refill, Normal Inspection. absent : Joint Swelling, Pedal Edema - Back Exam Back Exam: NORMAL INSPECTION Assessment and Plan (1) Bradycardia Status: Acute (2) CVA (cerebral vascular accident) Status: Acute (3) TIA (transient ischemic attack) Status: Acute (4) Atrial fibrillation Status: Acute (5) Elevated CK Status: Acute (6) Knee pain, left Status: Acute (7) Medicine refill Status: Acute (8) NSVT (nonsustained ventricular tachycardia) Status: Acute (9) Preop cardiovascular exam Status: Acute (10) Rhabdomyolysis Status: Acute (11) CKD (chronic kidney disease) Status: Chronic (12) HTN (hypertension) Status: Chronic (13) HTN (hypertension), malignant Status: Chronic (14) Critical lower limb ischemia Status: Resolved (15) Peripheral arterial occlusive disease Status: Resolved (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 Patient better. Bradycardia was noted on telemetry. Continue aspirin and clopidogrel. Continue antihypertensive medications. Continue warfarin. Continue supportive care.
--- NOTE | 2017-04-27 01:09 | CP.PCM.PN ---
Subjective - Date & Time of Evaluation Date of Evaluation: 04/26/17 Time of Evaluation: 01:06 - Subjective Subjective: status quo bradycardic yesterday Objective - Vital Signs/Intake and Output Vital Signs (last 24 hours): Temp Pulse Resp BP Pulse Ox 98.5 F 54 L 20 121/54 L 98 04/26/17 23:25 04/26/17 23:25 04/26/17 23:25 04/26/17 23:25 04/26/17 23:25 Intake and Output: 04/26/17 04/27/17 18:59 06:59 Intake Total 730 Output Total 850 Balance -120 - Medications Medications: Current Medications Amiodarone HCl (Cordarone) 200 mg PO BID [facility] Last Admin: 04/26/17 17:54 Dose: Not Given Aspirin (Ecotrin) 81 mg PO DAILY [facility] Last Admin: 04/26/17 10:43 Dose: 81 mg Chlorthalidone (Hygroton) 25 mg PO DAILY [facility] Last Admin: 04/26/17 10:43 Dose: 25 mg Clopidogrel Bisulfate (Plavix) 75 mg PO DAILY [facility] Last Admin: 04/26/17 10:43 Dose: 75 mg Diltiazem HCl (Cardizem Cd) 360 mg PO DAILY [facility] Last Admin: 04/26/17 10:43 Dose: 360 mg Finasteride (Proscar) 5 mg PO DAILY [facility] Last Admin: 04/26/17 10:46 Dose: 5 mg Gabapentin (Neurontin) 300 mg PO TID [facility] Last Admin: 04/26/17 17:51 Dose: 300 mg Dextrose/Sodium Chloride (Dextrose 5%/0.45% Ns 1000 Ml) 1,000 mls @ 70 mls/hr IV .[id number] [facility] Last Admin: 04/26/17 17:50 Dose: 70 mls/hr Levetiracetam (Keppra) 500 mg PO BID [facility] Last Admin: 04/26/17 17:51 Dose: 500 mg Losartan Potassium (Cozaar) 25 mg PO DAILY [facility] Last Admin: 04/26/17 10:44 Dose: 25 mg Oxycodone HCl (Oxycodone Immediate Release Tab) 5 mg PO Q6 PRN PRN Reason: Pain, severe (8-10) Rosuvastatin Calcium (Crestor) 10 mg PO HS [facility] Last Admin: 04/26/17 22:09 Dose: 10 mg Tamsulosin HCl (Flomax) 0.4 mg PO DAILY [facility] Last Admin: 04/26/17 10:43 Dose: 0.4 mg Vitamin A (Vitamin A & D Oint Ud Foilpak) 1 ea TOP BID [facility] Last Admin: 04/26/17 17:51 Dose: 1 ea Warfarin Sodium (Coumadin) 4 mg PO 1800 [facility] Last Admin: 04/26/17 17:51 Dose: 4 mg Zolpidem Tartrate (Ambien) 5 mg PO HS [facility] Last Admin: 04/26/17 22:09 Dose: 5 mg - Labs Labs: 04/25/17 06:32 04/25/17 06:32 PT 21.2 SECONDS (9.7-12.2) H 04/25/17 06:32 INR 1.9 04/25/17 06:32 APTT 28 SECONDS (21-34) 04/24/17 01:23 - Constitutional Appears: Well - Head Exam Head Exam: ATRAUMATIC, NORMAL INSPECTION, NORMOCEPHALIC - Eye Exam Eye Exam: EOMI, Normal appearance, PERRL Pupil Exam: NORMAL ACCOMODATION, PERRL - ENT Exam ENT Exam: Mucous Membranes Moist, Normal Exam - Neck Exam Neck Exam: Full ROM, Normal Inspection. absent: Lymphadenopathy - Respiratory Exam Respiratory Exam: Clear to Ausculation Bilateral, NORMAL BREATHING PATTERN - Cardiovascular Exam Cardiovascular Exam: Irregular Rhythm, +S1, +S2, Murmur - GI/Abdominal Exam GI & Abdominal Exam: Soft, Normal Bowel Sounds. absent: Tenderness - Extremities Exam Extremities Exam: Full ROM, Normal Capillary Refill, Normal Inspection. absent : Joint Swelling, Pedal Edema - Back Exam Back Exam: NORMAL INSPECTION - Neurological Exam Neurological Exam: Altered, Awake - Psychiatric Exam Psychiatric exam: Normal Affect, Normal Mood - Skin Skin Exam: Dry, Intact, Normal Color, Warm Assessment and Plan (1) CVA (cerebral vascular accident) Assessment & Plan: plan for YVES etiology ? thromboembolic Status: Acute (2) Atrial fibrillation Assessment & Plan: cont OAC + plavix Status: Acute (3) NSVT (nonsustained ventricular tachycardia) Status: Acute (4) HTN (hypertension) Status: Chronic (5) Peripheral arterial occlusive disease Assessment & Plan: cont current meds Status: Resolved
--- NOTE | 2017-04-27 09:52 | CP.PCM.PN ---
Subjective - Date & Time of Evaluation Date of Evaluation: 04/27/17 Time of Evaluation: 14:00 - Subjective Subjective: HR still dropping down speech garbled Objective - Vital Signs/Intake and Output Vital Signs (last 24 hours): Temp Pulse Resp BP Pulse Ox 97.8 F 52 L 18 128/66 100 04/27/17 08:14 04/27/17 08:14 04/27/17 08:14 04/27/17 08:14 04/27/17 08:14 Intake and Output: 04/27/17 04/27/17 06:59 18:59 Intake Total 1290 Output Total 1650 Balance -360 - Medications Medications: Current Medications Amiodarone HCl (Cordarone) 200 mg PO BID [facility] Last Admin: 04/26/17 17:54 Dose: Not Given Aspirin (Ecotrin) 81 mg PO DAILY [facility] Last Admin: 04/26/17 10:43 Dose: 81 mg Chlorthalidone (Hygroton) 25 mg PO DAILY [facility] Last Admin: 04/26/17 10:43 Dose: 25 mg Clopidogrel Bisulfate (Plavix) 75 mg PO DAILY [facility] Last Admin: 04/26/17 10:43 Dose: 75 mg Diltiazem HCl (Cardizem Cd) 360 mg PO DAILY [facility] Last Admin: 04/26/17 10:43 Dose: 360 mg Finasteride (Proscar) 5 mg PO DAILY [facility] Last Admin: 04/26/17 10:46 Dose: 5 mg Gabapentin (Neurontin) 300 mg PO TID [facility] Last Admin: 04/26/17 17:51 Dose: 300 mg Dextrose/Sodium Chloride (Dextrose 5%/0.45% Ns 1000 Ml) 1,000 mls @ 70 mls/hr IV .[id number] [facility] Last Admin: 04/26/17 17:50 Dose: 70 mls/hr Levetiracetam (Keppra) 500 mg PO BID [facility] Last Admin: 04/26/17 17:51 Dose: 500 mg Losartan Potassium (Cozaar) 25 mg PO DAILY [facility] Last Admin: 04/26/17 10:44 Dose: 25 mg Oxycodone HCl (Oxycodone Immediate Release Tab) 5 mg PO Q6 PRN PRN Reason: Pain, severe (8-10) Rosuvastatin Calcium (Crestor) 10 mg PO HS [facility] Last Admin: 04/26/17 22:09 Dose: 10 mg Tamsulosin HCl (Flomax) 0.4 mg PO DAILY [facility] Last Admin: 04/26/17 10:43 Dose: 0.4 mg Vitamin A (Vitamin A & D Oint Ud Foilpak) 1 ea TOP BID [facility] Last Admin: 04/26/17 17:51 Dose: 1 ea Warfarin Sodium (Coumadin) 4 mg PO 1800 [facility] Last Admin: 04/26/17 17:51 Dose: 4 mg Zolpidem Tartrate (Ambien) 5 mg PO HS [facility] Last Admin: 04/26/17 22:09 Dose: 5 mg - Labs Labs: 04/25/17 06:32 04/25/17 06:32 PT 21.2 SECONDS (9.7-12.2) H 04/25/17 06:32 INR 1.9 04/25/17 06:32 APTT 28 SECONDS (21-34) 04/24/17 01:23 - Constitutional Appears: Well - Head Exam Head Exam: ATRAUMATIC, NORMAL INSPECTION, NORMOCEPHALIC - Eye Exam Eye Exam: EOMI, Normal appearance, PERRL Pupil Exam: NORMAL ACCOMODATION, PERRL - ENT Exam ENT Exam: Mucous Membranes Moist, Normal Exam - Neck Exam Neck Exam: Full ROM, Normal Inspection. absent: Lymphadenopathy - Respiratory Exam Respiratory Exam: Clear to Ausculation Bilateral, NORMAL BREATHING PATTERN - Cardiovascular Exam Cardiovascular Exam: Irregular Rhythm, +S1, +S2, Murmur - GI/Abdominal Exam GI & Abdominal Exam: Soft, Normal Bowel Sounds. absent: Tenderness - Extremities Exam Extremities Exam: Full ROM, Normal Capillary Refill, Normal Inspection. absent : Joint Swelling, Pedal Edema - Back Exam Back Exam: NORMAL INSPECTION - Neurological Exam Neurological Exam: Alert, Awake, CN II-XII Intact, Normal Gait, Oriented x3 - Psychiatric Exam Psychiatric exam: Normal Affect, Normal Mood - Skin Skin Exam: Dry, Intact, Normal Color, Warm Assessment and Plan (1) Bradycardia Assessment & Plan: decrease cardizem , cont amiodarone ( decrease dose ) Status: Acute (2) Atrial fibrillation Assessment & Plan: cont coumadin Status: Acute (3) CVA (cerebral vascular accident) Assessment & Plan: consider YVES Status: Acute (4) NSVT (nonsustained ventricular tachycardia) Status: Acute (5) HTN (hypertension) Status: Chronic (6) Peripheral arterial occlusive disease Status: Resolved
[2017-04-27] MEDS: Vitamins A & D Oint UD Foilpak TOP SCH ×2 (10:37→18:33)
[2017-04-27] MEDS: diltiaZEM 180 mg/24 Hours CD Cap PO SCH (10:38)
--- NOTE | 2017-04-27 10:55 | CP.PCM.PN ---
<Ignacio Mccann - Last Filed: 04/27/17 14:45> Subjective - Date & Time of Evaluation Date of Evaluation: 04/27/17 Time of Evaluation: 07:20 - Subjective Subjective: PGY2 Resident - Medicine Progress Note Patient seen and examined with Daughter at bedside. No acute distress. No overnight events. Patient with R facial droop and slurred speech s/p recent CVA seen on MRI. 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 Denies fever, chills, headache, chest pain, palpitations, dyspnea, cough, abdominal pain, nausea/vomiting, diarrhea/ constipation, dysuria, urinary frequency, change in urinary stream, or any additional acute complaints. Objective - Vital Signs/Intake and Output Vital Signs (last 24 hours): Temp Pulse Resp BP Pulse Ox 97.8 F 52 L 18 128/66 100 04/27/17 08:14 04/27/17 08:14 04/27/17 08:14 04/27/17 08:14 04/27/17 08:14 Intake and Output: 04/27/17 04/27/17 06:59 18:59 Intake Total 1290 Output Total 1650 Balance -360 - Medications Medications: Current Medications Amiodarone HCl (Cordarone) 200 mg PO BID [facility] Last Admin: 04/27/17 10:37 Dose: 200 mg Aspirin (Ecotrin) 81 mg PO DAILY [facility] Last Admin: 04/27/17 10:37 Dose: 81 mg Chlorthalidone (Hygroton) 25 mg PO DAILY [facility] Last Admin: 04/27/17 10:41 Dose: 25 mg Clopidogrel Bisulfate (Plavix) 75 mg PO DAILY [facility] Last Admin: 04/27/17 10:37 Dose: 75 mg Diltiazem HCl (Cardizem Cd) 360 mg PO DAILY [facility] Last Admin: 04/27/17 10:38 Dose: 360 mg Finasteride (Proscar) 5 mg PO DAILY [facility] Last Admin: 04/27/17 10:41 Dose: 5 mg Gabapentin (Neurontin) 300 mg PO TID [facility] Last Admin: 04/27/17 10:37 Dose: 300 mg Dextrose/Sodium Chloride (Dextrose 5%/0.45% Ns 1000 Ml) 1,000 mls @ 70 mls/hr IV .[id number] [facility] Last Admin: 04/26/17 17:50 Dose: 70 mls/hr Levetiracetam (Keppra) 500 mg PO BID [facility] Last Admin: 04/27/17 10:37 Dose: 500 mg Losartan Potassium (Cozaar) 25 mg PO DAILY [facility] Last Admin: 04/27/17 10:37 Dose: 25 mg Oxycodone HCl (Oxycodone Immediate Release Tab) 5 mg PO Q6 PRN PRN Reason: Pain, severe (8-10) Rosuvastatin Calcium (Crestor) 10 mg PO HS [facility] Last Admin: 04/26/17 22:09 Dose: 10 mg Tamsulosin HCl (Flomax) 0.4 mg PO DAILY [facility] Last Admin: 04/27/17 10:37 Dose: 0.4 mg Vitamin A (Vitamin A & D Oint Ud Foilpak) 1 ea TOP BID [facility] Last Admin: 04/27/17 10:37 Dose: 1 ea Warfarin Sodium (Coumadin) 4 mg PO 1800 [facility] Last Admin: 04/26/17 17:51 Dose: 4 mg Zolpidem Tartrate (Ambien) 5 mg PO HS [facility] Last Admin: 04/26/17 22:09 Dose: 5 mg - Labs Labs: 04/25/17 06:32 04/25/17 06:32 PT 21.2 SECONDS (9.7-12.2) H 04/25/17 06:32 INR 1.9 04/25/17 06:32 APTT 28 SECONDS (21-34) 04/24/17 01:23 - Additional Findings Additional findings: - Constitutional Appears: Non-toxic, No Acute Distress - Head Exam Head Exam: ATRAUMATIC, NORMAL INSPECTION, NORMOCEPHALIC - Eye Exam Eye Exam: EOMI - ENT Exam ENT Exam: Mucous Membranes Moist - Neck Exam Neck Exam: Full ROM, Normal Inspection - Respiratory Exam Respiratory Exam: NORMAL BREATHING PATTERN. absent: Respiratory Distress - Cardiovascular Exam Cardiovascular Exam: Regular Rate, +S1, +S2 - GI/Abdominal Exam GI & Abdominal Exam: Soft, Normal Bowel Sounds. absent: Tenderness - Extremities Exam Extremities Exam: Full ROM, Normal Inspection -bilateral LE BKA. 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 Stroke -IV hydration -am labs -Brain MRI - acute infarct, posterior L coronal radiata -carotid dopplers negative -EEG pending -neurology consult. Dr. Krish. seth appreciated. -cardio consult. Dr. Benz. seth appreciated. -asa 81 mg po daily -plavix 75 mg daily -swallow eval pending -PT/OT ordered -oxycodone for pain prn severe pain 2. hx of HTN -continue losartan daily -continue chlorthalidone daily -continue cardizem daily 3. Atrial Fibrillation 04/27: plan for possible YVES -Continue Coumadin 4mg PO qD -cardio consult. Dr. Benz. seth appreciated. 4. Insomnia -continue ambien daily PO HS 5. Electrolyte imbalance -Hypokalemia, K 2.9 -> KCl 10meq IVPB Q4h x3 bags 6. GI/DVT -protonix daily -SCDs -Diet: pureed - f/u stool occult blood (daughter reports seeing blood in stool). Discharge Planning: Recommendation is for rehab. Daughter is refusing and wants pt to return home. Case discussed with attending. All medical management as per Dr. Inocencio Vines <Janet Vines - Last Filed: 05/04/17 15:51> Objective - Vital Signs/Intake and Output Vital Signs (last 24 hours): Temp Pulse Resp BP Pulse Ox 98.4 F 56 L 18 126/67 100 05/04/17 07:50 05/04/17 08:00 05/04/17 07:50 05/04/17 07:50 05/04/17 07:50 Intake and Output: 05/04/17 05/04/17 06:59 18:59 Intake Total 320 Output Total 1000 Balance -680 - Medications Medications: Current Medications Amiodarone HCl (Cordarone) 200 mg PO DAILY [facility] Last Admin: 05/04/17 09:27 Dose: 200 mg Aspirin (Ecotrin) 81 mg PO DAILY [facility] Last Admin: 05/03/17 09:12 Dose: 81 mg Chlorthalidone (Hygroton) 25 mg PO DAILY [facility] Last Admin: 05/04/17 09:27 Dose: 25 mg Clopidogrel Bisulfate (Plavix) 75 mg PO DAILY [facility] Last Admin: 05/03/17 09:11 Dose: 75 mg Diltiazem HCl (Cardizem Cd) 120 mg PO DAILY [facility] Last Admin: 05/04/17 09:27 Dose: 120 mg Enoxaparin Sodium (Lovenox) 70 mg SC Q12H [facility] Last Admin: 05/03/17 21:17 Dose: 70 mg Finasteride (Proscar) 5 mg PO DAILY [facility] Last Admin: 05/04/17 09:27 Dose: 5 mg Gabapentin (Neurontin) 300 mg PO TID [facility] Last Admin: 05/04/17 14:38 Dose: Not Given Levetiracetam (Keppra) 500 mg PO BID [facility] Last Admin: 05/04/17 09:27 Dose: 500 mg Losartan Potassium (Cozaar) 25 mg PO DAILY [facility] Last Admin: 05/04/17 09:27 Dose: 25 mg Pantoprazole Sodium (Protonix Inj) 40 mg IVP Q12H [facility] Last Admin: 05/04/17 08:42 Dose: 40 mg Potassium Chloride (Klor-Con 10) 10 meq PO DAILY [facility] Last Admin: 05/04/17 09:27 Dose: 10 meq Potassium Chloride (Klor-Con 10) 10 meq PO BRK [facility] Last Admin: 05/04/17 08:42 Dose: 10 meq Rosuvastatin Calcium (Crestor) 10 mg PO HS [facility] Last Admin: 05/02/17 21:12 Dose: 10 mg Tamsulosin HCl (Flomax) 0.4 mg PO DAILY [facility] Last Admin: 05/04/17 09:27 Dose: 0.4 mg Vitamin A (Vitamin A & D Oint Ud Foilpak) 1 ea TOP BID [facility] Last Admin: 05/04/17 09:27 Dose: 1 ea Zolpidem Tartrate (Ambien) 5 mg PO HS [facility] Last Admin: 05/03/17 21:17 Dose: 5 mg - Labs Labs: 05/04/17 00:57 05/04/17 07:41 PT 16.7 SECONDS (9.7-12.2) H 05/04/17 07:02 INR 1.5 05/04/17 07:02 APTT 34 SECONDS (21-34) 05/04/17 07:02 Assessment and Plan (1) Bradycardia Status: Acute (2) CVA (cerebral vascular accident) Status: Acute (3) TIA (transient ischemic attack) Status: Acute (4) Atrial fibrillation Status: Acute (5) Elevated CK Status: Acute (6) Knee pain, left Status: Acute (7) Medicine refill Status: Acute (8) NSVT (nonsustained ventricular tachycardia) Status: Acute (9) Preop cardiovascular exam Status: Acute (10) Rhabdomyolysis Status: Acute (11) CKD (chronic kidney disease) Status: Chronic (12) HTN (hypertension) Status: Chronic (13) HTN (hypertension), malignant Status: Chronic Attending/Attestation - Attestation I have personally seen and examined this patient.: Yes I have fully participated in the care of the patient.: Yes I have reviewed all pertinent clinical information, including history, physical exam and plan: Yes Notes (Text): 05/04/17 15:51 Patient examined. No acute distress. Continue aspirin and clopidogrel. Continue antihypertensive medications. Continue levetiracetam. Continue warfarin. Continue supportive care.
--- NOTE | 2017-04-27 11:22 | PN ---
DATE: 04/27/2017 TIME OF EVALUATION: 7:15 a.m. NEUROLOGIC PROBLEM: New stroke with right-sided weakness with previous multiple strokes. PHYSICAL EXAMINATION: VITAL SIGNS: Blood pressure 121/55, mean arterial pressure 76, respiratory rate 18, pulse rate 58, temperature 98.5. NEUROLOGIC: The patient is arousable on tactile stimuli. Communicable speech is intact. Moves both upper extremities against the gravity. The patient's examination otherwise is normal. WORKUP: EEG showed mild slow activities without any paroxysmal activities or focal slowing. MRI of the brain showed acute stroke process over left sanchez radiata. Otherwise, the patient does have encephalomalacia in the right MCA territory and significant periventricular ischemic changes. From the history, the patient was on Coumadin; however, the patient is not getting Coumadin at present. From neurological point of view, the patient should continue aspirin and Plavix. Cardiology consultation should be called in to see the cardiac status whether he needs longtime anticoagulation or not. However, the patient's stroke is a small vessel disease and this current medication is enough for him to cover stroke prophylaxis. Continue Keppra for his seizures. The patient will be followed up closely with you. Clark Fitch MD
[2017-04-27 11:25] LABS: BASO % 0.5 % (0.0-2.0); EOS # 0.1 K/uL (0.0-0.7); HEMATOCRIT 32.4 % (35.0-51.0); LYMPH # 1.2 K/uL (1.0-4.3); LYMPH % 24.5 % (20.0-40.0); MEAN CELL VOLUME 75.8 fL (80.0-94.0); MEAN CORPUSCULAR HEMOGLOBIN 25.4 pg (27.0-31.0); MEAN CORPUSCULAR HGB CONC 33.4 g/dL (33.0-37.0); MEAN PLATELET VOLUME 8.2 fL (7.2-11.7); MONO # 0.4 K/uL (0.0-0.8); MONO % 8.3 % (0.0-10.0); NRBC % 0.1 % (0.0-2.0); RED CELL DISTRIBUTION WIDTH 15.9 % (11.5-14.5); WHITE BLOOD COUNT 4.9 K/uL (4.8-10.8)
[2017-04-27 12:00] LABS: ALB/GLOB RATIO 1.1 (1.0-2.1); ALKALINE PHOSPHATASE 75 U/L (38-126); ALT/SGPT 34 U/L (21-72); AST/SGOT 20 U/L (17-59); BILIRUBIN,TOTAL 0.7 mg/dL (0.2-1.3); BLOOD UREA NITROGEN 12 mg/dL (9-20); CALCIUM 7.8 mg/dl (8.6-10.4); CARBON DIOXIDE 27 mmol/L (22-30); CHLORIDE 100 mmol/L (98-107); GFR AFRICAN-AMERICAN > 60; GLUCOSE,RANDOM 73 mg/dL (75-110); MAGNESIUM 1.7 mg/dL (1.6-2.3); PHOSPHOROUS 3.5 mg/dL (2.5-4.5); POTASSIUM 2.9 mmol/L (3.6-5.2); SODIUM 135 mmol/L (132-148); TOTAL PROTEIN 5.5 g/dL (6.3-8.3)
[2017-04-27] MEDS: Dextrose 5%/0.45% NS 1,000 ML IV SCH (13:38)
[2017-04-27] MEDS: Magnesium Sulfate 1 gm in D5W 1 GM/100 ML BAG IVPB SCH ×2 (15:20→16:50)
--- NOTE | 2017-04-27 18:55 | CP.PCM.PN ---
Subjective - Date & Time of Evaluation Date of Evaluation: 04/27/17 Time of Evaluation: 11:00 - Subjective Subjective: clinically same Objective - Vital Signs/Intake and Output Vital Signs (last 24 hours): Temp Pulse Resp BP Pulse Ox 98.6 F 53 L 20 121/63 97 04/27/17 15:00 04/27/17 15:00 04/27/17 15:00 04/27/17 15:00 04/27/17 15:00 Intake and Output: 04/27/17 04/27/17 06:59 18:59 Intake Total 1290 Output Total 1650 Balance -360 - Medications Medications: Current Medications Amiodarone HCl (Cordarone) 200 mg PO BID [facility] Last Admin: 04/27/17 10:37 Dose: Not Given Aspirin (Ecotrin) 81 mg PO DAILY [facility] Last Admin: 04/27/17 10:37 Dose: 81 mg Chlorthalidone (Hygroton) 25 mg PO DAILY [facility] Last Admin: 04/27/17 10:41 Dose: 25 mg Clopidogrel Bisulfate (Plavix) 75 mg PO DAILY [facility] Last Admin: 04/27/17 10:37 Dose: 75 mg Diltiazem HCl (Cardizem Cd) 360 mg PO DAILY [facility] Last Admin: 04/27/17 10:38 Dose: 360 mg Finasteride (Proscar) 5 mg PO DAILY [facility] Last Admin: 04/27/17 10:41 Dose: 5 mg Gabapentin (Neurontin) 300 mg PO TID [facility] Last Admin: 04/27/17 18:33 Dose: 300 mg Dextrose/Sodium Chloride (Dextrose 5%/0.45% Ns 1000 Ml) 1,000 mls @ 70 mls/hr IV .[id number] [facility] Last Admin: 04/27/17 13:38 Dose: Not Given Potassium Chloride (Potassium Chloride 10 Meq/100 Ml) 10 meq in 100 mls @ 100 mls/hr IVPB Q4H [facility] Stop: 04/28/17 00:44 Last Admin: 04/27/17 16:50 Dose: 100 mls/hr Levetiracetam (Keppra) 500 mg PO BID [facility] Last Admin: 04/27/17 18:33 Dose: 500 mg Losartan Potassium (Cozaar) 25 mg PO DAILY [facility] Last Admin: 04/27/17 10:37 Dose: 25 mg Oxycodone HCl (Oxycodone Immediate Release Tab) 5 mg PO Q6 PRN PRN Reason: Pain, severe (8-10) Rosuvastatin Calcium (Crestor) 10 mg PO HS [facility] Last Admin: 04/26/17 22:09 Dose: 10 mg Tamsulosin HCl (Flomax) 0.4 mg PO DAILY [facility] Last Admin: 04/27/17 10:37 Dose: 0.4 mg Vitamin A (Vitamin A & D Oint Ud Foilpak) 1 ea TOP BID [facility] Last Admin: 04/27/17 18:33 Dose: 1 ea Warfarin Sodium (Coumadin) 4 mg PO 1800 [facility] Last Admin: 04/27/17 18:33 Dose: 4 mg Zolpidem Tartrate (Ambien) 5 mg PO HS [facility] Last Admin: 04/26/17 22:09 Dose: 5 mg - Labs Labs: 04/27/17 11:17 04/27/17 11:17 PT 21.2 SECONDS (9.7-12.2) H 04/25/17 06:32 INR 1.9 04/25/17 06:32 APTT 28 SECONDS (21-34) 04/24/17 01:23 - Constitutional Appears: Well - Head Exam Head Exam: ATRAUMATIC, NORMAL INSPECTION, NORMOCEPHALIC - Eye Exam Eye Exam: EOMI, Normal appearance, PERRL Pupil Exam: NORMAL ACCOMODATION, PERRL - ENT Exam ENT Exam: Mucous Membranes Moist, Normal Exam - Neck Exam Neck Exam: Full ROM, Normal Inspection. absent: Lymphadenopathy - Respiratory Exam Respiratory Exam: Clear to Ausculation Bilateral, NORMAL BREATHING PATTERN - Cardiovascular Exam Cardiovascular Exam: REGULAR RHYTHM, +S1, +S2. absent: Murmur - GI/Abdominal Exam GI & Abdominal Exam: Soft, Normal Bowel Sounds. absent: Tenderness - Rectal Exam Rectal Exam: Deferred Assessment and Plan (1) Bradycardia Status: Acute (2) CVA (cerebral vascular accident) Status: Acute (3) TIA (transient ischemic attack) Status: Acute (4) Atrial fibrillation Status: Acute (5) Elevated CK Status: Acute (6) Knee pain, left Status: Acute (7) Medicine refill Status: Acute (8) NSVT (nonsustained ventricular tachycardia) Status: Acute (9) Preop cardiovascular exam Status: Acute (10) Rhabdomyolysis Status: Acute (11) CKD (chronic kidney disease) Status: Chronic (12) HTN (hypertension) Status: Chronic (13) HTN (hypertension), malignant Status: Chronic (14) Critical lower limb ischemia Status: Resolved (15) Peripheral arterial occlusive disease Status: Resolved (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 Patient better. Continue aspirin and clopidogrel. Continue antihypertensive medications. Continue levetiracetam. Continue warfarin. Continue supportive care.
[2017-04-27] MEDS ORDERED: Potassium Chloride 20 mEq ER Tab PO STA (20:48)
[2017-04-27] MEDS ORDERED: Potassium Chloride 20 mEq ER Tab PO ONE (23:52)
[2017-04-28] MEDS: Dextrose 5%/0.45% NS 1,000 ML IV SCH ×2 (04:18→23:55)
[2017-04-28 06:52] LABS: BASO % 0.4 % (0.0-2.0); EOS # 0.2 K/uL (0.0-0.7); EOS % 3.8 % (0.0-4.0); HEMATOCRIT 31.7 % (35.0-51.0); LYMPH % 38.1 % (20.0-40.0); MEAN CELL VOLUME 74.8 fL (80.0-94.0); MEAN CORPUSCULAR HGB CONC 33.4 g/dL (33.0-37.0); MEAN PLATELET VOLUME 7.9 fL (7.2-11.7); MONO # 0.4 K/uL (0.0-0.8); MONO % 7.2 % (0.0-10.0); RED CELL DISTRIBUTION WIDTH 16.1 % (11.5-14.5); WHITE BLOOD COUNT 5.3 K/uL (4.8-10.8)
[2017-04-28 07:01] LABS: ALB/GLOB RATIO 1.1 (1.0-2.1); ALKALINE PHOSPHATASE 75 U/L (38-126); ALT/SGPT 33 U/L (21-72); AST/SGOT 18 U/L (17-59); BILIRUBIN,TOTAL 0.6 mg/dL (0.2-1.3); BLOOD UREA NITROGEN 11 mg/dL (9-20); CALCIUM 7.5 mg/dl (8.6-10.4); CARBON DIOXIDE 25 mmol/L (22-30); CHLORIDE 100 mmol/L (98-107); GFR AFRICAN-AMERICAN > 60; GLUCOSE,RANDOM 80 mg/dL (75-110); PHOSPHOROUS 3.9 mg/dL (2.5-4.5); POTASSIUM 3.1 mmol/L (3.6-5.2); SODIUM 133 mmol/L (132-148); TOTAL PROTEIN 5.5 g/dL (6.3-8.3)
[2017-04-28] MEDS: Potassium Chl 40 mEq in D5-1/2 1,000 ML IV SCH (09:06)
[2017-04-28] MEDS: Vitamins A & D Oint UD Foilpak TOP SCH ×2 (09:08→18:47)
--- NOTE | 2017-04-28 09:36 | CP.PCM.PN ---
<Mikael Diaz - Last Filed: 04/28/17 12:50> Subjective - Date & Time of Evaluation Date of Evaluation: 04/28/17 Time of Evaluation: 09:38 - Subjective Subjective: PGY2 Note for Dr. Inocencio Vines; all management as per Dr. Inocencio Vines Patient seen and examined at bedside this AM; denies any fevers/chills, CARREON, CP, SOb, abdominal pain, N/V/D, dysuria/freq/urg, or lower extremity pain/swelling. States he has a cough, which he has had for 2 months now, non productive, and is otherwise comfortable. The patient would benefit from both YVES and colonoscopy, had positive FOBT; hgb stable; vital signs stable; no sonny blood per rectum and is stable. Objective - Vital Signs/Intake and Output Vital Signs (last 24 hours): Temp Pulse Resp BP Pulse Ox 97.5 F L 54 L 20 103/53 L 100 04/27/17 23:25 04/28/17 00:00 04/27/17 23:25 04/27/17 23:25 04/27/17 23:25 Intake and Output: 04/28/17 04/28/17 06:59 18:59 Intake Total 1740 Output Total 1100 Balance 640 - Medications Medications: Current Medications Amiodarone HCl (Cordarone) 200 mg PO DAILY [facility] Last Admin: 04/28/17 09:11 Dose: 200 mg Aspirin (Ecotrin) 81 mg PO DAILY [facility] Last Admin: 04/28/17 09:08 Dose: 81 mg Chlorthalidone (Hygroton) 25 mg PO DAILY [facility] Last Admin: 04/28/17 09:08 Dose: 25 mg Clopidogrel Bisulfate (Plavix) 75 mg PO DAILY [facility] Last Admin: 04/28/17 09:08 Dose: 75 mg Diltiazem HCl (Cardizem Cd) 240 mg PO DAILY [facility] Last Admin: 04/28/17 09:08 Dose: 240 mg Finasteride (Proscar) 5 mg PO DAILY [facility] Last Admin: 04/28/17 09:08 Dose: 5 mg Gabapentin (Neurontin) 300 mg PO TID [facility] Last Admin: 04/28/17 09:08 Dose: 300 mg Dextrose/Sodium Chloride (Dextrose 5%/0.45% Ns 1000 Ml) 1,000 mls @ 70 mls/hr IV .[id number] [facility] Last Admin: 04/28/17 04:18 Dose: Not Given Potassium Chloride/Dextrose/Sod Cl (Potassium Chl 40 Meq In D5-1/2ns) 1,000 mls @ 40 mls/hr IV .Q24H [facility] Last Admin: 04/28/17 09:06 Dose: 40 mls/hr Levetiracetam (Keppra) 500 mg PO BID [facility] Last Admin: 04/28/17 09:08 Dose: 500 mg Losartan Potassium (Cozaar) 25 mg PO DAILY [facility] Last Admin: 04/28/17 09:08 Dose: 25 mg Oxycodone HCl (Oxycodone Immediate Release Tab) 5 mg PO Q6 PRN PRN Reason: Pain, severe (8-10) Pantoprazole Sodium (Protonix Inj) 40 mg IVP Q12H [facility] Last Admin: 04/28/17 09:08 Dose: 40 mg Potassium Chloride (K-Dur 20 Meq Er Tab) 40 meq PO Q4 [facility] Stop: 04/28/17 16:01 Rosuvastatin Calcium (Crestor) 10 mg PO HS [facility] Last Admin: 04/27/17 22:00 Dose: 10 mg Tamsulosin HCl (Flomax) 0.4 mg PO DAILY [facility] Last Admin: 04/28/17 09:08 Dose: 0.4 mg Vitamin A (Vitamin A & D Oint Ud Foilpak) 1 ea TOP BID [facility] Last Admin: 04/28/17 09:08 Dose: 1 ea Warfarin Sodium (Coumadin) 4 mg PO 1800 [facility] Last Admin: 04/27/17 18:33 Dose: 4 mg Zolpidem Tartrate (Ambien) 5 mg PO HS [facility] Last Admin: 04/27/17 22:01 Dose: 5 mg - Labs Labs: 04/28/17 06:36 04/28/17 06:36 PT 22.9 SECONDS (9.7-12.2) H 04/28/17 06:36 INR 2.0 04/28/17 06:36 APTT 29 SECONDS (21-34) 04/28/17 06:36 - Constitutional Appears: Non-toxic - Head Exam Head Exam: ATRAUMATIC Additional comments: facial droop on the right side, slurred speech, but intelligable - Eye Exam Eye Exam: absent: EOMI (deviation of right eye to right) - ENT Exam ENT Exam: Mucous Membranes Moist - Neck Exam Neck Exam: Full ROM. absent: Lymphadenopathy - Respiratory Exam Respiratory Exam: Clear to Ausculation Bilateral, NORMAL BREATHING PATTERN. absent: Rales, Rhonchi, Wheezes - Cardiovascular Exam Cardiovascular Exam: REGULAR RHYTHM, +S1, +S2 - GI/Abdominal Exam GI & Abdominal Exam: Soft, Normal Bowel Sounds - Extremities Exam Extremities Exam: Full ROM. absent: Calf Tenderness - Back Exam Back Exam: NORMAL INSPECTION. 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 Stroke; acute and stable at this point -IV hydration -Brain MRI - acute infarct, posterior L coronal radiata -carotid dopplers negative -neurology consult. Dr. Fitch. dorinda appreciated. -cardio consult. Dr. Feng. dorinda appreciated. -pureed diet as per swallow eval -asa 81 mg po daily -plavix 75 mg daily -PT/OT ordered; patient will need extensive rehab but daughter wants to bring patient home instead of alf facility -oxycodone for pain prn severe pain 2. hx of HTN -continue losartan daily -continue chlorthalidone daily -continue cardizem daily 3. Atrial Fibrillation 04/27: plan for possible YVES; however no indication from notes that patient will be receiving YVES -cardiology currently has no plan to take patient for YVES but will benefit from this before leaving for alf facility -Continue Coumadin 4mg PO qD; patient is therapeutic w/ INR of 2.0 -cardio consult. Dr. Brown. dorinda appreciated. 4. Insomnia -continue ambien daily PO HS 5. Electrolyte imbalance -Hypokalemia, 3.1 today; will replete 6. GI/DVT -protonix daily BID -SCDs -Diet: pureed - f/u stool occult blood was positive; however hgb is stable and patient is on multiple blood thinners Discharge Planning: Recommendation is for rehab and daughter is agreeing; patients family is requesting [facility] which they are amenable to -patient will also need to be fitted for prosthesis Case discussed with attending. All medical management as per Dr. Inocencio Vines <Janet Vines - Last Filed: 05/04/17 15:54> Objective - Vital Signs/Intake and Output Vital Signs (last 24 hours): Temp Pulse Resp BP Pulse Ox 98.4 F 56 L 18 126/67 100 05/04/17 07:50 05/04/17 08:00 05/04/17 07:50 05/04/17 07:50 05/04/17 07:50 Intake and Output: 05/04/17 05/04/17 06:59 18:59 Intake Total 320 Output Total 1000 Balance -680 - Medications Medications: Current Medications Amiodarone HCl (Cordarone) 200 mg PO DAILY [facility] Last Admin: 05/04/17 09:27 Dose: 200 mg Aspirin (Ecotrin) 81 mg PO DAILY [facility] Last Admin: 05/03/17 09:12 Dose: 81 mg Chlorthalidone (Hygroton) 25 mg PO DAILY [facility] Last Admin: 05/04/17 09:27 Dose: 25 mg Clopidogrel Bisulfate (Plavix) 75 mg PO DAILY [facility] Last Admin: 05/03/17 09:11 Dose: 75 mg Diltiazem HCl (Cardizem Cd) 120 mg PO DAILY [facility] Last Admin: 05/04/17 09:27 Dose: 120 mg Enoxaparin Sodium (Lovenox) 70 mg SC Q12H [facility] Last Admin: 05/03/17 21:17 Dose: 70 mg Finasteride (Proscar) 5 mg PO DAILY [facility] Last Admin: 05/04/17 09:27 Dose: 5 mg Gabapentin (Neurontin) 300 mg PO TID [facility] Last Admin: 05/04/17 14:38 Dose: Not Given Levetiracetam (Keppra) 500 mg PO BID [facility] Last Admin: 05/04/17 09:27 Dose: 500 mg Losartan Potassium (Cozaar) 25 mg PO DAILY [facility] Last Admin: 05/04/17 09:27 Dose: 25 mg Pantoprazole Sodium (Protonix Inj) 40 mg IVP Q12H [facility] Last Admin: 05/04/17 08:42 Dose: 40 mg Potassium Chloride (Klor-Con 10) 10 meq PO DAILY [facility] Last Admin: 05/04/17 09:27 Dose: 10 meq Potassium Chloride (Klor-Con 10) 10 meq PO BRK [facility] Last Admin: 05/04/17 08:42 Dose: 10 meq Rosuvastatin Calcium (Crestor) 10 mg PO HS [facility] Last Admin: 05/02/17 21:12 Dose: 10 mg Tamsulosin HCl (Flomax) 0.4 mg PO DAILY [facility] Last Admin: 05/04/17 09:27 Dose: 0.4 mg Vitamin A (Vitamin A & D Oint Ud Foilpak) 1 ea TOP BID [facility] Last Admin: 05/04/17 09:27 Dose: 1 ea Zolpidem Tartrate (Ambien) 5 mg PO HS [facility] Last Admin: 05/03/17 21:17 Dose: 5 mg - Labs Labs: 05/04/17 00:57 05/04/17 07:41 PT 16.7 SECONDS (9.7-12.2) H 05/04/17 07:02 INR 1.5 05/04/17 07:02 APTT 34 SECONDS (21-34) 05/04/17 07:02 Assessment and Plan (1) Bradycardia Status: Acute (2) CVA (cerebral vascular accident) Status: Acute (3) TIA (transient ischemic attack) Status: Acute (4) Atrial fibrillation Status: Acute (5) Elevated CK Status: Acute (6) Knee pain, left Status: Acute (7) Medicine refill Status: Acute (8) NSVT (nonsustained ventricular tachycardia) Status: Acute (9) Preop cardiovascular exam Status: Acute (10) Rhabdomyolysis Status: Acute (11) CKD (chronic kidney disease) Status: Chronic (12) HTN (hypertension) Status: Chronic (13) HTN (hypertension), malignant Status: Chronic Attending/Attestation - Attestation I have personally seen and examined this patient.: Yes I have fully participated in the care of the patient.: Yes I have reviewed all pertinent clinical information, including history, physical exam and plan: Yes Notes (Text): Patient examined. Patient better. Continue aspirin and clopidogrel. Continue antihypertensive medications. Continue levetiracetam. Continue warfarin. Continue supportive care.
[2017-04-28] MEDS ORDERED: diltiaZEM 240 mg/24 Hours CD Cap PO SCH (10:00)
--- NOTE | 2017-04-28 10:11 | EEG ---
DATE: 04/24/2017 This is a 16-channel electroencephalogram of awake and drowsy adult. During the study, photic stimulation was performed. Hyperventilation was not performed. The resting electroencephalogram consists of 30 to 40 microvolts, diffuse 7 to 8 Hz theta mixed with alpha activity seen at parietal and occipital leads. Anteriorly, fast activity superimposed with 2 to 3 Hz delta activities seen. The photic stimulation did not evoke driving response noted at 2-20 Hz. IMPRESSION: This is a normal electroencephalogram of awake and drowsy adult. During the study, neither electroencephalographic, paroxysmal activities nor focal slowing noted. Clark Fitch MD
[2017-04-28] MEDS: Potassium Chloride 20 mEq ER Tab PO SCH ×2 (12:45→16:26)
--- NOTE | 2017-04-28 17:48 | CP.PCM.PN ---
Subjective - Date & Time of Evaluation Date of Evaluation: 04/28/17 Time of Evaluation: 10:00 - Subjective Subjective: clinically same Objective - Vital Signs/Intake and Output Vital Signs (last 24 hours): Temp Pulse Resp BP Pulse Ox 97.8 F 53 L 20 116/54 L 100 04/28/17 15:30 04/28/17 15:30 04/28/17 15:30 04/28/17 15:30 04/28/17 15:30 Intake and Output: 04/28/17 04/28/17 06:59 18:59 Intake Total 1740 480 Output Total 1100 400 Balance 640 80 - Medications Medications: Current Medications Amiodarone HCl (Cordarone) 200 mg PO DAILY [facility] Last Admin: 04/28/17 09:11 Dose: 200 mg Aspirin (Ecotrin) 81 mg PO DAILY [facility] Last Admin: 04/28/17 09:08 Dose: 81 mg Chlorthalidone (Hygroton) 25 mg PO DAILY [facility] Last Admin: 04/28/17 09:08 Dose: 25 mg Clopidogrel Bisulfate (Plavix) 75 mg PO DAILY [facility] Last Admin: 04/28/17 09:08 Dose: 75 mg Diltiazem HCl (Cardizem Cd) 240 mg PO DAILY [facility] Last Admin: 04/28/17 09:08 Dose: 240 mg Finasteride (Proscar) 5 mg PO DAILY [facility] Last Admin: 04/28/17 09:08 Dose: 5 mg Gabapentin (Neurontin) 300 mg PO TID [facility] Last Admin: 04/28/17 13:14 Dose: 300 mg Dextrose/Sodium Chloride (Dextrose 5%/0.45% Ns 1000 Ml) 1,000 mls @ 70 mls/hr IV .[id number] [facility] Last Admin: 04/28/17 04:18 Dose: Not Given Potassium Chloride/Dextrose/Sod Cl (Potassium Chl 40 Meq In D5-1/2ns) 1,000 mls @ 40 mls/hr IV .Q24H [facility] Last Admin: 04/28/17 09:06 Dose: 40 mls/hr Levetiracetam (Keppra) 500 mg PO BID [facility] Last Admin: 04/28/17 09:08 Dose: 500 mg Losartan Potassium (Cozaar) 25 mg PO DAILY [facility] Last Admin: 04/28/17 09:08 Dose: 25 mg Oxycodone HCl (Oxycodone Immediate Release Tab) 5 mg PO Q6 PRN PRN Reason: Pain, severe (8-10) Pantoprazole Sodium (Protonix Inj) 40 mg IVP Q12H [facility] Last Admin: 04/28/17 09:08 Dose: 40 mg Rosuvastatin Calcium (Crestor) 10 mg PO HS [facility] Last Admin: 04/27/17 22:00 Dose: 10 mg Tamsulosin HCl (Flomax) 0.4 mg PO DAILY [facility] Last Admin: 04/28/17 09:08 Dose: 0.4 mg Vitamin A (Vitamin A & D Oint Ud Foilpak) 1 ea TOP BID [facility] Last Admin: 04/28/17 09:08 Dose: 1 ea Warfarin Sodium (Coumadin) 4 mg PO 1800 [facility] Last Admin: 04/27/17 18:33 Dose: 4 mg Zolpidem Tartrate (Ambien) 5 mg PO HS [facility] Last Admin: 04/27/17 22:01 Dose: 5 mg - Labs Labs: 04/28/17 06:36 04/28/17 06:36 PT 22.9 SECONDS (9.7-12.2) H 04/28/17 06:36 INR 2.0 04/28/17 06:36 APTT 29 SECONDS (21-34) 04/28/17 06:36 - Constitutional Appears: Well - Head Exam Head Exam: ATRAUMATIC, NORMAL INSPECTION, NORMOCEPHALIC - Eye Exam Eye Exam: EOMI, Normal appearance, PERRL Pupil Exam: NORMAL ACCOMODATION, PERRL - ENT Exam ENT Exam: Mucous Membranes Moist, Normal Exam - Neck Exam Neck Exam: Full ROM, Normal Inspection. absent: Lymphadenopathy - Respiratory Exam Respiratory Exam: Clear to Ausculation Bilateral, NORMAL BREATHING PATTERN - Cardiovascular Exam Cardiovascular Exam: REGULAR RHYTHM, +S1, +S2. absent: Murmur - GI/Abdominal Exam GI & Abdominal Exam: Soft, Normal Bowel Sounds. absent: Tenderness - Rectal Exam Rectal Exam: Deferred - Back Exam Back Exam: NORMAL INSPECTION Assessment and Plan (1) Bradycardia Status: Acute (2) CVA (cerebral vascular accident) Status: Acute (3) TIA (transient ischemic attack) Status: Acute (4) Atrial fibrillation Status: Acute (5) Elevated CK Status: Acute (6) Knee pain, left Status: Acute (7) Medicine refill Status: Acute (8) NSVT (nonsustained ventricular tachycardia) Status: Acute (9) Preop cardiovascular exam Status: Acute (10) Rhabdomyolysis Status: Acute (11) CKD (chronic kidney disease) Status: Chronic (12) HTN (hypertension) Status: Chronic (13) HTN (hypertension), malignant Status: Chronic (14) Critical lower limb ischemia Status: Resolved (15) Peripheral arterial occlusive disease Status: Resolved (16) Popliteal artery occlusion, left Status: Resolved - Assessment and Plan (Free Text) Plan: [place] patient examined. Patient better. Continue aspirin and clopidogrel. Continue antihypertensive medications. Continue levetiracetam. Continue warfarin. Continue supportive care.
--- NOTE | 2017-04-28 18:27 | CP.PCM.PN ---
<Marquez Marie - Last Filed: 04/28/17 19:48> Subjective - Date & Time of Evaluation Date of Evaluation: 04/28/17 Time of Evaluation: 09:30 - Subjective Subjective: Progress note for Cardiology Service Patient seen and examined at bedside states that he has no complaints at the time. Patient noted to have slurred speech; words not quite intelligible, right side facial droop also noted. Denies chest pain, shortness of breath, abdominal pain, nausea, vomiting, diarrhea, weakness, dizziness. Objective - Vital Signs/Intake and Output Vital Signs (last 24 hours): Temp Pulse Resp BP Pulse Ox 97.8 F 53 L 20 116/54 L 100 04/28/17 15:30 04/28/17 15:30 04/28/17 15:30 04/28/17 15:30 04/28/17 15:30 Intake and Output: 04/28/17 04/28/17 06:59 18:59 Intake Total 1740 480 Output Total 1100 400 Balance 640 80 - Medications Medications: Current Medications Amiodarone HCl (Cordarone) 200 mg PO DAILY [facility] Last Admin: 04/28/17 09:11 Dose: 200 mg Aspirin (Ecotrin) 81 mg PO DAILY [facility] Last Admin: 04/28/17 09:08 Dose: 81 mg Chlorthalidone (Hygroton) 25 mg PO DAILY [facility] Last Admin: 04/28/17 09:08 Dose: 25 mg Clopidogrel Bisulfate (Plavix) 75 mg PO DAILY [facility] Last Admin: 04/28/17 09:08 Dose: 75 mg Diltiazem HCl (Cardizem Cd) 240 mg PO DAILY [facility] Last Admin: 04/28/17 09:08 Dose: 240 mg Finasteride (Proscar) 5 mg PO DAILY [facility] Last Admin: 04/28/17 09:08 Dose: 5 mg Gabapentin (Neurontin) 300 mg PO TID [facility] Last Admin: 04/28/17 13:14 Dose: 300 mg Dextrose/Sodium Chloride (Dextrose 5%/0.45% Ns 1000 Ml) 1,000 mls @ 70 mls/hr IV .[id number] [facility] Last Admin: 04/28/17 04:18 Dose: Not Given Potassium Chloride/Dextrose/Sod Cl (Potassium Chl 40 Meq In D5-1/2ns) 1,000 mls @ 40 mls/hr IV .Q24H [facility] Last Admin: 04/28/17 09:06 Dose: 40 mls/hr Levetiracetam (Keppra) 500 mg PO BID [facility] Last Admin: 04/28/17 09:08 Dose: 500 mg Losartan Potassium (Cozaar) 25 mg PO DAILY [facility] Last Admin: 04/28/17 09:08 Dose: 25 mg Oxycodone HCl (Oxycodone Immediate Release Tab) 5 mg PO Q6 PRN PRN Reason: Pain, severe (8-10) Pantoprazole Sodium (Protonix Inj) 40 mg IVP Q12H [facility] Last Admin: 04/28/17 09:08 Dose: 40 mg Rosuvastatin Calcium (Crestor) 10 mg PO HS [facility] Last Admin: 04/27/17 22:00 Dose: 10 mg Tamsulosin HCl (Flomax) 0.4 mg PO DAILY [facility] Last Admin: 04/28/17 09:08 Dose: 0.4 mg Vitamin A (Vitamin A & D Oint Ud Foilpak) 1 ea TOP BID [facility] Last Admin: 04/28/17 09:08 Dose: 1 ea Warfarin Sodium (Coumadin) 4 mg PO 1800 [facility] Last Admin: 04/27/17 18:33 Dose: 4 mg Zolpidem Tartrate (Ambien) 5 mg PO HS [facility] Last Admin: 04/27/17 22:01 Dose: 5 mg - Labs Labs: 04/28/17 06:36 04/28/17 06:36 PT 22.9 SECONDS (9.7-12.2) H 04/28/17 06:36 INR 2.0 04/28/17 06:36 APTT 29 SECONDS (21-34) 04/28/17 06:36 - Constitutional Appears: No Acute Distress - Head Exam Head Exam: ATRAUMATIC, NORMOCEPHALIC. absent: NORMAL INSPECTION Additional comments: right sided facial droop - Eye Exam Eye Exam: EOMI, Normal appearance - ENT Exam ENT Exam: Mucous Membranes Moist, Normal Exam - Neck Exam Neck Exam: Normal Inspection - Respiratory Exam Respiratory Exam: Clear to Ausculation Bilateral, NORMAL BREATHING PATTERN. absent: Rhonchi, Wheezes - Cardiovascular Exam Cardiovascular Exam: REGULAR RHYTHM, +S1, +S2 - GI/Abdominal Exam GI & Abdominal Exam: Soft, Normal Bowel Sounds - Extremities Exam Extremities Exam: absent: Normal Inspection Additional comments: B/L lower limb amputation - Neurological Exam Neurological Exam: Alert, Awake, Oriented x3 Additional comments: right sided facial droop slurred speech - Psychiatric Exam Psychiatric exam: Normal Affect, Normal Mood - Skin Skin Exam: Intact, Normal Color, Warm Assessment and Plan - Assessment and Plan (Free Text) Assessment: Patient is a 71 y/o male past medical history of HTN, HLD, multiple CVAs, and recent AKA b/l 2/2 PAD, presents with slurred speech and right facial droop. Plan: 1. TIA r/o cardiac etiology - Last echo 02/04/17 revealed LVEF 55-60%, aortic regurgitation, tricuspid regurgitation - Lipitor - ASA 81 mg PO 1x/day - Manage BP - Neurology c/s 2. Bradycardia - HR in 40s-50s - Will decrease dosage of cardizem - Will continue to monitor 3. Amiodarone - Amiodarone - Cardizem 4. PAD S/P Bilateral AKA - Daily Coumadin; monitor INR -Gabapentin <Luis Brown - Last Filed: 04/28/17 20:00> Objective - Vital Signs/Intake and Output Vital Signs (last 24 hours): Temp Pulse Resp BP Pulse Ox 97.8 F 53 L 20 116/54 L 100 04/28/17 15:30 04/28/17 15:30 04/28/17 15:30 04/28/17 15:30 04/28/17 15:30 Intake and Output: 04/28/17 04/29/17 18:59 06:59 Intake Total 480 Output Total 400 Balance 80 - Medications Medications: Current Medications Amiodarone HCl (Cordarone) 200 mg PO DAILY [facility] Last Admin: 04/28/17 09:11 Dose: 200 mg Aspirin (Ecotrin) 81 mg PO DAILY [facility] Last Admin: 04/28/17 09:08 Dose: 81 mg Chlorthalidone (Hygroton) 25 mg PO DAILY [facility] Last Admin: 04/28/17 09:08 Dose: 25 mg Clopidogrel Bisulfate (Plavix) 75 mg PO DAILY [facility] Last Admin: 04/28/17 09:08 Dose: 75 mg Diltiazem HCl (Cardizem Cd) 240 mg PO DAILY [facility] Last Admin: 04/28/17 09:08 Dose: 240 mg Finasteride (Proscar) 5 mg PO DAILY [facility] Last Admin: 04/28/17 09:08 Dose: 5 mg Gabapentin (Neurontin) 300 mg PO TID [facility] Last Admin: 04/28/17 18:47 Dose: 300 mg Dextrose/Sodium Chloride (Dextrose 5%/0.45% Ns 1000 Ml) 1,000 mls @ 70 mls/hr IV .[id number] [facility] Last Admin: 04/28/17 04:18 Dose: Not Given Potassium Chloride/Dextrose/Sod Cl (Potassium Chl 40 Meq In D5-1/2ns) 1,000 mls @ 40 mls/hr IV .Q24H [facility] Last Admin: 04/28/17 09:06 Dose: 40 mls/hr Levetiracetam (Keppra) 500 mg PO BID [facility] Last Admin: 04/28/17 18:47 Dose: 500 mg Losartan Potassium (Cozaar) 25 mg PO DAILY [facility] Last Admin: 04/28/17 09:08 Dose: 25 mg Oxycodone HCl (Oxycodone Immediate Release Tab) 5 mg PO Q6 PRN PRN Reason: Pain, severe (8-10) Pantoprazole Sodium (Protonix Inj) 40 mg IVP Q12H [facility] Last Admin: 04/28/17 09:08 Dose: 40 mg Rosuvastatin Calcium (Crestor) 10 mg PO HS [facility] Last Admin: 04/27/17 22:00 Dose: 10 mg Tamsulosin HCl (Flomax) 0.4 mg PO DAILY [facility] Last Admin: 04/28/17 09:08 Dose: 0.4 mg Vitamin A (Vitamin A & D Oint Ud Foilpak) 1 ea TOP BID [facility] Last Admin: 04/28/17 18:47 Dose: 1 ea Warfarin Sodium (Coumadin) 4 mg PO 1800 [facility] Last Admin: 04/28/17 18:47 Dose: 4 mg Zolpidem Tartrate (Ambien) 5 mg PO HS [facility] Last Admin: 04/27/17 22:01 Dose: 5 mg - Labs Labs: 04/28/17 06:36 04/28/17 06:36 PT 22.9 SECONDS (9.7-12.2) H 04/28/17 06:36 INR 2.0 04/28/17 06:36 APTT 29 SECONDS (21-34) 04/28/17 06:36 Assessment and Plan (1) Bradycardia Status: Acute (2) Atrial fibrillation Status: Acute (3) CVA (cerebral vascular accident) Status: Acute (4) NSVT (nonsustained ventricular tachycardia) Status: Acute (5) HTN (hypertension) Status: Chronic (6) Peripheral arterial occlusive disease Status: Resolved Attending/Attestation - Attestation I have personally seen and examined this patient.: Yes I have fully participated in the care of the patient.: Yes I have reviewed all pertinent clinical information, including history, physical exam and plan: Yes
[2017-04-29 06:55] LABS: INR 2.7
[2017-04-29 07:18] LABS: ALB/GLOB RATIO 0.8 (1.0-2.1); ALKALINE PHOSPHATASE 72 U/L (38-126); ALT/SGPT 25 U/L (21-72); AST/SGOT 15 U/L (17-59); BILIRUBIN,TOTAL 0.3 mg/dL (0.2-1.3); BLOOD UREA NITROGEN 10 mg/dL (9-20); CALCIUM 7.7 mg/dl (8.6-10.4); CARBON DIOXIDE 23 mmol/L (22-30); CHLORIDE 102 mmol/L (98-107); GFR AFRICAN-AMERICAN > 60; GLUCOSE,RANDOM 72 mg/dL (75-110); MAGNESIUM 1.8 mg/dL (1.6-2.3); PHOSPHOROUS 3.7 mg/dL (2.5-4.5); POTASSIUM 3.4 mmol/L (3.6-5.2); SODIUM 134 mmol/L (132-148); TOTAL PROTEIN 6.2 g/dL (6.3-8.3)
[2017-04-29 07:27] LABS: BASO % 0.5 % (0.0-2.0); EOS # 0.2 K/uL (0.0-0.7); EOS % 3.6 % (0.0-4.0); LYMPH # 1.9 K/uL (1.0-4.3); LYMPH % 36.9 % (20.0-40.0); MEAN CELL VOLUME 75.5 fL (80.0-94.0); MEAN CORPUSCULAR HEMOGLOBIN 24.5 pg (27.0-31.0); MEAN CORPUSCULAR HGB CONC 32.4 g/dL (33.0-37.0); MEAN PLATELET VOLUME 8.2 fL (7.2-11.7); MONO # 0.3 K/uL (0.0-0.8); NRBC % 0.1 % (0.0-2.0); RED CELL DISTRIBUTION WIDTH 16.3 % (11.5-14.5); WHITE BLOOD COUNT 5.1 K/uL (4.8-10.8)
--- NOTE | 2017-04-29 08:09 | CP.PCM.PN ---
<Marquez Marie - Last Filed: 04/29/17 12:16> Subjective - Date & Time of Evaluation Date of Evaluation: 04/29/17 Time of Evaluation: 07:00 - Subjective Subjective: Progress note for Cardiology Service Patient seen and examined at bedside. Patient was not fully alert and awake while doing assessment, speech still seems to be slurred; resolving, right sided facial droop still present;also resolving. Patient denies any shortness of breath, chest pain, dizziness, weakness, headache, fever, chills. Objective - Vital Signs/Intake and Output Vital Signs (last 24 hours): Temp Pulse Resp BP Pulse Ox 97.8 F 60 20 151/78 H 99 04/29/17 07:51 04/29/17 07:51 04/29/17 07:51 04/29/17 07:51 04/29/17 07:51 Intake and Output: 04/29/17 04/29/17 06:59 18:59 Intake Total 640 Output Total 1000 Balance -360 - Medications Medications: Current Medications Amiodarone HCl (Cordarone) 200 mg PO DAILY [facility] Last Admin: 04/28/17 09:11 Dose: 200 mg Aspirin (Ecotrin) 81 mg PO DAILY [facility] Last Admin: 04/28/17 09:08 Dose: 81 mg Chlorthalidone (Hygroton) 25 mg PO DAILY [facility] Last Admin: 04/28/17 09:08 Dose: 25 mg Clopidogrel Bisulfate (Plavix) 75 mg PO DAILY [facility] Last Admin: 04/28/17 09:08 Dose: 75 mg Diltiazem HCl (Cardizem Cd) 120 mg PO DAILY [facility] Finasteride (Proscar) 5 mg PO DAILY [facility] Last Admin: 04/28/17 09:08 Dose: 5 mg Gabapentin (Neurontin) 300 mg PO TID [facility] Last Admin: 04/28/17 18:47 Dose: 300 mg Dextrose/Sodium Chloride (Dextrose 5%/0.45% Ns 1000 Ml) 1,000 mls @ 70 mls/hr IV .[id number] [facility] Last Admin: 04/28/17 23:55 Dose: Not Given Potassium Chloride/Dextrose/Sod Cl (Potassium Chl 40 Meq In D5-1/2ns) 1,000 mls @ 40 mls/hr IV .Q24H [facility] Last Admin: 04/28/17 09:06 Dose: 40 mls/hr Levetiracetam (Keppra) 500 mg PO BID [facility] Last Admin: 04/28/17 18:47 Dose: 500 mg Losartan Potassium (Cozaar) 25 mg PO DAILY [facility] Last Admin: 04/28/17 09:08 Dose: 25 mg Oxycodone HCl (Oxycodone Immediate Release Tab) 5 mg PO Q6 PRN PRN Reason: Pain, severe (8-10) Pantoprazole Sodium (Protonix Inj) 40 mg IVP Q12H [facility] Last Admin: 04/28/17 21:40 Dose: 40 mg Rosuvastatin Calcium (Crestor) 10 mg PO HS [facility] Last Admin: 04/28/17 21:40 Dose: 10 mg Tamsulosin HCl (Flomax) 0.4 mg PO DAILY [facility] Last Admin: 04/28/17 09:08 Dose: 0.4 mg Vitamin A (Vitamin A & D Oint Ud Foilpak) 1 ea TOP BID [facility] Last Admin: 04/28/17 18:47 Dose: 1 ea Warfarin Sodium (Coumadin) 4 mg PO 1800 [facility] Last Admin: 04/28/17 18:47 Dose: 4 mg Zolpidem Tartrate (Ambien) 5 mg PO HS [facility] Last Admin: 04/28/17 21:40 Dose: 5 mg - Labs Labs: 04/29/17 06:38 04/29/17 06:38 PT 31.9 SECONDS (9.7-12.2) H* D 04/29/17 06:38 INR 2.7 D 04/29/17 06:38 APTT 35 SECONDS (21-34) H D 04/29/17 06:38 - Constitutional Appears: Non-toxic, No Acute Distress - Head Exam Head Exam: ATRAUMATIC, NORMAL INSPECTION, NORMOCEPHALIC - Eye Exam Eye Exam: EOMI, Normal appearance - ENT Exam ENT Exam: Mucous Membranes Moist, Normal Exam - Respiratory Exam Respiratory Exam: Clear to Ausculation Bilateral, NORMAL BREATHING PATTERN. absent: Rhonchi, Wheezes - Cardiovascular Exam Cardiovascular Exam: REGULAR RHYTHM, +S1, +S2 - GI/Abdominal Exam GI & Abdominal Exam: Soft, Normal Bowel Sounds - Extremities Exam Extremities Exam: absent: Normal Inspection Additional comments: B/L lower extremity amputation - Neurological Exam Neurological Exam: Alert, Awake, Oriented x3 Additional comments: right sided facial droop slurred speech - Psychiatric Exam Psychiatric exam: Normal Affect, Normal Mood - Skin Skin Exam: Intact, Normal Color, Warm Assessment and Plan - Assessment and Plan (Free Text) Assessment: Patient is a 71 y/o male past medical history of HTN, HLD, multiple CVAs, and recent AKA b/l 2/2 PAD, presents with slurred speech and right facial droop. Plan: 1.TIA r/o cardiac etiology -Last echo 02/04/17 revealed LVEF 55-60%, aortic regurgitation, tricuspid regurgitation -Continue with lipitor, aspirin -Neurology c/s 2.Bradycardia - Cardizem dosage was decreased to 120 - HR now in upper 50s-60s - Will continue to monitor - Monitor blood pressure since cardizem has been decreased; possibly increase cozaar if necessary 3. Atrial Fibrillation - Amiodarone - Cardizem - YVES can be performed as inpatient for 05/04 if patient isn't discharged, if discharged can set up appt as elective procedure 4. PAD S/P Bilateral AKA -Daily Coumadin; monitor INR -Gabapentin -Plavix -Aspirin <Luis Brown - Last Filed: 04/29/17 12:27> Objective - Vital Signs/Intake and Output Vital Signs (last 24 hours): Temp Pulse Resp BP Pulse Ox 97.8 F 64 20 151/78 H 99 04/29/17 07:51 04/29/17 09:13 04/29/17 07:51 04/29/17 07:51 04/29/17 07:51 Intake and Output: 04/29/17 04/29/17 06:59 18:59 Intake Total 1200 Output Total 1000 Balance 200 - Medications Medications: Current Medications Amiodarone HCl (Cordarone) 200 mg PO DAILY [facility] Last Admin: 04/29/17 10:12 Dose: 200 mg Aspirin (Ecotrin) 81 mg PO DAILY [facility] Last Admin: 04/29/17 10:12 Dose: 81 mg Chlorthalidone (Hygroton) 25 mg PO DAILY [facility] Last Admin: 04/29/17 10:11 Dose: 25 mg Clopidogrel Bisulfate (Plavix) 75 mg PO DAILY [facility] Last Admin: 04/29/17 10:08 Dose: 75 mg Diltiazem HCl (Cardizem Cd) 120 mg PO DAILY [facility] Last Admin: 04/29/17 10:12 Dose: 120 mg Finasteride (Proscar) 5 mg PO DAILY [facility] Last Admin: 04/29/17 10:23 Dose: 5 mg Gabapentin (Neurontin) 300 mg PO TID [facility] Last Admin: 04/29/17 10:12 Dose: 300 mg Dextrose/Sodium Chloride (Dextrose 5%/0.45% Ns 1000 Ml) 1,000 mls @ 70 mls/hr IV .[id number] Last Admin: 04/29/17 10:15 Dose: Not Given Potassium Chloride/Dextrose/Sod Cl (Potassium Chl 40 Meq In D5-1/2ns) 1,000 mls @ 40 mls/hr IV .Q24H [facility] Last Admin: 04/29/17 10:14 Dose: 40 mls/hr Levetiracetam (Keppra) 500 mg PO BID [facility] Last Admin: 04/29/17 10:10 Dose: 500 mg Losartan Potassium (Cozaar) 25 mg PO DAILY [facility] Last Admin: 04/29/17 10:13 Dose: 25 mg Oxycodone HCl (Oxycodone Immediate Release Tab) 5 mg PO Q6 PRN PRN Reason: Pain, severe (8-10) Pantoprazole Sodium (Protonix Inj) 40 mg IVP Q12H [facility] Last Admin: 04/29/17 08:47 Dose: 40 mg Rosuvastatin Calcium (Crestor) 10 mg PO HS [facility] Last Admin: 04/28/17 21:40 Dose: 10 mg Tamsulosin HCl (Flomax) 0.4 mg PO DAILY [facility] Last Admin: 04/29/17 10:13 Dose: 0.4 mg Vitamin A [facility] 1 ea TOP BID [facility] Last Admin: 04/29/17 10:12 Dose: 1 ea Warfarin Sodium (Coumadin) 4 mg PO 1800 [facility] Last Admin: 04/28/17 18:47 Dose: 4 mg Zolpidem Tartrate (Ambien) 5 mg PO HS [facility] Last Admin: 04/28/17 21:40 Dose: 5 mg - Labs Labs: 04/29/17 06:38 04/29/17 06:38 PT 31.9 SECONDS (9.7-12.2) H* D 04/29/17 06:38 INR 2.7 D 04/29/17 06:38 APTT 35 SECONDS (21-34) H D 04/29/17 06:38 Assessment and Plan (1) Bradycardia Status: Acute (2) Atrial fibrillation Status: Acute (3) CVA (cerebral vascular accident) Status: Acute (4) NSVT (nonsustained ventricular tachycardia) Status: Acute (5) HTN (hypertension) Status: Chronic (6) Peripheral arterial occlusive disease Status: Resolved Attending/Attestation - Attestation I have personally seen and examined this patient.: Yes I have fully participated in the care of the patient.: Yes I have reviewed all pertinent clinical information, including history, physical exam and plan: Yes Notes (Text): 04/29/17 12:27 slurred speech with facial droop plan for [facility] on thursday
[2017-04-29] MEDS ORDERED: Magnesium Sulfate 1 gm in D5W 1 GM/100 ML BAG IVPB SCH (09:30)
--- NOTE | 2017-04-29 10:11 | CP.PCM.PN ---
<Ignacio Mccann - Last Filed: 04/29/17 11:56> Subjective - Date & Time of Evaluation Date of Evaluation: 04/29/17 Time of Evaluation: 07:40 - Subjective Subjective: PGY2 Resident - Medicine Progress Note Patient seen and examined with Daughter at bedside. No acute distress. No overnight events. Patient with continued R facial droop and slurred speech s/p recent CVA seen on MRI (both mildly improved). Denies hematoschezia, no sonny blood appreciated despite +FOB. Denies fever, chills, headache, chest pain, palpitations, dyspnea, cough, abdominal pain, nausea/vomiting, diarrhea/ constipation, dysuria, urinary frequency, change in urinary stream, or any additional acute complaints. Objective - Vital Signs/Intake and Output Vital Signs (last 24 hours): Temp Pulse Resp BP Pulse Ox 97.8 F 64 20 151/78 H 99 04/29/17 07:51 04/29/17 09:13 04/29/17 07:51 04/29/17 07:51 04/29/17 07:51 Intake and Output: 04/29/17 04/29/17 06:59 18:59 Intake Total 1200 Output Total 1000 Balance 200 - Medications Medications: Current Medications Amiodarone HCl (Cordarone) 200 mg PO DAILY [facility] Last Admin: 04/28/17 09:11 Dose: 200 mg Aspirin (Ecotrin) 81 mg PO DAILY [facility] Last Admin: 04/28/17 09:08 Dose: 81 mg Chlorthalidone (Hygroton) 25 mg PO DAILY [facility] Last Admin: 04/28/17 09:08 Dose: 25 mg Clopidogrel Bisulfate (Plavix) 75 mg PO DAILY [facility] Last Admin: 04/28/17 09:08 Dose: 75 mg Diltiazem HCl (Cardizem Cd) 120 mg PO DAILY [facility] Finasteride (Proscar) 5 mg PO DAILY [facility] Last Admin: 04/28/17 09:08 Dose: 5 mg Gabapentin (Neurontin) 300 mg PO TID [facility] Last Admin: 04/28/17 18:47 Dose: 300 mg Dextrose/Sodium Chloride (Dextrose 5%/0.45% Ns 1000 Ml) 1,000 mls @ 70 mls/hr IV .[id number] [facility] Last Admin: 04/28/17 23:55 Dose: Not Given Potassium Chloride/Dextrose/Sod Cl (Potassium Chl 40 Meq In D5-1/2ns) 1,000 mls @ 40 mls/hr IV .Q24H [facility] Last Admin: 04/28/17 09:06 Dose: 40 mls/hr Levetiracetam (Keppra) 500 mg PO BID [facility] Last Admin: 04/28/17 18:47 Dose: 500 mg Losartan Potassium (Cozaar) 25 mg PO DAILY [facility] Last Admin: 04/28/17 09:08 Dose: 25 mg Oxycodone HCl (Oxycodone Immediate Release Tab) 5 mg PO Q6 PRN PRN Reason: Pain, severe (8-10) Pantoprazole Sodium (Protonix Inj) 40 mg IVP Q12H [facility] Last Admin: 04/29/17 08:47 Dose: 40 mg Potassium Chloride (Potassium Chloride Oral Soln) 40 meq PO ONCE ONE Stop: 04/29/17 10:31 Rosuvastatin Calcium (Crestor) 10 mg PO HS [facility] Last Admin: 04/28/17 21:40 Dose: 10 mg Tamsulosin HCl (Flomax) 0.4 mg PO DAILY [facility] Last Admin: 04/28/17 09:08 Dose: 0.4 mg Vitamin A (Vitamin A & D Oint Ud Foilpak) 1 ea TOP BID [facility] Last Admin: 04/28/17 18:47 Dose: 1 ea Warfarin Sodium (Coumadin) 4 mg PO 1800 [facility] Last Admin: 04/28/17 18:47 Dose: 4 mg Zolpidem Tartrate (Ambien) 5 mg PO HS [facility] Last Admin: 04/28/17 21:40 Dose: 5 mg - Labs Labs: 04/29/17 06:38 04/29/17 06:38 PT 31.9 SECONDS (9.7-12.2) H* D 04/29/17 06:38 INR 2.7 D 04/29/17 06:38 APTT 35 SECONDS (21-34) H D 04/29/17 06:38 - Additional Findings Additional findings: - Constitutional Appears: Non-toxic, No Acute Distress - Head Exam Head Exam: ATRAUMATIC, NORMAL INSPECTION, NORMOCEPHALIC - Eye Exam Eye Exam: EOMI - ENT Exam ENT Exam: Mucous Membranes Moist - Neck Exam Neck Exam: Full ROM, Normal Inspection - Respiratory Exam Respiratory Exam: NORMAL BREATHING PATTERN. absent: Respiratory Distress - Cardiovascular Exam Cardiovascular Exam: Regular Rate, +S1, +S2 - GI/Abdominal Exam GI & Abdominal Exam: Soft, Normal Bowel Sounds. absent: Tenderness - Extremities Exam Extremities Exam: Full ROM, Normal Inspection -bilateral LE BKA. 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 Dr. Fitch. dorinda appreciated. -cardio consult. Dr. Benz. seth appreciated. -pureed diet as per swallow eval -asa 81 mg po daily -plavix 75 mg daily -PT/OT ordered; patient will need extensive rehab but daughter wants to bring patient home instead of prison facility -oxycodone for pain prn severe pain hx of HTN -continue losartan daily -continue chlorthalidone daily -continue cardizem daily Atrial Fibrillation 04/29: Continue Coumadin 4mg PO qD; patient is therapeutic w/ INR of 2.7 04/27: plan for possible YVES; however no indication from notes that patient will be receiving YVES -cardiology currently has no plan to take patient for YVES but will benefit from this before leaving for prison facility -Continue Coumadin 4mg PO qD; patient is therapeutic w/ INR of 2.0 -cardio consult. Dr. Brown. dorinda appreciated. Bradycardia - Cardizem dosage was decreased to 120 - HR now in upper 50s-60s - Will continue to monitor - Monitor blood pressure since cardizem has been decreased; possibly increase cozaar if necessary Insomnia -continue ambien daily PO HS Electrolyte imbalance 04/29: Hypokalemia K3.4 -> will replete -Hypokalemia, 3.1 today; will replete GI/DVT -protonix daily BID -SCDs -Diet: pureed -f/u stool occult blood was positive; however hgb is stable and patient is on multiple blood thinners Discharge Planning: Recommendation is for rehab and daughter is agreeing; patients family is requesting [facility] which they are amenable to -patient will also need to be fitted for prosthesis Case discussed with attending. All medical management as per Dr. Inocencio Vines <Janet Vines - Last Filed: 05/04/17 15:56> Objective - Vital Signs/Intake and Output Vital Signs (last 24 hours): Temp Pulse Resp BP Pulse Ox 98.4 F 56 L 18 126/67 100 05/04/17 07:50 05/04/17 08:00 05/04/17 07:50 05/04/17 07:50 05/04/17 07:50 Intake and Output: 05/04/17 05/04/17 06:59 18:59 Intake Total 320 Output Total 1000 Balance -680 - Medications Medications: Current Medications Amiodarone HCl (Cordarone) 200 mg PO DAILY [facility] Last Admin: 05/04/17 09:27 Dose: 200 mg Aspirin (Ecotrin) 81 mg PO DAILY [facility] Last Admin: 05/03/17 09:12 Dose: 81 mg Chlorthalidone (Hygroton) 25 mg PO DAILY [facility] Last Admin: 05/04/17 09:27 Dose: 25 mg Clopidogrel Bisulfate (Plavix) 75 mg PO DAILY [facility] Last Admin: 05/03/17 09:11 Dose: 75 mg Diltiazem HCl (Cardizem Cd) 120 mg PO DAILY [facility] Last Admin: 05/04/17 09:27 Dose: 120 mg Enoxaparin Sodium (Lovenox) 70 mg SC Q12H [facility] Last Admin: 05/03/17 21:17 Dose: 70 mg Finasteride (Proscar) 5 mg PO DAILY [facility] Last Admin: 05/04/17 09:27 Dose: 5 mg Gabapentin (Neurontin) 300 mg PO TID [facility] Last Admin: 05/04/17 14:38 Dose: Not Given Levetiracetam (Keppra) 500 mg PO BID [facility] Last Admin: 05/04/17 09:27 Dose: 500 mg Losartan Potassium (Cozaar) 25 mg PO DAILY [facility] Last Admin: 05/04/17 09:27 Dose: 25 mg Pantoprazole Sodium (Protonix Inj) 40 mg IVP Q12H [facility] Last Admin: 05/04/17 08:42 Dose: 40 mg Potassium Chloride (Klor-Con 10) 10 meq PO DAILY [facility] Last Admin: 05/04/17 09:27 Dose: 10 meq Potassium Chloride (Klor-Con 10) 10 meq PO [facility] Last Admin: 05/04/17 08:42 Dose: 10 meq Rosuvastatin Calcium (Crestor) 10 mg PO HS [facility] Last Admin: 05/02/17 21:12 Dose: 10 mg Tamsulosin HCl (Flomax) 0.4 mg PO DAILY [facility] Last Admin: 05/04/17 09:27 Dose: 0.4 mg Vitamin A (Vitamin A & D Oint Ud Foilpak) 1 ea TOP BID [facility] Last Admin: 05/04/17 09:27 Dose: 1 ea Zolpidem Tartrate (Ambien) 5 mg PO HS [facility] Last Admin: 05/03/17 21:17 Dose: 5 mg - Labs Labs: 05/04/17 00:57 05/04/17 07:41 PT 16.7 SECONDS (9.7-12.2) H 05/04/17 07:02 INR 1.5 05/04/17 07:02 APTT 34 SECONDS (21-34) 05/04/17 07:02 Assessment and Plan (1) Bradycardia Status: Acute (2) CVA (cerebral vascular accident) Status: Acute (3) TIA (transient ischemic attack) Status: Acute (4) Atrial fibrillation Status: Acute (5) Elevated CK Status: Acute (6) Knee pain, left Status: Acute (7) Medicine refill Status: Acute (8) NSVT (nonsustained ventricular tachycardia) Status: Acute (9) Preop cardiovascular exam Status: Acute (10) Rhabdomyolysis Status: Acute (11) CKD (chronic kidney disease) Status: Chronic (12) HTN (hypertension) Status: Chronic (13) HTN (hypertension), malignant Status: Chronic Attending/Attestation - Attestation I have personally seen and examined this patient.: Yes I have fully participated in the care of the patient.: Yes I have reviewed all pertinent clinical information, including history, physical exam and plan: Yes Notes (Text): Patient examined. Patient better. Continue aspirin and clopidogrel. Continue antihypertensive medications. Continue levetiracetam. Continue warfarin. Continue supportive care.
[2017-04-29] MEDS: diltiaZEM 120 mg/24 Hours CD Cap PO SCH (10:12)
[2017-04-29] MEDS: Vitamins A & D Oint UD Foilpak TOP SCH ×2 (10:12→17:59)
[2017-04-29] MEDS: Potassium Chl 40 mEq in D5-1/2 1,000 ML IV SCH (10:14)
[2017-04-29] MEDS: Dextrose 5%/0.45% NS 1,000 ML IV SCH (10:15)
[2017-04-29] MEDS ORDERED: Potassium Chloride 20 mEq/15 ml LIQ UD PO ONE (10:30)
--- NOTE | 2017-04-29 19:15 | CP.PCM.PN ---
Subjective - Date & Time of Evaluation Date of Evaluation: 04/29/17 Time of Evaluation: 10:40 - Subjective Subjective: clinically same Objective - Vital Signs/Intake and Output Vital Signs (last 24 hours): Temp Pulse Resp BP Pulse Ox 97.5 F L 55 L 20 103/59 L 98 04/29/17 16:00 04/29/17 16:00 04/29/17 16:00 04/29/17 16:00 04/29/17 16:00 - Medications Medications: Current Medications Amiodarone HCl (Cordarone) 200 mg PO DAILY [facility] Last Admin: 04/29/17 10:12 Dose: 200 mg Aspirin (Ecotrin) 81 mg PO DAILY [facility] Last Admin: 04/29/17 10:12 Dose: 81 mg Chlorthalidone (Hygroton) 25 mg PO DAILY [facility] Last Admin: 04/29/17 10:11 Dose: 25 mg Clopidogrel Bisulfate (Plavix) 75 mg PO DAILY [facility] Last Admin: 04/29/17 10:08 Dose: 75 mg Diltiazem HCl (Cardizem Cd) 120 mg PO DAILY [facility] Last Admin: 04/29/17 10:12 Dose: 120 mg Finasteride (Proscar) 5 mg PO DAILY [facility] Last Admin: 04/29/17 10:23 Dose: 5 mg Gabapentin (Neurontin) 300 mg PO TID [facility] Last Admin: 04/29/17 17:58 Dose: 300 mg Dextrose/Sodium Chloride (Dextrose 5%/0.45% Ns 1000 Ml) 1,000 mls @ 70 mls/hr IV .[id number] [facility] Last Admin: 04/29/17 10:15 Dose: Not Given Potassium Chloride/Dextrose/Sod Cl (Potassium Chl 40 Meq In D5-1/2ns) 1,000 mls @ 40 mls/hr IV .Q24H [facility] Last Admin: 04/29/17 10:14 Dose: 40 mls/hr Levetiracetam (Keppra) 500 mg PO BID [facility] Last Admin: 04/29/17 17:58 Dose: 500 mg Losartan Potassium (Cozaar) 25 mg PO DAILY [facility] Last Admin: 04/29/17 10:13 Dose: 25 mg Oxycodone HCl (Oxycodone Immediate Release Tab) 5 mg PO Q6 PRN PRN Reason: Pain, severe (8-10) Pantoprazole Sodium (Protonix Inj) 40 mg IVP Q12H [facility] Last Admin: 04/29/17 08:47 Dose: 40 mg Rosuvastatin Calcium (Crestor) 10 mg PO HS [facility] Last Admin: 04/28/17 21:40 Dose: 10 mg Tamsulosin HCl (Flomax) 0.4 mg PO DAILY [facility] Last Admin: 04/29/17 10:13 Dose: 0.4 mg Vitamin A (Vitamin A & D Oint Ud Foilpak) 1 ea TOP BID [facility] Last Admin: 04/29/17 17:59 Dose: 1 ea Zolpidem Tartrate (Ambien) 5 mg PO HS [facility] Last Admin: 04/28/17 21:40 Dose: 5 mg - Labs Labs: 04/29/17 06:38 04/29/17 06:38 PT 31.9 SECONDS (9.7-12.2) H* D 04/29/17 06:38 INR 2.7 D 04/29/17 06:38 APTT 35 SECONDS (21-34) H D 04/29/17 06:38 - Constitutional Appears: Well - Head Exam Head Exam: ATRAUMATIC, NORMAL INSPECTION, NORMOCEPHALIC - Eye Exam Eye Exam: EOMI, Normal appearance, PERRL Pupil Exam: NORMAL ACCOMODATION, PERRL - ENT Exam ENT Exam: Mucous Membranes Moist, Normal Exam - Neck Exam Neck Exam: Full ROM, Normal Inspection. absent: Lymphadenopathy - Respiratory Exam Respiratory Exam: Clear to Ausculation Bilateral, NORMAL BREATHING PATTERN - Cardiovascular Exam Cardiovascular Exam: REGULAR RHYTHM, +S1, +S2. absent: Murmur - GI/Abdominal Exam GI & Abdominal Exam: Soft, Normal Bowel Sounds. absent: Tenderness - Rectal Exam Rectal Exam: Deferred Assessment and Plan (1) Bradycardia Status: Acute (2) CVA (cerebral vascular accident) Status: Acute (3) TIA (transient ischemic attack) Status: Acute (4) Atrial fibrillation Status: Acute (5) Elevated CK Status: Acute (6) Knee pain, left Status: Acute (7) Medicine refill Status: Acute (8) NSVT (nonsustained ventricular tachycardia) Status: Acute (9) Preop cardiovascular exam Status: Acute (10) Rhabdomyolysis Status: Acute (11) CKD (chronic kidney disease) Status: Chronic (12) HTN (hypertension) Status: Chronic (13) HTN (hypertension), malignant Status: Chronic (14) Critical lower limb ischemia Status: Resolved (15) Peripheral arterial occlusive disease Status: Resolved (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 Patient better. Continue aspirin and clopidogrel. Continue antihypertensive medications. Continue levetiracetam. Continue warfarin. Continue supportive care.
[2017-04-29] MEDS ORDERED: Potassium Chloride 20 mEq ER Tab PO STA (20:21)
[2017-04-30] MEDS: Dextrose 5%/0.45% NS 1,000 ML IV SCH (06:13)
--- NOTE | 2017-04-30 06:24 | CP.PCM.PN ---
<Marquez Marie - Last Filed: 04/30/17 07:13> Subjective - Date & Time of Evaluation Date of Evaluation: 04/30/17 Time of Evaluation: 05:40 - Subjective Subjective: Patient seen and examined at bedside in no acute distress. Patient states he has no complaints and feels great. States he is breathing well and has no chest pain. Also denies shortness of breath, weakness, numbness, tingling, abdominal pain. States he is scheduled for EEG by neurology morning of 05/04. Objective - Vital Signs/Intake and Output Vital Signs (last 24 hours): Temp Pulse Resp BP Pulse Ox 97.4 F L 55 L 20 118/66 98 04/29/17 23:30 04/29/17 23:30 04/29/17 23:30 04/29/17 23:30 04/29/17 23:30 Intake and Output: 04/29/17 04/30/17 18:59 06:59 Intake Total 320 Output Total 400 Balance -80 - Medications Medications: Current Medications Amiodarone HCl (Cordarone) 200 mg PO DAILY [facility] Last Admin: 04/29/17 10:12 Dose: 200 mg Aspirin (Ecotrin) 81 mg PO DAILY [facility] Last Admin: 04/29/17 10:12 Dose: 81 mg Chlorthalidone (Hygroton) 25 mg PO DAILY [facility] Last Admin: 04/29/17 10:11 Dose: 25 mg Clopidogrel Bisulfate (Plavix) 75 mg PO DAILY [facility] Last Admin: 04/29/17 10:08 Dose: 75 mg Diltiazem HCl (Cardizem Cd) 120 mg PO DAILY [facility] Last Admin: 04/29/17 10:12 Dose: 120 mg Finasteride (Proscar) 5 mg PO DAILY [facility] Last Admin: 04/29/17 10:23 Dose: 5 mg Gabapentin (Neurontin) 300 mg PO TID [facility] Last Admin: 04/29/17 17:58 Dose: 300 mg Dextrose/Sodium Chloride (Dextrose 5%/0.45% Ns 1000 Ml) 1,000 mls @ 70 mls/hr IV .[id number] [facility] Last Admin: 04/30/17 06:13 Dose: Not Given Potassium Chloride/Dextrose/Sod Cl (Potassium Chl 40 Meq In D5-1/2ns) 1,000 mls @ 40 mls/hr IV .Q24H [facility] Last Admin: 04/29/17 10:14 Dose: 40 mls/hr Levetiracetam (Keppra) 500 mg PO BID [facility] Last Admin: 04/29/17 17:58 Dose: 500 mg Losartan Potassium (Cozaar) 25 mg PO DAILY [facility] Last Admin: 04/29/17 10:13 Dose: 25 mg Oxycodone HCl (Oxycodone Immediate Release Tab) 5 mg PO Q6 PRN PRN Reason: Pain, severe (8-10) Pantoprazole Sodium (Protonix Inj) 40 mg IVP Q12H [facility] Last Admin: 04/29/17 20:23 Dose: 40 mg Rosuvastatin Calcium (Crestor) 10 mg PO HS [facility] Last Admin: 04/29/17 21:19 Dose: 10 mg Tamsulosin HCl (Flomax) 0.4 mg PO DAILY [facility] Last Admin: 04/29/17 10:13 Dose: 0.4 mg Vitamin A (Vitamin A & D Oint Ud Foilpak) 1 ea TOP BID [facility] Last Admin: 04/29/17 17:59 Dose: 1 ea Zolpidem Tartrate (Ambien) 5 mg PO HS [facility] Last Admin: 04/29/17 21:19 Dose: 5 mg - Labs Labs: 04/29/17 06:38 04/29/17 06:38 PT 31.9 SECONDS (9.7-12.2) H* D 04/29/17 06:38 INR 2.7 D 04/29/17 06:38 APTT 35 SECONDS (21-34) H D 04/29/17 06:38 - Constitutional Appears: Non-toxic, No Acute Distress - Head Exam Head Exam: ATRAUMATIC, NORMAL INSPECTION, NORMOCEPHALIC - Eye Exam Eye Exam: EOMI, Normal appearance - ENT Exam ENT Exam: Mucous Membranes Moist, Normal Exam - Neck Exam Neck Exam: Normal Inspection - Respiratory Exam Respiratory Exam: Clear to Ausculation Bilateral, NORMAL BREATHING PATTERN. absent: Rhonchi, Wheezes - Cardiovascular Exam Cardiovascular Exam: Bradycardia, +S1, +S2 - GI/Abdominal Exam GI & Abdominal Exam: Soft, Normal Bowel Sounds - Rectal Exam Rectal Exam: NORMAL INSPECTION - Extremities Exam Additional comments: B/L lower extremity amputation - Neurological Exam Neurological Exam: Alert, Awake, Oriented x3 - Psychiatric Exam Psychiatric exam: Normal Affect, Normal Mood - Skin Skin Exam: Normal Color, Warm Assessment and Plan - Assessment and Plan (Free Text) Assessment: Patient is a 71 y/o male past medical history of HTN, HLD, multiple CVAs, and recent AKA b/l 2/2 PAD, presents with slurred speech and right facial droop. Plan: Plan: 1.TIA r/o cardiac etiology -Continue with lipitor, aspirin -Neurology c/s; EEG scheduled for Thursday 2.Bradycardia - Cardizem dosage was decreased to 120mg ; possibly decrease dosage to 90mg? - HR now in upper 40s - Will continue to monitor - Monitor blood pressure since cardizem has been decreased; possibly increase cozaar if necessary 3. Atrial Fibrillation - Amiodarone - Cardizem - YVES 05/04 after patient's EEG by Neuro on 05/04 4. PAD S/P Bilateral AKA -Daily Coumadin; monitor INR -Gabapentin -Plavix -Aspirin <Luis Brown - Last Filed: 04/30/17 08:15> Objective - Vital Signs/Intake and Output Vital Signs (last 24 hours): Temp Pulse Resp BP Pulse Ox 97.4 F L 55 L 20 118/66 98 04/29/17 23:30 04/29/17 23:30 04/29/17 23:30 04/29/17 23:30 04/29/17 23:30 Intake and Output: 04/30/17 04/30/17 06:59 18:59 Intake Total 640 Output Total 650 Balance -10 - Medications Medications: Current Medications Amiodarone HCl (Cordarone) 200 mg PO DAILY [facility] Last Admin: 04/29/17 10:12 Dose: 200 mg Aspirin (Ecotrin) 81 mg PO DAILY [facility] Last Admin: 04/29/17 10:12 Dose: 81 mg Chlorthalidone (Hygroton) 25 mg PO DAILY [facility] Last Admin: 04/29/17 10:11 Dose: 25 mg Clopidogrel Bisulfate (Plavix) 75 mg PO DAILY [facility] Last Admin: 04/29/17 10:08 Dose: 75 mg Diltiazem HCl (Cardizem Cd) 120 mg PO DAILY [facility] Last Admin: 04/29/17 10:12 Dose: 120 mg Finasteride (Proscar) 5 mg PO DAILY [facility] Last Admin: 04/29/17 10:23 Dose: 5 mg Gabapentin (Neurontin) 300 mg PO TID [facility] Last Admin: 04/29/17 17:58 Dose: 300 mg Dextrose/Sodium Chloride (Dextrose 5%/0.45% Ns 1000 Ml) 1,000 mls @ 70 mls/hr IV .[id number] [facility] Last Admin: 04/30/17 06:13 Dose: Not Given Potassium Chloride/Dextrose/Sod Cl (Potassium Chl 40 Meq In D5-1/2ns) 1,000 mls @ 40 mls/hr IV .Q24H [facility] Last Admin: 04/30/17 07:41 Dose: 40 mls/hr Levetiracetam (Keppra) 500 mg PO BID [facility] Last Admin: 04/29/17 17:58 Dose: 500 mg Losartan Potassium (Cozaar) 25 mg PO DAILY [facility] Last Admin: 04/29/17 10:13 Dose: 25 mg Oxycodone HCl (Oxycodone Immediate Release Tab) 5 mg PO Q6 PRN PRN Reason: Pain, severe (8-10) Pantoprazole Sodium (Protonix Inj) 40 mg IVP Q12H [facility] Last Admin: 04/30/17 07:41 Dose: 40 mg Rosuvastatin Calcium (Crestor) 10 mg PO HS [facility] Last Admin: 04/29/17 21:19 Dose: 10 mg Tamsulosin HCl (Flomax) 0.4 mg PO DAILY [facility] Last Admin: 04/29/17 10:13 Dose: 0.4 mg Vitamin A (Vitamin A & D Oint Ud Foilpak) 1 ea TOP BID [facility] Last Admin: 04/29/17 17:59 Dose: 1 ea Zolpidem Tartrate (Ambien) 5 mg PO HS [facility] Last Admin: 04/29/17 21:19 Dose: 5 mg - Labs Labs: 04/30/17 07:13 04/29/17 06:38 PT 28.6 SECONDS (9.7-12.2) H 04/30/17 07:13 INR 2.5 04/30/17 07:13 APTT 32 SECONDS (21-34) 04/30/17 07:13 Assessment and Plan (1) Bradycardia Status: Acute (2) Atrial fibrillation Status: Acute (3) CVA (cerebral vascular accident) Status: Acute (4) NSVT (nonsustained ventricular tachycardia) Status: Acute (5) HTN (hypertension) Status: Chronic (6) Peripheral arterial occlusive disease Status: Resolved Attending/Attestation - Attestation I have personally seen and examined this patient.: Yes I have fully participated in the care of the patient.: Yes I have reviewed all pertinent clinical information, including history, physical exam and plan: Yes Notes (Text): 04/30/17 08:15 YVES on thursday
[2017-04-30 07:20] LABS: BASO % 0.6 % (0.0-2.0); EOS # 0.2 K/uL (0.0-0.7); EOS % 3.3 % (0.0-4.0); HEMATOCRIT 32.7 % (35.0-51.0); LYMPH # 1.5 K/uL (1.0-4.3); LYMPH % 31.5 % (20.0-40.0); MEAN CELL VOLUME 75.3 fL (80.0-94.0); MEAN CORPUSCULAR HEMOGLOBIN 25.2 pg (27.0-31.0); MEAN CORPUSCULAR HGB CONC 33.5 g/dL (33.0-37.0); MEAN PLATELET VOLUME 8.3 fL (7.2-11.7); MONO # 0.3 K/uL (0.0-0.8); MONO % 6.7 % (0.0-10.0); NRBC % 0.1 % (0.0-2.0); RED CELL DISTRIBUTION WIDTH 16.1 % (11.5-14.5); WHITE BLOOD COUNT 4.8 K/uL (4.8-10.8)
[2017-04-30 07:32] LABS: INR 2.5
[2017-04-30] MEDS: Potassium Chl 40 mEq in D5-1/2 1,000 ML IV SCH (07:41)
[2017-04-30 08:17] LABS: CHLORIDE 100 mmol/L (98-107); GFR AFRICAN-AMERICAN > 60; GLUCOSE,RANDOM 78 mg/dL (75-110); MAGNESIUM 1.8 mg/dL (1.6-2.3); PHOSPHOROUS 3.8 mg/dL (2.5-4.5); POTASSIUM 3.5 mmol/L (3.6-5.2); SODIUM 134 mmol/L (132-148)
[2017-04-30 08:23] LABS: ALB/GLOB RATIO 1.1 (1.0-2.1); ALKALINE PHOSPHATASE 80 U/L (38-126); ALT/SGPT 32 U/L (21-72); AST/SGOT 21 U/L (17-59); BILIRUBIN,TOTAL 0.7 mg/dL (0.2-1.3); BLOOD UREA NITROGEN 11 mg/dL (9-20); CALCIUM 7.9 mg/dl (8.6-10.4); CARBON DIOXIDE 28 mmol/L (22-30); TOTAL PROTEIN 5.7 g/dL (6.3-8.3)
[2017-04-30] MEDS: diltiaZEM 120 mg/24 Hours CD Cap PO SCH (09:16)
[2017-04-30] MEDS: Vitamins A & D Oint UD Foilpak TOP SCH ×2 (09:17→17:50)
--- NOTE | 2017-04-30 10:58 | CARD ---
APPROVED REPORT EKG Measurement Heart [id number] <Conclusion> Sinus bradycardia Right bundle branch block Left anterior fascicular block Bifascicular block Left ventricular hypertrophy with repolarization abnormality Abnormal ECG
--- NOTE | 2017-04-30 16:58 | CP.PCM.PN ---
Subjective - Date & Time of Evaluation Date of Evaluation: 04/30/17 Time of Evaluation: 21:30 - Subjective Subjective: clinically same. Objective - Vital Signs/Intake and Output Vital Signs (last 24 hours): Temp Pulse Resp BP Pulse Ox 98.6 F 57 L 20 130/72 100 04/30/17 16:40 04/30/17 16:40 04/30/17 16:40 04/30/17 16:40 04/30/17 16:40 Intake and Output: 04/30/17 04/30/17 06:59 18:59 Intake Total 640 Output Total 650 700 Balance -10 -700 - Medications Medications: Current Medications Amiodarone HCl (Cordarone) 200 mg PO DAILY [facility] Last Admin: 04/30/17 09:16 Dose: 200 mg Aspirin (Ecotrin) 81 mg PO DAILY [facility] Last Admin: 04/30/17 09:16 Dose: 81 mg Chlorthalidone (Hygroton) 25 mg PO DAILY [facility] Last Admin: 04/30/17 09:17 Dose: 25 mg Clopidogrel Bisulfate (Plavix) 75 mg PO DAILY [facility] Last Admin: 04/30/17 09:17 Dose: 75 mg Diltiazem HCl (Cardizem Cd) 120 mg PO DAILY [facility] Last Admin: 04/30/17 09:16 Dose: 120 mg Finasteride (Proscar) 5 mg PO DAILY [facility] Last Admin: 04/30/17 09:17 Dose: 5 mg Gabapentin (Neurontin) 300 mg PO TID [facility] Last Admin: 04/30/17 13:19 Dose: 300 mg Potassium Chloride/Dextrose/Sod Cl (Potassium Chl 40 Meq In D5-1/2ns) 1,000 mls @ 40 mls/hr IV .Q24H [facility] Last Admin: 04/30/17 07:41 Dose: 40 mls/hr Levetiracetam (Keppra) 500 mg PO BID [facility] Last Admin: 04/30/17 09:17 Dose: 500 mg Losartan Potassium (Cozaar) 25 mg PO DAILY [facility] Last Admin: 04/30/17 09:16 Dose: 25 mg Oxycodone HCl (Oxycodone Immediate Release Tab) 5 mg PO Q6 PRN PRN Reason: Pain, severe (8-10) Pantoprazole Sodium (Protonix Inj) 40 mg IVP Q12H [facility] Last Admin: 04/30/17 07:41 Dose: 40 mg Rosuvastatin Calcium (Crestor) 10 mg PO HS [facility] Last Admin: 04/29/17 21:19 Dose: 10 mg Tamsulosin HCl (Flomax) 0.4 mg PO DAILY [facility] Last Admin: 04/30/17 09:16 Dose: 0.4 mg Vitamin A (Vitamin A & D Oint Ud Foilpak) 1 ea TOP BID [facility] Last Admin: 04/30/17 09:17 Dose: 1 ea Warfarin Sodium (Coumadin) 4 mg PO 1800 [facility] Stop: 04/30/17 18:01 Zolpidem Tartrate (Ambien) 5 mg PO HS [facility] Last Admin: 04/29/17 21:19 Dose: 5 mg - Labs Labs: 04/30/17 07:13 04/30/17 07:13 PT 28.6 SECONDS (9.7-12.2) H 04/30/17 07:13 INR 2.5 04/30/17 07:13 APTT 32 SECONDS (21-34) 04/30/17 07:13 - Constitutional Appears: Well - Head Exam Head Exam: ATRAUMATIC, NORMAL INSPECTION, NORMOCEPHALIC - Eye Exam Eye Exam: EOMI, Normal appearance, PERRL Pupil Exam: NORMAL ACCOMODATION, PERRL - ENT Exam ENT Exam: Mucous Membranes Moist, Normal Exam - Neck Exam Neck Exam: Full ROM, Normal Inspection. absent: Lymphadenopathy - Respiratory Exam Respiratory Exam: Clear to Ausculation Bilateral, NORMAL BREATHING PATTERN - Cardiovascular Exam Cardiovascular Exam: REGULAR RHYTHM, +S1, +S2. absent: Murmur - GI/Abdominal Exam GI & Abdominal Exam: Soft, Normal Bowel Sounds. absent: Tenderness - Rectal Exam Rectal Exam: Deferred Assessment and Plan (1) Bradycardia Status: Acute (2) CVA (cerebral vascular accident) Status: Acute (3) TIA (transient ischemic attack) Status: Acute (4) Atrial fibrillation Status: Acute (5) Elevated CK Status: Acute (6) Knee pain, left Status: Acute (7) Medicine refill Status: Acute (8) NSVT (nonsustained ventricular tachycardia) Status: Acute (9) Preop cardiovascular exam Status: Acute (10) Rhabdomyolysis Status: Acute (11) CKD (chronic kidney disease) Status: Chronic (12) HTN (hypertension) Status: Chronic (13) HTN (hypertension), malignant Status: Chronic (14) Critical lower limb ischemia Status: Resolved (15) Peripheral arterial occlusive disease Status: Resolved (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 Patient better. Continue aspirin and clopidogrel. Continue antihypertensive medications. Continue levetiracetam. Continue warfarin. Continue supportive care.
[2017-04-30] MEDS ORDERED: Potassium Chloride 20 mEq/15 ml LIQ UD PO STA (17:18)
[2017-05-01 07:17] LABS: INR 2.1
[2017-05-01 07:38] LABS: BASO % 0.6 % (0.0-2.0); EOS # 0.2 K/uL (0.0-0.7); EOS % 3.7 % (0.0-4.0); HEMATOCRIT 31.2 % (35.0-51.0); LYMPH # 1.7 K/uL (1.0-4.3); LYMPH % 35.1 % (20.0-40.0); MEAN CELL VOLUME 75.3 fL (80.0-94.0); MEAN CORPUSCULAR HEMOGLOBIN 25.2 pg (27.0-31.0); MEAN CORPUSCULAR HGB CONC 33.5 g/dL (33.0-37.0); MEAN PLATELET VOLUME 8.3 fL (7.2-11.7); MONO # 0.3 K/uL (0.0-0.8); MONO % 6.6 % (0.0-10.0); NRBC % 0.1 % (0.0-2.0); RED CELL DISTRIBUTION WIDTH 16.2 % (11.5-14.5)
[2017-05-01 08:03] LABS: ALB/GLOB RATIO 1.1 (1.0-2.1); ALKALINE PHOSPHATASE 73 U/L (38-126); ALT/SGPT 24 U/L (21-72); AST/SGOT 16 U/L (17-59); BILIRUBIN,TOTAL 0.6 mg/dL (0.2-1.3); BLOOD UREA NITROGEN 13 mg/dL (9-20); CALCIUM 7.7 mg/dl (8.6-10.4); CARBON DIOXIDE 28 mmol/L (22-30); CHLORIDE 101 mmol/L (98-107); GFR AFRICAN-AMERICAN > 60; GLUCOSE,RANDOM 76 mg/dL (75-110); MAGNESIUM 1.6 mg/dL (1.6-2.3); POTASSIUM 3.5 mmol/L (3.6-5.2); SODIUM 134 mmol/L (132-148); TOTAL PROTEIN 5.3 g/dL (6.3-8.3)
--- NOTE | 2017-05-01 09:48 | CP.PCM.PN ---
<Ignacio Mccann - Last Filed: 05/01/17 14:35> Subjective - Date & Time of Evaluation Date of Evaluation: 05/01/17 Time of Evaluation: 07:15 - Subjective Subjective: PGY2 Resident - Medicine Progress Note Patient seen and examined with Daughter at bedside. No acute distress. No overnight events. Patient with mild R facial droop and slurred speech, however continues to improve since inciting event (recent CVA seen on MRI). He is AAOx3. Denies hematoschezia, no sonny blood appreciated despite +FOB. Denies fever, chills, headache, chest pain, palpitations, dyspnea, cough, abdominal pain, nausea/vomiting, diarrhea/constipation, dysuria, urinary frequency, change in urinary stream, or any additional acute complaints. Patient is stable for discharge to Rehab per Dr. Bernice Vines. 1. Thursday05/04/17, patient should return to the hospital NPO for a YVES with Cardiology. 2. Patient should resume all medications as outlined in this document. 3. Please make an appointment and follow up with your Primary Doctor Dr. Inocencio Vines within one week of discharge from rehab. Patient should return to ED immediately if symptoms return or worsen. Instructions discussed with patient who understood and agreed. Objective - Vital Signs/Intake and Output Vital Signs (last 24 hours): Temp Pulse Resp BP Pulse Ox 98.7 F 59 L 20 160/78 H 97 04/30/17 23:25 05/01/17 00:00 04/30/17 23:25 04/30/17 23:25 04/30/17 23:25 Intake and Output: 05/01/17 05/01/17 06:59 18:59 Intake Total 1120 Output Total 1400 Balance -280 - Medications Medications: Current Medications Amiodarone HCl (Cordarone) 200 mg PO DAILY [facility] Last Admin: 04/30/17 09:16 Dose: 200 mg Aspirin (Ecotrin) 81 mg PO DAILY [facility] Last Admin: 04/30/17 09:16 Dose: 81 mg Chlorthalidone (Hygroton) 25 mg PO DAILY [facility] Last Admin: 04/30/17 09:17 Dose: 25 mg Clopidogrel Bisulfate (Plavix) 75 mg PO DAILY [facility] Last Admin: 04/30/17 09:17 Dose: 75 mg Diltiazem HCl (Cardizem Cd) 120 mg PO DAILY [facility] Last Admin: 04/30/17 09:16 Dose: 120 mg Finasteride (Proscar) 5 mg PO DAILY [facility] Last Admin: 04/30/17 09:17 Dose: 5 mg Gabapentin (Neurontin) 300 mg PO TID [facility] Last Admin: 04/30/17 17:49 Dose: 300 mg Levetiracetam (Keppra) 500 mg PO BID [facility] Last Admin: 04/30/17 17:49 Dose: 500 mg Losartan Potassium (Cozaar) 25 mg PO DAILY [facility] Last Admin: 04/30/17 09:16 Dose: 25 mg Pantoprazole Sodium (Protonix Inj) 40 mg IVP Q12H [facility] Last Admin: 05/01/17 06:37 Dose: 40 mg Rosuvastatin Calcium (Crestor) 10 mg PO HS [facility] Last Admin: 04/30/17 21:40 Dose: 10 mg Tamsulosin HCl (Flomax) 0.4 mg PO DAILY [facility] Last Admin: 04/30/17 09:16 Dose: 0.4 mg Vitamin A (Vitamin A & D Oint Ud Foilpak) 1 ea TOP BID [facility] Last Admin: 04/30/17 17:50 Dose: 1 ea Zolpidem Tartrate (Ambien) 5 mg PO HS [facility] Last Admin: 04/30/17 21:39 Dose: 5 mg - Labs Labs: 05/01/17 06:58 05/01/17 06:58 PT 24.8 SECONDS (9.7-12.2) H 05/01/17 06:58 INR 2.1 05/01/17 06:58 APTT 31 SECONDS (21-34) 05/01/17 06:58 - Additional Findings Additional findings: - Constitutional Appears: Non-toxic, No Acute Distress - Head Exam Head Exam: ATRAUMATIC, NORMAL INSPECTION, NORMOCEPHALIC - Eye Exam Eye Exam: EOMI - ENT Exam ENT Exam: Mucous Membranes Moist - Neck Exam Neck Exam: Full ROM, Normal Inspection - Respiratory Exam Respiratory Exam: NORMAL BREATHING PATTERN. absent: Respiratory Distress - Cardiovascular Exam Cardiovascular Exam: Regular Rate, +S1, +S2 - GI/Abdominal Exam GI & Abdominal Exam: Soft, Normal Bowel Sounds. absent: Tenderness - Extremities Exam Extremities Exam: Full ROM, Normal Inspection -bilateral LE BKA. 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 04/29: Continue with lipitor, aspirin -IV hydration -Brain MRI - acute infarct, posterior L coronal radiata -carotid dopplers negative -neurology consult. Dr. Fitch. dorinda appreciated. -cardio consult. Dr. Feng. dorinda appreciated. -pureed diet as per swallow eval -asa 81 mg po daily -plavix 75 mg daily -PT/OT ordered; patient will need extensive rehab but daughter wants to bring patient home instead of [facility] facility -oxycodone for pain prn severe pain hx of HTN -continue losartan daily -continue chlorthalidone daily -continue cardizem daily Atrial Fibrillation 05/01: Planned for YVES today, patient is NPO. 04/29: Continue Coumadin 4mg PO qD; patient is therapeutic w/ INR of 2.7 04/27: plan for possible YVES; however no indication from notes that patient will be receiving YVES -cardiology currently has no plan to take patient for YVES but will benefit from this before leaving for [facility] facility -Continue Coumadin 4mg PO qD; patient is therapeutic w/ INR of 2.0 -cardio consult. Dr. Brown. dorinda appreciated. Bradycardia - Cardizem dosage was decreased to 120 - HR now in upper 50s-60s - Will continue to monitor - Monitor blood pressure since cardizem has been decreased; possibly increase cozaar if necessary Insomnia -continue ambien daily PO HS Electrolyte imbalance 05/01: Hypokalemia K3.5 -> KCl 40 + Mag sulfate x2bags (Mg 1.6) 04/29: Hypokalemia K3.4 -> will replete -Hypokalemia, 3.1 today; will replete GI/DVT -protonix daily BID -SCDs -Diet: pureed -f/u stool occult blood was positive; however hgb is stable and patient is on multiple blood thinners Discharge Planning: Recommendation is for rehab and daughter is agreeing; patients family is requesting [facility] which they are amenable to -patient will also need to be fitted for prosthesis, physical therapy is looking into protocol for having patient measured. Case discussed with attending. All medical management as per Dr. Inocencio Vines <Janet iVnes S - Last Filed: 05/04/17 15:59> Objective - Vital Signs/Intake and Output Vital Signs (last 24 hours): Temp Pulse Resp BP Pulse Ox 98.4 F 56 L 18 126/67 100 05/04/17 07:50 05/04/17 08:00 05/04/17 07:50 05/04/17 07:50 05/04/17 07:50 Intake and Output: 05/04/17 05/04/17 06:59 18:59 Intake Total 320 Output Total 1000 Balance -680 - Medications Medications: Current Medications Amiodarone HCl (Cordarone) 200 mg PO DAILY [facility] Last Admin: 05/04/17 09:27 Dose: 200 mg Aspirin (Ecotrin) 81 mg PO DAILY [facility] Last Admin: 05/03/17 09:12 Dose: 81 mg Chlorthalidone (Hygroton) 25 mg PO DAILY [facility] Last Admin: 05/04/17 09:27 Dose: 25 mg Clopidogrel Bisulfate (Plavix) 75 mg PO DAILY [facility] Last Admin: 05/03/17 09:11 Dose: 75 mg Diltiazem HCl (Cardizem Cd) 120 mg PO DAILY [facility] Last Admin: 05/04/17 09:27 Dose: 120 mg Enoxaparin Sodium (Lovenox) 70 mg SC Q12H [facility] Last Admin: 05/03/17 21:17 Dose: 70 mg Finasteride (Proscar) 5 mg PO DAILY [facility] Last Admin: 05/04/17 09:27 Dose: 5 mg Gabapentin (Neurontin) 300 mg PO TID [facility] Last Admin: 05/04/17 14:38 Dose: Not Given Levetiracetam (Keppra) 500 mg PO BID [facility] Last Admin: 05/04/17 09:27 Dose: 500 mg Losartan Potassium (Cozaar) 25 mg PO DAILY [facility] Last Admin: 05/04/17 09:27 Dose: 25 mg Pantoprazole Sodium (Protonix Inj) 40 mg IVP Q12H [facility] Last Admin: 05/04/17 08:42 Dose: 40 mg Potassium Chloride (Klor-Con 10) 10 meq PO DAILY [facility] Last Admin: 05/04/17 09:27 Dose: 10 meq Potassium Chloride (Klor-Con 10) 10 meq PO BRK [facility] Last Admin: 05/04/17 08:42 Dose: 10 meq Rosuvastatin Calcium (Crestor) 10 mg PO HS [facility] Last Admin: 05/02/17 21:12 Dose: 10 mg Tamsulosin HCl (Flomax) 0.4 mg PO DAILY [facility] Last Admin: 05/04/17 09:27 Dose: 0.4 mg Vitamin A (Vitamin A & D Oint Ud Foilpak) 1 ea TOP BID [facility] Last Admin: 05/04/17 09:27 Dose: 1 ea Zolpidem Tartrate (Ambien) 5 mg PO HS [facility] Last Admin: 05/03/17 21:17 Dose: 5 mg - Labs Labs: 05/04/17 00:57 05/04/17 07:41 PT 16.7 SECONDS (9.7-12.2) H 05/04/17 07:02 INR 1.5 05/04/17 07:02 APTT 34 SECONDS (21-34) 05/04/17 07:02 Assessment and Plan (1) Bradycardia Status: Acute (2) CVA (cerebral vascular accident) Status: Acute (3) TIA (transient ischemic attack) Status: Acute (4) Atrial fibrillation Status: Acute (5) Elevated CK Status: Acute (6) Knee pain, left Status: Acute (7) Medicine refill Status: Acute (8) NSVT (nonsustained ventricular tachycardia) Status: Acute (9) Preop cardiovascular exam Status: Acute (10) Rhabdomyolysis Status: Acute (11) CKD (chronic kidney disease) Status: Chronic (12) HTN (hypertension) Status: Chronic (13) HTN (hypertension), malignant Status: Chronic Attending/Attestation - Attestation I have personally seen and examined this patient.: Yes I have fully participated in the care of the patient.: Yes I have reviewed all pertinent clinical information, including history, physical exam and plan: Yes Notes (Text): Patient examined. Patient is stable for discharge. Follow-up for YVES with cardiology. Continue aspirin and clopidogrel. Continue antihypertensive medications. Continue supportive care.
[2017-05-01] MEDS ORDERED: Potassium Chloride 20 mEq/15 ml LIQ UD PO ONE (09:49)
[2017-05-01] MEDS: Magnesium Sulfate 1 gm in D5W 1 GM/100 ML BAG IVPB SCH ×2 (10:32→14:49)
[2017-05-01] MEDS: Potassium Chl 40 mEq in D5-1/2 1,000 ML IV SCH (10:33)
[2017-05-01] MEDS: Vitamins A & D Oint UD Foilpak TOP SCH ×2 (10:34→17:46)
[2017-05-01] MEDS: diltiaZEM 120 mg/24 Hours CD Cap PO SCH (10:34)
--- NOTE | 2017-05-01 11:30 | CP.PCM.PN ---
<Marquez Marie - Last Filed: 05/01/17 11:27> Subjective - Date & Time of Evaluation Date of Evaluation: 05/01/17 Time of Evaluation: 07:50 - Subjective Subjective: Patient seen and examined at bedside in no acute distress stating he feels great. Since YVES will be performed Thursday, diet has been changed to dysphagia pureed. NPO is set to start Thursday night. Facial droop impvoed, speech remains mildly slurred. Daughter was also seen at bedside during second encounter and explained everything. Objective - Vital Signs/Intake and Output Vital Signs (last 24 hours): Temp Pulse Resp BP Pulse Ox 98.2 F 60 20 133/72 96 05/01/17 07:00 05/01/17 07:00 05/01/17 07:00 05/01/17 07:00 05/01/17 07:00 Intake and Output: 05/01/17 05/01/17 06:59 18:59 Intake Total 1120 Output Total 1400 Balance -280 - Medications Medications: Current Medications Amiodarone HCl (Cordarone) 200 mg PO DAILY [facility] Last Admin: 05/01/17 10:34 Dose: 200 mg Aspirin (Ecotrin) 81 mg PO DAILY [facility] Last Admin: 05/01/17 10:34 Dose: 81 mg Chlorthalidone (Hygroton) 25 mg PO DAILY [facility] Last Admin: 05/01/17 10:34 Dose: 25 mg Clopidogrel Bisulfate (Plavix) 75 mg PO DAILY [facility] Last Admin: 05/01/17 10:34 Dose: 75 mg Diltiazem HCl (Cardizem Cd) 120 mg PO DAILY [facility] Last Admin: 05/01/17 10:34 Dose: 120 mg Finasteride (Proscar) 5 mg PO DAILY [facility] Last Admin: 04/30/17 09:17 Dose: 5 mg Gabapentin (Neurontin) 300 mg PO TID [facility] Last Admin: 05/01/17 10:34 Dose: 300 mg Levetiracetam (Keppra) 500 mg PO BID [facility] Last Admin: 05/01/17 10:34 Dose: 500 mg Losartan Potassium (Cozaar) 25 mg PO DAILY [facility] Last Admin: 05/01/17 10:33 Dose: 25 mg Pantoprazole Sodium (Protonix Inj) 40 mg IVP Q12H [facility] Last Admin: 05/01/17 06:37 Dose: 40 mg Rosuvastatin Calcium (Crestor) 10 mg PO HS [facility] Last Admin: 04/30/17 21:40 Dose: 10 mg Tamsulosin HCl (Flomax) 0.4 mg PO DAILY [facility] Last Admin: 05/01/17 10:34 Dose: 0.4 mg Vitamin A (Vitamin A & D Oint Ud Foilpak) 1 ea TOP BID [facility] Last Admin: 05/01/17 10:34 Dose: 1 ea Zolpidem Tartrate (Ambien) 5 mg PO [facility] Last Admin: 04/30/17 21:39 Dose: 5 mg - Labs Labs: 05/01/17 06:58 05/01/17 06:58 PT 24.8 SECONDS (9.7-12.2) H 05/01/17 06:58 INR 2.1 05/01/17 06:58 APTT 31 SECONDS (21-34) 05/01/17 06:58 - Constitutional Appears: Non-toxic, No Acute Distress - Head Exam Head Exam: ATRAUMATIC, NORMAL INSPECTION, NORMOCEPHALIC - Eye Exam Eye Exam: EOMI, Normal appearance - ENT Exam ENT Exam: Mucous Membranes Dry, Normal Exam - Neck Exam Neck Exam: Normal Inspection - Respiratory Exam Respiratory Exam: Clear to Ausculation Bilateral, NORMAL BREATHING PATTERN. absent: Rhonchi, Wheezes - Cardiovascular Exam Cardiovascular Exam: Bradycardia, +S1, +S2. absent: Tachycardia, Clicks, Gallop - GI/Abdominal Exam GI & Abdominal Exam: Soft, Normal Bowel Sounds - Extremities Exam Extremities Exam: Full ROM Additional comments: B/L lower extremity amputation - Neurological Exam Neurological Exam: Alert, Awake, CN II-XII Intact Additional comments: Facial droop resolved, speech mildly slurred - Psychiatric Exam Psychiatric exam: Normal Affect, Normal Mood - Skin Skin Exam: Normal Color, Warm Assessment and Plan - Assessment and Plan (Free Text) Assessment: Patient is a 71 y/o male past medical history of HTN, HLD, multiple CVAs, and recent AKA b/l 2/2 PAD, presents with slurred speech and right facial droop. Plan: 1.TIA r/o cardiac etiology -Continue with lipitor,aspirin -Neurology c/s; EEG scheduled for Thursday 2.Bradycardia - Cardizem dosage was decreased to 120mg ; possibly decrease dosage to 90mg? - HR now in upper 50s - Will continue to monitor blood pressure since Cardizem has been decreased 3. Atrial Fibrillation - Amiodarone - Cardizem - YVES 05/04 scheduled at 2 p.m., dysphagia diet ordered however pt will be NPO starting Thursday evening 4. PAD S/P Bilateral AKA -Daily Coumadin; monitor INR -Gabapentin -Continue Plavix, Aspirin <Luis Brown - Last Filed: 05/05/17 09:29> Objective - Vital Signs/Intake and Output Vital Signs (last 24 hours): Temp Pulse Resp BP Pulse Ox 98.1 F 50 L 20 161/72 H 100 05/05/17 08:55 05/05/17 08:55 05/05/17 08:55 05/05/17 08:55 05/05/17 08:55 - Medications Medications: Current Medications Amiodarone HCl (Cordarone) 200 mg PO DAILY [facility] Last Admin: 05/05/17 09:04 Dose: 200 mg Aspirin (Ecotrin) 81 mg PO DAILY [facility] Last Admin: 05/05/17 09:04 Dose: 81 mg Chlorthalidone (Hygroton) 25 mg PO DAILY [facility] Last Admin: 05/05/17 09:04 Dose: 25 mg Clopidogrel Bisulfate (Plavix) 75 mg PO DAILY [facility] Last Admin: 05/05/17 09:07 Dose: 75 mg Diltiazem HCl (Cardizem Cd) 120 mg PO DAILY [facility] Last Admin: 05/05/17 09:07 Dose: 120 mg Enoxaparin Sodium (Lovenox) 70 mg SC Q12H [facility] Last Admin: 05/03/17 21:17 Dose: 70 mg Finasteride (Proscar) 5 mg PO DAILY [facility] Last Admin: 05/05/17 09:08 Dose: 5 mg Gabapentin (Neurontin) 300 mg PO TID [facility] Last Admin: 05/05/17 09:06 Dose: 300 mg Levetiracetam (Keppra) 500 mg PO BID [facility] Last Admin: 05/05/17 09:08 Dose: 500 mg Losartan Potassium (Cozaar) 25 mg PO DAILY [facility] Last Admin: 05/05/17 09:08 Dose: 25 mg Pantoprazole Sodium (Protonix Inj) 40 mg IVP Q12H [facility] Last Admin: 05/05/17 08:47 Dose: 40 mg Potassium Chloride (Klor-Con 10) 10 meq PO BRK [facility] Last Admin: 05/05/17 08:45 Dose: 10 meq Rosuvastatin Calcium (Crestor) 10 mg PO HS [facility] Last Admin: 05/04/17 21:38 Dose: 10 mg Tamsulosin HCl (Flomax) 0.4 mg PO DAILY [facility] Last Admin: 05/05/17 09:08 Dose: 0.4 mg Vitamin A (Vitamin A & D Oint Ud Foilpak) 1 ea TOP BID [facility] Last Admin: 05/05/17 09:09 Dose: 1 ea Zolpidem Tartrate (Ambien) 5 mg PO HS [facility] Last Admin: 05/04/17 21:38 Dose: 5 mg - Labs Labs: 05/05/17 07:59 05/05/17 07:59 PT 15.1 SECONDS (9.7-12.2) H 05/05/17 07:59 INR 1.3 05/05/17 07:59 APTT 24 SECONDS (21-34) D 05/05/17 07:59 Assessment and Plan (1) Bradycardia Status: Acute (2) Atrial fibrillation Status: Acute (3) CVA (cerebral vascular accident) Status: Acute (4) NSVT (nonsustained ventricular tachycardia) Status: Acute (5) HTN (hypertension) Status: Chronic (6) Peripheral arterial occlusive disease Status: Resolved Attending/Attestation - Attestation I have personally seen and examined this patient.: Yes I have fully participated in the care of the patient.: Yes I have reviewed all pertinent clinical information, including history, physical exam and plan: Yes
[2017-05-01] MEDS ORDERED: Magnesium Sulfate 1 gm in D5W 1 GM/100 ML BAG IVPB SCH (15:00)
[2017-05-01] MEDS: Potassium Chloride 10 mEq ER Tab PO SCH (17:46)
--- NOTE | 2017-05-01 17:56 | CP.PCM.PN ---
Subjective - Date & Time of Evaluation Date of Evaluation: 05/01/17 Time of Evaluation: 11:00 - Subjective Subjective: clinically same Objective - Vital Signs/Intake and Output Vital Signs (last 24 hours): Temp Pulse Resp BP Pulse Ox 98.4 F 61 20 139/74 100 05/01/17 15:19 05/01/17 16:00 05/01/17 15:19 05/01/17 15:19 05/01/17 15:19 Intake and Output: 05/01/17 05/01/17 06:59 18:59 Intake Total 1120 Output Total 1400 Balance -280 - Medications Medications: Current Medications Amiodarone HCl (Cordarone) 200 mg PO DAILY [facility] Last Admin: 05/01/17 10:34 Dose: 200 mg Aspirin (Ecotrin) 81 mg PO DAILY [facility] Last Admin: 05/01/17 10:34 Dose: 81 mg Chlorthalidone (Hygroton) 25 mg PO DAILY [facility] Last Admin: 05/01/17 10:34 Dose: 25 mg Clopidogrel Bisulfate (Plavix) 75 mg PO DAILY [facility] Last Admin: 05/01/17 10:34 Dose: 75 mg Diltiazem HCl (Cardizem Cd) 120 mg PO DAILY [facility] Last Admin: 05/01/17 10:34 Dose: 120 mg Finasteride (Proscar) 5 mg PO DAILY [facility] Last Admin: 05/01/17 14:50 Dose: 5 mg Gabapentin (Neurontin) 300 mg PO TID [facility] Last Admin: 05/01/17 17:46 Dose: 300 mg Levetiracetam (Keppra) 500 mg PO BID [facility] Last Admin: 05/01/17 17:46 Dose: 500 mg Losartan Potassium (Cozaar) 25 mg PO DAILY [facility] Last Admin: 05/01/17 10:33 Dose: 25 mg Pantoprazole Sodium (Protonix Inj) 40 mg IVP Q12H [facility] Last Admin: 05/01/17 06:37 Dose: 40 mg Potassium Chloride (Klor-Con 10) 10 meq PO DAILY [facility] Last Admin: 05/01/17 17:46 Dose: 10 meq Rosuvastatin Calcium (Crestor) 10 mg PO HS [facility] Last Admin: 04/30/17 21:40 Dose: 10 mg Tamsulosin HCl (Flomax) 0.4 mg PO DAILY [facility] Last Admin: 11/24/17 10:34 Dose: 0.4 mg Vitamin A (Vitamin A & D Oint Ud Foilpak) 1 ea TOP BID [facility] Last Admin: 05/01/17 17:46 Dose: 1 ea Zolpidem Tartrate (Ambien) 5 mg PO HS [facility] Last Admin: 04/30/17 21:39 Dose: 5 mg - Labs Labs: 05/01/17 06:58 05/01/17 06:58 PT 24.8 SECONDS (9.7-12.2) H 05/01/17 06:58 INR 2.1 05/01/17 06:58 APTT 31 SECONDS (21-34) 05/01/17 06:58 - Constitutional Appears: Well - Head Exam Head Exam: ATRAUMATIC, NORMAL INSPECTION, NORMOCEPHALIC - Eye Exam Eye Exam: EOMI, Normal appearance, PERRL Pupil Exam: NORMAL ACCOMODATION, PERRL - ENT Exam ENT Exam: Mucous Membranes Moist, Normal Exam - Neck Exam Neck Exam: Full ROM, Normal Inspection. absent: Lymphadenopathy - Respiratory Exam Respiratory Exam: Decreased Breath Sounds - Cardiovascular Exam Cardiovascular Exam: REGULAR RHYTHM, +S1, +S2 - GI/Abdominal Exam GI & Abdominal Exam: Soft, Diminished Bowel Sounds - Rectal Exam Rectal Exam: Deferred Assessment and Plan (1) Bradycardia Status: Acute (2) CVA (cerebral vascular accident) Status: Acute (3) TIA (transient ischemic attack) Status: Acute (4) Atrial fibrillation Status: Acute (5) Elevated CK Status: Acute (6) Knee pain, left Status: Acute (7) Medicine refill Status: Acute (8) NSVT (nonsustained ventricular tachycardia) Status: Acute (9) Preop cardiovascular exam Status: Acute (10) Rhabdomyolysis Status: Acute (11) CKD (chronic kidney disease) Status: Chronic (12) HTN (hypertension) Status: Chronic (13) HTN (hypertension), malignant Status: Chronic (14) Critical lower limb ischemia Status: Resolved (15) Peripheral arterial occlusive disease Status: Resolved (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 Patient fit for discharge. Continue all medications. Continue supportive care.
[2017-05-02] MEDS: diltiaZEM 120 mg/24 Hours CD Cap PO SCH (11:01)
[2017-05-02] MEDS: Potassium Chloride 10 mEq ER Tab PO SCH ×2 (11:02→13:48)
[2017-05-02] MEDS: Vitamins A & D Oint UD Foilpak TOP SCH ×2 (11:02→17:13)
--- NOTE | 2017-05-02 14:32 | CP.PCM.PN ---
Subjective - Date & Time of Evaluation Date of Evaluation: 05/02/17 Time of Evaluation: 09:40 - Subjective Subjective: clinically same Objective - Vital Signs/Intake and Output Vital Signs (last 24 hours): Temp Pulse Resp BP Pulse Ox 97.6 F 58 L 18 124/71 100 05/02/17 08:33 05/02/17 12:20 05/02/17 08:33 05/02/17 08:33 05/02/17 08:33 Intake and Output: 05/02/17 05/02/17 06:59 18:59 Intake Total 320 Output Total 1650 310 Balance -1330 -310 - Medications Medications: Current Medications Amiodarone HCl (Cordarone) 200 mg PO DAILY [facility] Last Admin: 05/02/17 11:01 Dose: 200 mg Aspirin (Ecotrin) 81 mg PO DAILY [facility] Last Admin: 05/02/17 11:02 Dose: 81 mg Chlorthalidone (Hygroton) 25 mg PO DAILY [facility] Last Admin: 05/02/17 11:02 Dose: 25 mg Clopidogrel Bisulfate (Plavix) 75 mg PO DAILY [facility] Last Admin: 05/02/17 11:01 Dose: 75 mg Diltiazem HCl (Cardizem Cd) 120 mg PO DAILY [facility] Last Admin: 05/02/17 11:01 Dose: 120 mg Finasteride (Proscar) 5 mg PO DAILY [facility] Last Admin: 05/02/17 11:01 Dose: 5 mg Gabapentin (Neurontin) 300 mg PO TID [facility] Last Admin: 05/02/17 11:01 Dose: 300 mg Levetiracetam (Keppra) 500 mg PO BID [facility] Last Admin: 05/02/17 11:02 Dose: 500 mg Losartan Potassium (Cozaar) 25 mg PO DAILY [facility] Last Admin: 05/02/17 11:01 Dose: 25 mg Pantoprazole Sodium (Protonix Inj) 40 mg IVP Q12H [facility] Last Admin: 05/02/17 08:37 Dose: 40 mg Potassium Chloride (Klor-Con 10) 10 meq PO DAILY [facility] Last Admin: 05/02/17 11:02 Dose: 10 meq Potassium Chloride (Klor-Con 10) 10 meq PO BRK [facility] Last Admin: 05/02/17 13:48 Dose: Not Given Rosuvastatin Calcium (Crestor) 10 mg PO HS [facility] Last Admin: 05/01/17 22:04 Dose: 10 mg Tamsulosin HCl (Flomax) 0.4 mg PO DAILY [facility] Last Admin: 05/02/17 11:02 Dose: 0.4 mg Vitamin A (Vitamin A & D Oint Ud Foilpak) 1 ea TOP BID [facility] Last Admin: 05/02/17 11:02 Dose: 1 ea Zolpidem Tartrate (Ambien) 5 mg PO HS [facility] Last Admin: 05/01/17 22:04 Dose: 5 mg - Labs Labs: 05/01/17 06:58 05/01/17 06:58 PT 24.8 SECONDS (9.7-12.2) H 05/01/17 06:58 INR 2.1 05/01/17 06:58 APTT 31 SECONDS (21-34) 05/01/17 06:58 - Constitutional Appears: Well - Head Exam Head Exam: ATRAUMATIC, NORMAL INSPECTION, NORMOCEPHALIC - Eye Exam Eye Exam: EOMI, Normal appearance, PERRL Pupil Exam: NORMAL ACCOMODATION, PERRL - ENT Exam ENT Exam: Mucous Membranes Moist, Normal Exam - Neck Exam Neck Exam: Full ROM, Normal Inspection. absent: Lymphadenopathy - Respiratory Exam Respiratory Exam: Decreased Breath Sounds - Cardiovascular Exam Cardiovascular Exam: REGULAR RHYTHM, +S1, +S2 - GI/Abdominal Exam GI & Abdominal Exam: Soft, Diminished Bowel Sounds - Rectal Exam Rectal Exam: Deferred Assessment and Plan (1) Bradycardia Status: Acute (2) CVA (cerebral vascular accident) Status: Acute (3) TIA (transient ischemic attack) Status: Acute (4) Atrial fibrillation Status: Acute (5) Elevated CK Status: Acute (6) Knee pain, left Status: Acute (7) Medicine refill Status: Acute (8) NSVT (nonsustained ventricular tachycardia) Status: Acute (9) Preop cardiovascular exam Status: Acute (10) Rhabdomyolysis Status: Acute (11) CKD (chronic kidney disease) Status: Chronic (12) HTN (hypertension) Status: Chronic (13) HTN (hypertension), malignant Status: Chronic (14) Critical lower limb ischemia Status: Resolved (15) Peripheral arterial occlusive disease Status: Resolved (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 Patient better. Patient fit for discharge.
[2017-05-02 16:48] LABS: INR 1.8
[2017-05-02] MEDS: Enoxaparin 80 mg Syringe SC SCH (23:04)
[2017-05-03 07:43] LABS: INR 1.7
[2017-05-03] MEDS: Potassium Chloride 10 mEq ER Tab PO SCH ×2 (09:11→11:12)
[2017-05-03] MEDS: diltiaZEM 120 mg/24 Hours CD Cap PO SCH (09:12)
[2017-05-03] MEDS: Enoxaparin 80 mg Syringe SC SCH ×2 (09:15→21:17)
[2017-05-03] MEDS: Vitamins A & D Oint UD Foilpak TOP SCH ×2 (12:00→17:17)
--- NOTE | 2017-05-03 16:56 | CP.PCM.PN ---
Subjective - Date & Time of Evaluation Date of Evaluation: 05/03/17 Time of Evaluation: 10:00 - Subjective Subjective: clinically same Objective - Vital Signs/Intake and Output Vital Signs (last 24 hours): Temp Pulse Resp BP Pulse Ox 97.9 F 53 L 20 120/53 L 100 05/03/17 16:00 05/03/17 16:00 05/03/17 16:00 05/03/17 16:00 05/03/17 16:00 Intake and Output: 05/03/17 05/03/17 06:59 18:59 Intake Total 320 400 Output Total 650 320 Balance -330 80 - Medications Medications: Current Medications Amiodarone HCl (Cordarone) 200 mg PO DAILY [facility] Last Admin: 05/03/17 09:11 Dose: 200 mg Aspirin (Ecotrin) 81 mg PO DAILY [facility] Last Admin: 05/03/17 09:12 Dose: 81 mg Chlorthalidone (Hygroton) 25 mg PO DAILY [facility] Last Admin: 05/03/17 09:13 Dose: 25 mg Clopidogrel Bisulfate (Plavix) 75 mg PO DAILY [facility] Last Admin: 05/03/17 09:11 Dose: 75 mg Diltiazem HCl (Cardizem Cd) 120 mg PO DAILY [facility] Last Admin: 05/03/17 09:12 Dose: 120 mg Enoxaparin Sodium (Lovenox) 70 mg SC Q12H [facility] Last Admin: 05/03/17 09:15 Dose: 70 mg Finasteride (Proscar) 5 mg PO DAILY [facility] Last Admin: 05/03/17 12:00 Dose: 5 mg Gabapentin (Neurontin) 300 mg PO TID [facility] Last Admin: 05/03/17 13:57 Dose: 300 mg Levetiracetam (Keppra) 500 mg PO BID [facility] Last Admin: 05/03/17 09:12 Dose: 500 mg Losartan Potassium (Cozaar) 25 mg PO DAILY [facility] Last Admin: 05/03/17 09:12 Dose: 25 mg Pantoprazole Sodium (Protonix Inj) 40 mg IVP Q12H [facility] Last Admin: 05/03/17 09:08 Dose: 40 mg Potassium Chloride (Klor-Con 10) 10 meq PO DAILY [facility] Last Admin: 05/03/17 11:12 Dose: Not Given Potassium Chloride (Klor-Con 10) 10 meq PO BRK [facility] Last Admin: 05/03/17 09:11 Dose: 10 meq Rosuvastatin Calcium (Crestor) 10 mg PO HS [facility] Last Admin: 05/02/17 21:12 Dose: 10 mg Tamsulosin HCl (Flomax) 0.4 mg PO DAILY [facility] Last Admin: 05/03/17 09:11 Dose: 0.4 mg Vitamin A (Vitamin A & D Oint Ud Foilpak) 1 ea TOP BID [facility] Last Admin: 05/03/17 12:00 Dose: 1 ea Zolpidem Tartrate (Ambien) 5 mg PO HS [facility] Last Admin: 05/02/17 21:12 Dose: 5 mg - Labs Labs: 05/01/17 06:58 05/01/17 06:58 PT 20.0 SECONDS (9.7-12.2) H 05/03/17 07:27 INR 1.7 05/03/17 07:27 APTT 31 SECONDS (21-34) 05/01/17 06:58 - Constitutional Appears: Well - Head Exam Head Exam: ATRAUMATIC, NORMAL INSPECTION, NORMOCEPHALIC - Eye Exam Eye Exam: EOMI, Normal appearance, PERRL Pupil Exam: NORMAL ACCOMODATION, PERRL - ENT Exam ENT Exam: Mucous Membranes Moist, Normal Exam - Neck Exam Neck Exam: Full ROM, Normal Inspection. absent: Lymphadenopathy - Respiratory Exam Respiratory Exam: Clear to Ausculation Bilateral, NORMAL BREATHING PATTERN - Cardiovascular Exam Cardiovascular Exam: REGULAR RHYTHM, +S1, +S2. absent: Murmur - GI/Abdominal Exam GI & Abdominal Exam: Soft, Normal Bowel Sounds. absent: Tenderness - Rectal Exam Rectal Exam: Deferred - Extremities Exam Extremities Exam: Full ROM, Normal Capillary Refill, Normal Inspection. absent : Joint Swelling, Pedal Edema Assessment and Plan (1) Bradycardia Status: Acute (2) CVA (cerebral vascular accident) Status: Acute (3) TIA (transient ischemic attack) Status: Acute (4) Atrial fibrillation Status: Acute (5) Elevated CK Status: Acute (6) Knee pain, left Status: Acute (7) Medicine refill Status: Acute (8) NSVT (nonsustained ventricular tachycardia) Status: Acute (9) Preop cardiovascular exam Status: Acute (10) Rhabdomyolysis Status: Acute (11) CKD (chronic kidney disease) Status: Chronic (12) HTN (hypertension) Status: Chronic (13) HTN (hypertension), malignant Status: Chronic (14) Critical lower limb ischemia Status: Resolved (15) Peripheral arterial occlusive disease Status: Resolved (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 Patient better. Patient fit for discharge.
[2017-05-04 00:59] LABS: HEMATOCRIT 28.1 % (35.0-51.0); MEAN CELL VOLUME 74.8 fL (80.0-94.0); MEAN CORPUSCULAR HEMOGLOBIN 25.1 pg (27.0-31.0); MEAN CORPUSCULAR HGB CONC 33.6 g/dL (33.0-37.0); MEAN PLATELET VOLUME 8.4 fL (7.2-11.7); RED CELL DISTRIBUTION WIDTH 15.4 % (11.5-14.5); WHITE BLOOD COUNT 4.5 K/uL (4.8-10.8)
[2017-05-04 07:32] LABS: INR 1.5
--- NOTE | 2017-05-04 07:55 | CP.PCM.PN ---
<Marquez Marie - Last Filed: 05/04/17 10:21> Subjective - Date & Time of Evaluation Date of Evaluation: 05/04/17 Time of Evaluation: 07:00 - Subjective Subjective: Patient seen and examined at bedside in no acute distress with no complaints. States he feels great and is aware of his YVES today. Admits to episode of bloody stool patient. Slurred speech and facial droop continue to improve.Denies shortness of breath, chest pain, dizziness, weakness. Objective - Vital Signs/Intake and Output Vital Signs (last 24 hours): Temp Pulse Resp BP Pulse Ox 98.4 F 52 L 20 134/62 97 05/03/17 23:35 05/04/17 04:34 05/03/17 23:35 05/03/17 23:35 05/03/17 23:35 Intake and Output: 05/04/17 05/04/17 06:59 18:59 Intake Total 320 Output Total 1000 Balance -680 - Medications Medications: Current Medications Amiodarone HCl (Cordarone) 200 mg PO DAILY [facility] Last Admin: 05/03/17 09:11 Dose: 200 mg Aspirin (Ecotrin) 81 mg PO DAILY [facility] Last Admin: 05/03/17 09:12 Dose: 81 mg Chlorthalidone (Hygroton) 25 mg PO DAILY [facility] Last Admin: 05/03/17 09:13 Dose: 25 mg Clopidogrel Bisulfate (Plavix) 75 mg PO DAILY [facility] Last Admin: 05/03/17 09:11 Dose: 75 mg Diltiazem HCl (Cardizem Cd) 120 mg PO DAILY [facility] Last Admin: 05/03/17 09:12 Dose: 120 mg Enoxaparin Sodium (Lovenox) 70 mg SC Q12H [facility] Last Admin: 05/03/17 21:17 Dose: 70 mg Finasteride (Proscar) 5 mg PO DAILY [facility] Last Admin: 05/03/17 12:00 Dose: 5 mg Gabapentin (Neurontin) 300 mg PO TID [facility] Last Admin: 05/03/17 17:17 Dose: 300 mg Levetiracetam (Keppra) 500 mg PO BID [facility] Last Admin: 05/03/17 17:17 Dose: 500 mg Losartan Potassium (Cozaar) 25 mg PO DAILY [facility] Last Admin: 05/03/17 09:12 Dose: 25 mg Pantoprazole Sodium (Protonix Inj) 40 mg IVP Q12H [facility] Last Admin: 05/03/17 19:25 Dose: 40 mg Potassium Chloride (Klor-Con 10) 10 meq PO DAILY [facility] Last Admin: 05/03/17 11:12 Dose: Not Given Potassium Chloride (Klor-Con 10) 10 meq PO BRK [facility] Last Admin: 05/03/17 09:11 Dose: 10 meq Rosuvastatin Calcium (Crestor) 10 mg PO HS [facility] Last Admin: 05/02/17 21:12 Dose: 10 mg Tamsulosin HCl (Flomax) 0.4 mg PO DAILY [facility] Last Admin: 05/03/17 09:11 Dose: 0.4 mg Vitamin A (Vitamin A & D Oint Ud Foilpak) 1 ea TOP BID [facility] Last Admin: 05/03/17 17:17 Dose: 1 ea Zolpidem Tartrate (Ambien) 5 mg PO HS [facility] Last Admin: 05/03/17 21:17 Dose: 5 mg - Labs Labs: 05/04/17 00:57 05/01/17 06:58 PT 16.7 SECONDS (9.7-12.2) H 05/04/17 07:02 INR 1.5 05/04/17 07:02 APTT 31 SECONDS (21-34) 05/01/17 06:58 - Constitutional Appears: Non-toxic, No Acute Distress - Head Exam Head Exam: ATRAUMATIC, NORMAL INSPECTION, NORMOCEPHALIC - Eye Exam Eye Exam: EOMI, Normal appearance - ENT Exam ENT Exam: Mucous Membranes Moist, Normal Exam - Respiratory Exam Respiratory Exam: Clear to Ausculation Bilateral, NORMAL BREATHING PATTERN. absent: Wheezes - Cardiovascular Exam Cardiovascular Exam: REGULAR RHYTHM, +S1, +S2 - GI/Abdominal Exam GI & Abdominal Exam: Soft, Normal Bowel Sounds - Extremities Exam Additional comments: B/L lower extremity amputation - Back Exam Back Exam: NORMAL INSPECTION - Neurological Exam Neurological Exam: Alert, Awake, Oriented x3 - Psychiatric Exam Psychiatric exam: Normal Affect, Normal Mood - Skin Skin Exam: Normal Color, Warm Assessment and Plan - Assessment and Plan (Free Text) Assessment: Patient is a 71 y/o male past medical history of HTN, HLD, multiple CVAs, and recent AKA b/l 2/2 PAD, presents with slurred speech and right facial droop. Plan: 1.TIA r/o cardiac etiology -Continue with lipitor,aspirin -Neurology c/s; EEG scheduled for today 2.Bradycardia - Continue with cardizem 120mg - HR now in upper 50s - Continue to monitor BP 3. Atrial Fibrillation - Amiodarone - Cardizem - Coumadin discontinued, INR subtherapeutic at 1.5 - YVES 05/04 scheduled at 2 p.m.; patient NPO 4. PAD S/P Bilateral AKA -Gabapentin -Continue Aspirin -Lovenox held due to GI bleed <Luis Brown - Last Filed: 05/05/17 09:29> Objective - Vital Signs/Intake and Output Vital Signs (last 24 hours): Temp Pulse Resp BP Pulse Ox 98.1 F 50 L 20 161/72 H 100 05/05/17 08:55 05/05/17 08:55 05/05/17 08:55 05/05/17 08:55 05/05/17 08:55 - Medications Medications: Current Medications Amiodarone HCl (Cordarone) 200 mg PO DAILY [facility] Last Admin: 05/05/17 09:04 Dose: 200 mg Aspirin (Ecotrin) 81 mg PO DAILY [facility] Last Admin: 05/05/17 09:04 Dose: 81 mg Chlorthalidone (Hygroton) 25 mg PO DAILY [facility] Last Admin: 05/05/17 09:04 Dose: 25 mg Clopidogrel Bisulfate (Plavix) 75 mg PO DAILY [facility] Last Admin: 05/05/17 09:07 Dose: 75 mg Diltiazem HCl (Cardizem Cd) 120 mg PO DAILY [facility] Last Admin: 05/05/17 09:07 Dose: 120 mg Enoxaparin Sodium (Lovenox) 70 mg SC Q12H [facility] Last Admin: 05/03/17 21:17 Dose: 70 mg Finasteride (Proscar) 5 mg PO DAILY [facility] Last Admin: 05/05/17 09:08 Dose: 5 mg Gabapentin (Neurontin) 300 mg PO TID [facility] Last Admin: 05/05/17 09:06 Dose: 300 mg Levetiracetam (Keppra) 500 mg PO BID [facility] Last Admin: 05/05/17 09:08 Dose: 500 mg Losartan Potassium (Cozaar) 25 mg PO DAILY [facility] Last Admin: 05/05/17 09:08 Dose: 25 mg Pantoprazole Sodium (Protonix Inj) 40 mg IVP Q12H [facility] Last Admin: 05/05/17 08:47 Dose: 40 mg Potassium Chloride (Klor-Con 10) 10 meq PO BRK [facility] Last Admin: 05/05/17 08:45 Dose: 10 meq Rosuvastatin Calcium (Crestor) 10 mg PO HS [facility] Last Admin: 05/04/17 21:38 Dose: 10 mg Tamsulosin HCl (Flomax) 0.4 mg PO DAILY [facility] Last Admin: 05/05/17 09:08 Dose: 0.4 mg Vitamin A (Vitamin A & D Oint Ud Foilpak) 1 ea TOP BID [facility] Last Admin: 05/05/17 09:09 Dose: 1 ea Zolpidem Tartrate (Ambien) 5 mg PO HS [facility] Last Admin: 05/04/17 21:38 Dose: 5 mg - Labs Labs: 05/05/17 07:59 05/05/17 07:59 PT 15.1 SECONDS (9.7-12.2) H 05/05/17 07:59 INR 1.3 05/05/17 07:59 APTT 24 SECONDS (21-34) D 05/05/17 07:59 Assessment and Plan (1) Bradycardia Status: Acute (2) Atrial fibrillation Status: Acute (3) CVA (cerebral vascular accident) Status: Acute (4) NSVT (nonsustained ventricular tachycardia) Status: Acute (5) HTN (hypertension) Status: Chronic (6) Peripheral arterial occlusive disease Status: Resolved Attending/Attestation - Attestation I have personally seen and examined this patient.: Yes I have fully participated in the care of the patient.: Yes I have reviewed all pertinent clinical information, including history, physical exam and plan: Yes Notes (Text): 05/05/17 09:29 YVES today
[2017-05-04 08:24] LABS: ALB/GLOB RATIO 0.8 (1.0-2.1); ALKALINE PHOSPHATASE 69 U/L (38-126); ALT/SGPT 28 U/L (21-72); AST/SGOT 18 U/L (17-59); BILIRUBIN,TOTAL 0.4 mg/dL (0.2-1.3); BLOOD UREA NITROGEN 17 mg/dL (9-20); CALCIUM 7.9 mg/dl (8.6-10.4); CARBON DIOXIDE 28 mmol/L (22-30); CHLORIDE 103 mmol/L (98-107); GFR AFRICAN-AMERICAN > 60; GLUCOSE,RANDOM 70 mg/dL (75-110); MAGNESIUM 1.8 mg/dL (1.6-2.3); PHOSPHOROUS 3.9 mg/dL (2.5-4.5); POTASSIUM 3.1 mmol/L (3.6-5.2); SODIUM 139 mmol/L (132-148); TOTAL PROTEIN 5.8 g/dL (6.3-8.3)
[2017-05-04] MEDS: Potassium Chloride 10 mEq ER Tab PO SCH ×2 (08:42→09:27)
[2017-05-04] MEDS: Vitamins A & D Oint UD Foilpak TOP SCH ×2 (09:27→17:25)
[2017-05-04] MEDS: diltiaZEM 120 mg/24 Hours CD Cap PO SCH (09:27)
[2017-05-04] MEDS ORDERED: Lidocaine 4% (Laryng-O-Jet) Kit MM ONE (12:59)
[2017-05-04] MEDS ORDERED: Midazolam 2 MG/2 ML VIAL ONE ×2 (13:00)
--- NOTE | 2017-05-04 16:17 | CP.PCM.PN ---
Subjective - Date & Time of Evaluation Date of Evaluation: 05/04/17 Time of Evaluation: 08:00 - Subjective Subjective: PGY2 Resident - Medicine Progress Note Patient seen and examined. No acute distress. No overnight events. Patient with minimal R facial droop and minimal slurred speech (much improved since admission ). He is AAOx3 and is in great spirits today, reports he is feeling better. Previous +FOB. Denies fever, chills, headache, chest pain, palpitations, dyspnea , cough, abdominal pain, nausea/vomiting, diarrhea/constipation, dysuria, urinary frequency, change in urinary stream, or any additional acute complaints. Objective - Vital Signs/Intake and Output Vital Signs (last 24 hours): Temp Pulse Resp BP Pulse Ox 98.4 F 56 L 18 126/67 100 05/04/17 07:50 05/04/17 08:00 05/04/17 07:50 05/04/17 07:50 05/04/17 07:50 Intake and Output: 05/04/17 05/04/17 06:59 18:59 Intake Total 320 Output Total 1000 Balance -680 - Medications Medications: Current Medications Amiodarone HCl (Cordarone) 200 mg PO DAILY [facility] Last Admin: 05/04/17 09:27 Dose: 200 mg Aspirin (Ecotrin) 81 mg PO DAILY [facility] Last Admin: 05/03/17 09:12 Dose: 81 mg Chlorthalidone (Hygroton) 25 mg PO DAILY [facility] Last Admin: 05/04/17 09:27 Dose: 25 mg Clopidogrel Bisulfate (Plavix) 75 mg PO DAILY [facility] Last Admin: 05/03/17 09:11 Dose: 75 mg Diltiazem HCl (Cardizem Cd) 120 mg PO DAILY [facility] Last Admin: 05/04/17 09:27 Dose: 120 mg Enoxaparin Sodium (Lovenox) 70 mg SC Q12H [facility] Last Admin: 05/03/17 21:17 Dose: 70 mg Finasteride (Proscar) 5 mg PO DAILY [facility] Last Admin: 05/04/17 09:27 Dose: 5 mg Gabapentin (Neurontin) 300 mg PO TID [facility] Last Admin: 05/04/17 14:38 Dose: Not Given Levetiracetam (Keppra) 500 mg PO BID [facility] Last Admin: 05/04/17 09:27 Dose: 500 mg Losartan Potassium (Cozaar) 25 mg PO DAILY [facility] Last Admin: 05/04/17 09:27 Dose: 25 mg Pantoprazole Sodium (Protonix Inj) 40 mg IVP Q12H [facility] Last Admin: 05/04/17 08:42 Dose: 40 mg Potassium Chloride (Klor-Con 10) 10 meq PO DAILY [facility] Last Admin: 05/04/17 09:27 Dose: 10 meq Potassium Chloride (Klor-Con 10) 10 meq PO BRK [facility] Last Admin: 05/04/17 08:42 Dose: 10 meq Rosuvastatin Calcium (Crestor) 10 mg PO HS [facility] Last Admin: 05/02/17 21:12 Dose: 10 mg Tamsulosin HCl (Flomax) 0.4 mg PO DAILY [facility] Last Admin: 05/04/17 09:27 Dose: 0.4 mg Vitamin A (Vitamin A & D Oint Ud Foilpak) 1 ea TOP BID [facility] Last Admin: 05/04/17 09:27 Dose: 1 ea Zolpidem Tartrate (Ambien) 5 mg PO HS [facility] Last Admin: 05/03/17 21:17 Dose: 5 mg - Labs Labs: 05/04/17 00:57 05/04/17 07:41 PT 16.7 SECONDS (9.7-12.2) H 05/04/17 07:02 INR 1.5 05/04/17 07:02 APTT 34 SECONDS (21-34) 05/04/17 07:02 - Additional Findings Additional findings: - Constitutional Appears: Non-toxic, No Acute Distress - Head Exam Head Exam: ATRAUMATIC, NORMAL INSPECTION, NORMOCEPHALIC - Eye Exam Eye Exam: EOMI - ENT Exam ENT Exam: Mucous Membranes Moist - Neck Exam Neck Exam: Full ROM, Normal Inspection - Respiratory Exam Respiratory Exam: NORMAL BREATHING PATTERN. absent: Respiratory Distress - Cardiovascular Exam Cardiovascular Exam: Regular Rate, +S1, +S2 - GI/Abdominal Exam GI & Abdominal Exam: Soft, Normal Bowel Sounds. absent: Tenderness - Extremities Exam Extremities Exam: Full ROM, Normal Inspection -bilateral LE BKA. 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 f/u results. Lovenox 70mg SC Q12H. 05/01: Planned for YVES today, patient is NPO. 04/29: Continue with lipitor, aspirin -IV hydration -Brain MRI - acute infarct, posterior L coronal radiata -carotid dopplers negative -neurology consult. Dr. Fitch. dorinda appreciated. -cardio consult. Dr. Benz. seth appreciated. -pureed diet as per swallow eval -asa 81 mg po daily -plavix 75 mg daily -PT/OT ordered; patient will need extensive rehab but daughter wants to bring patient home instead of retirement facility -oxycodone for pain prn severe pain hx of HTN 05/04: BP WNL today. -continue losartan daily -continue chlorthalidone daily -continue cardizem daily Atrial Fibrillation 05/04: YVES performed today. f/u results. Lovenox 70mg SC Q12H. 05/01: Planned for YVES today, patient is NPO. 04/29: Continue Coumadin 4mg PO qD; patient is therapeutic w/ INR of 2.7 04/27: plan for possible YVES; however no indication from notes that patient will be receiving YVES -cardiology currently has no plan to take patient for YVES but will benefit from this before leaving for retirement facility -Continue Coumadin 4mg PO qD; patient is therapeutic w/ INR of 2.0 -cardio consult. Dr. Faraz. seth appreciated. Bradycardia - Cardizem dosage was decreased to 120 - HR now in upper 50s-60s - Will continue to monitor - Monitor blood pressure since cardizem has been decreased; possibly increase cozaar if necessary Insomnia -continue ambien daily PO HS Electrolyte imbalance 05/04: Hypokalemia K3.1 -> KCl 40 x2 doses + Mag sulfate x2 bags (Mg 1.8) 05/01: Hypokalemia K3.5 -> KCl 40 + Mag sulfate x2bags (Mg 1.6) 04/29: Hypokalemia K3.4 -> will replete -Hypokalemia, 3.1 today; will replete GI/DVT -protonix daily BID -SCDs -Lovenox 70mg SC Q12H -Diet: pureed -f/u stool occult blood was positive; however hgb is stable and patient is on multiple blood thinners Discharge Planning: Recommendation is for rehab and daughter is agreeing; patients family is requesting [facility] which they are amenable to -patient will also need to be fitted for prosthesis, physical therapy is looking into protocol for having patient measured. Case discussed with attending. All medical management as per Dr. Inocencio Vines
[2017-05-04] MEDS: Magnesium Sulfate 1 gm in D5W 1 GM/100 ML BAG IVPB SCH ×2 (16:48→17:24)
[2017-05-04] MEDS: Potassium Chloride 20 mEq/15 ml LIQ UD PO SCH ×2 (17:25→22:07)
[2017-05-04] MEDS ORDERED: Potassium Chloride 20 mEq ER Tab PO STA (19:31)
--- NOTE | 2017-05-04 20:09 | CP.PCM.PN ---
Subjective - Date & Time of Evaluation Date of Evaluation: 05/04/17 Time of Evaluation: 10:40 - Subjective Subjective: clinically same Objective - Vital Signs/Intake and Output Vital Signs (last 24 hours): Temp Pulse Resp BP Pulse Ox 97.8 F 53 L 16 98/55 L 100 05/04/17 16:00 05/04/17 16:00 05/04/17 16:00 05/04/17 16:00 05/04/17 16:00 - Medications Medications: Current Medications Amiodarone HCl (Cordarone) 200 mg PO DAILY [facility] Last Admin: 05/04/17 09:27 Dose: 200 mg Aspirin (Ecotrin) 81 mg PO DAILY [facility] Last Admin: 05/03/17 09:12 Dose: 81 mg Chlorthalidone (Hygroton) 25 mg PO DAILY [facility] Last Admin: 05/04/17 09:27 Dose: 25 mg Clopidogrel Bisulfate (Plavix) 75 mg PO DAILY [facility] Last Admin: 05/03/17 09:11 Dose: 75 mg Diltiazem HCl (Cardizem Cd) 120 mg PO DAILY [facility] Last Admin: 05/04/17 09:27 Dose: 120 mg Enoxaparin Sodium (Lovenox) 70 mg SC Q12H [facility] Last Admin: 05/03/17 21:17 Dose: 70 mg Finasteride (Proscar) 5 mg PO DAILY [facility] Last Admin: 05/04/17 09:27 Dose: 5 mg Gabapentin (Neurontin) 300 mg PO TID [facility] Last Admin: 05/04/17 17:25 Dose: 300 mg Levetiracetam (Keppra) 500 mg PO BID [facility] Last Admin: 05/04/17 17:25 Dose: 500 mg Losartan Potassium (Cozaar) 25 mg PO DAILY [facility] Last Admin: 05/04/17 09:27 Dose: 25 mg Pantoprazole Sodium (Protonix Inj) 40 mg IVP Q12H [facility] Last Admin: 05/04/17 18:58 Dose: 40 mg Potassium Chloride (Klor-Con 10) 10 meq PO BRK [facility] Last Admin: 05/04/17 08:42 Dose: 10 meq Potassium Chloride (Potassium Chloride Oral Soln) 40 meq PO Q5H [facility] Stop: 05/04/17 23:01 Last Admin: 05/04/17 17:25 Dose: 40 meq Rosuvastatin Calcium (Crestor) 10 mg PO HS [facility] Last Admin: 05/02/17 21:12 Dose: 10 mg Tamsulosin HCl (Flomax) 0.4 mg PO DAILY [facility] Last Admin: 05/04/17 09:27 Dose: 0.4 mg Vitamin A (Vitamin A & D Oint Ud Foilpak) 1 ea TOP BID [facility] Last Admin: 05/04/17 17:25 Dose: 1 ea Zolpidem Tartrate (Ambien) 5 mg PO HS [facility] Last Admin: 05/03/17 21:17 Dose: 5 mg - Labs Labs: 05/04/17 00:57 05/04/17 07:41 PT 16.7 SECONDS (9.7-12.2) H 05/04/17 07:02 INR 1.5 05/04/17 07:02 APTT 34 SECONDS (21-34) 05/04/17 07:02 Assessment and Plan (1) Bradycardia Status: Acute (2) CVA (cerebral vascular accident) Status: Acute (3) TIA (transient ischemic attack) Status: Acute (4) Atrial fibrillation Status: Acute (5) Elevated CK Status: Acute (6) Knee pain, left Status: Acute (7) Medicine refill Status: Acute (8) NSVT (nonsustained ventricular tachycardia) Status: Acute (9) Preop cardiovascular exam Status: Acute (10) Rhabdomyolysis Status: Acute (11) CKD (chronic kidney disease) Status: Chronic (12) HTN (hypertension) Status: Chronic (13) HTN (hypertension), malignant Status: Chronic
[2017-05-05 08:07] LABS: BASO % 0.3 % (0.0-2.0); EOS # 0.1 K/uL (0.0-0.7); EOS % 1.8 % (0.0-4.0); HEMATOCRIT 27.3 % (35.0-51.0); LYMPH # 1.6 K/uL (1.0-4.3); LYMPH % 30.6 % (20.0-40.0); MEAN CELL VOLUME 74.8 fL (80.0-94.0); MEAN CORPUSCULAR HEMOGLOBIN 24.7 pg (27.0-31.0); MEAN CORPUSCULAR HGB CONC 33.1 g/dL (33.0-37.0); MEAN PLATELET VOLUME 8.3 fL (7.2-11.7); MONO # 0.3 K/uL (0.0-0.8); MONO % 5.8 % (0.0-10.0); WHITE BLOOD COUNT 5.2 K/uL (4.8-10.8)
[2017-05-05 08:11] LABS: INR 1.3
[2017-05-05 08:24] LABS: ALB/GLOB RATIO 1.1 (1.0-2.1); ALKALINE PHOSPHATASE 74 U/L (38-126); ALT/SGPT 27 U/L (21-72); AST/SGOT 17 U/L (17-59); BILIRUBIN,TOTAL 0.7 mg/dL (0.2-1.3); BLOOD UREA NITROGEN 15 mg/dL (9-20); CALCIUM 7.9 mg/dl (8.6-10.4); CARBON DIOXIDE 26 mmol/L (22-30); CHLORIDE 107 mmol/L (98-107); GFR AFRICAN-AMERICAN > 60; GLUCOSE,RANDOM 78 mg/dL (75-110); MAGNESIUM 2.1 mg/dL (1.6-2.3); PHOSPHOROUS 3.5 mg/dL (2.5-4.5); SODIUM 139 mmol/L (132-148); TOTAL PROTEIN 5.2 g/dL (6.3-8.3)
--- NOTE | 2017-05-05 08:25 | CP.PCM.PN ---
Subjective - Date & Time of Evaluation Date of Evaluation: 05/05/17 Time of Evaluation: 07:00 - Subjective Subjective: Patient seen and examined at bedside with no acute complaints. States he is feeling well. Denies chest pain, shortness of breath, palpitations, nausea, vomiting, diarrhea, fevers, chills, weakness. Objective - Vital Signs/Intake and Output Vital Signs (last 24 hours): Temp Pulse Resp BP Pulse Ox 98.3 F 54 L 18 118/52 L 100 05/04/17 23:30 05/05/17 00:00 05/04/17 23:30 05/04/17 23:30 05/04/17 23:30 - Medications Medications: Current Medications Amiodarone HCl (Cordarone) 200 mg PO DAILY [facility] Last Admin: 05/04/17 09:27 Dose: 200 mg Aspirin (Ecotrin) 81 mg PO DAILY [facility] Last Admin: 05/03/17 09:12 Dose: 81 mg Chlorthalidone (Hygroton) 25 mg PO DAILY [facility] Last Admin: 05/04/17 09:27 Dose: 25 mg Clopidogrel Bisulfate (Plavix) 75 mg PO DAILY [facility] Last Admin: 05/03/17 09:11 Dose: 75 mg Diltiazem HCl (Cardizem Cd) 120 mg PO DAILY [facility] Last Admin: 05/04/17 09:27 Dose: 120 mg Enoxaparin Sodium (Lovenox) 70 mg SC Q12H [facility] Last Admin: 05/03/17 21:17 Dose: 70 mg Finasteride (Proscar) 5 mg PO DAILY [facility] Last Admin: 05/04/17 09:27 Dose: 5 mg Gabapentin (Neurontin) 300 mg PO TID [facility] Last Admin: 05/04/17 17:25 Dose: 300 mg Levetiracetam (Keppra) 500 mg PO BID [facility] Last Admin: 05/04/17 17:25 Dose: 500 mg Losartan Potassium (Cozaar) 25 mg PO DAILY [facility] Last Admin: 05/04/17 09:27 Dose: 25 mg Pantoprazole Sodium (Protonix Inj) 40 mg IVP Q12H [facility] Last Admin: 05/04/17 18:58 Dose: 40 mg Potassium Chloride (Klor-Con 10) 10 meq PO BRK [facility] Last Admin: 05/04/17 08:42 Dose: 10 meq Rosuvastatin Calcium (Crestor) 10 mg PO HS [facility] Last Admin: 05/04/17 21:38 Dose: 10 mg Tamsulosin HCl (Flomax) 0.4 mg PO DAILY [facility] Last Admin: 05/04/17 09:27 Dose: 0.4 mg Vitamin A (Vitamin A & D Oint Ud Foilpak) 1 ea TOP BID [facility] Last Admin: 05/04/17 17:25 Dose: 1 ea Zolpidem Tartrate (Ambien) 5 mg PO HS [facility] Last Admin: 05/04/17 21:38 Dose: 5 mg - Labs Labs: 05/05/17 07:59 05/04/17 07:41 PT 16.7 SECONDS (9.7-12.2) H 05/04/17 07:02 INR 1.5 05/04/17 07:02 APTT 34 SECONDS (21-34) 05/04/17 07:02 - Constitutional Appears: Non-toxic, No Acute Distress - Head Exam Head Exam: ATRAUMATIC, NORMAL INSPECTION, NORMOCEPHALIC - Eye Exam Eye Exam: EOMI, Normal appearance - ENT Exam ENT Exam: Mucous Membranes Moist, Normal Exam - Neck Exam Neck Exam: Normal Inspection - Respiratory Exam Respiratory Exam: Clear to Ausculation Bilateral, NORMAL BREATHING PATTERN - Cardiovascular Exam Cardiovascular Exam: REGULAR RHYTHM, +S1, +S2 - GI/Abdominal Exam GI & Abdominal Exam: Soft, Normal Bowel Sounds - Extremities Exam Additional comments: B/L AKA - Back Exam Back Exam: NORMAL INSPECTION - Neurological Exam Neurological Exam: Alert, Awake, Oriented x3 - Psychiatric Exam Psychiatric exam: Normal Affect, Normal Mood - Skin Skin Exam: Normal Color, Warm Assessment and Plan - Assessment and Plan (Free Text) Assessment: Patient is a 71 y/o male past medical history of HTN, HLD, multiple CVAs, and recent AKA b/l 2/2 PAD, presents with slurred speech and right facial droop. Plan: 1.TIA r/o cardiac etiology -Continue with lipitor,aspirin -Cleared for d/c from neurology standpoint 2.Bradycardia - Continue with cardizem 120mg - HR now in upper 40s - Continue to monitor BP 3. Atrial Fibrillation - Amiodarone - Cardizem - Coumadin discontinued, INR subtherapeutic at 1.5 - YVES results pending 4. PAD S/P Bilateral AKA -Gabapentin -Continue Aspirin -Lovenox held due to GI bleed
[2017-05-05] MEDS: Potassium Chloride 10 mEq ER Tab PO SCH (08:45)
[2017-05-05 09:02] VITALS: RESP 20
[2017-05-05] MEDS: diltiaZEM 120 mg/24 Hours CD Cap PO SCH (09:07)
[2017-05-05] MEDS: Vitamins A & D Oint UD Foilpak TOP SCH ×2 (09:09→17:15)
--- NOTE | 2017-05-05 12:42 | CP.PCM.PN ---
Subjective - Date & Time of Evaluation Date of Evaluation: 05/05/17 Time of Evaluation: 14:43 - Subjective Subjective: PGY2 Note for Dr. Inocencio Vines; all management as per Dr. Inocencio Vines Patient seen and examined at bedside; from last weeks visit the patient is speaking and articulating much better than previously. He has no complaints other than he wants to be fitted for a prosthesis. As per Dr. Inocencio Vines; the patient is stable for discharge. He has been fit for prosthesis in the past, and prosthesis fitting has been unsuccessful during the hospitalization; the patient will need to be fit for prosthesis during his rehab stay. The patient will need to continue all current medications during his rehab stay. Aspirin 81mg PO dialy Crestor 10mg PO HS Chlorthalidone 25mg PO dialy Plavix 75mg PO daily Finasterie 5mg PO daily Gabapentin 300mg PO TID Keppra 500mg PO BID Losartan 25mg PO Daily Zolpidem 5mg HS Amiodarone 200mg PO dialy Diltiazem PO Daily Protonix 80mg PO daily The patient is also requesting to be fit for prosthesis as he has a BKA Objective - Vital Signs/Intake and Output Vital Signs (last 24 hours): Temp Pulse Resp BP Pulse Ox 98.1 F 50 L 20 161/72 H 100 05/05/17 08:55 05/05/17 08:55 05/05/17 08:55 05/05/17 08:55 05/05/17 12:07 - Medications Medications: Current Medications Amiodarone HCl (Cordarone) 200 mg PO DAILY [facility] Last Admin: 05/05/17 09:04 Dose: 200 mg Aspirin (Ecotrin) 81 mg PO DAILY [facility] Last Admin: 05/05/17 09:04 Dose: 81 mg Chlorthalidone (Hygroton) 25 mg PO DAILY [facility] Last Admin: 05/05/17 09:04 Dose: 25 mg Clopidogrel Bisulfate (Plavix) 75 mg PO DAILY [facility] Last Admin: 05/05/17 09:07 Dose: 75 mg Diltiazem HCl (Cardizem Cd) 120 mg PO DAILY [facility] Last Admin: 05/05/17 09:07 Dose: 120 mg Enoxaparin Sodium (Lovenox) 70 mg SC Q12H [facility] Last Admin: 05/03/17 21:17 Dose: 70 mg Finasteride (Proscar) 5 mg PO DAILY [facility] Last Admin: 05/05/17 09:08 Dose: 5 mg Gabapentin (Neurontin) 300 mg PO TID [facility] Last Admin: 05/05/17 09:06 Dose: 300 mg Levetiracetam (Keppra) 500 mg PO BID [facility] Last Admin: 05/05/17 09:08 Dose: 500 mg Losartan Potassium (Cozaar) 25 mg PO DAILY [facility] Last Admin: 05/05/17 09:08 Dose: 25 mg Pantoprazole Sodium (Protonix Inj) 80 mg IVP Q12H [facility] Potassium Chloride (Klor-Con 10) 10 meq PO BRK [facility] Last Admin: 05/05/17 08:45 Dose: 10 meq Rosuvastatin Calcium (Crestor) 10 mg PO HS [facility] Last Admin: 05/04/17 21:38 Dose: 10 mg Tamsulosin HCl (Flomax) 0.4 mg PO DAILY [facility] Last Admin: 05/05/17 09:08 Dose: 0.4 mg Vitamin A (Vitamin A & D Oint Ud Foilpak) 1 ea TOP BID [facility] Last Admin: 05/05/17 09:09 Dose: 1 ea Zolpidem Tartrate (Ambien) 5 mg PO HS [facility] Last Admin: 05/04/17 21:38 Dose: 5 mg - Labs Labs: 05/05/17 07:59 05/05/17 07:59 PT 15.1 SECONDS (9.7-12.2) H 05/05/17 07:59 INR 1.3 05/05/17 07:59 APTT 24 SECONDS (21-34) D 05/05/17 07:59 - Constitutional Appears: Non-toxic - Head Exam Head Exam: ATRAUMATIC - ENT Exam ENT Exam: Mucous Membranes Moist - Neck Exam Neck Exam: Full ROM - Respiratory Exam Respiratory Exam: Clear to Ausculation Bilateral - Cardiovascular Exam Cardiovascular Exam: REGULAR RHYTHM - GI/Abdominal Exam GI & Abdominal Exam: Soft - Back Exam Back Exam: absent: CVA tenderness (L), CVA tenderness (R) - Neurological Exam Neurological Exam: Alert, Awake - Psychiatric Exam Psychiatric exam: Normal Affect - Skin Skin Exam: Warm Assessment and Plan - Assessment and Plan (Free Text) Assessment: This is a 71 yo male, 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 f/u results. Lovenox 70mg SC Q12H was d/c 2/ to rectal bleed; will monitor H/H; 80mg IV push BID Protonix ordered; patient is otherwise stable 05/01: Planned for YVES today, patient is NPO. 04/29: Continue with lipitor, aspirin -IV hydration -Brain MRI - acute infarct, posterior L coronal radiata -carotid dopplers negative -neurology consult. Dr. Fitch. dorinda appreciated. -cardio consult. Dr. Benz. seth appreciated. -pureed diet as per swallow eval -asa 81 mg po daily -plavix 75 mg daily -PT/OT ordered; patient will need extensive rehab but daughter wants to bring patient home instead of custodial facility -oxycodone for pain prn severe pain hx of HTN;chronic -continue losartan daily -continue chlorthalidone daily -continue cardizem daily Atrial Fibrillation 05/05; still pending YVES form read 05/04: YVES performed today. f/u results. Lovenox 70mg SC Q12H. 05/01: Planned for YVES today, patient is NPO. 04/29: Continue Coumadin 4mg PO qD; patient is therapeutic w/ INR of 2.7 04/27: plan for possible YVES; however no indication from notes that patient will be receiving YVES -cardiology currently has no plan to take patient for YVES but will benefit from this before leaving for custodial facility -Continue Coumadin 4mg PO qD; patient is therapeutic w/ INR of 2.0 -cardio consult. Dr. Brown. dorinda appreciated. Bradycardia - Cardizem dosage was decreased to 120 - HR now in upper 50s-60s - Will continue to monitor - Monitor blood pressure since cardizem has been decreased; possibly increase cozaar if necessary Insomnia -continue ambien daily PO HS Electrolyte imbalance 05/04: Hypokalemia K3.1 -> KCl 40 x2 doses + Mag sulfate x2 bags (Mg 1.8) 05/01: Hypokalemia K3.5 -> KCl 40 + Mag sulfate x2bags (Mg 1.6) 04/29: Hypokalemia K3.4 -> will replete -Hypokalemia, 3.1 today; will replete GI/DVT -protonix daily BID 80mg -SCDs -Lovenox 70mg SC Q12H; on hold -Diet: pureed -f/u stool occult blood was positive; however hgb is stable Discharge Planning: Recommendation is for rehab and daughter is agreeing; patients family is requesting [facility] which they are amenable to -patient will also need to be fitted for prosthesis, physical therapy is looking into protocol for having patient measured. Aspirin 81mg PO dialy Crestor 10mg PO HS Chlorthalidone 25mg PO dialy Plavix 75mg PO daily Finasterie 5mg PO daily Gabapentin 300mg PO TID Keppra 500mg PO BID Losartan 25mg PO Daily Zolpidem 5mg HS Amiodarone 200mg PO dialy Diltiazem PO Daily Protonix 80mg PO daily The patient is also requesting to be fit for prosthesis as he has a BKA Case discussed with attending. All medical management as per Dr. Inocencio Vines
[2017-05-05 16:05] VITALS: BP 130/73; TEMP 97.8; O2SAT 93
--- NOTE | 2017-05-05 16:15 | CP.PCM.PN ---
Subjective - Date & Time of Evaluation Date of Evaluation: 05/05/17 Time of Evaluation: 10:40 - Subjective Subjective: clinically same Objective - Vital Signs/Intake and Output Vital Signs (last 24 hours): Temp Pulse Resp BP Pulse Ox 97.8 F 88 20 130/73 93 L 05/05/17 15:00 05/05/17 15:00 05/05/17 15:00 05/05/17 15:00 05/05/17 15:00 - Medications Medications: Current Medications Amiodarone HCl (Cordarone) 200 mg PO DAILY [facility] Last Admin: 05/05/17 09:04 Dose: 200 mg Aspirin (Ecotrin) 81 mg PO DAILY [facility] Last Admin: 05/05/17 09:04 Dose: 81 mg Chlorthalidone (Hygroton) 25 mg PO DAILY [facility] Last Admin: 05/05/17 09:04 Dose: 25 mg Clopidogrel Bisulfate (Plavix) 75 mg PO DAILY [facility] Last Admin: 05/05/17 09:07 Dose: 75 mg Diltiazem HCl (Cardizem Cd) 120 mg PO DAILY [facility] Last Admin: 05/05/17 09:07 Dose: 120 mg Enoxaparin Sodium (Lovenox) 70 mg SC Q12H [facility] Last Admin: 05/03/17 21:17 Dose: 70 mg Finasteride (Proscar) 5 mg PO DAILY [facility] Last Admin: 05/05/17 09:08 Dose: 5 mg Gabapentin (Neurontin) 300 mg PO TID [facility] Last Admin: 05/05/17 15:15 Dose: 300 mg Levetiracetam (Keppra) 500 mg PO BID [facility] Last Admin: 05/05/17 09:08 Dose: 500 mg Losartan Potassium (Cozaar) 25 mg PO DAILY [facility] Last Admin: 05/05/17 09:08 Dose: 25 mg Pantoprazole Sodium (Protonix Inj) 80 mg IVP Q12H [facility] Last Admin: 05/05/17 09:15 Dose: 80 mg Potassium Chloride (Klor-Con 10) 10 meq PO BRK [facility] Last Admin: 05/05/17 08:45 Dose: 10 meq Rosuvastatin Calcium (Crestor) 10 mg PO HS [facility] Last Admin: 05/04/17 21:38 Dose: 10 mg Tamsulosin HCl (Flomax) 0.4 mg PO DAILY [facility] Last Admin: 05/05/17 09:08 Dose: 0.4 mg Vitamin A (Vitamin A & D Oint Ud Foilpak) 1 ea TOP BID [facility] Last Admin: 05/05/17 09:09 Dose: 1 ea Zolpidem Tartrate (Ambien) 5 mg PO HS [facility] Last Admin: 05/04/17 21:38 Dose: 5 mg - Labs Labs: 05/05/17 07:59 05/05/17 07:59 PT 15.1 SECONDS (9.7-12.2) H 05/05/17 07:59 INR 1.3 05/05/17 07:59 APTT 24 SECONDS (21-34) D 05/05/17 07:59 Assessment and Plan (1) Bradycardia Status: Acute (2) CVA (cerebral vascular accident) Status: Acute (3) TIA (transient ischemic attack) Status: Acute (4) Atrial fibrillation Status: Acute (5) Elevated CK Status: Acute (6) Knee pain, left Status: Acute (7) Medicine refill Status: Acute (8) NSVT (nonsustained ventricular tachycardia) Status: Acute (9) Preop cardiovascular exam Status: Acute (10) Rhabdomyolysis Status: Acute (11) CKD (chronic kidney disease) Status: Chronic (12) HTN (hypertension) Status: Chronic (13) HTN (hypertension), malignant Status: Chronic
[2017-05-05 17:04] VITALS: PULSE 54
--- NOTE | 2017-05-06 13:33 | CARD ---
APPROVED REPORT EXAM: Two-dimensional and M-mode echocardiogram with Doppler and color Doppler. INDICATION Atrial Fibrillation R/O VEGETATION Mitral Valve MV E Jaiikhfy71.4cm/sMV A Mmzvzhee16.9cm/sE/A ratio0.8 TDI E/Lateral E'0.0E/Medial E'0.0 Reason For Test : Rule out cardiac source of emboli. PROCEDURE After obtaining informed consent, patient underwent transesophageal echo in the [facility]. Type of Sedation : Conscious Sedation Sedation was achieved with Versed and fentanyl intravenously. Transesophageal probe was inserted and advanced into esophagus without difficulty. Echo enhancement indication: R/O Septal defect. Echo enhancement agent administered: Agitated Saline The YVES was performed without complications. Throughout the procedure, the blood pressure, pulse oximetry, cardiac rhythm, and rate were monitored. The patient tolerated the procedure without adverse effects. Recovery from conscious sedation was uneventful and vital signs were stable. LEFT VENTRICLE The left ventricle is normal size. There is moderate concentric left ventricular hypertrophy. The left ventricular function is normal. The left ventricular ejection fraction is within the normal range. The Ejection Fraction is 60-65%. There is normal LV segmental wall motion. Transmitral Doppler flow pattern is Grade I-abnormal relaxation pattern. No left ventricle thrombus noted on this study. There is no ventricular septal defect visualized. There is no left ventricular aneurysm. There is no mass noted in the left ventricle. RIGHT VENTRICLE The right ventricle is normal size. There is normal right ventricular wall thickness. The right ventricular systolic function is normal. ATRIA The left atrium size is normal. The right atrium size is normal. The interatrial septum is intact with no evidence for an atrial septal defect. AORTIC VALVE The aortic valve is mildly to moderately sclerotic. There is mild to moderate aortic regurgitation. There is no aortic valvular stenosis. There is no aortic valvular vegetation. MITRAL VALVE The mitral valve is mildly thickened. Mitral annular calcification is borderline. There is no evidence of mitral valve prolapse. There is no mitral valve stenosis. Mitral regurgitation is trace to mild. TRICUSPID VALVE The tricuspid valve is normal in structure. There is trace to mild tricuspid regurgitation. There is no tricuspid valve prolapse or vegetation. There is no tricuspid valve stenosis. PULMONIC VALVE The pulmonary valve is normal in structure. There is no pulmonic valvular regurgitation. There is no pulmonic valvular stenosis. GREAT VESSELS The aortic root is normal in size. The ascending aorta is normal in size. The pulmonary artery is normal. The IVC is normal in size and collapses >50% with inspiration. PERICARDIAL EFFUSION There is no pericardial effusion. There is no pleural effusion. <Conclusion> The aortic valve is mildly to moderately sclerotic. There is mild to moderate aortic regurgitation. The left ventricular function is normal. The left ventricular ejection fraction is within the normal range. The Ejection Fraction is 60-65%. Transmitral Doppler flow pattern is Grade I-abnormal relaxation pattern.
== END 2017-05-05 18:00 | DRG 533 ==
LOC: C.ER 00:36 → C.6T 02:40
PROVIDERS: ADMIT Internal Medicine Nephrology; ATTEND Internal Medicine Nephrology
DX: I63.9 Cerebral infarction, unspecified (principal); M62.82 Rhabdomyolysis; I47.2 Ventricular tachycardia; I48.91 Unspecified atrial fibrillation; G40.909 Epilepsy, unspecified, not intractable, without status epilepticus; E87.6 Hypokalemia; E78.5 Hyperlipidemia, unspecified; G47.00 Insomnia, unspecified; H54.7 Unspecified visual loss; N18.9 Chronic kidney disease, unspecified; I69.398 Other sequelae of cerebral infarction; Z89.612 Acquired absence of left leg above knee; Z89.611 Acquired absence of right leg above knee; I12.9 Hypertensive chronic kidney disease with stage 1 through stage 4 chronic kidney disease, or unspecified chronic kidney disease; R47.81 Slurred speech; Z79.01 Long term (current) use of anticoagulants; Z79.02 Long term (current) use of antithrombotics/antiplatelets; Z79.82 Long term (current) use of aspirin; Z79.899 Other long term (current) drug therapy; R29.810 Facial weakness

== ENCOUNTER 2017-07-28 05:09 | Inpatient (IN) | payer MEDICAID, OTHER ==
[2017-07-28] MEDS ORDERED: Sodium Chloride 0.9% 1,000 ML IV ONE (05:59)
--- NOTE | 2017-07-28 05:59 | C.PDOC ---
History Of Present Illness <Maggy Alaniz - Last Filed: 07/28/17 06:53> <Lane Fam - Last Filed: 07/28/17 09:47> 72 year old male presents to the ED for evaluation of diffuse abd pain since 02: 00. Per patients daughter patient has not had BM since yesterday morning. Patient had 1 episode of vomiting prior to arrival. Patient complaining of taste of blood in mouth. Patient has history of blood clots. (Maggy Alaniz) History Per: Patient, Family History/Exam Limitations: no limitations Onset/Duration Of Symptoms: Days Current Symptoms Are (Timing): Still Present Location Of Pain/Discomfort: Diffuse Associated Symptoms: Vomiting, Constipation Last Bowel Movement: Yesterday <Maggy Alaniz - Last Filed: 07/28/17 06:53> <Lane Fam M - Last Filed: 07/28/17 09:47> Chief Complaint (Nursing): Abdominal Pain Past Medical History Reviewed: Historical Data, Nursing Documentation, Vital Signs - Medical History PMH: Atrial Fibrillation, HTN, Hyperlipidemia, Seizures Denies: Chronic Kidney Disease Family History: States: Unknown Family Hx - Social History Hx Alcohol Use: No Hx Substance Use: No - Immunization History Hx Tetanus Toxoid Vaccination: No Hx Influenza Vaccination: No Hx Pneumococcal Vaccination: No <Maggy Alaniz - Last Filed: 07/28/17 06:53> Vital Signs: Last Vital Signs Temp 98.2 F 07/28/17 07:39 Pulse 86 07/28/17 08:32 Resp 20 07/28/17 08:32 BP 116/78 07/28/17 08:32 Pulse Ox 95 07/28/17 08:32 - [facility] Procedures DETACHMENT AT LEFT UPPER LEG, LOW, OPEN APPROACH (02/04/17) DETACHMENT AT RIGHT UPPER LEG, LOW, OPEN APPROACH (02/04/17) EXTIRPATION OF MATTER FROM L FEM ART, OPEN APPROACH (02/04/17) EXTIRPATION OF MATTER FROM R FEM ART, OPEN APPROACH (02/04/17) PLAIN RADIOGRAPHY OF L LOW EXTREM ART USING OTH CONTRAST (02/04/17) PLAIN RADIOGRAPHY OF R LOW EXTREM ART USING OTH CONTRAST (02/04/17) Review Of Systems Except As Marked, All Systems Reviewed And Found Negative. Constitutional: Negative for: Fever, Chills ENT: Negative for: Ear Pain, Throat Pain Cardiovascular: Negative for: Chest Pain Respiratory: Negative for: Shortness of Breath Gastrointestinal: Positive for: Vomiting, Abdominal Pain, Constipation. Negative for: Diarrhea Skin: Negative for: Rash Neurological: Negative for: Headache <Maggy Alaniz - Last Filed: 07/28/17 06:53> Physical Exam - Physical Exam Appears: Non-toxic, No Acute Distress Skin: Normal Color, Warm, Dry Head: Atraumatic, Normacephalic Eye(s): bilateral: Normal Inspection, PERRL, EOMI Oral Mucosa: Moist Tongue: Normal Appearing Lips: Normal Appearing Throat: Normal Neck: Normal, Normal ROM, Supple Cardiovascular: Rhythm Regular Respiratory: Normal Breath Sounds Gastrointestinal/Abdominal: No Bowel Sounds (diminished bowel sounds), Tenderness, Rebound (diffuse ), Other (Rigid abdomen) Back: Normal Inspection Extremity: Other (Bilateral AKA) Neurological/Psych: Oriented x3, Normal Speech <Maggy Alaniz - Last Filed: 07/28/17 06:53> ED Course And Treatment - Laboratory Results Result Diagrams: 07/28/17 06:33 ECG: Interpreted By Ri ECG Rhythm: Sinus Rhythm, R BBB ECG Interpretation: Abnormal Interpretation Of ECG: sinus rhythm,1st deg AV block,RBBB,LVH with strain O2 Sat by Pulse Oximetry: 95 <Maggy Alaniz - Last Filed: 07/28/17 06:53> - Laboratory Results Result Diagrams: 07/28/17 07:03 07/28/17 06:33 <Lane Fam M - Last Filed: 07/28/17 09:47> Medical Decision Making <Maggy Alaniz - Last Filed: 07/28/17 06:53> <Lane Fam - Last Filed: 07/28/17 09:47> Medical Decision Making: Given patient's history and physical exam findings will order CT and bloodwork. (Maggy Alaniz) Disposition <Maggy Alaniz - Last Filed: 07/28/17 06:53> Discussed With : [facility] Doctor Will See Patient In The: ED Counseled Patient/Family Regarding: Studies Performed, Diagnosis - Disposition Disposition Time: 09:46 <Lane Fam - Last Filed: 07/28/17 09:47> - Disposition Referrals: Dung Patel MD [Staff Provider] - Disposition: HOSPITALIZED Condition: FAIR Forms: [facility] ([place]) - Clinical Impression Clinical Impression: Abdominal pain, Hypokalemia - Scribe Statement The provider has reviewed the documentation as recorded by the Scribe <Maggy Alaniz - Last Filed: 07/28/17 06:53> <Lane Fam - Last Filed: 07/28/17 09:47> - Scribe Statement The provider has reviewed the documentation as recorded by the Scribe (Heron Berman) (Maggy Alaniz) Provider Attestation: All medical record entries made by the Scribe were at my direction and personally dictated by me. I have reviewed the chart and agree that the record accurately reflects my personal performance of the history, physical exam, medical decision making, and the department course for this patient. I have also personally directed, reviewed, and agree with the discharge instructions and disposition. (Maggy Alaniz) Addendum <Maggy Alaniz - Last Filed: 07/28/17 06:53> <Lane Fam - Last Filed: 07/28/17 09:47> Addendum: 07/28/17 09:44 Received patient in sign out pending ct scan and reevaluation. case discussed with hospitalist and patient admitted to medical floor surgical consult ordered. (Lane Fam)
[2017-07-28] MEDS ORDERED: Morphine 4 MG/ML VIAL IV ONE (06:01)
--- NOTE | 2017-07-28 06:02 | C.PDOC ---
Chief Complaint (Nursing): Abdominal Pain Past Medical History Vital Signs: Last Vital Signs Temp 97.6 F 07/28/17 05:15 Pulse 71 07/28/17 05:29 Resp 18 07/28/17 05:29 BP 135/69 07/28/17 05:29 Pulse Ox 95 07/28/17 05:29 - Medical History PMH: Atrial Fibrillation, HTN, Hyperlipidemia, Seizures Denies: Chronic Kidney Disease - [facility] Procedures DETACHMENT AT LEFT UPPER LEG, LOW, OPEN APPROACH (02/04/17) DETACHMENT AT RIGHT UPPER LEG, LOW, OPEN APPROACH (02/04/17) EXTIRPATION OF MATTER FROM L FEM ART, OPEN APPROACH (02/04/17) EXTIRPATION OF MATTER FROM R FEM ART, OPEN APPROACH (02/04/17) PLAIN RADIOGRAPHY OF L LOW EXTREM ART USING OTH CONTRAST (02/04/17) PLAIN RADIOGRAPHY OF R LOW EXTREM ART USING OTH CONTRAST (02/04/17) Family History: States: Unknown Family Hx - Social History Hx Alcohol Use: No Hx Substance Use: No - Immunization History Hx Tetanus Toxoid Vaccination: No Hx Influenza Vaccination: No Hx Pneumococcal Vaccination: No ED Course And Treatment O2 Sat by Pulse Oximetry: 95 Disposition - Disposition Forms: [facility] ([place])
[2017-07-28] MEDS ORDERED: Sodium Chloride 0.9% 1,000 ML ONE (06:16)
[2017-07-28] MEDS ORDERED: Morphine 4 MG/ML VIAL ONE (06:24)
[2017-07-28 06:52] LABS: ALB/GLOB RATIO 1.2 (1.0-2.1); ALBUMIN 3.2 g/dL (3.5-5.0); ALT/SGPT 39 U/L (21-72); AST/SGOT 27 U/L (17-59); BLOOD UREA NITROGEN 15 mg/dL (9-20); CALCIUM 8.3 mg/dl (8.6-10.4); GFR AFRICAN-AMERICAN > 60; GFR NON-AFRICAN AMERICAN 60; INR 1.1; LIPASE 191 U/L (23-300); PROTHROMBIN TIME 12.7 SECONDS (9.7-12.2)
[2017-07-28] MEDS ORDERED: HYDROmorphone 1 mg/ml ISec IVP STA (06:55)
[2017-07-28] MEDS ORDERED: Potassium Ch 20mEq in D5W 1,000 ML IV SCH (07:00)
[2017-07-28 07:06] LABS: BASO % 0.2 % (0.0-2.0); EOS # 0.1 K/uL (0.0-0.7); HEMOGLOBIN 12.2 g/dL (12.0-18.0); LYMPH # 1.7 K/uL (1.0-4.3); LYMPH % 25.2 % (20.0-40.0); MEAN CELL VOLUME 77.3 fL (80.0-94.0); MEAN CORPUSCULAR HEMOGLOBIN 25.3 pg (27.0-31.0); MEAN CORPUSCULAR HGB CONC 32.7 g/dL (33.0-37.0); MEAN PLATELET VOLUME 8.8 fL (7.2-11.7); MONO # 0.1 K/uL (0.0-0.8); MONO % 1.4 % (0.0-10.0); NEUT % 72.2 % (50.0-75.0); RBC 4.83 Mil/uL (4.40-5.90); RED CELL DISTRIBUTION WIDTH 18.6 % (11.5-14.5); WHITE BLOOD COUNT 6.9 K/uL (4.8-10.8)
[2017-07-28] MEDS ORDERED: Potassium Ch 20mEq in D5W 1,000 ML IV ONE (07:15)
[2017-07-28] MEDS ORDERED: Iodixanol 320 MG/ML 100 ML BOTTLE IV ONE (07:45)
[2017-07-28 09:18] LABS: SQUAMOUS EPITHIAL < 1 /hpf (0-5); URINE BACTERIA RARE (<OCC); URINE BILIRUBIN NEGATIVE (NEGATIVE); URINE BLOOD NEGATIVE (NEGATIVE); URINE CLARITY Clear (Clear); URINE COLOR Yellow (YELLOW); URINE GLUCOSE (UA) NORMAL (Normal); URINE LEUKOCYTE ESTERASE NEG Leu/uL (Negative); URINE PROTEIN NEGATIVE (NEGATIVE); URINE UROBILINOGEN NORMAL mg/dL (0.2-1.0)
--- NOTE | 2017-07-28 09:41 | CT ---
PROCEDURE: CT Abdomen and Pelvis with contrast HISTORY: Abdominal pain COMPARISON: CTA abdomen and pelvis from 02/04/2017. TECHNIQUE: Contrast dose: 100 mL Visipaque Radiation dose: Total exam DLP = 689.71 mGy-cm. This CT exam was performed using one or more of the following dose reduction techniques: Automated exposure control, adjustment of the mA and/or kV according to patient size, and/or use of iterative reconstruction technique. FINDINGS: LOWER THORAX: There are trace pleural effusions and subsegmental atelectasis in the right lower lobe. . LIVER: The liver is normal in size and there is homogeneous enhancement. There are scattered few scattered low-attenuation lesions in both lobes, small to characterize by CT criteria and may represent small hemangiomas or simple cyst. There is a peripherally calcified cyst in the posterior hepatic dome. No gross lesion or ductal dilatation. GALLBLADDER AND BILE DUCTS: The gallbladder is distended. There are no gallstones, wall thickening or pericholecystic fluid. PANCREAS: Normal in size and there is homogeneous enhancement. No gross lesion or ductal dilatation. SPLEEN: Normal in size and appearance. ADRENALS: No discrete nodule. KIDNEYS AND URETERS: Both kidneys are normal in size and there is homogeneous enhancement without hydronephrosis or mass. Is cortical scarring in both kidneys and small simple cyst in the lower pole of the right kidney. . No hydronephrosis. No solid mass. VASCULATURE: No aortic aneurysm. BOWEL: There is fluid in the distal esophagus and stomach. There is fecalization of small bowel loops and moderate long segment dilatation of a loop of small bowel in the left abdomen. The distal small bowel loops are normal in caliber. There is an approximately 5.5 x 4.8 x 4.4 cm enhancing polypoid soft tissue mass in the hepatic flexure of colon. There is large amount of stool in the colon. No evidence of bowel obstruction. APPENDIX: Normal appendix. PERITONEUM: There is small amount of free fluid in the abdomen and pelvis. No free air. LYMPH NODES: No enlarged lymph nodes. BLADDER: Partially distended. REPRODUCTIVE: The prostate gland is normal in size. BONES: There is an age indeterminate but likely chronic superior endplate compression deformity in the L2 vertebral body. Multilevel degenerative changes in the spine. OTHER FINDINGS: There is a small sliding hiatal hernia. There is mild anasarca. There is abnormal soft tissue in the right inguinal canal which could represent inflammatory soft tissue or postsurgical changes. IMPRESSION: 1. Large approximately 5.5 cm enhancing polypoid soft tissue mass in the hepatic flexure of colon. No evidence of bowel obstruction. Please correlate with colonoscopy. 2. Severe constipation. Fecalization of small bowel contents with segmental dilatation of a loop of small bowel in the left abdomen. Small amount of free fluid in the abdomen and pelvis. 3. Additional findings as described above. Important findings were discussed with Dr. Fam in the ER on 07/28/2017 at 9:35 a.m.
[2017-07-28] MEDS ORDERED: Magnesium Citrate Oral SOL (300 ml) PO ONE (11:21)
[2017-07-28] MEDS ORDERED: Potassium Chloride 20 mEq/15 ml LIQ UD PO ONE ×2 (11:30→20:00)
--- NOTE | 2017-07-28 11:32 | CP.PCM.CON ---
History of Present Illness - History of Present Illness History of Present Illness: General surgery consult note for Dr. Nkechi Ashford, PGY1 Pt S & E at bedside. Kazakh speaking only, daughter at bedside. 72M w/PMH sig for B/L AKA consulted for abdominal pain x 1 day. Acute onset of diffuse pain started at 2am on day of admission to hospital.Pain is diffuse, severe, non radiating, constant since onset. Last BM was hard, small stool 2 days prior to admission. Last meal was evening previous to admission. Admits to nausea, emesis x 4 (feculant), constipation. Denies diarrhea, F & C, changes to bladder habits, other complaints. In ED- CT abdomen with severe fecalization into small bowel, soft tissue mass at hepatic flexure. No leukocytosis, afebrile. PMH: Afib, HTN, CVA, epilepsy PSH: hx cardiac cath,. 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 Lives with daughter. Review of Systems - Review of Systems All systems: reviewed and no additional remarkable complaints except - Constitutional Constitutional: absent: Chills, Fever - EENT Eyes: absent: Change in Vision Nose/Mouth/Throat: absent: Sore Throat - Cardiovascular Cardiovascular: absent: Chest Pain - Respiratory Respiratory: absent: Cough - Gastrointestinal Gastrointestinal: Abdominal Pain, Bloating, Change in Bowel Habits, Constipation , Nausea, Vomiting. 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) - RENAL Hx Chronic Kidney Disease: No - ENDOCRINE/METABOLIC Hx Endocrine Disorders: No - HEMATOLOGICAL/ONCOLOGICAL Hx Blood Disorders: No - INTEGUMENTARY Hx Dermatological Problems: No - MUSCULOSKELETAL/RHEUMATOLOGICAL Hx Musculoskeletal Disorders: No Hx Falls: No - GASTROINTESTINAL Hx Gastrointestinal Disorders: No - GENITOURINARY/GYNECOLOGICAL Hx Genitourinary Disorders: No - PSYCHIATRIC Hx Substance Use: No - SURGICAL HISTORY Hx Surgeries: Yes Hx Cardiac Catheterization: Yes Hx Musculoskeletal Surgery: Yes (Bilateral AKA) - ANESTHESIA Hx Anesthesia: Yes Hx Anesthesia Reactions: No Hx Malignant Hyperthermia: No Meds Allergies/Adverse Reactions: Allergies Allergy/AdvReac Type Severity Reaction Status Date / Time banana Allergy SWELLING Verified 07/28/17 05:15 pineapple Allergy SWELLING Verified 07/28/17 05:15 - Medications Medications: Current Medications Docusate Sodium (Colace) 100 mg PO DAILY EBONY Potassium Chloride (Potassium Chloride Oral Soln) 60 meq PO ONCE ONE Stop: 07/28/17 11:31 Physical Exam - Constitutional Appears: Non-toxic, No Acute Distress - Head Exam Head Exam: ATRAUMATIC, NORMAL INSPECTION, NORMOCEPHALIC - Eye Exam Eye Exam: EOMI, Normal appearance - ENT Exam ENT Exam: Mucous Membranes Moist, Normal Exam - Respiratory Exam Respiratory Exam: NORMAL BREATHING PATTERN - Cardiovascular Exam Cardiovascular Exam: REGULAR RHYTHM, +S1, +S2 - GI/Abdominal Exam GI & Abdominal Exam: Distended (grossly), Firm, Guarding, Soft, Tenderness ( diffuse). absent: Rigid - Exam Exam: NORMAL INSPECTION. absent: Scrotal Swelling - Extremities Exam Extremities exam: Negative for: normal inspection (B/L AKA) - Neurological Exam Neurological exam: Alert, CN II-XII Intact, Oriented x3 - Psychiatric Exam Psychiatric exam: Normal Affect, Normal Mood - Skin Skin Exam: Dry, Intact, Normal Color, Warm Results - Vital Signs Recent Vital Signs: Last Vital Signs Temp 98.1 F 07/28/17 10:55 Pulse 97 H 07/28/17 10:55 Resp 20 07/28/17 10:55 BP 120/78 07/28/17 10:55 Pulse Ox 99 07/28/17 10:55 - Labs Result Diagrams: 07/28/17 07:03 07/28/17 19:44 Labs: Laboratory Results - last 24 hr 07/28/17 07/28/17 07/28/17 06:33 06:33 07:03 WBC 6.9 RBC 4.83 Hgb 12.2 D Hct 37.3 MCV 77.3 L D MCH 25.3 L MCHC 32.7 L RDW 18.6 H Plt Count 271 MPV 8.8 Neut % (Auto) 72.2 Lymph % (Auto) 25.2 [place] % (Auto) 1.4 Eos % (Auto) 1.0 Baso % (Auto) 0.2 Neut # (Auto) 5.0 Lymph # (Auto) 1.7 Hubbard # (Auto) 0.1 Eos # (Auto) 0.1 Baso # (Auto) 0.0 PT 12.7 H INR 1.1 APTT 22 Sodium 136 Potassium 2.5 L* D Chloride 100 Carbon Dioxide 26 Anion Gap 13 BUN 15 Creatinine 1.2 Est GFR ( Amer) > 60 Est GFR (Non-Af Amer) 60 Random Glucose 110 Lactic Acid Calcium 8.3 L Total Bilirubin 0.5 AST 27 ALT 39 Alkaline Phosphatase 68 Troponin I 0.0320 Total Protein 5.8 L Albumin 3.2 L Globulin 2.6 Albumin/Globulin Ratio 1.2 Lipase 191 Urine Color Urine Clarity Urine pH Ur Specific [place] Urine Protein Urine Glucose (UA) Urine Ketones Urine Blood Urine Nitrate Urine Bilirubin Urine Urobilinogen Ur Leukocyte Esterase Urine WBC (Auto) Urine RBC (Auto) Ur Squamous Epith Cells Urine Bacteria Hyaline Casts 07/28/17 07/28/17 07:05 09:10 WBC RBC Hgb Hct MCV MCH MCHC RDW Plt Count MPV Neut % (Auto) Lymph % (Auto) [place] % (Auto) Eos % (Auto) Baso % (Auto) Neut # (Auto) Lymph # (Auto) Hubbard # (Auto) Eos # (Auto) Baso # (Auto) PT INR APTT Sodium Potassium Chloride Carbon Dioxide Anion Gap BUN Creatinine Est GFR ( Amer) Est GFR (Non-Af Amer) Random Glucose Lactic Acid 2.4 H Calcium Total Bilirubin AST ALT Alkaline Phosphatase Troponin I Total Protein Albumin Globulin Albumin/Globulin Ratio Lipase Urine Color Yellow Urine Clarity Clear Urine pH 6.0 Ur Specific [place] 1.040 H Urine Protein Negative Urine Glucose (UA) Normal Urine Ketones Negative Urine Blood Negative Urine Nitrate Negative Urine Bilirubin Negative Urine Urobilinogen Normal Ur Leukocyte Esterase Neg Urine WBC (Auto) 1 Urine RBC (Auto) 1 Ur Squamous Epith Cells < 1 Urine Bacteria Rare Hyaline Casts 11-20 H Assessment & Plan - Assessment and Plan (Free Text) Assessment: 72M w/abdominal pain, likely due to severe constipation Plan: NPO for now Severe hypokalemia 2.5- replaced 60 mEq IVF Enema x 1 Colace Mag citrate NGT for decompression- low continuous suction Monitor for BMs Will need GI for colonoscopy for hepatic flexure lesion DW attending [place], PGY-1 - Date & Time Date: 07/28/17 Time: 16:30
[2017-07-28] MEDS ORDERED: Lactated Ringer's 1,000 ML IV SCH (11:45)
--- NOTE | 2017-07-28 12:11 | CP.PCM.CON ---
<Dennis Vaz - Last Filed: 07/28/17 12:45> History of Present Illness - History of Present Illness History of Present Illness: PGY5 GI Fellow Consult Note Patient is a 72yo male with PMHx significant for atrial fibrillation ( previously on Coumadin), multiple CVA (on ASA/Plavix), epilepsy, severe PVD with B/L acute rosi ischmia in February 2017 s/p B/L AKA who presented to the ED with abdominal pain for one day. Diffuse abdominal pain began suddenly at approximately 2AM on the day prior to admission. The patient states he had not been able to pass stool in the last 24H and began to develop pain as a result. Symptoms became so severe that he was nauseated and vomited prior to arrival. Prior to this event, patient was feeling well, tolerating PO intake and had not noted any stooling abnormalities, fever/chills, weight loss or hematochezia/ melena. On CT imaging, it is noted that the patient has a 5.5 x 4.8 x 4.4cm polypoid mass in the hepatic flexure of the colon with noted cecal dilation and fecalization of the small bowel. Significant stool retention is noted throughout. I discussed this case with the patient's daughter, Pura who corroborates her father's story in that he was fine until 24 hours ago. Currently, the patient continues to have diffuse abdominal pain, nausea and has recently vomited. PMHx: See HPI PSHx: B/L SAUMYAA (02/22) for acute limb ischemia FHx: No significant family history per patient/patient's daughter - no history of malignancy Social: Denies tobacco, EtOH or illicit drug use Endo: No prior endoscopic evaluations 12 system ROS performed and negative except where stated 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) - RENAL Hx Chronic Kidney Disease: No - ENDOCRINE/METABOLIC Hx Endocrine Disorders: No - HEMATOLOGICAL/ONCOLOGICAL Hx Blood Disorders: No - INTEGUMENTARY Hx Dermatological Problems: No - MUSCULOSKELETAL/RHEUMATOLOGICAL Hx Musculoskeletal Disorders: No Hx Falls: No - GASTROINTESTINAL Hx Gastrointestinal Disorders: No - GENITOURINARY/GYNECOLOGICAL Hx Genitourinary Disorders: No - PSYCHIATRIC Hx Substance Use: No - SURGICAL HISTORY Hx Surgeries: Yes Hx Cardiac Catheterization: Yes Hx Musculoskeletal Surgery: Yes (Bilateral AKA) - ANESTHESIA Hx Anesthesia: Yes Hx Anesthesia Reactions: No Hx Malignant Hyperthermia: No Meds Allergies/Adverse Reactions: Allergies Allergy/AdvReac Type Severity Reaction Status Date / Time banana Allergy SWELLING Verified 07/28/17 05:15 pineapple Allergy SWELLING Verified 07/28/17 05:15 - Medications Medications: Current Medications Docusate Sodium (Colace) 100 mg PO DAILY [facility] Lactated Ringer's (Lactated Ringer's) 1,000 mls @ 100 mls/hr IV .Q10H [facility] Physical Exam - Constitutional Appears: Chronically Ill Additional comments: uncomfortable - Eye Exam Eye Exam: EOMI, PERRL - ENT Exam ENT Exam: Mucous Membranes Dry - Respiratory Exam Respiratory Exam: Clear to Auscultation Bilateral. absent: Rales, Rhonchi, Wheezes - Cardiovascular Exam Cardiovascular Exam: Irregular Rhythm, +S1, +S2 - GI/Abdominal Exam GI & Abdominal Exam: Distended, Firm, Guarding, Hypoactive Bowel Sounds, Tenderness (diffusely). absent: Hernia, Organomegaly, Rigid, Soft - Extremities Exam Additional comments: B/L AKA - Neurological Exam Neurological exam: Alert, Oriented x3 Additional comments: right sided facial droop - from prior CVA - Psychiatric Exam Psychiatric exam: Normal Affect, Normal Mood - Skin Skin Exam: Dry, Warm Results - Vital Signs Recent Vital Signs: Last Vital Signs Temp 98.1 F 07/28/17 10:55 Pulse 97 H 07/28/17 10:55 Resp 20 07/28/17 10:55 BP 120/78 07/28/17 10:55 Pulse Ox 99 07/28/17 10:55 - Labs Result Diagrams: 07/28/17 07:03 07/28/17 06:33 Labs: Laboratory Results - last 24 hr 07/28/17 07/28/17 07/28/17 06:33 06:33 07:03 WBC 6.9 RBC 4.83 Hgb 12.2 D Hct 37.3 MCV 77.3 L D MCH 25.3 L MCHC 32.7 L RDW 18.6 H Plt Count 271 MPV 8.8 Neut % (Auto) 72.2 Lymph % (Auto) 25.2 [place] % (Auto) 1.4 Eos % (Auto) 1.0 Baso % (Auto) 0.2 Neut # (Auto) 5.0 Lymph # (Auto) 1.7 Schleicher # (Auto) 0.1 Eos # (Auto) 0.1 Baso # (Auto) 0.0 PT 12.7 H INR 1.1 APTT 22 Sodium 136 Potassium 2.5 L* D Chloride 100 Carbon Dioxide 26 Anion Gap 13 BUN 15 Creatinine 1.2 Est GFR ( Amer) > 60 Est GFR (Non-Af Amer) 60 Random Glucose 110 Lactic Acid Calcium 8.3 L Total Bilirubin 0.5 AST 27 ALT 39 Alkaline Phosphatase 68 Troponin I 0.0320 Total Protein 5.8 L Albumin 3.2 L Globulin 2.6 Albumin/Globulin Ratio 1.2 Lipase 191 Urine Color Urine Clarity Urine pH Ur Specific [place] Urine Protein Urine Glucose (UA) Urine Ketones Urine Blood Urine Nitrate Urine Bilirubin Urine Urobilinogen Ur Leukocyte Esterase Urine WBC (Auto) Urine RBC (Auto) Ur Squamous Epith Cells Urine Bacteria Hyaline Casts 07/28/17 07/28/17 07:05 09:10 WBC RBC Hgb Hct MCV MCH MCHC RDW Plt Count MPV Neut % (Auto) Lymph % (Auto) [place] % (Auto) Eos % (Auto) Baso % (Auto) Neut # (Auto) Lymph # (Auto) [place] # (Auto) Eos # (Auto) Baso # (Auto) PT INR APTT Sodium Potassium Chloride Carbon Dioxide Anion Gap BUN Creatinine Est GFR ( Amer) Est GFR (Non-Af Amer) Random Glucose Lactic Acid 2.4 H Calcium Total Bilirubin AST ALT Alkaline Phosphatase Troponin I Total Protein Albumin Globulin Albumin/Globulin Ratio Lipase Urine Color Yellow Urine Clarity Clear Urine pH 6.0 Ur Specific [place] 1.040 H Urine Protein Negative Urine Glucose (UA) Normal Urine Ketones Negative Urine Blood Negative Urine Nitrate Negative Urine Bilirubin Negative Urine Urobilinogen Normal Ur Leukocyte Esterase Neg Urine WBC (Auto) 1 Urine RBC (Auto) 1 Ur Squamous Epith Cells < 1 Urine Bacteria Rare Hyaline Casts 11-20 H Assessment & Plan - Assessment and Plan (Free Text) Assessment: Patient is a 72yo male with PMHx significant for atrial fibrillation ( previously on Coumadin), multiple CVA (on ASA/Plavix), epilepsy, severe PVD with B/L acute rosi ischmia in February 2017 s/p B/L AKA who presented to the ED with abdominal pain for one day -Polypoid mass of the hepatic flexure noted on CT imaging -Severe constipation -Chronic opioid use -PVD, s/p B/L AKA on ASA/Plavix; currently not on AC -Rate controlled atrial fibrillation, not on AC Plan: -Suspect acute abdominal pain 2/2 obstructive symptoms related to polypoid lesion at the hepatic flexure -Liver lesions noted on this CT scan as well, too small to characterize -Patient nauseated, actively vomiting - cannot perform bowel prep in order to perform colonoscopy -Consider IR guided biopsy of this lesion if amenable to procedure -Patient last dose of Plavix was 07/27/17 -Recently had coumadin held for supratherapeutic INR, has not since been resumed on therapy - INR 1 -Antiemetics PRN -Gentle laxative therapy - consider miralax 17g PO QD and tap water enema as tolerated by patient -Try to avoid opiates as possible - Date & Time Date: 07/28/17 Time: 12:15 <Reji Bond - Last Filed: 07/28/17 13:13> Meds - Medications Medications: Current Medications Amiodarone HCl (Cordarone) 200 mg PO DAILY [facility] Aspirin (Ecotrin) 81 mg PO DAILY [facility] Chlorthalidone (Hygroton) 25 mg PO DAILY [facility] Clopidogrel Bisulfate (Plavix) 1 mg PO DAILY [facility] Diltiazem HCl (Cardizem Cd) 120 mg PO DAILY [facility] Docusate Sodium (Colace) 100 mg PO DAILY [facility] Last Admin: 07/28/17 12:14 Dose: 100 mg Finasteride (Proscar) 5 mg PO DAILY [facility] Gabapentin (Neurontin) 300 mg PO TID [facility] Home Med (Atorvastatin [Lipitor]) 20 mg PO DAILY [facility] Lactated Ringer's (Lactated Ringer's) 1,000 mls @ 100 mls/hr IV .Q10H [facility] Last Admin: 07/28/17 12:13 Dose: 100 mls/hr Levetiracetam (Keppra) 500 mg PO BID [facility] Losartan Potassium (Cozaar) 25 mg PO DAILY [facility] Tamsulosin HCl (Flomax) 0.4 mg PO DAILY [facility] Warfarin Sodium (Coumadin) 4 mg PO 1800 [facility] Zolpidem Tartrate (Ambien) 5 mg PO [facility] Results - Vital Signs Recent Vital Signs: Last Vital Signs Temp 98.1 F 07/28/17 10:55 Pulse 97 H 07/28/17 10:55 Resp 20 07/28/17 10:55 BP 120/78 07/28/17 10:55 Pulse Ox 99 07/28/17 10:55 - Labs Result Diagrams: 07/28/17 07:03 07/28/17 06:33 Labs: Laboratory Results - last 24 hr 07/28/17 07/28/17 07/28/17 06:33 06:33 07:03 WBC 6.9 RBC 4.83 Hgb 12.2 D Hct 37.3 MCV 77.3 L D MCH 25.3 L MCHC 32.7 L RDW 18.6 H Plt Count 271 MPV 8.8 Neut % (Auto) 72.2 Lymph % (Auto) 25.2 Schleicher % (Auto) 1.4 Eos % (Auto) 1.0 Baso % (Auto) 0.2 Neut # (Auto) 5.0 Lymph # (Auto) 1.7 [place]leicher # (Auto) 0.1 Eos # (Auto) 0.1 Baso # (Auto) 0.0 PT 12.7 H INR 1.1 APTT 22 Sodium 136 Potassium 2.5 L* D Chloride 100 Carbon Dioxide 26 Anion Gap 13 BUN 15 Creatinine 1.2 Est GFR ( Amer) > 60 Est GFR (Non-Af Amer) 60 Random Glucose 110 Lactic Acid Calcium 8.3 L Total Bilirubin 0.5 AST 27 ALT 39 Alkaline Phosphatase 68 Troponin I 0.0320 Total Protein 5.8 L Albumin 3.2 L Globulin 2.6 Albumin/Globulin Ratio 1.2 Lipase 191 Urine Color Urine Clarity Urine pH Ur Specific [place] Urine Protein Urine Glucose (UA) Urine Ketones Urine Blood Urine Nitrate Urine Bilirubin Urine Urobilinogen Ur Leukocyte Esterase Urine WBC (Auto) Urine RBC (Auto) Ur Squamous Epith Cells Urine Bacteria Hyaline Casts 07/28/17 07/28/17 07:05 09:10 WBC RBC Hgb Hct MCV MCH MCHC RDW Plt Count MPV Neut % (Auto) Lymph % (Auto) [place] % (Auto) Eos % (Auto) Baso % (Auto) Neut # (Auto) Lymph # (Auto) [place] # (Auto) Eos # (Auto) Baso # (Auto) PT INR APTT Sodium Potassium Chloride Carbon Dioxide Anion Gap BUN Creatinine Est GFR ( Amer) Est GFR (Non-Af Amer) Random Glucose Lactic Acid 2.4 H Calcium Total Bilirubin AST ALT Alkaline Phosphatase Troponin I Total Protein Albumin Globulin Albumin/Globulin Ratio Lipase Urine Color Yellow Urine Clarity Clear Urine pH 6.0 Ur Specific [place] 1.040 H Urine Protein Negative Urine Glucose (UA) Normal Urine Ketones Negative Urine Blood Negative Urine Nitrate Negative Urine Bilirubin Negative Urine Urobilinogen Normal Ur Leukocyte Esterase Neg Urine WBC (Auto) 1 Urine RBC (Auto) 1 Ur Squamous Epith Cells < 1 Urine Bacteria Rare Hyaline Casts 11-20 H Attending/Attestation - Attestation I have personally seen and examined this patient.: Yes I have fully participated in the care of the patient.: Yes I have reviewed all pertinent clinical information: Yes Notes (Text): 07/28/17 13:04 I have seen and examined patient with GI fellow. Agree with above documentation with the following additions. In brief, this is a 72 year old male with history of PVD s/p bilateral BKA, atrial fibrillation, CVA, epilepsy who presents to hospital with complaint of sudden onset abdominal pain which began yesterday. He describes a severe, 8/10 intensity epigastric pain that was associated with one episode of nausea and vomiting. He has not had any bowel movements for the past 24 hours, prior to this was having apparently normal daily bowel movements. He denies fever/chills, weight loss, or rectal bleeding. No prior endoscopic evaluation. Review of vitals from today are normal. Atrial fibrillation CVA PVD s/p bilateral BKA Epilepsy Constipation on chronic opiate therapy Abdominal pain - CT imaging reviewed by me showing large intraluminal colon lesion at hepatic flexure with cecal dilation and left sided fecal retention - Patient with obstructive features on clinical exam secondary to colon mass lesion - In this scenario, patient will be unable to tolerate PO bowel preparation in order to perform colonoscopy for tissue diagnosis - Follow up surgical recommendations - Will consult IR for CT guided biopsy of lesion - Obtain CEA - Continue with supportive care, avoid narcotic pain medication as this may worsen existing constipation. Would avoid aggressive enema and laxative use given obstructive features on exam. Will continue to monitor patient clinical course.
--- NOTE | 2017-07-28 16:29 | CP.PCM.HP ---
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) - RENAL Hx Chronic Kidney Disease: No - ENDOCRINE/METABOLIC Hx Endocrine Disorders: No - HEMATOLOGICAL/ONCOLOGICAL Hx Blood Disorders: No - INTEGUMENTARY Hx Dermatological Problems: No - MUSCULOSKELETAL/RHEUMATOLOGICAL Hx Musculoskeletal Disorders: No Hx Falls: No - GASTROINTESTINAL Hx Gastrointestinal Disorders: No - GENITOURINARY/GYNECOLOGICAL Hx Genitourinary Disorders: No - PSYCHIATRIC Hx Substance Use: No - SURGICAL HISTORY Hx Surgeries: Yes Hx Cardiac Catheterization: Yes Hx Musculoskeletal Surgery: Yes (Bilateral AKA) - ANESTHESIA Hx Anesthesia: Yes Hx Anesthesia Reactions: No Hx Malignant Hyperthermia: No Meds Allergies/Adverse Reactions: Allergies Allergy/AdvReac Type Severity Reaction Status Date / Time banana Allergy SWELLING Verified 07/28/17 05:15 pineapple Allergy SWELLING Verified 07/28/17 05:15 Physical Exam - Constitutional Appears: Well - Head Exam Head Exam: ATRAUMATIC, NORMAL INSPECTION, NORMOCEPHALIC - Eye Exam Eye Exam: EOMI, Normal appearance, PERRL Pupil Exam: NORMAL ACCOMODATION, PERRL - ENT Exam ENT Exam: Mucous Membranes Moist, Normal Exam - Neck Exam Neck exam: Positive for: Normal Inspection - Respiratory Exam Respiratory Exam: Decreased Breath Sounds - Cardiovascular Exam Cardiovascular Exam: REGULAR RHYTHM, +S1, +S2 - GI/Abdominal Exam GI & Abdominal Exam: Diminished Bowel Sounds, Soft - Rectal Exam Rectal Exam: Deferred Results - Vital Signs Recent Vital Signs: Last Vital Signs Temp 97.9 F 07/28/17 15:00 Pulse 92 H 07/28/17 15:00 Resp 20 07/28/17 15:00 BP 125/74 07/28/17 15:00 Pulse Ox 96 07/28/17 15:00 - Labs Result Diagrams: 07/28/17 07:03 07/28/17 06:33 Labs: Laboratory Results - last 24 hr 07/28/17 07/28/17 07/28/17 06:33 06:33 07:03 WBC 6.9 RBC 4.83 Hgb 12.2 D Hct 37.3 MCV 77.3 L D MCH 25.3 L MCHC 32.7 L RDW 18.6 H Plt Count 271 MPV 8.8 Neut % (Auto) 72.2 Lymph % (Auto) 25.2 [place] % (Auto) 1.4 Eos % (Auto) 1.0 Baso % (Auto) 0.2 Neut # (Auto) 5.0 Lymph # (Auto) 1.7 [place] # (Auto) 0.1 Eos # (Auto) 0.1 Baso # (Auto) 0.0 PT 12.7 H INR 1.1 APTT 22 Sodium 136 Potassium 2.5 L* D Chloride 100 Carbon Dioxide 26 Anion Gap 13 BUN 15 Creatinine 1.2 Est GFR ( Amer) > 60 Est GFR (Non-Af Amer) 60 Random Glucose 110 Lactic Acid Calcium 8.3 L Total Bilirubin 0.5 AST 27 ALT 39 Alkaline Phosphatase 68 Troponin I 0.0320 Total Protein 5.8 L Albumin 3.2 L Globulin 2.6 Albumin/Globulin Ratio 1.2 Lipase 191 Urine Color Urine Clarity Urine pH Ur Specific [place] Urine Protein Urine Glucose (UA) Urine Ketones Urine Blood Urine Nitrate Urine Bilirubin Urine Urobilinogen Ur Leukocyte Esterase Urine WBC (Auto) Urine RBC (Auto) Ur Squamous Epith Cells Urine Bacteria Hyaline Casts 07/28/17 07/28/17 07:05 09:10 WBC RBC Hgb Hct MCV MCH MCHC RDW Plt Count MPV Neut % (Auto) Lymph % (Auto) [place] % (Auto) Eos % (Auto) Baso % (Auto) Neut # (Auto) Lymph # (Auto) [place] # (Auto) Eos # (Auto) Baso # (Auto) PT INR APTT Sodium Potassium Chloride Carbon Dioxide Anion Gap BUN Creatinine Est GFR ( Amer) Est GFR (Non-Af Amer) Random Glucose Lactic Acid 2.4 H Calcium Total Bilirubin AST ALT Alkaline Phosphatase Troponin I Total Protein Albumin Globulin Albumin/Globulin Ratio Lipase Urine Color Yellow Urine Clarity Clear Urine pH 6.0 Ur Specific [place] 1.040 H Urine Protein Negative Urine Glucose (UA) Normal Urine Ketones Negative Urine Blood Negative Urine Nitrate Negative Urine Bilirubin Negative Urine Urobilinogen Normal Ur Leukocyte Esterase Neg Urine WBC (Auto) 1 Urine RBC (Auto) 1 Ur Squamous Epith Cells < 1 Urine Bacteria Rare Hyaline Casts 11-20 H
--- NOTE | 2017-07-28 17:46 | RAD ---
HISTORY: NGT placement COMPARISON: Chest x-ray performed 04/24/16 TECHNIQUE: Chest, one view. FINDINGS: Nasogastric tube extends beyond the hemidiaphragm towards expected location of the stomach. LUNGS: No focal consolidation. Please note that chest x-ray has limited sensitivity for the detection of pulmonary masses. PLEURA: No significant pleural effusion identified. No definite pneumothorax . CARDIOVASCULAR: Borderline cardiomegaly. OSSEOUS STRUCTURES: Degenerative changes. VISUALIZED UPPER ABDOMEN: Unremarkable. OTHER FINDINGS: None. IMPRESSION: Nasogastric tube extends to the expected location of the stomach.
[2017-07-28] MEDS: HYDROmorphone 0.5 mg/0.5 ml ISec IVP PRN (19:08)
[2017-07-28] MEDS ORDERED: Pneumococcal 23-Valent Vaccine IM ONE (19:16)
[2017-07-28 20:03] LABS: ALB/GLOB RATIO 1.1 (1.0-2.1); ALBUMIN 2.8 g/dL (3.5-5.0); ALT/SGPT 35 U/L (21-72); AST/SGOT 28 U/L (17-59); BLOOD UREA NITROGEN 20 mg/dL (9-20); CALCIUM 7.9 mg/dl (8.6-10.4); GFR AFRICAN-AMERICAN > 60; GFR NON-AFRICAN AMERICAN > 60
[2017-07-29] MEDS: HYDROmorphone 0.5 mg/0.5 ml ISec IVP PRN (01:33)
[2017-07-29 07:10] LABS: INR 1.6; PROTHROMBIN TIME 17.9 SECONDS (9.7-12.2)
[2017-07-29 07:16] LABS: HEMOGLOBIN 11.5 g/dL (12.0-18.0); LYMPH # 0.4 K/uL (1.0-4.3); LYMPH % 2.4 % (20.0-40.0); MEAN CELL VOLUME 76.3 fL (80.0-94.0); MEAN CORPUSCULAR HEMOGLOBIN 25.8 pg (27.0-31.0); MEAN CORPUSCULAR HGB CONC 33.8 g/dL (33.0-37.0); MEAN PLATELET VOLUME 8.9 fL (7.2-11.7); MONO # 0.3 K/uL (0.0-0.8); MONO % 1.7 % (0.0-10.0); NEUT % 95.9 % (50.0-75.0); PLATELET COUNT 245 K/uL (130-400); RBC 4.47 Mil/uL (4.40-5.90); RED CELL DISTRIBUTION WIDTH 18.3 % (11.5-14.5)
[2017-07-29 07:29] LABS: WHITE BLOOD COUNT 17.7 K/uL (4.8-10.8)
[2017-07-29 07:31] LABS: ALB/GLOB RATIO 1.1 (1.0-2.1); ALBUMIN 2.5 g/dL (3.5-5.0); ALT/SGPT 40 U/L (21-72); AST/SGOT 48 U/L (17-59); BLOOD UREA NITROGEN 28 mg/dL (9-20); CALCIUM 8.1 mg/dl (8.6-10.4); GFR AFRICAN-AMERICAN > 60; GFR NON-AFRICAN AMERICAN 54
[2017-07-29 08:41] LABS: BANDS 27 % (0-2); LYMPHOCYTE 3 % (20-40); METAMYELOCYTE 1 % (0-0); MONOCYTE 1 % (0-10); MYELOCYTE 2 % (0-0); NEUTROPHIL 65 % (50-75); PLATELET ESTIMATE NORMAL (NORMAL); PROMYELOCYTE 1 % (0-0); TOTAL CELLS COUNTED 100
[2017-07-29 08:42] LABS: ANISOCYTOSIS MODERATE; TOXIC GRANULATION PRESENT
[2017-07-29 08:43] LABS: LARGE PLATELETS PRESENT
--- NOTE | 2017-07-29 10:25 | CP.PCM.PN ---
Subjective - Date & Time of Evaluation Date of Evaluation: 07/29/17 Time of Evaluation: 10:30 - Subjective Subjective: PGY5 GI Fellow Progress Note Patient seen and examined bedside this morning. The patient states he is feeling better since the interval placement of an NGT to suction. States small BM with enema yesterday. Continues to have right sided abdominal pain. 12 system ROS performed and negative except where stated. Objective - Vital Signs/Intake and Output Vital Signs (last 24 hours): Temp Pulse Resp BP Pulse Ox 98.7 F 82 20 161/84 H 95 07/29/17 07:55 07/29/17 07:55 07/29/17 07:55 07/29/17 07:55 07/29/17 07:55 Intake and Output: 07/29/17 07/29/17 06:59 18:59 Intake Total 860 800 Output Total 450 250 Balance 410 550 - Medications Medications: Current Medications Amiodarone HCl (Cordarone) 200 mg PO DAILY [facility] Aspirin (Aspirin Chewable) 81 mg PO DAILY [facility] Chlorthalidone (Hygroton) 25 mg PO DAILY [facility] Diltiazem HCl (Cardizem Cd) 120 mg PO DAILY [facility] Docusate Sodium (Colace) 100 mg PO DAILY [facility] Last Admin: 07/28/17 12:14 Dose: 100 mg Finasteride (Proscar) 5 mg PO DAILY [facility] Gabapentin (Neurontin) 300 mg PO TID [facility] Last Admin: 07/28/17 19:09 Dose: 300 mg Hydromorphone HCl (Dilaudid) 0.5 mg IVP Q4H PRN PRN Reason: Pain, moderate (4-7) Last Admin: 07/29/17 01:33 Dose: 0.5 mg Potassium Chloride 10 meq/ (Lactated Ringer's) 1,005 mls @ 100 mls/hr IV .Q10H3M [facility] Last Admin: 07/29/17 05:41 Dose: 100 mls/hr Ceftriaxone Sodium 1 gm/ (Sodium Chloride) 100 mls @ 100 mls/hr IVPB Q24H [facility] Levetiracetam (Keppra) 500 mg PO BID [facility] Last Admin: 07/28/17 19:09 Dose: 500 mg Losartan Potassium (Cozaar) 25 mg PO DAILY [facility] Rosuvastatin Calcium (Crestor) 10 mg PO HS [facility] Last Admin: 07/28/17 22:19 Dose: 10 mg Tamsulosin HCl (Flomax) 0.4 mg PO DAILY [facility] Zolpidem Tartrate (Ambien) 5 mg PO HS [facility] Last Admin: 07/28/17 22:20 Dose: 5 mg - Labs Labs: 07/29/17 06:49 07/29/17 06:49 PT 17.9 SECONDS (9.7-12.2) H D 07/29/17 06:49 INR 1.6 D 07/29/17 06:49 APTT 22 SECONDS (21-34) 07/29/17 06:49 - Constitutional Appears: No Acute Distress, Chronically Ill - Eye Exam Eye Exam: EOMI, PERRL - ENT Exam ENT Exam: Mucous Membranes Dry - Respiratory Exam Respiratory Exam: Clear to Ausculation Bilateral. absent: Rales, Rhonchi, Wheezes - Cardiovascular Exam Cardiovascular Exam: Irregular Rhythm, +S1, +S2 - GI/Abdominal Exam GI & Abdominal Exam: Distended, Guarding, Soft, Tenderness (RUQ, LLQ), Normal Bowel Sounds. 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 -Severe constipation -Chronic opioid use -PVD, s/p B/L AKA on ASA/Plavix; currently not on AC -Rate controlled atrial fibrillation, not on AC Plan: -Cannot perform colonoscopy given advanced colonic obstruction -R colonic lesion not amenable to IR biopsy, recommend surgical evaluation for further intervention -NGT placed yesterday afternoon - to LIS - ~1L out in 24H -Patient last dose of Plavix was 07/27/17 -Recently had coumadin held for supratherapeutic INR, has not since been resumed on therapy - INR 1 -Antiemetics PRN -Try to avoid opiates as possible -Case discussed at length with patient's and daughter -No further recommendations at this time. Please re-consult as needed.
[2017-07-29] MEDS ORDERED: Glucagon Recombinant 1 mg Inj IM PRN (11:28)
[2017-07-29] MEDS: diltiaZEM 120 mg/24 Hours CD Cap PO SCH (11:45)
[2017-07-29] MEDS: Dextrose 50% SYRINGE Inj (50 ml) IV PRN ×3 (11:56→21:36)
--- NOTE | 2017-07-29 11:57 | CARD ---
APPROVED REPORT EKG Measurement Heart [id number] <Conclusion> Sinus rhythm with 1st degree AV block Left axis deviation Right bundle branch block Left ventricular hypertrophy with repolarization abnormality Inferior infarct, age undetermined Anterolateral infarct, age undetermined Abnormal ECG
[2017-07-29] MEDS: Dextrose 5%/0.45% NS 1,000 ML IV SCH ×2 (12:44→23:35)
--- NOTE | 2017-07-29 13:10 | CP.PCM.CON ---
History of Present Illness - History of Present Illness History of Present Illness: INFECTIOUS DISEASE CONSULT; Patient seen and chart reviewed. Labs and radiology and consultants noted. INFECTIOUS DISEASE CONSULTATION DICTATED. DICTATION NUMBER; # [id number]. SEE ORDER SHEET. IMPRESSION; -ABDOMINAL PAIN/CECAL MASS. -SEVERE CONSTIPATION/VOMITING R/O OBSTRUCTIVE BOWEL. -aTRIAL FIBRILLATION. -PVD S/P B/L AKA. -HX OF MULTIPLE CVAS. PLAN. pANCULTURES. NPO PER SURGERY NGT FOR DECOMPRESSION DC IV ROCEPHIN. START iv zOSYN 3.375 EVERY 8 HOURLY 07/29/17. START iv fLAGYL 500 EVERY 8 HOURLY 07/29/17. gENTLE LAXATIVES PER GI. aNTIEMETICS. fOLLOW-UP CULTURES TO ADJUST ANTIBIOTICS. 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) - RENAL Hx Chronic Kidney Disease: No - ENDOCRINE/METABOLIC Hx Endocrine Disorders: No - HEMATOLOGICAL/ONCOLOGICAL Hx Blood Disorders: No - INTEGUMENTARY Hx Dermatological Problems: No - MUSCULOSKELETAL/RHEUMATOLOGICAL Hx Musculoskeletal Disorders: No Hx Falls: No - GASTROINTESTINAL Hx Gastrointestinal Disorders: No - GENITOURINARY/GYNECOLOGICAL Hx Genitourinary Disorders: No - PSYCHIATRIC Hx Substance Use: No - SURGICAL HISTORY Hx Surgeries: Yes Hx Cardiac Catheterization: Yes Hx Musculoskeletal Surgery: Yes (Bilateral AKA) - ANESTHESIA Hx Anesthesia: Yes Hx Anesthesia Reactions: No Hx Malignant Hyperthermia: No Meds Allergies/Adverse Reactions: Allergies Allergy/AdvReac Type Severity Reaction Status Date / Time banana Allergy SWELLING Verified 07/28/17 05:15 pineapple Allergy SWELLING Verified 07/28/17 05:15 - Medications Medications: Current Medications Amiodarone HCl (Cordarone) 200 mg PO DAILY [facility] Last Admin: 07/29/17 11:42 Dose: 200 mg Aspirin (Aspirin Chewable) 81 mg PO DAILY [facility] Last Admin: 07/29/17 11:43 Dose: 81 mg Chlorthalidone (Hygroton) 25 mg PO DAILY [facility] Last Admin: 07/29/17 11:45 Dose: 25 mg Dextrose (Dextrose 50% Inj) 0 ml IV STAT PRN; Protocol PRN Reason: Hypoglycemia Protocol Last Admin: 07/29/17 11:56 Dose: 25 ml Dextrose (Glutose 15) 0 gm PO ONCE PRN; Protocol PRN Reason: Hypoglycemia Protocol Diltiazem HCl (Cardizem Cd) 120 mg PO DAILY [facility] Last Admin: 07/29/17 11:45 Dose: 120 mg Docusate Sodium (Colace) 100 mg PO DAILY [facility] Last Admin: 07/29/17 11:45 Dose: Not Given Finasteride (Proscar) 5 mg PO DAILY [facility] Last Admin: 07/29/17 11:45 Dose: 5 mg Gabapentin (Neurontin) 300 mg PO TID [facility] Last Admin: 07/29/17 11:43 Dose: 300 mg Glucagon (Glucagen Diagnostic Kit) 0 mg IM STAT PRN; Protocol PRN Reason: Hypoglycemia Protocol Hydromorphone HCl (Dilaudid) 0.5 mg IVP Q4H PRN PRN Reason: Pain, moderate (4-7) Last Admin: 07/29/17 01:33 Dose: 0.5 mg Ceftriaxone Sodium 1 gm/ (Sodium Chloride) 100 mls @ 100 mls/hr IVPB Q24H [facility] Last Admin: 07/29/17 12:59 Dose: 100 mls/hr Dextrose (Dextrose 5% In Water 1000 Ml) 1,000 mls @ 0 mls/hr IV .Q0M PRN; Protocol; Per Protocol PRN Reason: Hypoglycemia Protocol Dextrose/Sodium Chloride (Dextrose 5%/0.45% Ns 1000 Ml) 1,000 mls @ 100 mls/hr IV .Q10H [facility] Last Admin: 07/29/17 12:44 Dose: 100 mls/hr Levetiracetam (Keppra) 500 mg PO BID [facility] Last Admin: 07/29/17 11:43 Dose: 500 mg Losartan Potassium (Cozaar) 25 mg PO DAILY [facility] Last Admin: 07/29/17 11:43 Dose: 25 mg Ondansetron HCl (Zofran Inj) 4 mg IVP Q8H PRN PRN Reason: Nausea/Vomiting Last Admin: 07/29/17 11:57 Dose: 4 mg Rosuvastatin Calcium (Crestor) 10 mg PO HS [facility] Last Admin: 07/28/17 22:19 Dose: 10 mg Tamsulosin HCl (Flomax) 0.4 mg PO DAILY [facility] Last Admin: 07/29/17 11:43 Dose: 0.4 mg Zolpidem Tartrate (Ambien) 5 mg PO [facility] Last Admin: 07/28/17 22:20 Dose: 5 mg Results - Vital Signs Recent Vital Signs: Last Vital Signs Temp 98.7 F 07/29/17 07:55 Pulse 82 07/29/17 07:55 Resp 20 07/29/17 07:55 BP 161/84 H 07/29/17 07:55 Pulse Ox 95 07/29/17 07:55 - Labs Result Diagrams: 07/29/17 06:49 07/29/17 06:49 Labs: Laboratory Results - last 24 hr 07/28/17 07/28/17 07/28/17 18:39 19:44 20:46 WBC RBC Hgb Hct MCV MCH MCHC RDW Plt Count MPV Neut % (Auto) Lymph % (Auto) [place] % (Auto) Eos % (Auto) Baso % (Auto) Neut # (Auto) Lymph # (Auto) [place] # (Auto) Eos # (Auto) Baso # (Auto) Neutrophils % (Manual) Band Neutrophils % Lymphocytes % (Manual) Monocytes % (Manual) Metamyelocytes % Myelocytes % Promyelocytes % Toxic Granulation Platelet Estimate Large Platelets Anisocytosis (manual) PT INR APTT Sodium 132 Potassium 3.7 Chloride 98 Carbon Dioxide 24 Anion Gap 15 BUN 20 Creatinine 1.1 Est GFR ( Amer) > 60 Est GFR (Non-Af Amer) > 60 POC Glucose (mg/dL) 90 77 Random Glucose 81 Calcium 7.9 L Magnesium Total Bilirubin 0.8 AST 28 ALT 35 Alkaline Phosphatase 51 Total Protein 5.3 L Albumin 2.8 L Globulin 2.5 Albumin/Globulin Ratio 1.1 07/29/17 07/29/17 07/29/17 06:49 06:49 06:49 WBC 17.7 H D RBC 4.47 Hgb 11.5 L Hct 34.1 L MCV 76.3 L MCH 25.8 L MCHC 33.8 RDW 18.3 H Plt Count 245 MPV 8.9 Neut % (Auto) 95.9 H Lymph % (Auto) 2.4 L [place] % (Auto) 1.7 Eos % (Auto) 0.0 Baso % (Auto) 0.0 Neut # (Auto) 17.0 H Lymph # (Auto) 0.4 L [place] # (Auto) 0.3 Eos # (Auto) 0.0 Baso # (Auto) 0.0 Neutrophils % (Manual) 65 Band Neutrophils % 27 H* Lymphocytes % (Manual) 3 L Monocytes % (Manual) 1 Metamyelocytes % 1 H Myelocytes % 2 H Promyelocytes % 1 H Toxic Granulation Present Platelet Estimate Normal Large Platelets Present Anisocytosis (manual) Moderate PT 17.9 H D INR 1.6 D APTT 22 Sodium 132 Potassium 5.1 Chloride 99 Carbon Dioxide 23 Anion Gap 15 BUN 28 H Creatinine 1.3 Est GFR ( Amer) > 60 Est GFR (Non-Af Amer) 54 POC Glucose (mg/dL) Random Glucose 58 L Calcium 8.1 L Magnesium 2.5 H Total Bilirubin 0.9 AST 48 ALT 40 Alkaline Phosphatase 52 Total Protein 4.9 L Albumin 2.5 L Globulin 2.4 Albumin/Globulin Ratio 1.1 07/29/17 07/29/17 07/29/17 07:09 11:11 11:13 WBC RBC Hgb Hct MCV MCH MCHC RDW Plt Count MPV Neut % (Auto) Lymph % (Auto) [place] % (Auto) Eos % (Auto) Baso % (Auto) Neut # (Auto) Lymph # (Auto) [place] # (Auto) Eos # (Auto) Baso # (Auto) Neutrophils % (Manual) Band Neutrophils % Lymphocytes % (Manual) Monocytes % (Manual) Metamyelocytes % Myelocytes % Promyelocytes % Toxic Granulation Platelet Estimate Large Platelets Anisocytosis (manual) PT INR APTT Sodium Potassium Chloride Carbon Dioxide Anion Gap BUN Creatinine Est GFR ( Amer) Est GFR (Non-Af Amer) POC Glucose (mg/dL) 73 67 64 L Random Glucose Calcium Magnesium Total Bilirubin AST ALT Alkaline Phosphatase Total Protein Albumin Globulin Albumin/Globulin Ratio 07/29/17 12:24 WBC RBC Hgb Hct MCV MCH MCHC RDW Plt Count MPV Neut % (Auto) Lymph % (Auto) [place] % (Auto) Eos % (Auto) Baso % (Auto) Neut # (Auto) Lymph # (Auto) [place] # (Auto) Eos # (Auto) Baso # (Auto) Neutrophils % (Manual) Band Neutrophils % Lymphocytes % (Manual) Monocytes % (Manual) Metamyelocytes % Myelocytes % Promyelocytes % Toxic Granulation Platelet Estimate Large Platelets Anisocytosis (manual) PT INR APTT Sodium Potassium Chloride Carbon Dioxide Anion Gap BUN Creatinine Est GFR ( Amer) Est GFR (Non-Af Amer) POC Glucose (mg/dL) 95 Random Glucose Calcium Magnesium Total Bilirubin AST ALT Alkaline Phosphatase Total Protein Albumin Globulin Albumin/Globulin Ratio
--- NOTE | 2017-07-29 13:58 | CP.PCM.PN ---
Subjective - Date & Time of Evaluation Date of Evaluation: 07/29/17 Time of Evaluation: 09:00 - Subjective Subjective: clinically same Objective - Vital Signs/Intake and Output Vital Signs (last 24 hours): Temp Pulse Resp BP Pulse Ox 98.7 F 82 20 161/84 H 95 07/29/17 07:55 07/29/17 07:55 07/29/17 07:55 07/29/17 07:55 07/29/17 07:55 Intake and Output: 07/29/17 07/29/17 06:59 18:59 Intake Total 860 800 Output Total 450 250 Balance 410 550 - Medications Medications: Current Medications Amiodarone HCl (Cordarone) 200 mg PO DAILY [facility] Last Admin: 07/29/17 11:42 Dose: 200 mg Aspirin (Aspirin Chewable) 81 mg PO DAILY [facility] Last Admin: 07/29/17 11:43 Dose: 81 mg Chlorthalidone (Hygroton) 25 mg PO DAILY [facility] Last Admin: 07/29/17 11:45 Dose: 25 mg Dextrose (Dextrose 50% Inj) 0 ml IV STAT PRN; Protocol PRN Reason: Hypoglycemia Protocol Last Admin: 07/29/17 11:56 Dose: 25 ml Dextrose (Glutose 15) 0 gm PO ONCE PRN; Protocol PRN Reason: Hypoglycemia Protocol Diltiazem HCl (Cardizem Cd) 120 mg PO DAILY [facility] Last Admin: 07/29/17 11:45 Dose: 120 mg Docusate Sodium (Colace) 100 mg PO DAILY [facility] Last Admin: 07/29/17 11:45 Dose: Not Given Finasteride (Proscar) 5 mg PO DAILY [facility] Last Admin: 07/29/17 11:45 Dose: 5 mg Gabapentin (Neurontin) 300 mg PO TID [facility] Last Admin: 07/29/17 11:43 Dose: 300 mg Glucagon (Glucagen Diagnostic Kit) 0 mg IM STAT PRN; Protocol PRN Reason: Hypoglycemia Protocol Hydromorphone HCl (Dilaudid) 0.5 mg IVP Q4H PRN PRN Reason: Pain, moderate (4-7) Last Admin: 07/29/17 01:33 Dose: 0.5 mg Dextrose (Dextrose 5% In Water 1000 Ml) 1,000 mls @ 0 mls/hr IV .Q0M PRN; Protocol; Per Protocol PRN Reason: Hypoglycemia Protocol Dextrose/Sodium Chloride (Dextrose 5%/0.45% Ns 1000 Ml) 1,000 mls @ 100 mls/hr IV .Q10H [facility] Last Admin: 07/29/17 12:44 Dose: 100 mls/hr Piperacillin Sod/Tazobactam (Sod 3.375 gm/ Sodium Chloride) 100 mls @ 200 mls/ hr IVPB Q8H [facility] Levetiracetam (Keppra) 500 mg PO BID [facility] Last Admin: 07/29/17 11:43 Dose: 500 mg Losartan Potassium (Cozaar) 25 mg PO DAILY [facility] Last Admin: 07/29/17 11:43 Dose: 25 mg Ondansetron HCl (Zofran Inj) 4 mg IVP Q8H PRN PRN Reason: Nausea/Vomiting Last Admin: 07/29/17 11:57 Dose: 4 mg Rosuvastatin Calcium (Crestor) 10 mg PO HS [facility] Last Admin: 07/28/17 22:19 Dose: 10 mg Tamsulosin HCl (Flomax) 0.4 mg PO DAILY [facility] Last Admin: 07/29/17 11:43 Dose: 0.4 mg Zolpidem Tartrate (Ambien) 5 mg PO HS [facility] Last Admin: 07/28/17 22:20 Dose: 5 mg - Labs Labs: 07/29/17 06:49 07/29/17 06:49 PT 17.9 SECONDS (9.7-12.2) H D 07/29/17 06:49 INR 1.6 D 07/29/17 06:49 APTT 22 SECONDS (21-34) 07/29/17 06:49 - Constitutional Appears: Well - Head Exam Head Exam: ATRAUMATIC, NORMAL INSPECTION, NORMOCEPHALIC - Eye Exam Eye Exam: EOMI, Normal appearance, PERRL Pupil Exam: NORMAL ACCOMODATION, PERRL - ENT Exam ENT Exam: Mucous Membranes Moist, Normal Exam - Neck Exam Neck Exam: Full ROM, Normal Inspection. absent: Lymphadenopathy - Respiratory Exam Respiratory Exam: Decreased Breath Sounds - Cardiovascular Exam Cardiovascular Exam: REGULAR RHYTHM, +S1, +S2 - GI/Abdominal Exam GI & Abdominal Exam: Soft, Diminished Bowel Sounds - Rectal Exam Rectal Exam: Deferred
--- NOTE | 2017-07-29 14:54 | CP.PCM.PN ---
Subjective - Date & Time of Evaluation Date of Evaluation: 07/29/17 Time of Evaluation: 10:50 - Subjective Subjective: General Surgery- Dr. Patel Pt s&E at bedside this AM. No acute events overnight. Continued ABD pain. + small BM. Denies Flatus. Denies F/C SOB. NGT in place >1L s/p placement. . Objective - Vital Signs/Intake and Output Vital Signs (last 24 hours): Temp Pulse Resp BP Pulse Ox 98.7 F 82 20 161/84 H 95 07/29/17 07:55 07/29/17 07:55 07/29/17 07:55 07/29/17 07:55 07/29/17 07:55 Intake and Output: 07/29/17 07/29/17 06:59 18:59 Intake Total 860 1660 Output Total 450 350 Balance 410 1310 - Medications Medications: Current Medications Amiodarone HCl (Cordarone) 200 mg PO DAILY [facility] Last Admin: 07/29/17 11:42 Dose: 200 mg Aspirin (Aspirin Chewable) 81 mg PO DAILY [facility] Last Admin: 07/29/17 11:43 Dose: 81 mg Chlorthalidone (Hygroton) 25 mg PO DAILY [facility] Last Admin: 07/29/17 11:45 Dose: 25 mg Dextrose (Dextrose 50% Inj) 0 ml IV STAT PRN; Protocol PRN Reason: Hypoglycemia Protocol Last Admin: 07/29/17 11:56 Dose: 25 ml Dextrose (Glutose 15) 0 gm PO ONCE PRN; Protocol PRN Reason: Hypoglycemia Protocol Diltiazem HCl (Cardizem Cd) 120 mg PO DAILY [facility] Last Admin: 07/29/17 11:45 Dose: 120 mg Docusate Sodium (Colace) 100 mg PO DAILY [facility] Last Admin: 07/29/17 11:45 Dose: Not Given Finasteride (Proscar) 5 mg PO DAILY [facility] Last Admin: 07/29/17 11:45 Dose: 5 mg Gabapentin (Neurontin) 300 mg PO TID [facility] Last Admin: 07/29/17 11:43 Dose: 300 mg Glucagon (Glucagen Diagnostic Kit) 0 mg IM STAT PRN; Protocol PRN Reason: Hypoglycemia Protocol Hydromorphone HCl (Dilaudid) 0.5 mg IVP Q4H PRN PRN Reason: Pain, moderate (4-7) Last Admin: 07/29/17 01:33 Dose: 0.5 mg Dextrose (Dextrose 5% In Water 1000 Ml) 1,000 mls @ 0 mls/hr IV .Q0M PRN; Protocol; Per Protocol PRN Reason: Hypoglycemia Protocol Dextrose/Sodium Chloride (Dextrose 5%/0.45% Ns 1000 Ml) 1,000 mls @ 100 mls/hr IV .Q10H [facility] Last Admin: 07/29/17 12:44 Dose: 100 mls/hr Piperacillin Sod/Tazobactam (Sod 3.375 gm/ Sodium Chloride) 100 mls @ 200 mls/ hr IVPB Q8H [facility] Levetiracetam (Keppra) 500 mg PO BID [facility] Last Admin: 07/29/17 11:43 Dose: 500 mg Losartan Potassium (Cozaar) 25 mg PO DAILY [facility] Last Admin: 07/29/17 11:43 Dose: 25 mg Ondansetron HCl (Zofran Inj) 4 mg IVP Q8H PRN PRN Reason: Nausea/Vomiting Last Admin: 07/29/17 11:57 Dose: 4 mg Rosuvastatin Calcium (Crestor) 10 mg PO HS [facility] Last Admin: 07/28/17 22:19 Dose: 10 mg Tamsulosin HCl (Flomax) 0.4 mg PO DAILY [facility] Last Admin: 07/29/17 11:43 Dose: 0.4 mg Zolpidem Tartrate (Ambien) 5 mg PO HS [facility] Last Admin: 07/28/17 22:20 Dose: 5 mg - Labs Labs: 07/29/17 06:49 07/29/17 06:49 PT 17.9 SECONDS (9.7-12.2) H D 07/29/17 06:49 INR 1.6 D 07/29/17 06:49 APTT 22 SECONDS (21-34) 07/29/17 06:49 - Constitutional Appears: Non-toxic, No Acute Distress - Eye Exam Eye Exam: EOMI. absent: Scleral icterus - Respiratory Exam Respiratory Exam: NORMAL BREATHING PATTERN. absent: Accessory Muscle Use, Respiratory Distress - Cardiovascular Exam Cardiovascular Exam: +S1, +S2. absent: Bradycardia, Tachycardia - GI/Abdominal Exam GI & Abdominal Exam: Distended, Soft. absent: Firm, Guarding, Rigid, Tenderness Additional comments: abd soft, distended, non-peritoneal - Neurological Exam Neurological Exam: Alert, Awake, Oriented x3 - Psychiatric Exam Psychiatric exam: Normal Affect - Skin Skin Exam: Intact, Warm Assessment and Plan - Assessment and Plan (Free Text) Assessment: 72M hx A.Fib CVA, epilepsy, b/l BKA; bowel obstruction 2/2 colonic lesion Case discussed w/ IR and GI; unable to obtain tissue diagnosis given location and inability for proper bowel prep. Plan: - NGT to suction - NPO - IVF - plan for colon resection on Thursday - gi/dvt ppx - discussed w/ Dr. Patel surgical attending
[2017-07-29] MEDS ORDERED: Dextrose 50% SYRINGE Inj (50 ml) ONE ×2 (16:59→21:34)
[2017-07-29] MEDS: Piperacillin/Tazobact 3.375 GM in Sodium Chloride 100 ML IVPB SCH (18:11)
[2017-07-29] MEDS ORDERED: Acetaminophen 650mg/20.3ml solution UD NG PRN (21:29)
[2017-07-29] MEDS: POLYETHYLENE GLYCOL 3350 17 GM/Dose PACKET NG SCH (22:31)
[2017-07-29] MEDS: metroNIDAZOLE IV 500 mg/100 ml 500 MG/100 ML BAG IVPB SCH (23:47)
[2017-07-30] MEDS ORDERED: Sodium Chloride 0.9% 500 ML IV ONE (00:40)
[2017-07-30] MEDS ORDERED: Dextrose 50% SYRINGE Inj (50 ml) IV STA (00:43)
--- NOTE | 2017-07-30 00:44 | PCM.RRT ---
[employer] Nurses Assessment - Situation Date: 07/30/17 - Constitutional Appears: No Acute Distress (sleeping) - Head Head Exam: NORMAL INSPECTION - Respiratory Exam Respiratory Exam: NORMAL BREATHING PATTERN. absent: Rhonchi, Wheezes, Respiratory Distress - Cardiovascular Exam Cardiovascular Exam: +S1, +S2 - GI/Abdominal Exam GI & Abdominal Exam: absent: Distended - Neurological Exam Neurological Exam: absent: Awake (sleeping) - Extremities Exam Extremities Exam: absent: Normal Inspection (b/l AKA) Plan - Assessment of Findings&Treatment Plan [employer] was called for hypotension. Patient's vitals were 76/45, O2 sat 98%, HR 77, glucose 70. Patient is lethargic but responsive to painful stimuli (patient was given Ambien at 10:29pm). Vital were retaken: BP 93/52, O2 sat 100%, HR 70. NS IV bolus started. CBC, CMP, Mag, Phos, VGB, and blood cultures were ordered stat. 1/2 amp of D50 was given. Vitals rechecked: 99/46, HR 75, Glucose 128. Patient laying comfortably, sleeping. After bolusing 750cc NS, patient's BP increased to 110/78.
[2017-07-30 01:21] LABS: BASO % 0.1 % (0.0-2.0); HEMOGLOBIN 9.9 g/dL (12.0-18.0); LYMPH # 0.4 K/uL (1.0-4.3); LYMPH % 3.5 % (20.0-40.0); MEAN CORPUSCULAR HEMOGLOBIN 25.4 pg (27.0-31.0); MEAN CORPUSCULAR HGB CONC 33.5 g/dL (33.0-37.0); MEAN PLATELET VOLUME 8.7 fL (7.2-11.7); MONO # 0.1 K/uL (0.0-0.8); MONO % 0.5 % (0.0-10.0); NEUT # 11.4 K/uL (1.8-7.0); NEUT % 95.9 % (50.0-75.0); PLATELET COUNT 198 K/uL (130-400); RBC 3.89 Mil/uL (4.40-5.90); RED CELL DISTRIBUTION WIDTH 18.3 % (11.5-14.5); WHITE BLOOD COUNT 11.9 K/uL (4.8-10.8)
[2017-07-30 01:27] LABS: VENOUS BLOOD GAS BASE EXCESS 2.7 mmol/L (0.0-2.0); VENOUS BLOOD GAS PCO2 44 mmHg (40-60); VENOUS BLOOD GAS PO2 52 mm/Hg (30-55); VENOUS BLOOD PH 7.41 (7.32-7.43)
[2017-07-30] MEDS: Piperacillin/Tazobact 3.375 GM in Sodium Chloride 100 ML IVPB SCH ×3 (01:54→18:39)
[2017-07-30 02:16] LABS: BANDS 7 % (0-2); LYMPHOCYTE 5 % (20-40); MONOCYTE 2 % (0-10); NEUTROPHIL 86 % (50-75); TOTAL CELLS COUNTED 100
[2017-07-30 02:17] LABS: ANISOCYTOSIS SLIGHT; PLATELET ESTIMATE NORMAL (NORMAL); POIKILOCYTOSIS SLIGHT
[2017-07-30] MEDS: metroNIDAZOLE IV 500 mg/100 ml 500 MG/100 ML BAG IVPB SCH ×3 (06:09→21:27)
[2017-07-30 08:20] LABS: INR 1.3
[2017-07-30 08:42] LABS: ALB/GLOB RATIO 0.9 (1.0-2.1); ALBUMIN 2.2 g/dL (3.5-5.0); CALCIUM 7.3 mg/dl (8.6-10.4)
--- NOTE | 2017-07-30 09:32 | CON ---
DATE: HISTORY OF PRESENT ILLNESS: A 72-year-old male with past medical significant history for atrial fibrillation, previously on Coumadin with history of multiple CVA, on aspirin and Plavix, severe peripheral vascular disease with bilateral [id number], epilepsy, who presented to the ED with abdominal pain of one day duration. The patient states his abdominal pain started suddenly on the day of admission. He states he has been fairly constipated for the last one or two days and was also seeming very nauseous and vomited several times prior to arrival. The patient in the ER underwent a CT of the abdomen and pelvis with IV contrast which showed a soft tissue mass in the hepatic flexure of the abdomen and no bowel obstruction. Also, severe constipation was noted with small amount of free fluid in the abdomen and pelvis. There was fecalization of the small bowel also seen. The patient was started on IV antibiotics empirically and kept n.p.o. for further evaluation. Surgical consult was also obtained. 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 The patient also presently still continues to have diffuse abdominal pain, nausea, and also complaining of dry cough. I was asked to see the patient today by PMD, Dr. Bernice Vines, because of increasing leukocytosis of 17.7 with 27% bandemia. The patient is presently on IV Rocephin 1 gm once a day. Chest x-ray on admission showed no consolidation. The patient denies any chills at present. He denies any fever, weight loss, or any history of melena. PAST MEDICAL HISTORY: As above. PAST SURGICAL HISTORY: Consist of bilateral above-knee amputation in 02/2017 for acute limb ischemia. FAMILY HISTORY: Unremarkable. No history of malignancy. SOCIAL HISTORY: The patient denies tobacco, alcohol use, or use of any illicit drugs. REVIEW OF SYSTEMS: Presently, the patient has an NG tube and complaining of diffuse abdominal pain. Also complains of cough. Denies any chest pains. Denies any seizure activity. The rest of the review of systems is unremarkable. PHYSICAL EXAMINATION: GENERAL: The patient is awake and alert, in mild distress. VITAL SIGNS: Presently afebrile, blood pressure 110/80, respirations 20, and pulse of 72. HEENT: Pupils are equal and reactive to light and accommodation. Extraocular movements full. Fundus negative. Sclerae nonicteric. Conjunctivae normal. JVP not elevated. NECK: Appears to be supple. LUNGS: Diminished breath houses at the bases. CARDIOVASCULAR SYSTEM: S1 and S2 regular. ABDOMEN: Soft, but tenderness generalized elicited especially epigastric and mid abdomen. Bowel sounds hypoactive. EXTREMITIES: Bilateral above-knee amputation. APPLIED TECHNOLOGIST: Awake, responsive, moves upper extremities. LABORATORY DATA: WBC 17.7, H and H of 11.5, platelet 245. Creatinine is 1.3. BUN of 28. Potassium 5.1, total bilirubin 0.9. AST normal, 48. ALT normal. Alkaline phosphatase is normal. Urinalysis is unremarkable, except for 11 to 20 hyaline cast seen. Chest x-ray reported negative for consolidation. CT of the abdomen and pelvis with IV contrast 07/28/2017 as reported above soft tissue mass, hepatic flexure. No bowel obstruction, severe constipation, and fecalization of small bowel with small amount of free fluid in the abdomen and pelvis. ALLERGIES: NONE KNOWN EXCEPT FOR BANANA AND PINEAPPLE. IMPRESSION: 1. Abdominal pain, cecal mass. 2. Severe constipation with vomiting, rule out obstructive bowel, partial. 3. History of atrial fibrillation. 4. Status post bilateral above-knee amputation and severe peripheral vascular disease. 5. History of multiple CVA. PLAN: Fung cultures. The patient is presently n.p.o. as per GI and Surgery. DC IV Rocephin. Start IV Zosyn 3.375 mg every 8 hours for enterococcal as well as gram negative coverage. We will add IV Flagyl 500 every 8 hours for anaerobic coverage. Gentle laxative therapy as suggested by GI and . We will follow the patient along with you and make any further recommendations as needed, both GI and Surgery on board. Thank you very much for allowing me to participate in the care of your patient. We will follow along with you. Aamir Hogan MD
[2017-07-30] MEDS ORDERED: Influenza Vaccine 60 mcg/0.5 mL SYR (4YR UP) IM ONE (10:00)
[2017-07-30] MEDS: POLYETHYLENE GLYCOL 3350 17 GM/Dose PACKET NG SCH ×3 (10:49→18:41)
[2017-07-30] MEDS: diltiaZEM 120 mg/24 Hours CD Cap PO SCH (10:50)
[2017-07-30 13:40] LABS: ALBUMIN 2.1 g/dL (3.5-5.0); CALCIUM 7.6 mg/dl (8.6-10.4)
--- NOTE | 2017-07-30 14:13 | CP.PCM.PN ---
Subjective - Date & Time of Evaluation Date of Evaluation: 07/30/17 Time of Evaluation: 06:30 - Subjective Subjective: General surgery progress note for Dr. Nkechi Ashford, PGY-1 Pt S & E at bedside. Pt reports continued abdominal pain, slightly improved. NGT w/dark green bilious output- approximately 200. [employer] called overnight due to hypotension, transferred to [facility]. Objective - Vital Signs/Intake and Output Vital Signs (last 24 hours): Temp Pulse Resp BP Pulse Ox 98.6 F 76 20 121/66 94 L 07/30/17 08:00 07/30/17 08:37 07/30/17 08:00 07/30/17 08:00 07/30/17 08:00 Intake and Output: 07/30/17 07/30/17 06:59 18:59 Intake Total 1000 Output Total 275 Balance 725 - Medications Medications: Current Medications Acetaminophen (Tylenol 650mg/20.3ml Solution Ud) 650 mg NG Q6 PRN PRN Reason: fever Last Admin: 07/29/17 22:31 Dose: 650 mg Amiodarone HCl (Cordarone) 200 mg PO DAILY [facility] Last Admin: 07/30/17 10:50 Dose: 200 mg Aspirin (Aspirin Chewable) 81 mg PO DAILY [facility] Last Admin: 07/30/17 10:50 Dose: 81 mg Chlorthalidone (Hygroton) 25 mg PO DAILY [facility] Last Admin: 07/30/17 10:50 Dose: 25 mg Dextrose (Dextrose 50% Inj) 0 ml IV STAT PRN; Protocol PRN Reason: Hypoglycemia Protocol Last Admin: 07/29/17 21:36 Dose: 25 ml Dextrose (Glutose 15) 0 gm PO ONCE PRN; Protocol PRN Reason: Hypoglycemia Protocol Diltiazem HCl (Cardizem Cd) 120 mg PO DAILY [facility] Last Admin: 07/30/17 10:50 Dose: 120 mg Docusate Sodium (Colace) 100 mg PO DAILY [facility] Last Admin: 07/30/17 10:50 Dose: 100 mg Finasteride (Proscar) 5 mg PO DAILY [facility] Last Admin: 07/30/17 10:50 Dose: 5 mg Gabapentin (Neurontin) 300 mg PO TID [facility] Last Admin: 07/30/17 10:49 Dose: 300 mg Glucagon (Glucagen Diagnostic Kit) 0 mg IM STAT PRN; Protocol PRN Reason: Hypoglycemia Protocol Hydromorphone HCl (Dilaudid) 0.5 mg IVP Q4H PRN PRN Reason: Pain, moderate (4-7) Last Admin: 07/29/17 01:33 Dose: 0.5 mg Dextrose (Dextrose 5% In Water 1000 Ml) 1,000 mls @ 0 mls/hr IV .Q0M PRN; Protocol; Per Protocol PRN Reason: Hypoglycemia Protocol Last Admin: 07/29/17 21:50 Dose: 100 mls/hr Dextrose/Sodium Chloride (Dextrose 5%/0.45% Ns 1000 Ml) 1,000 mls @ 100 mls/hr IV .Q10H [facility] Last Admin: 07/29/17 23:35 Dose: Not Given Piperacillin Sod/Tazobactam (Sod 3.375 gm/ Sodium Chloride) 100 mls @ 200 mls/ hr IVPB Q8H [facility] Last Admin: 07/30/17 10:56 Dose: 200 mls/hr Metronidazole (Flagyl) 500 mg in 100 mls @ 100 mls/hr IVPB Q8 [facility] Last Admin: 07/30/17 06:09 Dose: 100 mls/hr Levetiracetam (Keppra) 500 mg PO BID [facility] Last Admin: 07/30/17 10:50 Dose: 500 mg Losartan Potassium (Cozaar) 25 mg PO DAILY [facility] Last Admin: 07/30/17 10:49 Dose: 25 mg Ondansetron HCl (Zofran Inj) 4 mg IVP Q8H PRN PRN Reason: Nausea/Vomiting Last Admin: 07/29/17 11:57 Dose: 4 mg Polyethylene Glycol (Miralax) 17 gm NG TID [facility] Last Admin: 07/30/17 10:49 Dose: 17 gm Rosuvastatin Calcium (Crestor) 10 mg PO HS [facility] Last Admin: 07/29/17 22:29 Dose: 10 mg Tamsulosin HCl (Flomax) 0.4 mg PO DAILY [facility] Last Admin: 07/30/17 10:50 Dose: 0.4 mg Zolpidem Tartrate (Ambien) 5 mg PO HS [facility] Last Admin: 07/29/17 22:29 Dose: 5 mg - Labs Labs: 07/30/17 01:11 07/30/17 08:02 PT 15.0 SECONDS (9.7-12.2) H 02/22/18 08:02 INR 1.3 07/30/17 08:02 APTT 34 SECONDS (21-34) D 07/30/17 08:02 - Constitutional Appears: Non-toxic, No Acute Distress - Head Exam Head Exam: ATRAUMATIC, NORMAL INSPECTION, NORMOCEPHALIC - Eye Exam Eye Exam: EOMI, Normal appearance - ENT Exam ENT Exam: Mucous Membranes Moist, Normal Exam Additional comments: NGT in place - Neck Exam Neck Exam: Full ROM, Normal Inspection - Respiratory Exam Respiratory Exam: NORMAL BREATHING PATTERN - Cardiovascular Exam Cardiovascular Exam: REGULAR RHYTHM, +S1, +S2 - GI/Abdominal Exam GI & Abdominal Exam: Distended, Soft, Tenderness. absent: Firm, Guarding, Rigid - Extremities Exam Extremities Exam: absent: Normal Inspection (B/L AKA) - Neurological Exam Neurological Exam: Alert, Awake, CN II-XII Intact, Oriented x3 - Psychiatric Exam Psychiatric exam: Normal Affect, Normal Mood - Skin Skin Exam: Dry, Intact, Normal Color, Warm Assessment and Plan - Assessment and Plan (Free Text) Assessment: 72M hx A.Fib CVA, epilepsy, b/l BKA; bowel obstruction 2/2 colonic lesion Case discussed w/ IR and GI; unable to obtain tissue diagnosis given location and inability for proper bowel prep. Plan: NGT to suction- low intermittent NPO IVF Pain control Plan for colon resection on 07/31 Will need to consent patient/family GI/DVT ppx Will DW attending [place], PGY-1
--- NOTE | 2017-07-30 17:26 | CP.PCM.PN ---
Subjective - Date & Time of Evaluation Date of Evaluation: 07/30/17 Time of Evaluation: 16:40 - Subjective Subjective: pt clinically same Objective - Vital Signs/Intake and Output Vital Signs (last 24 hours): Temp Pulse Resp BP Pulse Ox 99.5 F 87 19 129/71 99 07/30/17 15:00 07/30/17 15:52 07/30/17 15:00 07/30/17 15:00 07/30/17 15:00 Intake and Output: 07/30/17 07/30/17 06:59 18:59 Intake Total 1000 Output Total 275 Balance 725 - Medications Medications: Current Medications Acetaminophen (Tylenol 650mg/20.3ml Solution Ud) 650 mg NG Q6 PRN PRN Reason: fever Last Admin: 07/29/17 22:31 Dose: 650 mg Amiodarone HCl (Cordarone) 200 mg PO DAILY [facility] Last Admin: 07/30/17 10:50 Dose: 200 mg Aspirin (Aspirin Chewable) 81 mg PO DAILY [facility] Last Admin: 07/30/17 10:50 Dose: 81 mg Chlorthalidone (Hygroton) 25 mg PO DAILY [facility] Last Admin: 07/30/17 10:50 Dose: 25 mg Dextrose (Dextrose 50% Inj) 0 ml IV STAT PRN; Protocol PRN Reason: Hypoglycemia Protocol Last Admin: 07/29/17 21:36 Dose: 25 ml Dextrose (Glutose 15) 0 gm PO ONCE PRN; Protocol PRN Reason: Hypoglycemia Protocol Diltiazem HCl (Cardizem Cd) 120 mg PO DAILY [facility] Last Admin: 07/30/17 10:50 Dose: 120 mg Docusate Sodium (Colace) 100 mg PO DAILY [facility] Last Admin: 07/30/17 10:50 Dose: 100 mg Finasteride (Proscar) 5 mg PO DAILY [facility] Last Admin: 07/30/17 10:50 Dose: 5 mg Gabapentin (Neurontin) 300 mg PO TID [facility] Last Admin: 07/30/17 14:26 Dose: 300 mg Glucagon (Glucagen Diagnostic Kit) 0 mg IM STAT PRN; Protocol PRN Reason: Hypoglycemia Protocol Hydromorphone HCl (Dilaudid) 0.5 mg IVP Q4H PRN PRN Reason: Pain, moderate (4-7) Last Admin: 07/29/17 01:33 Dose: 0.5 mg Dextrose (Dextrose 5% In Water 1000 Ml) 1,000 mls @ 0 mls/hr IV .Q0M PRN; Protocol; Per Protocol PRN Reason: Hypoglycemia Protocol Last Admin: 07/29/17 21:50 Dose: 100 mls/hr Dextrose/Sodium Chloride (Dextrose 5%/0.45% Ns 1000 Ml) 1,000 mls @ 100 mls/hr IV .Q10H [facility] Last Admin: 07/29/17 23:35 Dose: Not Given Piperacillin Sod/Tazobactam (Sod 3.375 gm/ Sodium Chloride) 100 mls @ 200 mls/ hr IVPB Q8H [facility] Last Admin: 07/30/17 10:56 Dose: 200 mls/hr Metronidazole (Flagyl) 500 mg in 100 mls @ 100 mls/hr IVPB Q8 [facility] Last Admin: 07/30/17 14:26 Dose: 100 mls/hr Levetiracetam (Keppra) 500 mg PO BID [facility] Last Admin: 07/30/17 10:50 Dose: 500 mg Losartan Potassium (Cozaar) 25 mg PO DAILY [facility] Last Admin: 07/30/17 10:49 Dose: 25 mg Ondansetron HCl (Zofran Inj) 4 mg IVP Q8H PRN PRN Reason: Nausea/Vomiting Last Admin: 07/29/17 11:57 Dose: 4 mg Polyethylene Glycol (Miralax) 17 gm NG TID [facility] Last Admin: 07/30/17 14:26 Dose: 17 gm Rosuvastatin Calcium (Crestor) 10 mg PO HS [facility] Last Admin: 07/29/17 22:29 Dose: 10 mg Tamsulosin HCl (Flomax) 0.4 mg PO DAILY [facility] Last Admin: 07/30/17 10:50 Dose: 0.4 mg Zolpidem Tartrate (Ambien) 5 mg PO HS [facility] Last Admin: 07/29/17 22:29 Dose: 5 mg - Labs Labs: 07/30/17 01:11 07/30/17 08:02 PT 15.0 SECONDS (9.7-12.2) H 07/30/17 08:02 INR 1.3 07/30/17 08:02 APTT 34 SECONDS (21-34) D 07/30/17 08:02
--- NOTE | 2017-07-30 17:44 | CP.PCM.CON ---
<ShaunStanislav - Last Filed: 07/30/17 19:54> History of Present Illness - History of Present Illness History of Present Illness: Cardiology Consult Note for Dr. Brown 72 year old male with history of Peripheral Vascular Disease s/p bilateral BKA, atrial fibrillation, CVA, and epilepsy who presented to [facility] for abdominal pain and constipation. CT of the abdomen and pelvis showed constipation, extending into the small bowel. GI deferred colonoscopy. Cardiology was consulted for a non-cardiac surgical risk assessment. 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) - RENAL Hx Chronic Kidney Disease: No - ENDOCRINE/METABOLIC Hx Endocrine Disorders: No - HEMATOLOGICAL/ONCOLOGICAL Hx Blood Disorders: No - INTEGUMENTARY Hx Dermatological Problems: No - MUSCULOSKELETAL/RHEUMATOLOGICAL Hx Musculoskeletal Disorders: No Hx Falls: No - GASTROINTESTINAL Hx Gastrointestinal Disorders: No - GENITOURINARY/GYNECOLOGICAL Hx Genitourinary Disorders: No - PSYCHIATRIC Hx Substance Use: No - SURGICAL HISTORY Hx Surgeries: Yes Hx Cardiac Catheterization: Yes Hx Musculoskeletal Surgery: Yes (Bilateral AKA) - ANESTHESIA Hx Anesthesia: Yes Hx Anesthesia Reactions: No Hx Malignant Hyperthermia: No Meds Allergies/Adverse Reactions: Allergies Allergy/AdvReac Type Severity Reaction Status Date / Time banana Allergy SWELLING Verified 07/28/17 05:15 pineapple Allergy SWELLING Verified 07/28/17 05:15 - Medications Medications: Current Medications Acetaminophen (Tylenol 650mg/20.3ml Solution Ud) 650 mg NG Q6 PRN PRN Reason: fever Last Admin: 07/29/17 22:31 Dose: 650 mg Amiodarone HCl (Cordarone) 200 mg PO DAILY [facility] Last Admin: 07/30/17 10:50 Dose: 200 mg Aspirin (Aspirin Chewable) 81 mg PO DAILY [facility] Last Admin: 07/30/17 10:50 Dose: 81 mg Chlorthalidone (Hygroton) 25 mg PO DAILY [facility] Last Admin: 07/30/17 10:50 Dose: 25 mg Dextrose (Dextrose 50% Inj) 0 ml IV STAT PRN; Protocol PRN Reason: Hypoglycemia Protocol Last Admin: 07/29/17 21:36 Dose: 25 ml Dextrose (Glutose 15) 0 gm PO ONCE PRN; Protocol PRN Reason: Hypoglycemia Protocol Diltiazem HCl (Cardizem Cd) 120 mg PO DAILY [facility] Last Admin: 07/30/17 10:50 Dose: 120 mg Docusate Sodium (Colace) 100 mg PO DAILY [facility] Last Admin: 07/30/17 10:50 Dose: 100 mg Finasteride (Proscar) 5 mg PO DAILY [facility] Last Admin: 07/30/17 10:50 Dose: 5 mg Gabapentin (Neurontin) 300 mg PO TID [facility] Last Admin: 07/30/17 14:26 Dose: 300 mg Glucagon (Glucagen Diagnostic Kit) 0 mg IM STAT PRN; Protocol PRN Reason: Hypoglycemia Protocol Hydromorphone HCl (Dilaudid) 0.5 mg IVP Q4H PRN PRN Reason: Pain, moderate (4-7) Last Admin: 07/29/17 01:33 Dose: 0.5 mg Dextrose (Dextrose 5% In Water 1000 Ml) 1,000 mls @ 0 mls/hr IV .Q0M PRN; Protocol; Per Protocol PRN Reason: Hypoglycemia Protocol Last Admin: 07/29/17 21:50 Dose: 100 mls/hr Dextrose/Sodium Chloride (Dextrose 5%/0.45% Ns 1000 Ml) 1,000 mls @ 100 mls/hr IV .Q10H [facility] Last Admin: 07/29/17 23:35 Dose: Not Given Piperacillin Sod/Tazobactam (Sod 3.375 gm/ Sodium Chloride) 100 mls @ 200 mls/ hr IVPB Q8H [facility] Last Admin: 07/30/17 10:56 Dose: 200 mls/hr Metronidazole (Flagyl) 500 mg in 100 mls @ 100 mls/hr IVPB Q8 [facility] Last Admin: 07/30/17 14:26 Dose: 100 mls/hr Levetiracetam (Keppra) 500 mg PO BID [facility] Last Admin: 07/30/17 10:50 Dose: 500 mg Losartan Potassium (Cozaar) 25 mg PO DAILY [facility] Last Admin: 07/30/17 10:49 Dose: 25 mg Ondansetron HCl (Zofran Inj) 4 mg IVP Q8H PRN PRN Reason: Nausea/Vomiting Last Admin: 07/29/17 11:57 Dose: 4 mg Polyethylene Glycol (Miralax) 17 gm NG TID [facility] Last Admin: 07/30/17 14:26 Dose: 17 gm Rosuvastatin Calcium (Crestor) 10 mg PO [facility] Last Admin: 07/29/17 22:29 Dose: 10 mg Tamsulosin HCl (Flomax) 0.4 mg PO DAILY [facility] Last Admin: 07/30/17 10:50 Dose: 0.4 mg Zolpidem Tartrate (Ambien) 5 mg PO [facility] Last Admin: 07/29/17 22:29 Dose: 5 mg Physical Exam - Constitutional Appears: Non-toxic - Head Exam Head Exam: ATRAUMATIC, NORMOCEPHALIC - Eye Exam Eye Exam: EOMI, Normal appearance - Respiratory Exam Respiratory Exam: NORMAL BREATHING PATTERN. absent: Accessory Muscle Use - Cardiovascular Exam Cardiovascular Exam: Irregular Rhythm - Extremities Exam Additional comments: bilateral BKA noted Results - Vital Signs Recent Vital Signs: Last Vital Signs Temp 99.5 F 07/30/17 15:00 Pulse 87 07/30/17 15:52 Resp 19 07/30/17 15:00 BP 129/71 07/30/17 15:00 Pulse Ox 99 07/30/17 15:00 - Labs Result Diagrams: 07/30/17 01:11 07/30/17 08:02 Labs: Laboratory Results - last 24 hr 07/29/17 07/29/17 07/29/17 16:52 16:53 17:19 WBC RBC Hgb Hct MCV MCH MCHC RDW Plt Count MPV Neut % (Auto) Lymph % (Auto) Hill % (Auto) Eos % (Auto) Baso % (Auto) Neut # (Auto) Lymph # (Auto) Hill # (Auto) Eos # (Auto) Baso # (Auto) Neutrophils % (Manual) Band Neutrophils % Lymphocytes % (Manual) Monocytes % (Manual) Platelet Estimate Poikilocytosis (manual Anisocytosis (manual) PT INR APTT pO2 VBG pH VBG pCO2 VBG HCO3 VBG Total CO2 VBG O2 Sat (Calc) VBG Base Excess VBG Potassium Glucose Lactate Sodium Potassium Chloride Carbon Dioxide Anion Gap BUN Creatinine Est GFR ( Amer) Est GFR (Non-Af Amer) POC Glucose (mg/dL) 69 66 146 H Random Glucose Calcium Phosphorus Magnesium Total Bilirubin AST ALT Alkaline Phosphatase Total Protein Albumin Globulin Albumin/Globulin Ratio Carcinoembryonic Ag CA 19-9 Antigen Venous Blood Potassium 07/29/17 07/29/17 07/29/17 21:24 21:26 22:03 WBC RBC Hgb Hct MCV MCH MCHC RDW Plt Count MPV Neut % (Auto) Lymph % (Auto) Hill % (Auto) Eos % (Auto) Baso % (Auto) Neut # (Auto) Lymph # (Auto) Hill # (Auto) Eos # (Auto) Baso # (Auto) Neutrophils % (Manual) Band Neutrophils % Lymphocytes % (Manual) Monocytes % (Manual) Platelet Estimate Poikilocytosis (manual Anisocytosis (manual) PT INR APTT pO2 VBG pH VBG pCO2 VBG HCO3 VBG Total CO2 VBG O2 Sat (Calc) VBG Base Excess VBG Potassium Glucose Lactate Sodium Potassium Chloride Carbon Dioxide Anion Gap BUN Creatinine Est GFR ( Amer) Est GFR (Non-Af Amer) POC Glucose (mg/dL) 59 L 61 L 149 H Random Glucose Calcium Phosphorus Magnesium Total Bilirubin AST ALT Alkaline Phosphatase Total Protein Albumin Globulin Albumin/Globulin Ratio Carcinoembryonic Ag CA 19-9 Antigen Venous Blood Potassium 07/30/17 07/30/17 07/30/17 00:33 01:11 01:11 WBC 11.9 H RBC 3.89 L Hgb 9.9 L Hct 29.5 L MCV 76.0 L MCH 25.4 L MCHC 33.5 RDW 18.3 H Plt Count 198 MPV 8.7 Neut % (Auto) 95.9 H Lymph % (Auto) 3.5 L Hill % (Auto) 0.5 Eos % (Auto) 0.0 Baso % (Auto) 0.1 Neut # (Auto) 11.4 H Lymph # (Auto) 0.4 L Hill # (Auto) 0.1 Eos # (Auto) 0.0 Baso # (Auto) 0.0 Neutrophils % (Manual) 86 H Band Neutrophils % 7 H Lymphocytes % (Manual) 5 L Monocytes % (Manual) 2 Platelet Estimate Normal Poikilocytosis (manual Slight Anisocytosis (manual) Slight PT INR APTT pO2 VBG pH VBG pCO2 VBG HCO3 VBG Total CO2 VBG O2 Sat (Calc) VBG Base Excess VBG Potassium Glucose Lactate Sodium 132 Potassium 3.5 L Chloride 102 Carbon Dioxide 25 Anion Gap 9 L BUN 31 H Creatinine 1.6 H Est GFR ( Amer) 52 Est GFR (Non-Af Amer) 43 POC Glucose (mg/dL) 70 Random Glucose 116 H Calcium 7.6 L Phosphorus 3.4 Magnesium 2.6 H Total Bilirubin 0.6 AST 37 ALT 47 Alkaline Phosphatase 41 Total Protein 4.2 L Albumin 2.1 L Globulin 2.1 L Albumin/Globulin Ratio 1.0 Carcinoembryonic Ag 2.1 CA 19-9 Antigen 19.6 Venous Blood Potassium 07/30/17 07/30/17 07/30/17 01:12 01:24 06:02 WBC RBC Hgb Hct MCV MCH MCHC RDW Plt Count MPV Neut % (Auto) Lymph % (Auto) Hill % (Auto) Eos % (Auto) Baso % (Auto) Neut # (Auto) Lymph # (Auto) Hill # (Auto) Eos # (Auto) Baso # (Auto) Neutrophils % (Manual) Band Neutrophils % Lymphocytes % (Manual) Monocytes % (Manual) Platelet Estimate Poikilocytosis (manual Anisocytosis (manual) PT INR APTT pO2 52 VBG pH 7.41 VBG pCO2 44 VBG HCO3 26.7 VBG Total CO2 29.3 H VBG O2 Sat (Calc) 91.9 H VBG Base Excess 2.7 H VBG Potassium 3.5 L Glucose 90 Lactate 1.6 Sodium 136.0 Potassium Chloride 108.0 H Carbon Dioxide Anion Gap BUN Creatinine Est GFR ( Amer) Est GFR (Non-Af Amer) POC Glucose (mg/dL) 128 H 77 Random Glucose Calcium Phosphorus Magnesium Total Bilirubin AST ALT Alkaline Phosphatase Total Protein Albumin Globulin Albumin/Globulin Ratio Carcinoembryonic Ag CA 19-9 Antigen Venous Blood Potassium 3.5 L 07/30/17 07/30/17 07/30/17 08:02 08:02 12:12 WBC RBC Hgb Hct MCV MCH MCHC RDW Plt Count MPV Neut % (Auto) Lymph % (Auto) Hill % (Auto) Eos % (Auto) Baso % (Auto) Neut # (Auto) Lymph # (Auto) Hill # (Auto) Eos # (Auto) Baso # (Auto) Neutrophils % (Manual) Band Neutrophils % Lymphocytes % (Manual) Monocytes % (Manual) Platelet Estimate Poikilocytosis (manual Anisocytosis (manual) PT 15.0 H INR 1.3 APTT 34 D pO2 VBG pH VBG pCO2 VBG HCO3 VBG Total CO2 VBG O2 Sat (Calc) VBG Base Excess VBG Potassium Glucose Lactate Sodium 134 Potassium 3.7 Chloride 104 Carbon Dioxide 25 Anion Gap 9 L BUN 29 H Creatinine 1.5 Est GFR ( Amer) 56 Est GFR (Non-Af Amer) 46 POC Glucose (mg/dL) 84 Random Glucose 70 L Calcium 7.3 L Phosphorus Magnesium Total Bilirubin 0.6 AST 39 ALT 42 Alkaline Phosphatase 59 Total Protein 4.7 L Albumin 2.2 L Globulin 2.5 Albumin/Globulin Ratio 0.9 L Carcinoembryonic Ag CA 19-9 Antigen Venous Blood Potassium Assessment & Plan - Assessment and Plan (Free Text) Assessment: 72 year old with multiple comorbidities who presents with abdominal pain and constipation. Surgery consulted cardiology for a preoperative cardiovascular risk assessment for the surgical proposal of colon resection. Plan: After reviewing the patient's most recent EKG, echocardiogram in conjunction with performing the above documented history and physical, (according to the 2014 ACC/AHA guidelines on non-cardiac risk assessment) this patient is considered intermediate risk for a cardiovascular event for an intermediate risk surgery. Case discussed with attending physician, Dr. Brown. - Date & Time Date: 07/30/17 Time: 15:25 <Luis Brown - Last Filed: 08/05/17 21:20> Meds - Medications Medications: Current Medications Acetaminophen (Tylenol 650mg/20.3ml Solution Ud) 650 mg NG Q6 PRN PRN Reason: fever Last Admin: 07/29/17 22:31 Dose: 650 mg Albuterol/Ipratropium (Duoneb 3 Mg/0.5 Mg (3 Ml) Ud) 3 ml INH RQ2 PRN PRN Reason: Cough Last Admin: 08/04/17 21:28 Dose: 3 ml Amiodarone HCl (Cordarone) 200 mg PO DAILY [facility] Last Admin: 08/05/17 10:30 Dose: 200 mg Aspirin (Aspirin Chewable) 81 mg PO DAILY [facility] Last Admin: 08/05/17 10:30 Dose: 81 mg Chlorthalidone (Hygroton) 25 mg PO DAILY [facility] Last Admin: 08/05/17 12:50 Dose: 25 mg Dextrose (Dextrose 50% Inj) 0 ml IV STAT PRN; Protocol PRN Reason: Hypoglycemia Protocol Last Admin: 08/01/17 18:02 Dose: 50 ml Dextrose (Glutose 15) 0 gm PO ONCE PRN; Protocol PRN Reason: Hypoglycemia Protocol Diltiazem HCl (Cardizem) 30 mg PO QID [facility] Last Admin: 08/05/17 17:33 Dose: 30 mg Docusate Sodium (Colace) 100 mg PO DAILY [facility] Last Admin: 08/05/17 10:30 Dose: 100 mg Enoxaparin Sodium (Lovenox) 60 mg SC Q12 [facility] Finasteride (Proscar) 5 mg PO DAILY [facility] Last Admin: 08/05/17 10:31 Dose: 5 mg Gabapentin (Neurontin) 300 mg PO TID [facility] Last Admin: 08/05/17 17:29 Dose: 300 mg Glucagon (Glucagen Diagnostic Kit) 0 mg IM STAT PRN; Protocol PRN Reason: Hypoglycemia Protocol Hydralazine HCl (Apresoline) 10 mg IVP Q6H PRN PRN Reason: Systolic Blood Pressure Metronidazole (Flagyl) 500 mg in 100 mls @ 100 mls/hr IVPB Q8 [facility] Last Admin: 08/05/17 13:34 Dose: 100 mls/hr Piperacillin Sod/Tazobactam Sod (Zosyn 4.5 Gm Iv Premix) 4.5 gm in 100 mls @ 200 mls/hr IVPB Q8H [facility] Last Admin: 08/05/17 20:30 Dose: 200 mls/hr Potassium Chloride/Dextrose/Sod Cl (Potassium Chl 20 Meq In D5-1/2ns) 1,000 mls @ 50 mls/hr IV .Q20H [facility] Last Admin: 08/05/17 06:00 Dose: 50 mls/hr Levetiracetam (Keppra) 500 mg PO BID [facility] Last Admin: 08/05/17 17:29 Dose: 500 mg Losartan Potassium (Cozaar) 25 mg PO DAILY [facility] Last Admin: 08/05/17 10:31 Dose: 25 mg Metoprolol Tartrate (Lopressor) 5 mg IVP Q6H PRN PRN Reason: Heart rate Ondansetron HCl (Zofran Inj) 4 mg IVP Q8H PRN PRN Reason: Nausea/Vomiting Last Admin: 07/29/17 11:57 Dose: 4 mg Oxycodone/Acetaminophen (Percocet 5/325 Mg Tab) 1 tab PO Q4H PRN PRN Reason: Pain, severe (8-10) Stop: 08/07/17 09:42 Pantoprazole Sodium (Protonix Ec Tab) 40 mg PO DAILY [facility] Last Admin: 08/05/17 10:32 Dose: 40 mg Polyethylene Glycol (Miralax) 17 gm PO TID [facility] Last Admin: 08/05/17 17:25 Dose: Not Given Rosuvastatin Calcium (Crestor) 10 mg PO HS [facility] Last Admin: 08/04/17 22:36 Dose: 10 mg Tamsulosin HCl (Flomax) 0.4 mg PO DAILY [facility] Last Admin: 08/05/17 10:32 Dose: 0.4 mg Zolpidem Tartrate (Ambien) 5 mg PO [facility] Last Admin: 08/04/17 22:36 Dose: 5 mg Results - Vital Signs Recent Vital Signs: Last Vital Signs Temp 98.5 F 08/05/17 16:00 Pulse 76 08/05/17 18:00 Resp 17 08/05/17 16:00 BP 125/80 08/05/17 16:00 Pulse Ox 100 08/05/17 16:00 - Labs Result Diagrams: 08/05/17 06:30 08/05/17 06:30 Labs: Laboratory Results - last 24 hr 08/04/17 08/05/17 08/05/17 22:01 06:30 06:30 WBC 6.2 RBC 4.00 L Hgb 9.9 L Hct 29.9 L MCV 74.7 L MCH 24.9 L MCHC 33.3 RDW 18.8 H Plt Count 376 MPV 8.7 Neut % (Auto) 74.9 Lymph % (Auto) 14.4 L Hill % (Auto) 7.4 Eos % (Auto) 3.0 Baso % (Auto) 0.3 Neut # (Auto) 4.6 Lymph # (Auto) 0.9 L Hill # (Auto) 0.5 Eos # (Auto) 0.2 Baso # (Auto) 0.0 Sodium 140 Potassium 3.2 L Chloride 106 Carbon Dioxide 28 Anion Gap 10 BUN 7 L Creatinine 0.9 Est GFR ( Amer) > 60 Est GFR (Non-Af Amer) > 60 POC Glucose (mg/dL) 94 Random Glucose 96 Calcium 8.0 L Total Bilirubin 0.2 AST 19 ALT 38 Alkaline Phosphatase 51 Total Protein 4.9 L Albumin 2.3 L Globulin 2.6 Albumin/Globulin Ratio 0.9 L 08/05/17 08/05/17 08/05/17 07:20 11:51 16:08 WBC RBC Hgb Hct MCV MCH MCHC RDW Plt Count MPV Neut % (Auto) Lymph % (Auto) Hill % (Auto) Eos % (Auto) Baso % (Auto) Neut # (Auto) Lymph # (Auto) Hill # (Auto) Eos # (Auto) Baso # (Auto) Sodium Potassium Chloride Carbon Dioxide Anion Gap BUN Creatinine Est GFR ( Amer) Est GFR (Non-Af Amer) POC Glucose (mg/dL) 95 101 94 Random Glucose Calcium Total Bilirubin AST ALT Alkaline Phosphatase Total Protein Albumin Globulin Albumin/Globulin Ratio Assessment & Plan (1) Atrial fibrillation Status: Acute (2) NSVT (nonsustained ventricular tachycardia) Status: Acute (3) Preop cardiovascular exam Status: Acute (4) HTN (hypertension) Status: Chronic (5) Peripheral arterial occlusive disease Status: Resolved Attending/Attestation - Attestation I have personally seen and examined this patient.: Yes I have fully participated in the care of the patient.: Yes I have reviewed all pertinent clinical information: Yes
--- NOTE | 2017-07-30 18:09 | CP.PCM.PN ---
Subjective - Date & Time of Evaluation Date of Evaluation: 07/30/17 Time of Evaluation: 18:09 - Subjective Subjective: EVENTS NOTED. PT TRANSFERRED TO THE TELEMETRY FLOOR RETURNED TELEPHONE EQUIPMENT APPRAISER CALLED OVERNIGHT DUE TO [id number]. pATIENT WITH NG -TUBE WITH BILIOUS DRAINAGE - COMPLAINS OFF ABDOMINAL PAIN. SURGERY FOLLOW-UP NOTED. SEEN BY CARDIOLOGY FOR CARDIAC CLEARANCE Objective - Vital Signs/Intake and Output Vital Signs (last 24 hours): Temp Pulse Resp BP Pulse Ox 99.5 F 87 19 129/71 99 07/30/17 15:00 07/30/17 15:52 07/30/17 15:00 07/30/17 15:00 07/30/17 15:00 Intake and Output: 07/30/17 07/30/17 06:59 18:59 Intake Total 1000 Output Total 275 Balance 725 - Medications Medications: Current Medications Acetaminophen (Tylenol 650mg/20.3ml Solution Ud) 650 mg NG Q6 PRN PRN Reason: fever Last Admin: 07/29/17 22:31 Dose: 650 mg Amiodarone HCl (Cordarone) 200 mg PO DAILY [facility] Last Admin: 07/30/17 10:50 Dose: 200 mg Aspirin (Aspirin Chewable) 81 mg PO DAILY [facility] Last Admin: 07/30/17 10:50 Dose: 81 mg Chlorthalidone (Hygroton) 25 mg PO DAILY [facility] Last Admin: 07/30/17 10:50 Dose: 25 mg Dextrose (Dextrose 50% Inj) 0 ml IV STAT PRN; Protocol PRN Reason: Hypoglycemia Protocol Last Admin: 07/29/17 21:36 Dose: 25 ml Dextrose (Glutose 15) 0 gm PO ONCE PRN; Protocol PRN Reason: Hypoglycemia Protocol Diltiazem HCl (Cardizem Cd) 120 mg PO DAILY [facility] Last Admin: 07/30/17 10:50 Dose: 120 mg Docusate Sodium (Colace) 100 mg PO DAILY [facility] Last Admin: 07/30/17 10:50 Dose: 100 mg Finasteride (Proscar) 5 mg PO DAILY [facility] Last Admin: 07/30/17 10:50 Dose: 5 mg Gabapentin (Neurontin) 300 mg PO TID [facility] Last Admin: 07/30/17 14:26 Dose: 300 mg Glucagon (Glucagen Diagnostic Kit) 0 mg IM STAT PRN; Protocol PRN Reason: Hypoglycemia Protocol Hydromorphone HCl (Dilaudid) 0.5 mg IVP Q4H PRN PRN Reason: Pain, moderate (4-7) Last Admin: 07/29/17 01:33 Dose: 0.5 mg Dextrose (Dextrose 5% In Water 1000 Ml) 1,000 mls @ 0 mls/hr IV .Q0M PRN; Protocol; Per Protocol PRN Reason: Hypoglycemia Protocol Last Admin: 07/29/17 21:50 Dose: 100 mls/hr Dextrose/Sodium Chloride (Dextrose 5%/0.45% Ns 1000 Ml) 1,000 mls @ 100 mls/hr IV .Q10H [facility] Last Admin: 07/29/17 23:35 Dose: Not Given Piperacillin Sod/Tazobactam (Sod 3.375 gm/ Sodium Chloride) 100 mls @ 200 mls/ hr IVPB Q8H [facility] Last Admin: 07/30/17 10:56 Dose: 200 mls/hr Metronidazole (Flagyl) 500 mg in 100 mls @ 100 mls/hr IVPB Q8 [facility] Last Admin: 07/30/17 14:26 Dose: 100 mls/hr Levetiracetam (Keppra) 500 mg PO BID [facility] Last Admin: 07/30/17 10:50 Dose: 500 mg Losartan Potassium (Cozaar) 25 mg PO DAILY [facility] Last Admin: 07/30/17 10:49 Dose: 25 mg Ondansetron HCl (Zofran Inj) 4 mg IVP Q8H PRN PRN Reason: Nausea/Vomiting Last Admin: 07/29/17 11:57 Dose: 4 mg Polyethylene Glycol (Miralax) 17 gm NG TID [facility] Last Admin: 07/30/17 14:26 Dose: 17 gm Rosuvastatin Calcium (Crestor) 10 mg PO HS [facility] Last Admin: 07/29/17 22:29 Dose: 10 mg Tamsulosin HCl (Flomax) 0.4 mg PO DAILY [facility] Last Admin: 07/30/17 10:50 Dose: 0.4 mg Zolpidem Tartrate (Ambien) 5 mg PO HS [facility] Last Admin: 07/29/17 22:29 Dose: 5 mg - Labs Labs: 07/30/17 01:11 07/30/17 08:02 PT 15.0 SECONDS (9.7-12.2) H 07/30/17 08:02 INR 1.3 07/30/17 08:02 APTT 34 SECONDS (21-34) D 07/30/17 08:02 - Constitutional Appears: No Acute Distress, Chronically Ill - Head Exam Head Exam: NORMAL INSPECTION - Eye Exam Eye Exam: EOMI (NGT IN PLACE.), PERRL - Neck Exam Neck Exam: Normal Inspection - Respiratory Exam Respiratory Exam: Decreased Breath Sounds - Cardiovascular Exam Cardiovascular Exam: REGULAR RHYTHM, +S1, +S2 - GI/Abdominal Exam GI & Abdominal Exam: Guarding, Tenderness, Hypoactive Bowel Sounds, Rebound - Extremities Exam Additional comments: B/L AKA. - Psychiatric Exam Psychiatric exam: Anxious - Skin Skin Exam: Normal Color, Warm Assessment and Plan - Assessment and Plan (Free Text) Assessment: IMPRESSION; -ABDOMINAL PAIN/CECAL MASS. -SEVERE CONSTIPATION/VOMITING R/O BOWEL OBSTRUCTIVE. -aTRIAL FIBRILLATION. -PVD S/P B/L AKA. -HX OF MULTIPLE CVAS. PLAN. NPO PER SURGERY NGT FOR DECOMPRESSION ON iv zOSYN 3.375 EVERY 8 HOURLY 07/29/17. ON iv fLAGYL 500 EVERY 8 HOURLY 07/29/17. fOLLOW-UP CULTURES TO ADJUST ANTIBIOTICS. PT FOR SURGERY ON 07/31/17 PER SURGERY..
[2017-07-30] MEDS: Dextrose 5%/0.45% NS 1,000 ML IV SCH (21:27)
[2017-07-31] MEDS: Piperacillin/Tazobact 3.375 GM in Sodium Chloride 100 ML IVPB SCH ×3 (02:19→18:45)
[2017-07-31] MEDS: metroNIDAZOLE IV 500 mg/100 ml 500 MG/100 ML BAG IVPB SCH ×3 (05:36→22:45)
[2017-07-31] MEDS ORDERED: Rocuronium 10 mg/ml (5 ml) ONE (07:29)
[2017-07-31] MEDS ORDERED: Propofol 10 mg/ml Inj (20 ML) ONE (07:29)
[2017-07-31] MEDS ORDERED: Etomidate 20 mg/10ml Inj IV ONE ×2 (07:29→10:58)
[2017-07-31] MEDS ORDERED: Midazolam 2 MG/2 ML VIAL ONE (07:29)
[2017-07-31] MEDS ORDERED: HYDROmorphone 0.5 mg/0.5 ml ISec IVP PRN (07:50)
[2017-07-31] MEDS ORDERED: Sodium Chloride 0.9% 1,000 ML IV ONE ×2 (08:00)
[2017-07-31] MEDS ORDERED: Lactated Ringer's 1,000 ML IV ONE ×3 (08:00→09:30)
[2017-07-31] MEDS ORDERED: Dextrose 50% SYRINGE Inj (50 ml) ONE (09:35)
[2017-07-31] MEDS: POLYETHYLENE GLYCOL 3350 17 GM/Dose PACKET NG SCH ×3 (10:00→18:59)
[2017-07-31] MEDS: diltiaZEM 120 mg/24 Hours CD Cap PO SCH (10:00)
--- NOTE | 2017-07-31 10:31 | PCM.SURG1 ---
Surgeon's Initial Post Op Note - Surgeon's Notes Surgeon: Dr. Patel Soft Boarder: Heron Douglas PGY-4; Maria Ines Ashford PGY-1 Type of Anesthesia: General Endo Pre-Operative Diagnosis: Severe constipation, bowel obstruction, hepatic flexure mass on CT Operative Findings: See op report Post-Operative Diagnosis: Mass of transverse colon, small bowel perforation with feculant fluid Operation Performed: Right hemicolectomy with primary anastomosis; small bowel resection with primary anastomosis; insertion of Bella Catheter Specimen/Specimens Removed: Right and transverse colon with mass; small bowel Estimated Blood Loss: EBL {In ML}: 250 Blood Products Given: N/A Drains Used: No Drains Post-Op Condition: Good Date of Surgery/Procedure: 07/31/17 Time of Surgery/Procedure: 10:31
[2017-07-31] MEDS ORDERED: Labetalol 25mg/5ml Syringe IVP STA (10:45)
--- NOTE | 2017-07-31 12:10 | CARD ---
APPROVED REPORT EKG Measurement Heart [id number] <Conclusion> Normal sinus rhythm Left axis deviation Right bundle branch block Minimal voltage criteria for LVH, may be normal variant Inferior infarct, age undetermined T wave abnormality, consider lateral ischemia Abnormal ECG
[2017-07-31] MEDS: HYDROmorphone 0.5 mg/0.5 ml ISec IVP PRN ×2 (12:17→13:00)
--- NOTE | 2017-07-31 13:12 | CP.PCM.CON ---
<BjNate - Last Filed: 07/31/17 17:55> History of Present Illness - History of Present Illness History of Present Illness: 72 year old male with a past medical history of atrial fibrillation, cva x3, hyperlipidemia, hypertension, seizures, TIA who is being evaluated status post exploratory hemicolectomy for unstable vital signs. Patient blood pressure jumped into the 200's sytolic and oxygen saturation decreased. The patient also became non-responsive. ROS was unobtainable due to current clinical condition. Past medical history: atrial fibrillation, cvax3, hld, htn, seizures, tia Past surgical history: AKA Allergies: Banana, pineapple Medications: Cozaar, Proscar, FLagyl, Crestor, FLomax, Zosyn, Gabapentin, Cardizem, Amiodarone, Chlorathalidone. Review of Systems - Review of Systems Systems not reviewed;Unavailable: Other Review of Systems: Patient on bipap and lethargic. 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) - RENAL Hx Chronic Kidney Disease: No - ENDOCRINE/METABOLIC Hx Endocrine Disorders: No - HEMATOLOGICAL/ONCOLOGICAL Hx Blood Disorders: No - INTEGUMENTARY Hx Dermatological Problems: No - MUSCULOSKELETAL/RHEUMATOLOGICAL Hx Musculoskeletal Disorders: No Hx Falls: No - GASTROINTESTINAL Hx Gastrointestinal Disorders: No - GENITOURINARY/GYNECOLOGICAL Hx Genitourinary Disorders: No - PSYCHIATRIC Hx Substance Use: No - SURGICAL HISTORY Hx Surgeries: Yes Hx Cardiac Catheterization: Yes Hx Musculoskeletal Surgery: Yes (Bilateral AKA) - ANESTHESIA Hx Anesthesia: Yes Hx Anesthesia Reactions: No Hx Malignant Hyperthermia: No Meds Allergies/Adverse Reactions: Allergies Allergy/AdvReac Type Severity Reaction Status Date / Time banana Allergy SWELLING Verified 07/28/17 05:15 pineapple Allergy SWELLING Verified 07/28/17 05:15 - Medications Medications: Current Medications Acetaminophen (Tylenol 650mg/20.3ml Solution Ud) 650 mg NG Q6 PRN PRN Reason: fever Last Admin: 02/21/18 22:31 Dose: 650 mg Amiodarone HCl (Cordarone) 200 mg PO DAILY [facility] Last Admin: 07/31/17 10:00 Dose: Not Given Aspirin (Aspirin Chewable) 81 mg PO DAILY [facility] Last Admin: 07/31/17 10:00 Dose: Not Given Chlorthalidone (Hygroton) 25 mg PO DAILY [facility] Last Admin: 07/31/17 10:00 Dose: Not Given Dextrose (Dextrose 50% Inj) 0 ml IV STAT PRN; Protocol PRN Reason: Hypoglycemia Protocol Last Admin: 07/29/17 21:36 Dose: 25 ml Dextrose (Glutose 15) 0 gm PO ONCE PRN; Protocol PRN Reason: Hypoglycemia Protocol Diltiazem HCl (Cardizem Cd) 120 mg PO DAILY [facility] Last Admin: 07/31/17 10:00 Dose: Not Given Docusate Sodium (Colace) 100 mg PO DAILY [facility] Last Admin: 07/31/17 10:00 Dose: Not Given Finasteride (Proscar) 5 mg PO DAILY [facility] Last Admin: 07/31/17 10:00 Dose: Not Given Gabapentin (Neurontin) 300 mg PO TID [facility] Last Admin: 07/31/17 10:00 Dose: Not Given Glucagon (Glucagen Diagnostic Kit) 0 mg IM STAT PRN; Protocol PRN Reason: Hypoglycemia Protocol Hydromorphone HCl (Dilaudid) 0.5 mg IVP Q4H PRN PRN Reason: Pain, moderate (4-7) Last Admin: 07/29/17 01:33 Dose: 0.5 mg Hydromorphone HCl (Dilaudid) 0.25 mg IVP Q5M PRN PRN Reason: Pain, moderate (4-7) Stop: 07/31/17 14:15 Last Admin: 07/31/17 13:00 Dose: 0.25 mg Dextrose (Dextrose 5% In Water 1000 Ml) 1,000 mls @ 0 mls/hr IV .Q0M PRN; Protocol; Per Protocol PRN Reason: Hypoglycemia Protocol Last Admin: 07/29/17 21:50 Dose: 100 mls/hr Piperacillin Sod/Tazobactam (Sod 3.375 gm/ Sodium Chloride) 100 mls @ 200 mls/ hr IVPB Q8H [facility] Last Admin: 07/31/17 10:00 Dose: 100 mls Metronidazole (Flagyl) 500 mg in 100 mls @ 100 mls/hr IVPB Q8 [facility] Last Admin: 07/31/17 05:36 Dose: 100 mls/hr Lactated Ringer's (Lactated Ringer's) 1,000 mls @ 100 mls/hr IV .Q10H [facility] Acetaminophen (Ofirmev) 100 mls @ 100 mls/hr IV Q8H [facility] Stop: 08/01/17 12:01 Levetiracetam (Keppra) 500 mg PO BID [facility] Last Admin: 07/31/17 10:00 Dose: Not Given Losartan Potassium (Cozaar) 25 mg PO DAILY [facility] Last Admin: 07/30/17 10:49 Dose: 25 mg Ondansetron HCl (Zofran Inj) 4 mg IVP Q8H PRN PRN Reason: Nausea/Vomiting Last Admin: 07/29/17 11:57 Dose: 4 mg Polyethylene Glycol (Miralax) 17 gm NG TID [facility] Last Admin: 07/31/17 10:00 Dose: Not Given Rosuvastatin Calcium (Crestor) 10 mg PO [facility] Last Admin: 07/30/17 21:58 Dose: 10 mg Tamsulosin HCl (Flomax) 0.4 mg PO DAILY [facility] Last Admin: 07/31/17 10:00 Dose: Not Given Zolpidem Tartrate (Ambien) 5 mg PO [facility] Last Admin: 07/30/17 21:58 Dose: 5 mg Physical Exam - Head Exam Head Exam: ATRAUMATIC, NORMAL INSPECTION, NORMOCEPHALIC - Eye Exam Eye Exam: EOMI, Normal appearance, PERRL Pupil Exam: NORMAL ACCOMODATION, PERRL - ENT Exam ENT Exam: Mucous Membranes Moist, Normal Oropharynx - Respiratory Exam Respiratory Exam: Clear to Auscultation Bilateral, NORMAL BREATHING PATTERN - Cardiovascular Exam Cardiovascular Exam: REGULAR RHYTHM, +S1, +S2 - GI/Abdominal Exam GI & Abdominal Exam: Normal Bowel Sounds, Soft - Extremities Exam Additional comments: left above knee amputation right bka - Psychiatric Exam Psychiatric exam: Normal Affect, Normal Mood - Skin Skin Exam: Dry, Intact, Normal Color Results - Vital Signs Recent Vital Signs: Last Vital Signs Temp 100.3 F H 07/31/17 08:16 Pulse 110 H 07/31/17 11:00 Resp 20 07/31/17 08:16 BP 162/80 H 07/31/17 08:16 Pulse Ox 100 07/31/17 08:16 - Labs Result Diagrams: 07/30/17 01:11 07/30/17 08:02 Labs: Laboratory Results - last 24 hr 07/30/17 07/30/17 07/30/17 01:11 18:44 21:01 Sodium 132 Potassium 3.5 L Chloride 102 Carbon Dioxide 25 Anion Gap 9 L BUN 31 H Creatinine 1.6 H Est GFR ( Amer) 52 Est GFR (Non-Af Amer) 43 POC Glucose (mg/dL) 80 Random Glucose 116 H Calcium 7.6 L Phosphorus 3.4 Magnesium 2.6 H Total Bilirubin 0.6 AST 37 ALT 47 Alkaline Phosphatase 41 Total Protein 4.2 L Albumin 2.1 L Globulin 2.1 L Albumin/Globulin Ratio 1.0 Carcinoembryonic Ag 2.1 CA 19-9 Antigen 19.6 Blood Type O POSITIVE Antibody Screen Negative 07/31/17 07/31/17 06:16 09:31 Sodium Potassium Chloride Carbon Dioxide Anion Gap BUN Creatinine Est GFR ( Amer) Est GFR (Non-Af Amer) POC Glucose (mg/dL) 72 62 L Random Glucose Calcium Phosphorus Magnesium Total Bilirubin AST ALT Alkaline Phosphatase Total Protein Albumin Globulin Albumin/Globulin Ratio Carcinoembryonic Ag CA 19-9 Antigen Blood Type Antibody Screen Assessment & Plan - Assessment and Plan (Free Text) Assessment: 72 year old with multiple co-morbidities who presents with abdominal pain and constipation. Patient is s/p ex lap right taniya-colectomy. ICU was consulted for elevated blood pressure post op and being un-arousable. Plan: Neurology: h/o Seizures, TIA, CVAX3 -Continue Keppra 500mg PO BID home medication -Neuro checks Cardiology:HTN -Continue Cozaar, Proscar Pulmonary -CO2 narcosis vs. Respirtory distress -On Bipap : FIo2:60% -Oxygen saturation 100% Endocrinology: HLD -Continue Crestor at bedtime. 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 PPX: -Protonix 40mg PO Daily -Heparin 5000 units SC Q8. <Nitesh Lynn - Last Filed: 07/31/17 18:22> Meds - Medications Medications: Current Medications Acetaminophen (Tylenol 650mg/20.3ml Solution Ud) 650 mg NG Q6 PRN PRN Reason: fever Last Admin: 07/29/17 22:31 Dose: 650 mg Amiodarone HCl (Cordarone) 200 mg PO DAILY [facility] Last Admin: 07/31/17 10:00 Dose: Not Given Aspirin (Aspirin Chewable) 81 mg PO DAILY [facility] Last Admin: 07/31/17 10:00 Dose: Not Given Chlorthalidone (Hygroton) 25 mg PO DAILY [facility] Last Admin: 07/31/17 10:00 Dose: Not Given Dextrose (Dextrose 50% Inj) 0 ml IV STAT PRN; Protocol PRN Reason: Hypoglycemia Protocol Last Admin: 07/29/17 21:36 Dose: 25 ml Dextrose (Glutose 15) 0 gm PO ONCE PRN; Protocol PRN Reason: Hypoglycemia Protocol Diltiazem HCl (Cardizem Cd) 120 mg PO DAILY [facility] Last Admin: 07/31/17 10:00 Dose: Not Given Docusate Sodium (Colace) 100 mg PO DAILY [facility] Last Admin: 07/31/17 10:00 Dose: Not Given Finasteride (Proscar) 5 mg PO DAILY [facility] Last Admin: 07/31/17 10:00 Dose: Not Given Gabapentin (Neurontin) 300 mg PO TID [facility] Last Admin: 07/31/17 10:00 Dose: Not Given Glucagon (Glucagen Diagnostic Kit) 0 mg IM STAT PRN; Protocol PRN Reason: Hypoglycemia Protocol Hydromorphone HCl (Dilaudid) 0.5 mg IVP Q4H PRN PRN Reason: Pain, moderate (4-7) Last Admin: 07/29/17 01:33 Dose: 0.5 mg Dextrose (Dextrose 5% In Water 1000 Ml) 1,000 mls @ 0 mls/hr IV .Q0M PRN; Protocol; Per Protocol PRN Reason: Hypoglycemia Protocol Last Admin: 07/29/17 21:50 Dose: 100 mls/hr Piperacillin Sod/Tazobactam (Sod 3.375 gm/ Sodium Chloride) 100 mls @ 200 mls/ hr IVPB Q8H [facility] Last Admin: 07/31/17 10:00 Dose: 100 mls Metronidazole (Flagyl) 500 mg in 100 mls @ 100 mls/hr IVPB Q8 [facility] Last Admin: 07/31/17 14:15 Dose: 100 mls Lactated Ringer's (Lactated Ringer's) 1,000 mls @ 100 mls/hr IV .Q10H [facility] Acetaminophen (Ofirmev) 100 mls @ 400 mls/hr IV Q8H [facility] Stop: 08/01/17 18:01 Levetiracetam (Keppra) 500 mg PO BID [facility] Last Admin: 07/31/17 10:00 Dose: Not Given Losartan Potassium (Cozaar) 25 mg PO DAILY [facility] Last Admin: 07/30/17 10:49 Dose: 25 mg Ondansetron HCl (Zofran Inj) 4 mg IVP Q8H PRN PRN Reason: Nausea/Vomiting Last Admin: 07/29/17 11:57 Dose: 4 mg Polyethylene Glycol (Miralax) 17 gm NG TID [facility] Last Admin: 07/31/17 10:00 Dose: Not Given Rosuvastatin Calcium (Crestor) 10 mg PO HS [facility] Last Admin: 07/30/17 21:58 Dose: 10 mg Tamsulosin HCl (Flomax) 0.4 mg PO DAILY [facility] Last Admin: 07/31/17 10:00 Dose: Not Given Zolpidem Tartrate (Ambien) 5 mg PO HS [facility] Last Admin: 07/30/17 21:58 Dose: 5 mg Results - Vital Signs Recent Vital Signs: Last Vital Signs Temp 98.5 F 07/31/17 10:38 Pulse 71 07/31/17 17:00 Resp 11 L 07/31/17 17:00 BP 133/73 07/31/17 17:00 Pulse Ox 100 07/31/17 17:00 - Labs Result Diagrams: 07/30/17 01:11 07/30/17 08:02 Labs: Laboratory Results - last 24 hr 07/30/17 07/30/17 07/31/17 18:44 21:01 06:16 POC Glucose (mg/dL) 80 72 Blood Type O POSITIVE Antibody Screen Negative 07/31/17 07/31/17 09:31 10:45 POC Glucose (mg/dL) 62 L 148 H Blood Type Antibody Screen Attending/Attestation - Attestation I have personally seen and examined this patient.: Yes I have fully participated in the care of the patient.: Yes I have reviewed all pertinent clinical information: Yes Notes (Text): 07/31/17 18:15 I have seen and examined the patient. Medical records, lab studies, and imaging were reviewed by me and a management plan was formulated on multidisciplinary rounds with resident Dr. Lorenzo. I agree with their documented assessment and plan. Neuro: seizure disorder continue keppra. dilaud prn for pain. Pulm: no acute issues, breathing spontaneously on room air. CV: hypertension now well controlled with losartan and chlorthalidone, afib rate controlled with cardizem and amiodarone. Hem: CAD continue ASA Renal: BPH continue Proscar and Flomax. GI: NPO ID: Zosyn and Flagyl for sepsis from perforated viscus found intra-op. DVT proph - SCD's, start A/C 24h post-op GI proph - not currently indicated wilson for strict I/O's during acute illness Code status - full code Critical Care Time 35 minutes. Multi-disciplinary rounds were performed with house staff, nursing, speech therapy, respiratory therapy, pharmacy and nutrition with integrated input from the primary team/attending and other consulting services. The documented time is cumulative and includes review of patient data/exams/labs/chart review and examination of the patient on rounds and throughout the day; time is exclusive of any procedures or teaching time.
--- NOTE | 2017-07-31 14:01 | OP ---
PROCEDURE DATE: 07/31/2017 PREOPERATIVE DIAGNOSIS: Tumor splenic flexure. POSTOPERATIVE DIAGNOSIS: Mass on the mid transverse colon. ADDITIONAL DIAGNOSIS: Perforated small bowel with obstruction, mid jejunum. PROCEDURE PERFORMED: Right hemicolectomy, enterectomy, and irrigation. FINDINGS AT SURGERY: The transverse colon was rather redundant and middle of it is a large soft tissue mass with no serosal involvement. The liver was free of any metastasis. The gallbladder was found to be very distended, but no palpable stones were seen. There was a large amount of fibrinopurulent exudate spread within the small bowel area, going into the left lower quadrant. Over there is a tremendous amount of fibrinous exudate with some, looks like dark fecaloid small bowel contents in the area. The sigmoid and the left side of the colon was free of any palpable lesions. DESCRIPTION OF PROCEDURE: Under general anesthesia, the patient was prepared and draped in the usual sterile fashion. A midline incision was made through which the peritoneal cavity was entered. A self retaining retractor was left into place. The mass was usually palpable in the mid transverse colon area, but it seems like there is a possibility that this is a malignancy. Therefore, the cecum and the small bowel leading to it was mobilized going upwards into the hepatic flexure. The gastrocolic omentum was then divided with aide of suture LigaSure. The transverse colon was transected in the mid portion and so was the small bowel about 4 or 5 inches beyond the ileocolic junction. This was resected together with the corresponding mesentery and the ileum was then anastomosed through the transverse colon with the aid of the AutoSuture module Endo SID. Enterostomy created with this anastomosis was closed utilizing a TA75 or TA60 stapler. The initial was then closed utilizing continuous over and over suture of 2-0 chromic. No bleeding was noted at the end of this part of the procedure. Attention was then focused on the small bowel where it was brought out from its adhesion in the left lower quadrant and revealed that a stenotic segment surrounded by fibrinous exudate and looks like a small bowel content. Site for any perforation was called, but none was found. Therefore, this portion of the small bowel was transected and then re-anastomosed with SID. Mesentery was also closed utilizing the same 2-0 chromic suture as before. Area was then irrigated with copious amount of saline solution and some antibiotics solution. This is allowed to stay there for a minute and then it was suctioned out. No drain was left in place as there was no definite source of perforation noted and there was no definite further leakages expected. The abdomen was then closed in layers using the continuous over and over suture of #1 PDS. The skin was now closed with multiple skin mehran. The estimated blood loss for the procedure approximates about 100 mL. The patient tolerated the procedure quite well and left the operating room in good condition. Dung Patel MD
--- NOTE | 2017-07-31 14:56 | RAD ---
HISTORY: NGT placement COMPARISON: Chest x-ray performed 07/28/17 TECHNIQUE: Chest, one view. FINDINGS: Nasogastric tube is coiled within the esophagus with distal tip directed superiorly within the upper esophagus. LUNGS: Hypoinflation. Small left effusion. Left basilar atelectasis. No definite pneumothorax. CARDIOVASCULAR: Cardiomegaly. OSSEOUS STRUCTURES: Degenerative changes. VISUALIZED UPPER ABDOMEN: Free air beneath the right hemidiaphragm. OTHER FINDINGS: None. IMPRESSION: Nasogastric tube is correlate in the esophagus and directed superiorly terminating within upper esophagus. This should be removed and repositioned to extend to the expected location of the stomach. Free air beneath the right hemidiaphragm consistent with history of recent surgery. Small left effusion, left basilar atelectasis. Hypoinflation. Cardiomegaly. Findings discussed with VIRAL Lomax on 07/31/17 at 2:53 p.m..
--- NOTE | 2017-07-31 16:20 | RAD ---
HISTORY: NGT placement COMPARISON: 07/31/2017 2:36 p.m. FINDINGS: LUNGS: No infiltrate. There is a small amount of free air seen beneath right hemidiaphragm. The amount of free air is decreased when compared to the earlier examination of the same date. PLEURA: There is loss of the normal contour of the left hemidiaphragm suggesting possible small pleural effusion. CARDIOVASCULAR: Mild cardiomegaly. Nasogastric tube extends to the central abdomen. OSSEOUS STRUCTURES: No significant abnormalities. VISUALIZED UPPER ABDOMEN: Normal. OTHER FINDINGS: None. IMPRESSION: Nasogastric tube extends to the central abdomen. Small amount of free intraperitoneal air. Possible small left pleural effusion.
[2017-07-31] MEDS: Lactated Ringer's 1,000 ML IV SCH ×2 (18:43→18:59)
--- NOTE | 2017-07-31 19:01 | CP.PCM.PN ---
Subjective - Date & Time of Evaluation Date of Evaluation: 07/31/17 Time of Evaluation: 15:20 - Subjective Subjective: clinically same Objective - Vital Signs/Intake and Output Vital Signs (last 24 hours): Temp Pulse Resp BP Pulse Ox 97.4 F L 71 13 131/73 100 07/31/17 18:00 07/31/17 18:00 07/31/17 18:00 07/31/17 18:00 07/31/17 18:00 Intake and Output: 07/31/17 08/01/17 18:59 06:59 Output Total 400 Balance -400 - Medications Medications: Current Medications Acetaminophen (Tylenol 650mg/20.3ml Solution Ud) 650 mg NG Q6 PRN PRN Reason: fever Last Admin: 07/29/17 22:31 Dose: 650 mg Amiodarone HCl (Cordarone) 200 mg PO DAILY [facility] Last Admin: 07/31/17 10:00 Dose: Not Given Aspirin (Aspirin Chewable) 81 mg PO DAILY [facility] Last Admin: 07/31/17 10:00 Dose: Not Given Chlorthalidone (Hygroton) 25 mg PO DAILY [facility] Last Admin: 07/31/17 10:00 Dose: Not Given Dextrose (Dextrose 50% Inj) 0 ml IV STAT PRN; Protocol PRN Reason: Hypoglycemia Protocol Last Admin: 07/29/17 21:36 Dose: 25 ml Dextrose (Glutose 15) 0 gm PO ONCE PRN; Protocol PRN Reason: Hypoglycemia Protocol Diltiazem HCl (Cardizem Cd) 120 mg PO DAILY [facility] Last Admin: 07/31/17 10:00 Dose: Not Given Docusate Sodium (Colace) 100 mg PO DAILY [facility] Last Admin: 07/31/17 10:00 Dose: Not Given Finasteride (Proscar) 5 mg PO DAILY [facility] Last Admin: 07/31/17 10:00 Dose: Not Given Gabapentin (Neurontin) 300 mg PO TID [facility] Last Admin: 07/31/17 18:59 Dose: Not Given Glucagon (Glucagen Diagnostic Kit) 0 mg IM STAT PRN; Protocol PRN Reason: Hypoglycemia Protocol Hydromorphone HCl (Dilaudid) 0.5 mg IVP Q4H PRN PRN Reason: Pain, moderate (4-7) Last Admin: 07/29/17 01:33 Dose: 0.5 mg Dextrose (Dextrose 5% In Water 1000 Ml) 1,000 mls @ 0 mls/hr IV .Q0M PRN; Protocol; Per Protocol PRN Reason: Hypoglycemia Protocol Last Admin: 07/29/17 21:50 Dose: 100 mls/hr Piperacillin Sod/Tazobactam (Sod 3.375 gm/ Sodium Chloride) 100 mls @ 200 mls/ hr IVPB Q8H [facility] Last Admin: 07/31/17 18:45 Dose: 200 mls/hr Metronidazole (Flagyl) 500 mg in 100 mls @ 100 mls/hr IVPB Q8 [facility] Last Admin: 07/31/17 14:15 Dose: 100 mls Lactated Ringer's (Lactated Ringer's) 1,000 mls @ 100 mls/hr IV .Q10H [facility] Last Admin: 07/31/17 18:59 Dose: Not Given Acetaminophen (Ofirmev) 100 mls @ 400 mls/hr IV Q8H [facility] Stop: 08/01/17 18:01 Last Admin: 07/31/17 18:00 Dose: 100 mls Levetiracetam (Keppra) 500 mg PO BID [facility] Last Admin: 07/31/17 18:43 Dose: Not Given Losartan Potassium (Cozaar) 25 mg PO DAILY [facility] Last Admin: 07/30/17 10:49 Dose: 25 mg Ondansetron HCl (Zofran Inj) 4 mg IVP Q8H PRN PRN Reason: Nausea/Vomiting Last Admin: 07/29/17 11:57 Dose: 4 mg Polyethylene Glycol (Miralax) 17 gm NG TID [facility] Last Admin: 07/31/17 18:59 Dose: Not Given Rosuvastatin Calcium (Crestor) 10 mg PO HS [facility] Last Admin: 07/30/17 21:58 Dose: 10 mg Tamsulosin HCl (Flomax) 0.4 mg PO DAILY [facility] Last Admin: 07/31/17 10:00 Dose: Not Given Zolpidem Tartrate (Ambien) 5 mg PO [facility] Last Admin: 07/30/17 21:58 Dose: 5 mg - Labs Labs: 07/30/17 01:11 07/30/17 08:02 PT 15.0 SECONDS (9.7-12.2) H 07/30/17 08:02 INR 1.3 07/30/17 08:02 APTT 34 SECONDS (21-34) D 07/30/17 08:02 - Constitutional Appears: Well - Head Exam Head Exam: ATRAUMATIC, NORMAL INSPECTION, NORMOCEPHALIC - Eye Exam Eye Exam: EOMI, Normal appearance, PERRL Pupil Exam: NORMAL ACCOMODATION, PERRL - ENT Exam ENT Exam: Mucous Membranes Moist, Normal Exam - Neck Exam Neck Exam: Full ROM, Normal Inspection. absent: Lymphadenopathy - Respiratory Exam Respiratory Exam: Decreased Breath Sounds - Cardiovascular Exam Cardiovascular Exam: REGULAR RHYTHM, +S1, +S2 - GI/Abdominal Exam GI & Abdominal Exam: Soft, Diminished Bowel Sounds - Rectal Exam Rectal Exam: Deferred
[2017-08-01] MEDS: Piperacillin/Tazobact 3.375 GM in Sodium Chloride 100 ML IVPB SCH ×3 (01:04→18:04)
[2017-08-01] MEDS: HYDROmorphone 0.5 mg/0.5 ml ISec IVP PRN ×2 (01:09→06:44)
[2017-08-01] MEDS: metroNIDAZOLE IV 500 mg/100 ml 500 MG/100 ML BAG IVPB SCH ×3 (05:04→21:04)
[2017-08-01 06:56] LABS: EOS % 0.3 % (0.0-4.0); HEMOGLOBIN 10.7 g/dL (12.0-18.0); LYMPH # 0.5 K/uL (1.0-4.3); LYMPH % 4.1 % (20.0-40.0); MEAN CELL VOLUME 75.4 fL (80.0-94.0); MEAN CORPUSCULAR HEMOGLOBIN 25.3 pg (27.0-31.0); MEAN CORPUSCULAR HGB CONC 33.5 g/dL (33.0-37.0); MEAN PLATELET VOLUME 9.3 fL (7.2-11.7); MONO # 0.4 K/uL (0.0-0.8); MONO % 2.9 % (0.0-10.0); NEUT # 11.9 K/uL (1.8-7.0); NEUT % 92.7 % (50.0-75.0); PLATELET COUNT 204 K/uL (130-400); RBC 4.22 Mil/uL (4.40-5.90); RED CELL DISTRIBUTION WIDTH 18.9 % (11.5-14.5); WHITE BLOOD COUNT 12.9 K/uL (4.8-10.8)
[2017-08-01] MEDS: Lactated Ringer's 1,000 ML IV SCH ×2 (07:00→09:32)
[2017-08-01 07:23] LABS: ALBUMIN 2.4 g/dL (3.5-5.0); ALT/SGPT 31 U/L (21-72); AST/SGOT 29 U/L (17-59); BLOOD UREA NITROGEN 16 mg/dL (9-20); CALCIUM 7.9 mg/dl (8.6-10.4); GFR AFRICAN-AMERICAN > 60; GFR NON-AFRICAN AMERICAN > 60
[2017-08-01 08:29] LABS: BANDS 3 % (0-2); LYMPHOCYTE 7 % (20-40); MONOCYTE 2 % (0-10); NEUTROPHIL 88 % (50-75); PLATELET ESTIMATE NORMAL (NORMAL); TOTAL CELLS COUNTED 100
[2017-08-01 08:31] LABS: POIKILOCYTOSIS SLIGHT
[2017-08-01 08:32] LABS: ANISOCYTOSIS MODERATE; BURR CELLS SLIGHT; HYPOCHROMIC SLIGHT; LARGE PLATELETS PRESENT; OVALOCYTES SLIGHT; POLYCHROMIC SLIGHT; SCHISTOCYTES SLIGHT; TOXIC GRANULATION PRESENT
[2017-08-01 08:33] LABS: GIANT PLATELETS PRESENT
[2017-08-01] MEDS: POLYETHYLENE GLYCOL 3350 17 GM/Dose PACKET NG SCH ×3 (10:00→18:08)
[2017-08-01] MEDS: diltiaZEM 120 mg/24 Hours CD Cap PO SCH (10:00)
[2017-08-01] MEDS ORDERED: Enalaprilat 2.5 MG/2 ML IV ONE (11:03)
--- NOTE | 2017-08-01 12:24 | CP.PCM.PN ---
Subjective - Date & Time of Evaluation Date of Evaluation: 08/01/17 Time of Evaluation: 07:45 - Subjective Subjective: General Surgery- Dr. Patel Patient seen and examined at bedside this AM. Blood pressure elevated through out the night. No acute complaints. Wilson in w/ good urine output. NGT to suction, NPO on pain control. Objective - Vital Signs/Intake and Output Vital Signs (last 24 hours): Temp Pulse Resp BP Pulse Ox 98.3 F 84 20 170/86 H 99 08/01/17 04:00 08/01/17 12:00 08/01/17 12:00 08/01/17 11:31 08/01/17 09:31 Intake and Output: 08/01/17 08/01/17 06:59 18:59 Intake Total 1250 500 Output Total 770 400 Balance 480 100 - Medications Medications: Current Medications Acetaminophen (Tylenol 650mg/20.3ml Solution Ud) 650 mg NG Q6 PRN PRN Reason: fever Last Admin: 07/29/17 22:31 Dose: 650 mg Amiodarone HCl (Cordarone) 200 mg PO DAILY [facility] Last Admin: 07/31/17 10:00 Dose: Not Given Aspirin (Aspirin Chewable) 81 mg PO DAILY [facility] Last Admin: 07/31/17 10:00 Dose: Not Given Chlorthalidone (Hygroton) 25 mg PO DAILY [facility] Last Admin: 07/31/17 10:00 Dose: Not Given Dextrose (Dextrose 50% Inj) 0 ml IV STAT PRN; Protocol PRN Reason: Hypoglycemia Protocol Last Admin: 07/29/17 21:36 Dose: 25 ml Dextrose (Glutose 15) 0 gm PO ONCE PRN; Protocol PRN Reason: Hypoglycemia Protocol Diltiazem HCl (Cardizem Cd) 120 mg PO DAILY [facility] Last Admin: 07/31/17 10:00 Dose: Not Given Docusate Sodium (Colace) 100 mg PO DAILY [facility] Last Admin: 07/31/17 10:00 Dose: Not Given Enoxaparin Sodium (Lovenox) 40 mg SC DAILY [facility] Finasteride (Proscar) 5 mg PO DAILY [facility] Last Admin: 07/31/17 10:00 Dose: Not Given Gabapentin (Neurontin) 300 mg PO TID [facility] Last Admin: 07/31/17 18:59 Dose: Not Given Glucagon (Glucagen Diagnostic Kit) 0 mg IM STAT PRN; Protocol PRN Reason: Hypoglycemia Protocol Hydromorphone HCl (Dilaudid) 0.5 mg IVP Q4H PRN PRN Reason: Pain, moderate (4-7) Last Admin: 08/01/17 06:44 Dose: 0.5 mg Dextrose (Dextrose 5% In Water 1000 Ml) 1,000 mls @ 0 mls/hr IV .Q0M PRN; Protocol; Per Protocol PRN Reason: Hypoglycemia Protocol Last Admin: 07/29/17 21:50 Dose: 100 mls/hr Piperacillin Sod/Tazobactam (Sod 3.375 gm/ Sodium Chloride) 100 mls @ 200 mls/ hr IVPB Q8H [facility] Last Admin: 08/01/17 09:54 Dose: 200 mls/hr Metronidazole (Flagyl) 500 mg in 100 mls @ 100 mls/hr IVPB Q8 [facility] Last Admin: 08/01/17 05:04 Dose: 100 mls/hr Lactated Ringer's (Lactated Ringer's) 1,000 mls @ 100 mls/hr IV .Q10H [facility] Last Admin: 08/01/17 09:32 Dose: 100 mls/hr Acetaminophen (Ofirmev) 100 mls @ 400 mls/hr IV Q8H [facility] Stop: 08/01/17 18:01 Last Admin: 08/01/17 01:02 Dose: 400 mls/hr Levetiracetam (Keppra) 500 mg PO BID [facility] Last Admin: 07/31/17 18:43 Dose: Not Given Losartan Potassium (Cozaar) 25 mg PO DAILY [facility] Last Admin: 07/30/17 10:49 Dose: 25 mg Ondansetron HCl (Zofran Inj) 4 mg IVP Q8H PRN PRN Reason: Nausea/Vomiting Last Admin: 07/29/17 11:57 Dose: 4 mg Polyethylene Glycol (Miralax) 17 gm NG TID [facility] Last Admin: 07/31/17 18:59 Dose: Not Given Rosuvastatin Calcium (Crestor) 10 mg PO [facility] Last Admin: 07/31/17 23:53 Dose: Not Given Tamsulosin HCl (Flomax) 0.4 mg PO DAILY [facility] Last Admin: 07/31/17 10:00 Dose: Not Given Zolpidem Tartrate (Ambien) 5 mg PO [facility] Last Admin: 07/31/17 23:53 Dose: Not Given - Labs Labs: 08/01/17 06:40 08/01/17 06:40 PT 15.0 SECONDS (9.7-12.2) H 07/30/17 08:02 INR 1.3 07/30/17 08:02 APTT 34 SECONDS (21-34) D 07/30/17 08:02 - Constitutional Appears: Non-toxic, No Acute Distress - Eye Exam Eye Exam: EOMI. absent: Scleral icterus - ENT Exam ENT Exam: Mucous Membranes Moist - Respiratory Exam Respiratory Exam: NORMAL BREATHING PATTERN. absent: Accessory Muscle Use, Respiratory Distress - Cardiovascular Exam Cardiovascular Exam: +S1, +S2. absent: Bradycardia, Tachycardia - GI/Abdominal Exam GI & Abdominal Exam: Soft, Tenderness. absent: Distended, Firm, Guarding, Rigid Additional comments: appropriately tender around incision - Neurological Exam Neurological Exam: Alert, Awake, Oriented x3 - Psychiatric Exam Psychiatric exam: Normal Affect - Skin Skin Exam: Intact, Warm Assessment and Plan - Assessment and Plan (Free Text) Assessment: 72M s/p Right hemicolectomy and small bowel resection w/ primary anastomosis Plan: - d/c wilson - keep NGT in for now - monitor bowel function return - NPO w/ ice chips - DVT ppx - f/u path report - discussed w/ Dr. Amanda Issa PGY1
[2017-08-01] MEDS: Enoxaparin 40 mg Syringe SC SCH (13:37)
--- NOTE | 2017-08-01 17:15 | CP.PCM.PN ---
Subjective - Date & Time of Evaluation Date of Evaluation: 08/01/17 Time of Evaluation: 15:20 - Subjective Subjective: clinically same Objective - Vital Signs/Intake and Output Vital Signs (last 24 hours): Temp Pulse Resp BP Pulse Ox 97.9 F 96 H 12 189/98 H 99 08/01/17 12:00 08/01/17 12:31 08/01/17 12:31 08/01/17 12:31 08/01/17 09:31 Intake and Output: 08/01/17 08/01/17 06:59 18:59 Intake Total 1250 600 Output Total 770 430 Balance 480 170 - Medications Medications: Current Medications Acetaminophen (Tylenol 650mg/20.3ml Solution Ud) 650 mg NG Q6 PRN PRN Reason: fever Last Admin: 07/29/17 22:31 Dose: 650 mg Amiodarone HCl (Cordarone) 200 mg PO DAILY [facility] Last Admin: 08/01/17 13:39 Dose: 200 mg Aspirin (Aspirin Chewable) 81 mg PO DAILY [facility] Last Admin: 08/01/17 13:40 Dose: 81 mg Chlorthalidone (Hygroton) 25 mg PO DAILY [facility] Last Admin: 07/31/17 10:00 Dose: Not Given Dextrose (Dextrose 50% Inj) 0 ml IV STAT PRN; Protocol PRN Reason: Hypoglycemia Protocol Last Admin: 07/29/17 21:36 Dose: 25 ml Dextrose (Glutose 15) 0 gm PO ONCE PRN; Protocol PRN Reason: Hypoglycemia Protocol Diltiazem HCl (Cardizem Cd) 120 mg PO DAILY [facility] Last Admin: 07/31/17 10:00 Dose: Not Given Docusate Sodium (Colace) 100 mg PO DAILY [facility] Last Admin: 08/01/17 13:42 Dose: Not Given Enoxaparin Sodium (Lovenox) 40 mg SC DAILY [facility] Last Admin: 08/01/17 13:37 Dose: 40 mg Finasteride (Proscar) 5 mg PO DAILY [facility] Last Admin: 08/01/17 13:40 Dose: 5 mg Gabapentin (Neurontin) 300 mg PO TID [facility] Last Admin: 08/01/17 13:41 Dose: 300 mg Glucagon (Glucagen Diagnostic Kit) 0 mg IM STAT PRN; Protocol PRN Reason: Hypoglycemia Protocol Hydromorphone HCl (Dilaudid) 0.5 mg IVP Q4H PRN PRN Reason: Pain, moderate (4-7) Last Admin: 08/01/17 06:44 Dose: 0.5 mg Piperacillin Sod/Tazobactam (Sod 3.375 gm/ Sodium Chloride) 100 mls @ 200 mls/ hr IVPB Q8H [facility] Last Admin: 08/01/17 09:54 Dose: 200 mls/hr Metronidazole (Flagyl) 500 mg in 100 mls @ 100 mls/hr IVPB Q8 [facility] Last Admin: 08/01/17 13:35 Dose: 100 mls/hr Lactated Ringer's (Lactated Ringer's) 1,000 mls @ 100 mls/hr IV .Q10H [facility] Last Admin: 08/01/17 09:32 Dose: 100 mls/hr Acetaminophen (Ofirmev) 100 mls @ 400 mls/hr IV Q8H [facility] Stop: 08/01/17 18:01 Last Admin: 08/01/17 11:00 Dose: 400 mls/hr Levetiracetam (Keppra) 500 mg PO BID [facility] Last Admin: 08/01/17 13:40 Dose: 500 mg Losartan Potassium (Cozaar) 25 mg PO DAILY [facility] Last Admin: 07/30/17 10:49 Dose: 25 mg Ondansetron HCl (Zofran Inj) 4 mg IVP Q8H PRN PRN Reason: Nausea/Vomiting Last Admin: 07/29/17 11:57 Dose: 4 mg Polyethylene Glycol (Miralax) 17 gm NG TID [facility] Last Admin: 08/01/17 13:40 Dose: Not Given Rosuvastatin Calcium (Crestor) 10 mg PO [facility] Last Admin: 07/31/17 23:53 Dose: Not Given Tamsulosin HCl (Flomax) 0.4 mg PO DAILY [facility] Last Admin: 08/01/17 13:39 Dose: 0.4 mg Zolpidem Tartrate (Ambien) 5 mg PO [facility] Last Admin: 07/31/17 23:53 Dose: Not Given - Labs Labs: 08/01/17 06:40 08/01/17 06:40 PT 15.0 SECONDS (9.7-12.2) H 07/30/17 08:02 INR 1.3 07/30/17 08:02 APTT 34 SECONDS (21-34) D 07/30/17 08:02 - Constitutional Appears: Well - Head Exam Head Exam: ATRAUMATIC, NORMAL INSPECTION, NORMOCEPHALIC - Eye Exam Eye Exam: EOMI, Normal appearance, PERRL Pupil Exam: NORMAL ACCOMODATION, PERRL - ENT Exam ENT Exam: Mucous Membranes Moist, Normal Exam - Neck Exam Neck Exam: Full ROM, Normal Inspection. absent: Lymphadenopathy - Respiratory Exam Respiratory Exam: Decreased Breath Sounds - Cardiovascular Exam Cardiovascular Exam: REGULAR RHYTHM, +S1, +S2 - GI/Abdominal Exam GI & Abdominal Exam: Soft, Diminished Bowel Sounds - Rectal Exam Rectal Exam: Deferred
[2017-08-01] MEDS ORDERED: Dextrose 50% SYRINGE Inj (50 ml) ONE (17:59)
[2017-08-01] MEDS: Dextrose 50% SYRINGE Inj (50 ml) IV PRN (18:02)
--- NOTE | 2017-08-01 19:23 | CP.PCM.PN ---
Subjective - Date & Time of Evaluation Date of Evaluation: 08/01/17 Time of Evaluation: 19:23 - Subjective Subjective: PT SEEN POST OPT. POD # 1 S/P Right hemicolectomy with primary anastomosis; small bowel resection with primary anastomosis; S/P insertion of Bella Catheter. PT AWAKE +VE NGT. URINE OUT PUT GOOD Objective - Vital Signs/Intake and Output Vital Signs (last 24 hours): Temp Pulse Resp BP Pulse Ox 99 F 79 17 177/79 H 99 08/01/17 16:00 08/01/17 18:00 08/01/17 18:00 08/01/17 17:45 08/01/17 09:31 Intake and Output: 08/01/17 08/02/17 18:59 06:59 Intake Total 1200 100 Output Total 1160 0 Balance 40 100 - Medications Medications: Current Medications Acetaminophen (Tylenol 650mg/20.3ml Solution Ud) 650 mg NG Q6 PRN PRN Reason: fever Last Admin: 07/29/17 22:31 Dose: 650 mg Amiodarone HCl (Cordarone) 200 mg PO DAILY [facility] Last Admin: 08/01/17 13:39 Dose: 200 mg Aspirin (Aspirin Chewable) 81 mg PO DAILY [facility] Last Admin: 08/01/17 13:40 Dose: 81 mg Chlorthalidone (Hygroton) 25 mg PO DAILY [facility] Last Admin: 07/31/17 10:00 Dose: Not Given Dextrose (Dextrose 50% Inj) 0 ml IV STAT PRN; Protocol PRN Reason: Hypoglycemia Protocol Last Admin: 08/01/17 18:02 Dose: 50 ml Dextrose (Glutose 15) 0 gm PO ONCE PRN; Protocol PRN Reason: Hypoglycemia Protocol Diltiazem HCl (Cardizem Cd) 120 mg PO DAILY [facility] Last Admin: 08/01/17 10:00 Dose: Not Given Docusate Sodium (Colace) 100 mg PO DAILY [facility] Last Admin: 08/01/17 13:42 Dose: Not Given Enoxaparin Sodium (Lovenox) 40 mg SC DAILY [facility] Last Admin: 08/01/17 13:37 Dose: 40 mg Finasteride (Proscar) 5 mg PO DAILY [facility] Last Admin: 08/01/17 13:40 Dose: 5 mg Gabapentin (Neurontin) 300 mg PO TID [facility] Last Admin: 08/01/17 18:02 Dose: 300 mg Glucagon (Glucagen Diagnostic Kit) 0 mg IM STAT PRN; Protocol PRN Reason: Hypoglycemia Protocol Hydromorphone HCl (Dilaudid) 0.5 mg IVP Q4H PRN PRN Reason: Pain, moderate (4-7) Last Admin: 08/01/17 06:44 Dose: 0.5 mg Piperacillin Sod/Tazobactam (Sod 3.375 gm/ Sodium Chloride) 100 mls @ 200 mls/ hr IVPB Q8H [facility] Last Admin: 08/01/17 18:04 Dose: 200 mls/hr Metronidazole (Flagyl) 500 mg in 100 mls @ 100 mls/hr IVPB Q8 [facility] Last Admin: 08/01/17 13:35 Dose: 100 mls/hr Lactated Ringer's (Lactated Ringer's) 1,000 mls @ 100 mls/hr IV .Q10H [facility] Last Admin: 08/01/17 09:32 Dose: 100 mls/hr Levetiracetam (Keppra) 500 mg PO BID [facility] Last Admin: 08/01/17 18:02 Dose: 500 mg Losartan Potassium (Cozaar) 25 mg PO DAILY [facility] Last Admin: 07/30/17 10:49 Dose: 25 mg Ondansetron HCl (Zofran Inj) 4 mg IVP Q8H PRN PRN Reason: Nausea/Vomiting Last Admin: 07/29/17 11:57 Dose: 4 mg Polyethylene Glycol (Miralax) 17 gm NG TID [facility] Last Admin: 08/01/17 18:08 Dose: Not Given Rosuvastatin Calcium (Crestor) [address] [facility] Last Admin: 07/31/17 23:53 Dose: Not Given Tamsulosin HCl (Flomax) 0.4 mg PO DAILY [facility] Last Admin: 08/01/17 13:39 Dose: 0.4 mg Zolpidem Tartrate (Ambien) 5 [address] 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 - Extremities Exam Extremities Exam: Pedal Edema Additional comments: B/L AKA. - Neurological Exam Neurological Exam: Awake, CN II-XII Intact - Skin Skin Exam: Normal Color, Warm Assessment and Plan - Assessment and Plan (Free Text) Assessment: IMPRESSION; - S/P RIGHT HEMICOLECTOMY/SMALL BOWEL RESECTION WITH PRIMARY ANASTOMOSIS.07/31/17 -AND RESECTION CECAL MASS. -aTRIAL FIBRILLATION. -PVD S/P B/L AKA. -HX OF MULTIPLE CVAS. PLAN. NPO PER SURGERY NGT FOR DECOMPRESSION ON iv ZOSYN 3.375 EVERY 8 HOURLY 07/29/17. ON iv FLAGYL 500 EVERY 8 HOURLY 07/29/ POST -OPTIVE CARE PER SURGERY. F/U BX /pATH REPORT.
[2017-08-02] MEDS ORDERED: Dextrose 50% SYRINGE Inj (50 ml) IV STA ×2 (00:03→00:04)
[2017-08-02] MEDS: Lactated Ringer's 1,000 ML IV SCH ×4 (00:12→20:15)
[2017-08-02] MEDS: HYDROmorphone 0.5 mg/0.5 ml ISec IVP PRN ×4 (00:52→20:57)
[2017-08-02] MEDS: Piperacillin/Tazobact 3.375 GM in Sodium Chloride 100 ML IVPB SCH ×3 (01:01→17:35)
[2017-08-02] MEDS: metroNIDAZOLE IV 500 mg/100 ml 500 MG/100 ML BAG IVPB SCH ×3 (05:09→21:00)
[2017-08-02 06:24] LABS: BASO % 0.1 % (0.0-2.0); EOS # 0.1 K/uL (0.0-0.7); HEMOGLOBIN 11.2 g/dL (12.0-18.0); LYMPH # 0.8 K/uL (1.0-4.3); LYMPH % 8.4 % (20.0-40.0); MEAN CORPUSCULAR HGB CONC 33.4 g/dL (33.0-37.0); MEAN PLATELET VOLUME 8.8 fL (7.2-11.7); MONO # 0.5 K/uL (0.0-0.8); MONO % 5.9 % (0.0-10.0); NEUT # 7.6 K/uL (1.8-7.0); NEUT % 84.6 % (50.0-75.0); PLATELET COUNT 246 K/uL (130-400); RBC 4.49 Mil/uL (4.40-5.90); RED CELL DISTRIBUTION WIDTH 19.2 % (11.5-14.5); WHITE BLOOD COUNT 8.9 K/uL (4.8-10.8)
[2017-08-02 06:42] LABS: ALB/GLOB RATIO 0.9 (1.0-2.1); ALBUMIN 2.6 g/dL (3.5-5.0); ALT/SGPT 37 U/L (21-72); AST/SGOT 27 U/L (17-59); BLOOD UREA NITROGEN 8 mg/dL (9-20); CALCIUM 7.9 mg/dl (8.6-10.4); GFR AFRICAN-AMERICAN > 60; GFR NON-AFRICAN AMERICAN > 60
[2017-08-02] MEDS ORDERED: Potassium Chloride 20 mEq/15 ml LIQ UD PO ONE (07:45)
[2017-08-02 08:37] LABS: ANISOCYTOSIS MODERATE; EOSINOPHIL 2 % (0-4); LARGE PLATELETS PRESENT; LYMPHOCYTE 9 % (20-40); MONOCYTE 5 % (0-10); NEUTROPHIL 84 % (50-75); PLATELET ESTIMATE NORMAL (NORMAL); TOTAL CELLS COUNTED 100; TOXIC GRANULATION PRESENT
[2017-08-02 08:38] LABS: OVALOCYTES SLIGHT; POIKILOCYTOSIS SLIGHT
[2017-08-02 08:39] LABS: SCHISTOCYTES SLIGHT
[2017-08-02] MEDS: diltiaZEM 120 mg/24 Hours CD Cap PO SCH (09:06)
[2017-08-02] MEDS: POLYETHYLENE GLYCOL 3350 17 GM/Dose PACKET NG SCH ×3 (09:10→17:27)
[2017-08-02] MEDS: Enoxaparin 40 mg Syringe SC SCH (09:10)
--- NOTE | 2017-08-02 10:42 | CP.PCM.PN ---
Subjective - Date & Time of Evaluation Date of Evaluation: 08/02/17 Time of Evaluation: 08:00 - Subjective Subjective: General surgery progress note for Dr. Nkechi Ashford, PGY-1 Pt S & E at bedside. Pt with undecipherable speech as per On-demand interpretor. Gesturing, but unable to ascertain what pt is trying to convey. Denies any pain. Pt continues w/HTN overnight, no other acute events. Objective - Vital Signs/Intake and Output Vital Signs (last 24 hours): Temp Pulse Resp BP Pulse Ox 97.6 F 71 20 168/90 H 98 08/02/17 04:00 08/02/17 04:00 08/02/17 04:00 08/02/17 04:00 08/02/17 04:00 Intake and Output: 08/02/17 08/02/17 06:59 18:59 Intake Total 1200 100 Output Total 1050 Balance 150 100 - Medications Medications: Current Medications Acetaminophen (Tylenol 650mg/20.3ml Solution Ud) 650 mg NG Q6 PRN PRN Reason: fever Last Admin: 07/29/17 22:31 Dose: 650 mg Amiodarone HCl (Cordarone) 200 mg PO DAILY [facility] Last Admin: 08/02/17 09:07 Dose: 200 mg Aspirin (Aspirin Chewable) 81 mg PO DAILY [facility] Last Admin: 08/02/17 09:06 Dose: 81 mg Chlorthalidone (Hygroton) 25 mg PO DAILY [facility] Last Admin: 07/31/17 10:00 Dose: Not Given Dextrose (Dextrose 50% Inj) 0 ml IV STAT PRN; Protocol PRN Reason: Hypoglycemia Protocol Last Admin: 08/01/17 18:02 Dose: 50 ml Dextrose (Glutose 15) 0 gm PO ONCE PRN; Protocol PRN Reason: Hypoglycemia Protocol Diltiazem HCl (Cardizem Cd) 120 mg PO DAILY [facility] Last Admin: 08/02/17 09:06 Dose: Not Given Docusate Sodium (Colace) 100 mg PO DAILY [facility] Last Admin: 08/02/17 09:07 Dose: 100 mg Enoxaparin Sodium (Lovenox) 40 mg SC DAILY [facility] Last Admin: 08/02/17 09:10 Dose: 40 mg Finasteride (Proscar) 5 mg PO DAILY [facility] Last Admin: 08/02/17 09:10 Dose: 5 mg Gabapentin (Neurontin) 300 mg PO TID [facility] Last Admin: 08/02/17 09:10 Dose: 300 mg Glucagon (Glucagen Diagnostic Kit) 0 mg IM STAT PRN; Protocol PRN Reason: Hypoglycemia Protocol Hydralazine HCl (Apresoline) 10 mg IVP Q6H PRN PRN Reason: Systolic Blood Pressure Hydromorphone HCl (Dilaudid) 0.5 mg IVP Q4H PRN PRN Reason: Pain, moderate (4-7) Last Admin: 08/02/17 09:42 Dose: 0.5 mg Piperacillin Sod/Tazobactam (Sod 3.375 gm/ Sodium Chloride) 100 mls @ 200 mls/ hr IVPB Q8H [facility] Last Admin: 08/02/17 01:01 Dose: 200 mls/hr Metronidazole (Flagyl) 500 mg in 100 mls @ 100 mls/hr IVPB Q8 [facility] Last Admin: 08/02/17 05:09 Dose: 100 mls/hr Lactated Ringer's (Lactated Ringer's) 1,000 mls @ 100 mls/hr IV .Q10H [facility] Last Admin: 08/02/17 09:12 Dose: 100 mls/hr Levetiracetam (Keppra) 500 mg PO BID [facility] Last Admin: 08/02/17 09:09 Dose: Not Given Losartan Potassium (Cozaar) 25 mg PO DAILY [facility] Last Admin: 08/02/17 09:08 Dose: 25 mg Ondansetron HCl (Zofran Inj) 4 mg IVP Q8H PRN PRN Reason: Nausea/Vomiting Last Admin: 07/29/17 11:57 Dose: 4 mg Pantoprazole Sodium (Protonix Inj) 40 mg IVP DAILY [facility] Polyethylene Glycol (Miralax) 17 gm NG TID [facility] Last Admin: 08/02/17 09:10 Dose: Not Given Rosuvastatin Calcium (Crestor) 10 mg PO [facility] Last Admin: 08/02/17 00:04 Dose: Not Given Tamsulosin HCl (Flomax) 0.4 mg PO DAILY [facility] Last Admin: 08/02/17 09:08 Dose: Not Given Zolpidem Tartrate (Ambien) 5 mg PO [facility] Last Admin: 08/02/17 00:04 Dose: Not Given - Labs Labs: 08/02/17 06:18 08/02/17 06:18 PT 15.0 SECONDS (9.7-12.2) H 07/30/17 08:02 INR 1.3 07/30/17 08:02 APTT 34 SECONDS (21-34) D 07/30/17 08:02 Assessment and Plan - Assessment and Plan (Free Text) Assessment: 72M s/p Right hemicolectomy and small bowel resection w/ primary anastomosis POD #2 Plan: Cont NPO NGT to low-intermittent suction- ok to hold for 1 hr while giving Rx, then re- start Monitor for bowel function Pain control Cont IV Abx K 2.9-replaced Bowel regimen GI/DVT ppx Hydralazine PRN HTN w/parameters OOBTC PT Encourage IS use Further mgmt as per primary team RUBY attending [employer], PGY-1
--- NOTE | 2017-08-02 16:31 | CP.PCM.PN ---
Subjective - Date & Time of Evaluation Date of Evaluation: 08/02/17 Time of Evaluation: 16:40 - Subjective Subjective: clinically same Objective - Vital Signs/Intake and Output Vital Signs (last 24 hours): Temp Pulse Resp BP Pulse Ox 98.3 F 117 H 18 131/93 H 98 08/02/17 12:00 08/02/17 12:00 08/02/17 12:00 08/02/17 12:00 08/02/17 12:00 Intake and Output: 08/02/17 08/02/17 06:59 18:59 Intake Total 1200 100 Output Total 1050 Balance 150 100 - Medications Medications: Current Medications Acetaminophen (Tylenol 650mg/20.3ml Solution Ud) 650 mg NG Q6 PRN PRN Reason: fever Last Admin: 07/29/17 22:31 Dose: 650 mg Amiodarone HCl (Cordarone) 200 mg PO DAILY [facility] Last Admin: 08/02/17 09:07 Dose: 200 mg Aspirin (Aspirin Chewable) 81 mg PO DAILY [facility] Last Admin: 08/02/17 09:06 Dose: 81 mg Chlorthalidone (Hygroton) 25 mg PO DAILY [facility] Last Admin: 08/02/17 10:48 Dose: 25 mg Dextrose (Dextrose 50% Inj) 0 ml IV STAT PRN; Protocol PRN Reason: Hypoglycemia Protocol Last Admin: 08/01/17 18:02 Dose: 50 ml Dextrose (Glutose 15) 0 gm PO ONCE PRN; Protocol PRN Reason: Hypoglycemia Protocol Diltiazem HCl (Cardizem Cd) 120 mg PO DAILY [facility] Last Admin: 08/02/17 09:06 Dose: Not Given Docusate Sodium (Colace) 100 mg PO DAILY [facility] Last Admin: 08/02/17 09:07 Dose: 100 mg Enoxaparin Sodium (Lovenox) 40 mg SC DAILY [facility] Last Admin: 08/02/17 09:10 Dose: 40 mg Finasteride (Proscar) 5 mg PO DAILY [facility] Last Admin: 08/02/17 09:10 Dose: 5 mg Gabapentin (Neurontin) 300 mg PO TID [facility] Last Admin: 08/02/17 14:00 Dose: 300 mg Glucagon (Glucagen Diagnostic Kit) 0 mg IM STAT PRN; Protocol PRN Reason: Hypoglycemia Protocol Hydralazine HCl (Apresoline) 10 mg IVP Q6H PRN PRN Reason: Systolic Blood Pressure Hydromorphone HCl (Dilaudid) 0.5 mg IVP Q4H PRN PRN Reason: Pain, moderate (4-7) Last Admin: 08/02/17 09:42 Dose: 0.5 mg Piperacillin Sod/Tazobactam (Sod 3.375 gm/ Sodium Chloride) 100 mls @ 200 mls/ hr IVPB Q8H [facility] Last Admin: 08/02/17 10:48 Dose: 200 mls/hr Metronidazole (Flagyl) 500 mg in 100 mls @ 100 mls/hr IVPB Q8 [facility] Last Admin: 08/02/17 14:00 Dose: 100 mls/hr Lactated Ringer's (Lactated Ringer's) 1,000 mls @ 100 mls/hr IV .Q10H [facility] Last Admin: 08/02/17 09:12 Dose: 100 mls/hr Levetiracetam (Keppra) 500 mg PO BID [facility] Last Admin: 08/02/17 09:09 Dose: Not Given Losartan Potassium (Cozaar) 25 mg PO DAILY [facility] Last Admin: 08/02/17 09:08 Dose: 25 mg Ondansetron HCl (Zofran Inj) 4 mg IVP Q8H PRN PRN Reason: Nausea/Vomiting Last Admin: 07/29/17 11:57 Dose: 4 mg Pantoprazole Sodium (Protonix Inj) 40 mg IVP DAILY [facility] Last Admin: 08/02/17 12:29 Dose: 40 mg Polyethylene Glycol (Miralax) 17 gm NG TID [facility] Last Admin: 08/02/17 14:01 Dose: Not Given Rosuvastatin Calcium (Crestor) 10 mg PO [facility] Last Admin: 08/02/17 00:04 Dose: Not Given Tamsulosin HCl (Flomax) 0.4 mg PO DAILY [facility] Last Admin: 08/02/17 09:08 Dose: Not Given Zolpidem Tartrate (Ambien) 5 mg PO [facility] Last Admin: 08/02/17 00:04 Dose: Not Given - Labs Labs: 08/02/17 06:18 08/02/17 06:18 PT 15.0 SECONDS (9.7-12.2) H 07/30/17 08:02 INR 1.3 07/30/17 08:02 APTT 34 SECONDS (21-34) D 07/30/17 08:02
[2017-08-02 22:17] LABS: BLOOD UREA NITROGEN 11 mg/dL (9-20); CALCIUM 7.9 mg/dl (8.6-10.4); GFR AFRICAN-AMERICAN > 60; GFR NON-AFRICAN AMERICAN > 60
[2017-08-02] MEDS ORDERED: Potassium Chloride 20 mEq/15 ml LIQ UD NG STA (22:55)
[2017-08-02] MEDS: Dextrose 5%/0.45% NS 1,000 ML IV SCH (23:51)
[2017-08-02] MEDS ORDERED: Dextrose 50% SYRINGE Inj (50 ml) ONE (23:59)
[2017-08-03] MEDS ORDERED: Dextrose 50% SYRINGE Inj (50 ml) IV STA (00:22)
[2017-08-03] MEDS ORDERED: Metoprolol 1 mg/ml Inj IVP ONE (00:22)
[2017-08-03] MEDS ORDERED: Metoprolol 1 mg/ml Inj IVP PRN (00:49)
[2017-08-03] MEDS: Piperacillin/Tazobact 3.375 GM in Sodium Chloride 100 ML IVPB SCH ×2 (02:18→09:36)
[2017-08-03] MEDS: levETIRAcetam 500 MG in Sodium Chloride 0.9% 100 ML IVPB SCH ×2 (02:45→17:18)
[2017-08-03] MEDS: metroNIDAZOLE IV 500 mg/100 ml 500 MG/100 ML BAG IVPB SCH ×3 (05:56→21:00)
[2017-08-03 06:37] LABS: BASO % 0.2 % (0.0-2.0); EOS # 0.1 K/uL (0.0-0.7); EOS % 0.7 % (0.0-4.0); HEMOGLOBIN 10.4 g/dL (12.0-18.0); LYMPH # 0.5 K/uL (1.0-4.3); LYMPH % 6.6 % (20.0-40.0); MEAN CELL VOLUME 75.4 fL (80.0-94.0); MEAN CORPUSCULAR HEMOGLOBIN 25.2 pg (27.0-31.0); MEAN CORPUSCULAR HGB CONC 33.4 g/dL (33.0-37.0); MEAN PLATELET VOLUME 8.6 fL (7.2-11.7); MONO # 0.5 K/uL (0.0-0.8); MONO % 6.1 % (0.0-10.0); NEUT # 6.8 K/uL (1.8-7.0); NEUT % 86.4 % (50.0-75.0); NRBC % 0.1 % (0.0-2.0); PLATELET COUNT 288 K/uL (130-400); RBC 4.14 Mil/uL (4.40-5.90); RED CELL DISTRIBUTION WIDTH 18.8 % (11.5-14.5); WHITE BLOOD COUNT 7.9 K/uL (4.8-10.8)
[2017-08-03 06:49] LABS: ALB/GLOB RATIO 0.9 (1.0-2.1); ALBUMIN 2.4 g/dL (3.5-5.0); ALT/SGPT 49 U/L (21-72); AST/SGOT 51 U/L (17-59); BLOOD UREA NITROGEN 12 mg/dL (9-20); GFR AFRICAN-AMERICAN > 60; GFR NON-AFRICAN AMERICAN > 60
--- NOTE | 2017-08-03 07:50 | CP.PCM.PN ---
Subjective - Date & Time of Evaluation Date of Evaluation: 08/03/17 Time of Evaluation: 07:15 - Subjective Subjective: General Surgery Pt S&E, No issues overnight. + small streak BM. Denies abd pain. No Fever/ chills. Using IS. 200cc in NGT. Objective - Vital Signs/Intake and Output Vital Signs (last 24 hours): Temp Pulse Resp BP Pulse Ox 97.9 F 84 16 115/66 98 08/03/17 04:00 08/03/17 04:00 08/03/17 04:00 08/03/17 04:00 08/03/17 04:00 Intake and Output: 08/03/17 08/03/17 06:59 18:59 Intake Total 1100 Output Total 700 Balance 400 - Medications Medications: Current Medications Acetaminophen (Tylenol 650mg/20.3ml Solution Ud) 650 mg NG Q6 PRN PRN Reason: fever Last Admin: 07/29/17 22:31 Dose: 650 mg Amiodarone HCl (Cordarone) 200 mg PO DAILY [facility] Last Admin: 08/02/17 09:07 Dose: 200 mg Aspirin (Aspirin Chewable) 81 mg PO DAILY [facility] Last Admin: 08/02/17 09:06 Dose: 81 mg Chlorthalidone (Hygroton) 25 mg PO DAILY [facility] Last Admin: 08/02/17 10:48 Dose: 25 mg Dextrose (Dextrose 50% Inj) 0 ml IV STAT PRN; Protocol PRN Reason: Hypoglycemia Protocol Last Admin: 08/01/17 18:02 Dose: 50 ml Dextrose (Glutose 15) 0 gm PO ONCE PRN; Protocol PRN Reason: Hypoglycemia Protocol Diltiazem HCl (Cardizem) 30 mg PO QID [facility] Last Admin: 08/02/17 22:03 Dose: 30 mg Docusate Sodium (Colace) 100 mg PO DAILY [facility] Last Admin: 08/02/17 09:07 Dose: 100 mg Enoxaparin Sodium (Lovenox) 40 mg SC DAILY [facility] Last Admin: 08/02/17 09:10 Dose: 40 mg Finasteride (Proscar) 5 mg PO DAILY [facility] Last Admin: 08/02/17 09:10 Dose: 5 mg Gabapentin (Neurontin) 300 mg PO TID [facility] Last Admin: 08/02/17 17:34 Dose: 300 mg Glucagon (Glucagen Diagnostic Kit) 0 mg IM STAT PRN; Protocol PRN Reason: Hypoglycemia Protocol Hydralazine HCl (Apresoline) 10 mg IVP Q6H PRN PRN Reason: Systolic Blood Pressure Hydromorphone HCl (Dilaudid) 0.5 mg IVP Q4H PRN PRN Reason: Pain, moderate (4-7) Last Admin: 08/02/17 20:57 Dose: 0.5 mg Piperacillin Sod/Tazobactam (Sod 3.375 gm/ Sodium Chloride) 100 mls @ 200 mls/ hr IVPB Q8H [facility] Last Admin: 08/03/17 02:18 Dose: 200 mls/hr Metronidazole (Flagyl) 500 mg in 100 mls @ 100 mls/hr IVPB Q8 [facility] Last Admin: 08/03/17 05:56 Dose: 100 mls/hr Dextrose/Sodium Chloride (Dextrose 5%/0.45% Ns 1000 Ml) 1,000 mls @ 100 mls/hr IV .Q10H [facility] Last Admin: 08/02/17 23:51 Dose: 100 mls/hr Levetiracetam 500 mg/ Sodium (Chloride) 105 mls @ 420 mls/hr IVPB Q12H [facility] Last Admin: 08/03/17 02:45 Dose: 420 mls/hr Levetiracetam (Keppra) 500 mg PO BID [facility] Last Admin: 08/02/17 17:44 Dose: Not Given Losartan Potassium (Cozaar) 25 mg PO DAILY [facility] Last Admin: 08/02/17 09:08 Dose: 25 mg Metoprolol Tartrate (Lopressor) 5 mg IVP Q6H PRN PRN Reason: Heart rate Ondansetron HCl (Zofran Inj) 4 mg IVP Q8H PRN PRN Reason: Nausea/Vomiting Last Admin: 07/29/17 11:57 Dose: 4 mg Pantoprazole Sodium (Protonix Inj) 40 mg IVP DAILY [facility] Last Admin: 08/02/17 12:29 Dose: 40 mg Polyethylene Glycol (Miralax) 17 gm NG TID [facility] Last Admin: 08/02/17 17:27 Dose: Not Given Rosuvastatin Calcium (Crestor) 10 mg PO [facility] Last Admin: 08/03/17 01:02 Dose: 10 mg Tamsulosin HCl (Flomax) 0.4 mg PO DAILY [facility] Last Admin: 08/02/17 09:08 Dose: Not Given Zolpidem Tartrate (Ambien) 5 mg PO HS [facility] Last Admin: 08/02/17 22:02 Dose: 5 mg - Labs Labs: 08/03/17 06:30 08/03/17 06:31 PT 15.0 SECONDS (9.7-12.2) H 07/30/17 08:02 INR 1.3 07/30/17 08:02 APTT 34 SECONDS (21-34) D 07/30/17 08:02 - Constitutional Appears: Non-toxic, No Acute Distress - Head Exam Head Exam: ATRAUMATIC, NORMOCEPHALIC - Respiratory Exam Respiratory Exam: NORMAL BREATHING PATTERN. absent: Respiratory Distress - GI/Abdominal Exam GI & Abdominal Exam: Guarding (mild), Soft, Tenderness (appropriatly at incision site). absent: Distended, Firm, Rigid, Rebound - Neurological Exam Neurological Exam: Alert, Awake - Skin Skin Exam: Dry, Warm Assessment and Plan - Assessment and Plan (Free Text) Assessment: 72M s/p Right hemicolectomy and small bowel resection w/ primary anastomosis POD #3 Plan: Dressing Changed Cont NPO Monitor bowel function Pain control PRN Cont IV Abx OOB as able PT Encourage IS use Further mgmt as per primary team D/W Dr. Amanda Douglas PGY4
--- NOTE | 2017-08-03 08:24 | RAD ---
Chest x-ray single frontal view History: NG tube placement. Comparison: 07/31/2017 Findings: NG tube extending stomach. Surgical clips project over upper abdomen. Gaseous distention of bowel loops Question trace left pleural effusion. Mild venous congestion. Tortuous aorta. Mild cardiomegaly. Impression : NG tube extending stomach. Surgical clips project over upper abdomen. Gaseous distention of bowel loops Question trace left pleural effusion. Mild venous congestion. Tortuous aorta. Mild cardiomegaly.
[2017-08-03] MEDS: HYDROmorphone 0.5 mg/0.5 ml ISec IVP PRN (08:27)
[2017-08-03 08:35] LABS: ANISOCYTOSIS SLIGHT; LYMPHOCYTE 5 % (20-40); MONOCYTE 2 % (0-10); NEUTROPHIL 93 % (50-75); PLATELET ESTIMATE NORMAL (NORMAL); TOTAL CELLS COUNTED 100
[2017-08-03 08:36] LABS: HYPOCHROMIC SLIGHT; MICROCYTOSIS SLIGHT; OVALOCYTES SLIGHT; POLYCHROMIC SLIGHT
[2017-08-03 08:37] LABS: TEARDROP CELLS SLIGHT
[2017-08-03 08:42] LABS: TARGET CELLS SLIGHT
[2017-08-03] MEDS: POLYETHYLENE GLYCOL 3350 17 GM/Dose PACKET NG SCH ×3 (09:20→17:17)
[2017-08-03] MEDS: Enoxaparin 40 mg Syringe SC SCH (09:36)
[2017-08-03] MEDS: Dextrose 5%/0.45% NS 1,000 ML IV SCH ×2 (09:39→20:27)
--- NOTE | 2017-08-03 10:20 | CP.PCM.PN ---
<Stanislav Dunn - Last Filed: 08/03/17 18:39> Subjective - Date & Time of Evaluation Date of Evaluation: 08/03/17 Time of Evaluation: 10:15 - Subjective Subjective: Cardiology Progress Note for Dr. Brown Patient seen and examined at bedside. Nurse reports patient passed first BM is able to tolerate PO medications and therefore better control of the patient's HR and BP has been obtained. Patient denies chest pain, dyspnea, or weakness. Objective - Vital Signs/Intake and Output Vital Signs (last 24 hours): Temp Pulse Resp BP Pulse Ox 97.9 F 114 H 18 139/84 97 08/03/17 04:00 08/03/17 08:00 08/03/17 08:00 08/03/17 08:00 08/03/17 08:00 Intake and Output: 08/03/17 08/03/17 06:59 18:59 Intake Total 1100 500 Output Total 700 300 Balance 400 200 - Medications Medications: Current Medications Acetaminophen (Tylenol 650mg/20.3ml Solution Ud) 650 mg NG Q6 PRN PRN Reason: fever Last Admin: 07/29/17 22:31 Dose: 650 mg Amiodarone HCl (Cordarone) 200 mg PO DAILY [facility] Last Admin: 08/03/17 09:31 Dose: 200 mg Aspirin (Aspirin Chewable) 81 mg PO DAILY [facility] Last Admin: 08/03/17 09:31 Dose: 81 mg Chlorthalidone (Hygroton) 25 mg PO DAILY [facility] Last Admin: 08/03/17 09:50 Dose: 25 mg Dextrose (Dextrose 50% Inj) 0 ml IV STAT PRN; Protocol PRN Reason: Hypoglycemia Protocol Last Admin: 08/01/17 18:02 Dose: 50 ml Dextrose (Glutose 15) 0 gm PO ONCE PRN; Protocol PRN Reason: Hypoglycemia Protocol Diltiazem HCl (Cardizem) 30 mg PO QID [facility] Last Admin: 08/03/17 09:31 Dose: 30 mg Docusate Sodium (Colace) 100 mg PO DAILY [facility] Last Admin: 08/03/17 09:31 Dose: 100 mg Enoxaparin Sodium (Lovenox) 40 mg SC DAILY [facility] Last Admin: 08/03/17 09:36 Dose: 40 mg Finasteride (Proscar) 5 mg PO DAILY [facility] Last Admin: 08/03/17 09:36 Dose: 5 mg Gabapentin (Neurontin) 300 mg PO TID [facility] Last Admin: 08/03/17 09:36 Dose: 300 mg Glucagon (Glucagen Diagnostic Kit) 0 mg IM STAT PRN; Protocol PRN Reason: Hypoglycemia Protocol Hydralazine HCl (Apresoline) 10 mg IVP Q6H PRN PRN Reason: Systolic Blood Pressure Hydromorphone HCl (Dilaudid) 0.5 mg IVP Q4H PRN PRN Reason: Pain, moderate (4-7) Last Admin: 08/03/17 08:27 Dose: 0.5 mg Piperacillin Sod/Tazobactam (Sod 3.375 gm/ Sodium Chloride) 100 mls @ 200 mls/ hr IVPB Q8H [facility] Last Admin: 08/03/17 09:36 Dose: 200 mls/hr Metronidazole (Flagyl) 500 mg in 100 mls @ 100 mls/hr IVPB Q8 [facility] Last Admin: 08/03/17 05:56 Dose: 100 mls/hr Dextrose/Sodium Chloride (Dextrose 5%/0.45% Ns 1000 Ml) 1,000 mls @ 100 mls/hr IV .Q10H [facility] Last Admin: 08/03/17 09:39 Dose: 100 mls/hr Levetiracetam 500 mg/ Sodium (Chloride) 105 mls @ 420 mls/hr IVPB Q12H [facility] Last Admin: 08/03/17 02:45 Dose: 420 mls/hr Levetiracetam (Keppra) 500 mg PO BID [facility] Last Admin: 08/02/17 17:44 Dose: Not Given Losartan Potassium (Cozaar) 25 mg PO DAILY [facility] Last Admin: 08/03/17 09:35 Dose: 25 mg Metoprolol Tartrate (Lopressor) 5 mg IVP Q6H PRN PRN Reason: Heart rate Ondansetron HCl (Zofran Inj) 4 mg IVP Q8H PRN PRN Reason: Nausea/Vomiting Last Admin: 07/29/17 11:57 Dose: 4 mg Pantoprazole Sodium (Protonix Inj) 40 mg IVP DAILY [facility] Last Admin: 08/03/17 09:36 Dose: 40 mg Polyethylene Glycol (Miralax) 17 gm NG TID [facility] Last Admin: 08/03/17 09:20 Dose: Not Given Rosuvastatin Calcium (Crestor) 10 mg PO HS [facility] Last Admin: 08/03/17 01:02 Dose: 10 mg Tamsulosin HCl (Flomax) 0.4 mg PO DAILY [facility] Last Admin: 08/03/17 09:52 Dose: Not Given Zolpidem Tartrate (Ambien) 5 mg PO HS [facility] Last Admin: 08/02/17 22:02 Dose: 5 mg - Labs Labs: 08/03/17 06:30 08/03/17 06:31 PT 15.0 SECONDS (9.7-12.2) H 07/30/17 08:02 INR 1.3 07/30/17 08:02 APTT 34 SECONDS (21-34) D 07/30/17 08:02 - Constitutional Appears: Non-toxic - Head Exam Head Exam: ATRAUMATIC, NORMOCEPHALIC - Eye Exam Eye Exam: EOMI, Normal appearance - ENT Exam ENT Exam: Mucous Membranes Moist, Normal Oropharynx - Neck Exam Neck Exam: Normal Inspection - Respiratory Exam Respiratory Exam: Clear to Ausculation Bilateral, NORMAL BREATHING PATTERN. absent: Accessory Muscle Use - Cardiovascular Exam Cardiovascular Exam: +S1, +S2. absent: Tachycardia - GI/Abdominal Exam GI & Abdominal Exam: Soft. absent: Guarding, Tenderness, Rebound - Extremities Exam Extremities Exam: Normal Capillary Refill, Normal Inspection. absent: Calf Tenderness - Back Exam Back Exam: NORMAL INSPECTION. absent: CVA tenderness (L), CVA tenderness (R) - Neurological Exam Neurological Exam: Alert, Awake, CN II-XII Intact - Psychiatric Exam Psychiatric exam: Normal Affect, Normal Mood - Skin Skin Exam: Dry, Intact Assessment and Plan - Assessment and Plan (Free Text) Assessment: 72 year old male with history of peripheral vascular disease with bilateral lower extremity amputation, atrial fibrillation, CVA, and epilepsy who presented to [facility] for abdominal pain and constipation. CT of the abdomen and pelvis showed constipation, extending into the small bowel. GI deferred colonoscopy. Cardiology was consulted by surgery for a non-cardiac surgical risk assessment. Patient's is s/p right hemicolectomy and small bowel resection and currently rate controlled, hemodynamically stable, and medically optimized. Plan: Continue medical management as per primary. As always, thank you for allowing us to participate in the care of this patient. Case discussed with attending physician, Dr. Brown. <Luis Brown - Last Filed: 08/03/17 18:43> Objective - Vital Signs/Intake and Output Vital Signs (last 24 hours): Temp Pulse Resp BP Pulse Ox 97.5 F L 81 12 130/74 97 08/03/17 12:00 08/03/17 12:00 08/03/17 12:00 08/03/17 12:00 08/03/17 12:00 Intake and Output: 08/03/17 08/03/17 06:59 18:59 Intake Total 1100 500 Output Total 700 300 Balance 400 200 - Medications Medications: Current Medications Acetaminophen (Tylenol 650mg/20.3ml Solution Ud) 650 mg NG Q6 PRN PRN Reason: fever Last Admin: 07/29/17 22:31 Dose: 650 mg Amiodarone HCl (Cordarone) 200 mg PO DAILY [facility] Last Admin: 08/03/17 09:31 Dose: 200 mg Aspirin (Aspirin Chewable) 81 mg PO DAILY [facility] Last Admin: 08/03/17 09:31 Dose: 81 mg Chlorthalidone (Hygroton) 25 mg PO DAILY [facility] Last Admin: 08/03/17 09:50 Dose: 25 mg Dextrose (Dextrose 50% Inj) 0 ml IV STAT PRN; Protocol PRN Reason: Hypoglycemia Protocol Last Admin: 08/01/17 18:02 Dose: 50 ml Dextrose (Glutose 15) 0 gm PO ONCE PRN; Protocol PRN Reason: Hypoglycemia Protocol Diltiazem HCl (Cardizem) 30 mg PO QID [facility] Last Admin: 08/03/17 17:19 Dose: 30 mg Docusate Sodium (Colace) 100 mg PO DAILY [facility] Last Admin: 08/03/17 09:31 Dose: 100 mg Enoxaparin Sodium (Lovenox) 70 mg SC DAILY [facility] Enoxaparin Sodium (Lovenox) 30 mg SC ONCE ONE Stop: 08/04/17 18:24 Finasteride (Proscar) 5 mg PO DAILY [facility] Last Admin: 08/03/17 09:36 Dose: 5 mg Gabapentin (Neurontin) 300 mg PO TID [facility] Last Admin: 08/03/17 17:20 Dose: 300 mg Glucagon (Glucagen Diagnostic Kit) 0 mg IM STAT PRN; Protocol PRN Reason: Hypoglycemia Protocol Hydralazine HCl (Apresoline) 10 mg IVP Q6H PRN PRN Reason: Systolic Blood Pressure Hydromorphone HCl (Dilaudid) 0.5 mg IVP Q4H PRN PRN Reason: Pain, moderate (4-7) Last Admin: 08/03/17 08:27 Dose: 0.5 mg Metronidazole (Flagyl) 500 mg in 100 mls @ 100 mls/hr IVPB Q8 [facility] Last Admin: 08/03/17 17:20 Dose: 100 mls/hr Dextrose/Sodium Chloride (Dextrose 5%/0.45% Ns 1000 Ml) 1,000 mls @ 100 mls/hr IV .Q10H [facility] Last Admin: 08/03/17 09:39 Dose: 100 mls/hr Levetiracetam 500 mg/ Sodium (Chloride) 105 mls @ 420 mls/hr IVPB Q12H [facility] Last Admin: 08/03/17 17:18 Dose: 420 mls/hr Piperacillin Sod/Tazobactam Sod (Zosyn 4.5 Gm Iv Premix) 4.5 gm in 100 mls @ 200 mls/hr IVPB Q8H [facility] Levetiracetam (Keppra) 500 mg PO BID [facility] Last Admin: 08/02/17 17:44 Dose: Not Given Losartan Potassium (Cozaar) 25 mg PO DAILY [facility] Last Admin: 08/03/17 09:35 Dose: 25 mg Metoprolol Tartrate (Lopressor) 5 mg IVP Q6H PRN PRN Reason: Heart rate Ondansetron HCl (Zofran Inj) 4 mg IVP Q8H PRN PRN Reason: Nausea/Vomiting Last Admin: 07/29/17 11:57 Dose: 4 mg Pantoprazole Sodium (Protonix Inj) 40 mg IVP DAILY [facility] Last Admin: 08/03/17 09:36 Dose: 40 mg Polyethylene Glycol (Miralax) 17 gm NG TID [facility] Last Admin: 08/03/17 17:17 Dose: 17 gm Rosuvastatin Calcium (Crestor) 10 mg PO [facility] Last Admin: 08/03/17 01:02 Dose: 10 mg Tamsulosin HCl (Flomax) 0.4 mg PO DAILY [facility] Last Admin: 08/03/17 09:52 Dose: Not Given Zolpidem Tartrate (Ambien) 5 mg PO [facility] Last Admin: 08/02/17 22:02 Dose: 5 mg - Labs Labs: 08/03/17 06:30 08/03/17 06:31 PT 15.0 SECONDS (9.7-12.2) H 07/30/17 08:02 INR 1.3 07/30/17 08:02 APTT 34 SECONDS (21-34) D 07/30/17 08:02 Attending/Attestation - Attestation I have personally seen and examined this patient.: Yes I have fully participated in the care of the patient.: Yes I have reviewed all pertinent clinical information, including history, physical exam and plan: Yes Notes (Text): 08/03/17 18:42 change lovenox to therapeutic dose at 1mg/kg sc q12 hours
--- NOTE | 2017-08-03 19:30 | CP.PCM.PN ---
Subjective - Date & Time of Evaluation Date of Evaluation: 08/03/17 Time of Evaluation: 16:40 - Subjective Subjective: clinically same Objective - Vital Signs/Intake and Output Vital Signs (last 24 hours): Temp Pulse Resp BP Pulse Ox 97.5 F L 81 12 130/74 97 08/03/17 12:00 08/03/17 12:00 08/03/17 12:00 08/03/17 12:00 08/03/17 12:00 Intake and Output: 08/03/17 08/04/17 18:59 06:59 Intake Total 500 Output Total 300 Balance 200 - Medications Medications: Current Medications Acetaminophen (Tylenol 650mg/20.3ml Solution Ud) 650 mg NG Q6 PRN PRN Reason: fever Last Admin: 07/29/17 22:31 Dose: 650 mg Amiodarone HCl (Cordarone) 200 mg PO DAILY [facility] Last Admin: 08/03/17 09:31 Dose: 200 mg Aspirin (Aspirin Chewable) 81 mg PO DAILY [facility] Last Admin: 08/03/17 09:31 Dose: 81 mg Chlorthalidone (Hygroton) 25 mg PO DAILY [facility] Last Admin: 08/03/17 09:50 Dose: 25 mg Dextrose (Dextrose 50% Inj) 0 ml IV STAT PRN; Protocol PRN Reason: Hypoglycemia Protocol Last Admin: 08/01/17 18:02 Dose: 50 ml Dextrose (Glutose 15) 0 gm PO ONCE PRN; Protocol PRN Reason: Hypoglycemia Protocol Diltiazem HCl (Cardizem) 30 mg PO QID [facility] Last Admin: 08/03/17 17:19 Dose: 30 mg Docusate Sodium (Colace) 100 mg PO DAILY [facility] Last Admin: 08/03/17 09:31 Dose: 100 mg Enoxaparin Sodium (Lovenox) 70 mg SC DAILY [facility] Enoxaparin Sodium (Lovenox) 30 mg SC ONCE ONE Stop: 08/04/17 18:24 Finasteride (Proscar) 5 mg PO DAILY [facility] Last Admin: 08/03/17 09:36 Dose: 5 mg Gabapentin (Neurontin) 300 mg PO TID [facility] Last Admin: 08/03/17 17:20 Dose: 300 mg Glucagon (Glucagen Diagnostic Kit) 0 mg IM STAT PRN; Protocol PRN Reason: Hypoglycemia Protocol Hydralazine HCl (Apresoline) 10 mg IVP Q6H PRN PRN Reason: Systolic Blood Pressure Hydromorphone HCl (Dilaudid) 0.5 mg IVP Q4H PRN PRN Reason: Pain, moderate (4-7) Last Admin: 08/03/17 08:27 Dose: 0.5 mg Metronidazole (Flagyl) 500 mg in 100 mls @ 100 mls/hr IVPB Q8 [facility] Last Admin: 08/03/17 17:20 Dose: 100 mls/hr Dextrose/Sodium Chloride (Dextrose 5%/0.45% Ns 1000 Ml) 1,000 mls @ 100 mls/hr IV .Q10H [facility] Last Admin: 08/03/17 09:39 Dose: 100 mls/hr Levetiracetam 500 mg/ Sodium (Chloride) 105 mls @ 420 mls/hr IVPB Q12H [facility] Last Admin: 08/03/17 17:18 Dose: 420 mls/hr Piperacillin Sod/Tazobactam Sod (Zosyn 4.5 Gm Iv Premix) 4.5 gm in 100 mls @ 200 mls/hr IVPB Q8H [facility] Levetiracetam (Keppra) 500 mg PO BID [facility] Last Admin: 08/02/17 17:44 Dose: Not Given Losartan Potassium (Cozaar) 25 mg PO DAILY [facility] Last Admin: 08/03/17 09:35 Dose: 25 mg Metoprolol Tartrate (Lopressor) 5 mg IVP Q6H PRN PRN Reason: Heart rate Ondansetron HCl (Zofran Inj) 4 mg IVP Q8H PRN PRN Reason: Nausea/Vomiting Last Admin: 07/29/17 11:57 Dose: 4 mg Pantoprazole Sodium (Protonix Inj) 40 mg IVP DAILY [facility] Last Admin: 08/03/17 09:36 Dose: 40 mg Polyethylene Glycol (Miralax) 17 gm NG TID [facility] Last Admin: 08/03/17 17:17 Dose: 17 gm Rosuvastatin Calcium (Crestor) 10 mg PO [facility] Last Admin: 08/03/17 01:02 Dose: 10 mg Tamsulosin HCl (Flomax) 0.4 mg PO DAILY [facility] Last Admin: 08/03/17 09:52 Dose: Not Given Zolpidem Tartrate (Ambien) 5 mg PO HS [facility] Last Admin: 08/02/17 22:02 Dose: 5 mg - Labs Labs: 08/03/17 06:30 08/03/17 06:31 PT 15.0 SECONDS (9.7-12.2) H 07/30/17 08:02 INR 1.3 07/30/17 08:02 APTT 34 SECONDS (21-34) D 07/30/17 08:02 - Constitutional Appears: Well - Head Exam Head Exam: ATRAUMATIC, NORMAL INSPECTION, NORMOCEPHALIC - Eye Exam Eye Exam: EOMI, Normal appearance, PERRL Pupil Exam: NORMAL ACCOMODATION, PERRL - ENT Exam ENT Exam: Mucous Membranes Moist, Normal Exam - Neck Exam Neck Exam: Full ROM, Normal Inspection. absent: Lymphadenopathy - Respiratory Exam Respiratory Exam: Decreased Breath Sounds - Cardiovascular Exam Cardiovascular Exam: REGULAR RHYTHM, +S1, +S2 - GI/Abdominal Exam GI & Abdominal Exam: Soft, Diminished Bowel Sounds - Rectal Exam Rectal Exam: Deferred
[2017-08-03] MEDS: Piperacill/Tazo 4.5gm in Dex 4.5 GM/100 ML BAG IVPB SCH (20:53)
--- NOTE | 2017-08-03 23:48 | CP.PCM.PN ---
Subjective - Date & Time of Evaluation Date of Evaluation: 08/03/17 Time of Evaluation: 23:48 - Subjective Subjective: AFEBRILE, OFFERS NO NEW COMPLAINT. HAD BM TODAY. NGT -OUT LABS REVIEWED ALL CULTURES NEGATIVE TO DATE. rENAL FUNCTIONS OKAY LFTS N wbc 7.9, H/H 10.4, PLATELETS OKAY. Objective - Vital Signs/Intake and Output Vital Signs (last 24 hours): Temp Pulse Resp BP Pulse Ox 98.4 F 85 15 132/84 97 08/03/17 16:00 08/03/17 18:00 08/03/17 16:00 08/03/17 16:00 08/03/17 16:00 Intake and Output: 08/03/17 08/04/17 18:59 06:59 Intake Total 1500 Output Total 850 Balance 650 - Medications Medications: Current Medications Acetaminophen (Tylenol 650mg/20.3ml Solution Ud) 650 mg NG Q6 PRN PRN Reason: fever Last Admin: 07/29/17 22:31 Dose: 650 mg Amiodarone HCl (Cordarone) 200 mg PO DAILY [facility] Last Admin: 08/03/17 09:31 Dose: 200 mg Aspirin (Aspirin Chewable) 81 mg PO DAILY [facility] Last Admin: 08/03/17 09:31 Dose: 81 mg Chlorthalidone (Hygroton) 25 mg PO DAILY [facility] Last Admin: 08/03/17 09:50 Dose: 25 mg Dextrose (Dextrose 50% Inj) 0 ml IV STAT PRN; Protocol PRN Reason: Hypoglycemia Protocol Last Admin: 08/01/17 18:02 Dose: 50 ml Dextrose (Glutose 15) 0 gm PO ONCE PRN; Protocol PRN Reason: Hypoglycemia Protocol Diltiazem HCl (Cardizem) 30 mg PO QID [facility] Last Admin: 08/03/17 22:09 Dose: 30 mg Docusate Sodium (Colace) 100 mg PO DAILY [facility] Last Admin: 08/03/17 09:31 Dose: 100 mg Enoxaparin Sodium (Lovenox) 70 mg SC DAILY [facility] Enoxaparin Sodium (Lovenox) 30 mg SC ONCE ONE Stop: 08/04/17 18:24 Finasteride (Proscar) 5 mg PO DAILY [facility] Last Admin: 08/03/17 09:36 Dose: 5 mg Gabapentin (Neurontin) 300 mg PO TID [facility] Last Admin: 08/03/17 17:20 Dose: 300 mg Glucagon (Glucagen Diagnostic Kit) 0 mg IM STAT PRN; Protocol PRN Reason: Hypoglycemia Protocol Hydralazine HCl (Apresoline) 10 mg IVP Q6H PRN PRN Reason: Systolic Blood Pressure Hydromorphone HCl (Dilaudid) 0.5 mg IVP Q4H PRN PRN Reason: Pain, moderate (4-7) Last Admin: 08/03/17 08:27 Dose: 0.5 mg Metronidazole (Flagyl) 500 mg in 100 mls @ 100 mls/hr IVPB Q8 [facility] Last Admin: 08/03/17 21:00 Dose: 100 mls/hr Dextrose/Sodium Chloride (Dextrose 5%/0.45% Ns 1000 Ml) 1,000 mls @ 100 mls/hr IV .Q10H [facility] Last Admin: 08/03/17 20:27 Dose: Not Given Levetiracetam 500 mg/ Sodium (Chloride) 105 mls @ 420 mls/hr IVPB Q12H [facility] Last Admin: 08/03/17 17:18 Dose: 420 mls/hr Piperacillin Sod/Tazobactam Sod (Zosyn 4.5 Gm Iv Premix) 4.5 gm in 100 mls @ 200 mls/hr IVPB Q8H [facility] Last Admin: 08/03/17 20:53 Dose: 200 mls/hr Levetiracetam (Keppra) 500 mg PO BID [facility] Last Admin: 08/02/17 17:44 Dose: Not Given Losartan Potassium (Cozaar) 25 mg PO DAILY [facility] Last Admin: 08/03/17 09:35 Dose: 25 mg Metoprolol Tartrate (Lopressor) 5 mg IVP Q6H PRN PRN Reason: Heart rate Ondansetron HCl (Zofran Inj) 4 mg IVP Q8H PRN PRN Reason: Nausea/Vomiting Last Admin: 07/29/17 11:57 Dose: 4 mg Pantoprazole Sodium (Protonix Inj) 40 mg IVP DAILY [facility] Last Admin: 08/03/17 09:36 Dose: 40 mg Polyethylene Glycol (Miralax) 17 gm NG TID [facility] Last Admin: 08/03/17 17:17 Dose: 17 gm Rosuvastatin Calcium (Crestor) 10 mg PO HS [facility] Last Admin: 08/03/17 22:09 Dose: 10 mg Tamsulosin HCl (Flomax) 0.4 mg PO DAILY [facility] Last Admin: 08/03/17 09:52 Dose: Not Given Zolpidem Tartrate (Ambien) 5 mg PO [facility] Last Admin: 08/02/17 22:02 Dose: 5 mg - Labs Labs: 08/03/17 06:30 08/03/17 06:31 PT 15.0 SECONDS (9.7-12.2) H 07/30/17 08:02 INR 1.3 07/30/17 08:02 APTT 34 SECONDS (21-34) D 07/30/17 08:02 - Constitutional Appears: No Acute Distress - Head Exam Head Exam: NORMAL INSPECTION - Eye Exam Eye Exam: EOMI, PERRL - ENT Exam ENT Exam: Normal Oropharynx - Neck Exam Neck Exam: Normal Inspection - Respiratory Exam Respiratory Exam: Clear to Ausculation Bilateral - Cardiovascular Exam Cardiovascular Exam: REGULAR RHYTHM, +S1, +S2 - GI/Abdominal Exam GI & Abdominal Exam: Soft, Hypoactive Bowel Sounds (DRESSING IN PLACE.) - Neurological Exam Neurological Exam: Awake - Skin Skin Exam: Normal Color, Warm Assessment and Plan - Assessment and Plan (Free Text) Assessment: IMPRESSION; - S/P RIGHT HEMICOLECTOMY/SMALL BOWEL RESECTION WITH PRIMARY ANASTOMOSIS.07/31/17 -AND RESECTION CECAL MASS. -aTRIAL FIBRILLATION. -PVD S/P B/L AKA. -HX OF MULTIPLE CVAS. PLAN. ON iv ZOSYN 4.5GM EVERY 8 HOURLY 07/29/17. ON iv FLAGYL 500 EVERY 8 HOURLY 07/29/ POST -OPTIVE CARE PER SURGERY. F/U BX /pATH REPORT. PER CARDIOLOGY/ SURGERY.
[2017-08-04] MEDS: levETIRAcetam 500 MG in Sodium Chloride 0.9% 100 ML IVPB SCH (02:41)
[2017-08-04] MEDS: Piperacill/Tazo 4.5gm in Dex 4.5 GM/100 ML BAG IVPB SCH ×3 (04:01→20:30)
[2017-08-04] MEDS: metroNIDAZOLE IV 500 mg/100 ml 500 MG/100 ML BAG IVPB SCH ×3 (05:13→22:30)
[2017-08-04] MEDS: Dextrose 5%/0.45% NS 1,000 ML IV SCH ×2 (05:13→16:45)
[2017-08-04 07:25] LABS: ALB/GLOB RATIO 0.9 (1.0-2.1); ALBUMIN 2.4 g/dL (3.5-5.0); ALT/SGPT 42 U/L (21-72); AST/SGOT 35 U/L (17-59); BLOOD UREA NITROGEN 10 mg/dL (9-20); CALCIUM 7.9 mg/dl (8.6-10.4); GFR AFRICAN-AMERICAN > 60; GFR NON-AFRICAN AMERICAN > 60
[2017-08-04] MEDS ORDERED: Potassium Chloride 20 mEq/15 ml LIQ UD PO ONE ×3 (09:15→16:30)
[2017-08-04] MEDS ORDERED: Oxycodone/Acetaminophen 5/325 mg Tab PO PRN (09:41)
--- NOTE | 2017-08-04 09:45 | CP.PCM.PN ---
Subjective - Date & Time of Evaluation Date of Evaluation: 08/04/17 Time of Evaluation: 07:30 - Subjective Subjective: General surgery progress note for Dr. Nkechi Ashford, PGY-1 Pt S & E at bedside. Nursing reports large BM overnight, tolerating CLD. Pt denies N & V, F & C. Objective - Vital Signs/Intake and Output Vital Signs (last 24 hours): Temp Pulse Resp BP Pulse Ox 98 F 73 16 83/59 L 96 08/04/17 04:00 08/04/17 04:00 08/04/17 04:00 08/04/17 04:00 08/04/17 04:00 Intake and Output: 08/04/17 08/04/17 06:59 18:59 Intake Total 1375 Output Total 450 Balance 925 - Medications Medications: Current Medications Acetaminophen (Tylenol 650mg/20.3ml Solution Ud) 650 mg NG Q6 PRN PRN Reason: fever Last Admin: 07/29/17 22:31 Dose: 650 mg Amiodarone HCl (Cordarone) 200 mg PO DAILY [facility] Last Admin: 08/03/17 09:31 Dose: 200 mg Aspirin (Aspirin Chewable) 81 mg PO DAILY [facility] Last Admin: 08/03/17 09:31 Dose: 81 mg Chlorthalidone (Hygroton) 25 mg PO DAILY [facility] Last Admin: 08/03/17 09:50 Dose: 25 mg Dextrose (Dextrose 50% Inj) 0 ml IV STAT PRN; Protocol PRN Reason: Hypoglycemia Protocol Last Admin: 08/01/17 18:02 Dose: 50 ml Dextrose (Glutose 15) 0 gm PO ONCE PRN; Protocol PRN Reason: Hypoglycemia Protocol Diltiazem HCl (Cardizem) 30 mg PO QID [facility] Last Admin: 08/03/17 22:09 Dose: 30 mg Docusate Sodium (Colace) 100 mg PO DAILY [facility] Last Admin: 08/03/17 09:31 Dose: 100 mg Enoxaparin Sodium (Lovenox) 70 mg SC DAILY [facility] Enoxaparin Sodium (Lovenox) 30 mg SC ONCE [facility] Stop: 08/04/17 18:24 Finasteride (Proscar) 5 mg PO DAILY [facility] Last Admin: 08/03/17 09:36 Dose: 5 mg Gabapentin (Neurontin) 300 mg PO TID [facility] Last Admin: 08/03/17 17:20 Dose: 300 mg Glucagon (Glucagen Diagnostic Kit) 0 mg IM STAT PRN; Protocol PRN Reason: Hypoglycemia Protocol Hydralazine HCl (Apresoline) 10 mg IVP Q6H PRN PRN Reason: Systolic Blood Pressure Metronidazole (Flagyl) 500 mg in 100 mls @ 100 mls/hr IVPB Q8 [facility] Last Admin: 08/04/17 05:13 Dose: 100 mls/hr Dextrose/Sodium Chloride (Dextrose 5%/0.45% Ns 1000 Ml) 1,000 mls @ 100 mls/hr IV .Q10H [facility] Last Admin: 08/04/17 05:13 Dose: 100 mls/hr Piperacillin Sod/Tazobactam Sod (Zosyn 4.5 Gm Iv Premix) 4.5 gm in 100 mls @ 200 mls/hr IVPB Q8H [facility] Last Admin: 08/04/17 04:01 Dose: 200 mls/hr Potassium Chloride/Dextrose/Sod Cl (Potassium Chl 20 Meq In D5-1/2ns) 1,000 mls @ 50 mls/hr IV .Q20H [facility] Levetiracetam (Keppra) 500 mg PO BID [facility] Last Admin: 08/02/17 17:44 Dose: Not Given Losartan Potassium (Cozaar) 25 mg PO DAILY [facility] Last Admin: 08/03/17 09:35 Dose: 25 mg Metoprolol Tartrate (Lopressor) 5 mg IVP Q6H PRN PRN Reason: Heart rate Ondansetron HCl (Zofran Inj) 4 mg IVP Q8H PRN PRN Reason: Nausea/Vomiting Last Admin: 07/29/17 11:57 Dose: 4 mg Oxycodone/Acetaminophen (Percocet 5/325 Mg Tab) 1 tab PO Q4H PRN PRN Reason: Pain, severe (8-10) Stop: 08/07/17 09:42 Pantoprazole Sodium (Protonix Inj) 40 mg IVP DAILY [facility] Last Admin: 08/03/17 09:36 Dose: 40 mg Polyethylene Glycol (Miralax) 17 gm PO TID [facility] Rosuvastatin Calcium (Crestor) 10 mg PO HS [facility] Last Admin: 08/03/17 22:09 Dose: 10 mg Tamsulosin HCl (Flomax) 0.4 mg PO DAILY [facility] Last Admin: 08/03/17 09:52 Dose: Not Given Zolpidem Tartrate (Ambien) 5 mg PO HS [facility] Last Admin: 08/03/17 23:56 Dose: 5 mg - Labs Labs: 08/03/17 06:30 08/04/17 07:06 PT 15.0 SECONDS (9.7-12.2) H 07/30/17 08:02 INR 1.3 07/30/17 08:02 APTT 34 SECONDS (21-34) D 07/30/17 08:02 - Constitutional Appears: Non-toxic, No Acute Distress - Head Exam Head Exam: ATRAUMATIC, NORMAL INSPECTION, NORMOCEPHALIC - Eye Exam Eye Exam: EOMI, Normal appearance - ENT Exam ENT Exam: Mucous Membranes Moist, Normal Exam - Neck Exam Neck Exam: Full ROM, Normal Inspection - Respiratory Exam Respiratory Exam: NORMAL BREATHING PATTERN - Cardiovascular Exam Cardiovascular Exam: REGULAR RHYTHM, +S1, +S2 - GI/Abdominal Exam GI & Abdominal Exam: Soft. absent: Distended, Firm, Guarding, Tenderness Additional comments: mehran in place over midline incision, no drainage noted, no erythema - Extremities Exam Extremities Exam: absent: Normal Inspection (B/L AKA) - Neurological Exam Neurological Exam: Alert, Awake - Psychiatric Exam Psychiatric exam: Normal Affect, Normal Mood - Skin Skin Exam: Dry, Intact, Normal Color, Warm Assessment and Plan - Assessment and Plan (Free Text) Assessment: 72M s/p Right hemicolectomy and small bowel resection w/ primary anastomosis POD #4 Plan: Dressing removed keep ab binder in place Cont CLD Pain control changed to PO K 3.0- replaced Cont IV Abx Cont bowel regimen OOB as able Cont PT Encourage IS use Further mgmt as per primary team Will RUBY attending [place], PGY-1
[2017-08-04 10:05] LABS: BASO % 0.7 % (0.0-2.0); EOS # 0.1 K/uL (0.0-0.7); EOS % 2.1 % (0.0-4.0); HEMOGLOBIN 10.3 g/dL (12.0-18.0); LYMPH # 0.7 K/uL (1.0-4.3); LYMPH % 10.5 % (20.0-40.0); MEAN CELL VOLUME 74.6 fL (80.0-94.0); MEAN CORPUSCULAR HGB CONC 33.5 g/dL (33.0-37.0); MEAN PLATELET VOLUME 8.1 fL (7.2-11.7); MONO # 0.4 K/uL (0.0-0.8); MONO % 5.6 % (0.0-10.0); NEUT # 5.6 K/uL (1.8-7.0); NEUT % 81.1 % (50.0-75.0); RBC 4.14 Mil/uL (4.40-5.90); RED CELL DISTRIBUTION WIDTH 18.9 % (11.5-14.5); WHITE BLOOD COUNT 6.9 K/uL (4.8-10.8)
[2017-08-04] MEDS: Potassium Ch 20mEq in D5-1/2NS 1,000 ML IV SCH (10:37)
[2017-08-04] MEDS: Enoxaparin 80 mg Syringe SC SCH (10:52)
[2017-08-04] MEDS: POLYETHYLENE GLYCOL 3350 17 GM/Dose PACKET PO SCH ×3 (10:52→18:05)
--- NOTE | 2017-08-04 14:02 | CARD ---
APPROVED REPORT EKG Measurement Heart [id number] <Conclusion> Atrial fibrillation with premature ventricular or aberrantly conducted complexes Left axis deviation Right bundle branch block Inferior infarct, age undetermined T wave abnormality, consider lateral ischemia Abnormal ECG
--- NOTE | 2017-08-04 18:15 | CP.PCM.PN ---
Subjective - Date & Time of Evaluation Date of Evaluation: 08/04/17 Time of Evaluation: 12:50 - Subjective Subjective: clinically same Objective - Vital Signs/Intake and Output Vital Signs (last 24 hours): Temp Pulse Resp BP Pulse Ox 97.4 F L 83 17 118/76 97 08/04/17 16:00 08/04/17 16:00 08/04/17 16:00 08/04/17 16:00 08/04/17 16:00 Intake and Output: 08/04/17 08/04/17 06:59 18:59 Intake Total 1375 Output Total 450 Balance 925 - Medications Medications: Current Medications Acetaminophen (Tylenol 650mg/20.3ml Solution Ud) 650 mg NG Q6 PRN PRN Reason: fever Last Admin: 07/29/17 22:31 Dose: 650 mg Amiodarone HCl (Cordarone) 200 mg PO DAILY [facility] Last Admin: 08/04/17 10:49 Dose: 200 mg Aspirin (Aspirin Chewable) 81 mg PO DAILY [facility] Last Admin: 08/04/17 10:50 Dose: 81 mg Chlorthalidone (Hygroton) 25 mg PO DAILY [facility] Last Admin: 08/04/17 18:06 Dose: Not Given Dextrose (Dextrose 50% Inj) 0 ml IV STAT PRN; Protocol PRN Reason: Hypoglycemia Protocol Last Admin: 08/01/17 18:02 Dose: 50 ml Dextrose (Glutose 15) 0 gm PO ONCE PRN; Protocol PRN Reason: Hypoglycemia Protocol Diltiazem HCl (Cardizem) 30 mg PO QID [facility] Last Admin: 08/04/17 17:51 Dose: 30 mg Docusate Sodium (Colace) 100 mg PO DAILY [facility] Last Admin: 08/04/17 10:50 Dose: Not Given Enoxaparin Sodium (Lovenox) 70 mg SC DAILY [facility] Last Admin: 08/04/17 10:52 Dose: 70 mg Finasteride (Proscar) 5 mg PO DAILY [facility] Last Admin: 08/04/17 10:40 Dose: 5 mg Gabapentin (Neurontin) 300 mg PO TID [facility] Last Admin: 08/04/17 17:51 Dose: 300 mg Glucagon (Glucagen Diagnostic Kit) 0 mg IM STAT PRN; Protocol PRN Reason: Hypoglycemia Protocol Hydralazine HCl (Apresoline) 10 mg IVP Q6H PRN PRN Reason: Systolic Blood Pressure Metronidazole (Flagyl) 500 mg in 100 mls @ 100 mls/hr IVPB Q8 [facility] Last Admin: 08/04/17 13:33 Dose: 100 mls/hr Piperacillin Sod/Tazobactam Sod (Zosyn 4.5 Gm Iv Premix) 4.5 gm in 100 mls @ 200 mls/hr IVPB Q8H [facility] Last Admin: 08/04/17 13:00 Dose: 200 mls/hr Potassium Chloride/Dextrose/Sod Cl (Potassium Chl 20 Meq In D5-1/2ns) 1,000 mls @ 50 mls/hr IV .Q20H [facility] Last Admin: 08/04/17 10:37 Dose: 50 mls/hr Levetiracetam (Keppra) 500 mg PO BID [facility] Last Admin: 08/04/17 18:07 Dose: 500 mg Losartan Potassium (Cozaar) 25 mg PO DAILY [facility] Last Admin: 08/04/17 10:50 Dose: 25 mg Metoprolol Tartrate (Lopressor) 5 mg IVP Q6H PRN PRN Reason: Heart rate Ondansetron HCl (Zofran Inj) 4 mg IVP Q8H PRN PRN Reason: Nausea/Vomiting Last Admin: 07/29/17 11:57 Dose: 4 mg Oxycodone/Acetaminophen (Percocet 5/325 Mg Tab) 1 tab PO Q4H PRN PRN Reason: Pain, severe (8-10) Stop: 08/07/17 09:42 Pantoprazole Sodium (Protonix Inj) 40 mg IVP DAILY [facility] Last Admin: 08/04/17 10:50 Dose: 40 mg Polyethylene Glycol (Miralax) 17 gm PO TID [facility] Last Admin: 08/04/17 18:05 Dose: Not Given Rosuvastatin Calcium (Crestor) 10 mg PO [facility] Last Admin: 08/03/17 22:09 Dose: 10 mg Tamsulosin HCl (Flomax) 0.4 mg PO DAILY [facility] Last Admin: 08/04/17 10:50 Dose: 0.4 mg Zolpidem Tartrate (Ambien) 5 mg PO HS [facility] Last Admin: 08/03/17 23:56 Dose: 5 mg - Labs Labs: 08/04/17 10:01 08/04/17 07:06 PT 15.0 SECONDS (9.7-12.2) H 07/30/17 08:02 INR 1.3 07/30/17 08:02 APTT 34 SECONDS (21-34) D 07/30/17 08:02 - Constitutional Appears: Well - Head Exam Head Exam: ATRAUMATIC, NORMAL INSPECTION, NORMOCEPHALIC - Eye Exam Eye Exam: EOMI, Normal appearance, PERRL Pupil Exam: NORMAL ACCOMODATION, PERRL - ENT Exam ENT Exam: Mucous Membranes Moist, Normal Exam - Neck Exam Neck Exam: Full ROM, Normal Inspection. absent: Lymphadenopathy - Respiratory Exam Respiratory Exam: Decreased Breath Sounds - Cardiovascular Exam Cardiovascular Exam: REGULAR RHYTHM, +S1, +S2 - GI/Abdominal Exam GI & Abdominal Exam: Soft, Diminished Bowel Sounds - Rectal Exam Rectal Exam: Deferred
--- NOTE | 2017-08-04 18:18 | CP.PCM.PN ---
Subjective - Date & Time of Evaluation Date of Evaluation: 08/04/17 Time of Evaluation: 18:18 - Subjective Subjective: # POD 4 afebrile, tolerating clear liquids congested had a large BOWEL MOVEMENT. LABS REVIEWED. ALL CULTURES NEGATIVE TO DATE. RENAL FUNCTIONS OKAY LFTS N Objective - Vital Signs/Intake and Output Vital Signs (last 24 hours): Temp Pulse Resp BP Pulse Ox 97.4 F L 83 17 118/76 97 08/04/17 16:00 08/04/17 16:00 08/04/17 16:00 08/04/17 16:00 08/04/17 16:00 Intake and Output: 08/04/17 08/04/17 06:59 18:59 Intake Total 1375 Output Total 450 Balance 925 - Medications Medications: Current Medications Acetaminophen (Tylenol 650mg/20.3ml Solution Ud) 650 mg NG Q6 PRN PRN Reason: fever Last Admin: 07/29/17 22:31 Dose: 650 mg Amiodarone HCl (Cordarone) 200 mg PO DAILY [facility] Last Admin: 08/04/17 10:49 Dose: 200 mg Aspirin (Aspirin Chewable) 81 mg PO DAILY [facility] Last Admin: 08/04/17 10:50 Dose: 81 mg Chlorthalidone (Hygroton) 25 mg PO DAILY [facility] Last Admin: 08/04/17 18:06 Dose: Not Given Dextrose (Dextrose 50% Inj) 0 ml IV STAT PRN; Protocol PRN Reason: Hypoglycemia Protocol Last Admin: 08/01/17 18:02 Dose: 50 ml Dextrose (Glutose 15) 0 gm PO ONCE PRN; Protocol PRN Reason: Hypoglycemia Protocol Diltiazem HCl (Cardizem) 30 mg PO QID [facility] Last Admin: 08/04/17 17:51 Dose: 30 mg Docusate Sodium (Colace) 100 mg PO DAILY [facility] Last Admin: 08/04/17 10:50 Dose: Not Given Enoxaparin Sodium (Lovenox) 70 mg SC DAILY [facility] Last Admin: 08/04/17 10:52 Dose: 70 mg Finasteride (Proscar) 5 mg PO DAILY [facility] Last Admin: 08/04/17 10:40 Dose: 5 mg Gabapentin (Neurontin) 300 mg PO TID [facility] Last Admin: 08/04/17 17:51 Dose: 300 mg Glucagon (Glucagen Diagnostic Kit) 0 mg IM STAT PRN; Protocol PRN Reason: Hypoglycemia Protocol Hydralazine HCl (Apresoline) 10 mg IVP Q6H PRN PRN Reason: Systolic Blood Pressure Metronidazole (Flagyl) 500 mg in 100 mls @ 100 mls/hr IVPB Q8 [facility] Last Admin: 08/04/17 13:33 Dose: 100 mls/hr Piperacillin Sod/Tazobactam Sod (Zosyn 4.5 Gm Iv Premix) 4.5 gm in 100 mls @ 200 mls/hr IVPB Q8H [facility] Last Admin: 08/04/17 13:00 Dose: 200 mls/hr Potassium Chloride/Dextrose/Sod Cl (Potassium Chl 20 Meq In D5-1/2ns) 1,000 mls @ 50 mls/hr IV .Q20H [facility] Last Admin: 08/04/17 10:37 Dose: 50 mls/hr Levetiracetam (Keppra) 500 mg PO BID [facility] Last Admin: 08/04/17 18:07 Dose: 500 mg Losartan Potassium (Cozaar) 25 mg PO DAILY [facility] Last Admin: 08/04/17 10:50 Dose: 25 mg Metoprolol Tartrate (Lopressor) 5 mg IVP Q6H PRN PRN Reason: Heart rate Ondansetron HCl (Zofran Inj) 4 mg IVP Q8H PRN PRN Reason: Nausea/Vomiting Last Admin: 07/29/17 11:57 Dose: 4 mg Oxycodone/Acetaminophen (Percocet 5/325 Mg Tab) 1 tab PO Q4H PRN PRN Reason: Pain, severe (8-10) Stop: 08/07/17 09:42 Pantoprazole Sodium (Protonix Inj) 40 mg IVP DAILY [facility] Last Admin: 08/04/17 10:50 Dose: 40 mg Polyethylene Glycol (Miralax) 17 gm PO TID [facility] Last Admin: 08/04/17 18:05 Dose: Not Given Rosuvastatin Calcium (Crestor) 10 mg PO [facility] Last Admin: 08/03/17 22:09 Dose: 10 mg Tamsulosin HCl (Flomax) 0.4 mg PO DAILY [facility] Last Admin: 08/04/17 10:50 Dose: 0.4 mg Zolpidem Tartrate (Ambien) 5 mg PO [facility] Last Admin: 08/03/17 23:56 Dose: 5 mg - Labs Labs: 08/04/17 10:01 08/04/17 07:06 PT 15.0 SECONDS (9.7-12.2) H 07/30/17 08:02 INR 1.3 07/30/17 08:02 APTT 34 SECONDS (21-34) D 07/30/17 08:02 - Constitutional Appears: No Acute Distress - Head Exam Head Exam: NORMAL INSPECTION - Eye Exam Eye Exam: EOMI, PERRL - ENT Exam ENT Exam: Normal Oropharynx - Neck Exam Neck Exam: Normal Inspection - Respiratory Exam Respiratory Exam: Rales (BASILAR RALES) - Cardiovascular Exam Cardiovascular Exam: REGULAR RHYTHM, +S1, +S2 - GI/Abdominal Exam GI & Abdominal Exam: Soft, Hypoactive Bowel Sounds (BINDER ABDOMEN IN PLACE) - Extremities Exam Additional comments: B/L AKA - Neurological Exam Neurological Exam: Awake, CN II-XII Intact - Psychiatric Exam Psychiatric exam: Normal Mood - Skin Skin Exam: Normal Color, Warm Assessment and Plan - Assessment and Plan (Free Text) Assessment: IMPRESSION; - S/P RIGHT HEMICOLECTOMY/SMALL BOWEL RESECTION WITH PRIMARY ANASTOMOSIS.07/31/17 -AND RESECTION CECAL MASS. -aTRIAL FIBRILLATION. -PVD S/P B/L AKA. -HX OF MULTIPLE CVAS. PLAN. ON iv ZOSYN 4.5GM EVERY 8 HOURLY 07/29/17 6 DAYS X 2 DAYS MORE ON iv FLAGYL 500 EVERY 8 HOURLY 07/29/ X 2 DAYS MORE POST -OPTIVE CARE PER SURGERY. F/U BX /PATH REPORT.-P CASE DISCUSSED WITH [employer] DAMAGE [employer]OL AGENT MR [facility]. PER CARDIOLOGY/ SURGERY.
[2017-08-04] MEDS ORDERED: Enoxaparin 30 mg Syringe SC ONE (18:23)
[2017-08-04] MEDS: Albuterol-Ipratrop 3 mg / 0.5 (3 ml) UD INH PRN (21:28)
--- NOTE | 2017-08-05 00:46 | CP.PCM.PN ---
Subjective - Date & Time of Evaluation Date of Evaluation: 08/04/17 Time of Evaluation: 10:00 - Subjective Subjective: tolerating clear liquids HR well controlled Objective - Vital Signs/Intake and Output Vital Signs (last 24 hours): Temp Pulse Resp BP Pulse Ox 98.2 F 92 H 18 109/67 99 08/04/17 20:00 08/04/17 21:33 08/04/17 20:00 08/04/17 20:00 08/04/17 20:00 - Medications Medications: Current Medications Acetaminophen (Tylenol 650mg/20.3ml Solution Ud) 650 mg NG Q6 PRN PRN Reason: fever Last Admin: 07/29/17 22:31 Dose: 650 mg Albuterol/Ipratropium (Duoneb 3 Mg/0.5 Mg (3 Ml) Ud) 3 ml INH RQ2 PRN PRN Reason: Cough Last Admin: 08/04/17 21:28 Dose: 3 ml Amiodarone HCl (Cordarone) 200 mg PO DAILY [facility] Last Admin: 08/04/17 10:49 Dose: 200 mg Aspirin (Aspirin Chewable) 81 mg PO DAILY [facility] Last Admin: 08/04/17 10:50 Dose: 81 mg Chlorthalidone (Hygroton) 25 mg PO DAILY [facility] Last Admin: 08/04/17 18:06 Dose: Not Given Dextrose (Dextrose 50% Inj) 0 ml IV STAT PRN; Protocol PRN Reason: Hypoglycemia Protocol Last Admin: 08/01/17 18:02 Dose: 50 ml Dextrose (Glutose 15) 0 gm PO ONCE PRN; Protocol PRN Reason: Hypoglycemia Protocol Diltiazem HCl (Cardizem) 30 mg PO QID [facility] Last Admin: 08/04/17 22:36 Dose: 30 mg Docusate Sodium (Colace) 100 mg PO DAILY [facility] Last Admin: 08/04/17 10:50 Dose: Not Given Enoxaparin Sodium (Lovenox) 70 mg SC DAILY [facility] Last Admin: 08/04/17 10:52 Dose: 70 mg Finasteride (Proscar) 5 mg PO DAILY [facility] Last Admin: 08/04/17 10:40 Dose: 5 mg Gabapentin (Neurontin) 300 mg PO TID [facility] Last Admin: 08/04/17 17:51 Dose: 300 mg Glucagon (Glucagen Diagnostic Kit) 0 mg IM STAT PRN; Protocol PRN Reason: Hypoglycemia Protocol Hydralazine HCl (Apresoline) 10 mg IVP Q6H PRN PRN Reason: Systolic Blood Pressure Metronidazole (Flagyl) 500 mg in 100 mls @ 100 mls/hr IVPB Q8 [facility] Last Admin: 08/04/17 22:30 Dose: 100 mls/hr Piperacillin Sod/Tazobactam Sod (Zosyn 4.5 Gm Iv Premix) 4.5 gm in 100 mls @ 200 mls/hr IVPB Q8H [facility] Last Admin: 08/04/17 20:30 Dose: 200 mls/hr Potassium Chloride/Dextrose/Sod Cl (Potassium Chl 20 Meq In D5-1/2ns) 1,000 mls @ 50 mls/hr IV .Q20H [facility] Last Admin: 08/04/17 10:37 Dose: 50 mls/hr Levetiracetam (Keppra) 500 mg PO BID [facility] Last Admin: 08/04/17 18:07 Dose: 500 mg Losartan Potassium (Cozaar) 25 mg PO DAILY [facility] Last Admin: 08/04/17 10:50 Dose: 25 mg Metoprolol Tartrate (Lopressor) 5 mg IVP Q6H PRN PRN Reason: Heart rate Ondansetron HCl (Zofran Inj) 4 mg IVP Q8H PRN PRN Reason: Nausea/Vomiting Last Admin: 07/29/17 11:57 Dose: 4 mg Oxycodone/Acetaminophen (Percocet 5/325 Mg Tab) 1 tab PO Q4H PRN PRN Reason: Pain, severe (8-10) Stop: 08/07/17 09:42 Pantoprazole Sodium (Protonix Ec Tab) 40 mg PO DAILY [facility] Polyethylene Glycol (Miralax) 17 gm PO TID [facility] Last Admin: 08/04/17 18:05 Dose: Not Given Rosuvastatin Calcium (Crestor) 10 mg PO HS [facility] Last Admin: 08/04/17 22:36 Dose: 10 mg Tamsulosin HCl (Flomax) 0.4 mg PO DAILY [facility] Last Admin: 08/04/17 10:50 Dose: 0.4 mg Zolpidem Tartrate (Ambien) 5 mg PO HS [facility] Last Admin: 08/04/17 22:36 Dose: 5 mg - Labs Labs: 08/04/17 10:01 08/04/17 07:06 PT 15.0 SECONDS (9.7-12.2) H 07/30/17 08:02 INR 1.3 07/30/17 08:02 APTT 34 SECONDS (21-34) D 07/30/17 08:02 - Constitutional Appears: Well - Head Exam Head Exam: ATRAUMATIC, NORMAL INSPECTION, NORMOCEPHALIC - Eye Exam Eye Exam: EOMI, Normal appearance, PERRL Pupil Exam: NORMAL ACCOMODATION, PERRL - ENT Exam ENT Exam: Mucous Membranes Moist, Normal Exam - Neck Exam Neck Exam: Full ROM, Normal Inspection. absent: Lymphadenopathy - Respiratory Exam Respiratory Exam: Clear to Ausculation Bilateral, NORMAL BREATHING PATTERN - Cardiovascular Exam Cardiovascular Exam: Irregular Rhythm, +S1, +S2, Murmur - GI/Abdominal Exam GI & Abdominal Exam: Soft, Hypoactive Bowel Sounds. absent: Tenderness - Extremities Exam Extremities Exam: absent: Joint Swelling, Pedal Edema - Back Exam Back Exam: NORMAL INSPECTION - Neurological Exam Neurological Exam: Awake - Psychiatric Exam Psychiatric exam: Normal Affect, Normal Mood - Skin Skin Exam: Dry, Intact, Normal Color, Warm Assessment and Plan (1) Atrial fibrillation Assessment & Plan: cont amiodarone cont bb restart therpeutic AC once cleared by sx Status: Acute (2) NSVT (nonsustained ventricular tachycardia) Status: Acute (3) Preop cardiovascular exam Status: Acute (4) HTN (hypertension) Status: Chronic (5) Peripheral arterial occlusive disease Status: Resolved
[2017-08-05] MEDS: Piperacill/Tazo 4.5gm in Dex 4.5 GM/100 ML BAG IVPB SCH ×3 (04:30→20:30)
[2017-08-05] MEDS: Potassium Ch 20mEq in D5-1/2NS 1,000 ML IV SCH (06:00)
[2017-08-05] MEDS: metroNIDAZOLE IV 500 mg/100 ml 500 MG/100 ML BAG IVPB SCH ×3 (06:00→21:34)
[2017-08-05 06:42] LABS: BASO % 0.3 % (0.0-2.0); EOS # 0.2 K/uL (0.0-0.7); HEMOGLOBIN 9.9 g/dL (12.0-18.0); LYMPH # 0.9 K/uL (1.0-4.3); LYMPH % 14.4 % (20.0-40.0); MEAN CELL VOLUME 74.7 fL (80.0-94.0); MEAN CORPUSCULAR HEMOGLOBIN 24.9 pg (27.0-31.0); MEAN CORPUSCULAR HGB CONC 33.3 g/dL (33.0-37.0); MEAN PLATELET VOLUME 8.7 fL (7.2-11.7); MONO # 0.5 K/uL (0.0-0.8); MONO % 7.4 % (0.0-10.0); NEUT # 4.6 K/uL (1.8-7.0); NEUT % 74.9 % (50.0-75.0); RED CELL DISTRIBUTION WIDTH 18.8 % (11.5-14.5); WHITE BLOOD COUNT 6.2 K/uL (4.8-10.8)
[2017-08-05 06:59] LABS: ALB/GLOB RATIO 0.9 (1.0-2.1); ALBUMIN 2.3 g/dL (3.5-5.0); ALT/SGPT 38 U/L (21-72); AST/SGOT 19 U/L (17-59); BLOOD UREA NITROGEN 7 mg/dL (9-20); GFR AFRICAN-AMERICAN > 60; GFR NON-AFRICAN AMERICAN > 60
[2017-08-05] MEDS: POLYETHYLENE GLYCOL 3350 17 GM/Dose PACKET PO SCH ×3 (10:21→17:25)
[2017-08-05] MEDS: Enoxaparin 80 mg Syringe SC SCH (10:29)
[2017-08-05] MEDS: Pantoprazole 40 mg EC Tab PO SCH (10:32)
[2017-08-05] MEDS ORDERED: Potassium Chloride 20 mEq/15 ml LIQ UD PO ONE ×2 (11:15→13:30)
--- NOTE | 2017-08-05 11:22 | CP.PCM.PN ---
Subjective - Date & Time of Evaluation Date of Evaluation: 08/05/17 Time of Evaluation: 11:22 - Subjective Subjective: Patient seen and examined at bedside. Nurse reports patient has loose stools. Patient denies any chest pain, dyspnea, or palpitations. Nurse reports patient is tolerating clear liquid diet. Objective - Vital Signs/Intake and Output Vital Signs (last 24 hours): Temp Pulse Resp BP Pulse Ox 97.9 F 82 20 141/84 98 08/05/17 04:00 08/05/17 04:00 08/05/17 04:00 08/05/17 04:00 08/05/17 04:00 Intake and Output: 08/05/17 08/05/17 06:59 18:59 Intake Total 100 Balance 100 - Medications Medications: Current Medications Acetaminophen (Tylenol 650mg/20.3ml Solution Ud) 650 mg NG Q6 PRN PRN Reason: fever Last Admin: 07/29/17 22:31 Dose: 650 mg Albuterol/Ipratropium (Duoneb 3 Mg/0.5 Mg (3 Ml) Ud) 3 ml INH RQ2 PRN PRN Reason: Cough Last Admin: 08/04/17 21:28 Dose: 3 ml Amiodarone HCl (Cordarone) 200 mg PO DAILY [facility] Last Admin: 08/05/17 10:30 Dose: 200 mg Aspirin (Aspirin Chewable) 81 mg PO DAILY [facility] Last Admin: 08/05/17 10:30 Dose: 81 mg Chlorthalidone (Hygroton) 25 mg PO DAILY [facility] Last Admin: 08/04/17 18:06 Dose: Not Given Dextrose (Dextrose 50% Inj) 0 ml IV STAT PRN; Protocol PRN Reason: Hypoglycemia Protocol Last Admin: 08/01/17 18:02 Dose: 50 ml Dextrose (Glutose 15) 0 gm PO ONCE PRN; Protocol PRN Reason: Hypoglycemia Protocol Diltiazem HCl (Cardizem) 30 mg PO QID [facility] Last Admin: 08/05/17 10:30 Dose: 30 mg Docusate Sodium (Colace) 100 mg PO DAILY [facility] Last Admin: 08/05/17 10:30 Dose: 100 mg Enoxaparin Sodium (Lovenox) 70 mg SC DAILY [facility] Last Admin: 08/05/17 10:29 Dose: 70 mg Finasteride (Proscar) 5 mg PO DAILY [facility] Last Admin: 08/05/17 10:31 Dose: 5 mg Gabapentin (Neurontin) 300 mg PO TID [facility] Last Admin: 08/05/17 10:31 Dose: 300 mg Glucagon (Glucagen Diagnostic Kit) 0 mg IM STAT PRN; Protocol PRN Reason: Hypoglycemia Protocol Hydralazine HCl (Apresoline) 10 mg IVP Q6H PRN PRN Reason: Systolic Blood Pressure Metronidazole (Flagyl) 500 mg in 100 mls @ 100 mls/hr IVPB Q8 [facility] Last Admin: 08/05/17 06:00 Dose: 100 mls/hr Piperacillin Sod/Tazobactam Sod (Zosyn 4.5 Gm Iv Premix) 4.5 gm in 100 mls @ 200 mls/hr IVPB Q8H [facility] Last Admin: 08/05/17 04:30 Dose: 200 mls/hr Potassium Chloride/Dextrose/Sod Cl (Potassium Chl 20 Meq In D5-1/2ns) 1,000 mls @ 50 mls/hr IV .Q20H [facility] Last Admin: 08/05/17 06:00 Dose: 50 mls/hr Levetiracetam (Keppra) 500 mg PO BID [facility] Last Admin: 08/05/17 10:30 Dose: 500 mg Losartan Potassium (Cozaar) 25 mg PO DAILY [facility] Last Admin: 08/05/17 10:31 Dose: 25 mg Metoprolol Tartrate (Lopressor) 5 mg IVP Q6H PRN PRN Reason: Heart rate Ondansetron HCl (Zofran Inj) 4 mg IVP Q8H PRN PRN Reason: Nausea/Vomiting Last Admin: 07/29/17 11:57 Dose: 4 mg Oxycodone/Acetaminophen (Percocet 5/325 Mg Tab) 1 tab PO Q4H PRN PRN Reason: Pain, severe (8-10) Stop: 08/07/17 09:42 Pantoprazole Sodium (Protonix Ec Tab) 40 mg PO DAILY [facility] Last Admin: 08/05/17 10:32 Dose: 40 mg Polyethylene Glycol (Miralax) 17 gm PO TID [facility] Last Admin: 08/05/17 10:21 Dose: Not Given Rosuvastatin Calcium (Crestor) 10 mg PO HS [facility] Last Admin: 08/04/17 22:36 Dose: 10 mg Tamsulosin HCl (Flomax) 0.4 mg PO DAILY [facility] Last Admin: 08/05/17 10:32 Dose: 0.4 mg Zolpidem Tartrate (Ambien) 5 mg PO HS [facility] Last Admin: 08/04/17 22:36 Dose: 5 mg - Labs Labs: 08/05/17 06:30 08/05/17 06:30 PT 15.0 SECONDS (9.7-12.2) H 07/30/17 08:02 INR 1.3 07/30/17 08:02 APTT 34 SECONDS (21-34) D 07/30/17 08:02 - Constitutional Appears: Well, Non-toxic - Head Exam Head Exam: ATRAUMATIC, NORMOCEPHALIC - Eye Exam Eye Exam: EOMI, Normal appearance - ENT Exam ENT Exam: Mucous Membranes Moist, Normal Oropharynx - Neck Exam Neck Exam: Normal Inspection - Respiratory Exam Respiratory Exam: Clear to Ausculation Bilateral, NORMAL BREATHING PATTERN. absent: Accessory Muscle Use - Cardiovascular Exam Cardiovascular Exam: +S1, +S2. 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 CT of the abdomen and pelvis showed constipation, extending into the small bowel. GI deferred colonoscopy. Cardiology was consulted by surgery for a non-cardiac surgical risk assessment. Patient's is s/p right hemicolectomy and small bowel resection and currently rate controlled, hemodynamically stable, and medically optimized. 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 - Otherwise, continue all medications for rhythm and rate control. Case discussed with attending physician, Dr. Brown.
--- NOTE | 2017-08-05 16:04 | CP.PCM.PN ---
Subjective - Date & Time of Evaluation Date of Evaluation: 08/05/17 Time of Evaluation: 16:03 - Subjective Subjective: General surgery progress note for Dr. Nkechi Ashford, PGY-1 Pt S & E at bedside. Pt sitting comfortably in bed. Minmal abdominal pain. Denies N & V, F & C. Tolerating soft diet. Per nursing, having lots of BMs. Objective - Vital Signs/Intake and Output Vital Signs (last 24 hours): Temp Pulse Resp BP Pulse Ox 97.9 F 82 20 141/84 98 08/05/17 04:00 08/05/17 04:00 08/05/17 04:00 08/05/17 04:00 08/05/17 04:00 Intake and Output: 08/05/17 08/05/17 06:59 18:59 Intake Total 100 Balance 100 - Medications Medications: Current Medications Acetaminophen (Tylenol 650mg/20.3ml Solution Ud) 650 mg NG Q6 PRN PRN Reason: fever Last Admin: 07/29/17 22:31 Dose: 650 mg Albuterol/Ipratropium (Duoneb 3 Mg/0.5 Mg (3 Ml) Ud) 3 ml INH RQ2 PRN PRN Reason: Cough Last Admin: 08/04/17 21:28 Dose: 3 ml Amiodarone HCl (Cordarone) 200 mg PO DAILY [facility] Last Admin: 08/05/17 10:30 Dose: 200 mg Aspirin (Aspirin Chewable) 81 mg PO DAILY [facility] Last Admin: 08/05/17 10:30 Dose: 81 mg Chlorthalidone (Hygroton) 25 mg PO DAILY [facility] Last Admin: 08/05/17 12:50 Dose: 25 mg Dextrose (Dextrose 50% Inj) 0 ml IV STAT PRN; Protocol PRN Reason: Hypoglycemia Protocol Last Admin: 08/01/17 18:02 Dose: 50 ml Dextrose (Glutose 15) 0 gm PO ONCE PRN; Protocol PRN Reason: Hypoglycemia Protocol Diltiazem HCl (Cardizem) 30 mg PO QID [facility] Last Admin: 08/05/17 13:53 Dose: 30 mg Docusate Sodium (Colace) 100 mg PO DAILY [facility] Last Admin: 08/05/17 10:30 Dose: 100 mg Enoxaparin Sodium (Lovenox) 60 mg SC Q12 [facility] Finasteride (Proscar) 5 mg PO DAILY [facility] Last Admin: 08/05/17 10:31 Dose: 5 mg Gabapentin (Neurontin) 300 mg PO TID [facility] Last Admin: 08/05/17 13:32 Dose: 300 mg Glucagon (Glucagen Diagnostic Kit) 0 mg IM STAT PRN; Protocol PRN Reason: Hypoglycemia Protocol Hydralazine HCl (Apresoline) 10 mg IVP Q6H PRN PRN Reason: Systolic Blood Pressure Metronidazole (Flagyl) 500 mg in 100 mls @ 100 mls/hr IVPB Q8 [facility] Last Admin: 08/05/17 13:34 Dose: 100 mls/hr Piperacillin Sod/Tazobactam Sod (Zosyn 4.5 Gm Iv Premix) 4.5 gm in 100 mls @ 200 mls/hr IVPB Q8H [facility] Last Admin: 08/05/17 13:33 Dose: 200 mls/hr Potassium Chloride/Dextrose/Sod Cl (Potassium Chl 20 Meq In D5-1/2ns) 1,000 mls @ 50 mls/hr IV .Q20H [facility] Last Admin: 08/05/17 06:00 Dose: 50 mls/hr Levetiracetam (Keppra) 500 mg PO BID [facility] Last Admin: 08/05/17 10:30 Dose: 500 mg Losartan Potassium (Cozaar) 25 mg PO DAILY [facility] Last Admin: 08/05/17 10:31 Dose: 25 mg Metoprolol Tartrate (Lopressor) 5 mg IVP Q6H PRN PRN Reason: Heart rate Ondansetron HCl (Zofran Inj) 4 mg IVP Q8H PRN PRN Reason: Nausea/Vomiting Last Admin: 07/29/17 11:57 Dose: 4 mg Oxycodone/Acetaminophen (Percocet 5/325 Mg Tab) 1 tab PO Q4H PRN PRN Reason: Pain, severe (8-10) Stop: 08/07/17 09:42 Pantoprazole Sodium (Protonix Ec Tab) 40 mg PO DAILY [facility] Last Admin: 08/05/17 10:32 Dose: 40 mg Polyethylene Glycol (Miralax) 17 gm PO TID [facility] Last Admin: 08/05/17 13:27 Dose: Not Given Rosuvastatin Calcium (Crestor) 10 mg PO HS [facility] Last Admin: 08/04/17 22:36 Dose: 10 mg Tamsulosin HCl (Flomax) 0.4 mg PO DAILY [facility] Last Admin: 08/05/17 10:32 Dose: 0.4 mg Zolpidem Tartrate (Ambien) 5 mg PO HS [facility] Last Admin: 08/04/17 22:36 Dose: 5 mg - Labs Labs: 08/05/17 06:30 08/05/17 06:30 PT 15.0 SECONDS (9.7-12.2) H 07/30/17 08:02 INR 1.3 07/30/17 08:02 APTT 34 SECONDS (21-34) D 07/30/17 08:02 - Constitutional Appears: Non-toxic, No Acute Distress - Head Exam Head Exam: ATRAUMATIC, NORMAL INSPECTION, NORMOCEPHALIC - Eye Exam Eye Exam: EOMI, Normal appearance - ENT Exam ENT Exam: Mucous Membranes Moist, Normal Exam - Neck Exam Neck Exam: Full ROM, Normal Inspection - Respiratory Exam Respiratory Exam: NORMAL BREATHING PATTERN - Cardiovascular Exam Cardiovascular Exam: REGULAR RHYTHM, +S1, +S2 - GI/Abdominal Exam GI & Abdominal Exam: Soft, Tenderness (mild, over incision sites). absent: Distended, Firm, Guarding, Rigid Additional comments: midline neo in place, no erythema or drainage - Extremities Exam Extremities Exam: absent: Normal Inspection (B/L AKA) - Neurological Exam Neurological Exam: Alert, Awake - Psychiatric Exam Psychiatric exam: Normal Affect, Normal Mood - Skin Skin Exam: Dry, Intact, Normal Color, Warm Assessment and Plan - Assessment and Plan (Free Text) Assessment: 72M s/p Right hemicolectomy and small bowel resection w/ primary anastomosis POD #5 Plan: keep ab binder in place if pt wants On soft diet, ok to advance as tolerated Pain control Bowel regimen when taking opiates K 3.2- replaced Replace electrolytes PRN OOB as able PT Encourage IS use Cleared for d/c to [facility] from surgical standpoint Will need to follow up with Dr. Patel in 1 week for evaluation Neo to stay in place until evaluated by Dr. Patel Ok to shower Further mgmt as per primary team RUBY attending [employer], PGY-1
--- NOTE | 2017-08-05 17:58 | CP.PCM.PN ---
Subjective - Date & Time of Evaluation Date of Evaluation: 08/05/17 Time of Evaluation: 18:00 - Subjective Subjective: clinically same Objective - Vital Signs/Intake and Output Vital Signs (last 24 hours): Temp Pulse Resp BP Pulse Ox 97.9 F 86 20 141/84 98 08/05/17 04:00 08/05/17 10:00 08/05/17 04:00 08/05/17 04:00 08/05/17 04:00 Intake and Output: 08/05/17 08/05/17 06:59 18:59 Intake Total 100 Balance 100 - Medications Medications: Current Medications Acetaminophen (Tylenol 650mg/20.3ml Solution Ud) 650 mg NG Q6 PRN PRN Reason: fever Last Admin: 07/29/17 22:31 Dose: 650 mg Albuterol/Ipratropium (Duoneb 3 Mg/0.5 Mg (3 Ml) Ud) 3 ml INH RQ2 PRN PRN Reason: Cough Last Admin: 08/04/17 21:28 Dose: 3 ml Amiodarone HCl (Cordarone) 200 mg PO DAILY [facility] Last Admin: 08/05/17 10:30 Dose: 200 mg Aspirin (Aspirin Chewable) 81 mg PO DAILY [facility] Last Admin: 08/05/17 10:30 Dose: 81 mg Chlorthalidone (Hygroton) 25 mg PO DAILY [facility] Last Admin: 08/05/17 12:50 Dose: 25 mg Dextrose (Dextrose 50% Inj) 0 ml IV STAT PRN; Protocol PRN Reason: Hypoglycemia Protocol Last Admin: 08/01/17 18:02 Dose: 50 ml Dextrose (Glutose 15) 0 gm PO ONCE PRN; Protocol PRN Reason: Hypoglycemia Protocol Diltiazem HCl (Cardizem) 30 mg PO QID [facility] Last Admin: 08/05/17 17:33 Dose: 30 mg Docusate Sodium (Colace) 100 mg PO DAILY [facility] Last Admin: 08/05/17 10:30 Dose: 100 mg Enoxaparin Sodium (Lovenox) 60 mg SC Q12 [facility] Finasteride (Proscar) 5 mg PO DAILY [facility] Last Admin: 08/05/17 10:31 Dose: 5 mg Gabapentin (Neurontin) 300 mg PO TID [facility] Last Admin: 08/05/17 17:29 Dose: 300 mg Glucagon (Glucagen Diagnostic Kit) 0 mg IM STAT PRN; Protocol PRN Reason: Hypoglycemia Protocol Hydralazine HCl (Apresoline) 10 mg IVP Q6H PRN PRN Reason: Systolic Blood Pressure Metronidazole (Flagyl) 500 mg in 100 mls @ 100 mls/hr IVPB Q8 [facility] Last Admin: 08/05/17 13:34 Dose: 100 mls/hr Piperacillin Sod/Tazobactam Sod (Zosyn 4.5 Gm Iv Premix) 4.5 gm in 100 mls @ 200 mls/hr IVPB Q8H [facility] Last Admin: 08/05/17 13:33 Dose: 200 mls/hr Potassium Chloride/Dextrose/Sod Cl (Potassium Chl 20 Meq In D5-1/2ns) 1,000 mls @ 50 mls/hr IV .Q20H [facility] Last Admin: 08/05/17 06:00 Dose: 50 mls/hr Levetiracetam (Keppra) 500 mg PO BID [facility] Last Admin: 08/05/17 17:29 Dose: 500 mg Losartan Potassium (Cozaar) 25 mg PO DAILY [facility] Last Admin: 08/05/17 10:31 Dose: 25 mg Metoprolol Tartrate (Lopressor) 5 mg IVP Q6H PRN PRN Reason: Heart rate Ondansetron HCl (Zofran Inj) 4 mg IVP Q8H PRN PRN Reason: Nausea/Vomiting Last Admin: 07/29/17 11:57 Dose: 4 mg Oxycodone/Acetaminophen (Percocet 5/325 Mg Tab) 1 tab PO Q4H PRN PRN Reason: Pain, severe (8-10) Stop: 08/07/17 09:42 Pantoprazole Sodium (Protonix Ec Tab) 40 mg PO DAILY [facility] Last Admin: 08/05/17 10:32 Dose: 40 mg Polyethylene Glycol (Miralax) 17 gm PO TID [facility] Last Admin: 08/05/17 17:25 Dose: Not Given Rosuvastatin Calcium (Crestor) 10 mg PO HS [facility] Last Admin: 08/04/17 22:36 Dose: 10 mg Tamsulosin HCl (Flomax) 0.4 mg PO DAILY [facility] Last Admin: 08/05/17 10:32 Dose: 0.4 mg Zolpidem Tartrate (Ambien) 5 mg PO HS [facility] Last Admin: 08/04/17 22:36 Dose: 5 mg - Labs Labs: 08/05/17 06:30 08/05/17 06:30 PT 15.0 SECONDS (9.7-12.2) H 07/30/17 08:02 INR 1.3 07/30/17 08:02 APTT 34 SECONDS (21-34) D 07/30/17 08:02
[2017-08-05] MEDS ORDERED: Potassium Chloride 20 mEq ER Tab PO STA (19:55)
--- NOTE | 2017-08-05 21:22 | CP.PCM.PN ---
Subjective - Date & Time of Evaluation Date of Evaluation: 08/05/17 Time of Evaluation: 17:00 - Subjective Subjective: tolerating soft liquid diet cleared by sx to resume AC Objective - Vital Signs/Intake and Output Vital Signs (last 24 hours): Temp Pulse Resp BP Pulse Ox 98.5 F 76 17 125/80 100 08/05/17 16:00 08/05/17 18:00 08/05/17 16:00 08/05/17 16:00 08/05/17 16:00 - Medications Medications: Current Medications Acetaminophen (Tylenol 650mg/20.3ml Solution Ud) 650 mg NG Q6 PRN PRN Reason: fever Last Admin: 07/29/17 22:31 Dose: 650 mg Albuterol/Ipratropium (Duoneb 3 Mg/0.5 Mg (3 Ml) Ud) 3 ml INH RQ2 PRN PRN Reason: Cough Last Admin: 08/04/17 21:28 Dose: 3 ml Amiodarone HCl (Cordarone) 200 mg PO DAILY [facility] Last Admin: 08/05/17 10:30 Dose: 200 mg Aspirin (Aspirin Chewable) 81 mg PO DAILY [facility] Last Admin: 08/05/17 10:30 Dose: 81 mg Chlorthalidone (Hygroton) 25 mg PO DAILY [facility] Last Admin: 08/05/17 12:50 Dose: 25 mg Dextrose (Dextrose 50% Inj) 0 ml IV STAT PRN; Protocol PRN Reason: Hypoglycemia Protocol Last Admin: 08/01/17 18:02 Dose: 50 ml Dextrose (Glutose 15) 0 gm PO ONCE PRN; Protocol PRN Reason: Hypoglycemia Protocol Diltiazem HCl (Cardizem) 30 mg PO QID [facility] Last Admin: 08/05/17 17:33 Dose: 30 mg Docusate Sodium (Colace) 100 mg PO DAILY [facility] Last Admin: 08/05/17 10:30 Dose: 100 mg Enoxaparin Sodium (Lovenox) 60 mg SC Q12 [facility] Finasteride (Proscar) 5 mg PO DAILY [facility] Last Admin: 08/05/17 10:31 Dose: 5 mg Gabapentin (Neurontin) 300 mg PO TID [facility] Last Admin: 08/05/17 17:29 Dose: 300 mg Glucagon (Glucagen Diagnostic Kit) 0 mg IM STAT PRN; Protocol PRN Reason: Hypoglycemia Protocol Hydralazine HCl (Apresoline) 10 mg IVP Q6H PRN PRN Reason: Systolic Blood Pressure Metronidazole (Flagyl) 500 mg in 100 mls @ 100 mls/hr IVPB Q8 [facility] Last Admin: 08/05/17 13:34 Dose: 100 mls/hr Piperacillin Sod/Tazobactam Sod (Zosyn 4.5 Gm Iv Premix) 4.5 gm in 100 mls @ 200 mls/hr IVPB Q8H [facility] Last Admin: 08/05/17 20:30 Dose: 200 mls/hr Potassium Chloride/Dextrose/Sod Cl (Potassium Chl 20 Meq In D5-1/2ns) 1,000 mls @ 50 mls/hr IV .Q20H [facility] Last Admin: 08/05/17 06:00 Dose: 50 mls/hr Levetiracetam (Keppra) 500 mg PO BID [facility] Last Admin: 08/05/17 17:29 Dose: 500 mg Losartan Potassium (Cozaar) 25 mg PO DAILY [facility] Last Admin: 08/05/17 10:31 Dose: 25 mg Metoprolol Tartrate (Lopressor) 5 mg IVP Q6H PRN PRN Reason: Heart rate Ondansetron HCl (Zofran Inj) 4 mg IVP Q8H PRN PRN Reason: Nausea/Vomiting Last Admin: 07/29/17 11:57 Dose: 4 mg Oxycodone/Acetaminophen (Percocet 5/325 Mg Tab) 1 tab PO Q4H PRN PRN Reason: Pain, severe (8-10) Stop: 08/07/17 09:42 Pantoprazole Sodium (Protonix Ec Tab) 40 mg PO DAILY [facility] Last Admin: 08/05/17 10:32 Dose: 40 mg Polyethylene Glycol (Miralax) 17 gm PO TID [facility] Last Admin: 08/05/17 17:25 Dose: Not Given Rosuvastatin Calcium (Crestor) 10 mg PO [facility] Last Admin: 08/04/17 22:36 Dose: 10 mg Tamsulosin HCl (Flomax) 0.4 mg PO DAILY [facility] Last Admin: 08/05/17 10:32 Dose: 0.4 mg Zolpidem Tartrate (Ambien) 5 mg PO HS [facility] Last Admin: 08/04/17 22:36 Dose: 5 mg - Labs Labs: 08/05/17 06:30 08/05/17 06:30 PT 15.0 SECONDS (9.7-12.2) H 07/30/17 08:02 INR 1.3 07/30/17 08:02 APTT 34 SECONDS (21-34) D 07/30/17 08:02 - Constitutional Appears: Well - Head Exam Head Exam: ATRAUMATIC, NORMAL INSPECTION, NORMOCEPHALIC - Eye Exam Eye Exam: EOMI, Normal appearance, PERRL Pupil Exam: NORMAL ACCOMODATION, PERRL - ENT Exam ENT Exam: Mucous Membranes Moist, Normal Exam - Neck Exam Neck Exam: Full ROM, Normal Inspection. absent: Lymphadenopathy - Respiratory Exam Respiratory Exam: Clear to Ausculation Bilateral, NORMAL BREATHING PATTERN - Cardiovascular Exam Cardiovascular Exam: Irregular Rhythm, +S1, +S2, Murmur - GI/Abdominal Exam GI & Abdominal Exam: Soft, Normal Bowel Sounds. absent: Tenderness - Extremities Exam Extremities Exam: absent: Joint Swelling, Pedal Edema Additional comments: b/l AKA - Back Exam Back Exam: NORMAL INSPECTION - Neurological Exam Neurological Exam: Alert, Awake - Psychiatric Exam Psychiatric exam: Flat Affect, Normal Mood - Skin Skin Exam: Dry, Intact, Normal Color, Warm Assessment and Plan (1) Atrial fibrillation Status: Acute (2) NSVT (nonsustained ventricular tachycardia) Status: Acute (3) Preop cardiovascular exam Status: Acute (4) HTN (hypertension) Status: Chronic (5) Peripheral arterial occlusive disease Status: Resolved
[2017-08-05] MEDS: Enoxaparin 60 mg Syringe SC SCH (21:36)
--- NOTE | 2017-08-05 22:06 | CP.PCM.PN ---
Subjective - Date & Time of Evaluation Date of Evaluation: 08/05/17 Time of Evaluation: 22:05 - Subjective Subjective: AFEBRILE. C/O MINIMAL ABDOMINAL PAIN. TOLERATING SOFT DIET. .LABS REVIEWED. Objective - Vital Signs/Intake and Output Vital Signs (last 24 hours): Temp Pulse Resp BP Pulse Ox 98.6 F 74 20 105/65 100 08/05/17 20:00 08/05/17 21:00 08/05/17 21:00 08/05/17 21:00 08/05/17 21:00 Intake and Output: 08/05/17 08/06/17 18:59 06:59 Intake Total 300 Output Total 0 Balance 300 - Medications Medications: Current Medications Acetaminophen (Tylenol 650mg/20.3ml Solution Ud) 650 mg NG Q6 PRN PRN Reason: fever Last Admin: 07/29/17 22:31 Dose: 650 mg Albuterol/Ipratropium (Duoneb 3 Mg/0.5 Mg (3 Ml) Ud) 3 ml INH RQ2 PRN PRN Reason: Cough Last Admin: 08/04/17 21:28 Dose: 3 ml Amiodarone HCl (Cordarone) 200 mg PO DAILY [facility] Last Admin: 08/05/17 10:30 Dose: 200 mg Aspirin (Aspirin Chewable) 81 mg PO DAILY [facility] Last Admin: 08/05/17 10:30 Dose: 81 mg Chlorthalidone (Hygroton) 25 mg PO DAILY [facility] Last Admin: 08/05/17 12:50 Dose: 25 mg Dextrose (Dextrose 50% Inj) 0 ml IV STAT PRN; Protocol PRN Reason: Hypoglycemia Protocol Last Admin: 08/01/17 18:02 Dose: 50 ml Dextrose (Glutose 15) 0 gm PO ONCE PRN; Protocol PRN Reason: Hypoglycemia Protocol Diltiazem HCl (Cardizem) 30 mg PO QID [facility] Last Admin: 08/05/17 21:32 Dose: 30 mg Docusate Sodium (Colace) 100 mg PO DAILY [facility] Last Admin: 08/05/17 10:30 Dose: 100 mg Enoxaparin Sodium (Lovenox) 60 mg SC Q12 [facility] Last Admin: 08/05/17 21:36 Dose: 60 mg Finasteride (Proscar) 5 mg PO DAILY [facility] Last Admin: 08/05/17 10:31 Dose: 5 mg Gabapentin (Neurontin) 300 mg PO TID [facility] Last Admin: 08/05/17 17:29 Dose: 300 mg Glucagon (Glucagen Diagnostic Kit) 0 mg IM STAT PRN; Protocol PRN Reason: Hypoglycemia Protocol Hydralazine HCl (Apresoline) 10 mg IVP Q6H PRN PRN Reason: Systolic Blood Pressure Metronidazole (Flagyl) 500 mg in 100 mls @ 100 mls/hr IVPB Q8 [facility] Last Admin: 08/05/17 21:34 Dose: 100 mls/hr Piperacillin Sod/Tazobactam Sod (Zosyn 4.5 Gm Iv Premix) 4.5 gm in 100 mls @ 200 mls/hr IVPB Q8H [facility] Last Admin: 08/05/17 20:30 Dose: 200 mls/hr Potassium Chloride/Dextrose/Sod Cl (Potassium Chl 20 Meq In D5-1/2ns) 1,000 mls @ 50 mls/hr IV .Q20H [facility] Last Admin: 08/05/17 06:00 Dose: 50 mls/hr Levetiracetam (Keppra) 500 mg PO BID [facility] Last Admin: 08/05/17 17:29 Dose: 500 mg Losartan Potassium (Cozaar) 25 mg PO DAILY [facility] Last Admin: 08/05/17 10:31 Dose: 25 mg Metoprolol Tartrate (Lopressor) 5 mg IVP Q6H PRN PRN Reason: Heart rate Ondansetron HCl (Zofran Inj) 4 mg IVP Q8H PRN PRN Reason: Nausea/Vomiting Last Admin: 07/29/17 11:57 Dose: 4 mg Oxycodone/Acetaminophen (Percocet 5/325 Mg Tab) 1 tab PO Q4H PRN PRN Reason: Pain, severe (8-10) Stop: 08/07/17 09:42 Pantoprazole Sodium (Protonix Ec Tab) 40 mg PO DAILY [facility] Last Admin: 08/05/17 10:32 Dose: 40 mg Polyethylene Glycol (Miralax) 17 gm PO TID [facility] Last Admin: 08/05/17 17:25 Dose: Not Given Rosuvastatin Calcium (Crestor) 10 mg PO HS [facility] Last Admin: 08/05/17 21:32 Dose: 10 mg Tamsulosin HCl (Flomax) 0.4 mg PO DAILY [facility] Last Admin: 08/05/17 10:32 Dose: 0.4 mg Zolpidem Tartrate (Ambien) 5 mg PO HS [facility] Last Admin: 08/04/17 22:36 Dose: 5 mg - Labs Labs: 08/05/17 06:30 08/05/17 06:30 PT 15.0 SECONDS (9.7-12.2) H 07/30/17 08:02 INR 1.3 07/30/17 08:02 APTT 34 SECONDS (21-34) D 07/30/17 08:02 - Constitutional Appears: No Acute Distress - Head Exam Head Exam: NORMAL INSPECTION - Eye Exam Eye Exam: EOMI, PERRL - ENT Exam ENT Exam: Normal Oropharynx - Neck Exam Neck Exam: Normal Inspection - Respiratory Exam Respiratory Exam: Clear to Ausculation Bilateral - Cardiovascular Exam Cardiovascular Exam: REGULAR RHYTHM, +S1, +S2 - GI/Abdominal Exam GI & Abdominal Exam: Soft, Hypoactive Bowel Sounds. absent: Tenderness (POST- OPERATIVE SITE) - Extremities Exam Additional comments: B/L AKA. - Neurological Exam Neurological Exam: Awake - Psychiatric Exam Psychiatric exam: Normal Mood - Skin Skin Exam: Warm Assessment and Plan - Assessment and Plan (Free Text) Assessment: MPRESSION; - S/P RIGHT HEMICOLECTOMY/SMALL BOWEL RESECTION WITH PRIMARY ANASTOMOSIS.07/31/17 -AND RESECTION CECAL MASS. -aTRIAL FIBRILLATION. -PVD S/P B/L AKA. -HX OF MULTIPLE CVAS. PLAN. ON iv ZOSYN 4.5GM EVERY 8 HOURLY 07/29/17 7 DAYS X 1 DAY MORE ON iv FLAGYL 500 EVERY 8 HOURLY 07/29/ X 1 DAY MORE POST -OPTIVE CARE PER SURGERY. F/U BX /PATH REPORT.-P
[2017-08-06] MEDS: Potassium Ch 20mEq in D5-1/2NS 1,000 ML IV SCH ×2 (01:57→21:05)
[2017-08-06] MEDS: Piperacill/Tazo 4.5gm in Dex 4.5 GM/100 ML BAG IVPB SCH ×3 (04:28→19:20)
[2017-08-06] MEDS: metroNIDAZOLE IV 500 mg/100 ml 500 MG/100 ML BAG IVPB SCH ×3 (05:26→21:51)
--- NOTE | 2017-08-06 08:35 | CP.PCM.PN ---
Subjective - Date & Time of Evaluation Date of Evaluation: 08/06/17 Time of Evaluation: 08:35 - Subjective Subjective: Patient seen and examined at bedside. Patient denies chest pain, dyspnea, or palpitations. Nurse reports patient had no bowel movement from 11pm -7am. No events noted. Objective - Vital Signs/Intake and Output Vital Signs (last 24 hours): Temp Pulse Resp BP Pulse Ox 98.0 F 78 20 115/70 96 08/05/17 23:55 08/06/17 00:00 08/05/17 23:55 08/05/17 23:55 08/05/17 23:55 Intake and Output: 08/06/17 08/06/17 06:59 18:59 Intake Total 300 Output Total 0 Balance 300 - Medications Medications: Current Medications Acetaminophen (Tylenol 650mg/20.3ml Solution Ud) 650 mg NG Q6 PRN PRN Reason: fever Last Admin: 07/29/17 22:31 Dose: 650 mg Albuterol/Ipratropium (Duoneb 3 Mg/0.5 Mg (3 Ml) Ud) 3 ml INH RQ2 PRN PRN Reason: Cough Last Admin: 08/04/17 21:28 Dose: 3 ml Amiodarone HCl (Cordarone) 200 mg PO DAILY [facility] Last Admin: 08/05/17 10:30 Dose: 200 mg Aspirin (Aspirin Chewable) 81 mg PO DAILY [facility] Last Admin: 08/05/17 10:30 Dose: 81 mg Chlorthalidone (Hygroton) 25 mg PO DAILY [facility] Last Admin: 08/05/17 12:50 Dose: 25 mg Dextrose (Dextrose 50% Inj) 0 ml IV STAT PRN; Protocol PRN Reason: Hypoglycemia Protocol Last Admin: 08/01/17 18:02 Dose: 50 ml Dextrose (Glutose 15) 0 gm PO ONCE PRN; Protocol PRN Reason: Hypoglycemia Protocol Diltiazem HCl (Cardizem) 30 mg PO QID [facility] Last Admin: 08/05/17 21:32 Dose: 30 mg Docusate Sodium (Colace) 100 mg PO DAILY [facility] Last Admin: 08/05/17 10:30 Dose: 100 mg Enoxaparin Sodium (Lovenox) 60 mg SC Q12 [facility] Last Admin: 08/05/17 21:36 Dose: 60 mg Finasteride (Proscar) 5 mg PO DAILY [facility] Last Admin: 08/05/17 10:31 Dose: 5 mg Gabapentin (Neurontin) 300 mg PO TID [facility] Last Admin: 08/05/17 17:29 Dose: 300 mg Glucagon (Glucagen Diagnostic Kit) 0 mg IM STAT PRN; Protocol PRN Reason: Hypoglycemia Protocol Hydralazine HCl (Apresoline) 10 mg IVP Q6H PRN PRN Reason: Systolic Blood Pressure Metronidazole (Flagyl) 500 mg in 100 mls @ 100 mls/hr IVPB Q8 [facility] Last Admin: 08/06/17 05:26 Dose: 100 mls/hr Piperacillin Sod/Tazobactam Sod (Zosyn 4.5 Gm Iv Premix) 4.5 gm in 100 mls @ 200 mls/hr IVPB Q8H [facility] Last Admin: 08/06/17 04:28 Dose: 200 mls/hr Potassium Chloride/Dextrose/Sod Cl (Potassium Chl 20 Meq In D5-1/2ns) 1,000 mls @ 50 mls/hr IV .Q20H [facility] Last Admin: 08/06/17 01:57 Dose: 50 mls/hr Levetiracetam (Keppra) 500 mg PO BID [facility] Last Admin: 08/05/17 17:29 Dose: 500 mg Losartan Potassium (Cozaar) 25 mg PO DAILY [facility] Last Admin: 08/05/17 10:31 Dose: 25 mg Metoprolol Tartrate (Lopressor) 5 mg IVP Q6H PRN PRN Reason: Heart rate Ondansetron HCl (Zofran Inj) 4 mg IVP Q8H PRN PRN Reason: Nausea/Vomiting Last Admin: 07/29/17 11:57 Dose: 4 mg Oxycodone/Acetaminophen (Percocet 5/325 Mg Tab) 1 tab PO Q4H PRN PRN Reason: Pain, severe (8-10) Stop: 08/07/17 09:42 Pantoprazole Sodium (Protonix Ec Tab) 40 mg PO DAILY [facility] Last Admin: 08/05/17 10:32 Dose: 40 mg Polyethylene Glycol (Miralax) 17 gm PO TID [facility] Last Admin: 08/05/17 17:25 Dose: Not Given Rosuvastatin Calcium (Crestor) 10 mg PO HS [facility] Last Admin: 08/05/17 21:32 Dose: 10 mg Tamsulosin HCl (Flomax) 0.4 mg PO DAILY [facility] Last Admin: 08/05/17 10:32 Dose: 0.4 mg Zolpidem Tartrate (Ambien) 5 mg PO HS [facility] Last Admin: 08/06/17 01:46 Dose: Not Given - Labs Labs: 08/05/17 06:30 08/05/17 06:30 PT 15.0 SECONDS (9.7-12.2) H 07/30/17 08:02 INR 1.3 07/30/17 08:02 APTT 34 SECONDS (21-34) D 07/30/17 08:02 - Constitutional Appears: Non-toxic, Chronically Ill - Head Exam Head Exam: ATRAUMATIC, NORMOCEPHALIC - Eye Exam Eye Exam: EOMI, Normal appearance - ENT Exam ENT Exam: Mucous Membranes Dry - Neck Exam Neck Exam: Normal Inspection - Respiratory Exam Respiratory Exam: Clear to Ausculation Bilateral, NORMAL BREATHING PATTERN. absent: Accessory Muscle Use - Cardiovascular Exam Cardiovascular Exam: +S1, +S2. 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 for abdominal pain and constipation. CT of the abdomen and pelvis showed constipation, extending into the small bowel. GI deferred colonoscopy. Cardiology was consulted by surgery for a non-cardiac surgical risk assessment. Patient's is s/p right hemicolectomy and small bowel resection and currently rate controlled, hemodynamically stable, and medically optimized. 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 - Bridging with Lovenox. - Otherwise, continue all medications for rhythm and rate control. - Further recommendations per attending physician, Dr. Brown.
[2017-08-06] MEDS: Enoxaparin 60 mg Syringe SC SCH ×2 (10:29→21:43)
[2017-08-06] MEDS: POLYETHYLENE GLYCOL 3350 17 GM/Dose PACKET PO SCH ×4 (10:29→18:08)
[2017-08-06] MEDS: Pantoprazole 40 mg EC Tab PO SCH (10:30)
--- NOTE | 2017-08-06 15:42 | CP.PCM.PN ---
Subjective - Date & Time of Evaluation Date of Evaluation: 08/06/17 Time of Evaluation: 10:40 - Subjective Subjective: clinically same Objective - Vital Signs/Intake and Output Vital Signs (last 24 hours): Temp Pulse Resp BP Pulse Ox 98.2 F 85 18 126/77 100 08/06/17 07:20 08/06/17 14:00 08/06/17 07:20 08/06/17 14:00 08/06/17 07:20 Intake and Output: 08/06/17 08/06/17 06:59 18:59 Intake Total 300 1040 Output Total 0 Balance 300 1040 - Medications Medications: Current Medications Acetaminophen (Tylenol 650mg/20.3ml Solution Ud) 650 mg NG Q6 PRN PRN Reason: fever Last Admin: 07/29/17 22:31 Dose: 650 mg Albuterol/Ipratropium (Duoneb 3 Mg/0.5 Mg (3 Ml) Ud) 3 ml INH RQ2 PRN PRN Reason: Cough Last Admin: 08/04/17 21:28 Dose: 3 ml Amiodarone HCl (Cordarone) 200 mg PO DAILY [facility] Last Admin: 08/06/17 10:29 Dose: 200 mg Aspirin (Aspirin Chewable) 81 mg PO DAILY [facility] Last Admin: 08/06/17 10:29 Dose: 81 mg Chlorthalidone (Hygroton) 25 mg PO DAILY [facility] Last Admin: 08/06/17 11:11 Dose: 25 mg Dextrose (Dextrose 50% Inj) 0 ml IV STAT PRN; Protocol PRN Reason: Hypoglycemia Protocol Last Admin: 08/01/17 18:02 Dose: 50 ml Dextrose (Glutose 15) 0 gm PO ONCE PRN; Protocol PRN Reason: Hypoglycemia Protocol Diltiazem HCl (Cardizem) 30 mg PO QID [facility] Last Admin: 08/06/17 13:07 Dose: 30 mg Docusate Sodium (Colace) 100 mg PO DAILY [facility] Last Admin: 08/06/17 10:30 Dose: 100 mg Enoxaparin Sodium (Lovenox) 60 mg SC Q12 [facility] Last Admin: 08/06/17 10:29 Dose: 60 mg Finasteride (Proscar) 5 mg PO DAILY [facility] Last Admin: 08/06/17 10:50 Dose: 5 mg Gabapentin (Neurontin) 300 mg PO TID [facility] Last Admin: 08/06/17 13:07 Dose: 300 mg Glucagon (Glucagen Diagnostic Kit) 0 mg IM STAT PRN; Protocol PRN Reason: Hypoglycemia Protocol Hydralazine HCl (Apresoline) 10 mg IVP Q6H PRN PRN Reason: Systolic Blood Pressure Metronidazole (Flagyl) 500 mg in 100 mls @ 100 mls/hr IVPB Q8 [facility] Last Admin: 08/06/17 13:07 Dose: 100 mls/hr Piperacillin Sod/Tazobactam Sod (Zosyn 4.5 Gm Iv Premix) 4.5 gm in 100 mls @ 200 mls/hr IVPB Q8H [facility] Last Admin: 08/06/17 12:30 Dose: 200 mls/hr Potassium Chloride/Dextrose/Sod Cl (Potassium Chl 20 Meq In D5-1/2ns) 1,000 mls @ 50 mls/hr IV .Q20H [facility] Last Admin: 08/06/17 01:57 Dose: 50 mls/hr Levetiracetam (Keppra) 500 mg PO BID [facility] Last Admin: 08/06/17 10:30 Dose: 500 mg Losartan Potassium (Cozaar) 25 mg PO DAILY [facility] Last Admin: 08/06/17 10:29 Dose: 25 mg Metoprolol Tartrate (Lopressor) 5 mg IVP Q6H PRN PRN Reason: Heart rate Ondansetron HCl (Zofran Inj) 4 mg IVP Q8H PRN PRN Reason: Nausea/Vomiting Last Admin: 07/29/17 11:57 Dose: 4 mg Oxycodone/Acetaminophen (Percocet 5/325 Mg Tab) 1 tab PO Q4H PRN PRN Reason: Pain, severe (8-10) Stop: 08/07/17 09:42 Pantoprazole Sodium (Protonix Ec Tab) 40 mg PO DAILY [facility] Last Admin: 08/06/17 10:30 Dose: 40 mg Polyethylene Glycol (Miralax) 17 gm PO TID [facility] Last Admin: 08/06/17 13:51 Dose: Not Given Rosuvastatin Calcium (Crestor) 10 mg PO HS [facility] Last Admin: 08/05/17 21:32 Dose: 10 mg Tamsulosin HCl (Flomax) 0.4 mg PO DAILY [facility] Last Admin: 08/06/17 10:29 Dose: 0.4 mg Warfarin Sodium (Coumadin) 4 mg PO 1800 [facility] Stop: 08/06/17 18:01 Zolpidem Tartrate (Ambien) 5 mg PO HS [facility] Last Admin: 08/06/17 01:46 Dose: Not Given - Labs Labs: 08/05/17 06:30 08/05/17 06:30 PT 15.0 SECONDS (9.7-12.2) H 07/30/17 08:02 INR 1.3 07/30/17 08:02 APTT 34 SECONDS (21-34) D 07/30/17 08:02 - Constitutional Appears: Well - Head Exam Head Exam: ATRAUMATIC, NORMAL INSPECTION, NORMOCEPHALIC - Eye Exam Eye Exam: EOMI, Normal appearance, PERRL Pupil Exam: NORMAL ACCOMODATION, PERRL - ENT Exam ENT Exam: Mucous Membranes Moist, Normal Exam - Neck Exam Neck Exam: Full ROM, Normal Inspection. absent: Lymphadenopathy - Respiratory Exam Respiratory Exam: Decreased Breath Sounds - Cardiovascular Exam Cardiovascular Exam: REGULAR RHYTHM, +S1, +S2 - GI/Abdominal Exam GI & Abdominal Exam: Soft, Diminished Bowel Sounds - Rectal Exam Rectal Exam: Deferred
[2017-08-06 20:22] LABS: INR 1.5; PROTHROMBIN TIME 17.6 SECONDS (9.7-12.2)
[2017-08-07] MEDS: Piperacill/Tazo 4.5gm in Dex 4.5 GM/100 ML BAG IVPB SCH ×3 (03:30→20:30)
[2017-08-07] MEDS: metroNIDAZOLE IV 500 mg/100 ml 500 MG/100 ML BAG IVPB SCH ×3 (05:39→21:47)
[2017-08-07 07:25] LABS: HEMOGLOBIN 8.9 g/dL (12.0-18.0); INR 1.6; MEAN CELL VOLUME 74.8 fL (80.0-94.0); MEAN CORPUSCULAR HEMOGLOBIN 25.3 pg (27.0-31.0); MEAN CORPUSCULAR HGB CONC 33.8 g/dL (33.0-37.0); MEAN PLATELET VOLUME 8.5 fL (7.2-11.7); PROTHROMBIN TIME 18.1 SECONDS (9.7-12.2); RBC 3.51 Mil/uL (4.40-5.90); RED CELL DISTRIBUTION WIDTH 18.8 % (11.5-14.5); WHITE BLOOD COUNT 5.8 K/uL (4.8-10.8)
[2017-08-07 07:39] LABS: BLOOD UREA NITROGEN 7 mg/dL (9-20); CALCIUM 7.6 mg/dl (8.6-10.4); GFR AFRICAN-AMERICAN > 60; GFR NON-AFRICAN AMERICAN > 60
[2017-08-07] MEDS: Pantoprazole 40 mg EC Tab PO SCH (10:46)
[2017-08-07] MEDS: Enoxaparin 60 mg Syringe SC SCH ×2 (10:46→21:48)
[2017-08-07] MEDS ORDERED: Potassium Chloride 20 mEq ER Tab PO ONE (13:00)
--- NOTE | 2017-08-07 17:25 | CP.PCM.PN ---
Subjective - Date & Time of Evaluation Date of Evaluation: 08/07/17 Time of Evaluation: 09:50 - Subjective Subjective: clinically same Objective - Vital Signs/Intake and Output Vital Signs (last 24 hours): Temp Pulse Resp BP Pulse Ox 98.3 F 84 20 123/76 100 08/07/17 15:18 08/07/17 15:18 08/07/17 15:18 08/07/17 15:18 08/07/17 15:18 Intake and Output: 08/07/17 08/07/17 06:59 18:59 Intake Total 1380 500 Output Total 1250 Balance 130 500 - Medications Medications: Current Medications Acetaminophen (Tylenol 650mg/20.3ml Solution Ud) 650 mg NG Q6 PRN PRN Reason: fever Last Admin: 07/29/17 22:31 Dose: 650 mg Albuterol/Ipratropium (Duoneb 3 Mg/0.5 Mg (3 Ml) Ud) 3 ml INH RQ2 PRN PRN Reason: Cough Last Admin: 08/04/17 21:28 Dose: 3 ml Amiodarone HCl (Cordarone) 200 mg PO DAILY [facility] Last Admin: 08/07/17 10:46 Dose: 200 mg Aspirin (Aspirin Chewable) 81 mg PO DAILY [facility] Last Admin: 08/07/17 10:45 Dose: 81 mg Chlorthalidone (Hygroton) 25 mg PO DAILY [facility] Last Admin: 08/07/17 10:45 Dose: 25 mg Dextrose (Dextrose 50% Inj) 0 ml IV STAT PRN; Protocol PRN Reason: Hypoglycemia Protocol Last Admin: 08/01/17 18:02 Dose: 50 ml Dextrose (Glutose 15) 0 gm PO ONCE PRN; Protocol PRN Reason: Hypoglycemia Protocol Diltiazem HCl (Cardizem) 30 mg PO QID [facility] Last Admin: 08/07/17 13:16 Dose: 30 mg Enoxaparin Sodium (Lovenox) 60 mg SC Q12 [facility] Last Admin: 08/07/17 10:46 Dose: 60 mg Finasteride (Proscar) 5 mg PO DAILY [facility] Last Admin: 08/07/17 10:47 Dose: 5 mg Gabapentin (Neurontin) 300 mg PO TID [facility] Last Admin: 08/07/17 13:16 Dose: 300 mg Glucagon (Glucagen Diagnostic Kit) 0 mg IM STAT PRN; Protocol PRN Reason: Hypoglycemia Protocol Hydralazine HCl (Apresoline) 10 mg IVP Q6H PRN PRN Reason: Systolic Blood Pressure Metronidazole (Flagyl) 500 mg in 100 mls @ 100 mls/hr IVPB Q8 [facility] Last Admin: 08/07/17 13:16 Dose: 100 mls/hr Piperacillin Sod/Tazobactam Sod (Zosyn 4.5 Gm Iv Premix) 4.5 gm in 100 mls @ 200 mls/hr IVPB Q8H [facility] Last Admin: 08/07/17 11:00 Dose: 200 mls/hr Levetiracetam (Keppra) 500 mg PO BID [facility] Last Admin: 08/07/17 10:46 Dose: 500 mg Losartan Potassium (Cozaar) 25 mg PO DAILY [facility] Last Admin: 08/07/17 10:45 Dose: 25 mg Metoprolol Tartrate (Lopressor) 5 mg IVP Q6H PRN PRN Reason: Heart rate Ondansetron HCl (Zofran Inj) 4 mg IVP Q8H PRN PRN Reason: Nausea/Vomiting Last Admin: 07/29/17 11:57 Dose: 4 mg Pantoprazole Sodium (Protonix Ec Tab) 40 mg PO DAILY [facility] Last Admin: 08/07/17 10:46 Dose: 40 mg Rosuvastatin Calcium (Crestor) 10 mg PO [facility] Last Admin: 08/06/17 21:43 Dose: 10 mg Tamsulosin HCl (Flomax) 0.4 mg PO DAILY [facility] Last Admin: 08/07/17 10:45 Dose: 0.4 mg Zolpidem Tartrate (Ambien) 5 mg PO [facility] Last Admin: 08/06/17 21:43 Dose: 5 mg - Labs Labs: 08/07/17 07:13 08/07/17 07:13 PT 18.1 SECONDS (9.7-12.2) H 08/07/17 07:13 INR 1.6 08/07/17 07:13 APTT 34 SECONDS (21-34) D 07/30/17 08:02 - Constitutional Appears: Well - Head Exam Head Exam: ATRAUMATIC, NORMAL INSPECTION, NORMOCEPHALIC - Eye Exam Eye Exam: EOMI, Normal appearance, PERRL Pupil Exam: NORMAL ACCOMODATION, PERRL - ENT Exam ENT Exam: Mucous Membranes Moist, Normal Exam - Neck Exam Neck Exam: Full ROM, Normal Inspection. absent: Lymphadenopathy - Respiratory Exam Respiratory Exam: Decreased Breath Sounds - Cardiovascular Exam Cardiovascular Exam: REGULAR RHYTHM, +S1, +S2 - GI/Abdominal Exam GI & Abdominal Exam: Soft, Diminished Bowel Sounds - Rectal Exam Rectal Exam: Deferred
[2017-08-07] MEDS ORDERED: Potassium Chloride 20 mEq ER Tab PO STA (19:45)
--- NOTE | 2017-08-07 22:34 | CP.PCM.PN ---
Subjective - Date & Time of Evaluation Date of Evaluation: 08/07/17 Time of Evaluation: 22:34 - Subjective Subjective: AFEBRILE, OFFERS NO NEW COMPLAINTS. LABS REVIEWED. Objective - Vital Signs/Intake and Output Vital Signs (last 24 hours): Temp Pulse Resp BP Pulse Ox 98.3 F 84 20 123/76 100 08/07/17 15:18 08/07/17 15:18 08/07/17 15:18 08/07/17 15:18 08/07/17 15:18 Intake and Output: 08/07/17 08/08/17 18:59 06:59 Intake Total 500 450 Output Total 3 Balance 500 447 - Medications Medications: Current Medications Acetaminophen (Tylenol 650mg/20.3ml Solution Ud) 650 mg NG Q6 PRN PRN Reason: fever Last Admin: 07/29/17 22:31 Dose: 650 mg Albuterol/Ipratropium (Duoneb 3 Mg/0.5 Mg (3 Ml) Ud) 3 ml INH RQ2 PRN PRN Reason: Cough Last Admin: 08/04/17 21:28 Dose: 3 ml Amiodarone HCl (Cordarone) 200 mg PO DAILY [facility] Last Admin: 08/07/17 10:46 Dose: 200 mg Aspirin (Aspirin Chewable) 81 mg PO DAILY [facility] Last Admin: 08/07/17 10:45 Dose: 81 mg Chlorthalidone (Hygroton) 25 mg PO DAILY [facility] Last Admin: 08/07/17 10:45 Dose: 25 mg Dextrose (Dextrose 50% Inj) 0 ml IV STAT PRN; Protocol PRN Reason: Hypoglycemia Protocol Last Admin: 08/01/17 18:02 Dose: 50 ml Dextrose (Glutose 15) 0 gm PO ONCE PRN; Protocol PRN Reason: Hypoglycemia Protocol Diltiazem HCl (Cardizem) 30 mg PO QID [facility] Last Admin: 08/07/17 21:49 Dose: 30 mg Enoxaparin Sodium (Lovenox) 60 mg SC Q12 [facility] Last Admin: 08/07/17 21:48 Dose: 60 mg Finasteride (Proscar) 5 mg PO DAILY [facility] Last Admin: 08/07/17 10:47 Dose: 5 mg Gabapentin (Neurontin) 300 mg PO TID [facility] Last Admin: 08/07/17 18:14 Dose: 300 mg Glucagon (Glucagen Diagnostic Kit) 0 mg IM STAT PRN; Protocol PRN Reason: Hypoglycemia Protocol Hydralazine HCl (Apresoline) 10 mg IVP Q6H PRN PRN Reason: Systolic Blood Pressure Metronidazole (Flagyl) 500 mg in 100 mls @ 100 mls/hr IVPB Q8 [facility] Last Admin: 08/07/17 21:47 Dose: 100 mls/hr Piperacillin Sod/Tazobactam Sod (Zosyn 4.5 Gm Iv Premix) 4.5 gm in 100 mls @ 200 mls/hr IVPB Q8H [facility] Last Admin: 08/07/17 20:30 Dose: 200 mls/hr Levetiracetam (Keppra) 500 mg PO BID [facility] Last Admin: 08/07/17 18:14 Dose: 500 mg Losartan Potassium (Cozaar) 25 mg PO DAILY [facility] Last Admin: 08/07/17 10:45 Dose: 25 mg Metoprolol Tartrate (Lopressor) 5 mg IVP Q6H PRN PRN Reason: Heart rate Ondansetron HCl (Zofran Inj) 4 mg IVP Q8H PRN PRN Reason: Nausea/Vomiting Last Admin: 07/29/17 11:57 Dose: 4 mg Pantoprazole Sodium (Protonix Ec Tab) 40 mg PO DAILY [facility] Last Admin: 08/07/17 10:46 Dose: 40 mg Rosuvastatin Calcium (Crestor) 10 mg PO [facility] Last Admin: 08/07/17 21:48 Dose: 10 mg Tamsulosin HCl (Flomax) 0.4 mg PO DAILY [facility] Last Admin: 08/07/17 10:45 Dose: 0.4 mg Zolpidem Tartrate (Ambien) 5 mg PO [facility] Last Admin: 08/07/17 21:48 Dose: 5 mg - Labs Labs: 08/07/17 07:13 08/07/17 07:13 PT 18.1 SECONDS (9.7-12.2) H 08/07/17 07:13 INR 1.6 08/07/17 07:13 APTT 34 SECONDS (21-34) D 07/30/17 08:02 - Constitutional Appears: No Acute Distress - Head Exam Head Exam: NORMAL INSPECTION - Eye Exam Eye Exam: EOMI, PERRL - ENT Exam ENT Exam: Normal Oropharynx - Neck Exam Neck Exam: Normal Inspection - Respiratory Exam Respiratory Exam: Clear to Ausculation Bilateral - Cardiovascular Exam Cardiovascular Exam: REGULAR RHYTHM, +S1, +S2 - GI/Abdominal Exam GI & Abdominal Exam: Soft, Hypoactive Bowel Sounds (POSTOPERATIVE PERIOD). absent: Tenderness - Extremities Exam Additional comments: B/L ABOVE-KNEE AMPUTATION. - Neurological Exam Neurological Exam: Awake - Psychiatric Exam Psychiatric exam: Normal Mood - Skin Skin Exam: Normal Color, Warm Assessment and Plan - Assessment and Plan (Free Text) Assessment: IMPRESSION; - S/P RIGHT HEMICOLECTOMY/SMALL BOWEL RESECTION WITH PRIMARY ANASTOMOSIS.07/31/17 -AND RESECTION CECAL MASS. -aTRIAL FIBRILLATION. -PVD S/P B/L AKA. -HX OF MULTIPLE CVAS. PLAN. POST OPTIVE DAY # 7 DC iv ZOSYN 4.5GM EVERY 8 HOURLY 07/29/17 7 DAYS X 1 DAY MORE DC iv FLAGYL 500 EVERY 8 HOURLY 07/29/ X 1 DAY MORE POST -OPTIVE CARE PER SURGERY. F/U BX /PATH REPORT.-P WILL SEE PRN NEEDED.
[2017-08-08 09:07] LABS: INR 1.6; PROTHROMBIN TIME 18.1 SECONDS (9.7-12.2)
[2017-08-08] MEDS: Enoxaparin 60 mg Syringe SC SCH ×2 (09:17→22:38)
[2017-08-08] MEDS: Pantoprazole 40 mg EC Tab PO SCH (09:17)
--- NOTE | 2017-08-08 19:31 | CP.PCM.PN ---
Subjective - Date & Time of Evaluation Date of Evaluation: 08/08/17 Time of Evaluation: 09:40 - Subjective Subjective: clinically same Objective - Vital Signs/Intake and Output Vital Signs (last 24 hours): Temp Pulse Resp BP Pulse Ox 98.3 F 79 22 124/76 100 08/08/17 15:00 08/08/17 15:00 08/08/17 15:00 08/08/17 15:00 08/08/17 15:00 Intake and Output: 08/08/17 08/09/17 18:59 06:59 Intake Total 300 Output Total 1500 Balance -1200 - Medications Medications: Current Medications Acetaminophen (Tylenol 650mg/20.3ml Solution Ud) 650 mg NG Q6 PRN PRN Reason: fever Last Admin: 07/29/17 22:31 Dose: 650 mg Albuterol/Ipratropium (Duoneb 3 Mg/0.5 Mg (3 Ml) Ud) 3 ml INH RQ2 PRN PRN Reason: Cough Last Admin: 08/04/17 21:28 Dose: 3 ml Amiodarone HCl (Cordarone) 200 mg PO DAILY [facility] Last Admin: 08/08/17 09:17 Dose: 200 mg Aspirin (Aspirin Chewable) 81 mg PO DAILY [facility] Last Admin: 08/08/17 09:17 Dose: 81 mg Chlorthalidone (Hygroton) 25 mg PO DAILY [facility] Last Admin: 08/08/17 09:17 Dose: 25 mg Dextrose (Dextrose 50% Inj) 0 ml IV STAT PRN; Protocol PRN Reason: Hypoglycemia Protocol Last Admin: 08/01/17 18:02 Dose: 50 ml Dextrose (Glutose 15) 0 gm PO ONCE PRN; Protocol PRN Reason: Hypoglycemia Protocol Diltiazem HCl (Cardizem) 30 mg PO QID [facility] Last Admin: 08/08/17 18:19 Dose: 30 mg Enoxaparin Sodium (Lovenox) 60 mg SC Q12 [facility] Last Admin: 08/08/17 09:17 Dose: 60 mg Finasteride (Proscar) 5 mg PO DAILY [facility] Last Admin: 08/08/17 09:17 Dose: 5 mg Gabapentin (Neurontin) 300 mg PO TID [facility] Last Admin: 08/08/17 18:19 Dose: 300 mg Glucagon (Glucagen Diagnostic Kit) 0 mg IM STAT PRN; Protocol PRN Reason: Hypoglycemia Protocol Hydralazine HCl (Apresoline) 10 mg IVP Q6H PRN PRN Reason: Systolic Blood Pressure Levetiracetam (Keppra) 500 mg PO BID [facility] Last Admin: 08/08/17 18:19 Dose: 500 mg Losartan Potassium (Cozaar) 25 mg PO DAILY [facility] Last Admin: 08/08/17 09:19 Dose: 25 mg Metoprolol Tartrate (Lopressor) 5 mg IVP Q6H PRN PRN Reason: Heart rate Ondansetron HCl (Zofran Inj) 4 mg IVP Q8H PRN PRN Reason: Nausea/Vomiting Last Admin: 08/08/17 01:13 Dose: 4 mg Pantoprazole Sodium (Protonix Ec Tab) 40 mg PO DAILY [facility] Last Admin: 08/08/17 09:17 Dose: 40 mg Rosuvastatin Calcium (Crestor) 10 mg PO HS [facility] Last Admin: 08/07/17 21:48 Dose: 10 mg Tamsulosin HCl (Flomax) 0.4 mg PO DAILY [facility] Last Admin: 08/08/17 09:17 Dose: 0.4 mg Warfarin Sodium (Coumadin) 5 mg PO 1800 [facility] Stop: 08/09/17 18:01 Zolpidem Tartrate (Ambien) 5 mg PO HS [facility] Last Admin: 08/07/17 21:48 Dose: 5 mg - Labs Labs: 08/07/17 07:13 08/07/17 07:13 PT 18.1 SECONDS (9.7-12.2) H 08/08/17 08:53 INR 1.6 08/08/17 08:53 APTT 34 SECONDS (21-34) D 07/30/17 08:02 Assessment and Plan - Assessment and Plan (Free Text) Plan: Continue zolpidem Continue Coumadin Continue other medications Follow-up with the provider contracting consultant Follow-up with ID Follow-up with the surgery Possible discharge Follow-up with the surgery biopsy
[2017-08-09] MEDS: Albuterol-Ipratrop 3 mg / 0.5 (3 ml) UD INH PRN ×2 (07:50→13:46)
[2017-08-09 07:51] LABS: INR 1.9; PROTHROMBIN TIME 21.4 SECONDS (9.7-12.2)
[2017-08-09] MEDS: Pantoprazole 40 mg EC Tab PO SCH (09:15)
[2017-08-09] MEDS: Enoxaparin 60 mg Syringe SC SCH (09:15)
[2017-08-09 14:18] LABS: BASO % 0.5 % (0.0-2.0); EOS % 0.5 % (0.0-4.0); HEMOGLOBIN 9.4 g/dL (12.0-18.0); LYMPH # 1.9 K/uL (1.0-4.3); MEAN CORPUSCULAR HEMOGLOBIN 25.3 pg (27.0-31.0); MEAN CORPUSCULAR HGB CONC 33.7 g/dL (33.0-37.0); MEAN PLATELET VOLUME 8.3 fL (7.2-11.7); MONO # 0.5 K/uL (0.0-0.8); MONO % 5.8 % (0.0-10.0); NEUT % 71.2 % (50.0-75.0); RBC 3.73 Mil/uL (4.40-5.90); RED CELL DISTRIBUTION WIDTH 18.1 % (11.5-14.5); WHITE BLOOD COUNT 8.5 K/uL (4.8-10.8)
[2017-08-09 14:37] LABS: ALB/GLOB RATIO 0.9 (1.0-2.1); ALBUMIN 2.7 g/dL (3.5-5.0); ALT/SGPT 23 U/L (21-72); AST/SGOT 14 U/L (17-59); BLOOD UREA NITROGEN 8 mg/dL (9-20); CALCIUM 8.3 mg/dl (8.6-10.4); GFR AFRICAN-AMERICAN > 60; GFR NON-AFRICAN AMERICAN > 60
--- NOTE | 2017-08-09 16:00 | CP.PCM.PN ---
Subjective - Date & Time of Evaluation Date of Evaluation: 08/09/17 Time of Evaluation: 10:00 - Subjective Subjective: clinically same Objective - Vital Signs/Intake and Output Vital Signs (last 24 hours): Temp Pulse Resp BP Pulse Ox 98.8 F 75 20 119/70 99 08/08/17 23:35 08/08/17 23:35 08/08/17 23:35 08/08/17 23:35 08/08/17 23:35 Intake and Output: 08/09/17 08/09/17 06:59 18:59 Intake Total 500 Output Total 1200 500 Balance -700 -500 - Medications Medications: Current Medications Acetaminophen (Tylenol 650mg/20.3ml Solution Ud) 650 mg NG Q6 PRN PRN Reason: fever Last Admin: 07/29/17 22:31 Dose: 650 mg Albuterol/Ipratropium (Duoneb 3 Mg/0.5 Mg (3 Ml) Ud) 3 ml INH RQ2 PRN PRN Reason: Cough Last Admin: 08/09/17 13:46 Dose: 3 ml Amiodarone HCl (Cordarone) 200 mg PO DAILY [facility] Last Admin: 08/09/17 09:15 Dose: 200 mg Aspirin (Aspirin Chewable) 81 mg PO DAILY [facility] Last Admin: 08/09/17 09:15 Dose: 81 mg Chlorthalidone (Hygroton) 25 mg PO DAILY [facility] Last Admin: 08/09/17 09:15 Dose: 25 mg Dextrose (Dextrose 50% Inj) 0 ml IV STAT PRN; Protocol PRN Reason: Hypoglycemia Protocol Last Admin: 08/01/17 18:02 Dose: 50 ml Dextrose (Glutose 15) 0 gm PO ONCE PRN; Protocol PRN Reason: Hypoglycemia Protocol Diltiazem HCl (Cardizem) 30 mg PO QID [facility] Last Admin: 08/09/17 14:19 Dose: 30 mg Finasteride (Proscar) 5 mg PO DAILY [facility] Last Admin: 08/09/17 09:25 Dose: 5 mg Gabapentin (Neurontin) 300 mg PO TID [facility] Last Admin: 08/09/17 14:19 Dose: 300 mg Glucagon (Glucagen Diagnostic Kit) 0 mg IM STAT PRN; Protocol PRN Reason: Hypoglycemia Protocol Hydralazine HCl (Apresoline) 10 mg IVP Q6H PRN PRN Reason: Systolic Blood Pressure Levetiracetam (Keppra) 500 mg PO BID [facility] Last Admin: 08/09/17 09:15 Dose: 500 mg Losartan Potassium (Cozaar) 25 mg PO DAILY [facility] Last Admin: 08/09/17 09:15 Dose: 25 mg Metoprolol Tartrate (Lopressor) 5 mg IVP Q6H PRN PRN Reason: Heart rate Ondansetron HCl (Zofran Inj) 4 mg IVP Q8H PRN PRN Reason: Nausea/Vomiting Last Admin: 08/08/17 01:13 Dose: 4 mg Pantoprazole Sodium (Protonix Ec Tab) 40 mg PO DAILY [facility] Last Admin: 08/09/17 09:15 Dose: 40 mg Rosuvastatin Calcium (Crestor) 10 mg PO [facility] Last Admin: 08/08/17 22:37 Dose: 10 mg Tamsulosin HCl (Flomax) 0.4 mg PO DAILY [facility] Last Admin: 08/09/17 09:15 Dose: 0.4 mg Zolpidem Tartrate (Ambien) 5 mg PO [facility] Last Admin: 08/08/17 22:38 Dose: 5 mg - Labs Labs: 08/09/17 14:08 08/09/17 14:08 PT 21.4 SECONDS (9.7-12.2) H 08/09/17 07:37 INR 1.9 08/09/17 07:37 APTT 34 SECONDS (21-34) D 07/30/17 08:02 - Constitutional Appears: Well - Head Exam Head Exam: ATRAUMATIC, NORMAL INSPECTION, NORMOCEPHALIC - Eye Exam Eye Exam: EOMI, Normal appearance, PERRL Pupil Exam: NORMAL ACCOMODATION, PERRL - ENT Exam ENT Exam: Mucous Membranes Moist, Normal Exam - Neck Exam Neck Exam: Full ROM, Normal Inspection. absent: Lymphadenopathy - Respiratory Exam Respiratory Exam: Decreased Breath Sounds - Cardiovascular Exam Cardiovascular Exam: REGULAR RHYTHM, +S1, +S2 - GI/Abdominal Exam GI & Abdominal Exam: Soft, Diminished Bowel Sounds - Rectal Exam Rectal Exam: Deferred Assessment and Plan - Assessment and Plan (Free Text) Plan: GI DVT prophylaxis Discussed with the daughter at length today Discharge planning Patient is off the antibiotic DuoNeb Continue amiodarone Continue gabapentin Continue Zofran as needed Discharge to [facility] Discussed with the daughter who wants to keep the patient for 4 weeks for the rehab Biopsy report is pending Will resume the anticoagulation if it is okay with the surgeon
--- NOTE | 2017-08-09 16:46 | CP.PCM.PN ---
Subjective - Date & Time of Evaluation Date of Evaluation: 08/09/17 Time of Evaluation: 16:46 - Subjective Subjective: AFEBRILE, OFFERS NO COMPLAINTS. POST OPT. LABS REVIEWED. OK OFF ANTIBIOTICS. F/U PRN Objective - Vital Signs/Intake and Output Vital Signs (last 24 hours): Temp Pulse Resp BP Pulse Ox 98.8 F 75 20 119/70 99 08/08/17 23:35 08/08/17 23:35 08/08/17 23:35 08/08/17 23:35 08/08/17 23:35 Intake and Output: 08/09/17 08/09/17 06:59 18:59 Intake Total 500 400 Output Total 1200 500 Balance -700 -100 - Medications Medications: Current Medications Acetaminophen (Tylenol 650mg/20.3ml Solution Ud) 650 mg NG Q6 PRN PRN Reason: fever Last Admin: 07/29/17 22:31 Dose: 650 mg Albuterol/Ipratropium (Duoneb 3 Mg/0.5 Mg (3 Ml) Ud) 3 ml INH RQ2 PRN PRN Reason: Cough Last Admin: 08/09/17 13:46 Dose: 3 ml Amiodarone HCl (Cordarone) 200 mg PO DAILY [facility] Last Admin: 08/09/17 09:15 Dose: 200 mg Aspirin (Aspirin Chewable) 81 mg PO DAILY [facility] Last Admin: 08/09/17 09:15 Dose: 81 mg Chlorthalidone (Hygroton) 25 mg PO DAILY [facility] Last Admin: 08/09/17 09:15 Dose: 25 mg Dextrose (Dextrose 50% Inj) 0 ml IV STAT PRN; Protocol PRN Reason: Hypoglycemia Protocol Last Admin: 08/01/17 18:02 Dose: 50 ml Dextrose (Glutose 15) 0 gm PO ONCE PRN; Protocol PRN Reason: Hypoglycemia Protocol Diltiazem HCl (Cardizem) 30 mg PO QID [facility] Last Admin: 08/09/17 14:19 Dose: 30 mg Finasteride (Proscar) 5 mg PO DAILY [facility] Last Admin: 08/09/17 09:25 Dose: 5 mg Gabapentin (Neurontin) 300 mg PO TID [facility] Last Admin: 08/09/17 14:19 Dose: 300 mg Glucagon (Glucagen Diagnostic Kit) 0 mg IM STAT PRN; Protocol PRN Reason: Hypoglycemia Protocol Hydralazine HCl (Apresoline) 10 mg IVP Q6H PRN PRN Reason: Systolic Blood Pressure Levetiracetam (Keppra) 500 mg PO BID [facility] Last Admin: 08/09/17 09:15 Dose: 500 mg Losartan Potassium (Cozaar) 25 mg PO DAILY [facility] Last Admin: 08/09/17 09:15 Dose: 25 mg Metoprolol Tartrate (Lopressor) 5 mg IVP Q6H PRN PRN Reason: Heart rate Ondansetron HCl (Zofran Inj) 4 mg IVP Q8H PRN PRN Reason: Nausea/Vomiting Last Admin: 08/08/17 01:13 Dose: 4 mg Pantoprazole Sodium (Protonix Ec Tab) 40 mg PO DAILY [facility] Last Admin: 08/09/17 09:15 Dose: 40 mg Rosuvastatin Calcium (Crestor) 10 mg PO [facility] Last Admin: 08/08/17 22:37 Dose: 10 mg Tamsulosin HCl (Flomax) 0.4 mg PO DAILY [facility] Last Admin: 08/09/17 09:15 Dose: 0.4 mg Zolpidem Tartrate (Ambien) 5 mg PO [facility] Last Admin: 08/08/17 22:38 Dose: 5 mg - Labs Labs: 08/09/17 14:08 08/09/17 14:08 PT 21.4 SECONDS (9.7-12.2) H 08/09/17 07:37 INR 1.9 08/09/17 07:37 APTT 34 SECONDS (21-34) D 07/30/17 08:02 - Constitutional Appears: No Acute Distress - Head Exam Head Exam: NORMAL INSPECTION - Eye Exam Eye Exam: EOMI, PERRL - ENT Exam ENT Exam: Normal Oropharynx - Neck Exam Neck Exam: Normal Inspection - Respiratory Exam Respiratory Exam: Clear to Ausculation Bilateral - Cardiovascular Exam Cardiovascular Exam: REGULAR RHYTHM, +S1, +S2 - GI/Abdominal Exam GI & Abdominal Exam: Soft, Normal Bowel Sounds (POST OPERATIVE WOUND HEALING .) - Extremities Exam Additional comments: B/L AKA. - Neurological Exam Neurological Exam: Awake - Psychiatric Exam Psychiatric exam: Normal Mood - Skin Skin Exam: Normal Color, Warm Assessment and Plan - Assessment and Plan (Free Text) Assessment: IMPRESSION; - S/P RIGHT HEMICOLECTOMY/SMALL BOWEL RESECTION WITH PRIMARY ANASTOMOSIS.07/31/17 -AND RESECTION CECAL MASS. -aTRIAL FIBRILLATION. -PVD S/P B/L AKA. -HX OF MULTIPLE CVAS. PLAN. POST OPTIVE DAY # 11 OFF ABX POST -OPTIVE CARE PER SURGERY. F/U BX /PATH REPORT.-P WILL SEE PRN NEEDED.
[2017-08-10 07:23] LABS: INR 1.8; PROTHROMBIN TIME 21.1 SECONDS (9.7-12.2)
[2017-08-10 07:32] LABS: BASO % 0.3 % (0.0-2.0); EOS # 0.1 K/uL (0.0-0.7); EOS % 1.6 % (0.0-4.0); HEMOGLOBIN 8.9 g/dL (12.0-18.0); LYMPH # 0.9 K/uL (1.0-4.3); LYMPH % 15.6 % (20.0-40.0); MEAN CELL VOLUME 74.6 fL (80.0-94.0); MEAN CORPUSCULAR HEMOGLOBIN 25.8 pg (27.0-31.0); MEAN CORPUSCULAR HGB CONC 34.5 g/dL (33.0-37.0); MEAN PLATELET VOLUME 8.4 fL (7.2-11.7); MONO # 0.4 K/uL (0.0-0.8); MONO % 7.2 % (0.0-10.0); NEUT # 4.6 K/uL (1.8-7.0); NEUT % 75.3 % (50.0-75.0); RBC 3.45 Mil/uL (4.40-5.90); RED CELL DISTRIBUTION WIDTH 18.4 % (11.5-14.5); WHITE BLOOD COUNT 6.1 K/uL (4.8-10.8)
[2017-08-10 07:47] LABS: ALB/GLOB RATIO 0.8 (1.0-2.1); ALBUMIN 2.5 g/dL (3.5-5.0); ALT/SGPT 28 U/L (21-72); AST/SGOT 14 U/L (17-59); BLOOD UREA NITROGEN 11 mg/dL (9-20); CALCIUM 8.2 mg/dl (8.6-10.4); GFR AFRICAN-AMERICAN > 60; GFR NON-AFRICAN AMERICAN > 60
--- NOTE | 2017-08-10 08:55 | CP.PCM.PN ---
Subjective - Date & Time of Evaluation Date of Evaluation: 08/10/17 Time of Evaluation: 07:30 - Subjective Subjective: Cardiology Progress Note for Dr. Brown Patient seen and examined at bedside. Patient denies any chest pain, dyspnea, palpitations, or abnormal level of fatigue. Of note, over the weekend the patient was reported to have a darker colored stool with an associated one point drop in hgb. Therefore, patient's lovenox and Warfarin were held on Thursday. Objective - Vital Signs/Intake and Output Vital Signs (last 24 hours): Temp Pulse Resp BP Pulse Ox 97.6 F 85 18 105/67 97 08/10/17 07:20 08/10/17 07:20 08/10/17 07:20 08/10/17 07:20 08/10/17 07:20 Intake and Output: 08/10/17 08/10/17 06:59 18:59 Intake Total 320 Balance 320 - Medications Medications: Current Medications Acetaminophen (Tylenol 650mg/20.3ml Solution Ud) 650 mg NG Q6 PRN PRN Reason: fever Last Admin: 07/29/17 22:31 Dose: 650 mg Albuterol/Ipratropium (Duoneb 3 Mg/0.5 Mg (3 Ml) Ud) 3 ml INH RQ2 PRN PRN Reason: Cough Last Admin: 08/09/17 13:46 Dose: 3 ml Amiodarone HCl (Cordarone) 200 mg PO DAILY [facility] Last Admin: 08/09/17 09:15 Dose: 200 mg Aspirin (Aspirin Chewable) 81 mg PO DAILY [facility] Last Admin: 08/09/17 09:15 Dose: 81 mg Chlorthalidone (Hygroton) 25 mg PO DAILY [facility] Last Admin: 08/09/17 09:15 Dose: 25 mg Dextrose (Dextrose 50% Inj) 0 ml IV STAT PRN; Protocol PRN Reason: Hypoglycemia Protocol Last Admin: 08/01/17 18:02 Dose: 50 ml Dextrose (Glutose 15) 0 gm PO ONCE PRN; Protocol PRN Reason: Hypoglycemia Protocol Diltiazem HCl (Cardizem) 30 mg PO QID [facility] Last Admin: 08/09/17 21:56 Dose: Not Given Finasteride (Proscar) 5 mg PO DAILY [facility] Last Admin: 08/09/17 09:25 Dose: 5 mg Gabapentin (Neurontin) 300 mg PO TID [facility] Last Admin: 08/09/17 18:22 Dose: 300 mg Glucagon (Glucagen Diagnostic Kit) 0 mg IM STAT PRN; Protocol PRN Reason: Hypoglycemia Protocol Hydralazine HCl (Apresoline) 10 mg IVP Q6H PRN PRN Reason: Systolic Blood Pressure Levetiracetam (Keppra) 500 mg PO BID [facility] Last Admin: 08/09/17 18:08 Dose: 500 mg Losartan Potassium (Cozaar) 25 mg PO DAILY [facility] Last Admin: 08/09/17 09:15 Dose: 25 mg Metoprolol Tartrate (Lopressor) 5 mg IVP Q6H PRN PRN Reason: Heart rate Ondansetron HCl (Zofran Inj) 4 mg IVP Q8H PRN PRN Reason: Nausea/Vomiting Last Admin: 08/08/17 01:13 Dose: 4 mg Pantoprazole Sodium (Protonix Ec Tab) 40 mg PO DAILY [facility] Last Admin: 08/09/17 09:15 Dose: 40 mg Potassium Chloride (K-Dur 20 Meq Er Tab) 20 meq PO STAT [facility] Stop: 08/10/17 08:51 Rosuvastatin Calcium (Crestor) 10 mg PO HS [facility] Last Admin: 08/09/17 21:56 Dose: 10 mg Tamsulosin HCl (Flomax) 0.4 mg PO DAILY [facility] Last Admin: 08/09/17 09:15 Dose: 0.4 mg Warfarin Sodium (Coumadin) 5 mg PO 1800 [facility] Stop: 08/10/17 18:01 Zolpidem Tartrate (Ambien) 5 mg PO [facility] Last Admin: 08/09/17 21:56 Dose: 5 mg - Labs Labs: 08/10/17 07:08 08/10/17 07:08 PT 21.1 SECONDS (9.7-12.2) H 08/10/17 07:08 INR 1.8 08/10/17 07:08 APTT 34 SECONDS (21-34) D 07/30/17 08:02 - Constitutional Appears: Non-toxic, No Acute Distress - Head Exam Head Exam: ATRAUMATIC, NORMOCEPHALIC - Eye Exam Eye Exam: EOMI, Normal appearance - ENT Exam ENT Exam: Mucous Membranes Moist - Respiratory Exam Respiratory Exam: Clear to Ausculation Bilateral, NORMAL BREATHING PATTERN. absent: Accessory Muscle Use - Cardiovascular Exam Cardiovascular Exam: +S1, +S2. 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 CT of the abdomen and pelvis showed severe constipation with fecalization of the small bowel contents with segmental dilation of loop of small bowel in the left abdomen, and a large , 5.5. cm polypoid soft tissue mass in hepatic flexure of the colon. Cardiology was consulted by surgery for a non-cardiac surgical risk assessment. Patient underwent right hemicolectomy and small bowel resection without any complications and is being restarted on oral anticoagulation. Plan: - Warfarin 5 mg PO tonight with INR in the morning. Goal of INR between 2-3 for treatment of aortic arch atheroma and for thromboprophylaxis. - Otherwise, continue all medications for rhythm and rate control. - Ferric gluconate to be adminstered 125 mg IVPB daily given the patient's likely iron deficiency anemia and reactive thrombocytosis. Will monitor for any signs of adverse reaction. Case reviewed and discussed with attending physician, Dr. Brown.
[2017-08-10] MEDS ORDERED: Potassium Chloride 20 mEq ER Tab PO STA ×2 (09:04→22:43)
[2017-08-10] MEDS: Pantoprazole 40 mg EC Tab PO SCH (09:30)
[2017-08-10] MEDS ORDERED: Ferric Sodium Gluconat Complex 62.5 mg/5 ml Vial IVPB SCH (10:00)
[2017-08-10] MEDS: Ferric Sodium Gluconat Complex 125 MG in Sodium Chloride 0.9% 100 ML IVPB SCH (11:26)
[2017-08-10 18:53] VITALS: RESP 20
--- NOTE | 2017-08-10 19:38 | CP.PCM.PN ---
Subjective - Date & Time of Evaluation Date of Evaluation: 08/10/17 Time of Evaluation: 12:50 Objective - Vital Signs/Intake and Output Vital Signs (last 24 hours): Temp Pulse Resp BP Pulse Ox 97.3 F L 71 20 104/63 100 08/10/17 16:00 08/10/17 16:00 08/10/17 16:00 08/10/17 16:00 08/10/17 16:00 Intake and Output: 08/10/17 08/11/17 18:59 06:59 Intake Total 600 Balance 600 - Medications Medications: Current Medications Acetaminophen (Tylenol 650mg/20.3ml Solution Ud) 650 mg NG Q6 PRN PRN Reason: fever Last Admin: 07/29/17 22:31 Dose: 650 mg Albuterol/Ipratropium (Duoneb 3 Mg/0.5 Mg (3 Ml) Ud) 3 ml INH RQ2 PRN PRN Reason: Cough Last Admin: 08/09/17 13:46 Dose: 3 ml Amiodarone HCl (Cordarone) 200 mg PO DAILY [facility] Last Admin: 08/10/17 09:30 Dose: 200 mg Aspirin (Aspirin Chewable) 81 mg PO DAILY [facility] Last Admin: 08/10/17 09:30 Dose: 81 mg Chlorthalidone (Hygroton) 25 mg PO DAILY [facility] Last Admin: 08/10/17 09:40 Dose: 25 mg Dextrose (Dextrose 50% Inj) 0 ml IV STAT PRN; Protocol PRN Reason: Hypoglycemia Protocol Last Admin: 08/01/17 18:02 Dose: 50 ml Dextrose (Glutose 15) 0 gm PO ONCE PRN; Protocol PRN Reason: Hypoglycemia Protocol Diltiazem HCl (Cardizem) 30 mg PO QID [facility] Last Admin: 08/10/17 18:12 Dose: 30 mg Finasteride (Proscar) 5 mg PO DAILY [facility] Last Admin: 08/10/17 09:30 Dose: 5 mg Gabapentin (Neurontin) 300 mg PO TID [facility] Last Admin: 08/10/17 18:12 Dose: 300 mg Glucagon (Glucagen Diagnostic Kit) 0 mg IM STAT PRN; Protocol PRN Reason: Hypoglycemia Protocol Hydralazine HCl (Apresoline) 10 mg IVP Q6H PRN PRN Reason: Systolic Blood Pressure Ferric Sodium Gluconate Complex 125 mg/ Sodium Chloride 110 mls @ 110 mls/hr IVPB DAILY [facility] Stop: 08/18/17 11:01 Last Admin: 08/10/17 11:26 Dose: 110 mls/hr Levetiracetam (Keppra) 500 mg PO BID [facility] Last Admin: 08/10/17 18:12 Dose: 500 mg Losartan Potassium (Cozaar) 25 mg PO DAILY [facility] Last Admin: 08/10/17 09:30 Dose: 25 mg Metoprolol Tartrate (Lopressor) 5 mg IVP Q6H PRN PRN Reason: Heart rate Ondansetron HCl (Zofran Inj) 4 mg IVP Q8H PRN PRN Reason: Nausea/Vomiting Last Admin: 08/08/17 01:13 Dose: 4 mg Pantoprazole Sodium (Protonix Ec Tab) 40 mg PO DAILY [facility] Last Admin: 08/10/17 09:30 Dose: 40 mg Rosuvastatin Calcium (Crestor) 10 mg PO HS [facility] Last Admin: 08/09/17 21:56 Dose: 10 mg Tamsulosin HCl (Flomax) 0.4 mg PO DAILY [facility] Last Admin: 08/10/17 09:30 Dose: 0.4 mg Zolpidem Tartrate (Ambien) 5 mg PO HS [facility] Last Admin: 08/09/17 21:56 Dose: 5 mg - Labs Labs: 08/10/17 07:08 08/10/17 07:08 PT 21.1 SECONDS (9.7-12.2) H 08/10/17 07:08 INR 1.8 08/10/17 07:08 APTT 34 SECONDS (21-34) D 07/30/17 08:02
--- NOTE | 2017-08-10 22:48 | CP.PCM.PN ---
Subjective - Date & Time of Evaluation Date of Evaluation: 08/10/17 Time of Evaluation: 22:48 - Subjective Subjective: AFEBRILE, c/o cough and congestion. unable to expectorate. LABS REVIEWED. H/H DROPED H/H discussed with staff. check cxr. cough expectorant Objective - Vital Signs/Intake and Output Vital Signs (last 24 hours): Temp Pulse Resp BP Pulse Ox 97.3 F L 71 20 104/63 100 08/10/17 16:00 08/10/17 16:00 08/10/17 16:00 08/10/17 16:00 08/10/17 16:00 Intake and Output: 08/10/17 08/11/17 18:59 06:59 Intake Total 600 Balance 600 - Medications Medications: Current Medications Acetaminophen (Tylenol 650mg/20.3ml Solution Ud) 650 mg NG Q6 PRN PRN Reason: fever Last Admin: 07/29/17 22:31 Dose: 650 mg Albuterol/Ipratropium (Duoneb 3 Mg/0.5 Mg (3 Ml) Ud) 3 ml INH RQ2 PRN PRN Reason: Cough Last Admin: 08/09/17 13:46 Dose: 3 ml Amiodarone HCl (Cordarone) 200 mg PO DAILY [facility] Last Admin: 08/10/17 09:30 Dose: 200 mg Aspirin (Aspirin Chewable) 81 mg PO DAILY [facility] Last Admin: 08/10/17 09:30 Dose: 81 mg Chlorthalidone (Hygroton) 25 mg PO DAILY [facility] Last Admin: 08/10/17 09:40 Dose: 25 mg Dextrose (Dextrose 50% Inj) 0 ml IV STAT PRN; Protocol PRN Reason: Hypoglycemia Protocol Last Admin: 08/01/17 18:02 Dose: 50 ml Dextrose (Glutose 15) 0 gm PO ONCE PRN; Protocol PRN Reason: Hypoglycemia Protocol Diltiazem HCl (Cardizem) 30 mg PO QID [facility] Last Admin: 08/10/17 21:59 Dose: 30 mg Finasteride (Proscar) 5 mg PO DAILY [facility] Last Admin: 08/10/17 09:30 Dose: 5 mg Gabapentin (Neurontin) 300 mg PO TID [facility] Last Admin: 08/10/17 18:12 Dose: 300 mg Glucagon (Glucagen Diagnostic Kit) 0 mg IM STAT PRN; Protocol PRN Reason: Hypoglycemia Protocol Guaifenesin (Robitussin) 200 mg PO Q4H PRN PRN Reason: Cough and congestion Hydralazine HCl (Apresoline) 10 mg IVP Q6H PRN PRN Reason: Systolic Blood Pressure Ferric Sodium Gluconate Complex 125 mg/ Sodium Chloride 110 mls @ 110 mls/hr IVPB DAILY [facility] Stop: 08/18/17 11:01 Last Admin: 08/10/17 11:26 Dose: 110 mls/hr Levetiracetam (Keppra) 500 mg PO BID [facility] Last Admin: 08/10/17 18:12 Dose: 500 mg Losartan Potassium (Cozaar) 25 mg PO DAILY [facility] Last Admin: 08/10/17 09:30 Dose: 25 mg Metoprolol Tartrate (Lopressor) 5 mg IVP Q6H PRN PRN Reason: Heart rate Ondansetron HCl (Zofran Inj) 4 mg IVP Q8H PRN PRN Reason: Nausea/Vomiting Last Admin: 08/08/17 01:13 Dose: 4 mg Pantoprazole Sodium (Protonix Ec Tab) 40 mg PO DAILY [facility] Last Admin: 08/10/17 09:30 Dose: 40 mg Rosuvastatin Calcium (Crestor) 10 mg PO [facility] Last Admin: 08/10/17 21:59 Dose: 10 mg Tamsulosin HCl (Flomax) 0.4 mg PO DAILY [facility] Last Admin: 08/10/17 09:30 Dose: 0.4 mg Zolpidem Tartrate (Ambien) 5 mg PO [facility] Last Admin: 08/10/17 21:59 Dose: 5 mg - Labs Labs: 08/10/17 07:08 08/10/17 07:08 PT 21.1 SECONDS (9.7-12.2) H 08/10/17 07:08 INR 1.8 08/10/17 07:08 APTT 34 SECONDS (21-34) D 07/30/17 08:02 - Constitutional Appears: No Acute Distress - Head Exam Head Exam: NORMAL INSPECTION - Eye Exam Eye Exam: EOMI, PERRL - ENT Exam ENT Exam: Normal Oropharynx - Neck Exam Neck Exam: Normal Inspection - Respiratory Exam Respiratory Exam: Decreased Breath Sounds (left base) - Cardiovascular Exam Cardiovascular Exam: REGULAR RHYTHM, +S1, +S2 - GI/Abdominal Exam GI & Abdominal Exam: Soft, Normal Bowel Sounds (post operative.) - Extremities Exam Additional comments: b/l AKA. - Neurological Exam Neurological Exam: Awake, Oriented x3 - Psychiatric Exam Psychiatric exam: Normal Mood - Skin Skin Exam: Normal Color, Warm Assessment and Plan - Assessment and Plan (Free Text) Assessment: IMPRESSION; - S/P RIGHT HEMICOLECTOMY/SMALL BOWEL RESECTION WITH PRIMARY ANASTOMOSIS.07/31/17 -AND RESECTION CECAL MASS. -aTRIAL FIBRILLATION. -PVD S/P B/L AKA. -HX OF MULTIPLE CVAS. PLAN. F/U CXR EXPECTORANT , CARDIOLOGY ON BOARD. WATCH H/H POST OPTIVE DAY # 11 OFF ABX POST -OPTIVE CARE PER SURGERY. F/U BX /PATH REPORT.-P
[2017-08-10] MEDS: guaiFENesin 200 mg/10 ml Syrup UD PO PRN (23:07)
[2017-08-11 07:52] LABS: BASO % 0.8 % (0.0-2.0); EOS # 0.1 K/uL (0.0-0.7); HEMOGLOBIN 8.5 g/dL (12.0-18.0); LYMPH # 0.9 K/uL (1.0-4.3); LYMPH % 16.9 % (20.0-40.0); MEAN CELL VOLUME 74.7 fL (80.0-94.0); MEAN CORPUSCULAR HEMOGLOBIN 25.1 pg (27.0-31.0); MEAN CORPUSCULAR HGB CONC 33.6 g/dL (33.0-37.0); MONO # 0.4 K/uL (0.0-0.8); NEUT # 3.9 K/uL (1.8-7.0); NEUT % 73.3 % (50.0-75.0); RBC 3.39 Mil/uL (4.40-5.90); RED CELL DISTRIBUTION WIDTH 18.3 % (11.5-14.5); WHITE BLOOD COUNT 5.3 K/uL (4.8-10.8)
[2017-08-11 08:05] LABS: ALB/GLOB RATIO 0.8 (1.0-2.1); ALBUMIN 2.5 g/dL (3.5-5.0); ALT/SGPT 22 U/L (21-72); AST/SGOT 17 U/L (17-59); BLOOD UREA NITROGEN 12 mg/dL (9-20); CALCIUM 8.2 mg/dl (8.6-10.4); GFR AFRICAN-AMERICAN > 60; GFR NON-AFRICAN AMERICAN > 60
[2017-08-11 08:14] LABS: B-TYPE NATRIURETIC PEPTIDE 233 pg/mL (0-900)
--- NOTE | 2017-08-11 08:36 | RAD ---
HISTORY: r/o pneumonia/effusion COMPARISON: 08/03/2017. FINDINGS: LUNGS: The lungs are clear. PLEURA: Question of small right pleural effusion, no pneumothorax apparent. CARDIOVASCULAR: Normal. OSSEOUS STRUCTURES: No significant abnormalities. VISUALIZED UPPER ABDOMEN: Normal. OTHER FINDINGS: There is gaseous distension of the stomach. IMPRESSION: No active pulmonary disease. Gaseous distension of the stomach.
--- NOTE | 2017-08-11 09:01 | CP.PCM.PN ---
Subjective - Date & Time of Evaluation Date of Evaluation: 08/11/17 Time of Evaluation: 07:40 - Subjective Subjective: Cardiology Progress Note for Dr. Brown Patient seen and examined at bedside on two encounters. On initial encounter patient was being fed breakfast by Nurse aid. On second encounter patient's daughter was at bedside, all questions answered. Patient reports increase in fatigue. Daughter and nurse reports his stool is not dark and does not appear to have any blood on it. Informed consent was obtained and bedside rectal exam with fecal occult blood test was performed without complications. Objective - Vital Signs/Intake and Output Vital Signs (last 24 hours): Temp Pulse Resp BP Pulse Ox 98.1 F 71 20 106/66 100 08/11/17 07:45 08/11/17 07:45 08/11/17 07:45 08/11/17 07:45 08/11/17 07:45 Intake and Output: 08/11/17 08/11/17 06:59 18:59 Intake Total 600 Balance 600 - Medications Medications: Current Medications Acetaminophen (Tylenol 650mg/20.3ml Solution Ud) 650 mg NG Q6 PRN PRN Reason: fever Last Admin: 07/29/17 22:31 Dose: 650 mg Albuterol/Ipratropium (Duoneb 3 Mg/0.5 Mg (3 Ml) Ud) 3 ml INH RQ2 PRN PRN Reason: Cough Last Admin: 08/09/17 13:46 Dose: 3 ml Amiodarone HCl (Cordarone) 200 mg PO DAILY [facility] Last Admin: 08/10/17 09:30 Dose: 200 mg Aspirin (Aspirin Chewable) 81 mg PO DAILY [facility] Last Admin: 08/10/17 09:30 Dose: 81 mg Chlorthalidone (Hygroton) 25 mg PO DAILY [facility] Last Admin: 08/10/17 09:40 Dose: 25 mg Dextrose (Dextrose 50% Inj) 0 ml IV STAT PRN; Protocol PRN Reason: Hypoglycemia Protocol Last Admin: 08/01/17 18:02 Dose: 50 ml Dextrose (Glutose 15) 0 gm PO ONCE PRN; Protocol PRN Reason: Hypoglycemia Protocol Diltiazem HCl (Cardizem) 30 mg PO QID [facility] Last Admin: 08/10/17 21:59 Dose: 30 mg Finasteride (Proscar) 5 mg PO DAILY [facility] Last Admin: 08/10/17 09:30 Dose: 5 mg Gabapentin (Neurontin) 300 mg PO TID [facility] Last Admin: 08/10/17 18:12 Dose: 300 mg Glucagon (Glucagen Diagnostic Kit) 0 mg IM STAT PRN; Protocol PRN Reason: Hypoglycemia Protocol Guaifenesin (Robitussin) 200 mg PO Q4H PRN PRN Reason: Cough and congestion Last Admin: 08/10/17 23:07 Dose: 200 mg Hydralazine HCl (Apresoline) 10 mg IVP Q6H PRN PRN Reason: Systolic Blood Pressure Ferric Sodium Gluconate Complex 125 mg/ Sodium Chloride 110 mls @ 110 mls/hr IVPB DAILY [facility] Stop: 08/18/17 11:01 Last Admin: 08/10/17 11:26 Dose: 110 mls/hr Levetiracetam (Keppra) 500 mg PO BID [facility] Last Admin: 08/10/17 18:12 Dose: 500 mg Losartan Potassium (Cozaar) 25 mg PO DAILY [facility] Last Admin: 08/10/17 09:30 Dose: 25 mg Metoprolol Tartrate (Lopressor) 5 mg IVP Q6H PRN PRN Reason: Heart rate Ondansetron HCl (Zofran Inj) 4 mg IVP Q8H PRN PRN Reason: Nausea/Vomiting Last Admin: 08/08/17 01:13 Dose: 4 mg Pantoprazole Sodium (Protonix Ec Tab) 40 mg PO DAILY [facility] Last Admin: 08/10/17 09:30 Dose: 40 mg Rosuvastatin Calcium (Crestor) 10 mg PO [facility] Last Admin: 08/10/17 21:59 Dose: 10 mg Tamsulosin HCl (Flomax) 0.4 mg PO DAILY [facility] Last Admin: 08/10/17 09:30 Dose: 0.4 mg Zolpidem Tartrate (Ambien) 5 mg PO [facility] Last Admin: 08/10/17 21:59 Dose: 5 mg - Labs Labs: 08/11/17 07:38 08/11/17 07:38 PT 21.1 SECONDS (9.7-12.2) H 08/10/17 07:08 INR 1.8 08/10/17 07:08 APTT 34 SECONDS (21-34) D 07/30/17 08:02 - Head Exam Head Exam: ATRAUMATIC, NORMOCEPHALIC - Eye Exam Eye Exam: Conjunctival injection - ENT Exam ENT Exam: Mucous Membranes Moist, Normal Oropharynx - Neck Exam Neck Exam: Normal Inspection Additional comments: no jvd - Respiratory Exam Respiratory Exam: Clear to Ausculation Bilateral, NORMAL BREATHING PATTERN. absent: Respiratory Distress - Cardiovascular Exam Cardiovascular Exam: +S1, +S2. absent: Tachycardia - GI/Abdominal Exam GI & Abdominal Exam: Soft, Normal Bowel Sounds - Rectal Exam Additional comments: patient was placed in the left lateral decubitus position (with the assistance of nurse and daughter) allowing for bedside digital rectal rectal exam to performed, anal sphincter tone was intact, no gross blood noted during exam; FOBT obtained and sent to lab. 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 CT of the abdomen and pelvis showed severe constipation with fecalization of small bowel contents and a large, 5.5. cm polypoid soft tissue mass in hepatic flexure of the colon. Cardiology was consulted by surgery for a non-cardiac surgical risk assessment. Patient underwent right hemicolectomy and small bowel resection without any complications. Patient is now on telemetry floor and being restarted on his oral anticoagulation. Plan: - Patient's H&H has been gradually dropping since starting Warfarin. Currently, the H/H is at 8.5/25.3. Will continue to monitor, and intervene as appropriate. 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 The importance of obtaining the INR was discussed in detail with the Nurse. - Goal of INR between 2-3 for treatment of aortic arch atheroma. - Continue all medications for rhythm and rate control. - Ferric gluconate to be adminstered 125 mg IVPB daily; patient had no adverse reactions to first dose given yesterday. Case reviewed and discussed with attending physician, Dr. Brown
[2017-08-11] MEDS: Pantoprazole 40 mg EC Tab PO SCH (10:52)
[2017-08-11] MEDS: Ferric Sodium Gluconat Complex 125 MG in Sodium Chloride 0.9% 100 ML IVPB SCH (11:20)
[2017-08-11 11:28] LABS: INR 1.9
--- NOTE | 2017-08-11 20:19 | CP.PCM.PN ---
Subjective - Date & Time of Evaluation Date of Evaluation: 08/11/17 Objective - Vital Signs/Intake and Output Vital Signs (last 24 hours): Temp Pulse Resp BP Pulse Ox 97.4 F L 73 20 124/63 100 08/11/17 15:09 08/11/17 18:30 08/11/17 15:09 08/11/17 18:30 08/11/17 15:09 Intake and Output: 08/11/17 08/12/17 18:59 06:59 Intake Total 480 Balance 480 - Medications Medications: Current Medications Acetaminophen (Tylenol 650mg/20.3ml Solution Ud) 650 mg NG Q6 PRN PRN Reason: fever Last Admin: 07/29/17 22:31 Dose: 650 mg Albuterol/Ipratropium (Duoneb 3 Mg/0.5 Mg (3 Ml) Ud) 3 ml INH RQ2 PRN PRN Reason: Cough Last Admin: 08/09/17 13:46 Dose: 3 ml Amiodarone HCl (Cordarone) 200 mg PO DAILY [facility] Last Admin: 08/11/17 10:50 Dose: 200 mg Aspirin (Aspirin Chewable) 81 mg PO DAILY [facility] Last Admin: 08/11/17 10:50 Dose: 81 mg Chlorthalidone (Hygroton) 25 mg PO DAILY [facility] Last Admin: 08/11/17 10:51 Dose: 25 mg Diltiazem HCl (Cardizem) 30 mg PO QID [facility] Last Admin: 08/11/17 18:29 Dose: 30 mg Finasteride (Proscar) 5 mg PO DAILY [facility] Last Admin: 08/11/17 10:52 Dose: 5 mg Gabapentin (Neurontin) 300 mg PO TID [facility] Last Admin: 08/11/17 18:30 Dose: 300 mg Glucagon (Glucagen Diagnostic Kit) 0 mg IM STAT PRN; Protocol PRN Reason: Hypoglycemia Protocol Guaifenesin (Robitussin) 200 mg PO Q4H PRN PRN Reason: Cough and congestion Last Admin: 08/10/17 23:07 Dose: 200 mg Hydralazine HCl (Apresoline) 10 mg IVP Q6H PRN PRN Reason: Systolic Blood Pressure Ferric Sodium Gluconate Complex 125 mg/ Sodium Chloride 110 mls @ 110 mls/hr IVPB DAILY [facility] Stop: 08/18/17 11:01 Last Admin: 08/11/17 11:20 Dose: 110 mls/hr Levetiracetam (Keppra) 500 mg PO BID [facility] Last Admin: 08/11/17 18:29 Dose: 500 mg Losartan Potassium (Cozaar) 25 mg PO DAILY [facility] Last Admin: 08/11/17 11:30 Dose: 25 mg Ondansetron HCl (Zofran Inj) 4 mg IVP Q8H PRN PRN Reason: Nausea/Vomiting Last Admin: 08/08/17 01:13 Dose: 4 mg Pantoprazole Sodium (Protonix Ec Tab) 40 mg PO DAILY [facility] Last Admin: 08/11/17 10:52 Dose: 40 mg Rosuvastatin Calcium (Crestor) 10 mg PO HS [facility] Last Admin: 08/10/17 21:59 Dose: 10 mg Tamsulosin HCl (Flomax) 0.4 mg PO DAILY [facility] Last Admin: 08/11/17 10:51 Dose: 0.4 mg Zolpidem Tartrate (Ambien) 5 mg PO HS [facility] Last Admin: 08/10/17 21:59 Dose: 5 mg - Labs Labs: 08/11/17 07:38 08/11/17 07:38 PT 22.0 SECONDS (9.7-12.2) H 08/11/17 11:18 INR 1.9 08/11/17 11:18 APTT 34 SECONDS (21-34) D 07/30/17 08:02 Assessment and Plan - Assessment and Plan (Free Text) Plan: Follow-up with the consultation Discharge planning DuoNeb IV iron All other medications reviewed Biopsy report still pending Follow-up with ID Follow-up with other consultations
--- NOTE | 2017-08-11 21:51 | CP.PCM.PN ---
Subjective - Date & Time of Evaluation Date of Evaluation: 08/11/17 Time of Evaluation: 21:50 - Subjective Subjective: AFEBRILE, c/o cough and congestion. unable to expectorate. CXR REVIEWED 08/11/17 -no active pulmonary disease gaseous distention of the stomach Continue cough expectorant. Patient off antibiotics Objective - Vital Signs/Intake and Output Vital Signs (last 24 hours): Temp Pulse Resp BP Pulse Ox 97.4 F L 73 20 124/63 100 08/11/17 15:09 08/11/17 18:30 08/11/17 15:09 08/11/17 18:30 08/11/17 15:09 Intake and Output: 08/11/17 08/12/17 18:59 06:59 Intake Total 480 Balance 480 - Medications Medications: Current Medications Acetaminophen (Tylenol 650mg/20.3ml Solution Ud) 650 mg NG Q6 PRN PRN Reason: fever Last Admin: 07/29/17 22:31 Dose: 650 mg Albuterol/Ipratropium (Duoneb 3 Mg/0.5 Mg (3 Ml) Ud) 3 ml INH RQ2 PRN PRN Reason: Cough Last Admin: 08/09/17 13:46 Dose: 3 ml Amiodarone HCl (Cordarone) 200 mg PO DAILY [facility] Last Admin: 08/11/17 10:50 Dose: 200 mg Aspirin (Aspirin Chewable) 81 mg PO DAILY [facility] Last Admin: 08/11/17 10:50 Dose: 81 mg Chlorthalidone (Hygroton) 25 mg PO DAILY [facility] Last Admin: 08/11/17 10:51 Dose: 25 mg Diltiazem HCl (Cardizem) 30 mg PO QID [facility] Last Admin: 08/11/17 18:29 Dose: 30 mg Finasteride (Proscar) 5 mg PO DAILY [facility] Last Admin: 08/11/17 10:52 Dose: 5 mg Gabapentin (Neurontin) 300 mg PO TID [facility] Last Admin: 08/11/17 18:30 Dose: 300 mg Glucagon (Glucagen Diagnostic Kit) 0 mg IM STAT PRN; Protocol PRN Reason: Hypoglycemia Protocol Guaifenesin (Robitussin) 200 mg PO Q4H PRN PRN Reason: Cough and congestion Last Admin: 08/10/17 23:07 Dose: 200 mg Hydralazine HCl (Apresoline) 10 mg IVP Q6H PRN PRN Reason: Systolic Blood Pressure Ferric Sodium Gluconate Complex 125 mg/ Sodium Chloride 110 mls @ 110 mls/hr IVPB DAILY [facility] Stop: 08/18/17 11:01 Last Admin: 08/11/17 11:20 Dose: 110 mls/hr Levetiracetam (Keppra) 500 mg PO BID [facility] Last Admin: 08/11/17 18:29 Dose: 500 mg Losartan Potassium (Cozaar) 25 mg PO DAILY [facility] Last Admin: 08/11/17 11:30 Dose: 25 mg Ondansetron HCl (Zofran Inj) 4 mg IVP Q8H PRN PRN Reason: Nausea/Vomiting Last Admin: 08/08/17 01:13 Dose: 4 mg Pantoprazole Sodium (Protonix Ec Tab) 40 mg PO DAILY [facility] Last Admin: 08/11/17 10:52 Dose: 40 mg Rosuvastatin Calcium (Crestor) 10 mg PO HS [facility] Last Admin: 08/10/17 21:59 Dose: 10 mg Tamsulosin HCl (Flomax) 0.4 mg PO DAILY [facility] Last Admin: 08/11/17 10:51 Dose: 0.4 mg Zolpidem Tartrate (Ambien) 5 mg PO HS [facility] Last Admin: 08/10/17 21:59 Dose: 5 mg - Labs Labs: 08/11/17 07:38 08/11/17 07:38 PT 22.0 SECONDS (9.7-12.2) H 08/11/17 11:18 INR 1.9 08/11/17 11:18 APTT 34 SECONDS (21-34) D 07/30/17 08:02 - Constitutional Appears: No Acute Distress - Head Exam Head Exam: NORMAL INSPECTION - Eye Exam Eye Exam: EOMI, PERRL - ENT Exam ENT Exam: Normal Oropharynx - Neck Exam Neck Exam: Normal Inspection - Respiratory Exam Respiratory Exam: Clear to Ausculation Bilateral - Cardiovascular Exam Cardiovascular Exam: REGULAR RHYTHM, +S1, +S2 - GI/Abdominal Exam GI & Abdominal Exam: Soft, Normal Bowel Sounds. absent: Rebound - Extremities Exam Additional comments: b/l aka - Neurological Exam Neurological Exam: Awake, CN II-XII Intact, Oriented x3 - Psychiatric Exam Psychiatric exam: Normal Mood - Skin Skin Exam: Normal Color, Warm Assessment and Plan - Assessment and Plan (Free Text) Assessment: MPRESSION; - S/P RIGHT HEMICOLECTOMY/SMALL BOWEL RESECTION WITH PRIMARY ANASTOMOSIS.07/31/17 -AND RESECTION CECAL MASS. -aTRIAL FIBRILLATION. -PVD S/P B/L AKA. -HX OF MULTIPLE CVAS. PLAN. EXPECTORANT , CARDIOLOGY ON BOARD. WATCH H/H OFF ABX POST -OPTIVE CARE PER SURGERY. F/U BX /PATH REPORT.-P
--- NOTE | 2017-08-12 06:51 | CP.PCM.PN ---
Subjective - Date & Time of Evaluation Date of Evaluation: 08/12/17 Time of Evaluation: 06:35 - Subjective Subjective: Cardiology Progress Note for Dr. Brown Patient seen and examined at bedside. Patient reports feeling less tired today. He denies any chest pain, dyspnea, weakness or palpitations. Nurse reports no events overnight. Objective - Vital Signs/Intake and Output Vital Signs (last 24 hours): Temp Pulse Resp BP Pulse Ox 98.1 F 75 20 108/69 97 08/11/17 23:55 08/11/17 23:55 08/11/17 23:55 08/11/17 23:55 08/11/17 23:55 Intake and Output: 08/11/17 08/12/17 18:59 06:59 Intake Total 480 700 Balance 480 700 - Medications Medications: Current Medications Acetaminophen (Tylenol 650mg/20.3ml Solution Ud) 650 mg NG Q6 PRN PRN Reason: fever Last Admin: 07/29/17 22:31 Dose: 650 mg Albuterol/Ipratropium (Duoneb 3 Mg/0.5 Mg (3 Ml) Ud) 3 ml INH RQ2 PRN PRN Reason: Cough Last Admin: 08/09/17 13:46 Dose: 3 ml Amiodarone HCl (Cordarone) 200 mg PO DAILY [facility] Last Admin: 08/11/17 10:50 Dose: 200 mg Aspirin (Aspirin Chewable) 81 mg PO DAILY [facility] Last Admin: 08/11/17 10:50 Dose: 81 mg Chlorthalidone (Hygroton) 25 mg PO DAILY [facility] Last Admin: 08/11/17 10:51 Dose: 25 mg Diltiazem HCl (Cardizem) 30 mg PO QID [facility] Last Admin: 08/11/17 21:58 Dose: 30 mg Finasteride (Proscar) 5 mg PO DAILY [facility] Last Admin: 08/11/17 10:52 Dose: 5 mg Gabapentin (Neurontin) 300 mg PO TID [facility] Last Admin: 08/11/17 18:30 Dose: 300 mg Glucagon (Glucagen Diagnostic Kit) 0 mg IM STAT PRN; Protocol PRN Reason: Hypoglycemia Protocol Guaifenesin (Robitussin) 200 mg PO Q4H PRN PRN Reason: Cough and congestion Last Admin: 08/10/17 23:07 Dose: 200 mg Hydralazine HCl (Apresoline) 10 mg IVP Q6H PRN PRN Reason: Systolic Blood Pressure Ferric Sodium Gluconate Complex 125 mg/ Sodium Chloride 110 mls @ 110 mls/hr IVPB DAILY [facility] Stop: 08/18/17 11:01 Last Admin: 08/11/17 11:20 Dose: 110 mls/hr Levetiracetam (Keppra) 500 mg PO BID [facility] Last Admin: 08/11/17 18:29 Dose: 500 mg Losartan Potassium (Cozaar) 25 mg PO DAILY [facility] Last Admin: 08/11/17 11:30 Dose: 25 mg Ondansetron HCl (Zofran Inj) 4 mg IVP Q8H PRN PRN Reason: Nausea/Vomiting Last Admin: 08/08/17 01:13 Dose: 4 mg Pantoprazole Sodium (Protonix Ec Tab) 40 mg PO DAILY [facility] Last Admin: 08/11/17 10:52 Dose: 40 mg Rosuvastatin Calcium (Crestor) 10 mg PO HS [facility] Last Admin: 08/11/17 21:58 Dose: 10 mg Tamsulosin HCl (Flomax) 0.4 mg PO DAILY [facility] Last Admin: 08/11/17 10:51 Dose: 0.4 mg Zolpidem Tartrate (Ambien) 5 mg PO HS [facility] Last Admin: 08/11/17 21:58 Dose: 5 mg - Labs Labs: 08/11/17 07:38 08/11/17 07:38 PT 22.0 SECONDS (9.7-12.2) H 08/11/17 11:18 INR 1.9 08/11/17 11:18 APTT 34 SECONDS (21-34) D 07/30/17 08:02 - Constitutional Appears: Well, Non-toxic - Head Exam Head Exam: ATRAUMATIC, NORMOCEPHALIC - Eye Exam Eye Exam: Conjunctival injection, EOMI Pupil Exam: NORMAL ACCOMODATION - ENT Exam ENT Exam: Mucous Membranes Moist, Normal Oropharynx - Neck Exam Neck Exam: Normal Inspection - Respiratory Exam Respiratory Exam: Clear to Ausculation Bilateral, NORMAL BREATHING PATTERN. 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 CT of the abdomen and pelvis showed severe constipation and a large, 5.5. cm polypoid soft tissue mass in hepatic flexure of the colon. Cardiology was consulted by surgery for a non-cardiac surgical risk assessment. The patient then underwent a right hemicolectomy and small bowel resection on 07/30/17 without any complications. Patient is currently stable with normal heart rate and has been restarted on all his oral medication, including Coumadin. Plan: - Ferric gluconate 125 mg IVPB daily for underlying iron deficiency anemia. - We will continue to monitor the patient's H&H (today 8.6/25.4) and intervene if appropriate. The patient's FOBT was negative and he is hemodynamically stable. - Goal of INR between 2-3 for treatment of aortic arch atheroma and anticoagulation for atrial fibrillation. - Plavix 75 mg PO daily restarted. - Continue all medications for blood pressure, rhythm and rate control. Case reviewed and discussed with attending physician, Dr. Brown.
[2017-08-12 07:37] LABS: BASO # 0.1 K/uL (0.0-0.2); EOS # 0.1 K/uL (0.0-0.7); HEMOGLOBIN 8.6 g/dL (12.0-18.0); LYMPH % 19.8 % (20.0-40.0); MEAN CELL VOLUME 74.4 fL (80.0-94.0); MEAN CORPUSCULAR HEMOGLOBIN 25.3 pg (27.0-31.0); MEAN PLATELET VOLUME 8.4 fL (7.2-11.7); MONO # 0.4 K/uL (0.0-0.8); MONO % 7.2 % (0.0-10.0); NEUT # 3.7 K/uL (1.8-7.0); RBC 3.41 Mil/uL (4.40-5.90); RED CELL DISTRIBUTION WIDTH 17.9 % (11.5-14.5); WHITE BLOOD COUNT 5.3 K/uL (4.8-10.8)
[2017-08-12 08:19] LABS: ALB/GLOB RATIO 0.8 (1.0-2.1); ALBUMIN 2.5 g/dL (3.5-5.0); ALT/SGPT 27 U/L (21-72); AST/SGOT 28 U/L (17-59); BLOOD UREA NITROGEN 9 mg/dL (9-20); CALCIUM 8.2 mg/dl (8.6-10.4); GFR AFRICAN-AMERICAN > 60; GFR NON-AFRICAN AMERICAN > 60
[2017-08-12 08:39] LABS: INR 2.1
[2017-08-12 09:17] VITALS: O2SAT 100
[2017-08-12] MEDS ORDERED: Potassium Chloride 20 mEq ER Tab PO SCH (10:00)
[2017-08-12] MEDS: Pantoprazole 40 mg EC Tab PO SCH (10:00)
[2017-08-12] MEDS: guaiFENesin 200 mg/10 ml Syrup UD PO PRN (10:13)
[2017-08-12] MEDS: Ferric Sodium Gluconat Complex 125 MG in Sodium Chloride 0.9% 100 ML IVPB SCH (11:00)
--- NOTE | 2017-08-12 11:39 | CP.PCM.PN ---
Subjective - Date & Time of Evaluation Date of Evaluation: 08/12/17 Time of Evaluation: 09:30 - Subjective Subjective: RADIOGRAPHER TECHNOLOGIST NOTES Patient seen today , awake, alert , oriented to person and place , comfortable , tolerating diet , + BM s/p Right hemicolectomy and small bowel resection w/ primary anastomosis Patient accepted at [place] for rehab D/W Dr. Inocencio washington , stable for discharge to [facility] today an d Dr.J washington will follow the patient at [facility] Objective - Vital Signs/Intake and Output Vital Signs (last 24 hours): Temp Pulse Resp BP Pulse Ox 98 F 72 20 124/73 100 08/12/17 07:00 08/12/17 07:00 08/12/17 07:00 08/12/17 07:00 08/12/17 07:00 Intake and Output: 08/12/17 08/12/17 06:59 18:59 Intake Total 700 Balance 700 - Medications Medications: Current Medications Acetaminophen (Tylenol 325mg Tab) 650 mg PO Q6H PRN PRN Reason: Fever >100.4 F Albuterol/Ipratropium (Duoneb 3 Mg/0.5 Mg (3 Ml) Ud) 3 ml INH RQ2 PRN PRN Reason: Cough Last Admin: 08/09/17 13:46 Dose: 3 ml Amiodarone HCl (Cordarone) 200 mg PO DAILY [facility] Last Admin: 08/12/17 10:02 Dose: 200 mg Aspirin (Aspirin Chewable) 81 mg PO DAILY [facility] Last Admin: 08/12/17 10:02 Dose: 81 mg Chlorthalidone (Hygroton) 25 mg PO DAILY [facility] Last Admin: 08/12/17 10:02 Dose: 25 mg Clopidogrel Bisulfate (Plavix) 75 mg PO DAILY [facility] Last Admin: 08/12/17 10:00 Dose: 75 mg Diltiazem HCl (Cardizem) 30 mg PO QID [facility] Last Admin: 08/12/17 10:00 Dose: 30 mg Finasteride (Proscar) 5 mg PO DAILY [facility] Last Admin: 08/12/17 10:12 Dose: 5 mg Gabapentin (Neurontin) 300 mg PO TID [facility] Last Admin: 08/12/17 10:03 Dose: 300 mg Guaifenesin (Robitussin) 200 mg PO Q4H PRN PRN Reason: Cough and congestion Last Admin: 08/12/17 10:13 Dose: 200 mg Ferric Sodium Gluconate Complex 125 mg/ Sodium Chloride 110 mls @ 110 mls/hr IVPB DAILY [facility] Stop: 08/18/17 11:01 Last Admin: 08/12/17 11:00 Dose: 110 mls/hr Levetiracetam (Keppra) 500 mg PO BID [facility] Last Admin: 08/12/17 10:03 Dose: 500 mg Losartan Potassium (Cozaar) 25 mg PO DAILY [facility] Last Admin: 08/12/17 10:02 Dose: 25 mg Ondansetron HCl (Zofran Inj) 4 mg IVP Q8H PRN PRN Reason: Nausea/Vomiting Last Admin: 08/08/17 01:13 Dose: 4 mg Pantoprazole Sodium (Protonix Ec Tab) 40 mg PO DAILY [facility] Last Admin: 08/12/17 10:00 Dose: 40 mg Potassium Chloride (K-Dur 20 Meq Er Tab) 20 meq PO DAILY [facility] Last Admin: 08/12/17 10:01 Dose: 20 meq Rosuvastatin Calcium (Crestor) 10 mg PO HS [facility] Last Admin: 08/11/17 21:58 Dose: 10 mg Tamsulosin HCl (Flomax) 0.4 mg PO DAILY [facility] Last Admin: 08/12/17 10:01 Dose: 0.4 mg Warfarin Sodium (Coumadin) 4 mg PO 1800 [facility] Stop: 08/12/17 18:01 Warfarin Sodium (Coumadin) 4 mg PO 1800 [facility] Stop: 08/16/17 18:01 Zolpidem Tartrate (Ambien) 5 mg PO HS [facility] Last Admin: 08/11/17 21:58 Dose: 5 mg - Labs Labs: 08/12/17 07:17 08/12/17 07:17 PT 25.0 SECONDS (9.7-12.2) H 08/12/17 08:29 INR 2.1 08/12/17 08:29 APTT 34 SECONDS (21-34) D 07/30/17 08:02
[2017-08-12 11:44] VITALS: BP 117/71; PULSE 74; TEMP 98.2
--- NOTE | 2017-08-19 18:14 | PQF GENQUE ---
This form is a permanent part of the medical record Dr. Vines, based on the pathology would you care to provide a diagnosis for this patient? Clarification of your documentation is requested to better reflect the severity of illness and intensity of treatment of your patient. Indicators present [] Specify: [] [] Specify: [] [] Specify: [] [] Specify: [] Location in the medical record that reflects the above clinical findings: [] Treatment Provided: [] PHYSICIAN'S RESPONSE Based on your medical judgment of the clinical indicators outlined above please clarify the following: [] Practitioner response [] If unable to determine, please check the box, sign and date. Present On Admission (POA) Indicator: [] Present at the time of admission [] Not present at the time of admission [] Clinically Undetermined In responding to this query, please exercise your independent professional judgment. The fact that a question is asked does not imply that any particular answer is desired or expected. Thank you for your clarification on this documentation. 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
== END 2017-08-12 12:20 | DRG 585 ==
LOC: C.ER 05:09 → C.3T 09:43 → C.6T 07-30 03:50 → C.9S 07-31 12:39 → C.9I 07-31 19:10 → C.6T 08-05 22:00
PROVIDERS: ADMIT Internal Medicine Nephrology; ATTEND Internal Medicine Nephrology
PROC: 0DBB0ZZ Excision of Ileum, Open Approach (ICD-10-PCS; 2017-07-31)
PROC: 0DTJ0ZZ Resection of Appendix, Open Approach (ICD-10-PCS; 2017-07-31)
PROC: 0DTF0ZZ Resection of Right Large Intestine, Open Approach (ICD-10-PCS; principal; 2017-07-31 07:45)
DX: C18.2 Malignant neoplasm of ascending colon (principal); K63.1 Perforation of intestine (nontraumatic); I47.2 Ventricular tachycardia; C77.2 Secondary and unspecified malignant neoplasm of intra-abdominal lymph nodes; C78.6 Secondary malignant neoplasm of retroperitoneum and peritoneum; I48.91 Unspecified atrial fibrillation; G40.909 Epilepsy, unspecified, not intractable, without status epilepticus; K35.80 Unspecified acute appendicitis; E87.6 Hypokalemia; I10 Essential (primary) hypertension; E78.5 Hyperlipidemia, unspecified; I25.10 Atherosclerotic heart disease of native coronary artery without angina pectoris; I69.392 Facial weakness following cerebral infarction; I73.9 Peripheral vascular disease, unspecified; N40.0 Benign prostatic hyperplasia without lower urinary tract symptoms; Z79.01 Long term (current) use of anticoagulants; Z79.891 Long term (current) use of opiate analgesic; Z86.718 Personal history of other venous thrombosis and embolism; Z89.511 Acquired absence of right leg below knee; Z89.512 Acquired absence of left leg below knee; I70.0 Atherosclerosis of aorta; D50.9 Iron deficiency anemia, unspecified; K57.32 Diverticulitis of large intestine without perforation or abscess without bleeding

== ENCOUNTER 2017-08-17 16:48 | Inpatient (IN) | payer OTHER ==
--- NOTE | 2017-08-17 17:24 | C.PDOC ---
History Of Present Illness NEW ONSET RECTAL BLEED THIS AFTER NOON. SP R HEMICOLECTOMY 08/03 FOR COLON MASS. HAS BEEN HAVING NORMAL BM SINCE DC FROM HOSPITAL. NO ASSOC ABD PAIN, RECTAL PAIN , DIZZY, NV. ON ANTICOAG FOR AFIB EXAM NAD ABD BINDER IN PLACE. SOFT NT ND NO R/G REMAINDER NEG Time Seen by Provider: 08/17/17 17:04 History Per: Patient History/Exam Limitations: no limitations Past Medical History Reviewed: Historical Data, Nursing Documentation, Vital Signs Vital Signs: Last Vital Signs Temp 98 F 08/17/17 17:01 Pulse 78 08/17/17 17:01 Resp 20 08/17/17 17:01 BP 116/86 08/17/17 17:01 Pulse Ox 98 08/17/17 18:42 - Medical History PMH: Arthritis (BACK AND HANDS), Atrial Fibrillation, CHF, HTN, Hypercholesterolemia, Hyperlipidemia, Seizures Denies: Chronic Kidney Disease - [facility] Procedures DETACHMENT AT LEFT UPPER LEG, LOW, OPEN APPROACH (02/04/17) DETACHMENT AT RIGHT UPPER LEG, LOW, OPEN APPROACH (02/04/17) EXCISION OF ILEUM, OPEN APPROACH (07/28/17) EXTIRPATION OF MATTER FROM L FEM ART, OPEN APPROACH (02/04/17) EXTIRPATION OF MATTER FROM R FEM ART, OPEN APPROACH (02/04/17) PLAIN RADIOGRAPHY OF L LOW EXTREM ART USING OTH CONTRAST (02/04/17) PLAIN RADIOGRAPHY OF R LOW EXTREM ART USING OTH CONTRAST (02/04/17) RESECTION OF RIGHT LARGE INTESTINE, OPEN APPROACH (07/28/17) Family History: States: No Known Family Hx - Social History Hx Alcohol Use: No Hx Substance Use: No - Immunization History Hx Tetanus Toxoid Vaccination: No Hx Influenza Vaccination: No Hx Pneumococcal Vaccination: No Review Of Systems Except As Marked, All Systems Reviewed And Found Negative. Constitutional: Negative for: Fever Respiratory: Negative for: Shortness of Breath Gastrointestinal: Positive for: Hematochezia. Negative for: Vomiting, Abdominal Pain Genitourinary: Negative for: Hematuria Musculoskeletal: Negative for: Back Pain Neurological: Negative for: Weakness, Numbness, Headache, Dizziness Physical Exam - Physical Exam Appears: Non-toxic, No Acute Distress Skin: Normal Color, Warm, Dry, No Rash Head: Normacephalic Eye(s): bilateral: PERRL Nose: Normal Oral Mucosa: Moist Lips: Normal Appearing Neck: Normal ROM Chest: Symmetrical Cardiovascular: Rhythm Regular, No Murmur Respiratory: Normal Breath Sounds, No Accessory Muscle Use Gastrointestinal/Abdominal: Soft, No Tenderness, No Guarding, No Rebound, Other (ABD BINDER IN PLACE) Extremity: Normal ROM, No Deformity, No Swelling Neurological/Psych: Oriented x3, Normal Speech ED Course And Treatment - Laboratory Results Result Diagrams: 08/17/17 17:37 08/17/17 17:37 ECG: Interpreted By Me ECG Rhythm: R BBB ECG Interpretation: No Changes From Prior Interpretation Of ECG: UNCH PRIOR Rate From EC O2 Sat by Pulse Oximetry: 98 (RA) Pulse Ox Interpretation: Normal Progress - Re-Evaluation Re-evaluation Note: 08/17/17 17:27 D/W SURG RESIDENT WILL EVAL IN ER 08/17/17 18:40 SP EVAL SURG RESIDENT DR CAMPBELL: NO BRBPR, NO RECUR GI BLEED SINCE MY INITIAL EVAL. VSS+ PENDING CALLBACK PMD 08/17/17 18:52 PER RESIDENT, DR KINCAID RECOMMENDS ADMISSION FOR FURTHER RICKETTS OF CANCER D/W DR Inocencio VINES, AWARE OF ER FINDINGS WILL ADMIT - Data Reviewed Data Reviewed: Lab, Diagnostic imaging, EKG, Old records Disposition Counseled Patient/Family Regarding: Studies Performed, Diagnosis - Disposition Disposition: HOSPITALIZED Disposition Time: 18:53 Condition: STABLE - POA Present On Arrival: None - Clinical Impression Clinical Impression: GI bleed, Coagulopathy, Colon cancer - Scribe Statement The provider has reviewed the documentation as recorded by the Scribe (Pat Baig) All medical record entries made by the Scribe were at my direction and personally dictated by me. I have reviewed the chart and agree that the record accurately reflects my personal performance of the history, physical exam, medical decision making, and the department course for this patient. I have also personally directed, reviewed, and agree with the discharge instructions and disposition. Decision To Admit - Pt Status Changed To: Hospital Disposition Of: Inpatient - Admit Certification Admit to Inpatient:: After my assessment, the patient will require hospitalization for at least two midnights. This is because of the severity of symptoms shown, intensity of services needed, and/or the medical risk in this patient being treated as an outpatient. - InPatient: Physician Admission Certification: I certify that this patient requires 2 or more midnights of care for the following reason:: SEE NOTE - . Bed Request Type: Telemetry Admitting Physician: Janet Vines Patient Diagnosis: GI bleed, Coagulopathy, Colon cancer
[2017-08-17 17:42] LABS: BASO % 1.3 % (0.0-2.0); EOS # 0.1 K/uL (0.0-0.7); EOS % 3.9 % (0.0-4.0); HEMOGLOBIN 9.4 g/dL (12.0-18.0); LYMPH % 26.5 % (20.0-40.0); MEAN CELL VOLUME 75.3 fL (80.0-94.0); MEAN CORPUSCULAR HEMOGLOBIN 25.1 pg (27.0-31.0); MEAN CORPUSCULAR HGB CONC 33.3 g/dL (33.0-37.0); MEAN PLATELET VOLUME 7.6 fL (7.2-11.7); MONO # 0.3 K/uL (0.0-0.8); MONO % 7.4 % (0.0-10.0); NEUT # 2.3 K/uL (1.8-7.0); NEUT % 60.9 % (50.0-75.0); RBC 3.75 Mil/uL (4.40-5.90); WHITE BLOOD COUNT 3.8 K/uL (4.8-10.8)
[2017-08-17 17:49] LABS: INR 2.2; PROTHROMBIN TIME 25.2 SECONDS (9.7-12.2)
[2017-08-17 17:55] LABS: ALB/GLOB RATIO 0.8 (1.0-2.1); ALBUMIN 2.9 g/dL (3.5-5.0); ALT/SGPT 25 U/L (21-72); AST/SGOT 30 U/L (17-59); BLOOD UREA NITROGEN 12 mg/dL (9-20); GFR AFRICAN-AMERICAN > 60; GFR NON-AFRICAN AMERICAN > 60
--- NOTE | 2017-08-17 19:41 | CP.PCM.CON ---
History of Present Illness - History of Present Illness History of Present Illness: Surgery Consult: Dr. Patel Pt is a 72M with PMHx significant for Afib, HTN, CVA, epilepsy, b/l AKAs & who had a recent R hemicolectomy for hepatic flexure mass with obstructive symptoms on 07/31/17. Pt was just discharged to [facility] on 08/12 for rehab and presents today for bright red blood per rectum as reported by nursing staff at rehab. Surgery consulted due to pt's recent surgical hx. Currently, pt is resting comfortably in the ER bed with present at bedside. He states he feels well and doesn't have any complaints at this time. Pt states he has been tolerating his diet and having regular BMs. He denies N/V , F/C, chest pain or SOB. Pt has never had a colonoscopy/endoscopy. PMHx: as listed above PSHx: R hemicolectomy & small bowel resection, b/l AKAs SocialHx: denies smoking/EtOH FamilyHx: denies Review of Systems - Review of Systems All systems: reviewed and no additional remarkable complaints except (as per HPI ) Past Patient History - Infectious Disease Hx of Infectious Diseases: None - Past Medical History & Family History Past Medical History?: Yes - Past Social History Smoking Status: Never Smoked - CARDIAC Hx Atrial Fibrillation: Yes Hx Hypercholesterolemia: Yes Hx Hypertension: Yes - PULMONARY Hx Respiratory Disorders: No - NEUROLOGICAL Hx Seizures: Yes - HEENT Hx HEENT Problems: Yes 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) - RENAL Hx Chronic Kidney Disease: No - ENDOCRINE/METABOLIC Hx Diabetes Mellitus Type 2: Yes - HEMATOLOGICAL/ONCOLOGICAL Hx Blood Disorders: No - INTEGUMENTARY Hx Dermatological Problems: No - MUSCULOSKELETAL/RHEUMATOLOGICAL Hx Arthritis: Yes (BACK AND HANDS) - GASTROINTESTINAL Hx Gastrointestinal Disorders: No - GENITOURINARY/GYNECOLOGICAL Hx Genitourinary Disorders: No - PSYCHIATRIC Hx Substance Use: No - SURGICAL HISTORY Hx Surgeries: Yes Hx Cardiac Catheterization: Yes Hx Musculoskeletal Surgery: Yes (Bilateral AKA) - ANESTHESIA Hx Anesthesia: Yes Hx Anesthesia Reactions: No Hx Malignant Hyperthermia: No Meds Allergies/Adverse Reactions: Allergies Allergy/AdvReac Type Severity Reaction Status Date / Time banana Allergy SWELLING Verified 07/28/17 05:15 pineapple Allergy SWELLING Verified 07/28/17 05:15 Physical Exam - Constitutional Appears: Well, No Acute Distress - Head Exam Head Exam: ATRAUMATIC, NORMOCEPHALIC - Eye Exam Eye Exam: Normal appearance - ENT Exam ENT Exam: Mucous Membranes Moist - Respiratory Exam Respiratory Exam: NORMAL BREATHING PATTERN - Cardiovascular Exam Cardiovascular Exam: RRR - GI/Abdominal Exam GI & Abdominal Exam: Soft. absent: Distended, Guarding Additional comments: midline incision with mehran in place, C/D/I - Rectal Exam Rectal Exam: NORMAL INSPECTION. absent: Black Stool, Bloody Stool, Hemorrhoids - Neurological Exam Neurological exam: Alert, Oriented x3 - Skin Skin Exam: Dry, Intact, Warm Results - Vital Signs Recent Vital Signs: Last Vital Signs Temp 98 F 08/17/17 17:01 Pulse 78 08/17/17 17:01 Resp 20 08/17/17 17:01 BP 116/86 08/17/17 17:01 Pulse Ox 98 08/17/17 18:54 - Labs Result Diagrams: 08/17/17 17:37 08/17/17 17:37 Labs: Laboratory Results - last 24 hr 08/17/17 08/17/17 08/17/17 17:37 17:37 17:37 WBC 3.8 L RBC 3.75 L Hgb 9.4 L Hct 28.3 L MCV 75.3 L MCH 25.1 L MCHC 33.3 RDW 18.0 H Plt Count 427 H D MPV 7.6 Neut % (Auto) 60.9 Lymph % (Auto) 26.5 [place] % (Auto) 7.4 Eos % (Auto) 3.9 Baso % (Auto) 1.3 Neut # (Auto) 2.3 Lymph # (Auto) 1.0 [place] # (Auto) 0.3 Eos # (Auto) 0.1 Baso # (Auto) 0.0 PT 25.2 H INR 2.2 APTT 31 Sodium 138 Potassium 4.1 Chloride 99 Carbon Dioxide 29 Anion Gap 14 BUN 12 Creatinine 0.9 Est GFR ( Amer) > 60 Est GFR (Non-Af Amer) > 60 Random Glucose 86 Calcium 8.0 L Total Bilirubin 0.4 AST 30 ALT 25 Alkaline Phosphatase 53 Total Protein 6.3 Albumin 2.9 L Globulin 3.4 Albumin/Globulin Ratio 0.8 L Assessment & Plan - Assessment and Plan (Free Text) Assessment: 72M s/p R hemicolectomy & SB resection on 07/31, presenting for BRBPR Plan: - H/H stable compared to 08/12 - no active bleeding or blood per rectum noted on [facility] - 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 Pt will need further workup to r/o mets. CT chest, abd/pelvis ordered - will also need GI consultation for eventual colonoscopic eval/follow up - will also need Hem/Onc evaluation - d/w Dr. Amanda Alfred, PGY-3
[2017-08-17] MEDS ORDERED: Iodixanol 320 MG/ML 100 ML BOTTLE IV ONE (19:53)
[2017-08-17 20:01] LABS: SQUAMOUS EPITHIAL 2 /hpf (0-5); URINE BACTERIA RARE (<OCC); URINE BILIRUBIN NEGATIVE (NEGATIVE); URINE BLOOD NEGATIVE (NEGATIVE); URINE CLARITY Clear (Clear); URINE COLOR Yellow (YELLOW); URINE GLUCOSE (UA) NORMAL (Normal); URINE LEUKOCYTE ESTERASE NEG Leu/uL (Negative); URINE PROTEIN NEGATIVE (NEGATIVE); URINE UROBILINOGEN NORMAL mg/dL (0.2-1.0)
[2017-08-17] MEDS ORDERED: Albuterol-Ipratrop 3 mg / 0.5 (3 ml) UD INH PRN (20:29)
[2017-08-17] MEDS ORDERED: guaiFENesin 200 mg/10 ml Syrup UD PO PRN (20:29)
[2017-08-17] MEDS: Sodium Chloride 0.9% 1,000 ML IV SCH (20:41)
--- NOTE | 2017-08-17 22:03 | CT ---
EXAM: CT Chest With Intravenous Contrast CT Abdomen and Pelvis With Intravenous Contrast EXAM DATE/TIME: 08/17/2017 7:39 PM CLINICAL HISTORY: 72 years old, male; Pain and signs and symptoms; Other: Gi bleed; Abdominal pain; Generalized; Cough; Symptoms not specified; Chest pain; Type not specified; Additional info: R/O mets from colon ca TECHNIQUE: Axial computed tomography images of the chest, abdomen and pelvis with intravenous contrast. All CT scans at this facility use one or more dose reduction techniques, viz.: automated exposure control; ma/kV adjustment per patient size (including targeted exams where dose is matched to indication; i.e. head); or iterative reconstruction technique. All CT scans at this facility use one or more dose reduction techniques, viz.: automated exposure control; ma/kV adjustment per patient size (including targeted exams where dose is matched to indication; i.e. head); or iterative reconstruction technique. Coronal and sagittal reformatted images were created and reviewed. CONTRAST: 100 mL of visipaque 320 administered intravenously. COMPARISON: Prior CT abdomen and pelvis of 2017-07-28 FINDINGS: LIMITATIONS: Mild streak/motion artifact. CHEST: LUNGS: Patchy densities in the lung bases, most likely representing atelectasis. No evidence of a large focal consolidation/infiltrate in the lungs. No evidence of diffuse pulmonary vascular congestion. PLEURAL SPACE: Small bilateral pleural effusions. No pneumothorax is seen. HEART: Heart appears mildly enlarged. No evidence of significant pericardial effusion. ABDOMEN: LIVER: Stable appearance of a 1.4 cm peripherally calcified liver lesion, not definitely a cyst given its density, indeterminate in nature. This could be further evaluated with nonemergent followup liver protocol CT or MRI or liver ultrasound. 3 additional small low density liver lesions, most likely representing cysts. The largest of these measures 1 cm. No evidence of diffuse liver lesions. GALLBLADDER AND BILE DUCTS: Mild gallbladder dilatation and gallbladder wall enhancement. No significant pericholecystic inflammation or fluid. No radioopaque gallstones seen. No evidence of significant biliary ductal dilatation. PANCREAS: No CT evidence of acute pancreatitis. SPLEEN: Stable appearance of multiple wedge-shaped areas of low density in the spleen, most likely representing infarcts. ADRENALS: No evidence of suspicious adrenal masses. 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 Bilateral renal scarring. No acute abnormality of the kidneys identified. STOMACH AND BOWEL: Wall thickening of the distal stomach. This could be secondary to incomplete distention versus focal gastritis. Postoperative changes involving the bowel. Evidence of interval right hemicolectomy. An enterocolic anastomosis noted in the right abdomen. Surgical anastomosis also seen in a left abdominal small bowel loop. Otherwise, no significant abnormality of the bowel is identified. No evidence of bowel obstruction. No evidence of diffuse colitis/pancolitis. APPENDIX: Appendix has been surgically removed. PELVIS: BLADDER: Mild thickening of the bladder wall, also seen on the prior exam. This is a nonspecific finding. REPRODUCTIVE: No acute abnormality of the reproductive organs is seen. CHEST, ABDOMEN and PELVIS: INTRAPERITONEAL SPACE: Small amount of free fluid in the right abdomen. No evidence of free air. BONES/JOINTS: Chronic-appearing compression deformity involving the L2 superior endplate, most likely secondary to a chronic vertebral compression fracture or a degenerative Schmorl's node. No evidence of diffuse bony metastatic lesions. SOFT TISSUES: Recent postoperative changes involving the anterior abdominal wall. Midline skin mehran are noted. There is a midline subincisional fluid collection, located inferior to the umbilicus, measuring 5 x 3 x 2.5 cm and having a density of 35 Hounsfield units. This could represent a resolving hematoma or complex seroma. No associated gas. Postoperative scarring in the right groin soft tissues. VASCULATURE: Atherosclerotic calcification. No evidence of abdominal aortic aneurysm or dissection. LYMPH NODES: No evidence of diffuse lymphadenopathy. IMPRESSION: - No evidence of diffuse metastatic disease in the chest, abdomen or pelvis. - Single small, peripherally-calcified indeterminate liver lesion. - Recent postoperative changes. Evidence of recent right hemicolectomy. - 5 x 3 cm midline subincisional fluid collection, which could represent a resolving hematoma or complex seroma. - Cardiomegaly and small bilateral pleural effusions. - Small amount of abdominal free fluid. - Underdistention versus focal gastritis involving the distal stomach. Recommend clinical correlation. - Mild gallbladder dilatation and gallbladder wall enhancement. Findings are of uncertain clinical significance. If there is acute right upper quadrant pain, consider right upper quadrant ultrasound for further evaluation. - See above for remaining findings.
[2017-08-18] MEDS ORDERED: Home Med 1 UNIT (Atorvastatin [Lipitor] 20 MG) PO SCH (10:00)
[2017-08-18] MEDS ORDERED: Pantoprazole 40 mg EC Tab PO SCH (10:00)
--- NOTE | 2017-08-18 12:12 | CP.PCM.CON ---
<Palak Espinosa - Last Filed: 08/18/17 12:26> History of Present Illness - History of Present Illness History of Present Illness: Gastroenterology Consult Note for Dr. 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 Patient reports he had one episode of a bloody bowel movement yesterday. Since admission he has not had any abdominal pain, nausea or vomiting, or any bowel movement. No prior endoscopy or colonscopy. 12 system ROS performed and negative except where stated. PMHx: Atrial Fibrillation (previously on Coumadin), multiple CVA (on ASA/Plavix) , Epilepsy, Severe PVD with B/L acute rosi ischemia in February 2017 s/p B/L AKA PSHx: B/L AKA (02/22) for acute limb ischemia, s/p R hemicolectomy with SB resection, primary anastomosis - for hepatic flexure mass with obstruction on . 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) - RENAL Hx Chronic Kidney Disease: No - ENDOCRINE/METABOLIC Hx Diabetes Mellitus Type 2: Yes - HEMATOLOGICAL/ONCOLOGICAL Hx Blood Disorders: No - INTEGUMENTARY Hx Dermatological Problems: No - MUSCULOSKELETAL/RHEUMATOLOGICAL Hx Arthritis: Yes (BACK AND HANDS) Hx Falls: No - GASTROINTESTINAL Hx Gastrointestinal Disorders: No - GENITOURINARY/GYNECOLOGICAL Hx Genitourinary Disorders: No - PSYCHIATRIC Hx Substance Use: No - SURGICAL HISTORY Hx Surgeries: Yes Hx Cardiac Catheterization: Yes Hx Musculoskeletal Surgery: Yes (Bilateral AKA) - ANESTHESIA Hx Anesthesia: Yes Hx Anesthesia Reactions: No Hx Malignant Hyperthermia: No Meds Allergies/Adverse Reactions: Allergies Allergy/AdvReac Type Severity Reaction Status Date / Time banana Allergy SWELLING Verified 07/28/17 05:15 pineapple Allergy SWELLING Verified 07/28/17 05:15 - Medications Medications: Current Medications Acetaminophen (Tylenol 325mg Tab) 650 mg PO Q6H PRN PRN Reason: Fever >100.4 F Albuterol/Ipratropium (Duoneb 3 Mg/0.5 Mg (3 Ml) Ud) 3 ml INH RQ2 PRN PRN Reason: Cough Aspirin (Aspirin Chewable) 81 mg PO DAILY [facility] Last Admin: 08/18/17 09:27 Dose: 81 mg Chlorthalidone (Hygroton) 25 mg PO DAILY [facility] Last Admin: 08/18/17 09:27 Dose: 25 mg Clopidogrel Bisulfate (Plavix) 75 mg PO DAILY [facility] Last Admin: 08/18/17 09:27 Dose: 75 mg Diltiazem HCl (Cardizem) 30 mg PO QID [facility] Last Admin: 08/18/17 10:36 Dose: 30 mg Ferrous Sulfate (Feosol) 325 mg PO BID [facility] Last Admin: 08/18/17 09:27 Dose: 325 mg Finasteride (Proscar) 5 mg PO DAILY [facility] Last Admin: 08/18/17 09:27 Dose: 5 mg Gabapentin (Neurontin) 300 mg PO TID [facility] Last Admin: 08/18/17 09:27 Dose: 300 mg Guaifenesin (Robitussin) 200 mg PO Q4H PRN PRN Reason: Cough and congestion Sodium Chloride (Sodium Chloride 0.9%) 1,000 mls @ 75 mls/hr IV .[id number] [facility] Last Admin: 08/17/17 20:41 Dose: 75 mls/hr Levetiracetam (Keppra) 500 mg PO BID [facility] Last Admin: 08/18/17 09:27 Dose: 500 mg Losartan Potassium (Cozaar) 25 mg PO DAILY [facility] Last Admin: 08/18/17 09:27 Dose: 25 mg Pantoprazole Sodium (Protonix Ec Tab) 40 mg PO DAILY [facility] Last Admin: 08/18/17 09:27 Dose: 40 mg Rosuvastatin Calcium (Crestor) 10 mg PO DAILY [facility] Tamsulosin HCl (Flomax) 0.4 mg PO DAILY [facility] Last Admin: 08/18/17 09:27 Dose: 0.4 mg Zolpidem Tartrate (Ambien) 5 mg PO [facility] Last Admin: 08/17/17 22:10 Dose: 5 mg Physical Exam - Constitutional Appears: No Acute Distress - Head Exam Head Exam: NORMAL INSPECTION, NORMOCEPHALIC - Eye Exam Eye Exam: EOMI, Normal appearance, PERRL Pupil Exam: NORMAL ACCOMODATION - ENT Exam ENT Exam: Mucous Membranes Moist - Respiratory Exam Respiratory Exam: Clear to Auscultation Bilateral, NORMAL BREATHING PATTERN - Cardiovascular Exam Cardiovascular Exam: REGULAR RHYTHM - GI/Abdominal Exam GI & Abdominal Exam: Normal Bowel Sounds, Soft. absent: Distended, Tenderness Additional comments: Abdominal binder, midline incision with mehran in place, C/D/I - Rectal Exam Additional comments: brown stool with some blood tinged stool - Extremities Exam Additional comments: s/p BL AKA - Neurological Exam Neurological exam: Alert - Psychiatric Exam Psychiatric exam: Normal Affect, Normal Mood Results - Vital Signs Recent Vital Signs: Last Vital Signs Temp 97.6 F 08/18/17 07:00 Pulse 61 08/18/17 07:52 Resp 20 08/18/17 07:00 BP 136/81 08/18/17 07:00 Pulse Ox 100 08/18/17 07:00 - Labs Result Diagrams: 08/17/17 17:37 08/17/17 17:37 Labs: Laboratory Results - last 24 hr 08/17/17 08/17/17 08/17/17 17:37 17:37 17:37 WBC 3.8 L RBC 3.75 L Hgb 9.4 L Hct 28.3 L MCV 75.3 L MCH 25.1 L MCHC 33.3 RDW 18.0 H Plt Count 427 H D MPV 7.6 Neut % (Auto) 60.9 Lymph % (Auto) 26.5 [place] % (Auto) 7.4 Eos % (Auto) 3.9 Baso % (Auto) 1.3 Neut # (Auto) 2.3 Lymph # (Auto) 1.0 [place] # (Auto) 0.3 Eos # (Auto) 0.1 Baso # (Auto) 0.0 PT 25.2 H INR 2.2 APTT 31 Sodium 138 Potassium 4.1 Chloride 99 Carbon Dioxide 29 Anion Gap 14 BUN 12 Creatinine 0.9 Est GFR ( Amer) > 60 Est GFR (Non-Af Amer) > 60 Random Glucose 86 Calcium 8.0 L Total Bilirubin 0.4 AST 30 ALT 25 Alkaline Phosphatase 53 Total Protein 6.3 Albumin 2.9 L Globulin 3.4 Albumin/Globulin Ratio 0.8 L Urine Color Urine Clarity Urine pH Ur Specific [place] Urine Protein Urine Glucose (UA) Urine Ketones Urine Blood Urine Nitrate Urine Bilirubin Urine Urobilinogen Ur Leukocyte Esterase Urine WBC (Auto) Urine RBC (Auto) Ur Squamous Epith Cells Urine Bacteria Stool Occult Blood Blood Type Antibody Screen 08/17/17 08/17/17 08/17/17 19:18 19:53 19:53 WBC RBC Hgb Hct MCV MCH MCHC RDW Plt Count MPV Neut % (Auto) Lymph % (Auto) [place] % (Auto) Eos % (Auto) Baso % (Auto) Neut # (Auto) Lymph # (Auto) [place] # (Auto) Eos # (Auto) Baso # (Auto) PT INR APTT Sodium Potassium Chloride Carbon Dioxide Anion Gap BUN Creatinine Est GFR ( Amer) Est GFR (Non-Af Amer) Random Glucose Calcium Total Bilirubin AST ALT Alkaline Phosphatase Total Protein Albumin Globulin Albumin/Globulin Ratio Urine Color Yellow Urine Clarity Clear Urine pH 7.0 Ur Specific [place] 1.013 Urine Protein Negative Urine Glucose (UA) Normal Urine Ketones Negative Urine Blood Negative Urine Nitrate Negative Urine Bilirubin Negative Urine Urobilinogen Normal Ur Leukocyte Esterase Neg Urine WBC (Auto) 1 Urine RBC (Auto) 1 Ur Squamous Epith Cells 2 Urine Bacteria Rare Stool Occult Blood Positive H Blood Type O POSITIVE Antibody Screen Negative Assessment & Plan - Assessment and Plan (Free Text) Assessment: 72 year old Male with PMHx Atrial Fibrillation (previously on Coumadin) , multiple CVA (on ASA/Plavix), Epilepsy, Severe PVD with B/L acute rosi ischemia in February 2017 s/p B/L AKA, s/p R hemicolectomy for hepatic flexure mass with obstruction on 07/31/17 who was brought in from detention for BRBPR. BRBPR Colon Obstruction s/p R hemicolectomy with Primary Anastomosis 07/31/17 Atrial Fibrillation CVA (on ASA/Plavix) Epilepsy PVD s/p bilateral AKA (02/2017) Plan: BRBPR x1 episode in Jail + FOBT in ED No bowel movements since admission ADRIANNA performed, faint blood in stool Hemoglobin stable at 9.4 on admission, baseline low 9s Currently stable, continue to monitor hemoglobin Continue PPI therapy - Protonix 40mg IVP BID CT Scan revealed 5 x 3 cm midline hematoma or complex seroma, continue to monitor. 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 De Oliveira on board No mets noted on CT Chest, Abdomen, Pelvis Outpatient Colonoscopy in 6 months, due to recent surgery Will Discuss with Dr. Bond, Palak Espinosa DO, PGY1 <Reji Bond - Last Filed: 08/18/17 15:31> Meds - Medications Medications: Current Medications Acetaminophen (Tylenol 325mg Tab) 650 mg PO Q6H PRN PRN Reason: Fever >100.4 F Albuterol/Ipratropium (Duoneb 3 Mg/0.5 Mg (3 Ml) Ud) 3 ml INH RQ2 PRN PRN Reason: Cough Aspirin (Aspirin Chewable) 81 mg PO DAILY [facility] Last Admin: 08/18/17 09:27 Dose: 81 mg Chlorthalidone (Hygroton) 25 mg PO DAILY [facility] Last Admin: 08/18/17 09:27 Dose: 25 mg Clopidogrel Bisulfate (Plavix) 75 mg PO DAILY [facility] Last Admin: 08/18/17 09:27 Dose: 75 mg Diltiazem HCl (Cardizem) 30 mg PO Q6 [facility] Ferrous Sulfate (Feosol) 325 mg PO BID [facility] Last Admin: 08/18/17 09:27 Dose: 325 mg Finasteride (Proscar) 5 mg PO DAILY [facility] Last Admin: 08/18/17 09:27 Dose: 5 mg Gabapentin (Neurontin) 300 mg PO TID [facility] Last Admin: 08/18/17 13:56 Dose: 300 mg Guaifenesin (Robitussin) 200 mg PO Q4H PRN PRN Reason: Cough and congestion Sodium Chloride (Sodium Chloride 0.9%) 1,000 mls @ 75 mls/hr IV .[id number] [facility] Last Admin: 08/17/17 20:41 Dose: 75 mls/hr Levetiracetam (Keppra) 500 mg PO BID [facility] Last Admin: 08/18/17 09:27 Dose: 500 mg Losartan Potassium (Cozaar) 25 mg PO DAILY [facility] Last Admin: 08/18/17 09:27 Dose: 25 mg Pantoprazole Sodium (Protonix Inj) 40 mg IVP Q12H [facility] Potassium Chloride (K-Dur 20 Meq Er Tab) 20 meq PO DAILY [facility] Stop: 08/20/17 14:01 Last Admin: 08/18/17 13:56 Dose: 20 meq Rosuvastatin Calcium (Crestor) 10 mg PO HS [facility] Tamsulosin HCl (Flomax) 0.4 mg PO DAILY [facility] Last Admin: 08/18/17 09:27 Dose: 0.4 mg Zolpidem Tartrate (Ambien) 5 mg PO HS [facility] Last Admin: 08/17/17 22:10 Dose: 5 mg Results - Vital Signs Recent Vital Signs: Last Vital Signs Temp 97.6 F 08/18/17 07:00 Pulse 61 08/18/17 07:52 Resp 20 08/18/17 07:00 BP 136/81 08/18/17 07:00 Pulse Ox 100 08/18/17 07:00 - Labs Result Diagrams: 08/18/17 12:28 08/18/17 12:28 Labs: Laboratory Results - last 24 hr 08/17/17 08/17/17 08/17/17 17:37 17:37 17:37 WBC 3.8 L RBC 3.75 L Hgb 9.4 L Hct 28.3 L MCV 75.3 L MCH 25.1 L MCHC 33.3 RDW 18.0 H Plt Count 427 H D MPV 7.6 Neut % (Auto) 60.9 Lymph % (Auto) 26.5 [place] % (Auto) 7.4 Eos % (Auto) 3.9 Baso % (Auto) 1.3 Neut # (Auto) 2.3 Lymph # (Auto) 1.0 [place] # (Auto) 0.3 Eos # (Auto) 0.1 Baso # (Auto) 0.0 PT 25.2 H INR 2.2 APTT 31 Sodium 138 Potassium 4.1 Chloride 99 Carbon Dioxide 29 Anion Gap 14 BUN 12 Creatinine 0.9 Est GFR ( Amer) > 60 Est GFR (Non-Af Amer) > 60 Random Glucose 86 Calcium 8.0 L Total Bilirubin 0.4 AST 30 ALT 25 Alkaline Phosphatase 53 Total Protein 6.3 Albumin 2.9 L Globulin 3.4 Albumin/Globulin Ratio 0.8 L Urine Color Urine Clarity Urine pH Ur Specific [place] Urine Protein Urine Glucose (UA) Urine Ketones Urine Blood Urine Nitrate Urine Bilirubin Urine Urobilinogen Ur Leukocyte Esterase Urine WBC (Auto) Urine RBC (Auto) Ur Squamous Epith Cells Urine Bacteria Stool Occult Blood Blood Type Antibody Screen 08/17/17 08/17/17 08/17/17 19:18 19:53 19:53 WBC RBC Hgb Hct MCV MCH MCHC RDW Plt Count MPV Neut % (Auto) Lymph % (Auto) [place] % (Auto) Eos % (Auto) Baso % (Auto) Neut # (Auto) Lymph # (Auto) [place] # (Auto) Eos # (Auto) Baso # (Auto) PT INR APTT Sodium Potassium Chloride Carbon Dioxide Anion Gap BUN Creatinine Est GFR ( Amer) Est GFR (Non-Af Amer) Random Glucose Calcium Total Bilirubin AST ALT Alkaline Phosphatase Total Protein Albumin Globulin Albumin/Globulin Ratio Urine Color Yellow Urine Clarity Clear Urine pH 7.0 Ur Specific [place] 1.013 Urine Protein Negative Urine Glucose (UA) Normal Urine Ketones Negative Urine Blood Negative Urine Nitrate Negative Urine Bilirubin Negative Urine Urobilinogen Normal Ur Leukocyte Esterase Neg Urine WBC (Auto) 1 Urine RBC (Auto) 1 Ur Squamous Epith Cells 2 Urine Bacteria Rare Stool Occult Blood Positive H Blood Type O POSITIVE Antibody Screen Negative 08/18/17 08/18/17 12:28 12:28 WBC 4.7 L RBC 3.53 L Hgb 8.8 L Hct 26.6 L MCV 75.3 L MCH 25.0 L MCHC 33.2 RDW 17.6 H Plt Count 375 MPV 7.7 Neut % (Auto) 67.1 Lymph % (Auto) 21.3 [place] % (Auto) 7.8 Eos % (Auto) 3.2 Baso % (Auto) 0.6 Neut # (Auto) 3.1 Lymph # (Auto) 1.0 [place] # (Auto) 0.4 Eos # (Auto) 0.1 Baso # (Auto) 0.0 PT INR APTT Sodium 137 Potassium 3.5 L Chloride 100 Carbon Dioxide 27 Anion Gap 14 BUN 8 L Creatinine 0.8 Est GFR ( Amer) > 60 Est GFR (Non-Af Amer) > 60 Random Glucose 81 Calcium 8.1 L Total Bilirubin 0.1 L AST 21 ALT 26 Alkaline Phosphatase 59 Total Protein 5.7 L Albumin 2.7 L Globulin 3.0 Albumin/Globulin Ratio 0.9 L Urine Color Urine Clarity Urine pH Ur Specific [place] Urine Protein Urine Glucose (UA) Urine Ketones Urine Blood Urine Nitrate Urine Bilirubin Urine Urobilinogen Ur Leukocyte Esterase Urine WBC (Auto) Urine RBC (Auto) Ur Squamous Epith Cells Urine Bacteria Stool Occult Blood Blood Type Antibody Screen Attending/Attestation - Attestation I have personally seen and examined this patient.: Yes I have fully participated in the care of the patient.: Yes I have reviewed all pertinent clinical information: Yes Notes (Text): 08/18/17 15:19 I have seen and examined patient with GI fellow and medical laboratory technologist. Agree with above documentation with the following additions. In brief, this is a 72 year old male with history of CVA on plavix, PVD s/p bilateral BKA, atrial fibrillation, recent hospital admission for obstructing colonic lesion s/p surgical intervention with right hemicolectomy on July 31 who is sent from detention for evaluation of rectal bleeding. Patient himself is not fully aware of ongoing rectal bleeding, additional information obtained via chart review, discussion with nursing staff, and discussion with patient's daughter. He denies abdominal pain, nausea, vomiting, fever/chills. According to nursing staff, patient with two brown bowel movements today, each time with blood tinge. No prior endoscopic evaluation. Additional physical examination: Skin: warm, dry, no suspicious lesions present Abdomen: no hepato/splenomegaly CVA on plavix PVD s/p bilateral BKA Atrial fibrillation Obstructing colon lesion, s/p recent surgical resection - pathology showing adenocarcinoma Anemia, rectal bleeding CT imaging reviewed by me showing 5x3 cm midline fluid collection, likely post operative seroma given clinical scenario - Diet as tolerated - H/H stable, continue to monitor and transfuse as necessary - Follow up surgical recommendations - Suggest oncology evaluation - Patient currently on plavix, hemodynamically stable, and given recent operative intervention, not optimal candidate for endoscopic evaluation. He will certainly require surveillance colonoscopy within 6 months in order to evaluate for synchronous lesions. Will continue to monitor patient clinical course.
[2017-08-18 12:38] LABS: BASO % 0.6 % (0.0-2.0); EOS # 0.1 K/uL (0.0-0.7); EOS % 3.2 % (0.0-4.0); HEMOGLOBIN 8.8 g/dL (12.0-18.0); LYMPH % 21.3 % (20.0-40.0); MEAN CELL VOLUME 75.3 fL (80.0-94.0); MEAN CORPUSCULAR HGB CONC 33.2 g/dL (33.0-37.0); MEAN PLATELET VOLUME 7.7 fL (7.2-11.7); MONO # 0.4 K/uL (0.0-0.8); MONO % 7.8 % (0.0-10.0); NEUT # 3.1 K/uL (1.8-7.0); NEUT % 67.1 % (50.0-75.0); RBC 3.53 Mil/uL (4.40-5.90); RED CELL DISTRIBUTION WIDTH 17.6 % (11.5-14.5); WHITE BLOOD COUNT 4.7 K/uL (4.8-10.8)
--- NOTE | 2017-08-18 12:57 | RAD ---
HISTORY: GI Bleeding COMPARISON: Chest x-ray performed 08/11/17 TECHNIQUE: Chest, one view. FINDINGS: Examination limited by habitus. LUNGS: No focal consolidation. Please note that chest x-ray has limited sensitivity for the detection of pulmonary masses. PLEURA: No significant pleural effusion identified. No definite pneumothorax . CARDIOVASCULAR: Mild cardiomegaly. OSSEOUS STRUCTURES: Degenerative changes. VISUALIZED UPPER ABDOMEN: Unremarkable. OTHER FINDINGS: None. IMPRESSION: Mild cardiomegaly.
[2017-08-18 13:04] LABS: ALB/GLOB RATIO 0.9 (1.0-2.1); ALBUMIN 2.7 g/dL (3.5-5.0); ALT/SGPT 26 U/L (21-72); AST/SGOT 21 U/L (17-59); BLOOD UREA NITROGEN 8 mg/dL (9-20); CALCIUM 8.1 mg/dl (8.6-10.4); GFR AFRICAN-AMERICAN > 60; GFR NON-AFRICAN AMERICAN > 60
[2017-08-18] MEDS: Potassium Chloride 20 mEq ER Tab PO SCH (13:56)
--- NOTE | 2017-08-18 16:17 | CP.PCM.PN ---
Subjective - Date & Time of Evaluation Date of Evaluation: 08/18/17 Time of Evaluation: 06:45 - Subjective Subjective: General Surgery: Dr Patel Pt S&E. ETHAN. Denies abdominal pain. Reports he has not had any further brbpr. Deneis n/v. Previously tolerating diet. Objective - Vital Signs/Intake and Output Vital Signs (last 24 hours): Temp Pulse Resp BP Pulse Ox 97.6 F 61 20 136/81 100 08/18/17 07:00 08/18/17 07:52 08/18/17 07:00 08/18/17 07:00 08/18/17 07:00 Intake and Output: 08/18/17 08/18/17 06:59 18:59 Intake Total 510 Balance 510 - Medications Medications: Current Medications Acetaminophen (Tylenol 325mg Tab) 650 mg PO Q6H PRN PRN Reason: Fever >100.4 F Albuterol/Ipratropium (Duoneb 3 Mg/0.5 Mg (3 Ml) Ud) 3 ml INH RQ2 PRN PRN Reason: Cough Aspirin (Aspirin Chewable) 81 mg PO DAILY [facility] Last Admin: 08/18/17 09:27 Dose: 81 mg Chlorthalidone (Hygroton) 25 mg PO DAILY [facility] Last Admin: 08/18/17 09:27 Dose: 25 mg Clopidogrel Bisulfate (Plavix) 75 mg PO DAILY [facility] Last Admin: 08/18/17 09:27 Dose: 75 mg Diltiazem HCl (Cardizem) 30 mg PO Q6 [facility] Ferrous Sulfate (Feosol) 325 mg PO BID [facility] Last Admin: 08/18/17 09:27 Dose: 325 mg Finasteride (Proscar) 5 mg PO DAILY [facility] Last Admin: 08/18/17 09:27 Dose: 5 mg Gabapentin (Neurontin) 300 mg PO TID [facility] Last Admin: 08/18/17 13:56 Dose: 300 mg Guaifenesin (Robitussin) 200 mg PO Q4H PRN PRN Reason: Cough and congestion Sodium Chloride (Sodium Chloride 0.9%) 1,000 mls @ 75 mls/hr IV .[id number] [facility] Last Admin: 08/17/17 20:41 Dose: 75 mls/hr Levetiracetam (Keppra) 500 mg PO BID [facility] Last Admin: 08/18/17 09:27 Dose: 500 mg Losartan Potassium (Cozaar) 25 mg PO DAILY [facility] Last Admin: 08/18/17 09:27 Dose: 25 mg Pantoprazole Sodium (Protonix Inj) 40 mg IVP Q12H [facility] Potassium Chloride (K-Dur 20 Meq Er Tab) 20 meq PO DAILY [facility] Stop: 08/20/17 14:01 Last Admin: 08/18/17 13:56 Dose: 20 meq Rosuvastatin Calcium (Crestor) 10 mg PO HS [facility] Tamsulosin HCl (Flomax) 0.4 mg PO DAILY [facility] Last Admin: 08/18/17 09:27 Dose: 0.4 mg Zolpidem Tartrate (Ambien) 5 mg PO HS [facility] Last Admin: 08/17/17 22:10 Dose: 5 mg - Labs Labs: 08/18/17 12:28 08/18/17 12:28 PT 25.2 SECONDS (9.7-12.2) H 08/17/17 17:37 INR 2.2 08/17/17 17:37 APTT 31 SECONDS (21-34) 08/17/17 17:37 - Constitutional Appears: Non-toxic - ENT Exam ENT Exam: Normal Exam - Respiratory Exam Respiratory Exam: Respiratory Distress - Cardiovascular Exam Cardiovascular Exam: Irregular Rhythm. absent: Tachycardia - GI/Abdominal Exam GI & Abdominal Exam: Soft. absent: Distended, Firm, Guarding, Tenderness Additional comments: mehran removed at bedside - Extremities Exam Extremities Exam: absent: Pedal Edema - Neurological Exam Neurological Exam: Alert, Awake, Oriented x3 Assessment and Plan - Assessment and Plan (Free Text) Assessment: 72M with reported brbpr Plan: GI input noted and appreciated will continue to monitor for bloody bowel movements trend H/H and transfuse PRN no immediate surgical intervention planned as pt is hemodynamically stable and not actively bleeding will d/w Dr Amanda Bryson, PGY3
[2017-08-18] MEDS ORDERED: POTASSIUM CHLORIDE IV ONE (17:45)
[2017-08-18] MEDS ORDERED: SODIUM CHLORIDE 0.9% IV ONE (17:45)
--- NOTE | 2017-08-18 18:27 | CP.PCM.CON ---
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 The patient reports to feeling well overall. He notes to some abdominal discomfort but is recovering from his recent surgery. He denies abnormal bleeding and bruising in the past. Past medical history: CVA, HTN, afib, PVD, mucinous adenocarcinoma of GI tract Past surgical history: Hemicolectomy, B/L AKAs Family history: Denies hematologic and oncologic problems Social history: Denies tobacco, drank a lot of rum when was younger, denies illicit drug use. Allergies: NKDA Review of systems: All remaining review of systems including HEENT, cardiovascular, respiratory, gastrointestinal, genitourinary, musculoskeletal, dermatologic, neurologic, and psychiatric are negative unless mentioned in the HPI. 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) - RENAL Hx Chronic Kidney Disease: No - ENDOCRINE/METABOLIC Hx Diabetes Mellitus Type 2: Yes - HEMATOLOGICAL/ONCOLOGICAL Hx Blood Disorders: No - INTEGUMENTARY Hx Dermatological Problems: No - MUSCULOSKELETAL/RHEUMATOLOGICAL Hx Arthritis: Yes (BACK AND HANDS) Hx Falls: No - GASTROINTESTINAL Hx Gastrointestinal Disorders: No - GENITOURINARY/GYNECOLOGICAL Hx Genitourinary Disorders: No - PSYCHIATRIC Hx Substance Use: No - SURGICAL HISTORY Hx Surgeries: Yes Hx Cardiac Catheterization: Yes Hx Musculoskeletal Surgery: Yes (Bilateral AKA) - ANESTHESIA Hx Anesthesia: Yes Hx Anesthesia Reactions: No Hx Malignant Hyperthermia: No Meds Allergies/Adverse Reactions: Allergies Allergy/AdvReac Type Severity Reaction Status Date / Time banana Allergy SWELLING Verified 07/28/17 05:15 pineapple Allergy SWELLING Verified 07/28/17 05:15 milk, milk derivatives AdvReac DIARRHEA Uncoded 08/18/17 18:12 - Medications Medications: Current Medications Acetaminophen (Tylenol 325mg Tab) 650 mg PO Q6H PRN PRN Reason: Fever >100.4 F Albuterol/Ipratropium (Duoneb 3 Mg/0.5 Mg (3 Ml) Ud) 3 ml INH RQ2 PRN PRN Reason: Cough Aspirin (Aspirin Chewable) 81 mg PO DAILY [facility] Last Admin: 08/18/17 09:27 Dose: 81 mg Chlorthalidone (Hygroton) 25 mg PO DAILY [facility] Last Admin: 08/18/17 09:27 Dose: 25 mg Clopidogrel Bisulfate (Plavix) 75 mg PO DAILY [facility] Last Admin: 08/18/17 09:27 Dose: 75 mg Diltiazem HCl (Cardizem) 30 mg PO Q6 [facility] Last Admin: 08/18/17 17:24 Dose: Not Given Ferrous Sulfate (Feosol) 325 mg PO BID [facility] Last Admin: 08/18/17 17:23 Dose: 325 mg Finasteride (Proscar) 5 mg PO DAILY [facility] Last Admin: 08/18/17 09:27 Dose: 5 mg Gabapentin (Neurontin) 300 mg PO TID [facility] Last Admin: 08/18/17 17:23 Dose: 300 mg Guaifenesin (Robitussin) 200 mg PO Q4H PRN PRN Reason: Cough and congestion Sodium Chloride (Sodium Chloride 0.9%) 1,000 mls @ 75 mls/hr IV .[id number] [facility] Last Admin: 08/17/17 20:41 Dose: 75 mls/hr Potassium Chloride 20 meq/ (Sodium Chloride) 110 mls @ 50 mls/hr IV ONCE ONE Stop: 08/18/17 20:11 Levetiracetam (Keppra) 500 mg PO BID [facility] Last Admin: 08/18/17 17:23 Dose: 500 mg Losartan Potassium (Cozaar) 25 mg PO DAILY [facility] Last Admin: 08/18/17 09:27 Dose: 25 mg Pantoprazole Sodium (Protonix Inj) 40 mg IVP Q12H [facility] Potassium Chloride (K-Dur 20 Meq Er Tab) 20 meq PO DAILY [facility] Stop: 08/20/17 14:01 Last Admin: 08/18/17 13:56 Dose: 20 meq Rosuvastatin Calcium (Crestor) 10 mg PO [facility] Tamsulosin HCl (Flomax) 0.4 mg PO DAILY [facility] Last Admin: 08/18/17 09:27 Dose: 0.4 mg Zolpidem Tartrate (Ambien) 5 mg PO [facility] Last Admin: 08/17/17 22:10 Dose: 5 mg Physical Exam - Head Exam Head Exam: ATRAUMATIC - Eye Exam Eye Exam: Normal appearance - ENT Exam ENT Exam: Mucous Membranes Dry - Respiratory Exam Respiratory Exam: NORMAL BREATHING PATTERN - Cardiovascular Exam Cardiovascular Exam: +S1, +S2 - GI/Abdominal Exam GI & Abdominal Exam: Normal Bowel Sounds - Neurological Exam Neurological exam: Altered - Psychiatric Exam Psychiatric exam: Normal Affect, Normal Mood - Skin Skin Exam: Warm Results - Vital Signs Recent Vital Signs: Last Vital Signs Temp 97.2 F L 08/18/17 15:32 Pulse 60 08/18/17 15:32 Resp 18 08/18/17 15:32 BP 116/57 L 08/18/17 15:32 Pulse Ox 98 08/18/17 15:32 - Labs Result Diagrams: 08/18/17 12:28 08/18/17 12:28 Labs: Laboratory Results - last 24 hr 08/17/17 08/17/17 08/17/17 19:18 19:53 19:53 WBC RBC Hgb Hct MCV MCH MCHC RDW Plt Count MPV Neut % (Auto) Lymph % (Auto) [place] % (Auto) Eos % (Auto) Baso % (Auto) Neut # (Auto) Lymph # (Auto) [place] # (Auto) Eos # (Auto) Baso # (Auto) Sodium Potassium Chloride Carbon Dioxide Anion Gap BUN Creatinine Est GFR ( Amer) Est GFR (Non-Af Amer) POC Glucose (mg/dL) Random Glucose Calcium Total Bilirubin AST ALT Alkaline Phosphatase Total Protein Albumin Globulin Albumin/Globulin Ratio Urine Color Yellow Urine Clarity Clear Urine pH 7.0 Ur Specific [place] 1.013 Urine Protein Negative Urine Glucose (UA) Normal Urine Ketones Negative Urine Blood Negative Urine Nitrate Negative Urine Bilirubin Negative Urine Urobilinogen Normal Ur Leukocyte Esterase Neg Urine WBC (Auto) 1 Urine RBC (Auto) 1 Ur Squamous Epith Cells 2 Urine Bacteria Rare Stool Occult Blood Positive H Blood Type O POSITIVE Antibody Screen Negative 08/18/17 08/18/17 08/18/17 12:28 12:28 16:58 WBC 4.7 L RBC 3.53 L Hgb 8.8 L Hct 26.6 L MCV 75.3 L MCH 25.0 L MCHC 33.2 RDW 17.6 H Plt Count 375 MPV 7.7 Neut % (Auto) 67.1 Lymph % (Auto) 21.3 [place] % (Auto) 7.8 Eos % (Auto) 3.2 Baso % (Auto) 0.6 Neut # (Auto) 3.1 Lymph # (Auto) 1.0 [place] # (Auto) 0.4 Eos # (Auto) 0.1 Baso # (Auto) 0.0 Sodium 137 Potassium 3.5 L Chloride 100 Carbon Dioxide 27 Anion Gap 14 BUN 8 L Creatinine 0.8 Est GFR ( Amer) > 60 Est GFR (Non-Af Amer) > 60 POC Glucose (mg/dL) 83 Random Glucose 81 Calcium 8.1 L Total Bilirubin 0.1 L AST 21 ALT 26 Alkaline Phosphatase 59 Total Protein 5.7 L Albumin 2.7 L Globulin 3.0 Albumin/Globulin Ratio 0.9 L Urine Color Urine Clarity Urine pH Ur Specific [place] Urine Protein Urine Glucose (UA) Urine Ketones Urine Blood Urine Nitrate Urine Bilirubin Urine Urobilinogen Ur Leukocyte Esterase Urine WBC (Auto) Urine RBC (Auto) Ur Squamous Epith Cells Urine Bacteria Stool Occult Blood Blood Type Antibody Screen Assessment & Plan (1) Anemia Assessment and Plan: GI blood loss will check retic count, b12, folate, ferritin to further characterize Status: Acute (2) Leukopenia Assessment and Plan: mild, no neutropenia Status: Acute (3) Coagulopathy Assessment and Plan: secondary to anticoagulation on hold for GI bleeding Status: Acute (4) Mucinous adenocarcinoma Assessment and Plan: found on right hemicolectomy with LN involvement CT C/A/P does not reveal overt evidence of metastasis not a chemotherapy candidate outpatient colonoscopy to evaluate for synchronous lesion Thank you for this interesting consult. Status: Acute
[2017-08-18] MEDS: Sodium Chloride 0.9% 1,000 ML IV SCH (21:12)
--- NOTE | 2017-08-18 22:00 | CP.PCM.HP ---
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) - RENAL Hx Chronic Kidney Disease: No - ENDOCRINE/METABOLIC Hx Diabetes Mellitus Type 2: Yes - HEMATOLOGICAL/ONCOLOGICAL Hx Blood Disorders: No - INTEGUMENTARY Hx Dermatological Problems: No - MUSCULOSKELETAL/RHEUMATOLOGICAL Hx Arthritis: Yes (BACK AND HANDS) Hx Falls: No - GASTROINTESTINAL Hx Gastrointestinal Disorders: No - GENITOURINARY/GYNECOLOGICAL Hx Genitourinary Disorders: No - PSYCHIATRIC Hx Substance Use: No - SURGICAL HISTORY Hx Surgeries: Yes Hx Cardiac Catheterization: Yes Hx Musculoskeletal Surgery: Yes (Bilateral AKA) - ANESTHESIA Hx Anesthesia: Yes Hx Anesthesia Reactions: No Hx Malignant Hyperthermia: No Meds Allergies/Adverse Reactions: Allergies Allergy/AdvReac Type Severity Reaction Status Date / Time banana Allergy SWELLING Verified 07/28/17 05:15 pineapple Allergy SWELLING Verified 07/28/17 05:15 milk, milk derivatives AdvReac DIARRHEA Uncoded 08/18/17 18:12 Physical Exam - Constitutional Appears: Well - Head Exam Head Exam: ATRAUMATIC, NORMAL INSPECTION, NORMOCEPHALIC - Eye Exam Eye Exam: EOMI, Normal appearance, PERRL Pupil Exam: NORMAL ACCOMODATION, PERRL - ENT Exam ENT Exam: Mucous Membranes Moist, Normal Exam - Neck Exam Neck exam: Positive for: Normal Inspection - Respiratory Exam Respiratory Exam: Decreased Breath Sounds - Cardiovascular Exam Cardiovascular Exam: REGULAR RHYTHM, +S1, +S2 - GI/Abdominal Exam GI & Abdominal Exam: Diminished Bowel Sounds, Soft - Rectal Exam Rectal Exam: Deferred Results - Vital Signs Recent Vital Signs: Last Vital Signs Temp 97.2 F L 08/18/17 15:32 Pulse 60 08/18/17 15:32 Resp 18 08/18/17 15:32 BP 116/57 L 08/18/17 15:32 Pulse Ox 98 08/18/17 15:32 - Labs Result Diagrams: 08/18/17 12:28 08/18/17 12:28 Labs: Laboratory Results - last 24 hr 08/18/17 08/18/17 08/18/17 12:28 12:28 16:58 WBC 4.7 L RBC 3.53 L Hgb 8.8 L Hct 26.6 L MCV 75.3 L MCH 25.0 L MCHC 33.2 RDW 17.6 H Plt Count 375 MPV 7.7 Neut % (Auto) 67.1 Lymph % (Auto) 21.3 [place] % (Auto) 7.8 Eos % (Auto) 3.2 Baso % (Auto) 0.6 Neut # (Auto) 3.1 Lymph # (Auto) 1.0 [place] # (Auto) 0.4 Eos # (Auto) 0.1 Baso # (Auto) 0.0 Sodium 137 Potassium 3.5 L Chloride 100 Carbon Dioxide 27 Anion Gap 14 BUN 8 L Creatinine 0.8 Est GFR ( Amer) > 60 Est GFR (Non-Af Amer) > 60 POC Glucose (mg/dL) 83 Random Glucose 81 Calcium 8.1 L Total Bilirubin 0.1 L AST 21 ALT 26 Alkaline Phosphatase 59 Total Protein 5.7 L Albumin 2.7 L Globulin 3.0 Albumin/Globulin Ratio 0.9 L 08/18/17 21:04 WBC RBC Hgb Hct MCV MCH MCHC RDW Plt Count MPV Neut % (Auto) Lymph % (Auto) [place] % (Auto) Eos % (Auto) Baso % (Auto) Neut # (Auto) Lymph # (Auto) [place] # (Auto) Eos # (Auto) Baso # (Auto) Sodium Potassium Chloride Carbon Dioxide Anion Gap BUN Creatinine Est GFR ( Amer) Est GFR (Non-Af Amer) POC Glucose (mg/dL) 95 Random Glucose Calcium Total Bilirubin AST ALT Alkaline Phosphatase Total Protein Albumin Globulin Albumin/Globulin Ratio
[2017-08-19] MEDS: Sodium Chloride 0.9% 1,000 ML IV SCH ×2 (05:52→12:45)
[2017-08-19 08:27] LABS: BASO % 0.7 % (0.0-2.0); EOS # 0.2 K/uL (0.0-0.7); EOS % 4.3 % (0.0-4.0); HEMOGLOBIN 8.4 g/dL (12.0-18.0); LYMPH % 25.6 % (20.0-40.0); MEAN CELL VOLUME 76.1 fL (80.0-94.0); MEAN CORPUSCULAR HEMOGLOBIN 25.2 pg (27.0-31.0); MEAN CORPUSCULAR HGB CONC 33.1 g/dL (33.0-37.0); MEAN PLATELET VOLUME 7.9 fL (7.2-11.7); MONO # 0.3 K/uL (0.0-0.8); MONO % 7.6 % (0.0-10.0); NEUT # 2.4 K/uL (1.8-7.0); NEUT % 61.8 % (50.0-75.0); RBC 3.35 Mil/uL (4.40-5.90); RED CELL DISTRIBUTION WIDTH 18.5 % (11.5-14.5); WHITE BLOOD COUNT 3.8 K/uL (4.8-10.8)
[2017-08-19 08:53] LABS: ALB/GLOB RATIO 0.9 (1.0-2.1); ALBUMIN 2.6 g/dL (3.5-5.0); ALT/SGPT 22 U/L (21-72); AST/SGOT 17 U/L (17-59); BLOOD UREA NITROGEN 12 mg/dL (9-20); GFR AFRICAN-AMERICAN > 60; GFR NON-AFRICAN AMERICAN > 60
--- NOTE | 2017-08-19 09:29 | CP.PCM.PN ---
<Palak Espinosa - Last Filed: 08/19/17 09:26> Subjective - Date & Time of Evaluation Date of Evaluation: 08/19/17 Time of Evaluation: 07:00 - Subjective Subjective: Gastroenterology Follow Up Note Patient was seen and examined at bedside. Patient resting comfortably, no acute complaints. As per nursing, he had 1 bowel movement brown stool with some blood tinged stool, yesterday early afternoon. Objective - Vital Signs/Intake and Output Vital Signs (last 24 hours): Temp Pulse Resp BP Pulse Ox 97.7 F 57 L 20 122/69 100 08/19/17 07:40 08/19/17 08:00 08/19/17 07:40 08/19/17 07:40 08/19/17 07:40 Intake and Output: 08/19/17 08/19/17 06:59 18:59 Intake Total 1320 Balance 1320 - Medications Medications: Current Medications Acetaminophen (Tylenol 325mg Tab) 650 mg PO Q6H PRN PRN Reason: Fever >100.4 F Albuterol/Ipratropium (Duoneb 3 Mg/0.5 Mg (3 Ml) Ud) 3 ml INH RQ2 PRN PRN Reason: Cough Aspirin (Aspirin Chewable) 81 mg PO DAILY [facility] Last Admin: 08/18/17 09:27 Dose: 81 mg Chlorthalidone (Hygroton) 25 mg PO DAILY [facility] Last Admin: 08/18/17 09:27 Dose: 25 mg Clopidogrel Bisulfate (Plavix) 75 mg PO DAILY [facility] Last Admin: 08/18/17 09:27 Dose: 75 mg Diltiazem HCl (Cardizem) 30 mg PO Q6 [facility] Last Admin: 08/19/17 06:05 Dose: Not Given Ferrous Sulfate (Feosol) 325 mg PO BID [facility] Last Admin: 08/18/17 17:23 Dose: 325 mg Finasteride (Proscar) 5 mg PO DAILY [facility] Last Admin: 08/18/17 09:27 Dose: 5 mg Gabapentin (Neurontin) 300 mg PO TID [facility] Last Admin: 08/18/17 17:23 Dose: 300 mg Guaifenesin (Robitussin) 200 mg PO Q4H PRN PRN Reason: Cough and congestion Sodium Chloride (Sodium Chloride 0.9%) 1,000 mls @ 75 mls/hr IV .[id number] [facility] Last Admin: 08/19/17 05:52 Dose: 75 mls/hr Levetiracetam (Keppra) 500 mg PO BID [facility] Last Admin: 08/18/17 17:23 Dose: 500 mg Losartan Potassium (Cozaar) 25 mg PO DAILY [facility] Last Admin: 08/18/17 09:27 Dose: 25 mg Pantoprazole Sodium (Protonix Inj) 40 mg IVP Q12H [facility] Last Admin: 08/18/17 21:12 Dose: 40 mg Potassium Chloride (K-Dur 20 Meq Er Tab) 20 meq PO DAILY [facility] Stop: 08/20/17 14:01 Last Admin: 08/18/17 13:56 Dose: 20 meq Rosuvastatin Calcium (Crestor) 10 mg PO [facility] Last Admin: 08/18/17 21:12 Dose: 10 mg Tamsulosin HCl (Flomax) 0.4 mg PO DAILY [facility] Last Admin: 08/18/17 09:27 Dose: 0.4 mg Zolpidem Tartrate (Ambien) 5 mg PO [facility] Last Admin: 08/18/17 21:12 Dose: 5 mg - Labs Labs: 08/19/17 08:21 08/19/17 08:21 PT 25.2 SECONDS (9.7-12.2) H 08/17/17 17:37 INR 2.2 08/17/17 17:37 APTT 31 SECONDS (21-34) 08/17/17 17:37 - Constitutional Appears: No Acute Distress - Head Exam Head Exam: NORMAL INSPECTION, NORMOCEPHALIC - Eye Exam Eye Exam: EOMI, Normal appearance, PERRL Pupil Exam: NORMAL ACCOMODATION - ENT Exam ENT Exam: Mucous Membranes Moist - Respiratory Exam Respiratory Exam: Clear to Ausculation Bilateral, NORMAL BREATHING PATTERN - Cardiovascular Exam Cardiovascular Exam: REGULAR RHYTHM - GI/Abdominal Exam GI & Abdominal Exam: Soft, Normal Bowel Sounds. absent: Distended, Tenderness, Organomegaly Additional comments: Abdominal binder, midline incision with mehran in place, C/D/I - Rectal Exam Rectal Exam: Deferred - Extremities Exam Additional comments: BL AKA - Back Exam Back Exam: NORMAL INSPECTION - Neurological Exam Neurological Exam: Alert, Awake - Psychiatric Exam Psychiatric exam: Normal Affect, Normal Mood - Skin Skin Exam: Dry, Intact, Normal Color, Warm Assessment and Plan - Assessment and Plan (Free Text) Assessment: 72 year old Male with PMHx Atrial Fibrillation (previously on Coumadin) , multiple CVA (on ASA/Plavix), Epilepsy, Severe PVD with B/L acute rosi ischemia in February 2017 s/p B/L AKA, s/p R hemicolectomy for hepatic flexure mass with obstruction on 07/31/17; pathology revealing mucinous adenocarcinoma admitted for hematochezia. CVA on plavix PVD s/p bilateral BKA Atrial fibrillation Obstructing colon lesion, s/p recent surgical resection - pathology showing adenocarcinoma Anemia, rectal bleeding CT imaging showed 5x3 cm midline fluid collection, likely post operative seroma given clinical scenario Plan: - No active bleeding - Baseline hemoglobin low 9s, 8.4 today. Continue to monitor and transfuse as necessary - No mets noted on CT Chest, Abdomen, Pelvis, not a chemotherapy candidate as per heme/onc - Will need surveillance colonoscopy within 6 months to evaluate for synchronous lesions. - Will continue to monitor patient clinical course. <Abdifatah Babcock - Last Filed: 08/19/17 12:13> Objective - Vital Signs/Intake and Output Vital Signs (last 24 hours): Temp Pulse Resp BP Pulse Ox 97.7 F 67 20 150/72 100 08/19/17 07:40 08/19/17 11:28 08/19/17 07:40 08/19/17 11:28 08/19/17 07:40 Intake and Output: 08/19/17 08/19/17 06:59 18:59 Intake Total 1320 Balance 1320 - Medications Medications: Current Medications Acetaminophen (Tylenol 325mg Tab) 650 mg PO Q6H PRN PRN Reason: Fever >100.4 F Albuterol/Ipratropium (Duoneb 3 Mg/0.5 Mg (3 Ml) Ud) 3 ml INH RQ2 PRN PRN Reason: Cough Aspirin (Aspirin Chewable) 81 mg PO DAILY [facility] Last Admin: 08/19/17 10:45 Dose: 81 mg Chlorthalidone (Hygroton) 25 mg PO DAILY [facility] Last Admin: 08/19/17 10:45 Dose: 25 mg Clopidogrel Bisulfate (Plavix) 75 mg PO DAILY [facility] Last Admin: 08/19/17 10:45 Dose: 75 mg Diltiazem HCl (Cardizem) 30 mg PO Q6 [facility] Last Admin: 08/19/17 11:29 Dose: 30 mg Ferrous Sulfate (Feosol) 325 mg PO BID [facility] Last Admin: 08/19/17 10:45 Dose: 325 mg Finasteride (Proscar) 5 mg PO DAILY [facility] Last Admin: 08/19/17 10:45 Dose: 5 mg Gabapentin (Neurontin) 300 mg PO TID [facility] Last Admin: 08/19/17 10:45 Dose: 300 mg Guaifenesin (Robitussin) 200 mg PO Q4H PRN PRN Reason: Cough and congestion Sodium Chloride (Sodium Chloride 0.9%) 1,000 mls @ 75 mls/hr IV .[id number] [facility] Last Admin: 08/19/17 05:52 Dose: 75 mls/hr Levetiracetam (Keppra) 500 mg PO BID [facility] Last Admin: 08/19/17 10:45 Dose: 500 mg Losartan Potassium (Cozaar) 25 mg PO DAILY [facility] Last Admin: 08/19/17 10:45 Dose: 25 mg Pantoprazole Sodium (Protonix Inj) 40 mg IVP Q12H [facility] Last Admin: 08/19/17 10:45 Dose: 40 mg Potassium Chloride (K-Dur 20 Meq Er Tab) 20 meq PO DAILY [facility] Stop: 08/20/17 14:01 Last Admin: 08/19/17 11:28 Dose: 20 meq Rosuvastatin Calcium (Crestor) 10 mg PO HS [facility] Last Admin: 08/18/17 21:12 Dose: 10 mg Tamsulosin HCl (Flomax) 0.4 mg PO DAILY [facility] Last Admin: 08/19/17 10:45 Dose: 0.4 mg Zolpidem Tartrate (Ambien) 5 mg PO HS [facility] Last Admin: 08/18/17 21:12 Dose: 5 mg - Labs Labs: 08/19/17 08:21 08/19/17 08:21 PT 25.2 SECONDS (9.7-12.2) H 08/17/17 17:37 INR 2.2 08/17/17 17:37 APTT 31 SECONDS (21-34) 08/17/17 17:37 Attending/Attestation - Attestation I have personally seen and examined this patient.: Yes I have fully participated in the care of the patient.: Yes I have reviewed all pertinent clinical information, including history, physical exam and plan: Yes Notes (Text): 08/19/17 12:11 72 year old with h/o Atrial Fibrillation, CVA, Epilepsy, PVD s/p B/L AKA, CRC s/ p R hemicolectomy a/w BRBPR and anemia. He has chronic anemia which is stable. No active GI bleeding. Bleeding likely hemorrhoidal. Recommend outpatient colonoscopy/endoscopy. Will sign off.
[2017-08-19] MEDS ORDERED: Pneumococcal 23-Valent Vaccine IM ONE (10:00)
[2017-08-19] MEDS ORDERED: Influenza Vaccine 60 mcg/0.5 mL SYR (4YR UP) IM ONE (10:00)
[2017-08-19] MEDS: Potassium Chloride 20 mEq ER Tab PO SCH (11:28)
--- NOTE | 2017-08-19 12:27 | CARD ---
APPROVED REPORT EKG Measurement Heart [id number] <Conclusion> Sinus bradycardia with premature atrial complexes Right bundle branch block Left anterior fascicular block Bifascicular block Moderate voltage criteria for LVH, may be normal variant T wave abnormality, consider lateral ischemia Abnormal ECG
--- NOTE | 2017-08-19 17:18 | CP.PCM.PN ---
Subjective - Date & Time of Evaluation Date of Evaluation: 08/19/17 Time of Evaluation: 09:00 - Subjective Subjective: Surgery: Dr. Patel Pt seen and examined. No acute overnight events. Pt states he feels well, denies abdominal pain and admits to tolerating his diet. per nurse, pt had a BM yesterday which was slightly blood tinged. No other complaints at this time. Objective - Vital Signs/Intake and Output Vital Signs (last 24 hours): Temp Pulse Resp BP Pulse Ox 98.1 F 54 L 18 134/64 100 08/19/17 15:25 08/19/17 15:54 08/19/17 15:25 08/19/17 15:25 08/19/17 15:25 Intake and Output: 08/19/17 08/19/17 06:59 18:59 Intake Total 1320 1075 Balance 1320 1075 - Medications Medications: Current Medications Acetaminophen (Tylenol 325mg Tab) 650 mg PO Q6H PRN PRN Reason: Fever >100.4 F Albuterol/Ipratropium (Duoneb 3 Mg/0.5 Mg (3 Ml) Ud) 3 ml INH RQ2 PRN PRN Reason: Cough Aspirin (Aspirin Chewable) 81 mg PO DAILY [facility] Last Admin: 08/19/17 10:45 Dose: 81 mg Chlorthalidone (Hygroton) 25 mg PO DAILY [facility] Last Admin: 08/19/17 10:45 Dose: 25 mg Clopidogrel Bisulfate (Plavix) 75 mg PO DAILY [facility] Last Admin: 08/19/17 10:45 Dose: 75 mg Diltiazem HCl (Cardizem) 30 mg PO Q6 [facility] Last Admin: 08/19/17 11:29 Dose: 30 mg Ferrous Sulfate (Feosol) 325 mg PO BID [facility] Last Admin: 08/19/17 10:45 Dose: 325 mg Finasteride (Proscar) 5 mg PO DAILY [facility] Last Admin: 08/19/17 10:45 Dose: 5 mg Gabapentin (Neurontin) 300 mg PO TID [facility] Last Admin: 08/19/17 13:18 Dose: 300 mg Guaifenesin (Robitussin) 200 mg PO Q4H PRN PRN Reason: Cough and congestion Sodium Chloride (Sodium Chloride 0.9%) 1,000 mls @ 75 mls/hr IV .[id number] [facility] Last Admin: 08/19/17 12:45 Dose: Not Given Levetiracetam (Keppra) 500 mg PO BID [facility] Last Admin: 08/19/17 10:45 Dose: 500 mg Losartan Potassium (Cozaar) 25 mg PO DAILY [facility] Last Admin: 08/19/17 10:45 Dose: 25 mg Pantoprazole Sodium (Protonix Inj) 40 mg IVP Q12H [facility] Last Admin: 08/19/17 10:45 Dose: 40 mg Potassium Chloride (K-Dur 20 Meq Er Tab) 20 meq PO DAILY [facility] Stop: 08/20/17 14:01 Last Admin: 08/19/17 11:28 Dose: 20 meq Rosuvastatin Calcium (Crestor) 10 mg PO HS [facility] Last Admin: 08/18/17 21:12 Dose: 10 mg Tamsulosin HCl (Flomax) 0.4 mg PO DAILY [facility] Last Admin: 08/19/17 10:45 Dose: 0.4 mg Zolpidem Tartrate (Ambien) 5 mg PO HS [facility] Last Admin: 08/18/17 21:12 Dose: 5 mg - Labs Labs: 08/19/17 08:21 08/19/17 08:21 PT 25.2 SECONDS (9.7-12.2) H 08/17/17 17:37 INR 2.2 08/17/17 17:37 APTT 31 SECONDS (21-34) 08/17/17 17:37 - Constitutional Appears: Well, No Acute Distress - Head Exam Head Exam: ATRAUMATIC, NORMOCEPHALIC - Eye Exam Eye Exam: Normal appearance - ENT Exam ENT Exam: Mucous Membranes Moist - Respiratory Exam Respiratory Exam: NORMAL BREATHING PATTERN - Cardiovascular Exam Cardiovascular Exam: RRR - GI/Abdominal Exam GI & Abdominal Exam: Soft. absent: Distended, Tenderness - Neurological Exam Neurological Exam: Alert, Awake, Oriented x3 - Skin Skin Exam: Dry, Warm Assessment and Plan - Assessment and Plan (Free Text) Assessment: 72M with mucinous adenocarcinoma s/p R hemicolectomy & SB resection in Jul, presenting with melena Plan: - H/H stable but slightly low this AM - pt asymptomatic; no further surgical intervention at this time - f/u with GI as outpt for colonoscopy in 6 months - ok to DC from surgical standpoint - d/w Dr. Amanda Alfred, PGY-3
--- NOTE | 2017-08-19 19:01 | CP.PCM.PN ---
Subjective - Date & Time of Evaluation Date of Evaluation: 08/19/17 Time of Evaluation: 10:20 - Subjective Subjective: clinically same Objective - Vital Signs/Intake and Output Vital Signs (last 24 hours): Temp Pulse Resp BP Pulse Ox 98.1 F 54 L 18 134/64 100 08/19/17 15:25 08/19/17 15:54 08/19/17 15:25 08/19/17 15:25 08/19/17 15:25 Intake and Output: 08/19/17 08/20/17 18:59 06:59 Intake Total 1075 Balance 1075 - Medications Medications: Current Medications Acetaminophen (Tylenol 325mg Tab) 650 mg PO Q6H PRN PRN Reason: Fever >100.4 F Albuterol/Ipratropium (Duoneb 3 Mg/0.5 Mg (3 Ml) Ud) 3 ml INH RQ2 PRN PRN Reason: Cough Aspirin (Aspirin Chewable) 81 mg PO DAILY [facility] Last Admin: 08/19/17 10:45 Dose: 81 mg Chlorthalidone (Hygroton) 25 mg PO DAILY [facility] Last Admin: 08/19/17 10:45 Dose: 25 mg Clopidogrel Bisulfate (Plavix) 75 mg PO DAILY [facility] Last Admin: 08/19/17 10:45 Dose: 75 mg Diltiazem HCl (Cardizem) 30 mg PO Q6 [facility] Last Admin: 08/19/17 17:44 Dose: Not Given Ferrous Sulfate (Feosol) 325 mg PO BID [facility] Last Admin: 08/19/17 17:43 Dose: 325 mg Finasteride (Proscar) 5 mg PO DAILY [facility] Last Admin: 08/19/17 10:45 Dose: 5 mg Gabapentin (Neurontin) 300 mg PO TID [facility] Last Admin: 08/19/17 17:43 Dose: 300 mg Guaifenesin (Robitussin) 200 mg PO Q4H PRN PRN Reason: Cough and congestion Sodium Chloride (Sodium Chloride 0.9%) 1,000 mls @ 75 mls/hr IV .[id number] [facility] Last Admin: 08/19/17 12:45 Dose: Not Given Levetiracetam (Keppra) 500 mg PO BID [facility] Last Admin: 08/19/17 17:43 Dose: 500 mg Losartan Potassium (Cozaar) 25 mg PO DAILY [facility] Last Admin: 08/19/17 10:45 Dose: 25 mg Pantoprazole Sodium (Protonix Inj) 40 mg IVP Q12H [facility] Last Admin: 08/19/17 10:45 Dose: 40 mg Potassium Chloride (K-Dur 20 Meq Er Tab) 20 meq PO DAILY [facility] Stop: 08/20/17 14:01 Last Admin: 08/19/17 11:28 Dose: 20 meq Rosuvastatin Calcium (Crestor) 10 mg PO HS [facility] Last Admin: 08/18/17 21:12 Dose: 10 mg Tamsulosin HCl (Flomax) 0.4 mg PO DAILY [facility] Last Admin: 08/19/17 10:45 Dose: 0.4 mg Zolpidem Tartrate (Ambien) 5 mg PO HS [facility] Last Admin: 08/18/17 21:12 Dose: 5 mg - Labs Labs: 08/19/17 08:21 08/19/17 08:21 PT 25.2 SECONDS (9.7-12.2) H 08/17/17 17:37 INR 2.2 08/17/17 17:37 APTT 31 SECONDS (21-34) 08/17/17 17:37 - Constitutional Appears: Well - Head Exam Head Exam: ATRAUMATIC, NORMAL INSPECTION, NORMOCEPHALIC - Eye Exam Eye Exam: EOMI, Normal appearance, PERRL Pupil Exam: NORMAL ACCOMODATION, PERRL - ENT Exam ENT Exam: Mucous Membranes Moist, Normal Exam - Neck Exam Neck Exam: Full ROM, Normal Inspection. absent: Lymphadenopathy - Respiratory Exam Respiratory Exam: Decreased Breath Sounds - Cardiovascular Exam Cardiovascular Exam: REGULAR RHYTHM, +S1, +S2 - GI/Abdominal Exam GI & Abdominal Exam: Soft, Diminished Bowel Sounds - Rectal Exam Rectal Exam: Deferred
[2017-08-20] MEDS: Ferric Sodium Gluconat Complex 62.5 mg/5 ml Vial IVPB SCH (09:44)
[2017-08-20] MEDS: Potassium Chloride 20 mEq ER Tab PO SCH (09:45)
[2017-08-20] MEDS: Sodium Chloride 0.9% 1,000 ML IV SCH ×2 (09:50→17:26)
--- NOTE | 2017-08-20 16:47 | CP.PCM.PN ---
Subjective - Date & Time of Evaluation Date of Evaluation: 08/20/17 Time of Evaluation: 10:20 - Subjective Subjective: clinically same Objective - Vital Signs/Intake and Output Vital Signs (last 24 hours): Temp Pulse Resp BP Pulse Ox 97.8 F 80 20 100/60 98 08/20/17 15:58 08/20/17 15:58 08/20/17 15:58 08/20/17 15:58 08/20/17 15:58 Intake and Output: 08/20/17 08/20/17 06:59 18:59 Intake Total 1500 900 Output Total 200 Balance 1300 900 - Medications Medications: Current Medications Acetaminophen (Tylenol 325mg Tab) 650 mg PO Q6H PRN PRN Reason: Fever >100.4 F Albuterol/Ipratropium (Duoneb 3 Mg/0.5 Mg (3 Ml) Ud) 3 ml INH RQ2 PRN PRN Reason: Cough Aspirin (Aspirin Chewable) 81 mg PO DAILY [facility] Last Admin: 08/20/17 09:45 Dose: 81 mg Chlorthalidone (Hygroton) 25 mg PO DAILY [facility] Last Admin: 08/20/17 09:44 Dose: 25 mg Clopidogrel Bisulfate (Plavix) 75 mg PO DAILY [facility] Last Admin: 08/20/17 09:45 Dose: 75 mg Diltiazem HCl (Cardizem) 30 mg PO Q6 [facility] Last Admin: 08/20/17 12:21 Dose: 30 mg Ferric Sodium Gluconate Complex (Ferrlecit) 125 mg IVPB DAILY [facility] Stop: 08/28/17 10:01 Last Admin: 08/20/17 09:44 Dose: 125 mg Finasteride (Proscar) 5 mg PO DAILY [facility] Last Admin: 08/20/17 09:45 Dose: 5 mg Gabapentin (Neurontin) 300 mg PO TID [facility] Last Admin: 08/20/17 14:21 Dose: 300 mg Guaifenesin (Robitussin) 200 mg PO Q4H PRN PRN Reason: Cough and congestion Sodium Chloride (Sodium Chloride 0.9%) 1,000 mls @ 75 mls/hr IV .[id number] [facility] Last Admin: 08/20/17 09:50 Dose: 75 mls/hr Levetiracetam (Keppra) 500 mg PO BID [facility] Last Admin: 08/20/17 09:45 Dose: 500 mg Losartan Potassium (Cozaar) 25 mg PO DAILY [facility] Last Admin: 08/20/17 09:45 Dose: 25 mg Pantoprazole Sodium (Protonix Inj) 40 mg IVP Q12H [facility] Last Admin: 08/20/17 09:46 Dose: 40 mg Rosuvastatin Calcium (Crestor) 10 mg PO HS [facility] Last Admin: 08/19/17 21:01 Dose: 10 mg Tamsulosin HCl (Flomax) 0.4 mg PO DAILY [facility] Last Admin: 08/20/17 09:45 Dose: 0.4 mg Zolpidem Tartrate (Ambien) 5 mg PO HS [facility] Last Admin: 08/19/17 21:01 Dose: 5 mg - Labs Labs: 08/19/17 08:21 08/19/17 08:21 PT 25.2 SECONDS (9.7-12.2) H 08/17/17 17:37 INR 2.2 08/17/17 17:37 APTT 31 SECONDS (21-34) 08/17/17 17:37
[2017-08-20 17:12] LABS: INR 1.4; PROTHROMBIN TIME 15.7 SECONDS (9.7-12.2)
--- NOTE | 2017-08-20 18:15 | CP.PCM.PN ---
Subjective - Date & Time of Evaluation Date of Evaluation: 08/19/17 Time of Evaluation: 12:40 - Subjective Subjective: No complaints, seen eating. Nursing reports to blood tinged stool. Objective - Vital Signs/Intake and Output Vital Signs (last 24 hours): Temp Pulse Resp BP Pulse Ox 97.8 F 80 20 100/60 98 08/20/17 15:58 08/20/17 15:58 08/20/17 15:58 08/20/17 15:58 08/20/17 15:58 Intake and Output: 08/20/17 08/20/17 06:59 18:59 Intake Total 1500 900 Output Total 200 Balance 1300 900 - Medications Medications: Current Medications Acetaminophen (Tylenol 325mg Tab) 650 mg PO Q6H PRN PRN Reason: Fever >100.4 F Albuterol/Ipratropium (Duoneb 3 Mg/0.5 Mg (3 Ml) Ud) 3 ml INH RQ2 PRN PRN Reason: Cough Aspirin (Aspirin Chewable) 81 mg PO DAILY [facility] Last Admin: 08/20/17 09:45 Dose: 81 mg Chlorthalidone (Hygroton) 25 mg PO DAILY [facility] Last Admin: 08/20/17 09:44 Dose: 25 mg Clopidogrel Bisulfate (Plavix) 75 mg PO DAILY [facility] Last Admin: 08/20/17 09:45 Dose: 75 mg Diltiazem HCl (Cardizem) 30 mg PO Q6 [facility] Last Admin: 08/20/17 12:21 Dose: 30 mg Ferric Sodium Gluconate Complex (Ferrlecit) 125 mg IVPB DAILY [facility] Stop: 08/28/17 10:01 Last Admin: 08/20/17 09:44 Dose: 125 mg Finasteride (Proscar) 5 mg PO DAILY [facility] Last Admin: 08/20/17 09:45 Dose: 5 mg Gabapentin (Neurontin) 300 mg PO TID [facility] Last Admin: 08/20/17 14:21 Dose: 300 mg Guaifenesin (Robitussin) 200 mg PO Q4H PRN PRN Reason: Cough and congestion Sodium Chloride (Sodium Chloride 0.9%) 1,000 mls @ 75 mls/hr IV .[id number] [facility] Last Admin: 08/20/17 17:26 Dose: Not Given Levetiracetam (Keppra) 500 mg PO BID [facility] Last Admin: 08/20/17 09:45 Dose: 500 mg Losartan Potassium (Cozaar) 25 mg PO DAILY [facility] Last Admin: 08/20/17 09:45 Dose: 25 mg Pantoprazole Sodium (Protonix Inj) 40 mg IVP Q12H [facility] Last Admin: 08/20/17 09:46 Dose: 40 mg Rosuvastatin Calcium (Crestor) 10 mg PO HS [facility] Last Admin: 08/19/17 21:01 Dose: 10 mg Tamsulosin HCl (Flomax) 0.4 mg PO DAILY [facility] Last Admin: 08/20/17 09:45 Dose: 0.4 mg Warfarin Sodium (Coumadin) 3 mg PO 1800 [facility] Stop: 08/20/17 18:01 Zolpidem Tartrate (Ambien) 5 mg PO HS [facility] Last Admin: 08/19/17 21:01 Dose: 5 mg - Labs Labs: 08/19/17 08:21 08/19/17 08:21 PT 15.7 SECONDS (9.7-12.2) H D 08/20/17 16:58 INR 1.4 D 08/20/17 16:58 APTT 31 SECONDS (21-34) 08/17/17 17:37 - Head Exam Head Exam: ATRAUMATIC - Eye Exam Eye Exam: Normal appearance - ENT Exam ENT Exam: Mucous Membranes Dry - Respiratory Exam Respiratory Exam: NORMAL BREATHING PATTERN - Cardiovascular Exam Cardiovascular Exam: +S1, +S2 - GI/Abdominal Exam GI & Abdominal Exam: Normal Bowel Sounds Assessment and Plan (1) Anemia Assessment & Plan: GI blood loss H/H slowly declining transfusion support PRN GI f/u f/u iron/b12/folate stores Status: Acute (2) Leukopenia Assessment & Plan: mild, no neutropenia Status: Acute (3) Coagulopathy Assessment & Plan: secondary to coumadin, now on hold Status: Acute (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
--- NOTE | 2017-08-20 18:18 | CP.PCM.PN ---
Subjective - Date & Time of Evaluation Date of Evaluation: 08/20/17 Time of Evaluation: 15:30 - Subjective Subjective: No complaints. Objective - Vital Signs/Intake and Output Vital Signs (last 24 hours): Temp Pulse Resp BP Pulse Ox 97.8 F 80 20 100/60 98 08/20/17 15:58 08/20/17 15:58 08/20/17 15:58 08/20/17 15:58 08/20/17 15:58 Intake and Output: 08/20/17 08/20/17 06:59 18:59 Intake Total 1500 900 Output Total 200 Balance 1300 900 - Medications Medications: Current Medications Acetaminophen (Tylenol 325mg Tab) 650 mg PO Q6H PRN PRN Reason: Fever >100.4 F Albuterol/Ipratropium (Duoneb 3 Mg/0.5 Mg (3 Ml) Ud) 3 ml INH RQ2 PRN PRN Reason: Cough Aspirin (Aspirin Chewable) 81 mg PO DAILY [facility] Last Admin: 08/20/17 09:45 Dose: 81 mg Chlorthalidone (Hygroton) 25 mg PO DAILY [facility] Last Admin: 08/20/17 09:44 Dose: 25 mg Clopidogrel Bisulfate (Plavix) 75 mg PO DAILY [facility] Last Admin: 08/20/17 09:45 Dose: 75 mg Diltiazem HCl (Cardizem) 30 mg PO Q6 [facility] Last Admin: 08/20/17 12:21 Dose: 30 mg Ferric Sodium Gluconate Complex (Ferrlecit) 125 mg IVPB DAILY [facility] Stop: 08/28/17 10:01 Last Admin: 08/20/17 09:44 Dose: 125 mg Finasteride (Proscar) 5 mg PO DAILY [facility] Last Admin: 08/20/17 09:45 Dose: 5 mg Gabapentin (Neurontin) 300 mg PO TID [facility] Last Admin: 08/20/17 14:21 Dose: 300 mg Guaifenesin (Robitussin) 200 mg PO Q4H PRN PRN Reason: Cough and congestion Sodium Chloride (Sodium Chloride 0.9%) 1,000 mls @ 75 mls/hr IV .[id number] [facility] Last Admin: 08/20/17 17:26 Dose: Not Given Levetiracetam (Keppra) 500 mg PO BID [facility] Last Admin: 08/20/17 09:45 Dose: 500 mg Losartan Potassium (Cozaar) 25 mg PO DAILY [facility] Last Admin: 08/20/17 09:45 Dose: 25 mg Pantoprazole Sodium (Protonix Inj) 40 mg IVP Q12H [facility] Last Admin: 08/20/17 09:46 Dose: 40 mg Rosuvastatin Calcium (Crestor) 10 mg PO HS [facility] Last Admin: 08/19/17 21:01 Dose: 10 mg Tamsulosin HCl (Flomax) 0.4 mg PO DAILY [facility] Last Admin: 08/20/17 09:45 Dose: 0.4 mg Warfarin Sodium (Coumadin) 3 mg PO 1800 [facility] Stop: 08/20/17 18:01 Zolpidem Tartrate (Ambien) 5 mg PO HS [facility] Last Admin: 08/19/17 21:01 Dose: 5 mg - Labs Labs: 08/19/17 08:21 08/19/17 08:21 PT 15.7 SECONDS (9.7-12.2) H D 08/20/17 16:58 INR 1.4 D 08/20/17 16:58 APTT 31 SECONDS (21-34) 08/17/17 17:37 - Head Exam Head Exam: ATRAUMATIC - Eye Exam Eye Exam: Normal appearance - ENT Exam ENT Exam: Mucous Membranes Dry - Respiratory Exam Respiratory Exam: NORMAL BREATHING PATTERN - Cardiovascular Exam Cardiovascular Exam: +S1, +S2 - GI/Abdominal Exam GI & Abdominal Exam: Normal Bowel Sounds Assessment and Plan (1) Anemia Assessment & Plan: GI blood loss, GI f/u H/H slowly declining f/u iron/b12/folate stores transfusion support PRN Status: Acute (2) Leukopenia Assessment & Plan: mild no neutropenia Status: Acute (3) Coagulopathy Assessment & Plan: coumadin on hold improving Status: Acute (4) Mucinous adenocarcinoma Assessment & Plan: s/p surgery endoscopy to evaluate for synchronous disease not a chemo candidate Status: Acute
[2017-08-21 07:33] LABS: INR 1.5; PROTHROMBIN TIME 17.4 SECONDS (9.7-12.2)
[2017-08-21 07:36] LABS: BASO % 0.3 % (0.0-2.0); EOS # 0.1 K/uL (0.0-0.7); EOS % 0.4 % (0.0-4.0); HEMOGLOBIN 8.5 g/dL (12.0-18.0); LYMPH # 1.1 K/uL (1.0-4.3); LYMPH % 7.6 % (20.0-40.0); MEAN CELL VOLUME 76.2 fL (80.0-94.0); MEAN CORPUSCULAR HGB CONC 32.9 g/dL (33.0-37.0); MEAN PLATELET VOLUME 8.3 fL (7.2-11.7); MONO # 0.7 K/uL (0.0-0.8); MONO % 4.7 % (0.0-10.0); NEUT # 12.3 K/uL (1.8-7.0); PLATELET COUNT 249 K/uL (130-400); RBC 3.39 Mil/uL (4.40-5.90); RED CELL DISTRIBUTION WIDTH 17.3 % (11.5-14.5)
[2017-08-21 07:38] LABS: WHITE BLOOD COUNT 14.1 K/uL (4.8-10.8)
[2017-08-21 09:08] LABS: FOLATE 7.3 ng/mL
[2017-08-21 09:28] LABS: ANISOCYTOSIS SLIGHT; LYMPHOCYTE 5 % (20-40); MONOCYTE 2 % (0-10); NEUTROPHIL 93 % (50-75); PLATELET ESTIMATE NORMAL (NORMAL); TOTAL CELLS COUNTED 100
[2017-08-21 09:29] LABS: HYPOCHROMIC SLIGHT; OVALOCYTES SLIGHT; POIKILOCYTOSIS SLIGHT; TARGET CELLS SLIGHT
[2017-08-21 09:30] LABS: TEARDROP CELLS SLIGHT
[2017-08-21] MEDS: Ferric Sodium Gluconat Complex 62.5 mg/5 ml Vial IVPB SCH (10:31)
--- NOTE | 2017-08-21 13:29 | CP.PCM.PN ---
Subjective - Date & Time of Evaluation Date of Evaluation: 08/21/17 Time of Evaluation: 09:00 - Subjective Subjective: clinically same Objective - Vital Signs/Intake and Output Vital Signs (last 24 hours): Temp Pulse Resp BP Pulse Ox 98.2 F 80 20 118/61 97 08/21/17 07:20 08/21/17 07:20 08/21/17 07:20 08/21/17 07:20 08/21/17 07:20 Intake and Output: 08/21/17 08/21/17 06:59 18:59 Intake Total 1320 Balance 1320 - Medications Medications: Current Medications Acetaminophen (Tylenol 325mg Tab) 650 mg PO Q6H PRN PRN Reason: Fever >100.4 F Last Admin: 08/20/17 21:16 Dose: 650 mg Albuterol/Ipratropium (Duoneb 3 Mg/0.5 Mg (3 Ml) Ud) 3 ml INH RQ2 PRN PRN Reason: Cough Aspirin (Aspirin Chewable) 81 mg PO DAILY [facility] Last Admin: 08/21/17 10:27 Dose: 81 mg Chlorthalidone (Hygroton) 25 mg PO DAILY [facility] Last Admin: 08/20/17 09:44 Dose: 25 mg Clopidogrel Bisulfate (Plavix) 75 mg PO DAILY [facility] Last Admin: 08/21/17 10:27 Dose: 75 mg Diltiazem HCl (Cardizem) 30 mg PO Q6 [facility] Last Admin: 08/21/17 12:05 Dose: 30 mg Ferric Sodium Gluconate Complex (Ferrlecit) 125 mg IVPB DAILY [facility] Stop: 08/28/17 10:01 Last Admin: 08/21/17 10:31 Dose: 125 mg Finasteride (Proscar) 5 mg PO DAILY [facility] Last Admin: 08/21/17 10:28 Dose: 5 mg Gabapentin (Neurontin) 300 mg PO TID [facility] Last Admin: 08/21/17 10:27 Dose: 300 mg Guaifenesin (Robitussin) 200 mg PO Q4H PRN PRN Reason: Cough and congestion Levetiracetam (Keppra) 500 mg PO BID [facility] Last Admin: 08/21/17 10:27 Dose: 500 mg Losartan Potassium (Cozaar) 25 mg PO DAILY [facility] Last Admin: 08/21/17 10:28 Dose: 25 mg Pantoprazole Sodium (Protonix Inj) 40 mg IVP Q12H [facility] Last Admin: 08/21/17 10:31 Dose: 40 mg Rosuvastatin Calcium (Crestor) 10 mg PO [facility] Last Admin: 08/20/17 21:18 Dose: 10 mg Tamsulosin HCl (Flomax) 0.4 mg PO DAILY [facility] Last Admin: 08/21/17 10:28 Dose: 0.4 mg Zolpidem Tartrate (Ambien) 5 mg PO [facility] Last Admin: 08/20/17 21:19 Dose: 5 mg - Labs Labs: 08/21/17 07:17 08/19/17 08:21 PT 17.4 SECONDS (9.7-12.2) H 08/21/17 07:17 INR 1.5 08/21/17 07:17 APTT 31 SECONDS (21-34) 08/17/17 17:37 - Constitutional Appears: Well - Head Exam Head Exam: ATRAUMATIC, NORMAL INSPECTION, NORMOCEPHALIC - Eye Exam Eye Exam: EOMI, Normal appearance, PERRL Pupil Exam: NORMAL ACCOMODATION, PERRL - ENT Exam ENT Exam: Mucous Membranes Moist, Normal Exam - Neck Exam Neck Exam: Full ROM, Normal Inspection. absent: Lymphadenopathy - Respiratory Exam Respiratory Exam: Decreased Breath Sounds - Cardiovascular Exam Cardiovascular Exam: REGULAR RHYTHM, +S1, +S2 - GI/Abdominal Exam GI & Abdominal Exam: Soft, Diminished Bowel Sounds - Rectal Exam Rectal Exam: Deferred
--- NOTE | 2017-08-21 13:58 | CP.PCM.PN ---
Subjective - Date & Time of Evaluation Date of Evaluation: 08/21/17 Time of Evaluation: 12:00 - Subjective Subjective: No complaints. Objective - Vital Signs/Intake and Output Vital Signs (last 24 hours): Temp Pulse Resp BP Pulse Ox 98.2 F 80 20 118/61 97 08/21/17 07:20 08/21/17 07:20 08/21/17 07:20 08/21/17 07:20 08/21/17 07:20 Intake and Output: 08/21/17 08/21/17 06:59 18:59 Intake Total 1320 Balance 1320 - Medications Medications: Current Medications Acetaminophen (Tylenol 325mg Tab) 650 mg PO Q6H PRN PRN Reason: Fever >100.4 F Last Admin: 08/20/17 21:16 Dose: 650 mg Albuterol/Ipratropium (Duoneb 3 Mg/0.5 Mg (3 Ml) Ud) 3 ml INH RQ2 PRN PRN Reason: Cough Aspirin (Aspirin Chewable) 81 mg PO DAILY [facility] Last Admin: 08/21/17 10:27 Dose: 81 mg Chlorthalidone (Hygroton) 25 mg PO DAILY [facility] Last Admin: 08/20/17 09:44 Dose: 25 mg Clopidogrel Bisulfate (Plavix) 75 mg PO DAILY [facility] Last Admin: 08/21/17 10:27 Dose: 75 mg Diltiazem HCl (Cardizem) 30 mg PO Q6 [facility] Last Admin: 08/21/17 12:05 Dose: 30 mg Ferric Sodium Gluconate Complex (Ferrlecit) 125 mg IVPB DAILY [facility] Stop: 08/28/17 10:01 Last Admin: 08/21/17 10:31 Dose: 125 mg Finasteride (Proscar) 5 mg PO DAILY [facility] Last Admin: 08/21/17 10:28 Dose: 5 mg Gabapentin (Neurontin) 300 mg PO TID [facility] Last Admin: 08/21/17 10:27 Dose: 300 mg Guaifenesin (Robitussin) 200 mg PO Q4H PRN PRN Reason: Cough and congestion Levetiracetam (Keppra) 500 mg PO BID [facility] Last Admin: 08/21/17 10:27 Dose: 500 mg Losartan Potassium (Cozaar) 25 mg PO DAILY [facility] Last Admin: 08/21/17 10:28 Dose: 25 mg Pantoprazole Sodium (Protonix Inj) 40 mg IVP Q12H [facility] Last Admin: 08/21/17 10:31 Dose: 40 mg Rosuvastatin Calcium (Crestor) 10 mg PO HS [facility] Last Admin: 08/20/17 21:18 Dose: 10 mg Tamsulosin HCl (Flomax) 0.4 mg PO DAILY [facility] Last Admin: 08/21/17 10:28 Dose: 0.4 mg Zolpidem Tartrate (Ambien) 5 mg PO HS [facility] Last Admin: 08/20/17 21:19 Dose: 5 mg - Labs Labs: 08/21/17 07:17 08/19/17 08:21 PT 17.4 SECONDS (9.7-12.2) H 08/21/17 07:17 INR 1.5 08/21/17 07:17 APTT 31 SECONDS (21-34) 08/17/17 17:37 - Head Exam Head Exam: ATRAUMATIC - Eye Exam Eye Exam: Normal appearance - ENT Exam ENT Exam: Mucous Membranes Dry - Respiratory Exam Respiratory Exam: NORMAL BREATHING PATTERN - Cardiovascular Exam Cardiovascular Exam: +S1, +S2 - GI/Abdominal Exam GI & Abdominal Exam: Normal Bowel Sounds Assessment and Plan (1) Anemia Assessment & Plan: chronic disease, GI blood loss H/H stable on IV iron Status: Acute (2) Coagulopathy Assessment & Plan: was on coumadin now on hold Status: Acute (3) Mucinous adenocarcinoma Assessment & Plan: GI w/u for synchronous lesion s/p surgery not a chemo candidate no overt evidence of metastasis by CT Status: Acute
[2017-08-21] MEDS: Sodium Chloride 0.9% 1,000 ML IV SCH (18:45)
[2017-08-22] MEDS: Ferric Sodium Gluconat Complex 62.5 mg/5 ml Vial IVPB SCH (09:01)
[2017-08-22 14:20] LABS: INR 1.5; PROTHROMBIN TIME 17.2 SECONDS (9.7-12.2)
--- NOTE | 2017-08-22 14:41 | CP.PCM.PN ---
Subjective - Date & Time of Evaluation Date of Evaluation: 08/22/17 Time of Evaluation: 10:40 - Subjective Subjective: clinically same Objective - Vital Signs/Intake and Output Vital Signs (last 24 hours): Temp Pulse Resp BP Pulse Ox 98.5 F 71 20 125/60 98 08/22/17 07:05 08/22/17 07:05 08/22/17 07:05 08/22/17 07:05 08/22/17 07:05 Intake and Output: 08/22/17 08/22/17 06:59 18:59 Intake Total 1700 Output Total 1 Balance 1699 - Medications Medications: Current Medications Acetaminophen (Tylenol 325mg Tab) 650 mg PO Q6H PRN PRN Reason: Fever >100.4 F Last Admin: 08/20/17 21:16 Dose: 650 mg Albuterol/Ipratropium (Duoneb 3 Mg/0.5 Mg (3 Ml) Ud) 3 ml INH RQ2 PRN PRN Reason: Cough Aspirin (Aspirin Chewable) 81 mg PO DAILY [facility] Last Admin: 08/22/17 09:06 Dose: 81 mg Chlorthalidone (Hygroton) 25 mg PO DAILY [facility] Last Admin: 08/22/17 09:06 Dose: 25 mg Clopidogrel Bisulfate (Plavix) 75 mg PO DAILY [facility] Last Admin: 08/22/17 09:06 Dose: 75 mg Diltiazem HCl (Cardizem) 30 mg PO Q6 [facility] Last Admin: 08/22/17 12:20 Dose: Not Given Ferric Sodium Gluconate Complex (Ferrlecit) 125 mg IVPB DAILY [facility] Stop: 08/28/17 10:01 Last Admin: 08/22/17 09:01 Dose: 125 mg Finasteride (Proscar) 5 mg PO DAILY [facility] Last Admin: 08/22/17 09:06 Dose: 5 mg Gabapentin (Neurontin) 300 mg PO TID [facility] Last Admin: 08/22/17 14:02 Dose: 300 mg Guaifenesin (Robitussin) 200 mg PO Q4H PRN PRN Reason: Cough and congestion Last Admin: 08/22/17 00:36 Dose: 200 mg Levetiracetam (Keppra) 500 mg PO BID [facility] Last Admin: 08/22/17 09:06 Dose: 500 mg Losartan Potassium (Cozaar) 25 mg PO DAILY [facility] Last Admin: 08/22/17 09:06 Dose: 25 mg Pantoprazole Sodium (Protonix Inj) 40 mg IVP Q12H [facility] Last Admin: 08/22/17 09:06 Dose: 40 mg Rosuvastatin Calcium (Crestor) 10 mg PO HS [facility] Last Admin: 08/21/17 22:20 Dose: 10 mg Tamsulosin HCl (Flomax) 0.4 mg PO DAILY [facility] Last Admin: 08/22/17 09:06 Dose: 0.4 mg Warfarin Sodium (Coumadin) 5 mg PO 1800 [facility] Stop: 08/22/17 18:01 Zolpidem Tartrate (Ambien) 5 mg PO HS [facility] Last Admin: 08/21/17 22:20 Dose: 5 mg - Labs Labs: 08/21/17 07:17 08/19/17 08:21 PT 17.2 SECONDS (9.7-12.2) H 08/22/17 14:05 INR 1.5 08/22/17 14:05 APTT 31 SECONDS (21-34) 08/17/17 17:37 - Constitutional Appears: Well - Head Exam Head Exam: ATRAUMATIC, NORMAL INSPECTION, NORMOCEPHALIC - Eye Exam Eye Exam: EOMI, Normal appearance, PERRL Pupil Exam: NORMAL ACCOMODATION, PERRL - ENT Exam ENT Exam: Mucous Membranes Moist, Normal Exam - Neck Exam Neck Exam: Full ROM, Normal Inspection. absent: Lymphadenopathy - Respiratory Exam Respiratory Exam: Decreased Breath Sounds - Cardiovascular Exam Cardiovascular Exam: REGULAR RHYTHM, +S1, +S2 - GI/Abdominal Exam GI & Abdominal Exam: Soft, Diminished Bowel Sounds - Rectal Exam Rectal Exam: Deferred
--- NOTE | 2017-08-22 22:28 | CP.PCM.PN ---
Subjective - Date & Time of Evaluation Date of Evaluation: 08/22/17 Time of Evaluation: 18:45 - Subjective Subjective: No complaints, appears comfortable Objective - Vital Signs/Intake and Output Vital Signs (last 24 hours): Temp Pulse Resp BP Pulse Ox 97.8 F 66 20 114/62 98 08/22/17 15:00 08/22/17 17:45 08/22/17 15:00 08/22/17 17:45 08/22/17 15:00 - Medications Medications: Current Medications Acetaminophen (Tylenol 325mg Tab) 650 mg PO Q6H PRN PRN Reason: Fever >100.4 F Last Admin: 08/20/17 21:16 Dose: 650 mg Aspirin (Aspirin Chewable) 81 mg PO DAILY [facility] Last Admin: 08/22/17 09:06 Dose: 81 mg Chlorthalidone (Hygroton) 25 mg PO DAILY [facility] Last Admin: 08/22/17 09:06 Dose: 25 mg Clopidogrel Bisulfate (Plavix) 75 mg PO DAILY [facility] Last Admin: 08/22/17 09:06 Dose: 75 mg Diltiazem HCl (Cardizem) 30 mg PO Q6 [facility] Last Admin: 08/22/17 17:43 Dose: 30 mg Ferric Sodium Gluconate Complex (Ferrlecit) 125 mg IVPB DAILY [facility] Stop: 08/28/17 10:01 Last Admin: 08/22/17 09:01 Dose: 125 mg Finasteride (Proscar) 5 mg PO DAILY [facility] Last Admin: 08/22/17 09:06 Dose: 5 mg Gabapentin (Neurontin) 300 mg PO TID [facility] Last Admin: 08/22/17 17:44 Dose: 300 mg Guaifenesin (Robitussin) 200 mg PO Q4H PRN PRN Reason: Cough and congestion Last Admin: 08/22/17 00:36 Dose: 200 mg Levetiracetam (Keppra) 500 mg PO BID [facility] Last Admin: 08/22/17 17:44 Dose: 500 mg Losartan Potassium (Cozaar) 25 mg PO DAILY [facility] Last Admin: 08/22/17 09:06 Dose: 25 mg Pantoprazole Sodium (Protonix Inj) 40 mg IVP Q12H [facility] Last Admin: 08/22/17 21:10 Dose: 40 mg Rosuvastatin Calcium (Crestor) 10 mg PO HS [facility] Last Admin: 08/22/17 21:10 Dose: 10 mg Tamsulosin HCl (Flomax) 0.4 mg PO DAILY [facility] Last Admin: 08/22/17 09:06 Dose: 0.4 mg Zolpidem Tartrate (Ambien) 5 mg PO HS [facility] Last Admin: 08/22/17 21:10 Dose: 5 mg - Labs Labs: 08/21/17 07:17 08/19/17 08:21 PT 17.2 SECONDS (9.7-12.2) H 08/22/17 14:05 INR 1.5 08/22/17 14:05 APTT 31 SECONDS (21-34) 08/17/17 17:37 - Head Exam Head Exam: ATRAUMATIC - Eye Exam Eye Exam: Normal appearance - ENT Exam ENT Exam: Mucous Membranes Dry - Respiratory Exam Respiratory Exam: NORMAL BREATHING PATTERN - Cardiovascular Exam Cardiovascular Exam: +S1, +S2 - GI/Abdominal Exam GI & Abdominal Exam: Normal Bowel Sounds Assessment and Plan (1) Anemia Assessment & Plan: chronic disease, GI blood loss H/H stable on IV iron Status: Acute (2) Coagulopathy Assessment & Plan: secondary to anticoagulation restarted on coumadin Status: Acute (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
[2017-08-23 08:43] LABS: INR 1.4; PROTHROMBIN TIME 15.3 SECONDS (9.7-12.2)
[2017-08-23] MEDS: Ferric Sodium Gluconat Complex 62.5 mg/5 ml Vial IVPB SCH (09:12)
--- NOTE | 2017-08-23 17:47 | CP.PCM.PN ---
Subjective - Date & Time of Evaluation Date of Evaluation: 08/23/17 Time of Evaluation: 09:40 - Subjective Subjective: clinically same Objective - Vital Signs/Intake and Output Vital Signs (last 24 hours): Temp Pulse Resp BP Pulse Ox 97.7 F 60 20 111/51 L 100 08/23/17 16:00 08/23/17 16:00 08/23/17 16:00 08/23/17 16:00 08/23/17 16:00 Intake and Output: 08/23/17 08/23/17 06:59 18:59 Intake Total 320 Balance 320 - Medications Medications: Current Medications Acetaminophen (Tylenol 325mg Tab) 650 mg PO Q6H PRN PRN Reason: Fever >100.4 F Last Admin: 08/20/17 21:16 Dose: 650 mg Aspirin (Aspirin Chewable) 81 mg PO DAILY [facility] Last Admin: 08/23/17 09:12 Dose: 81 mg Chlorthalidone (Hygroton) 25 mg PO DAILY [facility] Last Admin: 08/23/17 09:12 Dose: 25 mg Clopidogrel Bisulfate (Plavix) 75 mg PO DAILY [facility] Last Admin: 08/23/17 09:12 Dose: 75 mg Diltiazem HCl (Cardizem) 30 mg PO Q6 [facility] Last Admin: 08/23/17 12:43 Dose: Not Given Ferric Sodium Gluconate Complex (Ferrlecit) 125 mg IVPB DAILY [facility] Stop: 08/28/17 10:01 Last Admin: 08/23/17 09:12 Dose: 125 mg Finasteride (Proscar) 5 mg PO DAILY [facility] Last Admin: 08/23/17 09:16 Dose: 5 mg Gabapentin (Neurontin) 300 mg PO TID [facility] Last Admin: 08/23/17 13:34 Dose: 300 mg Guaifenesin (Robitussin) 200 mg PO Q4H PRN PRN Reason: Cough and congestion Last Admin: 08/22/17 00:36 Dose: 200 mg Levetiracetam (Keppra) 500 mg PO BID [facility] Last Admin: 08/23/17 09:12 Dose: 500 mg Losartan Potassium (Cozaar) 25 mg PO DAILY [facility] Last Admin: 08/23/17 09:12 Dose: 25 mg Pantoprazole Sodium (Protonix Ec Tab) 40 mg PO BID [facility] Rosuvastatin Calcium (Crestor) 10 mg PO HS [facility] Last Admin: 08/22/17 21:10 Dose: 10 mg Tamsulosin HCl (Flomax) 0.4 mg PO DAILY [facility] Last Admin: 08/23/17 09:12 Dose: 0.4 mg Warfarin Sodium (Coumadin) 7.5 mg PO 1800 [facility] Stop: 08/23/17 18:01 Zolpidem Tartrate (Ambien) 5 mg PO HS [facility] Last Admin: 08/22/17 21:10 Dose: 5 mg - Labs Labs: 08/21/17 07:17 08/19/17 08:21 PT 15.3 SECONDS (9.7-12.2) H 08/23/17 08:26 INR 1.4 08/23/17 08:26 APTT 31 SECONDS (21-34) 08/17/17 17:37 - Constitutional Appears: Well - Head Exam Head Exam: ATRAUMATIC, NORMAL INSPECTION, NORMOCEPHALIC - Eye Exam Eye Exam: EOMI, Normal appearance, PERRL Pupil Exam: NORMAL ACCOMODATION, PERRL - ENT Exam ENT Exam: Mucous Membranes Moist, Normal Exam - Neck Exam Neck Exam: Full ROM, Normal Inspection. absent: Lymphadenopathy - Respiratory Exam Respiratory Exam: Decreased Breath Sounds - Cardiovascular Exam Cardiovascular Exam: REGULAR RHYTHM, +S1, +S2 - GI/Abdominal Exam GI & Abdominal Exam: Soft, Diminished Bowel Sounds - Rectal Exam Rectal Exam: Deferred
[2017-08-23] MEDS: Pantoprazole 40 mg EC Tab PO SCH (18:15)
[2017-08-24 07:11] LABS: INR 1.6; PROTHROMBIN TIME 18.1 SECONDS (9.7-12.2)
[2017-08-24] MEDS: Pantoprazole 40 mg EC Tab PO SCH ×2 (09:21→18:03)
[2017-08-24] MEDS: Ferric Sodium Gluconat Complex 62.5 mg/5 ml Vial IVPB SCH (09:23)
--- NOTE | 2017-08-24 10:51 | VASCLAB ---
PROCEDURE: Left Upper Extremity Venous Duplex Exam HISTORY: Pain in limb, redness, r/o DVT PRIORS: No previous UEV. TECHNIQUE: Left upper extremity, internal jugular, subclavian, axillary, brachial, ulnar, radial, basilic and upper cephalic veins were evaluated. Flow was assessed with color Doppler, compressibility, assessment of phasic flow and augmentation response. Report prepared by GALINA Carr FINDINGS: LEFT: 1. Internal Jugular: 1.1. Compressibility - Fully compressible: Thrombus - None : Flow - Phasic: Augmentation -Normal: Reflux - None. 2. Subclavian: 2.1. Compressibility - Fully compressible: Thrombus - None : Flow - Phasic: Augmentation -Normal: Reflux - None. 3. Axillary: 3.1. Compressibility - Fully compressible: Thrombus - None : Flow - Phasic: Augmentation -Normal: Reflux - None. 4. Brachial: 4.1. Compressibility - Fully compressible: Thrombus - None: Flow - Phasic: Augmentation -Normal: Reflux - None. 5. Ulnar: 5.1. Compressibility - Fully compressible: Thrombus - None: Flow - Phasic: Augmentation -Normal: Reflux - None. 6. Radial: 6.1. Compressibility - Fully compressible: Thrombus - None: Flow - Phasic: Augmentation - Normal: Reflux - None. 7. Cephalic: 7.1. Not visualized. 8. Basilic: 8.1. Compressibility - Fully compressible: Thrombus - None: Flow - Phasic: Augmentation -Normal: Reflux - None. OTHER FINDINGS: Left: None. IMPRESSION: Left: No evidence of vein thrombosis of the left upper extremity with excellent venous flow. Normal valve function noted of the left side. Normal venous flow noted in the right internal jugular and right subclavian veins.
--- NOTE | 2017-08-24 16:08 | CP.PCM.PN ---
Subjective - Date & Time of Evaluation Date of Evaluation: 08/24/17 Time of Evaluation: 11:40 - Subjective Subjective: clinically same Objective - Vital Signs/Intake and Output Vital Signs (last 24 hours): Temp Pulse Resp BP Pulse Ox 97.5 F L 65 20 116/67 100 08/24/17 15:53 08/24/17 15:53 08/24/17 15:53 08/24/17 15:53 08/24/17 15:53 Intake and Output: 08/24/17 08/24/17 06:59 18:59 Intake Total 680 Balance 680 - Medications Medications: Current Medications Acetaminophen (Tylenol 325mg Tab) 650 mg PO Q6H PRN PRN Reason: Fever >100.4 F Last Admin: 08/20/17 21:16 Dose: 650 mg Aspirin (Aspirin Chewable) 81 mg PO DAILY [facility] Last Admin: 08/24/17 09:20 Dose: 81 mg Chlorthalidone (Hygroton) 25 mg PO DAILY [facility] Last Admin: 08/24/17 09:21 Dose: 25 mg Clopidogrel Bisulfate (Plavix) 75 mg PO DAILY [facility] Last Admin: 08/24/17 09:21 Dose: 75 mg Diltiazem HCl (Cardizem) 30 mg PO Q6 [facility] Last Admin: 08/24/17 06:20 Dose: Not Given Ferric Sodium Gluconate Complex (Ferrlecit) 125 mg IVPB DAILY [facility] Stop: 08/28/17 10:01 Last Admin: 08/24/17 09:23 Dose: Not Given Finasteride (Proscar) 5 mg PO DAILY [facility] Last Admin: 08/24/17 10:19 Dose: 5 mg Gabapentin (Neurontin) 300 mg PO TID [facility] Last Admin: 08/24/17 09:20 Dose: 300 mg Guaifenesin (Robitussin) 200 mg PO Q4H PRN PRN Reason: Cough and congestion Last Admin: 08/22/17 00:36 Dose: 200 mg Levetiracetam (Keppra) 500 mg PO BID [facility] Last Admin: 08/24/17 09:21 Dose: 500 mg Losartan Potassium (Cozaar) 25 mg PO DAILY [facility] Last Admin: 08/24/17 09:20 Dose: 25 mg Pantoprazole Sodium (Protonix Ec Tab) 40 mg PO BID [facility] Last Admin: 03/19/18 09:21 Dose: 40 mg Rosuvastatin Calcium (Crestor) 10 mg PO HS [facility] Last Admin: 08/23/17 22:20 Dose: 10 mg Tamsulosin HCl (Flomax) 0.4 mg PO DAILY [facility] Last Admin: 08/24/17 09:21 Dose: 0.4 mg Warfarin Sodium (Coumadin) 7.5 mg PO 1800 [facility] Stop: 08/24/17 18:01 Zolpidem Tartrate (Ambien) 5 mg PO HS [facility] Last Admin: 08/23/17 22:19 Dose: 5 mg - Labs Labs: 08/21/17 07:17 08/19/17 08:21 PT 18.1 SECONDS (9.7-12.2) H 08/24/17 06:51 INR 1.6 08/24/17 06:51 APTT 31 SECONDS (21-34) 08/17/17 17:37 - Constitutional Appears: Well - Head Exam Head Exam: ATRAUMATIC, NORMAL INSPECTION, NORMOCEPHALIC - Eye Exam Eye Exam: EOMI, Normal appearance, PERRL Pupil Exam: NORMAL ACCOMODATION, PERRL - ENT Exam ENT Exam: Mucous Membranes Moist, Normal Exam - Neck Exam Neck Exam: Full ROM, Normal Inspection. absent: Lymphadenopathy - Respiratory Exam Respiratory Exam: Decreased Breath Sounds - Cardiovascular Exam Cardiovascular Exam: REGULAR RHYTHM, +S1, +S2 - GI/Abdominal Exam GI & Abdominal Exam: Soft, Diminished Bowel Sounds - Rectal Exam Rectal Exam: Deferred Assessment and Plan - Assessment and Plan (Free Text) Plan: 4 discharged Doppler negative CBC CMP is ordered Patient's family refusing for him to go to the rehab Follow-up with the consult and Follow-up with the social sciences professor Possible discharge tomorrow
[2017-08-25 05:47] VITALS: TEMP 98.1; O2SAT 100
[2017-08-25 06:33] LABS: INR 2.5; PROTHROMBIN TIME 29.1 SECONDS (9.7-12.2)
[2017-08-25 07:55] VITALS: BP 115/63; PULSE 104; RESP 18
[2017-08-25] MEDS: Pantoprazole 40 mg EC Tab PO SCH (09:33)
[2017-08-25] MEDS: Ferric Sodium Gluconat Complex 62.5 mg/5 ml Vial IVPB SCH (09:34)
--- NOTE | 2017-08-25 14:47 | CP.PCM.PN ---
Subjective - Date & Time of Evaluation Date of Evaluation: 08/25/17 Time of Evaluation: 14:47 - Subjective Subjective: PT CLEARED FOR D/C TODAY PER DR. MIR. TO F/U WITH DR. MIR IN THE OFFICE WITHIN 5-7 DAYS. I HAVE PROVIDED THE PT WITH ALL RX, HE CAME FROM REHAB AND HAS NO MEDS AT HOME. CONTINUE COUMADIN 5MG PO DAILY PER DR. MIR. PT TO ALSO F/U WITH GI WITHIN 1 WEEK OF D/C. SW TO ARRANGE TRANSPORTATION HOME FOR THIS AFTERNOON. NO FURTHER ORDERS. D/C PLAN: -FOLLOW UP WITH DR. Inocencio MIR WITHIN 5-7 DAYS OF DISCHARGE---CALL THE OFFICE TO MAKE THE APPOINTMENT. -FOLLOW UP WITH DR. FALLON IN THE OFFICE WITHIN 1 WEEK OF DISCHARGE---CALL THE OFFICE TO MAKE THE APPOINTMENT. -FOLLOW UP WITH DR. BROWN (STOMACH DOCTOR) IN THE OFFICE WITHIN 10-14 DAYS OF DISCHARGE---CALL FOR APPOINTMENT TIME. PER DR. BROWN, YOU "Will need surveillance colonoscopy within 6 months." THOSE ARRANGEMENTS WILL BE MADE WITH HIM. -CONTINUE ALL MEDICATIONS EXACTLY PRESCRIBED. YOU HAVE BEEN PRESCRIBED ALL OF THE SAME MEDICATIONS THAT YOU WERE TAKING AT REHAB AND IN THE HOSPITAL. -FOR FURTHER CONCERNS OR QUESTIONS, CONTACT DR. MIR'S OFFICE. Objective - Vital Signs/Intake and Output Vital Signs (last 24 hours): Temp Pulse Resp BP Pulse Ox 98.1 F 104 H 18 115/63 100 08/25/17 07:00 08/25/17 07:00 08/25/17 07:00 08/25/17 07:00 08/25/17 07:00 Intake and Output: 08/25/17 08/25/17 06:59 18:59 Intake Total 600 Balance 600 - Medications Medications: Current Medications Acetaminophen (Tylenol 325mg Tab) 650 mg PO Q6H PRN PRN Reason: Fever >100.4 F Last Admin: 08/20/17 21:16 Dose: 650 mg Aspirin (Aspirin Chewable) 81 mg PO DAILY [facility] Last Admin: 08/25/17 09:33 Dose: 81 mg Chlorthalidone (Hygroton) 25 mg PO DAILY [facility] Last Admin: 08/25/17 09:33 Dose: 25 mg Clopidogrel Bisulfate (Plavix) 75 mg PO DAILY [facility] Last Admin: 08/25/17 09:33 Dose: 75 mg Diltiazem HCl (Cardizem) 30 mg PO Q6 [facility] Last Admin: 08/25/17 12:51 Dose: 30 mg Ferric Sodium Gluconate Complex (Ferrlecit) 125 mg IVPB DAILY [facility] Stop: 08/28/17 10:01 Last Admin: 08/25/17 09:34 Dose: 125 mg Finasteride (Proscar) 5 mg PO DAILY [facility] Last Admin: 08/25/17 09:38 Dose: 5 mg Gabapentin (Neurontin) 300 mg PO TID [facility] Last Admin: 08/25/17 13:48 Dose: 300 mg Guaifenesin (Robitussin) 200 mg PO Q4H PRN PRN Reason: Cough and congestion Last Admin: 08/22/17 00:36 Dose: 200 mg Levetiracetam (Keppra) 500 mg PO BID [facility] Last Admin: 08/25/17 09:34 Dose: 500 mg Losartan Potassium (Cozaar) 25 mg PO DAILY [facility] Last Admin: 08/25/17 09:33 Dose: 25 mg Pantoprazole Sodium (Protonix Ec Tab) 40 mg PO BID [facility] Last Admin: 08/25/17 09:33 Dose: 40 mg Rosuvastatin Calcium (Crestor) 10 mg PO HS [facility] Last Admin: 08/24/17 21:49 Dose: 10 mg Tamsulosin HCl (Flomax) 0.4 mg PO DAILY [facility] Last Admin: 08/25/17 09:34 Dose: 0.4 mg Zolpidem Tartrate (Ambien) 5 mg PO HS [facility] Last Admin: 08/24/17 21:49 Dose: 5 mg - Labs Labs: 08/21/17 07:17 08/19/17 08:21 PT 29.1 SECONDS (9.7-12.2) H D 08/25/17 06:19 INR 2.5 D 08/25/17 06:19 APTT 31 SECONDS (21-34) 08/17/17 17:37
--- NOTE | 2017-08-25 15:44 | CP.PCM.PN ---
Subjective - Date & Time of Evaluation Date of Evaluation: 08/25/17 Time of Evaluation: 11:00 - Subjective Subjective: clinically same Objective - Vital Signs/Intake and Output Vital Signs (last 24 hours): Temp Pulse Resp BP Pulse Ox 98.1 F 104 H 18 115/63 100 08/25/17 07:00 08/25/17 07:00 08/25/17 07:00 08/25/17 07:00 08/25/17 07:00 Intake and Output: 08/25/17 08/25/17 06:59 18:59 Intake Total 600 Balance 600 - Medications Medications: Current Medications Clopidogrel Bisulfate (Plavix) 75 mg PO DAILY [facility] Last Admin: 08/25/17 09:33 Dose: 75 mg Diltiazem HCl (Cardizem) 30 mg PO Q6 [facility] Last Admin: 08/25/17 12:51 Dose: 30 mg Ferric Sodium Gluconate Complex (Ferrlecit) 125 mg IVPB DAILY [facility] Stop: 08/28/17 10:01 Last Admin: 08/25/17 09:34 Dose: 125 mg Finasteride (Proscar) 5 mg PO DAILY [facility] Last Admin: 08/25/17 09:38 Dose: 5 mg Gabapentin (Neurontin) 300 mg PO TID [facility] Last Admin: 08/25/17 13:48 Dose: 300 mg Guaifenesin (Robitussin) 200 mg PO Q4H PRN PRN Reason: Cough and congestion Last Admin: 08/22/17 00:36 Dose: 200 mg Levetiracetam (Keppra) 500 mg PO BID [facility] Last Admin: 08/25/17 09:34 Dose: 500 mg Losartan Potassium (Cozaar) 25 mg PO DAILY [facility] Last Admin: 08/25/17 09:33 Dose: 25 mg Pantoprazole Sodium (Protonix Ec Tab) 40 mg PO BID [facility] Last Admin: 08/25/17 09:33 Dose: 40 mg Rosuvastatin Calcium (Crestor) 10 mg PO HS [facility] Last Admin: 08/24/17 21:49 Dose: 10 mg Tamsulosin HCl (Flomax) 0.4 mg PO DAILY [facility] Last Admin: 08/25/17 09:34 Dose: 0.4 mg Zolpidem Tartrate (Ambien) 5 mg PO HS [facility] Last Admin: 08/24/17 21:49 Dose: 5 mg - Labs Labs: 08/21/17 07:17 08/19/17 08:21 PT 29.1 SECONDS (9.7-12.2) H D 08/25/17 06:19 INR 2.5 D 08/25/17 06:19 APTT 31 SECONDS (21-34) 08/17/17 17:37 - Constitutional Appears: Well - Head Exam Head Exam: ATRAUMATIC, NORMAL INSPECTION, NORMOCEPHALIC - Eye Exam Eye Exam: EOMI, Normal appearance, PERRL Pupil Exam: NORMAL ACCOMODATION, PERRL - ENT Exam ENT Exam: Mucous Membranes Moist, Normal Exam - Neck Exam Neck Exam: Full ROM, Normal Inspection. absent: Lymphadenopathy - Respiratory Exam Respiratory Exam: Decreased Breath Sounds - Cardiovascular Exam Cardiovascular Exam: REGULAR RHYTHM, +S1, +S2 - GI/Abdominal Exam GI & Abdominal Exam: Soft, Diminished Bowel Sounds - Rectal Exam Rectal Exam: Deferred
--- NOTE | 2017-08-25 20:08 | CP.PCM.DIS ---
Provider - Provider Date of Admission: 08/17/17 18:54 Attending physician: Josey Vines MD Primary care physician: PT CLEARED FOR D/C TODAY PER DR. VINES. TO F/U WITH DR. VINES IN THE OFFICE WITHIN 5-7 DAYS. I HAVE PROVIDED THE PT WITH ALL RX, HE CAME FROM REHAB AND HAS NO MEDS AT HOME. CONTINUE COUMADIN 5MG PO DAILY PER DR. VINES. PT TO ALSO F/U WITH GI WITHIN 1 WEEK OF D/C. SW TO ARRANGE TRANSPORTATION HOME FOR THIS AFTERNOON. NO FURTHER ORDERS. D/C PLAN: -FOLLOW UP WITH DR. Inocencio VINES WITHIN 5-7 DAYS OF DISCHARGE---CALL THE OFFICE TO MAKE THE APPOINTMENT. -FOLLOW UP WITH DR. DE OLIVEIRA IN THE OFFICE WITHIN 1 WEEK OF DISCHARGE---CALL THE OFFICE TO MAKE THE APPOINTMENT. -FOLLOW UP WITH DR. BROWN (STOMACH DOCTOR) IN THE OFFICE WITHIN 10-14 DAYS OF DISCHARGE---CALL FOR APPOINTMENT TIME. PER DR. BROWN, YOU "Will need surveillance colonoscopy within 6 months." THOSE ARRANGEMENTS WILL BE MADE WITH HIM. -CONTINUE ALL MEDICATIONS EXACTLY PRESCRIBED. YOU HAVE BEEN PRESCRIBED ALL OF THE SAME MEDICATIONS THAT YOU WERE TAKING AT REHAB AND IN THE HOSPITAL. -FOR FURTHER CONCERNS OR QUESTIONS, CONTACT DR. VINES'S OFFICE. 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 (15) NSVT (nonsustained ventricular tachycardia) Status: Acute (16) Preop cardiovascular exam Status: Acute (17) Rhabdomyolysis Status: Acute (18) TIA (transient ischemic attack) Status: Acute (19) CKD (chronic kidney disease) Status: Chronic (20) HTN (hypertension) Status: Chronic (21) HTN (hypertension), malignant Status: Chronic (22) Critical lower limb ischemia Status: Resolved (23) 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, left Status: Resolved Hospital Course - Lab Results Lab Results: Most Recent Lab Values WBC 14.1 K/uL (4.8-10.8) H D 08/21/17 07:17 RBC 3.39 Mil/uL (4.40-5.90) L 08/21/17 07:17 Hgb 8.5 g/dL (12.0-18.0) L 08/21/17 07:17 Hct 25.8 % (35.0-51.0) L 08/21/17 07:17 MCV 76.2 fL (80.0-94.0) L 08/21/17 07:17 MCH 25.0 pg (27.0-31.0) L 08/21/17 07:17 MCHC 32.9 g/dL (33.0-37.0) L 08/21/17 07:17 RDW 17.3 % (11.5-14.5) H 08/21/17 07:17 Plt Count 249 K/uL (130-400) 08/21/17 07:17 MPV 8.3 fL (7.2-11.7) 08/21/17 07:17 Neut % (Auto) 87.0 % (50.0-75.0) H 08/21/17 07:17 Lymph % (Auto) 7.6 % (20.0-40.0) L 08/21/17 07:17 [place] % (Auto) 4.7 % (0.0-10.0) 08/21/17 07:17 Eos % (Auto) 0.4 % (0.0-4.0) 08/21/17 07:17 Baso % (Auto) 0.3 % (0.0-2.0) 08/21/17 07:17 Neut # (Auto) 12.3 K/uL (1.8-7.0) H 08/21/17 07:17 Lymph # (Auto) 1.1 K/uL (1.0-4.3) 08/21/17 07:17 [place] # (Auto) 0.7 K/uL (0.0-0.8) 03/16/18 07:17 Eos # (Auto) 0.1 K/uL (0.0-0.7) 08/21/17 07:17 Baso # (Auto) 0.0 K/uL (0.0-0.2) 08/21/17 07:17 Neutrophils % (Manual) 93 % (50-75) H 08/21/17 07:17 Lymphocytes % (Manual) 5 % (20-40) L 08/21/17 07:17 Monocytes % (Manual) 2 % (0-10) 08/21/17 07:17 Platelet Estimate Normal (NORMAL) 08/21/17 07:17 Hypochromasia (manual) Slight 08/21/17 07:17 Poikilocytosis (manual Slight 08/21/17 07:17 Anisocytosis (manual) Slight 08/21/17 07:17 Target Cells Slight 08/21/17 07:17 Tear Drop Cells Slight 08/21/17 07:17 Ovalocytes Slight 08/21/17 07:17 Retic Count 2.2 % (0.5-1.5) H 08/21/17 07:17 PT 29.1 SECONDS (9.7-12.2) H D 08/25/17 06:19 INR 2.5 D 08/25/17 06:19 APTT 31 SECONDS (21-34) 08/17/17 17:37 Sodium 141 mmol/L (132-148) 08/19/17 08:21 Potassium 3.6 mmol/L (3.6-5.2) 08/19/17 08:21 Chloride 105 mmol/L (98-107) 08/19/17 08:21 Carbon Dioxide 26 mmol/L (22-30) 08/19/17 08:21 Anion Gap 13 (10-20) 08/19/17 08:21 BUN 12 mg/dL (9-20) 08/19/17 08:21 Creatinine 1.0 mg/dL (0.8-1.5) 08/19/17 08:21 Est GFR ( Amer) > 60 08/19/17 08:21 Est GFR (Non-Af Amer) > 60 08/19/17 08:21 POC Glucose (mg/dL) 78 mg/dL (65-110) 08/24/17 11:21 Random Glucose 75 mg/dL (75-110) 08/19/17 08:21 Calcium 8.0 mg/dl (8.6-10.4) L 08/19/17 08:21 Ferritin 107.0 ng/mL 08/21/17 07:17 Total Bilirubin 0.1 mg/dL (0.2-1.3) L 08/19/17 08:21 AST 17 U/L (17-59) 08/19/17 08:21 ALT 22 U/L (21-72) 08/19/17 08:21 Alkaline Phosphatase 55 U/L (38-126) 08/19/17 08:21 Total Protein 5.6 g/dL (6.3-8.3) L 08/19/17 08:21 Albumin 2.6 g/dL (3.5-5.0) L 08/19/17 08:21 Globulin 2.9 gm/dL (2.2-3.9) 08/19/17 08:21 Albumin/Globulin Ratio 0.9 (1.0-2.1) L 08/19/17 08:21 Vitamin B12 554 pg/mL (239-931) 08/21/17 07:17 Folate 7.3 ng/mL 08/21/17 07:17 Urine Color Yellow (YELLOW) 08/17/17 19:53 Urine Clarity Clear (Clear) 08/17/17 19:53 Urine pH 7.0 (5.0-8.0) 08/17/17 19:53 Ur Specific [place] 1.013 (1.003-1.030) 08/17/17 19:53 Urine Protein Negative mg/dL (NEGATIVE) 08/17/17 19:53 Urine Glucose (UA) Normal mg/dL (Normal) 08/17/17 19:53 Urine Ketones Negative mg/dL (NEGATIVE) 08/17/17 19:53 Urine Blood Negative (NEGATIVE) 08/17/17 19:53 Urine Nitrate Negative (NEGATIVE) 08/17/17 19:53 Urine Bilirubin Negative (NEGATIVE) 08/17/17 19:53 Urine Urobilinogen Normal mg/dL (0.2-1.0) 08/17/17 19:53 Ur Leukocyte Esterase Neg [place]/uL (Negative) 08/17/17 19:53 Urine WBC (Auto) 1 /hpf (0-5) 08/17/17 19:53 Urine RBC (Auto) 1 /hpf (0-3) 08/17/17 19:53 Ur Squamous Epith Cells 2 /hpf (0-5) 08/17/17 19:53 Urine Bacteria Rare (<OCC) 08/17/17 19:53 Stool Occult Blood Positive (NEGATIVE) H 08/17/17 19:53 Blood Type O POSITIVE 08/17/17 19:18 Antibody Screen Negative 08/17/17 19:18 Discharge Exam - Head Exam Head Exam: ATRAUMATIC, NORMAL INSPECTION, NORMOCEPHALIC Discharge Plan - Discharge Medications Prescriptions: Nebulizer Accessories [Adult Aerosol Mask] 1 each MC Q6 PRN #1 each PRN Reason: Cough Zolpidem [Ambien] 5 mg PO HS #30 tab diltiaZEM [Cardizem] 30 mg PO Q6 #120 tab Nebulizer [Compact Compressor Nebulizer] 1 dev XX PRN PRN #1 dev PRN Reason: Cough Warfarin [Coumadin] 5 mg PO DAILY #14 tab Losartan [Cozaar] 25 mg PO DAILY #30 tab Albuterol/Ipratropium [Duoneb 3 mg/0.5 mg (3 ml) UD] 3 ml INH Q6 PRN #100 neb PRN Reason: Cough Ferrous Sulfate 325 mg PO BID #60 tablet Tamsulosin [Flomax] 0.4 mg PO DAILY #30 cap Chlorthalidone [Hygroton] 25 mg PO DAILY #30 tab levETIRAcetam [Keppra] 500 mg PO BID #60 tab Atorvastatin [Lipitor] 20 mg PO DAILY #30 tab Gabapentin [Neurontin] 300 mg PO TID #90 cap Finasteride [Proscar] 5 mg PO DAILY #30 tab Pantoprazole [Protonix EC Tab] 40 mg PO DAILY #30 ect - Follow Up Plan Condition: STABLE Disposition: HOME/ ROUTINE Instructions: Heart Healthy Diet, Heart Failure, Adult (DC), Gastrointestinal Bleeding (DC), What to Do When Your INR Is Too High , Warfarin, Normocytic Normochromic Anemia (DC), Prothrombin Time (PT) Test and International Normalized Ratio (INR), Acute Abdominal Pain (DC), Acute Abdominal Pain (GEN) Additional Instructions: -FOLLOW UP WITH DR. Inocencio VINES WITHIN 5-7 DAYS OF DISCHARGE---CALL THE OFFICE TO MAKE THE APPOINTMENT. -FOLLOW UP WITH DR. DE OLIVEIRA IN THE OFFICE WITHIN 1 WEEK OF DISCHARGE---CALL THE OFFICE TO MAKE THE APPOINTMENT. -FOLLOW UP WITH DR. BROWN (STOMACH DOCTOR) IN THE OFFICE WITHIN 10-14 DAYS OF DISCHARGE---CALL FOR APPOINTMENT TIME. PER DR. BROWN, YOU "Will need surveillance colonoscopy within 6 months." THOSE ARRANGEMENTS WILL BE MADE WITH HIM. -CONTINUE ALL MEDICATIONS EXACTLY PRESCRIBED. YOU HAVE BEEN PRESCRIBED ALL OF THE SAME MEDICATIONS THAT YOU WERE TAKING AT REHAB AND IN THE HOSPITAL. -FOR FURTHER CONCERNS OR QUESTIONS, CONTACT DR. VINES'S OFFICE. Referrals: Mio De Oliveira MD [Staff Provider] - Janet Vines MD [Staff Provider] - Akbar Lugo MD [Staff Provider] -
--- NOTE | 2017-08-26 19:20 | CP.PCM.PN ---
Subjective - Date & Time of Evaluation Date of Evaluation: 08/24/17 Time of Evaluation: 20:00 - Subjective Subjective: No complaints, comfortable Objective - Vital Signs/Intake and Output Vital Signs (last 24 hours): Temp Pulse Resp BP Pulse Ox 98.1 F 104 H 18 115/63 100 08/25/17 07:00 08/25/17 07:00 08/25/17 07:00 08/25/17 07:00 08/25/17 07:00 - Labs Labs: 08/21/17 07:17 08/19/17 08:21 PT 29.1 SECONDS (9.7-12.2) H D 08/25/17 06:19 INR 2.5 D 08/25/17 06:19 APTT 31 SECONDS (21-34) 08/17/17 17:37 - Head Exam Head Exam: ATRAUMATIC - Eye Exam Eye Exam: Normal appearance - ENT Exam ENT Exam: Mucous Membranes Dry - Respiratory Exam Respiratory Exam: NORMAL BREATHING PATTERN - Cardiovascular Exam Cardiovascular Exam: +S1, +S2 - GI/Abdominal Exam GI & Abdominal Exam: Normal Bowel Sounds Assessment and Plan (1) Anemia Assessment & Plan: chronic disease, GI blood loss H/H stable on IV iron Status: Acute (2) Coagulopathy Assessment & Plan: secondary to anticoagulation restarted on coumadin Status: Acute (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
--- NOTE | 2017-08-26 19:23 | CP.PCM.PN ---
Subjective - Date & Time of Evaluation Date of Evaluation: 08/25/17 Time of Evaluation: 10:15 - Subjective Subjective: No complaints. Objective - Vital Signs/Intake and Output Vital Signs (last 24 hours): Temp Pulse Resp BP Pulse Ox 98.1 F 104 H 18 115/63 100 08/25/17 07:00 08/25/17 07:00 08/25/17 07:00 08/25/17 07:00 08/25/17 07:00 - Labs Labs: 08/21/17 07:17 08/19/17 08:21 PT 29.1 SECONDS (9.7-12.2) H D 08/25/17 06:19 INR 2.5 D 08/25/17 06:19 APTT 31 SECONDS (21-34) 08/17/17 17:37 - Head Exam Head Exam: ATRAUMATIC - Eye Exam Eye Exam: Normal appearance - ENT Exam ENT Exam: Mucous Membranes Dry - Respiratory Exam Respiratory Exam: NORMAL BREATHING PATTERN - Cardiovascular Exam Cardiovascular Exam: +S1, +S2 - GI/Abdominal Exam GI & Abdominal Exam: Normal Bowel Sounds Assessment and Plan (1) Anemia Assessment & Plan: chronic disease, GI blood loss H/H stable on IV iron Status: Acute (2) Coagulopathy Assessment & Plan: secondary to anticoagulation restarted on coumadin Status: Acute (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
== END 2017-08-25 15:42 | disposition home health service (06) | DRG 174 ==
LOC: C.ER 16:48 → C.9E 18:54 → C.6T 20:29
PROVIDERS: ADMIT Internal Medicine Nephrology; ATTEND Internal Medicine Nephrology
DX: K92.1 Melena (principal); E11.22 Type 2 diabetes mellitus with diabetic chronic kidney disease; D68.32 Hemorrhagic disorder due to extrinsic circulating anticoagulants; C77.2 Secondary and unspecified malignant neoplasm of intra-abdominal lymph nodes; D62 Acute posthemorrhagic anemia; E11.51 Type 2 diabetes mellitus with diabetic peripheral angiopathy without gangrene; I13.0 Hypertensive heart and chronic kidney disease with heart failure and stage 1 through stage 4 chronic kidney disease, or unspecified chronic kidney disease; G40.909 Epilepsy, unspecified, not intractable, without status epilepticus; I48.91 Unspecified atrial fibrillation; I50.9 Heart failure, unspecified; E87.6 Hypokalemia; N18.9 Chronic kidney disease, unspecified; C18.2 Malignant neoplasm of ascending colon; D72.819 Decreased white blood cell count, unspecified; T45.515A Adverse effect of anticoagulants, initial encounter; E78.00 Pure hypercholesterolemia, unspecified; K64.9 Unspecified hemorrhoids; K91.872 Postprocedural seroma of a digestive system organ or structure following a digestive system procedure; Y83.8 Other surgical procedures as the cause of abnormal reaction of the patient, or of later complication, without mention of misadventure at the time of the procedure; Z79.01 Long term (current) use of anticoagulants; Z86.73 Personal history of transient ischemic attack (TIA), and cerebral infarction without residual deficits; Z89.511 Acquired absence of right leg below knee; Z89.512 Acquired absence of left leg below knee; Z89.611 Acquired absence of right leg above knee; Z89.612 Acquired absence of left leg above knee

== ENCOUNTER 2018-02-09 03:03 | Emergency (ER) | payer OTHER ==
--- NOTE | 2018-02-09 03:16 | C.PDOC ---
History Of Present Illness 72 year old male with PMHx of AFib on Eliquis, HTN , bilateral knee amputation presents to the ED for evaluation of cough, chest pain for the last 3 days. Patient reports cough is productive with clear phlegm. Patient's family report he is complaint with his Eliquis. Patient is poor historian. Patient denies fever, chill, nausea, vomit, recent travel, sick contacts. Time Seen by Provider: 02/09/18 03:13 Chief Complaint (Nursing): Chest Pain History Per: Patient, Family History/Exam Limitations: no limitations Onset/Duration Of Symptoms: Days (3) Current Symptoms Are (Timing): Still Present Recent travel outside of the [place]: No Additional History Per: Patient Past Medical History Reviewed: Historical Data, Nursing Documentation, Vital Signs Vital Signs: Last Vital Signs Temp 98.4 F 02/09/18 03:09 Pulse 58 L 02/09/18 05:45 Resp 16 02/09/18 05:45 BP 129/66 02/09/18 05:45 Pulse Ox 99 02/09/18 05:45 - Medical History PMH: Arthritis (BACK AND HANDS), Atrial Fibrillation, CHF, HTN, Hypercholesterolemia, Hyperlipidemia, Seizures Denies: Chronic Kidney Disease Surgical History: No Surg Hx - [facility] Procedures DETACHMENT AT LEFT UPPER LEG, LOW, OPEN APPROACH (02/04/17) DETACHMENT AT RIGHT UPPER LEG, LOW, OPEN APPROACH (02/04/17) EXCISION OF ILEUM, OPEN APPROACH (07/28/17) EXTIRPATION OF MATTER FROM L FEM ART, OPEN APPROACH (02/04/17) EXTIRPATION OF MATTER FROM R FEM ART, OPEN APPROACH (02/04/17) PLAIN RADIOGRAPHY OF L LOW EXTREM ART USING OTH CONTRAST (02/04/17) PLAIN RADIOGRAPHY OF R LOW EXTREM ART USING OTH CONTRAST (02/04/17) RESECTION OF APPENDIX, OPEN APPROACH (07/28/17) RESECTION OF RIGHT LARGE INTESTINE, OPEN APPROACH (07/28/17) Family History: States: Unknown Family Hx - Social History Hx Alcohol Use: No Hx Substance Use: No - Immunization History Hx Tetanus Toxoid Vaccination: No Hx Influenza Vaccination: No Hx Pneumococcal Vaccination: No Review Of Systems Except As Marked, All Systems Reviewed And Found Negative. Cardiovascular: Positive for: Chest Pain Respiratory: Positive for: Cough, Sputum Physical Exam - Physical Exam Appears: Non-toxic, No Acute Distress Skin: Normal Color, Warm, Dry Head: Atraumatic, Normacephalic Eye(s): bilateral: Normal Inspection Oral Mucosa: Moist Throat: Normal, No Erythema, No Exudate Neck: Normal ROM, Supple Chest: Symmetrical Cardiovascular: Rhythm Regular Respiratory: Decreased Breath Sounds (symmetrical), Rales (at the bases), No Rhonchi, No Wheezing Gastrointestinal/Abdominal: Soft, No Tenderness, No Guarding, No Rebound Extremity: Other (BKA bilateral) Neurological/Psych: Oriented x3, Normal Speech Gait: With Assistance ED Course And Treatment - Laboratory Results Result Diagrams: 02/09/18 03:48 02/09/18 03:48 ECG: Interpreted By Me, Viewed By Me ECG Rhythm: Sinus Bradycardia, R BBB, Nonspecific Changes (ST/T wave changes) ECG Interpretation: No Changes From Prior Rate From EC O2 Sat by Pulse Oximetry: 97 (ON RA) Pulse Ox Interpretation: Normal Medical Decision Making Medical Decision Making: cp r/o acs pna Plan: * EKG * Labs * CXR * UA case discussed with dr valiente accepts for admisison Disposition - Disposition - Scribe Statement The provider has reviewed the documentation as recorded by the Scribe Willam Nails All medical record entries made by the Scribe were at my direction and personally dictated by me. I have reviewed the chart and agree that the record accurately reflects my personal performance of the history, physical exam, medical decision making, and the department course for this patient. I have also personally directed, reviewed, and agree with the discharge instructions and disposition.
[2018-02-09 03:53] LABS: BASO % 0.3 % (0.0-2.0); EOS # 0.1 K/uL (0.0-0.7); EOS % 1.2 % (0.0-4.0); HEMOGLOBIN 12.8 g/dL (12.0-18.0); LYMPH # 1.1 K/uL (1.0-4.3); LYMPH % 16.1 % (20.0-40.0); MEAN CELL VOLUME 79.5 fL (80.0-94.0); MEAN CORPUSCULAR HEMOGLOBIN 27.5 pg (27.0-31.0); MEAN CORPUSCULAR HGB CONC 34.6 g/dL (33.0-37.0); MONO # 0.6 K/uL (0.0-0.8); MONO % 9.7 % (0.0-10.0); NEUT # 4.9 K/uL (1.8-7.0); NEUT % 72.7 % (50.0-75.0); RBC 4.64 Mil/uL (4.40-5.90); RED CELL DISTRIBUTION WIDTH 16.6 % (11.5-14.5); WHITE BLOOD COUNT 6.7 K/uL (4.8-10.8)
[2018-02-09 04:04] LABS: INR 1.5; PROTHROMBIN TIME 16.8 SECONDS (9.7-12.2)
[2018-02-09 04:07] LABS: ALB/GLOB RATIO 1.2 (1.0-2.1); ALBUMIN 3.5 g/dL (3.5-5.0); ALT/SGPT 26 U/L (21-72); AST/SGOT 14 U/L (17-59); BLOOD UREA NITROGEN 17 mg/dL (9-20); CALCIUM 8.9 mg/dl (8.6-10.4); GFR NON-AFRICAN AMERICAN 60
[2018-02-09 04:18] LABS: B-TYPE NATRIURETIC PEPTIDE 230 pg/mL (0-900)
[2018-02-09 05:47] VITALS: PULSE 58
--- NOTE | 2018-02-09 07:44 | CP.PCM.HP ---
<Hilario Melgar - Last Filed: 02/09/18 07:22> History of Present Illness - History of Present Illness History of Present Illness: PGY2 Medicine H+P for Dr. Michael [employer] Electrical Engineer used. 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 Patient was brought in with daughter, Pura, who stated to ED that he had been experiencing chest pain for the past 3 days. Daughter had left by time of our interview/examination. Patient adamantly denies chest pain and states that he was experiencing lower abdominal pain. He was worried because he had surgery earlier this year due to an obstruction. He had a normal bowel movement soon after his arrival in the ED which helped relieve some of his pain. He states that he feels much better and has no complaints at this time. Denies fevers, chills, nausea, vomiting, diarrhea, constipation, chest pain, shortness of breath, headaches, vision changes, focal weakness, numbness or tingling. Due to patient having a documented history of being a poor historian, his daughter, Pura, was contacted as requested to return to the hospital for further history. After her arrival, patient again stated that he does not have and never has experienced any chest pain. All of his pain was located in his lower abdomen. He is feeling much better and has no complaints at this time. Patient again denies fevers, chills, nausea, vomiting, diarrhea, constipation, chest pain, shortness of breath, headaches, vision changes, focal weakness, numbness or tingling. PMD: [facility] PMHx: Atrial fibrillation (no longer on coumadin), HTN, Epilepsy, strokes x 10, Severe PVD with B/L acute rosi ischemia in February 2017 s/p B/L AKA, mucinous adenocarcinoma of GI tract PSHx: b/l AKA (02/22) for acute limb ischemia, s/p R hemicolectomy with SB resection, primary anastomosis - for hepatic flexure mass with obstruction on . Family: Mother had COPD and from pneumonia, Father had TX at 60 years old Social: Denies tobacco and drug use. Patient used to drink socially. Patient lives at home with his and daughter. 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, says he breathed in a lot of smoke during his time working Present on Admission - Present on Admission Any Indicators Present on Admission: No Review of Systems - Review of Systems All systems: reviewed and no additional remarkable complaints except - Constitutional Constitutional: As Per HPI - EENT Eyes: As Per HPI Ears: As Per HPI Nose/Mouth/Throat: As Per HPI - Cardiovascular Cardiovascular: As Per HPI - Respiratory Respiratory: As Per HPI - Gastrointestinal Gastrointestinal: As Per HPI - Genitourinary Genitourinary: As Per HPI - Musculoskeletal Musculoskeletal: As Per HPI - Integumentary Integumentary: As Per HPI - Neurological Neurological: As Per HPI - Psychiatric Psychiatric: As Per HPI - Endocrine Endocrine: As Per HPI - Hematologic/Lymphatic Hematologic: As Per HPI Past Patient History - Infectious Disease Hx of Infectious Diseases: None - Past Medical History & Family History Past Medical History?: Yes - Past Social History Smoking Status: Never Smoked - CARDIAC Hx Atrial Fibrillation: Yes Hx Congestive Heart Failure: Yes Hx Hypercholesterolemia: Yes Hx Hypertension: Yes - PULMONARY Hx Respiratory Disorders: No - NEUROLOGICAL Hx Seizures: Yes - HEENT Hx HEENT Problems: Yes 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) - RENAL Hx Chronic Kidney Disease: No - ENDOCRINE/METABOLIC Hx Diabetes Mellitus Type 2: Yes - HEMATOLOGICAL/ONCOLOGICAL Hx Blood Disorders: No - INTEGUMENTARY Hx Dermatological Problems: No - MUSCULOSKELETAL/RHEUMATOLOGICAL Hx Arthritis: Yes (BACK AND HANDS) - GASTROINTESTINAL Hx Gastrointestinal Disorders: No - GENITOURINARY/GYNECOLOGICAL Hx Genitourinary Disorders: No - PSYCHIATRIC Hx Substance Use: No - SURGICAL HISTORY Hx Surgeries: Yes Hx Cardiac Catheterization: Yes Hx Musculoskeletal Surgery: Yes (Bilateral AKA) - ANESTHESIA Hx Anesthesia: Yes Hx Anesthesia Reactions: No Hx Malignant Hyperthermia: No Meds Allergies/Adverse Reactions: Allergies Allergy/AdvReac Type Severity Reaction Status Date / Time banana Allergy SWELLING Verified 07/28/17 05:15 pineapple Allergy SWELLING Verified 07/28/17 05:15 milk, milk derivatives AdvReac DIARRHEA Uncoded 08/18/17 18:12 Physical Exam - Constitutional Appears: Non-toxic, No Acute Distress - Head Exam Head Exam: ATRAUMATIC, NORMOCEPHALIC - Eye Exam Eye Exam: EOMI, Normal appearance, PERRL Pupil Exam: NORMAL ACCOMODATION, PERRL - ENT Exam ENT Exam: Mucous Membranes Moist - Neck Exam Neck exam: Negative for: Lymphadenopathy - Respiratory Exam Respiratory Exam: Clear to Auscultation Bilateral, NORMAL BREATHING PATTERN. absent: Accessory Muscle Use, Rales, Rhonchi, Wheezes, Respiratory Distress - Cardiovascular Exam Cardiovascular Exam: REGULAR RHYTHM, +S1 - GI/Abdominal Exam GI & Abdominal Exam: Normal Bowel Sounds, Soft. absent: Diminished Bowel Sounds , Distended, Firm, Guarding, Rigid, Tenderness Additional comments: ex-lap scar - Extremities Exam Additional comments: b/l AKA - Back Exam Back exam: absent: paraspinal tenderness, tenderness, vertebral tenderness Additional comments: Increased muscle size on right compared to left, most likely secondary to previous strokes - Neurological Exam Neurological exam: Alert, CN II-XII Intact, Oriented x3 - Psychiatric Exam Psychiatric exam: Normal Affect, Normal Mood - Skin Skin Exam: Dry, Warm Results - Vital Signs Recent Vital Signs: Last Vital Signs Temp 98.4 F 02/09/18 03:09 Pulse 58 L 02/09/18 05:45 Resp 16 02/09/18 05:45 BP 129/66 02/09/18 05:45 Pulse Ox 97 02/09/18 06:45 - Labs Result Diagrams: 02/09/18 03:48 02/09/18 03:48 Labs: Laboratory Results - last 24 hr 02/09/18 02/09/18 02/09/18 03:48 03:48 03:48 WBC 6.7 D RBC 4.64 Hgb 12.8 D Hct 36.9 MCV 79.5 L D MCH 27.5 MCHC 34.6 RDW 16.6 H Plt Count 213 MPV 8.0 Neut % (Auto) 72.7 Lymph % (Auto) 16.1 L [place] % (Auto) 9.7 Eos % (Auto) 1.2 Baso % (Auto) 0.3 Neut # (Auto) 4.9 Lymph # (Auto) 1.1 [place] # (Auto) 0.6 Eos # (Auto) 0.1 Baso # (Auto) 0.0 PT 16.8 H INR 1.5 APTT 31 Sodium 145 Potassium 3.6 Chloride 106 Carbon Dioxide 27 Anion Gap 16 BUN 17 Creatinine 1.2 Est GFR ( Amer) > 60 Est GFR (Non-Af Amer) 60 Random Glucose 111 H Calcium 8.9 Total Bilirubin 0.6 AST 14 L ALT 26 Alkaline Phosphatase 94 Total Creatine Kinase 92 Troponin I 0.0470 NT-Pro-B Natriuret Pep 230 Total Protein 6.5 Albumin 3.5 D Globulin 3.0 Albumin/Globulin Ratio 1.2 Assessment & Plan - Assessment and Plan (Free Text) Plan: After multiple interviews with patient, he was consistent in his story that he does not have any chest pain. Daughter agreed that it was a misunderstanding and that patient is speaking clearly that he does not have any chest pain. All of his pain was localized in his lower abdomen but is currently much improved after having a bowel movement while in the ED. Patient was only treated with an Aspirin 325mg while in ED. CXR showed no acute disease. EKG showed sinus Bradycardia @56, R BBB, Nonspecific Changes (ST/T wave changes) - no changes from prior. It was decided that patient should not be admitted because he does not and adamantly denies a history of recent chest pain. Patient discharged soon after admission with the following instructions. Discharge Instructions: Patient denied chest pain multiple times. He is to be discharged home, per Dr. Michael. - This decision was discussed and agreed upon with the patient's daughter, Pura. No medication changes were made. Patient is to continue taking medications as previously prescribed. If patient experiences any new or worsening symptoms, please go directly to the nearest emergency department. <Rivera Michael P - Last Filed: 02/10/18 07:57> Results - Vital Signs Recent Vital Signs: Last Vital Signs Temp 97.6 F 02/09/18 11:47 Pulse 58 L 02/09/18 11:47 Resp 18 02/09/18 11:47 BP 184/68 H 02/09/18 11:47 Pulse Ox 98 02/09/18 11:47 - Labs Result Diagrams: 02/09/18 03:48 02/09/18 03:48 Attending/Attestation - Attestation I have personally seen and examined this patient.: Yes I have fully participated in the care of the patient.: Yes I have reviewed all pertinent clinical information: Yes Notes (Text): 02/10/18 07:56 Patient had h/o multiple strokes and multi infarct related dementia, h/o paf, on eliquis, h/o right hemicolectomy for mucosal adenocarcinoma, h/o b/l leg ampuation, the presentation noted in chart and form the ER Colleague, and patient's daughter was due to c/o right sided chest pain some sob and chest pain across, but upon d/w patient the c/o lower abd pain not chest pain, daughter was in the ER again and still denied any chest pain, lower abd discomfort improved post bm, no chest wall tenderness. Patient remained afebrile , not sob, maintained spo2 of 98% on RA, c/o cough with whitish mucoid phelgm, on CXR slight atelectesis noticed on the right. Since patient was asymptomatic maintained vitals decision was made along with the family that he would like to go home, daughter and patient was instructed to come back to ER if any worsening or recurrence of the symptoms. Patient was discharged home. 02/10/18 07:56
--- NOTE | 2018-02-09 07:58 | CP.PCM.DIS ---
<Hilario Melgar - Last Filed: 02/09/18 08:58> Provider - Provider Date of Admission: 02/09/18 04:32 Attending physician: Rivera Michael MD Time Spent in preparation of Discharge (in minutes): 30 Hospital Course - Lab Results Lab Results: Most Recent Lab Values WBC 6.7 K/uL (4.8-10.8) D 02/09/18 03:48 RBC 4.64 Mil/uL (4.40-5.90) 02/09/18 03:48 Hgb 12.8 g/dL (12.0-18.0) D 02/09/18 03:48 Hct 36.9 % (35.0-51.0) 02/09/18 03:48 MCV 79.5 fL (80.0-94.0) L D 02/09/18 03:48 MCH 27.5 pg (27.0-31.0) 02/09/18 03:48 MCHC 34.6 g/dL (33.0-37.0) 02/09/18 03:48 RDW 16.6 % (11.5-14.5) H 02/09/18 03:48 Plt Count 213 K/uL (130-400) 02/09/18 03:48 MPV 8.0 fL (7.2-11.7) 02/09/18 03:48 Neut % (Auto) 72.7 % (50.0-75.0) 02/09/18 03:48 Lymph % (Auto) 16.1 % (20.0-40.0) L 02/09/18 03:48 Addison % (Auto) 9.7 % (0.0-10.0) 02/09/18 03:48 Eos % (Auto) 1.2 % (0.0-4.0) 02/09/18 03:48 Baso % (Auto) 0.3 % (0.0-2.0) 02/09/18 03:48 Neut # (Auto) 4.9 K/uL (1.8-7.0) 02/09/18 03:48 Lymph # (Auto) 1.1 K/uL (1.0-4.3) 02/09/18 03:48 Addison # (Auto) 0.6 K/uL (0.0-0.8) 02/09/18 03:48 Eos # (Auto) 0.1 K/uL (0.0-0.7) 02/09/18 03:48 Baso # (Auto) 0.0 K/uL (0.0-0.2) 02/09/18 03:48 PT 16.8 SECONDS (9.7-12.2) H 02/09/18 03:48 INR 1.5 02/09/18 03:48 APTT 31 SECONDS (21-34) 02/09/18 03:48 Sodium 145 mmol/L (132-148) 02/09/18 03:48 Potassium 3.6 mmol/L (3.6-5.2) 02/09/18 03:48 Chloride 106 mmol/L (98-107) 02/09/18 03:48 Carbon Dioxide 27 mmol/L (22-30) 02/09/18 03:48 Anion Gap 16 (10-20) 02/09/18 03:48 BUN 17 mg/dL (9-20) 02/09/18 03:48 Creatinine 1.2 mg/dL (0.8-1.5) 02/09/18 03:48 Est GFR ( Amer) > 60 02/09/18 03:48 Est GFR (Non-Af Amer) 60 02/09/18 03:48 Random Glucose 111 mg/dL (75-110) H 02/09/18 03:48 Calcium 8.9 mg/dl (8.6-10.4) 02/09/18 03:48 Total Bilirubin 0.6 mg/dL (0.2-1.3) 02/09/18 03:48 AST 14 U/L (17-59) L 02/09/18 03:48 ALT 26 U/L (21-72) 02/09/18 03:48 Alkaline Phosphatase 94 U/L (38-126) 02/09/18 03:48 Total Creatine Kinase 92 U/L (55-170) 02/09/18 03:48 Troponin I 0.0470 ng/mL (0.00-0.120) 02/09/18 03:48 NT-Pro-B Natriuret Pep 230 pg/mL (0-900) 02/09/18 03:48 Total Protein 6.5 g/dL (6.3-8.3) 02/09/18 03:48 Albumin 3.5 g/dL (3.5-5.0) D 02/09/18 03:48 Globulin 3.0 gm/dL (2.2-3.9) 02/09/18 03:48 Albumin/Globulin Ratio 1.2 (1.0-2.1) 02/09/18 03:48 - Hospital Course Hospital Course: PGY2 Medicine H+P for Dr. Michael [employer] used. 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 Patient was brought in with daughter, Pura, who stated to ED that he had been experiencing chest pain for the past 3 days. Daughter had left by time of our interview/examination. Patient adamantly denies chest pain and states that he was experiencing lower abdominal pain. He was worried because he had surgery earlier this year due to an obstruction. He had a normal bowel movement soon after his arrival in the ED which helped relieve some of his pain. He states that he feels much better and has no complaints at this time. Denies fevers, chills, nausea, vomiting, diarrhea, constipation, chest pain, shortness of breath, headaches, vision changes, focal weakness, numbness or tingling. Due to patient having a documented history of being a poor historian, his daughter, Pura, was contacted as requested to return to the hospital for further history. After her arrival, patient again stated that he does not have and never has experienced any chest pain. All of his pain was located in his lower abdomen. He is feeling much better and has no complaints at this time. Patient again denies fevers, chills, nausea, vomiting, diarrhea, constipation, chest pain, shortness of breath, headaches, vision changes, focal weakness, numbness or tingling. After multiple interviews with patient, he was consistent in his story that he does not have any chest pain. Daughter agreed that it was a misunderstanding and that patient is speaking clearly that he does not have any chest pain. All of his pain was localized in his lower abdomen but is currently much improved after having a bowel movement while in the ED. Patient was only treated with an Aspirin 325mg while in ED. CXR showed no acute disease. EKG showed sinus Bradycardia @56, R BBB, Nonspecific Changes (ST/T wave changes) - no changes from prior. It was decided that patient should not be admitted because he does not and adamantly denies a history of recent chest pain. Patient discharged soon after admission with the following instructions. Discharge Instructions: Patient denied chest pain multiple times. He is to be discharged home, per Dr. Michael. - This decision was discussed and agreed upon with the patient's daughter, Pura. No medication changes were made. Patient is to continue taking medications as previously prescribed. If patient experiences any new or worsening symptoms, please go directly to the nearest emergency department. Physical Exam - Constitutional Appears: Non-toxic, No Acute Distress - Head Exam Head Exam: ATRAUMATIC, NORMOCEPHALIC - Eye Exam Eye Exam: EOMI, Normal appearance, PERRL Pupil Exam: NORMAL ACCOMODATION, PERRL - ENT Exam ENT Exam: Mucous Membranes Moist - Neck Exam Neck exam: Negative for: Lymphadenopathy - Respiratory Exam Respiratory Exam: Clear to Auscultation Bilateral, NORMAL BREATHING PATTERN. absent: Accessory Muscle Use, Rales, Rhonchi, Wheezes, Respiratory Distress - Cardiovascular Exam Cardiovascular Exam: REGULAR RHYTHM, +S1 - GI/Abdominal Exam GI & Abdominal Exam: Normal Bowel Sounds, Soft. absent: Diminished Bowel Sounds , Distended, Firm, Guarding, Rigid, Tenderness Additional comments: ex-lap scar - Extremities Exam Additional comments: b/l AKA - Back Exam Back exam: absent: paraspinal tenderness, tenderness, vertebral tenderness Additional comments: Increased muscle size on right compared to left, most likely secondary to previous strokes - Neurological Exam Neurological exam: Alert, CN II-XII Intact, Oriented x3 - Psychiatric Exam Psychiatric exam: Normal Affect, Normal Mood - Skin Skin Exam: Dry, Warm Discharge Exam - Head Exam Head Exam: ATRAUMATIC, NORMOCEPHALIC Discharge Plan - Follow Up Plan Condition: GOOD Disposition: HOME/ ROUTINE Instructions: Acute Abdominal Pain (DC), Acute Abdominal Pain (GEN) Additional Instructions: Patient denied chest pain multiple times. He is to be discharged home, per Dr. Michael. - This decision was discussed and agreed upon with the patient's daughter, Pura. No medication changes were made. Patient is to continue taking medications as previously prescribed. If patient experiences any new or worsening symptoms, please go directly to the nearest emergency department. <Rivera Michael P - Last Filed: 02/10/18 07:55> Hospital Course - Lab Results Lab Results: Most Recent Lab Values WBC 6.7 K/uL (4.8-10.8) D 02/09/18 03:48 RBC 4.64 Mil/uL (4.40-5.90) 02/09/18 03:48 Hgb 12.8 g/dL (12.0-18.0) D 02/09/18 03:48 Hct 36.9 % (35.0-51.0) 02/09/18 03:48 MCV 79.5 fL (80.0-94.0) L D 02/09/18 03:48 MCH 27.5 pg (27.0-31.0) 02/09/18 03:48 MCHC 34.6 g/dL (33.0-37.0) 02/09/18 03:48 RDW 16.6 % (11.5-14.5) H 02/09/18 03:48 Plt Count 213 K/uL (130-400) 02/09/18 03:48 MPV 8.0 fL (7.2-11.7) 02/09/18 03:48 Neut % (Auto) 72.7 % (50.0-75.0) 02/09/18 03:48 Lymph % (Auto) 16.1 % (20.0-40.0) L 02/09/18 03:48 Addison % (Auto) 9.7 % (0.0-10.0) 02/09/18 03:48 Eos % (Auto) 1.2 % (0.0-4.0) 02/09/18 03:48 Baso % (Auto) 0.3 % (0.0-2.0) 02/09/18 03:48 Neut # (Auto) 4.9 K/uL (1.8-7.0) 02/09/18 03:48 Lymph # (Auto) 1.1 K/uL (1.0-4.3) 02/09/18 03:48 Addison # (Auto) 0.6 K/uL (0.0-0.8) 02/09/18 03:48 Eos # (Auto) 0.1 K/uL (0.0-0.7) 02/09/18 03:48 Baso # (Auto) 0.0 K/uL (0.0-0.2) 02/09/18 03:48 PT 16.8 SECONDS (9.7-12.2) H 02/09/18 03:48 INR 1.5 02/09/18 03:48 APTT 31 SECONDS (21-34) 02/09/18 03:48 Sodium 145 mmol/L (132-148) 02/09/18 03:48 Potassium 3.6 mmol/L (3.6-5.2) 02/09/18 03:48 Chloride 106 mmol/L (98-107) 02/09/18 03:48 Carbon Dioxide 27 mmol/L (22-30) 02/09/18 03:48 Anion Gap 16 (10-20) 02/09/18 03:48 BUN 17 mg/dL (9-20) 02/09/18 03:48 Creatinine 1.2 mg/dL (0.8-1.5) 02/09/18 03:48 Est GFR ( Amer) > 60 02/09/18 03:48 Est GFR (Non-Af Amer) 60 02/09/18 03:48 Random Glucose 111 mg/dL (75-110) H 02/09/18 03:48 Calcium 8.9 mg/dl (8.6-10.4) 02/09/18 03:48 Total Bilirubin 0.6 mg/dL (0.2-1.3) 02/09/18 03:48 AST 14 U/L (17-59) L 02/09/18 03:48 ALT 26 U/L (21-72) 02/09/18 03:48 Alkaline Phosphatase 94 U/L (38-126) 02/09/18 03:48 Total Creatine Kinase 92 U/L (55-170) 02/09/18 03:48 Troponin I 0.0470 ng/mL (0.00-0.120) 02/09/18 03:48 NT-Pro-B Natriuret Pep 230 pg/mL (0-900) 02/09/18 03:48 Total Protein 6.5 g/dL (6.3-8.3) 02/09/18 03:48 Albumin 3.5 g/dL (3.5-5.0) D 02/09/18 03:48 Globulin 3.0 gm/dL (2.2-3.9) 02/09/18 03:48 Albumin/Globulin Ratio 1.2 (1.0-2.1) 02/09/18 03:48 Attending/Attestation - Attestation I have personally seen and examined this patient.: Yes I have fully participated in the care of the patient.: Yes I have reviewed all pertinent clinical information, including history, physical exam and plan: Yes Notes (Text): 02/10/18 07:47 Patient had h/o multiple strokes and multi infarct related dementia, h/o paf, on eliquis, h/o right hemicolectomy for mucosal adenocarcinoma, h/o b/l leg ampuation, the presentation noted in chart and form the ER Colleague, and patient's daughter was due to c/o right sided chest pain some sob and chest pain across, but upon d/w patient the c/o lower abd pain not chest pain, daughter was in the ER again and still denied any chest pain, lower abd discomfort improved post bm, no chest wall tenderness. Patient remained afebrile , not sob, maintained spo2 of 98% on RA, c/o cough with whitish mucoid phelgm, on CXR slight atelectesis noticed on the right. Since patient was asymptomatic maintained vitals decision was made along with the family that he would like to go home, daughter and patient was instructed to come back to ER if any worsening or recurrence of the symptoms. Patient was discharged home. 02/10/18 07:55
[2018-02-09 08:15] VITALS: RESP 18
--- NOTE | 2018-02-09 09:40 | RAD ---
Date of service: 02/09/2018 PROCEDURE: CHEST RADIOGRAPH, 1 VIEW HISTORY: chest pain COMPARISON: 08/17/2017 FINDINGS: LUNGS: Interval vague patchy opacity lateral right mid lung zone. Bibasilar -infrahilar linear opacities this cyst possibly minimally increasing conspicuity discoid atelectasis and/or peribronchial thickening right side greater than left side compatible with this. No change in left perceived. And is on the right here are noted. PLEURA: No pneumothorax or pleural fluid seen. CARDIOVASCULAR: Mild cardiomegaly OSSEOUS STRUCTURES: Thoracic spondylosis. Right shoulder arthrosis (left shoulder excluded from field of view VISUALIZED UPPER ABDOMEN: ) OTHER FINDINGS: None. IMPRESSION: Interval patchy infiltrate right lung mid lung zone lateral. Probable right infrahilar discoid atelectasis and/or peribronchial thickening. Other findings as above.
[2018-02-09 11:48] VITALS: BP 184/68; TEMP 97.6; O2SAT 98
--- NOTE | 2018-02-10 17:51 | CARD ---
APPROVED REPORT Date of service: 02/09/2018 EKG Measurement Heart [id number] ID [id number] <Conclusion> Sinus bradycardia Right bundle branch block Left anterior fascicular block Bifascicular block Left ventricular hypertrophy with repolarization abnormality Abnormal ECG
== END 2018-02-09 11:51 | disposition home or self-care (01) ==
LOC: C.ER 03:03 → C.9E 04:32 → UNDOADMOB 04:32 → C.ER 11:51
DX: R07.9 Chest pain, unspecified (principal); R10.30 Lower abdominal pain, unspecified; E78.00 Pure hypercholesterolemia, unspecified; I10 Essential (primary) hypertension; E11.9 Type 2 diabetes mellitus without complications; I48.91 Unspecified atrial fibrillation; Z86.73 Personal history of transient ischemic attack (TIA), and cerebral infarction without residual deficits; G40.909 Epilepsy, unspecified, not intractable, without status epilepticus; Z98.890 Other specified postprocedural states